=== PATIENT | female | born 1970 | race Caucasian/White ===

== ENCOUNTER 2017-08-01 19:48 | Emergency (ER) | payer SELFPAY ==
--- OUTSIDE RECORDS SUMMARY | 2017-08-01 19:52 | XMS REPORT ---
:1970 [facility] Address [address] [place] [address] Care Team Providers Name Role Phone UNKNOWN, REFFERING Primary Care Provider Unavailable Problems This patient has no known problems. Allergies, Adverse Reactions, Alerts This patient has no known allergies or adverse reactions. Medications This patient has no known medications. Encounters Start End Encounter Admission Attending Care Care Encounter Date/Time Date/Time Type Type Clinicians Facility Department ID 2017-07-02 2017-07-02 Emergency E [facility] MED [id number] 08:16:00 08:16:00
--- OUTSIDE RECORDS SUMMARY | 2017-08-01 19:52 | XMS REPORT | Clinical Summary ---
:1970 Author Organization [facility] Address [address] [place] [address] Phone Care Team Providers Name Role Phone Unavailable Primary Care Provider Unavailable Allergies No Known Allergies Current Medications Prescription Sig. Disp. Refills Start Date End Date Status ondansetron Take 1 tablet 30 tablet 0 07/06/2017 07/13/2017 (ZOFRAN-ODT) 8 MG (8 mg total) disintegrating tablet by mouth 2 (two) times daily as needed for Nausea for up to 7 days. famotidine (PEPCID) 40 Take 1 tablet 5 tablet 0 07/06/2017 07/11/2017 MG tablet (40 mg total) by mouth daily for 5 doses. Active Problems Not on file Encounters Date Type Specialty Care Team Description 07/06/2017 Emergency Emergency Medicine Jonathon Patel abdominal pain MD Dylan (Primary Dx);Nausea;Acute constipation;Acute superficial gastritis without hemorrhage after 07/31/2016 Social History Tobacco Use Types Packs/Day Years Used Date Current Every Day Smoker Alcohol Use Drinks/Week oz/Week Comments Yes Sex Assigned at Date Recorded Not on file Last Filed Vital Signs Vital Sign Reading Time Taken Blood Pressure 107/69 07/06/2017 8:54 AM CDT Pulse 53 07/06/2017 8:54 AM CDT Temperature 36.4 C (97.6 F) 07/06/2017 8:54 AM CDT Respiratory Rate 18 07/06/2017 8:54 AM CDT Oxygen Saturation 100% 07/06/2017 8:54 AM CDT Inhaled Oxygen Concentration - - Weight 47.6 kg (105 lb) 07/06/2017 4:13 AM CDT Height 160 cm (5' 3") 07/06/2017 4:13 AM CDT Body Mass Index 18.6 07/06/2017 4:13 AM CDT Plan of Treatment Not on file Results Not on fileafter 07/31/2016
--- OUTSIDE RECORDS SUMMARY | 2017-08-01 19:52 | XMS REPORT | Clinical Summary ---
:1970 Author Organization [facility] Address [address] [place] [address] Care Team Providers Name Role Phone Asked, No Pcp Primary Care Provider Unavailable Allergies No Known Allergies Current Medications Prescription Sig. Disp. Refills Start Date End Date Status ciprofloxacin (CIPRO) Take 1 tablet 14 tablet 0 07/11/2017 07/18/2017 500 MG tablet (500 mg total) by mouth 2 (two) times a day for 7 days. Active Problems Not on file Encounters Date Type Specialty Care Team Description 07/11/2017 Emergency Emergency Medicine Alexandru Hameed Acute UTI (Primary Dx ); MD Dameon Abdominal pain, unspecified abdominal location 07/06/2017 Emergency Emergency Medicine Vishal Brown Acute pain of right knee MD Luisito (Primary Dx) after 07/31/2016 Social History Tobacco Use Types Packs/Day Years Used Date Current Every Day Smoker Cigarettes 0.5 Smokeless Tobacco: Never Used Alcohol Use Drinks/Week oz/Week Comments No Sex Assigned at Date Recorded Not on file Last Filed Vital Signs Vital Sign Reading Time Taken Blood Pressure 119/65 07/11/2017 3:15 AM CDT Pulse 66 07/11/2017 3:15 AM CDT Temperature 36.8 C (98.2 F) 07/11/2017 1:28 AM CDT Respiratory Rate 18 07/11/2017 1:28 AM CDT Oxygen Saturation 100% 07/11/2017 3:15 AM CDT Inhaled Oxygen Concentration - - Weight - - Height 160 cm (5' 3") 07/11/2017 1:28 AM CDT Body Mass Index - - Plan of Treatment Health Maintenance Due Date Last Done Comments PAP SMEAR 1991 INFLUENZA VACCINE 11/02/[address] Renal Stone Protocol (07/11/2017 2:53 AM) Specimen Performing Laboratory [facility] [address] [place] [address] [facility] [address] RENAL STONE PROTOCOL CLINICAL INDICATION:llq abd pain TECHNIQUE: Multidetector CT examination of the abdomen and pelvis performed without intravenous contrast per renal stone protocol. CT imaging was performed with iterative reconstruction technique and/or automated exposure control to reduce radiation dose. COMPARISON:None. FINDINGS: Evaluation is significantly limited secondary to the lack of intravenous contrast and the paucity of intra-abdominal fat. LUNG BASES:Clear. LIVER:Normal. BILIARY:Normal. SPLEEN:Normal. PANCREAS:Normal. ADRENALS:Normal. KIDNEYS: No mass or hydronephrosis. GI:Large and small bowel are normal in caliber.There are no inflammatory changes.Appendix is visualized and without inflammation. There is a 6 mm metallic density within the lower abdomen that appears to be located within the cecum. VASCULAR:Unremarkable LYMPH NODES:No enlarged lymph nodes in the abdomen or pelvis. PELVIS:The urinary bladder is decompressed, limiting evaluation. The uterus is without abnormality. BONES:No acute osseous abnormalities. OTHER:There is no ascites or pneumoperitoneum. IMPRESSION: Please note that evaluation is limited secondary to the lack of intravenous contrast and the paucity of intra-abdominal fat. 1. No acute intra-abdominal abnormality is identified. 2.There is a 6 mm metallic density within the lower abdomen that appears to be located within the cecum, this is of unclear etiology and clinical significance. [facility]-[id number] Procedure Note Interface, Radiology Results Incoming - 07/11/2017 3:[address] RENAL STONE PROTOCOL CLINICAL INDICATION: llq abd pain TECHNIQUE: Multidetector CT examination of the abdomen and pelvis performed without intravenous contrast per renal stone protocol. CT imaging was performed with iterative reconstruction technique and/or automated exposure control to reduce radiation dose. COMPARISON: None. FINDINGS: Evaluation is significantly limited secondary to the lack of intravenous contrast and the paucity of intra-abdominal fat. LUNG BASES: Clear. LIVER: Normal. BILIARY: Normal. SPLEEN: Normal. PANCREAS: Normal. ADRENALS: Normal. KIDNEYS: No mass or hydronephrosis. GI: Large and small bowel are normal in caliber. There are no inflammatory changes. Appendix is visualized and without inflammation. There is a 6 mm metallic density within the lower abdomen that appears to be located within the cecum. VASCULAR: Unremarkable LYMPH NODES: No enlarged lymph nodes in the abdomen or pelvis. PELVIS: The urinary bladder is decompressed, limiting evaluation. The uterus is without abnormality. BONES: No acute osseous abnormalities. OTHER: There is no ascites or pneumoperitoneum. IMPRESSION: Please note that evaluation is limited secondary to the lack of intravenous contrast and the paucity of intra-abdominal fat. 1. No acute intra-abdominal abnormality is identified. 2.There is a 6 mm metallic density within the lower abdomen that appears to be located within the cecum, this is of unclear etiology and clinical significance. [facility]-[id number] hCG qualitative, urine screen (07/11/2017 2:29 AM) Component Value Ref Range hCG qualitative, urine NegativeComment: Sensitivity of HCG test: 25 mIU/mL Specimen Performing Laboratory Urine [facility] DEPARTMENT OF PATHOLOGY AND [facility] MEDICINE [address] [place] [id number] Urinalysis screen and microscopy, with reflex to culture (07/11/2017 1:57 AM) Component Value Ref Range Specimen site Random void Color, UA Red Appearance, UA Cloudy Specific gravity, UA 1.018 1.001 - 1.035 pH, UA 6.0 5.0 - 8.5 Protein, UA 1+ (A) Negative Glucose, UA Negative Negative Ketones, UA Negative Negative Bilirubin, UA Negative Negative Blood, UA Moderate (A) Negative Nitrite, UA Positive (A) Negative Urobilinogen, UA 2.0 (A) <2.0 Leukocyte esterase, UA Large (A) Negative Epithelial cells, UA 3 /HPF WBC, UA >180 (H) 0 - 4 /HPF RBC, UA 7 (H) 0 - 5 /HPF Bacteria, UA Many (A) None seen Yeast, UA None seen Yeast with pseudohyphae, UA None seen Specimen Performing Laboratory Urine [facility] DEPARTMENT OF PATHOLOGY AND GENOMIC MEDICINE [address] [place] [address] Gram stain (07/11/2017 1:57 AM) Component Value Ref Range Gram stain result Many WBC's Many Gram positive cocci in clusters Comment: Specimen Information Specimen Source: Urine Specimen Site: Random void Specimen Performing Laboratory Urine - Random void [facility] DEPARTMENT OF PATHOLOGY AND GENOMIC MEDICINE [address] [place] [phone] Urine culture (07/11/2017 1:57 AM) Component Value Ref Range Urine culture isolate Staphylococcus aureus 10-5 cfu/ml This organism is Methicillin Sensitive. (A) Comment: Specimen Information Specimen Source: Urine Specimen Site: Random void Specimen Performing Laboratory Urine - Random void [facility] DEPARTMENT OF PATHOLOGY AND GENOMIC MEDICINE [address] [place] [phone] Organism Antibiotic Method Susceptibility Staphylococcus aureus Ampicillin RAH mcg/mL: Resistant Staphylococcus aureus Clindamycin RAH <=0.5 mcg/mL: Susceptible Staphylococcus aureus Erythromycin RAH <=0.5 mcg/mL: Susceptible Staphylococcus aureus Nitrofurantoin RAH <=16 mcg/mL: Susceptible Staphylococcus aureus Levofloxacin RAH <=1 mcg/mL: Susceptible Staphylococcus aureus Linezolid RAH 2 mcg/mL: Susceptible Staphylococcus aureus Oxacillin RAH 0.5 mcg/mL: Susceptible Staphylococcus aureus Penicillin G RAH >1 mcg/mL: Resistant Staphylococcus aureus Rifampin RAH <=0.5 mcg/mL: Susceptible Staphylococcus aureus Trimethoprim/Sulfamethoxazol RAH <=0.5/9.5 mcg/mL: e Susceptible Staphylococcus aureus Tetracycline RAH <=0.5 mcg/mL: Susceptible Staphylococcus aureus Vancomycin RAH 1 mcg/mL: Susceptible XR Knee 1 Or 2 Vw Right (07/06/2017 2:34 AM) Specimen Performing Laboratory [facility] [address] [place] [id number] Narrative EXAM:XR KNEE 1 OR 2 VW RIGHT CLINICAL HISTORY:RECENT TRAUMAKNEE COMPARISON:None. IMPRESSION: 1.No evidence of acute displaced right knee fracture or dislocation. No significant joint effusion. Question of mild medial soft tissue swelling. [facility]-[id number] Procedure Note Interface, Radiology Results Incoming - 07/06/2017 2:38 AM CDT EXAM: XR KNEE 1 OR 2 VW RIGHT CLINICAL HISTORY: RECENT TRAUMA KNEE COMPARISON: None. IMPRESSION: 1. No evidence of acute displaced right knee fracture or dislocation. No significant joint effusion. Question of mild medial soft tissue swelling. [facility]-[id number] after 07/31/2016
[2017-08-01 21:40] LABS: Urine Blood 2+ (NEG); Urine Glucose NEGATIVE (NEG); Urine Protein NEGATIVE (NEG); Urine pH 5.5 (5.0-7.0)
[2017-08-01 23:04] LABS: Absolute Lymphocytes (CBC) 1.6 K/uL (0.7-4.9); Absolute Monocytes 0.7 K/uL (0.1-1.3); Absolute Neutrophil 6.8 K/uL (1.8-8.0); Basophils % 0.4 % (0-1.3); Eosinophils % 0.3 % (0-4.4); Hematocrit 33.7 % (36.0-45.0); Lymphocytes % 17.1 % (15.3-44.8); MPV 7.9 fL (7.6-11.3); Monocytes % 7.7 % (3.3-12.3); RBC Red Blood Cell Count 3.91 M/uL (3.86-4.86)
[2017-08-01 23:16] LABS: Bicarbonate 25 mEq/L (21-31); Glucose Level 98 mg/dL (65-120); Lipase 19 U/L (22-51); Sodium Level 135 mEq/L (135-145)
[2017-08-01 23:22] LABS: ALT/SGPT 19 IU/L (10-60); AST/SGOT 19 IU/L (10-42); Albumin 3.4 g/dL (3.2-5.5); Alkaline Phosphatase 43 IU/L (42-121); Amylase Level 53 U/L (28-100); BUN Blood Urea Nitrogen 11 mg/dL (6-20); Bilirubin Direct 0.1 mg/dL (0-0.2); Bilirubin Total 0.3 mg/dL (0.3-1.2)
--- NOTE | 2017-08-01 23:39 | EDPHYS ---
Physician Documentation [facility] Name: Dayami Espinosa Age: 47 yrs Sex: Female : 1970 Arrival Date: 08/01/2017 Time: 19:57 Bed 17 Private MD: ED Physician Derrek Martines HPI: 08/01 22:59 This 47 yrs old Female presents to ER via Ambulatory with complaints of kb Abdominal Pain. 22:59 The patient presents with abdominal pain in the left lower quadrant. Onset: The kb symptoms/episode began/occurred 4 month(s) ago. The symptoms do not radiate. Associated signs and symptoms: none. The symptoms are described as constant. Modifying factors: The symptoms are alleviated by nothing, the symptoms are aggravated by nothing. Severity of pain: At its worst the pain was mild moderate in the emergency department the pain is unchanged. The patient has not experienced similar symptoms in the past. The patient has been recently seen by a physician:. Pt states she has had LLQ pain for 4 months. Has been seen multiple times for this pain and told she had a cyst, but it hasn't gotten better. 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 - Social history:: Smoking status: Patient uses tobacco products, smokes one-half pack cigarettes per day. ROS: 22:59 Constitutional: Negative for fever, chills, and weight loss, Cardiovascular: Negative kb for chest pain, palpitations, and edema, Respiratory: Negative for shortness of breath, cough, wheezing, and pleuritic chest pain, Back: Negative for injury and pain, : Negative for injury, bleeding, discharge, and swelling, MS/Extremity: Negative for injury and deformity, Skin: Negative for injury, rash, and discoloration, Neuro: Negative for headache, weakness, numbness, tingling, and seizure. 22:59 Abdomen/GI: Positive for abdominal pain, Negative for nausea, vomiting, and diarrhea, constipation, abdominal cramps, abdominal distension, anorexia. Exam: 22:59 Constitutional: This is a well developed, well nourished patient who is awake, alert, kb and in no acute distress. Head/Face: Normocephalic, atraumatic. Chest/axilla: Normal chest wall appearance and motion. Nontender with no deformity. No lesions are appreciated. Cardiovascular: Regular rate and rhythm with a normal S1 and S2. No gallops, murmurs, or rubs. Normal PMI, no JVD. No pulse deficits. Respiratory: Lungs have equal breath sounds bilaterally, clear to auscultation and percussion. No rales, rhonchi or wheezes noted. No increased work of breathing, no retractions or nasal flaring. Abdomen/GI: Soft, non-tender, with normal bowel sounds. No distension or tympany. No guarding or rebound. No evidence of tenderness throughout. Back: No spinal tenderness. No costovertebral tenderness. Full range of motion. Skin: Warm, dry with normal turgor. Normal color with no rashes, no lesions, and no evidence of cellulitis. MS/ Extremity: Pulses equal, no cyanosis. Neurovascular intact. Full, normal range of motion. Neuro: Awake and alert, GCS 15, oriented to person, place, time, and situation. Cranial nerves II-XII grossly intact. Motor strength 5/5 in all extremities. Sensory grossly intact. Cerebellar exam normal. Normal gait. Vital Signs: 20:07 BP 103 / 74; Pulse 77; Resp 18; Temp 98.6; Pulse Ox 100% on R/A; Weight 46.72 kg; aa1 Height 5 ft. 3 in. (160.02 cm); Pain 9/10; 21:41 BP 110 / 73; Pulse 67; Resp 18; Pulse Ox 100% on R/A; mt 23:08 BP 100 / 66; Pulse 72; Resp 16; Pulse Ox 99% on R/A; mt 20:07 Body Mass Index 18.25 (46.72 kg, 160.02 cm) aa1 MDM: 22:36 Patient medically screened. kb 22:59 Data reviewed: vital signs, nurses notes. Data interpreted: Pulse oximetry: on room air kb is 100 %. Interpretation: normal. 23:38 Counseling: I had a detailed discussion with the patient and/or guardian regarding: the kb historical points, exam findings, and any diagnostic results supporting the discharge/admit diagnosis, lab results, the need for outpatient follow up, a family practitioner, to return to the emergency department if symptoms worsen or persist or if there are any questions or concerns that arise at home. 08/01 21:10 Order name: Urine Dipstick--Ancillary (enter results); Complete Time: 22:35 ak1 08/01 21:10 Order name: Urine --Ancillary (enter results); Complete Time: 22:35 ak1 08/01 22:35 Order name: Amylase, Serum; Complete Time: 23:37 kb 08/01 22:35 Order name: Basic Metabolic Panel; Complete Time: 23:37 kb 08/01 22:35 Order name: CBC with Diff; Complete Time: 23:12 kb 08/01 22:35 Order name: Hepatic Function; Complete Time: 23:37 kb 08/01 22:35 Order name: Lipase; Complete Time: 23:37 kb 08/01 22:35 Order name: IV Saline Lock; Complete Time: 22:53 kb 08/01 22:35 Order name: Labs collected and sent; Complete Time: 22:53 kb Administered Medications: No medications were administered Disposition: 08/02 00:13 Co-signature as Attending Physician, Derrek Martines MD. genaro Disposition: 08/01/17 23:38 Discharged to Home. Impression: Lower abdominal pain, unspecified. - Condition is Stable. - Discharge Instructions: Abdominal Pain, Adult, [id number]. - Medication Reconciliation Form, Thank You Letter, Antibiotic Education, Prescription Opioid Use form. - Follow up: Private Physician; When: 2 - 3 days; Reason: Recheck today's complaints, Continuance of care, Re-evaluation by your physician. Follow up: Emergency Department; When: As needed; Reason: Worsening of condition. Signatures: Dispatcher [employer] Basia Quigley, MARIELY GARCIA-Cecilia Lehman, RN RN aa1 Derrek Martines MD MD pkJesus Butler, RN RN bp
--- NOTE | 2017-08-01 23:39 | ER ---
Nurse's Notes [facility] Name: Dayami Espinosa Age: 47 yrs Sex: Female : 1970 Arrival Date: 08/01/2017 Time: 19:57 Bed 17 Private MD: Diagnosis: Lower abdominal pain, unspecified Presentation: 08/01 20:04 Presenting complaint: Patient states: lower abd pain for past several months. States, aa1 "It's been constant for months and I've just been fighting it.". Transition of care: patient was not received from another setting of care. Onset of symptoms was April 2017. Initial Sepsis Screen: Does the patient meet any 2 criteria? No. Patient's initial sepsis screen is negative. Does the patient have a suspected source of infection? No. Patient's initial sepsis screen is negative. Care prior to arrival: None. 20:04 Method Of Arrival: Ambulatory aa1 20:04 Acuity: JAZMIN 3 aa1 Triage Assessment: 20:07 General: Appears in no apparent distress. comfortable, Behavior is calm, cooperative, aa1 appropriate for age. 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 - Social history:: Smoking status: Patient uses tobacco products, smokes one-half pack cigarettes per day. Screenin:30 Abuse screen: Denies threats or abuse. Denies injuries from another. Nutritional bp screening: No deficits noted. Tuberculosis screening: No symptoms or risk factors identified. Fall Risk None identified. Assessment: 21:30 General: Appears in no apparent distress. comfortable, unkempt, Behavior is agitated, bp uncooperative, PT MINIMALLY COOPERATIVE, STATING SHE DOES NOT WANT VITALS OR OTHER ACTIVITIES, JUST TO SLEEP. Pain: Complains of pain in abdomen. Neuro: Level of Consciousness is awake, alert, obeys commands, Oriented to person, place, time, situation, Appropriate for age. Cardiovascular: No deficits noted. Respiratory: Airway is patent Respiratory effort is even, unlabored, Respiratory pattern is regular, symmetrical. GI: Bowel sounds present X 4 quads. Abd is soft X 4 quads. : No signs and/or symptoms were reported regarding the genitourinary system. EENT: No deficits noted. Derm: No deficits noted. Musculoskeletal: Circulation, motion, and sensation intact. Range of motion: intact in all extremities. 08/02 00:09 Reassessment: PT D/C HOME AMBULATORY, DX WITH NONSPECIFIC ABDOMINAL PAIN. bp Vital Signs: 08/01 20:07 BP 103 / 74; Pulse 77; Resp 18; Temp 98.6; Pulse Ox 100% on R/A; Weight 46.72 kg; aa1 Height 5 ft. 3 in. (160.02 cm); Pain 9/10; 21:41 BP 110 / 73; Pulse 67; Resp 18; Pulse Ox 100% on R/A; mt 23:08 BP 100 / 66; Pulse 72; Resp 16; Pulse Ox 99% on R/A; mt 20:07 Body Mass Index 18.25 (46.72 kg, 160.02 cm) aa1 ED Course: 19:57 Patient arrived in ED. al2 20:06 Triage completed. aa1 20:07 Arm band placed on left wrist. Patient placed in waiting room, Patient notified of wait aa1 time. 21:30 Jesus Durant, BENI is Primary Nurse. bp 21:30 Patient has correct armband on for positive identification. Bed in low position. Call bp light in reach. Side rails up X2. 22:35 Basia Lopez FNP-C is [facility] kb 22:35 Derrek Martines MD is Attending Physician. kb 22:53 Inserted saline lock: 20 gauge in right antecubital area, using aseptic technique. bp Blood collected. 08/02 00:09 No provider procedures requiring assistance completed. IV discontinued, intact, bp bleeding controlled, No redness/swelling at site. Pressure dressing applied. Administered Medications: No medications were administered Outcome: 08/01 23:38 Discharge ordered by . brie 08/02 00:10 Discharged to home ambulatory, with family. bp Condition: stable Discharge instructions given to patient, Instructed on discharge instructions, follow up and referral plans. Demonstrated understanding of instructions, follow-up care. 00:10 Patient left the ED. bp Signatures: Basia Lopez FNP-C SAUSAGE SMOKER-Ckb Cecilia Amezquita, RN RN aa1 Carolina Monet mt, Brian, RN RN bp Yoselin, Angeles reeder
== END 2017-08-02 00:10 | disposition home or self-care (01) ==
LOC: ER 19:48
DX: R10.32 Left lower quadrant pain (principal)
CPT/HCPCS: 36415; 80048; 80076; 81003; 81025; 82150; 83690; 85025; 99283

== ENCOUNTER 2017-08-05 16:03 | Emergency (ER) | payer SELFPAY ==
--- OUTSIDE RECORDS SUMMARY | 2017-08-05 16:05 | XMS REPORT | Clinical Summary ---
:1970 Author Organization [facility] Address [address] [place] [address] Care Team Providers Name Role Phone Asked, [...] right knee MD Luisito (Primary Dx) after 08/04/2016 Social History Tobacco Use Types Packs/Day Years [...] Protocol (07/11/2017 2:53 AM) Specimen Performing Laboratory [facility] [address] [place] [address] [facility] [address] RENAL STONE PROTOCOL CLINICAL INDICATION:llq abd [...] is of unclear etiology and clinical significance. [facility]-[id number] Procedure Note Interface, Radiology Results Incoming - [...] is of unclear etiology and clinical significance. [facility]-[id number] hCG qualitative, urine screen (07/11/2017 2:29 AM) Component Value Ref Range hCG qualitative, urine NegativeComment: Sensitivity of HCG test: 25 mIU/mL Specimen Performing Laboratory Urine [facility] DEPARTMENT OF PATHOLOGY AND [facility] MEDICINE [address] [place] [phone] Urinalysis screen and microscopy, with reflex to [...] UA None seen Specimen Performing Laboratory Urine [facility] DEPARTMENT OF PATHOLOGY AND GENOMIC MEDICINE [address] [place] [address] Gram stain (07/11/2017 1:57 AM) Component Value Ref Range Gram stain result Many WBC's Many Gram positive cocci in clusters Comment: Specimen Information Specimen Source: Urine Specimen Site: Random void Specimen Performing Laboratory Urine - Random void [facility] DEPARTMENT OF PATHOLOGY AND [facility] MEDICINE [address] [place] [address] Urine culture (07/11/2017 1:57 AM) Component Value Ref Range Urine culture isolate Staphylococcus aureus 10-5 cfu/ml This organism is Methicillin Sensitive. (A) Comment: Specimen Information Specimen Source: Urine Specimen Site: Random void Specimen Performing Laboratory Urine - Random void [facility] DEPARTMENT OF PATHOLOGY AND GENOMIC MEDICINE [address] [place] [address] Organism Antibiotic Method Susceptibility Staphylococcus aureus Ampicillin [...] (07/06/2017 2:34 AM) Specimen Performing Laboratory [facility] [address] [place] [address] Narrative EXAM:XR KNEE 1 OR 2 VW RIGHT CLINICAL HISTORY:RECENT TRAUMAKNEE COMPARISON:None. IMPRESSION: 1.No evidence of acute displaced right knee fracture or dislocation. No significant joint effusion. Question of mild medial soft tissue swelling. [facility]-[id number] Procedure Note [facility], Radiology Results Incoming - 07/06/2017 2:38 AM CDT EXAM: XR KNEE 1 OR 2 VW RIGHT CLINICAL HISTORY: RECENT TRAUMA KNEE COMPARISON: None. IMPRESSION: 1. No evidence of acute displaced right knee fracture or dislocation. No significant joint effusion. Question of mild medial soft tissue swelling. [facility]-[id number] after 08/04/2016
--- OUTSIDE RECORDS SUMMARY | 2017-08-05 16:05 | XMS REPORT | Clinical Summary ---
:1970 Author Organization [facility] Address [address] [place] [address] Phone Care Team Providers Name Role Phone [...] Dx);Nausea;Acute constipation;Acute superficial gastritis without hemorrhage after 08/04/2016 Social History Tobacco Use Types [...] Not on file Results Not on fileafter 08/04/2016
--- OUTSIDE RECORDS SUMMARY | 2017-08-05 16:05 | XMS REPORT ---
:1970 [facility] Address [address] [place] [address] [address] [place] [address] Care Team Providers Name Role Phone UNKNOWN, REFFERING Primary Care Provider Unavailable Problems This patient has no known problems. Allergies, Adverse Reactions, Alerts This patient has no known allergies or adverse reactions. Medications This patient has no known medications. Encounters Start End Encounter Admission Attending Care Care Encounter Date/Time Date/Time Type Type Clinicians Facility Department ID 2017-07-02 2017-07-02 Emergency E [facility] MED [id number] 08:16:00 08:16:00
[2017-08-05 16:51] LABS: Urine Blood 2+ (NEG); Urine Glucose NEGATIVE (NEG); Urine Protein TRACE (NEG)
[2017-08-05 17:30] LABS: Absolute Monocytes 0.6 K/uL (0.1-1.3); Basophils % 0.3 % (0-1.3); Eosinophils % 0.5 % (0-4.4); Hematocrit 35.3 % (36.0-45.0); Lymphocytes % 20.4 % (15.3-44.8); MCH 27.9 pg (27.0-35.0); MCV 85.7 fL (80-100); MPV 8.3 fL (7.6-11.3); Monocytes % 6.7 % (3.3-12.3); RBC Red Blood Cell Count 4.12 M/uL (3.86-4.86)
[2017-08-05 17:32] LABS: Barbiturates NEGATIVE; Benzodiazepines NEGATIVE; Cocaine NEGATIVE; METHAMPHETAM NEGATIVE; Opiates NEGATIVE; Phencyclidine NEGATIVE; THC Cannibis NEGATIVE
[2017-08-05 17:40] LABS: Urine Bacteria <20 /HPF (<20); Urine Culture Reflex Order NOT NEEDED
[2017-08-05 17:45] LABS: Bicarbonate 26 mEq/L (21-31); Glucose Level 107 mg/dL (65-120); Lipase 20 U/L (22-51); Potassium 3.6 mEq/L (3.6-5.0); Sodium Level 135 mEq/L (135-145)
[2017-08-05 17:51] LABS: ALT/SGPT 19 IU/L (10-60); AST/SGOT 17 IU/L (10-42); Albumin 3.6 g/dL (3.2-5.5); Alkaline Phosphatase 43 IU/L (42-121); BUN Blood Urea Nitrogen 18 mg/dL (6-20); Bilirubin Direct 0.1 mg/dL (0-0.2); Bilirubin Total 0.8 mg/dL (0.3-1.2); Protein, Total 6.3 g/dL (6.0-8.3)
--- NOTE | 2017-08-05 17:52 | RAD REPORT ---
EXAM DESCRIPTION: CTAbdomen Pelvis W Contrast - 08/05/2017 5:28 pm CLINICAL HISTORY: Abdominal pain. Left lower quadrant pain COMPARISON: 12/06/2016 TECHNIQUE: Biphasic CT imaging of the abdomen and pelvis was performed with 100 ml non-ionic IV cont rast. All CT scans are performed using dose optimization technique as appropriate and may include automated exposure control or mA/KV adjustment according to patient size. FINDINGS: The lung bases are clear.Mild thickening of the distal stomach wall is noted, similar to c omparative study. The liver, spleen, pancreas, adrenal glands and kidneys are within normal limits. No bowel obstruction, free air, free fluid or abscess. The appendix is poorly visualized however no secondary findings of appendicitis seen. No evidence of significant lymphadenopathy. No suspicious bony findings. Mild free fluid is seen in the pelvis. 4.4 cm right ovarian cyst noted. IMPRESSION: Mild pelvic free fluid. 4.4 cm right ovarian cyst.
--- NOTE | 2017-08-05 18:03 | EDPHYS ---
Physician Documentation [facility] Name: Dayami Espinosa Age: 47 yrs Sex: Female : 1970 Arrival Date: 08/05/2017 Time: 16:07 Bed 16 Private MD: ED Physician Clinton Esquivel HPI: 08/05 17:54 This 47 yrs old Female presents to ER via EMS with complaints of Abdominal wa Pain. 17:54 The patient presents with pelvic pain, that is located in/on the left lower quadrant, wa the pain is described as moderate, sharp. Onset: The symptoms/episode began/occurred 3 month(s) ago. Modifying factors: The symptoms are alleviated by nothing, the symptoms are aggravated by nothing. Associated signs and symptoms: Pertinent positives: nausea, Pertinent negatives: constipation, cramping, diarrhea, dysuria, fever, vomiting. Severity of symptoms: At their worst the symptoms were moderate, in the emergency department the symptoms are unchanged. The patient has experienced similar episodes in the past, a few times. The patient has been recently seen by a physician: seen at OSH and told has ovarian cyst. states needs second opinion plus pain is worse. 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 - Social history:: Smoking status: Patient uses tobacco products, smokes one-half pack cigarettes per day. - Family history:: not pertinent. - Hospitalizations: : No recent hospitalization is reported. ROS: 17:56 Positive for pelvic pain, of the left adnexal area. wa 17:56 Constitutional: Negative for fever, chills, and weight loss, Eyes: Negative for injury, pain, redness, and discharge, ENT: Negative for injury, pain, and discharge, Neck: Negative for injury, pain, and swelling, Cardiovascular: Negative for chest pain, palpitations, and edema, Respiratory: Negative for shortness of breath, cough, wheezing, and pleuritic chest pain, Back: Negative for injury and pain, MS/Extremity: Negative for injury and deformity, Skin: Negative for injury, rash, and discoloration, Neuro: Negative for headache, weakness, numbness, tingling, and seizure. 17:56 Abdomen/GI: Positive for abdominal pain, of the left lower quadrant. 17:56 All other systems are negative. Exam: 17:57 Constitutional: This is a well developed, well nourished patient who is awake, alert, wa and in no acute distress. Head/Face: Normocephalic, atraumatic. Eyes: Pupils equal round and reactive to light, extra-ocular motions intact. Lids and lashes normal. Conjunctiva and sclera are non-icteric and not injected. Cornea within normal limits. Periorbital areas with no swelling, redness, or edema. ENT: Nares patent. No nasal discharge, no septal abnormalities noted. Tympanic membranes are normal and external auditory canals are clear. Oropharynx with no redness, swelling, or masses, exudates, or evidence of obstruction, uvula midline. Mucous membranes moist. Neck: Trachea midline, no thyromegaly or masses palpated, and no cervical lymphadenopathy. Supple, full range of motion without nuchal rigidity, or vertebral point tenderness. No Meningismus. Cardiovascular: Regular rate and rhythm with a normal S1 and S2. No gallops, murmurs, or rubs. Normal PMI, no JVD. No pulse deficits. Respiratory: Lungs have equal breath sounds bilaterally, clear to auscultation and percussion. No rales, rhonchi or wheezes noted. No increased work of breathing, no retractions or nasal flaring. Back: No spinal tenderness. No costovertebral tenderness. Full range of motion. Skin: Warm, dry with normal turgor. Normal color with no rashes, no lesions, and no evidence of cellulitis. MS/ Extremity: Pulses equal, no cyanosis. Neurovascular intact. Full, normal range of motion. Neuro: Awake and alert, GCS 15, oriented to person, place, time, and situation. Cranial nerves II-XII grossly intact. Motor strength 5/5 in all extremities. Sensory grossly intact. Cerebellar exam normal. Normal gait. Psych: Awake, alert, with orientation to person, place and time. Behavior, mood, and affect are within normal limits. 17:57 Abdomen/GI: Inspection: abdomen appears normal, Bowel sounds: normal, in all quadrants, Palpation: soft, in all quadrants, mild abdominal tenderness, in the L adnexa. no massess. 17:57 : CVA tenderness, is absent, Pelvic Exam: is not necessary for this patient. Vital Signs: 16:14 BP 129 / 73; Pulse 83; Resp 18; Temp 99.1(TE); Pulse Ox 98% on R/A; Weight 47.63 kg; ph Height 5 ft. 3 in. (160.02 cm); Pain 10/10; 17:25 BP 124 / 75; Pulse 76; Resp 18; Pulse Ox 98% on R/A; ph 16:14 Body Mass Index 18.60 (47.63 kg, 160.02 cm) ph MDM: 16:23 Patient medically screened. wa 17:58 Differential diagnosis: on-going x several months. received US at OSH. will CT and wa reassess. Data reviewed: vital signs, nurses notes. Test interpretation: by ED physician or midlevel provider: labs noted wnl. CT shows small pelvic fluid. no findings in L adnexa to explain the pain. Response to treatment: the patient's symptoms have markedly improved after treatment. 08/05 16:50 Order name: Urine Dipstick--Ancillary (enter results) 08/05 16:50 Order name: Urine --Ancillary (enter results); Complete Time: 17:54 08/05 16:51 Order name: Basic Metabolic Panel; Complete Time: 17:54 ks 08/05 16:51 Order name: CBC with Diff 08/05 16:51 Order name: Hepatic Function; Complete Time: 17:54 08/05 16:51 Order name: Lipase 08/05 16:51 Order name: Urine Test (obtain specimen); Complete Time: 18:54 08/05 16:51 Order name: Urine Microscopic Only; Complete Time: 18:06 08/05 16:51 Order name: IV Saline Lock; Complete Time: 18:54 ks 08/05 16:51 Order name: Labs collected and sent; Complete Time: 18:54 08/05 16:51 Order name: Urine Dipstick-Ancillary (obtain specimen); Complete Time: 18:57 08/05 16:51 Order name: Urine Drug Screen; Complete Time: 17:54 08/05 16:52 Order name: CT Abd/Pelvis - W/Contrast; Complete Time: 17:53 wa Administered Medications: 18:54 Drug: traMADol 50 mg Route: PO; ph 18:57 Follow up: Response: No adverse reaction ph Disposition: 08/05/17 18:02 Discharged to Home. Impression: subacute left side pelvic pain. - Condition is Stable. - Prescriptions for Tramadol 50 mg Oral Tablet - take 1 tablet by ORAL route every 8 hours as needed; 12 tablet. Ibuprofen 600 mg Oral Tablet - take 1 tablet by ORAL route every 8 hours As needed take with food; 20 tablet. - Medication Reconciliation Form, Thank You Letter, Antibiotic Education, Prescription Opioid Use form. - Follow up: Private Physician; When: 2 - 3 days; Reason: Recheck today's complaints. - Problem is new. - Symptoms have improved. - Notes: follow up with your doctor for further evaluation Signatures: Dispatcher [employer] Shelbie Reddy RN RN ph [facility] wa Corrections: (The following items were deleted from the chart) 19:07 18:02 08/05/2017 18:02 Discharged to Home. Impression: subacute left side pelvic pain. ph Condition is Stable. Forms are Medication Reconciliation Form, Thank You Letter, Antibiotic Education, Prescription Opioid Use. Follow up: Private Physician; When: 2 - 3 days; Reason: Recheck today's complaints. Problem is new. Symptoms have improved. wa
--- NOTE | 2017-08-05 18:03 | ER ---
Nurse's Notes [facility] Name: Dayami Espinosa Age: 47 yrs Sex: Female : 1970 Arrival Date: 08/05/2017 Time: 16:07 Bed 16 Private MD: Diagnosis: subacute left side pelvic pain Presentation: 08/05 16:09 Presenting complaint: EMS states: C/O LLQ pain, seen at [facility] this morning, dx ph w/ ruptured ovarian cyst. Transition of care: patient was not received from another setting of care. Onset of symptoms was August 05, 2017. Initial Sepsis Screen: Does the patient meet any 2 criteria? No. Patient's initial sepsis screen is negative. Does the patient have a suspected source of infection? No. Patient's initial sepsis screen is negative. Care prior to arrival: None. 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 - Social history:: Smoking status: Patient uses tobacco products, smokes one-half pack cigarettes per day. - Family history:: not pertinent. - Hospitalizations: : No recent hospitalization is reported. Screenin:18 Abuse screen: Denies threats or abuse. Denies injuries from another. Nutritional ph screening: No deficits noted. Tuberculosis screening: No symptoms or risk factors identified. Fall Risk None identified. Assessment: 16:45 General: Appears in no apparent distress. comfortable, slender, Behavior is ph cooperative, appropriate for age, anxious, Denies fever. Pain: Complains of pain in left lower quadrant Pain does not radiate. Pain currently is 10 out of 10 on a pain scale. Neuro: Level of Consciousness is awake, alert, obeys commands, Oriented to person, place, time, situation. Cardiovascular: Capillary refill < 3 seconds Patient's skin is warm and dry. Respiratory: Airway is patent Respiratory effort is even, unlabored, Respiratory pattern is regular, symmetrical. GI: Abdomen is flat, non-distended, Bowel sounds present X 4 quads. Abd is soft X 4 quads Abdomen is tender to palpation in left lower quadrant Reports lower abdominal pain, nausea, vomiting. : Reports pain in left in suprapubic area. Derm: Skin is intact, Skin is pink, warm \\T\\ dry. Musculoskeletal: Circulation, motion, and sensation intact. Range of motion: intact in all extremities. Vital Signs: 16:14 BP 129 / 73; Pulse 83; Resp 18; Temp 99.1(TE); Pulse Ox 98% on R/A; Weight 47.63 kg; ph Height 5 ft. 3 in. (160.02 cm); Pain 10/10; 17:25 BP 124 / 75; Pulse 76; Resp 18; Pulse Ox 98% on R/A; ph 16:14 Body Mass Index 18.60 (47.63 kg, 160.02 cm) ph ED Course: 16:07 Patient arrived in ED. ph 16:13 Triage completed. ph 16:18 Arm band placed on. ph 16:19 Patient has correct armband on for positive identification. Placed in gown. Bed in low ph position. Call light in reach. Side rails up X 1. Pulse ox on. NIBP on. Warm blanket given. 16:22 Cilnton Esquivel MD is Attending Physician. wa 16:45 Shelbie Robles, RN is Primary Nurse. ph 16:48 Patient has correct armband on for positive identification. Bed in low position. Call mh5 light in reach. Side rails up X 1. Warm blanket given. Pulse ox on. NIBP on. 16:50 No provider procedures requiring assistance completed. ph 16:56 Radiology exam delayed due to lab results not completed at this time. (BUN/Creatinine). vr 17:15 Radiology exam delayed due to IV insertion attempt and/or patient not having vr appropriate IV at this time. 17:[address] nj 17:24 Initial lab(s) drawn, by me, sent to lab. Inserted saline lock: 20 gauge in right ph antecubital area, using aseptic technique. Blood collected. 17:26 CT completed. Patient moved back from IA. nj 17:28 CT Abd/Pelvis - W/Contrast In Process Unspecified. EDMS 18:56 IV discontinued, intact, bleeding controlled, No redness/swelling at site. Pressure ph dressing applied. Administered Medications: 18:54 Drug: traMADol 50 mg Route: PO; ph 18:57 Follow up: Response: No adverse reaction ph Outcome: 18:02 Discharge ordered by . wa 18:56 Discharged to home ambulatory. ph 18:56 Condition: good 18:56 Discharge instructions given to patient, Instructed on discharge instructions, follow up and referral plans. medication usage, Demonstrated understanding of instructions, follow-up care, medications, Prescriptions given X 2. 19:07 Patient left the ED. ph Signatures: Dispatcher [employer] Renee Ivory Patricia, RN RN ph Nikos, Mica Tomas 5 Clinton Esquivel MD MD wa
[2017-08-05] MEDS ORDERED: TRAMADOL HCL 50 MG TAB ONE (18:50)
== END 2017-08-05 19:07 | disposition home or self-care (01) ==
LOC: ER 16:03
DX: R10.2 Pelvic and perineal pain (principal); F17.210 Nicotine dependence, cigarettes, uncomplicated
CPT/HCPCS: 36415; 74177; 80048; 80076; 80307; 81003; 81015; 81025; 83690; 85025; 99284; Q9967

== ENCOUNTER 2017-08-18 06:57 | Emergency (ER) | payer SELFPAY ==
--- OUTSIDE RECORDS SUMMARY | 2017-08-18 06:59 | XMS REPORT | Clinical Summary ---
:1970 Author Organization [facility] Address [address] [place] [address] Phone Care Team Providers Name Role Phone [...] Dx);Nausea;Acute constipation;Acute superficial gastritis without hemorrhage after 08/17/2016 Social History Tobacco Use Types Packs/Day Years [...] Not on file Results Not on fileafter 08/17/2016
--- OUTSIDE RECORDS SUMMARY | 2017-08-18 06:59 | XMS REPORT | Clinical Summary ---
:1970 Author Organization [facility] Address [address] [place] [address] Care Team Providers Name Role Phone Asked, [...] right knee MD Luisito (Primary Dx) after 08/17/2016 Social History Tobacco Use Types [...] Health Maintenance Due Date Last Done Comments CERVICAL CANCER SCREENING 1990 INFLUENZA VACCINE 11/02/[address] Renal Stone Protocol (07/11/2017 2:53 AM) Specimen Performing Laboratory [facility] [address] [place] [address] [facility] [address] RENAL STONE PROTOCOL CLINICAL INDICATION:llq [...] is of unclear etiology and clinical significance. [facility]-[id number] Procedure Note Interface, Radiology Results Incoming - [...] is of unclear etiology and clinical significance. [facility]-[id number] hCG qualitative, urine screen (07/11/2017 2:29 AM) Component Value Ref Range hCG qualitative, urine NegativeComment: Sensitivity of HCG test: 25 mIU/mL Specimen Performing Laboratory Urine [facility] DEPARTMENT OF PATHOLOGY AND [facility] [address] [place] [id number] Urinalysis screen and microscopy, with reflex to [...] UA None seen Specimen Performing Laboratory Urine [facility] DEPARTMENT OF PATHOLOGY AND GENOMIC MEDICINE [address] [place] [id number] Gram stain (07/11/2017 1:57 AM) Component Value Ref Range Gram stain result Many WBC's Many Gram positive cocci in clusters Comment: Specimen Information Specimen Source: Urine Specimen Site: Random void Specimen Performing Laboratory Urine - Random void [facility] DEPARTMENT OF PATHOLOGY AND [facility] [address] [place] [id number] Urine culture (07/11/2017 1:57 AM) Component Value Ref Range Urine culture isolate Staphylococcus aureus 10-5 cfu/ml This organism is Methicillin Sensitive. (A) Comment: Specimen Information Specimen Source: Urine Specimen Site: Random void Specimen Performing Laboratory Urine - Random void [facility] DEPARTMENT OF PATHOLOGY AND GENOMIC MEDICINE [address] [place] [id number] Organism Antibiotic Method Susceptibility Staphylococcus aureus Ampicillin [...] (07/06/2017 2:34 AM) Specimen Performing Laboratory [facility] [address] [place] [id number] Narrative EXAM:XR KNEE 1 OR 2 VW RIGHT CLINICAL HISTORY:RECENT TRAUMAKNEE COMPARISON:None. IMPRESSION: 1.No evidence of acute displaced right knee fracture or dislocation. No significant joint effusion. Question of mild medial soft tissue swelling. [facility]-[id number] Procedure Note [facility], Radiology Results Incoming - 07/06/2017 2:38 AM CDT EXAM: XR KNEE 1 OR 2 VW RIGHT CLINICAL HISTORY: RECENT TRAUMA KNEE COMPARISON: None. IMPRESSION: 1. No evidence of acute displaced right knee fracture or dislocation. No significant joint effusion. Question of mild medial soft tissue swelling. [facility]-[id number] after 08/17/2016
--- OUTSIDE RECORDS SUMMARY | 2017-08-18 06:59 | XMS REPORT ---
:1970 [facility] Address [address] [place] [address] Care Team Providers Name Role Phone UNKNOWN, REFFERING Primary Care Provider Unavailable Problems This patient has no known problems. Allergies, Adverse Reactions, Alerts This patient has no known allergies or adverse reactions. Medications This patient has no known medications. Encounters Start End Encounter Admission Attending Care Care Encounter Date/Time Date/Time Type Type Clinicians Facility Department ID 2017-07-02 2017-07-02 Emergency E [facility] MED [id number] 08:16:00 08:16:00
[2017-08-18] MEDS ORDERED: KETOROLAC 30 MG/ML INJ ONE (07:18)
[2017-08-18 08:25] LABS: Absolute Lymphocytes (CBC) 2.3 K/uL (0.7-4.9); Absolute Monocytes 0.8 K/uL (0.1-1.3); Absolute Neutrophil 7.2 K/uL (1.8-8.0); Basophils % 0.3 % (0-1.3); Eosinophils % 1.6 % (0-4.4); Hematocrit 38.7 % (36.0-45.0); Lymphocytes % 21.9 % (15.3-44.8); MCH 28.2 pg (27.0-35.0); MCV 85.7 fL (80-100); Monocytes % 7.6 % (3.3-12.3); RBC Red Blood Cell Count 4.52 M/uL (3.86-4.86)
[2017-08-18 08:40] LABS: Bicarbonate 26 mEq/L (21-31); Glucose Level 94 mg/dL (65-120); Lipase 36 U/L (22-51); Potassium 3.9 mEq/L (3.6-5.0); Sodium Level 136 mEq/L (135-145)
[2017-08-18 08:46] LABS: ALT/SGPT 19 IU/L (10-60); AST/SGOT 23 IU/L (10-42); Albumin 3.8 g/dL (3.2-5.5); Alkaline Phosphatase 46 IU/L (42-121); BUN Blood Urea Nitrogen 16 mg/dL (6-20); Bilirubin Direct 0.1 mg/dL (0-0.2); Bilirubin Total 0.5 mg/dL (0.3-1.2); Protein, Total 6.4 g/dL (6.0-8.3)
[2017-08-18 08:51] LABS: Urine Blood TRACE (NEG); Urine Glucose NEGATIVE (NEG); Urine Protein NEGATIVE (NEG); Urine Specific Gravity 1.015 (1.005-1.030); Urine pH 6.5 (5.0-7.0)
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
--- NOTE | 2017-08-18 08:53 | ER ---
Nurse's Notes [facility] Name: Dayami Espinosa Age: 47 yrs Sex: Female : 1970 Arrival Date: 08/18/2017 Time: 06:58 Bed 6 Private MD: Diagnosis: Unspecified abdominal pain Presentation: 08/18 06:58 Presenting complaint: Patient states: lower right abd pain. pt stated it is a ruptured ak1 ovarian cyst. Transition of care: patient was not received from another setting of care. Onset of symptoms is unknown. Initial Sepsis Screen: Does the patient meet any 2 criteria? No. Patient's initial sepsis screen is negative. Does the patient have a suspected source of infection? No. Patient's initial sepsis screen is negative. Care prior to arrival: None. 06:58 Method Of Arrival: EMS: [facility] ak 06:58 Acuity: JAZMIN 4 ak1 Triage Assessment: 06:59 General: Appears in no apparent distress. Behavior is uncooperative, rude. Pain: ak1 Complains of pain in right lower quadrant. EENT: No signs and/or symptoms were reported regarding the EENT system. Neuro: No deficits noted. Cardiovascular: No deficits noted. Respiratory: No deficits noted. GI: Reports lower abdominal pain. : No signs and/or symptoms were reported regarding the genitourinary system. Derm: No signs and/or symptoms reported regarding the dermatologic system. Musculoskeletal: No signs and/or symptoms reported regarding the musculoskeletal system. [employer] [address] POLICE OFFICER: 06:59 unknown ak1 Historical: - Allergies: 06:59 pt states she doesn't know, but a lot of drugs make her "high"; ak1 - Home Meds: 06:59 None [Active]; ak1 - PMHx: 06:59 Anemia; Bipolar disorder; Ovarian cyst; ak1 - PSHx: 06:59 brain sx; ak1 - Immunization history:: Adult Immunizations unknown. - Social history:: Smoking status: Patient uses tobacco products, smokes one pack cigarettes per day. Screenin:02 Abuse screen: Denies threats or abuse. Denies injuries from another. Nutritional ak1 screening: No deficits noted. Tuberculosis screening: No symptoms or risk factors identified. Fall Risk None identified. Assessment: 07:21 General: Appears in no apparent distress. Behavior is uncooperative, "i can be a bitch, tw2 you dont know me, but i just need something for the pain". General: Appears slender. Pain: Complains of pain in right lower quadrant. Neuro: Level of Consciousness is awake, alert, obeys commands, Oriented to person, place, time, situation. Cardiovascular: Denies chest pain, shortness of breath, Heart tones S1 S2 Capillary refill < 3 seconds Patient's skin is warm and dry. Respiratory: Airway is patent Respiratory effort is even, unlabored, Respiratory pattern is regular, symmetrical, Breath sounds are clear bilaterally. GI: Abdomen is flat, Bowel sounds present X 4 quads. Abd is soft X 4 quads Reports lower abdominal pain. : No signs and/or symptoms were reported regarding the genitourinary system. EENT: No signs and/or symptoms were reported regarding the EENT system. Derm: No signs and/or symptoms reported regarding the dermatologic system. Skin is intact, is healthy with good turgor, Skin temperature is warm. Musculoskeletal: Range of motion: intact in all extremities. 08:27 Reassessment: Patient appears in no apparent distress at this time. Patient and/or tw2 family updated on plan of care and expected duration. Pain level reassessed. Patient is alert, oriented x 3, equal unlabored respirations, skin warm/dry/pink. "cant yall just leave me the fuck alone, i dont feel good and i want to sleep". 09:35 Reassessment: Patient appears in no apparent distress at this time. Patient and/or tw2 family updated on plan of care and expected duration. Pain level reassessed. Patient is alert, oriented x 3, equal unlabored respirations, skin warm/dry/pink. Vital Signs: 06:59 BP 150 / 88; Pulse 72; Resp 18; Temp 98; Pulse Ox 99% on R/A; Weight 47.63 kg (R); ak1 Height 5 ft. 3 in. (160.02 cm) (R); Pain 10/10; 09:51 BP 142 / 76; Pulse 77; Resp 17; Pulse Ox 99% on R/A; Pain 7/10; tw2 06:59 Body Mass Index 18.60 (47.63 kg, 160.02 cm) ak1 ED Course: 06:58 Patient arrived in ED. ak1 06:59 Ming Fontenot NP is PHCP. pm1 06:59 Darrell Mc MD is Attending Physician. pm1 06:59 Triage completed. ak1 06:59 Arm band placed on Patient placed in an exam room, on a stretcher, on pulse oximetry, ak1 Patient notified of wait time. 07:02 Patient has correct armband on for positive identification. Bed in low position. Call ak1 light in reach. Side rails up X 1. Pulse ox on. NIBP on. 07:15 Joyce Rowe RN is Primary Nurse. tw2 07:15 No provider procedures requiring assistance completed. Missed attempt(s): 22 gauge in tw2 right antecubital area. blood collected, pt stated "i told them every fucking time not to put the damn iv there, just give me a shot for the pain", provider notified.. 07:55 Inserted saline lock: 22 gauge in right forearm, using aseptic technique. ,using tw2 aseptic technique. per Danielito Bradlye Blood collected. 09:35 IV discontinued, intact, bleeding controlled, No redness/swelling at site. Pressure tw2 dressing applied. 11:37 Attending Physician role handed off by Darrell Mc MD ag Administered Medications: 07:16 CANCELLED (provider vo): TORadol 30 mg IVP once tw2 07:21 Drug: TORadol 60 mg Route: IM; Site: right gluteus; tw2 08:20 Follow up: Response: No adverse reaction; Pain is decreased tw2 Outcome: 08:52 Discharge ordered by . pm1 09:35 Discharged to home via wheelchair. tw2 09:35 Condition: stable 09:35 Discharge instructions given to patient, Instructed on discharge instructions, follow up and referral plans. Demonstrated understanding of instructions, follow-up care. 09:37 Patient left the ED. tw2 11:38 Patient left the ED. ag Signatures: Mirna Das Amber RN RN ak1 Ming Fontenot, BUD HOLLOW HANDLE BENCH WORKER pm1 Joyce Rowe RN RN tw2
== END 2017-08-18 11:38 | disposition home or self-care (01) ==
LOC: ER 06:57
DX: R10.32 Left lower quadrant pain (principal); F17.210 Nicotine dependence, cigarettes, uncomplicated
CPT/HCPCS: 36415; 80048; 80076; 81003; 81025; 83690; 85025; 96372; 99284

== ENCOUNTER 2017-08-28 01:03 | Emergency (ER) | payer SELFPAY ==
--- OUTSIDE RECORDS SUMMARY | 2017-08-28 01:05 | XMS REPORT | Clinical Summary ---
:1970 [address] [facility] [place], [place] Address [address] [place] [address] Phone Care Team Providers Name Role Phone [...] Dx);Nausea;Acute constipation;Acute superficial gastritis without hemorrhage after 08/27/2016 Social History Tobacco Use Types Packs/Day Years [...] Not on file Results Not on fileafter 08/27/2016
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
--- OUTSIDE RECORDS SUMMARY | 2017-08-28 01:05 | XMS REPORT ---
:1970 [facility] Address [address] [place] [address] Care Team Providers Name Role Phone UNKNOWN, REFFERING Primary Care Provider Unavailable Problems This patient has no known problems. Allergies, Adverse Reactions, Alerts This patient has no known allergies or adverse reactions. Medications This patient has no known medications. Encounters Start End Encounter Admission Attending Care Care Encounter Date/Time Date/Time Type Type Clinicians Facility Department ID 2017-07-02 2017-07-02 Emergency E [facility] MED [id number] 08:16:00 08:16:00
[2017-08-28] MEDS ORDERED: ONDANSETRON 4 MG/2 ML VIAL ONE (03:08)
[2017-08-28] MEDS ORDERED: NA CHLORIDE 0.9% 1,000 ML ONE (03:08)
[2017-08-28] MEDS ORDERED: FAMOTIDINE 20 MG/2 ML VIAL IV ONE (03:09)
[2017-08-28 03:59] LABS: Absolute Lymphocytes (CBC) 1.8 K/uL (0.7-4.9); Absolute Monocytes 0.6 K/uL (0.1-1.3); Absolute Neutrophil 8.5 K/uL (1.8-8.0); Basophils % 0.4 % (0-1.3); Eosinophils % 0.8 % (0-4.4); Hematocrit 37.2 % (36.0-45.0); Lymphocytes % 16.3 % (15.3-44.8); MCH 27.4 pg (27.0-35.0); MCV 85.4 fL (80-100); MPV 8.4 fL (7.6-11.3); Monocytes % 5.2 % (3.3-12.3); RBC Red Blood Cell Count 4.36 M/uL (3.86-4.86)
[2017-08-28 04:03] LABS: Protime INR 1.12
[2017-08-28 04:20] LABS: Barbiturates NEGATIVE; Benzodiazepines NEGATIVE; Cocaine NEGATIVE; METHAMPHETAM NEGATIVE (NEGATIVE); Opiates NEGATIVE; Phencyclidine NEGATIVE; THC Cannibis NEGATIVE
[2017-08-28 04:30] LABS: Bicarbonate 23 mEq/L (21-31); Glucose Level 128 mg/dL (65-120); Lipase 29 U/L (22-51); Potassium 3.6 mEq/L (3.6-5.0); Sodium Level 136 mEq/L (135-145)
[2017-08-28 04:36] LABS: ALT/SGPT 16 IU/L (10-60); AST/SGOT 17 IU/L (10-42); Albumin 3.8 g/dL (3.2-5.5); Alkaline Phosphatase 42 IU/L (42-121); BUN Blood Urea Nitrogen 12 mg/dL (6-20); Bilirubin Direct 0.1 mg/dL (0-0.2); Creatine Phosphokinase 154 IU/L (22-269); Magnesium 1.8 mg/dL (1.8-2.5); Protein, Total 6.3 g/dL (6.0-8.3)
[2017-08-28 04:37] LABS: CKMB Creatine Kinase MB 5.2 ng/ml (0.3-4.0)
[2017-08-28 04:38] LABS: Alcohol Serum/Plasma < 10 mg/dl
[2017-08-28 04:53] LABS: Urine Blood TRACE (NEG); Urine Glucose NEGATIVE (NEG); Urine Protein NEGATIVE (NEG); Urine Specific Gravity >1.030 (1.005-1.030)
--- NOTE | 2017-08-28 05:27 | ER ---
Nurse's Notes [facility] Name: Dayami Espinosa Age: 47 yrs Sex: Female : 1970 Arrival Date: 08/28/2017 Time: 01:03 Bed 18 Private MD: None, None Diagnosis: Vomiting;Abdominal tenderness-enteritis, distal small bowel ;Nausea Presentation: 08/28 01:22 Presenting complaint: Patient states: c/o nausea and dizziness. vomited x 2 yesterday. fc denies diarrhea. last BM yesterday. c/o LLQ and LRQ generalized pain and tenderness. Has not eaten today. Transition of care: patient was not received from another setting of care. Onset of symptoms was August 26, 2017. Risk Assessment: Do you want to hurt yourself or someone else? Patient reports no desire to harm self or others. Initial Sepsis Screen: Does the patient meet any 2 criteria? No. Patient's initial sepsis screen is negative. Care prior to arrival: None. 01:22 Method Of Arrival: EMS: [facility] 01:22 Acuity: JAZMIN 4 fc Triage Assessment: 01:25 General: Appears in no apparent distress. Behavior is calm, cooperative. Pain: fc Complains of pain in right lower quadrant and left lower quadrant Pain does not radiate. Pain currently is 10 out of 10 on a pain scale. GI: Reports nausea. 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 - Social history:: Smoking status: Patient uses tobacco products, smokes one pack cigarettes per day. Patient uses. - Ebola Screening: : Patient negative for fever greater than or equal to 101.5 degrees Fahrenheit, and additional compatible Ebola Virus Disease symptoms. - Family history:: not pertinent. Screenin:15 Abuse screen: Denies threats or abuse. Nutritional screening: No deficits noted. ea Tuberculosis screening: No symptoms or risk factors identified. Fall Risk None identified. Assessment: 02:32 General: Appears in no apparent distress. uncomfortable, Behavior is cooperative. Pain: jd3 Complains of pain in abdomen Pain currently is 10 out of 10 on a pain scale. Quality of pain is described as sharp, Pain began suddenly, Is continuous, Also complains of nausea. Neuro: Level of Consciousness is awake, alert, obeys commands, Oriented to person, place, time, situation. Cardiovascular: Heart tones S1 S2 present Capillary refill < 3 seconds Patient's skin is warm and dry. Respiratory: Airway is patent Respiratory effort is even, unlabored, Respiratory pattern is regular, symmetrical, Breath sounds are clear bilaterally. GI: Abdomen is flat, Bowel sounds present X 4 quads. Abd is soft and non tender X 4 quads. Reports lower abdominal pain, nausea, vomiting. : No signs and/or symptoms were reported regarding the genitourinary system. EENT: No signs and/or symptoms were reported regarding the EENT system. Derm: Skin is intact, Skin is dry, Skin is normal, Skin temperature is warm. Musculoskeletal: Circulation, motion, and sensation intact. Range of motion: intact in all extremities. 03:50 Reassessment: Patient and/or family updated on plan of care and expected duration. Pain ea level reassessed. Patient is alert, oriented x 3, equal unlabored respirations, skin warm/dry/pink. 03:50 Reassessment: Pt refused EKG and contrast. Pt states " I ain't drinking that shit!" . ea Provider notified. 04:00 Reassessment: Pt resting with eyes closed, respirations even and unlabored, chest ea expansions even and symmetrical. 05:20 Reassessment: Pt resting with eyes closed, respirations even and unlabored, chest ea expansions even and symmetrical. No s/s of pain or discomfort noted at this time. 05:50 Reassessment: Patient and/or family updated on plan of care and expected duration. Pain ea level reassessed. Patient is alert, oriented x 3, equal unlabored respirations, skin warm/dry/pink. Awaiting on completion of IV antibiotics. 06:55 Reassessment: Patient and/or family updated on plan of care and expected duration. Pain ea level reassessed. Patient is alert, oriented x 3, equal unlabored respirations, skin warm/dry/pink. Discharge instruction given to patient, verbalized the understanding of instruction. Vital Signs: 01:25 BP 112 / 87; Pulse 70; Resp 18; Temp 98.7; Pulse Ox 100% ; Weight 49.9 kg; Height 5 ft. fc 3 in. (160.02 cm); Pain 10/10; 03:50 BP 120 / 70; Pulse 72; Resp 18; Pulse Ox 99% ; ea 04:18 BP 116 / 68; Pulse 68; Resp 18; Pulse Ox 99% on R/A; ea 06:57 BP 122 / 70; Pulse 70; Resp 18; Pulse Ox 100% on R/A; ea 01:25 Body Mass Index 19.49 (49.90 kg, 160.02 cm) ED Course: 01:03 Patient arrived in ED. ds1 01:04 None, None is Private Physician. ds1 01:24 Triage completed. fc 01:25 Arm band placed on right wrist. Patient placed in waiting room. fc 02:31 Matt Meraz RN is Primary Nurse. jd3 02:51 Darrell Mc MD is Attending Physician. [facility] 03:00 Patient has correct armband on for positive identification. Placed in gown. Bed in low ea position. Call light in reach. Side rails up X2. 03:05 Missed attempt(s): 20 gauge in right antecubital area. attempt by ADAM RN. Bleeding jd3 controlled, band aid applied, catheter tip intact. 03:08 X-ray completed. Portable x-ray completed in exam room. Patient tolerated procedure jw2 well. 03:10 XRAY Chest (1 view) In Process Unspecified. EDMS 03:15 Oral contrast given. eh 03:49 Inserted saline lock: 18 gauge in right antecubital area, using aseptic technique. jd3 Blood collected. 05:06 CT completed. Pt tolerated procedure poorly. Patient moved to CT via stretcher. Patient eh moved back from CT. 05:06 No provider procedures requiring assistance completed. ea 05:07 CT Abd/Pelvis - W/Contrast In Process Unspecified. EDMS 05:27 Hillary Salgado MD is Referral Physician. sybil Administered Medications: 03:48 Drug: Zofran 4 mg Route: IVP; Site: right antecubital; ea 04:00 Follow up: Response: No adverse reaction; Marked relief of symptoms ea 03:49 Drug: Pepcid 20 mg Route: IVP; Site: right antecubital; ea 04:00 Follow up: Response: No adverse reaction ea 03:50 Drug: NS 0.9% 1000 ml Route: IV; Rate: 1 bolus; Site: right antecubital; ea 05:18 Follow up: Response: No adverse reaction; IV Status: Completed infusion; IV Intake: ea 1000ml 05:47 Drug: Flagyl 500 mg Volume: 100 ml; Route: IVPB; Rate: 200 ml/hr; Infused Over: 30 ea mins; Site: right antecubital; 06:50 Follow up: Response: No adverse reaction; IV Status: Completed infusion ea 05:47 Drug: Cipro 400 mg Volume: 200 ml; Route: IVPB; Infused Over: 60 mins; Site: right ea antecubital; 06:50 Follow up: Response: No adverse reaction; IV Status: Completed infusion ea Intake: 05:18 IV: 1000ml; Total: 1000ml. ea Outcome: 05:26 Discharge ordered by . sybil 06:56 Condition: good adam 06:56 Discharge instructions given to patient, Instructed on discharge instructions, follow up and referral plans. medication usage, Demonstrated understanding of instructions, follow-up care, medications, Prescriptions given X 5 07:02 Patient left the ED. ea Signatures: Dispatcher [employer] EDME Darrell Mc MD MD cha Hagler, Ervin eh Chretien, Felicia, RN RN Marjorie Pittman ds1 Britt Levi jw2 Jacquelin Matias RN RN ea Davies, Jonathon, RN RN jd3 Peltier, Brian, RN RN bp Corrections: (The following items were deleted from the chart) 03:48 03:05 Missed attempt(s): 20 gauge in right forearm. Bleeding controlled, band aid bp applied, catheter tip intact. ea 03:48 03:05 Missed attempt(s): 20 gauge in right antecubital area. Bleeding controlled, band bp aid applied, catheter tip intact. bp 03:48 03:47 Inserted saline lock: 18 gauge in right antecubital area, using aseptic bp technique. Blood collected. bp 03:49 03:05 Missed attempt(s): 20 gauge in right antecubital area. attempt by ADAM BAZAN. Bleeding jd3 controlled, band aid applied, catheter tip intact. bp
--- NOTE | 2017-08-28 05:27 | EDPHYS ---
Physician Documentation [facility] Name: Dayami Espinosa Age: 47 yrs Sex: Female : 1970 Arrival Date: 08/28/2017 Time: 01:03 Bed 18 Private MD: None, None ED Physician Darrell Mc HPI: 08/28 02:55 This 47 yrs old Female presents to ER via EMS with complaints of Nausea, sybil Dizziness. 02:55 The patient presents to the emergency department with nausea, vomiting, abdominal pain, sybil of the right upper quadrant, left upper quadrant, right lower quadrant and left lower quadrant. Onset: The symptoms/episode began/occurred 2 day(s) ago. Possible causes: unknown. The symptoms are aggravated by nothing. Associated signs and symptoms: The patient has no apparent associated signs or symptoms. Severity of symptoms: At their worst the symptoms were. The patient has experienced similar episodes in the past, a few times. 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 - Social history:: Smoking status: Patient uses tobacco products, smokes one pack cigarettes per day. Patient uses. - Ebola Screening: : Patient negative for fever greater than or equal to 101.5 degrees Fahrenheit, and additional compatible Ebola Virus Disease symptoms. - Family history:: not pertinent. ROS: 02:55 Constitutional: Negative for fever, chills, and weight loss, Eyes: Negative for injury, sybil pain, redness, and discharge, ENT: Negative for injury, pain, and discharge, Neck: Negative for injury, pain, and swelling, Cardiovascular: Negative for chest pain, palpitations, and edema, Respiratory: Negative for shortness of breath, cough, wheezing, and pleuritic chest pain, Back: Negative for injury and pain, : Negative for injury, bleeding, discharge, and swelling, MS/Extremity: Negative for injury and deformity, Skin: Negative for injury, rash, and discoloration, Neuro: Negative for headache, weakness, numbness, tingling, and seizure, Psych: Negative for depression, anxiety, suicide ideation, homicidal ideation, and hallucinations, Allergy/Immunology: Negative for hives, rash, and allergies, Endocrine: Negative for neck swelling, polydipsia, polyuria, polyphagia, and marked weight changes, Hematologic/Lymphatic: Negative for swollen nodes, abnormal bleeding, and unusual bruising. 02:55 Abdomen/GI: Positive for abdominal pain, nausea and vomiting. Exam: 02:55 Constitutional: This is a well developed, well nourished patient who is awake, alert, sybil and in no acute distress. Head/Face: Normocephalic, atraumatic. Eyes: Pupils equal round and reactive to light, extra-ocular motions intact. Lids and lashes normal. Conjunctiva and sclera are non-icteric and not injected. Cornea within normal limits. Periorbital areas with no swelling, redness, or edema. ENT: Nares patent. No nasal discharge, no septal abnormalities noted. Tympanic membranes are normal and external auditory canals are clear. Oropharynx with no redness, swelling, or masses, exudates, or evidence of obstruction, uvula midline. Mucous membranes moist. Neck: Trachea midline, no thyromegaly or masses palpated, and no cervical lymphadenopathy. Supple, full range of motion without nuchal rigidity, or vertebral point tenderness. No Meningismus. Chest/axilla: Normal chest wall appearance and motion. Nontender with no deformity. No lesions are appreciated. Cardiovascular: Regular rate and rhythm with a normal S1 and S2. No gallops, murmurs, or rubs. Normal PMI, no JVD. No pulse deficits. Respiratory: Lungs have equal breath sounds bilaterally, clear to auscultation and percussion. No rales, rhonchi or wheezes noted. No increased work of breathing, no retractions or nasal flaring. Back: No spinal tenderness. No costovertebral tenderness. Full range of motion. Female : Normal external genitalia. Skin: Warm, dry with normal turgor. Normal color with no rashes, no lesions, and no evidence of cellulitis. MS/ Extremity: Pulses equal, no cyanosis. Neurovascular intact. Full, normal range of motion. Neuro: Awake and alert, GCS 15, oriented to person, place, time, and situation. Cranial nerves II-XII grossly intact. Motor strength 5/5 in all extremities. Sensory grossly intact. Cerebellar exam normal. Normal gait. Psych: Awake, alert, with orientation to person, place and time. Behavior, mood, and affect are within normal limits. 02:55 Abdomen/GI: Inspection: abdomen appears normal, Bowel sounds: normal, Palpation: mild abdominal tenderness, moderate abdominal tenderness, in all quadrants, Liver: no appreciated palpable abnormalities. Vital Signs: 01:25 BP 112 / 87; Pulse 70; Resp 18; Temp 98.7; Pulse Ox 100% ; Weight 49.9 kg; Height 5 ft. fc 3 in. (160.02 cm); Pain 10/10; 03:50 BP 120 / 70; Pulse 72; Resp 18; Pulse Ox 99% ; ea 04:18 BP 116 / 68; Pulse 68; Resp 18; Pulse Ox 99% on R/A; ea 06:57 BP 122 / 70; Pulse 70; Resp 18; Pulse Ox 100% on R/A; ea 01:25 Body Mass Index 19.49 (49.90 kg, 160.02 cm) MDM: 02:51 Patient medically screened. [facility] 02:57 Data reviewed: vital signs, nurses notes, lab test result(s), EKG, radiologic studies, [facility] CT scan, plain films. 08/28 02:55 Order name: Basic Metabolic Panel; Complete Time: 05:24 [facility] 08/28 02:55 Order name: BNP; Complete Time: 04:35 [facility] 08/28 02:55 Order name: CBC with Diff; Complete Time: 04: [facility] 08/28 02:55 Order name: Ckmb; Complete Time: 05:24 [facility] 08/28 02:55 Order name: CPK; Complete Time: 05:24 [facility] 08/28 02:55 Order name: LFT's; Complete Time: 05:24 [facility] 08/28 02:55 Order name: Magnesium; Complete Time: 05:24 [facility] 08/28 02:55 Order name: PT-INR; Complete Time: 04:11 [facility] 08/28 02:55 Order name: Ptt, Activated; Complete Time: 04:11 [facility] 08/28 02:55 Order name: Troponin (emerg Dept Use Only); Complete Time: 04:24 [facility] 08/28 02:55 Order name: Lipase; Complete Time: 05:24 [facility] 08/28 02:55 Order name: Acetaminophen; Complete Time: 05:24 [facility] 08/28 02:55 Order name: ETOH Level; Complete Time: 05:24 [facility] 08/28 02:55 Order name: Salicylate; Complete Time: 04:24 [facility] 08/28 02:55 Order name: Urine Test (obtain specimen); Complete Time: 04:15 [facility] 08/28 02:55 Order name: XRAY Chest (1 view) [facility] 08/28 02:55 Order name: EKG; Complete Time: 02:56 [facility] 08/28 02:55 Order name: Cardiac monitoring; Complete Time: 04:15 [facility] 08/28 02:55 Order name: IV Saline Lock; Complete Time: 03:46 [facility] 08/28 02:55 Order name: Labs collected and sent; Complete Time: 03:46 [facility] 08/28 02:55 Order name: Urine Drug Screen; Complete Time: 04:24 [facility] 08/28 02:55 Order name: CT Abd/Pelvis - W/Contrast [facility] 08/28 03:55 Order name: Urine Dipstick--Ancillary (enter results); Complete Time: 05:24 [facility] 08/28 03:55 Order name: Urine --Ancillary (enter results); Complete Time: 05:24 [facility] 08/28 02:55 Order name: O2 Per Protocol; Complete Time: 02:55 [facility] 08/28 02:55 Order name: O2 Sat Monitoring; Complete Time: 02:55 [facility] 08/28 02:55 Order name: Urine Dipstick-Ancillary (obtain specimen); Complete Time: 04:15 [facility] Administered Medications: 03:48 Drug: Zofran 4 mg Route: IVP; Site: right antecubital; ea 04:00 Follow up: Response: No adverse reaction; Marked relief of symptoms ea 03:49 Drug: Pepcid 20 mg Route: IVP; Site: right antecubital; ea 04:00 Follow up: Response: No adverse reaction ea 03:50 Drug: NS 0.9% 1000 ml Route: IV; Rate: 1 bolus; Site: right antecubital; ea 05:18 Follow up: Response: No adverse reaction; IV Status: Completed infusion; IV Intake: ea 1000ml 05:47 Drug: Flagyl 500 mg Volume: 100 ml; Route: IVPB; Rate: 200 ml/hr; Infused Over: 30 ea mins; Site: right antecubital; 06:50 Follow up: Response: No adverse reaction; IV Status: Completed infusion ea 05:47 Drug: Cipro 400 mg Volume: 200 ml; Route: IVPB; Infused Over: 60 mins; Site: right ea antecubital; 06:50 Follow up: Response: No adverse reaction; IV Status: Completed infusion ea Disposition: 08/28/17 05:26 Discharged to Home. Impression: Vomiting, Abdominal tenderness - enteritis, distal small bowel , Nausea. - Condition is Stable. - Discharge Instructions: Abdominal Pain, Adult, Nausea and Vomiting, Nausea and Vomiting, [id number], Abdominal Pain, Adult, [id number]. - Prescriptions for Bentyl 20 mg Oral Tablet - take 1 tablet by ORAL route every 6 hours As needed; 20 tablet. Pepcid 20 mg Oral Tablet - take 1 tablet by ORAL route every 12 hours for 10 days; 20 tablet. Zofran 4 mg Oral Tablet - take 1 tablet by ORAL route every 12 hours As needed; 20 tablet. Cipro 500 mg Oral Tablet - take 1 tablet by ORAL route every 12 hours for 5 days; 10 tablet. Flagyl 500 mg Oral Tablet - take 1 tablet by ORAL route every 6 hours for 5 days; 20 tablet. - Medication Reconciliation Form, Thank You Letter, Antibiotic Education, Prescription Opioid Use form. - Follow up: Private Physician; When: 2 - 3 days; Reason: Recheck today's complaints, Re-evaluation by your physician. Follow up: Hillary Salgado MD; When: 2 - 3 days; Reason: Recheck today's complaints, Continuance of care, Re-evaluation by your physician. - Problem is new. - Symptoms have improved. Signatures: Dispatcher [employer] Darrell Dia MD MD cha Chretien, Felicia, RN RN fc Antunez, Elena, RN RN ea Corrections: (The following items were deleted from the chart) 05:26 02:55 EKG - Nurse/Tech ordered. sybil medina 05:27 05:26 08/28/2017 05:26 Discharged to Home. Impression: Vomiting; Abdominal tenderness; sybil Nausea. Condition is Stable. Discharge Instructions: Abdominal Pain, Adult, Nausea and Vomiting, Nausea and Vomiting, [id number], Abdominal Pain, Adult, [id number]. Prescriptions for Bentyl 20 mg Oral Tablet - take 1 tablet by ORAL route every 6 hours As needed; 20 tablet, Pepcid 20 mg Oral Tablet - take 1 tablet by ORAL route every 12 hours for 10 days; 20 tablet, Zofran 4 mg Oral Tablet - take 1 tablet by ORAL route every 12 hours As needed; 20 tablet. and Forms are Medication Reconciliation Form, Thank You Letter, Antibiotic Education, Prescription Opioid Use. Follow up: Private Physician; When: 2 - 3 days; Reason: Recheck today's complaints, Re-evaluation by your physician. Problem is new. Symptoms have improved. [facility] 05:28 05:27 08/28/2017 05:26 Discharged to Home. Impression: Vomiting; Abdominal tenderness; sybil Nausea. Condition is Stable. Discharge Instructions: Abdominal Pain, Adult, Nausea and Vomiting, Nausea and Vomiting, [id number], Abdominal Pain, Adult, [id number]. Prescriptions for Bentyl 20 mg Oral Tablet - take 1 tablet by ORAL route every 6 hours As needed; 20 tablet, Pepcid 20 mg Oral Tablet - take 1 tablet by ORAL route every 12 hours for 10 days; 20 tablet, Zofran 4 mg Oral Tablet - take 1 tablet by ORAL route every 12 hours As needed; 20 tablet. and Forms are Medication Reconciliation Form, Thank You Letter, Antibiotic Education, Prescription Opioid Use. Follow up: Private Physician; When: 2 - 3 days; Reason: Recheck today's complaints, Re-evaluation by your physician. Follow up: Hillary Salgado; When: 2 - 3 days; Reason: Recheck today's complaints, Continuance of care, Re-evaluation by your physician. Problem is new. Symptoms have improved. [facility] 07:02 05:28 08/28/2017 05:26 Discharged to Home. Impression: Vomiting; Abdominal tenderness - ea enteritis, distal small bowel ; Nausea. Condition is Stable. Discharge Instructions: Abdominal Pain, Adult, Nausea and Vomiting, Nausea and Vomiting, [id number], Abdominal Pain, Adult, [id number]. Prescriptions for Bentyl 20 mg Oral Tablet - take 1 tablet by ORAL route every 6 hours As needed; 20 tablet, Pepcid 20 mg Oral Tablet - take 1 tablet by ORAL route every 12 hours for 10 days; 20 tablet, Zofran 4 mg Oral Tablet - take 1 tablet by ORAL route every 12 hours As needed; 20 tablet. and Forms are Medication Reconciliation Form, Thank You Letter, Antibiotic Education, Prescription Opioid Use. Follow up: Private Physician; When: 2 - 3 days; Reason: Recheck today's complaints, Re-evaluation by your physician. Follow up: Hillary Salgado; When: 2 - 3 days; Reason: Recheck today's complaints, Continuance of care, Re-evaluation by your physician. Problem is new. Symptoms have improved. sybil
[2017-08-28] MEDS ORDERED: CIPROFLOXACIN 400mg IV 400 MG/200 ML BAG IV ONE (05:39)
[2017-08-28] MEDS ORDERED: METRONIDAZOLE 500mg IVPB 500 MG/100 ML BAG IV ONE (05:39)
--- NOTE | 2017-08-28 11:03 | RAD REPORT ---
EXAM DESCRIPTION: RAD - Chest Single View - 08/28/2017 3:10 am CLINICAL HISTORY: Abdominal pain, vomiting, abdominal distention COMPARISON: August 2016 TECHNIQUE: AP portable chest image was obtained 0307 hours . FINDINGS: No focal mass, consolidation or failure finding. Interstitial markings are diffusely promi nent. Pattern is not substantially different when adjusting for technique. Early interstitial edema o r infiltrate could be masked by the baseline pattern. Heart and vasculature are normal. No measurable pleural effusion and no pneumothorax. No gross bony abnormality seen. No acute aortic findings suspe cted. IMPRESSION: Chronic interstitial lung disease is present that could potentially mask interstitial ed sage or infiltrate. No mass, consolidation or failure.
--- NOTE | 2017-08-28 11:11 | RAD REPORT ---
EXAM DESCRIPTION: CT - Abdomen Pelvis W Contrast - 08/28/2017 7:10 am CLINICAL HISTORY: Abdominal pain. A preliminary written report was provided at the time of the study, and the report was reviewed prio r to final dictation. COMPARISON: CT imaging August 05 TECHNIQUE: Biphasic, helical CT imaging of the abdomen and pelvis was performed following 100 ml non -ionic IV contrast. No oral contrast was given. Hyperdensity in the distal colon is suspected to be i ngested medication or possibly contrast from a remote study. All CT scans are performed using dose optimization technique as appropriate and may include automated exposure control or mA/KV adjustment according to patient size. FINDINGS: No suspicious findings in the lung bases. The liver, spleen, and pancreas show no suspicious findings. Gallbladder and biliary tree are also wi thout suspicious finding. Symmetric renal function is seen with no hydronephrosis or suspicious renal mass. No pyelonephritis o r acute renal parenchymal process. Urinary bladder is mostly contracted limiting assessment. Numerous calcifications along the pelvic floor similar to the comparison in believed to be all phleboliths. U reteral calculus is not suspected. No uterine abnormality seen. Left ovary is difficult to distinguish from the adjacent on opacified john wel. A 2.6 centimeter in cystic structure in the right adnexa and is believed to be an ovarian cyst. Again, right ovary is difficult to distinguish from the small bowel in this region. No gastric dilatation or gastric wall thickening. No dilation of the large or small bowel. There are numerous fluid-filled mid and distal small bowel loops. Moderately large stool volume fills the colon . Cecum is low lying along the anterior pelvic floor. Acute appendicitis is not suspected. No free air or pneumatosis. Minimal free fluid is present in the dependent portion of the pelvis. Pat ient has an overall congested or edematous appearance to the peritoneal fat. This pattern is less pro nounced in the retroperitoneal or subcutaneous tissues. No hernia, mass or bulky lymphadenopathy. No adrenal abnormality. No suspicious bony findings. IMPRESSION: No bowel obstruction, free air or surgically emergent finding. Numerous fluid filled, nondilated small bowel loops are present. The pattern is similar to fractional ly worse than August 05. A nonspecific enteritis is suspected. Appendicitis is not suspected. There is a moderately large stool volume filling but not dilating the colon. Primary colon process is not suspected. Approximately 2.6 centimeter right ovarian cyst. Ovaries are difficult to distinguish from adjacent o n opacified bowel. Primary or worrisome ovary process is not identified. The patient has an overall congested appearance with a small amount of fluid throughout the peritonea l cavity. This is probably secondary congestion or edema related to small bowel enteritis.
== END 2017-08-28 07:02 | disposition home or self-care (01) ==
LOC: ER 01:03
DX: K52.9 Noninfective gastroenteritis and colitis, unspecified (principal); R10.819 Abdominal tenderness, unspecified site; F17.210 Nicotine dependence, cigarettes, uncomplicated
CPT/HCPCS: 36415; 71045; 74177; 80048; 80076; 80307; 80320; 80329; 81003; 81025; 82550; 82553; 83690; 83735; 83880; 84484; 85025; 85610; 85730; 96361; 96365; 96368; 96375; 99284; J0744; J2405; J7030; Q9967

== ENCOUNTER 2017-09-12 05:04 | Emergency (ER) | payer SELFPAY ==
--- OUTSIDE RECORDS SUMMARY | 2017-09-12 05:06 | XMS REPORT | Clinical Summary ---
:1970 Author Organization [facility] Address [address] [place] [address] Phone Care Team Providers Name Role Phone [...] Dx);Nausea;Acute constipation;Acute superficial gastritis without hemorrhage after 09/11/2016 Social History Tobacco Use Types Packs/Day Years [...] Not on file Results Not on fileafter 09/11/2016
--- OUTSIDE RECORDS SUMMARY | 2017-09-12 05:06 | XMS REPORT | Clinical Summary ---
:1970 Author Organization [facility] Address [address] [place] [address] Care Team Providers Name Role Phone Asked, [...] right knee MD Luisito (Primary Dx) after 09/11/2016 Social History Tobacco Use Types [...] Protocol (07/11/2017 2:53 AM) Specimen Performing Laboratory [facility] [address] [place] [address] [facility] [address] RENAL STONE PROTOCOL CLINICAL INDICATION:llq [...] unclear etiology and clinical significance. [facility]-[id number] Procedure Note Interface, Radiology Results Incoming - [...] unclear etiology and clinical significance. [facility]-[id number] hCG qualitative, urine screen (07/11/2017 2:29 AM) Component Value Ref Range hCG qualitative, urine NegativeComment: Sensitivity of HCG test: 25 mIU/mL Specimen Performing Laboratory Urine [facility] DEPARTMENT OF PATHOLOGY AND [facility] [address] [place] [id number] Urinalysis screen and microscopy, with reflex to [...] seen Specimen Performing Laboratory Urine [facility] DEPARTMENT OF PATHOLOGY AND GENOMIC MEDICINE [address] [place] [id number] Gram stain (07/11/2017 1:57 AM) Component Value Ref Range Gram stain result Many WBC's Many Gram positive cocci in clusters Comment: Specimen Information Specimen Source: Urine Specimen Site: Random void Specimen Performing Laboratory Urine - Random void [facility] DEPARTMENT OF PATHOLOGY AND [facility] [address] [place] [id number] Urine culture (07/11/2017 1:57 AM) Component Value Ref Range Urine culture isolate Staphylococcus aureus 10-5 cfu/ml This organism is Methicillin Sensitive. (A) Comment: Specimen Information Specimen Source: Urine Specimen Site: Random void Specimen Performing Laboratory Urine - Random void [facility] DEPARTMENT OF PATHOLOGY AND GENOMIC MEDICINE [address] [place] [id number] Organism Antibiotic Method Susceptibility Staphylococcus aureus Ampicillin [...] (07/06/2017 2:34 AM) Specimen Performing Laboratory [facility] [address] [place] [id number] Narrative EXAM:XR KNEE 1 OR 2 VW RIGHT CLINICAL HISTORY:RECENT TRAUMAKNEE COMPARISON:None. IMPRESSION: 1.No evidence of acute displaced right knee fracture or dislocation. No significant joint effusion. Question of mild medial soft tissue swelling. [facility]-[id number] Procedure Note Interface, Radiology Results Incoming - 07/06/2017 2:38 AM CDT EXAM: XR KNEE 1 OR 2 VW RIGHT CLINICAL HISTORY: RECENT TRAUMA KNEE COMPARISON: None. IMPRESSION: 1. No evidence of acute displaced right knee fracture or dislocation. No significant joint effusion. Question of mild medial soft tissue swelling. [facility]-[id number] after 09/11/2016
--- OUTSIDE RECORDS SUMMARY | 2017-09-12 05:06 | XMS REPORT ---
:1970 Author Organization [facility] Address [address] [place] [address] Care Team Providers Name Role Phone UNKNOWN, REFFERING Primary Care Provider Unavailable Problems This patient has no known problems. Allergies, Adverse Reactions, Alerts This patient has no known allergies or adverse reactions. Medications This patient has no known medications. Encounters Start End Encounter Admission Attending Care Care Encounter Date/Time Date/Time Type Type Clinicians Facility Department ID 2017-07-02 2017-07-02 Emergency E [facility] MED [id number] 08:16:00 08:16:00
[2017-09-12 06:50] LABS: Absolute Monocytes 0.5 K/uL (0.1-1.3); Absolute Neutrophil 3.9 K/uL (1.8-8.0); Basophils % 0.6 % (0-1.3); Eosinophils % 2.4 % (0-4.4); Hematocrit 34.2 % (36.0-45.0); Lymphocytes % 30.6 % (15.3-44.8); MCH 28.4 pg (27.0-35.0); MCV 86.4 fL (80-100); MPV 7.7 fL (7.6-11.3); Monocytes % 7.5 % (3.3-12.3); RBC Red Blood Cell Count 3.96 M/uL (3.86-4.86)
[2017-09-12 07:01] LABS: Bicarbonate 26 mEq/L (21-31); Glucose Level 151 mg/dL (65-120); Lipase 94 U/L (22-51); Potassium 3.3 mEq/L (3.6-5.0); Sodium Level 141 mEq/L (135-145)
[2017-09-12 07:07] LABS: ALT/SGPT 29 IU/L (10-60); AST/SGOT 34 IU/L (10-42); Albumin 3.3 g/dL (3.2-5.5); Alkaline Phosphatase 43 IU/L (42-121); BUN Blood Urea Nitrogen 5 mg/dL (6-20); Bilirubin Direct < 0.1 mg/dL (0-0.2); Bilirubin Total 0.3 mg/dL (0.3-1.2); Protein, Total 6.1 g/dL (6.0-8.3)
[2017-09-12] MEDS ORDERED: ACETAMINOPHEN 325 MG TABLET ONE (09:09)
--- NOTE | 2017-09-12 09:10 | EDPHYS ---
Physician Documentation [facility] Name: Dayami Espinosa Age: 47 yrs Sex: Female : 1970 Arrival Date: 09/12/2017 Time: 05:05 Bed 5 Private MD: None, None ED Physician Derrek Martines HPI: 09/12 07:00 This 47 yrs old Female presents to ER via EMS with complaints of Nausea. pm1 07:00 The patient presents to the emergency department with nausea. Onset: The pm1 symptoms/episode began/occurred just prior to arrival. Possible causes: bad food exposure, [employer] food. Associated signs and symptoms: Pertinent positives: nausea, Pertinent negatives: abdominal pain, diarrhea, dysuria, fever, vomiting. Severity of symptoms: Pain is currently a 0 / 10. The patient has been recently seen by a physician: a psychiatrist, with different complaint(s). Patient was given a choice to report to the emergency department or go to correction by police officers. Patient was eating at [employer] and reports onset of nausea after eating there. Patient without any vomiting, fever, abdominal pain, or diarrhea. . Historical: - Allergies: 05:11 No Known Allergies; tl2 - Home Meds: 05:11 Depakote Oral for Bipolar Disorder in Remission [Active]; tl2 - PMHx: 05:11 Anemia; Bipolar disorder; tl2 - Immunization history:: Adult Immunizations up to date. - Social history:: Smoking status: Patient uses tobacco products, smokes one-half pack cigarettes per day. - Ebola Screening: : No symptoms or risks identified at this time. ROS: 07:00 Constitutional: Negative for fever, chills, and weight loss, Eyes: Negative for injury, pm1 pain, redness, and discharge, ENT: Negative for injury, pain, and discharge, Neck: Negative for injury, pain, and swelling, Cardiovascular: Negative for chest pain, palpitations, and edema, Respiratory: Negative for shortness of breath, cough, wheezing, and pleuritic chest pain. 07:00 Back: Negative for injury and pain, : Negative for injury, bleeding, discharge, and swelling, MS/Extremity: Negative for injury and deformity, Skin: Negative for injury, rash, and discoloration, Neuro: Negative for headache, weakness, numbness, tingling, and seizure. 07:00 Abdomen/GI: Positive for nausea, Negative for abdominal pain, vomiting, diarrhea. Exam: 07:00 Constitutional: This is a well developed, well nourished patient who is awake, alert, pm1 and in no acute distress. Head/Face: Normocephalic, atraumatic. Eyes: Pupils equal round and reactive to light, extra-ocular motions intact. Lids and lashes normal. Conjunctiva and sclera are non-icteric and not injected. Cornea within normal limits. Periorbital areas with no swelling, redness, or edema. ENT: Nares patent. No nasal discharge, no septal abnormalities noted. Tympanic membranes are normal and external auditory canals are clear. Oropharynx with no redness, swelling, or masses, exudates, or evidence of obstruction, uvula midline. Mucous membranes moist. Neck: Trachea midline, no thyromegaly or masses palpated, and no cervical lymphadenopathy. Supple, full range of motion without nuchal rigidity, or vertebral point tenderness. No Meningismus. Chest/axilla: Normal chest wall appearance and motion. Nontender with no deformity. No lesions are appreciated. Cardiovascular: Regular rate and rhythm with a normal S1 and S2. No gallops, murmurs, or rubs. No pulse deficits. Respiratory: Lungs have equal breath sounds bilaterally, clear to auscultation and percussion. No rales, rhonchi or wheezes noted. No increased work of breathing, no retractions or nasal flaring. Abdomen/GI: Soft, non-tender, with normal bowel sounds. No distension or tympany. No guarding or rebound. No evidence of tenderness throughout. Back: No spinal tenderness. No costovertebral tenderness. Full range of motion. Skin: Warm, dry with normal turgor. Normal color with no rashes, no lesions, and no evidence of cellulitis. MS/ Extremity: Pulses equal, no cyanosis. Neurovascular intact. Full, normal range of motion. 07:00 Neuro: Orientation: is normal, Motor: is normal, Gait: is steady, at a normal pace, without difficulty. Vital Signs: 05:11 BP 110 / 74; Pulse 90; Resp 18; Temp 98.8(TE); Pulse Ox 98% on R/A; Weight 47.63 kg; tl2 Height 5 ft. 3 in. (160.02 cm); 06:20 Pulse 87; Resp 18; Pulse Ox 96% on R/A; tl1 06:53 BP 103 / 64; Pulse 96; Resp 16; Pulse Ox 98% on R/A; mt 07:38 BP 94 / 63; Pulse 81; Resp 17; Pulse Ox 95% on R/A; tw2 08:51 BP 86 / 58; Pulse 74; Resp 16; Pulse Ox 96% ; sv 09:03 BP 95 / 70; Pulse 77; Resp 18; Pulse Ox 99% ; sv 05:11 Body Mass Index 18.60 (47.63 kg, 160.02 cm) tl2 MDM: 06:28 Patient medically screened. pm1 09:09 Data reviewed: vital signs. Data interpreted: Pulse oximetry: on room air is 99 %. pm1 Interpretation: normal. Counseling: I had a detailed discussion with the patient and/or guardian regarding: the historical points, exam findings, and any diagnostic results supporting the discharge/admit diagnosis, lab results, the need for outpatient follow up, to return to the emergency department if symptoms worsen or persist or if there are any questions or concerns that arise at home. 09/12 06:35 Order name: Basic Metabolic Panel; Complete Time: 08:23 pm1 09/12 06:35 Order name: CBC with Diff; Complete Time: 08:23 pm1 09/12 06:35 Order name: Hepatic Function; Complete Time: 08:23 pm1 09/12 06:35 Order name: Lipase; Complete Time: 08:23 pm1 09/12 06:35 Order name: IV Saline Lock; Complete Time: 06:44 pm1 09/12 06:35 Order name: Labs collected and sent; Complete Time: 06:44 pm1 09/12 08:44 Order name: PO challenge; Complete Time: 08:56 pm1 Administered Medications: No medications were administered Disposition: 19:05 Co-signature as Attending Physician, Derrek Martines MD. pkl Disposition: 09/12/17 09:10 Discharged to Home. Impression: Nausea. - Condition is Stable. - Discharge Instructions: Food Poisoning, Nausea, Adult. - Medication Reconciliation Form, Thank You Letter form. - Follow up: Emergency Department; When: As needed; Reason: Worsening of condition. Follow up: Private Physician; When: 2 - 3 days; Reason: Recheck today's complaints, Continuance of care, Re-evaluation by your physician. - Problem is new. - Symptoms have improved. Signatures: Dispatcher [employer] Lorena Talavera RN RN Derrek Wu MD MD pkl Marinas, Patrick, LOCAL CITY DRIVER LOCAL CITY DRIVER pm1 Lexis Hernandez RN RN tl2 Corrections: (The following items were deleted from the chart) 09:16 09:10 09/12/2017 09:10 Discharged to Home. Impression: Nausea. Condition is Stable. sv Forms are Medication Reconciliation Form, Thank You Letter, Antibiotic Education, Prescription Opioid Use. Follow up: Emergency Department; When: As needed; Reason: Worsening of condition. Follow up: Private Physician; When: 2 - 3 days; Reason: Recheck today's complaints, Continuance of care, Re-evaluation by your physician. Problem is new. Symptoms have improved. pm1
--- NOTE | 2017-09-12 09:10 | ER ---
Nurse's Notes [facility] Name: Dayami Espinosa Age: 47 yrs Sex: Female : 1970 Arrival Date: 09/12/2017 Time: 05:05 Bed 5 Private MD: None, None Diagnosis: Nausea Presentation: 09/12 05:10 Presenting complaint: EMS states: Pt began feeling nauseous after eating [employer]. tl2 Transition of care: patient was not received from another setting of care. Onset of symptoms was September 12, 2017 at 04:00. Risk Assessment: Do you want to hurt yourself or someone else? Patient reports no desire to harm self or others. Initial Sepsis Screen: Does the patient meet any 2 criteria? No. Patient's initial sepsis screen is negative. Does the patient have a suspected source of infection? No. Patient's initial sepsis screen is negative. Care prior to arrival: None. 05:10 Method Of Arrival: EMS: [facility] tl2 05:10 Acuity: JAZMIN 3 tl2 Triage Assessment: 05:11 General: Appears in no apparent distress. uncomfortable, Behavior is cooperative, tl2 agitated, Smells of alcohol. Pain: Complains of pain in chronic abdominal pain. Neuro: Level of Consciousness is awake, alert, obeys commands, Oriented to person, place, time, situation. Cardiovascular: Denies chest pain. Respiratory: Airway is patent Respiratory effort is even, unlabored, Respiratory pattern is regular, symmetrical. GI: Reports nausea, Patient currently denies vomiting. : No signs and/or symptoms were reported regarding the genitourinary system. Derm: Skin is pink, warm \T\ dry. Historical: - Allergies: 05:11 No Known Allergies; tl2 - Home Meds: 05:11 Depakote Oral for Bipolar Disorder in Remission [Active]; tl2 - PMHx: 05:11 Anemia; Bipolar disorder; tl2 - Immunization history:: Adult Immunizations up to date. - Social history:: Smoking status: Patient uses tobacco products, smokes one-half pack cigarettes per day. - Ebola Screening: : No symptoms or risks identified at this time. Screenin:14 Abuse screen: Denies threats or abuse. Nutritional screening: No deficits noted. tl2 Tuberculosis screening: No symptoms or risk factors identified. Fall Risk None identified. Assessment: 05:14 General: see triage assessment. tl2 06:20 Reassessment: Patient appears in no apparent distress at this time. Patient and/or tl1 family updated on plan of care and expected duration. Pain level reassessed. Patient is alert, oriented x 3, equal unlabored respirations, skin warm/dry/pink. awaiting further orders and provider assessment. 07:38 Reassessment: Patient appears in no apparent distress at this time. Patient and/or tw2 family updated on plan of care and expected duration. Pain level reassessed. Patient is alert, oriented x 3, equal unlabored respirations, skin warm/dry/pink. 09:15 Reassessment: Patient appears in no apparent distress at this time. Patient and/or sv family updated on plan of care and expected duration. Pain level reassessed. Patient is alert, oriented x 3, equal unlabored respirations, skin warm/dry/pink. Patient states feeling better. Patient states symptoms have improved. Vital Signs: 05:11 BP 110 / 74; Pulse 90; Resp 18; Temp 98.8(TE); Pulse Ox 98% on R/A; Weight 47.63 kg; tl2 Height 5 ft. 3 in. (160.02 cm); 06:20 Pulse 87; Resp 18; Pulse Ox 96% on R/A; tl1 06:53 BP 103 / 64; Pulse 96; Resp 16; Pulse Ox 98% on R/A; mt 07:38 BP 94 / 63; Pulse 81; Resp 17; Pulse Ox 95% on R/A; tw2 08:51 BP 86 / 58; Pulse 74; Resp 16; Pulse Ox 96% ; sv 09:03 BP 95 / 70; Pulse 77; Resp 18; Pulse Ox 99% ; sv 05:11 Body Mass Index 18.60 (47.63 kg, 160.02 cm) tl2 ED Course: 05:05 Patient arrived in ED. ds1 05:05 None, None is Private Physician. ds1 05:10 Triage completed. tl2 05:11 Arm band placed on right wrist. tl2 05:14 Patient has correct armband on for positive identification. Placed in gown. Bed in low tl2 position. Call light in reach. Side rails up X 1. 06:03 Ming Fontenot NP is PHCP. pm1 06:03 Derrek Martines MD is Attending Physician. pm1 06:44 Inserted saline lock: 18 gauge in right antecubital area, using aseptic technique. tl2 Blood collected. 07:13 Joyce Rowe, RN is Primary Nurse. tw2 09:15 No provider procedures requiring assistance completed. IV discontinued, intact, sv bleeding controlled, No redness/swelling at site. Pressure dressing applied. Administered Medications: No medications were administered Outcome: 09:10 Discharge ordered by MD. pm1 09:16 Discharged to home ambulatory. sv 09:16 Condition: stable 09:16 Discharge instructions given to patient, Instructed on discharge instructions, follow up and referral plans. Demonstrated understanding of instructions, follow-up care. 09:16 Patient left the ED. sv Signatures: Lorena Stoner RN RN Marjorie Caldwell ds1 Rosanna Busch RN RN tl1 Ming Fontenot, CORDWOOD CUTTER HELPER CORDWOOD CUTTER HELPER pm1 Joyce Rowe, BENI RN tw2 Lexis Hernandez RN RN tl2 Carolina Monet mo
== END 2017-09-12 09:16 | disposition home or self-care (01) ==
LOC: ER 05:04
DX: R11.0 Nausea (principal); F31.9 Bipolar disorder, unspecified; F17.210 Nicotine dependence, cigarettes, uncomplicated
CPT/HCPCS: 36415; 80048; 80076; 83690; 85025; 99284

== ENCOUNTER 2017-10-07 04:21 | Emergency (ER) | payer SELFPAY ==
--- OUTSIDE RECORDS SUMMARY | 2017-10-07 04:23 | XMS REPORT | Clinical Summary ---
:1970 Author Organization [facility] Address [address] [place] [address] Phone Care Team Providers Name Role Phone [...] Dx);Nausea;Acute constipation;Acute superficial gastritis without hemorrhage after 10/06/2016 Social History Tobacco Use Types Packs/Day Years [...] Not on file Results Not on fileafter 10/06/2016
--- OUTSIDE RECORDS SUMMARY | 2017-10-07 04:23 | XMS REPORT ---
:1970 [facility] Address [address] [place] [address] [address] [place] [address] Care Team Providers Name Role Phone UNKNOWN, REFFERING Primary Care Provider Unavailable Problems This patient has no known problems. Allergies, Adverse Reactions, Alerts This patient has no known allergies or adverse reactions. Medications This patient has no known medications. Encounters Start End Encounter Admission Attending Care Care Encounter Date/Time Date/Time Type Type Clinicians Facility Department ID 2017-07-02 2017-07-02 Emergency E [facility] MED [id number] 08:16:00 08:16:00
--- OUTSIDE RECORDS SUMMARY | 2017-10-07 04:23 | XMS REPORT | Clinical Summary ---
:1970 Author Organization [facility] Address [address] [place] [address] Care Team Providers Name Role Phone Asked, [...] right knee MD Luisito (Primary Dx) after 10/06/2016 Social History Tobacco Use Types [...] CERVICAL CANCER SCREENING 1990 INFLUENZA VACCINE 11/02/2017 Procedures Procedure Name Priority Date/Time Associated Comments Diagnosis CT RENAL STONE STAT 07/11/2017 2:53 AM Results for this PROTOCOL CDT procedure are in the results section. HCG QUALITATIVE, Routine 07/11/2017 2:29 AM Results for this URINE SCREEN CDT procedure are in the results section. URINALYSIS SCREEN STAT 07/11/2017 1:57 AM Results for this AND MICROSCOPY, WITH CDT procedure are in REFLEX TO CULTURE the results section. GRAM STAIN STAT 07/11/2017 1:57 AM Results for this CDT procedure are in the results section. URINE CULTURE STAT 07/11/2017 1:57 AM Results for this CDT procedure are in the results section. XR KNEE 1 OR 2 VW STAT 07/06/2017 2:34 AM Results for this RIGHT CDT procedure are in the results section. after 10/06/[address] Renal Stone Protocol (07/11/2017 2:53 AM) Narrative Performed At CT RENAL STONE PROTOCOL [facility] CLINICAL INDICATION:llq abd pain TECHNIQUE: Multidetector CT [...] is of unclear etiology and clinical significance. [facility]-[id number] Procedure Note Interface, Radiology Results Incoming - [...] is of unclear etiology and clinical significance. [facility]-[id number] Performing Organization Address City/[facility]/Zipcode Phone Number [facility] [address] [place] [address] hCG qualitative, urine screen (07/11/2017 2:29 AM) hCG qualitative, urine NegativeComment: [facility] DEPARTMENT OF Sensitivity of HCG test: 25 PATHOLOGY AND GENOMIC mIU/mL MEDICINE Specimen Urine Performing Organization Address City/[facility] Phone Number [facility] DEPARTMENT OF PATHOLOGY AND [address] [place] [phone] GENOMIC MEDICINE Urinalysis screen and microscopy, with reflex to culture (07/11/2017 1:57 AM) Specimen site Random void [facility] DEPARTMENT OF PATHOLOGY AND GENOMIC MEDICINE Color, UA Red [facility] DEPARTMENT OF PATHOLOGY AND GENOMIC MEDICINE Appearance, UA Cloudy [facility] DEPARTMENT OF PATHOLOGY AND GENOMIC MEDICINE Specific gravity, UA 1.018 1.001 - 1.035 [facility] DEPARTMENT OF PATHOLOGY AND GENOMIC MEDICINE pH, UA 6.0 5.0 - 8.5 [facility] DEPARTMENT OF PATHOLOGY AND GENOMIC MEDICINE Protein, UA 1+ (A) Negative [facility] DEPARTMENT OF PATHOLOGY AND GENOMIC MEDICINE Glucose, UA Negative Negative [facility] DEPARTMENT OF PATHOLOGY AND GENOMIC MEDICINE Ketones, UA Negative Negative [facility] DEPARTMENT OF PATHOLOGY AND GENOMIC MEDICINE Bilirubin, UA Negative Negative [facility] DEPARTMENT OF PATHOLOGY AND GENOMIC MEDICINE Blood, UA Moderate (A) Negative [facility] DEPARTMENT OF PATHOLOGY AND GENOMIC MEDICINE Nitrite, UA Positive (A) Negative [facility] DEPARTMENT OF PATHOLOGY AND GENOMIC MEDICINE Urobilinogen, UA 2.0 (A) <2.0 [facility] DEPARTMENT OF PATHOLOGY AND GENOMIC MEDICINE Leukocyte esterase, UA Large (A) Negative [facility] DEPARTMENT OF PATHOLOGY AND GENOMIC MEDICINE Epithelial cells, UA 3 /HPF [facility] DEPARTMENT OF PATHOLOGY AND GENOMIC MEDICINE WBC, UA >180 (H) 0 - 4 /HPF [facility] DEPARTMENT OF PATHOLOGY AND GENOMIC MEDICINE RBC, UA 7 (H) 0 - 5 /HPF [facility] DEPARTMENT OF PATHOLOGY AND GENOMIC MEDICINE Bacteria, UA Many (A) None seen [facility] DEPARTMENT OF PATHOLOGY AND GENOMIC MEDICINE Yeast, UA None seen [facility] DEPARTMENT OF PATHOLOGY AND GENOMIC MEDICINE Yeast with pseudohyphae, UA None seen [facility] DEPARTMENT OF PATHOLOGY AND GENOMIC MEDICINE Specimen Urine Performing Organization Address City/[facility] Phone Number [facility] DEPARTMENT OF PATHOLOGY AND [address] [place], [place] [phone] [facility] Gram stain (07/11/2017 1:57 AM) Gram stain result Many WBC's [facility] DEPARTMENT OF PATHOLOGY Many Gram positive cocci in clusters AND GENOMIC MEDICINE Comment: Specimen Information Specimen Source: Urine Specimen Site: Random void Specimen Urine - Random void Performing Organization Address City/[facility] Phone Number [facility] DEPARTMENT OF PATHOLOGY AND [address] [place] [phone] [facility] Urine culture (07/11/2017 1:57 AM) Urine culture isolate Staphylococcus aureus [facility] DEPARTMENT OF 10-5 cfu/ml PATHOLOGY AND GENOMIC This organism is Methicillin Sensitive. MEDICINE (A) Comment: Specimen Information Specimen Source: Urine Specimen Site: Random void Specimen Urine - Random void Organism Antibiotic Method Susceptibility Staphylococcus aureus Ampicillin [...] Staphylococcus aureus Vancomycin RAH 1 mcg/mL: Susceptible Performing Organization Address [facility] Phone Number [facility] DEPARTMENT OF PATHOLOGY AND [address] [place], [place] [phone] [facility] XR Knee 1 Or 2 Vw Right (07/06/2017 2:34 AM) Narrative Performed At EXAM:XR KNEE 1 OR 2 VW RIGHT [facility] CLINICAL HISTORY:RECENT TRAUMAKNEE COMPARISON:None. IMPRESSION: 1.No evidence of acute displaced right knee fracture or dislocation. No significant joint effusion. Question of mild medial soft tissue swelling. [facility]-[id number] Procedure Note Interface, Radiology Results Incoming - 07/06/2017 2:38 AM CDT EXAM: XR KNEE 1 OR 2 VW RIGHT CLINICAL HISTORY: RECENT TRAUMA KNEE COMPARISON: None. IMPRESSION: 1. No evidence of acute displaced right knee fracture or dislocation. No significant joint effusion. Question of mild medial soft tissue swelling. [facility]-[id number] Performing Organization Address [facility] Phone Number [facility] [address] [place] [address] after 10/06/2016
[2017-10-07] MEDS ORDERED: MEPERIDINE HCL 25 MG/0.5 ML ONE (04:48)
[2017-10-07] MEDS ORDERED: PROMETHAZINE 25 MG/ML VIAL ONE (04:48)
[2017-10-07 05:03] LABS: Absolute Lymphocytes (CBC) 2.4 K/uL (0.7-4.9); Absolute Monocytes 0.8 K/uL (0.1-1.3); Absolute Neutrophil 5.2 K/uL (1.8-8.0); Basophils % 0.3 % (0-1.3); Eosinophils % 2.1 % (0-4.4); Hematocrit 30.7 % (36.0-45.0); Lymphocytes % 27.9 % (15.3-44.8); MCH 29.9 pg (27.0-35.0); MCV 87.9 fL (80-100); MPV 7.8 fL (7.6-11.3); Monocytes % 8.9 % (3.3-12.3); RBC Red Blood Cell Count 3.49 M/uL (3.86-4.86)
[2017-10-07 05:21] LABS: Albumin 3.3 g/dL (3.4-5.0); Bilirubin Total 0.4 mg/dL (0.2-1.0); Potassium 3.5 mmol/L (3.5-5.1); Protein, Total 6.1 g/dL (6.4-8.2)
[2017-10-07 05:23] LABS: Urine Blood 3+ (NEG); Urine Glucose NEGATIVE (NEG); Urine Protein 1+ (NEG); Urine pH 5.5 (5.0-7.0)
--- NOTE | 2017-10-07 06:20 | ER ---
Nurse's Notes [facility] Unit Name: Dayami Espinosa Age: 47 yrs Sex: Female : 1970 Arrival Date: 10/07/2017 Time: 04:21 Bed 13 Private MD: Diagnosis: Abdominal pain. Menstrual cramps Presentation: 10/07 04:36 Presenting complaint: Patient states: I started my period on October 05 and my cramps are tl2 really bad. Transition of care: patient was not received from another setting of care. Onset of symptoms was October 05, 2017. Risk Assessment: Do you want to hurt yourself or someone else? Patient reports no desire to harm self or others. Initial Sepsis Screen: Does the patient meet any 2 criteria? No. Patient's initial sepsis screen is negative. Does the patient have a suspected source of infection? No. Patient's initial sepsis screen is negative. Care prior to arrival: None. 04:36 Method Of Arrival: Ambulatory tl2 04:36 Acuity: JAZMIN 4 tl2 Triage Assessment: 04:38 General: Appears in no apparent distress. uncomfortable, Behavior is calm, cooperative, tl2 appropriate for age. Pain: Complains of pain in suprapubic area. Neuro: Level of Consciousness is awake, alert, obeys commands, Oriented to person, place, time, situation. Cardiovascular: Denies chest pain. Respiratory: Airway is patent Respiratory effort is even, unlabored, Respiratory pattern is regular, symmetrical. GI: Abdomen is non-distended, Reports cramping. : No signs and/or symptoms were reported regarding the genitourinary system. Derm: Skin is pink, warm \T\ dry. 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 - Social history:: Smoking status: Patient uses tobacco products, smokes one-half pack cigarettes per day. - Ebola Screening: : No symptoms or risks identified at this time. Screenin:41 Abuse screen: Denies threats or abuse. Nutritional screening: No deficits noted. tl2 Tuberculosis screening: No symptoms or risk factors identified. Fall Risk None identified. Assessment: 05:45 Reassessment: Patient and/or family updated on plan of care and expected duration. Pain tl1 level reassessed. Patient is alert, oriented x 3, equal unlabored respirations, skin warm/dry/pink. agreed with triage assessment Patient states feeling better. Patient states symptoms have improved. Vital Signs: 04:38 BP 155 / 63; Pulse 85; Resp 18; Temp 98.4(O); Pulse Ox 100% on R/A; Weight 47.63 kg; tl2 Height 5 ft. 3 in. (160.02 cm); Pain 8/10; 05:45 BP 96 / 54; Pulse 61; Resp 16; Pulse Ox 100% ; Pain 0/10; tl1 06:25 BP 92 / 57; Pulse 60; Resp 16; Pulse Ox 99% on R/A; tl2 04:38 Body Mass Index 18.60 (47.63 kg, 160.02 cm) tl2 ED Course: 04:21 Patient arrived in ED. ds1 04:37 Triage completed. tl2 04:38 Arm band placed on right wrist. tl2 04:39 Derrek Martines MD is Attending Physician. pkl 04:41 Patient has correct armband on for positive identification. Bed in low position. Call tl2 light in reach. Side rails up X 1. 05:45 Rosanna Busch, RN is Primary Nurse. tl1 06:35 No provider procedures requiring assistance completed. Patient did not have IV access tl1 during this emergency room visit. Administered Medications: 04:49 Drug: Demerol 25 mg Route: IM; Site: left gluteus; tl2 06:37 Follow up: Response: No adverse reaction; Marked relief of symptoms; Pain is decreased tl1 04:49 Drug: Phenergan 12.5 mg Route: IM; Site: left gluteus; tl2 06:36 Follow up: Response: No adverse reaction; Marked relief of symptoms; Pain is decreased tl1 Outcome: 06:20 Discharge ordered by . pkl 06:36 Discharged to home ambulatory. tl1 06:36 Condition: good 06:36 Discharge instructions given to patient, Instructed on discharge instructions, follow up and referral plans. Demonstrated understanding of instructions, follow-up care. 06:37 Patient left the ED. tl1 Signatures: Derrek Martines MD MD pkMarjorie Garcia ds1 Rosanna Busch, RN RN tl1 Lexis Hernandez RN RN tl2
--- NOTE | 2017-10-07 06:21 | EDPHYS ---
Physician Documentation [facility] Name: Dayami Espinosa Age: 47 yrs Sex: Female : 1970 Arrival Date: 10/07/2017 Time: 04:21 Bed 13 Private MD: ED Physician Derrek Martines HPI: 10/07 04:44 This 47 yrs old Female presents to ER via Ambulatory with complaints of pkl Abdominal Pain. 04:44 The patient presents with abdominal pain in the lower abdomen. Onset: The pkl symptoms/episode began/occurred 2 day(s) ago. The symptoms do not radiate. Associated signs and symptoms: Pertinent positives: menstrual cramps. 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 - Social history:: Smoking status: Patient uses tobacco products, smokes one-half pack cigarettes per day. - Ebola Screening: : No symptoms or risks identified at this time. ROS: 04:44 Eyes: Negative for injury, pain, redness, and discharge, ENT: Negative for injury, pkl pain, and discharge, Neck: Negative for injury, pain, and swelling, Cardiovascular: Negative for chest pain, palpitations, and edema, Respiratory: Negative for shortness of breath, cough, wheezing, and pleuritic chest pain. 04:44 Abdomen/GI: Positive for abdominal pain, of the right lower quadrant and left lower quadrant. 04:44 Back: Negative for acute changes. 04:44 : Negative for urinary symptoms. 04:44 MS/extremity: Negative for acute changes. 04:44 Skin: Negative for rash. 04:44 Neuro: Negative for altered mental status. Exam: 04:44 Head/Face: Normocephalic, atraumatic. Eyes: Pupils equal round and reactive to light, pkl extra-ocular motions intact. Lids and lashes normal. Conjunctiva and sclera are non-icteric and not injected. Cornea within normal limits. Periorbital areas with no swelling, redness, or edema. ENT: Nares patent. No nasal discharge, no septal abnormalities noted. Tympanic membranes are normal and external auditory canals are clear. Oropharynx with no redness, swelling, or masses, exudates, or evidence of obstruction, uvula midline. Mucous membranes moist. Neck: Trachea midline, no thyromegaly or masses palpated, and no cervical lymphadenopathy. Supple, full range of motion without nuchal rigidity, or vertebral point tenderness. No Meningismus. Chest/axilla: Normal chest wall appearance and motion. Nontender with no deformity. No lesions are appreciated. Cardiovascular: Regular rate and rhythm with a normal S1 and S2. No gallops, murmurs, or rubs. Normal PMI, no JVD. No pulse deficits. Respiratory: Lungs have equal breath sounds bilaterally, clear to auscultation and percussion. No rales, rhonchi or wheezes noted. No increased work of breathing, no retractions or nasal flaring. 04:44 Abdomen/GI: Bowel sounds: normal, Palpation: soft, mild abdominal tenderness, in the right lower quadrant and left lower quadrant. 04:44 Back: Exam negative for acute changes. 04:44 : Exam negative for acute changes. 04:44 Musculoskeletal/extremity: Exam is negative for acute changes. 04:44 Skin: Exam negative for rash. 04:44 Neuro: Orientation: is normal, Mentation: is normal, Cranial nerves: grossly normal, Motor: is normal. Vital Signs: 04:38 BP 155 / 63; Pulse 85; Resp 18; Temp 98.4(O); Pulse Ox 100% on R/A; Weight 47.63 kg; tl2 Height 5 ft. 3 in. (160.02 cm); Pain 8/10; 05:45 BP 96 / 54; Pulse 61; Resp 16; Pulse Ox 100% ; Pain 0/10; tl1 06:25 BP 92 / 57; Pulse 60; Resp 16; Pulse Ox 99% on R/A; tl2 04:38 Body Mass Index 18.60 (47.63 kg, 160.02 cm) tl2 MDM: 04:39 Patient medically screened. pkl 06:01 Data reviewed: vital signs, nurses notes, lab test result(s). pkl 06:19 Data reviewed: lab test result(s). pkl 10/07 04:49 Order name: CBC with Diff; Complete Time: 05:10 tl2 10/07 04:49 Order name: CMP; Complete Time: 05:38 tl2 10/07 05:07 Order name: Urine Dipstick--Ancillary (enter results); Complete Time: 05:38 eb 0706 05:07 Order name: Urine --Ancillary (enter results); Complete Time: 05:38 eb 10/07 04:49 Order name: Urine Dipstick-Ancillary (obtain specimen); Complete Time: 06:36 tl2 Administered Medications: 04:49 Drug: Demerol 25 mg Route: IM; Site: left gluteus; tl2 06:37 Follow up: Response: No adverse reaction; Marked relief of symptoms; Pain is decreased tl1 04:49 Drug: Phenergan 12.5 mg Route: IM; Site: left gluteus; tl2 06:36 Follow up: Response: No adverse reaction; Marked relief of symptoms; Pain is decreased tl1 Disposition: 10/07/17 06:20 Discharged to Home. Impression: Abdominal pain. Menstrual cramps. - Condition is Stable. - Medication Reconciliation Form, Thank You Letter, Antibiotic Education, Prescription Opioid Use form. - Follow up: Private Physician; When: 2 - 3 days; Reason: Re-evaluation by your physician. - Problem is new. - Symptoms have improved. Signatures: Dispatcher [employer] EDMS Derrek Martines MD MD pkl Rosanna Busch RN RN tl1 Lexis Hernandez RN RN tl2 Corrections: (The following items were deleted from the chart) 06:37 06:20 10/07/2017 06:20 Discharged to Home. Impression: Abdominal pain. Menstrual tl1 cramps. Condition is Stable. Forms are Medication Reconciliation Form, Thank You Letter, Antibiotic Education, Prescription Opioid Use. Follow up: Private Physician; When: 2 - 3 days; Reason: Re-evaluation by your physician. Problem is new. Symptoms have improved. pkl
== END 2017-10-07 06:37 | disposition home or self-care (01) ==
LOC: ER 04:21
DX: N94.6 Dysmenorrhea, unspecified (principal); F17.210 Nicotine dependence, cigarettes, uncomplicated
CPT/HCPCS: 36415; 80053; 81003; 81025; 85025; 96372; 99283; J2175; J2550

== ENCOUNTER 2017-10-08 02:27 | Emergency (ER) | payer SELFPAY ==
--- OUTSIDE RECORDS SUMMARY | 2017-10-08 02:29 | XMS REPORT | Clinical Summary ---
:1970 Author Organization [facility] Address [address] [place] [address] Care Team Providers Name Role Phone Asked, [...] right knee MD Luisito (Primary Dx) after 10/07/2016 Social History Tobacco Use Types Packs/Day Years [...] procedure are in the results section. after 10/07/[address] Renal Stone Protocol (07/11/2017 2:53 AM) Narrative Performed At CT RENAL STONE PROTOCOL [facility] CLINICAL INDICATION:llq abd pain TECHNIQUE: Multidetector CT [...] is of unclear etiology and clinical significance. [facility]-[id number] Procedure Note Interface, Radiology Results Incoming - [...] is of unclear etiology and clinical significance. [facility]-[id number] Performing Organization Address City/[facility]/Zipcode Phone Number [facility] [address] [place] [address] hCG qualitative, urine screen (07/11/2017 2:29 AM) hCG qualitative, urine NegativeComment: [facility] DEPARTMENT OF Sensitivity of HCG test: 25 PATHOLOGY AND GENOMIC mIU/mL MEDICINE Specimen Urine Performing Organization Address City/[facility] Phone Number [facility] DEPARTMENT OF PATHOLOGY AND [address] [place] [phone] GENOMIC MEDICINE Urinalysis screen and microscopy, with reflex to culture (07/11/2017 1:57 AM) Specimen site Random void [facility] DEPARTMENT OF PATHOLOGY AND GENOMIC MEDICINE Color, UA Red [facility] DEPARTMENT OF PATHOLOGY AND GENOMIC MEDICINE Appearance, UA Cloudy [facility] DEPARTMENT OF PATHOLOGY AND GENOMIC MEDICINE Specific gravity, UA 1.018 1.001 - 1.035 [facility] DEPARTMENT OF PATHOLOGY AND GENOMIC MEDICINE pH, UA 6.0 5.0 - 8.5 [facility] DEPARTMENT OF PATHOLOGY AND GENOMIC MEDICINE Protein, UA 1+ (A) Negative [facility] DEPARTMENT OF PATHOLOGY AND GENOMIC MEDICINE Glucose, UA Negative Negative [facility] DEPARTMENT OF PATHOLOGY AND GENOMIC MEDICINE Ketones, UA Negative Negative [facility] DEPARTMENT OF PATHOLOGY AND GENOMIC MEDICINE Bilirubin, UA Negative Negative [facility] DEPARTMENT OF PATHOLOGY AND GENOMIC MEDICINE Blood, UA Moderate (A) Negative [facility] DEPARTMENT OF PATHOLOGY AND GENOMIC MEDICINE Nitrite, UA Positive (A) Negative [facility] DEPARTMENT OF PATHOLOGY AND GENOMIC MEDICINE Urobilinogen, UA 2.0 (A) <2.0 [facility] DEPARTMENT OF PATHOLOGY AND GENOMIC MEDICINE Leukocyte esterase, UA Large (A) Negative [facility] DEPARTMENT OF PATHOLOGY AND GENOMIC MEDICINE Epithelial cells, UA 3 /HPF [facility] DEPARTMENT OF PATHOLOGY AND GENOMIC MEDICINE WBC, UA >180 (H) 0 - 4 /HPF [facility] DEPARTMENT OF PATHOLOGY AND GENOMIC MEDICINE RBC, UA 7 (H) 0 - 5 /HPF [facility] DEPARTMENT OF PATHOLOGY AND GENOMIC MEDICINE Bacteria, UA Many (A) None seen [facility] DEPARTMENT OF PATHOLOGY AND GENOMIC MEDICINE Yeast, UA None seen [facility] DEPARTMENT OF PATHOLOGY AND GENOMIC MEDICINE Yeast with pseudohyphae, UA None seen [facility] DEPARTMENT OF PATHOLOGY AND GENOMIC MEDICINE Specimen Urine Performing Organization Address City/[facility]ode Phone Number [facility] DEPARTMENT OF PATHOLOGY AND [address] [place], [place] [phone] [facility] Gram stain (07/11/2017 1:57 AM) Gram stain result Many WBC's [facility] DEPARTMENT OF PATHOLOGY Many Gram positive cocci in clusters AND GENOMIC MEDICINE Comment: Specimen Information Specimen Source: Urine Specimen Site: Random void Specimen Urine - Random void Performing Organization Address City/[facility]t Phone Number [facility] DEPARTMENT OF PATHOLOGY AND [address] [place] [phone] [facility] Urine culture (07/11/2017 1:57 AM) Urine culture isolate Staphylococcus aureus [facility] DEPARTMENT OF 10-5 cfu/ml PATHOLOGY AND GENOMIC [...] RAH 1 mcg/mL: Susceptible Performing Organization Address [facility] Phone Number [facility] DEPARTMENT OF PATHOLOGY AND [address] [place], [place] [phone] [facility] XR Knee 1 Or 2 Vw Right (07/06/2017 2:34 AM) Narrative Performed At EXAM:XR KNEE 1 OR 2 VW RIGHT [facility] CLINICAL HISTORY:RECENT TRAUMAKNEE COMPARISON:None. IMPRESSION: 1.No evidence of acute displaced right knee fracture or dislocation. No significant joint effusion. Question of mild medial soft tissue swelling. [facility]-[id number] Procedure Note Interface, Radiology Results Incoming - 07/06/2017 2:38 AM CDT EXAM: XR KNEE 1 OR 2 VW RIGHT CLINICAL HISTORY: RECENT TRAUMA KNEE COMPARISON: None. IMPRESSION: 1. No evidence of acute displaced right knee fracture or dislocation. No significant joint effusion. Question of mild medial soft tissue swelling. [id number] Performing Organization Address [facility] Phone Number [facility] [address] [place] [address] after 10/07/2016
--- OUTSIDE RECORDS SUMMARY | 2017-10-08 02:29 | XMS REPORT | Clinical Summary ---
:1970 Author Organization [facility] Address [address] [place] [address] Phone Care Team Providers Name Role Phone [...] Dx);Nausea;Acute constipation;Acute superficial gastritis without hemorrhage after 10/07/2016 Social History Tobacco Use Types [...] Not on file Results Not on fileafter 10/07/2016
--- OUTSIDE RECORDS SUMMARY | 2017-10-08 02:29 | XMS REPORT ---
:1970 [facility] [address] [place] [address] [address] [place] [address] Care Team Providers Name Role Phone UNKNOWN, REFFERING Primary Care Provider Unavailable Problems This patient has no known problems. Allergies, Adverse Reactions, Alerts This patient has no known allergies or adverse reactions. Medications This patient has no known medications. Encounters Start End Encounter Admission Attending Care Care Encounter Date/Time Date/Time Type Type Clinicians Facility Department ID 2017-07-02 2017-07-02 Emergency E [facility] MED [id number] 08:16:00 08:16:00
[2017-10-08] MEDS ORDERED: ONDANSETRON 4 MG (ODT) TAB ONE (03:02)
--- NOTE | 2017-10-08 03:41 | EDPHYS ---
Physician Documentation [facility] Name: Dayami Espinosa Age: 47 yrs Sex: Female : 1970 Arrival Date: 10/08/2017 Time: 02:28 Bed 18 Private MD: ED Physician Jaylen Otto HPI: 10/08 03:31 This 47 yrs old Female presents to ER via EMS with complaints of weak and kdr nauseated. 03:31 The patient states that she was a [employer] about two hours ago when she became weak and kdr nauseated. She was seen here last night for abdominal pain and period cramps. The only significant finding was slight worsening anemia. Onset: The symptoms/episode began/occurred suddenly. Severity of symptoms: At their worst the symptoms were mild in the emergency department the symptoms are unchanged. The patient has not experienced similar symptoms in the past. The patient has been recently seen at the [facility] Emergency Department, yesterday. 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 - Social history:: Smoking status: Patient uses tobacco products, smokes one-half pack cigarettes per day, Patient uses alcohol, occasionally. Patient/guardian denies using street drugs. - Ebola Screening: : No symptoms or risks identified at this time. ROS: 03:31 Constitutional: Negative for fever, chills, and weight loss, Eyes: Negative for injury, kdr pain, redness, and discharge, Neck: Negative for injury, pain, and swelling, Cardiovascular: Negative for chest pain, palpitations, and edema, Respiratory: Negative for shortness of breath, cough, wheezing, and pleuritic chest pain, Abdomen/GI: Negative for abdominal pain, nausea, vomiting, diarrhea, and constipation, Back: Negative for injury and pain, : Negative for injury, bleeding, discharge, and swelling, MS/Extremity: Negative for injury and deformity, Skin: Negative for injury, rash, and discoloration, Psych: Negative for depression, anxiety, suicide ideation, homicidal ideation, and hallucinations, Allergy/Immunology: Negative for hives, rash, and allergies, Endocrine: Negative for neck swelling, polydipsia, polyuria, polyphagia, and marked weight changes, Hematologic/Lymphatic: Negative for swollen nodes, abnormal bleeding, and unusual bruising. 03:31 Neuro: Positive for weakness. Exam: 03:31 Constitutional: This is a well developed, well nourished patient who is awake, alert, kdr and in no acute distress. Head/Face: Normocephalic, atraumatic. Chest/axilla: Normal chest wall appearance and motion. Nontender with no deformity. No lesions are appreciated. Cardiovascular: Regular rate and rhythm with a normal S1 and S2. No gallops, murmurs, or rubs. Normal PMI, no JVD. No pulse deficits. Respiratory: Lungs have equal breath sounds bilaterally, clear to auscultation and percussion. No rales, rhonchi or wheezes noted. No increased work of breathing, no retractions or nasal flaring. Abdomen/GI: Soft, non-tender, with normal bowel sounds. No distension or tympany. No guarding or rebound. No evidence of tenderness throughout. Back: No spinal tenderness. No costovertebral tenderness. Full range of motion. MS/ Extremity: Pulses equal, no cyanosis. Neurovascular intact. Full, normal range of motion. Vital Signs: 02:35 BP 105 / 67; Pulse 66; Resp 18 S; Temp 98.3(O); Pulse Ox 99% on R/A; Weight 46.72 kg bb (R); Height 5 ft. 3 in. (160.02 cm) (R); Pain 10/10; 03:03 BP 92 / 65 Supine; Pulse 63; jd3 03:05 BP 93 / 72 Sitting; Pulse 60; jd3 03:07 BP 92 / 77 Standing; Pulse 64; Resp 16 S; Pulse Ox 100% on R/A; jd3 04:15 BP 99 / 74; Pulse 65; Resp 16 S; Pulse Ox 99% on R/A; jd3 02:35 Body Mass Index 18.25 (46.72 kg, 160.02 cm) bb MDM: 03:31 Data reviewed: vital signs, nurses notes. Counseling: I had a detailed discussion with kdr the patient and/or guardian regarding: the historical points, exam findings, and any diagnostic results supporting the discharge/admit diagnosis, lab results, the need for outpatient follow up. 03:40 Patient medically screened. kdr 10/08 02:58 Order name: Orthostatics; Complete Time: 03:10 kdr Administered Medications: 02:59 Drug: Zofran 4 mg Route: PO; jd3 04:15 Follow up: Response: No adverse reaction jd3 Disposition: 10/08/17 03:40 Discharged to Home. Impression: Weakness, Anemia, unspecified, Nausea. - Condition is Stable. - Discharge Instructions: Anemia, Nonspecific, Fatigue, Weakness, [id number]. - Prescriptions for Zofran 4 mg Oral Tablet - take 1 tablet by ORAL route every 12 hours As needed; 6 tablet. - Medication Reconciliation Form, Thank You Letter form. - Follow up: Private Physician; When: 1 - 2 days; Reason: If symptoms return, Further diagnostic work-up, Recheck today's complaints, Continuance of care, Re-evaluation by your physician. - Problem is an ongoing problem. - Symptoms have improved. Signatures: Jaylen Otto MD MD kdr Belen Estrada, RN RN bb Matt Meraz RN RN jd3 Corrections: (The following items were deleted from the chart) 04:16 03:40 10/08/2017 03:40 Discharged to Home. Impression: Weakness; Anemia, unspecified; jd3 Nausea. Condition is Stable. Forms are Medication Reconciliation Form, Thank You Letter, Antibiotic Education, Prescription Opioid Use. Follow up: Private Physician; When: 1 - 2 days; Reason: If symptoms return, Further diagnostic work-up, Recheck today's complaints, Continuance of care, Re-evaluation by your physician. Problem is an ongoing problem. Symptoms have improved. kdr
--- NOTE | 2017-10-08 03:41 | ER ---
Nurse's Notes [facility] Name: Dayami Espinosa Age: 47 yrs Sex: Female : 1970 Arrival Date: 10/08/2017 Time: 02:28 Bed 18 Private MD: Diagnosis: Weakness;Anemia, unspecified;Nausea Presentation: 10/08 02:33 Presenting complaint: Patient states: she was walking around in front of [employer] and bb felt like she was going to faint. Transition of care: patient was not received from another setting of care. Onset of symptoms was October 08, 2017. Risk Assessment: Do you want to hurt yourself or someone else? Patient reports no desire to harm self or others. Initial Sepsis Screen: Does the patient meet any 2 criteria? No. Patient's initial sepsis screen is negative. Does the patient have a suspected source of infection? No. Patient's initial sepsis screen is negative. Care prior to arrival: None. 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 - Social history:: Smoking status: Patient uses tobacco products, smokes one-half pack cigarettes per day, Patient uses alcohol, occasionally. Patient/guardian denies using street drugs. - Ebola Screening: : No symptoms or risks identified at this time. Screenin:39 Abuse screen: Denies threats or abuse. Nutritional screening: No deficits noted. jd3 Tuberculosis screening: No symptoms or risk factors identified. Fall Risk Ambulatory Aid- None/Bed Rest/Nurse Assist (0 pts). Gait- Normal/Bed Rest/Wheelchair (0 pts) Mental Status- Oriented to own ability (0 pts). Total Alfred Fall Scale indicates No Risk (0-24 pts). Assessment: 02:37 General: Appears uncomfortable, Behavior is calm, cooperative, appropriate for age. jd3 Pain: Complains of pain in abdomen Quality of pain is described as aching, Also complains of nausea. Neuro: Level of Consciousness is awake, alert, obeys commands, Oriented to person, place, time, situation, Appropriate for age Moves all extremities. Full function Gait is steady, Speech is normal, Facial symmetry appears normal, Pupils are PERRLA, Intact Reports dizziness, weakness. Cardiovascular: Heart tones S1 S2 present Capillary refill < 3 seconds Patient's skin is warm and dry. Respiratory: Airway is patent Respiratory effort is even, unlabored, Respiratory pattern is regular, symmetrical, Breath sounds are clear bilaterally. GI: Abdomen is flat, Bowel sounds present X 4 quads. Abd is soft and non tender X 4 quads. Reports nausea. : No signs and/or symptoms were reported regarding the genitourinary system. EENT: No signs and/or symptoms were reported regarding the EENT system. Derm: Skin is intact, Skin is dry, Skin is normal, Skin temperature is warm. Musculoskeletal: Circulation, motion, and sensation intact. Range of motion: intact in all extremities. 03:09 Reassessment: Patient appears in no apparent distress at this time. Patient and/or jd3 family updated on plan of care and expected duration. Pain level reassessed. Patient is alert, oriented x 3, equal unlabored respirations, skin warm/dry/pink. 04:14 Reassessment: Patient appears in no apparent distress at this time. Patient and/or jd3 family updated on plan of care and expected duration. Pain level reassessed. Patient is alert, oriented x 3, equal unlabored respirations, skin warm/dry/pink. pt reported understanding of discharge instructions, assisted pt to lobby to wait for rode in wheelchair. Vital Signs: 02:35 BP 105 / 67; Pulse 66; Resp 18 S; Temp 98.3(O); Pulse Ox 99% on R/A; Weight 46.72 kg bb (R); Height 5 ft. 3 in. (160.02 cm) (R); Pain 10/10; 03:03 BP 92 / 65 Supine; Pulse 63; jd3 03:05 BP 93 / 72 Sitting; Pulse 60; jd3 03:07 BP 92 / 77 Standing; Pulse 64; Resp 16 S; Pulse Ox 100% on R/A; jd3 04:15 BP 99 / 74; Pulse 65; Resp 16 S; Pulse Ox 99% on R/A; jd3 02:35 Body Mass Index 18.25 (46.72 kg, 160.02 cm) bb ED Course: 02:28 Patient arrived in ED. am2 02:30 Matt Meraz, RN is Primary Nurse. jd3 02:33 Jaylen Otto MD is Attending Physician. kdr 02:34 Triage completed. bb 02:35 Arm band placed on Patient placed in an exam room. bb 02:40 Patient has correct armband on for positive identification. Bed in low position. Call jd3 light in reach. Side rails up X 1. 04:13 No provider procedures requiring assistance completed. Patient did not have IV access jd3 during this emergency room visit. Administered Medications: 02:59 Drug: Zofran 4 mg Route: PO; jd3 04:15 Follow up: Response: No adverse reaction jd3 Outcome: 03:40 Discharge ordered by . kdr 04:14 Discharged to home via wheelchair. jd3 04:14 Condition: stable 04:14 Discharge instructions given to patient, Instructed on discharge instructions, follow up and referral plans. medication usage, Demonstrated understanding of instructions, follow-up care, medications, Prescriptions given X 1. 04:16 Patient left the ED. jd3 Signatures: Jaylen Otto MD MD [facility] Belen Estrada, RN RN bb Em Wu am2 Matt Meraz, BENI RN jverónica
== END 2017-10-08 04:16 | disposition home or self-care (01) ==
LOC: ER 02:27
DX: D64.9 Anemia, unspecified (principal); R11.0 Nausea; F17.210 Nicotine dependence, cigarettes, uncomplicated; F31.9 Bipolar disorder, unspecified
CPT/HCPCS: 99283

== ENCOUNTER 2017-10-11 04:40 | Emergency (ER) | payer SELFPAY ==
--- OUTSIDE RECORDS SUMMARY | 2017-10-11 04:42 | XMS REPORT ---
:1970 Author Organization [facility] Address [address] [place] [address] Care Team Providers Name Role Phone UNKNOWN, REFFERING Primary Care Provider Unavailable Problems This patient has no known problems. Allergies, Adverse Reactions, Alerts This patient has no known allergies or adverse reactions. Medications This patient has no known medications. Encounters Start End Encounter Admission Attending Care Care Encounter Date/Time Date/Time Type Type Clinicians Facility Department ID 2017-07-02 2017-07-02 Emergency E [facility] MED [id number] 08:16:00 08:16:00
--- OUTSIDE RECORDS SUMMARY | 2017-10-11 04:42 | XMS REPORT | Clinical Summary ---
:1970 Author Organization [facility] Address [address] [place] [address] Care Team Providers Name Role Phone Asked, [...] right knee MD Luisito (Primary Dx) after 10/10/2016 Social History Tobacco Use Types Packs/Day Years [...] procedure are in the results section. after 10/10/[address] Renal Stone Protocol (07/11/2017 2:53 AM) Narrative Performed At CT RENAL STONE PROTOCOL [facility] CLINICAL INDICATION:llq abd pain TECHNIQUE: Multidetector CT [...] is of unclear etiology and clinical significance. [facility]-[id number] Procedure Note Interface, Radiology Results Incoming - [...] is of unclear etiology and clinical significance. [facility]-[id number] Performing Organization Address City/[facility]/Zipcode Phone Number [facility] [address] [place] [address] hCG qualitative, urine screen (07/11/2017 2:29 AM) hCG qualitative, urine NegativeComment: [facility] DEPARTMENT OF Sensitivity of HCG test: 25 PATHOLOGY AND GENOMIC mIU/mL MEDICINE Specimen Urine Performing Organization Address City/[facility] Services[facility] Phone Number [facility] DEPARTMENT OF PATHOLOGY AND [address] [place] [phone] GENOMIC MEDICINE Urinalysis screen and microscopy, with reflex to culture (07/11/2017 1:57 AM) Specimen site Random void [facility] DEPARTMENT OF PATHOLOGY AND GENOMIC MEDICINE Color, UA Red [facility] DEPARTMENT OF PATHOLOGY AND GENOMIC MEDICINE Appearance, UA Cloudy [facility] DEPARTMENT OF PATHOLOGY AND GENOMIC MEDICINE Specific gravity, UA 1.018 1.001 - 1.035 [facility] DEPARTMENT OF PATHOLOGY AND GENOMIC MEDICINE pH, UA 6.0 5.0 - 8.5 [facility] DEPARTMENT OF PATHOLOGY AND GENOMIC MEDICINE Protein, UA 1+ (A) Negative [facility] DEPARTMENT OF PATHOLOGY AND GENOMIC MEDICINE Glucose, UA Negative Negative [facility] DEPARTMENT OF PATHOLOGY AND GENOMIC MEDICINE Ketones, UA Negative Negative [facility] DEPARTMENT OF PATHOLOGY AND GENOMIC MEDICINE Bilirubin, UA Negative Negative [facility] DEPARTMENT OF PATHOLOGY AND GENOMIC MEDICINE Blood, UA Moderate (A) Negative [facility] DEPARTMENT OF PATHOLOGY AND GENOMIC MEDICINE Nitrite, UA Positive (A) Negative [facility] DEPARTMENT OF PATHOLOGY AND GENOMIC MEDICINE Urobilinogen, UA 2.0 (A) <2.0 [facility] DEPARTMENT OF PATHOLOGY AND GENOMIC MEDICINE Leukocyte esterase, UA Large (A) Negative [facility] DEPARTMENT OF PATHOLOGY AND GENOMIC MEDICINE Epithelial cells, UA 3 /HPF [facility] DEPARTMENT OF PATHOLOGY AND GENOMIC MEDICINE WBC, UA >180 (H) 0 - 4 /HPF [facility] DEPARTMENT OF PATHOLOGY AND GENOMIC MEDICINE RBC, UA 7 (H) 0 - 5 /HPF [facility] DEPARTMENT OF PATHOLOGY AND GENOMIC MEDICINE Bacteria, UA Many (A) None seen [facility] DEPARTMENT OF PATHOLOGY AND GENOMIC MEDICINE Yeast, UA None seen [facility] DEPARTMENT OF PATHOLOGY AND GENOMIC MEDICINE Yeast with pseudohyphae, UA None seen [facility] DEPARTMENT OF PATHOLOGY AND GENOMIC MEDICINE Specimen Urine Performing Organization Address City/[facility] Services[facility] Phone Number [facility] DEPARTMENT OF PATHOLOGY AND [address] [place], [place] [phone] [facility] Gram stain (07/11/2017 1:57 AM) Gram stain result Many WBC's [facility] DEPARTMENT OF PATHOLOGY Many Gram positive cocci in clusters AND GENOMIC MEDICINE Comment: Specimen Information Specimen Source: Urine Specimen Site: Random void Specimen Urine - Random void Performing Organization Address City/[facility] Services[facility] Phone Number [facility] DEPARTMENT OF PATHOLOGY AND [address] [place] [phone] [facility] Urine culture (07/11/2017 1:57 AM) Urine culture isolate Staphylococcus aureus [facility] DEPARTMENT OF 10-5 cfu/ml PATHOLOGY AND GENOMIC [...] RAH 1 mcg/mL: Susceptible Performing Organization Address [facility] Services[facility] Phone Number [facility] DEPARTMENT OF PATHOLOGY AND [address] [place], [place] [phone] [facility] XR Knee 1 Or 2 Vw Right (07/06/2017 2:34 AM) Narrative Performed At EXAM:XR KNEE 1 OR 2 VW RIGHT [facility] CLINICAL HISTORY:RECENT TRAUMAKNEE COMPARISON:None. IMPRESSION: 1.No evidence of acute displaced right knee fracture or dislocation. No significant joint effusion. Question of mild medial soft tissue swelling. [facility]-[id number] Procedure Note Interface, Radiology Results Incoming - 07/06/2017 2:38 AM CDT EXAM: XR KNEE 1 OR 2 VW RIGHT CLINICAL HISTORY: RECENT TRAUMA KNEE COMPARISON: None. IMPRESSION: 1. No evidence of acute displaced right knee fracture or dislocation. No significant joint effusion. Question of mild medial soft tissue swelling. [facility]-[id number] Performing Organization Address [facility] Phone Number [facility] [address] [place] [address] after 10/10/2016
--- OUTSIDE RECORDS SUMMARY | 2017-10-11 04:42 | XMS REPORT | Clinical Summary ---
:1970 Author Organization [facility] Address [address] [place] [address] Phone Care Team Providers Name Role Phone [...] Dx);Nausea;Acute constipation;Acute superficial gastritis without hemorrhage after 10/10/2016 Social History Tobacco Use Types [...] Not on file Results Not on fileafter 10/10/2016
[2017-10-11] MEDS ORDERED: MAGNE/ALUM HYDROXD 30 ML UCUP ONE (05:09)
--- NOTE | 2017-10-11 05:28 | ER ---
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 Transition of care: patient was not received from another setting of care. Onset of symptoms was October 11, 2017. Risk Assessment: Do you want to hurt yourself or someone else? Patient reports no desire to harm self or others. Initial Sepsis Screen: Does the patient meet any 2 criteria? No. Patient's initial sepsis screen is negative. Does the patient have a suspected source of infection? No. Patient's initial sepsis screen is negative. Care prior to arrival: None. 04:42 Method Of Arrival: EMS: [facility] ak1 04:42 Acuity: JAZMIN 4 ak1 Triage Assessment: 04:46 General: Appears in no apparent distress. Behavior is cooperative, agitated. Pain: ak1 Complains of pain in xyphoid area and mid-sternal area. EENT: No signs and/or symptoms were reported regarding the EENT system. Neuro: No deficits noted. Cardiovascular: No deficits noted. Respiratory: No deficits noted. GI: Reports diarrhea, nausea, vomiting. : No signs and/or symptoms were reported regarding the genitourinary system. Derm: No signs and/or symptoms reported regarding the dermatologic system. Musculoskeletal: No signs and/or symptoms reported regarding the musculoskeletal system. 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 - Social history:: Smoking status: Patient uses tobacco products, smokes one-half pack cigarettes per day. - Ebola Screening: : No symptoms or risks identified at this time. - Family history:: not pertinent. Screenin:51 Abuse screen: Denies threats or abuse. Denies injuries from another. Nutritional ak1 screening: No deficits noted. Tuberculosis screening: No symptoms or risk factors identified. Fall Risk None identified. Assessment: 04:51 Reassessment: Patient appears in no apparent distress at this time. No changes from ak1 previously documented assessment. Patient and/or family updated on plan of care and expected duration. Pain level reassessed. see triage assessment. General: Appears in no apparent distress. slender, Behavior is cooperative, agitated. 04:55 General: Appears in no apparent distress. comfortable, Behavior is calm, cooperative, ao appropriate for age. Pain: Complains of pain in abdomen Pain currently is 2 out of 10 on a pain scale. Neuro: Level of Consciousness is awake, alert, obeys commands, Oriented to person, place, time, situation, Appropriate for age Moves all extremities. Speech is normal. Cardiovascular: Capillary refill < 3 seconds Patient's skin is warm and dry. Respiratory: Airway is patent Respiratory effort is even, unlabored, Respiratory pattern is regular, symmetrical. GI: Abdomen is flat. : No signs and/or symptoms were reported regarding the genitourinary system. EENT: No signs and/or symptoms were reported regarding the EENT system. Derm: Skin is intact, Skin is pink, warm \\T\\ dry. normal, Skin temperature is warm. Musculoskeletal: No signs and/or symptoms reported regarding the musculoskeletal system. Range of motion: intact in all extremities. 05:45 Reassessment: DC instructions given to patient. Patient agree with the POC and to ao follow up with the POC. Patient has no questions at this time. Vital Signs: 04:46 BP 114 / 74; Pulse 71; Resp 18; Temp 97.4(TE); Pulse Ox 100% on R/A; Weight 52.16 kg ak1 (R); Height 5 ft. 2 in. (157.48 cm) (R); Pain 7/10; 04:46 Body Mass Index 21.03 (52.16 kg, 157.48 cm) ak1 ED Course: 04:42 Patient arrived in ED. ak1 04:45 Triage completed. ak1 04:46 Arm band placed on Patient placed in an exam room, on a stretcher, on pulse oximetry, ak1 Patient notified of wait time. 04:49 Darrell Mc MD is Attending Physician. sybil 04:51 Patient has correct armband on for positive identification. Bed in low position. Call ak1 light in reach. Side rails up X2. Pulse ox on. NIBP on. 05:08 Chago Selby, RN is Primary Nurse. ao 05:49 No provider procedures requiring assistance completed. Patient did not have IV access ao during this emergency room visit. Administered Medications: 05:20 Drug: Cipro 500 mg Route: PO; ao 05:49 Follow up: Response: No adverse reaction ao 05:32 Not Given (Patient Refused): GI Cocktail without - (Maalox Suspension 30 ml, ao Lidocaine Liquid 2 % 15 ml) PO once Outcome: 05:27 Discharge ordered by . sybil 05:49 Discharged to home ambulatory. ao 05:49 Condition: stable 05:49 Discharge instructions given to patient, Instructed on discharge instructions, follow up and referral plans. Demonstrated understanding of instructions, follow-up care, medications, Prescriptions given X 3. 05:52 Patient left the ED. ao Addendum: 10/14/2017 11:16 Addendum: Culture Results: Positive urine culture. No further action required. Bacteria a a5 sensitive to prescribed antibiotic. Signatures: Darrell Mc MD MD cha Calderon, Audri, RN RN aa5 Marcia Maciel RN RN ak1 Chago Selby, BENI BAZAN ao
--- NOTE | 2017-10-11 05:28 | EDPHYS ---
Physician Documentation [facility] Name: Dayami Espinosa Age: 47 yrs Sex: Female : 1970 Arrival Date: 10/11/2017 Time: 04:42 Bed 6 Private MD: ED Physician Darrell Mc HPI: 10/11 05:02 This 47 yrs old Female presents to ER via EMS with complaints of Epigastric sybil Pain. 05:02 The patient or guardian reports chest pain that is located primarily in the anterior sybil chest wall. Onset: 1 day(s) ago. The patient presents with abdominal pain in the epigastric area, in the upper abdomen. Onset: The symptoms/episode began/occurred just prior to arrival, today. The patient presents to the emergency department with nausea, vomiting, diarrhea. Onset: The symptoms/episode began/occurred today, yesterday. Possible causes: unknown. The symptoms are aggravated by nothing. The symptoms are alleviated by nothing. The pain does not radiate. 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 - Social history:: Smoking status: Patient uses tobacco products, smokes one-half pack cigarettes per day. - Ebola Screening: : No symptoms or risks identified at this time. - Family history:: not pertinent. ROS: 05:02 Constitutional: Negative for fever, chills, and weight loss, Eyes: Negative for injury, sybil pain, redness, and discharge, ENT: Negative for injury, pain, and discharge, Neck: Negative for injury, pain, and swelling, Respiratory: Negative for shortness of breath, cough, wheezing, and pleuritic chest pain, Back: Negative for injury and pain, : Negative for injury, bleeding, discharge, and swelling, MS/Extremity: Negative for injury and deformity, Skin: Negative for injury, rash, and discoloration, Neuro: Negative for headache, weakness, numbness, tingling, and seizure, Psych: Negative for depression, anxiety, suicide ideation, homicidal ideation, and hallucinations, Allergy/Immunology: Negative for hives, rash, and allergies, Endocrine: Negative for neck swelling, polydipsia, polyuria, polyphagia, and marked weight changes, Hematologic/Lymphatic: Negative for swollen nodes, abnormal bleeding, and unusual bruising. 05:02 Cardiovascular: Positive for chest pain. 05:02 Abdomen/GI: Positive for abdominal pain, of the epigastric area, right upper quadrant and left upper quadrant. Exam: 05:02 Constitutional: This is a well developed, well nourished patient who is awake, alert, sybil and in no acute distress. Head/Face: Normocephalic, atraumatic. Eyes: Pupils equal round and reactive to light, extra-ocular motions intact. Lids and lashes normal. Conjunctiva and sclera are non-icteric and not injected. Cornea within normal limits. Periorbital areas with no swelling, redness, or edema. ENT: Nares patent. No nasal discharge, no septal abnormalities noted. Tympanic membranes are normal and external auditory canals are clear. Oropharynx with no redness, swelling, or masses, exudates, or evidence of obstruction, uvula midline. Mucous membranes moist. Neck: Trachea midline, no thyromegaly or masses palpated, and no cervical lymphadenopathy. Supple, full range of motion without nuchal rigidity, or vertebral point tenderness. No Meningismus. Chest/axilla: Normal chest wall appearance and motion. Nontender with no deformity. No lesions are appreciated. Cardiovascular: Regular rate and rhythm with a normal S1 and S2. No gallops, murmurs, or rubs. Normal PMI, no JVD. No pulse deficits. Respiratory: Lungs have equal breath sounds bilaterally, clear to auscultation and percussion. No rales, rhonchi or wheezes noted. No increased work of breathing, no retractions or nasal flaring. Abdomen/GI: Soft, non-tender, with normal bowel sounds. No distension or tympany. No guarding or rebound. No evidence of tenderness throughout. Back: No spinal tenderness. No costovertebral tenderness. Full range of motion. Skin: Warm, dry with normal turgor. Normal color with no rashes, no lesions, and no evidence of cellulitis. MS/ Extremity: Pulses equal, no cyanosis. Neurovascular intact. Full, normal range of motion. Neuro: Awake and alert, GCS 15, oriented to person, place, time, and situation. Cranial nerves II-XII grossly intact. Motor strength 5/5 in all extremities. Sensory grossly intact. Cerebellar exam normal. Normal gait. Psych: Awake, alert, with orientation to person, place and time. Behavior, mood, and affect are within normal limits. Vital Signs: 04:46 BP 114 / 74; Pulse 71; Resp 18; Temp 97.4(TE); Pulse Ox 100% on R/A; Weight 52.16 kg ak1 (R); Height 5 ft. 2 in. (157.48 cm) (R); Pain 7/10; 04:46 Body Mass Index 21.03 (52.16 kg, 157.48 cm) ak1 MDM: 04:49 Patient medically screened. [facility] 10/11 05:26 Order name: Urine Culture [facility] 10/11 05:26 Order name: Urine Dipstick--Ancillary (enter results) [facility] 10/11 05:00 Order name: EKG; Complete Time: 05:00 [facility] 10/11 05:33 Order name: Urine --Ancillary (enter results) [facility] 10/11 05:00 Order name: Urine Dipstick-Ancillary (obtain specimen); Complete Time: 05:25 [facility] 10/11 05:00 Order name: Urine Test (obtain specimen); Complete Time: 05:30 [facility] 10/11 05:00 Order name: EKG - Nurse/Tech; Complete Time: 05:30 [facility] Administered Medications: 05:20 Drug: Cipro 500 mg Route: PO; ao 05:49 Follow up: Response: No adverse reaction ao 05:32 Not Given (Patient Refused): GI Cocktail without - (Maalox Suspension 30 ml, ao Lidocaine Liquid 2 % 15 ml) PO once Disposition: 10/11/17 05:27 Discharged to Home. Impression: Abdominal tenderness, Gastritis, unspecified, Chest pain, unspecified, Dysmenorrhea, unspecified, Cystitis. - Condition is Stable. - Discharge Instructions: Abdominal Pain, Adult, Nonspecific Chest Pain, Dysmenorrhea, Dysuria, Abdominal Pain, Adult, [id number], Nonspecific Chest Pain, [id number]-dz-[id number], Aspirin and Your Heart. - Prescriptions for Protonix 40 mg Oral Tablet, Delayed Release (E.C.) - take 1 tablet by ORAL route once daily; 15 tablet. Zofran 4 mg Oral Tablet - take 1 tablet by ORAL route every 12 hours As needed; 20 tablet. Cipro 250 mg Oral Tablet - take 1 tablet by ORAL route every 12 hours; 14 tablet. - Medication Reconciliation Form, Thank You Letter, Antibiotic Education, Prescription Opioid Use form. - Follow up: Private Physician; When: 2 - 3 days; Reason: Recheck today's complaints, Continuance of care, Re-evaluation by your physician. - Problem is new. - Symptoms have improved. Signatures: Dispatcher [employer] EDMS Darrell Mc MD MD cha Krenek, Amber RN RN ak1 Chago Selby RN RN ao Corrections: (The following items were deleted from the chart) 05:52 05:27 10/11/2017 05:27 Discharged to Home. Impression: Abdominal tenderness; Gastritis, ao unspecified; Chest pain, unspecified; Dysmenorrhea, unspecified; Cystitis. Condition is Stable. Discharge Instructions: Abdominal Pain, Adult, Nonspecific Chest Pain, Dysmenorrhea, Abdominal Pain, Adult, Oyqm-me-[id number], Nonspecific Chest Pain, Swpd-ov-Edet, Aspirin and Your Heart. Prescriptions for Protonix 40 mg Oral Tablet, Delayed Release (E.C.) - take 1 tablet by ORAL route once daily; 15 tablet, Zofran 4 mg Oral Tablet - take 1 tablet by ORAL route every 12 hours As needed; 20 tablet. and Forms are Medication Reconciliation Form, Thank You Letter, Antibiotic Education, Prescription Opioid Use. Follow up: Private Physician; When: 2 - 3 days; Reason: Recheck today's complaints, Continuance of care, Re-evaluation by your physician. Problem is new. Symptoms have improved. sybil
[2017-10-11 05:33] LABS: Urine Blood 2+ (NEG); Urine Glucose NEGATIVE (NEG); Urine Protein 1+ (NEG); Urine Specific Gravity >1.030 (1.005-1.030); Urine pH 5.5 (5.0-7.0)
[2017-10-11] MEDS ORDERED: CIPROFLOXACIN HCL 500 MG TAB ONE (05:38)
[2017-10-11 06:00] LABS: Urine Specific Gravity >1.030 (1.005-1.030)
--- NOTE | 2017-10-11 08:36 | EKG ---
Test Date: 2017-10-11 Test Time: 05:12:41 [place] Master: BRIAN MEASUREMENT RESULTS: Intervals: Rate: 69 DC: 156 QRSD: 78 QT: 406 QTc: 435 [place]: P: 74 DC: 156 QRS: 87 T: 75 INTERPRETIVE STATEMENTS: Normal sinus rhythm Normal ECG Compared to ECG 06/05/2017 03:47:31 No significant changes Electronically Signed On 10-11-17 08:35:05 CDT by Chaka Burnett
== END 2017-10-11 05:52 | disposition home or self-care (01) ==
LOC: ER 04:40
DX: K29.70 Gastritis, unspecified, without bleeding (principal); R07.9 Chest pain, unspecified; N30.90 Cystitis, unspecified without hematuria; N94.6 Dysmenorrhea, unspecified; F17.210 Nicotine dependence, cigarettes, uncomplicated; F31.9 Bipolar disorder, unspecified; Z88.1 Allergy status to other antibiotic agents; Z88.8 Allergy status to other drugs, medicaments and biological substances
CPT/HCPCS: 81003; 81025; 87077; 87086; 87088; 87186; 93005; 99284

== ENCOUNTER 2017-10-13 03:43 | Emergency (ER) | payer SELFPAY ==
--- OUTSIDE RECORDS SUMMARY | 2017-10-13 03:45 | XMS REPORT ---
:1970 [facility] Address [address] [place] [address] Care Team Providers Name Role Phone UNKNOWN, [...] 2017-07-02 Emergency E [facility] [id number] 08:16:00 08:16:00
--- OUTSIDE RECORDS SUMMARY | 2017-10-13 03:45 | XMS REPORT | Clinical Summary ---
:1970 Author Organization [facility] Address [address] [place] [address] Phone Care Team Providers Name Role Phone [...] Dx);Nausea;Acute constipation;Acute superficial gastritis without hemorrhage after 10/12/2016 Social History Tobacco Use Types Packs/Day Years [...] Not on file Results Not on fileafter 10/12/2016
--- OUTSIDE RECORDS SUMMARY | 2017-10-13 03:45 | XMS REPORT | Clinical Summary ---
:1970 Author Organization [facility] Address [address] [place] [address] Care Team Providers Name Role Phone Asked, [...] right knee MD Luisito (Primary Dx) after 10/12/2016 Social History Tobacco Use Types [...] procedure are in the results section. after 10/12/[address] Renal Stone Protocol (07/11/2017 2:53 AM) Narrative Performed At CT RENAL STONE PROTOCOL [facility] CLINICAL INDICATION:llq abd pain TECHNIQUE: Multidetector CT [...] is of unclear etiology and clinical significance. [facility]-[id number] Procedure Note Interface, Radiology Results Incoming - [...] is of unclear etiology and clinical significance. [facility]-[id number] Performing Organization Address City/[facility]/Zipcode Phone Number [facility] [address] [place] [address] hCG qualitative, urine screen (07/11/2017 2:29 AM) hCG qualitative, urine NegativeComment: [facility] DEPARTMENT OF Sensitivity of HCG test: 25 PATHOLOGY AND GENOMIC mIU/mL MEDICINE Specimen Urine Performing Organization Address City/[facility] Number [facility] DEPARTMENT OF PATHOLOGY AND [address] [place] [phone] GENOMIC MEDICINE Urinalysis screen and microscopy, with reflex to culture (07/11/2017 1:57 AM) Specimen site Random void [facility] DEPARTMENT OF PATHOLOGY AND GENOMIC MEDICINE Color, UA Red [facility] DEPARTMENT OF PATHOLOGY AND GENOMIC MEDICINE Appearance, UA Cloudy [facility] DEPARTMENT OF PATHOLOGY AND GENOMIC MEDICINE Specific gravity, UA 1.018 1.001 - 1.035 [facility] DEPARTMENT OF PATHOLOGY AND GENOMIC MEDICINE pH, UA 6.0 5.0 - 8.5 [facility] DEPARTMENT OF PATHOLOGY AND GENOMIC MEDICINE Protein, UA 1+ (A) Negative [facility] DEPARTMENT OF PATHOLOGY AND GENOMIC MEDICINE Glucose, UA Negative Negative [facility] DEPARTMENT OF PATHOLOGY AND GENOMIC MEDICINE Ketones, UA Negative Negative [facility] DEPARTMENT OF PATHOLOGY AND GENOMIC MEDICINE Bilirubin, UA Negative Negative [facility] DEPARTMENT OF PATHOLOGY AND GENOMIC MEDICINE Blood, UA Moderate (A) Negative [facility] DEPARTMENT OF PATHOLOGY AND GENOMIC MEDICINE Nitrite, UA Positive (A) Negative [facility] DEPARTMENT OF PATHOLOGY AND GENOMIC MEDICINE Urobilinogen, UA 2.0 (A) <2.0 [facility] DEPARTMENT OF PATHOLOGY AND GENOMIC MEDICINE Leukocyte esterase, UA Large (A) Negative [facility] DEPARTMENT OF PATHOLOGY AND GENOMIC MEDICINE Epithelial cells, UA 3 /HPF [facility] DEPARTMENT OF PATHOLOGY AND GENOMIC MEDICINE WBC, UA >180 (H) 0 - 4 /HPF [facility] DEPARTMENT OF PATHOLOGY AND GENOMIC MEDICINE RBC, UA 7 (H) 0 - 5 /HPF [facility] DEPARTMENT OF PATHOLOGY AND GENOMIC MEDICINE Bacteria, UA Many (A) None seen [facility] DEPARTMENT OF PATHOLOGY AND GENOMIC MEDICINE Yeast, UA None seen [facility] DEPARTMENT OF PATHOLOGY AND GENOMIC MEDICINE Yeast with pseudohyphae, UA None seen [facility] DEPARTMENT OF PATHOLOGY AND GENOMIC MEDICINE Specimen Urine Performing Organization Address City/[facility] Phone Number [facility] DEPARTMENT OF PATHOLOGY AND [address] [place], [place] [phone] [facility] Gram stain (07/11/2017 1:57 AM) Gram stain result Many WBC's [facility] DEPARTMENT OF PATHOLOGY Many Gram positive cocci in clusters AND GENOMIC MEDICINE Comment: Specimen Information Specimen Source: Urine Specimen Site: Random void Specimen Urine - Random void Performing Organization Address City/[facility] Phone Number [facility] DEPARTMENT OF PATHOLOGY AND [address] [place] [phone] [facility] Urine culture (07/11/2017 1:57 AM) Urine culture isolate Staphylococcus aureus [facility] DEPARTMENT OF 10-5 cfu/ml PATHOLOGY AND [...] RAH 1 mcg/mL: Susceptible Performing Organization Address [facility] Phone Number [facility] DEPARTMENT OF PATHOLOGY AND [address] [place], [place] [phone] [facility] MEDICINE XR Knee 1 Or 2 Vw Right (07/06/2017 2:34 AM) Narrative Performed At EXAM:XR KNEE 1 OR 2 VW RIGHT [facility] CLINICAL HISTORY:RECENT TRAUMAKNEE COMPARISON:None. IMPRESSION: 1.No evidence of acute displaced right knee fracture or dislocation. No significant joint effusion. Question of mild medial soft tissue swelling. [facility]-[id number] Procedure Note Interface, Radiology Results Incoming - 07/06/2017 2:38 AM CDT EXAM: XR KNEE 1 OR 2 VW RIGHT CLINICAL HISTORY: RECENT TRAUMA KNEE COMPARISON: None. IMPRESSION: 1. No evidence of acute displaced right knee fracture or dislocation. No significant joint effusion. Question of mild medial soft tissue swelling. [facility]-[id number] Performing Organization Address [facility] Phone Number [facility] [address] [place] [address] after 10/12/2016
--- NOTE | 2017-10-13 04:41 | ER ---
Nurse's Notes [facility] Name: Dayami Espinosa Age: 47 yrs Sex: Female : 1970 Arrival Date: 10/13/2017 Time: 03:44 Bed 5 Private MD: Diagnosis: Contusion of left foot;Bipolar disorder Presentation: 10/13 03:50 Presenting complaint: Patient states: that a week ago she tripped over something and fc hurt her left foot. Continues to have pain that is worse when she walks. No noted bruising or swelling. Transition of care: patient was not received from another setting of care. Onset of symptoms was October 06, 2017. Risk Assessment: Do you want to hurt yourself or someone else? Patient reports no desire to harm self or others. Initial Sepsis Screen: Does the patient meet any 2 criteria? No. Patient's initial sepsis screen is negative. Does the patient have a suspected source of infection? No. Patient's initial sepsis screen is negative. Care prior to arrival: Medication(s) given: Tylenol, 325 mg x 3 tabs taken at 1800. 03:50 Method Of Arrival: Ambulatory fc 03:50 Acuity: JAZMIN 4 fc Triage Assessment: 04:08 General: Appears comfortable, slender, Behavior is cooperative, appropriate for age. fc Pain: Complains of pain in left foot Pain currently is 10 out of 10 on a pain scale. Quality of pain is described as aching, sharp, throbbing, Pain began 1 week ago Is continuous, Aggravated by increased activity, repositioning, weight bearing. EENT: No deficits noted. Neuro: Level of Consciousness is awake, alert, obeys commands, Oriented to person, place, time, situation. Cardiovascular: No deficits noted. Respiratory: No deficits noted. GI: No deficits noted. : No deficits noted. Derm: Skin is pink, warm \T\ dry. Musculoskeletal: Circulation, motion, and sensation intact. Capillary refill < 3 seconds, Range of motion: intact in all extremities, Reports pain in lateral side of left foot and dorsum of left foot. 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 - Social history:: Smoking status: Patient uses tobacco products, smokes one pack cigarettes per day. Patient uses alcohol, occasionally. Patient/guardian denies using street drugs. - Ebola Screening: : Patient negative for fever greater than or equal to 101.5 degrees Fahrenheit, and additional compatible Ebola Virus Disease symptoms Patient denies exposure to infectious person Patient denies travel to an Ebola-affected area in the 21 days before illness onset. - Family history:: not pertinent. Screenin:07 Abuse screen: Denies threats or abuse. Nutritional screening: No deficits noted. fc Tuberculosis screening: No symptoms or risk factors identified. Fall Risk None identified. Assessment: 04:05 General: Appears in no apparent distress. comfortable, Behavior is calm, cooperative, ao appropriate for age. Pain: Complains of pain in left foot. Neuro: Level of Consciousness is awake, alert, obeys commands, Oriented to person, place, time, situation, Moves all extremities. Full function Speech is normal, Facial symmetry appears normal. Cardiovascular: Capillary refill < 3 seconds Patient's skin is warm and dry. Respiratory: Airway is patent Respiratory effort is even, unlabored, Respiratory pattern is regular, symmetrical. GI: Abdomen is flat, non-distended. : No signs and/or symptoms were reported regarding the genitourinary system. EENT: No signs and/or symptoms were reported regarding the EENT system. Derm: Skin is intact, Skin is normal, Skin temperature is warm. Musculoskeletal: Circulation, motion, and sensation intact. Range of motion: intact in all extremities. 05:01 Reassessment: Patient refused the ortho shoe stated that she will be fine. ao Vital Signs: 03:50 BP 102 / 72; Pulse 80; Resp 20; Temp 98.3(O); Pulse Ox 95% on R/A; Weight 46.72 kg (R); fc Height 5 ft. 3 in. (160.02 cm) (R); Pain 10/10; 05:01 BP 100 / 76; Pulse 76; Resp 16; Pulse Ox 100% ; ao 03:50 Body Mass Index 18.25 (46.72 kg, 160.02 cm) ED Course: 03:44 Patient arrived in ED. am2 03:50 Arm band placed on Patient placed in an exam room, on a stretcher. 04:02 Chago Selby, RN is Primary Nurse. ao 04:06 Triage completed. 04:07 Patient has correct armband on for positive identification. Bed in low position. Call light in reach. 04:07 No provider procedures requiring assistance completed. 04:13 Darrell Mc MD is Attending Physician. sybil 04:18 X-ray completed. Portable x-ray completed in exam room. Patient tolerated procedure kw well. 04:23 Foot Left 2 View In Process Unspecified. EDMS 04:39 Kev Boston MD is Referral Physician. [facility] 05:03 Patient did not have IV access during this emergency room visit. ao Administered Medications: No medications were administered Outcome: 04:40 Discharge ordered by . sybil 05:02 Discharged to home ambulatory. ao 05:02 Condition: stable 05:02 Discharge instructions given to patient, Instructed on discharge instructions, follow up and referral plans. Demonstrated understanding of instructions, follow-up care, medications, Prescriptions given X 2. 05:03 Patient left the ED. ao Signatures: Dispatcher [employer] EDNC Darrell Mc MD MD cha Chretien, Felicia, RN RN Josselin Ferrer Alex, RN RN Em Nolasco am2
--- NOTE | 2017-10-13 04:41 | EDPHYS ---
Physician Documentation [facility] Name: Dayami Espinosa Age: 47 yrs Sex: Female : 1970 Arrival Date: 10/13/2017 Time: 03:44 Bed 5 Private MD: ED Physician Darrell Mc HPI: 10/13 04:35 This 47 yrs old Female presents to ER via Ambulatory with complaints of Foot sybil Pain. 04:35 The patient presents with an injury, pain, tenderness. The complaints affect the left sybil foot. Context: The problem was sustained at an unknown location. Onset: The symptoms/episode began/occurred 1 week(s) ago. Modifying factors: The symptoms are alleviated by elevation of extremity. Associated signs and symptoms: The patient has no apparent associated signs or symptoms. Severity of symptoms: At their worst the symptoms were moderate, in the emergency department the symptoms are unchanged. The patient has not experienced similar symptoms in the past. 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 - Social history:: Smoking status: Patient uses tobacco products, smokes one pack cigarettes per day. Patient uses alcohol, occasionally. Patient/guardian denies using street drugs. - Ebola Screening: : Patient negative for fever greater than or equal to 101.5 degrees Fahrenheit, and additional compatible Ebola Virus Disease symptoms Patient denies exposure to infectious person Patient denies travel to an Ebola-affected area in the 21 days before illness onset. - Family history:: not pertinent. ROS: 04:35 Constitutional: Negative for fever, chills, and weight loss, Eyes: Negative for injury, sybil pain, redness, and discharge, ENT: Negative for injury, pain, and discharge, Neck: Negative for injury, pain, and swelling, Cardiovascular: Negative for chest pain, palpitations, and edema, Respiratory: Negative for shortness of breath, cough, wheezing, and pleuritic chest pain, Abdomen/GI: Negative for abdominal pain, nausea, vomiting, diarrhea, and constipation, Back: Negative for injury and pain, : Negative for injury, bleeding, discharge, and swelling, Skin: Negative for injury, rash, and discoloration, Neuro: Negative for headache, weakness, numbness, tingling, and seizure, Psych: Negative for depression, anxiety, suicide ideation, homicidal ideation, and hallucinations, Allergy/Immunology: Negative for hives, rash, and allergies, Endocrine: Negative for neck swelling, polydipsia, polyuria, polyphagia, and marked weight changes, Hematologic/Lymphatic: Negative for swollen nodes, abnormal bleeding, and unusual bruising. 04:35 MS/extremity: Positive for deformity, pain, of the left foot. Exam: 04:37 Constitutional: This is a well developed, well nourished patient who is awake, alert, sybil and in no acute distress. Head/Face: Normocephalic, atraumatic. Eyes: Pupils equal round and reactive to light, extra-ocular motions intact. Lids and lashes normal. Conjunctiva and sclera are non-icteric and not injected. Cornea within normal limits. Periorbital areas with no swelling, redness, or edema. ENT: Nares patent. No nasal discharge, no septal abnormalities noted. Tympanic membranes are normal and external auditory canals are clear. Oropharynx with no redness, swelling, or masses, exudates, or evidence of obstruction, uvula midline. Mucous membranes moist. Neck: Trachea midline, no thyromegaly or masses palpated, and no cervical lymphadenopathy. Supple, full range of motion without nuchal rigidity, or vertebral point tenderness. No Meningismus. Chest/axilla: Normal chest wall appearance and motion. Nontender with no deformity. No lesions are appreciated. Cardiovascular: Regular rate and rhythm with a normal S1 and S2. No gallops, murmurs, or rubs. Normal PMI, no JVD. No pulse deficits. Respiratory: Lungs have equal breath sounds bilaterally, clear to auscultation and percussion. No rales, rhonchi or wheezes noted. No increased work of breathing, no retractions or nasal flaring. Abdomen/GI: Soft, non-tender, with normal bowel sounds. No distension or tympany. No guarding or rebound. No evidence of tenderness throughout. Back: No spinal tenderness. No costovertebral tenderness. Full range of motion. Skin: Warm, dry with normal turgor. Normal color with no rashes, no lesions, and no evidence of cellulitis. Neuro: Awake and alert, GCS 15, oriented to person, place, time, and situation. Cranial nerves II-XII grossly intact. Motor strength 5/5 in all extremities. Sensory grossly intact. Cerebellar exam normal. Normal gait. Psych: Awake, alert, with orientation to person, place and time. Behavior, mood, and affect are within normal limits. 04:37 Musculoskeletal/extremity: Extremities: noted in the dorsum of left foot: decreased ROM, pain. Vital Signs: 03:50 BP 102 / 72; Pulse 80; Resp 20; Temp 98.3(O); Pulse Ox 95% on R/A; Weight 46.72 kg (R); fc Height 5 ft. 3 in. (160.02 cm) (R); Pain 10/10; 05:01 BP 100 / 76; Pulse 76; Resp 16; Pulse Ox 100% ; ao 03:50 Body Mass Index 18.25 (46.72 kg, 160.02 cm) fc MDM: 04:13 Patient medically screened. [facility] 04:37 Data reviewed: vital signs, nurses notes, radiologic studies, plain films. [facility] 10/13 04:23 Order name: Foot Left 2 View EDMS Administered Medications: No medications were administered Disposition: 10/13/17 04:40 Discharged to Home. Impression: Contusion of left foot, Bipolar disorder. - Condition is Stable. - Discharge Instructions: Contusion, Foot Contusion, Contusion, Aweb-ul-Gjlx, Foot Contusion, Ublz-lu-Fpkw. - Prescriptions for Tylenol- Codeine #3 300-30 mg Oral Tablet - take 1 tablet by ORAL route every 4-6 hours As needed; 15 tablet. Motrin IB 200 mg Oral Tablet - take 1 tablet by ORAL route every 6 hours As needed as needed with food; 20 tablet. - Medication Reconciliation Form, Thank You Letter, Antibiotic Education, Prescription Opioid Use form. - Follow up: Private Physician; When: 2 - 3 days; Reason: Recheck today's complaints, Continuance of care, Re-evaluation by your physician. Follow up: Kev Boston MD; When: 2 - 3 days; Reason: Recheck today's complaints, Re-evaluation by your physician. - Problem is new. - Symptoms have improved. Signatures: Dispatcher [employer] [facility] Darrell Mc MD MD cha Chretien, Felicia, RN RN fc Chago Selby RN RN ao Corrections: (The following items were deleted from the chart) 04:23 04:11 Foot Left 3 View+RAD.RAD.BRZ ordered. [facility] 04:40 04:40 10/13/2017 04:40 Discharged to Home. Impression: Contusion of left foot. [facility] Condition is Stable. Forms are Medication Reconciliation Form, Thank You Letter, Antibiotic Education, Prescription Opioid Use. Follow up: Private Physician; When: 2 - 3 days; Reason: Recheck today's complaints, Continuance of care, Re-evaluation by your physician. Follow up: Kev Boston; When: 2 - 3 days; Reason: Recheck today's complaints, Re-evaluation by your physician. Problem is new. Symptoms have improved. [facility] 05:01 04:50 Ortho shoe ordered. [facility] ao 05:03 04:40 10/13/2017 04:40 Discharged to Home. Impression: Contusion of left foot; Bipolar ao disorder. Condition is Stable. Forms are Medication Reconciliation Form, Thank You Letter, Antibiotic Education, Prescription Opioid Use. Follow up: Private Physician; When: 2 - 3 days; Reason: Recheck today's complaints, Continuance of care, Re-evaluation by your physician. Follow up: Kev Boston; When: 2 - 3 days; Reason: Recheck today's complaints, Re-evaluation by your physician. Problem is new. Symptoms have improved. [facility]
--- NOTE | 2017-10-13 08:47 | RAD REPORT ---
EXAM DESCRIPTION: RAD - Foot Left 2 View - 10/13/2017 4:24 am CLINICAL HISTORY: Left Foot pain status post injury FINDINGS: No fracture or dislocation is seen. A limited two-view series was obtained
== END 2017-10-13 05:03 | disposition home or self-care (01) ==
LOC: ER 03:43
DX: S90.32XA Contusion of left foot, initial encounter (principal); X58.XXXA Exposure to other specified factors, initial encounter; Y93.9 Activity, unspecified; Y92.9 Unspecified place or not applicable; F31.9 Bipolar disorder, unspecified; Z88.1 Allergy status to other antibiotic agents; Z88.8 Allergy status to other drugs, medicaments and biological substances; F17.210 Nicotine dependence, cigarettes, uncomplicated
CPT/HCPCS: 99283

== ENCOUNTER 2017-10-14 02:45 | Emergency (ER) | payer SELFPAY ==
--- OUTSIDE RECORDS SUMMARY | 2017-10-14 02:47 | XMS REPORT | Clinical Summary ---
:1970 Author Organization [facility] [employer] Address [address] [place] [address] Care Team Providers Name Role Phone Asked, [...] right knee MD Luisito (Primary Dx) after 10/13/2016 Social History Tobacco Use Types Packs/Day Years [...] procedure are in the results section. after 10/13/[address] Renal Stone Protocol (07/11/2017 2:53 AM) Narrative Performed At CT RENAL STONE PROTOCOL [facility] CLINICAL INDICATION:llq abd pain TECHNIQUE: [...] is of unclear etiology and clinical significance. [facility]-[id number] Procedure Note Interface, Radiology Results Incoming - [...] is of unclear etiology and clinical significance. [facility]-[id number] Performing Organization Address City/[facility]/Zipcode Phone Number [facility] [address] [place] [address] hCG qualitative, urine screen (07/11/2017 2:29 AM) hCG qualitative, urine NegativeComment: [facility] DEPARTMENT OF Sensitivity of HCG test: 25 PATHOLOGY AND GENOMIC mIU/mL MEDICINE Specimen Urine Performing Organization Address City/[facility] Phone Number [facility] DEPARTMENT OF PATHOLOGY AND [address] [place] [phone] GENOMIC MEDICINE Urinalysis screen and microscopy, with reflex to culture (07/11/2017 1:57 AM) Specimen site Random void [facility] DEPARTMENT OF PATHOLOGY AND GENOMIC MEDICINE Color, UA Red [facility] DEPARTMENT OF PATHOLOGY AND GENOMIC MEDICINE Appearance, UA Cloudy [facility] DEPARTMENT OF PATHOLOGY AND GENOMIC MEDICINE Specific gravity, UA 1.018 1.001 - 1.035 [facility] DEPARTMENT OF PATHOLOGY AND GENOMIC MEDICINE pH, UA 6.0 5.0 - 8.5 [facility] DEPARTMENT OF PATHOLOGY AND GENOMIC MEDICINE Protein, UA 1+ (A) Negative [facility] DEPARTMENT OF PATHOLOGY AND GENOMIC MEDICINE Glucose, UA Negative Negative [facility] DEPARTMENT OF PATHOLOGY AND GENOMIC MEDICINE Ketones, UA Negative Negative [facility] DEPARTMENT OF PATHOLOGY AND GENOMIC MEDICINE Bilirubin, UA Negative Negative [facility] DEPARTMENT OF PATHOLOGY AND GENOMIC MEDICINE Blood, UA Moderate (A) Negative [facility] DEPARTMENT OF PATHOLOGY AND GENOMIC MEDICINE Nitrite, UA Positive (A) Negative [facility] DEPARTMENT OF PATHOLOGY AND GENOMIC MEDICINE Urobilinogen, UA 2.0 (A) <2.0 [facility] DEPARTMENT OF PATHOLOGY AND GENOMIC MEDICINE Leukocyte esterase, UA Large (A) Negative [facility] DEPARTMENT OF PATHOLOGY AND GENOMIC MEDICINE Epithelial cells, UA 3 /HPF [facility] DEPARTMENT OF PATHOLOGY AND GENOMIC MEDICINE WBC, UA >180 (H) 0 - 4 /HPF [facility] DEPARTMENT OF PATHOLOGY AND GENOMIC MEDICINE RBC, UA 7 (H) 0 - 5 /HPF [facility] DEPARTMENT OF PATHOLOGY AND GENOMIC MEDICINE Bacteria, UA Many (A) None seen [facility] DEPARTMENT OF PATHOLOGY AND GENOMIC MEDICINE Yeast, UA None seen [facility] DEPARTMENT OF PATHOLOGY AND GENOMIC MEDICINE Yeast with pseudohyphae, UA None seen [facility] DEPARTMENT OF PATHOLOGY AND GENOMIC MEDICINE Specimen Urine Performing Organization Address City/[facility] Phone Number [facility] DEPARTMENT OF PATHOLOGY AND [address] [place], [place] [phone] [facility] Gram stain (07/11/2017 1:57 AM) Gram stain result Many WBC's [facility] DEPARTMENT OF PATHOLOGY Many Gram positive cocci in clusters AND GENOMIC MEDICINE Comment: Specimen Information Specimen Source: Urine Specimen Site: Random void Specimen Urine - Random void Performing Organization Address City/[facility] Phone Number [facility] DEPARTMENT OF PATHOLOGY AND [address] [place] [id number] [facility] Urine culture (07/11/2017 1:57 AM) Urine culture isolate Staphylococcus aureus [facility] DEPARTMENT OF 10-5 cfu/ml PATHOLOGY AND [...] RAH 1 mcg/mL: Susceptible Performing Organization Address [facility] Phone Number [facility] DEPARTMENT OF PATHOLOGY AND [address] [place], [place] [phone] [facility] MEDICINE XR Knee 1 Or 2 Vw Right (07/06/2017 2:34 AM) Narrative Performed At EXAM:XR KNEE 1 OR 2 VW RIGHT [facility] CLINICAL HISTORY:RECENT TRAUMAKNEE COMPARISON:None. IMPRESSION: 1.No evidence of acute displaced right knee fracture or dislocation. No significant joint effusion. Question of mild medial soft tissue swelling. [facility]-[id number] Procedure Note Interface, Radiology Results Incoming - 07/06/2017 2:38 AM CDT EXAM: XR KNEE 1 OR 2 VW RIGHT CLINICAL HISTORY: RECENT TRAUMA KNEE COMPARISON: None. IMPRESSION: 1. No evidence of acute displaced right knee fracture or dislocation. No significant joint effusion. Question of mild medial soft tissue swelling. [facility]-[id number] Performing Organization Address [facility] Phone Number [facility] [address] [place] [address] after 10/13/2016
--- OUTSIDE RECORDS SUMMARY | 2017-10-14 02:47 | XMS REPORT ---
:1970 [facility] Address [address] [place] [address] Care Team Providers Name Role Phone UNKNOWN, REFFERING Primary Care Provider Unavailable Problems This patient has no known problems. Allergies, Adverse Reactions, Alerts This patient has no known allergies or adverse reactions. Medications This patient has no known medications. Encounters Start End Encounter Admission Attending Care Care Encounter Date/Time Date/Time Type Type Clinicians Facility Department ID 2017-07-02 2017-07-02 Emergency E [facility] MED [id number] 08:16:00 08:16:00
--- OUTSIDE RECORDS SUMMARY | 2017-10-14 02:47 | XMS REPORT | Clinical Summary ---
:1970 Author Organization [facility] Address [address] [place] [address] Phone Care Team Providers Name Role Phone [...] Dx);Nausea;Acute constipation;Acute superficial gastritis without hemorrhage after 10/13/2016 Social History Tobacco Use Types [...] Not on file Results Not on fileafter 10/13/2016
[2017-10-14] MEDS ORDERED: NA CHLORIDE 0.9% 1,000 ML ONE (02:58)
[2017-10-14 03:42] LABS: Absolute Lymphocytes (CBC) 2.1 K/uL (0.7-4.9); Absolute Monocytes 0.6 K/uL (0.1-1.3); Absolute Neutrophil 4.4 K/uL (1.8-8.0); Basophils % 0.4 % (0-1.3); Eosinophils % 2.1 % (0-4.4); Hematocrit 32.1 % (36.0-45.0); MCH 29.6 pg (27.0-35.0); MCV 87.1 fL (80-100); MPV 8.4 fL (7.6-11.3); Monocytes % 7.8 % (3.3-12.3); RBC Red Blood Cell Count 3.69 M/uL (3.86-4.86)
[2017-10-14 03:45] LABS: Protime INR 0.96
[2017-10-14 03:53] LABS: ALT/SGPT 21 U/L (12-78); AST/SGOT 13 U/L (15-37); Albumin 3.4 g/dL (3.4-5.0); Alkaline Phosphatase 40 U/L (45-117); BUN Blood Urea Nitrogen 14 mg/dL (7-18); Bicarbonate 28 mmol/L (21-32); Bilirubin Direct < 0.1 mg/dL (0-0.2); Bilirubin Total 0.2 mg/dL (0.2-1.0); Glucose Level 90 mg/dL (74-106); Potassium 3.4 mmol/L (3.5-5.1); Protein, Total 6.3 g/dL (6.4-8.2); Sodium Level 143 mmol/L (136-145)
[2017-10-14 04:36] LABS: Barbiturates NEGATIVE (NEGATIVE); Benzodiazepines NEGATIVE (NEGATIVE); Cocaine NEGATIVE (NEGATIVE); METHAMPHETAM NEGATIVE (NEGATIVE); Methadone NEGATIVE (NEGATIVE); Opiates NEGATIVE (NEGATIVE); Phencyclidine NEGATIVE (NEGATIVE); THC Cannibis NEGATIVE (NEGATIVE)
[2017-10-14 04:41] LABS: Alcohol Serum/Plasma < 3 mg/dL (0-3)
--- NOTE | 2017-10-14 04:54 | EDPHYS ---
Physician Documentation [facility] Name: Dayami Espinosa Age: 47 yrs Sex: Female : 1970 Arrival Date: 10/14/2017 Time: 02:43 Bed 6 Private MD: ED Physician Darrell Mc HPI: 10/14 02:46 This 47 yrs old Female presents to ER via Unassigned with complaints of sybil dehydration. 02:46 weak, near syncope, in heat all day. Onset: The symptoms/episode began/occurred just sybil prior to arrival. Severity of symptoms: At their worst the symptoms were mild in the emergency department the symptoms have resolved. The patient has not experienced similar symptoms in the past. 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 - Social history:: Smoking status: Patient uses tobacco products, smokes one pack cigarettes per day. Patient uses alcohol, occasionally. Patient/guardian denies using street drugs. - Family history:: not pertinent. - Ebola Screening: : Patient negative for fever greater than or equal to 101.5 degrees Fahrenheit, and additional compatible Ebola Virus Disease symptoms Patient denies exposure to infectious person Patient denies travel to an Ebola-affected area in the 21 days before illness onset. ROS: 02:46 Constitutional: Negative for fever, chills, and weight loss, Eyes: Negative for injury, sybil pain, redness, and discharge, ENT: Negative for injury, pain, and discharge, Neck: Negative for injury, pain, and swelling, Cardiovascular: Negative for chest pain, palpitations, and edema, Respiratory: Negative for shortness of breath, cough, wheezing, and pleuritic chest pain, Abdomen/GI: Negative for abdominal pain, nausea, vomiting, diarrhea, and constipation, Back: Negative for injury and pain, : Negative for injury, bleeding, discharge, and swelling, MS/Extremity: Negative for injury and deformity, Skin: Negative for injury, rash, and discoloration, Psych: Negative for depression, anxiety, suicide ideation, homicidal ideation, and hallucinations, Allergy/Immunology: Negative for hives, rash, and allergies, Endocrine: Negative for neck swelling, polydipsia, polyuria, polyphagia, and marked weight changes. 02:46 Neuro: Positive for altered mental status, weakness. Exam: 02:46 Constitutional: This is a well developed, well nourished patient who is awake, alert, sybil and in no acute distress. Head/Face: Normocephalic, atraumatic. Eyes: Pupils equal round and reactive to light, extra-ocular motions intact. Lids and lashes normal. Conjunctiva and sclera are non-icteric and not injected. Cornea within normal limits. Periorbital areas with no swelling, redness, or edema. ENT: Nares patent. No nasal discharge, no septal abnormalities noted. Tympanic membranes are normal and external auditory canals are clear. Oropharynx with no redness, swelling, or masses, exudates, or evidence of obstruction, uvula midline. Mucous membranes moist. Neck: Trachea midline, no thyromegaly or masses palpated, and no cervical lymphadenopathy. Supple, full range of motion without nuchal rigidity, or vertebral point tenderness. No Meningismus. Chest/axilla: Normal chest wall appearance and motion. Nontender with no deformity. No lesions are appreciated. Cardiovascular: Regular rate and rhythm with a normal S1 and S2. No gallops, murmurs, or rubs. Normal PMI, no JVD. No pulse deficits. Respiratory: Lungs have equal breath sounds bilaterally, clear to auscultation and percussion. No rales, rhonchi or wheezes noted. No increased work of breathing, no retractions or nasal flaring. Abdomen/GI: Soft, non-tender, with normal bowel sounds. No distension or tympany. No guarding or rebound. No evidence of tenderness throughout. Back: No spinal tenderness. No costovertebral tenderness. Full range of motion. Pelvic Exam: Normal external genitalia. Speculum exam with closed cervical os, no discharge or bleeding noted. Bimanual exam with normal adnexa, no adnexal or cervical motion tenderness. Normal uterus. Female : Normal external genitalia. Vital Signs: 02:49 BP 100 / 71; Pulse 85; Resp 16; Temp 98.2; Pulse Ox 99% ; Weight 46.72 kg; Height 5 ft. tl1 3 in. (160.02 cm); Pain 0/10; 04:05 BP 105 / 76; Pulse 71; Resp 18; Pulse Ox 100% on R/A; aj1 05:01 BP 101 / 66; Pulse 65; Resp 18; Pulse Ox 100% on R/A; mg2 02:49 Body Mass Index 18.25 (46.72 kg, 160.02 cm) tl1 MDM: 02:44 Patient medically screened. [facility] 02:46 Data reviewed: vital signs, nurses notes, lab test result(s), EKG. [facility] 10/14 02:45 Order name: Acetaminophen; Complete Time: 04:53 [facility] 10/14 02:45 Order name: Basic Metabolic Panel; Complete Time: 04:53 [facility] 10/14 02:45 Order name: CBC with Diff; Complete Time: 04:09 [facility] 10/14 02:45 Order name: ETOH Level; Complete Time: 04:53 [facility] 10/14 02:45 Order name: Hepatic Function; Complete Time: 04:53 [facility] 10/14 02:45 Order name: PT-INR; Complete Time: 04:09 [facility] 10/14 02:45 Order name: Ptt, Activated; Complete Time: 04:09 [facility] 10/14 02:45 Order name: Salicylate; Complete Time: 04:09 [facility] 10/14 02:45 Order name: Urine Drug Screen; Complete Time: 04:39 [facility] 10/14 02:45 Order name: EKG; Complete Time: 02:47 10/14 03:23 Order name: Urine Dipstick--Ancillary (enter results) [facility] 10/14 03:23 Order name: Urine --Ancillary (enter results) [facility] 10/14 02:45 Order name: EKG - Nurse/Tech; Complete Time: 03:13 [facility] 10/14 02:45 Order name: IV Saline Lock; Complete Time: 03:13 [facility] 10/14 02:45 Order name: Labs collected and sent; Complete Time: 03:13 [facility] 10/14 02:45 Order name: Urine Dipstick-Ancillary (obtain specimen); Complete Time: 03:13 [facility] 10/14 02:45 Order name: Urine Test (obtain specimen); Complete Time: 03:12 [facility] Administered Medications: 03:12 Drug: NS 0.9% 1000 ml Route: IV; Rate: 1 bolus; Site: right antecubital; tl1 04:26 Follow up: IV Status: Completed infusion tl1 05:09 Drug: Potassium Chloride 20 mEq Route: PO; mg2 05:14 Follow up: Response: No adverse reaction tl2 Disposition: 10/14/17 04:54 Discharged to Home. Impression: Weakness, Dehydration, Anemia, unspecified, Hypokalemia. - Condition is Stable. - Discharge Instructions: Anemia, Nonspecific, Dehydration, Adult, Potassium Content of Foods, Near-Syncope, Weakness, Fatigue, Near-Syncope, Azpl-cq-Qxuo, Weakness, Lreo-bi-Wgkv, Dehydration, Adult, Gzcn-uk-Igpo, Hypokalemia. - Medication Reconciliation Form, Thank You Letter, Antibiotic Education, Prescription Opioid Use form. - Follow up: Private Physician; When: 2 - 3 days; Reason: Recheck today's complaints, Continuance of care, Re-evaluation by your physician. - Problem is new. - Symptoms have improved. Signatures: Dispatcher [employer] EDMS Darrell Mc MD MD cha Lasagna, Tonya RN RN tl1 Lexis Hernandez RN RN tl2 Asher Acosta RN RN mg2 Corrections: (The following items were deleted from the chart) 05:14 04:54 10/14/2017 04:54 Discharged to Home. Impression: Weakness; Dehydration; Anemia, tl2 unspecified; Hypokalemia. Condition is Stable. Discharge Instructions: Dehydration, Adult, Near-Syncope, Weakness, Fatigue, Near-Syncope, Ufvd-gu-Wyxl, Weakness, Hotc-zl-Ibxt, Dehydration, Adult, Uotr-bi-Kafp, Anemia, Nonspecific. Forms are Medication Reconciliation Form, Thank You Letter, Antibiotic Education, Prescription Opioid Use. Follow up: Private Physician; When: 2 - 3 days; Reason: Recheck today's complaints, Continuance of care, Re-evaluation by your physician. Problem is new. Symptoms have improved. sybil
--- NOTE | 2017-10-14 04:54 | ER ---
Nurse's Notes [facility] Name: Dayami Espinosa Age: 47 yrs Sex: Female : 1970 Arrival Date: 10/14/2017 Time: 02:43 Bed 6 Private MD: Diagnosis: Weakness;Dehydration;Anemia, unspecified;Hypokalemia Presentation: 10/14 02:45 Presenting complaint: Patient states: pt states she was eating out and felt like she tl1 was dehydrated. Transition of care: patient was not received from another setting of care. Onset of symptoms was October 14, 2017. Risk Assessment: Do you want to hurt yourself or someone else? Patient reports no desire to harm self or others. Initial Sepsis Screen: Does the patient meet any 2 criteria? No. Patient's initial sepsis screen is negative. Does the patient have a suspected source of infection? No. Patient's initial sepsis screen is negative. Care prior to arrival: None. 02:45 Method Of Arrival: EMS: [facility] tl1 02:45 Acuity: JAZMIN 3 tl1 02:48 Presenting complaint: Patient states: I was seen here yesterday and given a tl1 prescription for a UTI but have not picked up the prescription yet. 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 - Social history:: Smoking status: Patient uses tobacco products, smokes one pack cigarettes per day. Patient uses alcohol, occasionally. Patient/guardian denies using street drugs. - Family history:: not pertinent. - Ebola Screening: : Patient negative for fever greater than or equal to 101.5 degrees Fahrenheit, and additional compatible Ebola Virus Disease symptoms Patient denies exposure to infectious person Patient denies travel to an Ebola-affected area in the 21 days before illness onset. Screenin:16 Abuse screen: Denies threats or abuse. Denies injuries from another. Nutritional tl1 screening: No deficits noted. Tuberculosis screening: No symptoms or risk factors identified. Fall Risk IV access (20 points). Assessment: 03:14 General: Appears in no apparent distress. Behavior is cooperative, appropriate for age. tl1 Pain: Denies pain. Neuro: Level of Consciousness is awake, alert, obeys commands, Oriented to person, place, time, situation. Cardiovascular: Reports fatigue, Denies chest pain. Respiratory: Airway is patent Trachea midline Respiratory effort is even, unlabored, Breath sounds are clear bilaterally. GI: Abdomen is non-distended, Bowel sounds present X 4 quads. Abd is soft and non tender X 4 quads. : No signs and/or symptoms were reported regarding the genitourinary system. EENT: No signs and/or symptoms were reported regarding the EENT system. Derm: No signs and/or symptoms reported regarding the dermatologic system. Musculoskeletal: No signs and/or symptoms reported regarding the musculoskeletal system. 04:05 Reassessment: Pt appears to be sleeping, RR even and unlabored. aj1 Vital Signs: 02:49 BP 100 / 71; Pulse 85; Resp 16; Temp 98.2; Pulse Ox 99% ; Weight 46.72 kg; Height 5 ft. tl1 3 in. (160.02 cm); Pain 0/10; 04:05 BP 105 / 76; Pulse 71; Resp 18; Pulse Ox 100% on R/A; aj1 05:01 BP 101 / 66; Pulse 65; Resp 18; Pulse Ox 100% on R/A; mg2 02:49 Body Mass Index 18.25 (46.72 kg, 160.02 cm) tl1 ED Course: 02:43 Patient arrived in ED. tl1 02:44 Darrell Mc MD is Attending Physician. sybil 02:47 Triage completed. tl1 02:50 Arm band placed on right wrist. tl1 02:52 No provider procedures requiring assistance completed. Inserted saline lock: 18 gauge tl1 in right antecubital area, using aseptic technique. Blood collected. 03:13 Rosanna Busch, RN is Primary Nurse. tl1 04:06 Patient has correct armband on for positive identification. Call light in reach. Side aj1 rails up X 1. Administered Medications: 03:12 Drug: NS 0.9% 1000 ml Route: IV; Rate: 1 bolus; Site: right antecubital; tl1 04:26 Follow up: IV Status: Completed infusion tl1 05:09 Drug: Potassium Chloride 20 mEq Route: PO; mg2 05:14 Follow up: Response: No adverse reaction tl2 Outcome: 04:54 Discharge ordered by MD. devine 05:14 Patient left the ED. tl2 Signatures: Nancy Rangel RN RN aj1 Darrell Mc MD MD cha Lasagna, Tonya, RN RN tl1 Lexis Hernandez RN RN tl2 Asher Acosta RN RN mg2 Corrections: (The following items were deleted from the chart) 02:49 02:45 Transition of care: patient was not received from another setting of care. tl1 tl1
[2017-10-14 05:05] LABS: Urine Blood 1+ (NEG); Urine Glucose NEGATIVE (NEG); Urine Protein NEGATIVE (NEG); Urine Specific Gravity >1.030 (1.005-1.030)
[2017-10-14] MEDS ORDERED: POTASSIUM CL SA 10 MEQ TAB PO ONE (05:07)
--- NOTE | 2017-10-15 10:32 | EKG ---
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
== END 2017-10-14 05:14 | disposition home or self-care (01) ==
LOC: ER 02:45
DX: E86.0 Dehydration (principal); D64.9 Anemia, unspecified; E87.6 Hypokalemia; Z88.1 Allergy status to other antibiotic agents; Z88.8 Allergy status to other drugs, medicaments and biological substances; F17.210 Nicotine dependence, cigarettes, uncomplicated
CPT/HCPCS: 36415; 80048; 80076; 80307; 80320; 80329; 81003; 81025; 85025; 85610; 85730; 93005; 96360; 99284; J7030

== ENCOUNTER 2017-10-26 03:08 | Emergency (ER) | payer SELFPAY ==
--- OUTSIDE RECORDS SUMMARY | 2017-10-26 03:10 | XMS REPORT | Clinical Summary ---
:1970 Author Organization [facility] Address [address] [place] [address] Care Team Providers Name Role Phone Asked, [...] right knee MD Luisito (Primary Dx) after 10/25/2016 Social History Tobacco Use Types Packs/Day Years [...] procedure are in the results section. after 10/25/[address] Renal Stone Protocol (07/11/2017 2:53 AM) Narrative Performed At CT RENAL STONE PROTOCOL [facility] CLINICAL INDICATION:llq abd pain TECHNIQUE: Multidetector [...] is of unclear etiology and clinical significance. [facility]-[id number] Procedure Note Interface, Radiology Results Incoming - [...] is of unclear etiology and clinical significance. [facility]-[id number] Performing Organization Address City/[facility]/Zipcode Phone Number [facility] [address] [place] [address] hCG qualitative, urine screen (07/11/2017 2:29 AM) hCG qualitative, urine NegativeComment: [facility] DEPARTMENT OF Sensitivity of HCG test: 25 PATHOLOGY AND GENOMIC mIU/mL MEDICINE Specimen Urine Performing Organization Address City/[facility] Phone Number [facility] DEPARTMENT OF PATHOLOGY AND [address] [place] [phone] GENOMIC MEDICINE Urinalysis screen and microscopy, with reflex to culture (07/11/2017 1:57 AM) Specimen site Random void [facility] DEPARTMENT OF PATHOLOGY AND GENOMIC MEDICINE Color, UA Red [facility] DEPARTMENT OF PATHOLOGY AND GENOMIC MEDICINE Appearance, UA Cloudy [facility] DEPARTMENT OF PATHOLOGY AND GENOMIC MEDICINE Specific gravity, UA 1.018 1.001 - 1.035 [facility] DEPARTMENT OF PATHOLOGY AND GENOMIC MEDICINE pH, UA 6.0 5.0 - 8.5 [facility] DEPARTMENT OF PATHOLOGY AND GENOMIC MEDICINE Protein, UA 1+ (A) Negative [facility] DEPARTMENT OF PATHOLOGY AND GENOMIC MEDICINE Glucose, UA Negative Negative [facility] DEPARTMENT OF PATHOLOGY AND GENOMIC MEDICINE Ketones, UA Negative Negative [facility] DEPARTMENT OF PATHOLOGY AND GENOMIC MEDICINE Bilirubin, UA Negative Negative [facility] DEPARTMENT OF PATHOLOGY AND GENOMIC MEDICINE Blood, UA Moderate (A) Negative [facility] DEPARTMENT OF PATHOLOGY AND GENOMIC MEDICINE Nitrite, UA Positive (A) Negative [facility] DEPARTMENT OF PATHOLOGY AND GENOMIC MEDICINE Urobilinogen, UA 2.0 (A) <2.0 [facility] DEPARTMENT OF PATHOLOGY AND GENOMIC MEDICINE Leukocyte esterase, UA Large (A) Negative [facility] DEPARTMENT OF PATHOLOGY AND GENOMIC MEDICINE Epithelial cells, UA 3 /HPF [facility] DEPARTMENT OF PATHOLOGY AND GENOMIC MEDICINE WBC, UA >180 (H) 0 - 4 /HPF [facility] DEPARTMENT OF PATHOLOGY AND GENOMIC MEDICINE RBC, UA 7 (H) 0 - 5 /HPF [facility] DEPARTMENT OF PATHOLOGY AND GENOMIC MEDICINE Bacteria, UA Many (A) None seen [facility] DEPARTMENT OF PATHOLOGY AND GENOMIC MEDICINE Yeast, UA None seen [facility] DEPARTMENT OF PATHOLOGY AND GENOMIC MEDICINE Yeast with pseudohyphae, UA None seen [facility] DEPARTMENT OF PATHOLOGY AND GENOMIC MEDICINE Specimen Urine Performing Organization Address City/[facility] Centercode Phone Number [facility] DEPARTMENT OF PATHOLOGY AND [address] [place], [place] [phone] [facility] Gram stain (07/11/2017 1:57 AM) Gram stain result Many WBC's [facility] DEPARTMENT OF PATHOLOGY Many Gram positive cocci in clusters AND GENOMIC MEDICINE Comment: Specimen Information Specimen Source: Urine Specimen Site: Random void Specimen Urine - Random void Performing Organization Address City/[facility] Centercooh Phone Number [facility] DEPARTMENT OF PATHOLOGY AND [address] [place] [phone] [facility] Urine culture (07/11/2017 1:57 AM) Urine culture isolate Staphylococcus aureus [facility] DEPARTMENT OF 10-5 cfu/ml PATHOLOGY AND [...] RAH 1 mcg/mL: Susceptible Performing Organization Address [facility] Center[facility] Phone Number [facility] DEPARTMENT OF PATHOLOGY AND [address] [place], [place] [phone] [facility] MEDICINE XR Knee 1 Or 2 Vw Right (07/06/2017 2:34 AM) Narrative Performed At EXAM:XR KNEE 1 OR 2 VW RIGHT [facility] CLINICAL HISTORY:RECENT TRAUMAKNEE COMPARISON:None. IMPRESSION: 1.No evidence of acute displaced right knee fracture or dislocation. No significant joint effusion. Question of mild medial soft tissue swelling. [facility]-[id number] Procedure Note Interface, Radiology Results Incoming - 07/06/2017 2:38 AM CDT EXAM: XR KNEE 1 OR 2 VW RIGHT CLINICAL HISTORY: RECENT TRAUMA KNEE COMPARISON: None. IMPRESSION: 1. No evidence of acute displaced right knee fracture or dislocation. No significant joint effusion. Question of mild medial soft tissue swelling. [facility]-[id number] Performing Organization Address [facility] Phone Number [facility] [address] [place] [address] after 10/25/2016
--- OUTSIDE RECORDS SUMMARY | 2017-10-26 03:10 | XMS REPORT ---
:1970 [facility] Address [address] [place] [address] Care Team Providers Name Role Phone UNKNOWN, REFFERING Primary Care Provider Unavailable Problems This patient has no known problems. Allergies, Adverse Reactions, Alerts This patient has no known allergies or adverse reactions. Medications This patient has no known medications. Encounters Start End Encounter Admission Attending Care Care Encounter Date/Time Date/Time Type Type Clinicians Facility Department ID 2017-07-02 2017-07-02 Emergency E [facility] MED [id number] 08:16:00 08:16:00
--- OUTSIDE RECORDS SUMMARY | 2017-10-26 03:10 | XMS REPORT | Clinical Summary ---
:[address] [facility] Address [address] [place] [address] Phone Care Team Providers Name Role Phone [...] Dx);Nausea;Acute constipation;Acute superficial gastritis without hemorrhage after 10/25/2016 Social History Tobacco Use Types [...] Not on file Results Not on fileafter 10/25/2016
--- NOTE | 2017-10-26 04:50 | ER ---
Nurse's Notes [facility] Name: Dayami Espinosa Age: 47 yrs Sex: Female : 1970 Arrival Date: 10/26/2017 Time: 03:09 Bed 8 Private MD: Diagnosis: Pain base left great toe. Possible gout Presentation: 10/26 03:24 Presenting complaint: Patient states: "Pain in the left foot for the past few weeks." ao Patient wearing tight boots and states that it feels like pressure in her left foot. Transition of care: patient was not received from another setting of care. Onset of symptoms is unknown. Risk Assessment: Do you want to hurt yourself or someone else? Patient reports no desire to harm self or others. Initial Sepsis Screen: Does the patient meet any 2 criteria? No. Patient's initial sepsis screen is negative. Does the patient have a suspected source of infection? No. Patient's initial sepsis screen is negative. Care prior to arrival: None. 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 - Social history:: Smoking status: Patient uses tobacco products, smokes one pack cigarettes per day. Patient uses alcohol, occasionally. Patient/guardian denies using street drugs, IV drugs. - Ebola Screening: : Patient negative for fever greater than or equal to 101.5 degrees Fahrenheit, and additional compatible Ebola Virus Disease symptoms Patient denies exposure to infectious person Patient denies travel to an Ebola-affected area in the 21 days before illness onset. Screenin:30 Abuse screen: Denies threats or abuse. Denies injuries from another. Nutritional ao screening: No deficits noted. Tuberculosis screening: No symptoms or risk factors identified. Fall Risk None identified. Assessment: 03:40 General: Appears in no apparent distress. comfortable, Behavior is calm, cooperative, ao appropriate for age. Pain: Complains of pain in left foot Pain currently is 10 out of 10 on a pain scale. Pain began 2-3 days ago. Neuro: Level of Consciousness is awake, alert, obeys commands, Oriented to person, place, time, Moves all extremities. Weakness in left foot/feet Speech is normal, Facial symmetry appears normal. Cardiovascular: Capillary refill < 3 seconds Patient's skin is warm and dry. Respiratory: Airway is patent Trachea midline Respiratory effort is even, unlabored, Respiratory pattern is regular, symmetrical. GI: Abdomen is non-distended. : No signs and/or symptoms were reported regarding the genitourinary system. EENT: No signs and/or symptoms were reported regarding the EENT system. Derm: Skin is dry, Skin is pink, warm \\T\\ dry. Skin temperature is warm. Musculoskeletal: Range of motion: limited in left ankle. 04:43 Reassessment: Patient appears in no apparent distress at this time. No changes from ao previously documented assessment. Patient and/or family updated on plan of care and expected duration. Pain level reassessed. Patient sleeping with no SS of distress. 05:07 Reassessment: Patient appears in no apparent distress at this time. DR Martines ready to ao discharge patient but stated to keep her and send her home around 0630. Patient resting under no distress. Patient agree with the POC and to follow up with PCP. DC instructions given to patient. Vital Signs: 03:27 BP 113 / 85; Pulse 82; Resp 16; Temp 98.9(O); Pulse Ox 97% on R/A; Weight 54.43 kg (R); ao Height 5 ft. 3 in. (160.02 cm) (R); Pain 10/10; 04:43 BP 106 / 83; Pulse 83; Resp 14; Pulse Ox 98% on R/A; Pain 0/10; ao 05:07 BP 125 / 74; Pulse 76; Resp 18; Pulse Ox 99% on R/A; Pain 0/10; ao 03:27 Body Mass Index 21.26 (54.43 kg, 160.02 cm) ao ED Course: 03:09 Patient arrived in ED. ds1 03:21 Derrek Martines MD is Attending Physician. pkl 03:24 Chago Selby, BENI is Primary Nurse. ao 03:26 Triage completed. ao 03:28 Arm band placed on right wrist. Patient placed in an exam room, on a stretcher, on ao pulse oximetry, Patient notified of wait time. 03:30 Patient has correct armband on for positive identification. Pulse ox on. NIBP on. ao 03:58 X-ray completed. Portable x-ray completed in exam room. Patient tolerated procedure kp1 well. 03:59 Foot Left 3 View XRAY In Process Unspecified. EDMS 04:15 Initial lab(s) drawn, by me, sent to lab. lp1 06:35 No provider procedures requiring assistance completed. Patient did not have IV access ao during this emergency room visit. Administered Medications: 05:10 Drug: Colcrys 1.2 mg Route: PO; ao 06:34 Follow up: Response: No adverse reaction ao Outcome: 04:49 Discharge ordered by . pksu 06:25 Patient left the ED. ao 06:35 Discharged to home ambulatory. ao 06:35 Condition: stable 06:35 Discharge instructions given to patient, Instructed on discharge instructions, follow up and referral plans. Demonstrated understanding of instructions, follow-up care, medications, Prescriptions given X 1. Signatures: Dispatcher [employer] EDMS Derrek Martines MD MD pkl Sanford, Demi ds1 Patrizia Vincent RN RN lp1 Chago Selby, BENI RN Alva Duckworth kp1
--- NOTE | 2017-10-26 04:50 | EDPHYS ---
Physician Documentation [facility] Name: Dayami Espinosa Age: 47 yrs Sex: Female : 1970 Arrival Date: 10/26/2017 Time: 03:09 Bed 8 Private MD: ED Physician Derrek Martines HPI: 10/26 03:49 This 47 yrs old Female presents to ER via Ambulatory with complaints of Foot pkl Pain. 03:49 The patient presents with pain, that is acute. The complaints affect the left foot, pkl base of left great toe. Onset: The symptoms/episode began/occurred 3 week(s) ago. 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 - Social history:: Smoking status: Patient uses tobacco products, smokes one pack cigarettes per day. Patient uses alcohol, occasionally. Patient/guardian denies using street drugs, IV drugs. - Ebola Screening: : Patient negative for fever greater than or equal to 101.5 degrees Fahrenheit, and additional compatible Ebola Virus Disease symptoms Patient denies exposure to infectious person Patient denies travel to an Ebola-affected area in the 21 days before illness onset. ROS: 03:49 MS/extremity: Positive for pain, of the base left great toe. pkl 03:49 Eyes: Negative for injury, pain, redness, and discharge, ENT: Negative for injury, pain, and discharge, Neck: Negative for injury, pain, and swelling, Cardiovascular: Negative for chest pain, palpitations, and edema, Respiratory: Negative for shortness of breath, cough, wheezing, and pleuritic chest pain, Abdomen/GI: Negative for abdominal pain, nausea, vomiting, diarrhea, and constipation, Back: Negative for injury and pain, : Negative for injury, bleeding, discharge, and swelling, Skin: Negative for injury, rash, and discoloration, Neuro: Negative for headache, weakness, numbness, tingling, and seizure. Exam: 03:49 Head/Face: Normocephalic, atraumatic. Eyes: Pupils equal round and reactive to light, pkl extra-ocular motions intact. Lids and lashes normal. Conjunctiva and sclera are non-icteric and not injected. Cornea within normal limits. Periorbital areas with no swelling, redness, or edema. ENT: Nares patent. No nasal discharge, no septal abnormalities noted. Tympanic membranes are normal and external auditory canals are clear. Oropharynx with no redness, swelling, or masses, exudates, or evidence of obstruction, uvula midline. Mucous membranes moist. Neck: Trachea midline, no thyromegaly or masses palpated, and no cervical lymphadenopathy. Supple, full range of motion without nuchal rigidity, or vertebral point tenderness. No Meningismus. Chest/axilla: Normal chest wall appearance and motion. Nontender with no deformity. No lesions are appreciated. Cardiovascular: Regular rate and rhythm with a normal S1 and S2. No gallops, murmurs, or rubs. Normal PMI, no JVD. No pulse deficits. Respiratory: Lungs have equal breath sounds bilaterally, clear to auscultation and percussion. No rales, rhonchi or wheezes noted. No increased work of breathing, no retractions or nasal flaring. Abdomen/GI: Soft, non-tender, with normal bowel sounds. No distension or tympany. No guarding or rebound. No evidence of tenderness throughout. Back: No spinal tenderness. No costovertebral tenderness. Full range of motion. Skin: Warm, dry with normal turgor. Normal color with no rashes, no lesions, and no evidence of cellulitis. Neuro: Awake and alert, GCS 15, oriented to person, place, time, and situation. Cranial nerves II-XII grossly intact. Motor strength 5/5 in all extremities. Sensory grossly intact. Cerebellar exam normal. Normal gait. 03:49 Musculoskeletal/extremity: Extremities: grossly normal except: noted in the base left great toe: Vital Signs: 03:27 BP 113 / 85; Pulse 82; Resp 16; Temp 98.9(O); Pulse Ox 97% on R/A; Weight 54.43 kg (R); ao Height 5 ft. 3 in. (160.02 cm) (R); Pain 10/10; 04:43 BP 106 / 83; Pulse 83; Resp 14; Pulse Ox 98% on R/A; Pain 0/10; ao 05:07 BP 125 / 74; Pulse 76; Resp 18; Pulse Ox 99% on R/A; Pain 0/10; ao 03:27 Body Mass Index 21.26 (54.43 kg, 160.02 cm) ao MDM: 03:22 Patient medically screened. pkl 04:48 Data reviewed: vital signs, nurses notes, lab test result(s), radiologic studies, plain pkl films. 10/26 03:48 Order name: Uric Acid; Complete Time: 04:38 pkl 10/26 03:48 Order name: Foot Left 3 View XRAY pkl Administered Medications: 05:10 Drug: Colcrys 1.2 mg Route: PO; ao 06:34 Follow up: Response: No adverse reaction ao Disposition: 10/26/17 04:49 Discharged to Home. Impression: Pain base left great toe. Possible gout. - Condition is Stable. - Prescriptions for Diclofenac Sodium 75 mg Oral Tablet Sustained Release - take 1 tablet by ORAL route 2 times per day; 30 tablet. - Medication Reconciliation Form, Thank You Letter, Antibiotic Education, Prescription Opioid Use form. - Follow up: Private Physician; When: 2 - 3 days; Reason: Re-evaluation by your physician. - Problem is new. - Symptoms have improved. Signatures: Dispatcher [employer] EDNV Derrek Martines MD MD pkChago Spencer RN RN ao Corrections: (The following items were deleted from the chart) 06: 04:49 10/26/2017 04:49 Discharged to Home. Impression: Pain base left great toe. ao Possible gout. Condition is Stable. Forms are Medication Reconciliation Form, Thank You Letter, Antibiotic Education, Prescription Opioid Use. Follow up: Private Physician; When: 2 - 3 days; Reason: Re-evaluation by your physician. Problem is new. Symptoms have improved. pkl
[2017-10-26] MEDS ORDERED: COLCHICINE 0.6 MG TAB ONE (05:04)
--- NOTE | 2017-10-26 07:27 | RAD REPORT ---
EXAM DESCRIPTION: RAD - Foot Left 3 View - 10/26/2017 4:01 am CLINICAL HISTORY: Persistent left foot pain COMPARISON: October 13, 2017 FINDINGS: No fracture, dislocation or periosteal reaction. Advanced for age degenerative change pres ent at the first MTP joint. Significant joint space narrowing is present. Marginal spurs are seen and there is early flattening of the first metatarsal head. Soft tissue swelling is present near the fir st MTP joint. The second- fifth toes and metatarsals show no acute findings. No plantar spur. No air or foreign body in the soft tissues. IMPRESSION: Advanced for age degenerative change at the first MTP joint. No acute finding and no sig nificant change from October 13.
== END 2017-10-26 06:25 | disposition home or self-care (01) ==
LOC: ER 03:08
DX: M79.675 Pain in left toe(s) (principal); F17.210 Nicotine dependence, cigarettes, uncomplicated; F31.70 Bipolar disorder, currently in remission, most recent episode unspecified; Z88.1 Allergy status to other antibiotic agents; Z88.8 Allergy status to other drugs, medicaments and biological substances
CPT/HCPCS: 36415; 84550; 99284

== ENCOUNTER 2017-10-30 03:49 | Emergency (ER) | payer SELFPAY ==
--- OUTSIDE RECORDS SUMMARY | 2017-10-30 03:51 | XMS REPORT | Clinical Summary ---
:1970 Author Organization [facility] Address [address] [place] [address] Care Team Providers Name Role Phone Asked, [...] right knee MD Luisito (Primary Dx) after 10/29/2016 Social History Tobacco Use Types Packs/Day Years [...] procedure are in the results section. after 10/29/[address] Renal Stone Protocol (07/11/2017 2:53 AM) Narrative Performed At CT RENAL STONE PROTOCOL [facility] CLINICAL INDICATION:llq abd pain TECHNIQUE: Multidetector CT [...] is of unclear etiology and clinical significance. [id number] Procedure Note Interface, Radiology Results Incoming - [...] is of unclear etiology and clinical significance. [facility]-[id number] Performing Organization Address City/[facility]/Zipcode Phone Number [facility] [address] [place] [address] hCG qualitative, urine screen (07/11/2017 2:29 AM) hCG qualitative, urine NegativeComment: [facility] DEPARTMENT OF Sensitivity of HCG test: 25 PATHOLOGY AND GENOMIC mIU/mL MEDICINE Specimen Urine Performing Organization Address City/[facility] Phone Number [facility] DEPARTMENT OF PATHOLOGY AND [address] [place] [phone] GENOMIC MEDICINE Urinalysis screen and microscopy, with reflex to culture (07/11/2017 1:57 AM) Specimen site Random void [facility] DEPARTMENT OF PATHOLOGY AND GENOMIC MEDICINE Color, UA Red [facility] DEPARTMENT OF PATHOLOGY AND GENOMIC MEDICINE Appearance, UA Cloudy [facility] DEPARTMENT OF PATHOLOGY AND GENOMIC MEDICINE Specific gravity, UA 1.018 1.001 - 1.035 [facility] DEPARTMENT OF PATHOLOGY AND GENOMIC MEDICINE pH, UA 6.0 5.0 - 8.5 [facility] DEPARTMENT OF PATHOLOGY AND GENOMIC MEDICINE Protein, UA 1+ (A) Negative [facility] DEPARTMENT OF PATHOLOGY AND GENOMIC MEDICINE Glucose, UA Negative Negative [facility] DEPARTMENT OF PATHOLOGY AND GENOMIC MEDICINE Ketones, UA Negative Negative [facility] DEPARTMENT OF PATHOLOGY AND GENOMIC MEDICINE Bilirubin, UA Negative Negative [facility] DEPARTMENT OF PATHOLOGY AND GENOMIC MEDICINE Blood, UA Moderate (A) Negative [facility] DEPARTMENT OF PATHOLOGY AND GENOMIC MEDICINE Nitrite, UA Positive (A) Negative [facility] DEPARTMENT OF PATHOLOGY AND GENOMIC MEDICINE Urobilinogen, UA 2.0 (A) <2.0 [facility] DEPARTMENT OF PATHOLOGY AND GENOMIC MEDICINE Leukocyte esterase, UA Large (A) Negative [facility] DEPARTMENT OF PATHOLOGY AND GENOMIC MEDICINE Epithelial cells, UA 3 /HPF [facility] DEPARTMENT OF PATHOLOGY AND GENOMIC MEDICINE WBC, UA >180 (H) 0 - 4 /HPF [facility] DEPARTMENT OF PATHOLOGY AND GENOMIC MEDICINE RBC, UA 7 (H) 0 - 5 /HPF [facility] DEPARTMENT OF PATHOLOGY AND GENOMIC MEDICINE Bacteria, UA Many (A) None seen [facility] DEPARTMENT OF PATHOLOGY AND GENOMIC MEDICINE Yeast, UA None seen [facility] DEPARTMENT OF PATHOLOGY AND GENOMIC MEDICINE Yeast with pseudohyphae, UA None seen [facility] DEPARTMENT OF PATHOLOGY AND GENOMIC MEDICINE Specimen Urine Performing Organization Address City/[facility] Phone Number [facility] DEPARTMENT OF PATHOLOGY AND [address] [place], [place] [phone] [facility] Gram stain (07/11/2017 1:57 AM) Gram stain result Many WBC's [facility] DEPARTMENT OF PATHOLOGY Many Gram positive cocci in clusters AND GENOMIC MEDICINE Comment: Specimen Information Specimen Source: Urine Specimen Site: Random void Specimen Urine - Random void Performing Organization Address City/[facility] Phone Number [facility] DEPARTMENT OF PATHOLOGY AND [address] [place] [phone] [facility] Urine culture (07/11/2017 1:57 AM) Urine culture isolate Staphylococcus aureus [facility] DEPARTMENT OF 10-5 cfu/ml PATHOLOGY AND GENOMIC This organism is Methicillin Sensitive. MEDICINE (A) Comment: Specimen Information Specimen Source: Urine Specimen Site: Random void Specimen Urine - Random void Organism Antibiotic Method Susceptibility Staphylococcus aureus Ampicillin RAH mcg/mL: Resistant Staphylococcus aureus Clindamycin RHA <=0.5 mcg/mL: Susceptible Staphylococcus aureus Erythromycin RAH [...] RAH 1 mcg/mL: Susceptible Performing Organization Address [facility] Phone Number [facility] DEPARTMENT OF PATHOLOGY AND [address] [place], [place] [phone] [facility] MEDICINE XR Knee 1 Or 2 Vw Right (07/06/2017 2:34 AM) Narrative Performed At EXAM:XR KNEE 1 OR 2 VW RIGHT [facility] CLINICAL HISTORY:RECENT TRAUMAKNEE COMPARISON:None. IMPRESSION: 1.No evidence of acute displaced right knee fracture or dislocation. No significant joint effusion. Question of mild medial soft tissue swelling. [facility]-[id number] Procedure Note Interface, Radiology Results Incoming - 07/06/2017 2:38 AM CDT EXAM: XR KNEE 1 OR 2 VW RIGHT CLINICAL HISTORY: RECENT TRAUMA KNEE COMPARISON: None. IMPRESSION: 1. No evidence of acute displaced right knee fracture or dislocation. No significant joint effusion. Question of mild medial soft tissue swelling. [facility]-[id number] Performing Organization Address [facility] Number [facility] [address] [place] [address] after 10/29/2016
--- OUTSIDE RECORDS SUMMARY | 2017-10-30 03:52 | XMS REPORT ---
:1970 [facility] Address [address] [place] [address] Care Team Providers Name Role Phone UNKNOWN, REFFERING Primary Care Provider Unavailable Problems This patient has no known problems. Allergies, Adverse Reactions, Alerts This patient has no known allergies or adverse reactions. Medications This patient has no known medications. Encounters Start End Encounter Admission Attending Care Care Encounter Date/Time Date/Time Type Type Clinicians Facility Department ID 2017-07-02 2017-07-02 Emergency E [facility] MED [id number] 08:16:00 08:16:00
--- OUTSIDE RECORDS SUMMARY | 2017-10-30 03:52 | XMS REPORT | Clinical Summary ---
:1970 Author Organization [facility] Address [address] [place] [address] Phone Care Team Providers Name Role Phone [...] Dx);Nausea;Acute constipation;Acute superficial gastritis without hemorrhage after 10/29/2016 Social History Tobacco Use Types [...] Not on file Results Not on fileafter 10/29/2016
[2017-10-30] MEDS ORDERED: NA CHLORIDE 0.9% 1,000 ML ONE (04:52)
[2017-10-30 05:03] LABS: Absolute Monocytes 0.6 K/uL (0.1-1.3); Absolute Neutrophil 4.3 K/uL (1.8-8.0); Basophils % 0.7 % (0-1.3); Eosinophils % 1.7 % (0-4.4); Hematocrit 32.8 % (36.0-45.0); Lymphocytes % 28.1 % (15.3-44.8); MCV 88.3 fL (80-100); MPV 7.8 fL (7.6-11.3); Monocytes % 8.7 % (3.3-12.3); RBC Red Blood Cell Count 3.72 M/uL (3.86-4.86)
[2017-10-30 05:27] LABS: ALT/SGPT 20 U/L (12-78); AST/SGOT 15 U/L (15-37); Albumin 3.3 g/dL (3.4-5.0); Alkaline Phosphatase 44 U/L (45-117); BUN Blood Urea Nitrogen 9 mg/dL (7-18); Bicarbonate 28 mmol/L (21-32); Bilirubin Direct < 0.1 mg/dL (0-0.2); Bilirubin Total 0.3 mg/dL (0.2-1.0); CKMB Creatine Kinase MB 4.8 ng/mL (0.3-3.6); Creatine Phosphokinase 181 U/L (26-192); Glucose Level 112 mg/dL (74-106); Magnesium 2.1 mg/dL (1.8-2.4); Potassium 3.5 mmol/L (3.5-5.1); Protein, Total 6.2 g/dL (6.4-8.2); Sodium Level 143 mmol/L (136-145)
--- NOTE | 2017-10-30 06:25 | EDPHYS ---
Physician Documentation [facility] Name: Dayami Espinosa Age: 47 yrs Sex: Female : 1970 Arrival Date: 10/30/2017 Time: 03:53 Bed 6 Private MD: ED Physician Darrell Mc HPI: 10/30 04:26 This 47 yrs old Female presents to ER via Ambulatory with complaints of sybil Dizziness. 04:26 The patient presents with dizziness, generalized weakness. Onset: The symptoms/episode sybil began/occurred 1 day(s) ago. Context: occurred at home, occurred while the patient was walking. Modifying factors: The symptoms are alleviated by lying down, the symptoms are aggravated by standing up. Associated signs and symptoms: The patient has no apparent associated signs or symptoms. Severity of symptoms: At their worst the symptoms were mild in the emergency department the symptoms are unchanged. Patient's baseline: Neuro: alert and fully oriented, Motor: no deficits, Ambulation: walks without assistance. The patient has experienced similar episodes in the past, a few times. 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 - Social history:: Smoking status: Patient uses tobacco products, smokes one pack cigarettes per day. - Ebola Screening: : No symptoms or risks identified at this time. - Family history:: not pertinent. ROS: 04:26 Constitutional: Negative for fever, chills, and weight loss, Eyes: Negative for injury, sybil pain, redness, and discharge, ENT: Negative for injury, pain, and discharge, Neck: Negative for injury, pain, and swelling, Cardiovascular: Negative for chest pain, palpitations, and edema, Respiratory: Negative for shortness of breath, cough, wheezing, and pleuritic chest pain, Abdomen/GI: Negative for abdominal pain, nausea, vomiting, diarrhea, and constipation, Back: Negative for injury and pain, : Negative for injury, bleeding, discharge, and swelling, MS/Extremity: Negative for injury and deformity, Skin: Negative for injury, rash, and discoloration, Psych: Negative for depression, anxiety, suicide ideation, homicidal ideation, and hallucinations, Allergy/Immunology: Negative for hives, rash, and allergies, Endocrine: Negative for neck swelling, polydipsia, polyuria, polyphagia, and marked weight changes, Hematologic/Lymphatic: Negative for swollen nodes, abnormal bleeding, and unusual bruising. 04:26 Neuro: Positive for weakness. Exam: 04:26 Constitutional: This is a well developed, well nourished patient who is awake, alert, sybil and in no acute distress. Head/Face: Normocephalic, atraumatic. Eyes: Pupils equal round and reactive to light, extra-ocular motions intact. Lids and lashes normal. Conjunctiva and sclera are non-icteric and not injected. Cornea within normal limits. Periorbital areas with no swelling, redness, or edema. ENT: Nares patent. No nasal discharge, no septal abnormalities noted. Tympanic membranes are normal and external auditory canals are clear. Oropharynx with no redness, swelling, or masses, exudates, or evidence of obstruction, uvula midline. Mucous membranes moist. Neck: Trachea midline, no thyromegaly or masses palpated, and no cervical lymphadenopathy. Supple, full range of motion without nuchal rigidity, or vertebral point tenderness. No Meningismus. Chest/axilla: Normal chest wall appearance and motion. Nontender with no deformity. No lesions are appreciated. Cardiovascular: Regular rate and rhythm with a normal S1 and S2. No gallops, murmurs, or rubs. Normal PMI, no JVD. No pulse deficits. Respiratory: Lungs have equal breath sounds bilaterally, clear to auscultation and percussion. No rales, rhonchi or wheezes noted. No increased work of breathing, no retractions or nasal flaring. Abdomen/GI: Soft, non-tender, with normal bowel sounds. No distension or tympany. No guarding or rebound. No evidence of tenderness throughout. Back: No spinal tenderness. No costovertebral tenderness. Full range of motion. Female : Normal external genitalia. Skin: Warm, dry with normal turgor. Normal color with no rashes, no lesions, and no evidence of cellulitis. MS/ Extremity: Pulses equal, no cyanosis. Neurovascular intact. Full, normal range of motion. Neuro: Awake and alert, GCS 15, oriented to person, place, time, and situation. Cranial nerves II-XII grossly intact. Motor strength 5/5 in all extremities. Sensory grossly intact. Cerebellar exam normal. Normal gait. Psych: Awake, alert, with orientation to person, place and time. Behavior, mood, and affect are within normal limits. Vital Signs: 04:10 BP 98 / 65; Pulse 73; Resp 16; Temp 98.1(O); Pulse Ox 98% on R/A; Weight 46.27 kg; lp1 Height 5 ft. 3 in. (160.02 cm); Pain 5/10; 06:22 BP 90 / 68; Pulse 63; Resp 18; Pulse Ox 98% on R/A; tl2 04:10 Body Mass Index 18.07 (46.27 kg, 160.02 cm) lp1 MDM: 04:04 Patient medically screened. [facility] 04:28 Data reviewed: vital signs, nurses notes, lab test result(s), EKG, radiologic studies, sybil plain films. 10/30 04:25 Order name: Basic Metabolic Panel; Complete Time: 06:23 [facility] 10/30 04:25 Order name: CBC with Diff; Complete Time: 06:23 [facility] 10/30 04:25 Order name: Ckmb; Complete Time: 06:23 [facility] 10/30 04:25 Order name: CPK; Complete Time: 06:23 [facility] 10/30 04:25 Order name: LFT's; Complete Time: 06:23 [facility] 10/30 04:25 Order name: Magnesium; Complete Time: 06:23 [facility] 10/30 04:25 Order name: Troponin (emerg Dept Use Only); Complete Time: 06:23 [facility] 10/30 04:25 Order name: XRAY Chest (1 view) [facility] 10/30 04:25 Order name: Urine Culture [facility] 10/30 04:25 Order name: Depakote; Complete Time: 06:23 [facility] 10/30 06:46 Order name: Urine Dipstick--Ancillary (enter results); Complete Time: 07:05 ga 10/30 06:46 Order name: Urine --Ancillary (enter results); Complete Time: 07:05 ga 10/30 04:25 Order name: EKG; Complete Time: 04:26 [facility] 10/30 04:25 Order name: Cardiac monitoring; Complete Time: 04:51 [facility] 10/30 04:25 Order name: EKG - Nurse/Tech; Complete Time: 04:51 10/30 04:25 Order name: IV Saline Lock; Complete Time: 04:51 10/30 04:25 Order name: Labs collected and sent; Complete Time: 04:51 [facility] 10/30 04:25 Order name: O2 Per Protocol; Complete Time: 04:51 [facility] 10/30 04:25 Order name: O2 Sat Monitoring; Complete Time: 04:51 [facility] 10/30 04:25 Order name: Urine Dipstick-Ancillary (obtain specimen); Complete Time: 06:37 [facility] 10/30 04:25 Order name: Urine Test (obtain specimen); Complete Time: 06:36 [facility] 10/30 06:28 Order name: Orthostatics; Complete Time: 06:52 [facility] Administered Medications: 04:51 Drug: NS 0.9% 1000 ml Route: IV; Rate: 1 bolus; Site: right forearm; lp1 06:30 Follow up: IV Status: Completed infusion lp1 07:03 Drug: Rocephin - (cefTRIAXone) 1 grams Route: IVPB; Infused Over: 30 mins; Site: right tl2 forearm; 07:21 Follow up: Response: Medication administered at discharge.; IV Status: Completed lp1 infusion Disposition: 10/30/17 06:24 Discharged to Home. Impression: Weakness, Heat exhaustion, unspecified, Heat fatigue, transient, Tobacco use, Tobacco abuse counseling, Anemia, unspecified, Cystitis. - Condition is Stable. - Discharge Instructions: Dysuria, Near-Syncope, Steps to Quit Smoking, Smoking Hazards, Weakness, Fatigue, Near-Syncope, Nlvf-fh-Jrxm, Health Maintenance, Male, Steps to Quit Smoking, Zmgn-yv-Jboe, Heat Exhaustion Information, Weakness, Rece-cp-Wbmc, Health Maintenance, Female. - Prescriptions for Bactrim DS 800- 160 mg Oral Tablet - take 1 tablet by ORAL route every 12 hours for 7 days; 14 tablet. - Medication Reconciliation Form, Thank You Letter, Antibiotic Education, Prescription Opioid Use form. - Follow up: Private Physician; When: 2 - 3 days; Reason: Recheck today's complaints, Continuance of care, Re-evaluation by your physician. - Problem is new. - Symptoms have improved. Signatures: Dispatcher [employer] EDDarrell Simon MD MD cha Pena, Laura RN RN lp1 Lexis Hernandez RN RN tl2 Janay Valentine RN RN jl7 Corrections: (The following items were deleted from the chart) 06:42 06:24 10/30/2017 06:24 Discharged to Home. Impression: Weakness; Heat exhaustion, sybil unspecified; Heat fatigue, transient; Tobacco use; Tobacco abuse counseling; Anemia, unspecified. Condition is Stable. Discharge Instructions: Near-Syncope, Steps to Quit Smoking, Smoking Hazards, Weakness, Fatigue, Near-Syncope, Bpvv-oa-Ejst, Health Maintenance, Male, Steps to Quit Smoking, Wkvh-ls-Mvee, Heat Exhaustion Information, Weakness, Cfrf-md-Wiyy, Health Maintenance, Female. Forms are Medication Reconciliation Form, Thank You Letter, Antibiotic Education, Prescription Opioid Use. Follow up: Private Physician; When: 2 - 3 days; Reason: Recheck today's complaints, Continuance of care, Re-evaluation by your physician. Problem is new. Symptoms have improved. [facility] 07:19 06:42 10/30/2017 06:24 Discharged to Home. Impression: Weakness; Heat exhaustion, jl7 unspecified; Heat fatigue, transient; Tobacco use; Tobacco abuse counseling; Anemia, unspecified; Cystitis. Condition is Stable. Discharge Instructions: Near-Syncope, Steps to Quit Smoking, Smoking Hazards, Weakness, Fatigue, Near-Syncope, Qbli-iy-Xvkb, Health Maintenance, Male, Steps to Quit Smoking, Tewd-vh-Info, Heat Exhaustion Information, Weakness, Ulta-xg-Trhg, Health Maintenance, Female. Forms are Medication Reconciliation Form, Thank You Letter, Antibiotic Education, Prescription Opioid Use. Follow up: Private Physician; When: 2 - 3 days; Reason: Recheck today's complaints, Continuance of care, Re-evaluation by your physician. Problem is new. Symptoms have improved. sybil
--- NOTE | 2017-10-30 06:25 | ER ---
Nurse's Notes [facility] Name: Dayami Espinosa Age: 47 yrs Sex: Female : 1970 Arrival Date: 10/30/2017 Time: 03:53 Bed 6 Private MD: Diagnosis: Weakness;Heat exhaustion, unspecified;Heat fatigue, transient;Tobacco use;Tobacco abuse counseling;Anemia, unspecified;Cystitis Presentation: 10/30 04:08 Presenting complaint: Patient states: "I worked in the heat yesterday and I haven't lp1 felt good since"; States feeling dizzy since 2300, able to tolerate PO food and fluids; steady gait noted. Transition of care: patient was not received from another setting of care. Onset of symptoms was October 30, 2017. Risk Assessment: Do you want to hurt yourself or someone else? Patient reports no desire to harm self or others. Initial Sepsis Screen: Does the patient meet any 2 criteria? No. Patient's initial sepsis screen is negative. Does the patient have a suspected source of infection? No. Patient's initial sepsis screen is negative. Care prior to arrival: None. 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 - Social history:: Smoking status: Patient uses tobacco products, smokes one pack cigarettes per day. - Ebola Screening: : No symptoms or risks identified at this time. - Family history:: not pertinent. Screenin:12 Abuse screen: Denies threats or abuse. Denies injuries from another. Nutritional lp1 screening: No deficits noted. Tuberculosis screening: No symptoms or risk factors identified. Fall Risk None identified. Assessment: 04:11 General: Appears in no apparent distress. Behavior is calm, cooperative, appropriate lp1 for age. Pain: Complains of pain in states chronic pain Pain currently is 5 out of 10 on a pain scale. Neuro: Level of Consciousness is awake, alert, obeys commands, Oriented to person, place, time, situation, Traffic Observer are equal bilaterally Moves all extremities. Full function Gait is steady, Speech is normal, Pupils are PERRLA. Cardiovascular: Patient's skin is warm and dry. Respiratory: Respiratory effort is even, unlabored. GI: No signs and/or symptoms were reported involving the gastrointestinal system. : No signs and/or symptoms were reported regarding the genitourinary system. EENT: No signs and/or symptoms were reported regarding the EENT system. Derm: Skin is intact, Skin is dry, Skin is normal. Musculoskeletal: Circulation, motion, and sensation intact. 05:30 Reassessment: Patient resting, eyes closed, respirations unlabored. lp1 06:36 Reassessment: Patient appears in no apparent distress at this time. No changes from lp1 previously documented assessment. Patient and/or family updated on plan of care and expected duration. Pain level reassessed. Vital Signs: 04:10 BP 98 / 65; Pulse 73; Resp 16; Temp 98.1(O); Pulse Ox 98% on R/A; Weight 46.27 kg; lp1 Height 5 ft. 3 in. (160.02 cm); Pain 5/10; 06:22 BP 90 / 68; Pulse 63; Resp 18; Pulse Ox 98% on R/A; tl2 04:10 Body Mass Index 18.07 (46.27 kg, 160.02 cm) lp1 ED Course: 03:53 Patient arrived in ED. al2 04:04 Darrell Mc MD is Attending Physician. sybil 04:08 Patrizia Vincent, BENI is Primary Nurse. lp1 04:10 Triage completed. lp1 04:11 Arm band placed on left wrist. lp1 04:12 Patient has correct armband on for positive identification. Pulse ox on. NIBP on. lp1 04:50 Initial lab(s) drawn, by me, sent to lab. Inserted saline lock: 20 gauge in right ks6 forearm, using aseptic technique. Blood collected. 06:12 X-ray completed. Portable x-ray completed in exam room. Patient tolerated procedure mh1 well. 06:13 XRAY Chest (1 view) In Process Unspecified. EDMS 06:36 No provider procedures requiring assistance completed. lp1 07:18 IV discontinued, intact, bleeding controlled, No redness/swelling at site. Pressure jl7 dressing applied. Administered Medications: 04:51 Drug: NS 0.9% 1000 ml Route: IV; Rate: 1 bolus; Site: right forearm; lp1 06:30 Follow up: IV Status: Completed infusion lp1 07:03 Drug: Rocephin - (cefTRIAXone) 1 grams Route: IVPB; Infused Over: 30 mins; Site: right tl2 forearm; 07:21 Follow up: Response: Medication administered at discharge.; IV Status: Completed lp1 infusion Outcome: 06:24 Discharge ordered by . sybil 07:18 Discharged to home ambulatory. jlMeera 07:18 Condition: stable 07:18 Discharge instructions given to patient, Instructed on discharge instructions, follow up and referral plans. medication usage, Demonstrated understanding of instructions, follow-up care, medications, Prescriptions given X 1. 07:19 Patient left the ED. jl7 Signatures: Dispatcher [employer] EDMS Darrell Mc MD MD cha Harvey, Martha 1 Patrizia Vincent, RN RN lp1 Lexis Hernandez RN RN tl2 Janay Valentine RN RN jose luis7 Angeles Wyatt alJuan Pedroza ks6
[2017-10-30 06:48] LABS: Urine Blood 1+ (NEG); Urine Glucose NEGATIVE (NEG); Urine Protein TRACE (NEG); Urine Specific Gravity >1.030 (1.005-1.030)
[2017-10-30] MEDS ORDERED: CEFTRIAXONE/SWI 1gm 1 GM/10 ML SYR ONE (07:00)
--- NOTE | 2017-10-30 09:27 | EKG ---
Test Date: 2017-10-30 Test Time: 04:45:53 Lamp Shade Assembler: GINO MEASUREMENT RESULTS: Intervals: Rate: 68 NM: 156 QRSD: 82 QT: 426 QTc: 452 [place]: P: 72 NM: 156 QRS: 87 T: 77 INTERPRETIVE STATEMENTS: Normal sinus rhythm Normal ECG Compared to ECG 10/14/2017 03:07:49 No significant changes Electronically Signed On 10-30-17 09:27:09 CDT by Mike Brian
--- NOTE | 2017-10-30 11:35 | RAD REPORT ---
EXAM DESCRIPTION: RAD - Chest Single View - 10/30/2017 6:14 am CLINICAL HISTORY: Cough, syncope, dizziness COMPARISON: August 28, 2017 TECHNIQUE: AP portable chest image was obtained 0600 hours . FINDINGS: No mass, consolidation or acute failure. Chronic interstitial lung disease is similar to t he comparison. Heart and vasculature are normal. No measurable pleural effusion and no pneumothorax. No gross bony abnormality seen. No acute aortic findings suspected. IMPRESSION: Chronic interstitial lung disease. No acute finding or significant interval change.
== END 2017-10-30 07:19 | disposition home or self-care (01) ==
LOC: ER 03:49
DX: R53.1 Weakness (principal); T67.5XXA Heat exhaustion, unspecified, initial encounter; D64.9 Anemia, unspecified; N30.90 Cystitis, unspecified without hematuria; F17.210 Nicotine dependence, cigarettes, uncomplicated; Y93.01 Activity, walking, marching and hiking; Y93.89 Activity, other specified; Y92.009 Unspecified place in unspecified non-institutional (private) residence as the place of occurrence of the external cause; Y99.9 Unspecified external cause status; Z88.1 Allergy status to other antibiotic agents; Z88.8 Allergy status to other drugs, medicaments and biological substances
CPT/HCPCS: 36415; 71045; 80048; 80076; 80164; 81003; 81025; 82550; 82553; 83735; 84484; 85025; 87086; 87088; 93005; 96361; 96365; 99284; J0696; J7030

== ENCOUNTER 2017-10-30 17:10 | Emergency (ER) | payer SELFPAY ==
--- OUTSIDE RECORDS SUMMARY | 2017-10-30 17:12 | XMS REPORT | Clinical Summary ---
:1970 Author Organization [facility] Address [address] [place] [address] Phone Care Team Providers Name Role Phone [...]
--- OUTSIDE RECORDS SUMMARY | 2017-10-30 17:12 | XMS REPORT | Clinical Summary ---
:1970 Author Organization [facility] Address [address] [place] [address] Care Team Providers Name Role Phone Asked, [...] Narrative Performed At CT [facility] CLINICAL INDICATION:llq abd pain TECHNIQUE: Multidetector [...] is of unclear etiology and clinical significance. [id number] Procedure Note Interface, Radiology Results Incoming - [...] is of unclear etiology and clinical significance. [id number] Performing Organization Address City/[facility]/Zipcode Phone Number [facility] [address] [place] [address] hCG qualitative, urine screen (07/11/2017 2:29 AM) hCG qualitative, urine NegativeComment: [facility] DEPARTMENT OF Sensitivity of HCG test: 25 PATHOLOGY AND GENOMIC mIU/mL MEDICINE Specimen Urine Performing Organization Address City/[facility] Phone Number [facility] DEPARTMENT OF PATHOLOGY AND [address] [place] [phone] GENOMIC MEDICINE Urinalysis screen and microscopy, with reflex to culture (07/11/2017 1:57 AM) Specimen site Random void [facility] DEPARTMENT OF PATHOLOGY AND GENOMIC MEDICINE Color, UA Red [facility] DEPARTMENT OF PATHOLOGY AND GENOMIC MEDICINE Appearance, UA Cloudy [facility] DEPARTMENT OF PATHOLOGY AND GENOMIC MEDICINE Specific gravity, UA 1.018 1.001 - 1.035 [facility] DEPARTMENT OF PATHOLOGY AND GENOMIC MEDICINE pH, UA 6.0 5.0 - 8.5 [facility] DEPARTMENT OF PATHOLOGY AND GENOMIC MEDICINE Protein, UA 1+ (A) Negative [facility] DEPARTMENT OF PATHOLOGY AND GENOMIC MEDICINE Glucose, UA Negative Negative [facility] DEPARTMENT OF PATHOLOGY AND GENOMIC MEDICINE Ketones, UA Negative Negative [facility] DEPARTMENT OF PATHOLOGY AND GENOMIC MEDICINE Bilirubin, UA Negative Negative [facility] DEPARTMENT OF PATHOLOGY AND GENOMIC MEDICINE Blood, UA Moderate (A) Negative [facility] DEPARTMENT OF PATHOLOGY AND GENOMIC MEDICINE Nitrite, UA Positive (A) Negative [facility] DEPARTMENT OF PATHOLOGY AND GENOMIC MEDICINE Urobilinogen, UA 2.0 (A) <2.0 [facility] DEPARTMENT OF PATHOLOGY AND GENOMIC MEDICINE Leukocyte esterase, UA Large (A) Negative [facility] DEPARTMENT OF PATHOLOGY AND GENOMIC MEDICINE Epithelial cells, UA 3 /HPF [facility] DEPARTMENT OF PATHOLOGY AND GENOMIC MEDICINE WBC, UA >180 (H) 0 - 4 /HPF [facility] DEPARTMENT OF PATHOLOGY AND GENOMIC MEDICINE RBC, UA 7 (H) 0 - 5 /HPF [facility] DEPARTMENT OF PATHOLOGY AND GENOMIC MEDICINE Bacteria, UA Many (A) None seen [facility] DEPARTMENT OF PATHOLOGY AND GENOMIC MEDICINE Yeast, UA None seen [facility] DEPARTMENT OF PATHOLOGY AND GENOMIC MEDICINE Yeast with pseudohyphae, UA None seen [facility] DEPARTMENT OF PATHOLOGY AND GENOMIC MEDICINE Specimen Urine Performing Organization Address City/[facility] Phone Number [facility] DEPARTMENT OF PATHOLOGY AND [address] [place], [place] [phone] [facility] Gram stain (07/11/2017 1:57 AM) Gram stain result Many WBC's [facility] DEPARTMENT OF PATHOLOGY Many Gram positive cocci in clusters AND GENOMIC MEDICINE Comment: Specimen Information Specimen Source: Urine Specimen Site: Random void Specimen Urine - Random void Performing Organization Address City/[facility] Phone Number [facility] DEPARTMENT OF PATHOLOGY AND [address] [place] [phone] [facility] Urine culture (07/11/2017 1:57 AM) Urine culture isolate Staphylococcus aureus [facility] DEPARTMENT OF 10-5 cfu/ml PATHOLOGY AND GENOMIC [...] RAH 1 mcg/mL: Susceptible Performing Organization Address [facility] Phone Number [facility] DEPARTMENT OF PATHOLOGY AND [address] [place], [place] [phone] [facility] MEDICINE XR Knee 1 Or 2 Vw Right (07/06/2017 2:34 AM) Narrative Performed At EXAM:XR KNEE 1 OR 2 VW RIGHT [facility] CLINICAL HISTORY:RECENT TRAUMAKNEE COMPARISON:None. IMPRESSION: 1.No evidence of acute displaced right knee fracture or dislocation. No significant joint effusion. Question of mild medial soft tissue swelling. [facility]-[id number] Procedure Note Interface, Radiology Results Incoming - 07/06/2017 2:38 AM CDT EXAM: XR KNEE 1 OR 2 VW RIGHT CLINICAL HISTORY: RECENT TRAUMA KNEE COMPARISON: None. IMPRESSION: 1. No evidence of acute displaced right knee fracture or dislocation. No significant joint effusion. Question of mild medial soft tissue swelling. [facility]-[id number] Performing Organization Address [facility] Phone Number [facility] [address] [place] [address] after 10/29/2016
--- OUTSIDE RECORDS SUMMARY | 2017-10-30 17:12 | XMS REPORT ---
:1970 Author Organization [facility] Address [address] [place] [address] Care Team Providers Name Role Phone UNKNOWN, REFFERING Primary Care Provider Unavailable Problems This patient has no known problems. Allergies, Adverse Reactions, Alerts This patient has no known allergies or adverse reactions. Medications This patient has no known medications. Encounters Start End Encounter Admission Attending Care Care Encounter Date/Time Date/Time Type Type Clinicians Facility Department ID 2017-07-02 2017-07-02 Emergency E [facility] MED [id number] 08:16:00 08:16:00
[2017-10-30] MEDS ORDERED: SMZ./TMP. 800/160 MG TABLET ONE (17:57)
--- NOTE | 2017-10-30 18:21 | EDPHYS ---
Physician Documentation [facility] Name: Dayami Espinosa Age: 47 yrs Sex: Female : 1970 Arrival Date: 10/30/2017 Time: 17:11 Bed 24 Private MD: ED Physician Jaylen Otto HPI: 10/30 18:22 This 47 yrs old Female presents to ER via Ambulatory with complaints of Heat snw Exposure. 18:22 Onset: The symptoms/episode began/occurred gradually, and became persistent. Associated snw signs and symptoms: The patient has no apparent associated signs or symptoms, Pertinent negatives: fever, headache, seizure, vomiting. The patient has experienced similar episodes in the past. The patient has been recently seen at the [facility] Emergency Department, today, for similar complaints labs were performed, X-rays were performed, was given IV fluids, given IM/IV antibiotics, was given a prescription for antibiotics. 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 - Social history:: Smoking status: Patient uses tobacco products, smokes one-half pack cigarettes per day. - Ebola Screening: : Patient negative for fever greater than or equal to 101.5 degrees Fahrenheit, and additional compatible Ebola Virus Disease symptoms Patient denies exposure to infectious person Patient denies travel to an Ebola-affected area in the 21 days before illness onset No symptoms or risks identified at this time. ROS: 18:21 Constitutional: Negative for fever, chills, and weight loss, + fatigue, weakness Eyes: snw Negative for injury, pain, redness, and discharge, ENT: Negative for injury, pain, and discharge, Neck: Negative for injury, pain, and swelling, Cardiovascular: Negative for chest pain, palpitations, and edema, Respiratory: Negative for shortness of breath, cough, wheezing, and pleuritic chest pain, Abdomen/GI: Negative for abdominal pain, nausea, vomiting, diarrhea, and constipation, Back: Negative for injury and pain, : Negative for injury, bleeding, discharge, and swelling, MS/Extremity: Negative for injury and deformity, Skin: Negative for injury, rash, and discoloration, Neuro: Negative for headache, weakness, numbness, tingling, and seizure. Exam: 18:21 Constitutional: This is a well developed, cachectic pt who is awake, alert, and in no snw acute distress. Just dc'd from ED this am. Returns for same s/s. Head/Face: Normocephalic, atraumatic. Eyes: Pupils equal round and reactive to light, extra-ocular motions intact. Lids and lashes normal. Conjunctiva and sclera are non-icteric and not injected. Cornea within normal limits. Periorbital areas with no swelling, redness, or edema. ENT: Nares patent. No nasal discharge, no septal abnormalities noted. Tympanic membranes are normal and external auditory canals are clear. Oropharynx with no redness, swelling, or masses, exudates, or evidence of obstruction, uvula midline. Mucous membranes moist. Neck: Trachea midline, no thyromegaly or masses palpated, and no cervical lymphadenopathy. Supple, full range of motion without nuchal rigidity, or vertebral point tenderness. No Meningismus. Chest/axilla: Normal chest wall appearance and motion. Nontender with no deformity. No lesions are appreciated. Cardiovascular: Regular rate and rhythm with a normal S1 and S2. No gallops, murmurs, or rubs. Normal PMI, no JVD. No pulse deficits. Respiratory: Lungs have equal breath sounds bilaterally, clear to auscultation and percussion. No rales, rhonchi or wheezes noted. No increased work of breathing, no retractions or nasal flaring. Abdomen/GI: Soft, non-tender, with normal bowel sounds. No distension or tympany. No guarding or rebound. No evidence of tenderness throughout. Back: No spinal tenderness. No costovertebral tenderness. Full range of motion. Skin: Warm, dry with normal turgor. Normal color with no rashes, no lesions, and no evidence of cellulitis. MS/ Extremity: Pulses equal, no cyanosis. Neurovascular intact. Full, normal range of motion. Neuro: Awake and alert, GCS 15, oriented to person, place, time, and situation. Cranial nerves II-XII grossly intact. Motor strength 5/5 in all extremities. Sensory grossly intact. Cerebellar exam normal. Normal gait. Psych: Awake, alert, with orientation to person, place and time. Behavior, mood, and affect are within normal limits. Vital Signs: 17:21 Pulse 81; Resp 20; Temp 99.2; Pulse Ox 98% on R/A; Weight 46.72 kg; Height 5 ft. 3 in. aj (160.02 cm); 17:50 BP 92 / 63 LA Supine (man/reg); Pulse 66; ed1 17:51 BP 99 / 66 LA Sitting (auto/reg); Pulse 70; ed1 17:51 BP 96 / 70 LA Standing (auto/reg); Pulse 76; ed1 17:21 Body Mass Index 18.25 (46.72 kg, 160.02 cm) MDM: 17:44 Patient medically screened. snw 18:23 Data reviewed: vital signs, nurses notes. Counseling: I had a detailed discussion with snw the patient and/or guardian regarding: the historical points, exam findings, and any diagnostic results supporting the discharge/admit diagnosis, the need for outpatient follow up, for definitive care, to return to the emergency department if symptoms worsen or persist or if there are any questions or concerns that arise at home. 10/30 17:42 Order name: Orthostatics; Complete Time: 17:51 snw Administered Medications: 17:54 Drug: Bactrim (160 mg-800 mg (DS) 1 tablet Route: PO; ed1 18:43 Follow up: Response: No adverse reaction ed1 Disposition: 18:56 Co-signature as Attending Physician, Jaylen Otto MD I agree with the assessment and kdr plan of care. Disposition: 10/30/17 18:20 Discharged to Home. Impression: Weakness. - Condition is Stable. - Discharge Instructions: Urinary Tract Infection, Adult, Weakness, Fatigue, Heat Exhaustion Information. - Medication Reconciliation Form, Thank You Letter, Antibiotic Education, Prescription Opioid Use form. - Follow up: Private Physician; When: 2 - 3 days; Reason: Recheck today's complaints, Continuance of care, Re-evaluation by your physician. Follow up: Emergency Department; When: As needed; Reason: Worsening of condition. Signatures: Walls, Em, RN RN Jaylen Winter MD MD kdr Therrien, Shelly, BOWLING TEACHER-C BOWLING TEACHER-Csnw Salud Rivera, PRINT PRODUCER PRINT PRODUCER ed1 Corrections: (The following items were deleted from the chart) 18:42 18:20 10/30/2017 18:20 Discharged to Home. Impression: Weakness. Condition is Stable. ed1 Forms are Medication Reconciliation Form, Thank You Letter, Antibiotic Education, Prescription Opioid Use. Follow up: Private Physician; When: 2 - 3 days; Reason: Recheck today's complaints, Continuance of care, Re-evaluation by your physician. Follow up: Emergency Department; When: As needed; Reason: Worsening of condition. snw
--- NOTE | 2017-10-30 18:21 | ER ---
Nurse's Notes [facility] Name: Dayami Espinosa Age: 47 yrs Sex: Female : 1970 Arrival Date: 10/30/2017 Time: 17:11 Bed 24 Private MD: Diagnosis: Weakness Presentation: 10/30 17:19 Presenting complaint: Patient states: Reports generalized weakness since being aj discharged from this ER last night for same complaint. Patient reports she is able to eat and drink. Ambulated to triage with steady gait. Transition of care: patient was not received from another setting of care. Onset of symptoms was October 30, 2017. Risk Assessment: Do you want to hurt yourself or someone else? Patient reports no desire to harm self or others. Initial Sepsis Screen: Does the patient meet any 2 criteria? No. Patient's initial sepsis screen is negative. Does the patient have a suspected source of infection? No. Patient's initial sepsis screen is negative. Care prior to arrival: None. 17:19 Method Of Arrival: Ambulatory 17:19 Acuity: JAZMIN 4 aj Triage Assessment: 17:21 General: Appears in no apparent distress. comfortable, Behavior is calm, cooperative, aj appropriate for age. Pain: Denies pain. Neuro: Level of Consciousness is awake, alert, obeys commands, Oriented to person, place, time, situation, Appropriate for age. Respiratory: Airway is patent Respiratory effort is even, unlabored, Respiratory pattern is regular, symmetrical. Derm: Skin is intact, is healthy with good turgor, Skin is pink, warm \T\ dry. normal. 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 - Social history:: Smoking status: Patient uses tobacco products, smokes one-half pack cigarettes per day. - Ebola Screening: : Patient negative for fever greater than or equal to 101.5 degrees Fahrenheit, and additional compatible Ebola Virus Disease symptoms Patient denies exposure to infectious person Patient denies travel to an Ebola-affected area in the 21 days before illness onset No symptoms or risks identified at this time. Screenin:27 Abuse screen: Denies threats or abuse. Denies injuries from another. Nutritional ed1 screening: No deficits noted. Tuberculosis screening: No symptoms or risk factors identified. Fall Risk None identified. Assessment: 17:27 General: Appears in no apparent distress. Behavior is calm, cooperative. Pain: Denies ed1 pain. Neuro: Level of Consciousness is awake, alert, obeys commands, Oriented to person, place, time, situation, Platform Builder are equal bilaterally Moves all extremities. Full function Gait is steady, Speech is normal, Facial symmetry appears normal, Pupils are PERRLA, Intact Reports weakness in generalized. Cardiovascular: Denies chest pain, Heart tones S1 S2 present. Respiratory: Airway is patent Respiratory effort is even, unlabored, Respiratory pattern is regular, symmetrical, Breath sounds are clear bilaterally. GI: Patient currently denies diarrhea, nausea, vomiting. : No signs and/or symptoms were reported regarding the genitourinary system. EENT: No signs and/or symptoms were reported regarding the EENT system. Derm: Skin is pink, warm \T\ dry. Musculoskeletal: Circulation, motion, and sensation intact. 17:30 General: The previous assessment is accurate, call light remains within reach.. ss 18:42 Reassessment: Patient appears in no apparent distress at this time. No changes from ed1 previously documented assessment. Patient and/or family updated on plan of care and expected duration. Pain level reassessed. Patient is alert, oriented x 3, equal unlabored respirations, skin warm/dry/pink. Patient denies pain at this time. Vital Signs: 17:21 Pulse 81; Resp 20; Temp 99.2; Pulse Ox 98% on R/A; Weight 46.72 kg; Height 5 ft. 3 in. aj (160.02 cm); 17:50 BP 92 / 63 LA Supine (man/reg); Pulse 66; ed1 17:51 BP 99 / 66 LA Sitting (auto/reg); Pulse 70; ed1 17:51 BP 96 / 70 LA Standing (auto/reg); Pulse 76; ed1 17:21 Body Mass Index 18.25 (46.72 kg, 160.02 cm) ED Course: 17:11 Patient arrived in ED. as 17:20 Triage completed. aj 17:21 Arm band placed on right wrist. Patient placed in an exam room. aj 17:23 Salud Rivera LVN is Primary Nurse. ed1 17:25 Zarina Nava FNP-C is PHCP. snw 17:25 Jaylen Otto MD is Attending Physician. snw 17:27 Awaiting ED provider evaluation. ed1 17:27 Patient has correct armband on for positive identification. Bed in low position. Call ed1 light in reach. 18:42 No provider procedures requiring assistance completed. Patient did not have IV access ed1 during this emergency room visit. Administered Medications: 17:54 Drug: Bactrim (160 mg-800 mg (DS) 1 tablet Route: PO; ed1 18:43 Follow up: Response: No adverse reaction ed1 Outcome: 18:20 Discharge ordered by MD. snw 18:42 Discharged to home ambulatory. ed1 18:42 Condition: good 18:42 Discharge instructions given to patient, Instructed on discharge instructions, follow up and referral plans. Demonstrated understanding of instructions, follow-up care. 18:42 Patient left the ED. ed1 Signatures: Em Walls, RN RN Zarina Mart FNP-C DORMITORY MAID-Liana Cleveland Shelby, BENI BAZAN Salud Rivera LVN LVN ed1
== END 2017-10-30 18:42 | disposition home or self-care (01) ==
LOC: ER 17:10
DX: R53.1 Weakness (principal); X30.XXXA Exposure to excessive natural heat, initial encounter; F31.70 Bipolar disorder, currently in remission, most recent episode unspecified; F17.210 Nicotine dependence, cigarettes, uncomplicated; Z88.1 Allergy status to other antibiotic agents; Z88.8 Allergy status to other drugs, medicaments and biological substances
CPT/HCPCS: 99283

== ENCOUNTER 2017-11-05 02:31 | Emergency (ER) | payer SELFPAY ==
--- OUTSIDE RECORDS SUMMARY | 2017-11-05 02:33 | XMS REPORT ---
:1970 [facility] Address [address] [place] [address] Care Team Providers Name Role Phone UNKNOWN, REFFERING Primary Care Provider Unavailable Problems This patient has no known problems. Allergies, Adverse Reactions, Alerts This patient has no known allergies or adverse reactions. Medications This patient has no known medications. Encounters Start End Encounter Admission Attending Care Care Encounter Date/Time Date/Time Type Type Clinicians Facility Department ID 2017-07-02 2017-07-02 Emergency E [facility] MED [id number] 08:16:00 08:16:00
--- OUTSIDE RECORDS SUMMARY | 2017-11-05 02:33 | XMS REPORT | Clinical Summary ---
:1970 Author Organization [facility] Address [address] [place] [address] Care Team Providers Name Role Phone Asked, [...] right knee MD Luisito (Primary Dx) after 11/04/2016 Social History Tobacco Use Types Packs/Day Years [...] procedure are in the results section. after 11/04/[address] Renal Stone Protocol (07/11/2017 2:53 AM) Narrative Performed At CT RENAL STONE PROTOCOL [facility] CLINICAL INDICATION:llq abd pain TECHNIQUE: Multidetector CT [...] is of unclear etiology and clinical significance. [facility]-[id number] Procedure Note Interface, Radiology Results Incoming - [...] is of unclear etiology and clinical significance. [facility]-[id number] Performing Organization Address City/[facility]/Zipcode Phone Number [facility] [address] [place] [address] hCG qualitative, urine screen (07/11/2017 2:29 AM) hCG qualitative, urine NegativeComment: [facility] DEPARTMENT OF Sensitivity of HCG test: 25 PATHOLOGY AND GENOMIC mIU/mL MEDICINE Specimen Urine Performing Organization Address City/[facility] Phone Number [facility] DEPARTMENT OF PATHOLOGY AND [address] [place] [phone] GENOMIC MEDICINE Urinalysis screen and microscopy, with reflex to culture (07/11/2017 1:57 AM) Specimen site Random void [facility] DEPARTMENT OF PATHOLOGY AND GENOMIC MEDICINE Color, UA Red [facility] DEPARTMENT OF PATHOLOGY AND GENOMIC MEDICINE Appearance, UA Cloudy [facility] DEPARTMENT OF PATHOLOGY AND GENOMIC MEDICINE Specific gravity, UA 1.018 1.001 - 1.035 [facility] DEPARTMENT OF PATHOLOGY AND GENOMIC MEDICINE pH, UA 6.0 5.0 - 8.5 [facility] DEPARTMENT OF PATHOLOGY AND GENOMIC MEDICINE Protein, UA 1+ (A) Negative [facility] DEPARTMENT OF PATHOLOGY AND GENOMIC MEDICINE Glucose, UA Negative Negative [facility] DEPARTMENT OF PATHOLOGY AND GENOMIC MEDICINE Ketones, UA Negative Negative [facility] DEPARTMENT OF PATHOLOGY AND GENOMIC MEDICINE Bilirubin, UA Negative Negative [facility] DEPARTMENT OF PATHOLOGY AND GENOMIC MEDICINE Blood, UA Moderate (A) Negative [facility] DEPARTMENT OF PATHOLOGY AND GENOMIC MEDICINE Nitrite, UA Positive (A) Negative [facility] DEPARTMENT OF PATHOLOGY AND GENOMIC MEDICINE Urobilinogen, UA 2.0 (A) <2.0 [facility] DEPARTMENT OF PATHOLOGY AND GENOMIC MEDICINE Leukocyte esterase, UA Large (A) Negative [facility] DEPARTMENT OF PATHOLOGY AND GENOMIC MEDICINE Epithelial cells, UA 3 /HPF [facility] DEPARTMENT OF PATHOLOGY AND GENOMIC MEDICINE WBC, UA >180 (H) 0 - 4 /HPF [facility] DEPARTMENT OF PATHOLOGY AND GENOMIC MEDICINE RBC, UA 7 (H) 0 - 5 /HPF [facility] DEPARTMENT OF PATHOLOGY AND GENOMIC MEDICINE Bacteria, UA Many (A) None seen [facility] DEPARTMENT OF PATHOLOGY AND GENOMIC MEDICINE Yeast, UA None seen [facility] DEPARTMENT OF PATHOLOGY AND GENOMIC MEDICINE Yeast with pseudohyphae, UA None seen [facility] DEPARTMENT OF PATHOLOGY AND GENOMIC MEDICINE Specimen Urine Performing Organization Address City/[facility]ode Phone Number [facility] DEPARTMENT OF PATHOLOGY AND [address] [place], [place] [phone] [facility] Gram stain (07/11/2017 1:57 AM) Gram stain result Many WBC's [facility] DEPARTMENT OF PATHOLOGY Many Gram positive cocci in clusters AND GENOMIC MEDICINE Comment: Specimen Information Specimen Source: Urine Specimen Site: Random void Specimen Urine - Random void Performing Organization Address City/[facility] Center[facility]az Phone Number [facility] DEPARTMENT OF PATHOLOGY AND [address] [place] [phone] [facility] Urine culture (07/11/2017 1:57 AM) Urine culture isolate Staphylococcus aureus [facility] DEPARTMENT OF 10-5 cfu/ml PATHOLOGY [...] RAH 1 mcg/mL: Susceptible Performing Organization Address [facility] Phone Number [facility] DEPARTMENT OF PATHOLOGY AND [address] [place], [place] [phone] [facility] XR Knee 1 Or 2 Vw Right (07/06/2017 2:34 AM) Narrative Performed At EXAM:XR KNEE 1 OR 2 VW RIGHT [facility] CLINICAL HISTORY:RECENT TRAUMAKNEE COMPARISON:None. IMPRESSION: 1.No evidence of acute displaced right knee fracture or dislocation. No significant joint effusion. Question of mild medial soft tissue swelling. [facility]-[id number] Procedure Note Interface, Radiology Results Incoming - 07/06/2017 2:38 AM CDT EXAM: XR KNEE 1 OR 2 VW RIGHT CLINICAL HISTORY: RECENT TRAUMA KNEE COMPARISON: None. IMPRESSION: 1. No evidence of acute displaced right knee fracture or dislocation. No significant joint effusion. Question of mild medial soft tissue swelling. [facility]-[id number] Performing Organization Address [facility] Phone Number [facility] [address] [place] [address] after 11/04/2016
--- OUTSIDE RECORDS SUMMARY | 2017-11-05 02:33 | XMS REPORT | Clinical Summary ---
:1970 Author Organization [facility] Address [address] [place] [address] Phone Care Team Providers Name Role Phone [...] Dx);Nausea;Acute constipation;Acute superficial gastritis without hemorrhage after 11/04/2016 Social History Tobacco Use Types [...] Not on file Results Not on fileafter 11/04/2016
[2017-11-05 03:10] LABS: Barbiturates NEGATIVE (NEGATIVE); Benzodiazepines NEGATIVE (NEGATIVE); Cocaine NEGATIVE (NEGATIVE); METHAMPHETAM NEGATIVE (NEGATIVE); Methadone NEGATIVE (NEGATIVE); Opiates NEGATIVE (NEGATIVE); Phencyclidine NEGATIVE (NEGATIVE); THC Cannibis NEGATIVE (NEGATIVE)
[2017-11-05] MEDS ORDERED: NA CHLORIDE 0.9% 1,000 ML ONE (03:15)
[2017-11-05 03:23] LABS: Urine Amorphous Sediment TRACE /HPF (NONE SEEN); Urine Bacteria <20 /HPF (<20); Urine Culture Reflex Order NOT NEEDED; Urine RBC <5 /HPF (NONE SEEN)
[2017-11-05 03:26] LABS: Urine Blood 2+ (NEG); Urine Glucose NEGATIVE (NEG); Urine Protein NEGATIVE (NEG); Urine Specific Gravity 1.015 (1.005-1.030)
[2017-11-05 03:29] LABS: Absolute Lymphocytes (CBC) 3.1 K/uL (0.7-4.9); Absolute Monocytes 0.5 K/uL (0.1-1.3); Absolute Neutrophil 3.8 K/uL (1.8-8.0); Basophils % 0.7 % (0-1.3); Eosinophils % 2.1 % (0-4.4); Lymphocytes % 40.2 % (15.3-44.8); MCH 29.4 pg (27.0-35.0); MCV 87.2 fL (80-100); RBC Red Blood Cell Count 4.12 M/uL (3.86-4.86)
[2017-11-05 03:34] LABS: Potassium 3.4 mmol/L (3.5-5.1)
[2017-11-05] MEDS ORDERED: ACETAMINOPHEN 325 MG TABLET ONE (05:00)
--- NOTE | 2017-11-05 05:07 | ER ---
Nurse's Notes [facility] Name: Dayami Espinosa Age: 47 yrs Sex: Female : 1970 Arrival Date: 11/05/2017 Time: 02:38 Bed 18 Private MD: Diagnosis: Dizziness and giddiness;Weakness Presentation: 11/05 02:38 Presenting complaint: EMS states: EMS reports pt was dizziness, light headed and was ea complaining of nausea. Initial blood pressure was 89/57. Transition of care: patient was not received from another setting of care. Onset of symptoms was November 05, 2017. Risk Assessment: Do you want to hurt yourself or someone else? Patient reports no desire to harm self or others. Initial Sepsis Screen: Does the patient meet any 2 criteria? No. Patient's initial sepsis screen is negative. Does the patient have a suspected source of infection? No. Patient's initial sepsis screen is negative. Care prior to arrival: 20 G to right forearm. 02:38 Method Of Arrival: EMS: [facility] ea 02:38 Acuity: JAZMIN 3 ea Triage Assessment: 02:44 General: Appears in no apparent distress. Behavior is calm, cooperative, appropriate ea for age. Pain: Complains of pain in toothache and knee pain Pain currently is 8 out of 10 on a pain scale. Quality of pain is described as aching. Neuro: Level of Consciousness is awake, alert, obeys commands, Oriented to person, place, time, situation. Cardiovascular: Patient's skin is warm and dry. Respiratory: Airway is patent Respiratory effort is even, unlabored, Respiratory pattern is regular, symmetrical. GI: Reports nausea. Derm: Skin is pink, warm \T\ dry. Musculoskeletal: Circulation, motion, and sensation intact. Historical: - Allergies: 02:43 Amoxicillin; ea 02:43 Pseudoephedrine; ea - Home Meds: 02:43 Depakote 250 mg Oral TbEC 1 tab 2 times per day for Bipolar Disorder in Remission ea [Active]; - PMHx: 02:43 Anemia; Bipolar disorder; ea - PSHx: 02:43 Brain surgery; ea - Immunization history:: Adult Immunizations up to date. - Social history:: Smoking status: Patient uses tobacco products, smokes one pack cigarettes per day. - Ebola Screening: : No symptoms or risks identified at this time. - Family history:: not pertinent. - Hospitalizations: : No recent hospitalization is reported. Screenin:09 Abuse screen: Denies threats or abuse. Nutritional screening: No deficits noted. ea Tuberculosis screening: No symptoms or risk factors identified. Fall Risk None identified. Assessment: 03:07 General: Appears in no apparent distress. Behavior is calm, cooperative, appropriate ea for age. Pain: Complains of pain in tooth ache and headache. Neuro: Level of Consciousness is awake, alert, obeys commands, Oriented to person, place, time, situation. Cardiovascular: Patient's skin is warm and dry. Respiratory: Airway is patent Respiratory effort is even, unlabored, Respiratory pattern is regular, symmetrical. GI: Abdomen is flat, Bowel sounds present X 4 quads. : No signs and/or symptoms were reported regarding the genitourinary system. 04:39 Reassessment: Patient and/or family updated on plan of care and expected duration. Pain ea level reassessed. Pt resting with eyes closed, respirations even and unlabored. Chest expansions even and symmetrical. No s/s of pain or discomfort noted at this time. 05:28 Reassessment: Patient and/or family updated on plan of care and expected duration. Pain ea level reassessed. Patient is alert, oriented x 3, equal unlabored respirations, skin warm/dry/pink. Discharge instructions given to patient, verbalized the understanding of instruction. 05:32 Reassessment: Awaiting on patient to get dressed, reports she is attempting to find a ea ride home. 05:57 Reassessment: Patient and/or family updated on plan of care and expected duration. Pain ea level reassessed. Patient is alert, oriented x 3, equal unlabored respirations, skin warm/dry/pink. Pt discharged to the [facility]. Patient states symptoms have improved. Vital Signs: 02:40 BP 112 / 79; Pulse 79; Resp 18; Temp 98.4(O); Pulse Ox 99% ; Weight 49.9 kg; Height 5 ea ft. 2 in. (157.48 cm); Pain 8/10; 03:56 BP 128 / 88; Pulse 70; Resp 18; Pulse Ox 98% ; ea 04:40 BP 111 / 82; Pulse 56; Resp 18; Pulse Ox 99% on R/A; ea 05:30 BP 107 / 78; Pulse 60; Resp 18; Temp 97.3; Pulse Ox 98% on R/A; ea 02:40 Body Mass Index 20.12 (49.90 kg, 157.48 cm) ea ED Course: 02:38 Patient arrived in ED. ea 02:39 Vladimir Coelho MD is Attending Physician. rn 02:40 Triage completed. ea 02:40 Arm band placed on right wrist. Patient placed in an exam room, on a stretcher, on ea pulse oximetry. 02:40 Patient has correct armband on for positive identification. Bed in low position. Call ea light in reach. Side rails up X 1. 03:08 Maintain EMS IV. Dressing intact. Good blood return noted. Site clean \T\ dry. Gauge \T\ ea site: 20 G to right forearm. 03:16 Jacquelin Matias, RN is Primary Nurse. ea 05:31 No provider procedures requiring assistance completed. IV discontinued, intact, ea bleeding controlled, No redness/swelling at site. Pressure dressing applied. Administered Medications: 03:17 Drug: NS 0.9% 1000 ml Route: IV; Rate: 1000 ml; Site: right forearm; ea 05:33 Follow up: Response: No adverse reaction; IV Status: Completed infusion; IV Intake: ea 1000ml 03:55 Drug: NS 0.9% 500 ml Route: IV; Rate: bolus; Site: right forearm; ea 04:55 Follow up: IV Status: Completed infusion; IV Intake: 500ml ea 05:30 Drug: Tylenol 650 mg Route: PO; ea 05:30 Follow up: Response: Medication administered at discharge. ea Intake: 04:55 IV: 500ml; Total: 500ml. ea 05:33 IV: 1000ml; Total: 1500ml. ea Outcome: 05:06 Discharge ordered by . rn 05:31 Condition: improved ea 05:31 Discharge instructions given to patient, Instructed on discharge instructions, follow up and referral plans. Demonstrated understanding of instructions, follow-up care. 05:59 [facility] ea 06:00 Patient left the ED. ea Signatures: Vladimir Coelho MD MD rn Antunez, Elena, RN RN ea
--- NOTE | 2017-11-05 05:07 | EDPHYS ---
Physician Documentation [facility] Name: Dayami Espinosa Age: 47 yrs Sex: Female : 1970 Arrival Date: 11/05/2017 Time: 02:38 Bed 18 Private MD: ED Physician Vladimir Coelho HPI: 11/05 02:52 This 47 yrs old Female presents to ER via EMS with complaints of Dizziness, rn lightheaded. 02:52 The patient presents with dizziness, generalized weakness. Onset: The symptoms/episode rn began/occurred today. Modifying factors: The symptoms are alleviated by nothing, the symptoms are aggravated by standing up. Severity of symptoms: At their worst the symptoms were moderate in the emergency department the symptoms have improved. The patient has experienced similar episodes in the past. Reports generalized weakness, began earlier today, no fever/vomiting/diarrhea, denies current abd pain, no cough, no chest pain, reports told recently had uti, unable to fill abx yet. Denies drug or ETOH use. Original blood pressure low for ems, given small amount of fluids through IV, normal BP now, patient feels better. . Historical: - Allergies: 02:43 Amoxicillin; ea 02:43 Pseudoephedrine; ea - Home Meds: 02:43 Depakote 250 mg Oral TbEC 1 tab 2 times per day for Bipolar Disorder in Remission ea [Active]; - PMHx: 02:43 Anemia; Bipolar disorder; ea - PSHx: 02:43 Brain surgery; ea - Immunization history:: Adult Immunizations up to date. - Social history:: Smoking status: Patient uses tobacco products, smokes one pack cigarettes per day. - Ebola Screening: : No symptoms or risks identified at this time. - Family history:: not pertinent. - Hospitalizations: : No recent hospitalization is reported. ROS: 02:52 Constitutional: Negative for fever and weight loss, Eyes: Negative for injury, pain, rn redness, and discharge, Neck: Negative for injury, pain, and swelling, Cardiovascular: Negative for chest pain, palpitations, and edema, Respiratory: Negative for shortness of breath, cough, wheezing, and pleuritic chest pain, Abdomen/GI: Negative for abdominal pain, vomiting, diarrhea, and constipation, MS/Extremity: Negative for injury and deformity, Skin: Negative for injury, rash, and discoloration, Neuro: Negative for numbness, tingling, and seizure. Exam: 02:52 Constitutional: This is a well developed, well nourished patient who is awake, alert, rn and in no acute distress. Head/Face: Normocephalic, atraumatic. Eyes: Pupils equal round and reactive to light, extra-ocular motions intact. Lids and lashes normal. Conjunctiva and sclera are non-icteric and not injected. Cornea within normal limits. Periorbital areas with no swelling, redness, or edema. ENT: Dry MM, poor dentition , no sign of abscess or drainage Cardiovascular: Regular rate and rhythm with a normal S1 and S2. No gallops, murmurs, or rubs. Normal PMI, no JVD. No pulse deficits. Respiratory: Lungs have equal breath sounds bilaterally, clear to auscultation and percussion. No rales, rhonchi or wheezes noted. No increased work of breathing, no retractions or nasal flaring. Abdomen/GI: Soft, non-tender, with normal bowel sounds. No distension or tympany. No guarding or rebound. No evidence of tenderness throughout. MS/ Extremity: Pulses equal, no cyanosis. Neurovascular intact. Full, normal range of motion. Equal circumference. Neuro: Awake and alert, GCS 15, oriented to person, place, time, and situation. Cranial nerves II-XII grossly intact. Motor strength 5/5 in all extremities. Sensory grossly intact. Cerebellar exam normal. 03:33 ECG was reviewed by the Attending Physician. rn Vital Signs: 02:40 BP 112 / 79; Pulse 79; Resp 18; Temp 98.4(O); Pulse Ox 99% ; Weight 49.9 kg; Height 5 ea ft. 2 in. (157.48 cm); Pain 8/10; 03:56 BP 128 / 88; Pulse 70; Resp 18; Pulse Ox 98% ; ea 04:40 BP 111 / 82; Pulse 56; Resp 18; Pulse Ox 99% on R/A; ea 05:30 BP 107 / 78; Pulse 60; Resp 18; Temp 97.3; Pulse Ox 98% on R/A; ea 02:40 Body Mass Index 20.12 (49.90 kg, 157.48 cm) ea MDM: 02:39 Patient medically screened. rn 02:57 Refusal of service: The patient/guardian displays adequate decision making capability rn and despite a detailed discussion of alternatives, benefits, risks, and consequences refuses: CT Scan. 05:05 Differential diagnosis: generalized weakness, hyperventilation, hypovolemia, idiopathic rn dizziness, near-syncope, vertigo. Data reviewed: vital signs, nurses notes, lab test result(s), EKG, and as a result, I will discharge patient. Counseling: I had a detailed discussion with the patient and/or guardian regarding: the historical points, exam findings, and any diagnostic results supporting the discharge/admit diagnosis, lab results, the need for outpatient follow up, to return to the emergency department if symptoms worsen or persist or if there are any questions or concerns that arise at home. Response to treatment: the patient's symptoms have markedly improved after treatment, and as a result, I will discharge patient. Special discussion: I discussed with the patient/guardian in detail that at this point there is no indication for admission to the hospital. It is understood, however, that if the symptoms persist or worsen the patient needs to return immediately for re-evaluation. ED course: BP stable, symptoms improved with fluids, refused ct head, normal ecg, will dc home with return precautions. . 11/05 02:40 Order name: CBC with Diff; Complete Time: 04:32 rn 11/05 02:40 Order name: Basic Metabolic Panel; Complete Time: 04:32 rn 11/05 02:40 Order name: Urine Drug Screen; Complete Time: 03:10 rn 11/05 02:40 Order name: Urine Microscopic Only; Complete Time: 03:29 rn 11/05 02:57 Order name: Urine Dipstick--Ancillary (enter results); Complete Time: 03:29 2 11/05 02:57 Order name: Urine --Ancillary (enter results); Complete Time: 03:29 [facility] 11/05 02:40 Order name: IV Start; Complete Time: 03:07 rn 11/05 02:40 Order name: Urine Test (obtain specimen); Complete Time: 03: rn 11/05 02:40 Order name: Urine Dipstick-Ancillary (obtain specimen); Complete Time: 03:07 rn 11/05 02:40 Order name: EKG; Complete Time: 02:41 rn 11/05 02:40 Order name: EKG - Nurse/Tech; Complete Time: 03:34 rn EC:33 Rate is 70 beats/min. Rhythm is regular. QRS [place] is Normal. SD interval is normal. QRS rn interval is normal. QT interval is normal. No Q waves. T waves are Normal. No ST changes noted. Clinical impression: Normal ECG. Interpreted by me. Administered Medications: 03:17 Drug: NS 0.9% 1000 ml Route: IV; Rate: 1000 ml; Site: right forearm; ea 05:33 Follow up: Response: No adverse reaction; IV Status: Completed infusion; IV Intake: ea 1000ml 03:55 Drug: NS 0.9% 500 ml Route: IV; Rate: bolus; Site: right forearm; ea 04:55 Follow up: IV Status: Completed infusion; IV Intake: 500ml ea 05:30 Drug: Tylenol 650 mg Route: PO; ea 05:30 Follow up: Response: Medication administered at discharge. ea Disposition: 11/05/17 05:06 Discharged to Home. Impression: Dizziness and giddiness, Weakness. - Condition is Stable. - Discharge Instructions: Dizziness, Near-Syncope, Weakness. - Medication Reconciliation Form, Thank You Letter, Antibiotic Education, Prescription Opioid Use form. - Follow up: Private Physician; When: As needed; Reason: Recheck today's complaints, Re-evaluation by your physician. - Problem is new. - Symptoms have improved. Signatures: Dispatcher [employer] [facility] Vladimir Coelho MD MD rn Antunez, Elena, RN RN ea Corrections: (The following items were deleted from the chart) 03:40 02:41 Head Brain Wo Cont+CT.RAD.BRZ ordered. [facility] 05:04 02:52 Constitutional: This is a well developed, well nourished patient who is awake, rn alert, and in no acute distress. Head/Face: Normocephalic, atraumatic. Eyes: Pupils equal round and reactive to light, extra-ocular motions intact. Lids and lashes normal. Conjunctiva and sclera are non-icteric and not injected. Cornea within normal limits. Periorbital areas with no swelling, redness, or edema. ENT: Dry MM Cardiovascular: Regular rate and rhythm with a normal S1 and S2. No gallops, murmurs, or rubs. Normal PMI, no JVD. No pulse deficits. Respiratory: Lungs have equal breath sounds bilaterally, clear to auscultation and percussion. No rales, rhonchi or wheezes noted. No increased work of breathing, no retractions or nasal flaring. Abdomen/GI: Soft, non-tender, with normal bowel sounds. No distension or tympany. No guarding or rebound. No evidence of tenderness throughout. MS/ Extremity: Pulses equal, no cyanosis. Neurovascular intact. Full, normal range of motion. Equal circumference. Neuro: Awake and alert, GCS 15, oriented to person, place, time, and situation. Cranial nerves II-XII grossly intact. Motor strength 5/5 in all extremities. Sensory grossly intact. Cerebellar exam normal. rn 06:00 05:06 11/05/2017 05:06 Discharged to Home. Impression: Dizziness and giddiness; ea Weakness. Condition is Stable. Forms are Medication Reconciliation Form, Thank You Letter, Antibiotic Education, Prescription Opioid Use. Follow up: Private Physician; When: As needed; Reason: Recheck today's complaints, Re-evaluation by your physician. Problem is new. Symptoms have improved. rn
--- NOTE | 2017-11-05 07:25 | EKG ---
Test Date: 2017-11-05 Test Time: 03:27:47 Last Pattern Grader: MEASUREMENT RESULTS: Intervals: Rate: 70 UT: 148 QRSD: 84 QT: 406 QTc: 438 [place]: P: 70 UT: 148 QRS: 89 T: 81 INTERPRETIVE STATEMENTS: Normal sinus rhythm Normal ECG Compared to ECG 10/30/2017 04:45:53 No significant changes Electronically Signed On 11-05-17 07:24:35 CDT by Mike Brian
== END 2017-11-05 06:00 | disposition home or self-care (01) ==
LOC: ER 02:31
DX: R53.1 Weakness (principal); F31.70 Bipolar disorder, currently in remission, most recent episode unspecified; F17.210 Nicotine dependence, cigarettes, uncomplicated; Z88.1 Allergy status to other antibiotic agents; Z88.8 Allergy status to other drugs, medicaments and biological substances
CPT/HCPCS: 36415; 80048; 80307; 81003; 81015; 81025; 85025; 93005; 96360; 96361; 99284; J7030

== ENCOUNTER 2017-11-13 02:40 | Emergency (ER) | payer SELFPAY ==
--- OUTSIDE RECORDS SUMMARY | 2017-11-13 02:42 | XMS REPORT ---
:1970 [facility] Address [address] [place] [address] Care Team Providers Name Role Phone UNKNOWN, [...] 2017-07-02 Emergency E [facility] [id number] 08:16:00 08:16:00
--- OUTSIDE RECORDS SUMMARY | 2017-11-13 02:42 | XMS REPORT | Clinical Summary ---
:1970 Author Organization [facility] Address [address] [place] [address] Care Team Providers Name Role Phone Asked, [...] right knee MD Luisito (Primary Dx) after 11/12/2016 Social History Tobacco Use Types Packs/Day Years [...] procedure are in the results section. after 11/12/[address] Renal Stone Protocol (07/11/2017 2:53 AM) Narrative Performed At CT RENAL STONE PROTOCOL [facility] CLINICAL INDICATION:llq abd pain TECHNIQUE: Multidetector CT [...] is of unclear etiology and clinical significance. [facility]-[id number] Procedure Note Interface, Radiology Results Incoming - [...] is of unclear etiology and clinical significance. [facility]-[id number] Performing Organization Address City/[facility]/Zipcode Phone Number [facility] [address] [place] [address] hCG qualitative, urine screen (07/11/2017 2:29 AM) hCG qualitative, urine NegativeComment: [facility] DEPARTMENT OF Sensitivity of HCG test: 25 PATHOLOGY AND GENOMIC mIU/mL MEDICINE Specimen Urine Performing Organization Address City/[facility]ode Phone Number [facility] DEPARTMENT OF PATHOLOGY AND [address] [place] [phone] GENOMIC MEDICINE Urinalysis screen and microscopy, with reflex to culture (07/11/2017 1:57 AM) Specimen site Random void [facility] DEPARTMENT OF PATHOLOGY AND GENOMIC MEDICINE Color, UA Red [facility] DEPARTMENT OF PATHOLOGY AND GENOMIC MEDICINE Appearance, UA Cloudy [facility] DEPARTMENT OF PATHOLOGY AND GENOMIC MEDICINE Specific gravity, UA 1.018 1.001 - 1.035 [facility] DEPARTMENT OF PATHOLOGY AND GENOMIC MEDICINE pH, UA 6.0 5.0 - 8.5 [facility] DEPARTMENT OF PATHOLOGY AND GENOMIC MEDICINE Protein, UA 1+ (A) Negative [facility] DEPARTMENT OF PATHOLOGY AND GENOMIC MEDICINE Glucose, UA Negative Negative [facility] DEPARTMENT OF PATHOLOGY AND GENOMIC MEDICINE Ketones, UA Negative Negative [facility] DEPARTMENT OF PATHOLOGY AND GENOMIC MEDICINE Bilirubin, UA Negative Negative [facility] DEPARTMENT OF PATHOLOGY AND GENOMIC MEDICINE Blood, UA Moderate (A) Negative [facility] DEPARTMENT OF PATHOLOGY AND GENOMIC MEDICINE Nitrite, UA Positive (A) Negative [facility] DEPARTMENT OF PATHOLOGY AND GENOMIC MEDICINE Urobilinogen, UA 2.0 (A) <2.0 [facility] DEPARTMENT OF PATHOLOGY AND GENOMIC MEDICINE Leukocyte esterase, UA Large (A) Negative [facility] DEPARTMENT OF PATHOLOGY AND GENOMIC MEDICINE Epithelial cells, UA 3 /HPF [facility] DEPARTMENT OF PATHOLOGY AND GENOMIC MEDICINE WBC, UA >180 (H) 0 - 4 /HPF [facility] DEPARTMENT OF PATHOLOGY AND GENOMIC MEDICINE RBC, UA 7 (H) 0 - 5 /HPF [facility] DEPARTMENT OF PATHOLOGY AND GENOMIC MEDICINE Bacteria, UA Many (A) None seen [facility] DEPARTMENT OF PATHOLOGY AND GENOMIC MEDICINE Yeast, UA None seen [facility] DEPARTMENT OF PATHOLOGY AND GENOMIC MEDICINE Yeast with pseudohyphae, UA None seen [facility] DEPARTMENT OF PATHOLOGY AND GENOMIC MEDICINE Specimen Urine Performing Organization Address City/[facility] Cent[facility]ode Phone Number [facility] DEPARTMENT OF PATHOLOGY AND [address] [place], [place] [phone] [facility] Gram stain (07/11/2017 1:57 AM) Gram stain result Many WBC's [facility] DEPARTMENT OF PATHOLOGY Many Gram positive cocci in clusters AND GENOMIC MEDICINE Comment: Specimen Information Specimen Source: Urine Specimen Site: Random void Specimen Urine - Random void Performing Organization Address City/[facility] Centercomn Phone Number [facility] DEPARTMENT OF PATHOLOGY AND [address] [place] [phone] [facility] Urine culture (07/11/2017 1:57 AM) Urine culture isolate Staphylococcus aureus [facility] DEPARTMENT OF 10-5 cfu/ml PATHOLOGY [...] RAH 1 mcg/mL: Susceptible Performing Organization Address [facility] Centercomn Phone Number [facility] DEPARTMENT OF PATHOLOGY AND [address] [place], [place] [phone] [facility] MEDICINE XR Knee 1 Or 2 Vw Right (07/06/2017 2:34 AM) Narrative Performed At EXAM:XR KNEE 1 OR 2 VW RIGHT [facility] CLINICAL HISTORY:RECENT TRAUMAKNEE COMPARISON:None. IMPRESSION: 1.No evidence of acute displaced right knee fracture or dislocation. No significant joint effusion. Question of mild medial soft tissue swelling. [facility]-[id number] Procedure Note Interface, Radiology Results Incoming - 07/06/2017 2:38 AM CDT EXAM: XR KNEE 1 OR 2 VW RIGHT CLINICAL HISTORY: RECENT TRAUMA KNEE COMPARISON: None. IMPRESSION: 1. No evidence of acute displaced right knee fracture or dislocation. No significant joint effusion. Question of mild medial soft tissue swelling. [id number] Performing Organization Address [facility] Phone Number [facility] [address] [place] [address] after 11/12/2016
--- OUTSIDE RECORDS SUMMARY | 2017-11-13 02:42 | XMS REPORT | Clinical Summary ---
:1970 Author Organization [facility] Address [address] [place] [address] Phone Care Team Providers Name Role Phone [...] Dx);Nausea;Acute constipation;Acute superficial gastritis without hemorrhage after 11/12/2016 Social History Tobacco Use Types [...] Not on file Results Not on fileafter 11/12/2016
[2017-11-13 03:21] LABS: Urine Blood TRACE (NEG); Urine Glucose NEGATIVE (NEG); Urine Protein NEGATIVE (NEG); Urine Specific Gravity 1.015 (1.005-1.030)
[2017-11-13 04:02] LABS: Urine Bacteria <20 /HPF (<20); Urine Culture Reflex Order NOT NEEDED; Urine RBC <5 /HPF (NONE SEEN)
--- NOTE | 2017-11-13 04:06 | ER ---
Nurse's Notes [facility] Name: Dayami Espinosa Age: 47 yrs Sex: Female : 1970 Arrival Date: 11/13/2017 Time: 02:42 Bed 17 Private MD: Diagnosis: Dysuria Presentation: 11/13 02:43 Presenting complaint: EMS states: Patient felt dizzy and lightheaded and almost past ao out after drinking a red bull. Patient also C/O abdominal pain and a possible UTI. Patient also think that she might be because her LMP was on October 05 and has had some abdominal cramping. Transition of care: patient was not received from another setting of care. Onset of symptoms is unknown. Risk Assessment: Do you want to hurt yourself or someone else? Patient reports no desire to harm self or others. Initial Sepsis Screen: Does the patient meet any 2 criteria? No. Patient's initial sepsis screen is negative. Does the patient have a suspected source of infection? No. Patient's initial sepsis screen is negative. Care prior to arrival: None. 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 - Social history:: Smoking status: Patient uses tobacco products, smokes one pack cigarettes per day. - Ebola Screening: : Patient negative for fever greater than or equal to 101.5 degrees Fahrenheit, and additional compatible Ebola Virus Disease symptoms Patient denies exposure to infectious person Patient denies travel to an Ebola-affected area in the 21 days before illness onset. Screenin:01 Abuse screen: Denies threats or abuse. Denies injuries from another. Nutritional ao screening: No deficits noted. Tuberculosis screening: No symptoms or risk factors identified. Fall Risk None identified. Assessment: 02:58 General: Appears in no apparent distress. uncomfortable, Behavior is agitated, anxious, ao inappropriate for age, listless. Pain: Complains of pain in abdomen Pain currently is 8 out of 10 on a pain scale. Neuro: Level of Consciousness is awake, alert, Oriented to person. Cardiovascular: Capillary refill < 3 seconds Patient's skin is warm and dry. Respiratory: Airway is patent Respiratory effort is even, unlabored, Respiratory pattern is regular, symmetrical, Breath sounds are clear. GI: Abdomen is non-distended. : No signs and/or symptoms were reported regarding the genitourinary system. EENT: No signs and/or symptoms were reported regarding the EENT system. Derm: Skin is intact, Skin is pink, warm \T\ dry. normal, Skin temperature is warm. Musculoskeletal: Circulation, motion, and sensation intact. Range of motion: intact in all extremities. 03:47 Reassessment: Patient appears in no apparent distress at this time. Patient and/or ao family updated on plan of care and expected duration. Pain level reassessed. Patient is alert, oriented x 3, equal unlabored respirations, skin warm/dry/pink. Patient sleeping with no SS of distress. 04:35 Reassessment: Patient discharged. Instructions given to patient. Patient states that ao she is to sleepy and not leaving the room. Patient was advise to wait in the main [facility]. 04:56 Reassessment: Patient was taken in a wheelchair to [facility]. Patient agree with DC. ao Vital Signs: 02:50 BP 127 / 91; Pulse 81; Resp 16; Temp 98(TE); Pulse Ox 100% on R/A; Pain 7/10; oe 02:52 Weight 61.23 kg; Height 4 ft. 9 in. (144.78 cm); ao 02:56 BP 127 / 91; Pulse 81; Resp 16; Temp 98.0(TE); Pulse Ox 100% on R/A; Pain 7/10; oe 03:47 BP 98 / 69; Pulse 60; Resp 14; Pulse Ox 98% on R/A; Pain 0/10; ao 02:52 Body Mass Index 29.21 (61.23 kg, 144.78 cm) ao ED Course: 02:42 Patient arrived in ED. bp 02:43 Chago Selby RN is Primary Nurse. ao 02:46 Oliver Kaye MD is Attending Physician. gs 02:47 Triage completed. ao 02:49 Arm band placed on right wrist. 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 03:01 Patient has correct armband on for positive identification. Pulse ox on. NIBP on. ao 04:45 No provider procedures requiring assistance completed. IV discontinued, intact, ao bleeding controlled, No redness/swelling at site. Pressure dressing applied. Administered Medications: No medications were administered Outcome: 04:05 Discharge ordered by . gs 04:45 Discharged to home ambulatory. ao 04:45 Condition: stable 04:45 Discharge instructions given to patient, Instructed on discharge instructions, follow up and referral plans. Demonstrated understanding of instructions, follow-up care, medications. 04:57 Patient left the ED. ao Signatures: Chago Selby, RN RN Joseph Villagran Gregory, MD MD gs Peltier, Brian RN RN bp
--- NOTE | 2017-11-13 04:06 | EDPHYS ---
Physician Documentation [facility] Name: Dayami Espinosa Age: 47 yrs Sex: Female : 1970 Arrival Date: 11/13/2017 Time: 02:42 Bed 17 Private MD: ED Physician Oliver Kaye HPI: 11/13 03:17 This 47 yrs old Female presents to ER via EMS with complaints of thinks she gs is . 03:17 The patient presents with urinary symptoms, dysuria. Onset: The symptoms/episode gs began/occurred gradually, yesterday. Modifying factors: The symptoms are alleviated by nothing, the symptoms are aggravated by nothing. Associated signs and symptoms: Pertinent negatives: fever, vaginal bleeding, vaginal discharge. Severity of symptoms: At their worst the symptoms were mild, in the emergency department the symptoms are unchanged. The patient has experienced similar episodes in the past, a few times. last mp 10/05/17. 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 - Social history:: Smoking status: Patient uses tobacco products, smokes one pack cigarettes per day. - Ebola Screening: : Patient negative for fever greater than or equal to 101.5 degrees Fahrenheit, and additional compatible Ebola Virus Disease symptoms Patient denies exposure to infectious person Patient denies travel to an Ebola-affected area in the 21 days before illness onset. ROS: 03:17 Neuro: Positive for mild lightheaded. gs 03:17 All other systems are negative. Exam: 03:17 Head/Face: Normocephalic, atraumatic. Eyes: Pupils equal round and reactive to light, gs extra-ocular motions intact. Lids and lashes normal. Conjunctiva and sclera are non-icteric and not injected. Cornea within normal limits. Periorbital areas with no swelling, redness, or edema. Neck: Trachea midline, no thyromegaly or masses palpated, and no cervical lymphadenopathy. Supple, full range of motion without nuchal rigidity, or vertebral point tenderness. No Meningismus. Chest/axilla: Normal chest wall appearance and motion. Nontender with no deformity. No lesions are appreciated. Cardiovascular: Regular rate and rhythm with a normal S1 and S2. No gallops, murmurs, or rubs. Normal PMI, no JVD. No pulse deficits. Respiratory: Lungs have equal breath sounds bilaterally, clear to auscultation and percussion. No rales, rhonchi or wheezes noted. No increased work of breathing, no retractions or nasal flaring. Abdomen/GI: Soft, non-tender, with normal bowel sounds. No distension or tympany. No guarding or rebound. No evidence of tenderness throughout. Back: No spinal tenderness. No costovertebral tenderness. Full range of motion. Skin: Warm, dry with normal turgor. Normal color with no rashes, no lesions, and no evidence of cellulitis. MS/ Extremity: Pulses equal, no cyanosis. Neurovascular intact. Full, normal range of motion. Neuro: Awake and alert, GCS 15, oriented to person, place, time, and situation. Cranial nerves II-XII grossly intact. Motor strength 5/5 in all extremities. Sensory grossly intact. Cerebellar exam normal. Normal gait. 03:17 Constitutional: The patient appears alert, awake. 03:17 ENT: Dental exam: very poor dentition. Vital Signs: 02:50 BP 127 / 91; Pulse 81; Resp 16; Temp 98(TE); Pulse Ox 100% on R/A; Pain 7/10; oe 02:52 Weight 61.23 kg; Height 4 ft. 9 in. (144.78 cm); ao 02:56 BP 127 / 91; Pulse 81; Resp 16; Temp 98.0(TE); Pulse Ox 100% on R/A; Pain 7/10; oe 03:47 BP 98 / 69; Pulse 60; Resp 14; Pulse Ox 98% on R/A; Pain 0/10; ao 02:52 Body Mass Index 29.21 (61.23 kg, 144.78 cm) ao MDM: 02:46 Patient medically screened. gs 03:17 Differential diagnosis: urinary tract infection, early . Data reviewed: vital gs signs, nurses notes. Response to treatment: the patient's symptoms have markedly improved after treatment, and as a result, I will discharge patient. 11/13 02:55 Order name: Urine Microscopic Only; Complete Time: 04:05 11/13 03:00 Order name: Urine Dipstick--Ancillary (enter results); Complete Time: 03:24 ms 11/13 02:55 Order name: Urine Test (obtain specimen); Complete Time: 03:01 11/13 02:55 Order name: Urine Dipstick-Ancillary (obtain specimen); Complete Time: 03:01 11/13 03:00 Order name: Urine --Ancillary (enter results); Complete Time: 03:24 ms Administered Medications: No medications were administered Disposition: 11/13/17 04:05 Discharged to Home. Impression: Dysuria. - Condition is Stable. - Discharge Instructions: Dysuria. - Medication Reconciliation Form, Thank You Letter, Antibiotic Education, Prescription Opioid Use form. - Follow up: Private Physician; When: 2 - 3 days; Reason: Re-evaluation by your physician. Signatures: Dispatcher [facility] Figueroa RN RN ao Starr, Gregory, MD MD Corrections: (The following items were deleted from the chart) 04:57 04:05 11/13/2017 04:05 Discharged to Home. Impression: Dysuria. Condition is Stable. ao Forms are Medication Reconciliation Form, Thank You Letter, Antibiotic Education, Prescription Opioid Use. Follow up: Private Physician; When: 2 - 3 days; Reason: Re-evaluation by your physician. gs
== END 2017-11-13 04:57 | disposition home or self-care (01) ==
LOC: ER 02:40
DX: R30.0 Dysuria (principal); F31.70 Bipolar disorder, currently in remission, most recent episode unspecified; F17.210 Nicotine dependence, cigarettes, uncomplicated
CPT/HCPCS: 81003; 81015; 81025; 99283

== ENCOUNTER 2018-01-03 22:05 | Emergency (ER) | payer SELFPAY ==
--- OUTSIDE RECORDS SUMMARY | 2018-01-03 22:06 | XMS REPORT | Clinical Summary ---
:1970 Author Organization [facility] Address [address] [place] [address] Phone Care Team Providers Name Role Phone [...] Dx);Nausea;Acute constipation;Acute superficial gastritis without hemorrhage after 01/02/2017 Social History Tobacco Use Types Packs/Day Years [...] Not on file Results Not on fileafter 01/02/2017
--- OUTSIDE RECORDS SUMMARY | 2018-01-03 22:06 | XMS REPORT | Clinical Summary ---
:1970 Author Organization [facility] Address [address] [place] [address] Care Team Providers Name Role Phone Asked, [...] right knee MD Luisito (Primary Dx) after 01/02/2017 Social History Tobacco Use Types [...] procedure are in the results section. after 01/02/[address] Renal Stone Protocol (07/11/2017 2:53 [...] is of unclear etiology and clinical significance. [facility]-[id number] Procedure Note Interface, Radiology Results Incoming - [...] is of unclear etiology and clinical significance. [id number] Performing Organization Address City/[facility]/Zipcode Phone Number [facility] [address] [place] [address] hCG qualitative, urine screen (07/11/2017 2:29 AM) hCG qualitative, urine NegativeComment: [facility] DEPARTMENT OF Sensitivity of HCG test: 25 PATHOLOGY AND GENOMIC mIU/mL MEDICINE Specimen Urine Performing Organization Address City/[facility] Facilitycode Phone Number [facility] DEPARTMENT OF PATHOLOGY AND [address] [place] [phone] GENOMIC MEDICINE Urinalysis screen and microscopy, with reflex to culture (07/11/2017 1:57 AM) Specimen site Random void [facility] DEPARTMENT OF PATHOLOGY AND GENOMIC MEDICINE Color, UA Red [facility] DEPARTMENT OF PATHOLOGY AND GENOMIC MEDICINE Appearance, UA Cloudy [facility] DEPARTMENT OF PATHOLOGY AND GENOMIC MEDICINE Specific gravity, UA 1.018 1.001 - 1.[address] [facility] DEPARTMENT OF PATHOLOGY AND GENOMIC MEDICINE pH, UA 6.0 5.0 - 8.[address] [facility] DEPARTMENT OF PATHOLOGY AND GENOMIC MEDICINE Protein, UA 1+ (A) Negative [facility] DEPARTMENT OF PATHOLOGY AND GENOMIC MEDICINE Glucose, UA Negative Negative [facility] DEPARTMENT OF PATHOLOGY AND GENOMIC MEDICINE Ketones, UA Negative Negative [facility] DEPARTMENT OF PATHOLOGY AND GENOMIC MEDICINE Bilirubin, UA Negative Negative [facility] DEPARTMENT OF PATHOLOGY AND GENOMIC MEDICINE Blood, UA Moderate (A) Negative [facility] DEPARTMENT OF PATHOLOGY AND GENOMIC MEDICINE Nitrite, UA Positive (A) Negative [facility] DEPARTMENT OF PATHOLOGY AND GENOMIC MEDICINE Urobilinogen, UA 2.0 (A) <2.[address] [facility] DEPARTMENT OF PATHOLOGY AND GENOMIC MEDICINE Leukocyte esterase, UA Large (A) Negative [facility] DEPARTMENT OF PATHOLOGY AND GENOMIC MEDICINE Epithelial cells, UA 3 /HPF [facility] DEPARTMENT OF PATHOLOGY AND GENOMIC MEDICINE WBC, UA >180 (H) 0 - 4 /HPF [facility] DEPARTMENT OF PATHOLOGY AND GENOMIC MEDICINE RBC, UA 7 (H) 0 - 5 /HPF [facility] DEPARTMENT OF PATHOLOGY AND GENOMIC MEDICINE Bacteria, UA Many (A) None seen [facility] DEPARTMENT OF PATHOLOGY AND GENOMIC MEDICINE Yeast, UA None seen [facility] DEPARTMENT OF PATHOLOGY AND GENOMIC MEDICINE Yeast with pseudohyphae, UA None seen [facility] DEPARTMENT OF PATHOLOGY AND GENOMIC MEDICINE Specimen Urine Performing Organization Address City/[facility] Facilitycode Phone Number [facility] DEPARTMENT OF PATHOLOGY AND [address] [place], [place] [phone] [facility] Gram stain (07/11/2017 1:57 AM) Gram stain result Many WBC's [facility] DEPARTMENT OF PATHOLOGY Many Gram positive cocci in clusters AND GENOMIC MEDICINE Comment: Specimen Information Specimen Source: Urine Specimen Site: Random void Specimen Urine - Random void Performing Organization Address City/[facility] Facilityconj Phone Number [facility] DEPARTMENT OF PATHOLOGY AND [address] [place] [phone] [facility] Urine culture (07/11/2017 1:57 AM) Urine culture isolate Staphylococcus aureus [facility] DEPARTMENT OF 10-5 cfu/ml PATHOLOGY AND [...] RAH 1 mcg/mL: Susceptible Performing Organization Address [facility] Facilityconj Phone Number [facility] DEPARTMENT OF PATHOLOGY AND [address] [place], [place] [phone] [facility] MEDICINE XR Knee 1 Or 2 Vw Right (07/06/2017 2:34 AM) Narrative Performed At EXAM:XR KNEE 1 OR 2 VW RIGHT [facility] CLINICAL HISTORY:RECENT TRAUMAKNEE COMPARISON:None. IMPRESSION: 1.No evidence of acute displaced right knee fracture or dislocation. No significant joint effusion. Question of mild medial soft tissue swelling. [facility]-[id number] Procedure Note Interface, Radiology Results Incoming - 07/06/2017 2:38 AM CDT EXAM: XR KNEE 1 OR 2 VW RIGHT CLINICAL HISTORY: RECENT TRAUMA KNEE COMPARISON: None. IMPRESSION: 1. No evidence of acute displaced right knee fracture or dislocation. No significant joint effusion. Question of mild medial soft tissue swelling. [id number] Performing Organization Address [facility] Phone Number [facility] [address] [place] [address] after 01/02/2017
--- OUTSIDE RECORDS SUMMARY | 2018-01-03 22:07 | XMS REPORT ---
:1970 [facility] Address [address] [place] [address] [address] [place] [address] Care Team Providers Name Role Phone UNKNOWN, REFFERING Primary Care Provider Unavailable Problems This patient has no known problems. Allergies, Adverse Reactions, Alerts This patient has no known allergies or adverse reactions. Medications This patient has no known medications. Encounters Start End Encounter Admission Attending Care Care Encounter Date/Time Date/Time Type Type Clinicians Facility Department ID 2017-07-02 2017-07-02 Emergency E [facility] MED [id number] 08:16:00 08:16:00
--- NOTE | 2018-01-04 00:42 | EDPHYS ---
Physician Documentation [facility] Name: Dayami Espinosa Age: 47 yrs Sex: Female : 1970 Arrival Date: 01/03/2018 Time: 22:06 Bed 18 Private MD: ED Physician Clinton Esquivel HPI: 01/04 00:37 This 47 yrs old Female presents to ER via Ambulatory with complaints of pm1 Dental Pain. 00:37 The patient presents with pain. The problem is located in the upper left cuspid. Onset: pm1 The symptoms/episode began/occurred 1 week(s) ago. Duration: The symptoms are chronic, are continuous. Modifying factors: The symptoms are alleviated by nothing, the symptoms are aggravated by food. Associated signs and symptoms: Pertinent negatives: fever, inability to eat, nausea, vomiting. Severity of symptoms: in the emergency department the symptoms are actually worse. The patient has experienced similar episodes in the past, chronically. The patient has not recently seen a physician. 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 - Social history:: Smoking status: Patient uses tobacco products, smokes one-half pack cigarettes per day, Patient uses alcohol, occasionally. Patient/guardian denies using street drugs. - Ebola Screening: : No symptoms or risks identified at this time. ROS: 01/04 00:37 Constitutional: Negative for fever, chills, and weight loss, Eyes: Negative for injury, pm1 pain, redness, and discharge, Neck: Negative for injury, pain, and swelling. Cardiovascular: Negative for chest pain, palpitations, and edema, Respiratory: Negative for shortness of breath, cough, wheezing, and pleuritic chest pain, Abdomen/GI: Negative for abdominal pain, nausea, vomiting, diarrhea, and constipation, Back: Negative for injury and pain, : Negative for injury, bleeding, discharge, and swelling, MS/Extremity: Negative for injury and deformity, Skin: Negative for injury, rash, and discoloration, Neuro: Negative for headache, weakness, numbness, tingling, and seizure. ENT: Positive for dental pain, Negative for drainage from ear(s), ear pain, sore throat. Exam: 00:37 Constitutional: This is a well developed, well nourished patient who is awake, alert, pm1 and in no acute distress. Head/Face: Normocephalic, atraumatic. Eyes: Pupils equal round and reactive to light, extra-ocular motions intact. Lids and lashes normal. Conjunctiva and sclera are non-icteric and not injected. Cornea within normal limits. Periorbital areas with no swelling, redness, or edema. 00:37 Neck: Trachea midline, no thyromegaly or masses palpated, and no cervical lymphadenopathy. Supple, full range of motion without nuchal rigidity, or vertebral point tenderness. No Meningismus. Chest/axilla: Normal chest wall appearance and motion. Nontender with no deformity. No lesions are appreciated. Cardiovascular: Regular rate and rhythm with a normal S1 and S2. No gallops, murmurs, or rubs. Normal PMI, no JVD. No pulse deficits. Respiratory: Lungs have equal breath sounds bilaterally, clear to auscultation and percussion. No rales, rhonchi or wheezes noted. No increased work of breathing, no retractions or nasal flaring. Abdomen/GI: Soft, non-tender, with normal bowel sounds. No distension or tympany. No guarding or rebound. No evidence of tenderness throughout. Back: No spinal tenderness. No costovertebral tenderness. Full range of motion. Skin: Warm, dry with normal turgor. Normal color with no rashes, no lesions, and no evidence of cellulitis. MS/ Extremity: Pulses equal, no cyanosis. Neurovascular intact. Full, normal range of motion. 00:37 ENT: External ear(s): are unremarkable, Ear canal(s): are normal, TM's: are normal, Nose: is normal, Mouth: Lips: normal, Oral mucosa: normal, Gums: normal with healthy appearance, Tongue: is normal, abscess, is not appreciated, Dental exam: dental caries, that is severe, diffusely, gum swelling, not appreciated, missing teeth, diffusely. 00:37 Neuro: Orientation: is normal, Motor: is normal, moves all fours. Vital Signs: 01/03 22:53 BP 101 / 89; Pulse 94; Resp 16 S; Temp 98.8(O); Pulse Ox 99% on R/A; Weight 46.27 kg bb (R); Height 5 ft. 3 in. (160.02 cm) (R); Pain 8/10; 23:53 BP 119 / 81; Pulse 86; Resp 16; Pulse Ox 99% on R/A; mt 22:53 Body Mass Index 18.07 (46.27 kg, 160.02 cm) bb MDM: 01/04 00:13 Patient medically screened. pm1 00:40 Data reviewed: vital signs. Data interpreted: Pulse oximetry: on room air is 99 %. pm1 Interpretation: normal. Counseling: I had a detailed discussion with the patient and/or guardian regarding: the historical points, exam findings, and any diagnostic results supporting the discharge/admit diagnosis, the need for outpatient follow up, to return to the emergency department if symptoms worsen or persist or if there are any questions or concerns that arise at home. Administered Medications: No medications were administered Disposition: 04:25 Co-signature as Attending Physician, Clinton Esquivel MD I agree with the assessment and wa plan of care. Disposition: 01/04/18 00:41 Discharged to Home. Impression: Dental caries. - Condition is Stable. - Discharge Instructions: Dental Pain. - Prescriptions for Clindamycin HCl 300 mg Oral Capsule - take 1 capsule by ORAL route every 6 hours for 10 days; 40 capsule. Naprosyn 500 mg Oral Tablet - take 1 tablet by ORAL route 2 times per day take with food; 30 tablet. - Medication Reconciliation Form, Thank You Letter, Antibiotic Education, Prescription Opioid Use form. - Follow up: Emergency Department; When: As needed; Reason: Worsening of condition. Follow up: Private Physician; When: 2 - 3 days; Reason: Recheck today's complaints, Continuance of care, Re-evaluation by your physician. - Problem is new. - Symptoms have improved. Signatures: Belen Estrada RN RN bb Ming Fontenot, RETAIL COVERAGE MERCHANDISER RETAIL COVERAGE MERCHANDISER pm1 Clinton Esquivel MD MD wa Davies, Jonathon RN RN jd3 Corrections: (The following items were deleted from the chart) 00:58 00:41 01/04/2018 00:41 Discharged to Home. Impression: Dental caries. Condition is jd3 Stable. Forms are Medication Reconciliation Form, Thank You Letter, Antibiotic Education, Prescription Opioid Use. Follow up: Emergency Department; When: As needed; Reason: Worsening of condition. Follow up: Private Physician; When: 2 - 3 days; Reason: Recheck today's complaints, Continuance of care, Re-evaluation by your physician. Problem is new. Symptoms have improved. pm1
--- NOTE | 2018-01-04 00:42 | ER ---
Nurse's Notes [facility] Name: Dayami Espinosa Age: 47 yrs Sex: Female : 1970 Arrival Date: 01/03/2018 Time: 22:06 Bed 18 Private MD: Diagnosis: Dental caries Presentation: 01/03 22:50 Presenting complaint: Patient states: she is having dental pain to left upper jaw for bb approx one week. Transition of care: patient was not received from another setting of care. Onset of symptoms was December 27, 2017. Risk Assessment: Do you want to hurt yourself or someone else? Patient reports no desire to harm self or others. Initial Sepsis Screen: Does the patient meet any 2 criteria? No. Patient's initial sepsis screen is negative. Does the patient have a suspected source of infection? No. Patient's initial sepsis screen is negative. Care prior to arrival: None. 22:50 Method Of Arrival: Ambulatory bb 22:50 Acuity: JAZMIN 5 bb Triage Assessment: 22:53 General: Appears in no apparent distress. slender, Behavior is calm, cooperative. Pain: bb Complains of pain in left upper jaw. EENT: Poor dentition noted. Neuro: Level of Consciousness is awake, alert, obeys commands, Oriented to person, place, time, situation. Cardiovascular: No deficits noted. Respiratory: Respiratory effort is even, unlabored. GI: No deficits noted. No signs and/or symptoms were reported involving the gastrointestinal system. Derm: Skin is pink, warm \T\ dry. Musculoskeletal: Circulation, motion, and sensation intact. 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 - Social history:: Smoking status: Patient uses tobacco products, smokes one-half pack cigarettes per day, Patient uses alcohol, occasionally. Patient/guardian denies using street drugs. - Ebola Screening: : No symptoms or risks identified at this time. Screenin/03 00:01 Abuse screen: Denies threats or abuse. Nutritional screening: No deficits noted. jd3 Tuberculosis screening: No symptoms or risk factors identified. Fall Risk Ambulatory Aid- None/Bed Rest/Nurse Assist (0 pts). Gait- Normal/Bed Rest/Wheelchair (0 pts) Mental Status- Oriented to own ability (0 pts). Total Alfred Fall Scale indicates No Risk (0-24 pts). Assessment: 01/03 23:15 Reassessment: No changes from previously documented assessment. see triage assessment. carmel Fontenot TACKING MACHINE OPERATOR in triage for pt evaluation but pt is not present at this time. 01/04 00:04 General: Appears in no apparent distress. uncomfortable, Behavior is calm, cooperative, jd3 appropriate for age. Pain: Complains of pain in upper left cuspid Quality of pain is described as aching. Neuro: Level of Consciousness is awake, alert, obeys commands, Oriented to person, place, time, situation. Cardiovascular: Capillary refill < 3 seconds Patient's skin is warm and dry. Respiratory: Airway is patent Respiratory effort is even, unlabored, Respiratory pattern is regular, symmetrical. GI: No signs and/or symptoms were reported involving the gastrointestinal system. : No signs and/or symptoms were reported regarding the genitourinary system. EENT: No signs and/or symptoms were reported regarding the EENT system. Derm: Skin is intact, Skin is dry, Skin is normal, Skin temperature is warm. Musculoskeletal: Circulation, motion, and sensation intact. Range of motion: intact in all extremities. 00:47 Reassessment: Patient appears in no apparent distress at this time. No changes from jd3 previously documented assessment. Patient and/or family updated on plan of care and expected duration. Pain level reassessed. Patient is alert, oriented x 3, equal unlabored respirations, skin warm/dry/pink. Vital Signs: 01/03 22:53 BP 101 / 89; Pulse 94; Resp 16 S; Temp 98.8(O); Pulse Ox 99% on R/A; Weight 46.27 kg bb (R); Height 5 ft. 3 in. (160.02 cm) (R); Pain 8/10; 23:53 BP 119 / 81; Pulse 86; Resp 16; Pulse Ox 99% on R/A; mt 22:53 Body Mass Index 18.07 (46.27 kg, 160.02 cm) bb ED Course: 22:06 Patient arrived in ED. ds1 22:23 Patient's name was called from ER lobby. No response. bb 22:52 Triage completed. bb 22:53 Arm band placed on. bb 23:19 Patient's name was called from ER lobby. No response. bb 23:59 Ming Fontenot NP is PHCP. pm1 23:59 Clinton Esquivel MD is Attending Physician. pm1 01/04 00:01 Matt Meraz, RN is Primary Nurse. jd3 00:01 Patient has correct armband on for positive identification. Bed in low position. Call jd3 light in reach. Side rails up X 1. Adult w/ patient. 00:47 No provider procedures requiring assistance completed. Patient did not have IV access jd3 during this emergency room visit. Administered Medications: No medications were administered Outcome: 00:41 Discharge ordered by . pm1 00:47 Discharged to home ambulatory. jd3 00:47 Condition: stable 00:47 Discharge instructions given to patient, Instructed on discharge instructions, follow up and referral plans. medication usage, Demonstrated understanding of instructions, follow-up care, medications, Prescriptions given X 2. 00:58 Patient left the ED. jd3 Signatures: Marjorie Caldwell ds1 Belen Estrada, BENI RN bb Ming Fontenot, BUD TACKING MACHINE OPERATOR pm1 Carolina Monet nd Matt Meraz, BENI RN jd3 Corrections: (The following items were deleted from the chart) 01/03 22:56 22:50 Presenting complaint: Patient states: she is having dental pain to right upper bb jaw for approx one week bb
== END 2018-01-04 00:58 | disposition home or self-care (01) ==
LOC: ER 22:05
DX: K02.9 Dental caries, unspecified (principal); F17.210 Nicotine dependence, cigarettes, uncomplicated; F31.70 Bipolar disorder, currently in remission, most recent episode unspecified; Z88.1 Allergy status to other antibiotic agents; Z88.8 Allergy status to other drugs, medicaments and biological substances
CPT/HCPCS: 99282

== ENCOUNTER 2018-01-09 03:38 | Emergency (ER) | payer SELFPAY ==
--- OUTSIDE RECORDS SUMMARY | 2018-01-09 03:40 | XMS REPORT | Clinical Summary ---
:1970 Author Organization [facility] Address [address] [place] [address] Care Team Providers Name Role Phone Asked, [...] right knee MD Luisito (Primary Dx) after 01/08/2017 Social History Tobacco Use Types Packs/Day Years [...] procedure are in the results section. after 01/08/[address] Renal Stone Protocol (07/11/2017 2:53 AM) Narrative Performed At CT RENAL STONE PROTOCOL [facility] CLINICAL INDICATION:llq abd pain TECHNIQUE: Multidetector [...] is of unclear etiology and clinical significance. [facility]-[id number] Procedure Note Interface, Radiology Results Incoming - [...] is of unclear etiology and clinical significance. [facility]-[id number] Performing Organization Address City/[facility]/Zipcode Phone Number [facility] [address] [place] [address] hCG qualitative, urine screen (07/11/2017 2:29 AM) hCG qualitative, urine NegativeComment: [facility] DEPARTMENT OF Sensitivity of HCG test: 25 PATHOLOGY AND GENOMIC mIU/mL MEDICINE Specimen Urine Performing Organization Address City/[facility] Phone Number [facility] DEPARTMENT OF PATHOLOGY AND [address] [place] [phone] GENOMIC MEDICINE Urinalysis screen and microscopy, with reflex to culture (07/11/2017 1:57 AM) Specimen site Random void [facility] DEPARTMENT OF PATHOLOGY AND GENOMIC MEDICINE Color, UA Red [facility] DEPARTMENT OF PATHOLOGY AND GENOMIC MEDICINE Appearance, UA Cloudy [facility] DEPARTMENT OF PATHOLOGY AND GENOMIC MEDICINE Specific gravity, UA 1.018 1.001 - 1.035 [facility] DEPARTMENT OF PATHOLOGY AND GENOMIC MEDICINE pH, UA 6.0 5.0 - 8.5 [facility] DEPARTMENT OF PATHOLOGY AND GENOMIC MEDICINE Protein, UA 1+ (A) Negative [facility] DEPARTMENT OF PATHOLOGY AND GENOMIC MEDICINE Glucose, UA Negative Negative [facility] DEPARTMENT OF PATHOLOGY AND GENOMIC MEDICINE Ketones, UA Negative Negative [facility] DEPARTMENT OF PATHOLOGY AND GENOMIC MEDICINE Bilirubin, UA Negative Negative [facility] DEPARTMENT OF PATHOLOGY AND GENOMIC MEDICINE Blood, UA Moderate (A) Negative [facility] DEPARTMENT OF PATHOLOGY AND GENOMIC MEDICINE Nitrite, UA Positive (A) Negative [facility] DEPARTMENT OF PATHOLOGY AND GENOMIC MEDICINE Urobilinogen, UA 2.0 (A) <2.0 [facility] DEPARTMENT OF PATHOLOGY AND GENOMIC MEDICINE Leukocyte esterase, UA Large (A) Negative [facility] DEPARTMENT OF PATHOLOGY AND GENOMIC MEDICINE Epithelial cells, UA 3 /HPF [facility] DEPARTMENT OF PATHOLOGY AND GENOMIC MEDICINE WBC, UA >180 (H) 0 - 4 /HPF [facility] DEPARTMENT OF PATHOLOGY AND GENOMIC MEDICINE RBC, UA 7 (H) 0 - 5 /HPF [facility] DEPARTMENT OF PATHOLOGY AND GENOMIC MEDICINE Bacteria, UA Many (A) None seen [facility] DEPARTMENT OF PATHOLOGY AND GENOMIC MEDICINE Yeast, UA None seen [facility] DEPARTMENT OF PATHOLOGY AND GENOMIC MEDICINE Yeast with pseudohyphae, UA None seen [facility] DEPARTMENT OF PATHOLOGY AND GENOMIC MEDICINE Specimen Urine Performing Organization Address City/[facility] Phone Number [facility] DEPARTMENT OF PATHOLOGY AND [address] [place], [place] [phone] [facility] Gram stain (07/11/2017 1:57 AM) Gram stain result Many WBC's [facility] DEPARTMENT OF PATHOLOGY Many Gram positive cocci in clusters AND GENOMIC MEDICINE Comment: Specimen Information Specimen Source: Urine Specimen Site: Random void Specimen Urine - Random void Performing Organization Address City/[facility] Phone Number [facility] DEPARTMENT OF PATHOLOGY AND [address] [place] [phone] [facility] Urine culture (07/11/2017 1:57 AM) Urine culture isolate Staphylococcus aureus [facility] DEPARTMENT OF 10-5 cfu/ml PATHOLOGY AND [...] mcg/mL: Susceptible Performing Organization Address [facility] Phone Number [facility] DEPARTMENT OF PATHOLOGY AND [address] [place], [place] [phone] [facility] MEDICINE XR Knee 1 Or 2 Vw Right (07/06/2017 2:34 AM) Narrative Performed At EXAM:XR KNEE 1 OR 2 VW RIGHT [facility] CLINICAL HISTORY:RECENT TRAUMAKNEE COMPARISON:None. IMPRESSION: 1.No evidence of acute displaced right knee fracture or dislocation. No significant joint effusion. Question of mild medial soft tissue swelling. [facility]-[id number] Procedure Note Interface, Radiology Results Incoming - 07/06/2017 2:38 AM CDT EXAM: XR KNEE 1 OR 2 VW RIGHT CLINICAL HISTORY: RECENT TRAUMA KNEE COMPARISON: None. IMPRESSION: 1. No evidence of acute displaced right knee fracture or dislocation. No significant joint effusion. Question of mild medial soft tissue swelling. [facility]-[id number] Performing Organization Address [facility] Phone Number [facility] [address] [place] [address] after 01/08/2017
--- OUTSIDE RECORDS SUMMARY | 2018-01-09 03:41 | XMS REPORT ---
:1970 [facility] Address [address] [place] [address] Care Team Providers Name Role Phone UNKNOWN, REFFERING Primary Care Provider Unavailable Problems This patient has no known problems. Allergies, Adverse Reactions, Alerts This patient has no known allergies or adverse reactions. Medications This patient has no known medications. Encounters Start End Encounter Admission Attending Care Care Encounter Date/Time Date/Time Type Type Clinicians Facility Department ID 2017-07-02 2017-07-02 Emergency E [facility] MED [id number] 08:16:00 08:16:00
--- OUTSIDE RECORDS SUMMARY | 2018-01-09 03:41 | XMS REPORT | Clinical Summary ---
:1970 Author Organization [facility] Address [address] [place] [address] Phone Care Team Providers Name Role Phone [...] Dx);Nausea;Acute constipation;Acute superficial gastritis without hemorrhage after 01/08/2017 Social History Tobacco Use Types [...] Not on file Results Not on fileafter 01/08/2017
--- NOTE | 2018-01-09 05:04 | ER ---
Nurse's Notes [facility] Name: Dayami Espinosa Age: 47 yrs Sex: Female : 1970 Arrival Date: 01/09/2018 Time: 03:41 Bed 17 Private MD: Diagnosis: Encounter for general adult medical examination without abnormal findings Presentation: 01/09 03:52 Presenting complaint: Patient states: right ankle pain X2 hours. Transition of care: ak1 patient was not received from another setting of care. Onset of symptoms was January 09, 2018. Risk Assessment: Do you want to hurt yourself or someone else? Patient reports no desire to harm self or others. Initial Sepsis Screen: Does the patient meet any 2 criteria? No. Patient's initial sepsis screen is negative. Does the patient have a suspected source of infection? No. Patient's initial sepsis screen is negative. Care prior to arrival: None. 03:52 Method Of Arrival: Ambulatory ak1 03:52 Acuity: JAZMIN 5 ak1 Triage Assessment: 03:54 General: Appears in no apparent distress. Behavior is calm, cooperative. Pain: ak1 Complains of pain in right lateral malleolus and right medial malleolus. EENT: No signs and/or symptoms were reported regarding the EENT system. Neuro: No deficits noted. Cardiovascular: No deficits noted. Respiratory: No deficits noted. GI: No signs and/or symptoms were reported involving the gastrointestinal system. : No signs and/or symptoms were reported regarding the genitourinary system. Derm: No signs and/or symptoms reported regarding the dermatologic system. Musculoskeletal: Range of motion: intact in all extremities. 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 - Social history:: Smoking status: Patient uses tobacco products, smokes one pack cigarettes per day. - Ebola Screening: : No symptoms or risks identified at this time. Screenin:57 Abuse screen: Denies threats or abuse. Denies injuries from another. Nutritional ak1 screening: No deficits noted. Tuberculosis screening: No symptoms or risk factors identified. Fall Risk None identified. Vital Signs: 03:54 BP 118 / 85; Pulse 79; Resp 18; Temp 98.2(O); Pulse Ox 100% on R/A; Weight 47.63 kg ak1 (R); Height 5 ft. 3 in. (160.02 cm) (R); Pain 8/10; 03:54 Body Mass Index 18.60 (47.63 kg, 160.02 cm) ak1 ED Course: 03:41 Patient arrived in ED. do 03:51 Marcia Maciel, RN is Primary Nurse. ak1 03:52 Triage completed. ak1 03:54 Arm band placed on Patient placed in an exam room, on a stretcher, on pulse oximetry, ak1 Patient notified of wait time. 03:57 Patient has correct armband on for positive identification. Bed in low position. Call ak1 light in reach. Side rails up X 1. Door closed. Warm blanket given. 04:26 Isai Isabel MD is Attending Physician. tw4 05:19 No provider procedures requiring assistance completed. Patient did not have IV access ak1 during this emergency room visit. Administered Medications: No medications were administered Outcome: 05:03 Discharge ordered by . tw4 05:18 Medical screen evaluation completed per provider. Patient declined treatment. ak1 05:19 Patient left the ED. ak1 Signatures: Marcia Maciel RN RN ak1 Nathaly Aldridge Terrence, MD MD tw4
--- NOTE | 2018-01-09 05:04 | EDPHYS ---
Physician Documentation [facility] Name: Dayami Espinosa Age: 47 yrs Sex: Female : 1970 Arrival Date: 01/09/2018 Time: 03:41 Bed 17 Private MD: ED Physician Isai Isabel HPI: 01/09 04:26 This 47 yrs old Female presents to ER via Ambulatory with complaints of Ankle tw4 Pain. 04:26 The patient presents with pain, that is chronic. The complaints affect the right ankle. tw4 Onset: The symptoms/episode began/occurred today. Context: The problem was sustained at home. Associated signs and symptoms: The patient has no apparent associated signs or symptoms. Modifying factors: The symptoms are alleviated by nothing, the symptoms are aggravated by nothing. Severity of symptoms: At their worst the symptoms were moderate, in the emergency department the symptoms are unchanged. The patient has not experienced similar symptoms in the past. 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 - Social history:: Smoking status: Patient uses tobacco products, smokes one pack cigarettes per day. - Ebola Screening: : No symptoms or risks identified at this time. ROS: 04:26 Constitutional: Negative for fever, chills, and weight loss, Cardiovascular: Negative tw4 for chest pain, palpitations, and edema, Respiratory: Negative for shortness of breath, cough, wheezing, and pleuritic chest pain, Abdomen/GI: Negative for abdominal pain, nausea, vomiting, diarrhea, and constipation, Skin: Negative for injury, rash, and discoloration, Neuro: Negative for headache, weakness, numbness, tingling, and seizure. 04:26 MS/extremity: Positive for pain. Exam: 04:26 Constitutional: This is a well developed, well nourished patient who is awake, alert, tw4 and in no acute distress. Head/Face: Normocephalic, atraumatic. Chest/axilla: Normal chest wall appearance and motion. Nontender with no deformity. No lesions are appreciated. Cardiovascular: Regular rate and rhythm with a normal S1 and S2. No gallops, murmurs, or rubs. Normal PMI, no JVD. No pulse deficits. Respiratory: Lungs have equal breath sounds bilaterally, clear to auscultation and percussion. No rales, rhonchi or wheezes noted. No increased work of breathing, no retractions or nasal flaring. Abdomen/GI: Soft, non-tender, with normal bowel sounds. No distension or tympany. No guarding or rebound. No evidence of tenderness throughout. Neuro: Awake and alert, GCS 15, oriented to person, place, time, and situation. Cranial nerves II-XII grossly intact. Motor strength 5/5 in all extremities. Sensory grossly intact. Cerebellar exam normal. Normal gait. Psych: Awake, alert, with orientation to person, place and time. Behavior, mood, and affect are within normal limits. 04:26 Musculoskeletal/extremity: Extremities: noted in the right medial malleolus: Vital Signs: 03:54 BP 118 / 85; Pulse 79; Resp 18; Temp 98.2(O); Pulse Ox 100% on R/A; Weight 47.63 kg ak1 (R); Height 5 ft. 3 in. (160.02 cm) (R); Pain 8/10; 03:54 Body Mass Index 18.60 (47.63 kg, 160.02 cm) ak1 MDM: 04:26 Patient medically screened. tw4 04:51 Differential diagnosis: sprain, arthritis, gout. Data reviewed: vital signs, nurses tw4 notes. Medical screen evaluation completed. [facility] emergency medical condition absent. Administered Medications: No medications were administered Disposition: 04:51 MSE. tw4 05:04 MSE. tw4 Disposition: 01/09/18 05:03 Discharged to Home. Impression: Encounter for general adult medical examination without abnormal findings. - Condition is Stable. - Discharge Instructions: Medical Screening Exam. - Medication Reconciliation Form, Thank You Letter, Antibiotic Education, Prescription Opioid Use form. - Follow up: Private Physician; When: Upon discharge from the Emergency Department; Reason: Recheck today's complaints, Continuance of care. - Problem is an ongoing problem. - Symptoms are unchanged. Signatures: Marcia Maciel RN RN ak1 Isai Isabel MD MD tw4 Corrections: (The following items were deleted from the chart) 05:19 05:03 01/09/2018 05:03 Discharged to Home. Impression: Encounter for general adult ak1 medical examination without abnormal findings. Condition is Stable. Forms are Medication Reconciliation Form, Thank You Letter, Antibiotic Education, Prescription Opioid Use. Follow up: Private Physician; When: Upon discharge from the Emergency Department; Reason: Recheck today's complaints, Continuance of care. Problem is an ongoing problem. Symptoms are unchanged. tw4
== END 2018-01-09 05:19 | disposition home or self-care (01) ==
LOC: ER 03:38
DX: Z00.00 Encounter for general adult medical examination without abnormal findings (principal); F31.70 Bipolar disorder, currently in remission, most recent episode unspecified; F17.210 Nicotine dependence, cigarettes, uncomplicated; Z88.1 Allergy status to other antibiotic agents; Z88.8 Allergy status to other drugs, medicaments and biological substances
CPT/HCPCS: 99282

== ENCOUNTER 2018-01-09 22:47 | Emergency (ER) | payer SELFPAY ==
--- OUTSIDE RECORDS SUMMARY | 2018-01-09 22:49 | XMS REPORT | Clinical Summary ---
:1970 Author Organization [facility] Address [address] [place] [address] Phone Care Team Providers Name Role Phone [...]
--- OUTSIDE RECORDS SUMMARY | 2018-01-09 22:49 | XMS REPORT | Clinical Summary ---
:1970 Author Organization [facility] Address [address] [place] [address] Care Team Providers Name Role Phone Asked, [...] Narrative Performed At CT [facility] CLINICAL INDICATION:llq abd pain TECHNIQUE: Multidetector CT [...] is of unclear etiology and clinical significance. [facility]-[id number] Procedure Note Interface, Radiology Results Incoming - [...] is of unclear etiology and clinical significance. [facility]-[id number] Performing Organization Address City/[facility]/Zipcode Phone Number [facility] [address] [place] [address] hCG qualitative, urine screen (07/11/2017 2:29 AM) hCG qualitative, urine NegativeComment: [facility] DEPARTMENT OF Sensitivity of HCG test: 25 PATHOLOGY AND GENOMIC mIU/mL MEDICINE Specimen Urine Performing Organization Address City/[facility] Phone Number [facility] DEPARTMENT OF PATHOLOGY AND [address] [place] [phone] GENOMIC MEDICINE Urinalysis screen and microscopy, with reflex to culture (07/11/2017 1:57 AM) Specimen site Random void [facility] DEPARTMENT OF PATHOLOGY AND GENOMIC MEDICINE Color, UA Red [facility] DEPARTMENT OF PATHOLOGY AND GENOMIC MEDICINE Appearance, UA Cloudy [facility] DEPARTMENT OF PATHOLOGY AND GENOMIC MEDICINE Specific gravity, UA 1.018 1.001 - 1.035 [facility] DEPARTMENT OF PATHOLOGY AND GENOMIC MEDICINE pH, UA 6.0 5.0 - 8.5 [facility] DEPARTMENT OF PATHOLOGY AND GENOMIC MEDICINE Protein, UA 1+ (A) Negative [facility] DEPARTMENT OF PATHOLOGY AND GENOMIC MEDICINE Glucose, UA Negative Negative [facility] DEPARTMENT OF PATHOLOGY AND GENOMIC MEDICINE Ketones, UA Negative Negative [facility] DEPARTMENT OF PATHOLOGY AND GENOMIC MEDICINE Bilirubin, UA Negative Negative [facility] DEPARTMENT OF PATHOLOGY AND GENOMIC MEDICINE Blood, UA Moderate (A) Negative [facility] DEPARTMENT OF PATHOLOGY AND GENOMIC MEDICINE Nitrite, UA Positive (A) Negative [facility] DEPARTMENT OF PATHOLOGY AND GENOMIC MEDICINE Urobilinogen, UA 2.0 (A) <2.0 [facility] DEPARTMENT OF PATHOLOGY AND GENOMIC MEDICINE Leukocyte esterase, UA Large (A) Negative [facility] DEPARTMENT OF PATHOLOGY AND GENOMIC MEDICINE Epithelial cells, UA 3 /HPF [facility] DEPARTMENT OF PATHOLOGY AND GENOMIC MEDICINE WBC, UA >180 (H) 0 - 4 /HPF [facility] DEPARTMENT OF PATHOLOGY AND GENOMIC MEDICINE RBC, UA 7 (H) 0 - 5 /HPF [facility] DEPARTMENT OF PATHOLOGY AND GENOMIC MEDICINE Bacteria, UA Many (A) None seen [facility] DEPARTMENT OF PATHOLOGY AND GENOMIC MEDICINE Yeast, UA None seen [facility] DEPARTMENT OF PATHOLOGY AND GENOMIC MEDICINE Yeast with pseudohyphae, UA None seen [facility] DEPARTMENT OF PATHOLOGY AND GENOMIC MEDICINE Specimen Urine Performing Organization Address City/[facility] Phone Number [facility] DEPARTMENT OF PATHOLOGY AND [address] [place], [place] [phone] [facility] Gram stain (07/11/2017 1:57 AM) Gram stain result Many WBC's [facility] DEPARTMENT OF PATHOLOGY Many Gram positive cocci in clusters AND GENOMIC MEDICINE Comment: Specimen Information Specimen Source: Urine Specimen Site: Random void Specimen Urine - Random void Performing Organization Address City/[facility] Phone Number [facility] DEPARTMENT OF PATHOLOGY AND [address] [place] [phone] [facility] Urine culture (07/11/2017 1:57 AM) Urine culture isolate Staphylococcus aureus [facility] DEPARTMENT OF 10-5 cfu/ml PATHOLOGY AND GENOMIC [...] mcg/mL: Susceptible Performing Organization Address [facility] Phone Number [facility] DEPARTMENT OF PATHOLOGY AND [address] [place], [place] [phone] [facility] MEDICINE XR Knee 1 Or 2 Vw Right (07/06/2017 2:34 AM) Narrative Performed At EXAM:XR KNEE 1 OR 2 VW RIGHT [facility] CLINICAL HISTORY:RECENT TRAUMAKNEE COMPARISON:None. IMPRESSION: 1.No evidence of acute displaced right knee fracture or dislocation. No significant joint effusion. Question of mild medial soft tissue swelling. [facility]-[id number] Procedure Note Interface, Radiology Results Incoming - 07/06/2017 2:38 AM CDT EXAM: XR KNEE 1 OR 2 VW RIGHT CLINICAL HISTORY: RECENT TRAUMA KNEE COMPARISON: None. IMPRESSION: 1. No evidence of acute displaced right knee fracture or dislocation. No significant joint effusion. Question of mild medial soft tissue swelling. [facility]-[id number] Performing Organization Address [facility] Phone Number [facility] [address] [place] [address] after 01/08/2017
--- OUTSIDE RECORDS SUMMARY | 2018-01-09 22:49 | XMS REPORT ---
:1970 [facility] Address [address] [place] [address] [address] [place] [address] Care Team Providers Name Role Phone UNKNOWN, REFFERING Primary Care Provider Unavailable Problems This patient has no known problems. Allergies, Adverse Reactions, Alerts This patient has no known allergies or adverse reactions. Medications This patient has no known medications. Encounters Start End Encounter Admission Attending Care Care Encounter Date/Time Date/Time Type Type Clinicians Facility Department ID 2017-07-02 2017-07-02 Emergency E [facility] MED [id number] 08:16:00 08:16:00
--- NOTE | 2018-01-10 00:42 | ER ---
Nurse's Notes [facility] Name: Dayami Espinosa Age: 47 yrs Sex: Female : 1970 Arrival Date: 01/09/2018 Time: 22:50 Bed 9 Private MD: Diagnosis: Encounter for screening, unspecified Presentation: 01/09 23:10 Presenting complaint: Patient states: Seen here for toothache, states pain is worse lp1 today; States she is arranging to see dentist this week. Transition of care: patient was not received from another setting of care. Onset of symptoms was January 09, 2018. Risk Assessment: Do you want to hurt yourself or someone else? Patient reports no desire to harm self or others. Initial Sepsis Screen: Does the patient meet any 2 criteria? No. Patient's initial sepsis screen is negative. Does the patient have a suspected source of infection? No. Patient's initial sepsis screen is negative. Care prior to arrival: None. 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 - Social history:: Smoking status: Patient uses tobacco products, smokes one pack cigarettes per day. - Ebola Screening: : No symptoms or risks identified at this time. Screenin:12 Abuse screen: Denies threats or abuse. Denies injuries from another. Nutritional lp1 screening: No deficits noted. Tuberculosis screening: No symptoms or risk factors identified. Fall Risk None identified. Assessment: 01/10 00:02 General: Appears in no apparent distress. slender, Behavior is calm, cooperative. Pain: bb Complains of pain in mouth. Neuro: Level of Consciousness is awake, alert, obeys commands, Oriented to person, place, time, situation. Cardiovascular: No deficits noted. Respiratory: Respiratory effort is even, unlabored. GI: Reports nausea. : No signs and/or symptoms were reported regarding the genitourinary system. EENT: Poor dentition noted. Derm: Skin is pink, warm \T\ dry. Musculoskeletal: Circulation, motion, and sensation intact. 00:54 Reassessment: No changes from previously documented assessment. Patient is alert, bb oriented x 3, equal unlabored respirations, skin warm/dry/pink. pt verbalized understanding of and agrees to plan of care discharge instructions given pt ambulated with steady gait to exit. Vital Signs: 01/09 23:08 BP 106 / 70; Pulse 90; Resp 18; Temp 98.2(TE); Pulse Ox 98% on R/A; Weight 47.63 kg; lp1 Height 5 ft. 3 in. (160.02 cm); Pain 8/10; 23:08 Body Mass Index 18.60 (47.63 kg, 160.02 cm) lp1 ED Course: 22:50 Patient arrived in ED. ds1 23:11 Triage completed. lp1 23:11 Arm band placed on right wrist. lp1 01/10 00:02 Belen Estrada, RN is Primary Nurse. bb 00:02 Patient has correct armband on for positive identification. Bed in low position. Call bb light in reach. 00:11 Zarina Nava FNP-C [facility]. snw 00:11 Darrell Mc MD is Attending Physician. snw 00:55 No provider procedures requiring assistance completed. Patient did not have IV access bb during this emergency room visit. 00:58 Primary Nurse role handed off by Belen Estrada RN bb Administered Medications: No medications were administered Outcome: 00:41 Discharge ordered by . snw 00:55 Discharged to home ambulatory. bb 00:55 Condition: stable 00:55 Discharge instructions given to patient, Instructed on discharge instructions, follow up and referral plans. Demonstrated understanding of instructions, follow-up care. 00:55 Patient left the ED. bb 01:03 Patient left the ED. bb Signatures: Zarina Nava FNP-C AUTOMOBILE RADIATOR MECHANIC-Csnw Marjorie Caldwell ds1 Belen Estrada RN RN bb Patrizia Vincent RN RN lp1 Corrections: (The following items were deleted from the chart) 01/09 23:16 23:08 Pulse 90bpm; Resp 18bpm; Pulse Ox 98% RA; Temp 98.2F Temporal; 47.63 kg; Height 5 lp1 ft. 3 in.; BMI: 18.6; Pain 8/10; lp1
--- NOTE | 2018-01-10 00:42 | EDPHYS ---
Physician Documentation [facility] Name: Dayami Espinosa Age: 47 yrs Sex: Female : 1970 Arrival Date: 01/09/2018 Time: 22:50 Bed 9 Private MD: ED Physician Darrell Mc HPI: 01/10 00:45 This 47 yrs old Female presents to ER via Ambulatory with complaints of snw Toothache. 00:45 The problem is located in the mouth. Onset: The symptoms/episode began/occurred snw gradually. Duration: The symptoms are continuous. Associated signs and symptoms: The patient has no apparent associated signs or symptoms. Severity of symptoms: At their worst the symptoms were moderate. The patient has experienced similar episodes in the past, chronically. The patient has been recently seen by a physician: The patient has been recently seen at the [facility] Emergency Department, pt was here 01/03/18 and rec'd abx and pain meds for same c/o, pt was here last pm for ankle pain and screened (MSE), pt sleeping on stretcher on my arrival and states tooth was hurting but doesn't hurt anymore. . CLINICAL NURSING INTERN: 01/09 23:12 LMP 12/08/2017 lp1 Historical: - Allergies: 23:12 Amoxicillin; lp1 23:12 Pseudoephedrine; lp1 - Home Meds: 23:12 Depakote 250 mg Oral TbEC 1 tab 2 times per day for Bipolar Disorder in Remission lp1 [Active]; - PMHx: 23:12 Anemia; Bipolar disorder; UTI; lp1 - PSHx: 23:12 brain surgery; lp1 - Immunization history:: Adult Immunizations up to date. - Social history:: Smoking status: Patient uses tobacco products, smokes one pack cigarettes per day. - Ebola Screening: : No symptoms or risks identified at this time. ROS: 01/10 00:44 Constitutional: Negative for fever, chills, and weight loss, Eyes: Negative for injury, snw pain, redness, and discharge, Neck: Negative for injury, pain, and swelling, Cardiovascular: Negative for chest pain, palpitations, and edema, Respiratory: Negative for shortness of breath, cough, wheezing, and pleuritic chest pain, Abdomen/GI: Negative for abdominal pain, nausea, vomiting, diarrhea, and constipation, Back: Negative for injury and pain, : Negative for injury, bleeding, discharge, and swelling, MS/Extremity: Negative for injury and deformity, Skin: Negative for injury, rash, and discoloration, Neuro: Negative for headache, weakness, numbness, tingling, and seizure. ENT: Positive for dental pain. Exam: 00:43 Constitutional: This is a well developed, well nourished patient who is awake, alert, snw and in no acute distress. Head/Face: Normocephalic, atraumatic. Eyes: Pupils equal round and reactive to light, extra-ocular motions intact. Lids and lashes normal. Conjunctiva and sclera are non-icteric and not injected. Cornea within normal limits. Periorbital areas with no swelling, redness, or edema. ENT: Nares patent. No nasal discharge, no septal abnormalities noted. Tympanic membranes are normal and external auditory canals are clear. Oropharynx with no redness, mild swelling, many missing teeth, no masses, exudates, or evidence of obstruction, uvula midline. Mucous membranes moist. Neck: Trachea midline, no thyromegaly or masses palpated, and no cervical lymphadenopathy. Supple, full range of motion without nuchal rigidity, or vertebral point tenderness. No Meningismus. Chest/axilla: Normal chest wall appearance and motion. Nontender with no deformity. No lesions are appreciated. Cardiovascular: Regular rate and rhythm with a normal S1 and S2. No gallops, murmurs, or rubs. Normal PMI, no JVD. No pulse deficits. Respiratory: Lungs have equal breath sounds bilaterally, clear to auscultation and percussion. No rales, rhonchi or wheezes noted. No increased work of breathing, no retractions or nasal flaring. Abdomen/GI: Soft, non-tender, with normal bowel sounds. No distension or tympany. No guarding or rebound. No evidence of tenderness throughout. Back: No spinal tenderness. No costovertebral tenderness. Full range of motion. Skin: Warm, dry with normal turgor. Normal color with no rashes, no lesions, and no evidence of cellulitis. MS/ Extremity: Pulses equal, no cyanosis. Neurovascular intact. Full, normal range of motion. Neuro: Awake and alert, GCS 15, oriented to person, place, time, and situation. Cranial nerves II-XII grossly intact. Motor strength 5/5 in all extremities. Sensory grossly intact. Cerebellar exam normal. Normal gait. Vital Signs: 01/09 23:08 BP 106 / 70; Pulse 90; Resp 18; Temp 98.2(TE); Pulse Ox 98% on R/A; Weight 47.63 kg; lp1 Height 5 ft. 3 in. (160.02 cm); Pain 8/10; 23:08 Body Mass Index 18.60 (47.63 kg, 160.02 cm) lp1 MDM: 01/10 00:31 Patient medically screened. snw 00:44 Data reviewed: vital signs, nurses notes. Data interpreted: Pulse oximetry: on room air snw is 98 %. Interpretation: normal. Counseling: I had a detailed discussion with the patient and/or guardian regarding: the historical points, exam findings, and any diagnostic results supporting the discharge/admit diagnosis, the need for outpatient follow up, to return to the emergency department if symptoms worsen or persist or if there are any questions or concerns that arise at home. Special discussion: Based on the history and exam findings, there is no indication for further emergent testing or inpatient evaluation. I discussed with the patient/guardian the need to see a dentist for further evaluation of the symptoms. Administered Medications: No medications were administered Disposition: 07:29 Co-signature as Attending Physician, Darrell Mc MD I agree with the assessment and sybil plan of care. Disposition: 01/10/18 00:41 Discharged to Home. Impression: Encounter for screening, unspecified. - Condition is Stable. - Discharge Instructions: Dental Caries, Adult. - Medication Reconciliation Form, Thank You Letter, Antibiotic Education, Prescription Opioid Use form. - Follow up: Private Physician; When: As needed; Reason: Recheck today's complaints, Continuance of care, Re-evaluation by your physician. - Notes: Pt rec'd pain medications and antibiotics for dental pain/caries 01/03/18 in this ED. Please continue as directed Signatures: Darrell Mc MD MD cha Therrien, Shelly, PHARMACEUTICAL OPERATOR-C PHARMACEUTICAL OPERATOR-Csnw Belen Estrada, RN RN bb Patrizia Vincent, BENI RN lp1 Corrections: (The following items were deleted from the chart) 00:55 00:41 01/10/2018 00:41 Discharged to Home. Impression: Encounter for screening, bb unspecified. Condition is Stable. Forms are Medication Reconciliation Form, Thank You Letter, Antibiotic Education, Prescription Opioid Use. Follow up: Private Physician; When: As needed; Reason: Recheck today's complaints, Continuance of care, Re-evaluation by your physician. kenton 01:03 00:55 01/10/2018 00:41 Discharged to Home. Impression: Encounter for screening, bb unspecified. Condition is Stable. Discharge Instructions: Dental Caries, Adult. Forms are Medication Reconciliation Form, Thank You Letter, Antibiotic Education, Prescription Opioid Use. Follow up: Private Physician; When: As needed; Reason: Recheck today's complaints, Continuance of care, Re-evaluation by your physician. bb
== END 2018-01-10 01:03 | disposition home or self-care (01) ==
LOC: ER 22:47
DX: Z13.9 Encounter for screening, unspecified (principal); F17.210 Nicotine dependence, cigarettes, uncomplicated; F31.70 Bipolar disorder, currently in remission, most recent episode unspecified; Z88.1 Allergy status to other antibiotic agents; Z88.8 Allergy status to other drugs, medicaments and biological substances
CPT/HCPCS: 99281

== ENCOUNTER 2018-01-14 03:02 | Emergency (ER) | payer SELFPAY ==
--- OUTSIDE RECORDS SUMMARY | 2018-01-14 03:04 | XMS REPORT ---
:1970 [facility] Address [address] [place] [address] Care Team Providers Name Role Phone UNKNOWN, REFFERING Primary Care Provider Unavailable Problems This patient has no known problems. Allergies, Adverse Reactions, Alerts This patient has no known allergies or adverse reactions. Medications This patient has no known medications. Encounters Start End Encounter Admission Attending Care Care Encounter Date/Time Date/Time Type Type Clinicians Facility Department ID 2017-07-02 2017-07-02 Emergency E [facility] [id number] 08:16:00 08:16:00
--- OUTSIDE RECORDS SUMMARY | 2018-01-14 03:04 | XMS REPORT | Clinical Summary ---
:1970 Author Organization [facility] Address [address] [place] [address] Phone Care Team Providers Name Role Phone [...] Dx);Nausea;Acute constipation;Acute superficial gastritis without hemorrhage after 01/13/2017 Social History Tobacco Use Types Packs/Day Years [...] Not on file Results Not on fileafter 01/13/2017
--- OUTSIDE RECORDS SUMMARY | 2018-01-14 03:04 | XMS REPORT | Clinical Summary ---
:1970 Author Organization [facility] Address [address] [place] [address] Care Team Providers Name Role Phone Asked, [...] right knee MD Luisito (Primary Dx) after 01/13/2017 Social History Tobacco Use Types [...] procedure are in the results section. after 01/13/[address] Renal Stone Protocol (07/11/2017 2:53 AM) Narrative Performed At CT RENAL STONE PROTOCOL [facility] CLINICAL INDICATION:llq abd pain TECHNIQUE: [...] is of unclear etiology and clinical significance. [facility]-[id number] Procedure Note Interface, Radiology Results Incoming - [...] is of unclear etiology and clinical significance. [facility]-[id number] Performing Organization Address City/[facility]/Zipcode Phone Number [facility] [address] [place] [address] hCG qualitative, urine screen (07/11/2017 2:29 AM) hCG qualitative, urine NegativeComment: [facility] DEPARTMENT OF Sensitivity of HCG test: 25 PATHOLOGY AND GENOMIC mIU/mL MEDICINE Specimen Urine Performing Organization Address City/[facility] Phone Number [facility] DEPARTMENT OF PATHOLOGY AND [address] [place] [phone] GENOMIC MEDICINE Urinalysis screen and microscopy, with reflex to culture (07/11/2017 1:57 AM) Specimen site Random void [facility] DEPARTMENT OF PATHOLOGY AND GENOMIC MEDICINE Color, UA Red [facility] DEPARTMENT OF PATHOLOGY AND GENOMIC MEDICINE Appearance, UA Cloudy [facility] DEPARTMENT OF PATHOLOGY AND GENOMIC MEDICINE Specific gravity, UA 1.018 1.001 - 1.035 [facility] DEPARTMENT OF PATHOLOGY AND GENOMIC MEDICINE pH, UA 6.0 5.0 - 8.5 [facility] DEPARTMENT OF PATHOLOGY AND GENOMIC MEDICINE Protein, UA 1+ (A) Negative [facility] DEPARTMENT OF PATHOLOGY AND GENOMIC MEDICINE Glucose, UA Negative Negative [facility] DEPARTMENT OF PATHOLOGY AND GENOMIC MEDICINE Ketones, UA Negative Negative [facility] DEPARTMENT OF PATHOLOGY AND GENOMIC MEDICINE Bilirubin, UA Negative Negative [facility] DEPARTMENT OF PATHOLOGY AND GENOMIC MEDICINE Blood, UA Moderate (A) Negative [facility] DEPARTMENT OF PATHOLOGY AND GENOMIC MEDICINE Nitrite, UA Positive (A) Negative [facility] DEPARTMENT OF PATHOLOGY AND GENOMIC MEDICINE Urobilinogen, UA 2.0 (A) <2.0 [facility] DEPARTMENT OF PATHOLOGY AND GENOMIC MEDICINE Leukocyte esterase, UA Large (A) Negative [facility] DEPARTMENT OF PATHOLOGY AND GENOMIC MEDICINE Epithelial cells, UA 3 /HPF [facility] DEPARTMENT OF PATHOLOGY AND GENOMIC MEDICINE WBC, UA >180 (H) 0 - 4 /HPF [facility] DEPARTMENT OF PATHOLOGY AND GENOMIC MEDICINE RBC, UA 7 (H) 0 - 5 /HPF [facility] DEPARTMENT OF PATHOLOGY AND GENOMIC MEDICINE Bacteria, UA Many (A) None seen [facility] DEPARTMENT OF PATHOLOGY AND GENOMIC MEDICINE Yeast, UA None seen [facility] DEPARTMENT OF PATHOLOGY AND GENOMIC MEDICINE Yeast with pseudohyphae, UA None seen [facility] DEPARTMENT OF PATHOLOGY AND GENOMIC MEDICINE Specimen Urine Performing Organization Address City/[facility] Phone [facility] DEPARTMENT OF PATHOLOGY AND [address] [place], [place] [id number] [facility] Gram stain (07/11/2017 1:57 AM) Gram stain result Many WBC's [facility] DEPARTMENT OF PATHOLOGY Many Gram positive cocci in clusters AND GENOMIC MEDICINE Comment: Specimen Information Specimen Source: Urine Specimen Site: Random void Specimen Urine - Random void Performing Organization Address City/[facility] Phone Number [facility] DEPARTMENT OF PATHOLOGY AND [address] [place] [phone] [facility] Urine culture (07/11/2017 1:57 AM) Urine culture isolate Staphylococcus aureus [facility] DEPARTMENT OF 10-5 cfu/ml PATHOLOGY AND [...] RAH 1 mcg/mL: Susceptible Performing Organization Address [facility] Phone Number [facility] DEPARTMENT OF PATHOLOGY AND [address] [place] [phone] [facility] MEDICINE XR Knee 1 Or 2 Vw Right (07/06/2017 2:34 AM) Narrative Performed At EXAM:XR KNEE 1 OR 2 VW RIGHT [facility] CLINICAL HISTORY:RECENT TRAUMAKNEE COMPARISON:None. IMPRESSION: 1.No evidence of acute displaced right knee fracture or dislocation. No significant joint effusion. Question of mild medial soft tissue swelling. [facility]-[id number] Procedure Note Interface, Radiology Results Incoming - 07/06/2017 2:38 AM CDT EXAM: XR KNEE 1 OR 2 VW RIGHT CLINICAL HISTORY: RECENT TRAUMA KNEE COMPARISON: None. IMPRESSION: 1. No evidence of acute displaced right knee fracture or dislocation. No significant joint effusion. Question of mild medial soft tissue swelling. [facility]-[id number] Performing Organization Address [facility] Phone Number [facility] [address] [place] [address] after 01/13/2017
--- NOTE | 2018-01-14 04:48 | ER ---
Nurse's Notes [facility] Name: Dayami Espinosa Age: 47 yrs Sex: Female : 1970 Arrival Date: 01/14/2018 Time: 03:07 Bed 19 Private MD: Diagnosis: Left upper gum infection Presentation: 01/14 03:08 Presenting complaint: EMS states: Tone up for patient complaining of difficult seing in ao the left eye. Patient also reports a tooth abscess on the same side. Patient report dizziness and pain the the legs. Transition of care: patient was not received from another setting of care. Onset of symptoms was January 14, 2018 at 02:00. Risk Assessment: Do you want to hurt yourself or someone else? Patient reports no desire to harm self or others. Initial Sepsis Screen: Does the patient meet any 2 criteria? No. Patient's initial sepsis screen is negative. Does the patient have a suspected source of infection? No. Patient's initial sepsis screen is negative. Care prior to arrival: None. 03:08 Method Of Arrival: EMS: [facility] ao 03:08 Acuity: JZAMIN 3 ao Triage Assessment: 03:15 General: Appears in no apparent distress. comfortable, Behavior is calm, cooperative, cc3 appropriate for age. Pain: Complains of pain in bilateral legs. EENT: Reports loss of vision on the left eye at 0200H this morning but now patient said she can see on her both eyes. Neuro: Level of Consciousness is awake, alert, obeys commands, Oriented to person, place, time, situation, Appropriate for age. Cardiovascular: Denies chest pain. Respiratory: Airway is patent Respiratory effort is even, unlabored, Respiratory pattern is regular, symmetrical. GI: Abdomen is round non-distended. : No signs and/or symptoms were reported regarding the genitourinary system. Derm: No signs and/or symptoms reported regarding the dermatologic system. Musculoskeletal: Circulation, motion, and sensation intact. Range of motion: intact in all extremities, Reports pain in legs. CHANGE ANALYST: 03:13 LMP 01/02/2018 ao Historical: - Allergies: 03:12 Amoxicillin; ao 03:12 Pseudoephedrine; ao - Home Meds: 03:12 Depakote 250 mg Oral TbEC 1 tab 2 times per day for Bipolar Disorder in Remission ao [Active]; - PMHx: 03:12 Anemia; Bipolar disorder; UTI; ao - PSHx: 03:12 None; ao - Immunization history:: Adult Immunizations unknown. - Social history:: Smoking status: Patient uses tobacco products, smokes one pack cigarettes per day. Patient/guardian denies using alcohol, street drugs. - Ebola Screening: : Patient negative for fever greater than or equal to 101.5 degrees Fahrenheit, and additional compatible Ebola Virus Disease symptoms Patient denies exposure to infectious person Patient denies travel to an Ebola-affected area in the 21 days before illness onset. - Family history:: not pertinent. - Hospitalizations: : No recent hospitalization is reported. Screenin:15 Abuse screen: Denies threats or abuse. Denies injuries from another. Nutritional cc3 screening: No deficits noted. Tuberculosis screening: No symptoms or risk factors identified. Fall Risk Ambulatory Aid- None/Bed Rest/Nurse Assist (0 pts). Gait- Normal/Bed Rest/Wheelchair (0 pts) Mental Status- Oriented to own ability (0 pts). Assessment: 03:15 General: see triage assessment. cc3 04:45 Reassessment: Patient appears in no apparent distress at this time. Patient and/or cc3 family updated on plan of care and expected duration. Pain level reassessed. Patient is alert, oriented x 3, equal unlabored respirations, skin warm/dry/pink. 05:00 Reassessment: Patient appears in no apparent distress at this time. Patient and/or cc3 family updated on plan of care and expected duration. Pain level reassessed. Patient is alert, oriented x 3, equal unlabored respirations, skin warm/dry/pink. Patient discharged home by Dr. Esquivel with prescription given. No IV cannula in situ. Discharge instructions given to patient. 05:20 Reassessment: Patient left ER vitally stable and ambulatory. cc3 Vital Signs: 03:13 BP 119 / 97; Pulse 91; Resp 18; Temp 98.1(O); Pulse Ox 99% on R/A; Weight 61.23 kg (R); ao Height 5 ft. 0 in. (152.40 cm) (R); Pain 8/10; 04:45 BP 96 / 60; Pulse 73; Resp 14 S; Pulse Ox 97% on R/A; cc3 05:05 BP 103 / 65; Pulse 71; Resp 16 S; Pulse Ox 97% on R/A; cc3 03:13 Body Mass Index 26.37 (61.23 kg, 152.40 cm) ao ED Course: 03:07 Patient arrived in ED. ao 03:11 Triage completed. ao 03:14 Clinton Esquivel MD is Attending Physician. wa 03:14 Arm band placed on right wrist. Patient placed in an exam room, on a stretcher, on ao pulse oximetry, Patient notified of wait time. 03:15 Patient has correct armband on for positive identification. Bed in low position. Call cc3 light in reach. Side rails up X 1. cafeteria monitor on. Pulse ox on. NIBP on. 03:36 Mita Hassan is Primary Nurse. cc3 05:00 No provider procedures requiring assistance completed. Patient did not have IV access cc3 during this emergency room visit. Administered Medications: 05:07 Not Given (Patient Refused): Tylenol 1000 mg PO once cc3 05:07 Not Given (Patient Refused): Motrin 600 mg PO once cc3 Outcome: 04:47 Discharge ordered by . ia 05:00 Discharged to home ambulatory. cc3 05:00 Condition: stable 05:00 Discharge instructions given to patient, Instructed on discharge instructions, follow up and referral plans. medication usage, Demonstrated understanding of instructions, follow-up care, medications, Prescriptions given X 2. 05:21 Patient left the ED. cc3 Signatures: Chago Selby, RN RN Clinton Warren MD MD wa Cordel, Charlene cc3 Corrections: (The following items were deleted from the chart) 03:42 03:15 Pain: Denies pain. cc3 cc3 03:42 03:15 Musculoskeletal: Circulation, motion, and sensation intact. Range of motion: cc3 intact in all extremities, Reports pain in leg cc3
--- NOTE | 2018-01-14 04:48 | EDPHYS ---
Physician Documentation [facility] Name: Dayami Espinosa Age: 47 yrs Sex: Female : 1970 Arrival Date: 01/14/2018 Time: 03:07 Bed 19 Private MD: ED Physician Clinton Esquivel HPI: 01/14 04:39 This 47 yrs old Female presents to ER via EMS with complaints of toothache. wa 04:39 The patient presents with pain. The problem is located in the left upper gum. Onset: wa The symptoms/episode began/occurred 4 week(s) ago. Duration: The symptoms are continuous, and are steadily getting worse. Modifying factors: The symptoms are alleviated by nothing, the symptoms are aggravated by nothing. Associated signs and symptoms: Pertinent positives: redness in area, swelling, facial, Pertinent negatives: chills, fever, inability to eat. Severity of symptoms: At their worst the symptoms were moderate, in the emergency department the symptoms are actually worse, mildly. The patient has experienced similar episodes in the past, a few times. The patient has been recently seen by a physician: this ER. [employer]CIAL [employer] INTERN: 03:13 LMP 01/02/2018 ao Historical: - Allergies: 03:12 Amoxicillin; ao 03:12 Pseudoephedrine; ao - Home Meds: 03:12 Depakote 250 mg Oral TbEC 1 tab 2 times per day for Bipolar Disorder in Remission ao [Active]; - PMHx: 03:12 Anemia; Bipolar disorder; UTI; ao - PSHx: 03:12 None; ao - Immunization history:: Adult Immunizations unknown. - Social history:: Smoking status: Patient uses tobacco products, smokes one pack cigarettes per day. Patient/guardian denies using alcohol, street drugs. - Ebola Screening: : Patient negative for fever greater than or equal to 101.5 degrees Fahrenheit, and additional compatible Ebola Virus Disease symptoms Patient denies exposure to infectious person Patient denies travel to an Ebola-affected area in the 21 days before illness onset. - Family history:: not pertinent. - Hospitalizations: : No recent hospitalization is reported. ROS: 04:41 Constitutional: Negative for fever, chills, and weight loss, Eyes: Negative for injury, wa pain, redness, and discharge, Neck: Negative for injury, pain, and swelling, Cardiovascular: Negative for chest pain, palpitations, and edema, Respiratory: Negative for shortness of breath, cough, wheezing, and pleuritic chest pain, Abdomen/GI: Negative for abdominal pain, nausea, vomiting, diarrhea, and constipation, Back: Negative for injury and pain, : Negative for injury, bleeding, discharge, and swelling, MS/Extremity: Negative for injury and deformity, Skin: Negative for injury, rash, and discoloration, Neuro: Negative for headache, weakness, numbness, tingling, and seizure, Psych: Negative for depression, anxiety, suicide ideation, homicidal ideation, and hallucinations. 04:41 ENT: Positive for dental pain. 04:41 All other systems are negative. Exam: 04:42 Constitutional: This is a well developed, well nourished patient who is awake, alert, wa and in no acute distress. Eyes: Pupils equal round and reactive to light, extra-ocular motions intact. Lids and lashes normal. Conjunctiva and sclera are non-icteric and not injected. Cornea within normal limits. Periorbital areas with no swelling, redness, or edema. Neck: Trachea midline, no thyromegaly or masses palpated, and no cervical lymphadenopathy. Supple, full range of motion without nuchal rigidity, or vertebral point tenderness. No Meningismus. Chest/axilla: Normal chest wall appearance and motion. Nontender with no deformity. No lesions are appreciated. Cardiovascular: Regular rate and rhythm with a normal S1 and S2. No gallops, murmurs, or rubs. Normal PMI, no JVD. No pulse deficits. Respiratory: Lungs have equal breath sounds bilaterally, clear to auscultation and percussion. No rales, rhonchi or wheezes noted. No increased work of breathing, no retractions or nasal flaring. Abdomen/GI: Soft, non-tender, with normal bowel sounds. No distension or tympany. No guarding or rebound. No evidence of tenderness throughout. Back: No spinal tenderness. No costovertebral tenderness. Full range of motion. Skin: Warm, dry with normal turgor. Normal color with no rashes, no lesions, and no evidence of cellulitis. MS/ Extremity: Pulses equal, no cyanosis. Neurovascular intact. Full, normal range of motion. Neuro: Awake and alert, GCS 15, oriented to person, place, time, and situation. Cranial nerves II-XII grossly intact. Motor strength 5/5 in all extremities. Sensory grossly intact. Cerebellar exam normal. Normal gait. Psych: Awake, alert, with orientation to person, place and time. Behavior, mood, and affect are within normal limits. 04:42 Head/face: Noted is tenderness, of the Left upper gum. 04:42 ENT: Dental exam: dental caries, gum swelling, that is mild, specifically in the Left upper. Vital Signs: 03:13 BP 119 / 97; Pulse 91; Resp 18; Temp 98.1(O); Pulse Ox 99% on R/A; Weight 61.23 kg (R); ao Height 5 ft. 0 in. (152.40 cm) (R); Pain 8/10; 04:45 BP 96 / 60; Pulse 73; Resp 14 S; Pulse Ox 97% on R/A; cc3 05:05 BP 103 / 65; Pulse 71; Resp 16 S; Pulse Ox 97% on R/A; cc3 03:13 Body Mass Index 26.37 (61.23 kg, 152.40 cm) ao MDM: 03:14 Patient medically screened. mi 04:45 Differential diagnosis: dental caries, gingivitis, gingivostomatitis. Data reviewed: mi vital signs, nurses notes. Special discussion: no distinct abscess noted. will treat with pain meds and abx. Note: pt denies vision loss to be. eye exam wnl at my encounter. Administered Medications: 05:07 Not Given (Patient Refused): Tylenol 1000 mg PO once cc3 05:07 Not Given (Patient Refused): Motrin 600 mg PO once cc3 Disposition: 01/14/18 04:47 Discharged to Home. Impression: Left upper gum infection. - Condition is Stable. - Discharge Instructions: Gingivitis, [id number]. - Prescriptions for Clindamycin HCl 300 mg Oral Capsule - take 1 capsule by ORAL route every 8 hours for 7 days; 21 capsule. Ibuprofen 600 mg Oral Tablet - take 1 tablet by ORAL route every 6 hours As needed take with food; 30 tablet. - Medication Reconciliation Form, Thank You Letter, Antibiotic Education, Prescription Opioid Use form. - Follow up: Private Physician; When: 2 - 3 days; Reason: Recheck today's complaints. - Problem is an ongoing problem. - Symptoms have improved. - Notes: take antibiotics as prescribed. follow up with your dentist as discussed for further evaluation Signatures: Chago Selby, RN RN Clinton Warren MD MD wa Cordel, Charlene cc3 Corrections: (The following items were deleted from the chart) 05:21 04:47 01/14/2018 04:47 Discharged to Home. Impression: Left upper gum infection. cc3 Condition is Stable. Forms are Medication Reconciliation Form, Thank You Letter, Antibiotic Education, Prescription Opioid Use. Follow up: Private Physician; When: 2 - 3 days; Reason: Recheck today's complaints. Problem is an ongoing problem. Symptoms have improved. david
[2018-01-14] MEDS ORDERED: IBUPROFEN 400 MG TAB ONE (05:03)
[2018-01-14] MEDS ORDERED: IBUPROFEN 200 MG TAB PO ONE (05:04)
[2018-01-14] MEDS ORDERED: ACETAMINOPHEN 500 MG TAB ONE (05:04)
== END 2018-01-14 05:21 | disposition home or self-care (01) ==
LOC: ER 03:02
DX: K05.10 Chronic gingivitis, plaque induced (principal); F31.9 Bipolar disorder, unspecified; Z88.1 Allergy status to other antibiotic agents
CPT/HCPCS: 99284

== ENCOUNTER 2018-01-15 22:13 | Emergency (ER) | payer SELFPAY ==
--- OUTSIDE RECORDS SUMMARY | 2018-01-15 22:15 | XMS REPORT ---
:1970 [facility] Address [address] [place] [address] Care Team Providers Name Role Phone UNKNOWN, REFFERING Primary Care Provider Unavailable Problems This patient has no known problems. Allergies, Adverse Reactions, Alerts This patient has no known allergies or adverse reactions. Medications This patient has no known medications. Encounters Start End Encounter Admission Attending Care Care Encounter Date/Time Date/Time Type Type Clinicians Facility Department ID 2017-07-02 2017-07-02 Emergency E [facility] MED [id number] 08:16:00 08:16:00
--- OUTSIDE RECORDS SUMMARY | 2018-01-15 22:15 | XMS REPORT | Clinical Summary ---
:1970 Author Organization [facility] Address [address] [place] [address] Phone Care Team Providers Name Role Phone [...] Dx);Nausea;Acute constipation;Acute superficial gastritis without hemorrhage after 01/14/2017 Social History Tobacco Use Types Packs/Day Years [...] Not on file Results Not on fileafter 01/14/2017
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
--- NOTE | 2018-01-15 22:35 | EDPHYS ---
Physician Documentation [facility] Name: Dayami Espinosa Age: 47 yrs Sex: Female : 1970 Arrival Date: 01/15/2018 Time: 22:23 Bed 24 Private MD: ED Physician Oliver Kaye HPI: 01/15 22:33 This 47 yrs old Female presents to ER via EMS with complaints of Dental pain. pm1 22:33 The patient presents with pain. pm1 22:33 The problem is located in the upper left cuspid. Onset: The symptoms/episode pm1 began/occurred today. Duration: The symptoms are continuous. Modifying factors: The symptoms are alleviated by nothing, the symptoms are aggravated by nothing. Associated signs and symptoms: Pertinent positives: pain, Pertinent negatives: chills, dysphagia, fever, inability to eat. The patient has experienced similar episodes in the past, multiple times, and the symptoms today are exactly the same. Patient called EMS with complaints of dental pain. Patient has been seen in the ER for the same complaint on 01/04, 01/10, and 01/14. Patient given prescription of clindamycin on 01/14. 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 - Social history:: Smoking status: unknown. - Ebola Screening: : No symptoms or risks identified at this time. ROS: 22:33 Constitutional: Negative for fever, chills, and weight loss, Eyes: Negative for injury, pm1 pain, redness, and discharge, Neck: Negative for injury, pain, and swelling, Cardiovascular: Negative for chest pain, palpitations, and edema. 22:33 Respiratory: Negative for shortness of breath, cough, wheezing, and pleuritic chest pain, Abdomen/GI: Negative for abdominal pain, nausea, vomiting, diarrhea, and constipation, Back: Negative for injury and pain, : Negative for injury, bleeding, discharge, and swelling, MS/Extremity: Negative for injury and deformity, Skin: Negative for injury, rash, and discoloration, Neuro: Negative for headache, weakness, numbness, tingling, and seizure. 22:33 ENT: Positive for dental pain, Negative for sore throat, difficulty swallowing, difficulty handling secretions, hoarseness. Exam: 22:33 Constitutional: This is a well developed, well nourished patient who is awake, alert, pm1 and in no acute distress. Head/Face: Normocephalic, atraumatic. Eyes: Pupils equal round and reactive to light, extra-ocular motions intact. Lids and lashes normal. Conjunctiva and sclera are non-icteric and not injected. Cornea within normal limits. Periorbital areas with no swelling, redness, or edema. 22:33 Neck: Trachea midline, no thyromegaly or masses palpated, and no cervical lymphadenopathy. Supple, full range of motion without nuchal rigidity, or vertebral point tenderness. No Meningismus. Chest/axilla: Normal chest wall appearance and motion. Nontender with no deformity. No lesions are appreciated. Cardiovascular: Regular rate and rhythm with a normal S1 and S2. No gallops, murmurs, or rubs. Normal PMI, no JVD. No pulse deficits. Respiratory: Lungs have equal breath sounds bilaterally, clear to auscultation and percussion. No rales, rhonchi or wheezes noted. No increased work of breathing, no retractions or nasal flaring. Abdomen/GI: Soft, non-tender, with normal bowel sounds. No distension or tympany. No guarding or rebound. No evidence of tenderness throughout. Back: No spinal tenderness. No costovertebral tenderness. Full range of motion. Skin: Warm, dry with normal turgor. Normal color with no rashes, no lesions, and no evidence of cellulitis. MS/ Extremity: Pulses equal, no cyanosis. Neurovascular intact. Full, normal range of motion. 22:33 ENT: External ear(s): are unremarkable, Ear canal(s): are normal, TM's: are normal, Nose: is normal, Mouth: is normal, Dental exam: dental caries, diffusely, missing teeth, diffusely, pain, that is mild, specifically in the upper left cuspid (#11). 22:33 Neuro: Orientation: is normal, Motor: is normal, moves all fours. Vital Signs: 23:01 BP 107 / 76; Pulse 73; Resp 18; Pulse Ox 97% on R/A; tl3 MDM: 22:33 Counseling: I had a detailed discussion with the patient and/or guardian regarding: the pm1 historical points, exam findings, and any diagnostic results supporting the discharge/admit diagnosis, the need for outpatient follow up, for definitive care, a dentist, to return to the emergency department if symptoms worsen or persist or if there are any questions or concerns that arise at home, Patient instructed to continue taking the antibiotics that were prescribed yesterday. 22:34 Patient medically screened. pm1 22:34 Data reviewed: vital signs. Data interpreted: Pulse oximetry: on room air is 97 %. pm1 Interpretation: normal. Administered Medications: No medications were administered Disposition: 01/15/18 22:34 Discharged to Home. Impression: Dental pain. - Condition is Stable. - Discharge Instructions: Dental Pain. - Medication Reconciliation Form, Thank You Letter, Antibiotic Education form. - Follow up: Emergency Department; When: As needed; Reason: Worsening of condition. Follow up: Private Physician; When: 2 - 3 days; Reason: Recheck today's complaints, Continuance of care, Re-evaluation by your physician. - Problem is new. - Symptoms have improved. Addendum: 01/17/2018 04:08 Co-signature as Attending Physician, Oliver Kaye MD. g s Signatures: Ming Fontenot, CAKE WASHER CAKE WASHER pm1 Oliver Kaye MD MD Desirae Tavera RN RN tl3 Nataliya Erazo mb4 Corrections: (The following items were deleted from the chart) 01/15 23:03 22:34 01/15/2018 22:34 Discharged to Home. Impression: Dental pain. Condition is tl3 Stable. Forms are Medication Reconciliation Form, Thank You Letter, Antibiotic Education, Prescription Opioid Use. Follow up: Emergency Department; When: As needed; Reason: Worsening of condition. Follow up: Private Physician; When: 2 - 3 days; Reason: Recheck today's complaints, Continuance of care, Re-evaluation by your physician. Problem is new. Symptoms have improved. pm1 01/16 00:16 10/14 23:03 01/15/2018 22:34 Discharged to Home. Impression: Dental pain. Condition is mb4 Stable. Discharge Instructions: Dental Pain. Forms are Medication Reconciliation Form, Thank You Letter, Antibiotic Education. Follow up: Emergency Department; When: As needed; Reason: Worsening of condition. Follow up: Private Physician; When: 2 - 3 days; Reason: Recheck today's complaints, Continuance of care, Re-evaluation by your physician. Problem is new. Symptoms have improved. tl3
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
== END 2018-01-16 00:16 | disposition home or self-care (01) ==
LOC: ER 22:13
DX: K08.89 Other specified disorders of teeth and supporting structures (principal); F31.70 Bipolar disorder, currently in remission, most recent episode unspecified; Z88.1 Allergy status to other antibiotic agents; Z88.8 Allergy status to other drugs, medicaments and biological substances
CPT/HCPCS: 99282

== ENCOUNTER 2018-01-17 06:05 | Emergency (ER) | payer SELFPAY ==
--- OUTSIDE RECORDS SUMMARY | 2018-01-17 06:07 | XMS REPORT | Clinical Summary ---
:1970 Author Organization [facility] Address [address] [place] [address] Phone Care Team Providers Name Role Phone [...] Dx);Nausea;Acute constipation;Acute superficial gastritis without hemorrhage after 01/16/2017 Social History Tobacco Use Types Packs/Day Years [...] Not on file Results Not on fileafter 01/16/2017
--- OUTSIDE RECORDS SUMMARY | 2018-01-17 06:07 | XMS REPORT ---
:1970 [facility] Address [address] [place] [address] Care Team Providers Name Role Phone UNKNOWN, REFFERING Primary Care Provider Unavailable Problems This patient has no known problems. Allergies, Adverse Reactions, Alerts This patient has no known allergies or adverse reactions. Medications This patient has no known medications. Encounters Start End Encounter Admission Attending Care Care Encounter Date/Time Date/Time Type Type Clinicians Facility Department ID 2017-07-02 2017-07-02 Emergency E [facility] MED [id number] 08:16:00 08:16:00
--- OUTSIDE RECORDS SUMMARY | 2018-01-17 06:07 | XMS REPORT | Clinical Summary ---
:1970 Author Organization [facility] Address [address] [place] [address] Care Team Providers Name Role Phone Asked, [...] right knee MD Luisito (Primary Dx) after 01/16/2017 Social History Tobacco Use Types [...] procedure are in the results section. after 01/16/[address] Renal Stone Protocol (07/11/2017 2:53 AM) Narrative Performed At CT RENAL STONE PROTOCOL [facility] CLINICAL INDICATION:llq abd pain TECHNIQUE: Multidetector CT [...] of unclear etiology and clinical significance. [facility]-[id number] Procedure Note Interface, Radiology Results Incoming - [...] of unclear etiology and clinical significance. [facility]-[id number] Performing Organization Address City/[facility]/Zipcode Phone Number [facility] [address] [place] [address] hCG qualitative, urine screen (07/11/2017 2:29 AM) hCG qualitative, urine NegativeComment: [facility] DEPARTMENT OF Sensitivity of HCG test: 25 PATHOLOGY AND GENOMIC mIU/mL MEDICINE Specimen Urine Performing Organization Address City/[facility] Phone Number [facility] DEPARTMENT OF PATHOLOGY AND [address] [place] [phone] GENOMIC MEDICINE Urinalysis screen and microscopy, with reflex to culture (07/11/2017 1:57 AM) Specimen site Random void [facility] DEPARTMENT OF PATHOLOGY AND GENOMIC MEDICINE Color, UA Red [facility] DEPARTMENT OF PATHOLOGY AND GENOMIC MEDICINE Appearance, UA Cloudy [facility] DEPARTMENT OF PATHOLOGY AND GENOMIC MEDICINE Specific gravity, UA 1.018 1.001 - 1.035 [facility] DEPARTMENT OF PATHOLOGY AND GENOMIC MEDICINE pH, UA 6.0 5.0 - 8.5 [facility] DEPARTMENT OF PATHOLOGY AND GENOMIC MEDICINE Protein, UA 1+ (A) Negative [facility] DEPARTMENT OF PATHOLOGY AND GENOMIC MEDICINE Glucose, UA Negative Negative [facility] DEPARTMENT OF PATHOLOGY AND GENOMIC MEDICINE Ketones, UA Negative Negative [facility] DEPARTMENT OF PATHOLOGY AND GENOMIC MEDICINE Bilirubin, UA Negative Negative [facility] DEPARTMENT OF PATHOLOGY AND GENOMIC MEDICINE Blood, UA Moderate (A) Negative [facility] DEPARTMENT OF PATHOLOGY AND GENOMIC MEDICINE Nitrite, UA Positive (A) Negative [facility] DEPARTMENT OF PATHOLOGY AND GENOMIC MEDICINE Urobilinogen, UA 2.0 (A) <2.0 [facility] DEPARTMENT OF PATHOLOGY AND GENOMIC MEDICINE Leukocyte esterase, UA Large (A) Negative [facility] DEPARTMENT OF PATHOLOGY AND GENOMIC MEDICINE Epithelial cells, UA 3 /HPF [facility] DEPARTMENT OF PATHOLOGY AND GENOMIC MEDICINE WBC, UA >180 (H) 0 - 4 /HPF [facility] DEPARTMENT OF PATHOLOGY AND GENOMIC MEDICINE RBC, UA 7 (H) 0 - 5 /HPF [facility] DEPARTMENT OF PATHOLOGY AND GENOMIC MEDICINE Bacteria, UA Many (A) None seen [facility] DEPARTMENT OF PATHOLOGY AND GENOMIC MEDICINE Yeast, UA None seen [facility] DEPARTMENT OF PATHOLOGY AND GENOMIC MEDICINE Yeast with pseudohyphae, UA None seen [facility] DEPARTMENT OF PATHOLOGY AND GENOMIC MEDICINE Specimen Urine Performing Organization Address City/[facility] Phone Number [facility] DEPARTMENT OF PATHOLOGY AND [address] [place], [place] [phone] [facility] Gram stain (07/11/2017 1:57 AM) Gram stain result Many WBC's [facility] DEPARTMENT OF PATHOLOGY Many Gram positive cocci in clusters AND GENOMIC MEDICINE Comment: Specimen Information Specimen Source: Urine Specimen Site: Random void Specimen Urine - Random void Performing Organization Address City/[facility] Hospitalcop[facility] Phone Number [facility] DEPARTMENT OF PATHOLOGY AND [address] [place] [address] [facility] Urine culture (07/11/2017 1:57 AM) Urine culture isolate Staphylococcus aureus [facility] DEPARTMENT OF 10-5 cfu/ml PATHOLOGY AND [...] RAH 1 mcg/mL: Susceptible Performing Organization Address [facility] Hospital[facility] Phone Number [facility] DEPARTMENT OF PATHOLOGY AND [address] [place], [place] [phone] [facility] MEDICINE XR Knee 1 Or 2 Vw Right (07/06/2017 2:34 AM) Narrative Performed At EXAM:XR KNEE 1 OR 2 VW RIGHT [facility] CLINICAL HISTORY:RECENT TRAUMAKNEE COMPARISON:None. IMPRESSION: 1.No evidence of acute displaced right knee fracture or dislocation. No significant joint effusion. Question of mild medial soft tissue swelling. [facility]-[id number] Procedure Note Interface, Radiology Results Incoming - 07/06/2017 2:38 AM CDT EXAM: XR KNEE 1 OR 2 VW RIGHT CLINICAL HISTORY: RECENT TRAUMA KNEE COMPARISON: None. IMPRESSION: 1. No evidence of acute displaced right knee fracture or dislocation. No significant joint effusion. Question of mild medial soft tissue swelling. [facility]-[id number] Performing Organization Address [facility] Phone Number [facility] [address] [place] [address] after 01/16/2017
--- NOTE | 2018-01-17 06:35 | EDPHYS ---
Physician Documentation [facility] Name: Dayami Espinosa Age: 47 yrs Sex: Female : 1970 Arrival Date: 01/17/2018 Time: 06:09 Bed 6 Private MD: ED Physician Oliver Kaye HPI: 01/17 06:24 This 47 yrs old Female presents to ER via EMS with complaints of Knee Pain, cp Back Pain. 06:24 The patient presents with pain that is chronic, with no known mechanism of injury. The cp symptoms are located in the low back. Onset: The symptoms/episode began/occurred and became worse this morning. Associated signs and symptoms: Pertinent positives: bilateral knee pain, Pertinent negatives: abdominal pain, chest pain, constipation, dysuria, fever, incontinence, numbness, urinary retention, weakness. 06:24 Severity of symptoms: in the emergency department the symptoms are unchanged, despite cp EMS interventions. [facility]: 06:14 LMP 12/2017 ao Historical: - Allergies: 06:14 Amoxicillin; ao 06:14 Pseudoephedrine; ao - Home Meds: 06:14 Depakote 250 mg Oral TbEC 1 tab 2 times per day for Bipolar Disorder in Remission ao [Active]; - PMHx: 06:14 Anemia; Bipolar disorder; UTI; ao - PSHx: 06:14 None; ao - Immunization history:: Adult Immunizations up to date. - Social history:: Smoking status: Patient uses tobacco products, smokes one-half pack cigarettes per day, Patient/guardian denies using alcohol, street drugs. - Ebola Screening: : Patient negative for fever greater than or equal to 101.5 degrees Fahrenheit, and additional compatible Ebola Virus Disease symptoms Patient denies exposure to infectious person Patient denies travel to an Ebola-affected area in the 21 days before illness onset. ROS: 06:29 Eyes: Negative for injury, pain, redness, and discharge. cp 06:29 Constitutional: Negative for body aches, chills, fever, poor PO intake. 06:29 ENT: Negative for drainage from ear(s), ear pain, sore throat, difficulty swallowing, difficulty handling secretions. 06:29 Cardiovascular: Negative for chest pain, edema, palpitations. 06:29 Respiratory: Negative for cough, shortness of breath, wheezing. 06:29 Abdomen/GI: Negative for abdominal pain, nausea, vomiting, and diarrhea, black/tarry stool, rectal bleeding. 06:29 Back: Positive for pain at rest, pain with movement. 06:29 MS/extremity: Positive for pain, of the right knee and left knee, Negative for injury or acute deformity, decreased range of motion, paresthesias. 06:29 Skin: Negative for cellulitis, rash. 06:29 Neuro: Negative for altered mental status, headache, weakness. 06:29 All other systems are negative. Exam: 06:30 Head/Face: Normocephalic, atraumatic. cp 06:30 Constitutional: The patient appears in no acute distress, alert, awake, non-toxic, well developed, well nourished. 06:30 Eyes: Periorbital structures: appear normal, Conjunctiva: normal, no exudate, no injection, Sclera: no appreciated abnormality, Lids and lashes: 06:30 ENT: External ear(s): are unremarkable, Nose: is normal, Mouth: Lips: moist, Oral mucosa: moist, Posterior pharynx: is normal, airway is patent. 06:30 Chest/axilla: Inspection: normal. 06:30 Cardiovascular: Rate: normal. 06:30 Respiratory: the patient does not display signs of respiratory distress, Respirations: normal, no use of accessory muscles, no retractions, no splinting, no tachypnea. 06:30 Abdomen/GI: Exam negative for discomfort, distension, guarding, Inspection: abdomen appears normal. 06:30 Back: pain, that is mild, ROM is normal. 06:30 Neuro: Orientation: to person, place \T\ time. Mentation: lucid, able to follow commands, Motor: moves all fours, strength is normal, Sensation: no obvious gross deficits. Vital Signs: 06:14 BP 125 / 95; Pulse 87; Resp 18; Temp 98.3(O); Pulse Ox 100% on R/A; Weight 54.43 kg ao (R); Height 5 ft. 2 in. (157.48 cm) (R); Pain 5/10; 06:14 Body Mass Index 21.95 (54.43 kg, 157.48 cm) ao MDM: 06:18 Patient medically screened. cp 06:30 Differential diagnosis: Pyelonephritis spinal injury, sprain, Ureterolithiasis UTI. cp 06:33 Data reviewed: vital signs, nurses notes. cp Administered Medications: No medications were administered Disposition: 01/17/18 06:34 Discharged to Home as Medical Screen. Impression: Low back pain, Pain in unspecified knee. - Condition is Stable. - Discharge Instructions: Joint Pain, Back Pain, Adult, Back Exercises, [id number]. - Medication Reconciliation Form, Thank You Letter, Antibiotic Education, Prescription Opioid Use form. - Follow up: Private Physician; When: Today; Reason: Recheck today's complaints. - Problem is chronic. - Symptoms are unchanged. Signatures: Darrell Bardales PA PA cp Ortiz, Alex, RN RN Matt Nguyen RN RN jd3 Corrections: (The following items were deleted from the chart) 06:48 06:34 01/17/2018 06:34 Discharged to Home as Medical Screen. Impression: Low back pain; jd3 Pain in unspecified knee. Condition is Stable. Forms are Medication Reconciliation Form, Thank You Letter, Antibiotic Education, Prescription Opioid Use. Follow up: Private Physician; When: Today; Reason: Recheck today's complaints. Problem is chronic. Symptoms are unchanged. cp
--- NOTE | 2018-01-17 06:35 | ER ---
Nurse's Notes [facility] Name: Dayami Espinosa Age: 47 yrs Sex: Female : 1970 Arrival Date: 01/17/2018 Time: 06:09 Bed 6 Private MD: Diagnosis: Low back pain;Pain in unspecified knee Presentation: 01/17 06:10 Presenting complaint: EMS states: [place] knee pain and back pain. Patient was at the hospital few days ago with abdominal pain and states that she was not seeing by a physician. Transition of care: patient was not received from another setting of care. Onset of symptoms is unknown. Risk Assessment: Do you want to hurt yourself or someone else? Patient reports no desire to harm self or others. Initial Sepsis Screen: Does the patient meet any 2 criteria? No. Patient's initial sepsis screen is negative. Does the patient have a suspected source of infection? No. Patient's initial sepsis screen is negative. Care prior to arrival: Medication(s) given: Tylenol, 1000 mg. 06:10 Method Of Arrival: EMS: [facility] ao 06:10 Acuity: JAZMIN 4 ao [facility]: 06:14 LMP 12/2017 ao Historical: - Allergies: 06:14 Amoxicillin; ao 06:14 Pseudoephedrine; ao - Home Meds: 06:14 Depakote 250 mg Oral TbEC 1 tab 2 times per day for Bipolar Disorder in Remission ao [Active]; - PMHx: 06:14 Anemia; Bipolar disorder; UTI; ao - PSHx: 06:14 None; ao - Immunization history:: Adult Immunizations up to date. - Social history:: Smoking status: Patient uses tobacco products, smokes one-half pack cigarettes per day, Patient/guardian denies using alcohol, street drugs. - Ebola Screening: : Patient negative for fever greater than or equal to 101.5 degrees Fahrenheit, and additional compatible Ebola Virus Disease symptoms Patient denies exposure to infectious person Patient denies travel to an Ebola-affected area in the 21 days before illness onset. Screenin:15 Abuse screen: Denies threats or abuse. Nutritional screening: No deficits noted. jd3 Tuberculosis screening: No symptoms or risk factors identified. Fall Risk Ambulatory Aid- None/Bed Rest/Nurse Assist (0 pts). Gait- Normal/Bed Rest/Wheelchair (0 pts) Mental Status- Oriented to own ability (0 pts). Total Alfred Fall Scale indicates No Risk (0-24 pts). Assessment: 06:12 General: Appears in no apparent distress. uncomfortable, Behavior is calm, cooperative, jd3 appropriate for age. Pain: Complains of pain in back, right knee and left knee Quality of pain is described as aching, Aggravated by increased activity. Neuro: Level of Consciousness is awake, alert, obeys commands, Oriented to person, place, time, situation, Appropriate for age Moves all extremities. Full function. Cardiovascular: Denies chest pain, Capillary refill < 3 seconds Patient's skin is warm and dry. Respiratory: Airway is patent Respiratory effort is even, unlabored, Respiratory pattern is regular, symmetrical, Denies shortness of breath. GI: No signs and/or symptoms were reported involving the gastrointestinal system. : No signs and/or symptoms were reported regarding the genitourinary system. EENT: No signs and/or symptoms were reported regarding the EENT system. Derm: Skin is intact, Skin is dry, Skin is normal, Skin temperature is warm. Musculoskeletal: Circulation, motion, and sensation intact. Range of motion: intact in all extremities. 06:48 Reassessment: Patient appears in no apparent distress at this time. Patient and/or jd3 family updated on plan of care and expected duration. Pain level reassessed. Patient is alert, oriented x 3, equal unlabored respirations, skin warm/dry/pink. reported understanding of discharge instructions. Vital Signs: 06:14 BP 125 / 95; Pulse 87; Resp 18; Temp 98.3(O); Pulse Ox 100% on R/A; Weight 54.43 kg ao (R); Height 5 ft. 2 in. (157.48 cm) (R); Pain 5/10; 06:14 Body Mass Index 21.95 (54.43 kg, 157.48 cm) ao ED Course: 06:09 Patient arrived in ED. ao 06:11 Matt Meraz, RN is Primary Nurse. jd3 06:12 Triage completed. ao 06:12 Arm band placed on right wrist. Patient placed in an exam room, on a stretcher, on ao pulse oximetry, Patient notified of wait time. 06:15 Patient has correct armband on for positive identification. Bed in low position. Call jd3 light in reach. Side rails up X2. 06:15 Patient has correct armband on for positive identification. Pulse ox on. NIBP on. ao 06:17 Darrell Bardales PA is PHCP. cp 06:17 Oliver Kaye MD is Attending Physician. cp 06:46 No provider procedures requiring assistance completed. Patient did not have IV access jd3 during this emergency room visit. Administered Medications: No medications were administered Outcome: 06:34 Discharge ordered by MD. cp 06:47 Medical screen evaluation completed per provider. Patient declined treatment. jd3 06:47 Condition: stable 06:47 Discharge instructions given to patient, Instructed on discharge instructions, follow up and referral plans. Demonstrated understanding of instructions, follow-up care. 06:48 Patient left the ED. jd3 Signatures: Darrell Bardales PA PA cp Ortiz, Alex, RN RN Matt Nguyen RN RN jd3 Corrections: (The following items were deleted from the chart) 06:15 06:12 Neuro: Level of Consciousness is awake, alert, obeys commands, Oriented to jd3 person, place, time, situation, Appropriate for age jd3
== END 2018-01-17 06:48 | disposition home or self-care (01) ==
LOC: ER 06:05
DX: M25.562 Pain in left knee (principal); M25.561 Pain in right knee; F17.210 Nicotine dependence, cigarettes, uncomplicated; F31.9 Bipolar disorder, unspecified; Z88.1 Allergy status to other antibiotic agents; Z88.8 Allergy status to other drugs, medicaments and biological substances
CPT/HCPCS: 99283

== ENCOUNTER 2018-01-31 01:36 | Emergency (ER) | payer SELFPAY ==
--- OUTSIDE RECORDS SUMMARY | 2018-01-31 01:38 | XMS REPORT | Clinical Summary ---
:1970 Author Organization [facility] Address [address] [place] [address] Care Team Providers Name Role Phone Sharpless Primary Care Provider Allergies No Known Allergies Medications Medication Sig Dispensed Refills Start Date End Date Status ondansetron [...] Emergency Emergency Medicine Jonathon Patel abdominal pain ( Primary Dx); MD Dylan Nausea; Acute constipation; Acute superficial gastritis without hemorrhage after 01/30/2017 Social History Tobacco Use Types Packs/Day Years Used Date Current Every Day Smoker Alcohol Use Drinks/Week oz/Week Comments Yes Sex Assigned at Date Recorded Not on file Job Start Date Occupation Industry Not on file Not on file Not on file Travel History Travel Start Travel End No recent travel history available. Last Filed Vital Signs Vital Sign [place] [...] Not on file Results Not on fileafter 01/30/2017
--- OUTSIDE RECORDS SUMMARY | 2018-01-31 01:38 | XMS REPORT | Clinical Summary ---
:1970 Author Organization [facility] Address [address] [place] [address] Care Team Providers Name Role Phone Asked, [...] right knee MD Luisito (Primary Dx) after 01/30/2017 Social History Tobacco Use Types [...] procedure are in the results section. after 01/30/[address] Renal Stone Protocol (07/11/2017 2:53 AM) Narrative Performed At CT RENAL STONE PROTOCOL [facility] CLINICAL INDICATION:llq abd pain TECHNIQUE: [...] is of unclear etiology and clinical significance. [facility]-[id number] Procedure Note Interface, Radiology Results Incoming - [...] is of unclear etiology and clinical significance. [facility]-[id number] Performing Organization Address City/[facility]/Zipcode Phone Number [facility] [address] [place] [address] hCG qualitative, urine screen (07/11/2017 2:29 AM) hCG qualitative, urine NegativeComment: [facility] DEPARTMENT OF Sensitivity of HCG test: 25 PATHOLOGY AND GENOMIC mIU/mL MEDICINE Specimen Urine Performing Organization Address City/[facility] Phone Number [facility] DEPARTMENT OF PATHOLOGY AND [address] [place] [id number] GENOMIC MEDICINE Urinalysis screen and microscopy, with reflex to culture (07/11/2017 1:57 AM) Specimen site Random void [facility] DEPARTMENT OF PATHOLOGY AND GENOMIC MEDICINE Color, UA Red [facility] DEPARTMENT OF PATHOLOGY AND GENOMIC MEDICINE Appearance, UA Cloudy [facility] DEPARTMENT OF PATHOLOGY AND GENOMIC MEDICINE Specific gravity, UA 1.018 1.001 - 1.035 [facility] DEPARTMENT OF PATHOLOGY AND GENOMIC MEDICINE pH, UA 6.0 5.0 - 8.5 [facility] DEPARTMENT OF PATHOLOGY AND GENOMIC MEDICINE Protein, UA 1+ (A) Negative [facility] DEPARTMENT OF PATHOLOGY AND GENOMIC MEDICINE Glucose, UA Negative Negative [facility] DEPARTMENT OF PATHOLOGY AND GENOMIC MEDICINE Ketones, UA Negative Negative [facility] DEPARTMENT OF PATHOLOGY AND GENOMIC MEDICINE Bilirubin, UA Negative Negative [facility] DEPARTMENT OF PATHOLOGY AND GENOMIC MEDICINE Blood, UA Moderate (A) Negative [facility] DEPARTMENT OF PATHOLOGY AND GENOMIC MEDICINE Nitrite, UA Positive (A) Negative [facility] DEPARTMENT OF PATHOLOGY AND GENOMIC MEDICINE Urobilinogen, UA 2.0 (A) <2.0 [facility] DEPARTMENT OF PATHOLOGY AND GENOMIC MEDICINE Leukocyte esterase, UA Large (A) Negative [facility] DEPARTMENT OF PATHOLOGY AND GENOMIC MEDICINE Epithelial cells, UA 3 /HPF [facility] DEPARTMENT OF PATHOLOGY AND GENOMIC MEDICINE WBC, UA >180 (H) 0 - 4 /HPF [facility] DEPARTMENT OF PATHOLOGY AND GENOMIC MEDICINE RBC, UA 7 (H) 0 - 5 /HPF [facility] DEPARTMENT OF PATHOLOGY AND GENOMIC MEDICINE Bacteria, UA Many (A) None seen [facility] DEPARTMENT OF PATHOLOGY AND GENOMIC MEDICINE Yeast, UA None seen [facility] DEPARTMENT OF PATHOLOGY AND GENOMIC MEDICINE Yeast with pseudohyphae, UA None seen [facility] DEPARTMENT OF PATHOLOGY AND GENOMIC MEDICINE Specimen Urine Performing Organization Address City/[facility]ode Phone Number [facility] DEPARTMENT OF PATHOLOGY AND [address] [place], [place] [phone] [facility] Gram stain (07/11/2017 1:57 AM) Gram stain result Many WBC's [facility] DEPARTMENT OF PATHOLOGY Many Gram positive cocci in clusters AND GENOMIC MEDICINE Comment: Specimen Information Specimen Source: Urine Specimen Site: Random void Specimen Urine - Random void Performing Organization Address City/[facility] Phone Number [facility] DEPARTMENT OF PATHOLOGY AND [address] [place] [id number] [facility] Urine culture (07/11/2017 1:57 AM) Urine culture isolate Staphylococcus aureus [facility] DEPARTMENT OF 10-5 cfu/ml PATHOLOGY AND [...] RAH 1 mcg/mL: Susceptible Performing Organization Address [facility] Phone Number [facility] DEPARTMENT OF PATHOLOGY AND [address] [place] [phone] [facility] MEDICINE XR Knee 1 Or 2 Vw Right (07/06/2017 2:34 AM) Narrative Performed At EXAM:XR KNEE 1 OR 2 VW RIGHT [facility] CLINICAL HISTORY:RECENT TRAUMAKNEE COMPARISON:None. IMPRESSION: 1.No evidence of acute displaced right knee fracture or dislocation. No significant joint effusion. Question of mild medial soft tissue swelling. [facility]-[id number] Procedure Note Interface, Radiology Results Incoming - 07/06/2017 2:38 AM CDT EXAM: XR KNEE 1 OR 2 VW RIGHT CLINICAL HISTORY: RECENT TRAUMA KNEE COMPARISON: None. IMPRESSION: 1. No evidence of acute displaced right knee fracture or dislocation. No significant joint effusion. Question of mild medial soft tissue swelling. [facility]-[id number] Performing Organization Address [facility] Phone Number [facility] [address] [place] [address] after 01/30/2017
--- OUTSIDE RECORDS SUMMARY | 2018-01-31 01:38 | XMS REPORT ---
:1970 Author Organization [facility] Address [address] [place] [address] Care Team Providers Name Role Phone UNKNOWN, REFFERING Primary Care Provider Unavailable Problems This patient has no known problems. Allergies, Adverse Reactions, Alerts This patient has no known allergies or adverse reactions. Medications This patient has no known medications. Encounters Start End Encounter Admission Attending Care Care Encounter Date/Time Date/Time Type Type Clinicians Facility Department ID 2017-07-02 2017-07-02 Emergency E [facility] [id number] 08:16:00 08:16:00
[2018-01-31] MEDS ORDERED: NA CHLORIDE 0.9% 1,000 ML ONE (02:03)
[2018-01-31 02:27] LABS: Absolute Lymphocytes (CBC) 2.7 K/uL (0.7-4.9); Absolute Monocytes 0.9 K/uL (0.1-1.3); Absolute Neutrophil 6.2 K/uL (1.8-8.0); Basophils % 0.5 % (0-1.3); Eosinophils % 1.1 % (0-4.4); Hematocrit 35.5 % (36.0-45.0); Lymphocytes % 27.4 % (15.3-44.8); MCH 28.3 pg (27.0-35.0); MCV 84.6 fL (80-100); MPV 8.2 fL (7.6-11.3); Monocytes % 8.7 % (3.3-12.3); RBC Red Blood Cell Count 4.19 M/uL (3.86-4.86)
[2018-01-31 02:33] LABS: BUN Blood Urea Nitrogen 13 mg/dL (7-18); Bicarbonate 27 mmol/L (21-32); Glucose Level 90 mg/dL (74-106); Potassium 3.5 mmol/L (3.5-5.1); Sodium Level 141 mmol/L (136-145)
[2018-01-31 02:49] LABS: Valproic Acid (Depakene) Level < 3.0 ug/mL (50-100)
[2018-01-31] MEDS ORDERED: ONDANSETRON 4 MG/2 ML VIAL ONE (03:01)
[2018-01-31 03:09] LABS: Urine Bacteria <20 /HPF (<20); Urine Culture Reflex Order REFLEXED
--- NOTE | 2018-01-31 03:47 | EDPHYS ---
Physician Documentation [facility] Name: Dayami Espinosa Age: 47 yrs Sex: Female : 1970 Arrival Date: 01/31/2018 Time: 01:40 Bed 8 Private MD: ED Physician Derrek Martines HPI: 01/31 02:01 This 47 yrs old Female presents to ER via EMS with complaints of Dizziness, snw Nausea. 02:01 The patient presents with lightheadedness. Onset: The symptoms/episode began/occurred snw suddenly, yesterday. Context: occurred at a friend's home, occurred while the patient was standing, just prior to the episode the patient experienced no apparent symptoms. Associated signs and symptoms: Pertinent positives: headache. Severity of symptoms: At their worst the symptoms were mild moderate in the emergency department the symptoms are unchanged. Patient's baseline: Neuro: alert and fully oriented, Motor: no deficits, Ambulation: walks without assistance, Speech: normal. The patient has experienced similar episodes in the past. The patient has not recently seen a physician, the patient's primary care provider is Dr. Dr. Gomez. 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 - Social history:: Smoking status: Patient uses tobacco products, smokes one pack cigarettes per day. Patient/guardian denies using alcohol, street drugs. - Ebola Screening: : Patient negative for fever greater than or equal to 101.5 degrees Fahrenheit, and additional compatible Ebola Virus Disease symptoms Patient denies exposure to infectious person Patient denies travel to an Ebola-affected area in the 21 days before illness onset. ROS: 02:04 Constitutional: Negative for fever, chills, and weight loss, ENT: Negative for injury, snw pain, and discharge, Neck: Negative for injury, pain, and swelling, Cardiovascular: Negative for chest pain, palpitations, and edema, Respiratory: Negative for shortness of breath, cough, wheezing, and pleuritic chest pain, Abdomen/GI: Negative for abdominal pain, nausea, vomiting, diarrhea, and constipation, Back: Negative for injury and pain, : Negative for injury, bleeding, discharge, and swelling, MS/Extremity: Negative for injury and deformity, Skin: Negative for injury, rash, and discoloration. 02:04 Eyes: Positive for pain. 02:04 Neuro: Positive for headache, lightheadedness. Exam: 02:03 Constitutional: This is a well developed, well nourished patient who is awake, alert, snw and in no acute distress. 02:03 Eyes: Pupils equal round and reactive to light, extra-ocular motions intact. Lids and lashes normal. Conjunctiva and sclera are non-icteric and not injected. Cornea within normal limits. Periorbital areas with no swelling, redness, or edema. ENT: Nares patent. No nasal discharge, no septal abnormalities noted. Tympanic membranes are normal and external auditory canals are clear. Oropharynx with no redness, swelling, or masses, exudates, or evidence of obstruction, uvula midline. Mucous membranes moist. Multiple discolored and broken teeth at bilateral maxilla Neck: Trachea midline, no thyromegaly or masses palpated, and no cervical lymphadenopathy. Supple, full range of motion without nuchal rigidity, or vertebral point tenderness. No Meningismus. Chest/axilla: Normal chest wall appearance and motion. Nontender with no deformity. No lesions are appreciated. Cardiovascular: Regular rate and rhythm with a normal S1 and S2. No gallops, murmurs, or rubs. Normal PMI, no JVD. No pulse deficits. Respiratory: Lungs have equal breath sounds bilaterally, clear to auscultation and percussion. No rales, rhonchi or wheezes noted. No increased work of breathing, no retractions or nasal flaring. Abdomen/GI: Soft, non-tender, with normal bowel sounds. No distension or tympany. No guarding or rebound. No evidence of tenderness throughout. Back: No spinal tenderness. No costovertebral tenderness. Full range of motion. Skin: Warm, dry with normal turgor. Normal color with no rashes, no lesions, and no evidence of cellulitis. MS/ Extremity: Pulses equal, no cyanosis. Neurovascular intact. Full, normal range of motion. Neuro: Awake and alert, GCS 15, oriented to person, place, time, and situation. Cranial nerves II-XII grossly intact. Motor strength 5/5 in all extremities. Sensory grossly intact. Cerebellar exam normal. Normal gait. Psych: Awake, alert, with orientation to person, place and time. Behavior, mood, and affect are within normal limits. 02:03 Head/face: Noted is tenderness, that is mild, of the left cheek and left eye. Vital Signs: 01:35 BP 129 / 87; Pulse 90; Resp 17; Temp 97.9(O); Pulse Ox 99% on R/A; Weight 46.72 kg; rr5 Height 5 ft. 3 in. (160.02 cm) (R); Pain 7/10; 02:30 BP 119 / 75; Pulse 89; Resp 17; Pulse Ox 100% on R/A; rr5 03:30 BP 121 / 78; Pulse 92; Resp 16; Pulse Ox 99% on R/A; rr5 04:53 BP 119 / 75; Pulse 88; Resp 16; Temp 98.1(O); Pulse Ox 99% on R/A; rr5 01:35 Body Mass Index 18.25 (46.72 kg, 160.02 cm) rr5 MDM: 01:50 Patient medically screened. snw 03:42 Data reviewed: vital signs, nurses notes, lab test result(s), radiologic studies, CT pkl scan, plain films. 01/31 01:49 Order name: Basic Metabolic Panel; Complete Time: 03:19 snw 01/31 01:49 Order name: CBC with Diff; Complete Time: 02:43 snw 01/31 01:49 Order name: Blood Culture Adult (2) snw 01/31 01:49 Order name: Depakote; Complete Time: 03:19 snw 01/31 02:22 Order name: Urine Microscopic Only; Complete Time: 03:19 snw 01/31 02:25 Order name: Urine Dipstick--Ancillary (enter results); Complete Time: 05:35 ms 01/31 01:49 Order name: Labs collected and sent; Complete Time: 02:28 snw 01/31 01:49 Order name: CT Head Brain wo Cont snw 01/31 01:49 Order name: CT Maxillofacial W/cont snw 01/31 02:22 Order name: Urine Dipstick-Ancillary (obtain specimen); Complete Time: 02:28 snw 01/31 02:28 Order name: Urine --Ancillary (enter results); Complete Time: 05:35 ms 01/31 03:10 Order name: Urine Culture EDMS Administered Medications: 02:00 Drug: NS 0.9% 1000 ml Route: IV; Rate: 125 ml/hr; Site: right forearm; rr5 04:28 Follow up: Response: No adverse reaction; IV Status: Completed infusion; Infusion ea continued upon transfer 03:00 Drug: Zofran 4 mg Route: IVP; Site: right antecubital; ea 04:27 Follow up: Response: No adverse reaction; Marked relief of symptoms ea Disposition: 03:42 Co-signature as Attending Physician, Derrek Martines MD. pkl Disposition: 01/31/18 03:46 Transfer ordered to [facility]. Diagnosis is Subacute right frontal subdural hematoma. Multiple facial fractures. - Reason for transfer: Higher level of care. - Accepting physician is Dr. Sanders. - Condition is Stable. - Problem is new. - Symptoms are unchanged. Signatures: Dispatcher [employer] Derrek Allan MD MD pkl Zarina Nava, STOCKROOM KEEPER-C STOCKROOM KEEPER-Csnw Jacquelin Matias, RN RN Brandin Pruitt RN RN rr5 Corrections: (The following items were deleted from the chart) 04:57 03:46 01/31/2018 03:46 Transfer ordered to [facility]. rr5 Diagnosis is Subacute right frontal subdural hematoma. Multiple facial fractures. Reason for transfer: Higher level of care. Accepting physician is Dr. Sanders. Condition is Stable. Problem is new. Symptoms are unchanged. pkl
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
[2018-01-31 04:03] LABS: Urine Blood TRACE (NEG); Urine Glucose NEGATIVE (NEG); Urine Protein 1+ (NEG); Urine pH 8.5 (5.0-7.0)
--- NOTE | 2018-01-31 08:08 | RAD REPORT ---
EXAM DESCRIPTION: CT - Maxillofacial W/Cont - 01/31/2018 5:25 am CLINICAL HISTORY: Facial pain COMPARISON: None TECHNIQUE: Computed axial tomography of the face was obtained. Coronal and sagittal reconstruction w as performed.Prelim report was generated virtual radiologic and prior to dictation All CT scans are performed using dose optimization technique as appropriate and may include automated exposure control or mA/KV adjustment according to patient size. FINDINGS: Nondisplaced fracture involves the left mandibular body. Displaced fracture of the coronoi d process of the left mandible is seen. A nondisplaced fracture of the left mandibular ramus is prese nt. Lucencies surrounding mandibular teeth probably indicate abscesses. Minimally depressed fracture of the left orbital floor. Nondisplaced fracture of the anterior and lat eral left maxillary sinus is seen. Nondisplaced fracture of the left zygoma present. Nondisplaced dashawn al bone fracture is seen. A TMJ dislocation is not noted. The globes are intact. Fluid within the sinuses is not seen. IMPRESSION: Left mandibular and left facial fractures as described. These may be a combination of ac ingris/subacute and chronic and should be correlated clinically
--- NOTE | 2018-01-31 08:34 | RAD REPORT ---
EXAM DESCRIPTION: CT - Head Brain Wo Cont - 01/31/2018 5:24 am CLINICAL HISTORY: Dizziness/prior brain surgery COMPARISON: None. TECHNIQUE: Computed axial tomography of the head was obtained. IV contrast was not requested.Prelim report was generated virtual radiologic and prior to dictation All CT scans are performed using dose optimization technique as appropriate and may include automated exposure control or mA/KV adjustment according to patient size. FINDINGS: Right craniotomy has been performed. 5 centimeter low-density area within the right fronta l lobe has the appearance of cystic encephalomalacia. Along the right frontal convexity is seen inter mediate density fluid collection measuring up to 9 millimeters in thickness. It contains a curvilinea r area of increased density. Low-density within the left temporal lobe probably represents gliosis secondary to an old infarction. Ventricles are normal caliber. Shift of the midline structures 2.5 millimeters to the left is present . Fluid within the sinuses/ mastoids is not seen. IMPRESSION: A right craniotomy with right frontal lobe cystic encephalomalacia. Right subdural fluid collection measuring up to 9 millimeters in thickness contains intermediate dens ity and may represent subacute hematoma. Curvilinear area of increased density which is small within this may represent a small focus of acute blood. Comparison with prior examinations is recommended. Examination was discussed with the emergency room physician Dr Martines 3:11 a.m. January 31, 2018
== END 2018-01-31 04:57 | disposition short-term general hospital (02) ==
LOC: ER 01:36
DX: I62.02 Nontraumatic subacute subdural hemorrhage (principal); S02.92XA Unspecified fracture of facial bones, initial encounter for closed fracture; F31.70 Bipolar disorder, currently in remission, most recent episode unspecified; F17.210 Nicotine dependence, cigarettes, uncomplicated; Z88.1 Allergy status to other antibiotic agents; Z88.8 Allergy status to other drugs, medicaments and biological substances
CPT/HCPCS: 36415; 70450; 70487; 80048; 80164; 81003; 81015; 81025; 85025; 87040; 87086; 87088; 96361; 96374; 99285; J2405; J7030

== ENCOUNTER 2018-04-13 07:12 | Emergency (ER) | payer SELFPAY ==
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
--- OUTSIDE RECORDS SUMMARY | 2018-04-13 07:15 | XMS REPORT | Clinical Summary ---
:1970 Author Organization [facility] Address [address] [place] [address] Care Team Providers Name Role Phone Sharpless [...] constipation; Acute superficial gastritis without hemorrhage after 04/12/2017 Social History Tobacco Use Types [...] Not on file Results Not on fileafter 04/12/2017
--- OUTSIDE RECORDS SUMMARY | 2018-04-13 07:15 | XMS REPORT ---
:1970 [facility] Address [address] [place] [address] Care Team Providers Name Role Phone UNKNOWN, REFFERING Primary Care Provider Unavailable Problems This patient has no known problems. Allergies, Adverse Reactions, Alerts This patient has no known allergies or adverse reactions. Medications This patient has no known medications. Encounters Start End Encounter Admission Attending Care Care Encounter Date/Time Date/Time Type Type Clinicians Facility Department ID 2017-07-02 2017-07-02 Emergency E [facility] [id number] 08:16:00 08:16:00
--- NOTE | 2018-04-13 08:36 | RAD REPORT ---
EXAM DESCRIPTION: CT - Head Brain Wo Cont - 04/13/2018 8:10 am CLINICAL HISTORY: DIZZINESS Headache x2 weeks COMPARISON: Head Brain Wo Cont dated 01/31/2018 TECHNIQUE: All CT scans are performed using dose optimization technique as appropriate and may inclu de automated exposure control or mA/KV adjustment according to patient size. FINDINGS: Again noted is right frontal craniotomy changes with underlying encephalomalacia. There co ntinues to be a small amount of intermediate density fluid with hyperdense components along the right frontal convexity likely representing a small acute on chronic subdural hematoma. The maximum thickn ess of this collection is 7-8 mm, and overall it appears smaller in size relative to the comparative study.No hydrocephalus. No significant midline shift is present. The paranasal sinuses and mastoids are clear. IMPRESSION: Acute on chronic subdural hematoma is again noted along the right frontal convexity at t he site of previous craniotomy and significant underlying encephalomalacia of the right frontal lobe. Overall, the size of this extra-axial collection is smaller than on the comparative study as detail ed above. No midline shift is evident. No hydrocephalus.
--- NOTE | 2018-04-13 08:54 | ER ---
Nurse's Notes [facility] Name: Dayami Espionsa Age: 48 yrs Sex: Female : 1970 Arrival Date: 04/13/2018 Time: 07:13 Bed 20 Private MD: Diagnosis: Headache;Intracranial injury-chronic subdural, with acute hemorrhage Presentation: 04/13 07:13 Presenting complaint: EMS states: HEADACHE x2 WEEK. Transition of care: patient was not bp received from another setting of care. Onset of symptoms is unknown. Risk Assessment: Do you want to hurt yourself or someone else? Patient reports no desire to harm self or others. Initial Sepsis Screen: Does the patient meet any 2 criteria? No. Patient's initial sepsis screen is negative. Does the patient have a suspected source of infection? No. Patient's initial sepsis screen is negative. Care prior to arrival: Medication(s) given: Tylenol, 1000 mg, Glucose check: 109. 07:13 Method Of Arrival: EMS: [facility] bp 07:13 Acuity: JAZMIN 5 bp Triage Assessment: 07:15 Headache History: The patient has had previous headaches and this one is similar to bp previous episodes. General: Appears in no apparent distress. comfortable, Behavior is cooperative, appropriate for age, anxious. Pain: Complains of pain in back of head Pain currently is 7 out of 10 on a pain scale. Pain began 2 WEEKS AGO Also complains of no other associated symptoms. Neuro: Level of Consciousness is awake, alert, obeys commands, Oriented to person, place, time, situation, Appropriate for age. 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 - Social history:: Smoking status: unknown. - Ebola Screening: : Patient negative for fever greater than or equal to 101.5 degrees Fahrenheit, and additional compatible Ebola Virus Disease symptoms Patient denies exposure to infectious person Patient denies travel to an Ebola-affected area in the 21 days before illness onset No symptoms or risks identified at this time. Screenin:15 Abuse screen: Denies threats or abuse. Denies injuries from another. Nutritional bp screening: No deficits noted. Tuberculosis screening: No symptoms or risk factors identified. Fall Risk None identified. Assessment: 07:15 General: SEE TRIAGE NOTE. Pain: Complains of pain in back of head. bp 08:05 Reassessment: PT TO CT. bp 09:25 Reassessment: PT REFUSING FURTHER TREATMENT AND TRANSFER. PT AOx4, AMBULATORY WITHOUT bp ATAXIA. VS STABLE. PT ADVISED TO REMAIN BUT DECLINED, FURTHER ADVISED TO RETURN IF S/S RETURN OR WORSEN. Vital Signs: 07:15 BP 121 / 72; Pulse 67; Resp 14; Temp 97.8; Pulse Ox 99% ; Weight 46.72 kg; Height 5 ft. bp 3 in. (160.02 cm); 08:00 BP 94 / 73; Pulse 68; Resp 16; Pulse Ox 97% ; bp 09:26 BP 97 / 65; Pulse 71; Resp 16; Pulse Ox 97% ; bp 07:15 Body Mass Index 18.25 (46.72 kg, 160.02 cm) bp ED Course: 07:13 Patient arrived in ED. bp 07:14 Triage completed. bp 07:15 Arm band placed on. bp 07:15 Patient has correct armband on for positive identification. Bed in low position. Call bp light in reach. Side rails up X2. 07:17 Darrell Mc MD is Attending Physician. sybil 08:04 Jesus Durant, RN is Primary Nurse. bp 08:07 CT completed. Patient tolerated procedure well. Patient moved to CT via wheelchair. Patient moved back from CT. 08:07 CT Head Brain wo Cont Sent. bp 08:09 CT Head Brain wo Cont In Process Unspecified. EDMS 09:19 XRAY Chest (1 view) In Process Unspecified. EDMS 09:28 No provider procedures requiring assistance completed. Patient did not have IV access bp during this emergency room visit. Administered Medications: No medications were administered Outcome: 08:54 ER care complete, transfer ordered by . sybil 09:29 AMA AMA form signed bp 09:29 Condition: stable 09:29 Instructed on the need for transfer. 09:29 Patient left the ED. bp Signatures: Dispatcher [employer] EDMS Alexandro, Darrell, MD MD sybil Carlson, Silvia sj Carleen, Jesus, RN RN bp
--- NOTE | 2018-04-13 08:54 | EDPHYS ---
Physician Documentation [facility] Name: Dayami Espinosa Age: 48 yrs Sex: Female : 1970 Arrival Date: 04/13/2018 Time: 07:13 Bed 20 Private MD: ED Physician Darrell Mc HPI: 04/13 07:57 This 48 yrs old Female presents to ER via EMS with complaints of Headache. sybil 07:57 The patient complains of pain to the forehead, left side of the back of head, left sybil temporal area, left occipital area, right side of the back of head, right temporal area and right occipital area. The patient describes the headache as aching, constant. Onset: The symptoms/episode began/occurred 2 day(s) ago. Associated signs and symptoms: The patient has no apparent associated signs or symptoms. Severity of symptoms: At its worst the pain was mild, in the emergency department the pain is unchanged. Headache History: Denies prior headaches. The symptoms are alleviated by nothing. the symptoms are aggravated by lights, movement. The patient has experienced similar episodes in the past, several times. 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 - Social history:: Smoking status: unknown. - Ebola Screening: : Patient negative for fever greater than or equal to 101.5 degrees Fahrenheit, and additional compatible Ebola Virus Disease symptoms Patient denies exposure to infectious person Patient denies travel to an Ebola-affected area in the 21 days before illness onset No symptoms or risks identified at this time. ROS: 07:57 Constitutional: Negative for fever, chills, and weight loss, Eyes: Negative for injury, sybil pain, redness, and discharge, ENT: Negative for injury, pain, and discharge, Neck: Negative for injury, pain, and swelling, Cardiovascular: Negative for chest pain, palpitations, and edema, Respiratory: Negative for shortness of breath, cough, wheezing, and pleuritic chest pain, Abdomen/GI: Negative for abdominal pain, nausea, vomiting, diarrhea, and constipation, Back: Negative for injury and pain, : Negative for injury, bleeding, discharge, and swelling, MS/Extremity: Negative for injury and deformity, Skin: Negative for injury, rash, and discoloration, Psych: Negative for depression, anxiety, suicide ideation, homicidal ideation, and hallucinations, Allergy/Immunology: Negative for hives, rash, and allergies, Endocrine: Negative for neck swelling, polydipsia, polyuria, polyphagia, and marked weight changes, Hematologic/Lymphatic: Negative for swollen nodes, abnormal bleeding, and unusual bruising. 07:57 Neuro: Positive for headache. Exam: 07:57 Constitutional: This is a well developed, well nourished patient who is awake, alert, sybil and in no acute distress. Head/Face: Normocephalic, atraumatic. Eyes: Pupils equal round and reactive to light, extra-ocular motions intact. Lids and lashes normal. Conjunctiva and sclera are non-icteric and not injected. Cornea within normal limits. Periorbital areas with no swelling, redness, or edema. ENT: Nares patent. No nasal discharge, no septal abnormalities noted. Tympanic membranes are normal and external auditory canals are clear. Oropharynx with no redness, swelling, or masses, exudates, or evidence of obstruction, uvula midline. Mucous membranes moist. Neck: Trachea midline, no thyromegaly or masses palpated, and no cervical lymphadenopathy. Supple, full range of motion without nuchal rigidity, or vertebral point tenderness. No Meningismus. Chest/axilla: Normal chest wall appearance and motion. Nontender with no deformity. No lesions are appreciated. Cardiovascular: Regular rate and rhythm with a normal S1 and S2. No gallops, murmurs, or rubs. Normal PMI, no JVD. No pulse deficits. Respiratory: Lungs have equal breath sounds bilaterally, clear to auscultation and percussion. No rales, rhonchi or wheezes noted. No increased work of breathing, no retractions or nasal flaring. Abdomen/GI: Soft, non-tender, with normal bowel sounds. No distension or tympany. No guarding or rebound. No evidence of tenderness throughout. Back: No spinal tenderness. No costovertebral tenderness. Full range of motion. Skin: Warm, dry with normal turgor. Normal color with no rashes, no lesions, and no evidence of cellulitis. MS/ Extremity: Pulses equal, no cyanosis. Neurovascular intact. Full, normal range of motion. Neuro: Awake and alert, GCS 15, oriented to person, place, time, and situation. Cranial nerves II-XII grossly intact. Motor strength 5/5 in all extremities. Sensory grossly intact. Cerebellar exam normal. Normal gait. Psych: Awake, alert, with orientation to person, place and time. Behavior, mood, and affect are within normal limits. Vital Signs: 07:15 BP 121 / 72; Pulse 67; Resp 14; Temp 97.8; Pulse Ox 99% ; Weight 46.72 kg; Height 5 ft. bp 3 in. (160.02 cm); 08:00 BP 94 / 73; Pulse 68; Resp 16; Pulse Ox 97% ; bp 09:26 BP 97 / 65; Pulse 71; Resp 16; Pulse Ox 97% ; bp 07:15 Body Mass Index 18.25 (46.72 kg, 160.02 cm) bp MDM: 07:17 Patient medically screened. [facility] 07:57 Data reviewed: vital signs, nurses notes, radiologic studies. 04/13 08:47 Order name: Basic Metabolic Panel 04/13 08:47 Order name: CBC with Diff 04/13 07:57 Order name: CT Head Brain wo Cont; Complete Time: 08:45 04/13 08:47 Order name: XRAY Chest (1 view) 04/13 08:47 Order name: EKG; Complete Time: 08:48 04/13 08:47 Order name: Cardiac monitoring 04/13 08:47 Order name: EKG - Nurse/Tech [facility] 04/13 08:47 Order name: IV Saline Lock 04/13 08:47 Order name: Labs collected and sent 04/13 08:47 Order name: O2 Per Protocol 04/13 08:47 Order name: O2 Sat Monitoring 04/13 08:47 Order name: Urine Dipstick-Ancillary (obtain specimen) 04/13 08:47 Order name: Urine Test (obtain specimen) [facility] Administered Medications: No medications were administered Disposition: 04/13/18 09:24 Patient has left against medical advice. Impression: Headache, Intracranial injury - chronic subdural, with acute hemorrhage. - Patients states they are going to Home. - Condition is Serious. Follow up: Private Physician; When: Upon discharge from the Emergency Department; Reason: Recheck today's complaints, Continuance of care, Re-evaluation by your physician. - Problem is new. - Symptoms are unchanged. Signatures: Dispatcher [employer] Darrell Dia MD MD cha Peltier, Brian, RN RN bp Corrections: (The following items were deleted from the chart) 09:23 08:54 04/13/2018 08:54 Transfer ordered to [facility]. [facility] Diagnosis is Intracranial injury - old, acute on chronic right frontal subdural. Reason for transfer: Higher level of care. Accepting physician is to [facility], neurosurgery. Condition is Fair. Problem is new. Symptoms have improved. [facility] 09:29 09:24 04/13/2018 09:24 Patients has left against medical advice. Impression: Headache; bp Intracranial injury - chronic subdural, with acute hemorrhage. Patient states they are going to Home. Condition is Serious. Follow up: Private Physician; When: Upon discharge from the Emergency Department; Reason: Recheck today's complaints, Continuance of care, Re-evaluation by your physician. Problem is new. Symptoms are unchanged. sybil
--- NOTE | 2018-04-13 09:40 | RAD REPORT ---
EXAM DESCRIPTION: RAD - Chest Single View - 04/13/2018 9:19 am CLINICAL HISTORY: COUGH Chest pain. COMPARISON: Chest Single View dated 10/30/2017; Chest Single View dated 08/28/2017; Abdomen 1 View (KU B) dated 02/20/2017; Abdomen 1 View (KUB) dated 01/19/2017 FINDINGS: Portable technique limits examination quality. The lungs are grossly clear. The heart is normal in size. No displaced fractures. IMPRESSION: No acute intrathoracic process suspected.
[2018-04-13] MEDS ORDERED: NA CHLORIDE 0.9% 1,000 ML ONE (11:13)
--- NOTE | 2018-04-13 12:04 | EKG ---
Test Date: 2018-04-13 Test Time: 09:01:36 Hr Coordinator: TONYA MEASUREMENT RESULTS: Intervals: Rate: 65 WI: 138 QRSD: 78 QT: 436 QTc: 453 Gervais: P: 72 WI: 138 QRS: 86 T: 63 INTERPRETIVE STATEMENTS: Normal sinus rhythm with sinus arrhythmia Normal ECG Compared to ECG 11/05/2017 03:27:47 No significant changes Electronically Signed On 04-13-18 12:02:[address] by Mike Brian
== END 2018-04-13 09:29 | disposition left against medical advice (07) ==
LOC: ER 07:12
DX: I62.03 Nontraumatic chronic subdural hemorrhage (principal); I62.01 Nontraumatic acute subdural hemorrhage; G93.89 Other specified disorders of brain; Z53.29 Procedure and treatment not carried out because of patient's decision for other reasons; F31.70 Bipolar disorder, currently in remission, most recent episode unspecified; Z79.899 Other long term (current) drug therapy
CPT/HCPCS: 70450; 71045; 93005; 99284; J7030

== ENCOUNTER 2018-04-13 09:52 | Emergency (ER) | payer SELFPAY ==
--- OUTSIDE RECORDS SUMMARY | 2018-04-13 09:54 | XMS REPORT ---
:1970 [facility] Address [address] [place] [address] Care Team Providers Name Role Phone UNKNOWN, REFFERING Primary Care Provider Unavailable Problems This patient has no known problems. Allergies, Adverse Reactions, Alerts This patient has no known allergies or adverse reactions. Medications This patient has no known medications. Encounters Start End Encounter Admission Attending Care Care Encounter Date/Time Date/Time Type Type Clinicians Facility Department ID 2017-07-02 2017-07-02 Emergency E [facility] MED [id number] 08:16:00 08:16:00
--- OUTSIDE RECORDS SUMMARY | 2018-04-13 09:54 | XMS REPORT | Clinical Summary ---
:1970 Author Organization [facility] Address [address] [place] [address] Care Team Providers Name Role Phone Sharpless [...]
--- OUTSIDE RECORDS SUMMARY | 2018-04-13 09:54 | XMS REPORT | Clinical Summary ---
:1970 Author Organization [facility] Address [address] [place] [address] Care Team Providers Name Role Phone Asked, [...] unclear etiology and clinical significance. [facility]-[id number] Procedure Note Interface, Radiology Results Incoming - [...] unclear etiology and clinical significance. [facility]-[id number] Performing Organization Address [facility] Phone Number [facility] [address] [place] [address] hCG qualitative, urine screen (07/11/2017 2:29 AM CDT) [facility] qualitative, urine NegativeComment: [facility] DEPARTMENT OF Sensitivity of HCG test: 25 PATHOLOGY AND GENOMIC mIU/mL MEDICINE Specimen Urine Performing Organization Address [facility] Vegas[facility] Phone Number [facility] DEPARTMENT OF PATHOLOGY AND [address] [place] [phone] GENOMIC MEDICINE Urinalysis screen and microscopy, with reflex to culture (07/11/2017 1:57 AM CDT) Specimen site Random void [facility] DEPARTMENT OF PATHOLOGY AND GENOMIC MEDICINE Color, UA Red [facility] DEPARTMENT OF PATHOLOGY AND GENOMIC MEDICINE Appearance, UA Cloudy [facility] DEPARTMENT OF PATHOLOGY AND GENOMIC MEDICINE Specific gravity, UA 1.018 1.001 - 1.035 [facility] DEPARTMENT OF PATHOLOGY AND GENOMIC MEDICINE pH, UA 6.0 5.0 - 8.5 [facility] DEPARTMENT OF PATHOLOGY AND GENOMIC MEDICINE Protein, UA 1+ (A) Negative [facility] DEPARTMENT OF PATHOLOGY AND GENOMIC MEDICINE Glucose, UA Negative Negative [facility] DEPARTMENT OF PATHOLOGY AND GENOMIC MEDICINE Ketones, UA Negative Negative [facility] DEPARTMENT OF PATHOLOGY AND GENOMIC MEDICINE Bilirubin, UA Negative Negative [facility] DEPARTMENT OF PATHOLOGY AND GENOMIC MEDICINE Blood, UA Moderate (A) Negative [facility] DEPARTMENT OF PATHOLOGY AND GENOMIC MEDICINE Nitrite, UA Positive (A) Negative [facility] DEPARTMENT OF PATHOLOGY AND GENOMIC MEDICINE Urobilinogen, UA 2.0 (A) <2.0 [facility] DEPARTMENT OF PATHOLOGY AND GENOMIC MEDICINE Leukocyte esterase, UA Large (A) Negative [facility] DEPARTMENT OF PATHOLOGY AND GENOMIC MEDICINE Epithelial cells, UA 3 /HPF [facility] DEPARTMENT OF PATHOLOGY AND GENOMIC MEDICINE WBC, UA >180 (H) 0 - 4 /HPF [facility] DEPARTMENT OF PATHOLOGY AND GENOMIC MEDICINE RBC, UA 7 (H) 0 - 5 /HPF [facility] DEPARTMENT OF PATHOLOGY AND GENOMIC MEDICINE Bacteria, UA Many (A) None seen [facility] DEPARTMENT OF PATHOLOGY AND GENOMIC MEDICINE Yeast, UA None seen [facility] DEPARTMENT OF PATHOLOGY AND GENOMIC MEDICINE Yeast with pseudohyphae, UA None seen [facility] DEPARTMENT OF PATHOLOGY AND GENOMIC MEDICINE Specimen Urine Performing Organization Address City/[facility] Phone Number [facility] DEPARTMENT OF PATHOLOGY AND [address] [place] [address] Gram stain (07/11/2017 1:57 AM CDT) Gram stain result Many WBC's [facility] DEPARTMENT OF PATHOLOGY Many Gram positive cocci in clusters AND GENOMIC MEDICINE Comment: Specimen Information Specimen Source: Urine Specimen Site: Random void Specimen Urine - Random void Performing Organization Address [facility] Phone Number [facility] DEPARTMENT OF PATHOLOGY AND [address] [place] [address] Urine culture (07/11/2017 1:57 AM CDT) Urine culture isolate Staphylococcus aureus [facility] DEPARTMENT OF 10-5 cfu/ml PATHOLOGY AND [...] RAH 1 mcg/mL: Susceptible Performing Organization Address [facility] Phone Number [facility] DEPARTMENT OF PATHOLOGY AND [address] [place] [address] GENOMIC MEDICINE XR Knee 1 Or 2 Vw Right (07/06/2017 2:34 AM CDT) Narrative Performed At EXAM:XR KNEE 1 OR 2 VW RIGHT [facility] CLINICAL HISTORY:RECENT TRAUMAKNEE COMPARISON:None. IMPRESSION: 1.No evidence of acute displaced right knee fracture or dislocation. No significant joint effusion. Question of mild medial soft tissue swelling. [facility]-[id number] Procedure Note Interface, Radiology Results Incoming - 07/06/2017 2:38 AM CDT EXAM: XR KNEE 1 OR 2 VW RIGHT CLINICAL HISTORY: RECENT TRAUMA KNEE COMPARISON: None. IMPRESSION: 1. No evidence of acute displaced right knee fracture or dislocation. No significant joint effusion. Question of mild medial soft tissue swelling. [facility]-[id number] Performing Organization Address [facility] Vegas[facility] Phone Number [facility] [address] [place] [address] after 04/12/2017 Advance Directives Patient has advance care planning documents on file. For more information, please contact:Sergio Padron[address] [place] [phone]
--- NOTE | 2018-04-13 10:37 | EDPHYS ---
Physician Documentation [facility] Name: Dayami Espinosa Age: 48 yrs Sex: Female : 1970 Arrival Date: 04/13/2018 Time: 09:55 Bed 13 Private MD: None, None ED Physician Darrell Mc HPI: 04/13 10:28 This 48 yrs old Female presents to ER via Ambulatory with complaints of sybil Dizziness. 10:28 The patient presents with dizziness. Onset: The symptoms/episode began/occurred 2 sybil day(s) ago. Context: occurred at an unknown location. Modifying factors: The symptoms are alleviated by nothing, the symptoms are aggravated by nothing. Associated signs and symptoms: Pertinent positives: headache. Severity of symptoms: At their worst the symptoms were mild moderate in the emergency department the symptoms have improved moderately. Patient's baseline: Neuro: alert and fully oriented. The patient has not experienced similar symptoms in the past. 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 - Social history:: Smoking status: Patient uses tobacco products, smokes one pack cigarettes per day. - Ebola Screening: : Patient negative for fever greater than or equal to 101.5 degrees Fahrenheit, and additional compatible Ebola Virus Disease symptoms Patient denies exposure to infectious person Patient denies travel to an Ebola-affected area in the 21 days before illness onset No symptoms or risks identified at this time. - Family history:: not pertinent. ROS: 10:28 Constitutional: Negative for fever, chills, and weight loss, Eyes: Negative for injury, sybil pain, redness, and discharge, ENT: Negative for injury, pain, and discharge, Neck: Negative for injury, pain, and swelling, Cardiovascular: Negative for chest pain, palpitations, and edema, Respiratory: Negative for shortness of breath, cough, wheezing, and pleuritic chest pain, Abdomen/GI: Negative for abdominal pain, nausea, vomiting, diarrhea, and constipation, Back: Negative for injury and pain, : Negative for injury, bleeding, discharge, and swelling, MS/Extremity: Negative for injury and deformity, Skin: Negative for injury, rash, and discoloration, Psych: Negative for depression, anxiety, suicide ideation, homicidal ideation, and hallucinations, Allergy/Immunology: Negative for hives, rash, and allergies, Endocrine: Negative for neck swelling, polydipsia, polyuria, polyphagia, and marked weight changes, Hematologic/Lymphatic: Negative for swollen nodes, abnormal bleeding, and unusual bruising. 10:28 Neuro: Positive for headache, of the forehead, left side of the back of head, left temporal area, right side of the back of head and right temporal area. Exam: 10:28 Constitutional: This is a well developed, well nourished patient who is awake, alert, sybil and in no acute distress. Head/Face: Normocephalic, atraumatic. Eyes: Pupils equal round and reactive to light, extra-ocular motions intact. Lids and lashes normal. Conjunctiva and sclera are non-icteric and not injected. Cornea within normal limits. Periorbital areas with no swelling, redness, or edema. ENT: Nares patent. No nasal discharge, no septal abnormalities noted. Tympanic membranes are normal and external auditory canals are clear. Oropharynx with no redness, swelling, or masses, exudates, or evidence of obstruction, uvula midline. Mucous membranes moist. Neck: Trachea midline, no thyromegaly or masses palpated, and no cervical lymphadenopathy. Supple, full range of motion without nuchal rigidity, or vertebral point tenderness. No Meningismus. Chest/axilla: Normal chest wall appearance and motion. Nontender with no deformity. No lesions are appreciated. Cardiovascular: Regular rate and rhythm with a normal S1 and S2. No gallops, murmurs, or rubs. Normal PMI, no JVD. No pulse deficits. Respiratory: Lungs have equal breath sounds bilaterally, clear to auscultation and percussion. No rales, rhonchi or wheezes noted. No increased work of breathing, no retractions or nasal flaring. Abdomen/GI: Soft, non-tender, with normal bowel sounds. No distension or tympany. No guarding or rebound. No evidence of tenderness throughout. Back: No spinal tenderness. No costovertebral tenderness. Full range of motion. Skin: Warm, dry with normal turgor. Normal color with no rashes, no lesions, and no evidence of cellulitis. MS/ Extremity: Pulses equal, no cyanosis. Neurovascular intact. Full, normal range of motion. Neuro: Awake and alert, GCS 15, oriented to person, place, time, and situation. Cranial nerves II-XII grossly intact. Motor strength 5/5 in all extremities. Sensory grossly intact. Cerebellar exam normal. Normal gait. Psych: Awake, alert, with orientation to person, place and time. Behavior, mood, and affect are within normal limits. Vital Signs: 10:14 BP 119 / 71; Pulse 85; Resp 16; Temp 97.7(O); Pulse Ox 98% on R/A; Weight 47.63 kg; iw Height 5 ft. 3 in. (160.02 cm); Pain 8/10; 12:45 BP 122 / 89; Pulse 60; Resp 14; Pulse Ox 100% ; bp 10:14 Body Mass Index 18.60 (47.63 kg, 160.02 cm) iw MDM: 10:21 Patient medically screened. sybil 04/13 10:28 Order name: Basic Metabolic Panel; Complete Time: 12:04/13 10:28 Order name: CBC with Diff; Complete Time: 12:04/13 10:28 Order name: LFT's; Complete Time: 12:04/13 10:28 Order name: Magnesium; Complete Time: 12:04/13 10:28 Order name: NT PRO-BNP; Complete Time: 12:04/13 10:28 Order name: PT-INR; Complete Time: 12:04/13 10:28 Order name: Troponin (emerg Dept Use Only); Complete Time: 12:04/13 10:39 Order name: UDS; Complete Time: 12: 04/13 11:03 Order name: Urine Dipstick--Ancillary (enter results); Complete Time: 12: 04/13 11:03 Order name: Urine --Ancillary (enter results); Complete Time: 12: 04/13 12:11 Order name: Urine Culture 04/13 10:28 Order name: EKG; Complete Time: 10:28 04/13 10:28 Order name: EKG - Nurse/Tech; Complete Time: : [facility] 04/13 10:28 Order name: IV Saline Lock; Complete Time: [facility] 04/13 10:28 Order name: Labs collected and sent; Complete Time: [facility] 04/13 10:28 Order name: O2 Per Protocol; Complete Time: : [facility] 04/13 10:28 Order name: O2 Sat Monitoring; Complete Time: [facility] 04/13 10:28 Order name: Seizure Precautions; Complete Time: 12:12 [facility] Administered Medications: 11: Drug: NS 0.9% 1000 ml Route: IV; Rate: 125 ml/hr; Site: right antecubital; aj 12:44 Follow up: IV Status: Completed infusion bp 11: Drug: Keppra 1000 mg Route: IV; Rate: per protocol; Site: right antecubital; aj 12:44 Follow up: IV Status: Completed infusion bp Disposition: 04/13/18 10:36 Transfer ordered to [facility]. Diagnosis are Dizziness and giddiness, Intracranial injury - right frontal subdural, acute on chronic. - Reason for transfer: Higher level of care. - Accepting physician is to [facility]. - Condition is Fair. - Problem is new. - Symptoms have improved. Signatures: Dispatcher [employer] Em Soria RN RN aj Anderson, Corey, MD MD cha Williams, Irene, RN RN iw Peltier, Brian RN bp Corrections: (The following items were deleted from the chart) 10:46 10:28 Chest Single View+RAD.RAD.BRZ ordered. [facility] EDNV 13:37 10:36 04/13/2018 10:36 Transfer ordered to [facility]. aj Diagnosis is Dizziness and giddiness; Intracranial injury - right frontal subdural, acute on chronic. Reason for transfer: Higher level of care. Accepting physician is to [facility]. Condition is Fair. Problem is new. Symptoms have improved. sybil
--- NOTE | 2018-04-13 10:37 | ER ---
Nurse's Notes [facility] Name: Dayami Espinosa Age: 48 yrs Sex: Female : 1970 Arrival Date: 04/13/2018 Time: 09:55 Bed 13 Private MD: None, None Diagnosis: Dizziness and giddiness;Intracranial injury-right frontal subdural, acute on chronic Presentation: 04/13 10:12 Presenting complaint: Patient states: left AMA from ER this morning, now is ready to be iw transferred, pt states she still feels bad. Transition of care: patient was not received from another setting of care. Onset of symptoms was April 13, 2018. Risk Assessment: Do you want to hurt yourself or someone else? Patient reports no desire to harm self or others. Initial Sepsis Screen: Does the patient meet any 2 criteria? No. Patient's initial sepsis screen is negative. Does the patient have a suspected source of infection? No. Patient's initial sepsis screen is negative. Care prior to arrival: None. 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 - Social history:: Smoking status: Patient uses tobacco products, smokes one pack cigarettes per day. - Ebola Screening: : Patient negative for fever greater than or equal to 101.5 degrees Fahrenheit, and additional compatible Ebola Virus Disease symptoms Patient denies exposure to infectious person Patient denies travel to an Ebola-affected area in the 21 days before illness onset No symptoms or risks identified at this time. - Family history:: not pertinent. Screenin:53 Abuse screen: Denies threats or abuse. Denies injuries from another. Nutritional aj screening: No deficits noted. Tuberculosis screening: No symptoms or risk factors identified. Fall Risk None identified. Assessment: 10:04 Reassessment: pt not in lobby when called. iw 10:53 General: Appears in no apparent distress. comfortable, Behavior is agitated. Pain: aj Denies pain. Neuro: Level of Consciousness is awake, alert, obeys commands, Oriented to person, place, time, situation, Appropriate for age Autopsy Assistant are equal bilaterally Moves all extremities. Full function Gait is steady, Speech is normal, Facial symmetry appears normal, Pupils are PERRLA, Intact Reports dizziness. Respiratory: Airway is patent Respiratory effort is even, unlabored, Respiratory pattern is regular, symmetrical. Derm: Skin is intact, is healthy with good turgor, Skin is pink, warm \T\ dry. normal. 11:10 Reassessment: Patient provided with second blanket, bart crackers, and peanut butter. aj 12:42 Reassessment: [facility] AT B/S FOR TRANSPORT, PT ANUJA WITH EMS. bp Vital Signs: 10:14 BP 119 / 71; Pulse 85; Resp 16; Temp 97.7(O); Pulse Ox 98% on R/A; Weight 47.63 kg; iw Height 5 ft. 3 in. (160.02 cm); Pain 8/10; 12:45 BP 122 / 89; Pulse 60; Resp 14; Pulse Ox 100% ; bp 10:14 Body Mass Index 18.60 (47.63 kg, 160.02 cm) iw ED Course: 09:55 Patient arrived in ED. mr 09:55 None, None is Private Physician. mr 10:13 Triage completed. iw 10:14 Arm band placed on. iw 10:21 Darrell Mc MD is Attending Physician. sybil 10:28 Em aWlls, RN is Primary Nurse. aj 10:53 Patient has correct armband on for positive identification. Bed in low position. Call aj light in reach. Side rails up X 1. 10:53 Inserted saline lock: 20 gauge in right antecubital area, using aseptic technique. aj Blood collected. 11:00 UDS Sent. 5 11:01 Urine collected: clean catch specimen, cloudy. 5 11:03 EKG done, by vehicle modification technician. reviewed by Darrell Mc MD. at1 11:50 Report given to Triage nurse [facility]. aj 12:43 No provider procedures requiring assistance completed. Patient transferred, IV remains bp in place. Administered Medications: 11:08 Drug: NS 0.9% 1000 ml Route: IV; Rate: 125 ml/hr; Site: right antecubital; aj 12:44 Follow up: IV Status: Completed infusion bp 11:08 Drug: Keppra 1000 mg Route: IV; Rate: per protocol; Site: right antecubital; 12:44 Follow up: IV Status: Completed infusion bp Outcome: 10:36 ER care complete, transfer ordered by . sybil 12:42 Transferred by ground EMS to [facility], Transfer form completed. bp 12:42 Condition: stable 12:42 Instructed on the need for transfer. 13:37 Patient left the ED. aj Addendum: 04/16/2018 09:27 Addendum: Culture Results: Positive urine culture. Phone call Attempt #1 call [facility] who reports that patient is no longer in their log of patients. Certified letter sent to listed address for patient. Signatures: Em Walls, RN Darrell Viramontes MD MD cha Rivera, Mary Hilary Charles, RN aCrola Cruz RN RN Em Aguiar, fly finisher EKG [facility] Mica Colby [facility] Jesus Durant RN RN bp
[2018-04-13] MEDS ORDERED: levETIRAcetam 1,000 MG in NA CHLORIDE 0.9% 100 ML IV ONE (10:45)
[2018-04-13 11:02] LABS: Absolute Lymphocytes (CBC) 2.2 K/uL (0.7-4.9); Absolute Monocytes 0.6 K/uL (0.1-1.3); Basophils % 0.2 % (0-1.3); Eosinophils % 2.8 % (0-4.4); Hematocrit 38.6 % (36.0-45.0); Lymphocytes % 27.2 % (15.3-44.8); MPV 8.8 fL (7.6-11.3); Monocytes % 7.9 % (3.3-12.3); RBC Red Blood Cell Count 4.65 M/uL (3.86-4.86)
[2018-04-13 11:15] LABS: Protime INR 0.97
[2018-04-13 11:23] LABS: Urine Blood 2+ (NEG); Urine Glucose NEGATIVE (NEG); Urine Protein NEGATIVE (NEG); Urine pH 6.5 (5.0-7.0)
[2018-04-13 11:32] LABS: ALT/SGPT 21 U/L (12-78); AST/SGOT 17 U/L (15-37); Alkaline Phosphatase 60 U/L (45-117); BUN Blood Urea Nitrogen 7 mg/dL (7-18); Bicarbonate 27 mmol/L (21-32); Bilirubin Direct 0.1 mg/dL (0-0.2); Bilirubin Total 0.5 mg/dL (0.2-1.0); Glucose Level 95 mg/dL (74-106); NT PRO-BNP 109 pg/mL (<125); Potassium 3.6 mmol/L (3.5-5.1); Protein, Total 7.7 g/dL (6.4-8.2); Sodium Level 142 mmol/L (136-145); Troponin (Emerg Dept Use Only) < 0.02 ng/mL (0.0-0.045)
[2018-04-13 11:33] LABS: Magnesium 2.2 mg/dL (1.8-2.4)
[2018-04-13 11:52] LABS: Barbiturates NEGATIVE (NEGATIVE); Benzodiazepines NEGATIVE (NEGATIVE); Cocaine NEGATIVE (NEGATIVE); METHAMPHETAM NEGATIVE (NEGATIVE); Methadone NEGATIVE (NEGATIVE); Opiates NEGATIVE (NEGATIVE); Phencyclidine NEGATIVE (NEGATIVE); THC Cannibis NEGATIVE (NEGATIVE)
--- NOTE | 2018-04-13 12:03 | EKG ---
Test Date: 2018-04-13 Test Time: 10:51:27 Entertainment Manager: OLVIN MEASUREMENT RESULTS: Intervals: Rate: 72 HI: 134 QRSD: 80 QT: 418 QTc: 457 Paola: P: 69 HI: 134 QRS: 87 T: 58 INTERPRETIVE STATEMENTS: Normal sinus rhythm Normal ECG Compared to ECG 04/13/2018 09:01:36 Sinus arrhythmia no longer present Electronically Signed On 04-13-18 12:02:39 [employer] by Mike Brian
== END 2018-04-13 13:37 | disposition short-term general hospital (02) ==
LOC: ER 09:52
DX: I62.03 Nontraumatic chronic subdural hemorrhage (principal); I62.01 Nontraumatic acute subdural hemorrhage; F31.70 Bipolar disorder, currently in remission, most recent episode unspecified; Z79.899 Other long term (current) drug therapy
CPT/HCPCS: 36415; 80048; 80076; 80307; 81003; 81025; 83735; 83880; 84484; 85025; 85610; 87077; 87086; 87088; 87186; 93005; 96365; 96366; 99285; J1953

== ENCOUNTER 2018-05-05 04:47 | Emergency (ER) | payer SELFPAY ==
--- OUTSIDE RECORDS SUMMARY | 2018-05-05 04:49 | XMS REPORT | Clinical Summary ---
:1970 Author Organization [facility] Address [address] [place] [address] Care Team Providers Name Role Phone Asked, [...] right knee MD Luisito (Primary Dx) after 05/04/2017 Social History Tobacco Use Types Packs/Day Years [...] procedure are in the results section. after 05/04/[address] Renal Stone Protocol (07/11/2017 2:53 [...] is of unclear etiology and clinical significance. [facility]-[id number] Procedure Note Interface, Radiology Results Incoming - [...] is of unclear etiology and clinical significance. [facility]-[id number] Performing Organization Address [facility] Phone Number [facility] [address] [place] [address] hCG qualitative, urine screen (07/11/2017 2:29 AM CDT) [facility] qualitative, urine NegativeComment: [facility] DEPARTMENT OF Sensitivity of HCG test: 25 PATHOLOGY AND GENOMIC mIU/mL MEDICINE Specimen Urine Performing Organization Address City/[facility] Phone Number [facility] DEPARTMENT OF PATHOLOGY AND [address] [place] [phone] GENOMIC MEDICINE Urinalysis screen and microscopy, with reflex to culture (07/11/2017 1:57 AM CDT) Specimen site Random void [facility] DEPARTMENT OF PATHOLOGY AND GENOMIC MEDICINE Color, UA Red [facility] DEPARTMENT OF PATHOLOGY AND GENOMIC MEDICINE Appearance, UA Cloudy [facility] DEPARTMENT OF PATHOLOGY AND GENOMIC MEDICINE Specific gravity, UA 1.018 1.001 - 1.035 [facility] DEPARTMENT OF PATHOLOGY AND GENOMIC MEDICINE pH, UA 6.0 5.0 - 8.5 [facility] DEPARTMENT OF PATHOLOGY AND GENOMIC MEDICINE Protein, UA 1+ (A) Negative [facility] DEPARTMENT OF PATHOLOGY AND GENOMIC MEDICINE Glucose, UA Negative Negative [facility] DEPARTMENT OF PATHOLOGY AND GENOMIC MEDICINE Ketones, UA Negative Negative [facility] DEPARTMENT OF PATHOLOGY AND GENOMIC MEDICINE Bilirubin, UA Negative Negative [facility] DEPARTMENT OF PATHOLOGY AND GENOMIC MEDICINE Blood, UA Moderate (A) Negative [facility] DEPARTMENT OF PATHOLOGY AND GENOMIC MEDICINE Nitrite, UA Positive (A) Negative [facility] DEPARTMENT OF PATHOLOGY AND GENOMIC MEDICINE Urobilinogen, UA 2.0 (A) <2.0 [facility] DEPARTMENT OF PATHOLOGY AND GENOMIC MEDICINE Leukocyte esterase, UA Large (A) Negative [facility] DEPARTMENT OF PATHOLOGY AND GENOMIC MEDICINE Epithelial cells, UA 3 /HPF [facility] DEPARTMENT OF PATHOLOGY AND GENOMIC MEDICINE WBC, UA >180 (H) 0 - 4 /HPF [facility] DEPARTMENT OF PATHOLOGY AND GENOMIC MEDICINE RBC, UA 7 (H) 0 - 5 /HPF [facility] DEPARTMENT OF PATHOLOGY AND GENOMIC MEDICINE Bacteria, UA Many (A) None seen [facility] DEPARTMENT OF PATHOLOGY AND GENOMIC MEDICINE Yeast, UA None seen [facility] DEPARTMENT OF PATHOLOGY AND GENOMIC MEDICINE Yeast with pseudohyphae, UA None seen [facility] DEPARTMENT OF PATHOLOGY AND GENOMIC MEDICINE Specimen Urine Performing Organization Address City/[facility] Phone Number [facility] DEPARTMENT OF PATHOLOGY AND [address] [place] [address] Gram stain (07/11/2017 1:57 AM CDT) Gram stain result Many WBC's [facility] DEPARTMENT OF PATHOLOGY Many Gram positive cocci in clusters AND GENOMIC MEDICINE Comment: Specimen Information Specimen Source: Urine Specimen Site: Random void Specimen Urine - Random void Performing Organization Address City/[facility] Phone Number [facility] DEPARTMENT OF PATHOLOGY AND [address] [place] [address] Urine culture (07/11/2017 1:57 AM CDT) Urine culture isolate Staphylococcus aureus [facility] DEPARTMENT OF 10-5 cfu/ml PATHOLOGY [...] RAH 1 mcg/mL: Susceptible Performing Organization Address [facility] Phone Number [facility] DEPARTMENT OF PATHOLOGY AND [address] [place] [address] GENOMIC MEDICINE XR Knee 1 Or 2 Vw Right (07/06/2017 2:34 AM CDT) Narrative Performed At EXAM:XR KNEE 1 OR 2 VW RIGHT [facility] CLINICAL HISTORY:RECENT TRAUMAKNEE COMPARISON:None. IMPRESSION: 1.No evidence of acute displaced right knee fracture or dislocation. No significant joint effusion. Question of mild medial soft tissue swelling. [facility]-[id number] Procedure Note Interface, Radiology Results Incoming - 07/06/2017 2:38 AM CDT EXAM: XR KNEE 1 OR 2 VW RIGHT CLINICAL HISTORY: RECENT TRAUMA KNEE COMPARISON: None. IMPRESSION: 1. No evidence of acute displaced right knee fracture or dislocation. No significant joint effusion. Question of mild medial soft tissue swelling. [facility]-[id number] Performing Organization Address [facility] Phone Number [facility] [address] [place] [address] after 05/04/2017 Advance Directives Patient has advance care planning documents on file. For more information, please contact:Sergio Padron[address] [place] [id number]
--- OUTSIDE RECORDS SUMMARY | 2018-05-05 04:49 | XMS REPORT | Clinical Summary ---
:1970 Author Organization [facility] Address [address] [place] [address] Care Team Providers Name Role Phone Sharpless [...] constipation; Acute superficial gastritis without hemorrhage after 05/04/2017 Social History Tobacco Use Types [...] Not on file Results Not on fileafter 05/04/2017
--- OUTSIDE RECORDS SUMMARY | 2018-05-05 04:49 | XMS REPORT | Continuity of Care Document ---
:1970 Author Organization Interface Problems Problem Status Onset Classification Date Comments Source Date Reported HPI Active 04/13/[address] FACIAL FX Active 02/01/[address] DIZZINESS Active 02/01/[address] Left lower 07/07/19 10/04/2017 [facility] quadrant pain 18 [facility] Lower abdominal 06/29/19 10/04/2017 [facility] pain City FLANK PAIN Active 06/29/19 [place] [address] City Nicotine 10/04/2017 [facility] dependence, City unspecified, uncomplicated NONTRAUMATIC Active [facility] CHRONIC SUBDURAL Medical HEMORRHAGE Center Medications Medication Details Route Status Patient Ordering Order Source Instructions Provider Date tramadol 50 mg=1 No Longer hydrochloride 50 tab, PO, Active 018 [facility] Oral Tablet Q6H, PRN [facility] Pain, X 3 day, # 12 tab, 0 Refill(s) Ondansetron 4 MG 4 mg=1 Active Disintegrating tab, PO, 018 [facility] Tablet [Zofran] BID, PRN [facility] Nausea and Vomiting, Dissolve tab under tongue, # 10 tab, 0 Refill(s) Saline Flush 0.9% 10 mL, Inactive Route: [address] [place] [address] IVP, Drug City Form: INJ, Dosing Weight 45.5, kg, PRN, PRN Line Flush, Start date: 06/28/17 6:17:00 CDT, Duration: 30 day, Stop date: 07/28/17 6:16:00 CDTNotes: (Same as: BD Posiflush) Allergies, Adverse Reactions, Alerts Substance Category Reaction Severity Reaction Status Date Comments Source type Reported Immunizations Immunization Date Given Site Status Last Updated Comments Source Results Order Name Results Value Reference Date Interpretation Comments Source Range Brain wo Brain wo EXAM: CT BRAIN WITHOUT CONTRAST 04/13 - [facility] contrast CT contrast CT /2019 [facility] DATE: 04/13/2018 Read by: Lacey Akhtar MD Dictated Date/time: 04/13/18 14:52 Electronically Signed by: Lacey Akhtar MD 04/13/18 15:02 FINAL REPORT INDICATION: "Pain trauma" ADDITIONAL INFORMATION: None COMPARISON: Noncontrast head CT 04/13/2018, 01/31/2018 TECHNIQUE: Noncontrast axial CT images were acquired through the brain. 5 mm axial, sagittal, and coronal images were reviewed. IV contrast: None. FINDINGS: Overall unchanged exam compared to the CT earlier the same date. Unchanged right frontal lobe encephalomalacia and gliosis with right frontal convexity extra-axial hyperattenuation and subdural collecti on. The extra-axial hyperattenuation along the left frontal convexity has increased since 01/31/2018. Stable right anterior and left posterior/superior temporal lobe encephalomalacia and gliosis. Thinning and irregularity of the right frontal bone is unchanged. IMPRESSION: Right frontal subdural hematoma with increase in size of the focal internal hyperattenuation since the 01/31/2018 CT, favored to represent superimposed acute intracranial hemorrhage. Unchanged since the noncontrast CT from earlier the same day. Brain/Neck Brain/Neck EXAM: CTA BRAIN 01/31 [facility] CTA CTA /2018 - Medical EXAM: CTA NECK Center Read by: Cookie Murrell MD Dictated Date/time: 01/31/18 09:27 DATE: 01/31/2018 7:51 AM CDT Electronically Signed by: Cookie Murrell MD 01/31/18 09:36 FINAL REPORT INDICATION: - SDH COMPARISON: CT brain of the same day from outside hospital TECHNIQUE: Rapid acquisition spiral CT images of the brain and neck were obtained between the aortic arch and the cranial vertex during intravenous infusion of iodinated contrast for the purposes of CT angiography . 3-D CT angiographic images are created using MIP technique at the acquisition workstation. The source images are also presented for interpretation. 60 mL Omnipaque 350 was administered. DISCUSSION: NECK CTA: Common carotid arteries are unremarkable. Carotid bifurcations show no stenosis. Cervical internal carotid arteries are unremarkable. The vertebral arteries have a normal course, caliber and contour. BRAIN CTA: No proximal occlusion, flow limiting stenosis or aneurysm is identified intracranially. No high flow vascular malformation. Stable size of right frontal convexity subdural fluid collection. IMPRESSION: Unremarkable CTA head and neck. (All qualitative and quantitative assessments of carotid bifurcation and proximal internal carotid artery stenosis are made referencing the distal internal carotid artery {NASCET criteria}.) Brain w/wo Brain w/wo EXAM: CT HEAD WITH AND WITHOUT CONTRAST 01/31 [facility] contrast CT contrast CT /2018 - Medical This report was dictated by a Laboratory Assistant/Fellow. I have personally reviewed the images as Center well as the Resident's interpretation and agree with the findings. DATE: 01/31/2018 8:15 AM CDT Read by: Jaylen Ford MD Resident: Jaylen Ford MD Dictated Date/time: 01/31/18 09:44 Electronically Signed by: Cookie Murrell MD 01/31/18 11:29 FINAL REPORT INDICATION: Subdural hematoma. TECHNIQUE: Multiple axial images were obtained through the head from vertex to the skull base. Axial bone algorithm reconstruction images are provided. IV contrast DLP: 2058 mGy-cm COMPARISON: Brain CT 01/31/2018. 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 There is associated encephalomalacia and volume loss adjacent to the subdural hematoma. Ence phalomalacia in the left temporal lobe medial along the medial convexity. The ventricles appear normal in size, with no midline shift, subfalcine, or uncal herniation. The basal cisterns are well preserved. No abnormal enhancement is detected. Mucosal thickening of the left ethmoid sinus. The mastoid air cells are well aerated. IMPRESSION: No acute intracranial hemorrhage. Linear areas of increased density along the inferior margin of the right frontal encephalomalacia are thought to be due to scarring. Stable chronic appearing right anterior convexity subdural hematoma with adjacent unchanged encephalomalacia. Chest 1view Chest 1view EXAM: XR CHEST 1 VIEW 01/31 [facility] DX DX /2018 - Medical This report was dictated by a Laboratory Assistant/Fellow. I have personally reviewed the images as Center well as the Resident's interpretation and agree with the findings. DATE: 01/31/2018 6:30 AM CDT Read by: Arcadio Rush MD Resident: Arcadio Rush MD Dictated Date/time: 01/31/18 06:43 Electronically Signed by: Andre Gallagher MD 01/31/18 07:08 FINAL REPORT INDICATION: - s/p trauma COMPARISON: None. TECHNIQUE: AP chest. FINDINGS: Lines, tubes and hardware: None. Lungs and pleura: The lungs are clear. No pleural effusion or pneumothorax. Heart and mediastinum: The heart size is normal for technique. The mediastinal contours are normal. Pulmonary vascularity is normal. Bones and soft tissues: No acute abnormality. IMPRESSION: 1. No acute abnormality. UT SECTION: ER CHEM PANEL Lipase Lvl 172 unit/L 73 - 393 06/28 [facility] CHEM PANEL Globulin 3.5 g/dL 2.7 - 4.2 06/28 [facility] CHEM PANEL A/G Ratio 1.1 0.7 - 1.6 06/28 [facility] CHEM PANEL B/C Ratio 13 6 - 25 06/28 [facility] CHEM PANEL AGAP 13.6 meq/L 10.0 - 06/28 20.0 [facility] CHEM PANEL Total 7.2 g/dL 6.4 - 8.4 06/28 [facility] CHEM PANEL Alk Phos 56 unit/L 39 - 136 06/28 [facility] CHEM PANEL Bili Total 0.2 mg/dL 0.2 - 1.3 06/28 [facility] CHEM PANEL Potassium 3.6 meq/L 3.5 - 5.1 06/28 Lvl [facility] CHEM PANEL Sodium Lvl 139 meq/L 135 - 145 06/28 [facility] CHEM PANEL Calcium Lvl 8.9 mg/dL 8.5 - 10.5 06/28 [facility] CHEM PANEL Chloride Lvl 105 meq/L 95 - 109 06/28 [facility] CHEM PANEL eGFR 107 06/28 Result Comment: The eGFR is calculated using the CKD-EPI formula. In most young, healthy individuals the eGFR will be >90 mL/ min/1.73m2. The eGFR declines with age. An eGFR of 60-89 may be normal in mL/min/1.7 some populations, particularly the elderly, for whom the CKD-EPI formula has not been extensively validated. Use of the eGFR is not recommended in the following populations: [address] Individuals with unstable creatinine concentrations, including patients and those with serious co-morbid conditions. Patients with extremes in muscle mass or diet. The data above are obtained from the National Kidney Disease Education Program (NKDEP) which additionally recommends that when the eGFR is used in patients with extremes of body mass index for purposes of drug dosing, the eGFR should be multiplied by the estimated BMI. CHEM PANEL ALT 24 unit/L 0 - 65 06/28 [facility] CHEM PANEL AST 20 unit/L 0 - 37 06/28 [facility] CHEM PANEL CO2 24 meq/L 24 - 32 06/28 [facility] CHEM PANEL Albumin Lvl 3.7 g/dL 3.5 - 5.0 06/28 [facility] CHEM PANEL Creatinine 0.63 mg/dL 0.50 - 06/28 MH Lvl 1.40 [facility] CHEM PANEL BUN 8 mg/dL 7 - 22 06/28 [facility] CHEM PANEL Glucose Lvl 107 mg/dL 70 - 99 06/28 [facility] ENDOCRINOLO S Preg Negative Negative 06/[address] [facility]* [facility] (06/28/17 6:15 AM) HEMATOLOGY RDW 15.4 % 11.5 - 06/28 MH 14.5 [facility] HEMATOLOGY MPV 7.7 fL 7.4 - 10.4 06/28 [facility] HEMATOLOGY Platelet 355 K/CMM 133 - 450 06/28 [facility] HEMATOLOGY MCV 87.1 fL 80.0 - 06/28 98.0 [facility] HEMATOLOGY Hct 37.9 % 36.0 - 06/28 MH 48.0 [facility] HEMATOLOGY MCHC 33.3 g/dL 32.0 - 06/28 MH 36.0 [facility] HEMATOLOGY MCH 29.0 pg 27.0 - 06/28 MH 31.0 [facility] HEMATOLOGY Hgb 12.6 g/dL 12.0 - 06/28 MH 16.0 [facility] HEMATOLOGY RBC 4.35 M/CMM 4.20 - 06/28 MH 5.40 [facility] HEMATOLOGY WBC 10.7 K/CMM 3.7 - 10.4 06/28 [facility] HEMATOLOGY Monocytes # 0.8 K/CMM 0.0 - 0.8 06/28 [facility] HEMATOLOGY Eosinophils 0.2 K/CMM 0.0 - 0.5 06/28 MH # /2017 [facility] HEMATOLOGY Segs 72.1 % 45.0 - 06/28 MH 75.0 [facility] HEMATOLOGY Segs-Bands # 7.7 K/CMM 1.5 - 8.1 06/28 [facility] HEMATOLOGY Lymphocytes 2.0 K/CMM 1.0 - 5.5 06/28 # /2017 [facility] HEMATOLOGY Basophils 0.4 % 0.0 - 1.0 06/28 [facility] HEMATOLOGY Monocytes 7.2 % 2.0 - 12.0 06/28 [facility] HEMATOLOGY Eosinophils 1.7 % 0.0 - 4.0 06/28 [facility] HEMATOLOGY Lymphocytes 18.6 % 20.0 - 06/28 MH 40.0 [facility] URINE AND UA Color Colorless Yellow 06/28 [facility] *NA* [facility] (06/28/17 6:15 AM) URINE AND UA Spec Grav 1.002 <=1.030 06/28 [facility] URINE AND UA Turbidity Clear Clear 06/28 [facility] (06/28/17 6:15 AM) [facility] URINE AND UA pH 6.0 5.0 - 8.0 06/28 [facility] URINE AND UA Glucose Negative Negative 06/28 STOOL mg/dL mg/dL [facility] URINE AND UA Protein Negative Negative 06/28 STOOL mg/dL mg/dL [facility] URINE AND UA Blood Moderate Negative 06/28 [facility] *ABN* [facility] (06/28/17 6:15 AM) URINE AND UA Bili Negative Negative 06/28 [facility] *NA* [facility] (06/28/17 6:15 AM) URINE AND UA Nitrite Negative Negative 06/28 [facility] (06/28/17 6:15 AM) [facility] URINE AND UA Hyal Cast 1 /LPF 0 - 2 06/28 STOOL [facility] URINE AND UA Mucus Few /LPF None Seen 06/28 STOOL /LPF [facility] URINE AND UA <=1.0 0.1 - 1.0 06/28 STOOL Urobilinogen mg/dL [facility] URINE AND UA Ketones Negative 06/28 STOOL [facility] URINE AND UA Bacteria Occasional None Seen 06/28 STOOL /HPF /HPF /2017 [facility] URINE AND UA Sq Epi Occasional Few /LPF 06/28 STOOL /LPF /2017 [facility] URINE AND UA Leuk Est Negative Negative 06/28 STOOL /2017 [facility] RBC 2 /HPF 0 - 2 06/28 STOOL [facility] URINE AND UA WBC 1 /HPF 0 - 5 06/28 STOOL [facility] Pelvis Pelvis EXAM: US PELVIS TRANSABDOMINAL 06/28 - Complete US Complete US /2017 - [facility] DATE: 06/28/2017 8:28 AM CDT Read by: Tommy Becker Dictated Date/time: 06/28/17 08:34 Electronically Signed by: Tommy Becker 06/28/17 08:36 FINAL REPORT INDICATION: - hx of lt ov cyst, llq pain ADDITIONAL INFORMATION: A1 LMP: May; : No. COMPARISON: None. TECHNIQUE: Multiplanar grayscale and color Doppler ultrasound of the pelvis were obtained transabdominally through a distended urinary bladder . The patient refused the transvaginal portion of the exam. FINDINGS: Uterus: Orientation: Anteverted Size: 9.4 x 4.4 x 5.5 cm Echogenicity: Normal. Masses: None. Cervix: Unremarkable Endometrium: 1.7 cm. No focal lesions. Right ovary: Size: 2.2 x 2.9 x 2.1 cm Cysts: None. Masses: None. Left ovary: Size: 1.9 x 3.7 x 2.4 cm Cysts: None. Masses: Corpus luteum Adnexa: Normal. Free fluid: None. Other findings: None. IMPRESSION: Unremarkable pelvic ultrasound. Vital Signs Vital Sign Value Date Comments Source Systolic (mm Hg) 89 06/28/2017 [facility] Diastolic (mm Hg) 51 06/28/2017 [facility] Temperature Oral (F) 98.1 F 06/28/2017 [facility] Respitory Rate 16 06/28/2017 [facility] Heart Rate 78 06/28/2017 [facility] Respitory Rate 18 06/28/2017 [facility] Temperature Oral (F) 97.9 F 06/28/2017 [facility] Weight 45.5 06/28/2017 [facility] Heart Rate 81 06/28/2017 [facility] Systolic (mm Hg) 131 06/28/2017 [facility] Diastolic (mm Hg) 81 06/28/2017 [facility] Encounters Location Location Encounter Encounter Reason Attending ADM DC Status Source Details Type Number For Provider Date Date Visit [facility] Emergency [id number] Semaj 06/28 06/28 COLLETTE Murrieta /2017 [facility] Procedures Procedure Code Date Perfomer Comments Source
--- OUTSIDE RECORDS SUMMARY | 2018-05-05 04:50 | XMS REPORT | Summary of Care ---
:1970 Author Organization [facility] Address [address] [place] [id number]- Encounter [facility] Nilesh(FIN) [id number] Date(s): 06/28/17 - 06/28/[address] [address]- Encounter Diagnosis Lower abdominal pain (Discharge Diagnosis) - 06/28/17 Left lower quadrant pain (Final) - 07/05/17 Nicotine dependence, unspecified, uncomplicated (Final) - Discharge Disposition: Home or Self Care Attending Physician: Semaj Murrieta MD Vital Signs Most recent to oldest [Reference Range]: 1 2 Temperature Oral [96.4-99.1 DegF] 98.1 DegF 97.9 DegF (06/28/17 9:36 AM) (06/28/17 4:31 AM) Blood Pressure [90-140/60-90 mmHg] 89/51 mmHg 131/81 mmHg *LOW* (06/28/17 4:31 AM) (06/28/17 9:36 AM) Respiratory Rate [14-20 BRMIN] 16 BRMIN 18 BRMIN (06/28/17 9:36 AM) (06/28/17 4:31 AM) Peripheral Pulse Rate [60-100 bpm] 78 bpm 81 bpm (06/28/17 9:36 AM) (06/28/17 4:31 AM) Weight 45.5 kg (06/28/17 4:31 AM) Problem List No data available for this section Allergies, Adverse Reactions, Alerts Substance Reaction Severity Status NKDA Active Medications Saline Flush 0.9% 10 mL, Route: IVP, Drug Form: INJ, Dosing Weight 45.5, kg, PRN, PRN Line Flush, Start date: 186:17:00 CDT, Duration: 30 day, Stop date: 07/28/17 6:16:00 CDT Notes: (Same as: BD Posiflush) Start Date: 06/28/17 Stop Date: 06/28/17 Status: Discontinuedtramadol 50 mg oral tablet 50 mg=1 tab, PO, Q6H, PRN Pain, X 3 day, # 12 tab, 0 Refill(s) Start Date: 06/28/17 Stop Date: 07/01/17 Status: CompletedZofran ODT 4 mg oral tablet, disintegrating 4 mg=1 tab, PO, BID, PRN Nausea and Vomiting, Dissolve tab under tongue, # 10 tab, 0 Refill(s) Start Date: 06/28/17 Stop Date: 07/03/17 Status: Ordered Results ELECTROLYTES Most recent to oldest [Reference Range]: 1 Sodium Lvl [135-145 mEq/L] 139 mEq/L (06/28/17 6:15 AM) Potassium Lvl [3.5-5.1 mEq/L] 3.6 mEq/L (06/28/17 6:15 AM) Chloride Lvl [95-109 mEq/L] 105 mEq/L (06/28/17 6:15 AM) CO2 [24-32 mEq/L] 24 mEq/L (06/28/17 6:15 AM) AGAP [10.0-20.0 mEq/L] 13.6 mEq/L (06/28/17 6:15 AM) CHEM PANEL Most recent to oldest [Reference Range]: 1 Creatinine Lvl [0.50-1.40 mg/dL] 0.63 mg/dL (06/28/17 6:15 AM) eGFR 107 mL/min/1.73m2 1 *NA* (06/28/17 6:15 AM) BUN [7-22 mg/dL] 8 mg/dL (06/28/17 6:15 AM) B/C Ratio [6-25] 13 (06/28/17 6:15 AM) Glucose Lvl [70-99 mg/dL] 107 mg/dL *HI* (06/28/17 6:15 AM) Total Protein [6.4-8.4 g/dL] 7.2 g/dL (06/28/17 6:15 AM) Albumin Lvl [3.5-5.0 g/dL] 3.7 g/dL (06/28/17 6:15 AM) Globulin [2.7-4.2 g/dL] 3.5 g/dL (06/28/17 6:15 AM) A/G Ratio [0.7-1.6] 1.1 (06/28/17 6:15 AM) Calcium Lvl [8.5-10.5 mg/dL] 8.9 mg/dL (06/28/17 6:15 AM) ALT [0-65 unit/L] 24 unit/L (06/28/17 6:15 AM) AST [0-37 unit/L] 20 unit/L (06/28/17 6:15 AM) Alk Phos [39-136 unit/L] 56 unit/L (06/28/17 6:15 AM) Bili Total [0.2-1.3 mg/dL] 0.2 mg/dL (06/28/17 6:15 AM) Lipase Lvl [73-393 unit/L] 172 unit/L (06/28/17 6:15 AM) 1Result Comment: The eGFR is calculated using the CKD-EPI formula. In most young , healthy individualsthe eGFR will be >90 mL/min/1.73m2. The eGFR declines with age. An eGFR of 60-89 may be normal insome populations, particularly the elderly, for whom the CKD-EPI formula has not been extensively validated. Use of the eGFR is not recommended in the following populations: Individuals with unstable creatinine concentrations, including patients and those with serious co-morbid conditions. Patients with extremes in muscle mass or diet. The data above are obtained from the National Kidney Disease Education Program ( NKDEP) which additionally recommends that when the eGFR is used in patients with extremes of body mass index for purposesof drug dosing, the eGFR should be multiplied by the estimated BMI.ENDOCRINOLOGY Most recent to oldest [Reference Range]: 1 S Preg [Negative] Negative *NA* (06/28/17 6:15 AM) URINE AND STOOL Most recent to oldest [Reference Range]: 1 UA Turbidity [Clear] Clear (06/28/17 6:15 AM) UA Color [Yellow] Colorless *NA* (06/28/17 6:15 AM) UA pH [5.0-8.0] 6.0 (06/28/17 6:15 AM) UA Spec Grav [<=1.030] 1.002 (06/28/17 6:15 AM) UA Glucose [Negative mg/dL] Negative mg/dL *NA* (06/28/17 6:15 AM) UA Blood [Negative] Moderate *ABN* (06/28/17 6:15 AM) UA Ketones Negative *NA* (06/28/17 6:15 AM) UA Protein [Negative mg/dL] Negative mg/dL (06/28/17 6:15 AM) UA Urobilinogen [0.1-1.0 mg/dL] <=1.0 mg/dL *NA* (06/28/17 6:15 AM) UA Bili [Negative] Negative *NA* (06/28/17 6:15 AM) UA Leuk Est [Negative] Negative (06/28/17 6:15 AM) UA Nitrite [Negative] Negative (06/28/17 6:15 AM) UA WBC [0-5 /HPF] 1 /HPF (06/28/17 6:15 AM) UA RBC [0-2 /HPF] 2 /HPF (06/28/17 6:15 AM) UA Bacteria [None Seen /HPF] Occasional /HPF *NA* (06/28/17 6:15 AM) UA Sq Epi [Few /LPF] Occasional /LPF *NA* (06/28/17 6:15 AM) UA Hyal Cast [0-2 /LPF] 1 /LPF (06/28/17 6:15 AM) UA Mucus [None Seen /LPF] Few /LPF *NA* (06/28/17 6:15 AM) HEMATOLOGY Most recent to oldest [Reference Range]: 1 WBC [3.7-10.4 K/CMM] 10.7 K/CMM *HI* (06/28/17 6:15 AM) RBC [4.20-5.40 M/CMM] 4.35 M/CMM (06/28/17 6:15 AM) Hgb [12.0-16.0 g/dL] 12.6 g/dL (06/28/17 6:15 AM) Hct [36.0-48.0 %] 37.9 % (06/28/17 6:15 AM) MCV [80.0-98.0 fL] 87.1 fL (06/28/17 6:15 AM) MCH [27.0-31.0 pg] 29.0 pg (06/28/17 6:15 AM) MCHC [32.0-36.0 g/dL] 33.3 g/dL (06/28/17 6:15 AM) RDW [11.5-14.5 %] 15.4 % *HI* (06/28/17 6:15 AM) MPV [7.4-10.4 fL] 7.7 fL (06/28/17 6:15 AM) Platelet [133-450 K/CMM] 355 K/CMM (06/28/17 6:15 AM) Segs [45.0-75.0 %] 72.1 % (06/28/17 6:15 AM) Lymphocytes [20.0-40.0 %] 18.6 % *LOW* (06/28/17 6:15 AM) Monocytes [2.0-12.0 %] 7.2 % (06/28/17 6:15 AM) Eosinophils [0.0-4.0 %] 1.7 % (06/28/17 6:15 AM) Basophils [0.0-1.0 %] 0.4 % (06/28/17 6:15 AM) Segs-Bands # [1.5-8.1 K/CMM] 7.7 K/CMM (06/28/17 6:15 AM) Lymphocytes # [1.0-5.5 K/CMM] 2.0 K/CMM (06/28/17 6:15 AM) Monocytes # [0.0-0.8 K/CMM] 0.8 K/CMM (06/28/17 6:15 AM) Eosinophils # [0.0-0.5 K/CMM] 0.2 K/CMM (06/28/17 6:15 AM) Immunizations No data available for this section Procedures No data available for this section Social History Social History Type Response Smoking Status Current every day smoker; Lives with someone who smokes; Cigarette Smoking Last 365 Days No; Reg Smoking Cessation Counseling No entered on: 06/28/17 Assessment and Plan No data available for this section
--- OUTSIDE RECORDS SUMMARY | 2018-05-05 04:50 | XMS REPORT ---
:1970 Author Organization [facility] Address [address] [place] [address] Care Team Providers Name Role Phone UNKNOWN, REFFERING Primary Care Provider Unavailable Problems This patient has no known problems. Allergies, Adverse Reactions, Alerts This patient has no known allergies or adverse reactions. Medications This patient has no known medications. Encounters Start End Encounter Admission Attending Care Care Encounter Date/Time Date/Time Type Type Clinicians Facility Department ID 2017-07-02 2017-07-02 Emergency E [facility] MED [id number] 08:16:00 08:16:00
--- NOTE | 2018-05-05 05:21 | EDPHYS ---
Physician Documentation [facility] Name: Dayami Espinosa Age: 48 yrs Sex: Female : 1970 Arrival Date: 05/05/2018 Time: 04:48 Bed 18 Private MD: ED Physician Darrell Mc HPI: 05/05 05:17 This 48 yrs old Female presents to ER via EMS with complaints of Dizziness. sybil 05:17 The patient presents with dizziness, generalized weakness. Onset: The symptoms/episode sybil began/occurred today. Context: occurred at a store. Modifying factors: The symptoms are alleviated by nothing, the symptoms are aggravated by nothing. Associated signs and symptoms: The patient has no apparent associated signs or symptoms. Severity of symptoms: At their worst the symptoms were mild in the emergency department the symptoms have improved mildly. Patient's baseline: Neuro: alert and fully oriented. The patient has not experienced similar symptoms in the past. 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 Patient has never been vaccinated. - Social history:: Smoking status: Patient/guardian denies using tobacco, Patient/guardian denies using alcohol, street drugs, IV drugs. - Ebola Screening: : Patient negative for fever greater than or equal to 101.5 degrees Fahrenheit, and additional compatible Ebola Virus Disease symptoms Patient denies exposure to infectious person Patient denies travel to an Ebola-affected area in the 21 days before illness onset No symptoms or risks identified at this time. - Family history:: not pertinent. ROS: 05:17 Constitutional: Negative for fever, chills, and weight loss, Eyes: Negative for injury, sybil pain, redness, and discharge, ENT: Negative for injury, pain, and discharge, Neck: Negative for injury, pain, and swelling, Cardiovascular: Negative for chest pain, palpitations, and edema, Respiratory: Negative for shortness of breath, cough, wheezing, and pleuritic chest pain, Abdomen/GI: Negative for abdominal pain, nausea, vomiting, diarrhea, and constipation, Back: Negative for injury and pain, : Negative for injury, bleeding, discharge, and swelling, MS/Extremity: Negative for injury and deformity, Skin: Negative for injury, rash, and discoloration, Psych: Negative for depression, anxiety, suicide ideation, homicidal ideation, and hallucinations, Allergy/Immunology: Negative for hives, rash, and allergies, Endocrine: Negative for neck swelling, polydipsia, polyuria, polyphagia, and marked weight changes, Hematologic/Lymphatic: Negative for swollen nodes, abnormal bleeding, and unusual bruising. 05:17 Neuro: Positive for dizziness. Exam: 05:17 Constitutional: This is a well developed, well nourished patient who is awake, alert, sybil and in no acute distress. Head/Face: Normocephalic, atraumatic. Eyes: Pupils equal round and reactive to light, extra-ocular motions intact. Lids and lashes normal. Conjunctiva and sclera are non-icteric and not injected. Cornea within normal limits. Periorbital areas with no swelling, redness, or edema. ENT: Nares patent. No nasal discharge, no septal abnormalities noted. Tympanic membranes are normal and external auditory canals are clear. Oropharynx with no redness, swelling, or masses, exudates, or evidence of obstruction, uvula midline. Mucous membranes moist. Neck: Trachea midline, no thyromegaly or masses palpated, and no cervical lymphadenopathy. Supple, full range of motion without nuchal rigidity, or vertebral point tenderness. No Meningismus. Chest/axilla: Normal chest wall appearance and motion. Nontender with no deformity. No lesions are appreciated. Cardiovascular: Regular rate and rhythm with a normal S1 and S2. No gallops, murmurs, or rubs. Normal PMI, no JVD. No pulse deficits. Respiratory: Lungs have equal breath sounds bilaterally, clear to auscultation and percussion. No rales, rhonchi or wheezes noted. No increased work of breathing, no retractions or nasal flaring. Abdomen/GI: Soft, non-tender, with normal bowel sounds. No distension or tympany. No guarding or rebound. No evidence of tenderness throughout. Back: No spinal tenderness. No costovertebral tenderness. Full range of motion. Skin: Warm, dry with normal turgor. Normal color with no rashes, no lesions, and no evidence of cellulitis. MS/ Extremity: Pulses equal, no cyanosis. Neurovascular intact. Full, normal range of motion. Neuro: Awake and alert, GCS 15, oriented to person, place, time, and situation. Cranial nerves II-XII grossly intact. Motor strength 5/5 in all extremities. Sensory grossly intact. Cerebellar exam normal. Normal gait. Psych: Awake, alert, with orientation to person, place and time. Behavior, mood, and affect are within normal limits. Vital Signs: 05:00 BP 120 / 79; Pulse 78; Resp 20 S; Pulse Ox 100% on R/A; Weight 47.17 kg (R); Height 5 cc3 ft. 3 in. (160.02 cm) (R); 05:35 BP 110 / 66 Supine; Pulse 80; Resp 20 S; Pulse Ox 100% on R/A; cc3 05:38 BP 103 / 71 Sitting; Pulse 77; Resp 19 S; Pulse Ox 99% on R/A; cc3 05:40 BP 110 / 85 Standing; Pulse 82; Resp 19 S; Pulse Ox 100% on R/A; cc3 05:00 Body Mass Index 18.42 (47.17 kg, 160.02 cm) 3 MDM: 04:58 Patient medically screened. [facility] 05:17 Data reviewed: vital signs, nurses notes, lab test result(s), urinalysis, EKG. [facility] 05/05 05:00 Order name: Urine Culture [facility] 05/05 05:22 Order name: Urine Dipstick--Ancillary (enter results) [facility] 05/05 05:00 Order name: EKG; Complete Time: 05:01 [facility] 05/05 05:00 Order name: EKG - Nurse/Tech; Complete Time: 05:08 [facility] 05/05 05:22 Order name: Urine --Ancillary (enter results) [facility] 05/05 05:00 Order name: Urine Dipstick-Ancillary (obtain specimen); Complete Time: 05:17 [facility] 05/05 05:00 Order name: Urine Test (obtain specimen); Complete Time: 05:17 [facility] 05/05 05:17 Order name: Orthostatics; Complete Time: 05:42 sybil Administered Medications: 05:35 Drug: Bactrim (160 mg-800 mg (DS) 1 tablet Route: PO; cc3 05:40 Follow up: Response: No adverse reaction cc3 Disposition: 05/05/18 05:19 Discharged to Home. Impression: Dizziness and giddiness, Bipolar disorder. - Condition is Stable. - Discharge Instructions: Dizziness, Urinary Tract Infection, Adult, Vertigo, Urinary Tract Infection, Adult, Fmix-cs-Scid, Vertigo, Pvrc-ao-[id number], Dizziness, Mfce-ou-Htzj. - Prescriptions for Meclizine 25 mg Oral Tablet - take 1 tablet by ORAL route every 8 hours As needed; 30 tablet. Bactrim DS 800- 160 mg Oral Tablet - take 1 tablet by ORAL route every 12 hours for 7 days; 14 tablet. - Medication Reconciliation Form, Thank You Letter, Antibiotic Education, Prescription Opioid Use form. - Follow up: Private Physician; When: 2 - 3 days; Reason: Recheck today's complaints, Continuance of care, Re-evaluation by your physician. - Problem is new. - Symptoms have improved. Signatures: Dispatcher [employer] EDMS Darrell Mc MD MD cha Riggs, Erika RN RN ed1 Mita Hassan cc3 Corrections: (The following items were deleted from the chart) 06:26 05:19 05/05/2018 05:19 Discharged to Home. Impression: Dizziness and giddiness; Bipolar cc3 disorder. Condition is Stable. Forms are Medication Reconciliation Form, Thank You Letter, Antibiotic Education, Prescription Opioid Use. Follow up: Private Physician; When: 2 - 3 days; Reason: Recheck today's complaints, Continuance of care, Re-evaluation by your physician. Problem is new. Symptoms have improved. sybil
--- NOTE | 2018-05-05 05:21 | ER ---
Nurse's Notes [facility] Name: Dayami Espinosa Age: 48 yrs Sex: Female : 1970 Arrival Date: 05/05/2018 Time: 04:48 Bed 18 Private MD: Diagnosis: Dizziness and giddiness;Bipolar disorder Presentation: 05/05 04:51 Presenting complaint: EMS states: Pt was at [employer] and felt dizzy. Transition of ed1 care: patient was not received from another setting of care. Onset of symptoms was May 04, 2018. Risk Assessment: Do you want to hurt yourself or someone else? Patient reports no desire to harm self or others. Initial Sepsis Screen: Does the patient meet any 2 criteria? No. Patient's initial sepsis screen is negative. Does the patient have a suspected source of infection? No. Patient's initial sepsis screen is negative. Care prior to arrival: Glucose check: 103. 04:51 Method Of Arrival: EMS: [facility] ed1 04:51 Acuity: JAZMIN 3 ed1 Triage Assessment: 04:53 General: Appears in no apparent distress. Behavior is calm, cooperative. Pain: Denies ed1 pain. EXTERMINATOR TERMITE: 04:53 LMP 04/18/2018 ed1 Historical: - Allergies: 04:53 Amoxicillin; ed1 04:53 Pseudoephedrine; ed1 - Home Meds: 04:53 Depakote 250 mg Oral TbEC 1 tab in the morning for Bipolar Disorder in Remission ed1 [Active]; Depakote 500 mg Oral TbEC nightly [Active]; - PMHx: 04:53 Anemia; Bipolar disorder; UTI; ed1 - PSHx: 04:53 Brain surgery; ed1 - Immunization history:: Adult Immunizations up to date, Flu vaccine is not up to date. Patient has never been vaccinated. - Social history:: Smoking status: Patient/guardian denies using tobacco, Patient/guardian denies using alcohol, street drugs, IV drugs. - Ebola Screening: : Patient negative for fever greater than or equal to 101.5 degrees Fahrenheit, and additional compatible Ebola Virus Disease symptoms Patient denies exposure to infectious person Patient denies travel to an Ebola-affected area in the 21 days before illness onset No symptoms or risks identified at this time. - Family history:: not pertinent. Screenin:01 Abuse screen: Denies threats or abuse. Denies injuries from another. Nutritional cc3 screening: No deficits noted. Tuberculosis screening: No symptoms or risk factors identified. Fall Risk Ambulatory Aid- None/Bed Rest/Nurse Assist (0 pts). Gait- Normal/Bed Rest/Wheelchair (0 pts) Mental Status- Oriented to own ability (0 pts). Assessment: 05:00 General: Appears in no apparent distress. comfortable, Behavior is cooperative. Pain: cc3 Denies pain. 05:19 Reassessment: not yet for discharge, still for urine sample collection. cc3 06:10 Reassessment: Patient appears in no apparent distress at this time. Patient and/or cc3 family updated on plan of care and expected duration. Pain level reassessed. Patient is alert, oriented x 3, equal unlabored respirations, skin warm/dry/pink. Patient discharged home but doesn't want to get out so security have to be called to take her out. Patient left ER vitally stable by wheelchair. No IV cannula in situ. Vital Signs: 05:00 BP 120 / 79; Pulse 78; Resp 20 S; Pulse Ox 100% on R/A; Weight 47.17 kg (R); Height 5 cc3 ft. 3 in. (160.02 cm) (R); 05:35 BP 110 / 66 Supine; Pulse 80; Resp 20 S; Pulse Ox 100% on R/A; cc3 05:38 BP 103 / 71 Sitting; Pulse 77; Resp 19 S; Pulse Ox 99% on R/A; cc3 05:40 BP 110 / 85 Standing; Pulse 82; Resp 19 S; Pulse Ox 100% on R/A; cc3 05:00 Body Mass Index 18.42 (47.17 kg, 160.02 cm) cc3 ED Course: 04:48 Patient arrived in ED. al2 04:52 Triage completed. ed1 04:53 Arm band placed on. ed1 04:58 Darrell Mc MD is Attending Physician. [facility] 05:00 Mita Hassan is Primary Nurse. cc3 05:01 Patient has correct armband on for positive identification. Placed in gown. Bed in low cc3 position. Call light in reach. Side rails up X 1. Pulse ox on. NIBP on. 06:10 No provider procedures requiring assistance completed. Patient did not have IV access cc3 during this emergency room visit. Administered Medications: 05:35 Drug: Bactrim (160 mg-800 mg (DS) 1 tablet Route: PO; cc3 05:40 Follow up: Response: No adverse reaction cc3 Outcome: 05:19 Discharge ordered by . sybil 06:10 Discharged to home ambulatory. cc3 06:10 Condition: stable 06:10 Discharge instructions given to patient, Instructed on discharge instructions, follow up and referral plans. medication usage, Demonstrated understanding of instructions, follow-up care, medications, Prescriptions given X 2. 06:26 Patient left the ED. cc3 Addendum: 05/08/2018 07:30 Addendum: Culture Results: Positive urine culture. No further action required. Bacteria s s sensitive to prescribed antibiotic. Signatures: Darrell Mc MD MD cha Smirch, [place], RN RN ss Salud Rivera RN RN ed1 Angeles Wyatt2 Mita Hassan cc3 Corrections: (The following items were deleted from the chart) 02 05:01 05:01 Fall Risk Ambulatory Aid- None/Bed Rest/Nurse Assist (0 pts). Gait- Normal/Bed cc3 Rest/Wheelchair (0 pts) Mental Status- Overestimates/Forgets Limitations (15 pts.). cc3 05:53 05:38 BP 103 / 71; Pulse 77bpm; Resp 19bpm; Spontaneous; Pulse Ox 99% RA; cc3 cc3
[2018-05-05 05:39] LABS: Urine Blood TRACE (NEG); Urine Glucose NEGATIVE (NEG); Urine Protein NEGATIVE (NEG)
[2018-05-05] MEDS ORDERED: SMZ./TMP. 800/160 MG TABLET ONE (05:43)
--- NOTE | 2018-05-05 16:17 | EKG ---
Test Date: 2018-05-05 Test Time: 05:00:38 Return To Vendor: CARLOS MEASUREMENT RESULTS: Intervals: Rate: 82 SD: 138 QRSD: 76 QT: 376 QTc: 439 [place]: P: 75 SD: 138 QRS: 85 T: 66 INTERPRETIVE STATEMENTS: Normal sinus rhythm Normal ECG Compared to ECG 04/13/2018 10:51:27 No significant changes Electronically Signed On 05-05-18 16:16:44 PRODUCTION MACHINE SHOP SUPERVISOR by Mike Brian
== END 2018-05-05 06:26 | disposition home or self-care (01) ==
LOC: ER 04:47
DX: R42 Dizziness and giddiness (principal); F31.9 Bipolar disorder, unspecified; D64.9 Anemia, unspecified
CPT/HCPCS: 81003; 81025; 87077; 87086; 87088; 87186; 93005; 99284

== ENCOUNTER 2018-05-07 07:04 | Emergency (ER) | payer SELFPAY ==
--- OUTSIDE RECORDS SUMMARY | 2018-05-07 07:06 | XMS REPORT | Clinical Summary ---
:1970 Author Organization [facility] Address [address] [place] [address] Care Team Providers Name Role Phone Asked, [...] right knee MD Luisito (Primary Dx) after 05/06/2017 Social History Tobacco Use Types Packs/Day Years [...] procedure are in the results section. after 05/06/[address] Renal Stone Protocol (07/11/2017 2:53 [...] is of unclear etiology and clinical significance. [facility]-[id number] Procedure Note Interface, Radiology Results Incoming - [...] is of unclear etiology and clinical significance. [facility]-[id number] Performing Organization Address [facility] Phone Number [facility] [address] [place] [address] hCG qualitative, urine screen (07/11/2017 2:29 AM CDT) [facility] [place], [place] NegativeComment: [facility] DEPARTMENT OF Sensitivity of HCG test: 25 PATHOLOGY AND GENOMIC mIU/mL MEDICINE Specimen Urine Performing Organization Address City/[facility]ode Phone Number [facility] DEPARTMENT OF PATHOLOGY AND [address] [place] [phone] GENOMIC MEDICINE Urinalysis screen and microscopy, with reflex to culture (07/11/2017 1:57 AM CDT) Specimen site Random void [facility] DEPARTMENT OF PATHOLOGY AND GENOMIC MEDICINE Color, UA Red [facility] DEPARTMENT OF PATHOLOGY AND GENOMIC MEDICINE Appearance, UA Cloudy [facility] DEPARTMENT OF PATHOLOGY AND GENOMIC MEDICINE Specific gravity, UA 1.018 1.001 - 1.035 [facility] DEPARTMENT OF PATHOLOGY AND GENOMIC MEDICINE pH, UA 6.0 5.0 - 8.5 [facility] DEPARTMENT OF PATHOLOGY AND GENOMIC MEDICINE Protein, UA 1+ (A) Negative [facility] DEPARTMENT OF PATHOLOGY AND GENOMIC MEDICINE Glucose, UA Negative Negative [facility] DEPARTMENT OF PATHOLOGY AND GENOMIC MEDICINE Ketones, UA Negative Negative [facility] DEPARTMENT OF PATHOLOGY AND GENOMIC MEDICINE Bilirubin, UA Negative Negative [facility] DEPARTMENT OF PATHOLOGY AND GENOMIC MEDICINE Blood, UA Moderate (A) Negative [facility] DEPARTMENT OF PATHOLOGY AND GENOMIC MEDICINE Nitrite, UA Positive (A) Negative [facility] DEPARTMENT OF PATHOLOGY AND GENOMIC MEDICINE Urobilinogen, UA 2.0 (A) <2.0 [facility] DEPARTMENT OF PATHOLOGY AND GENOMIC MEDICINE Leukocyte esterase, UA Large (A) Negative [facility] DEPARTMENT OF PATHOLOGY AND GENOMIC MEDICINE Epithelial cells, UA 3 /HPF [facility] DEPARTMENT OF PATHOLOGY AND GENOMIC MEDICINE WBC, UA >180 (H) 0 - 4 /HPF [facility] DEPARTMENT OF PATHOLOGY AND GENOMIC MEDICINE RBC, UA 7 (H) 0 - 5 /HPF [facility] DEPARTMENT OF PATHOLOGY AND GENOMIC MEDICINE Bacteria, UA Many (A) None seen [facility] DEPARTMENT OF PATHOLOGY AND GENOMIC MEDICINE Yeast, UA None seen [facility] DEPARTMENT OF PATHOLOGY AND GENOMIC MEDICINE Yeast with pseudohyphae, UA None seen [facility] DEPARTMENT OF PATHOLOGY AND GENOMIC MEDICINE Specimen Urine Performing Organization Address [facility]ode Phone Number [facility] DEPARTMENT OF PATHOLOGY AND [address] [place] [address] Gram stain (07/11/2017 1:57 AM CDT) Gram stain result Many WBC's [facility] DEPARTMENT OF PATHOLOGY Many Gram positive cocci in clusters AND GENOMIC MEDICINE Comment: Specimen Information Specimen Source: Urine Specimen Site: Random void Specimen Urine - Random void Performing Organization Address [facility]ode Phone Number [facility] DEPARTMENT OF PATHOLOGY AND [address] [place] [address] Urine culture (07/11/2017 1:57 AM CDT) Urine culture isolate Staphylococcus aureus [facility] DEPARTMENT OF 10-5 cfu/ml PATHOLOGY AND [...] RAH 1 mcg/mL: Susceptible Performing Organization Address [facility]ode Phone Number [facility] DEPARTMENT OF PATHOLOGY AND [address] [place] [address] GENOMIC MEDICINE XR Knee 1 Or 2 Vw Right (07/06/2017 2:34 AM CDT) Narrative Performed At EXAM:XR KNEE 1 OR 2 VW RIGHT RADIANT CLINICAL HISTORY:RECENT TRAUMAKNEE COMPARISON:None. IMPRESSION: 1.No evidence of acute displaced right knee fracture or dislocation. No significant joint effusion. Question of mild medial soft tissue swelling. [facility]-[id number] Procedure Note Interface, Radiology Results Incoming - 07/06/2017 2:38 AM CDT EXAM: XR KNEE 1 OR 2 VW RIGHT CLINICAL HISTORY: RECENT TRAUMA KNEE COMPARISON: None. IMPRESSION: 1. No evidence of acute displaced right knee fracture or dislocation. No significant joint effusion. Question of mild medial soft tissue swelling. [facility]-[id number] Performing Organization Address [facility]ercotx Phone Number [facility] [address] [place] [address] after 05/06/2017 Advance Directives Patient has advance care planning documents on file. For more information, please contact:Sergio Padron[address] [place] [phone]
--- OUTSIDE RECORDS SUMMARY | 2018-05-07 07:07 | XMS REPORT | Continuity of Care Document ---
:1970 Author Organization Interface Problems Problem Status Onset Classification Date Comments Source Date Reported HPI Active 04/13/[address] FACIAL FX Active 02/01/[address] DIZZINESS Active 02/01/[address] Left lower 07/07/19 10/04/[address] [facility] quadrant pain 18 [facility] Lower abdominal 06/29/19 10/04/[address] [facility] pain City FLANK PAIN Active 06/29/19 [place] [address] City Nicotine 10/04/[address] [facility] dependence, City unspecified, uncomplicated NONTRAUMATIC Active [facility] CHRONIC SUBDURAL Medical HEMORRHAGE Center Medications Medication Details Route Status Patient Ordering Order Source Instructions Provider Date tramadol 50 mg=1 No Longer hydrochloride 50 tab, PO, Active [facility]18 [facility] Oral Tablet Q6H, PRN [facility] Pain, X 3 day, # 12 tab, 0 Refill(s) Ondansetron 4 MG 4 mg=1 Active Disintegrating tab, PO, 018 [facility] Tablet [Zofran] BID, PRN [facility] Nausea and Vomiting, Dissolve tab under tongue, # 10 tab, 0 Refill(s) Saline Flush 0.9% 10 mL, Inactive Route: [address] [place] [address] IVP, Drug City Form: INJ, Dosing Weight [...] EXAM: CT BRAIN WITHOUT CONTRAST 04/13 - [facility] contrast CT contrast CT /2019 [facility] DATE: 04/13/2018 Read by: Lacey Akhtar [...] day. Brain/Neck Brain/Neck EXAM: CTA BRAIN 01/31 [facility] CTA CTA /2018 - Medical EXAM: CTA [...] CT HEAD WITH AND WITHOUT CONTRAST 01/31 [facility] contrast CT contrast CT /2018 - Medical This report was dictated by a Photo Machine Operator/Fellow. I have personally reviewed the images as [...] 1view EXAM: XR CHEST 1 VIEW 01/31 [facility] DX DX /2018 - Medical This report was dictated by a Photo Machine Operator/Fellow. I have personally reviewed the images as [...] Lvl 172 unit/L 73 - 393 06/28 [facility] CHEM PANEL Globulin 3.5 g/dL 2.7 - 4.2 06/28 [facility] CHEM PANEL A/G Ratio 1.1 0.7 - 1.6 06/28 [facility] CHEM PANEL B/C Ratio 13 6 - 25 06/28 [facility] CHEM PANEL AGAP 13.6 meq/L 10.0 - 06/28 20.0 [facility] CHEM PANEL Total 7.2 g/dL 6.4 - 8.4 06/28 [facility] CHEM PANEL Alk Phos 56 unit/L 39 - 136 06/28 [facility] CHEM PANEL Bili Total 0.2 mg/dL 0.2 - 1.3 06/28 [facility] CHEM PANEL Potassium 3.6 meq/L 3.5 - 5.1 06/28 Lvl [facility] CHEM PANEL Sodium Lvl 139 meq/L 135 - 145 06/28 [facility] CHEM PANEL Calcium Lvl 8.9 mg/dL 8.5 - 10.5 06/28 [facility] CHEM PANEL Chloride Lvl 105 meq/L 95 - 109 06/28 [facility] CHEM PANEL eGFR 107 06/28 Result Comment: [...] is not recommended in the following populations: [address] Individuals with unstable creatinine concentrations, including [...] ALT 24 unit/L 0 - 65 06/28 [facility] CHEM PANEL AST 20 unit/L 0 - 37 06/28 [facility] CHEM PANEL CO2 24 meq/L 24 - 32 06/28 [facility] CHEM PANEL Albumin Lvl 3.7 g/dL 3.5 - 5.0 06/28 [facility] CHEM PANEL Creatinine 0.63 mg/dL 0.50 - 06/28 MH Lvl 1.40 [facility] CHEM PANEL BUN 8 mg/dL 7 - 22 06/28 [facility] CHEM PANEL Glucose Lvl 107 mg/dL 70 - 99 06/28 [facility] ENDOCRINOLO S Preg Negative Negative 06/28 [facility]* [facility] (06/28/17 6:15 AM) HEMATOLOGY RDW 15.4 % 11.5 - 06/28 MH 14.5 [facility] HEMATOLOGY MPV 7.7 fL 7.4 - 10.4 06/28 [facility] HEMATOLOGY Platelet 355 K/CMM 133 - 450 06/28 [facility] HEMATOLOGY MCV 87.1 fL 80.0 - 06/28 98.0 [facility] HEMATOLOGY Hct 37.9 % 36.0 - 06/28 MH 48.0 [facility] HEMATOLOGY MCHC 33.3 g/dL 32.0 - 06/28 MH 36.0 [facility] HEMATOLOGY MCH 29.0 pg 27.0 - 06/28 MH 31.0 [facility] HEMATOLOGY Hgb 12.6 g/dL 12.0 - 06/28 MH 16.0 [facility] HEMATOLOGY RBC 4.35 M/CMM 4.20 - 06/28 MH 5.40 [facility] HEMATOLOGY WBC 10.7 K/CMM 3.7 - 10.4 06/28 [facility] HEMATOLOGY Monocytes # 0.8 K/CMM 0.0 - 0.8 06/28 [facility] HEMATOLOGY Eosinophils 0.2 K/CMM 0.0 - 0.5 06/28 MH # /2017 [facility] HEMATOLOGY Segs 72.1 % 45.0 - 06/28 MH 75.0 [facility] HEMATOLOGY Segs-Bands # 7.7 K/CMM 1.5 - 8.1 06/28 [facility] HEMATOLOGY Lymphocytes 2.0 K/CMM 1.0 - 5.5 06/28 # /2017 [facility] HEMATOLOGY Basophils 0.4 % 0.0 - 1.0 06/28 [facility] HEMATOLOGY Monocytes 7.2 % 2.0 - 12.0 06/28 [facility] HEMATOLOGY Eosinophils 1.7 % 0.0 - 4.0 06/28 [facility] HEMATOLOGY Lymphocytes 18.6 % 20.0 - 06/28 MH 40.0 [facility] URINE AND UA Color Colorless Yellow 06/28 [facility] *NA* [facility] (06/28/17 6:15 AM) URINE AND UA Spec Grav 1.002 <=1.030 06/28 [facility] URINE AND UA Turbidity Clear Clear 06/28 [facility] (06/28/17 6:15 AM) [facility] URINE AND UA pH 6.0 5.0 - 8.0 06/28 [facility] URINE AND UA Glucose Negative Negative 06/28 [facility] mg/dL mg/dL [facility] URINE AND UA Protein Negative Negative 06/28 [facility] mg/dL mg/dL [facility] URINE AND UA Blood Moderate Negative 06/28 [facility] *ABN* [facility] (06/28/17 6:15 AM) URINE AND UA Bili Negative Negative 06/28 [facility] *NA* [facility] (06/28/17 6:15 AM) URINE AND UA Nitrite Negative Negative 06/28 [facility] (06/28/17 6:15 AM) [facility] URINE AND UA Hyal Cast 1 /LPF 0 - 2 06/28 STOOL [facility] URINE AND UA Mucus Few /LPF None Seen 06/28 STOOL /LPF [facility] URINE AND UA <=1.0 0.1 - 1.0 06/28 ST[facility] Urobilinogen mg/dL [facility] URINE AND UA Ketones Negative 06/28 STOOL [facility] URINE AND UA Bacteria Occasional None Seen 06/28 STOOL /HPF /HPF /2017 [facility] URINE AND UA Sq Epi Occasional Few /LPF 06/28 STOOL /LPF /2017 [facility] URINE AND UA Leuk Est Negative Negative 06/28 [facility]OOL /2017 [facility] RBC 2 /HPF 0 - 2 06/28 STOOL [facility] URINE AND UA WBC 1 /HPF 0 - 5 06/28 STOOL [facility] Pelvis Pelvis EXAM: US PELVIS TRANSABDOMINAL 06/28 - Complete US Complete US /2017 - [facility] DATE: 06/28/2017 8:28 AM CDT Read by: [...] Comments Source Systolic (mm Hg) 89 06/28/2017 [facility] Diastolic (mm Hg) 51 06/28/2017 [facility] Temperature Oral (F) 98.1 F 06/28/2017 [facility] Respitory Rate 16 06/28/2017 [facility] Heart Rate 78 06/28/2017 [facility] Respitory Rate 18 06/28/2017 [facility] Temperature Oral (F) 97.9 F 06/28/2017 [facility] Weight 45.5 06/28/2017 [facility] Heart Rate 81 06/28/2017 [facility] Systolic (mm Hg) 131 06/28/2017 [facility] Diastolic (mm Hg) 81 06/28/2017 [facility] Encounters Location Location Encounter Encounter Reason Attending ADM DC Status Source Details Type Number For Provider Date Date Visit [facility] Emergency [id number] Semaj 06/28 06/28 [place] /2017 [facility] Procedures Procedure Code Date Perfomer Comments Source
--- OUTSIDE RECORDS SUMMARY | 2018-05-07 07:07 | XMS REPORT ---
:1970 [facility] Address [address] [place] [address] Care Team Providers Name Role Phone UNKNOWN, [...] E [facility] MED [id number] 08:16:00 08:16:00
--- OUTSIDE RECORDS SUMMARY | 2018-05-07 07:07 | XMS REPORT | Clinical Summary ---
:1970 Author Organization [facility] Address [address] [place] [address] Care Team Providers Name Role Phone Sharpless [...] constipation; Acute superficial gastritis without hemorrhage after 05/06/2017 Social History Tobacco Use Types [...] Not on file Results Not on fileafter 05/06/2017
[2018-05-07] MEDS ORDERED: NA CHLORIDE 0.9% 1,000 ML ONE (07:35)
[2018-05-07] MEDS ORDERED: KETOROLAC 30 MG/ML INJ ONE (07:35)
[2018-05-07 07:49] LABS: Absolute Lymphocytes (CBC) 1.9 K/uL (0.7-4.9); Absolute Monocytes 0.7 K/uL (0.1-1.3); Absolute Neutrophil 3.8 K/uL (1.8-8.0); Basophils % 0.7 % (0-1.3); Eosinophils % 3.2 % (0-4.4); Hematocrit 33.6 % (36.0-45.0); Lymphocytes % 28.5 % (15.3-44.8); MPV 9.1 fL (7.6-11.3); Monocytes % 10.5 % (3.3-12.3); RBC Red Blood Cell Count 4.04 M/uL (3.86-4.86)
[2018-05-07 08:05] LABS: ALT/SGPT 16 U/L (12-78); AST/SGOT 14 U/L (15-37); Albumin 3.4 g/dL (3.4-5.0); Alkaline Phosphatase 48 U/L (45-117); BUN Blood Urea Nitrogen 11 mg/dL (7-18); Bicarbonate 27 mmol/L (21-32); Bilirubin Direct < 0.1 mg/dL (0-0.2); Bilirubin Total 0.2 mg/dL (0.2-1.0); Glucose Level 95 mg/dL (74-106); Lipase 136 U/L (73-393); Potassium 3.7 mmol/L (3.5-5.1); Protein, Total 6.4 g/dL (6.4-8.2); Sodium Level 143 mmol/L (136-145)
[2018-05-07] MEDS ORDERED: DIVALPROEX DR 250 MG TAB PO ONE (08:41)
--- NOTE | 2018-05-07 09:04 | ER ---
Nurse's Notes [facility] Name: Dayami Espinosa Age: 48 yrs Sex: Female : 1970 Arrival Date: 05/07/2018 Time: 07:07 Bed 20 Private MD: Diagnosis: Lower abdominal pain, unspecified Presentation: 05/07 07:11 Presenting complaint: EMS states: called out for abdominal pain x 2 days with nausea, rr5 denies fever, V/D. Transition of care: patient was not received from another setting of care. Onset of symptoms was May 05, 2018. Risk Assessment: Do you want to hurt yourself or someone else? Patient reports no desire to harm self or others. Initial Sepsis Screen: Does the patient meet any 2 criteria? No. Patient's initial sepsis screen is negative. Does the patient have a suspected source of infection? No. Patient's initial sepsis screen is negative. Care prior to arrival: None. 07:11 Method Of Arrival: EMS: [facility] rr5 07:20 Acuity: JAZMIN 3 iw Triage Assessment: 07:15 General: Appears in no apparent distress. comfortable, slender, Behavior is anxious, rr5 Denies fever. Pain: Complains of pain in abdomen Pain currently is 10 out of 10 on a pain scale. Quality of pain is described as sharp, Pain began 2-3 days ago. Is continuous. 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 - Ebola Screening: : Patient negative for fever greater than or equal to 101.5 degrees Fahrenheit, and additional compatible Ebola Virus Disease symptoms Patient denies exposure to infectious person Patient denies travel to an Ebola-affected area in the 21 days before illness onset No symptoms or risks identified at this time. - Social history:: Smoking status: Patient uses tobacco products, smokes one pack cigarettes per day. Screenin:23 Abuse screen: Denies threats or abuse. Nutritional screening: No deficits noted. em Tuberculosis screening: No symptoms or risk factors identified. Fall Risk None identified. Assessment: 07:15 General: Appears in no apparent distress. comfortable, slender, Behavior is em cooperative, anxious. Pain: Complains of pain in abdomen. Neuro: Level of Consciousness is awake, alert, obeys commands, Oriented to person, place, time, situation. Cardiovascular: Patient's skin is warm and dry. Respiratory: Airway is patent Respiratory effort is even, unlabored, Respiratory pattern is regular, symmetrical. GI: Abdomen is flat, Bowel sounds present X 4 quads. Abd is soft and non tender X 4 quads. Reports nausea, Patient currently denies vomiting. : Urine is clear, Denies burning with urination. EENT: Oral mucosa is moist. Absence of teeth noted - upper right central Incisor (#8) and upper left central incisor (#9) Throat is clear is pink. Derm: Skin is intact, Skin is pink, warm \T\ dry. Musculoskeletal: Range of motion: intact in all extremities. 07:20 Reassessment: Patient appears in no apparent distress at this time. I agree with above iw assessment by Jonel Carlton LVN. 08:29 Reassessment: Patient appears in no apparent distress at this time. Patient and/or em family updated on plan of care and expected duration. Pain level reassessed. Patient is alert, oriented x 3, equal unlabored respirations, skin warm/dry/pink. Patient states feeling better. 09:21 Reassessment: Patient appears in no apparent distress at this time. Patient and/or em family updated on plan of care and expected duration. Pain level reassessed. Patient is alert, oriented x 3, equal unlabored respirations, skin warm/dry/pink. pt discharged, waiting for a ride in room, rates pain 5/10, abdomen nontender Patient states feeling better. 10:02 Reassessment: Patient appears in no apparent distress at this time. wheeled to the em lobby, will wait for her ride. Vital Signs: 07:16 BP 124 / 84; Pulse 86; Resp 16; Temp 98.4(O); Pulse Ox 100% on R/A; Pain 10/10; rr5 07:36 Weight 46.72 kg; Height 5 ft. 3 in. (160.02 cm); em 08:29 BP 101 / 64; Pulse 67; Resp 18; Pulse Ox 99% on R/A; em 09:21 BP 104 / 62; Pulse 73; Resp 16; Pulse Ox 99% on R/A; Pain 5/10; em 07:36 Body Mass Index 18.25 (46.72 kg, 160.02 cm) em ED Course: 07:07 Patient arrived in ED. iw 07:10 Brandin Figueroa RN is Primary Nurse. rr5 07:12 Palak Carlson NP is PHCP. rh1 07:12 Darrell Mc MD is Attending Physician. rh1 07:16 Arm band placed on. rr5 07:20 Triage completed. iw 07:21 Jonel Carlton LVN is Primary Nurse. em 07:23 Patient has correct armband on for positive identification. Placed in gown. Bed in low em position. Call light in reach. Side rails up X2. Pulse ox on. NIBP on. 07:30 Initial lab(s) drawn, by me, sent to lab. Urine collected: clean catch specimen, clear. em Inserted saline lock: 22 gauge in right forearm, using aseptic technique. Blood collected. 09:45 No provider procedures requiring assistance completed. IV discontinued, intact, em bleeding controlled, No redness/swelling at site. Pressure dressing applied. Administered Medications: 07:30 Drug: NS 0.9% 1000 ml Route: IV; Rate: 1 bolus; Site: right forearm; em 09:06 Follow up: IV Status: Completed infusion; IV Intake: 1000ml em 07:35 Drug: Ketorolac 30 mg Route: IVP; Site: right forearm; iw 09:06 Follow up: Response: No adverse reaction; Pain is decreased em 09:06 Drug: Depakene 250 mg Route: PO; em 09:40 Follow up: Response: No adverse reaction em Intake: 09:06 IV: 1000ml; Total: 1000ml. em Outcome: 09:03 Discharge ordered by . rh1 10:03 Discharged to home via wheelchair. em 10:03 Condition: good 10:03 Discharge instructions given to patient, Instructed on discharge instructions, follow up and referral plans. Demonstrated understanding of instructions, follow-up care. 10:06 Patient left the ED. em Signatures: Jonel Carlton LVN LVN em Hilary Charles, BENI RN iw Palak Carlson NP MARZIPAN MOLDER rh1 Brandin Figueroa RN RN rr5 Corrections: (The following items were deleted from the chart) 07:44 07:11 Presenting complaint: EMS states: called out for abdominal pain x 2 days, denies em fever, N/V/D rr5 09:50 09:21 Reassessment: Patient appears in no apparent distress at this time. Patient em and/or family updated on plan of care and expected duration. Pain level reassessed. Patient is alert, oriented x 3, equal unlabored respirations, skin warm/dry/pink. pt discharged, waiting for a ride in room em
--- NOTE | 2018-05-07 09:04 | EDPHYS ---
Physician Documentation [facility] Name: Dayami Espinosa Age: 48 yrs Sex: Female : 1970 Arrival Date: 05/07/2018 Time: 07:07 Bed 20 Private MD: ED Physician Darrell Mc HPI: 05/07 07:21 This 48 yrs old Female presents to ER via EMS with complaints of Abdominal rh1 Pain. 07:21 The patient presents with abdominal pain in the lower abdomen. Onset: The rh1 symptoms/episode began/occurred 2 day(s) ago. The symptoms do not radiate. Associated signs and symptoms: Pertinent negatives: nausea, vomiting, and diarrhea, chest pain, constipation, dysuria, fever, palpitations, shortness of breath, vaginal discharge, vomiting. The symptoms are described as crampy. Modifying factors: The symptoms are alleviated by nothing, the symptoms are aggravated by pressure. Severity of pain: At its worst the pain was moderate in the emergency department the pain is unchanged. The patient has experienced similar episodes in the past. The patient has not recently seen a physician. She began with diffuse lower abdominal pain 2 days ago, has been constant and described as cramping. She reports "on the rag" and has had exact similar pain in the past with menstruation. Took 2 tylenol approx 1 hour ago without improvement. Reports used 10 thin pads in the past 24 hours with vaginal bleeding, no dizziness, no syncope. Denies any previous vaginal discharge, no fever/chills. She was seen here 2 days ago for dizziness, with gram positive rods on urine culture, taking bactrim, denies any urinary symptoms or flank pain. Flight of ideas throughout examination.. 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 - Ebola Screening: : Patient negative for fever greater than or equal to 101.5 degrees Fahrenheit, and additional compatible Ebola Virus Disease symptoms Patient denies exposure to infectious person Patient denies travel to an Ebola-affected area in the 21 days before illness onset No symptoms or risks identified at this time. - Social history:: Smoking status: Patient uses tobacco products, smokes one pack cigarettes per day. ROS: 07:21 Constitutional: Negative for fever, chills rh1 07:21 Cardiovascular: Negative for chest pain, palpitations. 07:21 Respiratory: Negative for shortness of breath. 07:21 Abdomen/GI: Positive for abdominal pain, nausea, Negative for vomiting, diarrhea, constipation. 07:21 Back: Positive for pain with movement, unchanged from her chronic back pain, Negative for pain at rest. 07:21 MS/extremity: Negative for decreased range of motion. 07:21 Skin: Negative for pallor. 07:21 Psych: Negative for suicidal ideation. 07:21 : Positive for vaginal bleeding, Negative for urinary symptoms, urinary frequency, rh1 small amounts, burning with urination, difficulty urinating, vaginal discharge. 07:21 Neuro: Negative for altered mental status, dizziness, headache, numbness, seizure activity, speech changes, syncope, near syncope, tingling, visual changes, weakness. Exam: 07:21 Constitutional: This is a well developed, well nourished patient who is awake, alert, rh1 and in no acute distress. Head/Face: Normocephalic, atraumatic. 07:21 Neck: Trachea midline, and no cervical lymphadenopathy. Supple, full range of motion without nuchal rigidity. No Meningismus. Chest/axilla: Normal chest wall appearance and motion. Nontender with no deformity. No lesions are appreciated. Cardiovascular: Regular rate and rhythm with a normal S1 and S2. No gallops, murmurs, or rubs. No JVD. No pulse deficits. Respiratory: Lungs have equal breath sounds bilaterally, clear to auscultation. No rales, rhonchi or wheezes noted. No increased work of breathing. 07:21 Back: No spinal tenderness. No costovertebral tenderness. Full range of motion. 07:21 Skin: Warm, dry with normal turgor. Normal color with no rashes, no lesions, and no evidence of cellulitis. MS/ Extremity: Pulses equal, no cyanosis. Neurovascular intact. Full, normal range of motion. 07:21 ENT: Mouth: is normal, no lip abnormalities, no mucosal abnormalities, Dental exam: missing teeth. 07:21 Abdomen/GI: Inspection: abdomen appears normal, bruising, is not seen, distension, is not seen, Bowel sounds: normal, in all quadrants, active, all quadrants, Palpation: soft, in all quadrants, mild abdominal tenderness, in the suprapubic area, rebound tenderness, is not appreciated, involuntary guarding, is not appreciated, Indicators: McBurney's point is not tender, Douglas's sign is negative, Rovsing's sign is negative, Liver: no appreciated palpable abnormalities. 07:21 Back: Exam negative for CVA tenderness, scoliosis, vertebral tenderness. 07:21 Neuro: Orientation: is normal, to person, place \\T\\ time. Mentation: is normal, lucid, able to follow commands, Motor: is normal, moves all fours, Sensation: is normal, no obvious gross deficits. 07:21 Psych: Behavior/mood is cooperative, Affect is animated, Oriented to person, place, time, Patient has no thoughts/intents to harm self or others. flight of ideas throughout examination. Vital Signs: 07:16 BP 124 / 84; Pulse 86; Resp 16; Temp 98.4(O); Pulse Ox 100% on R/A; Pain 10/10; rr5 07:36 Weight 46.72 kg; Height 5 ft. 3 in. (160.02 cm); em 08:29 BP 101 / 64; Pulse 67; Resp 18; Pulse Ox 99% on R/A; em 09:21 BP 104 / 62; Pulse 73; Resp 16; Pulse Ox 99% on R/A; Pain 5/10; em 07:36 Body Mass Index 18.25 (46.72 kg, 160.02 cm) em MDM: 07:21 Patient medically screened. rh1 09:01 Data reviewed: vital signs, nurses notes, lab test result(s), and as a result, I will rh1 discharge patient. Data interpreted: Pulse oximetry: on room air is 99 %. Interpretation: normal. Counseling: I had a detailed discussion with the patient and/or guardian regarding: the historical points, exam findings, and any diagnostic results supporting the discharge/admit diagnosis, lab results, the need for outpatient follow up, a family practitioner, to return to the emergency department if symptoms worsen or persist or if there are any questions or concerns that arise at home. Response to treatment: the patient is now symptom free, denies any abdominal pain, no N/V, feeling much improved, feels that symptoms are related to being "on the rag." Abd soft, non - tender to palpation, no CVA tenderness, afebrile in ER, alert and appropriate; UTI with gram negative rods dx at 05/05 visit, no sensitivity results available, results from 04/13 with e. coli sensitivity to bactrim, discussed to continue taking bactrim and depakote as prescribed; return with fever, N/V, continued/worsening abd pain. 09:02 Special discussion: Based on the patient's Hx, exam, and Dx evaluation, there is no rh1 indication for emergent surgery or inpatient Tx. It is understood by the patient/guardian that if the Sx's persist or worsen they need to return immediately for re-evaluation. 05/07 07:13 Order name: Basic Metabolic Panel; Complete Time: 08:08 1 05/07 07:13 Order name: CBC with Diff; Complete Time: 08:14 1 05/07 07:13 Order name: Creatinine for Radiology; Complete Time: 08:08 1 05/07 07:13 Order name: Hepatic Function; Complete Time: 08:08 1 05/07 07:13 Order name: Lipase; Complete Time: 08:08 rh05/07 07:14 Order name: Depakote; Complete Time: 08:08 1 05/07 07:13 Order name: IV Saline Lock; Complete Time: 07:37 1 05/07 07:13 Order name: Labs collected and sent; Complete Time: 07:37 rh1 05/07 07:14 Order name: Urine Dipstick-Ancillary (obtain specimen); Complete Time: 07:19 1 05/07 07:38 Order name: Urine Dipstick--Ancillary (enter results) eb 05/07 07:38 Order name: Urine --Ancillary (enter results) eb 05/07 07:31 Order name: Urine Test (obtain specimen); Complete Time: 07:36 rh1 Administered Medications: 07:30 Drug: NS 0.9% 1000 ml Route: IV; Rate: 1 bolus; Site: right forearm; em 09:06 Follow up: IV Status: Completed infusion; IV Intake: 1000ml em 07:35 Drug: Ketorolac 30 mg Route: IVP; Site: right forearm; iw 09:06 Follow up: Response: No adverse reaction; Pain is decreased em 09:06 Drug: Depakene 250 mg Route: PO; em 09:40 Follow up: Response: No adverse reaction em Disposition: 05/08 09:02 Co-signature as Attending Physician, Darrell Mc MD I agree with the assessment and sybil plan of care. Disposition: 05/07/18 09:03 Discharged to Home. Impression: Lower abdominal pain, unspecified. - Condition is Stable. - Discharge Instructions: Abdominal Pain, Adult. - Medication Reconciliation Form, Thank You Letter, Antibiotic Education, Prescription Opioid Use form. - Follow up: Private Physician; When: 1 - 2 days; Reason: Recheck today's complaints, Continuance of care, Re-evaluation by your physician. Follow up: Emergency Department; When: As needed; Reason: Fever > 102 F, If symptoms return, Trouble breathing, Worsening of condition. - Problem is new. - Symptoms have improved. - Notes: 1. Continue taking bactrim.

2. Take depakote as prescribed. Signatures: Dispatcher [employer] Darrell Dia MD MD cha Munoz, Edgar, STORAGE BATTERY INSPECTOR STORAGE BATTERY INSPECTOR Hilary Neri, Palak Silverio RN, NP BRINE PROCESS OPERATOR 1 Brandin Figueroa RN RN rr5 Corrections: (The following items were deleted from the chart) 05/07 07:26 07:21 She began with diffuse lower abdominal pain 2 days ago, has been constant and rh1 described as cramping. She reports "on the rag" and has had similar pain in the past. Took 2 tylenol approx 1 hour ago without improvement. Reports used 10 thin pads in the past 24 hours with vaginal bleeding. Denies any previous vaginal discharge, no urinary symptoms, no fever/chills, no flank pain, dizzness/syncope.. rh1 07:34 07:21 She began with diffuse lower abdominal pain 2 days ago, has been constant and rh1 described as cramping. She reports "on the rag" and has had similar pain in the past. Took 2 tylenol approx 1 hour ago without improvement. Reports used 10 thin pads in the past 24 hours with vaginal bleeding. Denies any previous vaginal discharge, no urinary symptoms, no fever/chills, no flank pain, dizziness/syncope. Flight of ideas throughout examination.. rh1 09:04 07:21 : Positive for vaginal bleeding, Negative for urinary symptoms, urinary rh1 frequency, small amounts, vaginal discharge, rh1 09:04 07:21 Neuro: Negative for altered mental status, dizziness, numbness, syncope, near rh1 syncope, tingling, weakness, rh1 09:09 07:21 She began with diffuse lower abdominal pain 2 days ago, has been constant and rh1 described as cramping. She reports "on the rag" and has had similar pain in the past with menstruation. Took 2 tylenol approx 1 hour ago without improvement. Reports used 10 thin pads in the past 24 hours with vaginal bleeding. Denies any previous vaginal discharge, no urinary symptoms, no fever/chills, no flank pain, dizziness/syncope. Flight of ideas throughout examination.. rh1 09:10 09:01 Response to treatment: the patient is now symptom free, denies any abdominal rh1 pain, abd soft, non - tender to palpation, rh1 09:14 09:01 Response to treatment: the patient is now symptom free, denies any abdominal rh1 pain, abd soft, non - tender to palpation, no CVA tenderness, afebrile in ER -- discussed to continue taking bactrim, rh1 10:06 09:03 05/07/2018 09:03 Discharged to Home. Impression: Lower abdominal pain, em unspecified. Condition is Stable. Forms are Medication Reconciliation Form, Thank You Letter, Antibiotic Education, Prescription Opioid Use. Follow up: Private Physician; When: 1 - 2 days; Reason: Recheck today's complaints, Continuance of care, Re-evaluation by your physician. Follow up: Emergency Department; When: As needed; Reason: Fever > 102 F, If symptoms return, Trouble breathing, Worsening of condition. Problem is new. Symptoms have improved. rh1
[2018-05-07 14:19] LABS: Urine Blood 2+ (NEG); Urine Glucose NEGATIVE (NEG); Urine Protein NEGATIVE (NEG); Urine pH 5.5 (5.0-7.0)
== END 2018-05-07 10:06 | disposition home or self-care (01) ==
LOC: ER 07:04
DX: R10.30 Lower abdominal pain, unspecified (principal); F31.9 Bipolar disorder, unspecified; F17.210 Nicotine dependence, cigarettes, uncomplicated; Z79.899 Other long term (current) drug therapy
CPT/HCPCS: 36415; 80048; 80076; 80164; 81003; 81025; 83690; 85025; 96361; 96374; 99284; J7030

== ENCOUNTER 2018-05-14 23:13 | Emergency (ER) | payer SELFPAY ==
--- OUTSIDE RECORDS SUMMARY | 2018-05-14 23:57 | XMS REPORT | Continuity of Care Document ---
:1970 Author Organization Interface Problems Problem Status Onset Classification Date Comments Source Date Reported HPI Active 04/13/[address] FACIAL FX Active 02/01/[address] DIZZINESS Active 02/01/[address] Left lower 07/07/19 10/04/2017 [facility] quadrant pain 18 [facility] Lower abdominal 06/29/19 10/04/2017 [facility] pain [place] FLANK PAIN Active 06/29/19 [place] [address] [place] Nicotine 10/04/2017 [facility] dependence, [place] unspecified, uncomplicated NONTRAUMATIC Active [facility] CHRONIC SUBDURAL Medical HEMORRHAGE Center Medications Medication Details Route Status Patient Ordering Order Source Instructions Provider Date tramadol 50 mg=1 No Longer hydrochloride 50 tab, PO, Active 018 [facility] Oral Tablet Q6H, PRN [facility] Pain, X 3 day, # 12 tab, 0 Refill(s) Ondansetron 4 MG 4 mg=1 Active Disintegrating tab, PO, 018 [facility] Tablet [Zofran] BID, PRN [facility] Nausea and Vomiting, Dissolve tab under tongue, # 10 tab, 0 Refill(s) Saline Flush 0.9% 10 mL, Inactive Route: [address] [place] [address] IVP, Drug City Form: INJ, Dosing Weight [...] EXAM: CT BRAIN WITHOUT CONTRAST 04/13 - [facility] contrast CT contrast CT /2019 [facility] DATE: 04/13/2018 Read by: Lacey [...] day. Brain/Neck Brain/Neck EXAM: CTA BRAIN 01/31 [facility] CTA CTA /2018 - Medical EXAM: CTA [...] CT HEAD WITH AND WITHOUT CONTRAST 01/[address] [facility] [address] contrast CT /2018 - Medical This report was dictated by a Wood Borer/Fellow. I have personally reviewed the images as [...] 1view EXAM: XR CHEST 1 VIEW 01/31 [facility] DX DX /2018 - Medical This report was dictated by a Wood Borer/Fellow. I have personally reviewed the images as [...] Lvl 172 unit/L 73 - 393 06/28 [facility] CHEM PANEL Globulin 3.5 g/dL 2.7 - 4.2 06/28 [facility] CHEM PANEL A/G Ratio 1.1 0.7 - 1.6 06/28 [facility] CHEM PANEL B/C Ratio 13 6 - 25 06/28 [facility] CHEM PANEL AGAP 13.6 meq/L 10.0 - 06/28 20.0 [facility] CHEM PANEL Total 7.2 g/dL 6.4 - 8.4 06/28 [facility] CHEM PANEL Alk Phos 56 unit/L 39 - 136 06/28 [facility] CHEM PANEL Bili Total 0.2 mg/dL 0.2 - 1.3 06/28 [facility] CHEM PANEL Potassium 3.6 meq/L 3.5 - 5.1 06/28 Lvl [facility] CHEM PANEL Sodium Lvl 139 meq/L 135 - 145 06/28 [facility] CHEM PANEL Calcium Lvl 8.9 mg/dL 8.5 - 10.5 06/28 [facility] CHEM PANEL Chloride Lvl 105 meq/L 95 - 109 06/28 [facility] CHEM PANEL eGFR 107 06/28 Result [...] is not recommended in the following populations: [address] Individuals with unstable creatinine concentrations, including [...] ALT 24 unit/L 0 - 65 06/28 [facility] CHEM PANEL AST 20 unit/L 0 - 37 06/28 [facility] CHEM PANEL CO2 24 meq/L 24 - 32 06/28 [facility] CHEM PANEL Albumin Lvl 3.7 g/dL 3.5 - 5.0 06/28 [facility] CHEM PANEL Creatinine 0.63 mg/dL 0.50 - 06/28 MH Lvl 1.40 [facility] CHEM PANEL BUN 8 mg/dL 7 - 22 06/28 [facility] CHEM PANEL Glucose Lvl 107 mg/dL 70 - 99 06/28 [facility] ENDOCRINOLO S Preg Negative Negative 06/28 [facility]* [facility] (06/28/17 6:15 AM) HEMATOLOGY RDW 15.4 % 11.5 - 06/28 MH 14.5 [facility] HEMATOLOGY MPV 7.7 fL 7.4 - 10.4 06/28 [facility] HEMATOLOGY Platelet 355 K/CMM 133 - 450 06/28 [facility] HEMATOLOGY MCV 87.1 fL 80.0 - 06/28 98.0 [facility] HEMATOLOGY Hct 37.9 % 36.0 - 06/28 MH 48.0 [facility] HEMATOLOGY MCHC 33.3 g/dL 32.0 - 06/28 MH 36.0 [facility] HEMATOLOGY MCH 29.0 pg 27.0 - 06/28 MH 31.0 [facility] HEMATOLOGY Hgb 12.6 g/dL 12.0 - 06/28 MH 16.0 [facility] HEMATOLOGY RBC 4.35 M/CMM 4.20 - 06/28 MH 5.40 [facility] HEMATOLOGY WBC 10.7 K/CMM 3.7 - 10.4 06/28 [facility] HEMATOLOGY Monocytes # 0.8 K/CMM 0.0 - 0.8 06/28 [facility] HEMATOLOGY Eosinophils 0.2 K/CMM 0.0 - 0.5 06/28 MH # /2017 [facility] HEMATOLOGY Segs 72.1 % 45.0 - 06/28 MH 75.0 [facility] HEMATOLOGY Segs-Bands # 7.7 K/CMM 1.5 - 8.1 06/28 [facility] HEMATOLOGY Lymphocytes 2.0 K/CMM 1.0 - 5.5 06/28 # /2017 [facility] HEMATOLOGY Basophils 0.4 % 0.0 - 1.0 06/28 [facility] HEMATOLOGY Monocytes 7.2 % 2.0 - 12.0 06/28 [facility] HEMATOLOGY Eosinophils 1.7 % 0.0 - 4.0 06/28 [facility] HEMATOLOGY Lymphocytes 18.6 % 20.0 - 06/28 MH 40.0 [facility] URINE AND UA Color Colorless Yellow 06/28 [facility] *NA* [facility] (06/28/17 6:15 AM) URINE AND UA Spec Grav 1.002 <=1.030 06/28 [facility] URINE AND UA Turbidity Clear Clear 06/28 [facility] (06/28/17 6:15 AM) [facility] URINE AND UA pH 6.0 5.0 - 8.0 06/28 [facility] URINE AND UA Glucose Negative Negative 06/28 [facility] mg/dL mg/dL [facility] URINE AND UA Protein Negative Negative 06/28 [facility] mg/dL mg/dL [facility] URINE AND UA Blood Moderate Negative 06/28 [facility] *ABN* [facility] (06/28/17 6:15 AM) URINE AND UA Bili Negative Negative 06/28 [facility] *NA* [facility] (06/28/17 6:15 AM) URINE AND UA Nitrite Negative Negative 06/28 [facility] (06/28/17 6:15 AM) [facility] URINE AND UA Hyal Cast 1 /LPF 0 - 2 06/28 STOOL [facility] URINE AND UA Mucus Few /LPF None Seen 06/28 [facility] /LPF [facility] URINE AND UA <=1.0 0.1 - 1.0 06/28 [facility] Urobilinogen mg/dL [facility] URINE AND UA Ketones Negative 06/28 STOOL [facility] URINE AND UA Bacteria Occasional None Seen 06/28 [facility] /HPF /HPF /2017 [facility] URINE AND UA Sq Epi Occasional Few /LPF 06/28 STO[facility] /LPF /2017 [facility] URINE AND UA Leuk Est Negative Negative 06/28 STOOL /2017 [facility] RBC 2 /HPF 0 - 2 06/28 STOOL [facility] URINE AND UA WBC 1 /HPF 0 - 5 06/28 STOOL [facility] Pelvis Pelvis EXAM: US PELVIS TRANSABDOMINAL 06/28 - Complete US Complete US /2017 - [facility] DATE: 06/28/2017 8:28 AM CDT Read [...] Comments Source Systolic (mm Hg) 89 06/28/2017 [facility] Diastolic (mm Hg) 51 06/28/2017 [facility] Temperature Oral (F) 98.1 F 06/28/2017 [facility] Respitory Rate 16 06/28/2017 [facility] Heart Rate 78 06/28/2017 [facility] Respitory Rate 18 06/28/2017 [facility] Temperature Oral (F) 97.9 F 06/28/2017 [facility] Weight 45.5 06/28/2017 [facility] Heart Rate 81 06/28/2017 [facility] Systolic (mm Hg) 131 06/28/2017 [facility] Diastolic (mm Hg) 81 06/28/2017 [facility] Encounters Location Location Encounter Encounter Reason Attending ADM DC Status Source Details Type Number For Provider Date Date Visit [facility] Emergency [id number] Semaj 06/28 06/28 [place]E [place] /2017 [facility] Procedures Procedure Code Date Perfomer Comments Source
--- OUTSIDE RECORDS SUMMARY | 2018-05-14 23:57 | XMS REPORT ---
:1970 [facility] [address] [place] [address] [address] [place] [address] Care Team Providers Name Role Phone UNKNOWN, [...] 2017-07-02 Emergency E [facility] [id number] 08:16:00 08:16:00
--- OUTSIDE RECORDS SUMMARY | 2018-05-14 23:57 | XMS REPORT | Clinical Summary ---
:1970 Author Organization [facility] Address [address] [place] [address] Care Team Providers Name Role Phone Sharpless [...] constipation; Acute superficial gastritis without hemorrhage after 05/13/2017 Social History Tobacco Use Types Packs/Day Years [...] Not on file Results Not on fileafter 05/13/2017
--- OUTSIDE RECORDS SUMMARY | 2018-05-14 23:57 | XMS REPORT | Clinical Summary ---
:1970 Author Organization [facility] Address [address] [place] [address] Care Team Providers Name Role Phone Asked, [...] right knee MD Luisito (Primary Dx) after 05/13/2017 Social History Tobacco Use Types [...] procedure are in the results section. after 05/13/[address] Renal Stone Protocol (07/11/2017 2:53 [...] is of unclear etiology and clinical significance. [facility]-[id number] Procedure Note Interface, Radiology Results Incoming - [...] is of unclear etiology and clinical significance. [facility]-[id number] Performing Organization Address [facility] Centercode Phone Number [facility] [address] [place] [address] hCG qualitative, urine screen (07/11/2017 2:29 AM CDT) [facility] qualitative, urine NegativeComment: [facility] DEPARTMENT OF Sensitivity of HCG test: 25 PATHOLOGY AND GENOMIC mIU/mL MEDICINE Specimen Urine Performing Organization Address City/[facility] Centercode Phone Number [facility] DEPARTMENT OF PATHOLOGY AND [address] [place] [id number] GENOMIC MEDICINE Urinalysis screen and microscopy, with reflex to culture (07/11/2017 1:57 AM CDT) Specimen site Random void [facility] DEPARTMENT OF PATHOLOGY AND GENOMIC MEDICINE Color, UA Red [facility] DEPARTMENT OF PATHOLOGY AND GENOMIC MEDICINE Appearance, UA Cloudy [facility] DEPARTMENT OF PATHOLOGY AND GENOMIC MEDICINE Specific gravity, UA 1.018 1.001 - 1.035 [facility] DEPARTMENT OF PATHOLOGY AND GENOMIC MEDICINE pH, UA 6.0 5.0 - 8.5 [facility] DEPARTMENT OF PATHOLOGY AND GENOMIC MEDICINE Protein, UA 1+ (A) Negative [facility] DEPARTMENT OF PATHOLOGY AND GENOMIC MEDICINE Glucose, UA Negative Negative [facility] DEPARTMENT OF PATHOLOGY AND GENOMIC MEDICINE Ketones, UA Negative Negative [facility] DEPARTMENT OF PATHOLOGY AND GENOMIC MEDICINE Bilirubin, UA Negative Negative [facility] DEPARTMENT OF PATHOLOGY AND GENOMIC MEDICINE Blood, UA Moderate (A) Negative [facility] DEPARTMENT OF PATHOLOGY AND GENOMIC MEDICINE Nitrite, UA Positive (A) Negative [facility] DEPARTMENT OF PATHOLOGY AND GENOMIC MEDICINE Urobilinogen, UA 2.0 (A) <2.0 [facility] DEPARTMENT OF PATHOLOGY AND GENOMIC MEDICINE Leukocyte esterase, UA Large (A) Negative [facility] DEPARTMENT OF PATHOLOGY AND GENOMIC MEDICINE Epithelial cells, UA 3 /HPF [facility] DEPARTMENT OF PATHOLOGY AND GENOMIC MEDICINE WBC, UA >180 (H) 0 - 4 /HPF [facility] DEPARTMENT OF PATHOLOGY AND GENOMIC MEDICINE RBC, UA 7 (H) 0 - 5 /HPF [facility] DEPARTMENT OF PATHOLOGY AND GENOMIC MEDICINE Bacteria, UA Many (A) None seen [facility] DEPARTMENT OF PATHOLOGY AND GENOMIC MEDICINE Yeast, UA None seen [facility] DEPARTMENT OF PATHOLOGY AND GENOMIC MEDICINE Yeast with pseudohyphae, UA None seen [facility] DEPARTMENT OF PATHOLOGY AND GENOMIC MEDICINE Specimen Urine Performing Organization Address City/[facility] Centercode Phone Number [facility] DEPARTMENT OF PATHOLOGY AND [address] [place] [address] Gram stain (07/11/2017 1:57 AM CDT) Gram stain result Many WBC's [facility] DEPARTMENT OF PATHOLOGY Many Gram positive cocci in clusters AND GENOMIC MEDICINE Comment: Specimen Information Specimen Source: Urine Specimen Site: Random void Specimen Urine - Random void Performing Organization Address City/[facility] Centercode Phone Number [facility] DEPARTMENT OF PATHOLOGY AND [address] [place] [address] Urine culture (07/11/2017 1:57 AM CDT) Urine culture isolate Staphylococcus aureus [facility] DEPARTMENT OF 10-5 cfu/ml PATHOLOGY [...] RAH 1 mcg/mL: Susceptible Performing Organization Address [facility] Centercode Phone Number [facility] DEPARTMENT OF PATHOLOGY AND [address] [place] [address] GENOMIC MEDICINE XR Knee 1 Or 2 Vw Right (07/06/2017 2:34 AM CDT) Narrative Performed At EXAM:XR KNEE 1 OR 2 VW RIGHT [facility] CLINICAL HISTORY:RECENT TRAUMAKNEE COMPARISON:None. IMPRESSION: 1.No evidence of acute displaced right knee fracture or dislocation. No significant joint effusion. Question of mild medial soft tissue swelling. [facility]-[id number] Procedure Note Interface, Radiology Results Incoming - 07/06/2017 2:38 AM CDT EXAM: XR KNEE 1 OR 2 VW RIGHT CLINICAL HISTORY: RECENT TRAUMA KNEE COMPARISON: None. IMPRESSION: 1. No evidence of acute displaced right knee fracture or dislocation. No significant joint effusion. Question of mild medial soft tissue swelling. [facility]-[id number] Performing Organization Address [facility] Centercowv Phone Number [facility] [address] [place] [address] after 05/13/2017 Advance Directives Patient has advance care planning documents on file. For more information, please contact:Sergio Padron[address] [place] [id number]
--- NOTE | 2018-05-15 01:06 | EDPHYS ---
Physician Documentation [facility] Name: Dayami Espinosa Age: 48 yrs Sex: Female : 1970 Arrival Date: 05/14/2018 Time: 23:16 Bed 5 Private MD: ED Physician Darrell Mc HPI: 05/14 23:43 This 48 yrs old Female presents to ER via Ambulatory with complaints of snw Dizziness, Nausea. 23:43 The patient presents with lightheadedness. Onset: The symptoms/episode began/occurred snw suddenly, and improved recurred mildly tonight per report. Context: occurred at an unknown location, occurred while the patient was standing. Associated signs and symptoms: Pertinent positives: nausea. Severity of symptoms: At their worst the symptoms were very mild. Patient's baseline: Neuro: alert and fully oriented. The patient has experienced similar episodes in the past. It is unknown whether or not the patient has recently seen a physician. Historical: - Allergies: 23:24 Pseudoephedrine; la1 23:24 Amoxicillin; la1 - Home Meds: 23:24 Depakote 250 mg Oral TbEC 1 tab in the morning for Bipolar Disorder in Remission la1 [Active]; Depakote 500 mg Oral TbEC nightly [Active]; - PMHx: 23:24 Anemia; Bipolar disorder; UTI; la1 - Immunization history:: Adult Immunizations up to date. - Social history:: Smoking status: Patient uses tobacco products, smokes one-half pack cigarettes per day. - Ebola Screening: : No symptoms or risks identified at this time. ROS: 23:42 Eyes: Negative for injury, pain, redness, and discharge, ENT: Negative for injury, snw pain, and discharge, Neck: Negative for injury, pain, and swelling, Cardiovascular: Negative for chest pain, palpitations, and edema, Respiratory: Negative for shortness of breath, cough, wheezing, and pleuritic chest pain. 23:42 Back: Negative for injury and pain, : Negative for injury, bleeding, discharge, and swelling, MS/Extremity: Negative for injury and deformity, Skin: Negative for injury, rash, and discoloration. 23:42 Constitutional: Positive for malaise. 23:42 Abdomen/GI: Positive for nausea. 23:42 Neuro: Positive for lightheadedness. Exam: 23:42 Head/Face: Normocephalic, atraumatic. Eyes: Pupils equal round and reactive to light, snw extra-ocular motions intact. Lids and lashes normal. Conjunctiva and sclera are non-icteric and not injected. Cornea within normal limits. Periorbital areas with no swelling, redness, or edema. ENT: Nares patent. No nasal discharge, no septal abnormalities noted. Tympanic membranes are normal and external auditory canals are clear. Oropharynx with no redness, swelling, or masses, exudates, or evidence of obstruction, uvula midline. Mucous membranes moist. Neck: Trachea midline, no thyromegaly or masses palpated, and no cervical lymphadenopathy. Supple, full range of motion without nuchal rigidity, or vertebral point tenderness. No Meningismus. Chest/axilla: Normal chest wall appearance and motion. Nontender with no deformity. No lesions are appreciated. Cardiovascular: Regular rate and rhythm with a normal S1 and S2. No gallops, murmurs, or rubs. Normal PMI, no JVD. No pulse deficits. Respiratory: Lungs have equal breath sounds bilaterally, clear to auscultation and percussion. No rales, rhonchi or wheezes noted. No increased work of breathing, no retractions or nasal flaring. Abdomen/GI: Soft, non-tender, with normal bowel sounds. No distension or tympany. No guarding or rebound. No evidence of tenderness throughout. Back: No spinal tenderness. No costovertebral tenderness. Full range of motion. Skin: Warm, dry with normal turgor. Normal color with no rashes, no lesions, and no evidence of cellulitis. MS/ Extremity: Pulses equal, no cyanosis. Neurovascular intact. Full, normal range of motion. Neuro: Awake and alert, GCS 15, oriented to person, place, time, and situation. Cranial nerves II-XII grossly intact. Motor strength 5/5 in all extremities. Sensory grossly intact. Cerebellar exam normal. Normal gait. 23:42 Constitutional: The patient appears non-toxic, frail, listless. Vital Signs: 23:24 BP 111 / 85; Pulse 97; Resp 18; Temp 98.7(O); Pulse Ox 97% ; Weight 46.72 kg; Height 5 la1 ft. 3 in. (160.02 cm); 05/15 00:10 BP 108 / 64 Supine; Pulse 86; lp1 00:12 BP 99 / 75 Sitting; Pulse 94; lp1 00:15 BP 110 / 77 Standing; Pulse 110; lp1 00:52 BP 83 / 64; Pulse 76; Resp 16; Pulse Ox 98% on R/A; ed1 05/14 23:24 Body Mass Index 18.25 (46.72 kg, 160.02 cm) la1 MDM: 05/14 23:33 Patient medically screened. snw 05/15 01:05 Data reviewed: vital signs, nurses notes. Data interpreted: Pulse oximetry: on room air snw is 98 %. Interpretation: normal. Counseling: I had a detailed discussion with the patient and/or guardian regarding: the historical points, exam findings, and any diagnostic results supporting the discharge/admit diagnosis, the need for outpatient follow up, to return to the emergency department if symptoms worsen or persist or if there are any questions or concerns that arise at home. Special discussion: Based on the history and exam findings, there is no indication for further emergent testing or inpatient evaluation. I discussed with the patient/guardian the need to see the primary care provider for further evaluation of the symptoms. 05/15 00:13 Order name: Glucose, Ancillary Testing; Complete Time: 00:28 EDMS 05/14 23:33 Order name: FSBS; Complete Time: 00:17 snw 05/14 23:33 Order name: Orthostatics; Complete Time: 00:17 snw Administered Medications: No medications were administered Point of Care Testing: Blood Glucose: 00:12 Blood Glucose: 104 mg/dL; lt1 Ranges: Critical Glucose Levels:Adult <50 mg/dl or >400 mg/dl <40 mg/dl or >180 mg/dl Disposition: 09:03 Co-signature as Attending Physician, Darrell Mc MD I agree with the assessment and sybil plan of care. Disposition: 05/15/18 01:05 Discharged to Home. Impression: Dizziness and giddiness. - Condition is Stable. - Discharge Instructions: Dizziness, Lars Maneuver Self-Care. - Medication Reconciliation Form, Thank You Letter, Antibiotic Education, Prescription Opioid Use form. - Follow up: Private Physician; When: 1 - 2 days; Reason: Recheck today's complaints, Continuance of care, Re-evaluation by your physician. Follow up: Emergency Department; When: As needed; Reason: Worsening of condition. Signatures: Darrell Mc MD MD cha Therrien, Shelly, VISUAL MERCHANDISE MANAGER-C VISUAL MERCHANDISE MANAGER-Csnw Salud Rivera, RN RN ed1 Toro Lay RN RN la1 Corrections: (The following items were deleted from the chart) 01:16 01:05 05/15/2018 01:05 Discharged to Home. Impression: Dizziness and giddiness. ed1 Condition is Stable. Forms are Medication Reconciliation Form, Thank You Letter, Antibiotic Education, Prescription Opioid Use. Follow up: Private Physician; When: 1 - 2 days; Reason: Recheck today's complaints, Continuance of care, Re-evaluation by your physician. Follow up: Emergency Department; When: As needed; Reason: Worsening of condition. snw
--- NOTE | 2018-05-15 01:06 | ER ---
Nurse's Notes [facility] Name: Dayami Espinosa Age: 48 yrs Sex: Female : 1970 Arrival Date: 05/14/2018 Time: 23:16 Bed 5 Private MD: Diagnosis: Dizziness and giddiness Presentation: 05/14 23:23 Presenting complaint: Patient states: at about 2000 I got dizzy and nauseous, it lasted la1 an hour, went away, and now its coming back. Transition of care: patient was not received from another setting of care. Onset of symptoms was May 14, 2018. Risk Assessment: Do you want to hurt yourself or someone else? Patient reports no desire to harm self or others. Initial Sepsis Screen: Does the patient meet any 2 criteria? No. Patient's initial sepsis screen is negative. Does the patient have a suspected source of infection? No. Patient's initial sepsis screen is negative. Care prior to arrival: None. 23:23 Method Of Arrival: Ambulatory la1 23:23 Acuity: JAZMIN 3 la1 Historical: - Allergies: 23:24 Pseudoephedrine; la1 23:24 Amoxicillin; la1 - Home Meds: 23:24 Depakote 250 mg Oral TbEC 1 tab in the morning for Bipolar Disorder in Remission la1 [Active]; Depakote 500 mg Oral TbEC nightly [Active]; - PMHx: 23:24 Anemia; Bipolar disorder; UTI; la1 - Immunization history:: Adult Immunizations up to date. - Social history:: Smoking status: Patient uses tobacco products, smokes one-half pack cigarettes per day. - Ebola Screening: : No symptoms or risks identified at this time. Screenin:30 Abuse screen: Denies threats or abuse. Denies injuries from another. Nutritional ed1 screening: No deficits noted. Tuberculosis screening: No symptoms or risk factors identified. Fall Risk None identified. Assessment: 23:30 General: Appears in no apparent distress. Behavior is calm, cooperative. Pain: Denies ed1 pain. 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 Cardiovascular: Denies chest pain, Heart tones S1 S2 present. Respiratory: Airway is patent Respiratory effort is even, unlabored, Respiratory pattern is regular, symmetrical, Breath sounds are clear bilaterally. GI: Abdomen is non-distended, Bowel sounds present X 4 quads. Abd is soft and non tender X 4 quads. Reports nausea. : No signs and/or symptoms were reported regarding the genitourinary system. EENT: No signs and/or symptoms were reported regarding the EENT system. Derm: Skin is intact, is healthy with good turgor, Skin is dry, Skin is normal, Skin temperature is warm. Musculoskeletal: Circulation, motion, and sensation intact. 05/15 00:52 Reassessment: Patient appears in no apparent distress at this time. Patient and/or ed1 family updated on plan of care and expected duration. Pain level reassessed. Pt lying in bed, eyes closed. Vital Signs: 05/14 23:24 BP 111 / 85; Pulse 97; Resp 18; Temp 98.7(O); Pulse Ox 97% ; Weight 46.72 kg; Height 5 la1 ft. 3 in. (160.02 cm); 05/15 00:10 BP 108 / 64 Supine; Pulse 86; lp1 00:12 BP 99 / 75 Sitting; Pulse 94; lp1 00:15 BP 110 / 77 Standing; Pulse 110; lp1 00:52 BP 83 / 64; Pulse 76; Resp 16; Pulse Ox 98% on R/A; ed1 02 23:24 Body Mass Index 18.25 (46.72 kg, 160.02 cm) la1 ED Course: 05/14 23:16 Patient arrived in ED. es 23:23 Triage completed. la1 23:24 Arm band placed on right wrist. la1 23:27 Zarina Nava FNP-C is [facility]. snw 23:27 Darrell Mc MD is Attending Physician. snw 23:30 Patient has correct armband on for positive identification. Placed in gown. Bed in low ed1 position. Call light in reach. Side rails up X2. teletypesetter monitor on. Pulse ox on. NIBP on. 23:39 Salud Rivera, RN is Primary Nurse. ed1 05/15 00:53 Awaiting re-evaluation by ER provider. ed1 01:16 No provider procedures requiring assistance completed. Patient did not have IV access ed1 during this emergency room visit. Administered Medications: No medications were administered Point of Care Testing: Blood Glucose: 00:12 Blood Glucose: 104 mg/dL; lt1 Ranges: Outcome: 01:05 Discharge ordered by MD. fung 01:16 Discharged to home ambulatory. ed1 01:16 Condition: good 01:16 Discharge instructions given to patient, Instructed on discharge instructions, follow up and referral plans. Demonstrated understanding of instructions, follow-up care. 01:16 Patient left the ED. ed1 Signatures: Zarina Nava, GRIZZLYMAN-C GRIZZLYMAN-Csnw Jessie Jett Erika RN RN ed1 Patrizia Vincent RN RN lp1 Toro Lay, RN RN la1 Coty Padilla lt1
== END 2018-05-15 01:16 | disposition home or self-care (01) ==
LOC: ER 23:13
DX: R42 Dizziness and giddiness (principal); F31.9 Bipolar disorder, unspecified; F17.210 Nicotine dependence, cigarettes, uncomplicated; F31.70 Bipolar disorder, currently in remission, most recent episode unspecified; Z88.1 Allergy status to other antibiotic agents; Z88.8 Allergy status to other drugs, medicaments and biological substances
CPT/HCPCS: 82962; 99284

== ENCOUNTER 2018-05-21 05:50 | Emergency (ER) | payer SELFPAY ==
--- OUTSIDE RECORDS SUMMARY | 2018-05-21 05:52 | XMS REPORT | Clinical Summary ---
:1970 Author Organization [facility] Address [address] [place] [address] Care Team Providers Name Role Phone Sharpless [...] constipation; Acute superficial gastritis without hemorrhage after 05/20/2017 Social History Tobacco Use Types Packs/Day Years [...] Not on file Results Not on fileafter 05/20/2017
--- OUTSIDE RECORDS SUMMARY | 2018-05-21 05:52 | XMS REPORT | Clinical Summary ---
:1970 Author Organization [facility] Address [address] [place] [address] Care Team Providers Name Role Phone Asked, [...] right knee MD Luisito (Primary Dx) after 05/20/2017 Social History Tobacco Use Types [...] procedure are in the results section. after 05/20/[address] Renal Stone Protocol (07/11/2017 2:53 [...] is of unclear etiology and clinical significance. [facility]-[id number] Procedure Note Interface, Radiology Results Incoming - [...] is of unclear etiology and clinical significance. [facility]-[id number] Performing Organization Address [facility] Centercode Phone Number [facility] [address] [place] [address] hCG qualitative, urine screen (07/11/2017 2:29 AM CDT) [facility] qualitative, urine NegativeComment: [facility] DEPARTMENT OF Sensitivity of HCG test: 25 PATHOLOGY AND GENOMIC mIU/mL MEDICINE Specimen Urine Performing Organization Address City/[facility] Centercode Phone Number [facility] DEPARTMENT OF PATHOLOGY AND [address] [place] [address] GENOMIC MEDICINE Urinalysis screen and microscopy, with reflex to culture (07/11/2017 1:57 AM CDT) Specimen site Random void [facility] DEPARTMENT OF PATHOLOGY AND GENOMIC MEDICINE Color, UA Red [facility] DEPARTMENT OF PATHOLOGY AND GENOMIC MEDICINE Appearance, UA Cloudy [facility] DEPARTMENT OF PATHOLOGY AND GENOMIC MEDICINE Specific gravity, UA 1.018 1.001 - 1.035 [facility] DEPARTMENT OF PATHOLOGY AND GENOMIC MEDICINE pH, UA 6.0 5.0 - 8.5 [facility] DEPARTMENT OF PATHOLOGY AND GENOMIC MEDICINE Protein, UA 1+ (A) Negative [facility] DEPARTMENT OF PATHOLOGY AND GENOMIC MEDICINE Glucose, UA Negative Negative [facility] DEPARTMENT OF PATHOLOGY AND GENOMIC MEDICINE Ketones, UA Negative Negative [facility] DEPARTMENT OF PATHOLOGY AND GENOMIC MEDICINE Bilirubin, UA Negative Negative [facility] DEPARTMENT OF PATHOLOGY AND GENOMIC MEDICINE Blood, UA Moderate (A) Negative [facility] DEPARTMENT OF PATHOLOGY AND GENOMIC MEDICINE Nitrite, UA Positive (A) Negative [facility] DEPARTMENT OF PATHOLOGY AND GENOMIC MEDICINE Urobilinogen, UA 2.0 (A) <2.0 [facility] DEPARTMENT OF PATHOLOGY AND GENOMIC MEDICINE Leukocyte esterase, UA Large (A) Negative [facility] DEPARTMENT OF PATHOLOGY AND GENOMIC MEDICINE Epithelial cells, UA 3 /HPF [facility] DEPARTMENT OF PATHOLOGY AND GENOMIC MEDICINE WBC, UA >180 (H) 0 - 4 /HPF [facility] DEPARTMENT OF PATHOLOGY AND GENOMIC MEDICINE RBC, UA 7 (H) 0 - 5 /HPF [facility] DEPARTMENT OF PATHOLOGY AND GENOMIC MEDICINE Bacteria, UA Many (A) None seen [facility] DEPARTMENT OF PATHOLOGY AND GENOMIC MEDICINE Yeast, UA None seen [facility] DEPARTMENT OF PATHOLOGY AND GENOMIC MEDICINE Yeast with pseudohyphae, UA None seen [facility] DEPARTMENT OF PATHOLOGY AND GENOMIC MEDICINE Specimen Urine Performing Organization Address City/[facility]ercode Phone Number [facility] DEPARTMENT OF PATHOLOGY AND [address] [place] [address] Gram stain (07/11/2017 1:57 AM CDT) Gram stain result Many WBC's [facility] DEPARTMENT OF PATHOLOGY Many Gram positive cocci in clusters AND GENOMIC MEDICINE Comment: Specimen Information Specimen Source: Urine Specimen Site: Random void Specimen Urine - Random void Performing Organization Address City/[facility] Centercode Phone Number [facility] DEPARTMENT OF PATHOLOGY AND [address] [place] [address] Urine culture (07/11/2017 1:57 AM CDT) Urine culture isolate Staphylococcus aureus [facility] DEPARTMENT OF 10-5 cfu/ml PATHOLOGY [...] RAH 1 mcg/mL: Susceptible Performing Organization Address [facility] Centercode Phone Number [facility] DEPARTMENT OF PATHOLOGY AND [address] [place] [address] GENOMIC MEDICINE XR Knee 1 Or 2 Vw Right (07/06/2017 2:34 AM CDT) Narrative Performed At EXAM:XR KNEE 1 OR 2 VW RIGHT [facility] CLINICAL HISTORY:RECENT TRAUMAKNEE COMPARISON:None. IMPRESSION: 1.No evidence of acute displaced right knee fracture or dislocation. No significant joint effusion. Question of mild medial soft tissue swelling. [facility]-[id number] Procedure Note Interface, Radiology Results Incoming - 07/06/2017 2:38 AM CDT EXAM: XR KNEE 1 OR 2 VW RIGHT CLINICAL HISTORY: RECENT TRAUMA KNEE COMPARISON: None. IMPRESSION: 1. No evidence of acute displaced right knee fracture or dislocation. No significant joint effusion. Question of mild medial soft tissue swelling. [facility]-[id number] Performing Organization Address [facility] Centercomn Phone Number [facility] [address] [place] [address] after 05/20/2017 Advance Directives Patient has advance care planning documents on file. For more information, please contact:Sergio Padron[address] [place] [phone]
--- OUTSIDE RECORDS SUMMARY | 2018-05-21 05:53 | XMS REPORT ---
:1970 [facility] Address [address] [place] [address] Care Team Providers Name Role Phone UNKNOWN, [...] 2017-07-02 Emergency E [facility] [id number] 08:16:00 08:16:00
--- OUTSIDE RECORDS SUMMARY | 2018-05-21 05:53 | XMS REPORT | Continuity of Care Document ---
:1970 Author Organization Interface Problems Problem Status Onset Classification Date Comments Source Date Reported HPI Active 04/13/[address] FACIAL FX Active 02/01/[address] DIZZINESS Active 02/01/[address] Left lower 07/07/19 10/04/2017 [facility] quadrant pain 18 [facility] Lower abdominal 06/29/19 10/04/2017 [facility] pain [place] FLANK PAIN Active 06/29/19 [place] [id number] [place] Nicotine 10/04/2017 [facility] dependence, [place] unspecified, uncomplicated NONTRAUMATIC Active [facility] CHRONIC SUBDURAL Medical HEMORRHAGE Center Medications Medication Details Route Status Patient Ordering Order Source Instructions Provider Date tramadol 50 mg=1 No Longer hydrochloride 50 tab, PO, Active 018 [facility] Oral Tablet Q6H, PRN [facility] Pain, X 3 day, # 12 tab, 0 Refill(s) Ondansetron 4 MG 4 mg=1 Active Disintegrating tab, PO, 018 [facility] Tablet [Zofran] BID, PRN [facility] Nausea and Vomiting, Dissolve tab under tongue, # 10 tab, 0 Refill(s) Saline Flush 0.9% 10 mL, Inactive Route: [address] [place] [address] IVP, Drug City Form: INJ, Dosing Weight [...] CT BRAIN WITHOUT CONTRAST 04/13 - [facility] contrast CT contrast CT /2019 [facility] DATE: 04/13/2018 Read by: Lacey [...] day. Brain/Neck Brain/Neck EXAM: CTA BRAIN 01/31 [facility] CTA CTA /2018 - Medical EXAM: [...] CT HEAD WITH AND WITHOUT CONTRAST 01/[address] [facility] contrast CT contrast CT /2018 - Medical This report was dictated by a River [employer]/Fellow. I have personally reviewed the images as [...] 1view EXAM: XR CHEST 1 VIEW 01/31 [facility] DX DX /2018 - Medical This report was dictated by a [employer]/Fellow. I have personally reviewed the images as [...] unit/L 73 - 393 06/28 [facility] CHEM PANEL Globulin 3.5 g/dL 2.7 - 4.2 06/28 [facility] CHEM PANEL A/G Ratio 1.1 0.7 - 1.6 06/28 [facility] CHEM PANEL B/C Ratio 13 6 - 25 06/28 [facility] CHEM PANEL AGAP 13.6 meq/L 10.0 - 06/28 20.0 [facility] CHEM PANEL Total 7.2 g/dL 6.4 - 8.4 06/28 [facility] CHEM PANEL Alk Phos 56 unit/L 39 - 136 06/28 [facility] CHEM PANEL Bili Total 0.2 mg/dL 0.2 - 1.3 06/28 [facility] CHEM PANEL Potassium 3.6 meq/L 3.5 - 5.1 06/28 Lvl [facility] CHEM PANEL Sodium Lvl 139 meq/L 135 - 145 06/28 [facility] CHEM PANEL Calcium Lvl 8.9 mg/dL 8.5 - 10.5 06/28 [facility] CHEM PANEL Chloride Lvl 105 meq/L 95 - 109 06/28 [facility] CHEM PANEL eGFR 107 06/28 [...] is not recommended in the following populations: [address] Individuals with unstable creatinine concentrations, including [...] unit/L 0 - 65 06/28 [facility] CHEM PANEL AST 20 unit/L 0 - 37 06/28 [facility] CHEM PANEL CO2 24 meq/L 24 - 32 06/28 [facility] CHEM PANEL Albumin Lvl 3.7 g/dL 3.5 - 5.0 06/28 [facility] CHEM PANEL Creatinine 0.63 mg/dL 0.50 - 06/28 MH Lvl 1.40 [facility] CHEM PANEL BUN 8 mg/dL 7 - 22 06/28 [facility] CHEM PANEL Glucose Lvl 107 mg/dL 70 - 99 06/28 [facility] ENDOCRINOLO S Preg Negative Negative 06/28 [facility]* [facility] (06/28/17 6:15 AM) HEMATOLOGY RDW 15.4 % 11.5 - 06/28 MH 14.5 [facility] HEMATOLOGY MPV 7.7 fL 7.4 - 10.4 06/28 [facility] HEMATOLOGY Platelet 355 K/CMM 133 - 450 06/28 [facility] HEMATOLOGY MCV 87.1 fL 80.0 - 06/28 98.0 [facility] HEMATOLOGY Hct 37.9 % 36.0 - 06/28 MH 48.0 [facility] HEMATOLOGY MCHC 33.3 g/dL 32.0 - 06/28 MH 36.0 [facility] HEMATOLOGY MCH 29.0 pg 27.0 - 06/28 MH 31.0 [facility] HEMATOLOGY Hgb 12.6 g/dL 12.0 - 06/28 MH 16.0 [facility] HEMATOLOGY RBC 4.35 M/CMM 4.20 - 06/28 MH 5.40 [facility] HEMATOLOGY WBC 10.7 K/CMM 3.7 - 10.4 06/28 [facility] HEMATOLOGY Monocytes # 0.8 K/CMM 0.0 - 0.8 06/28 [facility] HEMATOLOGY Eosinophils 0.2 K/CMM 0.0 - 0.5 06/28 MH # /2017 [facility] HEMATOLOGY Segs 72.1 % 45.0 - 06/28 MH 75.0 [facility] HEMATOLOGY Segs-Bands # 7.7 K/CMM 1.5 - 8.1 06/28 [facility] HEMATOLOGY Lymphocytes 2.0 K/CMM 1.0 - 5.5 06/28 # /2017 [facility] HEMATOLOGY Basophils 0.4 % 0.0 - 1.0 06/28 [facility] HEMATOLOGY Monocytes 7.2 % 2.0 - 12.0 06/28 [facility] HEMATOLOGY Eosinophils 1.7 % 0.0 - 4.0 06/28 [facility] HEMATOLOGY Lymphocytes 18.6 % 20.0 - 06/28 MH 40.0 [facility] URINE AND UA Color Colorless Yellow 06/28 [facility] *NA* [facility] (06/28/17 6:15 AM) URINE AND UA Spec Grav 1.002 <=1.030 06/28 [facility] URINE AND UA Turbidity Clear Clear 06/28 [facility] (06/28/17 6:15 AM) [facility] URINE AND UA pH 6.0 5.0 - 8.0 06/28 [facility] URINE AND UA Glucose Negative Negative 06/28 [facility] mg/dL mg/dL [facility] URINE AND UA Protein Negative Negative 06/28 [facility] mg/dL mg/dL [facility] URINE AND UA Blood Moderate Negative 06/28 [facility] *ABN* [facility] (06/28/17 6:15 AM) URINE AND UA Bili Negative Negative 06/28 [facility] *NA* [facility] (06/28/17 6:15 AM) URINE AND UA Nitrite Negative Negative 06/28 [facility] (06/28/17 6:15 AM) [facility] URINE AND UA Hyal Cast 1 /LPF 0 - 2 06/28 STOOL [facility] URINE AND UA Mucus Few /LPF None Seen 06/28 [facility] /LPF [facility] URINE AND UA <=1.0 0.1 - 1.0 06/28 [facility] Urobilinogen mg/dL [facility] URINE AND UA Ketones Negative 06/28 [facility] URINE AND UA Bacteria Occasional None Seen 06/28 [facility] /HPF /HPF /2017 [facility] URINE AND UA Sq Epi Occasional Few /LPF 06/28 [facility] /LPF /2017 [facility] URINE AND UA Leuk Est Negative Negative 06/28 STOOL /2017 [facility] RBC 2 /HPF 0 - 2 06/28 STOOL [facility] URINE AND UA WBC 1 /HPF 0 - 5 06/28 STOOL [facility] Pelvis Pelvis EXAM: US PELVIS TRANSABDOMINAL 06/28 - Complete US Complete US /2017 - [facility] DATE: 06/28/2017 8:28 AM CDT [...] Comments Source Systolic (mm Hg) 89 06/28/2017 [facility] Diastolic (mm Hg) 51 06/28/2017 [facility] Temperature Oral (F) 98.1 F 06/28/2017 [facility] Respitory Rate 16 06/28/2017 [facility] Heart Rate 78 06/28/2017 [facility] Respitory Rate 18 06/28/2017 [facility] Temperature Oral (F) 97.9 F 06/28/2017 [facility] Weight 45.5 06/28/2017 [facility] Heart Rate 81 06/28/2017 [facility] Systolic (mm Hg) 131 06/28/2017 [facility] Diastolic (mm Hg) 81 06/28/2017 [facility] Encounters Location Location Encounter Encounter Reason Attending ADM DC Status Source Details Type Number For Provider Date Date Visit [facility] Emergency [id number] Semaj 06/28 06/28 [place]LE[place]E [place] /2017 [facility] Procedures Procedure Code Date Perfomer Comments Source
[2018-05-21] MEDS ORDERED: ONDANSETRON 4 MG (ODT) TAB ONE (06:27)
[2018-05-21 06:35] LABS: Absolute Lymphocytes (CBC) 2.1 K/uL (0.7-4.9); Absolute Monocytes 0.7 K/uL (0.1-1.3); Absolute Neutrophil 5.6 K/uL (1.8-8.0); Basophils % 0.7 % (0-1.3); Eosinophils % 2.2 % (0-4.4); Hematocrit 33.6 % (36.0-45.0); Lymphocytes % 24.3 % (15.3-44.8); MPV 8.1 fL (7.6-11.3); Monocytes % 8.3 % (3.3-12.3); RBC Red Blood Cell Count 4.02 M/uL (3.86-4.86)
--- NOTE | 2018-05-21 07:11 | ER ---
Nurse's Notes [facility] Unit Name: Dayami Espinosa Age: 48 yrs Sex: Female : 1970 Arrival Date: 05/21/2018 Time: 05:50 Bed 2 Private MD: Diagnosis: Weakness;Dizziness and giddiness Presentation: 05/21 05:52 Presenting complaint: EMS states: Patient was at bus stop and did not feel good for lp1 about 2 hours, feeling like blood sugar was low with dizziness and nausea; Hx of hypoglycemia. Transition of care: patient was not received from another setting of care. Onset of symptoms was May 21, 2018 at 04:00. Risk Assessment: Do you want to hurt yourself or someone else? Patient reports no desire to harm self or others. Initial Sepsis Screen: Does the patient meet any 2 criteria? No. Patient's initial sepsis screen is negative. Does the patient have a suspected source of infection? No. Patient's initial sepsis screen is negative. Care prior to arrival: Glucose check: 91. 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 - Social history:: Smoking status: Patient/guardian denies using tobacco. - Ebola Screening: : No symptoms or risks identified at this time. Screenin:59 Abuse screen: Denies threats or abuse. Denies injuries from another. Nutritional lp1 screening: No deficits noted. Tuberculosis screening: No symptoms or risk factors identified. Fall Risk None identified. Assessment: 06:44 General: Appears in no apparent distress. Behavior is calm, cooperative. Pain: Denies ed1 pain. Neuro: Level of Consciousness is awake, alert, obeys commands, Oriented to person, place, time, situation, Reports dizziness, since 0400. Cardiovascular: Denies chest pain, Heart tones S1 S2 present. Respiratory: Airway is patent Respiratory effort is even, unlabored, Respiratory pattern is regular, symmetrical, Breath sounds are clear bilaterally. GI: Abdomen is non-distended, Bowel sounds present X 4 quads. Abd is soft and non tender X 4 quads. Reports nausea, Patient currently denies diarrhea, vomiting. : No signs and/or symptoms were reported regarding the genitourinary system. EENT: No signs and/or symptoms were reported regarding the EENT system. Derm: Skin is pink, warm \\T\\ dry. Musculoskeletal: Circulation, motion, and sensation intact. Range of motion: intact in all extremities. 07:15 Reassessment: Patient appears in no apparent distress at this time. Pt appears to be ph sleeping w/ equal and unlabored respirations, VSS. 08:10 Reassessment: Patient appears in no apparent distress at this time. Patient and/or ph family updated on plan of care and expected duration. Pain level reassessed. Patient is alert, oriented x 3, equal unlabored respirations, skin warm/dry/pink. Pt awakened for d/c, reports that nausea has improved, ambulated to restroom w/ steady gait. 08:33 Reassessment: Patient appears in no apparent distress at this time. Patient and/or ph family updated on plan of care and expected duration. Pain level reassessed. Patient is alert, oriented x 3, equal unlabored respirations, skin warm/dry/pink. Pt provided peanut butter, crackers and juice and d/c to [employer], states, " I will call a ride". Vital Signs: 05:55 BP 112 / 71; Pulse 82; Resp 18; Pulse Ox 100% on R/A; Weight 48.08 kg; Height 5 ft. 3 lp1 in. (160.02 cm); Pain 0/10; 06:44 BP 98 / 67; Pulse 74; Resp 15; Pulse Ox 98% on R/A; Pain 0/10; ed1 08:00 BP 104 / 72; Pulse 68; Resp 18; Temp 97.9; Pulse Ox 99% on R/A; Pain 0/10; ph 05:55 Body Mass Index 18.78 (48.08 kg, 160.02 cm) lp1 ED Course: 05:50 Patient arrived in ED. ds1 05:53 Jaylen Otto MD is Attending Physician. kdr 05:55 Triage completed. lp1 05:55 Arm band placed on left wrist. lp1 06:00 Patient has correct armband on for positive identification. Pulse ox on. NIBP on. lp1 06:04 Salud Rivera, RN is Primary Nurse. ed1 07:00 Primary Nurse role handed off by Salud Rivera, BENI ed1 08:09 Shelbie Robles, RN is Primary Nurse. ph 08:35 No provider procedures requiring assistance completed. Patient did not have IV access ph during this emergency room visit. Administered Medications: 06:17 Drug: Zofran 4 mg Route: PO; lp1 06:59 Follow up: Response: No adverse reaction; Nausea is decreased ed1 Point of Care Testing: Blood Glucose: 06:05 Blood Glucose: 98 mg/dL; ed1 Ranges: Outcome: 07:11 Discharge ordered by . kdr 08:36 Discharged to home ambulatory. ph 08:36 Condition: improved 08:36 Discharge instructions given to patient, Instructed on discharge instructions, follow up and referral plans. Demonstrated understanding of instructions, follow-up care. 08:36 Patient left the ED. ph Signatures: Jaylen Otto MD MD kdr Marjorie Caldwell ds1 Salud Rivera, BENI RN ed1 Patrizia Vincent RN RN lp1 Shelbie Robles RN RN ph
--- NOTE | 2018-05-21 07:11 | EDPHYS ---
Physician Documentation [facility] Name: Dayami Espinosa Age: 48 yrs Sex: Female : 1970 Arrival Date: 05/21/2018 Time: 05:50 Bed 2 Private MD: ED Physician Jaylen Otto HPI: 05/21 06:08 This 48 yrs old Female presents to ER via EMS with complaints of Nausea. kdr 06:08 The patient presents to the emergency department with nausea, that is mild. Onset: The kdr symptoms/episode began/occurred at an unknown time. Possible causes: unknown. The symptoms are aggravated by nothing. The symptoms are alleviated by nothing. Associated signs and symptoms: The patient has no apparent associated signs or symptoms. Severity of symptoms: At their worst the symptoms were mild in the emergency department the symptoms are unchanged. 06:10 The patient has experienced similar episodes in the past, a few times. The patient has kdr been recently seen by a physician: The patient has been recently seen at the [facility] Emergency Department. 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 - Social history:: Smoking status: Patient/guardian denies using tobacco. - Ebola Screening: : No symptoms or risks identified at this time. ROS: 06:10 Constitutional: Negative for fever, chills, and weight loss, Eyes: Negative for injury, kdr pain, redness, and discharge, Neck: Negative for injury, pain, and swelling, Cardiovascular: Negative for chest pain, palpitations, and edema, Respiratory: Negative for shortness of breath, cough, wheezing, and pleuritic chest pain, Back: Negative for injury and pain, : Negative for injury, bleeding, discharge, and swelling, MS/Extremity: Negative for injury and deformity, Skin: Negative for injury, rash, and discoloration, Neuro: Negative for headache, weakness, numbness, tingling, and seizure activity. Psych: Negative for depression, anxiety, suicide ideation, homicidal ideation, and hallucinations, Allergy/Immunology: Negative for hives, rash, and allergies, Endocrine: Negative for neck swelling, polydipsia, polyuria, polyphagia, and marked weight changes, The patient is concerned that her Blood sugar is low Hematologic/Lymphatic: Negative for swollen nodes, abnormal bleeding, and unusual bruising. 06:10 Abdomen/GI: Positive for nausea, Negative for nausea and vomiting, constipation, abdominal cramps, abdominal distension, anorexia, dysphagia, hematemesis, black/tarry stool, rectal pain, rectal bleeding, bowel incontinence. Exam: 06:10 Constitutional: This is a well developed, well nourished patient who is awake, alert, kdr and in no acute distress. Head/Face: Normocephalic, atraumatic. Eyes: Pupils equal round and reactive to light, extra-ocular motions intact. Lids and lashes normal. Conjunctiva and sclera are non-icteric and not injected. Cornea within normal limits. Periorbital areas with no swelling, redness, or edema. Neck: Trachea midline, no thyromegaly or masses palpated, and no cervical lymphadenopathy. Supple, full range of motion without nuchal rigidity, or vertebral point tenderness. No Meningismus. Chest/axilla: Normal chest wall appearance and motion. Nontender with no deformity. No lesions are appreciated. Cardiovascular: Regular rate and rhythm with a normal S1 and S2. No gallops, murmurs, or rubs. Normal PMI, no JVD. No pulse deficits. Respiratory: Lungs have equal breath sounds bilaterally, clear to auscultation and percussion. No rales, rhonchi or wheezes noted. No increased work of breathing, no retractions or nasal flaring. Abdomen/GI: Soft, non-tender, with normal bowel sounds. No distension or tympany. No guarding or rebound. No evidence of tenderness throughout. Back: No spinal tenderness. No costovertebral tenderness. Full range of motion. Skin: Warm, dry with normal turgor. Normal color with no rashes, no lesions, and no evidence of cellulitis. MS/ Extremity: Pulses equal, no cyanosis. Neurovascular intact. Full, normal range of motion. Neuro: Awake and alert, GCS 15, oriented to person, place, time, and situation. Cranial nerves II-XII grossly intact. Motor strength 5/5 in all extremities. Sensory grossly intact. Cerebellar exam normal. Normal gait. Psych: Awake, alert, with orientation to person, place and time. Behavior, mood, and affect are within normal limits. Vital Signs: 05:55 BP 112 / 71; Pulse 82; Resp 18; Pulse Ox 100% on R/A; Weight 48.08 kg; Height 5 ft. 3 lp1 in. (160.02 cm); Pain 0/10; 06:44 BP 98 / 67; Pulse 74; Resp 15; Pulse Ox 98% on R/A; Pain 0/10; ed1 08:00 BP 104 / 72; Pulse 68; Resp 18; Temp 97.9; Pulse Ox 99% on R/A; Pain 0/10; ph 05:55 Body Mass Index 18.78 (48.08 kg, 160.02 cm) lp1 MDM: 06:10 Data reviewed: vital signs, nurses notes, lab test result(s). Counseling: I had a kdr detailed discussion with the patient and/or guardian regarding: the historical points, exam findings, and any diagnostic results supporting the discharge/admit diagnosis, lab results, the need for outpatient follow up. 07:11 Patient medically screened. kdr 05/21 06:07 Order name: CBC with Diff; Complete Time: 06:41 kdr 02 06:07 Order name: Chem 7; Complete Time: 07:10 kdr Administered Medications: 06:17 Drug: Zofran 4 mg Route: PO; lp1 06:59 Follow up: Response: No adverse reaction; Nausea is decreased ed1 Point of Care Testing: Blood Glucose: 06:05 Blood Glucose: 98 mg/dL; ed1 Ranges: Critical Glucose Levels:Adult <50 mg/dl or >400 mg/dl <40 mg/dl or >180 mg/dl Disposition: 05/21/18 07:11 Discharged to Home. Impression: Weakness, Dizziness and giddiness. - Condition is Stable. - Discharge Instructions: Weakness, [id number], Dizziness, [id number]. - Medication Reconciliation Form, Thank You Letter form. - Follow up: Private Physician; When: 2 - 3 days; Reason: If symptoms return, Further diagnostic work-up, Recheck today's complaints, Continuance of care, Re-evaluation by your physician. - Problem is an acute exacerbation. - Symptoms have improved. Signatures: Dispatcher [employer] EDMS Jaylen Otto MD MD kdr Patrizia Vincent RN RN lp1 Shelbie Robles RN RN ph Salud Rivera RN ed1 Corrections: (The following items were deleted from the chart) 08:36 07:11 05/21/2018 07:11 Discharged to Home. Impression: Weakness; Dizziness and ph giddiness. Condition is Stable. Forms are Medication Reconciliation Form, Thank You Letter, Antibiotic Education, Prescription Opioid Use. Follow up: Private Physician; When: 2 - 3 days; Reason: If symptoms return, Further diagnostic work-up, Recheck today's complaints, Continuance of care, Re-evaluation by your physician. Problem is an acute exacerbation. Symptoms have improved. kdr
== END 2018-05-21 08:36 | disposition home or self-care (01) ==
LOC: ER 05:50
DX: R53.1 Weakness (principal); R42 Dizziness and giddiness; F31.70 Bipolar disorder, currently in remission, most recent episode unspecified; Z88.1 Allergy status to other antibiotic agents; Z88.8 Allergy status to other drugs, medicaments and biological substances
CPT/HCPCS: 36415; 80048; 82962; 85025; 99284

== ENCOUNTER 2018-05-22 00:08 | Emergency (ER) | payer SELFPAY ==
--- OUTSIDE RECORDS SUMMARY | 2018-05-22 00:11 | XMS REPORT | Continuity of Care Document ---
:1970 Author Organization Interface Problems Problem Status Onset Classification Date Comments Source Date Reported HPI Active 04/13/[address] FACIAL FX Active 02/01/[address] DIZZINESS Active 02/01/[address] Left lower 07/07/19 10/04/2017 [facility] quadrant pain [facility] Lower abdominal 06/29/19 10/04/2017 [facility] pain City FLANK PAIN Active 06/29/19 [place] [id number] City Nicotine 10/04/2017 [facility] dependence, City unspecified, uncomplicated NONTRAUMATIC Active [facility] CHRONIC SUBDURAL Medical HEMORRHAGE Center Medications Medication Details Route Status Patient Ordering Order Source Instructions Provider Date tramadol 50 mg=1 No Longer hydrochloride 50 tab, PO, Active 018 [facility] Oral Tablet Q6H, PRN [facility] Pain, X 3 day, # 12 tab, 0 Refill(s) Ondansetron 4 MG 4 mg=1 Active Disintegrating tab, PO, 018 [facility] Tablet [Zofran] BID, PRN [facility] Nausea and Vomiting, Dissolve tab under tongue, # 10 tab, 0 Refill(s) Saline Flush 0.9% 10 mL, Inactive Route: [address] [place] [address] IVP, Drug City Form: INJ, Dosing Weight [...] EXAM: CT BRAIN WITHOUT CONTRAST 04/13 - [facility] contrast CT contrast CT /2019 [facility] Center DATE: 04/13/2018 Read by: Lacey Akhtar [...] day. Brain/Neck Brain/Neck EXAM: CTA BRAIN 01/31 [facility] CTA CTA /2018 - Medical EXAM: [...] CT HEAD WITH AND WITHOUT CONTRAST 01/31 [facility] contrast CT contrast CT /2018 - Medical This report was dictated by a Head Custodian/Fellow. I have personally reviewed the images as [...] 1view EXAM: XR CHEST 1 VIEW 01/31 [facility] DX DX /2018 - Medical This report was dictated by a Head Custodian/Fellow. I have personally reviewed the images as [...] Lvl 172 unit/L 73 - 393 06/28 [facility] CHEM PANEL Globulin 3.5 g/dL 2.7 - 4.2 06/28 [facility] CHEM PANEL A/G Ratio 1.1 0.7 - 1.6 06/28 [facility] CHEM PANEL B/C Ratio 13 6 - 25 06/28 [facility] CHEM PANEL AGAP 13.6 meq/L 10.0 - 06/28 20.0 [facility] CHEM PANEL Total 7.2 g/dL 6.4 - 8.4 06/28 [facility] CHEM PANEL Alk Phos 56 unit/L 39 - 136 06/28 [facility] CHEM PANEL Bili Total 0.2 mg/dL 0.2 - 1.3 06/28 [facility] CHEM PANEL Potassium 3.6 meq/L 3.5 - 5.1 06/28 Lvl [facility] CHEM PANEL Sodium Lvl 139 meq/L 135 - 145 06/28 [facility] CHEM PANEL Calcium Lvl 8.9 mg/dL 8.5 - 10.5 06/28 [facility] CHEM PANEL Chloride Lvl 105 meq/L 95 - 109 06/28 [facility] CHEM PANEL eGFR 107 06/28 [...] is not recommended in the following populations: [address] Individuals with unstable creatinine concentrations, including [...] ALT 24 unit/L 0 - 65 06/28 [facility] CHEM PANEL AST 20 unit/L 0 - 37 06/28 [facility] CHEM PANEL CO2 24 meq/L 24 - 32 06/28 [facility] CHEM PANEL Albumin Lvl 3.7 g/dL 3.5 - 5.0 06/28 [facility] CHEM PANEL Creatinine 0.63 mg/dL 0.50 - 06/28 MH Lvl 1.40 [facility] CHEM PANEL BUN 8 mg/dL 7 - 22 06/28 [facility] CHEM PANEL Glucose Lvl 107 mg/dL 70 - 99 06/28 [facility] ENDOCRINOLO S Preg Negative Negative 06/28 [facility] (06/28/17 6:15 AM) HEMATOLOGY RDW 15.4 % 11.5 - 06/28 MH 14.5 [facility] HEMATOLOGY MPV 7.7 fL 7.4 - 10.4 06/28 [facility] HEMATOLOGY Platelet 355 K/CMM 133 - 450 06/28 [facility] HEMATOLOGY MCV 87.1 fL 80.0 - 06/28 98.0 [facility] HEMATOLOGY Hct 37.9 % 36.0 - 06/28 MH 48.0 [facility] HEMATOLOGY MCHC 33.3 g/dL 32.0 - 06/28 MH 36.0 [facility] HEMATOLOGY MCH 29.0 pg 27.0 - 06/28 MH 31.0 [facility] HEMATOLOGY Hgb 12.6 g/dL 12.0 - 06/28 MH 16.0 [facility] HEMATOLOGY RBC 4.35 M/CMM 4.20 - 06/28 MH 5.40 [facility] HEMATOLOGY WBC 10.7 K/CMM 3.7 - 10.4 06/28 [facility] HEMATOLOGY Monocytes # 0.8 K/CMM 0.0 - 0.8 06/28 [facility] HEMATOLOGY Eosinophils 0.2 K/CMM 0.0 - 0.5 06/28 MH # /2017 [facility] HEMATOLOGY Segs 72.1 % 45.0 - 06/28 MH 75.0 [facility] HEMATOLOGY Segs-Bands # 7.7 K/CMM 1.5 - 8.1 06/28 [facility] HEMATOLOGY Lymphocytes 2.0 K/CMM 1.0 - 5.5 06/28 # /2017 [facility] HEMATOLOGY Basophils 0.4 % 0.0 - 1.0 06/28 [facility] HEMATOLOGY Monocytes 7.2 % 2.0 - 12.0 06/28 [facility] HEMATOLOGY Eosinophils 1.7 % 0.0 - 4.0 06/28 [facility] HEMATOLOGY Lymphocytes 18.6 % 20.0 - 06/28 MH 40.0 [facility] URINE AND UA Color Colorless Yellow 06/28 [facility] *NA* [facility] (06/28/17 6:15 AM) URINE AND UA Spec Grav 1.002 <=1.030 06/28 [facility] URINE AND UA Turbidity Clear Clear 06/28 [facility] (06/28/17 6:15 AM) [facility] URINE AND UA pH 6.0 5.0 - 8.0 06/28 [facility] URINE AND UA Glucose Negative Negative 06/28 [facility] mg/dL mg/dL [facility] URINE AND UA Protein Negative Negative 06/28 [facility] mg/dL mg/dL [facility] URINE AND UA Blood Moderate Negative 06/28 [facility] *ABN* [facility] (06/28/17 6:15 AM) URINE AND UA Bili Negative Negative 06/28 [facility]NA* [facility] (06/28/17 6:15 AM) URINE AND UA Nitrite Negative Negative 06/28 [facility] (06/28/17 6:15 AM) [facility] URINE AND UA Hyal Cast 1 /LPF 0 - 2 06/28 [facility] URINE AND UA Mucus Few /LPF None Seen 06/28 [facility] /LPF [facility] URINE AND UA <=1.0 0.1 - 1.0 06/28 [facility] Urobilinogen mg/dL [facility] URINE AND UA Ketones Negative 06/28 [facility] URINE AND UA Bacteria Occasional None Seen 06/28 [facility] /HPF /HPF /2017 [facility] URINE AND UA Sq Epi Occasional Few /LPF 06/28 [facility] /LPF /2017 [facility] URINE AND UA Leuk Est Negative Negative 06/28 [facility] /2017 [facility] RBC 2 /HPF 0 - 2 06/28 [facility] URINE AND UA WBC 1 /HPF 0 - 5 06/28 [facility] Pelvis Pelvis EXAM: US PELVIS TRANSABDOMINAL 06/28 - Complete US Complete US /2017 - [facility] DATE: 06/28/2017 8:28 AM CDT [...] Comments Source Systolic (mm Hg) 89 06/28/2017 [facility] Diastolic (mm Hg) 51 06/28/2017 [facility] Temperature Oral (F) 98.1 F 06/28/2017 [facility] Respitory Rate 16 06/28/2017 [facility] Heart Rate 78 06/28/2017 [facility] Respitory Rate 18 06/28/2017 [facility] Temperature Oral (F) 97.9 F 06/28/2017 [facility] Weight 45.5 06/28/2017 [facility] Heart Rate 81 06/28/2017 [facility] Systolic (mm Hg) 131 06/28/2017 [facility] Diastolic (mm Hg) 81 06/28/2017 [facility] Encounters Location Location Encounter Encounter Reason Attending ADM DC Status Source Details Type Number For Provider Date Date Visit [facility] Emergency [id number] Semaj 06/28 06/28 [place] /2017 [facility] Procedures Procedure Code Date Perfomer Comments Source
--- OUTSIDE RECORDS SUMMARY | 2018-05-22 00:11 | XMS REPORT | Clinical Summary ---
:1970 Author Organization [facility] Address [address] [place] [address] Care Team Providers Name Role Phone Sharpless [...] constipation; Acute superficial gastritis without hemorrhage after 05/21/2017 Social History Tobacco Use Types Packs/Day Years [...] Not on file Results Not on fileafter 05/21/2017
--- OUTSIDE RECORDS SUMMARY | 2018-05-22 00:11 | XMS REPORT | Clinical Summary ---
:1970 Author Organization [facility] Address [address] [place] [address] Care Team Providers Name Role Phone Asked, [...] right knee MD Luisito (Primary Dx) after 05/21/2017 Social History Tobacco Use Types [...] procedure are in the results section. after 05/21/[address] Renal Stone Protocol (07/11/2017 2:53 [...] is of unclear etiology and clinical significance. [facility]-[id number] Procedure Note Interface, Radiology Results Incoming - [...] is of unclear etiology and clinical significance. [facility]-[id number] Performing Organization Address [facility] Phone Number [facility] [address] [place] [address] hCG qualitative, urine screen (07/11/2017 2:29 AM CDT) [facility] qualitative, urine NegativeComment: [facility] DEPARTMENT OF Sensitivity of HCG test: 25 PATHOLOGY AND GENOMIC mIU/mL MEDICINE Specimen Urine Performing Organization Address City/[facility] Phone Number [facility] DEPARTMENT OF PATHOLOGY AND [address] [place] [id number] GENOMIC MEDICINE Urinalysis screen and microscopy, with reflex to culture (07/11/2017 1:57 AM CDT) Specimen site Random void [facility] DEPARTMENT OF PATHOLOGY AND GENOMIC MEDICINE Color, UA Red [facility] DEPARTMENT OF PATHOLOGY AND GENOMIC MEDICINE Appearance, UA Cloudy [facility] DEPARTMENT OF PATHOLOGY AND GENOMIC MEDICINE Specific gravity, UA 1.018 1.001 - 1.035 [facility] DEPARTMENT OF PATHOLOGY AND GENOMIC MEDICINE pH, UA 6.0 5.0 - 8.5 [facility] DEPARTMENT OF PATHOLOGY AND GENOMIC MEDICINE Protein, UA 1+ (A) Negative [facility] DEPARTMENT OF PATHOLOGY AND GENOMIC MEDICINE Glucose, UA Negative Negative [facility] DEPARTMENT OF PATHOLOGY AND GENOMIC MEDICINE Ketones, UA Negative Negative [facility] DEPARTMENT OF PATHOLOGY AND GENOMIC MEDICINE Bilirubin, UA Negative Negative [facility] DEPARTMENT OF PATHOLOGY AND GENOMIC MEDICINE Blood, UA Moderate (A) Negative [facility] DEPARTMENT OF PATHOLOGY AND GENOMIC MEDICINE Nitrite, UA Positive (A) Negative [facility] DEPARTMENT OF PATHOLOGY AND GENOMIC MEDICINE Urobilinogen, UA 2.0 (A) <2.0 [facility] DEPARTMENT OF PATHOLOGY AND GENOMIC MEDICINE Leukocyte esterase, UA Large (A) Negative [facility] DEPARTMENT OF PATHOLOGY AND GENOMIC MEDICINE Epithelial cells, UA 3 /HPF [facility] DEPARTMENT OF PATHOLOGY AND GENOMIC MEDICINE WBC, UA >180 (H) 0 - 4 /HPF [facility] DEPARTMENT OF PATHOLOGY AND GENOMIC MEDICINE RBC, UA 7 (H) 0 - 5 /HPF [facility] DEPARTMENT OF PATHOLOGY AND GENOMIC MEDICINE Bacteria, UA Many (A) None seen [facility] DEPARTMENT OF PATHOLOGY AND GENOMIC MEDICINE Yeast, UA None seen [facility] DEPARTMENT OF PATHOLOGY AND GENOMIC MEDICINE Yeast with pseudohyphae, UA None seen [facility] DEPARTMENT OF PATHOLOGY AND GENOMIC MEDICINE Specimen Urine Performing Organization Address City/[facility] Phone Number [facility] DEPARTMENT OF PATHOLOGY AND [address] [place] [address] Gram stain (07/11/2017 1:57 AM CDT) Gram stain result Many WBC's [facility] DEPARTMENT OF PATHOLOGY Many Gram positive cocci in clusters AND GENOMIC MEDICINE Comment: Specimen Information Specimen Source: Urine Specimen Site: Random void Specimen Urine - Random void Performing Organization Address City/[facility] Phone Number [facility] DEPARTMENT OF PATHOLOGY AND [address] [place] [address] Urine culture (07/11/2017 1:57 AM CDT) Urine culture isolate Staphylococcus aureus [facility] DEPARTMENT OF 10-5 cfu/ml PATHOLOGY AND GENOMIC [...] mcg/mL: Susceptible Performing Organization Address [facility] Phone Number [facility] DEPARTMENT OF PATHOLOGY AND [address] [place] [address] GENOMIC MEDICINE XR Knee 1 Or 2 Vw Right (07/06/2017 2:34 AM CDT) Narrative Performed At EXAM:XR KNEE 1 OR 2 VW RIGHT RADIANT CLINICAL HISTORY:RECENT TRAUMAKNEE COMPARISON:None. IMPRESSION: 1.No evidence of acute displaced right knee fracture or dislocation. No significant joint effusion. Question of mild medial soft tissue swelling. [facility]-[id number] Procedure Note Interface, Radiology Results Incoming - 07/06/2017 2:38 AM CDT EXAM: XR KNEE 1 OR 2 VW RIGHT CLINICAL HISTORY: RECENT TRAUMA KNEE COMPARISON: None. IMPRESSION: 1. No evidence of acute displaced right knee fracture or dislocation. No significant joint effusion. Question of mild medial soft tissue swelling. [facility]-[id number] Performing Organization Address [facility] Hospital[facility]d Phone Number [facility] [address] [place] [address] after 05/21/2017 Advance Directives Patient has advance care planning documents on file. For more information, please contact:Sergio Padron[address] [place] [id number]
--- OUTSIDE RECORDS SUMMARY | 2018-05-22 00:12 | XMS REPORT ---
:1970 [facility] Address [address] [place] [address] Care Team Providers Name Role Phone UNKNOWN, REFFERING Primary Care Provider Unavailable Problems This patient has no known problems. Allergies, Adverse Reactions, Alerts This patient has no known allergies or adverse reactions. Medications This patient has no known medications. Encounters Start End Encounter Admission Attending Care Care Encounter Date/Time Date/Time Type Type Clinicians Facility Department ID 2017-07-02 2017-07-02 Emergency E [facility] MED [id number] 08:16:00 08:16:00
--- NOTE | 2018-05-22 02:33 | ER ---
Nurse's Notes [facility] Name: Dayami Espinosa Age: 48 yrs Sex: Female : 1970 Arrival Date: 05/22/2018 Time: 00:13 Bed 26 Private MD: Diagnosis: Right ankle pain Presentation: 05/22 00:44 Presenting complaint: EMS states: Pt was picked up at [facility], she c/o right ankle tl3 pain that radiates up her leg to her hip, pain has been present for one year. Transition of care: patient was not received from another setting of care. Onset of symptoms. Risk Assessment: Do you want to hurt yourself or someone else? Patient reports no desire to harm self or others. Initial Sepsis Screen: Does the patient meet any 2 criteria? No. Patient's initial sepsis screen is negative. Does the patient have a suspected source of infection? No. Patient's initial sepsis screen is negative. Care prior to arrival: None. 00:44 Method Of Arrival: EMS: [facility] tl3 00:44 Acuity: JAZMIN 4 tl3 Triage Assessment: 00:44 General: Appears in no apparent distress. comfortable, slender, unkempt, Behavior is tl3 calm, cooperative, appropriate for age. Pain: Complains of pain in right ankle. Pain: Pain began one year ago. EENT: No signs and/or symptoms were reported regarding the EENT system. Neuro: Level of Consciousness is awake, alert, obeys commands, Oriented to person, place, time, situation, Appropriate for age. Cardiovascular: Patient's skin is warm and dry. Respiratory: Airway is patent Respiratory effort is even, unlabored, Respiratory pattern is regular, symmetrical. GI: No signs and/or symptoms were reported involving the gastrointestinal system. : No signs and/or symptoms were reported regarding the genitourinary system. Derm: No signs and/or symptoms reported regarding the dermatologic system. Musculoskeletal: Swelling absent. 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 - Social history:: Smoking status: unknown. - Ebola Screening: : No symptoms or risks identified at this time. Screenin:31 Abuse screen: Denies threats or abuse. Denies injuries from another. Nutritional mg2 screening: No deficits noted. Tuberculosis screening: No symptoms or risk factors identified. Fall Risk None identified. Assessment: 00:49 Reassessment: No changes from previously documented assessment. tl3 02:48 Reassessment: patient still refusing to leave the room. discharged instructions given. mg2 security called by charge nurse. Vital Signs: 00:27 BP 114 / 66; Pulse 72; Resp 18; Pulse Ox 100% on R/A; mg2 01:37 BP 90 / 57; Pulse 66; Resp 18; Pulse Ox 100% on R/A; mg2 02:45 BP 105 / 60; Pulse 70; Resp 18; Pulse Ox 100% on R/A; mg2 01:37 patient is sleeping. mg2 ED Course: 00:13 Patient arrived in ED. ds1 00:22 Derrek Martines MD is Attending Physician. pkl 00:27 Arm band placed on. mg2 00:31 Asher Acosta RN is Primary Nurse. mg2 00:31 No provider procedures requiring assistance completed. mg2 00:46 Triage completed. tl3 00:49 Patient has correct armband on for positive identification. Bed in low position. Call tl3 light in reach. Side rails up X 1. Pulse ox on. NIBP on. Warm blanket given. Pillow given. 00:49 Patient did not have IV access during this emergency room visit. tl3 01:10 X-ray completed. Portable x-ray completed in exam room. Patient tolerated procedure kw well. 01:11 Ankle Right 3 View XRAY In Process Unspecified. EDMS Administered Medications: 02:44 Drug: Tylenol 650 mg Route: PO; mg2 02:44 Follow up: Response: No adverse reaction; Medication administered at discharge. mg2 Outcome: 02:32 Discharge ordered by . pkl 02:44 Discharged to home ambulatory. mg2 02:44 Condition: stable 02:44 Discharge instructions given to patient, Instructed on discharge instructions, follow up and referral plans. Demonstrated understanding of instructions, follow-up care. 02:52 Patient left the ED. mg2 Signatures: Dispatcher [employer] EDMS Conrad Pin, MD MD pkl Caldwell, Marjorie ds1 Josselin Ferrer Tammy RN RN tl3 Asher Acosta RN RN mg2
--- NOTE | 2018-05-22 02:34 | EDPHYS ---
Physician Documentation [facility] Name: Dayami Espinosa Age: 48 yrs Sex: Female : 1970 Arrival Date: 05/22/2018 Time: 00:13 Bed 26 Private MD: ED Physician Derrek Martines HPI: 05/22 01:08 This 48 yrs old Female presents to ER via EMS with unknown complaint. pkl 01:08 The patient presents with pain, that is acute. The complaints affect the right ankle. pkl Onset: The symptoms/episode began/occurred just prior to arrival. Context: The mechanism of injury is unknown. Associated signs and symptoms: The patient has no apparent associated signs or symptoms. 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 - Social history:: Smoking status: unknown. - Ebola Screening: : No symptoms or risks identified at this time. ROS: 01:08 Eyes: Negative for injury, pain, redness, and discharge, ENT: Negative for injury, pkl pain, and discharge, Neck: Negative for injury, pain, and swelling, Cardiovascular: Negative for chest pain, palpitations, and edema, Respiratory: Negative for shortness of breath, cough, wheezing, and pleuritic chest pain, Abdomen/GI: Negative for abdominal pain, nausea, vomiting, diarrhea, and constipation, Back: Negative for injury and pain, : Negative for injury, bleeding, discharge, and swelling. 01:08 MS/extremity: Positive for pain, of the right ankle. 01:08 Skin: Negative for rash. 01:08 Neuro: Negative for altered mental status. Exam: 01:08 Head/Face: Normocephalic, atraumatic. Eyes: Pupils equal round and reactive to light, pkl extra-ocular motions intact. Lids and lashes normal. Conjunctiva and sclera are non-icteric and not injected. Cornea within normal limits. Periorbital areas with no swelling, redness, or edema. ENT: Nares patent. No nasal discharge, no septal abnormalities noted. Tympanic membranes are normal and external auditory canals are clear. Oropharynx with no redness, swelling, or masses, exudates, or evidence of obstruction, uvula midline. Mucous membranes moist. Neck: Trachea midline, no thyromegaly or masses palpated, and no cervical lymphadenopathy. Supple, full range of motion without nuchal rigidity, or vertebral point tenderness. No Meningismus. Chest/axilla: Normal chest wall appearance and motion. Nontender with no deformity. No lesions are appreciated. Cardiovascular: Regular rate and rhythm with a normal S1 and S2. No gallops, murmurs, or rubs. Normal PMI, no JVD. No pulse deficits. Respiratory: Lungs have equal breath sounds bilaterally, clear to auscultation and percussion. No rales, rhonchi or wheezes noted. No increased work of breathing, no retractions or nasal flaring. Abdomen/GI: Soft, non-tender, with normal bowel sounds. No distension or tympany. No guarding or rebound. No evidence of tenderness throughout. Back: No spinal tenderness. No costovertebral tenderness. Full range of motion. Skin: Warm, dry with normal turgor. Normal color with no rashes, no lesions, and no evidence of cellulitis. Neuro: Awake and alert, GCS 15, oriented to person, place, time, and situation. Cranial nerves II-XII grossly intact. Motor strength 5/5 in all extremities. Sensory grossly intact. Cerebellar exam normal. Normal gait. 01:08 Musculoskeletal/extremity: Extremities: grossly normal except: noted in the right ankle: pain. Vital Signs: 00:27 BP 114 / 66; Pulse 72; Resp 18; Pulse Ox 100% on R/A; mg2 01:37 BP 90 / 57; Pulse 66; Resp 18; Pulse Ox 100% on R/A; mg2 02:45 BP 105 / 60; Pulse 70; Resp 18; Pulse Ox 100% on R/A; mg2 01:37 patient is sleeping. mg2 MDM: 00:22 Patient medically screened. pkl 02:32 Data reviewed: vital signs, nurses notes, radiologic studies, plain films. pkl 05/22 00:48 Order name: Ankle Right 3 View XRAY pkl Administered Medications: 02:44 Drug: Tylenol 650 mg Route: PO; mg2 02:44 Follow up: Response: No adverse reaction; Medication administered at discharge. mg2 Disposition: 05/22/18 02:32 Discharged to Home. Impression: Right ankle pain. - Condition is Stable. - Medication Reconciliation Form, Thank You Letter, Antibiotic Education, Prescription Opioid Use form. - Follow up: Private Physician; When: 2 - 3 days; Reason: Re-evaluation by your physician. - Problem is new. - Symptoms have improved. Signatures: Dispatcher [employer] EDNH Derrek Martines MD MD pkl Desirae Tavera RN RN tl3 Asher Acosta RN RN mg2 Corrections: (The following items were deleted from the chart) 02:52 02:32 05/22/2018 02:32 Discharged to Home. Impression: Right ankle pain. Condition is mg2 Stable. Forms are Medication Reconciliation Form, Thank You Letter, Antibiotic Education, Prescription Opioid Use. Follow up: Private Physician; When: 2 - 3 days; Reason: Re-evaluation by your physician. Problem is new. Symptoms have improved. pkl
[2018-05-22] MEDS ORDERED: ACETAMINOPHEN 325 MG TABLET ONE (02:51)
--- NOTE | 2018-05-22 07:55 | RAD REPORT ---
EXAM DESCRIPTION: RAD - Ankle Right 3 View - 05/22/2018 1:13 am CLINICAL HISTORY: Right ankle pain FINDINGS: No fracture or dislocation is seen.
== END 2018-05-22 02:52 | disposition home or self-care (01) ==
LOC: ER 00:08
DX: M25.571 Pain in right ankle and joints of right foot (principal); D64.9 Anemia, unspecified; F31.9 Bipolar disorder, unspecified
CPT/HCPCS: 99284

== ENCOUNTER 2018-05-23 07:14 | Emergency (ER) | payer SELFPAY ==
--- OUTSIDE RECORDS SUMMARY | 2018-05-23 07:17 | XMS REPORT | Clinical Summary ---
:[address] [facility] Address [address] [place] [address] Care Team Providers Name Role Phone Sharpless [...] constipation; Acute superficial gastritis without hemorrhage after 05/22/2017 Social History Tobacco Use Types Packs/Day Years [...] Not on file Results Not on fileafter 05/22/2017
--- OUTSIDE RECORDS SUMMARY | 2018-05-23 07:17 | XMS REPORT | Clinical Summary ---
:1970 Author Organization [facility] Address [address] [place] [address] Care Team Providers Name Role Phone Asked, [...] right knee MD Luisito (Primary Dx) after 05/22/2017 Social History Tobacco Use Types [...] procedure are in the results section. after 05/22/[address] Renal Stone Protocol (07/11/2017 2:53 [...] is of unclear etiology and clinical significance. [facility]-[id number] Procedure Note Interface, Radiology Results Incoming - [...] is of unclear etiology and clinical significance. [facility]-[id number] Performing Organization Address [facility] Phone Number [facility] [address] [place] [address] hCG qualitative, urine screen (07/11/2017 2:29 AM CDT) [facility] qualitative, urine NegativeComment: [facility] DEPARTMENT OF Sensitivity of HCG test: 25 PATHOLOGY AND GENOMIC mIU/mL MEDICINE Specimen Urine Performing Organization Address City/[facility] Phone Number [facility] DEPARTMENT OF PATHOLOGY AND [address] [place] [phone] GENOMIC MEDICINE Urinalysis screen and microscopy, with reflex to culture (07/11/2017 1:57 AM CDT) Specimen site Random void [facility] DEPARTMENT OF PATHOLOGY AND GENOMIC MEDICINE Color, UA Red [facility] DEPARTMENT OF PATHOLOGY AND GENOMIC MEDICINE Appearance, UA Cloudy [facility] DEPARTMENT OF PATHOLOGY AND GENOMIC MEDICINE Specific gravity, UA 1.018 1.001 - 1.035 [facility] DEPARTMENT OF PATHOLOGY AND GENOMIC MEDICINE pH, UA 6.0 5.0 - 8.5 [facility] DEPARTMENT OF PATHOLOGY AND GENOMIC MEDICINE Protein, UA 1+ (A) Negative [facility] DEPARTMENT OF PATHOLOGY AND GENOMIC MEDICINE Glucose, UA Negative Negative [facility] DEPARTMENT OF PATHOLOGY AND GENOMIC MEDICINE Ketones, UA Negative Negative [facility] DEPARTMENT OF PATHOLOGY AND GENOMIC MEDICINE Bilirubin, UA Negative Negative [facility] DEPARTMENT OF PATHOLOGY AND GENOMIC MEDICINE Blood, UA Moderate (A) Negative [facility] DEPARTMENT OF PATHOLOGY AND GENOMIC MEDICINE Nitrite, UA Positive (A) Negative [facility] DEPARTMENT OF PATHOLOGY AND GENOMIC MEDICINE Urobilinogen, UA 2.0 (A) <2.0 [facility] DEPARTMENT OF PATHOLOGY AND GENOMIC MEDICINE Leukocyte esterase, UA Large (A) Negative [facility] DEPARTMENT OF PATHOLOGY AND GENOMIC MEDICINE Epithelial cells, UA 3 /HPF [facility] DEPARTMENT OF PATHOLOGY AND GENOMIC MEDICINE WBC, UA >180 (H) 0 - 4 /HPF [facility] DEPARTMENT OF PATHOLOGY AND GENOMIC MEDICINE RBC, UA 7 (H) 0 - 5 /HPF [facility] DEPARTMENT OF PATHOLOGY AND GENOMIC MEDICINE Bacteria, UA Many (A) None seen [facility] DEPARTMENT OF PATHOLOGY AND GENOMIC MEDICINE Yeast, UA None seen [facility] DEPARTMENT OF PATHOLOGY AND GENOMIC MEDICINE Yeast with pseudohyphae, UA None seen [facility] DEPARTMENT OF PATHOLOGY AND GENOMIC MEDICINE Specimen Urine Performing Organization Address City/[facility] Phone Number [facility] DEPARTMENT OF PATHOLOGY AND [address] [place] [address] Gram stain (07/11/2017 1:57 AM CDT) Gram stain result Many WBC's [facility] DEPARTMENT OF PATHOLOGY Many Gram positive cocci in clusters AND GENOMIC MEDICINE Comment: Specimen Information Specimen Source: Urine Specimen Site: Random void Specimen Urine - Random void Performing Organization Address City/[facility] Phone Number [facility] DEPARTMENT OF PATHOLOGY AND [address] [place] [address] Urine culture (07/11/2017 1:57 AM CDT) Urine culture isolate Staphylococcus aureus [facility] DEPARTMENT OF 10-5 cfu/ml PATHOLOGY AND [...] RAH 1 mcg/mL: Susceptible Performing Organization Address [facility] Phone Number [facility] DEPARTMENT OF PATHOLOGY AND [address] [place] [address] GENOMIC MEDICINE XR Knee 1 Or 2 Vw Right (07/06/2017 2:34 AM CDT) Narrative Performed At EXAM:XR KNEE 1 OR 2 VW RIGHT RADIANT CLINICAL HISTORY:RECENT TRAUMAKNEE COMPARISON:None. IMPRESSION: 1.No evidence of acute displaced right knee fracture or dislocation. No significant joint effusion. Question of mild medial soft tissue swelling. [facility]-[id number] Procedure Note Interface, Radiology Results Incoming - 07/06/2017 2:38 AM CDT EXAM: XR KNEE 1 OR 2 VW RIGHT CLINICAL HISTORY: RECENT TRAUMA KNEE COMPARISON: None. IMPRESSION: 1. No evidence of acute displaced right knee fracture or dislocation. No significant joint effusion. Question of mild medial soft tissue swelling. [facility]-[id number] Performing Organization Address [facility] Phone Number [facility] [address] [place] [address] after 05/22/2017 Advance Directives Patient has advance care planning documents on file. For more information, please contact:Sergio Padron[address] [place] [phone]
--- OUTSIDE RECORDS SUMMARY | 2018-05-23 07:17 | XMS REPORT | Continuity of Care Document ---
:1970 Author Organization Interface Problems Problem Status Onset Classification Date Comments Source Date Reported HPI Active 04/13/[address] FACIAL FX Active 02/01/[address] DIZZINESS Active 02/01/[address] Left lower 07/07/19 10/04/2017 [facility] quadrant pain 18 [facility] Lower abdominal 06/29/19 10/04/2017 [facility] pain City FLANK PAIN Active 06/29/19 [place] [address] City Nicotine 10/04/2017 [facility] dependence, City unspecified, uncomplicated NONTRAUMATIC Active [facility] CHRONIC SUBDURAL Medical [facility] Center Medications Medication Details Route Status Patient Ordering Order Source Instructions Provider Date tramadol 50 mg=1 No Longer hydrochloride 50 tab, PO, Active [facility] Oral Tablet Q6H, PRN [facility] Pain, X 3 day, # 12 tab, 0 Refill(s) Ondansetron 4 MG 4 mg=1 Active Disintegrating tab, PO, 018 [facility] Tablet [Zofran] BID, PRN [facility] Nausea and Vomiting, Dissolve tab under tongue, # 10 tab, 0 Refill(s) Saline Flush 0.9% 10 mL, Inactive Route: [address] [place] [address] IVP, Drug City Form: INJ, Dosing Weight [...] EXAM: CT BRAIN WITHOUT CONTRAST 04/13 - [facility] contrast CT contrast CT /2019 [facility] Center DATE: 04/13/2018 Read by: [...] day. Brain/Neck Brain/Neck EXAM: CTA BRAIN 01/31 [facility] CTA CTA /2018 - Medical EXAM: [...] CT HEAD WITH AND WITHOUT CONTRAST 01/[address] [facility] [address] contrast CT /2018 - Medical This report was dictated by a Production Support Manager/Fellow. I have personally reviewed the images as [...] 1view EXAM: XR CHEST 1 VIEW 01/31 [facility] DX DX /2018 - Medical This report was dictated by a Production Support Manager/Fellow. I have personally reviewed the images as [...] unit/L 73 - 393 06/28 [facility] CHEM PANEL Globulin 3.5 g/dL 2.7 - 4.2 06/28 [facility] CHEM PANEL A/G Ratio 1.1 0.7 - 1.6 06/28 [facility] CHEM PANEL B/C Ratio 13 6 - 25 06/28 [facility] CHEM PANEL AGAP 13.6 meq/L 10.0 - 06/28 20.0 [facility] CHEM PANEL Total 7.2 g/dL 6.4 - 8.4 06/28 [facility] CHEM PANEL Alk Phos 56 unit/L 39 - 136 06/28 [facility] CHEM PANEL Bili Total 0.2 mg/dL 0.2 - 1.3 06/28 [facility] CHEM PANEL Potassium 3.6 meq/L 3.5 - 5.1 06/28 Lvl [facility] CHEM PANEL Sodium Lvl 139 meq/L 135 - 145 06/28 [facility] CHEM PANEL Calcium Lvl 8.9 mg/dL 8.5 - 10.5 06/28 [facility] CHEM PANEL Chloride Lvl 105 meq/L 95 - 109 06/28 [facility] CHEM PANEL eGFR 107 06/28 [...] is not recommended in the following populations: [address] Individuals with unstable creatinine concentrations, including [...] unit/L 0 - 65 06/28 [facility] CHEM PANEL AST 20 unit/L 0 - 37 06/28 [facility] CHEM PANEL CO2 24 meq/L 24 - 32 06/28 [facility] CHEM PANEL Albumin Lvl 3.7 g/dL 3.5 - 5.0 06/28 [facility] CHEM PANEL Creatinine 0.63 mg/dL 0.50 - 06/28 MH Lvl 1.40 [facility] CHEM PANEL BUN 8 mg/dL 7 - 22 06/28 [facility] CHEM PANEL Glucose Lvl 107 mg/dL 70 - 99 06/28 [facility] ENDOCRINOLO S Preg Negative Negative 06/28 [facility]* [facility] (06/28/17 6:15 AM) HEMATOLOGY RDW 15.4 % 11.5 - 06/28 MH 14.5 [facility] HEMATOLOGY MPV 7.7 fL 7.4 - 10.4 06/28 [facility] HEMATOLOGY Platelet 355 K/CMM 133 - 450 06/28 [facility] HEMATOLOGY MCV 87.1 fL 80.0 - 06/28 98.0 [facility] HEMATOLOGY Hct 37.9 % 36.0 - 06/28 MH 48.0 [facility] HEMATOLOGY MCHC 33.3 g/dL 32.0 - 06/28 MH 36.0 [facility] HEMATOLOGY MCH 29.0 pg 27.0 - 06/28 MH 31.0 [facility] HEMATOLOGY Hgb 12.6 g/dL 12.0 - 06/28 MH 16.0 [facility] HEMATOLOGY RBC 4.35 M/CMM 4.20 - 06/28 MH 5.40 [facility] HEMATOLOGY WBC 10.7 K/CMM 3.7 - 10.4 06/28 [facility] HEMATOLOGY Monocytes # 0.8 K/CMM 0.0 - 0.8 06/28 [facility] HEMATOLOGY Eosinophils 0.2 K/CMM 0.0 - 0.5 06/28 MH # /2017 [facility] HEMATOLOGY Segs 72.1 % 45.0 - 06/28 MH 75.0 [facility] HEMATOLOGY Segs-Bands # 7.7 K/CMM 1.5 - 8.1 06/28 [facility] HEMATOLOGY Lymphocytes 2.0 K/CMM 1.0 - 5.5 06/28 # /2017 [facility] HEMATOLOGY Basophils 0.4 % 0.0 - 1.0 06/28 [facility] HEMATOLOGY Monocytes 7.2 % 2.0 - 12.0 06/28 [facility] HEMATOLOGY Eosinophils 1.7 % 0.0 - 4.0 06/28 [facility] HEMATOLOGY Lymphocytes 18.6 % 20.0 - 06/28 MH 40.0 [facility] URINE AND UA Color Colorless Yellow 06/28 [facility] *NA* [facility] (06/28/17 6:15 AM) URINE AND UA Spec Grav 1.002 <=1.030 06/28 [facility] URINE AND UA Turbidity Clear Clear 06/28 [facility] (06/28/17 6:15 AM) [facility] URINE AND UA pH 6.0 5.0 - 8.0 06/28 [facility] URINE AND UA Glucose Negative Negative 06/28 [facility] mg/dL mg/dL [facility] URINE AND UA Protein Negative Negative 06/28 [facility] mg/dL mg/dL [facility] URINE AND UA Blood Moderate Negative 06/28 [facility] *ABN* [facility] (06/28/17 6:15 AM) URINE AND UA Bili Negative Negative 06/28 [facility] *NA* [facility] (06/28/17 6:15 AM) URINE AND UA Nitrite Negative Negative 06/28 [facility] (06/28/17 6:15 AM) [facility] URINE AND UA Hyal Cast 1 /LPF 0 - 2 06/28 STOOL [facility] URINE AND UA Mucus Few /LPF None Seen 06/28 [facility] /LPF [facility] URINE AND UA <=1.0 0.1 - 1.0 06/28 [facility] Urobilinogen mg/dL [facility] URINE AND UA Ketones Negative 06/28 [facility] URINE AND UA Bacteria Occasional None Seen 06/28 [facility] /HPF /HPF /2017 [facility] URINE AND UA Sq Epi Occasional Few /LPF 06/28 [facility] /LPF /2017 [facility] URINE AND UA Leuk Est Negative Negative 06/28 [facility] /2017 [facility] RBC 2 /HPF 0 - 2 06/28 ST[facility] URINE AND UA WBC 1 /HPF 0 - 5 06/28 STOOL [facility] Pelvis Pelvis EXAM: US PELVIS TRANSABDOMINAL 06/28 - Complete US Complete US /2017 - [facility] DATE: 06/28/2017 8:28 AM CDT [...] Comments Source Systolic (mm Hg) 89 06/28/[address] [facility] Diastolic (mm Hg) 51 06/28/[address] [facility] Temperature Oral (F) 98.1 F 06/28/[address] [facility] Respitory Rate 16 06/28/[address] [facility] Heart Rate 78 06/28/[address] [facility] Respitory Rate 18 06/28/[address] [facility] Temperature Oral (F) 97.9 F 06/28/[address] [facility] Weight 45.5 06/28/[address] [facility] Heart Rate 81 06/28/[address] [facility] Systolic (mm Hg) 131 06/28/[address] [facility] Diastolic (mm Hg) 81 06/28/[address] [facility] Encounters Location Location Encounter Encounter Reason Attending ADM DC Status Source Details Type Number For Provider Date Date Visit [facility] Emergency [id number] Semaj 06/28 06/28 [place] /2017 [facility] Procedures Procedure Code Date Perfomer Comments Source
--- OUTSIDE RECORDS SUMMARY | 2018-05-23 07:18 | XMS REPORT ---
:1970 [facility] Address [address] [place] [address] Care Team Providers Name Role Phone UNKNOWN, REFFERING Primary Care Provider Unavailable Problems This patient has no known problems. Allergies, Adverse Reactions, Alerts This patient has no known allergies or adverse reactions. Medications This patient has no known medications. Encounters Start End Encounter Admission Attending Care Care Encounter Date/Time Date/Time Type Type Clinicians Facility Department ID 2017-07-02 2017-07-02 Emergency E [facility] MED [id number] 08:16:00 08:16:00
--- NOTE | 2018-05-23 07:44 | ER ---
Nurse's Notes [facility] Name: Dayami Espinosa Age: 48 yrs Sex: Female : 1970 Arrival Date: 05/23/2018 Time: 07:16 Bed 14 Private MD: Diagnosis: Sprain of ankle;Bipolar disorder Presentation: 05/23 07:16 Presenting complaint: EMS states: Pt. is 48 yr. old, A \T\ O x 4, was here yesterday for rb1 the same complaint. Was at [facility] eating breakfast this morning and when she finished her breakfast, she called us for a ride to the hospital. She was able to walk to the stretcher. BP 178/90, P 92, R 20, 98% RA. Transition of care: patient was not received from another setting of care. Onset of symptoms was May 22, 2018. Risk Assessment: Do you want to hurt yourself or someone else? Patient reports no desire to harm self or others. Initial Sepsis Screen: Does the patient meet any 2 criteria? No. Patient's initial sepsis screen is negative. Does the patient have a suspected source of infection? No. Patient's initial sepsis screen is negative. Care prior to arrival: None. 07:16 Method Of Arrival: EMS: [facility] 07:16 Acuity: JAZMIN 3 rb1 Triage Assessment: 07:16 General: Appears in no apparent distress. comfortable, slender, Behavior is calm, rb1 cooperative. General: No swelling noted to the right ankle. Pain: Complains of pain in right ankle Pain currently is 10 out of 10 on a pain scale. Neuro: Level of Consciousness is awake, alert, obeys commands, Oriented to person, place, time, situation. Cardiovascular: Capillary refill < 3 seconds is brisk in bilateral fingers. Respiratory: Airway is patent Respiratory effort is even, unlabored, Respiratory pattern is regular, symmetrical. GI: No signs and/or symptoms were reported involving the gastrointestinal system. : No signs and/or symptoms were reported regarding the genitourinary system. Derm: Skin is pink, warm \T\ dry. Musculoskeletal: Range of motion: intact in all extremities, No swelling noted to the right ankle. 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 - Social history:: Smoking status: Patient uses tobacco products, smokes one pack cigarettes per day. - Ebola Screening: : Patient denies travel to an Ebola-affected area in the 21 days before illness onset. - Family history:: not pertinent. Screenin:17 Abuse screen: Denies threats or abuse. Nutritional screening: No deficits noted. tw2 Tuberculosis screening: No symptoms or risk factors identified. Fall Risk None identified. Assessment: 07:16 General: See triage assessment.. rb1 07:45 Reassessment: Pt. is upset and asked for pain medication. Provider notified. Received [facility] order for Tylenol 650 mg PO x 1 and Motrin 400 mg PO x 1. 07:55 Reassessment: Pt. refused the Motrin; Provider notified. rb1 08:00 Reassessment: Pt. was given crackers and peanut butter and juice. rb1 08:00 Reassessment: Patient appears in no apparent distress at this time. Patient and/or rb1 family updated on plan of care and expected duration. Pain level reassessed. Patient is alert, oriented x 3, equal unlabored respirations, skin warm/dry/pink. Vital Signs: 07:16 BP 110 / 63; Pulse 86; Resp 17; Temp 98.1(O); Pulse Ox 100% on R/A; Weight 47.63 kg rb1 (R); Height 5 ft. 3 in. (160.02 cm) (R); Pain 10/10; 08:08 BP 111 / 72; Pulse 84; Resp 16; Pulse Ox 100% on R/A; rb1 07:16 Body Mass Index 18.60 (47.63 kg, 160.02 cm) [facility] ED Course: 07:16 Patient arrived in ED. tw2 07:17 Bed in low position. Call light in reach. Pulse ox on. NIBP on. tw2 07:19 Jenni Patino, RN is Primary Nurse. rb1 07:19 Arm band placed on. tw2 07:20 Darrell Mc MD is Attending Physician. [facility] 07:24 Triage completed. rb1 07:37 Darryn wrap to right ankle. 5 07:43 Brice Murdock MD is Referral Physician. [facility] 08:04 No provider procedures requiring assistance completed. Patient did not have IV access rb1 during this emergency room visit. Administered Medications: 07:56 Drug: Tylenol 650 mg Route: PO; rb1 08:00 Follow up: Response: Medication administered at discharge. rb1 08:05 Not Given (Patient Refused): Motrin 400 mg PO once rb1 Outcome: 07:44 Discharge ordered by MD. [facility] 08:04 Discharged to home ambulatory. rb1 08:04 Condition: stable 08:04 Discharge instructions given to patient, Instructed on discharge instructions, follow up and referral plans. Demonstrated understanding of instructions, follow-up care. 08:19 Patient left the ED. rb1 Signatures: Darrell Mc MD MD cha Barber, Rebecca, RN RN rb1 Joyce Rowe RN RN [facility] Mica Colby [facility]
--- NOTE | 2018-05-23 07:45 | EDPHYS ---
Physician Documentation [facility] Name: Dayami Espinosa Age: 48 yrs Sex: Female : 1970 Arrival Date: 05/23/2018 Time: 07:16 Bed 14 Private MD: ED Physician Darrell Mc HPI: 05/23 07:41 This 48 yrs old Female presents to ER via EMS with complaints of Right Ankle sybil Pain. 07:41 The patient presents with pain, that is acute. The complaints affect the right ankle. sybil Onset: The symptoms/episode began/occurred 3 day(s) ago. Context: The problem was sustained at an unknown location. Associated signs and symptoms: The patient has no apparent associated signs or symptoms. Modifying factors: The symptoms are alleviated by elevation of extremity, the symptoms are aggravated by movement. Severity of symptoms: At their worst the symptoms were mild, in the emergency department the symptoms are unchanged. The patient has not experienced similar symptoms in the past. 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 - Social history:: Smoking status: Patient uses tobacco products, smokes one pack cigarettes per day. - Ebola Screening: : Patient denies travel to an Ebola-affected area in the 21 days before illness onset. - Family history:: not pertinent. ROS: 07:41 Constitutional: Negative for fever, chills, and weight loss, Eyes: Negative for injury, sybil pain, redness, and discharge, ENT: Negative for injury, pain, and discharge, Neck: Negative for injury, pain, and swelling, Cardiovascular: Negative for chest pain, palpitations, and edema, Respiratory: Negative for shortness of breath, cough, wheezing, and pleuritic chest pain, Abdomen/GI: Negative for abdominal pain, nausea, vomiting, diarrhea, and constipation, Back: Negative for injury and pain, : Negative for injury, bleeding, discharge, and swelling, Skin: Negative for injury, rash, and discoloration, Neuro: Negative for headache, weakness, numbness, tingling, and seizure, Psych: Negative for depression, anxiety, suicide ideation, homicidal ideation, and hallucinations, Allergy/Immunology: Negative for hives, rash, and allergies, Endocrine: Negative for neck swelling, polydipsia, polyuria, polyphagia, and marked weight changes, Hematologic/Lymphatic: Negative for swollen nodes, abnormal bleeding, and unusual bruising. 07:41 MS/extremity: Positive for pain, of the right ankle. Exam: 07:41 Constitutional: This is a well developed, well nourished patient who is awake, alert, sybil and in no acute distress. Head/Face: Normocephalic, atraumatic. Eyes: Pupils equal round and reactive to light, extra-ocular motions intact. Lids and lashes normal. Conjunctiva and sclera are non-icteric and not injected. Cornea within normal limits. Periorbital areas with no swelling, redness, or edema. ENT: Nares patent. No nasal discharge, no septal abnormalities noted. Tympanic membranes are normal and external auditory canals are clear. Oropharynx with no redness, swelling, or masses, exudates, or evidence of obstruction, uvula midline. Mucous membranes moist. Neck: Trachea midline, no thyromegaly or masses palpated, and no cervical lymphadenopathy. Supple, full range of motion without nuchal rigidity, or vertebral point tenderness. No Meningismus. Chest/axilla: Normal chest wall appearance and motion. Nontender with no deformity. No lesions are appreciated. Cardiovascular: Regular rate and rhythm with a normal S1 and S2. No gallops, murmurs, or rubs. Normal PMI, no JVD. No pulse deficits. Respiratory: Lungs have equal breath sounds bilaterally, clear to auscultation and percussion. No rales, rhonchi or wheezes noted. No increased work of breathing, no retractions or nasal flaring. Abdomen/GI: Soft, non-tender, with normal bowel sounds. No distension or tympany. No guarding or rebound. No evidence of tenderness throughout. Back: No spinal tenderness. No costovertebral tenderness. Full range of motion. Skin: Warm, dry with normal turgor. Normal color with no rashes, no lesions, and no evidence of cellulitis. Neuro: Awake and alert, GCS 15, oriented to person, place, time, and situation. Cranial nerves II-XII grossly intact. Motor strength 5/5 in all extremities. Sensory grossly intact. Cerebellar exam normal. Normal gait. Psych: Awake, alert, with orientation to person, place and time. Behavior, mood, and affect are within normal limits. 07:41 Musculoskeletal/extremity: Extremities: noted in the right ankle and anterior aspect of right ankle: decreased ROM, ROM: limited active range of motion, limited passive range of motion, Circulation is intact in all extremities. Sensation intact. Compartment Syndrome exam of affected extremity: is normal. DVT Exam: no swelling, negative Homans' sign noted on exam, no appreciated bluish discoloration, no erythema, no increased warmth, pain, tenderness. Vital Signs: 07:16 BP 110 / 63; Pulse 86; Resp 17; Temp 98.1(O); Pulse Ox 100% on R/A; Weight 47.63 kg rb1 (R); Height 5 ft. 3 in. (160.02 cm) (R); Pain 10/10; 08:08 BP 111 / 72; Pulse 84; Resp 16; Pulse Ox 100% on R/A; rb1 07:16 Body Mass Index 18.60 (47.63 kg, 160.02 cm) [facility] MDM: 07:20 Patient medically screened. [facility] 07:43 Data reviewed: vital signs, nurses notes, radiologic studies, plain films. [facility] 05/23 07:40 Order name: Darryn Wrap; Complete Time: 07:41 [facility] 05/23 07:40 Order name: Ice pack; Complete Time: 07:41 [facility] Administered Medications: 07:56 Drug: Tylenol 650 mg Route: PO; rb1 08:00 Follow up: Response: Medication administered at discharge. rb1 08:05 Not Given (Patient Refused): Motrin 400 mg PO once rb1 Disposition: 05/23/18 07:44 Discharged to Home. Impression: Sprain of ankle, Bipolar disorder. - Condition is Stable. - Discharge Instructions: Ankle Sprain, Bipolar Disorder, Ankle Sprain, [id number]. - Medication Reconciliation Form, Thank You Letter, Antibiotic Education, Prescription Opioid Use form. - Follow up: Private Physician; When: 2 - 3 days; Reason: Recheck today's complaints, Continuance of care, Re-evaluation by your physician. Follow up: Brice Murdock MD; When: 2 - 3 days; Reason: Recheck today's complaints, Re-evaluation by your physician. - Problem is new. - Symptoms have improved. Signatures: Darrell Mc MD MD cha Barber, Rebecca, RN RN rb1 RoweJoyce RN RN tw2 Corrections: (The following items were deleted from the chart) 07:44 07:44 05/23/2018 07:44 Discharged to Home. Impression: Sprain of ankle. Condition is sybil Stable. Forms are Medication Reconciliation Form, Thank You Letter, Antibiotic Education, Prescription Opioid Use. Follow up: Private Physician; When: 2 - 3 days; Reason: Recheck today's complaints, Continuance of care, Re-evaluation by your physician. Follow up: Brice Murdock; When: 2 - 3 days; Reason: Recheck today's complaints, Re-evaluation by your physician. Problem is new. Symptoms have improved. [facility] 08:19 07:44 05/23/2018 07:44 Discharged to Home. Impression: Sprain of ankle; Bipolar rb1 disorder. Condition is Stable. Discharge Instructions: Ankle Sprain, Bipolar Disorder, Ankle Sprain, [id number]. Forms are Medication Reconciliation Form, Thank You Letter, Antibiotic Education, Prescription Opioid Use. Follow up: Private Physician; When: 2 - 3 days; Reason: Recheck today's complaints, Continuance of care, Re-evaluation by your physician. Follow up: Brice Murdock; When: 2 - 3 days; Reason: Recheck today's complaints, Re-evaluation by your physician. Problem is new. Symptoms have improved. sybil
[2018-05-23] MEDS ORDERED: IBUPROFEN 400 MG TAB ONE (08:07)
[2018-05-23] MEDS ORDERED: ACETAMINOPHEN 325 MG TABLET ONE ×2 (08:07→08:12)
== END 2018-05-23 08:19 | disposition home or self-care (01) ==
LOC: ER 07:14
DX: S93.401A Sprain of unspecified ligament of right ankle, initial encounter (principal); F31.9 Bipolar disorder, unspecified; D64.9 Anemia, unspecified; Z88.0 Allergy status to penicillin; Z88.8 Allergy status to other drugs, medicaments and biological substances
CPT/HCPCS: 99284

== ENCOUNTER 2018-05-23 19:52 | Emergency (ER) | payer SELFPAY ==
--- OUTSIDE RECORDS SUMMARY | 2018-05-23 19:55 | XMS REPORT | Clinical Summary ---
:1970 Author Organization [facility] Address [address] [place] [address] Care Team Providers Name Role Phone Sharpless [...]
--- OUTSIDE RECORDS SUMMARY | 2018-05-23 19:55 | XMS REPORT | Clinical Summary ---
:1970 Author Organization [facility] Address [address] [place] [address] Care Team Providers Name Role Phone Asked, [...] is of unclear etiology and clinical significance. [facility]-[id number] Procedure Note Interface, Radiology Results Incoming - [...] is of unclear etiology and clinical significance. [facility]-[id number] Performing Organization Address [facility] Phone Number [facility] [address] [place] [address] hCG qualitative, urine screen (07/11/2017 2:29 AM CDT) [facility] qualitative, urine NegativeComment: [facility] DEPARTMENT OF Sensitivity of HCG test: 25 PATHOLOGY AND GENOMIC mIU/mL MEDICINE Specimen Urine Performing Organization Address City/[facility] Cent[facility]ode Phone Number [facility] DEPARTMENT OF PATHOLOGY AND [address] [place] [phone] GENOMIC MEDICINE Urinalysis screen and microscopy, with reflex to culture (07/11/2017 1:57 AM CDT) Specimen site Random void [facility] DEPARTMENT OF PATHOLOGY AND GENOMIC MEDICINE Color, UA Red [facility] DEPARTMENT OF PATHOLOGY AND GENOMIC MEDICINE Appearance, UA Cloudy [facility] DEPARTMENT OF PATHOLOGY AND GENOMIC MEDICINE Specific gravity, UA 1.018 1.001 - 1.035 [facility] DEPARTMENT OF PATHOLOGY AND GENOMIC MEDICINE pH, UA 6.0 5.0 - 8.5 [facility] DEPARTMENT OF PATHOLOGY AND GENOMIC MEDICINE Protein, UA 1+ (A) Negative [facility] DEPARTMENT OF PATHOLOGY AND GENOMIC MEDICINE Glucose, UA Negative Negative [facility] DEPARTMENT OF PATHOLOGY AND GENOMIC MEDICINE Ketones, UA Negative Negative [facility] DEPARTMENT OF PATHOLOGY AND GENOMIC MEDICINE Bilirubin, UA Negative Negative [facility] DEPARTMENT OF PATHOLOGY AND GENOMIC MEDICINE Blood, UA Moderate (A) Negative [facility] DEPARTMENT OF PATHOLOGY AND GENOMIC MEDICINE Nitrite, UA Positive (A) Negative [facility] DEPARTMENT OF PATHOLOGY AND GENOMIC MEDICINE Urobilinogen, UA 2.0 (A) <2.0 [facility] DEPARTMENT OF PATHOLOGY AND GENOMIC MEDICINE Leukocyte esterase, UA Large (A) Negative [facility] DEPARTMENT OF PATHOLOGY AND GENOMIC MEDICINE Epithelial cells, UA 3 /HPF [facility] DEPARTMENT OF PATHOLOGY AND GENOMIC MEDICINE WBC, UA >180 (H) 0 - 4 /HPF [facility] DEPARTMENT OF PATHOLOGY AND GENOMIC MEDICINE RBC, UA 7 (H) 0 - 5 /HPF [facility] DEPARTMENT OF PATHOLOGY AND GENOMIC MEDICINE Bacteria, UA Many (A) None seen [facility] DEPARTMENT OF PATHOLOGY AND GENOMIC MEDICINE Yeast, UA None seen [facility] DEPARTMENT OF PATHOLOGY AND GENOMIC MEDICINE Yeast with pseudohyphae, UA None seen [facility] DEPARTMENT OF PATHOLOGY AND GENOMIC MEDICINE Specimen Urine Performing Organization Address City/[facility]ode Phone Number [facility] DEPARTMENT OF PATHOLOGY AND [address] [place] [address] Gram stain (07/11/2017 1:57 AM CDT) Gram stain result Many WBC's [facility] DEPARTMENT OF PATHOLOGY Many Gram positive cocci in clusters AND GENOMIC MEDICINE Comment: Specimen Information Specimen Source: Urine Specimen Site: Random void Specimen Urine - Random void Performing Organization Address [facility]ercode Phone Number [facility] DEPARTMENT OF PATHOLOGY AND [address] [place] [address] Urine culture (07/11/2017 1:57 AM CDT) Urine culture isolate Staphylococcus aureus [facility] DEPARTMENT OF 10-5 cfu/ml PATHOLOGY AND GENOMIC [...] RAH 1 mcg/mL: Susceptible Performing Organization Address [facility] Centercode Phone Number [facility] DEPARTMENT OF PATHOLOGY AND [address] [place] [address] GENOMIC MEDICINE XR Knee 1 Or 2 Vw Right (07/06/2017 2:34 AM CDT) Narrative Performed At EXAM:XR KNEE 1 OR 2 VW RIGHT RADIANT CLINICAL HISTORY:RECENT TRAUMAKNEE COMPARISON:None. IMPRESSION: 1.No evidence of acute displaced right knee fracture or dislocation. No significant joint effusion. Question of mild medial soft tissue swelling. [facility]-[id number] Procedure Note Interface, Radiology Results Incoming - 07/06/2017 2:38 AM CDT EXAM: XR KNEE 1 OR 2 VW RIGHT CLINICAL HISTORY: RECENT TRAUMA KNEE COMPARISON: None. IMPRESSION: 1. No evidence of acute displaced right knee fracture or dislocation. No significant joint effusion. Question of mild medial soft tissue swelling. [facility]-[id number] Performing Organization Address [facility] Centercowy Phone Number [facility] [address] [place] [address] after 05/22/2017 Advance Directives Patient has advance care planning documents on file. For more information, please contact:Sergio Padron[address] [place] [id number]
--- OUTSIDE RECORDS SUMMARY | 2018-05-23 19:55 | XMS REPORT ---
:1970 [facility] Address [address] [place] [address] Care Team Providers Name Role Phone UNKNOWN, REFFERING Primary Care Provider Unavailable Problems This patient has no known problems. Allergies, Adverse Reactions, Alerts This patient has no known allergies or adverse reactions. Medications This patient has no known medications. Encounters Start End Encounter Admission Attending Care Care Encounter Date/Time Date/Time Type Type Clinicians Facility Department ID 2017-07-02 2017-07-02 Emergency E [facility] MED [id number] 08:16:00 08:16:00
--- OUTSIDE RECORDS SUMMARY | 2018-05-23 19:55 | XMS REPORT | Continuity of Care Document ---
:1970 Author Organization Interface Problems Problem Status Onset Classification Date Comments Source Date Reported HPI Active 04/13/[address] FACIAL FX Active 02/01/[address] DIZZINESS Active 02/01/[address] Left lower 07/07/19 10/04/2017 [facility] quadrant pain 18 [facility] Lower abdominal 06/29/19 10/04/2017 [facility] pain City FLANK PAIN Active 06/29/19 [place] [address] City Nicotine 10/04/2017 [facility] dependence, City unspecified, uncomplicated NONTRAUMATIC Active [facility] CHRONIC SUBDURAL Medical HEMORRHAGE Center Medications Medication Details Route Status Patient Ordering Order Source Instructions Provider Date tramadol 50 mg=1 No Longer hydrochloride 50 tab, PO, Active 018 [facility] Oral Tablet Q6H, PRN [facility] Pain, X 3 day, # 12 tab, 0 Refill(s) Ondansetron 4 MG 4 mg=1 Active Disintegrating tab, PO, 018 [facility] Tablet [Zofran] BID, PRN [facility] Nausea and Vomiting, Dissolve tab under tongue, # 10 tab, 0 Refill(s) Saline Flush 0.9% 10 mL, Inactive Route: [address] [place] [address] IVP, Drug City Form: INJ, Dosing Weight [...] EXAM: CT BRAIN WITHOUT CONTRAST 04/13 - [facility] contrast CT contrast CT /2019 [facility] DATE: 04/13/2018 Read by: Lacey Akhtar [...] day. Brain/Neck Brain/Neck EXAM: CTA BRAIN 01/31 [facility] CTA CTA /2018 - Medical EXAM: CTA [...] CT HEAD WITH AND WITHOUT CONTRAST 01/31 [facility] contrast CT contrast CT /2018 - Medical This report was dictated by a Seam Sewer/Fellow. I have personally reviewed the images as [...] 1view EXAM: XR CHEST 1 VIEW 01/31 [facility] DX DX /2018 - Medical This report was dictated by a Seam Sewer/Fellow. I have personally reviewed the images as [...] Lvl 172 unit/L 73 - 393 06/28 [facility] CHEM PANEL Globulin 3.5 g/dL 2.7 - 4.2 06/28 [facility] CHEM PANEL A/G Ratio 1.1 0.7 - 1.6 06/28 [facility] CHEM PANEL B/C Ratio 13 6 - 25 06/28 [facility] CHEM PANEL AGAP 13.6 meq/L 10.0 - 06/28 20.0 [facility] CHEM PANEL Total 7.2 g/dL 6.4 - 8.4 06/28 [facility] CHEM PANEL Alk Phos 56 unit/L 39 - 136 06/28 [facility] CHEM PANEL Bili Total 0.2 mg/dL 0.2 - 1.3 06/28 [facility] CHEM PANEL Potassium 3.6 meq/L 3.5 - 5.1 06/28 Lvl [facility] CHEM PANEL Sodium Lvl 139 meq/L 135 - 145 06/28 [facility] CHEM PANEL Calcium Lvl 8.9 mg/dL 8.5 - 10.5 06/28 [facility] CHEM PANEL Chloride Lvl 105 meq/L 95 - 109 06/28 [facility] CHEM PANEL eGFR 107 06/28 Result [...] is not recommended in the following populations: [address] Individuals with unstable creatinine concentrations, including [...] ALT 24 unit/L 0 - 65 06/28 [facility] CHEM PANEL AST 20 unit/L 0 - 37 06/28 [facility] CHEM PANEL CO2 24 meq/L 24 - 32 06/28 [facility] CHEM PANEL Albumin Lvl 3.7 g/dL 3.5 - 5.0 06/28 [facility] CHEM PANEL Creatinine 0.63 mg/dL 0.50 - 06/28 MH Lvl 1.40 [facility] CHEM PANEL BUN 8 mg/dL 7 - 22 06/28 [facility] CHEM PANEL Glucose Lvl 107 mg/dL 70 - 99 06/28 [facility] ENDOCRINOLO S Preg Negative Negative 06/28 [facility]* [facility] (06/28/17 6:15 AM) HEMATOLOGY RDW 15.4 % 11.5 - 06/28 MH 14.5 [facility] HEMATOLOGY MPV 7.7 fL 7.4 - 10.4 06/28 [facility] HEMATOLOGY Platelet 355 K/CMM 133 - 450 06/28 [facility] HEMATOLOGY MCV 87.1 fL 80.0 - 06/28 98.0 [facility] HEMATOLOGY Hct 37.9 % 36.0 - 06/28 MH 48.0 [facility] HEMATOLOGY MCHC 33.3 g/dL 32.0 - 06/28 MH 36.0 [facility] HEMATOLOGY MCH 29.0 pg 27.0 - 06/28 MH 31.0 [facility] HEMATOLOGY Hgb 12.6 g/dL 12.0 - 06/28 MH 16.0 [facility] HEMATOLOGY RBC 4.35 M/CMM 4.20 - 06/28 MH 5.40 [facility] HEMATOLOGY WBC 10.7 K/CMM 3.7 - 10.4 06/28 [facility] HEMATOLOGY Monocytes # 0.8 K/CMM 0.0 - 0.8 06/28 [facility] HEMATOLOGY Eosinophils 0.2 K/CMM 0.0 - 0.5 06/28 MH # /2017 [facility] HEMATOLOGY Segs 72.1 % 45.0 - 06/28 MH 75.0 [facility] HEMATOLOGY Segs-Bands # 7.7 K/CMM 1.5 - 8.1 06/28 [facility] HEMATOLOGY Lymphocytes 2.0 K/CMM 1.0 - 5.5 06/28 # /2017 [facility] HEMATOLOGY Basophils 0.4 % 0.0 - 1.0 06/28 [facility] HEMATOLOGY Monocytes 7.2 % 2.0 - 12.0 06/28 [facility] HEMATOLOGY Eosinophils 1.7 % 0.0 - 4.0 06/28 [facility] HEMATOLOGY Lymphocytes 18.6 % 20.0 - 06/28 MH 40.0 [facility] URINE AND UA Color Colorless Yellow 06/28 [facility] *NA* [facility] (06/28/17 6:15 AM) URINE AND UA Spec Grav 1.002 <=1.030 06/28 [facility] URINE AND UA Turbidity Clear Clear 06/28 [facility] (06/28/17 6:15 AM) [facility] URINE AND UA pH 6.0 5.0 - 8.0 06/28 [facility] URINE AND UA Glucose Negative Negative 06/28 STOOL mg/dL mg/dL [facility] URINE AND UA Protein Negative Negative 06/28 STOOL mg/dL mg/dL [facility] URINE AND UA Blood Moderate Negative 06/28 [facility] *ABN* [facility] (06/28/17 6:15 AM) URINE AND UA Bili Negative Negative 06/28 [facility] *NA* [facility] (06/28/17 6:15 AM) URINE AND UA Nitrite Negative Negative 06/28 [facility] (06/28/17 6:15 AM) [facility] URINE AND UA Hyal Cast 1 /LPF 0 - 2 06/28 STOOL [facility] URINE AND UA Mucus Few /LPF None Seen 06/28 STOOL /LPF [facility] URINE AND UA <=1.0 0.1 - 1.0 06/28 STOOL Urobilinogen mg/dL [facility] URINE AND UA Ketones Negative 06/28 STOOL [facility] URINE AND UA Bacteria Occasional None Seen 06/28 STOOL /HPF /HPF /2017 [facility] URINE AND UA Sq Epi Occasional Few /LPF 06/28 STOOL /LPF /2017 [facility] URINE AND UA Leuk Est Negative Negative 06/28 STOOL /2017 [facility] RBC 2 /HPF 0 - 2 06/28 STOOL [facility] URINE AND UA WBC 1 /HPF 0 - 5 06/28 STOOL [facility] Pelvis Pelvis EXAM: US PELVIS TRANSABDOMINAL 06/28 - Complete US Complete US /2017 - [facility] DATE: 06/28/2017 8:28 AM CDT Read [...] Source Systolic (mm Hg) 89 06/28/2017 [facility] Diastolic (mm Hg) 51 06/28/2017 [facility] Temperature Oral (F) 98.1 F 06/28/2017 [facility] Respitory Rate 16 06/28/2017 [facility] Heart Rate 78 06/28/2017 [facility] Respitory Rate 18 06/28/2017 [facility] Temperature Oral (F) 97.9 F 06/28/2017 [facility] Weight 45.5 06/28/2017 [facility] Heart Rate 81 06/28/2017 [facility] Systolic (mm Hg) 131 06/28/2017 [facility] Diastolic (mm Hg) 81 06/28/2017 [facility] Encounters Location Location Encounter Encounter Reason Attending ADM DC Status Source Details Type Number For Provider Date Date Visit [facility] Emergency [id number] Semaj 06/28 06/28 [place] /2017 [facility] Procedures Procedure Code Date Perfomer Comments Source
[2018-05-23] MEDS ORDERED: METOCLOPRAMIDE 10 MG/2mL INJ ONE (21:36)
[2018-05-23] MEDS ORDERED: MEPERIDINE HCL 25 MG/0.5 ML ONE (21:36)
[2018-05-23] MEDS ORDERED: NA CHLORIDE 0.9% 1,000 ML ONE (21:36)
[2018-05-23 22:56] LABS: Urine Blood 2+ (NEG); Urine Glucose NEGATIVE (NEG); Urine Protein 1+ (NEG); Urine Specific Gravity 1.025 (1.005-1.030); Urine pH 5.5 (5.0-7.0)
--- NOTE | 2018-05-23 23:07 | EDPHYS ---
Physician Documentation [facility] Department Name: Dayami Espinosa Age: 48 yrs Sex: Female : 1970 Arrival Date: 05/23/2018 Time: 19:53 Bed 6 Private MD: ED Physician Vladimir Coelho HPI: 05/23 23:04 This 48 yrs old Female presents to ER via Ambulatory with complaints of rn Headache, Nausea. 23:04 The patient complains of pain to the forehead. The patient describes the headache as rn aching. Onset: The symptoms/episode began/occurred at an unknown time. Severity of symptoms: At its worst the pain was mild, in the emergency department the pain is unchanged. The patient has experienced similar episodes in the past. Reports headache, similar to previous migraines, began 3 hours ago, also thinks has UTI. No head trauma. NO focal neurological complaints. . 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 - Social history:: Smoking status: Patient uses tobacco products, smokes one pack cigarettes per day. - Ebola Screening: : No symptoms or risks identified at this time. - Family history:: not pertinent. - Hospitalizations: : No recent hospitalization is reported. ROS: 23:04 Constitutional: Negative for fever, chills, and weight loss, Eyes: Negative for injury, rn pain, redness, and discharge, Cardiovascular: Negative for chest pain, palpitations, and edema, Respiratory: Negative for shortness of breath, cough, wheezing, and pleuritic chest pain, Abdomen/GI: Negative for abdominal pain, nausea, vomiting, diarrhea, and constipation, : + dysuria MS/Extremity: Negative for injury and deformity, Skin: Negative for injury, rash, and discoloration, Neuro: Negative for weakness, numbness, tingling, and seizure. Exam: 23:04 Constitutional: This is a well developed, well nourished patient who is awake, alert, rn and in no acute distress. Head/Face: Normocephalic, atraumatic. Eyes: Pupils equal round and reactive to light, extra-ocular motions intact. Lids and lashes normal. Conjunctiva and sclera are non-icteric and not injected. Cornea within normal limits. Periorbital areas with no swelling, redness, or edema. ENT: MMM Abdomen/GI: soft, non-tender Skin: Warm, dry with normal turgor. Normal color with no rashes, no lesions, and no evidence of cellulitis. MS/ Extremity: Pulses equal, no cyanosis. Neurovascular intact. Full, normal range of motion. Equal circumference. Neuro: Awake and alert, GCS 15, oriented to person, place, time, and situation. Cranial nerves II-XII grossly intact. Motor strength 5/5 in all extremities. Sensory grossly intact. Cerebellar exam normal. Normal gait. Vital Signs: 20:06 BP 130 / 78; Pulse 90; Resp 18; Temp 98.1; Pulse Ox 100% on R/A; Weight 48.08 kg; lp1 Height 5 ft. 3 in. (160.02 cm); Pain 8/10; 21:59 BP 120 / 81; Pulse 78; Resp 14; Pulse Ox 96% on R/A; ak1 23:18 BP 98 / 61; Pulse 81; Resp 12; Temp 98.1; Pulse Ox 94% on R/A; Pain 0/10; ak1 20:06 Body Mass Index 18.78 (48.08 kg, 160.02 cm) lp1 [place] Coma Score: 23:04 Eye Response: spontaneous(4). Verbal Response: oriented(5). Motor Response: obeys rn commands(6). Total: 15. MDM: 20:54 Patient medically screened. rn 23:04 Differential diagnosis: migraine, tension headache, vasomotor headache, UTI. Data rn reviewed: vital signs, nurses notes, lab test result(s), and as a result, I will discharge patient. Counseling: I had a detailed discussion with the patient and/or guardian regarding: the historical points, exam findings, and any diagnostic results supporting the discharge/admit diagnosis, lab results, the need for outpatient follow up, to return to the emergency department if symptoms worsen or persist or if there are any questions or concerns that arise at home. Special discussion: I discussed with the patient/guardian in detail that at this point there is no indication for admission to the hospital. It is understood, however, that if the symptoms persist or worsen the patient needs to return immediately for re-evaluation. 05/23 21:10 Order name: Urine Dipstick--Ancillary (enter results); Complete Time: 23:03 [facility] 05/23 21:10 Order name: Urine --Ancillary (enter results); Complete Time: 23:03 ar5 05/23 20:27 Order name: Urine Dipstick-Ancillary (obtain specimen); Complete Time: 21:22 [facility] 05/23 21:04 Order name: IV Start; Complete Time: 21:34 rn Administered Medications: 21:34 Drug: Reglan 10 mg Route: IVP; Site: right antecubital; ak1 22:00 Follow up: Response: No adverse reaction; Nausea is decreased ak1 21:34 Drug: NS 0.9% 1000 ml Route: IV; Rate: 1000 ml; Site: right antecubital; ak1 22:19 Follow up: IV Status: Completed infusion; IV Intake: 1000ml ak1 21:36 Drug: Demerol 25 mg Route: IVP; Site: right antecubital; ak1 22:00 Follow up: Response: No adverse reaction; Pain is decreased ak1 Disposition: 05/23/18 23:06 Discharged to Home. Impression: Urinary tract infection, site not specified. - Condition is Stable. - Discharge Instructions: Migraine Headache, Urinary Tract Infection, Adult. - Prescriptions for Cipro 500 mg Oral Tablet - take 1 tablet by ORAL route every 12 hours for 7 days; 14 tablet. - Medication Reconciliation Form, Thank You Letter, Antibiotic Education, Prescription Opioid Use form. - Follow up: Private Physician; When: As needed; Reason: Recheck today's complaints, Re-evaluation by your physician. - Problem is new. - Symptoms have improved. Signatures: Dispatcher [employer] EDMS Vladimir Coelho MD MD rn Pena, Laura RN RN lp1 Marcia Maciel RN RN ak1 Corrections: (The following items were deleted from the chart) 23:41 23:06 05/23/2018 23:06 Discharged to Home. Impression: Urinary tract infection, site ak1 not specified. Condition is Stable. Forms are Medication Reconciliation Form, Thank You Letter, Antibiotic Education, Prescription Opioid Use. Follow up: Private Physician; When: As needed; Reason: Recheck today's complaints, Re-evaluation by your physician. Problem is new. Symptoms have improved. rn
--- NOTE | 2018-05-23 23:07 | ER ---
Nurse's Notes [facility] Name: Dayami Espinosa Age: 48 yrs Sex: Female : 1970 Arrival Date: 05/23/2018 Time: 19:53 Bed 6 Private MD: Diagnosis: Urinary tract infection, site not specified Presentation: 05/23 20:04 Presenting complaint: Patient states: "My stomach hurts and I'm about to throw up. lp1 Trust me, I might have good vitals but I feel like crap"; Abdominal pain x 3 hours, headache; States nausea; Denies vomiting, diarrhea, fever. Transition of care: patient was not received from another setting of care. Onset of symptoms was May 23, 2018. Risk Assessment: Do you want to hurt yourself or someone else? Patient reports no desire to harm self or others. Initial Sepsis Screen: Does the patient meet any 2 criteria? No. Patient's initial sepsis screen is negative. Does the patient have a suspected source of infection? No. Patient's initial sepsis screen is negative. Care prior to arrival: None. 20:04 Method Of Arrival: Ambulatory lp1 20:04 Acuity: JAZMIN 3 lp1 Triage Assessment: 20:08 Headache History: The patient has had previous headaches. General: Appears in no lp1 apparent distress. Behavior is agitated. Pain: Complains of pain in abdomen Pain currently is 8 out of 10 on a pain scale. Pain began 3 hours ago. Also complains of nausea. Neuro: Level of Consciousness is awake, alert, obeys commands, Oriented to person, place, time, situation, Moves all extremities. Full function Gait is steady, Facial symmetry appears normal, Pupils are PERRLA. Cardiovascular: Patient's skin is warm and dry. Respiratory: Respiratory effort is even, unlabored. Derm: Skin is pink, warm \\T\\ dry. 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 - Social history:: Smoking status: Patient uses tobacco products, smokes one pack cigarettes per day. - Ebola Screening: : No symptoms or risks identified at this time. - Family history:: not pertinent. - Hospitalizations: : No recent hospitalization is reported. Screenin:09 Abuse screen: Denies threats or abuse. Denies injuries from another. Nutritional lp1 screening: No deficits noted. Tuberculosis screening: No symptoms or risk factors identified. Fall Risk None identified. Assessment: 21:37 General: Appears in no apparent distress. Behavior is calm, cooperative. Pain: ak1 Complains of pain in headache. Neuro: Level of Consciousness is awake, alert, obeys commands, Oriented to person, place, time, situation, [employer] Executive are equal bilaterally Moves all extremities. Gait is steady, Speech is normal, Facial symmetry appears normal. Cardiovascular: No deficits noted. Respiratory: No deficits noted. GI: Reports nausea. : No signs and/or symptoms were reported regarding the genitourinary system. EENT: No signs and/or symptoms were reported regarding the EENT system. Derm: No signs and/or symptoms reported regarding the dermatologic system. Musculoskeletal: No signs and/or symptoms reported regarding the musculoskeletal system. 21:58 Reassessment: Patient appears in no apparent distress at this time. Patient and/or ak1 family updated on plan of care and expected duration. Pain level reassessed. Patient is alert, oriented x 3, equal unlabored respirations, skin warm/dry/pink. pt resting with even unlabored resp. crackers and peanutbutter taken to bedside for pt as requested. Patient denies pain at this time. Patient states feeling better. Patient states symptoms have improved. Vital Signs: 20:06 BP 130 / 78; Pulse 90; Resp 18; Temp 98.1; Pulse Ox 100% on R/A; Weight 48.08 kg; lp1 Height 5 ft. 3 in. (160.02 cm); Pain 8/10; 21:59 BP 120 / 81; Pulse 78; Resp 14; Pulse Ox 96% on R/A; ak1 23:18 BP 98 / 61; Pulse 81; Resp 12; Temp 98.1; Pulse Ox 94% on R/A; Pain 0/10; ak1 20:06 Body Mass Index 18.78 (48.08 kg, 160.02 cm) lp1 [place] Coma Score: 23:04 Eye Response: spontaneous(4). Verbal Response: oriented(5). Motor Response: obeys rn commands(6). Total: 15. ED Course: 19:53 Patient arrived in ED. es 20:06 Triage completed. lp1 20:06 Arm band placed on left wrist. lp1 20:54 Vladimir Coelho MD is Attending Physician. rn 21:04 Marcia Maciel RN is Primary Nurse. ak1 21:37 Patient has correct armband on for positive identification. Placed in gown. Bed in low ak1 position. Side rails up X 1. Pulse ox on. NIBP on. 21:37 Inserted saline lock: 20 gauge in right antecubital area, using aseptic technique. ak1 23:20 No provider procedures requiring assistance completed. IV discontinued, intact, ak1 bleeding controlled, No redness/swelling at site. Pressure dressing applied. Administered Medications: 21:34 Drug: Reglan 10 mg Route: IVP; Site: right antecubital; ak1 22:00 Follow up: Response: No adverse reaction; Nausea is decreased ak1 21:34 Drug: NS 0.9% 1000 ml Route: IV; Rate: 1000 ml; Site: right antecubital; ak1 22:19 Follow up: IV Status: Completed infusion; IV Intake: 1000ml ak1 21:36 Drug: Demerol 25 mg Route: IVP; Site: right antecubital; ak1 22:00 Follow up: Response: No adverse reaction; Pain is decreased ak1 Intake: 22:19 IV: 1000ml; Total: 1000ml. ak1 Outcome: 23:06 Discharge ordered by . rn 23:19 Discharged to home ambulatory. ak1 23:19 Condition: good 23:19 Discharge instructions given to patient, Instructed on discharge instructions, follow up and referral plans. no drinking with medication, no driving heavy equipment, medication usage, safe sex practices, Demonstrated understanding of instructions, follow-up care, medications, Prescriptions given X 1. 23:41 Patient left the ED. ak1 Signatures: Jessie Jett Vladimir Coelho MD MD rn Pena, Laura, RN RN lp1 Krenek, Marcia, RN RN ak1 Corrections: (The following items were deleted from the chart) 20:08 20:06 48.08 kg; Height 5 ft. 3 in.; BMI: 18.7; Pain 8/10; lp1 lp1
== END 2018-05-23 23:41 | disposition home or self-care (01) ==
LOC: ER 19:52
DX: N39.0 Urinary tract infection, site not specified (principal); D64.9 Anemia, unspecified; F31.9 Bipolar disorder, unspecified; Z88.6 Allergy status to analgesic agent; Z88.0 Allergy status to penicillin; Z88.8 Allergy status to other drugs, medicaments and biological substances
CPT/HCPCS: 81003; 81025; 96361; 96374; 96375; 99284; J2175; J2765; J7030

== ENCOUNTER 2018-06-08 04:05 | Emergency (ER) | payer SELFPAY ==
--- OUTSIDE RECORDS SUMMARY | 2018-06-08 04:09 | XMS REPORT ---
:1970 [facility] Address [address] [place] [address] Care Team Providers Name Role Phone UNKNOWN, REFFERING Primary Care Provider Unavailable Problems This patient has no known problems. Allergies, Adverse Reactions, Alerts This patient has no known allergies or adverse reactions. Medications This patient has no known medications. Encounters Start End Encounter Admission Attending Care Care Encounter Date/Time Date/Time Type Type Clinicians Facility Department ID 2017-07-02 2017-07-02 Emergency [facility] [id number] 08:16:00 08:16:00
--- OUTSIDE RECORDS SUMMARY | 2018-06-08 04:09 | XMS REPORT | Clinical Summary ---
:1970 Author Organization [facility] Address [address] [place] [address] Care Team Providers Name Role Phone Asked, [...] right knee MD Luisito (Primary Dx) after 06/07/2017 Social History Tobacco Use Types Packs/Day Years [...] procedure are in the results section. after 06/07/[address] Renal Stone Protocol (07/11/2017 2:53 [...] clinical significance. [facility]-[id number] Procedure Note Interface, Radiology Results Incoming - [...] clinical significance. [facility]-[id number] Performing Organization Address [facility]ode Phone Number [facility] [address] [place] [address] hCG qualitative, urine screen (07/11/2017 2:29 AM CDT) [facility] qualitative, urine NegativeComment: [facility] DEPARTMENT OF Sensitivity of HCG test: 25 PATHOLOGY AND GENOMIC mIU/mL MEDICINE Specimen Urine Performing Organization Address City/[facility]ode Phone Number [facility] DEPARTMENT OF PATHOLOGY AND [address] [place] [id number] GENOMIC MEDICINE Urinalysis screen and microscopy, with reflex to culture (07/11/2017 1:57 AM CDT) Specimen site Random void [facility] DEPARTMENT OF PATHOLOGY AND GENOMIC MEDICINE Color, UA Red [facility] DEPARTMENT OF PATHOLOGY AND GENOMIC MEDICINE Appearance, UA Cloudy [facility] DEPARTMENT OF PATHOLOGY AND GENOMIC MEDICINE Specific gravity, UA 1.018 1.001 - 1.035 [facility] DEPARTMENT OF PATHOLOGY AND GENOMIC MEDICINE pH, UA 6.0 5.0 - 8.5 [facility] DEPARTMENT OF PATHOLOGY AND GENOMIC MEDICINE Protein, UA 1+ (A) Negative [facility] DEPARTMENT OF PATHOLOGY AND GENOMIC MEDICINE Glucose, UA Negative Negative [facility] DEPARTMENT OF PATHOLOGY AND GENOMIC MEDICINE Ketones, UA Negative Negative [facility] DEPARTMENT OF PATHOLOGY AND GENOMIC MEDICINE Bilirubin, UA Negative Negative [facility] DEPARTMENT OF PATHOLOGY AND GENOMIC MEDICINE Blood, UA Moderate (A) Negative [facility] DEPARTMENT OF PATHOLOGY AND GENOMIC MEDICINE Nitrite, UA Positive (A) Negative [facility] DEPARTMENT OF PATHOLOGY AND GENOMIC MEDICINE Urobilinogen, UA 2.0 (A) <2.0 [facility] DEPARTMENT OF PATHOLOGY AND GENOMIC MEDICINE Leukocyte esterase, UA Large (A) Negative [facility] DEPARTMENT OF PATHOLOGY AND GENOMIC MEDICINE Epithelial cells, UA 3 /HPF [facility] DEPARTMENT OF PATHOLOGY AND GENOMIC MEDICINE WBC, UA >180 (H) 0 - 4 /HPF [facility] DEPARTMENT OF PATHOLOGY AND GENOMIC MEDICINE RBC, UA 7 (H) 0 - 5 /HPF [facility] DEPARTMENT OF PATHOLOGY AND GENOMIC MEDICINE Bacteria, UA Many (A) None seen [facility] DEPARTMENT OF PATHOLOGY AND GENOMIC MEDICINE Yeast, UA None seen [facility] DEPARTMENT OF PATHOLOGY AND GENOMIC MEDICINE Yeast with pseudohyphae, UA None seen [facility] DEPARTMENT OF PATHOLOGY AND GENOMIC MEDICINE Specimen Urine Performing Organization Address City/[facility]ode Phone Number [facility] DEPARTMENT OF PATHOLOGY AND [address] [place] [address] Gram stain (07/11/2017 1:57 AM CDT) Gram stain result Many WBC's [facility] DEPARTMENT OF PATHOLOGY Many Gram positive cocci in clusters AND GENOMIC MEDICINE Comment: Specimen Information Specimen Source: Urine Specimen Site: Random void Specimen Urine - Random void Performing Organization Address City/[facility]ode Phone Number [facility] DEPARTMENT OF PATHOLOGY AND [address] [place] [address] Urine culture (07/11/2017 1:57 AM CDT) Urine culture isolate Staphylococcus aureus [facility] DEPARTMENT OF 10-5 cfu/ml PATHOLOGY [...] RAH 1 mcg/mL: Susceptible Performing Organization Address [facility]ercode Phone Number [facility] DEPARTMENT OF PATHOLOGY AND [address] [place] [address] GENOMIC MEDICINE XR Knee 1 Or 2 Vw Right (07/06/2017 2:34 AM CDT) Narrative Performed At EXAM:XR KNEE 1 OR 2 VW RIGHT [facility] CLINICAL HISTORY:RECENT TRAUMAKNEE COMPARISON:None. IMPRESSION: 1.No evidence of acute displaced right knee fracture or dislocation. No significant joint effusion. Question of mild medial soft tissue swelling. [facility]-[id number] Procedure Note Interface, Radiology Results Incoming - 07/06/2017 2:38 AM CDT EXAM: XR KNEE 1 OR 2 VW RIGHT CLINICAL HISTORY: RECENT TRAUMA KNEE COMPARISON: None. IMPRESSION: 1. No evidence of acute displaced right knee fracture or dislocation. No significant joint effusion. Question of mild medial soft tissue swelling. [facility]-[id number] Performing Organization Address [facility] Centercowv Phone Number [facility] [address] [place] [address] after 06/07/2017 Advance Directives Patient has advance care planning documents on file. For more information, please contact:Sergio Padron[address] [place] [phone]
--- OUTSIDE RECORDS SUMMARY | 2018-06-08 04:09 | XMS REPORT | Continuity of Care Document ---
:1970 Author Organization Interface Problems Problem Status Onset Classification Date Comments Source Date Reported HPI Active 04/13/[address] FACIAL FX Active 02/01/[address] DIZZINESS Active 02/01/[address] Left lower 07/07/19 10/04/2017 [facility] quadrant pain 18 [facility] Lower abdominal 06/29/19 10/04/2017 [facility] pain City FLANK PAIN Active 06/29/19 [place] [address] [place] Nicotine 10/04/2017 [facility] dependence, City unspecified, uncomplicated NONTRAUMATIC Active [facility] CHRONIC SUBDURAL Medical HEMORRHAGE Center Medications [...] Saline Flush 0.9% 10 mL, Inactive Route: [address] [place] [address] IVP, Drug [place] Form: INJ, Dosing Weight [...] EXAM: CT BRAIN WITHOUT CONTRAST 04/13 - [facility] contrast CT contrast CT /2019 [facility] DATE: 04/13/2018 Read by: Lacey [...] day. Brain/Neck Brain/Neck EXAM: CTA BRAIN 01/31 [facility] CTA CTA /2018 - Medical EXAM: [...] CT HEAD WITH AND WITHOUT CONTRAST 01/31 [facility] contrast CT contrast CT /2018 - Medical This report was dictated by a Diver Assistant/Fellow. I have personally reviewed the images [...] 1view EXAM: XR CHEST 1 VIEW 01/31 [facility] DX DX /2018 - Medical This report was dictated by a Diver Assistant/Fellow. I have personally reviewed the images [...] 172 unit/L 73 - 393 06/28 [facility] CHEM PANEL Globulin 3.5 g/dL 2.7 - 4.2 06/28 [facility] CHEM PANEL A/G Ratio 1.1 0.7 - 1.6 06/28 [facility] CHEM PANEL B/C Ratio 13 6 - 25 06/28 [facility] CHEM PANEL AGAP 13.6 meq/L 10.0 - 06/28 20.0 [facility] CHEM PANEL Total 7.2 g/dL 6.4 - 8.4 06/28 [facility] CHEM PANEL Alk Phos 56 unit/L 39 - 136 06/28 [facility] CHEM PANEL Bili Total 0.2 mg/dL 0.2 - 1.3 06/28 [facility] CHEM PANEL Potassium 3.6 meq/L 3.5 - 5.1 06/28 Lvl [facility] CHEM PANEL Sodium Lvl 139 meq/L 135 - 145 06/28 [facility] CHEM PANEL Calcium Lvl 8.9 mg/dL 8.5 - 10.5 06/28 [facility] CHEM PANEL Chloride Lvl 105 meq/L 95 - 109 06/28 [facility] CHEM PANEL eGFR 107 06/28 Result [...] is not recommended in the following populations: [address] Individuals with unstable creatinine concentrations, including [...] 24 unit/L 0 - 65 06/28 [facility] CHEM PANEL AST 20 unit/L 0 - 37 06/28 [facility] CHEM PANEL CO2 24 meq/L 24 - 32 06/28 [facility] CHEM PANEL Albumin Lvl 3.7 g/dL 3.5 - 5.0 06/28 [facility] CHEM PANEL Creatinine 0.63 mg/dL 0.50 - 06/28 MH Lvl 1.40 [facility] CHEM PANEL BUN 8 mg/dL 7 - 22 06/28 [facility] CHEM PANEL Glucose Lvl 107 mg/dL 70 - 99 06/28 [facility] ENDOCRINOLO S Preg Negative Negative 06/28 [facility]* [facility] (06/28/17 6:15 AM) HEMATOLOGY RDW 15.4 % 11.5 - 06/28 MH 14.5 [facility] HEMATOLOGY MPV 7.7 fL 7.4 - 10.4 06/28 [facility] HEMATOLOGY Platelet 355 K/CMM 133 - 450 06/28 [facility] HEMATOLOGY MCV 87.1 fL 80.0 - 06/28 98.0 [facility] HEMATOLOGY Hct 37.9 % 36.0 - 06/28 MH 48.0 [facility] HEMATOLOGY MCHC 33.3 g/dL 32.0 - 06/28 MH 36.0 [facility] HEMATOLOGY MCH 29.0 pg 27.0 - 06/28 MH 31.0 [facility] HEMATOLOGY Hgb 12.6 g/dL 12.0 - 06/28 MH 16.0 [facility] HEMATOLOGY RBC 4.35 M/CMM 4.20 - 06/28 MH 5.40 [facility] HEMATOLOGY WBC 10.7 K/CMM 3.7 - 10.4 06/28 [facility] HEMATOLOGY Monocytes # 0.8 K/CMM 0.0 - 0.8 06/28 [facility] HEMATOLOGY Eosinophils 0.2 K/CMM 0.0 - 0.5 06/28 MH # /2017 [facility] HEMATOLOGY Segs 72.1 % 45.0 - 06/28 MH 75.0 [facility] HEMATOLOGY Segs-Bands # 7.7 K/CMM 1.5 - 8.1 06/28 [facility] HEMATOLOGY Lymphocytes 2.0 K/CMM 1.0 - 5.5 06/28 # /2017 [facility] HEMATOLOGY Basophils 0.4 % 0.0 - 1.0 06/28 [facility] HEMATOLOGY Monocytes 7.2 % 2.0 - 12.0 06/28 [facility] HEMATOLOGY Eosinophils 1.7 % 0.0 - 4.0 06/28 [facility] HEMATOLOGY Lymphocytes 18.6 % 20.0 - 06/28 MH 40.0 [facility] URINE AND UA Color Colorless Yellow 06/28 [facility] *NA* [facility] (06/28/17 6:15 AM) URINE AND UA Spec Grav 1.002 <=1.030 06/28 [facility] URINE AND UA Turbidity Clear Clear 06/28 [facility] (06/28/17 6:15 AM) [facility] URINE AND UA pH 6.0 5.0 - 8.0 06/28 [facility] URINE AND UA Glucose Negative Negative 06/28 [facility] mg/dL mg/dL [facility] URINE AND UA Protein Negative Negative 06/28 [facility] mg/dL mg/dL [facility] URINE AND UA Blood Moderate Negative 06/28 [facility] *ABN* [facility] (06/28/17 6:15 AM) URINE AND UA Bili Negative Negative 06/28 [facility] *NA* [facility] (06/28/17 6:15 AM) URINE AND UA Nitrite Negative Negative 06/28 [facility] (06/28/17 6:15 AM) [facility] URINE AND UA Hyal Cast 1 /LPF 0 - 2 06/28 STOOL [facility] URINE AND UA Mucus Few /LPF None Seen 06/28 [facility] /LPF [facility] URINE AND UA <=1.0 0.1 - 1.0 06/28 [facility] Urobilinogen mg/dL [facility] URINE AND UA Ketones Negative 06/28 ST[facility] URINE AND UA Bacteria Occasional None Seen 06/28 [facility] /HPF /HPF /2017 [facility] URINE AND UA Sq Epi Occasional Few /LPF 06/28 [facility] /LPF /2017 [facility] URINE AND UA Leuk Est Negative Negative 06/28 STOOL /2017 [facility] RBC 2 /HPF 0 - 2 06/28 STOOL [facility] URINE AND UA WBC 1 /HPF 0 - 5 06/28 STOOL [facility] Pelvis Pelvis EXAM: US PELVIS TRANSABDOMINAL 06/28 - Complete US Complete US /2017 - [facility] DATE: 06/28/2017 8:28 AM CDT Read [...] Comments Source Systolic (mm Hg) 89 06/28/2017 [facility] Diastolic (mm Hg) 51 06/28/2017 [facility] Temperature Oral (F) 98.1 F 06/28/2017 [facility] Respitory Rate 16 06/28/2017 [facility] Heart Rate 78 06/28/2017 [facility] Respitory Rate 18 06/28/2017 [facility] Temperature Oral (F) 97.9 F 06/28/2017 [facility] Weight 45.5 06/28/2017 [facility] Heart Rate 81 06/28/2017 [facility] Systolic (mm Hg) 131 06/28/2017 [facility] Diastolic (mm Hg) 81 06/28/2017 [facility] Encounters Location Location Encounter Encounter Reason Attending ADM DC Status Source Details Type Number For Provider Date Date Visit [facility] Emergency [id number] Semaj 06/28 06/28 [place] /2017 [facility] Procedures Procedure Code Date Perfomer Comments Source
--- OUTSIDE RECORDS SUMMARY | 2018-06-08 04:09 | XMS REPORT | Clinical Summary ---
:1970 Author Organization [facility] Address [address] [place] [address] Care Team Providers Name Role Phone Sharpless [...] constipation; Acute superficial gastritis without hemorrhage after 06/07/2017 Social History Tobacco Use Types [...] Not on file Results Not on fileafter 06/07/2017
--- NOTE | 2018-06-08 04:18 | ER ---
Nurse's Notes [facility] Name: Dayami Espinosa Age: 48 yrs Sex: Female : 1970 Arrival Date: 06/08/2018 Time: 04:07 Bed 7 Private MD: Diagnosis: Nausea Presentation: 06/08 04:10 Presenting complaint: Patient states: nausea x 1 week. 4 mg zofran given per EMS. tl2 Transition of care: patient was not received from another setting of care. Onset of symptoms was June 02, 2018. Risk Assessment: Do you want to hurt yourself or someone else? Patient reports no desire to harm self or others. Initial Sepsis Screen: Does the patient meet any 2 criteria? No. Patient's initial sepsis screen is negative. Does the patient have a suspected source of infection? No. Patient's initial sepsis screen is negative. Care prior to arrival: Medication(s) given: zofran 4 mg, IV initiated. 18 GA, in the right antecubital area. 04:10 Method Of Arrival: EMS: [facility] tl2 04:10 Acuity: JAZMIN 4 tl2 Triage Assessment: 04:11 General: Appears in no apparent distress. comfortable, Behavior is cooperative, tl2 appropriate for age, agitated. Pain: Complains of pain in abdomen. Neuro: Level of Consciousness is awake, alert, obeys commands, Oriented to person, place, time, situation. Cardiovascular: Denies chest pain. Respiratory: Airway is patent Respiratory effort is even, unlabored, Respiratory pattern is regular, symmetrical. GI: Reports nausea. : No signs and/or symptoms were reported regarding the genitourinary system. Derm: Skin is pink, warm \T\ dry. Historical: - Allergies: 04:11 Amoxicillin; tl2 04:11 Ibuprofen; tl2 04:11 Pseudoephedrine; tl2 - Home Meds: 04:11 Depakote 250 mg Oral TbEC 1 tab in the morning for Bipolar Disorder in Remission tl2 [Active]; Depakote 500 mg Oral TbEC nightly [Active]; - PMHx: 04:11 Anemia; Bipolar disorder; gastritis; UTI; tl2 - Immunization history:: Adult Immunizations up to date. - Social history:: Smoking status: Patient uses tobacco products, denies chronic smoking, but will smoke occasionally. - Ebola Screening: : No symptoms or risks identified at this time. Screenin:14 Abuse screen: Denies threats or abuse. Nutritional screening: No deficits noted. tl2 Tuberculosis screening: No symptoms or risk factors identified. Fall Risk None identified. Assessment: 04:11 General: see triage assessment. tl2 Vital Signs: 04:13 BP 109 / 78; Pulse 73; Resp 18; Temp 99.8(O); Pulse Ox 100% on R/A; Weight 43.09 kg; tl2 Height 5 ft. 6 in. (167.64 cm); 04:13 Body Mass Index 15.33 (43.09 kg, 167.64 cm) tl2 ED Course: 04:07 Patient arrived in ED. am2 04:10 David Gil MD is Attending Physician. ps1 04:11 Triage completed. tl2 04:11 IV discontinued, intact, bleeding controlled, No redness/swelling at site. Pressure tl2 dressing applied. 04:13 Arm band placed on right wrist. tl2 04:14 Patient has correct armband on for positive identification. Bed in low position. Call tl2 light in reach. Side rails up X 1. 04:14 No provider procedures requiring assistance completed. Maintain EMS IV. Dressing tl2 intact. Good blood return noted. Site clean \T\ dry. Gauge \T\ site: 18 g right AC. Administered Medications: No medications were administered Outcome: 04:11 Discharged to home via wheelchair. tl2 04:11 Condition: stable 04:11 Discharge instructions given to patient, Instructed on discharge instructions, follow up and referral plans. medication usage, Demonstrated understanding of instructions, follow-up care, medications, Prescriptions given X 1. 04:18 Discharge ordered by . ps1 04:29 Patient left the ED. tl2 Signatures: Lexis Hernandez RN RN tl2 Em Wu am2 David Gil MD MD ps1 Corrections: (The following items were deleted from the chart) 04:13 04:10 Presenting complaint: Patient states: abdominal pain and nausea x 1 week. 4 mg tl2 zofran given per EMS tl2
--- NOTE | 2018-06-08 04:18 | EDPHYS ---
Physician Documentation [facility] Name: Dayami Espinosa Age: 48 yrs Sex: Female : 1970 Arrival Date: 06/08/2018 Time: 04:07 Bed 7 Private MD: ED Physician David Gil HPI: 06/08 04:13 This 48 yrs old Female presents to ER via EMS with complaints of nausea. ps1 04:13 patient states that these symptoms have been going on for over a week. She states that ps1 she does not have any home medication. She was BIBEMS. She has multiple ED visits (16 visits between [facility] ED in year 2018). States that she was recently seen and evaluated and had follow up at [facility]. She states that she has taken her depakote. . Historical: - Allergies: 04:11 Amoxicillin; tl2 04:11 Ibuprofen; tl2 04:11 Pseudoephedrine; tl2 - Home Meds: 04:11 Depakote 250 mg Oral TbEC 1 tab in the morning for Bipolar Disorder in Remission tl2 [Active]; Depakote 500 mg Oral TbEC nightly [Active]; - PMHx: 04:11 Anemia; Bipolar disorder; gastritis; UTI; tl2 - Immunization history:: Adult Immunizations up to date. - Social history:: Smoking status: Patient uses tobacco products, denies chronic smoking, but will smoke occasionally. - Ebola Screening: : No symptoms or risks identified at this time. ROS: 04:13 Constitutional: Negative for fever, chills, and weight loss, Eyes: Negative for injury, ps1 pain, redness, and discharge, Cardiovascular: Negative for chest pain, palpitations, and edema, Respiratory: Negative for shortness of breath, cough, wheezing, and pleuritic chest pain, MS/Extremity: Negative for injury and deformity, Skin: Negative for injury, rash, and discoloration, Neuro: Negative for headache, weakness, numbness, tingling, and seizure. 04:13 Abdomen/GI: Positive for nausea and vomiting. Exam: 04:13 Constitutional: This is a well developed, well nourished patient who is awake, alert, ps1 and in no acute distress. Head/Face: Normocephalic, atraumatic. Eyes: Pupils equal round and reactive to light, extra-ocular motions intact. Lids and lashes normal. Conjunctiva and sclera are non-icteric and not injected. Cardiovascular: Regular rate and rhythm. No gallops, murmurs, or rubs. Normal PMI, no JVD. No pulse deficits. Respiratory: Lungs have equal breath sounds bilaterally, clear to auscultation and percussion. No rales, rhonchi or wheezes noted. No increased work of breathing, no retractions or nasal flaring. Abdomen/GI: Soft, non-tender, with normal bowel sounds. No distension or tympany. No guarding or rebound. No evidence of tenderness throughout. Skin: Warm, dry with normal turgor. Normal color with no rashes, no lesions, and no evidence of cellulitis. MS/ Extremity: Pulses equal, no cyanosis. Neurovascular intact. Full, normal range of motion. Neuro: Awake and alert, GCS 15, oriented to person, place, time, and situation. Cranial nerves II-XII grossly intact. Sensory grossly intact. Vital Signs: 04:13 BP 109 / 78; Pulse 73; Resp 18; Temp 99.8(O); Pulse Ox 100% on R/A; Weight 43.09 kg; tl2 Height 5 ft. 6 in. (167.64 cm); 04:13 Body Mass Index 15.33 (43.09 kg, 167.64 cm) tl2 MDM: 04:13 Data reviewed: vital signs, nurses notes. ps1 04:18 Patient medically screened. ps1 04:20 ED course: patient has normal vitals and intermittent nausea for a week. Non-surgical ps1 abdomen. Cogent. Tolerating PO. Zofran given KNIFEMAN. Stable for discharge. . Administered Medications: No medications were administered Disposition: 06/08/18 04:18 Discharged to Home. Impression: Nausea. - Condition is Stable. - Discharge Instructions: Nausea, Adult. - Prescriptions for Zofran 4 mg Oral Tablet - take 1 tablet by ORAL route every 12 hours As needed; 20 tablet. - Medication Reconciliation Form, Thank You Letter, Antibiotic Education, Prescription Opioid Use form. - Follow up: Private Physician; When: As needed; Reason: Recheck today's complaints, Continuance of care, Re-evaluation by your physician. Follow up: Emergency Department; When: As needed; Reason: Worsening of condition. Signatures: Lexis Hernandez RN RN tl2 David Gil MD MD ps1 Corrections: (The following items were deleted from the chart) 04:29 04:18 06/08/2018 04:18 Discharged to Home. Impression: Nausea. Condition is Stable. tl2 Forms are Medication Reconciliation Form, Thank You Letter, Antibiotic Education, Prescription Opioid Use. Follow up: Private Physician; When: As needed; Reason: Recheck today's complaints, Continuance of care, Re-evaluation by your physician. Follow up: Emergency Department; When: As needed; Reason: Worsening of condition. ps1
== END 2018-06-08 04:29 | disposition home or self-care (01) ==
LOC: ER 04:05
DX: R11.0 Nausea (principal); F31.70 Bipolar disorder, currently in remission, most recent episode unspecified; Z72.0 Tobacco use; Z88.1 Allergy status to other antibiotic agents; Z88.6 Allergy status to analgesic agent; Z88.8 Allergy status to other drugs, medicaments and biological substances
CPT/HCPCS: 99283

== ENCOUNTER 2018-06-12 04:01 | Emergency (ER) | payer SELFPAY ==
--- OUTSIDE RECORDS SUMMARY | 2018-06-12 04:04 | XMS REPORT | Clinical Summary ---
:1970 Author Organization [facility] Address [address] [place] [address] Care Team Providers Name Role Phone Sharpless [...] constipation; Acute superficial gastritis without hemorrhage after 06/11/2017 Social History Tobacco Use Types Packs/Day Years [...] Not on file Results Not on fileafter 06/11/2017
--- OUTSIDE RECORDS SUMMARY | 2018-06-12 04:04 | XMS REPORT | Clinical Summary ---
:1970 Author Organization [facility] Address [address] [place] [address] Care Team Providers Name Role Phone Asked, [...] right knee MD Luisito (Primary Dx) after 06/11/2017 Social History Tobacco Use Types [...] procedure are in the results section. after 06/11/[address] Renal Stone Protocol (07/11/2017 2:53 [...] of unclear etiology and clinical significance. [facility]-[id number] Procedure Note Interface, Radiology Results Incoming - [...] of unclear etiology and clinical significance. [facility]-[id number] Performing Organization Address [facility] Phone Number [facility] [address] [place] [address] hCG qualitative, urine screen (07/11/2017 2:29 AM CDT) [facility] qualitative, urine NegativeComment: [facility] DEPARTMENT OF Sensitivity of HCG test: 25 PATHOLOGY AND GENOMIC mIU/mL MEDICINE Specimen Urine Performing Organization Address City/[facility] Phone Number [facility] DEPARTMENT OF PATHOLOGY AND [address] [place] [id number] GENOMIC MEDICINE Urinalysis screen and microscopy, with reflex to culture (07/11/2017 1:57 AM CDT) Specimen site Random void [facility] DEPARTMENT OF PATHOLOGY AND GENOMIC MEDICINE Color, UA Red [facility] DEPARTMENT OF PATHOLOGY AND GENOMIC MEDICINE Appearance, UA Cloudy [facility] DEPARTMENT OF PATHOLOGY AND GENOMIC MEDICINE Specific gravity, UA 1.018 1.001 - 1.035 [facility] DEPARTMENT OF PATHOLOGY AND GENOMIC MEDICINE pH, UA 6.0 5.0 - 8.5 [facility] DEPARTMENT OF PATHOLOGY AND GENOMIC MEDICINE Protein, UA 1+ (A) Negative [facility] DEPARTMENT OF PATHOLOGY AND GENOMIC MEDICINE Glucose, UA Negative Negative [facility] DEPARTMENT OF PATHOLOGY AND GENOMIC MEDICINE Ketones, UA Negative Negative [facility] DEPARTMENT OF PATHOLOGY AND GENOMIC MEDICINE Bilirubin, UA Negative Negative [facility] DEPARTMENT OF PATHOLOGY AND GENOMIC MEDICINE Blood, UA Moderate (A) Negative [facility] DEPARTMENT OF PATHOLOGY AND GENOMIC MEDICINE Nitrite, UA Positive (A) Negative [facility] DEPARTMENT OF PATHOLOGY AND GENOMIC MEDICINE Urobilinogen, UA 2.0 (A) <2.0 [facility] DEPARTMENT OF PATHOLOGY AND GENOMIC MEDICINE Leukocyte esterase, UA Large (A) Negative [facility] DEPARTMENT OF PATHOLOGY AND GENOMIC MEDICINE Epithelial cells, UA 3 /HPF [facility] DEPARTMENT OF PATHOLOGY AND GENOMIC MEDICINE WBC, UA >180 (H) 0 - 4 /HPF [facility] DEPARTMENT OF PATHOLOGY AND GENOMIC MEDICINE RBC, UA 7 (H) 0 - 5 /HPF [facility] DEPARTMENT OF PATHOLOGY AND GENOMIC MEDICINE Bacteria, UA Many (A) None seen [facility] DEPARTMENT OF PATHOLOGY AND GENOMIC MEDICINE Yeast, UA None seen [facility] DEPARTMENT OF PATHOLOGY AND GENOMIC MEDICINE Yeast with pseudohyphae, UA None seen [facility] DEPARTMENT OF PATHOLOGY AND GENOMIC MEDICINE Specimen Urine Performing Organization Address City/[facility] Phone Number [facility] DEPARTMENT OF PATHOLOGY AND [address] [place] [address] Gram stain (07/11/2017 1:57 AM CDT) Gram stain result Many WBC's [facility] DEPARTMENT OF PATHOLOGY Many Gram positive cocci in clusters AND GENOMIC MEDICINE Comment: Specimen Information Specimen Source: Urine Specimen Site: Random void Specimen Urine - Random void Performing Organization Address City/[facility] Phone Number [facility] DEPARTMENT OF PATHOLOGY AND [address] [place] [address] Urine culture (07/11/2017 1:57 AM CDT) Urine culture isolate Staphylococcus aureus [facility] DEPARTMENT OF 10-5 cfu/ml PATHOLOGY AND [...] RAH 1 mcg/mL: Susceptible Performing Organization Address [facility] Phone Number [facility] DEPARTMENT OF PATHOLOGY AND [address] [place] [address] GENOMIC MEDICINE XR Knee 1 Or 2 Vw Right (07/06/2017 2:34 AM CDT) Narrative Performed At EXAM:XR KNEE 1 OR 2 VW RIGHT RADIANT CLINICAL HISTORY:RECENT TRAUMAKNEE COMPARISON:None. IMPRESSION: 1.No evidence of acute displaced right knee fracture or dislocation. No significant joint effusion. Question of mild medial soft tissue swelling. [facility]-[id number] Procedure Note Interface, Radiology Results Incoming - 07/06/2017 2:38 AM CDT EXAM: XR KNEE 1 OR 2 VW RIGHT CLINICAL HISTORY: RECENT TRAUMA KNEE COMPARISON: None. IMPRESSION: 1. No evidence of acute displaced right knee fracture or dislocation. No significant joint effusion. Question of mild medial soft tissue swelling. [facility]-[id number] Performing Organization Address [facility] Phone Number [facility] [address] [place] [address] after 06/11/2017 Advance Directives Patient has advance care planning documents on file. For more information, please contact:Sergio Padron[address] [place] [id number]
--- OUTSIDE RECORDS SUMMARY | 2018-06-12 04:04 | XMS REPORT | Continuity of Care Document ---
:1970 Author Organization Interface Problems Problem Status Onset Classification Date Comments Source Date Reported HPI Active 04/13/[address] FACIAL FX Active 02/01/[address] DIZZINESS Active 02/01/[address] Left lower 07/07/19 10/04/2017 [facility] quadrant pain 18 [facility] Lower abdominal 06/29/19 10/04/2017 [facility] pain City FLANK PAIN Active 06/29/19 [place] [address] City Nicotine 10/04/2017 [facility] dependence, City unspecified, uncomplicated NONTRAUMATIC Active [facility] CHRONIC SUBDURAL Medical [facility] Center Medications Medication Details Route Status Patient Ordering Order Source Instructions Provider Date tramadol 50 mg=1 No Longer hydrochloride 50 tab, PO, Active [facility] Oral Tablet Q6H, PRN [facility] Pain, X 3 day, # 12 tab, 0 Refill(s) Ondansetron 4 MG 4 mg=1 Active Disintegrating tab, PO, 018 [facility] Tablet [Zofran] BID, PRN [facility] Nausea and Vomiting, Dissolve tab under tongue, # 10 tab, 0 Refill(s) Saline Flush 0.9% 10 mL, Inactive Route: [address] [place] [address] IVP, Drug City Form: INJ, Dosing Weight [...] EXAM: CT BRAIN WITHOUT CONTRAST 04/13 - [facility] contrast CT contrast CT /2019 [facility] DATE: 04/13/2018 Read by: [...] day. Brain/Neck Brain/Neck EXAM: CTA BRAIN 01/31 [facility] CTA CTA /2018 - Medical EXAM: [...] CT HEAD WITH AND WITHOUT CONTRAST 01/31 [facility] contrast CT contrast CT /2018 - Medical This report was dictated by a [employer]at[employer] Consultant/Fellow. I have personally reviewed the images as [...] 1view EXAM: XR CHEST 1 VIEW 01/31 [facility] DX DX /2018 - Medical This report was dictated by a [employer] Consultant/Fellow. I have personally reviewed the images as [...] Lvl 172 unit/L 73 - 393 06/28 [facility] CHEM PANEL Globulin 3.5 g/dL 2.7 - 4.2 06/28 [facility] CHEM PANEL A/G Ratio 1.1 0.7 - 1.6 06/28 [facility] CHEM PANEL B/C Ratio 13 6 - 25 06/28 [facility] CHEM PANEL AGAP 13.6 meq/L 10.0 - 06/28 20.0 [facility] CHEM PANEL Total 7.2 g/dL 6.4 - 8.4 06/28 [facility] CHEM PANEL Alk Phos 56 unit/L 39 - 136 06/28 [facility] CHEM PANEL Bili Total 0.2 mg/dL 0.2 - 1.3 06/28 [facility] CHEM PANEL Potassium 3.6 meq/L 3.5 - 5.1 06/28 Lvl [facility] CHEM PANEL Sodium Lvl 139 meq/L 135 - 145 06/28 [facility] CHEM PANEL Calcium Lvl 8.9 mg/dL 8.5 - 10.5 06/28 [facility] CHEM PANEL Chloride Lvl 105 meq/L 95 - 109 06/28 [facility] CHEM PANEL eGFR 107 06/28 Result Comment: [...] not recommended in the following populations: [address] Individuals with unstable creatinine concentrations, including [...] ALT 24 unit/L 0 - 65 06/28 [facility] CHEM PANEL AST 20 unit/L 0 - 37 06/28 [facility] CHEM PANEL CO2 24 meq/L 24 - 32 06/28 [facility] CHEM PANEL Albumin Lvl 3.7 g/dL 3.5 - 5.0 06/28 [facility] CHEM PANEL Creatinine 0.63 mg/dL 0.50 - 06/28 MH Lvl 1.40 [facility] CHEM PANEL BUN 8 mg/dL 7 - 22 06/28 [facility] CHEM PANEL Glucose Lvl 107 mg/dL 70 - 99 06/28 [facility] ENDOCRINOLO S Preg Negative Negative 06/28 [facility]* [facility] (06/28/17 6:15 AM) HEMATOLOGY RDW 15.4 % 11.5 - 06/28 MH 14.5 [facility] HEMATOLOGY MPV 7.7 fL 7.4 - 10.4 06/28 [facility] HEMATOLOGY Platelet 355 K/CMM 133 - 450 06/28 [facility] HEMATOLOGY MCV 87.1 fL 80.0 - 06/28 98.0 [facility] HEMATOLOGY Hct 37.9 % 36.0 - 06/28 MH 48.0 [facility] HEMATOLOGY MCHC 33.3 g/dL 32.0 - 06/28 MH 36.0 [facility] HEMATOLOGY MCH 29.0 pg 27.0 - 06/28 MH 31.0 [facility] HEMATOLOGY Hgb 12.6 g/dL 12.0 - 06/28 MH 16.0 [facility] HEMATOLOGY RBC 4.35 M/CMM 4.20 - 06/28 MH 5.40 [facility] HEMATOLOGY WBC 10.7 K/CMM 3.7 - 10.4 06/28 [facility] HEMATOLOGY Monocytes # 0.8 K/CMM 0.0 - 0.8 06/28 [facility] HEMATOLOGY Eosinophils 0.2 K/CMM 0.0 - 0.5 06/28 MH # /2017 [facility] HEMATOLOGY Segs 72.1 % 45.0 - 06/28 MH 75.0 [facility] HEMATOLOGY Segs-Bands # 7.7 K/CMM 1.5 - 8.1 06/28 [facility] HEMATOLOGY Lymphocytes 2.0 K/CMM 1.0 - 5.5 06/28 # /2017 [facility] HEMATOLOGY Basophils 0.4 % 0.0 - 1.0 06/28 [facility] HEMATOLOGY Monocytes 7.2 % 2.0 - 12.0 06/28 [facility] HEMATOLOGY Eosinophils 1.7 % 0.0 - 4.0 06/28 [facility] HEMATOLOGY Lymphocytes 18.6 % 20.0 - 06/28 MH 40.0 [facility] URINE AND UA Color Colorless Yellow 06/28 [facility] *NA* [facility] (06/28/17 6:15 AM) URINE AND UA Spec Grav 1.002 <=1.030 06/28 [facility] URINE AND UA Turbidity Clear Clear 06/28 [facility] (06/28/17 6:15 AM) [facility] URINE AND UA pH 6.0 5.0 - 8.0 06/28 [facility] URINE AND UA Glucose Negative Negative 06/28 [facility] mg/dL mg/dL [facility] URINE AND UA Protein Negative Negative 06/28 [facility] mg/dL mg/dL [facility] URINE AND UA Blood Moderate Negative 06/28 [facility] *ABN* [facility] (06/28/17 6:15 AM) URINE AND UA Bili Negative Negative 06/28 [facility] *NA* [facility] (06/28/17 6:15 AM) URINE AND UA Nitrite Negative Negative 06/28 [facility] (06/28/17 6:15 AM) [facility] URINE AND UA Hyal Cast 1 /LPF 0 - 2 06/28 [facility] URINE AND UA Mucus Few /LPF None Seen 06/28 [facility] /LPF [facility] URINE AND UA <=1.0 0.1 - 1.0 06/28 [facility] Urobilinogen mg/dL [facility] URINE AND UA Ketones Negative 06/28 [facility] URINE AND UA Bacteria Occasional None Seen 06/28 [facility] /HPF /HPF /2017 [facility] URINE AND UA Sq Epi Occasional Few /LPF 06/28 [facility] /LPF /2017 [facility] URINE AND UA Leuk Est Negative Negative 06/28 [facility] /2017 [facility] RBC 2 /HPF 0 - 2 06/28 [facility] URINE AND UA WBC 1 /HPF 0 - 5 06/28 [facility] Pelvis Pelvis EXAM: US PELVIS TRANSABDOMINAL 06/28 - Complete US Complete US /2017 - [facility] DATE: 06/28/2017 8:28 AM CDT Read by: [...] Comments Source Systolic (mm Hg) 89 06/28/2017 [facility] Diastolic (mm Hg) 51 06/28/2017 [facility] Temperature Oral (F) 98.1 F 06/28/2017 [facility] Respitory Rate 16 06/28/2017 [facility] Heart Rate 78 06/28/2017 [facility] Respitory Rate 18 06/28/2017 [facility] Temperature Oral (F) 97.9 F 06/28/2017 [facility] Weight 45.5 06/28/2017 [facility] Heart Rate 81 06/28/2017 [facility] Systolic (mm Hg) 131 06/28/2017 [facility] Diastolic (mm Hg) 81 06/28/2017 [facility] Encounters Location Location Encounter Encounter Reason Attending ADM DC Status Source Details Type Number For Provider Date Date Visit [facility] Emergency [id number] Semaj 06/28 06/28 [place] /2017 [facility] Procedures Procedure Code Date Perfomer Comments Source
--- OUTSIDE RECORDS SUMMARY | 2018-06-12 04:05 | XMS REPORT ---
:1970 [facility] Address [address] [place] [address] Care Team Providers Name Role Phone UNKNOWN, REFFERING Primary Care Provider Unavailable Problems This patient has no known problems. Allergies, Adverse Reactions, Alerts This patient has no known allergies or adverse reactions. Medications This patient has no known medications. Encounters Start End Encounter Admission Attending Care Care Encounter Date/Time Date/Time Type Type Clinicians Facility Department ID 2017-07-02 2017-07-02 Emergency E [facility] MED [id number] 08:16:00 08:16:00
--- NOTE | 2018-06-12 04:54 | ER ---
Nurse's Notes [facility] Name: Dayami Espinosa Age: 48 yrs Sex: Female : 1970 Arrival Date: 06/12/2018 Time: 04:11 Bed 16 Private MD: Diagnosis: chronic abdominal pain Presentation: 06/12 04:00 Presenting complaint: EMS states: She felt like she was going to pass out. Reports jb4 lower mid abdominal pain, rated 10/10. 04:00 Transition of care: patient was not received from another setting of care. Onset of jb4 symptoms was June 12, 2018. Risk Assessment: Do you want to hurt yourself or someone else? Patient reports no desire to harm self or others. Initial Sepsis Screen: Does the patient meet any 2 criteria? No. Patient's initial sepsis screen is negative. Does the patient have a suspected source of infection? No. Patient's initial sepsis screen is negative. Care prior to arrival: None. 04:00 Method Of Arrival: EMS: [facility] jb4 04:00 Acuity: JAZMIN 3 jb4 Triage Assessment: 04:00 General: Appears in no apparent distress. comfortable, Behavior is calm, cooperative, jb4 appropriate for age, Smells of alcohol. Pain: Complains of pain in suprapubic area Pain does not radiate. Pain currently is 7 out of 10 on a pain scale. EENT: No signs and/or symptoms were reported regarding the EENT system. Neuro: Level of Consciousness is awake, alert, obeys commands, Oriented to person, place, time, situation. Cardiovascular: Patient's skin is warm and dry. Respiratory: Airway is patent Respiratory effort is even, unlabored, Respiratory pattern is regular, symmetrical. GI: Reports lower abdominal pain. : No signs and/or symptoms were reported regarding the genitourinary system. Derm: Skin is intact, Skin is pink, warm \T\ dry. Musculoskeletal: Circulation, motion, and sensation intact. Historical: - Allergies: 04:00 Amoxicillin; jb4 04:00 Ibuprofen; jb4 04:00 Pseudoephedrine; jb4 - Home Meds: 04:00 Depakote 250 mg Oral TbEC 1 tab in the morning for Bipolar Disorder in Remission jb4 [Active]; Depakote 500 mg Oral TbEC nightly [Active]; - PMHx: 04:00 Anemia; Bipolar disorder; gastritis; UTI; jb4 - PSHx: 04:00 brain surgery; jb4 - Immunization history:: Adult Immunizations up to date, Last tetanus immunization: up to date Flu vaccine is not up to date. - Social history:: Smoking status: Patient uses tobacco products, smokes one pack cigarettes per day. Patient uses alcohol, occasionally. - Ebola Screening: : No symptoms or risks identified at this time. Screenin:00 Abuse screen: Denies threats or abuse. Nutritional screening: No deficits noted. jb4 Tuberculosis screening: No symptoms or risk factors identified. Fall Risk Gait- Impaired (20 pts.). Mental Status- Overestimates/Forgets Limitations (15 pts.). Total Alfred Fall Scale indicates Low Risk Score (25-44 pts). Fall prevention measures have been instituted. Side Rails Up X 2 Placed close to Nursing Station Frequent Obs/Assesments occuring. Assessment: 04:00 General: see triage assessment.. jb4 04:43 Reassessment: Patient appears in no apparent distress at this time. Patient and/or jb4 family updated on plan of care and expected duration. Pain level reassessed. Patient is alert, oriented x 3, equal unlabored respirations, skin warm/dry/pink. Vital Signs: 04:00 BP 102 / 71; Pulse 78; Resp 16; Temp 97.9(O); Pulse Ox 100% on R/A; Weight 47.63 kg jb4 (R); Height 5 ft. 3 in. (160.02 cm) (R); Pain 7/10; 04:43 BP 100 / 71; Pulse 70; Resp 16; Pulse Ox 100% on R/A; jb4 04:00 Body Mass Index 18.60 (47.63 kg, 160.02 cm) 4 ED Course: 04:00 Arm band placed on left wrist. jb4 04:00 Patient has correct armband on for positive identification. Bed in low position. Call [facility] light in reach. Side rails up X2. Pulse ox on. NIBP on. 04:11 Patient arrived in ED. jb4 04:12 Dylan Puente RN is Primary Nurse. jb4 04:13 Triage completed. jb4 04:33 Isai Isabel MD is Attending Physician. tw4 04:57 No provider procedures requiring assistance completed. Patient did not have IV access jb4 during this emergency room visit. Administered Medications: No medications were administered Outcome: 04:53 Discharge ordered by . tw4 04:57 Medical screen evaluation completed per provider. Patient declined treatment. jb4 04:57 Condition: stable 04:57 Discharge instructions given to patient, Instructed on discharge instructions, follow up and referral plans. Demonstrated understanding of instructions, follow-up care. 04:58 Patient left the ED. jb4 Signatures: Dylan Puente RN RN jb4 Isai Isabel MD MD tw4
--- NOTE | 2018-06-12 04:54 | EDPHYS ---
Physician Documentation [facility] Name: Dayami Espinosa Age: 48 yrs Sex: Female : 1970 Arrival Date: 06/12/2018 Time: 04:11 Bed 16 Private MD: ED Physician Isai Isabel HPI: 06/12 04:44 This 48 yrs old Female presents to ER via EMS with complaints of abdominal tw4 pain. 04:44 The patient presents with abdominal pain in the periumbilical area. right lower tw4 quadrant, in the left lower quadrant. Onset: The symptoms/episode began/occurred 2 week(s) ago. The symptoms do not radiate. Associated signs and symptoms: none. The symptoms are described as dull. Modifying factors: The symptoms are alleviated by nothing, the symptoms are aggravated by. Severity of pain: At its worst the pain was mild in the emergency department the pain has resolved. The patient has not experienced similar symptoms in the past. Historical: - Allergies: 04:00 Amoxicillin; jb4 04:00 Ibuprofen; jb4 04:00 Pseudoephedrine; jb4 - Home Meds: 04:00 Depakote 250 mg Oral TbEC 1 tab in the morning for Bipolar Disorder in Remission jb4 [Active]; Depakote 500 mg Oral TbEC nightly [Active]; - PMHx: 04:00 Anemia; Bipolar disorder; gastritis; UTI; jb4 - PSHx: 04:00 brain surgery; jb4 - Immunization history:: Adult Immunizations up to date, Last tetanus immunization: up to date Flu vaccine is not up to date. - Social history:: Smoking status: Patient uses tobacco products, smokes one pack cigarettes per day. Patient uses alcohol, occasionally. - Ebola Screening: : No symptoms or risks identified at this time. ROS: 04:44 Constitutional: Negative for fever, chills, and weight loss, Eyes: Negative for injury, tw4 pain, redness, and discharge, ENT: Negative for injury, pain, and discharge, Cardiovascular: Negative for chest pain, palpitations, and edema, Respiratory: Negative for shortness of breath, cough, wheezing, and pleuritic chest pain, MS/Extremity: Negative for injury and deformity, Skin: Negative for injury, rash, and discoloration, Neuro: Negative for headache, weakness, numbness, tingling, and seizure. 04:44 Abdomen/GI: Positive for abdominal pain, Negative for nausea and vomiting, nausea, vomiting, and diarrhea, nausea, diarrhea, anorexia, black/tarry stool, rectal pain. Exam: 04:44 Constitutional: This is a well developed, well nourished patient who is awake, alert, tw4 and in no acute distress. Head/Face: Normocephalic, atraumatic. Chest/axilla: Normal chest wall appearance and motion. Nontender with no deformity. No lesions are appreciated. Cardiovascular: Regular rate and rhythm with a normal S1 and S2. No gallops, murmurs, or rubs. Normal PMI, no JVD. No pulse deficits. Respiratory: Lungs have equal breath sounds bilaterally, clear to auscultation and percussion. No rales, rhonchi or wheezes noted. No increased work of breathing, no retractions or nasal flaring. Abdomen/GI: Soft, non-tender, with normal bowel sounds. No distension or tympany. No guarding or rebound. No evidence of tenderness throughout. Back: No spinal tenderness. No costovertebral tenderness. Full range of motion. MS/ Extremity: Pulses equal, no cyanosis. Neurovascular intact. Full, normal range of motion. Neuro: Awake and alert, GCS 15, oriented to person, place, time, and situation. Cranial nerves II-XII grossly intact. Motor strength 5/5 in all extremities. Sensory grossly intact. Cerebellar exam normal. Normal gait. Vital Signs: 04:00 BP 102 / 71; Pulse 78; Resp 16; Temp 97.9(O); Pulse Ox 100% on R/A; Weight 47.63 kg jb4 (R); Height 5 ft. 3 in. (160.02 cm) (R); Pain 7/10; 04:43 BP 100 / 71; Pulse 70; Resp 16; Pulse Ox 100% on R/A; jb4 04:00 Body Mass Index 18.60 (47.63 kg, 160.02 cm) jb4 MDM: 04:33 Patient medically screened. tw4 04:44 Data reviewed: vital signs, nurses notes. Counseling: I had a detailed discussion with [facility] the patient and/or guardian regarding: the historical points, exam findings, and any diagnostic results supporting the discharge/admit diagnosis. Medical screen evaluation completed. EMTALA emergency medical condition absent. Special discussion: Based on the patient's Hx, exam, and Dx evaluation, there is no indication for emergent surgery or inpatient Tx. It is understood by the patient/guardian that if the Sx's persist or worsen they need to return immediately for re-evaluation. I discussed with the patient/guardian in detail that at this point there is no indication for admission to the hospital. It is understood, however, that if the symptoms persist or worsen the patient needs to return immediately for re-evaluation. ED course: Pt does not have abdominal pain at present. Pt has had multiple visits for the same complaints, medically screened patient and does wish to proceed. Administered Medications: No medications were administered Disposition: 06/12/18 04:53 Discharged to Home. Impression: chronic abdominal pain. - Condition is Stable. - Discharge Instructions: Chronic Pain. - Medication Reconciliation Form, Thank You Letter, Antibiotic Education, Prescription Opioid Use form. - Follow up: Private Physician; When: Upon discharge from the Emergency Department; Reason: If symptoms return, Recheck today's complaints, Continuance of care. - Problem is new. - Symptoms have improved. Signatures: Dylan Puente RN RN jb4 Isai Isabel MD MD tw4 Corrections: (The following items were deleted from the chart) 04:58 04:53 06/12/2018 04:53 Discharged to Home. Impression: chronic abdominal pain. jb4 Condition is Stable. Forms are Medication Reconciliation Form, Thank You Letter, Antibiotic Education, Prescription Opioid Use. Follow up: Private Physician; When: Upon discharge from the Emergency Department; Reason: If symptoms return, Recheck today's complaints, Continuance of care. Problem is new. Symptoms have improved. tw4
== END 2018-06-12 04:58 | disposition home or self-care (01) ==
LOC: ER 04:01
DX: R10.9 Unspecified abdominal pain (principal); G89.29 Other chronic pain; F31.70 Bipolar disorder, currently in remission, most recent episode unspecified; F17.210 Nicotine dependence, cigarettes, uncomplicated; Z79.899 Other long term (current) drug therapy
CPT/HCPCS: 99283

== ENCOUNTER 2018-06-23 03:38 | Emergency (ER) | payer SELFPAY ==
--- OUTSIDE RECORDS SUMMARY | 2018-06-23 03:40 | XMS REPORT | Clinical Summary ---
:1970 Author Organization [facility] Address [address] [place] [address] Care Team Providers Name Role Phone Asked, [...] right knee MD Luisito (Primary Dx) after 06/22/2017 Social History Tobacco Use Types Packs/Day Years [...] procedure are in the results section. after 06/22/[address] Renal Stone Protocol (07/11/2017 2:53 [...] is of unclear etiology and clinical significance. [facility]-[id number] Procedure Note Interface, Radiology Results Incoming - [...] is of unclear etiology and clinical significance. [facility]-[id number] Performing Organization Address [facility] Phone Number [facility] [address] [place] [address] hCG qualitative, urine screen (07/11/2017 2:29 AM CDT) [facility] qualitative, urine NegativeComment: [facility] DEPARTMENT OF Sensitivity of HCG test: 25 PATHOLOGY AND GENOMIC mIU/mL MEDICINE Specimen Urine Performing Organization Address [facility]ode Phone Number [facility] DEPARTMENT OF PATHOLOGY AND [address] [place] [phone] GENOMIC MEDICINE Urinalysis screen and microscopy, with reflex to culture (07/11/2017 1:57 AM CDT) Specimen site Random void [facility] DEPARTMENT OF PATHOLOGY AND GENOMIC MEDICINE Color, UA Red [facility] DEPARTMENT OF PATHOLOGY AND GENOMIC MEDICINE Appearance, UA Cloudy [facility] DEPARTMENT OF PATHOLOGY AND GENOMIC MEDICINE Specific gravity, UA 1.018 1.001 - 1.035 [facility] DEPARTMENT OF PATHOLOGY AND GENOMIC MEDICINE pH, UA 6.0 5.0 - 8.5 [facility] DEPARTMENT OF PATHOLOGY AND GENOMIC MEDICINE Protein, UA 1+ (A) Negative [facility] DEPARTMENT OF PATHOLOGY AND GENOMIC MEDICINE Glucose, UA Negative Negative [facility] DEPARTMENT OF PATHOLOGY AND GENOMIC MEDICINE Ketones, UA Negative Negative [facility] DEPARTMENT OF PATHOLOGY AND GENOMIC MEDICINE Bilirubin, UA Negative Negative [facility] DEPARTMENT OF PATHOLOGY AND GENOMIC MEDICINE Blood, UA Moderate (A) Negative [facility] DEPARTMENT OF PATHOLOGY AND GENOMIC MEDICINE Nitrite, UA Positive (A) Negative [facility] DEPARTMENT OF PATHOLOGY AND GENOMIC MEDICINE Urobilinogen, UA 2.0 (A) <2.0 [facility] DEPARTMENT OF PATHOLOGY AND GENOMIC MEDICINE Leukocyte esterase, UA Large (A) Negative [facility] DEPARTMENT OF PATHOLOGY AND GENOMIC MEDICINE Epithelial cells, UA 3 /HPF [facility] DEPARTMENT OF PATHOLOGY AND GENOMIC MEDICINE WBC, UA >180 (H) 0 - 4 /HPF [facility] DEPARTMENT OF PATHOLOGY AND GENOMIC MEDICINE RBC, UA 7 (H) 0 - 5 /HPF [facility] DEPARTMENT OF PATHOLOGY AND GENOMIC MEDICINE Bacteria, UA Many (A) None seen [facility] DEPARTMENT OF PATHOLOGY AND GENOMIC MEDICINE Yeast, UA None seen [facility] DEPARTMENT OF PATHOLOGY AND GENOMIC MEDICINE Yeast with pseudohyphae, UA None seen [facility] DEPARTMENT OF PATHOLOGY AND GENOMIC MEDICINE Specimen Urine Performing Organization Address City/[facility]ercode Phone Number [facility] DEPARTMENT OF PATHOLOGY AND [address] [place] [address] Gram stain (07/11/2017 1:57 AM CDT) Gram stain result Many WBC's [facility] DEPARTMENT OF PATHOLOGY Many Gram positive cocci in clusters AND GENOMIC MEDICINE Comment: Specimen Information Specimen Source: Urine Specimen Site: Random void Specimen Urine - Random void Performing Organization Address [facility]ode Phone Number [facility] DEPARTMENT OF PATHOLOGY AND [address] [place] [address] Urine culture (07/11/2017 1:57 AM CDT) Urine culture isolate Staphylococcus aureus [facility] DEPARTMENT OF 10-5 cfu/ml PATHOLOGY AND [...] 1 mcg/mL: Susceptible Performing Organization Address [facility]ercode Phone Number [facility] DEPARTMENT OF PATHOLOGY AND [address] [place] [address] GENOMIC MEDICINE XR Knee 1 Or 2 Vw Right (07/06/2017 2:34 AM CDT) Narrative Performed At EXAM:XR KNEE 1 OR 2 VW RIGHT [facility] CLINICAL HISTORY:RECENT TRAUMAKNEE COMPARISON:None. IMPRESSION: 1.No evidence of acute displaced right knee fracture or dislocation. No significant joint effusion. Question of mild medial soft tissue swelling. [facility]-[id number] Procedure Note Interface, Radiology Results Incoming - 07/06/2017 2:38 AM CDT EXAM: XR KNEE 1 OR 2 VW RIGHT CLINICAL HISTORY: RECENT TRAUMA KNEE COMPARISON: None. IMPRESSION: 1. No evidence of acute displaced right knee fracture or dislocation. No significant joint effusion. Question of mild medial soft tissue swelling. [facility]-[id number] Performing Organization Address [facility] Centercoal Phone Number [facility] [address] [place] [address] after 06/22/2017 Advance Directives Patient has advance care planning documents on file. For more information, please contact:Sergio Padron[address] [place] [phone]
--- OUTSIDE RECORDS SUMMARY | 2018-06-23 03:40 | XMS REPORT | Clinical Summary ---
:[address] [facility] Address [address] [place] [address] Care Team Providers Name Role Phone Sharpless [...] constipation; Acute superficial gastritis without hemorrhage after 06/22/2017 Social History Tobacco Use Types [...] Not on file Results Not on fileafter 06/22/2017
--- OUTSIDE RECORDS SUMMARY | 2018-06-23 03:41 | XMS REPORT ---
:1970 [facility] Address [address] [place] [address] Care Team Providers Name Role Phone UNKNOWN, REFFERING Primary Care Provider Unavailable Problems This patient has no known problems. Allergies, Adverse Reactions, Alerts This patient has no known allergies or adverse reactions. Medications This patient has no known medications. Encounters Start End Encounter Admission Attending Care Care Encounter Date/Time Date/Time Type Type Clinicians Facility Department ID 2017-07-02 2017-07-02 Emergency E [facility] [id number] 08:16:00 08:16:00
--- OUTSIDE RECORDS SUMMARY | 2018-06-23 03:41 | XMS REPORT | Continuity of Care Document ---
:1970 Author Organization Interface Problems Problem Status Onset Classification Date Comments Source Date Reported HPI Active 04/13/[address] FACIAL FX Active 02/01/[address] DIZZINESS Active 02/01/[address] Left lower 07/07/19 10/04/2017 [facility] quadrant pain 18 [facility] Lower abdominal 06/29/19 10/04/2017 [facility] pain [place] FLANK PAIN Active 06/29/19 [place] [address] [place] Nicotine 10/04/2017 [facility] dependence, City unspecified, uncomplicated NONTRAUMATIC Active [facility] CHRONIC SUBDURAL Medical HEMORRHAGE Center Medications Medication Details Route Status Patient Ordering Order Source Instructions Provider Date tramadol 50 mg=1 No Longer hydrochloride 50 tab, PO, Active [facility] Oral Tablet Q6H, PRN [facility] Pain, X 3 day, # 12 tab, 0 Refill(s) Ondansetron 4 MG 4 mg=1 Active Disintegrating tab, PO, 018 [facility] Tablet [Zofran] BID, PRN [facility] Nausea and Vomiting, Dissolve tab under tongue, # 10 tab, 0 Refill(s) Saline Flush 0.9% 10 mL, Inactive Route: [address] [place] [address] IVP, Drug City Form: INJ, Dosing Weight [...] CT BRAIN WITHOUT CONTRAST 04/13 - [facility] contrast CT contrast CT /2019 [facility] DATE: 04/13/2018 Read by: Lacey Akhtar [...] day. Brain/Neck Brain/Neck EXAM: CTA BRAIN 01/31 [facility] CTA CTA /2018 - Medical EXAM: [...] CT HEAD WITH AND WITHOUT CONTRAST 01/31 [facility] contrast CT contrast CT /2018 - Medical This report was dictated by a Horse Exerciser/Fellow. I have personally reviewed the images as [...] 1view EXAM: XR CHEST 1 VIEW 01/31 [facility] DX DX /2018 - Medical This report was dictated by a Horse Exerciser/Fellow. I have personally reviewed the images as [...] unit/L 73 - 393 06/28 [facility] CHEM PANEL Globulin 3.5 g/dL 2.7 - 4.2 06/28 [facility] CHEM PANEL A/G Ratio 1.1 0.7 - 1.6 06/28 [facility] CHEM PANEL B/C Ratio 13 6 - 25 06/28 [facility] CHEM PANEL AGAP 13.6 meq/L 10.0 - 06/28 20.0 [facility] CHEM PANEL Total 7.2 g/dL 6.4 - 8.4 06/28 [facility] CHEM PANEL Alk Phos 56 unit/L 39 - 136 06/28 [facility] CHEM PANEL Bili Total 0.2 mg/dL 0.2 - 1.3 06/28 [facility] CHEM PANEL Potassium 3.6 meq/L 3.5 - 5.1 06/28 Lvl [facility] CHEM PANEL Sodium Lvl 139 meq/L 135 - 145 06/28 [facility] CHEM PANEL Calcium Lvl 8.9 mg/dL 8.5 - 10.5 06/28 [facility] CHEM PANEL Chloride Lvl 105 meq/L 95 - 109 06/28 [facility] CHEM PANEL eGFR 107 06/28 [...] is not recommended in the following populations: [address] Individuals with unstable creatinine concentrations, including [...] unit/L 0 - 65 06/28 [facility] CHEM PANEL AST 20 unit/L 0 - 37 06/28 [facility] CHEM PANEL CO2 24 meq/L 24 - 32 06/28 [facility] CHEM PANEL Albumin Lvl 3.7 g/dL 3.5 - 5.0 06/28 [facility] CHEM PANEL Creatinine 0.63 mg/dL 0.50 - 06/28 MH Lvl 1.40 [facility] CHEM PANEL BUN 8 mg/dL 7 - 22 06/28 [facility] CHEM PANEL Glucose Lvl 107 mg/dL 70 - 99 06/28 [facility] ENDOCRINOLO S Preg Negative Negative 06/28 [facility]* [facility] (06/28/17 6:15 AM) HEMATOLOGY RDW 15.4 % 11.5 - 06/28 MH 14.5 [facility] HEMATOLOGY MPV 7.7 fL 7.4 - 10.4 06/28 [facility] HEMATOLOGY Platelet 355 K/CMM 133 - 450 06/28 [facility] HEMATOLOGY MCV 87.1 fL 80.0 - 06/28 98.0 [facility] HEMATOLOGY Hct 37.9 % 36.0 - 06/28 MH 48.0 [facility] HEMATOLOGY MCHC 33.3 g/dL 32.0 - 06/28 MH 36.0 [facility] HEMATOLOGY MCH 29.0 pg 27.0 - 06/28 MH 31.0 [facility] HEMATOLOGY Hgb 12.6 g/dL 12.0 - 06/28 MH 16.0 [facility] HEMATOLOGY RBC 4.35 M/CMM 4.20 - 06/28 MH 5.40 [facility] HEMATOLOGY WBC 10.7 K/CMM 3.7 - 10.4 06/28 [facility] HEMATOLOGY Monocytes # 0.8 K/CMM 0.0 - 0.8 06/28 [facility] HEMATOLOGY Eosinophils 0.2 K/CMM 0.0 - 0.5 06/28 MH # /2017 [facility] HEMATOLOGY Segs 72.1 % 45.0 - 06/28 MH 75.0 [facility] HEMATOLOGY Segs-Bands # 7.7 K/CMM 1.5 - 8.1 06/28 [facility] HEMATOLOGY Lymphocytes 2.0 K/CMM 1.0 - 5.5 06/28 # /2017 [facility] HEMATOLOGY Basophils 0.4 % 0.0 - 1.0 06/28 [facility] HEMATOLOGY Monocytes 7.2 % 2.0 - 12.0 06/28 [facility] HEMATOLOGY Eosinophils 1.7 % 0.0 - 4.0 06/28 [facility] HEMATOLOGY Lymphocytes 18.6 % 20.0 - 06/28 MH 40.0 [facility] URINE AND UA Color Colorless Yellow 06/28 [facility] *NA* [facility] (06/28/17 6:15 AM) URINE AND UA Spec Grav 1.002 <=1.030 06/28 [facility] URINE AND UA Turbidity Clear Clear 06/28 [facility] (06/28/17 6:15 AM) [facility] URINE AND UA pH 6.0 5.0 - 8.0 06/28 [facility] URINE AND UA Glucose Negative Negative 06/28 STOOL mg/dL mg/dL [facility] URINE AND UA Protein Negative Negative 06/28 [facility] mg/dL mg/dL [facility] URINE AND UA Blood Moderate Negative 06/28 [facility] *ABN* [facility] (06/28/17 6:15 AM) URINE AND UA Bili Negative Negative 06/28 [facility] *NA* [facility] (06/28/17 6:15 AM) URINE AND UA Nitrite Negative Negative 06/28 [facility] (06/28/17 6:15 AM) [facility] URINE AND UA Hyal Cast 1 /LPF 0 - 2 06/28 STOOL [facility] URINE AND UA Mucus Few /LPF None Seen 06/28 STOOL /LPF [facility] URINE AND UA <=1.0 0.1 - 1.0 06/28 ST[facility]OL Urobilinogen mg/dL [facility] URINE AND UA Ketones Negative 06/28 STOOL [facility] URINE AND UA Bacteria Occasional None Seen 06/28 [facility] /HPF /HPF /2017 [facility] URINE AND UA Sq Epi Occasional Few /LPF 06/28 [facility] /LPF /2017 [facility] URINE AND UA Leuk Est Negative Negative 06/28 STOOL /2017 [facility] RBC 2 /HPF 0 - 2 06/28 STOOL [facility] URINE AND UA WBC 1 /HPF 0 - 5 06/28 STOOL [facility] Pelvis Pelvis EXAM: US PELVIS TRANSABDOMINAL 06/28 - Complete US Complete US /2017 - [facility] DATE: 06/28/2017 8:28 AM CDT [...] Comments Source Systolic (mm Hg) 89 06/28/2017 [facility] Diastolic (mm Hg) 51 06/28/2017 [facility] Temperature Oral (F) 98.1 F 06/28/2017 [facility] Respitory Rate 16 06/28/2017 [facility] Heart Rate 78 06/28/2017 [facility] Respitory Rate 18 06/28/2017 [facility] Temperature Oral (F) 97.9 F 06/28/2017 [facility] Weight 45.5 06/28/2017 [facility] Heart Rate 81 06/28/2017 [facility] Systolic (mm Hg) 131 06/28/2017 [facility] Diastolic (mm Hg) 81 06/28/2017 [facility] Encounters Location Location Encounter Encounter Reason Attending ADM DC Status Source Details Type Number For Provider Date Date Visit [facility] Emergency [id number] Semaj 06/28 06/28 COLLETTE [place] /2017 [facility] Procedures Procedure Code Date Perfomer Comments Source
[2018-06-23] MEDS ORDERED: METHYLPREDNISOLONE 125 MG INJ ONE (04:11)
[2018-06-23] MEDS ORDERED: LEVALBUTEROL 1.25 MG/3 ML NEB ONE (04:12)
[2018-06-23] MEDS ORDERED: NA CHLORIDE 0.9% 1,000 ML ONE (04:12)
--- NOTE | 2018-06-23 06:24 | ER ---
Nurse's Notes [facility] Name: Dayami Espinosa Age: 48 yrs Sex: Female : 1970 Arrival Date: 06/23/2018 Time: 03:40 Bed 13 Private MD: Diagnosis: Cough;Acute upper respiratory infection, unspecified Presentation: 06/23 03:41 Presenting complaint: EMS states: Pt reports cough, nausea and vomiting. Transition of ea care: patient was not received from another setting of care. Onset of symptoms was June 23, 2018. Risk Assessment: Do you want to hurt yourself or someone else? Patient reports no desire to harm self or others. Initial Sepsis Screen: Does the patient meet any 2 criteria? No. Patient's initial sepsis screen is negative. Does the patient have a suspected source of infection? No. Patient's initial sepsis screen is negative. Care prior to arrival: None. 03:41 Method Of Arrival: EMS: [facility] 03:41 Acuity: JAZMIN 4 ea Triage Assessment: 03:55 General: Appears in no apparent distress. Behavior is calm. Pain: Denies pain. Neuro: ea Level of Consciousness is awake, alert, obeys commands, Oriented to person, place, time, situation. Respiratory: Airway is patent Respiratory effort is even, unlabored, Respiratory pattern is regular, symmetrical. Derm: Skin is pink, warm \T\ dry. 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 - Social history:: Smoking status: Patient uses tobacco products, smokes one-half pack cigarettes per day. - Ebola Screening: : No symptoms or risks identified at this time. - Family history:: not pertinent. - Hospitalizations: : No recent hospitalization is reported. Screenin:46 Abuse screen: Denies threats or abuse. Nutritional screening: No deficits noted. ea Tuberculosis screening: No symptoms or risk factors identified. Fall Risk None identified. Assessment: 03:55 Reassessment: see triage assessment. ea 04:18 Reassessment: Patient and/or family updated on plan of care and expected duration. Pain ea level reassessed. Pt refused flu swab, provider notified. 04:27 Reassessment: pt refused flu swab. tl2 06:02 Reassessment: pt appears to be sleeping, RR even and unlabored. tl2 06:43 Reassessment: Patient and/or family updated on plan of care and expected duration. Pain ea level reassessed. Patient is alert, oriented x 3, equal unlabored respirations, skin warm/dry/pink. Discharge instructions given to patient, verbalized the understanding of instruction. Vital Signs: 03:45 BP 153 / 73; Pulse 109; Resp 20; Temp 98.7; Pulse Ox 99% on R/A; Weight 48.08 kg; ea Height 5 ft. 3 in. (160.02 cm); 06:02 Pulse 91; Resp 22; Pulse Ox 96% on R/A; tl2 03:45 Body Mass Index 18.78 (48.08 kg, 160.02 cm) ea ED Course: 03:40 Patient arrived in ED. ea 03:40 Vladimir Coelho MD is Attending Physician. rn 03:45 Triage completed. ea 03:51 Arm band placed on right wrist. Patient placed in an exam room, on a stretcher, on ea pulse oximetry. 03:52 Patient has correct armband on for positive identification. Bed in low position. Call ea light in reach. Side rails up X 1. 03:54 Jacquelin Matias, BENI is Primary Nurse. ea 04:09 X-ray completed. Portable x-ray completed in exam room. Patient tolerated procedure kw well. 04:09 XRAY Chest (1 view) In Process Unspecified. EDMS 04:27 Inserted saline lock: 22 gauge in right antecubital area, using aseptic technique. tl2 06:43 No provider procedures requiring assistance completed. IV discontinued, intact, ea bleeding controlled, No redness/swelling at site. Pressure dressing applied. Administered Medications: 04:26 Drug: NS 0.9% 1000 ml Route: IV; Rate: 1000 ml; Site: right antecubital; tl2 06:40 Follow up: Response: No adverse reaction; IV Status: Completed infusion; IV Intake: ea 1000ml 04:27 Drug: Xopenex (3) 1.25 mg Route: Inhalation; tl2 05:00 Follow up: Response: No adverse reaction ea 04:27 Drug: SOLU-Medrol 125 mg Route: IVP; Site: right antecubital; tl2 05:00 Follow up: Response: No adverse reaction ea Intake: 06:40 IV: 1000ml; Total: 1000ml. ea Outcome: 06:23 Discharge ordered by . rn 06:44 Condition: good ea 06:44 Discharge instructions given to patient, Instructed on discharge instructions, follow up and referral plans. Demonstrated understanding of instructions, follow-up care. 06:52 Patient left the ED. ea Signatures: Dispatcher [employer] EDMS Vladimir Coelho MD MD rn Whitley, Kimberlee kw Knox, Taylor RN RN tl2 Jacquelin Matias RN RN ea
--- NOTE | 2018-06-23 06:24 | EDPHYS ---
Physician Documentation [facility] Name: Dayami Espinosa Age: 48 yrs Sex: Female : 1970 Arrival Date: 06/23/2018 Time: 03:40 Bed 13 Private MD: ED Physician Vladimir Coelho HPI: 06/23 03:50 This 48 yrs old Female presents to ER via EMS with complaints of Cough. rn 03:50 The patient or guardian reports cough, flu symptoms. Onset: The symptoms/episode rn began/occurred 3 week(s) ago. Severity of symptoms: At their worst the symptoms were mild, in the emergency department the symptoms are unchanged. Modifying factors: The symptoms are alleviated by nothing, the symptoms are aggravated by nothing. The patient has experienced similar episodes in the past. 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 - Social history:: Smoking status: Patient uses tobacco products, smokes one-half pack cigarettes per day. - Ebola Screening: : No symptoms or risks identified at this time. - Family history:: not pertinent. - Hospitalizations: : No recent hospitalization is reported. 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 Exam: 04:05 Constitutional: This is a well developed, well nourished patient who is awake, alert, rn and in no acute distress. Sleeping comfortably Head/Face: Normocephalic, atraumatic. Eyes: Pupils equal round and reactive to light, extra-ocular motions intact. Lids and lashes normal. Conjunctiva and sclera are non-icteric and not injected. Cornea within normal limits. Periorbital areas with no swelling, redness, or edema. ENT: MMM, no stridor Cardiovascular: Tachycardic, regular Respiratory: Mild tachypnea with faint exp wheezing, no retractions, speaking full sentences Skin: Warm, dry MS/ Extremity: Pulses equal, no cyanosis. Neurovascular intact. Full, normal range of motion. Equal circumference. Vital Signs: 03:45 BP 153 / 73; Pulse 109; Resp 20; Temp 98.7; Pulse Ox 99% on R/A; Weight 48.08 kg; ea Height 5 ft. 3 in. (160.02 cm); 06:02 Pulse 91; Resp 22; Pulse Ox 96% on R/A; tl2 03:45 Body Mass Index 18.78 (48.08 kg, 160.02 cm) ea MDM: 03:40 Patient medically screened. rn 06:21 Differential Diagnosis: Bronchitis Upper Respiratory Infection Viral Syndrome rn Pneumonia. Data reviewed: vital signs, nurses notes, radiologic studies, plain films, and as a result, I will discharge patient. Counseling: I had a detailed discussion with the patient and/or guardian regarding: the historical points, exam findings, and any diagnostic results supporting the discharge/admit diagnosis, radiology results, the need for outpatient follow up, to return to the emergency department if symptoms worsen or persist or if there are any questions or concerns that arise at home. Refusal of service: The patient/guardian displays adequate decision making capability and despite a detailed discussion of alternatives, benefits, risks, and consequences refuses: all lab tests, Medications. Special discussion: I discussed with the patient/guardian in detail that at this point there is no indication for admission to the hospital. It is understood, however, that if the symptoms persist or worsen the patient needs to return immediately for re-evaluation. 06/23 03:47 Order name: XRAY Chest (1 view) rn 06/23 03:48 Order name: IV Start; Complete Time: 04:26 rn Administered Medications: 04:26 Drug: NS 0.9% 1000 ml Route: IV; Rate: 1000 ml; Site: right antecubital; tl2 06:40 Follow up: Response: No adverse reaction; IV Status: Completed infusion; IV Intake: ea 1000ml 04:27 Drug: Xopenex (3) 1.25 mg Route: Inhalation; tl2 05:00 Follow up: Response: No adverse reaction ea 04:27 Drug: SOLU-Medrol 125 mg Route: IVP; Site: right antecubital; tl2 05:00 Follow up: Response: No adverse reaction ea Disposition: 06/23/18 06:23 Discharged to Home. Impression: Cough, Acute upper respiratory infection, unspecified. - Condition is Stable. - Discharge Instructions: Viral Respiratory Infection, Cough, Adult. - Medication Reconciliation Form, Thank You Letter, Antibiotic Education, Prescription Opioid Use form. - Follow up: Private Physician; When: As needed; Reason: Recheck today's complaints, Re-evaluation by your physician. - Problem is new. - Symptoms have improved. Signatures: Dispatcher [employer] EDMS Vladimir Coelho MD MD rn Knox, Taylor, RN RN tl2 Jacquelin Matias RN RN ea Corrections: (The following items were deleted from the chart) 06:52 06:23 06/23/2018 06:23 Discharged to Home. Impression: Cough; Acute upper respiratory ea infection, unspecified. Condition is Stable. Forms are Medication Reconciliation Form, Thank You Letter, Antibiotic Education, Prescription Opioid Use. Follow up: Private Physician; When: As needed; Reason: Recheck today's complaints, Re-evaluation by your physician. Problem is new. Symptoms have improved. rn
--- NOTE | 2018-06-23 11:38 | RAD REPORT ---
EXAM DESCRIPTION: RAD - Chest Single View - 06/23/2018 4:09 am CLINICAL HISTORY: Cough and congestion COMPARISON: April 13, 2018 TECHNIQUE: AP portable chest was obtained 0407 hours. FINDINGS: No peripheral mass or consolidation. Patient has prominent interstitial lung markings georges lar to the prior study. Heart size and pulmonary vasculature within normal limits. No pneumothorax or pleural effusion. No acute bone or aortic finding. IMPRESSION: Prominent, chronic interstitial lung disease similar to April 2018.
== END 2018-06-23 06:52 | disposition home or self-care (01) ==
LOC: ER 03:38
DX: J06.9 Acute upper respiratory infection, unspecified (principal); F31.9 Bipolar disorder, unspecified; D64.9 Anemia, unspecified; Z88.6 Allergy status to analgesic agent; Z88.0 Allergy status to penicillin; Z88.8 Allergy status to other drugs, medicaments and biological substances; F17.210 Nicotine dependence, cigarettes, uncomplicated
CPT/HCPCS: 71045; 96361; 96374; 99284; J2930; J7030

== ENCOUNTER 2018-06-24 18:50 | Emergency (ER) | payer SELFPAY ==
--- OUTSIDE RECORDS SUMMARY | 2018-06-24 18:52 | XMS REPORT | Clinical Summary ---
:1970 Author Organization [facility] Address [address] [place] [address] Care Team Providers Name Role Phone Asked, [...] right knee MD Luisito (Primary Dx) after 06/23/2017 Social History Tobacco Use Types Packs/Day Years [...] procedure are in the results section. after 06/23/[address] Renal Stone Protocol (07/11/2017 2:53 [...] is of unclear etiology and clinical significance. [facility]-[id number] Procedure Note Interface, Radiology Results Incoming - [...] is of unclear etiology and clinical significance. [facility]-[id number] Performing Organization Address [facility] Phone Number [facility] [address] [place] [address] hCG qualitative, urine screen (07/11/2017 2:29 AM CDT) [facility] [place], [place] NegativeComment: [facility] DEPARTMENT OF Sensitivity of HCG test: 25 PATHOLOGY AND GENOMIC mIU/mL MEDICINE Specimen Urine Performing Organization Address City/[facility] Cent[facility]ode Phone Number [facility] DEPARTMENT OF PATHOLOGY AND [address] [place] [id number] GENOMIC MEDICINE Urinalysis screen and microscopy, with reflex to culture (07/11/2017 1:57 AM CDT) Specimen site Random void [facility] DEPARTMENT OF PATHOLOGY AND GENOMIC MEDICINE Color, UA Red [facility] DEPARTMENT OF PATHOLOGY AND GENOMIC MEDICINE Appearance, UA Cloudy [facility] DEPARTMENT OF PATHOLOGY AND GENOMIC MEDICINE Specific gravity, UA 1.018 1.001 - 1.035 [facility] DEPARTMENT OF PATHOLOGY AND GENOMIC MEDICINE pH, UA 6.0 5.0 - 8.5 [facility] DEPARTMENT OF PATHOLOGY AND GENOMIC MEDICINE Protein, UA 1+ (A) Negative [facility] DEPARTMENT OF PATHOLOGY AND GENOMIC MEDICINE Glucose, UA Negative Negative [facility] DEPARTMENT OF PATHOLOGY AND GENOMIC MEDICINE Ketones, UA Negative Negative [facility] DEPARTMENT OF PATHOLOGY AND GENOMIC MEDICINE Bilirubin, UA Negative Negative [facility] DEPARTMENT OF PATHOLOGY AND GENOMIC MEDICINE Blood, UA Moderate (A) Negative [facility] DEPARTMENT OF PATHOLOGY AND GENOMIC MEDICINE Nitrite, UA Positive (A) Negative [facility] DEPARTMENT OF PATHOLOGY AND GENOMIC MEDICINE Urobilinogen, UA 2.0 (A) <2.0 [facility] DEPARTMENT OF PATHOLOGY AND GENOMIC MEDICINE Leukocyte esterase, UA Large (A) Negative [facility] DEPARTMENT OF PATHOLOGY AND GENOMIC MEDICINE Epithelial cells, UA 3 /HPF [facility] DEPARTMENT OF PATHOLOGY AND GENOMIC MEDICINE WBC, UA >180 (H) 0 - 4 /HPF [facility] DEPARTMENT OF PATHOLOGY AND GENOMIC MEDICINE RBC, UA 7 (H) 0 - 5 /HPF [facility] DEPARTMENT OF PATHOLOGY AND GENOMIC MEDICINE Bacteria, UA Many (A) None seen [facility] DEPARTMENT OF PATHOLOGY AND GENOMIC MEDICINE Yeast, UA None seen [facility] DEPARTMENT OF PATHOLOGY AND GENOMIC MEDICINE Yeast with pseudohyphae, UA None seen [facility] DEPARTMENT OF PATHOLOGY AND GENOMIC MEDICINE Specimen Urine Performing Organization Address City/[facility]ode Phone Number [facility] DEPARTMENT OF PATHOLOGY AND [address] [place] [address] Gram stain (07/11/2017 1:57 AM CDT) Gram stain result Many WBC's [facility] DEPARTMENT OF PATHOLOGY Many Gram positive cocci in clusters AND GENOMIC MEDICINE Comment: Specimen Information Specimen Source: Urine Specimen Site: Random void Specimen Urine - Random void Performing Organization Address City/[facility]ode Phone Number [facility] DEPARTMENT OF PATHOLOGY AND [address] [place] [address] Urine culture (07/11/2017 1:57 AM CDT) Urine culture isolate Staphylococcus aureus [facility] DEPARTMENT OF 10-5 cfu/ml PATHOLOGY AND [...] mcg/mL: Susceptible Performing Organization Address [facility] Centercode Phone Number [facility] DEPARTMENT OF PATHOLOGY AND [address] [place] [address] GENOMIC MEDICINE XR Knee 1 Or 2 Vw Right (07/06/2017 2:34 AM CDT) Narrative Performed At EXAM:XR KNEE 1 OR 2 VW RIGHT [facility] CLINICAL HISTORY:RECENT TRAUMAKNEE COMPARISON:None. IMPRESSION: 1.No evidence of acute displaced right knee fracture or dislocation. No significant joint effusion. Question of mild medial soft tissue swelling. [facility]-[id number] Procedure Note Interface, Radiology Results Incoming - 07/06/2017 2:38 AM CDT EXAM: XR KNEE 1 OR 2 VW RIGHT CLINICAL HISTORY: RECENT TRAUMA KNEE COMPARISON: None. IMPRESSION: 1. No evidence of acute displaced right knee fracture or dislocation. No significant joint effusion. Question of mild medial soft tissue swelling. [facility]-[id number] Performing Organization Address [facility] Centerconc Phone Number [facility] [address] [place] [address] after 06/23/2017 Advance Directives Patient has advance care planning documents on file. For more information, please contact:Sergio Padron[address] [place] [id number]
--- OUTSIDE RECORDS SUMMARY | 2018-06-24 18:52 | XMS REPORT | Clinical Summary ---
:1970 Author Organization [facility] Address [address] [place] [address] Care Team Providers Name Role Phone Sharpless [...] constipation; Acute superficial gastritis without hemorrhage after 06/23/2017 Social History Tobacco Use Types [...] Not on file Results Not on fileafter 06/23/2017
--- OUTSIDE RECORDS SUMMARY | 2018-06-24 18:52 | XMS REPORT | Continuity of Care Document ---
:1970 Author Organization Interface Problems Problem Status Onset Classification Date Comments Source Date Reported HPI Active 04/13/[address] FACIAL FX Active 02/01/[address] DIZZINESS Active 02/01/[address] Left lower 07/07/19 10/04/2017 [facility] quadrant pain [address] [facility] Lower abdominal 06/29/19 10/04/2017 [facility] pain City FLANK PAIN Active 06/29/19 [place] [address] City Nicotine 10/04/2017 [facility] dependence, City unspecified, uncomplicated NONTRAUMATIC Active [facility] [place] CHRONIC SUBDURAL Medical HEMORRHAGE Center Medications Medication Details Route Status Patient Ordering Order Source Instructions Provider Date tramadol 50 mg=1 No Longer hydrochloride 50 tab, PO, Active [facility] Oral Tablet Q6H, PRN [facility] Pain, X 3 day, # 12 tab, 0 Refill(s) Ondansetron 4 MG 4 mg=1 Active Disintegrating tab, PO, 018 [facility] Tablet [Zofran] BID, PRN [facility] Nausea and Vomiting, Dissolve tab under tongue, # 10 tab, 0 Refill(s) Saline Flush 0.9% 10 mL, Inactive Route: [address] [place] [address] IVP, Drug City Form: INJ, Dosing Weight [...] EXAM: CT BRAIN WITHOUT CONTRAST 04/13 - [facility] [place] contrast CT contrast CT /2019 [facility] DATE: 04/13/2018 Read by: [...] day. Brain/Neck Brain/Neck EXAM: CTA BRAIN 01/31 [facility] CTA CTA /2018 - Medical EXAM: CTA [...] CT HEAD WITH AND WITHOUT CONTRAST 01/31 [facility] contrast CT contrast CT /2018 - Medical This report was dictated by a Photo Lab Technician/Fellow. I have personally reviewed the images as [...] 1view EXAM: XR CHEST 1 VIEW 01/31 [facility] DX DX /2018 - Medical This report was dictated by a Photo Lab Technician/Fellow. I have personally reviewed the images as [...] Lvl 172 unit/L 73 - 393 06/28 [facility] CHEM PANEL Globulin 3.5 g/dL 2.7 - 4.2 06/28 [facility] CHEM PANEL A/G Ratio 1.1 0.7 - 1.6 06/28 [facility] CHEM PANEL B/C Ratio 13 6 - 25 06/28 [facility] CHEM PANEL AGAP 13.6 meq/L 10.0 - 06/28 20.0 [facility] CHEM PANEL Total 7.2 g/dL 6.4 - 8.4 06/28 [facility] CHEM PANEL Alk Phos 56 unit/L 39 - 136 06/28 [facility] CHEM PANEL Bili Total 0.2 mg/dL 0.2 - 1.3 06/28 [facility] CHEM PANEL Potassium 3.6 meq/L 3.5 - 5.1 06/28 Lvl [facility] CHEM PANEL Sodium Lvl 139 meq/L 135 - 145 06/28 [facility] CHEM PANEL Calcium Lvl 8.9 mg/dL 8.5 - 10.5 06/28 [facility] CHEM PANEL Chloride Lvl 105 meq/L 95 - 109 06/28 [facility] CHEM PANEL eGFR 107 06/28 Result [...] is not recommended in the following populations: [address] Individuals with unstable creatinine concentrations, including [...] ALT 24 unit/L 0 - 65 06/28 [facility] CHEM PANEL AST 20 unit/L 0 - 37 06/28 [facility] CHEM PANEL CO2 24 meq/L 24 - 32 06/28 [facility] CHEM PANEL Albumin Lvl 3.7 g/dL 3.5 - 5.0 06/28 [facility] CHEM PANEL Creatinine 0.63 mg/dL 0.50 - 06/28 MH Lvl 1.40 [facility] CHEM PANEL BUN 8 mg/dL 7 - 22 06/28 [facility] CHEM PANEL Glucose Lvl 107 mg/dL 70 - 99 06/28 [facility] ENDOCRINOLO S Preg Negative Negative 06/28 [facility] (06/28/17 6:15 AM) HEMATOLOGY RDW 15.4 % 11.5 - 06/28 MH 14.5 [facility] HEMATOLOGY MPV 7.7 fL 7.4 - 10.4 06/28 [facility] HEMATOLOGY Platelet 355 K/CMM 133 - 450 06/28 [facility] HEMATOLOGY MCV 87.1 fL 80.0 - 06/28 98.0 [facility] HEMATOLOGY Hct 37.9 % 36.0 - 06/28 MH 48.0 [facility] HEMATOLOGY MCHC 33.3 g/dL 32.0 - 06/28 MH 36.0 [facility] HEMATOLOGY MCH 29.0 pg 27.0 - 06/28 MH 31.0 [facility] HEMATOLOGY Hgb 12.6 g/dL 12.0 - 06/28 MH 16.0 [facility] HEMATOLOGY RBC 4.35 M/CMM 4.20 - 06/28 MH 5.40 [facility] HEMATOLOGY WBC 10.7 K/CMM 3.7 - 10.4 06/28 [facility] HEMATOLOGY Monocytes # 0.8 K/CMM 0.0 - 0.8 06/28 [facility] HEMATOLOGY Eosinophils 0.2 K/CMM 0.0 - 0.5 06/28 MH # /2017 [facility] HEMATOLOGY Segs 72.1 % 45.0 - 06/28 MH 75.0 [facility] HEMATOLOGY Segs-Bands # 7.7 K/CMM 1.5 - 8.1 06/28 [facility] HEMATOLOGY Lymphocytes 2.0 K/CMM 1.0 - 5.5 06/28 # /2017 [facility] HEMATOLOGY Basophils 0.4 % 0.0 - 1.0 06/28 [facility] HEMATOLOGY Monocytes 7.2 % 2.0 - 12.0 06/28 [facility] HEMATOLOGY Eosinophils 1.7 % 0.0 - 4.0 06/28 [facility] HEMATOLOGY Lymphocytes 18.6 % 20.0 - 06/28 MH 40.0 [facility] URINE AND UA Color Colorless Yellow 06/28 [facility] *NA* [facility] (06/28/17 6:15 AM) URINE AND UA Spec Grav 1.002 <=1.030 06/28 [facility] URINE AND UA Turbidity Clear Clear 06/28 [facility] (06/28/17 6:15 AM) [facility] URINE AND UA pH 6.0 5.0 - 8.0 06/28 [facility] URINE AND UA Glucose Negative Negative 06/28 [facility] mg/dL mg/dL [facility] URINE AND UA Protein Negative Negative 06/28 [facility] mg/dL mg/dL [facility] URINE AND UA Blood Moderate Negative 06/28 [facility] *ABN* [facility] (06/28/17 6:15 AM) URINE AND UA Bili Negative Negative 06/28 [facility] *NA* [facility] (06/28/17 6:15 AM) URINE AND UA Nitrite Negative Negative 06/28 [facility] (06/28/17 6:15 AM) [facility] URINE AND UA Hyal Cast 1 /LPF 0 - 2 06/28 [facility] URINE AND UA Mucus Few /LPF None Seen 06/28 [facility] /LPF [facility] URINE AND UA <=1.0 0.1 - 1.0 06/28 [facility] Urobilinogen mg/dL [facility] URINE AND UA Ketones Negative 06/28 [facility] URINE AND UA Bacteria Occasional None Seen 06/28 [facility] /HPF /HPF /2017 [facility] URINE AND UA Sq Epi Occasional Few /LPF 06/28 [facility] /LPF /2017 [facility] URINE AND UA Leuk Est Negative Negative 06/28 [facility] /2017 [facility] RBC 2 /HPF 0 - 2 06/28 [facility] URINE AND UA WBC 1 /HPF 0 - 5 06/28 [facility] Pelvis Pelvis EXAM: US PELVIS TRANSABDOMINAL 06/28 - Complete US Complete US /2017 - [facility] DATE: 06/28/2017 8:28 AM CDT Read [...] 89 06/28/[address] [facility] Diastolic (mm Hg) 51 06/28/[address] [facility] Temperature Oral (F) 98.1 F 06/28/[address] [facility] Respitory Rate 16 06/28/[address] [facility] Heart Rate 78 06/28/[address] [facility] Respitory Rate 18 06/28/[address] [facility] Temperature Oral (F) 97.9 F 06/28/[address] [facility] Weight 45.5 06/28/[address] [facility] Heart Rate 81 06/28/[address] [facility] Systolic (mm Hg) 131 06/28/[address] [facility] Diastolic (mm Hg) 81 06/28/2017 [facility] Encounters Location Location Encounter Encounter Reason Attending ADM DC Status Source Details Type Number For Provider Date Date Visit [facility] Emergency [id number] Semaj 06/28 06/28 [place] /2017 [facility] Procedures Procedure Code Date Perfomer Comments Source
--- OUTSIDE RECORDS SUMMARY | 2018-06-24 18:53 | XMS REPORT ---
:1970 [facility] [address] [place] [address] Care Team Providers Name Role Phone UNKNOWN, REFFERING Primary Care Provider Unavailable Problems This patient has no known problems. Allergies, Adverse Reactions, Alerts This patient has no known allergies or adverse reactions. Medications This patient has no known medications. Encounters Start End Encounter Admission Attending Care Care Encounter Date/Time Date/Time Type Type Clinicians Facility Department ID 2017-07-02 2017-07-02 Emergency E [facility] MED [id number] 08:16:00 08:16:00
[2018-06-24 20:29] LABS: Absolute Monocytes 0.9 K/uL (0.1-1.3); Absolute Neutrophil 11.7 K/uL (1.8-8.0); Basophils % 0.5 % (0-1.3); Eosinophils % 0.1 % (0-4.4); Hematocrit 30.9 % (36.0-45.0); Lymphocytes % 7.6 % (15.3-44.8); Monocytes % 6.7 % (3.3-12.3); RBC Red Blood Cell Count 3.82 M/uL (3.86-4.86)
[2018-06-24 20:45] LABS: ALT/SGPT 10 U/L (12-78); AST/SGOT 12 U/L (15-37); Albumin 2.7 g/dL (3.4-5.0); Alkaline Phosphatase 77 U/L (45-117); BUN Blood Urea Nitrogen 11 mg/dL (7-18); Bicarbonate 24 mmol/L (21-32); Bilirubin Direct < 0.1 mg/dL (0-0.2); Bilirubin Total 0.3 mg/dL (0.2-1.0); Glucose Level 98 mg/dL (74-106); Lipase 86 U/L (73-393); Protein, Total 6.2 g/dL (6.4-8.2); Sodium Level 138 mmol/L (136-145)
[2018-06-24 20:48] LABS: Urine Blood TRACE (NEG); Urine Glucose NEGATIVE (NEG); Urine Protein NEGATIVE (NEG); Urine Specific Gravity 1.015 (1.005-1.030); Urine pH 5.5 (5.0-7.0)
--- NOTE | 2018-06-24 21:41 | EDPHYS ---
Physician Documentation [facility] Name: Dayami Espinosa Age: 48 yrs Sex: Female : 1970 Arrival Date: 06/24/2018 Time: 18:52 Bed 27 Private MD: ED Physician Iasi Isabel HPI: 06/24 20:43 This 48 yrs old Female presents to ER via EMS with complaints of Abdominal tw4 Pain. 20:43 The patient presents with abdominal pain in the epigastric area. Onset: The tw4 symptoms/episode began/occurred today. The symptoms do not radiate. Associated signs and symptoms: none. The symptoms are described as dull. Modifying factors: The symptoms are alleviated by nothing, the symptoms are aggravated by nothing. Severity of pain: At its worst the pain was very mild in the emergency department the pain has resolved. The patient has not experienced similar symptoms in the past. 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 - Social history:: Smoking status: Patient uses tobacco products, smokes one pack cigarettes per day. - Ebola Screening: : Patient negative for fever greater than or equal to 101.5 degrees Fahrenheit, and additional compatible Ebola Virus Disease symptoms Patient denies exposure to infectious person Patient denies travel to an Ebola-affected area in the 21 days before illness onset. ROS: 20:43 Constitutional: Negative for fever, chills, and weight loss, Eyes: Negative for injury, tw4 pain, redness, and discharge, Cardiovascular: Negative for chest pain, palpitations, and edema, Respiratory: Negative for shortness of breath, cough, wheezing, and pleuritic chest pain, Back: Negative for injury and pain, MS/Extremity: Negative for injury and deformity, Skin: Negative for injury, rash, and discoloration, Neuro: Negative for headache, weakness, numbness, tingling, and seizure. 20:43 Abdomen/GI: Positive for abdominal pain, Negative for nausea and vomiting, nausea, vomiting, and diarrhea, nausea, abdominal cramps, abdominal distension, anorexia, dysphagia, hematemesis, black/tarry stool, rectal pain, rectal bleeding, bowel incontinence. Exam: 20:43 Constitutional: This is a well developed, well nourished patient who is awake, alert, tw4 and in no acute distress. Head/Face: Normocephalic, atraumatic. Chest/axilla: Normal chest wall appearance and motion. Nontender with no deformity. No lesions are appreciated. Cardiovascular: Regular rate and rhythm with a normal S1 and S2. No gallops, murmurs, or rubs. Normal PMI, no JVD. No pulse deficits. Respiratory: Lungs have equal breath sounds bilaterally, clear to auscultation and percussion. No rales, rhonchi or wheezes noted. No increased work of breathing, no retractions or nasal flaring. Abdomen/GI: Soft, non-tender, with normal bowel sounds. No distension or tympany. No guarding or rebound. No evidence of tenderness throughout. MS/ Extremity: Pulses equal, no cyanosis. Neurovascular intact. Full, normal range of motion. Neuro: Awake and alert, GCS 15, oriented to person, place, time, and situation. Cranial nerves II-XII grossly intact. Motor strength 5/5 in all extremities. Sensory grossly intact. Cerebellar exam normal. Normal gait. Vital Signs: 19:06 BP 113 / 81 LA; Pulse 108; Resp 16 S; Temp 99.9(O); Pulse Ox 100% on R/A; Weight 48.08 rv kg (R); Height 5 ft. 3 in. (160.02 cm) (R); Pain 10/10; 20:15 BP 114 / 75; Pulse 108; Resp 19; Pulse Ox 100% on R/A; ca1 20:53 BP 108 / 69; Pulse 109; Resp 19; Pulse Ox 98% on R/A; ca1 21:11 BP 106 / 63; Pulse 111; Resp 18; Pulse Ox 96% on R/A; ca1 21:36 BP 100 / 61; Pulse 109; Resp 19; Pulse Ox 96% on R/A; ca1 19:06 Body Mass Index 18.78 (48.08 kg, 160.02 cm) rv MDM: 19:29 Patient medically screened. tw4 20:43 Differential diagnosis: gastritis, Peptic Ulcer Disease, Perf. Duodenal Ulcer, Perf. tw4 Gastric Ulcer. Data reviewed: vital signs, nurses notes. Medical screen evaluation completed. EMTALA emergency medical condition absent. ED course: Pt comes to the ED with abdominal pain. Pt states that she is not having abdominal pain curently. 06/24 19:24 Order name: Urine Dipstick--Ancillary (enter results); Complete Time: 21:40 ms 06/24 21:40 Interpretation: UBLD TRACE; UESTR 1+. tw4 06/24 19:24 Order name: Urine --Ancillary (enter results); Complete Time: 21:40 ms 06/24 19:57 Order name: Basic Metabolic Panel; Complete Time: 21:39 ca1 06/24 19:57 Order name: CBC with Diff; Complete Time: 21:39 ca1 06/24 21:39 Interpretation: Normal except: WBC 13.8; RBC 3.82; HGB 10.1; HCT 30.9; MCH 26.3; RDW tw4 15.9; NEUT A 11.7; LYM% 7.6; HOSEA% 85.1. 06/24 19:57 Order name: Creatinine for Radiology; Complete Time: 21:40 ca1 06/24 19:57 Order name: Hepatic Function; Complete Time: 21:40 ca1 06/24 19:57 Order name: Lipase; Complete Time: 21:39 ca1 06/24 19:57 Order name: IV Saline Lock; Complete Time: 20:21 ca1 06/24 19:57 Order name: Labs collected and sent; Complete Time: 20:21 ca1 Administered Medications: No medications were administered Disposition: 06/24/18 21:41 Discharged to Home. Impression: Gastritis, unspecified. - Condition is Stable. - Discharge Instructions: Gastritis, Adult, [id number]. - Prescriptions for Carafate 1 gram Oral Tablet - take 1 tablet by ORAL route 4 times per day take on an empty stomach, beginning on waking and last dose at bedtime; 100 tablet. - Medication Reconciliation Form, Thank You Letter, Antibiotic Education, Prescription Opioid Use form. - Follow up: Private Physician; When: Upon discharge from the Emergency Department; Reason: If symptoms return, Recheck today's complaints, Continuance of care. - Problem is new. - Symptoms have improved. Signatures: Dispatcher [employer] Isai Mckeon MD MD tw4 Brant Sutton, RN RN rv Verito Case RN RN ca1 Corrections: (The following items were deleted from the chart) 21:54 21:41 06/24/2018 21:41 Discharged to Home. Impression: Gastritis, unspecified. rv Condition is Stable. Forms are Medication Reconciliation Form, Thank You Letter, Antibiotic Education, Prescription Opioid Use. Follow up: Private Physician; When: Upon discharge from the Emergency Department; Reason: If symptoms return, Recheck today's complaints, Continuance of care. Problem is new. Symptoms have improved. tw4
--- NOTE | 2018-06-24 21:41 | ER ---
Nurse's Notes [facility] Name: Dayami Espinosa Age: 48 yrs Sex: Female : 1970 Arrival Date: 06/24/2018 Time: 18:52 Bed 27 Private MD: Diagnosis: Gastritis, unspecified Presentation: 06/24 18:52 Presenting complaint: EMS states: PATIENT COMPLAINED OF ABDOMINAL PAIN. NO NAUSEA AND rv VOMITING. Transition of care: patient was not received from another setting of care. Onset of symptoms was June 24, 2018 at 18:00. Risk Assessment: Do you want to hurt yourself or someone else? Patient reports no desire to harm self or others. Initial Sepsis Screen: Does the patient meet any 2 criteria? No. Patient's initial sepsis screen is negative. Does the patient have a suspected source of infection? No. Patient's initial sepsis screen is negative. Care prior to arrival: None. 18:52 Method Of Arrival: EMS: [facility] rv 18:52 Acuity: JAZMIN 3 rv Triage Assessment: 19:04 General: Appears in no apparent distress. comfortable, Behavior is calm, cooperative. rv Pain: Complains of pain in abdomen Pain does not radiate. Pain currently is 10 out of 10 on a pain scale. Noted to be TALKATIVE AND DOES NOT SHOW ANY SIGN OF PAIN. EENT: No deficits noted. Neuro: Level of Consciousness is awake, alert, obeys commands, Oriented to person, place, time, situation. Cardiovascular: Capillary refill < 3 seconds. Respiratory: Airway is patent. GI: Abdomen is flat, Reports lower abdominal pain. : No signs and/or symptoms were reported regarding the genitourinary system. Derm: Skin is intact, is thin, with poor turgor. Musculoskeletal: No signs and/or symptoms reported regarding the musculoskeletal system. 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 - Social history:: Smoking status: Patient uses tobacco products, smokes one pack cigarettes per day. - Ebola Screening: : Patient negative for fever greater than or equal to 101.5 degrees Fahrenheit, and additional compatible Ebola Virus Disease symptoms Patient denies exposure to infectious person Patient denies travel to an Ebola-affected area in the 21 days before illness onset. Screenin:06 Abuse screen: Denies threats or abuse. Denies injuries from another. Nutritional rv screening: No deficits noted. Tuberculosis screening: No symptoms or risk factors identified. Fall Risk None identified. Assessment: 19:15 General: Appears in no apparent distress. comfortable, Behavior is calm, cooperative, ca1 appropriate for age, Reports chills for 2-3 days. Pain: Complains of pain in lower abdomen Pain does not radiate. Pain currently is 10 out of 10 on a pain scale. Quality of pain is described as stabbing, Pain began since 0800 today Is intermittent, Also complains of nausea, no BM for 3 days. Neuro: Level of Consciousness is awake, alert, obeys commands, Oriented to person, place, time, situation. Cardiovascular: Heart tones S1 S2 present Capillary refill < 3 seconds Patient's skin is warm and dry. Respiratory: Reports cough that is productive, since a few days ago Airway is patent Respiratory effort is even, unlabored, Respiratory pattern is regular, symmetrical, Breath sounds are clear bilaterally. GI: Abdomen is flat, non-distended, Bowel sounds present X 4 quads. Abd is soft X 4 quads Abdomen is tender to palpation in suprapubic area, right lower quadrant and left lower quadrant. GI: Reports constipation, nausea, vomiting. : No deficits noted. No signs and/or symptoms were reported regarding the genitourinary system. EENT: No deficits noted. No signs and/or symptoms were reported regarding the EENT system. Derm: Skin is intact, is healthy with good turgor, Skin is pink, warm \T\ dry. Musculoskeletal: Circulation, motion, and sensation intact. Capillary refill < 3 seconds. 20:26 Reassessment: Patient appears in no apparent distress at this time. Patient and/or ca1 family updated on plan of care and expected duration. Pain level reassessed. Patient is alert, oriented x 3, equal unlabored respirations, skin warm/dry/pink. 21:36 Reassessment: Patient appears in no apparent distress at this time. Patient and/or ca1 family updated on plan of care and expected duration. Pain level reassessed. Patient is alert, oriented x 3, equal unlabored respirations, skin warm/dry/pink. Vital Signs: 19:06 BP 113 / 81 LA; Pulse 108; Resp 16 S; Temp 99.9(O); Pulse Ox 100% on R/A; Weight 48.08 rv kg (R); Height 5 ft. 3 in. (160.02 cm) (R); Pain 10/10; 20:15 BP 114 / 75; Pulse 108; Resp 19; Pulse Ox 100% on R/A; ca1 20:53 BP 108 / 69; Pulse 109; Resp 19; Pulse Ox 98% on R/A; ca1 21:11 BP 106 / 63; Pulse 111; Resp 18; Pulse Ox 96% on R/A; ca1 21:36 BP 100 / 61; Pulse 109; Resp 19; Pulse Ox 96% on R/A; ca1 19:06 Body Mass Index 18.78 (48.08 kg, 160.02 cm) rv ED Course: 18:52 Patient arrived in ED. rv 18:53 Triage completed. rv 19:07 Patient has correct armband on for positive identification. Bed in low position. Call rv light in reach. Side rails up X 1. Pulse ox on. NIBP on. 19:29 Isai Isabel MD is Attending Physician. tw4 19:56 Verito Case, BENI is Primary Nurse. ca1 20:00 Arm band placed on Patient placed in an exam room, on a stretcher, on pulse oximetry, rv Patient notified of wait time. 20:05 No provider procedures requiring assistance completed. Inserted saline lock: 20 gauge ca1 in right antecubital area, using aseptic technique. Blood collected. 21:54 IV discontinued, bleeding controlled, No redness/swelling at site. Pressure dressing rv applied. Administered Medications: No medications were administered Outcome: 21:41 Discharge ordered by . tw4 21:54 Discharged to home ambulatory. rv 21:54 Condition: good 21:54 Discharge instructions given to patient, Instructed on discharge instructions, follow up and referral plans. Demonstrated understanding of instructions, follow-up care. 21:54 Patient left the ED. rv Signatures: Isai Isabel MD MD tw4 Brant Sutton RN RN rv Acob, Verito, RN RN ca1
== END 2018-06-24 21:54 | disposition home or self-care (01) ==
LOC: ER 18:50
DX: K29.70 Gastritis, unspecified, without bleeding (principal); F31.9 Bipolar disorder, unspecified; F17.210 Nicotine dependence, cigarettes, uncomplicated
CPT/HCPCS: 36415; 80048; 80076; 81003; 81025; 83690; 85025; 99284

== ENCOUNTER 2018-07-28 01:09 | Emergency (ER) | payer SELFPAY ==
--- OUTSIDE RECORDS SUMMARY | 2018-07-28 01:11 | XMS REPORT | Clinical Summary ---
:1970 [facility] Address [address] [place] [address] Care Team Providers Name Role Phone Asked, No Pcp Primary Care Provider Unavailable Allergies No Known Allergies Medications Not on file Active Problems Not on file Social History Tobacco Use Types Packs/Day Years Used Date Current Every Day Smoker Cigarettes 0.5 Smokeless Tobacco: Never Used Alcohol Use Drinks/Week oz/Week Comments No Sex Assigned at Date Recorded Not on file Job Start Date Occupation Industry Not on file Not on file Not on file Travel History Travel Start Travel End No recent travel history available. Last Filed Vital Signs Not on file Plan of Treatment Health Maintenance Due Date Last Done Comments CERVICAL CANCER SCREENING 1990 INFLUENZA VACCINE 11/02/2018 Results Not on fileafter 07/27/2017 Advance Directives Patient has advance care planning documents on file. For more information, please contact:Sergio Lopezist[address] [place] [address]
--- OUTSIDE RECORDS SUMMARY | 2018-07-28 01:11 | XMS REPORT | Continuity of Care Document ---
:1970 Author Organization Interface Problems Problem Status Onset Classification Date Comments Source Date Reported HPI Active 04/13/[address] FACIAL FX Active 02/01/[address] DIZZINESS Active 02/01/[address] Left lower 07/07/19 10/04/2017 [facility] quadrant pain 18 [facility] Lower abdominal 06/29/19 10/04/2017 [facility] pain City FLANK PAIN Active 06/29/19 [place] [id number] City Nicotine 10/04/2017 [facility] dependence, City unspecified, uncomplicated NONTRAUMATIC Active [facility] CHRONIC SUBDURAL Medical [facility] Center Medications Medication Details Route Status Patient Ordering Order Source Instructions Provider Date tramadol 50 mg=1 No Longer hydrochloride 50 tab, PO, Active [facility] Oral Tablet Q6H, PRN [facility] Pain, X 3 day, # 12 tab, 0 Refill(s) Ondansetron 4 MG 4 mg=1 Active Disintegrating tab, PO, 0[facility] Tablet [Zofran] BID, PRN [facility] Nausea and Vomiting, Dissolve tab under tongue, # 10 tab, 0 Refill(s) Saline Flush 0.9% 10 mL, Inactive Route: [address] [place] [address] IVP, Drug City Form: INJ, Dosing Weight [...] CT BRAIN WITHOUT CONTRAST 04/13 - [facility] contrast CT contrast CT /2019 [facility] DATE: 04/13/2018 Read by: Lacey [...] day. Brain/Neck Brain/Neck EXAM: CTA BRAIN 01/31 [facility] CTA CTA /2018 - Medical EXAM: [...] CT HEAD WITH AND WITHOUT CONTRAST 01/31 [facility] contrast CT contrast CT /2018 - Medical This report was dictated by a Nutrition Services Associate/Fellow. I have personally reviewed the images as [...] 1view EXAM: XR CHEST 1 VIEW 01/31 [facility] DX DX /2018 - Medical This report was dictated by a Nutrition Services Associate/Fellow. I have personally reviewed the images as [...] Lvl 172 unit/L 73 - 393 06/[address] [facility] CHEM PANEL Globulin 3.5 g/dL 2.7 - 4.2 06/[address] [facility] CHEM PANEL A/G Ratio 1.1 0.7 - 1.6 06/[address] [facility] CHEM PANEL B/C Ratio 13 6 - 25 06/[address] [facility] CHEM PANEL AGAP 13.6 meq/L 10.0 - 06/[address] [facility] CHEM PANEL Total 7.2 g/dL 6.4 - 8.4 06/[address] [facility] CHEM PANEL Alk Phos 56 unit/L 39 - 136 06/[address] [facility] CHEM PANEL Bili Total 0.2 mg/dL 0.2 - 1.3 06/[address] [facility] CHEM PANEL Potassium 3.6 meq/L 3.5 - 5.1 06/[address] [facility] CHEM PANEL Sodium Lvl 139 meq/L 135 - 145 06/[address] [facility] CHEM PANEL Calcium Lvl 8.9 mg/dL 8.5 - 10.5 06/[address] [facility] CHEM PANEL Chloride Lvl 105 meq/L 95 - 109 06/[address] [facility] CHEM PANEL eGFR 107 06/28 [...] is not recommended in the following populations: [address] Individuals with unstable creatinine concentrations, including [...] ALT 24 unit/L 0 - 65 06/[address] [facility] CHEM PANEL AST 20 unit/L 0 - 37 06/[address] [facility] CHEM PANEL CO2 24 meq/L 24 - 32 06/[address] [facility] CHEM PANEL Albumin Lvl 3.7 g/dL 3.5 - 5.0 06/[address] [facility] CHEM PANEL Creatinine 0.63 mg/dL 0.50 - 06/28 MH Lvl 1.[address] [facility] CHEM PANEL BUN 8 mg/dL 7 - 22 06/[address] [facility] CHEM PANEL Glucose Lvl 107 mg/dL 70 - 99 06/[address] [facility] ENDOCRINOLO S Preg Negative Negative 06/28 [facility]* [facility] (06/28/17 6:15 AM) HEMATOLOGY RDW 15.4 % 11.5 - 06/28 MH 14.[address] [facility] HEMATOLOGY MPV 7.7 fL 7.4 - 10.4 06/[address] [facility] HEMATOLOGY Platelet 355 K/CMM 133 - 450 06/[address] [facility] HEMATOLOGY MCV 87.1 fL 80.0 - 06/[address] [facility] HEMATOLOGY Hct 37.9 % 36.0 - 06/28 MH [address] [facility] HEMATOLOGY MCHC 33.3 g/dL 32.0 - 06/28 MH 36.[address] [facility] HEMATOLOGY MCH 29.0 pg 27.0 - 06/28 MH 31.[address] [facility] HEMATOLOGY Hgb 12.6 g/dL 12.0 - 06/28 MH 16.[address] [facility] HEMATOLOGY RBC 4.35 M/CMM 4.20 - 06/28 MH 5.[address] [facility] HEMATOLOGY WBC 10.7 K/CMM 3.7 - 10.4 06/[address] [facility] HEMATOLOGY Monocytes # 0.8 K/CMM 0.0 - 0.8 06/[address] [facility] HEMATOLOGY Eosinophils 0.2 K/CMM 0.0 - 0.5 06/28 MH # /[address] [facility] HEMATOLOGY Segs 72.1 % 45.0 - 06/28 MH 75.[address] [facility] HEMATOLOGY Segs-Bands # 7.7 K/CMM 1.5 - 8.1 06/[address] [facility] HEMATOLOGY Lymphocytes 2.0 K/CMM 1.0 - 5.5 06/28 # /[address] [facility] HEMATOLOGY Basophils 0.4 % 0.0 - 1.0 06/[address] [facility] HEMATOLOGY Monocytes 7.2 % 2.0 - 12.0 06/[address] [facility] HEMATOLOGY Eosinophils 1.7 % 0.0 - 4.0 06/[address] [facility] HEMATOLOGY Lymphocytes 18.6 % 20.0 - 06/28 MH [address] [facility] URINE AND UA Color Colorless Yellow 06/28 [facility] *NA* [facility] (06/28/17 6:15 AM) URINE AND UA Spec Grav 1.002 <=1.030 06/[address] [facility] URINE AND UA Turbidity Clear Clear 06/28 [facility] (06/28/17 6:15 AM) [facility] URINE AND UA pH 6.0 5.0 - 8.0 06/[address] [facility] URINE AND UA Glucose Negative Negative 06/28 [facility] mg/dL mg/dL [facility] URINE AND UA Protein Negative Negative 06/28 [facility] mg/dL mg/dL [facility] URINE AND UA Blood Moderate Negative 06/28 [facility] *ABN* [facility] (06/28/17 6:15 AM) URINE AND UA Bili Negative Negative 06/28 [facility] *NA* [facility] (06/28/17 6:15 AM) URINE AND UA Nitrite Negative Negative 06/28 [facility] (06/28/17 6:15 AM) [facility] URINE AND UA Hyal Cast 1 /LPF 0 - 2 06/[address] [facility] URINE AND UA Mucus Few /LPF None Seen 06/28 [facility] /LPF [facility] URINE AND UA <=1.0 0.1 - 1.0 06/28 [facility] Urobilinogen mg/dL [facility] URINE AND UA Ketones Negative 06/[address] [facility] URINE AND UA Bacteria Occasional None Seen 06/28 [facility]OOL /HPF /HPF /[address] [facility] URINE AND UA Sq Epi Occasional Few /LPF 06/28 STOOL /LPF /[address] [facility] URINE AND UA Leuk Est Negative Negative 06/28 [facility]OOL /2017 [facility] RBC 2 /HPF 0 - 2 06/[address] [facility] URINE AND UA WBC 1 /HPF 0 - 5 06/[address] [facility] Pelvis Pelvis EXAM: US PELVIS TRANSABDOMINAL 06/28 - Complete US Complete US /2017 - [facility] DATE: 06/28/2017 8:28 AM CDT [...] Comments Source Systolic (mm Hg) 89 06/28/2017 [facility] Diastolic (mm Hg) 51 06/28/2017 [facility] Temperature Oral (F) 98.1 F 06/28/2017 [facility] Respitory Rate 16 06/28/2017 [facility] Heart Rate 78 06/28/2017 [facility] Respitory Rate 18 06/28/2017 [facility] Temperature Oral (F) 97.9 F 06/28/2017 [facility] Weight 45.5 06/28/2017 [facility] Heart Rate 81 06/28/2017 [facility] Systolic (mm Hg) 131 06/28/2017 [facility] Diastolic (mm Hg) 81 06/28/2017 [facility] Encounters Location Location Encounter Encounter Reason Attending ADM DC Status Source Details Type Number For Provider Date Date Visit [facility] Emergency [id number] Semaj 06/28 06/28 COLLETTE [place] /2017 [facility] Procedures Procedure Code Date Perfomer Comments Source
--- OUTSIDE RECORDS SUMMARY | 2018-07-28 01:11 | XMS REPORT | Clinical Summary ---
:1970 Author Organization [facility] Address [address] [place] [address] Care Team Providers Name Role Phone Sharpless Primary Care Provider Allergies No Known Allergies Medications Not on [...] Signs Not on file Plan of Treatment Not on file Results Not on fileafter 07/27/2017
--- OUTSIDE RECORDS SUMMARY | 2018-07-28 01:12 | XMS REPORT ---
:1970 [facility] Address [address] [place] [address] Care Team Providers Name Role Phone UNKNOWN, REFFERING Primary Care Provider Unavailable Problems This patient has no known problems. Allergies, Adverse Reactions, Alerts This patient has no known allergies or adverse reactions. Medications This patient has no known medications. Encounters Start End Encounter Admission Attending Care Care Encounter Date/Time Date/Time Type Type Clinicians Facility Department ID 2017-07-02 2017-07-02 Emergency [facility] [id number] 08:16:00 08:16:00
[2018-07-28 01:50] LABS: Absolute Lymphocytes (CBC) 2.3 K/uL (0.7-4.9); Absolute Monocytes 0.6 K/uL (0.1-1.3); Absolute Neutrophil 4.3 K/uL (1.8-8.0); Basophils % 0.6 % (0-1.3); Eosinophils % 2.8 % (0-4.4); Hematocrit 33.7 % (36.0-45.0); Lymphocytes % 31.1 % (15.3-44.8); MPV 8.4 fL (7.6-11.3); Monocytes % 8.7 % (3.3-12.3); RBC Red Blood Cell Count 4.24 M/uL (3.86-4.86)
[2018-07-28] MEDS ORDERED: MECLIZINE HCL 12.5 MG TAB ONE (01:54)
[2018-07-28] MEDS ORDERED: NA CHLORIDE 0.9% 1,000 ML ONE (01:54)
[2018-07-28 02:05] LABS: Albumin 3.5 g/dL (3.4-5.0); Bilirubin Total 0.3 mg/dL (0.2-1.0); Potassium 3.7 mmol/L (3.5-5.1); Protein, Total 7.1 g/dL (6.4-8.2)
--- NOTE | 2018-07-28 02:16 | ER ---
Nurse's Notes [facility] Name: Dayami Espinosa Age: 48 yrs Sex: Female : 1970 Arrival Date: 07/28/2018 Time: 01:19 Bed 20 Private MD: Diagnosis: Dizziness and giddiness;Weakness Presentation: 07/28 01:05 Presenting complaint: EMS states: Dizziness and lightheaded since 3 days. Transition of cc3 care: patient was not received from another setting of care. Onset of symptoms was July 24, 2018. Risk Assessment: Do you want to hurt yourself or someone else? Patient reports no desire to harm self or others. Initial Sepsis Screen: Does the patient meet any 2 criteria? No. Patient's initial sepsis screen is negative. Does the patient have a suspected source of infection? No. Patient's initial sepsis screen is negative. Care prior to arrival: None. 01:05 Method Of Arrival: EMS: [facility] cc3 01:05 Acuity: JAZMIN 4 cc3 Triage Assessment: 01:05 General: Appears in no apparent distress. comfortable, Behavior is calm, cooperative. cc3 Pain: Complains of pain in head. EENT: No signs and/or symptoms were reported regarding the EENT system. Neuro: Level of Consciousness is awake, alert, obeys commands, Oriented to person, place, time, situation, Appropriate for age. Cardiovascular: Patient's skin is warm and dry. Respiratory: Airway is patent Respiratory effort is even, unlabored, Respiratory pattern is regular, symmetrical. GI: Abdomen is flat. : No signs and/or symptoms were reported regarding the genitourinary system. Derm: No signs and/or symptoms reported regarding the dermatologic system. Musculoskeletal: Circulation, motion, and sensation intact. Range of motion: intact in all extremities. BEEF BREAKER: 01:05 LMP 07/07/2018 cc3 Historical: - Allergies: 01:05 NKA; cc3 - Home Meds: 01:05 Depakote 250 mg Oral TbEC 1 tab in the morning for Bipolar Disorder in Remission cc3 [Active]; Depakote 500 mg Oral TbEC nightly [Active]; - PMHx: 01:05 Anemia; Bipolar disorder; gastritis; cc3 01:05 Ovarian cyst; cc3 - PSHx: 01:05 brain surgery in 1973; cc3 - Immunization history:: Adult Immunizations not up to date. - Social history:: Smoking status: Patient uses tobacco products, smokes one-half pack cigarettes per day. - Ebola Screening: : No symptoms or risks identified at this time. - Family history:: not pertinent. Screenin:05 Abuse screen: Denies threats or abuse. Denies injuries from another. Nutritional cc3 screening: No deficits noted. Tuberculosis screening: No symptoms or risk factors identified. Fall Risk Ambulatory Aid- None/Bed Rest/Nurse Assist (0 pts). Gait- Normal/Bed Rest/Wheelchair (0 pts) Mental Status- Oriented to own ability (0 pts). Assessment: 01:05 General: see triage assessment. cc3 02:25 Reassessment: Patient appears in no apparent distress at this time. Patient and/or cc3 family updated on plan of care and expected duration. Pain level reassessed. Patient is alert, oriented x 3, equal unlabored respirations, skin warm/dry/pink. 03:43 Reassessment: Patient appears in no apparent distress at this time. Patient and/or cc3 family updated on plan of care and expected duration. Pain level reassessed. Patient is alert, oriented x 3, equal unlabored respirations, skin warm/dry/pink. 04:15 Reassessment: Patient appears in no apparent distress at this time. Patient and/or cc3 family updated on plan of care and expected duration. Pain level reassessed. Patient is alert, oriented x 3, equal unlabored respirations, skin warm/dry/pink. Dr. Mc discharged the patient home with prescription given. IV cannula removed and patient left ER vitally stable by wheelchair escorted by me to the lobby. Patient denies pain at this time. Patient states feeling better. Patient states symptoms have improved. Vital Signs: 01:05 BP 114 / 66; Pulse 70; Resp 19 S; Temp 98.2(O); Pulse Ox 100% on R/A; Weight 46.72 kg cc3 (R); Height 5 ft. 3 in. (160.02 cm) (R); 02:00 BP 103 / 76 Supine; Pulse 56; Resp 18 S; Pulse Ox 100% on R/A; cc3 02:06 BP 105 / 68 Sitting; Pulse 74; Resp 18 S; Pulse Ox 100% on R/A; cc3 02:08 BP 111 / 79 Standing; Pulse 76; Resp 18 S; Pulse Ox 100% on R/A; cc3 03:04 BP 104 / 61; Pulse 70; Resp 17 S; Pulse Ox 99% on R/A; cc3 03:41 BP 130 / 66; Pulse 64; Resp 15 S; Pulse Ox 99% on R/A; cc3 04:07 BP 107 / 70; Pulse 73; Resp 18 S; Pulse Ox 100% on R/A; cc3 01:05 Body Mass Index 18.25 (46.72 kg, 160.02 cm) cc3 ED Course: 01:05 Arm band placed on right wrist. Patient notified of wait time. cc3 01:05 Patient has correct armband on for positive identification. Bed in low position. Call cc3 light in reach. Side rails up X 1. Pulse ox on. NIBP on. 01:19 Patient arrived in ED. sybil 01:19 Darrell Mc MD is Attending Physician. [facility] 01:21 Mita Hassan is Primary Nurse. cc3 01:24 Triage completed. cc3 01:39 Inserted saline lock: 18 gauge in right antecubital area, using aseptic technique. rv Blood collected. 04:15 No provider procedures requiring assistance completed. IV discontinued, intact, cc3 bleeding controlled, No redness/swelling at site. Pressure dressing applied. Administered Medications: 01:45 Drug: NS 0.9% 1000 ml Route: IV; Rate: 1 bolus; Site: right antecubital; cc3 03:00 Follow up: Response: No adverse reaction; IV Status: Completed infusion; IV Intake: cc3 1000ml 01:45 Drug: Meclizine 25 mg Route: PO; cc3 02:00 Follow up: Response: No adverse reaction cc3 Intake: 03:00 IV: 1000ml; Total: 1000ml. cc3 Outcome: 02:15 Discharge ordered by . sybil 04:15 Discharged to home via wheelchair. cc3 04:15 Condition: stable 04:15 Discharge instructions given to patient, Instructed on discharge instructions, follow up and referral plans. medication usage, Demonstrated understanding of instructions, follow-up care, medications, Prescriptions given X 1. 04:18 Patient left the ED. cc3 Signatures: Darrell Mc MD MD cha Vicente, Ronaldo, RN RN rv Mita Hassan cc3
--- NOTE | 2018-07-28 02:16 | EDPHYS ---
Physician Documentation [facility] Name: Dayami Espinosa Age: 48 yrs Sex: Female : 1970 Arrival Date: 07/28/2018 Time: 01:19 Bed 20 Private MD: ED Physician Darrell Mc HPI: 07/28 01:27 This 48 yrs old Female presents to ER via EMS with complaints of dizziness. sybil 01:27 weak and dizzy. The patient presents with dizziness, generalized weakness. Onset: The sybil symptoms/episode began/occurred 2 day(s) ago. Context: occurred at home. Modifying factors: The symptoms are alleviated by lying down, the symptoms are aggravated by standing up. Associated signs and symptoms: The patient has no apparent associated signs or symptoms. Severity of symptoms: At their worst the symptoms were mild moderate in the emergency department the symptoms have improved mildly. Patient's baseline: Neuro: alert and fully oriented. MUSEUM EDUCATOR: 01:05 LMP 07/07/2018 cc3 Historical: - Allergies: 01:05 NKA; cc3 - Home Meds: 01:05 Depakote 250 mg Oral TbEC 1 tab in the morning for Bipolar Disorder in Remission cc3 [Active]; Depakote 500 mg Oral TbEC nightly [Active]; - PMHx: 01:05 Anemia; Bipolar disorder; gastritis; cc3 01:05 Ovarian cyst; cc3 - PSHx: 01:05 brain surgery in 1973; cc3 - Immunization history:: Adult Immunizations not up to date. - Social history:: Smoking status: Patient uses tobacco products, smokes one-half pack cigarettes per day. - Ebola Screening: : No symptoms or risks identified at this time. - Family history:: not pertinent. ROS: 01:27 Constitutional: Negative for fever, chills, and weight loss, Eyes: Negative for injury, sybil pain, redness, and discharge, ENT: Negative for injury, pain, and discharge, Neck: Negative for injury, pain, and swelling, Cardiovascular: Negative for chest pain, palpitations, and edema, Respiratory: Negative for shortness of breath, cough, wheezing, and pleuritic chest pain, Abdomen/GI: Negative for abdominal pain, nausea, vomiting, diarrhea, and constipation, Back: Negative for injury and pain, : Negative for injury, bleeding, discharge, and swelling, MS/Extremity: Negative for injury and deformity, Skin: Negative for injury, rash, and discoloration, Psych: Negative for depression, anxiety, suicide ideation, homicidal ideation, and hallucinations, Allergy/Immunology: Negative for hives, rash, and allergies, Endocrine: Negative for neck swelling, polydipsia, polyuria, polyphagia, and marked weight changes, Hematologic/Lymphatic: Negative for swollen nodes, abnormal bleeding, and unusual bruising. Neuro: Positive for dizziness, weakness. Exam: Constitutional: This is a well developed, well nourished patient who is awake, alert, sybil and in no acute distress. Head/Face: Normocephalic, atraumatic. Eyes: Pupils equal round and reactive to light, extra-ocular motions intact. Lids and lashes normal. Conjunctiva and sclera are non-icteric and not injected. Cornea within normal limits. Periorbital areas with no swelling, redness, or edema. ENT: Nares patent. No nasal discharge, no septal abnormalities noted. Tympanic membranes are normal and external auditory canals are clear. Oropharynx with no redness, swelling, or masses, exudates, or evidence of obstruction, uvula midline. Mucous membranes moist. Neck: Trachea midline, no thyromegaly or masses palpated, and no cervical lymphadenopathy. Supple, full range of motion without nuchal rigidity, or vertebral point tenderness. No Meningismus. Chest/axilla: Normal chest wall appearance and motion. Nontender with no deformity. No lesions are appreciated. Cardiovascular: Regular rate and rhythm with a normal S1 and S2. No gallops, murmurs, or rubs. Normal PMI, no JVD. No pulse deficits. Respiratory: Lungs have equal breath sounds bilaterally, clear to auscultation and percussion. No rales, rhonchi or wheezes noted. No increased work of breathing, no retractions or nasal flaring. Abdomen/GI: Soft, non-tender, with normal bowel sounds. No distension or tympany. No guarding or rebound. No evidence of tenderness throughout. Back: No spinal tenderness. No costovertebral tenderness. Full range of motion. Skin: Warm, dry with normal turgor. Normal color with no rashes, no lesions, and no evidence of cellulitis. MS/ Extremity: Pulses equal, no cyanosis. Neurovascular intact. Full, normal range of motion. Neuro: Awake and alert, GCS 15, oriented to person, place, time, and situation. Cranial nerves II-XII grossly intact. Motor strength 5/5 in all extremities. Sensory grossly intact. Cerebellar exam normal. Normal gait. Psych: Awake, alert, with orientation to person, place and time. Behavior, mood, and affect are within normal limits. Vital Signs: 01:05 BP 114 / 66; Pulse 70; Resp 19 S; Temp 98.2(O); Pulse Ox 100% on R/A; Weight 46.72 kg cc3 (R); Height 5 ft. 3 in. (160.02 cm) (R); 02:00 BP 103 / 76 Supine; Pulse 56; Resp 18 S; Pulse Ox 100% on R/A; cc3 02:06 BP 105 / 68 Sitting; Pulse 74; Resp 18 S; Pulse Ox 100% on R/A; cc3 02:08 BP 111 / 79 Standing; Pulse 76; Resp 18 S; Pulse Ox 100% on R/A; cc3 03:04 BP 104 / 61; Pulse 70; Resp 17 S; Pulse Ox 99% on R/A; cc3 03:41 BP 130 / 66; Pulse 64; Resp 15 S; Pulse Ox 99% on R/A; cc3 04:07 BP 107 / 70; Pulse 73; Resp 18 S; Pulse Ox 100% on R/A; cc3 01:05 Body Mass Index 18.25 (46.72 kg, 160.02 cm) 3 MDM: 01:19 Patient medically screened. [facility] 01:29 Data reviewed: vital signs, nurses notes, lab test result(s), EKG. [facility] 07/28 01:25 Order name: CBC with Diff; Complete Time: 02:15 [facility] 07/28 01:25 Order name: Comprehensive Metabolic Panel; Complete Time: 02:15 [facility] 07/28 01:25 Order name: UDS [facility] 07/28 01:29 Order name: Depakote; Complete Time: 02:15 [facility] 07/28 02:31 Order name: Urine Dipstick--Ancillary (enter results) [facility] 07/28 02:31 Order name: Urine --Ancillary (enter results) [facility] 07/28 01:25 Order name: Urine Test (obtain specimen); Complete Time: 02:32 [facility] 07/28 01:25 Order name: Urine Dipstick-Ancillary (obtain specimen); Complete Time: 02:32 [facility] 07/28 01:25 Order name: Orthostatics; Complete Time: 02:34 [facility] 07/28 01:26 Order name: EKG; Complete Time: : [facility] 07/28 01:26 Order name: EKG - Nurse/Tech; Complete Time: 02:32 [facility] Administered Medications: 01:45 Drug: NS 0.9% 1000 ml Route: IV; Rate: 1 bolus; Site: right antecubital; cc3 03:00 Follow up: Response: No adverse reaction; IV Status: Completed infusion; IV Intake: cc3 1000ml 01:45 Drug: Meclizine 25 mg Route: PO; cc3 02:00 Follow up: Response: No adverse reaction cc3 Disposition: 07/28/18 02:15 Discharged to Home. Impression: Dizziness and giddiness, Weakness. - Condition is Stable. - Discharge Instructions: Dizziness, Weakness, Weakness, [id number], Dizziness, Cyhd-[id number]. - Prescriptions for Meclizine 25 mg Oral Tablet - take 1 tablet by ORAL route every 8 hours As needed; 30 tablet. - Medication Reconciliation Form, Thank You Letter, Antibiotic Education, Prescription Opioid Use form. - Follow up: Private Physician; When: 2 - 3 days; Reason: Recheck today's complaints, Continuance of care, Re-evaluation by your physician. - Problem is new. - Symptoms have improved. Signatures: Dispatcher [employer] EDMA Darrell Mc MD MD cha Cordel, Charlene cc3 Corrections: (The following items were deleted from the chart) 04:18 02:15 07/28/2018 02:15 Discharged to Home. Impression: Dizziness and giddiness; cc3 Weakness. Condition is Stable. Discharge Instructions: Dizziness, Weakness, Weakness, Apzf-ik-Meiz, Dizziness, Mzon-mu-Cuap. Prescriptions for Meclizine 25 mg Oral Tablet - take 1 tablet by ORAL route every 8 hours As needed; 30 tablet. and Forms are Medication Reconciliation Form, Thank You Letter, Antibiotic Education, Prescription Opioid Use. Follow up: Private Physician; When: 2 - 3 days; Reason: Recheck today's complaints, Continuance of care, Re-evaluation by your physician. Problem is new. Symptoms have improved. sybil
[2018-07-28 02:33] LABS: Urine Blood 1+ (NEG); Urine Glucose NEGATIVE (NEG); Urine Protein NEGATIVE (NEG); Urine Specific Gravity 1.015 (1.005-1.030)
[2018-07-28 02:41] LABS: Barbiturates NEGATIVE (NEGATIVE); Benzodiazepines NEGATIVE (NEGATIVE); Cocaine NEGATIVE (NEGATIVE); METHAMPHETAM NEGATIVE (NEGATIVE); Methadone NEGATIVE (NEGATIVE); Opiates NEGATIVE (NEGATIVE); Phencyclidine NEGATIVE (NEGATIVE); THC Cannibis NEGATIVE (NEGATIVE)
--- NOTE | 2018-07-28 06:42 | EKG ---
Test Date: 2018-07-28 Test Time: 02:01:57 Territory Sales Consultant: RUDY MEASUREMENT RESULTS: Intervals: Rate: 61 CO: 144 QRSD: 78 QT: 430 QTc: 432 [place]: P: 69 CO: 144 QRS: 84 T: 73 INTERPRETIVE STATEMENTS: Sinus rhythm with marked sinus arrhythmia Otherwise normal ECG Compared to ECG 05/05/2018 05:00:38 No significant changes Electronically Signed On 07-28-18 06:42:04 CDT by Chaka Burnett
== END 2018-07-28 04:18 | disposition home or self-care (01) ==
LOC: ER 01:09
DX: R42 Dizziness and giddiness (principal); R53.1 Weakness; F31.70 Bipolar disorder, currently in remission, most recent episode unspecified
CPT/HCPCS: 36415; 80053; 80164; 80307; 81003; 81025; 85025; 93005; 96360; 99284; J7030

== ENCOUNTER 2018-07-30 00:31 | Emergency (ER) | payer SELFPAY ==
--- OUTSIDE RECORDS SUMMARY | 2018-07-30 00:34 | XMS REPORT | Clinical Summary ---
:1970 [facility] [address] [place] [address] Care Team Providers Name Role Phone Asked, [...] INFLUENZA VACCINE 11/02/2018 Results Not on fileafter 07/29/2017 Advance Directives Patient has advance care planning documents on file. For more information, please contact:Sergio Padron[address] [place] [address]
--- OUTSIDE RECORDS SUMMARY | 2018-07-30 00:34 | XMS REPORT | Continuity of Care Document ---
:1970 Author Organization Interface Problems Problem Status Onset Classification Date Comments Source Date Reported HPI Active 04/13/[address] FACIAL FX Active 02/01/[address] DIZZINESS Active 02/01/[address] Left lower 07/07/19 10/04/[address] [facility] quadrant pain 18 [facility] Lower abdominal 06/29/19 10/04/[address] [facility] pain City FLANK PAIN Active 06/29/19 [place] [address] City Nicotine 10/04/[address] [facility] dependence, City unspecified, uncomplicated NONTRAUMATIC Active [facility] CHRONIC SUBDURAL Medical HEMORRHAGE Center Medications Medication Details Route Status Patient Ordering Order Source Instructions Provider Date tramadol 50 mg=1 No Longer hydrochloride 50 tab, PO, Active 018 [facility] Oral Tablet Q6H, PRN [facility] Pain, X 3 day, # 12 tab, 0 Refill(s) Ondansetron 4 MG 4 mg=1 Active Disintegrating tab, PO, 018 [facility] Tablet [Zofran] BID, PRN [facility] Nausea and Vomiting, Dissolve tab under tongue, # 10 tab, 0 Refill(s) Saline Flush 0.9% 10 mL, Inactive Route: [address] [place] [address] IVP, Drug City Form: INJ, Dosing Weight [...] EXAM: CT BRAIN WITHOUT CONTRAST 04/13 - [facility] contrast CT contrast CT /2019 [facility] Center DATE: 04/13/2018 Read by: [...] day. Brain/Neck Brain/Neck EXAM: CTA BRAIN 01/31 [facility] CTA CTA /2018 - Medical EXAM: [...] CT HEAD WITH AND WITHOUT CONTRAST 01/31 [facility] contrast CT contrast CT /2018 - Medical This report was dictated by a Extermination Supervisor/Fellow. I have personally reviewed the images as [...] 1view EXAM: XR CHEST 1 VIEW 01/31 [facility] DX DX /2018 - Medical This report was dictated by a Extermination Supervisor/Fellow. I have personally reviewed the images as [...] Lvl 172 unit/L 73 - 393 06/28 [facility] CHEM PANEL Globulin 3.5 g/dL 2.7 - 4.2 06/28 [facility] CHEM PANEL A/G Ratio 1.1 0.7 - 1.6 06/28 [facility] CHEM PANEL B/C Ratio 13 6 - 25 06/28 [facility] CHEM PANEL AGAP 13.6 meq/L 10.0 - 06/28 20.0 [facility] CHEM PANEL Total 7.2 g/dL 6.4 - 8.4 06/28 [facility] CHEM PANEL Alk Phos 56 unit/L 39 - 136 06/28 [facility] CHEM PANEL Bili Total 0.2 mg/dL 0.2 - 1.3 06/28 [facility] CHEM PANEL Potassium 3.6 meq/L 3.5 - 5.1 06/28 Lvl [facility] CHEM PANEL Sodium Lvl 139 meq/L 135 - 145 06/28 [facility] CHEM PANEL Calcium Lvl 8.9 mg/dL 8.5 - 10.5 06/28 [facility] CHEM PANEL Chloride Lvl 105 meq/L 95 - 109 06/28 [facility] CHEM PANEL eGFR 107 06/28 [...] is not recommended in the following populations: [address] Individuals with unstable creatinine concentrations, including [...] ALT 24 unit/L 0 - 65 06/28 [facility] CHEM PANEL AST 20 unit/L 0 - 37 06/28 [facility] CHEM PANEL CO2 24 meq/L 24 - 32 06/28 [facility] CHEM PANEL Albumin Lvl 3.7 g/dL 3.5 - 5.0 06/28 [facility] CHEM PANEL Creatinine 0.63 mg/dL 0.50 - 06/28 MH Lvl 1.40 [facility] CHEM PANEL BUN 8 mg/dL 7 - 22 06/28 [facility] CHEM PANEL Glucose Lvl 107 mg/dL 70 - 99 06/28 [facility] ENDOCRINOLO S Preg Negative Negative 06/28 [facility]* [facility] (06/28/17 6:15 AM) HEMATOLOGY RDW 15.4 % 11.5 - 06/28 MH 14.5 [facility] HEMATOLOGY MPV 7.7 fL 7.4 - 10.4 06/28 [facility] HEMATOLOGY Platelet 355 K/CMM 133 - 450 06/28 [facility] HEMATOLOGY MCV 87.1 fL 80.0 - 06/28 98.0 [facility] HEMATOLOGY Hct 37.9 % 36.0 - 06/28 MH 48.0 [facility] HEMATOLOGY MCHC 33.3 g/dL 32.0 - 06/28 MH 36.0 [facility] HEMATOLOGY MCH 29.0 pg 27.0 - 06/28 MH 31.0 [facility] HEMATOLOGY Hgb 12.6 g/dL 12.0 - 06/28 MH 16.0 [facility] HEMATOLOGY RBC 4.35 M/CMM 4.20 - 06/28 MH 5.40 [facility] HEMATOLOGY WBC 10.7 K/CMM 3.7 - 10.4 06/28 [facility] HEMATOLOGY Monocytes # 0.8 K/CMM 0.0 - 0.8 06/28 [facility] HEMATOLOGY Eosinophils 0.2 K/CMM 0.0 - 0.5 06/28 MH # /2017 [facility] HEMATOLOGY Segs 72.1 % 45.0 - 06/28 MH 75.0 [facility] HEMATOLOGY Segs-Bands # 7.7 K/CMM 1.5 - 8.1 06/28 [facility] HEMATOLOGY Lymphocytes 2.0 K/CMM 1.0 - 5.5 06/28 # /2017 [facility] HEMATOLOGY Basophils 0.4 % 0.0 - 1.0 06/28 [facility] HEMATOLOGY Monocytes 7.2 % 2.0 - 12.0 06/28 [facility] HEMATOLOGY Eosinophils 1.7 % 0.0 - 4.0 06/28 [facility] HEMATOLOGY Lymphocytes 18.6 % 20.0 - 06/28 MH 40.0 [facility] URINE AND UA Color Colorless Yellow 06/28 [facility] *NA* [facility] (06/28/17 6:15 AM) URINE AND UA Spec Grav 1.002 <=1.030 06/28 [facility] URINE AND UA Turbidity Clear Clear 06/28 [facility] (06/28/17 6:15 AM) [facility] URINE AND UA pH 6.0 5.0 - 8.0 06/28 [facility] URINE AND UA Glucose Negative Negative 06/28 STOOL mg/dL mg/dL [facility] URINE AND UA Protein Negative Negative 06/28 [facility] mg/dL mg/dL [facility] URINE AND UA Blood Moderate Negative 06/28 [facility] *ABN* [facility] (06/28/17 6:15 AM) URINE AND UA Bili Negative Negative 06/28 [facility] *NA* [facility] (06/28/17 6:15 AM) URINE AND UA Nitrite Negative Negative 06/28 [facility] (06/28/17 6:15 AM) [facility] URINE AND UA Hyal Cast 1 /LPF 0 - 2 06/28 STOOL [facility] URINE AND UA Mucus Few /LPF None Seen 06/28 [facility] /LPF [facility] URINE AND UA <=1.0 0.1 - 1.0 06/28 [facility] Urobilinogen mg/dL [facility] URINE AND UA Ketones Negative 06/28 STOOL [facility] URINE AND UA Bacteria Occasional None Seen 06/28 STOOL /HPF /HPF /2017 [facility] URINE AND UA Sq Epi Occasional Few /LPF 06/28 STOOL /LPF /2017 [facility] URINE AND UA Leuk Est Negative Negative 06/28 STOOL /2017 [facility] RBC 2 /HPF 0 - 2 06/28 STOOL [facility] URINE AND UA WBC 1 /HPF 0 - 5 06/28 STOOL [facility] Pelvis Pelvis EXAM: US PELVIS TRANSABDOMINAL 06/28 - Complete US Complete US /2017 - [facility] DATE: 06/28/2017 8:28 AM CDT [...] For Provider Date Date Visit [facility] Emergency [id number] Semaj 06/28 06/28 COLLETTE Murrieta /2017 [facility] Procedures Procedure Code Date Perfomer Comments Source
--- OUTSIDE RECORDS SUMMARY | 2018-07-30 00:34 | XMS REPORT | Clinical Summary ---
:1970 Author Organization [facility] Address [address] [place] [address] Care Team Providers Name Role Phone Sharpless [...] Not on file Results Not on fileafter 07/29/2017
--- OUTSIDE RECORDS SUMMARY | 2018-07-30 00:35 | XMS REPORT ---
:1970 [facility] Address [address] [place] [address] Care Team Providers Name Role Phone UNKNOWN, REFFERING Primary Care Provider Unavailable Problems This patient has no known problems. Allergies, Adverse Reactions, Alerts This patient has no known allergies or adverse reactions. Medications This patient has no known medications. Encounters Start End Encounter Admission Attending Care Care Encounter Date/Time Date/Time Type Type Clinicians Facility Department ID 2017-07-02 2017-07-02 Emergency E [facility] MED [id number] 08:16:00 08:16:00
[2018-07-30] MEDS ORDERED: NA CHLORIDE 0.9% 1,000 ML ONE ×2 (01:25→02:45)
[2018-07-30 01:48] LABS: Absolute Lymphocytes (CBC) 2.5 K/uL (0.7-4.9); Absolute Monocytes 0.7 K/uL (0.1-1.3); Absolute Neutrophil 4.7 K/uL (1.8-8.0); Basophils % 0.2 % (0-1.3); Eosinophils % 1.9 % (0-4.4); Hematocrit 32.1 % (36.0-45.0); Lymphocytes % 30.7 % (15.3-44.8); MPV 8.8 fL (7.6-11.3); Monocytes % 8.3 % (3.3-12.3)
[2018-07-30 01:57] LABS: Potassium 4.2 mmol/L (3.5-5.1)
--- NOTE | 2018-07-30 02:33 | EDPHYS ---
Physician Documentation [facility] Name: Dayami Espinosa Age: 48 yrs Sex: Female : 1970 Arrival Date: 07/30/2018 Time: 00:32 Bed 6 Private MD: ED Physician Darrell Mc HPI: 07/30 01:00 This 48 yrs old Female presents to ER via EMS with complaints of Vaginal pm1 Bleeding. 01:00 The patient presents with vaginal bleeding that is light. Onset: The symptoms/episode pm1 began/occurred today. Modifying factors: The symptoms are alleviated by nothing, the symptoms are aggravated by nothing. Associated signs and symptoms: Pertinent positives: cramping, dizziness, Pertinent negatives: diarrhea, dysuria, nausea, urinary frequency, vomiting. The patient has been recently seen at the [facility] Emergency Department, yesterday, for similar complaints labs were performed. 01:00 Patient was seen here yesterday with complaints of dizziness. Today she is presenting pm1 with onset of menstrual cycle with dizziness. 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 - Social history:: Smoking status: Patient uses tobacco products, smokes one pack cigarettes per day. Patient uses alcohol, occasionally. Patient/guardian denies using street drugs. - Ebola Screening: : Patient negative for fever greater than or equal to 101.5 degrees Fahrenheit, and additional compatible Ebola Virus Disease symptoms Patient denies exposure to infectious person Patient denies travel to an Ebola-affected area in the 21 days before illness onset. ROS: 01:00 Positive for vaginal bleeding, Negative for urinary symptoms. pm1 01:00 Constitutional: Negative for fever, chills, and weight loss, Eyes: Negative for injury, pain, redness, and discharge, ENT: Negative for injury, pain, and discharge, Neck: Negative for injury, pain, and swelling, Cardiovascular: Negative for chest pain, palpitations, and edema, Respiratory: Negative for shortness of breath, cough, wheezing, and pleuritic chest pain, Abdomen/GI: Negative for abdominal pain, nausea, vomiting, diarrhea, and constipation, Back: Negative for injury and pain, MS/Extremity: Negative for injury and deformity, Skin: Negative for injury, rash, and discoloration, Neuro: Negative for headache, weakness, numbness, tingling, and seizure. Exam: 01:00 Constitutional: This is a well developed, well nourished patient who is awake, alert, pm1 and in no acute distress. Head/Face: Normocephalic, atraumatic. Eyes: Pupils equal round and reactive to light, extra-ocular motions intact. Lids and lashes normal. Conjunctiva and sclera are non-icteric and not injected. Cornea within normal limits. Periorbital areas with no swelling, redness, or edema. ENT: Nares patent. No nasal discharge, no septal abnormalities noted. Tympanic membranes are normal and external auditory canals are clear. Oropharynx with no redness, swelling, or masses, exudates, or evidence of obstruction, uvula midline. Mucous membranes moist. Neck: Trachea midline, no thyromegaly or masses palpated, and no cervical lymphadenopathy. Supple, full range of motion without nuchal rigidity, or vertebral point tenderness. No Meningismus. Chest/axilla: Normal chest wall appearance and motion. Nontender with no deformity. No lesions are appreciated. Cardiovascular: Regular rate and rhythm with a normal S1 and S2. No gallops, murmurs, or rubs. Normal PMI, no JVD. No pulse deficits. Respiratory: Lungs have equal breath sounds bilaterally, clear to auscultation and percussion. No rales, rhonchi or wheezes noted. No increased work of breathing, no retractions or nasal flaring. Abdomen/GI: Soft, non-tender, with normal bowel sounds. No distension or tympany. No guarding or rebound. No evidence of tenderness throughout. Back: No spinal tenderness. No costovertebral tenderness. Full range of motion. Skin: Warm, dry with normal turgor. Normal color with no rashes, no lesions, and no evidence of cellulitis. MS/ Extremity: Pulses equal, no cyanosis. Neurovascular intact. Full, normal range of motion. 01:00 Neuro: Orientation: is normal, Motor: is normal, moves all fours. Vital Signs: 00:33 BP 110 / 83 Supine; Pulse 64; Resp 18; Temp 97.9(O); Pulse Ox 100% on R/A; Weight 61.23 ak1 kg (R); Height 5 ft. 3 in. (160.02 cm) (R); Pain 10/10; 00:53 BP 105 / 70 Sitting; Pulse 62; Resp 16; Pulse Ox 98% on R/A; ak1 00:53 BP 96 / 68 Standing; Pulse 76; Resp 16; Pulse Ox 100% ; ak1 01:29 BP 102 / 68; Pulse 48; Resp 16; Pulse Ox 100% on R/A; ak1 02:02 BP 101 / 71 Supine; Pulse 50; Resp 14; Temp 98.1; Pulse Ox 100% on R/A; ak1 02:31 BP 113 / 73 Sitting; Pulse 46; ag4 02:31 BP 109 / 66 Standing; Pulse 74; ag4 03:42 BP 100 / 68; Pulse 56; Resp 14; Temp 98.1; Pulse Ox 100% on R/A; Pain 0/10; ak1 00:33 Body Mass Index 23.91 (61.23 kg, 160.02 cm) ak1 MDM: 00:48 Patient medically screened. pm1 02:17 Data reviewed: vital signs. Data interpreted: Pulse oximetry: on room air is 100 %. pm1 Interpretation: normal. 02:32 Counseling: I had a detailed discussion with the patient and/or guardian regarding: the pm1 historical points, exam findings, and any diagnostic results supporting the discharge/admit diagnosis, lab results, the need for outpatient follow up, to return to the emergency department if symptoms worsen or persist or if there are any questions or concerns that arise at home. 07/30 00:36 Order name: Finger stick results - FOR PT WITH NO ID ak1 07/30 01:06 Order name: CBC with Diff; Complete Time: 02:16 pm07/30 00:49 Order name: Orthostatic Blood Pressure; Complete Time: 00:56 pm1 07/30 01:06 Order name: BMP; Complete Time: 02:16 pm07/30 02:17 Order name: Orthostatics; Complete Time: 02:33 pm1 Administered Medications: 01:29 Drug: NS 0.9% 1000 ml Route: IV; Rate: 1000 ml; Site: right hand; ak1 04:16 Follow up: IV Status: Completed infusion; IV Intake: 1000ml ak1 02:36 Drug: NS 0.9% 1000 ml Route: IV; Rate: 1000 ml; Site: right hand; ak1 04:16 Follow up: IV Status: Completed infusion; IV Intake: 1000ml ak1 Disposition: 07/30/18 02:32 Discharged to Home. Impression: Dehydration. - Condition is Stable. - Discharge Instructions: Dehydration, Adult, Rehydration, Adult. - Medication Reconciliation Form, Thank You Letter, Antibiotic Education, Prescription Opioid Use form. - Follow up: Emergency Department; When: As needed; Reason: Worsening of condition. Follow up: Private Physician; When: 2 - 3 days; Reason: Recheck today's complaints, Continuance of care, Re-evaluation by your physician. - Problem is new. - Symptoms have improved. Addendum: 08/01/2018 11:03 Co-signature as Attending Physician, Darrell Mc MD I agree with the assessment and c asencio plan of care. Signatures: Dispatcher [employer] EDMN Darrell Mc MD MD cha Chretien, Felicia, RN RN Marcia Maciel RN RN ak1 Ming Fontenot, BUD SHREDDING FLOOR EQUIPMENT OPERATOR pm1 Corrections: (The following items were deleted from the chart) 07/30 04:25 02:32 07/30/2018 02:32 Discharged to Home. Impression: Dehydration. Condition is ak1 Stable. Forms are Medication Reconciliation Form, Thank You Letter, Antibiotic Education, Prescription Opioid Use. Follow up: Emergency Department; When: As needed; Reason: Worsening of condition. Follow up: Private Physician; When: 2 - 3 days; Reason: Recheck today's complaints, Continuance of care, Re-evaluation by your physician. Problem is new. Symptoms have improved. pm1
--- NOTE | 2018-07-30 02:33 | ER ---
Nurse's Notes [facility] Name: Dayami Espinosa Age: 48 yrs Sex: Female : 1970 Arrival Date: 07/30/2018 Time: 00:32 Bed 6 Private MD: Diagnosis: Dehydration Presentation: 07/30 00:33 Presenting complaint: Patient states: that she started her menstrual period but the fc bleeding is worse. Has lasted 24 hrs and it is making her neck hurt and making her dizzy. Transition of care: patient was not received from another setting of care. Onset of symptoms was July 30, 2018. Risk Assessment: Do you want to hurt yourself or someone else? Patient reports no desire to harm self or others. Initial Sepsis Screen: Does the patient meet any 2 criteria? No. Patient's initial sepsis screen is negative. Does the patient have a suspected source of infection? No. Patient's initial sepsis screen is negative. Care prior to arrival: None. 00:33 Method Of Arrival: EMS: [facility] 00:33 Acuity: JAZMIN 3 Triage Assessment: 00:49 General: Appears in no apparent distress. Behavior is cooperative. Pain: Denies pain. ak1 EENT: No signs and/or symptoms were reported regarding the EENT system. Neuro: Level of Consciousness is awake, alert, obeys commands, Oriented to person, place, time, situation, Tour Driver are equal bilaterally Moves all extremities. Speech is normal. Cardiovascular: No deficits noted. Respiratory: No deficits noted. GI: No signs and/or symptoms were reported involving the gastrointestinal system. : Reports vaginal bleeding that is bright red, pt stated she has vaginal bleeding since yesterday since starting her cycle for the month. pt c/o dizziness. pt seen in ER yesterday for same s/s. Derm: No signs and/or symptoms reported regarding the dermatologic system. Musculoskeletal: No signs and/or symptoms reported regarding the musculoskeletal system. 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 - Social history:: Smoking status: Patient uses tobacco products, smokes one pack cigarettes per day. Patient uses alcohol, occasionally. Patient/guardian denies using street drugs. - Ebola Screening: : Patient negative for fever greater than or equal to 101.5 degrees Fahrenheit, and additional compatible Ebola Virus Disease symptoms Patient denies exposure to infectious person Patient denies travel to an Ebola-affected area in the 21 days before illness onset. Screenin:36 Abuse screen: Denies threats or abuse. Nutritional screening: No deficits noted. Tuberculosis screening: No symptoms or risk factors identified. Fall Risk Fall in past 12 months (25 points). Secondary diagnosis (15 points) impaired mobility, No IV (0 pts). Ambulatory Aid- None/Bed Rest/Nurse Assist (0 pts). Gait- Weak (10 pts.). Mental Status- Overestimates/Forgets Limitations (15 pts.). Total Alfred Fall Scale indicates High Risk Score (45 or more points). Fall prevention measures have been instituted. Side Rails Up X 2 Placed Close to Nursing Station Frequent Obs/Assessments Occuring As available patient and family educated on Fall Prevention Program and Strategies. Assessment: 00:55 Reassessment: Patient appears in no apparent distress at this time. No changes from ak1 previously documented assessment. Patient is alert, oriented x 3, equal unlabored respirations, skin warm/dry/pink. pt asking for blankets and to just "sleep". 02:01 Reassessment: Patient appears in no apparent distress at this time. No changes from ak1 previously documented assessment. Patient states symptoms have improved. pt resting with eyes closed, resp even and unlabored. 03:41 Reassessment: Patient appears in no apparent distress at this time. No changes from ak1 previously documented assessment. pt with 300mL of NS to complete prior to discharge. 04:24 Reassessment: pt given crackers and sanitary pads as requested upon discharge. ak1 Vital Signs: 00:33 BP 110 / 83 Supine; Pulse 64; Resp 18; Temp 97.9(O); Pulse Ox 100% on R/A; Weight 61.23 ak1 kg (R); Height 5 ft. 3 in. (160.02 cm) (R); Pain 10/10; 00:53 BP 105 / 70 Sitting; Pulse 62; Resp 16; Pulse Ox 98% on R/A; ak1 00:53 BP 96 / 68 Standing; Pulse 76; Resp 16; Pulse Ox 100% ; ak1 01:29 BP 102 / 68; Pulse 48; Resp 16; Pulse Ox 100% on R/A; ak1 02:02 BP 101 / 71 Supine; Pulse 50; Resp 14; Temp 98.1; Pulse Ox 100% on R/A; ak1 02:31 BP 113 / 73 Sitting; Pulse 46; ag4 02:31 BP 109 / 66 Standing; Pulse 74; ag4 03:42 BP 100 / 68; Pulse 56; Resp 14; Temp 98.1; Pulse Ox 100% on R/A; Pain 0/10; ak1 00:33 Body Mass Index 23.91 (61.23 kg, 160.02 cm) ak1 ED Course: 00:32 Patient arrived in ED. fc 00:33 Arm band placed on Patient placed in an exam room, on a stretcher. fc 00:35 Marcia Maciel, RN is Primary Nurse. ak1 00:35 Triage completed. fc 00:36 Patient has correct armband on for positive identification. Bed in low position. Call light in reach. Side rails up X2. 00:36 No provider procedures requiring assistance completed. fc 00:38 Ming Fontenot NP is PHCP. pm1 00:38 Darrell Mc MD is Attending Physician. pm1 01:30 Initial lab(s) drawn, by or, sent to lab. Inserted saline lock: 20 gauge in right hand, ak1 using aseptic technique. Blood collected. 04:17 IV discontinued, intact, bleeding controlled, No redness/swelling at site. Pressure ak1 dressing applied. Administered Medications: 01:29 Drug: NS 0.9% 1000 ml Route: IV; Rate: 1000 ml; Site: right hand; ak1 04:16 Follow up: IV Status: Completed infusion; IV Intake: 1000ml ak1 02:36 Drug: NS 0.9% 1000 ml Route: IV; Rate: 1000 ml; Site: right hand; ak1 04:16 Follow up: IV Status: Completed infusion; IV Intake: 1000ml ak1 Intake: 04:16 IV: 1000ml; Total: 1000ml. ak1 04:16 IV: 1000ml; Total: 2000ml. ak1 Outcome: 02:32 Discharge ordered by MD. pm1 03:42 Condition: improved ak1 03:42 Instructed on discharge instructions, follow up and referral plans. Demonstrated understanding of instructions, follow-up care. 04:17 Discharged to [facility] to catch the transit bus at 0600 if she wishes. ak1 04:25 Patient left the ED. ak1 Signatures: Tosha Oliver RN RN Marcia Maciel RN RN ak1 Ming Fontenot, HELP DESK INTERN HELP DESK INTERN pm1 Johnny Villalta ag4 Corrections: (The following items were deleted from the chart) 00:50 00:33 BP 110 / 83; Pulse 64bpm; Resp 18bpm; Pulse Ox 100% RA; Temp 97.9F Oral; 61.23 kg ak1 Reported; Height 5 ft. 3 in. Reported; BMI: 23.9; Pain 10/10; fc 02:25 02:02 BP 101 / 71; Pulse 50bpm; Resp 14bpm; Pulse Ox 100% RA; Temp 98.1F; ak1 ak1
== END 2018-07-30 04:25 | disposition home or self-care (01) ==
LOC: ER 00:31
DX: E86.0 Dehydration (principal); F31.70 Bipolar disorder, currently in remission, most recent episode unspecified; F17.210 Nicotine dependence, cigarettes, uncomplicated
CPT/HCPCS: 36415; 80048; 82962; 85025; J7030

== ENCOUNTER 2018-08-22 05:43 | Emergency (ER) | payer SELFPAY ==
--- OUTSIDE RECORDS SUMMARY | 2018-08-22 05:44 | XMS REPORT | Clinical Summary ---
:1970 Author Organization [facility] Address [address] [place] [address] Care Team Providers Name Role Phone Asked, [...] INFLUENZA VACCINE 11/02/2018 Results Not on fileafter 08/21/2017 Advance Directives Patient has advance care planning documents on file. For more information, please contact:Sergio Padron[address] [place] [address]
--- OUTSIDE RECORDS SUMMARY | 2018-08-22 05:45 | XMS REPORT | Clinical Summary ---
:1970 Author Organization [facility] Address [address] [place] [address] Care Team Providers Name Role Phone Sharpless [...] Not on file Results Not on fileafter 08/21/2017
--- OUTSIDE RECORDS SUMMARY | 2018-08-22 05:46 | XMS REPORT | Summary of Care ---
:1970 Author Organization [facility] Address [address] [place] [id number]- Encounter HQ Hunterntr_bran(FIN) [id number] Date(s): 01/31/18 - 01/31/[address] Professional Services provided by The [facility] [place] [address]- Encounter Diagnosis Dizziness (Discharge Diagnosis) - 01/31/18 Dizziness and giddiness (Final) - 02/04/18 Nicotine dependence, unspecified, uncomplicated (Final) - Bipolar disorder, unspecified (Final) - Discharge Disposition: Home or Self Care Attending Physician: Hardik Cortez MD Vital Signs Most recent to oldest [Reference Range]: 1 Temperature Oral [96.4-99.1 DegF] 97.9 DegF (01/31/18 2:28 PM) Blood Pressure [90-140/60-90 mmHg] 115/88 mmHg (01/31/18 2:28 PM) Respiratory Rate [14-20 BRMIN] 18 BRMIN (01/31/18 2:28 PM) Peripheral Pulse Rate [60-100 bpm] 88 bpm (01/31/18 2:28 PM) Weight 46.818 kg (01/31/18 2:28 PM) Problem List No data available for this section Allergies, Adverse Reactions, Alerts Substance Reaction Severity Status amoxicillin Active NKDA Active Medications No data available for this section Results No data available for this section Immunizations No data available for this section Procedures No data available for this section Social History Social History Type Response Smoking Status Never smoker; Exposure to Tobacco Smoke None; Cigarette Smoking Last 365 Days No; Reg Smoking Cessation Counseling No entered on: 04/13/18 Assessment and Plan No data available for this section
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
--- OUTSIDE RECORDS SUMMARY | 2018-08-22 05:47 | XMS REPORT ---
:1970 Author Organization [facility] Address [address] [place] [address] Care Team Providers Name Role Phone UNKNOWN, REFFERING Primary Care Provider Unavailable Problems This patient has no known problems. Allergies, Adverse Reactions, Alerts This patient has no known allergies or adverse reactions. Medications This patient has no known medications. Encounters Start End Encounter Admission Attending Care Care Encounter Date/Time Date/Time Type Type Clinicians Facility Department ID 2017-07-02 2017-07-02 Emergency E [facility] [id number] 08:16:00 08:16:00
--- NOTE | 2018-08-22 06:13 | ER ---
Nurse's Notes [facility] Name: Dayami Espinosa Age: 48 yrs Sex: Female : 1970 Arrival Date: 08/22/2018 Time: 05:44 Bed 15 Private MD: Diagnosis: Pain in right ankle and joints of right foot Presentation: 08/22 05:39 Presenting complaint: EMS states: Pt reports right ankle pain that started 4 hours ago. jb4 05:39 Transition of care: patient was not received from another setting of care. Onset of jb4 symptoms was August 22, 2018. Risk Assessment: Do you want to hurt yourself or someone else? Patient reports no desire to harm self or others. Initial Sepsis Screen: Does the patient meet any 2 criteria? No. Patient's initial sepsis screen is negative. Does the patient have a suspected source of infection? No. Patient's initial sepsis screen is negative. Care prior to arrival: None. 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 - Social history:: Smoking status: Patient uses tobacco products, smokes one pack cigarettes per day. Patient/guardian denies using alcohol. - Ebola Screening: : No symptoms or risks identified at this time. Screenin:39 Abuse screen: Denies threats or abuse. Nutritional screening: No deficits noted. jb4 Tuberculosis screening: No symptoms or risk factors identified. Fall Risk Gait- Impaired (20 pts.). Total Alfred Fall Scale indicates No Risk (0-24 pts). Assessment: 05:39 General: Appears in no apparent distress. uncomfortable, Behavior is calm, cooperative, jb4 appropriate for age. Pain: Complains of pain in right first toe and right knee, and right knee Pain does not radiate. Pain currently is 10 out of 10 on a pain scale. Quality of pain is described as throbbing. Neuro: Level of Consciousness is awake, alert, obeys commands, Oriented to person, place, time, situation. Cardiovascular: Patient's skin is warm and dry. Respiratory: Airway is patent Respiratory effort is even, unlabored, Respiratory pattern is regular, symmetrical. GI: No signs and/or symptoms were reported involving the gastrointestinal system. : No signs and/or symptoms were reported regarding the genitourinary system. EENT: No signs and/or symptoms were reported regarding the EENT system. Derm: Skin is intact, Skin is pink, warm \T\ dry. Musculoskeletal: Circulation, motion, and sensation intact. 06:38 Reassessment: Patient appears in no apparent distress at this time. Patient and/or jb4 family updated on plan of care and expected duration. Pain level reassessed. Patient is alert, oriented x 3, equal unlabored respirations, skin warm/dry/pink. PT wheeled to lobby to wait for bus ride home. no s/s of distress noted. Vital Signs: 05:39 BP 105 / 65; Pulse 79; Resp 16; Temp 98.4(O); Pulse Ox 100% on R/A; Weight 48.08 kg jb4 (R); Height 5 ft. 3 in. (160.02 cm) (R); Pain 10/10; 06:38 BP 113 / 60; Pulse 78; Resp 16; Pulse Ox 98% on R/A; jb4 05:39 Body Mass Index 18.78 (48.08 kg, 160.02 cm) [facility] ED Course: 05:39 Arm band placed on left wrist. jb4 05:39 Patient has correct armband on for positive identification. Bed in low position. Call [facility] light in reach. Side rails up X 1. Pulse ox on. NIBP on. 05:44 Patient arrived in ED. am2 05:48 Dylan Puente, BENI is Primary Nurse. jb4 05:49 Triage completed. jb4 05:54 Basia Lopez FNP-C is [facility]. kb 05:54 Darrell Mc MD is Attending Physician. kb 06:06 X-ray completed. Portable x-ray completed in exam room. Patient tolerated procedure kw well. 06:07 XRAY Ankle RIGHT 3 view In Process Unspecified. EDMS 06:38 No provider procedures requiring assistance completed. Patient did not have IV access jb4 during this emergency room visit. Administered Medications: 06:35 Drug: TORadol 60 mg Route: IM; Site: right gluteus; jb4 06:40 Follow up: Response: No adverse reaction; Medication administered at discharge. jb4 Outcome: 06:12 Discharge ordered by . brie 06:38 Discharged to home via wheelchair. jb4 06:38 Condition: stable 06:38 Discharge instructions given to patient, Instructed on discharge instructions, follow up and referral plans. Demonstrated understanding of instructions, follow-up care. 06:41 Patient left the ED. jb4 Signatures: Dispatcher [employer] EDBasia Hutchinson, MARIELY GARCIA-Josselin Garces James, RN RN jb4 Em Wu am2
--- NOTE | 2018-08-22 06:13 | EDPHYS ---
Physician Documentation [facility] Name: Dayami Espinosa Age: 48 yrs Sex: Female : 1970 Arrival Date: 08/22/2018 Time: 05:44 Bed 15 Private MD: ED Physician Darrell Mc HPI: 08/22 06:10 This 48 yrs old Female presents to ER via EMS with complaints of ankle pain. kb 06:10 The patient presents with pain, that is chronic. The complaints affect the right ankle. kb Onset: The symptoms/episode began/occurred 5 hour(s) ago. Context: The patient can fully bear weight on the affected extremity. the patient is able to ambulate, s/p injury in 1973. Associated signs and symptoms: The patient has no apparent associated signs or symptoms. Modifying factors: The symptoms are alleviated by nothing, the symptoms are aggravated by nothing. Severity of symptoms: At their worst the symptoms were moderate, in the emergency department the symptoms are unchanged. The patient has experienced similar episodes in the past. The patient has not recently seen a physician. Pt reports pain to right foot and ankle s/p injury in 1973. States she had 14 sutures in and 14 sutures out at the time and nearly lost her foot. Reports pain started 5 hours ago. 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 - Social history:: Smoking status: Patient uses tobacco products, smokes one pack cigarettes per day. Patient/guardian denies using alcohol. - Ebola Screening: : No symptoms or risks identified at this time. ROS: 06:09 Constitutional: Negative for fever, chills, and weight loss, Cardiovascular: Negative kb for chest pain, palpitations, and edema, Respiratory: Negative for shortness of breath, cough, wheezing, and pleuritic chest pain, Abdomen/GI: Negative for abdominal pain, nausea, vomiting, diarrhea, and constipation, Skin: Negative for injury, rash, and discoloration, Neuro: Negative for headache, weakness, numbness, tingling, and seizure. 06:09 MS/extremity: Positive for pain. Exam: 06:09 Constitutional: This is a well developed, well nourished patient who is awake, alert, kb and in no acute distress. Head/Face: Normocephalic, atraumatic. Chest/axilla: Normal chest wall appearance and motion. Nontender with no deformity. No lesions are appreciated. Cardiovascular: Regular rate and rhythm with a normal S1 and S2. No gallops, murmurs, or rubs. Normal PMI, no JVD. No pulse deficits. Respiratory: Lungs have equal breath sounds bilaterally, clear to auscultation and percussion. No rales, rhonchi or wheezes noted. No increased work of breathing, no retractions or nasal flaring. Abdomen/GI: Soft, non-tender, with normal bowel sounds. No distension or tympany. No guarding or rebound. No evidence of tenderness throughout. Skin: Warm, dry with normal turgor. Normal color with no rashes, no lesions, and no evidence of cellulitis. MS/ Extremity: Pulses equal, no cyanosis. Neurovascular intact. Full, normal range of motion. Neuro: Awake and alert, GCS 15, oriented to person, place, time, and situation. Cranial nerves II-XII grossly intact. Motor strength 5/5 in all extremities. Sensory grossly intact. Cerebellar exam normal. Normal gait. Vital Signs: 05:39 BP 105 / 65; Pulse 79; Resp 16; Temp 98.4(O); Pulse Ox 100% on R/A; Weight 48.08 kg jb4 (R); Height 5 ft. 3 in. (160.02 cm) (R); Pain 10/10; 06:38 BP 113 / 60; Pulse 78; Resp 16; Pulse Ox 98% on R/A; jb4 05:39 Body Mass Index 18.78 (48.08 kg, 160.02 cm) jb4 MDM: 05:54 Patient medically screened. kb 06:09 Data reviewed: vital signs, nurses notes. Data interpreted: Pulse oximetry: on room air kb is 100 %. Interpretation: normal. Counseling: I had a detailed discussion with the patient and/or guardian regarding: the historical points, exam findings, and any diagnostic results supporting the discharge/admit diagnosis, radiology results, the need for outpatient follow up, a orthopedic surgeon, to return to the emergency department if symptoms worsen or persist or if there are any questions or concerns that arise at home. 13:24 Test interpretation: by ED physician or midlevel provider: plain radiologic studies, no kb acute fracture. 08/22 05:46 Order name: XRAY Ankle RIGHT 3 view; Complete Time: 13:24 mw2 Administered Medications: 06:35 Drug: TORadol 60 mg Route: IM; Site: right gluteus; jb4 06:40 Follow up: Response: No adverse reaction; Medication administered at discharge. jb4 Disposition: 09:56 Co-signature as Attending Physician, Darrell Mc MD I agree with the assessment and sybil plan of care. Disposition: 08/22/18 06:12 Discharged to Home. Impression: Pain in right ankle and joints of right foot. - Condition is Stable. - Discharge Instructions: Ankle Pain. - Medication Reconciliation Form, Thank You Letter, Antibiotic Education, Prescription Opioid Use form. - Follow up: Emergency Department; When: As needed; Reason: Worsening of condition. Follow up: Private Physician; When: 2 - 3 days; Reason: Recheck today's complaints, Continuance of care, Re-evaluation by your physician. Signatures: Dispatcher [employer] EDBasia Hutchinson, HATCH TENDER-C HATCH TENDER-Darrell Crow MD MD cha Bryson, James, RN RN jb4 Corrections: (The following items were deleted from the chart) 06:41 06:12 08/22/2018 06:12 Discharged to Home. Impression: Pain in right ankle and joints jb4 of right foot. Condition is Stable. Forms are Medication Reconciliation Form, Thank You Letter, Antibiotic Education, Prescription Opioid Use. Follow up: Emergency Department; When: As needed; Reason: Worsening of condition. Follow up: Private Physician; When: 2 - 3 days; Reason: Recheck today's complaints, Continuance of care, Re-evaluation by your physician. kb
[2018-08-22] MEDS ORDERED: KETOROLAC 30 MG/ML INJ ONE (06:37)
--- NOTE | 2018-08-22 08:32 | RAD REPORT ---
EXAM DESCRIPTION: RAD - Ankle Right 3 View - 08/22/2018 6:06 am CLINICAL HISTORY: PAIN Trauma, pain to ankle COMPARISON: Ankle Right 3 View dated 05/22/2018 FINDINGS: No bone or joint abnormality seen.
== END 2018-08-22 06:41 | disposition home or self-care (01) ==
LOC: ER 05:43
DX: M25.571 Pain in right ankle and joints of right foot (principal); D64.9 Anemia, unspecified; F31.9 Bipolar disorder, unspecified
CPT/HCPCS: 96372; 99284

== ENCOUNTER 2018-08-25 22:23 | Emergency (ER) | payer SELFPAY ==
--- OUTSIDE RECORDS SUMMARY | 2018-08-25 22:26 | XMS REPORT | Clinical Summary ---
:1970 Author Organization [facility] Address [address] [place] [address] Care Team Providers Name Role Phone Sharpless [...] Not on file Results Not on fileafter 08/24/2017
--- OUTSIDE RECORDS SUMMARY | 2018-08-25 22:26 | XMS REPORT | Clinical Summary ---
:1970 [facility] Address [address] [place] [address] Care Team Providers Name Role Phone Asked, [...] Health Maintenance Due Date Last Done Comments INFLUENZA VACCINE 11/02/2018 Results Not on fileafter 08/24/2017 Advance Directives Patient has advance care planning documents on file. For more information, please contact:[id number] [place] [address]
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
--- OUTSIDE RECORDS SUMMARY | 2018-08-25 22:28 | XMS REPORT ---
:1970 Author Organization [facility] Address [address] [place] [address] Care Team Providers Name Role Phone UNKNOWN, REFFERING Primary Care Provider Unavailable Problems This patient has no known problems. Allergies, Adverse Reactions, Alerts This patient has no known allergies or adverse reactions. Medications This patient has no known medications. Encounters Start End Encounter Admission Attending Care Care Encounter Date/Time Date/Time Type Type Clinicians Facility Department ID 2017-07-02 2017-07-02 Emergency E [facility] MED [id number] 08:16:00 08:16:00
[2018-08-25 23:32] LABS: Urine Blood TRACE (NEG); Urine Glucose NEGATIVE (NEG); Urine Protein NEGATIVE (NEG)
[2018-08-25 23:32] LABS: Absolute Lymphocytes (CBC) 2.7 K/uL (0.7-4.9); Absolute Monocytes 0.7 K/uL (0.1-1.3); Absolute Neutrophil 5.1 K/uL (1.8-8.0); Eosinophils % 1.5 % (0-4.4); Hematocrit 33.2 % (36.0-45.0); Lymphocytes % 30.6 % (15.3-44.8); MPV 8.6 fL (7.6-11.3); Monocytes % 8.1 % (3.3-12.3)
[2018-08-25 23:41] LABS: ALT/SGPT 15 U/L (12-78); AST/SGOT 12 U/L (15-37); Albumin 3.3 g/dL (3.4-5.0); Alkaline Phosphatase 58 U/L (45-117); BUN Blood Urea Nitrogen 8 mg/dL (7-18); Bicarbonate 24 mmol/L (21-32); Bilirubin Direct 0.1 mg/dL (0-0.2); Bilirubin Total 0.4 mg/dL (0.2-1.0); Glucose Level 94 mg/dL (74-106); Lipase 162 U/L (73-393); Potassium 3.6 mmol/L (3.5-5.1); Protein, Total 7.1 g/dL (6.4-8.2); Sodium Level 140 mmol/L (136-145)
[2018-08-26 00:17] LABS: Anisocytosis 1+; Blood Morphology Comment NOTED (NOT SEEN); Platelet Estimate ADEQ; Urine White Blood Cell Casts OK
--- NOTE | 2018-08-26 00:51 | ER ---
Nurse's Notes [facility] Name: Dayami Espinosa Age: 48 yrs Sex: Female : 1970 Arrival Date: 08/25/2018 Time: 22:25 Bed 24 Private MD: Diagnosis: Lower abdominal pain, unspecified Presentation: 08/25 22:37 Presenting complaint: Patient states: Abdominal pain to RLQ that began at 1900; States lp1 hx of cyst on right ovary; Denies vomiting, diarrhea, fever; complaint of dizziness. Transition of care: patient was not received from another setting of care. Onset of symptoms was August 25, 2018. Risk Assessment: Do you want to hurt yourself or someone else? Patient reports no desire to harm self or others. Initial Sepsis Screen: Does the patient meet any 2 criteria? No. Patient's initial sepsis screen is negative. Does the patient have a suspected source of infection? No. Patient's initial sepsis screen is negative. Care prior to arrival: None. 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 - Social history:: Smoking status: Patient uses tobacco products, smokes one-half pack cigarettes per day. - Ebola Screening: : No symptoms or risks identified at this time. Screenin:40 Abuse screen: Denies threats or abuse. Denies injuries from another. Nutritional lp1 screening: No deficits noted. Tuberculosis screening: No symptoms or risk factors identified. Fall Risk None identified. Assessment: 22:52 General: Appears in no apparent distress. comfortable, Behavior is calm, cooperative. mg2 Pain: Complains of pain in RLQ Pain does not radiate. Pain currently is 6 out of 10 on a pain scale. Quality of pain is described as aching, Pain began gradually, 4 hours ago. Is intermittent. Neuro: Level of Consciousness is awake, alert, obeys commands, Oriented to person, place, time, situation. Cardiovascular: Capillary refill < 3 seconds Patient's skin is warm and dry. Respiratory: Airway is patent Respiratory effort is even, unlabored, Respiratory pattern is regular, symmetrical. GI: Bowel sounds present X 4 quads. Abd is soft and non tender X 4 quads. Reports lower abdominal pain, since 6 pm. EENT: No signs and/or symptoms were reported regarding the EENT system. Derm: Skin is intact, is healthy with good turgor, Skin is pink, warm \T\ dry. normal. Musculoskeletal: Circulation, motion, and sensation intact. Capillary refill < 3 seconds. 22:54 Neuro: Reports dizziness. mg2 Vital Signs: 22:39 BP 135 / 66; Pulse 75; Resp 18; Temp 98.4(O); Pulse Ox 98% on R/A; Weight 48.08 kg (R); lp1 Height 5 ft. 3 in. (160.02 cm); Pain 10/10; 22:39 Body Mass Index 18.78 (48.08 kg, 160.02 cm) lp1 ED Course: 22:25 Patient arrived in ED. am2 22:38 Triage completed. lp1 22:39 Arm band placed on right wrist. lp1 22:49 Asher Acosta, BENI is Primary Nurse. mg2 23:10 No provider procedures requiring assistance completed. Inserted saline lock: 20 gauge mg2 in right antecubital area, using aseptic technique. Blood collected. 23:11 Patient has correct armband on for positive identification. mg2 23:21 Darrell Bardales PA is PHCP. cp 23:21 Derrek Martines MD is Attending Physician. cp 08/26 00:07 X-ray completed. Patient tolerated procedure well. Patient moved to radiology via az wheelchair. Patient moved back from radiology. 00:19 XRAY Abdomen 1 View (KUB) In Process Unspecified. EDMS Administered Medications: No medications were administered Outcome: 00:50 Discharge ordered by . cp 01:53 Patient left the ED. Signatures: Dispatcher [employer] EDMS Tosha Oliver RN RN Patrizia Vincent RN RN lp1 Darrell Bardales PA PA cp Moreno, Amanda am2 Asher Acosta, RN RN mg2 Miranda Muniz in Corrections: (The following items were deleted from the chart) 08/25 23:10 22:52 GI: Bowel sounds present X 4 quads. Reports lower abdominal pain, nausea, mg2 vomiting, since 6 pm mg2
--- NOTE | 2018-08-26 00:51 | EDPHYS ---
Physician Documentation [facility] Name: Dayami Espinosa Age: 48 yrs Sex: Female : 1970 Arrival Date: 08/25/2018 Time: 22:25 Bed 24 Private MD: ED Physician Derrek Martines HPI: 08/25 23:00 This 48 yrs old Female presents to ER via EMS with complaints of Abdominal cp Pain - RLQ. 23:00 The patient presents with abdominal pain in the lower abdomen. Onset: The cp symptoms/episode began/occurred today, at 19:00. 23:00 Associated signs and symptoms: Pertinent negatives: anorexia, blood in stools, chest cp pain, constipation, diarrhea, dysuria, fever, vomiting. 23:00 Severity of pain: in the emergency department the pain is unchanged. cp [employer]: 22:39 LMP 08/01/2018 lp1 Historical: - Allergies: 22:39 NKA; lp1 - Home Meds: 22:39 Depakote 250 mg Oral TbEC 1 tab in the morning for Bipolar Disorder in Remission lp1 [Active]; Depakote 250 mg Oral TbEC 2 tabs nightly [Active]; - PMHx: 22:39 Anemia; Bipolar disorder; gastritis; Ovarian cyst; lp1 - PSHx: 22:39 Brain surgery; lp1 - Immunization history:: Adult Immunizations up to date. - Social history:: Smoking status: Patient uses tobacco products, smokes one-half pack cigarettes per day. - Ebola Screening: : No symptoms or risks identified at this time. ROS: 23:05 Constitutional: Negative for body aches, chills, fever, poor PO intake. cp 23:05 Eyes: Negative for injury, pain, redness, and discharge. cp 23:05 Abdomen/GI: Positive for abdominal pain, of the right lower quadrant and left lower cp quadrant, Negative for nausea, vomiting, and diarrhea, constipation, anorexia. 23:05 ENT: Negative for drainage from ear(s), ear pain, sore throat, difficulty swallowing, cp difficulty handling secretions. 23:05 Cardiovascular: Negative for chest pain. 23:05 Respiratory: Negative for cough, shortness of breath, wheezing. 23:05 Skin: Negative for rash. 23:05 All other systems are negative. Exam: 23:05 Head/Face: Normocephalic, atraumatic. cp 23:05 Constitutional: The patient appears in no acute distress, alert, awake, non-toxic, well developed, well nourished, patient sleeping in exam room 23:05 Eyes: Periorbital structures: appear normal, Conjunctiva: normal, no exudate, no injection, Lids and lashes: appear normal, bilaterally. 23:05 ENT: External ear(s): are unremarkable, Nose: is normal, Mouth: Lips: moist, Oral mucosa: moist, Posterior pharynx: is normal, airway is patent, no erythema, no exudate. 23:05 Chest/axilla: Inspection: normal, Palpation: is normal, no crepitus, no tenderness. 23:05 Cardiovascular: Rate: normal, Rhythm: regular. 23:05 Respiratory: the patient does not display signs of respiratory distress, Respirations: normal, no use of accessory muscles, no retractions, no splinting, no tachypnea, Breath sounds: are clear throughout, no decreased breath sounds, no stridor, no wheezing. 23:05 Abdomen/GI: Inspection: abdomen appears normal, Bowel sounds: active, all quadrants, Palpation: soft, in all quadrants, mild abdominal tenderness, in the right lower quadrant and left lower quadrant, rebound tenderness, is not appreciated, voluntary guarding, is not appreciated, involuntary guarding, is not appreciated. 23:05 Back: pain, is absent, ROM is normal. Vital Signs: 22:39 BP 135 / 66; Pulse 75; Resp 18; Temp 98.4(O); Pulse Ox 98% on R/A; Weight 48.08 kg (R); lp1 Height 5 ft. 3 in. (160.02 cm); Pain 10/10; 22:39 Body Mass Index 18.78 (48.08 kg, 160.02 cm) lp1 MDM: 23:23 Patient medically screened. cp 08/26 00:50 Data reviewed: vital signs, nurses notes, lab test result(s), radiologic studies, plain cp films. 00:50 Test interpretation: by ED physician or midlevel provider: xrays of abdomen negative cp for acute findings. Special discussion: Based on the patient's Hx, exam, and Dx evaluation, there is no indication for emergent surgery or inpatient Tx. It is understood by the patient/guardian that if the Sx's persist or worsen they need to return immediately for re-evaluation. ED course: VSS. Patient sleeping in exam room. Will discharge to home for continued monitoring. 08/25 22:53 Order name: Basic Metabolic Panel [facility] [place] 08/25 22:53 Order name: CBC with Diff [facility] [place] 08/25 22:53 Order name: Creatinine for Radiology; Complete Time: 00:46 mg2 08/25 22:53 Order name: Hepatic Function; Complete Time: 00:46 mg2 08/26 00:45 Interpretation: Normal except: AST 12; ALB 3.3; GLOB 3.8; A/G 0.9. cp 08/25 22:53 Order name: Lipase; Complete Time: 00:46 mg2 08/25 22:53 Order name: Basic Metabolic Panel; Complete Time: 00:46 EDMS 08/26 00:46 Interpretation: Normal except: CL 110; CA 8.0. 08/25 22:53 Order name: IV Saline Lock; Complete Time: 23:07 [facility] [place] 08/25 22:53 Order name: Labs collected and sent; Complete Time: 23:08 [facility] [place] 08/25 22:53 Order name: Urine Dipstick-Ancillary (obtain specimen); Complete Time: 23:07 [facility] [place] 08/25 22:53 Order name: CBC with Automated Diff; Complete Time: 00:46 EDMS 08/26 00:46 Interpretation: Normal except: HGB 10.8; HCT 33.2; MCH 26.3; PLT 424; RDW 20.2. 08/25 23:06 Order name: Urine Dipstick--Ancillary (enter results); Complete Time: 23:39 ag4 08/26 00:46 Interpretation: Normal except: UBLD TRACE; UESTR 1+. 08/25 23:06 Order name: Urine --Ancillary (enter results); Complete Time: 23:39 ag4 08/25 23:40 Order name: XRAY Abdomen 1 View (KUB) 08/26 00:18 Order name: CBC Smear Scan; Complete Time: 00:46 EDMS Administered Medications: No medications were administered Disposition: 02:45 Co-signature as Attending Physician, Derrek Martines MD. pkl Disposition: 08/26/18 00:50 Discharged to Home. Impression: Lower abdominal pain, unspecified. - Condition is Stable. - Discharge Instructions: Abdominal Pain, Adult. - Prescriptions for Ibuprofen 800 mg Oral Tablet - take 1 tablet by ORAL route every 8 hours As needed take with food; 30 tablet. - Medication Reconciliation Form, Thank You Letter, Antibiotic Education, Prescription Opioid Use form. - Follow up: Private Physician; When: 1 - 2 days; Reason: Recheck today's complaints. - Problem is new. - Symptoms have improved. Signatures: Dispatcher [employer] EDMS Derrek Martines MD MD pkl Chretien, Felicia RN RN fc Patrizia Vincent RN RN lp1 Darrell Bardales PA PA cp Asher Acosta RN RN mg2 Corrections: (The following items were deleted from the chart) 00:47 00:46 Normal except: CL 110. cp cp 01:53 00:50 08/26/2018 00:50 Discharged to Home. Impression: Lower abdominal pain, fc unspecified. Condition is Stable. Forms are Medication Reconciliation Form, Thank You Letter, Antibiotic Education, Prescription Opioid Use. Follow up: Private Physician; When: 1 - 2 days; Reason: Recheck today's complaints. Problem is new. Symptoms have improved. cp
--- NOTE | 2018-08-26 11:04 | RAD REPORT ---
EXAM DESCRIPTION: RAD - Abdomen 1 View (KUB) - 08/26/2018 12:17 am CLINICAL HISTORY: ABD PAIN Pain COMPARISON: Abdomen 1 View (KUB) dated 02/20/2017; Abdomen 1 View (KUB) dated 01/19/2017 FINDINGS: The bowel gas pattern is non-obstructive. No evidence of free air or pneumatosis. No suspi cious calcifications. No significant bony findings. IMPRESSION: Negative examination.
== END 2018-08-26 01:53 | disposition home or self-care (01) ==
LOC: ER 22:23
DX: R10.31 Right lower quadrant pain (principal); D64.9 Anemia, unspecified; F31.9 Bipolar disorder, unspecified; F17.210 Nicotine dependence, cigarettes, uncomplicated
CPT/HCPCS: 36415; 74018; 80048; 80076; 81003; 81025; 83690; 85025; 99284

== ENCOUNTER 2018-08-28 00:04 | Emergency (ER) | payer SELFPAY ==
--- OUTSIDE RECORDS SUMMARY | 2018-08-28 00:07 | XMS REPORT | Clinical Summary ---
:1970 [facility] [address] [place] [address] Care Team Providers Name Role Phone Asked, [...] INFLUENZA VACCINE 11/02/2018 Results Not on fileafter 08/27/2017 Advance Directives Patient has advance care planning documents on file. For more information, please contact:[facility] [place] [address]
--- OUTSIDE RECORDS SUMMARY | 2018-08-28 00:07 | XMS REPORT | Clinical Summary ---
:1970 Author Organization [facility] Address [address] [place] [address] Care Team Providers Name Role Phone Sharpless [...] Not on file Results Not on fileafter 08/27/2017
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
--- OUTSIDE RECORDS SUMMARY | 2018-08-28 00:11 | XMS REPORT ---
:1970 Author Organization [facility] Address [address] [place] [address] Care Team Providers Name Role Phone UNKNOWN, REFFERING Primary Care Provider Unavailable Problems This patient has no known problems. Allergies, Adverse Reactions, Alerts This patient has no known allergies or adverse reactions. Medications This patient has no known medications. Encounters Start End Encounter Admission Attending Care Care Encounter Date/Time Date/Time Type Type Clinicians Facility Department ID 2017-07-02 2017-07-02 Emergency [facility] MED [id number] 08:16:00 08:16:00
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
== END 2018-08-28 00:28 | disposition left against medical advice (07) ==
LOC: ER 00:04
DX: Z53.21 Procedure and treatment not carried out due to patient leaving prior to being seen by health care provider (principal)
CPT/HCPCS: 99283

== ENCOUNTER 2018-08-29 12:47 | Emergency (ER) | payer SELFPAY ==
--- OUTSIDE RECORDS SUMMARY | 2018-08-29 12:50 | XMS REPORT | Clinical Summary ---
:1970 Author Organization [facility] Address [address] [place] [address] Care Team Providers Name Role Phone Sharpless [...] Not on file Results Not on fileafter 08/28/2017
--- OUTSIDE RECORDS SUMMARY | 2018-08-29 12:50 | XMS REPORT | Clinical Summary ---
:1970 Author Organization [facility] Address [address] [place] [address] Care Team Providers Name Role Phone Asked, [...] INFLUENZA VACCINE 11/02/2018 Results Not on fileafter 08/28/2017 Advance Directives Patient has advance care planning documents on file. For more information, please contact:[place] [id number] [place] [address]
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
--- OUTSIDE RECORDS SUMMARY | 2018-08-29 12:52 | XMS REPORT ---
:1970 Author Organization [facility] Address [address] [place] [address] [address] [place] [address] Care Team Providers Name Role Phone UNKNOWN, REFFERING Primary Care Provider Unavailable Problems This patient has no known problems. Allergies, Adverse Reactions, Alerts This patient has no known allergies or adverse reactions. Medications This patient has no known medications. Encounters Start End Encounter Admission Attending Care Care Encounter Date/Time Date/Time Type Type Clinicians Facility Department ID 2017-07-02 2017-07-02 Emergency E [facility] MED [id number] 08:16:00 08:16:00
[2018-08-29] MEDS ORDERED: ONDANSETRON 4 MG/2 ML VIAL ONE (14:14)
[2018-08-29] MEDS ORDERED: NA CHLORIDE 0.9% 1,000 ML ONE (14:14)
[2018-08-29 14:43] LABS: Absolute Monocytes 0.9 K/uL (0.1-1.3); Absolute Neutrophil 10.6 K/uL (1.8-8.0); Basophils % 1.1 % (0-1.3); Eosinophils % 0.2 % (0-4.4); Lymphocytes % 7.9 % (15.3-44.8); MPV 8.5 fL (7.6-11.3); Monocytes % 7.5 % (3.3-12.3); RBC Red Blood Cell Count 4.72 M/uL (3.86-4.86)
[2018-08-29 14:51] LABS: Albumin 3.5 g/dL (3.4-5.0); Bilirubin Direct 0.2 mg/dL (0-0.2); Bilirubin Total 0.6 mg/dL (0.2-1.0); Protein, Total 7.2 g/dL (6.4-8.2)
--- NOTE | 2018-08-29 15:39 | ER ---
Nurse's Notes [facility] Name: Dayami Espinosa Age: 48 yrs Sex: Female : 1970 Arrival Date: 08/29/2018 Time: 12:50 Bed 19 Private MD: Diagnosis: Vomiting Presentation: 08/29 12:59 Presenting complaint: Patient states: N/V and upper abd discomfort that began 2-3 days ss ago after eating [employer]. Pt reports she was seen in the ER 3 days ago, but eloped because she was hurting so bad. Transition of care: patient was not received from another setting of care. Onset of symptoms was August 26, 2018. Risk Assessment: Do you want to hurt yourself or someone else? Patient reports no desire to harm self or others. Initial Sepsis Screen: Does the patient meet any 2 criteria? HR > 90 bpm. Does the patient have a suspected source of infection? No. Patient's initial sepsis screen is negative. Care prior to arrival: None. 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 - Social history:: Smoking status: Patient uses tobacco products, smokes one-half pack cigarettes per day. - Ebola Screening: : Patient denies exposure to infectious person Patient denies travel to an Ebola-affected area in the 21 days before illness onset. Screenin:10 Abuse screen: Denies threats or abuse. Nutritional screening: No deficits noted. rb1 Tuberculosis screening: No symptoms or risk factors identified. Fall Risk None identified. Assessment: 13:01 Reassessment: Pt is drinking 44 oz fountain drink during triage. ss 13:10 General: Appears uncomfortable, slender, Behavior is calm, cooperative, Denies fever. rb1 Pain: Complains of pain in epigastric area Pain currently is 4 out of 10 on a pain scale. at worst was 10 out of 10 on a pain scale. Neuro: Level of Consciousness is awake, alert, obeys commands, Oriented to person, place, time, situation. Cardiovascular: Capillary refill < 3 seconds is brisk in bilateral fingers. Respiratory: Airway is patent Respiratory effort is even, unlabored, Respiratory pattern is regular, symmetrical. GI: Abdomen is flat, non-distended, Bowel sounds present X 4 quads. Reports nausea. : No signs and/or symptoms were reported regarding the genitourinary system. Derm: Skin is pink, warm \T\ dry. 14:10 Reassessment: Patient appears in no apparent distress at this time. No changes from rb1 previously documented assessment. 15:00 Reassessment: Patient appears in no apparent distress at this time. Patient and/or rb1 family updated on plan of care and expected duration. Pain level reassessed. Patient is alert, oriented x 3, equal unlabored respirations, skin warm/dry/pink. 16:00 Reassessment: Patient appears in no apparent distress at this time. No changes from rb1 previously documented assessment. 16:14 Reassessment: Trying to find a wheelchair to take the pt. to her vehicle per pt. rb1 request. Registration was calling the Main Lobby to see if a volunteer could bring some wheelchairs to the ED because we don't have any available. Vital Signs: 13:00 BP 118 / 80; Pulse 94; Resp 17; Temp 99.0(TE); Pulse Ox 99% on R/A; Weight 48.08 kg; ss Height 5 ft. 3 in. (160.02 cm); Pain 10/10; 14:00 BP 109 / 70; Pulse 74; Resp 15; Temp 98.5(O); Pulse Ox 99% on R/A; Pain 5/10; rb1 14:53 BP 111 / 65; Pulse 75; Resp 16; Temp 98.5(O); Pulse Ox 100% ; mh5 15:00 BP 107 / 64; Pulse 67; Resp 17; Temp 98.3(O); Pulse Ox 98% on R/A; Pain 6/10; rb1 16:00 BP 109 / 67; Pulse 78; Resp 17; Temp 98.0(O); Pulse Ox 100% on R/A; Pain 5/10; rb1 13:00 Body Mass Index 18.78 (48.08 kg, 160.02 cm) ED Course: 12:50 Patient arrived in ED. as 13:00 Triage completed. ss 13:00 Arm band placed on right wrist. ss 13:10 Patient has correct armband on for positive identification. Bed in low position. Call rb1 light in reach. Side rails up X 1. Pulse ox on. NIBP on. Warm blanket given. 13:11 Ming Fontenot NP is PHCP. pm1 13:11 Chloe Perry MD is Attending Physician. pm1 13:52 Jenni Patino, RN is Primary Nurse. rb1 14:10 Missed attempt(s): 22 gauge in right antecubital area. rb1 14:20 Inserted saline lock: 22 gauge in left antecubital area, using aseptic technique. Blood rb1 collected. 16:30 No provider procedures requiring assistance completed. IV discontinued, intact, rb1 bleeding controlled, No redness/swelling at site. Pressure dressing applied. Administered Medications: 14:20 Drug: NS 0.9% 1000 ml Route: IV; Rate: 1000 ml; Site: left antecubital; rb1 15:23 Follow up: IV Status: Completed infusion rb1 14:20 Drug: Zofran 4 mg Route: IVP; Site: left antecubital; rb1 14:35 Follow up: Response: No adverse reaction; Nausea is decreased rb1 Outcome: 15:38 Discharge ordered by MD. pm1 16:30 Patient left the ED. rb1 16:30 Discharged to home via wheelchair, with family. rb1 16:30 Condition: stable 16:30 Discharge instructions given to patient, Instructed on discharge instructions, follow up and referral plans. medication usage, Demonstrated understanding of instructions, follow-up care, medications, Prescriptions given X 2. Signatures: Liana Colby Shelby, RN RN Jenni Patino RN RN [facility] Ming Fontenot NP DRUG ABUSE COUNSELOR pm1 Mica Colby [facility] Corrections: (The following items were deleted from the chart) 16:56 16:55 Patient left the ED. rb1 rb1 20:02 16:00 Pulse 78bpm; Pulse Ox 100% RA; Temp 98.0F Oral; Pain 5/10; rb1 rb1
--- NOTE | 2018-08-29 15:39 | EDPHYS ---
Physician Documentation [facility] Name: Dayami Espinosa Age: 48 yrs Sex: Female : 1970 Arrival Date: 08/29/2018 Time: 12:50 Bed 19 Private MD: ED Physician Chloe Perry HPI: 08/29 13:22 This 48 yrs old Female presents to ER via Ambulatory with complaints of pm1 Vomiting. 13:22 The patient presents to the emergency department with vomiting. pm1 13:22 Onset: The symptoms/episode began/occurred 3 day(s) ago. Possible causes: bad food pm1 exposure, Taco from [employer]. The symptoms are aggravated by food , The symptoms are alleviated by nothing. Associated signs and symptoms: Pertinent positives: abdominal pain, Pertinent negatives: constipation, diarrhea, dysuria, fever. Severity of symptoms: in the emergency department the symptoms are unchanged. 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 - Social history:: Smoking status: Patient uses tobacco products, smokes one-half pack cigarettes per day. - Ebola Screening: : Patient denies exposure to infectious person Patient denies travel to an Ebola-affected area in the 21 days before illness onset. ROS: 13:35 Constitutional: Negative for fever, chills, and weight loss, Eyes: Negative for injury, pm1 pain, redness, and discharge, ENT: Negative for injury, pain, and discharge, Neck: Negative for injury, pain, and swelling, Cardiovascular: Negative for chest pain, palpitations, and edema, Respiratory: Negative for shortness of breath, cough, wheezing, and pleuritic chest pain. 13:35 Back: Negative for injury and pain, : Negative for injury, bleeding, discharge, and swelling, MS/Extremity: Negative for injury and deformity, Skin: Negative for injury, rash, and discoloration, Neuro: Negative for headache, weakness, numbness, tingling, and seizure. 13:35 Abdomen/GI: Positive for abdominal pain, nausea and vomiting, Negative for diarrhea, constipation. Exam: 13:35 Constitutional: This is a well developed, well nourished patient who is awake, alert, pm1 and in no acute distress. Head/Face: Normocephalic, atraumatic. Eyes: Pupils equal round and reactive to light, extra-ocular motions intact. Lids and lashes normal. Conjunctiva and sclera are non-icteric and not injected. Cornea within normal limits. Periorbital areas with no swelling, redness, or edema. ENT: Nares patent. No nasal discharge, no septal abnormalities noted. Tympanic membranes are normal and external auditory canals are clear. Oropharynx with no redness, swelling, or masses, exudates, or evidence of obstruction, uvula midline. Mucous membranes moist. Neck: Trachea midline, no thyromegaly or masses palpated, and no cervical lymphadenopathy. Supple, full range of motion without nuchal rigidity, or vertebral point tenderness. No Meningismus. Chest/axilla: Normal chest wall appearance and motion. Nontender with no deformity. No lesions are appreciated. Cardiovascular: Regular rate and rhythm with a normal S1 and S2. No gallops, murmurs, or rubs. Normal PMI, no JVD. No pulse deficits. Respiratory: Lungs have equal breath sounds bilaterally, clear to auscultation and percussion. No rales, rhonchi or wheezes noted. No increased work of breathing, no retractions or nasal flaring. Abdomen/GI: Soft, non-tender, with normal bowel sounds. No distension or tympany. No guarding or rebound. No evidence of tenderness throughout. Back: No spinal tenderness. No costovertebral tenderness. Full range of motion. Skin: Warm, dry with normal turgor. Normal color with no rashes, no lesions, and no evidence of cellulitis. MS/ Extremity: Pulses equal, no cyanosis. Neurovascular intact. Full, normal range of motion. 13:35 Neuro: Orientation: is normal, Motor: is normal, no acute changes, Gait: is steady, at a normal pace, without difficulty. Vital Signs: 13:00 BP 118 / 80; Pulse 94; Resp 17; Temp 99.0(TE); Pulse Ox 99% on R/A; Weight 48.08 kg; ss Height 5 ft. 3 in. (160.02 cm); Pain 10/10; 14:00 BP 109 / 70; Pulse 74; Resp 15; Temp 98.5(O); Pulse Ox 99% on R/A; Pain 5/10; rb1 14:53 BP 111 / 65; Pulse 75; Resp 16; Temp 98.5(O); Pulse Ox 100% ; mh5 15:00 BP 107 / 64; Pulse 67; Resp 17; Temp 98.3(O); Pulse Ox 98% on R/A; Pain 6/10; rb1 16:00 BP 109 / 67; Pulse 78; Resp 17; Temp 98.0(O); Pulse Ox 100% on R/A; Pain 5/10; rb1 13:00 Body Mass Index 18.78 (48.08 kg, 160.02 cm) ss MDM: 13:17 Patient medically screened. pm1 15:30 Refusal of service: The patient/guardian displays adequate decision making capability pm1 and despite a detailed discussion of alternatives, benefits, risks, and consequences refuses: CT Scan, Patient does not want the scan because it was performed in the ER here recently without any findings. I wanted the CT scan due to elevated WBC. 15:37 Data reviewed: vital signs. Data interpreted: Pulse oximetry: on room air is 100 %. pm1 Interpretation: normal. Counseling: I had a detailed discussion with the patient and/or guardian regarding: the historical points, exam findings, and any diagnostic results supporting the discharge/admit diagnosis, lab results, the need for outpatient follow up, to return to the emergency department if symptoms worsen or persist or if there are any questions or concerns that arise at home. 08/29 13:20 Order name: Basic Metabolic Panel; Complete Time: 15:05 pm1 08/29 13:20 Order name: CBC with Diff; Complete Time: 15: pm1 08/29 13:20 Order name: Creatinine for Radiology; Complete Time: 15: pm1 08/29 13:20 Order name: Hepatic Function; Complete Time: 15:05 pm1 08/29 13:20 Order name: Lipase; Complete Time: 15:05 pm1 08/29 13:20 Order name: IV Saline Lock; Complete Time: 14:32 pm1 08/29 13:20 Order name: Labs collected and sent; Complete Time: 14:32 pm1 Administered Medications: 14:20 Drug: NS 0.9% 1000 ml Route: IV; Rate: 1000 ml; Site: left antecubital; rb1 15:23 Follow up: IV Status: Completed infusion rb1 14:20 Drug: Zofran 4 mg Route: IVP; Site: left antecubital; rb1 14:35 Follow up: Response: No adverse reaction; Nausea is decreased rb1 Disposition: 21:16 Co-signature as Attending Physician, Chloe Perry MD. ma2 Disposition: 08/29/18 15:38 Discharged to Home. Impression: Vomiting. - Condition is Stable. - Discharge Instructions: Food Poisoning, Nausea and Vomiting, Adult. - Prescriptions for Zofran 4 mg Oral Tablet - take 1 tablet by ORAL route every 12 hours As needed; 20 tablet. promethazine 25 mg Oral Tablet - take 1 tablet by ORAL route every 6 hours As needed; 20 tablet. - Medication Reconciliation Form, Thank You Letter, Antibiotic Education, Prescription Opioid Use form. - Follow up: Emergency Department; When: As needed; Reason: Worsening of condition. Follow up: Private Physician; When: 2 - 3 days; Reason: Recheck today's complaints, Continuance of care, Re-evaluation by your physician. - Problem is new. - Symptoms have improved. Signatures: Dispatcher [employer] EDMS Carola Ashton RN RN Jenni Patino RN RN rb1 Ming Fontenot, TIRE CORD WEAVER TIRE CORD WEAVER pm1 Chloe Perry MD MD ga2 Corrections: (The following items were deleted from the chart) 16:55 15:38 08/29/2018 15:38 Discharged to Home. Impression: Vomiting. Condition is Stable. rb1 Forms are Medication Reconciliation Form, Thank You Letter, Antibiotic Education, Prescription Opioid Use. Follow up: Emergency Department; When: As needed; Reason: Worsening of condition. Follow up: Private Physician; When: 2 - 3 days; Reason: Recheck today's complaints, Continuance of care, Re-evaluation by your physician. Problem is new. Symptoms have improved. pm1
== END 2018-08-29 16:55 | disposition home or self-care (01) ==
LOC: ER 12:47
DX: R11.10 Vomiting, unspecified (principal); R10.9 Unspecified abdominal pain; D64.9 Anemia, unspecified; F31.9 Bipolar disorder, unspecified; F17.210 Nicotine dependence, cigarettes, uncomplicated
CPT/HCPCS: 36415; 80048; 80076; 83690; 85025; 96361; 96374; 99284; J2405; J7030

== ENCOUNTER 2018-08-31 00:10 | Emergency (ER) | payer SELFPAY ==
[2018-08-31 00:36] LABS: Absolute Lymphocytes (CBC) 2.2 K/uL (0.7-4.9); Absolute Neutrophil 5.6 K/uL (1.8-8.0); Basophils % 0.5 % (0-1.3); Eosinophils % 1.3 % (0-4.4); Hematocrit 33.4 % (36.0-45.0); Lymphocytes % 24.2 % (15.3-44.8); Monocytes % 11.2 % (3.3-12.3); RBC Red Blood Cell Count 4.12 M/uL (3.86-4.86)
[2018-08-31] MEDS ORDERED: NA CHLORIDE 0.9% 1,000 ML ONE (00:45)
[2018-08-31 00:52] LABS: Barbiturates NEGATIVE (NEGATIVE); Benzodiazepines NEGATIVE (NEGATIVE); Cocaine NEGATIVE (NEGATIVE); METHAMPHETAM NEGATIVE (NEGATIVE); Methadone NEGATIVE (NEGATIVE); Opiates NEGATIVE (NEGATIVE); Phencyclidine NEGATIVE (NEGATIVE); THC Cannibis NEGATIVE (NEGATIVE)
[2018-08-31 00:56] LABS: ALT/SGPT 11 U/L (12-78); AST/SGOT 9 U/L (15-37); Albumin 3.1 g/dL (3.4-5.0); Alkaline Phosphatase 54 U/L (45-117); BUN Blood Urea Nitrogen 6 mg/dL (7-18); Bicarbonate 25 mmol/L (21-32); Bilirubin Direct 0.1 mg/dL (0-0.2); Bilirubin Total 0.4 mg/dL (0.2-1.0); Glucose Level 91 mg/dL (74-106); Lipase 130 U/L (73-393); Protein, Total 6.9 g/dL (6.4-8.2); Sodium Level 140 mmol/L (136-145)
[2018-08-31 00:58] LABS: Potassium 2.9 mmol/L (3.5-5.1)
[2018-08-31 00:59] LABS: Urine Amorphous Sediment TRACE /HPF (NONE SEEN); Urine Bacteria 20-50 /HPF (<20); Urine Culture Reflex Order REFLEXED
[2018-08-31] MEDS ORDERED: KCL 20 MEQ/100 mL IVPB 20 MEQ/100 ML BAG IV ONE (01:46)
[2018-08-31] MEDS ORDERED: POTASSIUM CL SA 10 MEQ TAB PO ONE (01:46)
[2018-08-31] MEDS ORDERED: MEPERIDINE HCL 25 MG/0.5 ML ONE (01:58)
--- NOTE | 2018-08-31 04:31 | ER ---
Nurse's Notes [facility] Name: Dayami Espinosa Age: 48 yrs Sex: Female : 1970 Arrival Date: 08/31/2018 Time: 00:15 Bed 15 Private MD: Diagnosis: Ruptured ovarian cyst;enteritis Presentation: 08/31 00:15 Presenting complaint: EMS states: complaining of abdominal pain started last Tuesday rr5 after she ate at [employer]. had diarrhea yesterday and vomit. 00:15 Transition of care: patient was not received from another setting of care. Onset of rr5 symptoms was August 26, 2018. Risk Assessment: Do you want to hurt yourself or someone else? Patient reports no desire to harm self or others. Initial Sepsis Screen: Does the patient meet any 2 criteria? No. Patient's initial sepsis screen is negative. Does the patient have a suspected source of infection? No. Patient's initial sepsis screen is negative. Note the abdominal pain gets worse worse today as verbalized by the patient. from EMS V/S BP 108/62 HR 105 O2 sat 98%. Care prior to arrival: None. 00:15 Method Of Arrival: EMS: [facility] rr5 00:15 Acuity: JAZMIN 3 rr5 TIME RECORDER: 00:15 LMP 08/2018, on 3rd day of menstruation rr5 Historical: - Allergies: 00:20 No Known Allergies; rr5 - Home Meds: 00:20 Depakote 250 mg Oral TbEC 1 tab in the morning for Bipolar Disorder in Remission rr5 [Active]; Depakote 250 mg Oral TbEC 2 tabs nightly [Active]; - PMHx: 00:20 Anemia; Bipolar disorder; gastritis; Ovarian cyst; rr5 - PSHx: 00:20 brain surgery; rr5 - Immunization history:: Adult Immunizations up to date. - Social history:: Smoking status: Patient uses tobacco products, smokes one-half pack cigarettes per day, Patient uses alcohol, but reports only rare drinking. Patient/guardian denies using street drugs. - Ebola Screening: : Patient negative for fever greater than or equal to 101.5 degrees Fahrenheit, and additional compatible Ebola Virus Disease symptoms Patient denies exposure to infectious person Patient denies travel to an Ebola-affected area in the 21 days before illness onset. - Family history:: not pertinent. - Hospitalizations: : No recent hospitalization is reported. Screenin:20 Abuse screen: Denies threats or abuse. Nutritional screening: No deficits noted. jb4 Tuberculosis screening: No symptoms or risk factors identified. Fall Risk IV access (20 points). Gait- Impaired (20 pts.). Total Alfred Fall Scale indicates Low Risk Score (25-44 pts). Fall prevention measures have been instituted. Side Rails Up X 2 Placed close to Nursing Station Frequent Obs/Assesments occuring As available Patient and Family Educated on Fall Prevention Program and strategies. Assessment: 00:20 General: Appears in no apparent distress. uncomfortable, Behavior is calm, cooperative, jb4 appropriate for age. Pain: Complains of pain in suprapubic area and left lower quadrant Pain does not radiate. Pain currently is 8 out of 10 on a pain scale. Neuro: Level of Consciousness is awake, alert, obeys commands, Oriented to person, place, time, situation. Cardiovascular: Patient's skin is warm and dry. Respiratory: Airway is patent Respiratory effort is even, unlabored, Respiratory pattern is regular, symmetrical. GI: Abdomen is flat, Bowel sounds present X 4 quads. Abd is soft X 4 quads Abd is non tender in right upper quadrant, left upper quadrant and right lower quadrant Abdomen is tender to palpation in left lower quadrant. : No signs and/or symptoms were reported regarding the genitourinary system. EENT: No signs and/or symptoms were reported regarding the EENT system. Derm: Skin is intact, Skin is pink, warm \T\ dry. Musculoskeletal: Circulation, motion, and sensation intact. 01:20 Reassessment: Patient appears in no apparent distress at this time. Patient and/or jb4 family updated on plan of care and expected duration. Pain level reassessed. Patient is alert, oriented x 3, equal unlabored respirations, skin warm/dry/pink. 02:19 Reassessment: Patient appears in no apparent distress at this time. Patient and/or jb4 family updated on plan of care and expected duration. Pain level reassessed. Patient is alert, oriented x 3, equal unlabored respirations, skin warm/dry/pink. Patient states feeling better. 03:17 Reassessment: Patient appears in no apparent distress at this time. Patient and/or jb4 family updated on plan of care and expected duration. Pain level reassessed. Patient is alert, oriented x 3, equal unlabored respirations, skin warm/dry/pink. pt is back from CT. 04:40 Reassessment: Patient appears in no apparent distress at this time. Patient and/or jb4 family updated on plan of care and expected duration. Pain level reassessed. Patient is alert, oriented x 3, equal unlabored respirations, skin warm/dry/pink. Patient states feeling better. Vital Signs: 00:15 BP 99 / 63; Pulse 91; Resp 17; Temp 99.1; Pulse Ox 100% ; Weight 48.08 kg; Height 5 ft. rr5 3 in. (160.02 cm); Pain 10/10; 01:00 BP 108 / 94; Pulse 88; Resp 16; Pulse Ox 100% on R/A; jb4 02:00 BP 104 / 64; Pulse 87; Resp 16; Pulse Ox 100% on R/A; jb4 03:18 BP 103 / 64; Pulse 86; Resp 16; Pulse Ox 100% on R/A; jb4 04:40 BP 100 / 75; Pulse 67; Resp 16; Pulse Ox 98% on R/A; jb4 00:15 Body Mass Index 18.78 (48.08 kg, 160.02 cm) rr5 ED Course: 00:15 Patient arrived in ED. ed1 00:15 Vladimir Coelho MD is Attending Physician. rn 00:15 Arm band placed on left wrist. rr5 00:19 Triage completed. rr5 00:20 Patient has correct armband on for positive identification. Bed in low position. Call jb4 light in reach. Side rails up X 1. Pulse ox on. NIBP on. 00:25 Initial lab(s) drawn, by me, sent to lab. Inserted saline lock: 22 gauge in right jb4 antecubital area, using aseptic technique. Blood collected. 00:49 Dylan Puente, RN is Primary Nurse. jb4 00:58 Notified ED physician of a critical lab result(s). 2.9 K+. ak1 03:02 CT Abd/Pelvis - W/Contrast In Process Unspecified. EDMS 03:18 IV is patent, is intact, with fluids infusing freely, with good blood return, Flushed jb4 right antecubital with 5 ml normal saline. 04:40 No provider procedures requiring assistance completed. IV discontinued, intact, jb4 bleeding controlled, No redness/swelling at site. Administered Medications: 00:30 Drug: NS 0.9% 1000 ml Route: IV; Rate: 1000 ml; Site: right antecubital; jb4 01:30 Follow up: Response: No adverse reaction; IV Status: Completed infusion; IV Intake: jb4 1000ml 01:25 Drug: Potassium Chloride 40 mEq Route: PO; jb4 02:23 Follow up: Response: No adverse reaction jb4 01:25 Drug: Potassium Chloride 20 mEq Route: IV; Rate: calculated rate; Site: right jb4 antecubital; 03:25 Follow up: Response: No adverse reaction; IV Status: Completed infusion; IV Intake: jb4 100ml 01:40 Drug: Demerol 12.5 mg Route: IVP; Site: right antecubital; jb4 02:20 Follow up: Response: No adverse reaction; Pain is decreased jb4 Intake: 01:30 IV: 1000ml; Total: 1000ml. jb4 03:25 IV: 100ml; Total: 1100ml. jb4 Outcome: 04:30 Discharge ordered by . rn 04:40 Discharged to home via wheelchair. jb4 04:40 Condition: stable 04:40 Discharge instructions given to patient, Instructed on discharge instructions, follow up and referral plans. medication usage, Demonstrated understanding of instructions, follow-up care, medications, Prescriptions given X 1. 04:42 Patient left the ED. jb4 Signatures: Dispatcher [employer] EDVladimir Matute MD MD rn Riggs, Erika, RN RN ed1 Marcia Maciel RN RN gloria1 Dylan Puente RN RN jb4 Brandin Figueroa, RN RN rr5 Corrections: (The following items were deleted from the chart) 02:24 00:20 GI: Abdomen is flat, jb4 jb4
--- NOTE | 2018-08-31 04:31 | EDPHYS ---
Physician Documentation [facility] Name: Dayami Espinosa Age: 48 yrs Sex: Female : 1970 Arrival Date: 08/31/2018 Time: 00:15 Bed 15 Private MD: ED Physician Vladimir Coelho HPI: 08/31 00:44 This 48 yrs old Female presents to ER via EMS with complaints of Abdominal rn Pain. 00:44 The patient presents with abdominal pain in the left lower quadrant. Onset: The rn symptoms/episode began/occurred 1 week(s) ago. The symptoms do not radiate. Modifying factors: The symptoms are alleviated by nothing, the symptoms are aggravated by touching the area. Severity of pain: At its worst the pain was mild in the emergency department the pain is unchanged. The patient has experienced similar episodes in the past. The patient has been recently seen by a physician:. Reports left lower abd pain for 1 week, assoc with nausea/vomiting for 1 week that has now improved, still having diarrhea, seen here earlier this week at beginning of symptoms, states hasn't gotten better. No blood in stool or emesis. . [employer]PER[employer]GER: 00:15 LMP 08/2018, on 3rd day of menstruation rr5 Historical: - Allergies: 00:20 No Known Allergies; rr5 - Home Meds: 00:20 Depakote 250 mg Oral TbEC 1 tab in the morning for Bipolar Disorder in Remission rr5 [Active]; Depakote 250 mg Oral TbEC 2 tabs nightly [Active]; - PMHx: 00:20 Anemia; Bipolar disorder; gastritis; Ovarian cyst; rr5 - PSHx: 00:20 brain surgery; rr5 - Immunization history:: Adult Immunizations up to date. - Social history:: Smoking status: Patient uses tobacco products, smokes one-half pack cigarettes per day, Patient uses alcohol, but reports only rare drinking. Patient/guardian denies using street drugs. - Ebola Screening: : Patient negative for fever greater than or equal to 101.5 degrees Fahrenheit, and additional compatible Ebola Virus Disease symptoms Patient denies exposure to infectious person Patient denies travel to an Ebola-affected area in the 21 days before illness onset. - Family history:: not pertinent. - Hospitalizations: : No recent hospitalization is reported. ROS: 00:44 Constitutional: Negative for fever, chills, and weight loss, Eyes: Negative for injury, rn pain, redness, and discharge, Neck: Negative for injury, pain, and swelling, Cardiovascular: Negative for chest pain, palpitations, and edema, Respiratory: Negative for shortness of breath, cough, wheezing, and pleuritic chest pain, Abdomen/GI: + abd pain and diarrhea, + nausea MS/Extremity: Negative for injury and deformity, Skin: Negative for injury, rash, and discoloration, Neuro: + generalized weakness Exam: 00:44 Constitutional: Thin female, no acute distress, has 44oz polar cup filled with soda rn Head/Face: Normocephalic, atraumatic. Eyes: Pupils equal round and reactive to light, extra-ocular motions intact. Lids and lashes normal. Conjunctiva and sclera are non-icteric and not injected. Cornea within normal limits. Periorbital areas with no swelling, redness, or edema. ENT: dry MM Cardiovascular: Regular rate and rhythm. No pulse deficits. Respiratory: Lungs have equal breath sounds bilaterally, clear to auscultation. No increased work of breathing, no retractions or nasal flaring. Abdomen/GI: soft, non-tender Skin: Warm, dry MS/ Extremity: Pulses equal, no cyanosis. Neurovascular intact. Full, normal range of motion. Equal circumference. Neuro: Awake and alert, GCS 15, oriented to person, place, time, and situation. Cranial nerves II-XII grossly intact. Motor strength 5/5 in all extremities. Sensory grossly intact. Cerebellar exam normal. Normal gait. Vital Signs: 00:15 BP 99 / 63; Pulse 91; Resp 17; Temp 99.1; Pulse Ox 100% ; Weight 48.08 kg; Height 5 ft. rr5 3 in. (160.02 cm); Pain 10/10; 01:00 BP 108 / 94; Pulse 88; Resp 16; Pulse Ox 100% on R/A; jb4 02:00 BP 104 / 64; Pulse 87; Resp 16; Pulse Ox 100% on R/A; jb4 03:18 BP 103 / 64; Pulse 86; Resp 16; Pulse Ox 100% on R/A; jb4 04:40 BP 100 / 75; Pulse 67; Resp 16; Pulse Ox 98% on R/A; jb4 00:15 Body Mass Index 18.78 (48.08 kg, 160.02 cm) rr5 MDM: 00:15 Patient medically screened. rn 04:27 Differential diagnosis: diverticulitis, non-specific abd pain, Ureterolithiasis, rn urinary tract infection, ovarian cyst. Data reviewed: vital signs, nurses notes, lab test result(s), radiologic studies, CT scan, and as a result, I will discharge patient. Counseling: I had a detailed discussion with the patient and/or guardian regarding: the historical points, exam findings, and any diagnostic results supporting the discharge/admit diagnosis, lab results, radiology results, the need for outpatient follow up, to return to the emergency department if symptoms worsen or persist or if there are any questions or concerns that arise at home. Response to treatment: the patient's symptoms have markedly improved after treatment, patient is well hydrated. sleeping comfortably, and as a result, I will discharge patient. Special discussion: Based on the patient's Hx, exam, and Dx evaluation, there is no indication for emergent surgery or inpatient Tx. It is understood by the patient/guardian that if the Sx's persist or worsen they need to return immediately for re-evaluation. I discussed with the patient/guardian in detail that at this point there is no indication for admission to the hospital. It is understood, however, that if the symptoms persist or worsen the patient needs to return immediately for re-evaluation. ED course: Most likely combination of enteritis and ruptured ovarian cyst per Dr. Hernandez's read on CT. Much improved, sleeping, will dc home, no longer vomiting, tolerating PO. . 08/31 00:16 Order name: Basic Metabolic Panel; Complete Time: 08/31 00:16 Order name: CBC with Diff; Complete Time: 08/31 00:16 Order name: Hepatic Function; Complete Time: 08/31 00:16 Order name: Lipase; Complete Time: 08/31 00:16 Order name: Urine Microscopic Only; Complete Time: 08/31 00:18 Order name: ETOH Level; Complete Time: 08/31 00:16 Order name: IV Saline Lock; Complete Time: 00:08/31 00:18 Order name: Urine Drug Screen; Complete Time: 08/31 00:20 Order name: CT Abd/Pelvis - W/Contrast rn 08/31 01:01 Order name: Urine Culture EDMO 08/31 00:16 Order name: Labs collected and sent; Complete Time: 00:54 rn 08/31 00:16 Order name: Urine Test (obtain specimen); Complete Time: 00:54 rn 08/31 00:16 Order name: Urine Dipstick-Ancillary (obtain specimen); Complete Time: 00:54 rn Administered Medications: 00:30 Drug: NS 0.9% 1000 ml Route: IV; Rate: 1000 ml; Site: right antecubital; jb4 01:30 Follow up: Response: No adverse reaction; IV Status: Completed infusion; IV Intake: jb4 1000ml 01:25 Drug: Potassium Chloride 40 mEq Route: PO; jb4 02:23 Follow up: Response: No adverse reaction jb4 01:25 Drug: Potassium Chloride 20 mEq Route: IV; Rate: calculated rate; Site: right jb4 antecubital; 03:25 Follow up: Response: No adverse reaction; IV Status: Completed infusion; IV Intake: jb4 100ml 01:40 Drug: Demerol 12.5 mg Route: IVP; Site: right antecubital; jb4 02:20 Follow up: Response: No adverse reaction; Pain is decreased jb4 Disposition: 08/31/18 04:30 Discharged to Home. Impression: Ruptured ovarian cyst, enteritis. - Condition is Stable. - Discharge Instructions: Ovarian Cyst, Viral Gastroenteritis, Adult. - Prescriptions for Diclofenac Sodium 75 mg Oral Tablet, Delayed Release (E.C.) - take 1 tablet by ORAL route 2 times per day; 20 tablet. - Medication Reconciliation Form, Thank You Letter, Antibiotic Education, Prescription Opioid Use form. - Follow up: Private Physician; When: As needed; Reason: Recheck today's complaints, Re-evaluation by your physician. - Problem is new. - Symptoms have improved. Signatures: Dispatcher [employer] [facility] Vladimir Coelho MD MD rn Bryson, James RN RN jb4 Brandin Figueroa RN RN rr5 Corrections: (The following items were deleted from the chart) 04:42 04:30 08/31/2018 04:30 Discharged to Home. Impression: Ruptured ovarian cyst; jb4 enteritis. Condition is Stable. Forms are Medication Reconciliation Form, Thank You Letter, Antibiotic Education, Prescription Opioid Use. Follow up: Private Physician; When: As needed; Reason: Recheck today's complaints, Re-evaluation by your physician. Problem is new. Symptoms have improved. rn
--- OUTSIDE RECORDS SUMMARY | 2018-08-31 12:40 | XMS REPORT | Clinical Summary ---
:1970 Author Organization [facility] Address [address] [place] [address] Care Team Providers Name Role Phone Sharpless [...] Not on file Results Not on fileafter 08/30/2017
--- OUTSIDE RECORDS SUMMARY | 2018-08-31 12:40 | XMS REPORT | Clinical Summary ---
:1970 [facility] Address [address] [place] [address] Care Team Providers Name Role Phone Asked, [...] INFLUENZA VACCINE 11/02/2018 Results Not on fileafter 08/30/2017 Advance Directives Patient has advance care planning documents on file. For more information, please contact:[facility] [place] [address]
--- OUTSIDE RECORDS SUMMARY | 2018-08-31 12:41 | XMS REPORT ---
:1970 [facility] Address [address] [place] [address] [address] [place] [address] Care Team Providers Name Role Phone UNKNOWN, REFFERING Primary Care Provider Unavailable Problems This patient has no known problems. Allergies, Adverse Reactions, Alerts This patient has no known allergies or adverse reactions. Medications This patient has no known medications. Encounters Start End Encounter Admission Attending Care Care Encounter Date/Time Date/Time Type Type Clinicians Facility Department ID 2017-07-02 2017-07-[address] [facility] MED [id number] 08:16:00 08:16:00
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
--- NOTE | 2018-08-31 14:22 | RAD REPORT ---
EXAM DESCRIPTION: CT - Abdomen Pelvis W Contrast - 08/31/2018 12:09 pm CLINICAL HISTORY: Abdominal pain. COMPARISON: August 28, 2018 TECHNIQUE: Computed axial tomography of the abdomen and pelvis was obtained. 100 cc Isovue-300 is ad ministered intravenously. Oral contrast was given. All CT scans are performed using dose optimization technique as appropriate and may include automated exposure control or mA/KV adjustment according to patient size. FINDINGS: The liver, spleen, pancreas, adrenals and kidneys appear unremarkable. A right ovarian cyst has decreased in size and is irregularly shaped. Increased density surrounds the cyst. Moderate ascites is present within the pelvis. Small amount of ascites within the abdomen Marked thickening of the wall of multiple small bowel loops. IMPRESSION: Patient most likely has a ruptured right hemorrhagic thickening of the wall of multiple small bowel loops most likely secondary to the resulting inflammation. Ovarian cyst with moderate pel delma ascites. Marked thickening of the wall of multiple small bowel loops most likely secondary to the resultant in flammation. If clinically indicated this could be monitored on subsequent examination
== END 2018-08-31 04:42 | disposition home or self-care (01) ==
LOC: ER 00:10
DX: K52.9 Noninfective gastroenteritis and colitis, unspecified (principal); N83.201 Unspecified ovarian cyst, right side; F31.70 Bipolar disorder, currently in remission, most recent episode unspecified
CPT/HCPCS: 36415; 74177; 80048; 80076; 80307; 80320; 81015; 83690; 85025; 87077; 87086; 87088; 87186; 96361; 96365; 96366; 96375; 99284; J2175; J7030; Q9967

== ENCOUNTER 2018-08-31 23:44 | Emergency (ER) | payer SELFPAY ==
--- OUTSIDE RECORDS SUMMARY | 2018-08-31 23:46 | XMS REPORT | Clinical Summary ---
:1970 Author Organization [facility] Address [address] [place] [address] Care Team Providers Name Role Phone Sharpless [...]
--- OUTSIDE RECORDS SUMMARY | 2018-08-31 23:46 | XMS REPORT | Clinical Summary ---
:1970 [facility] Address [address] [place] [address] Care Team Providers Name Role Phone Asked, [...] documents on file. For more information, please contact:[facility] [place] [address]
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
--- OUTSIDE RECORDS SUMMARY | 2018-08-31 23:48 | XMS REPORT ---
:1970 Author Organization [facility] Address [address] [place] [address] Care Team Providers Name Role Phone UNKNOWN, REFFERING Primary Care Provider Unavailable Problems This patient has no known problems. Allergies, Adverse Reactions, Alerts This patient has no known allergies or adverse reactions. Medications This patient has no known medications. Encounters Start End Encounter Admission Attending Care Care Encounter Date/Time Date/Time Type Type Clinicians Facility Department ID 2017-07-02 2017-07-02 Emergency E [facility] MED [id number] 08:16:00 08:16:00
[2018-09-01] MEDS ORDERED: DIPHENOX/ATROP SULF 1 TAB PO ONE (00:22)
[2018-09-01] MEDS ORDERED: KETOROLAC 30 MG/ML INJ ONE (00:22)
--- NOTE | 2018-09-01 02:04 | EDPHYS ---
Physician Documentation [facility] Name: Dayami Espinosa Age: 48 yrs Sex: Female : 1970 Arrival Date: 08/31/2018 Time: 23:54 Bed 24 Private MD: ED Physician Vladimir Coelho HPI: 09/01 00:11 This 48 yrs old Female presents to ER via EMS with complaints of Abdominal rn Pain. 00:11 The patient presents with abdominal pain in the left lower quadrant. Onset: The rn symptoms/episode began/occurred 1 week(s) ago. The symptoms do not radiate. Associated signs and symptoms: Pertinent positives: diarrhea, Pertinent negatives: nausea and vomiting, fever. The symptoms are described as sharp. Modifying factors: The symptoms are alleviated by nothing, the symptoms are aggravated by touching the area. Severity of pain: At its worst the pain was moderate in the emergency department the pain has improved. The patient has experienced similar episodes in the past. The patient has been recently seen by a physician: The patient has been recently seen at the [facility] Emergency Department, yesterday. I saw patient yesterday, diagnosed with viral gastroenteritis and ruptured ovarian cyst, returns because still having diarrhea, no longer vomiting, and unable to fill her pain medication for her cyst. No other acute changes. . 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 - Social history:: Smoking status: Patient uses tobacco products, smokes one-half pack cigarettes per day. - Ebola Screening: : No symptoms or risks identified at this time. - Family history:: not pertinent. - Hospitalizations: : No recent hospitalization is reported. ROS: 00:11 Constitutional: Negative for fever, chills, and weight loss, Eyes: Negative for injury, rn pain, redness, and discharge, Neck: Negative for injury, pain, and swelling, Cardiovascular: Negative for chest pain, palpitations, and edema, Respiratory: Negative for shortness of breath, cough, wheezing, and pleuritic chest pain, Abdomen/GI: Negative for nausea, vomiting,and constipation, Back: Negative for injury and pain, : Negative for injury, bleeding, discharge, and swelling, MS/Extremity: Negative for injury and deformity, Skin: Negative for injury, rash, and discoloration, Neuro: Negative for headache, weakness, numbness, tingling, and seizure. Exam: 00:11 Constitutional: Thin female, no acute distress, laying with legs crossed, appears rn comfortable, smiling. Head/Face: Normocephalic, atraumatic. Cardiovascular: Regular rate and rhythm. No pulse deficits. Respiratory: Lungs have equal breath sounds bilaterally, clear to auscultation and percussion. No increased work of breathing, no retractions or nasal flaring. Abdomen/GI: soft, mild LLQ tenderness, no rebound/peritoneal signs Skin: Warm, dry MS/ Extremity: Pulses equal, no cyanosis. Neurovascular intact. Full, normal range of motion. Equal circumference. Neuro: Awake and alert, GCS 15, oriented to person, place, time, and situation. Cranial nerves II-XII grossly intact. Motor strength 5/5 in all extremities. Sensory grossly intact. Cerebellar exam normal. Normal gait. Vital Signs: 00:01 BP 104 / 83; Pulse 78; Resp 17 S; Temp 98.6(O); Pulse Ox 100% on R/A; Weight 48.08 kg ca1 (R); Height 5 ft. 3 in. (160.02 cm); Pain 10/10; 01:05 BP 99 / 67; Pulse 64; Resp 17 S; Temp 98.2(O); Pulse Ox 100% on R/A; ca1 02:31 BP 96 / 65; Pulse 70; Resp 18; Temp 98.3; Pulse Ox 100% on R/A; Pain 0/10; mg2 00:01 Body Mass Index 18.78 (48.08 kg, 160.02 cm) ca1 MDM: 08/31 23:56 Patient medically screened. rn 09/01 02:00 Differential diagnosis: non-specific abd pain, Ovarian cyst, enteritis. Data reviewed: rn vital signs, nurses notes, old medical records, and as a result, I will discharge patient. Counseling: I had a detailed discussion with the patient and/or guardian regarding: the historical points, exam findings, and any diagnostic results supporting the discharge/admit diagnosis, the need for outpatient follow up, to return to the emergency department if symptoms worsen or persist or if there are any questions or concerns that arise at home. Response to treatment: the patient's symptoms have markedly improved after treatment, and as a result, I will discharge patient. Special discussion: Based on the patient's Hx, exam, and Dx evaluation, there is no indication for emergent surgery or inpatient Tx. It is understood by the patient/guardian that if the Sx's persist or worsen they need to return immediately for re-evaluation. I discussed with the patient/guardian in detail that at this point there is no indication for admission to the hospital. It is understood, however, that if the symptoms persist or worsen the patient needs to return immediately for re-evaluation. ED course: Sleeping comfortably, has not thrown up or used bathroom since arrival. Will dc home, recommended filling her prescription.. Administered Medications: 00:10 Drug: LoMOTIL 2 tabs Route: PO; ca1 01:05 Follow up: Response: No adverse reaction ca1 00:10 Drug: TORadol 30 mg Route: IM; Site: left deltoid; ca1 01:05 Follow up: Response: No adverse reaction; Pain is decreased ca1 Disposition: 09/01/18 02:03 Discharged to Home. Impression: Unspecified ovarian cysts, Enteritis. - Condition is Stable. - Discharge Instructions: Diarrhea, Adult, Ovarian Cyst. - Medication Reconciliation Form, Thank You Letter, Antibiotic Education, Prescription Opioid Use form. - Follow up: Clinton Longo MD; When: 2 - 3 days; Reason: Recheck today's complaints, Re-evaluation by your physician. - Problem is new. - Symptoms have improved. Signatures: Vladimir Coelho MD MD rn Gardose, Michele, RN RN mg2 Acob, Cheryl, RN RN ca1 Corrections: (The following items were deleted from the chart) 02:04 02:03 09/01/2018 02:03 Discharged to Home. Impression: Infectious gastroenteritis and rn colitis, unspecified; Unspecified cirrhosis of liver. Condition is Stable. Forms are Medication Reconciliation Form, Thank You Letter, Antibiotic Education, Prescription Opioid Use. Follow up: Clinton Longo; When: 2 - 3 days; Reason: Recheck today's complaints, Re-evaluation by your physician. Problem is new. Symptoms have improved. rn 02:32 02:04 09/01/2018 02:03 Discharged to Home. Impression: Unspecified ovarian cysts; mg2 Enteritis. Condition is Stable. Discharge Instructions: Diarrhea, Adult. Forms are Medication Reconciliation Form, Thank You Letter, Antibiotic Education, Prescription Opioid Use. Follow up: Clinton Longo; When: 2 - 3 days; Reason: Recheck today's complaints, Re-evaluation by your physician. Problem is new. Symptoms have improved. abhi
--- NOTE | 2018-09-01 02:04 | ER ---
Nurse's Notes [facility] Name: Dayami Espinosa Age: 48 yrs Sex: Female : 1970 Arrival Date: 08/31/2018 Time: 23:54 Bed 24 Private MD: Diagnosis: Unspecified ovarian cysts;Enteritis Presentation: 08/31 23:54 Presenting complaint: EMS states: pt c/o of lower abdominal pain. She's been here last ca1 night for the same thing. Transition of care: patient was not received from another setting of care. Onset of symptoms was August 31, 2018. Risk Assessment: Do you want to hurt yourself or someone else? Patient reports no desire to harm self or others. Initial Sepsis Screen: Does the patient meet any 2 criteria? No. Patient's initial sepsis screen is negative. Does the patient have a suspected source of infection? No. Patient's initial sepsis screen is negative. Care prior to arrival: None. 23:54 Method Of Arrival: EMS: [facility] ca1 23:54 Acuity: JAZMIN 3 ca1 Triage Assessment: 09/01 00:01 General: Appears in no apparent distress. comfortable, Behavior is calm, cooperative, ca1 appropriate for age. Pain: Complains of pain in abdomen Pain currently is 10 out of 10 on a pain scale. GI: Abdomen is flat, non-distended, Bowel sounds present X 4 quads. Abd is soft and non tender X 4 quads. Reports diarrhea, nausea. 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 - Social history:: Smoking status: Patient uses tobacco products, smokes one-half pack cigarettes per day. - Ebola Screening: : No symptoms or risks identified at this time. - Family history:: not pertinent. - Hospitalizations: : No recent hospitalization is reported. Screenin:10 Abuse screen: Denies threats or abuse. Denies injuries from another. Nutritional ca1 screening: No deficits noted. Tuberculosis screening: No symptoms or risk factors identified. Fall Risk None identified. Assessment: 00:10 General: Appears in no apparent distress. comfortable, Behavior is calm, cooperative, ca1 appropriate for age. Pain: Complains of pain in abdomen Pain does not radiate. Pain currently is 10 out of 10 on a pain scale. Pain began 1 day ago. Neuro: Level of Consciousness is awake, alert, obeys commands, Oriented to person, place, time, situation. Cardiovascular: Heart tones S1 S2 present Capillary refill < 3 seconds Patient's skin is warm and dry. Respiratory: Airway is patent Respiratory effort is even, unlabored, Respiratory pattern is regular, symmetrical, Breath sounds are clear bilaterally. GI: Abdomen is flat, non-distended, Bowel sounds present X 4 quads. Abd is soft and non tender X 4 quads. Reports diarrhea, nausea. : No deficits noted. No signs and/or symptoms were reported regarding the genitourinary system. EENT: No deficits noted. No signs and/or symptoms were reported regarding the EENT system. Derm: Skin is intact, is healthy with good turgor, Skin is pink, warm \T\ dry. Musculoskeletal: Circulation, motion, and sensation intact. Capillary refill < 3 seconds. 01:03 Reassessment: Patient appears in no apparent distress at this time. Pt eyes closed. ca1 Opens to verbal stimuli. Equal and unlabored breathing. Skin pink, warm and dry. 02:31 Reassessment: Patient appears in no apparent distress at this time. Patient states mg2 feeling better. Patient states symptoms have improved. Vital Signs: 00:01 BP 104 / 83; Pulse 78; Resp 17 S; Temp 98.6(O); Pulse Ox 100% on R/A; Weight 48.08 kg ca1 (R); Height 5 ft. 3 in. (160.02 cm); Pain 10/10; 01:05 BP 99 / 67; Pulse 64; Resp 17 S; Temp 98.2(O); Pulse Ox 100% on R/A; ca1 02:31 BP 96 / 65; Pulse 70; Resp 18; Temp 98.3; Pulse Ox 100% on R/A; Pain 0/10; mg2 00:01 Body Mass Index 18.78 (48.08 kg, 160.02 cm) ca1 ED Course: 08/31 23:54 Patient arrived in ED. ca1 23:56 Triage completed. ca1 23:56 Vladimir Coelho MD is Attending Physician. rn 09/01 00:01 Arm band placed on right wrist. ca1 00:10 Patient has correct armband on for positive identification. Placed in gown. Bed in low ca1 position. Call light in reach. Side rails up X 1. Pulse ox on. NIBP on. Warm blanket given. 00:10 No provider procedures requiring assistance completed. Patient did not have IV access ca1 during this emergency room visit. 00:37 Verito Case, RN is Primary Nurse. ca1 02:01 Clinton Longo MD is Referral Physician. rn Administered Medications: 00:10 Drug: LoMOTIL 2 tabs Route: PO; ca1 01:05 Follow up: Response: No adverse reaction ca1 00:10 Drug: TORadol 30 mg Route: IM; Site: left deltoid; ca1 01:05 Follow up: Response: No adverse reaction; Pain is decreased ca1 Outcome: 02:03 Discharge ordered by . rn 02:32 Discharged to home via wheelchair. mg2 02:32 Condition: stable 02:32 Discharge instructions given to patient, Instructed on discharge instructions, follow up and referral plans. Demonstrated understanding of instructions, follow-up care. 02:32 Patient left the ED. mg2 Signatures: Vladimir Coelho MD MD rn Gardose, Michele, RN RN mg2 Verito Case RN RN ca1
== END 2018-09-01 02:32 | disposition home or self-care (01) ==
LOC: ER 23:44
DX: N83.209 Unspecified ovarian cyst, unspecified side (principal); K52.9 Noninfective gastroenteritis and colitis, unspecified; F17.210 Nicotine dependence, cigarettes, uncomplicated; F31.70 Bipolar disorder, currently in remission, most recent episode unspecified
CPT/HCPCS: 96372; 99284

== ENCOUNTER 2018-09-02 07:29 | Inpatient (IN) | payer SELFPAY ==
--- OUTSIDE RECORDS SUMMARY | 2018-09-02 07:31 | XMS REPORT | Clinical Summary ---
:1970 Author Organization [facility] Address [address] [place] [address] Care Team Providers Name Role Phone Sharpless [...] Not on file Results Not on fileafter 09/01/2017
--- OUTSIDE RECORDS SUMMARY | 2018-09-02 07:31 | XMS REPORT | Clinical Summary ---
:1970 [facility] [address] [place] [address] Care Team Providers Name Role Phone Asked, [...] INFLUENZA VACCINE 11/02/2018 Results Not on fileafter 09/01/2017 Advance Directives Patient has advance care planning documents on file. For more information, please contact:[facility] [place] [address]
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
--- OUTSIDE RECORDS SUMMARY | 2018-09-02 07:34 | XMS REPORT ---
:1970 [facility] [address] [place] [address] Care Team Providers Name Role Phone UNKNOWN, REFFERING Primary Care Provider Unavailable Problems This patient has no known problems. Allergies, Adverse Reactions, Alerts This patient has no known allergies or adverse reactions. Medications This patient has no known medications. Encounters Start End Encounter Admission Attending Care Care Encounter Date/Time Date/Time Type Type Clinicians Facility Department ID 2017-07-02 2017-07-02 Emergency [facility] [id number] 08:16:00 08:16:00
[2018-09-02 08:21] LABS: Absolute Lymphocytes (CBC) 1.2 K/uL (0.7-4.9); Absolute Monocytes 0.6 K/uL (0.1-1.3); Absolute Neutrophil 2.2 K/uL (1.8-8.0); Basophils % 0.7 % (0-1.3); Eosinophils % 2.2 % (0-4.4); Hematocrit 30.2 % (36.0-45.0); Lymphocytes % 29.4 % (15.3-44.8); MPV 8.1 fL (7.6-11.3); Monocytes % 14.7 % (3.3-12.3); RBC Red Blood Cell Count 3.71 M/uL (3.86-4.86)
[2018-09-02 08:39] LABS: ALT/SGPT 16 U/L (12-78); AST/SGOT 11 U/L (15-37); Albumin 3.2 g/dL (3.4-5.0); Alkaline Phosphatase 47 U/L (45-117); BUN Blood Urea Nitrogen 6 mg/dL (7-18); Bicarbonate 28 mmol/L (21-32); Bilirubin Direct 0.2 mg/dL (0-0.2); Bilirubin Total 0.5 mg/dL (0.2-1.0); Glucose Level 98 mg/dL (74-106); Lipase 68 U/L (73-393); Potassium 3.3 mmol/L (3.5-5.1); Protein, Total 6.3 g/dL (6.4-8.2); Sodium Level 141 mmol/L (136-145)
--- NOTE | 2018-09-02 08:47 | RAD REPORT ---
EXAM DESCRIPTION: CTAbdomen Pelvis W Contrast - 09/02/2018 8:38 am CLINICAL HISTORY: Abdominal pain. ABD PAIN COMPARISON: Ct Stroke Brain Wo Cont dated 09/01/2018; Head Brain Wo Cont dated 08/26/2017Abdomen Pel vis W Contrast dated 08/31/2018; Abdomen Pelvis W Contrast dated 08/28/2017; Abdomen Pelvis W Contr ast dated 08/05/2017; Abdomen Pelvis W Contrast dated 12/06/2016 TECHNIQUE: Biphasic CT imaging of the abdomen and pelvis was performed with 100 ml non-ionic IV cont rast. All CT scans are performed using dose optimization technique as appropriate and may include automated exposure control or mA/KV adjustment according to patient size. FINDINGS: The lung bases are clear. The liver, spleen, pancreas, adrenal glands and kidneys are within normal limits. Multiple dilated and thickened small bowel loops are present throughout the abdomen. Mild ascites is present. Findings appear progressive since 08/31/2018 study. No intra-abdominal abscess. No evidenc e of significant lymphadenopathy. No suspicious bony findings. IMPRESSION: Significant inflammation, wall thickening and distention of fluid-filled small bowel lik jesús represents severe inflammation/ infection. Findings appear progressive since the 08/31/2018 study . No evidence of small bowel pneumatosis. Mild ascites.
[2018-09-02] MEDS ORDERED: POTASSIUM 25 MEQ EFFERV TAB ONE (09:07)
[2018-09-02] MEDS ORDERED: POTASSIUM CL SA 10 MEQ TAB PO ONE (09:14)
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
--- NOTE | 2018-09-02 10:50 | ER ---
Nurse's Notes [facility] Name: Dayami Espinosa Age: 48 yrs Sex: Female : 1970 Arrival Date: 09/02/2018 Time: 07:37 Bed 19 Private MD: Diagnosis: Abdominal and pelvic pain Presentation: 09/02 07:37 Method Of Arrival: EMS: [place] [id number] 07:37 Presenting complaint: EMS states: Pt. is A \T\ O x 4, called for abdominal pain 01/11, rb1 picked up outside of [facility]. pt. has been here a couple times recently for the same complaint. BS 86, BP 102/68, P 88, 96% RA. Pt. takes Depakote 750 mg for Bipolar. 07:37 Method Of Arrival: EMS: [place] [id number] 07:37 Method Of Arrival: EMS: [place] [id number] 07:37 Transition of care: patient was not received from another setting of care. Onset of rb1 symptoms is unknown. Risk Assessment: Do you want to hurt yourself or someone else? Patient reports no desire to harm self or others. Initial Sepsis Screen: Does the patient meet any 2 criteria? No. Patient's initial sepsis screen is negative. Does the patient have a suspected source of infection? No. Patient's initial sepsis screen is negative. Care prior to arrival: None. 07:37 Acuity: JAZMIN 3 rb1 Triage Assessment: 07:37 General: Appears in no apparent distress. comfortable, slender, Behavior is calm, rb1 cooperative. Pain: Complains of pain in abdomen Pain currently is 10 out of 10 on a pain scale. Neuro: Level of Consciousness is awake, alert, obeys commands, Oriented to person, place, time, situation. Cardiovascular: Capillary refill < 3 seconds is brisk in bilateral fingers. Respiratory: Airway is patent Respiratory effort is even, unlabored, Respiratory pattern is regular, symmetrical. GI: Reports diarrhea, nausea. : No signs and/or symptoms were reported regarding the genitourinary system. Derm: Skin is pink, warm \T\ dry. 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 - Social history:: Smoking status: . - Ebola Screening: : Patient negative for fever greater than or equal to 101.5 degrees Fahrenheit, and additional compatible Ebola Virus Disease symptoms. Screenin:37 Abuse screen: Denies threats or abuse. Nutritional screening: No deficits noted. rb1 Tuberculosis screening: No symptoms or risk factors identified. Fall Risk None identified. Assessment: 07:37 General: See triage assessment. rb1 07:37 GI: Bowel sounds present X 4 quads. Abd is soft. rb1 09:21 Reassessment: Patient appears in no apparent distress at this time. Patient and/or em family updated on plan of care and expected duration. Pain level reassessed. Patient is alert, oriented x 3, equal unlabored respirations, skin warm/dry/pink. 10:10 Reassessment: Dr. Santana at bedside. em 11:10 Reassessment: Patient appears in no apparent distress at this time. Patient and/or em family updated on plan of care and expected duration. Pain level reassessed. Patient is alert, oriented x 3, equal unlabored respirations, skin warm/dry/pink. rates pain 8/10, resting comfortably with eyes closed, lights turned off for comfort. 11:22 Reassessment: nurse currently unavailable for report, charge nurse notified. em Vital Signs: 07:40 BP 102 / 69; Pulse 78; Resp 16; Temp 98.3; Pulse Ox 100% on R/A; Weight 47.63 kg; mh5 Height 5 ft. 3 in. (160.02 cm); Pain 10/10; 08:30 BP 97 / 64; Pulse 73; Resp 16; Temp 98.0; Pulse Ox 100% ; mh5 09:33 BP 99 / 63; Pulse 72; Resp 18; Pulse Ox 98% on R/A; em 10:45 BP 101 / 73; Pulse 67; Resp 16; Temp 98.2(O); Pulse Ox 98% on R/A; mh5 11:08 BP 97 / 67; Pulse 68; Resp 17; Temp 98.3(O); Pulse Ox 98% on R/A; Pain 8/10; mh5 07:40 Body Mass Index 18.60 (47.63 kg, 160.02 cm) [facility] ED Course: 07:37 Patient arrived in ED. rb1 07:37 Amy Hartmann FNP is PHCP. nh 07:37 Jaylen Otto MD is Attending Physician. nh 07:37 Arm band placed on right wrist. rb1 07:39 Patient has correct armband on for positive identification. Bed in low position. Call [facility] light in reach. Side rails up X2. Warm blanket given. Pulse ox on. NIBP on. 07:45 Triage completed. rb1 08:05 Jenni Patino, RN is Primary Nurse. rb1 08:12 Initial lab(s) drawn, by me, sent to lab. Inserted saline lock: 22 gauge in left [facility] antecubital area, using aseptic technique. Blood collected. 08:13 Basic Metabolic Panel Sent. 5 08:13 CBC with Diff Sent. 5 08:13 Creatinine for Radiology Sent. 5 08:13 Hepatic Function Sent. [facility] 08:13 Lipase Sent. [facility] 08:38 CT completed. Patient tolerated procedure well. Patient moved to CT. Patient moved back mw3 from CT. 08:38 CT Abd/Pelvis - W/Contrast In Process Unspecified. EDMS 09:00 Report given to SALAS Remy. rb1 10:49 Narinder Santana DO is Hospitalizing Provider. de 12:18 No provider procedures requiring assistance completed. Patient admitted, IV remains in em place. Administered Medications: 09:01 Not Given (Patient Refused): Klor-Con Effervescent Tablet 50 mEq PO once; dissolve in 4 rb1 ounces of water or juice 09:01 Drug: Potassium Chloride 40 mEq Route: PO; rb1 09:21 Follow up: Response: No adverse reaction em Outcome: 10:50 Decision to Hospitalize by Provider. nh 12:18 Admitted to Med/surg accompanied by tech, via wheelchair, room 422, with chart, Report em called to BENI Paz 12:18 Condition: good 12:18 Instructed on the need for admit, Demonstrated understanding of instructions. 12:32 Patient left the ED. em Signatures: Dispatcher [employer] [facility] Amy Hartmann FNP TELEGRAPHIC INSTRUMENT SUPERVISOR de Jonel Carlton, QUALITY ASSURANCE ANALYST QUALITY ASSURANCE ANALYST Jenni Porter, RN RN rb1 Mica Colby 5 Christine Sepulveda 3 Corrections: (The following items were deleted from the chart) 07:45 07:37 Presenting complaint: rb1 rb1 11:10 11:08 Temp 98.3F Oral; [place] [id number]
--- NOTE | 2018-09-02 10:51 | EDPHYS ---
Physician Documentation [facility] Name: Dayami Espinosa Age: 48 yrs Sex: Female : 1970 Arrival Date: 09/02/2018 Time: 07:37 Bed 19 Private MD: ED Physician Jaylen Otto HPI: 09/02 10:46 This 48 yrs old Female presents to ER via EMS with complaints of Abdominal nh Pain. 10:46 The patient presents with abdominal pain that is diffuse. Onset: The symptoms/episode nh began/occurred 2 week(s) ago. The symptoms do not radiate. Associated signs and symptoms: Pertinent positives: nausea and vomiting. The symptoms are described as crampy, dull. Severity of pain: At its worst the pain was moderate just prior to arrival, in the emergency department the pain is unchanged. The patient has not experienced similar symptoms in the past. The patient has not recently seen a physician. 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 - Social history:: Smoking status: . - Ebola Screening: : Patient negative for fever greater than or equal to 101.5 degrees Fahrenheit, and additional compatible Ebola Virus Disease symptoms. ROS: 10:46 Constitutional: Negative for fever, chills, and weight loss, Eyes: Negative for injury, nh pain, redness, and discharge, ENT: Negative for injury, pain, and discharge, Neck: Negative for injury, pain, and swelling, Cardiovascular: Negative for chest pain, palpitations, and edema, Respiratory: Negative for shortness of breath, cough, wheezing, and pleuritic chest pain, Back: Negative for injury and pain, : Negative for injury, bleeding, discharge, and swelling, MS/Extremity: Negative for injury and deformity, Skin: Negative for injury, rash, and discoloration, Neuro: Negative for headache, weakness, numbness, tingling, and seizure, Psych: Negative for depression, anxiety, suicide ideation, homicidal ideation, and hallucinations, Allergy/Immunology: Negative for hives, rash, and allergies, Endocrine: Negative for neck swelling, polydipsia, polyuria, polyphagia, and marked weight changes, Hematologic/Lymphatic: Negative for swollen nodes, abnormal bleeding, and unusual bruising. 10:46 Abdomen/GI: Positive for abdominal pain, nausea and vomiting. Exam: 10:46 Constitutional: This is a well developed, well nourished patient who is awake, alert, nh and in no acute distress. Head/Face: Normocephalic, atraumatic. Eyes: Pupils equal round and reactive to light, extra-ocular motions intact. Lids and lashes normal. Conjunctiva and sclera are non-icteric and not injected. Cornea within normal limits. Periorbital areas with no swelling, redness, or edema. ENT: Nares patent. No nasal discharge, no septal abnormalities noted. Tympanic membranes are normal and external auditory canals are clear. Oropharynx with no redness, swelling, or masses, exudates, or evidence of obstruction, uvula midline. Mucous membranes moist. Neck: Trachea midline, no thyromegaly or masses palpated, and no cervical lymphadenopathy. Supple, full range of motion without nuchal rigidity, or vertebral point tenderness. No Meningismus. Chest/axilla: Normal chest wall appearance and motion. Nontender with no deformity. No lesions are appreciated. Cardiovascular: Regular rate and rhythm with a normal S1 and S2. No gallops, murmurs, or rubs. Normal PMI, no JVD. No pulse deficits. Respiratory: Lungs have equal breath sounds bilaterally, clear to auscultation and percussion. No rales, rhonchi or wheezes noted. No increased work of breathing, no retractions or nasal flaring. Back: No spinal tenderness. No costovertebral tenderness. Full range of motion. Skin: Warm, dry with normal turgor. Normal color with no rashes, no lesions, and no evidence of cellulitis. MS/ Extremity: Pulses equal, no cyanosis. Neurovascular intact. Full, normal range of motion. Neuro: Awake and alert, GCS 15, oriented to person, place, time, and situation. Cranial nerves II-XII grossly intact. Motor strength 5/5 in all extremities. Sensory grossly intact. Cerebellar exam normal. Normal gait. Psych: Awake, alert, with orientation to person, place and time. Behavior, mood, and affect are within normal limits. 10:46 Abdomen/GI: Inspection: abdomen appears normal, Bowel sounds: normal, Palpation: mild abdominal tenderness, in all quadrants. Vital Signs: 07:40 BP 102 / 69; Pulse 78; Resp 16; Temp 98.3; Pulse Ox 100% on R/A; Weight 47.63 kg; mh5 Height 5 ft. 3 in. (160.02 cm); Pain 10/10; 08:30 BP 97 / 64; Pulse 73; Resp 16; Temp 98.0; Pulse Ox 100% ; mh5 09:33 BP 99 / 63; Pulse 72; Resp 18; Pulse Ox 98% on R/A; em 10:45 BP 101 / 73; Pulse 67; Resp 16; Temp 98.2(O); Pulse Ox 98% on R/A; mh5 11:08 BP 97 / 67; Pulse 68; Resp 17; Temp 98.3(O); Pulse Ox 98% on R/A; Pain 8/10; mh5 07:40 Body Mass Index 18.60 (47.63 kg, 160.02 cm) 5 MDM: 07:37 Patient medically screened. nh 10:46 Data reviewed: vital signs, nurses notes, lab test result(s), radiologic studies, and nh as a result, I will admit patient. Counseling: I had a detailed discussion with the patient and/or guardian regarding: the historical points, exam findings, and any diagnostic results supporting the discharge/admit diagnosis, lab results, radiology results, the need for outpatient follow up, to return to the emergency department if symptoms worsen or persist or if there are any questions or concerns that arise at home. 09/02 07:47 Order name: Basic Metabolic Panel; Complete Time: 08:40 md 09/02 07:47 Order name: CBC with Diff md 09/02 07:47 Order name: Creatinine for Radiology; Complete Time: 08:40 md 09/02 07:47 Order name: Hepatic Function; Complete Time: 08:40 nh 09/02 07:47 Order name: Lipase; Complete Time: 08:40 md 09/02 08:28 Order name: CBC Smear Scan EDMS 09/02 07:47 Order name: IV Saline Lock; Complete Time: 08:13 md 09/02 07:47 Order name: Labs collected and sent; Complete Time: 08:13 md 09/02 07:47 Order name: CT Abd/Pelvis - W/Contrast; Complete Time: 08:48 md 09/02 10:02 Order name: Depakote; Complete Time: 11:11 md Administered Medications: 09:01 Not Given (Patient Refused): Klor-Con Effervescent Tablet 50 mEq PO once; dissolve in 4 rb1 ounces of water or juice 09: Drug: Potassium Chloride 40 mEq Route: PO; rb1 09:21 Follow up: Response: No adverse reaction em Disposition: 09/02/18 10:50 Hospitalization ordered by Narinder Santana for Inpatient Admission. Preliminary diagnosis is Abdominal and pelvic pain. - Bed requested for Telemetry/MedSurg (Inpatient). - Status is Inpatient Admission. em - Condition is Stable. - Problem is new. - Symptoms are unchanged. UTI on Admission? No Addendum: 09/04/2018 06:34 Co-signature as Attending Physician, Jaylen Otto MD I agree with the assessment and k dr plan of care. Signatures: Dispatcher [employer] [facility] Jaylen Otto MD MD [facility] Amy Hartmann, INSPECTOR WREATH INSPECTOR WREATH md Jonel Carlton, SALT WASHER SALT WASHER em Darrell Bardales PA PA cp Barber, Rebecca, RN RN rb1 Donna Pang Corrections: (The following items were deleted from the chart) 09/02 10:53 10:50 Hospitalization Ordered by Narinder Santana DO for Inpatient Admission. Preliminary eb diagnosis is Abdominal and pelvic pain. Bed requested for Telemetry/MedSurg (Inpatient). Status is Inpatient Admission. Condition is Stable. Problem is new. Symptoms are unchanged. UTI on Admission? No. md 12:32 10:53 09/02/2018 10:50 Hospitalization Ordered by Narinder Santana DO for Inpatient em Admission. Preliminary diagnosis is Abdominal and pelvic pain. Bed requested for Telemetry/MedSurg (Inpatient). Status is Inpatient Admission. Condition is Stable. Problem is new. Symptoms are unchanged. UTI on Admission? No. eb
[2018-09-02] MEDS ORDERED: LORazepam 2 MG/ML VIAL IV PRN (12:34)
[2018-09-02] MEDS ORDERED: SODIUM CHLORIDE 0.9% 10ML INJ IV PRN (12:34)
[2018-09-02] MEDS ORDERED: MORPHINE 2 MG/ML SYR IV PRN (12:34)
[2018-09-02] MEDS ORDERED: ACETAMINOPHEN 650MG/RECT SUPP PR PRN (12:34)
[2018-09-02] MEDS ORDERED: ONDANSETRON 4 MG/2 ML VIAL IV PRN (12:34)
[2018-09-02] MEDS ORDERED: NA CHLORIDE 0.9% 1,000 ML IV SCH (12:34)
[2018-09-02] MEDS ORDERED: IPRATROPIUM BROM 0.5MG/2.5ML NEB PRN (12:34)
[2018-09-02] MEDS ORDERED: ACETAMINOPHEN 500 MG TAB PO PRN (12:34)
[2018-09-02 12:42] LABS: Anisocytosis 2+; Blood Morphology Comment NOTED (NOT SEEN); Platelet Estimate ADEQ; Urine White Blood Cell Casts OK
[2018-09-02] MEDS ORDERED: CIPROFLOXACIN 400mg IV 400 MG/200 ML BAG IV SCH (13:00)
[2018-09-02] MEDS: METRONIDAZOLE 500mg IVPB 500 MG/100 ML BAG IV SCH ×2 (13:17→17:13)
[2018-09-02 14:23] LABS: Ferritin 14.4 ng/mL (8-388); Thyroid Stimulating Hormone 0.952 uIU/mL (0.360-3.740); Transferrin 281 mg/dL (200-360)
[2018-09-02] MEDS ORDERED: ENOXAPARIN 40 MG/0.4 ML SQ SCH (17:00)
[2018-09-02 17:20] LABS: Urine Appearance CLEAR; Urine Bilirubin NEGATIVE (NEG); Urine Blood NEGATIVE (NEG); Urine Color YELLOW; Urine Glucose NEGATIVE (NEG); Urine Protein NEGATIVE (NEG); Urine pH 7.5 (5.0-7.0)
[2018-09-02 17:27] LABS: Barbiturates NEGATIVE (NEGATIVE); Benzodiazepines NEGATIVE (NEGATIVE); Cocaine NEGATIVE (NEGATIVE); METHAMPHETAM NEGATIVE (NEGATIVE); Methadone NEGATIVE (NEGATIVE); Opiates NEGATIVE (NEGATIVE); Phencyclidine NEGATIVE (NEGATIVE); THC Cannibis NEGATIVE (NEGATIVE)
--- NOTE | 2018-09-02 17:34 | P.DS ---
Admission Date: 09/02/18 Discharge Date: 09/02/18 Primary Care Provider: None Disposition: TRANSFER TO [facility] Discharge Condition: GOOD Reason for Admission: Abdominal pain Consultations: Surgery-Dr. Colby Procedures: CT Scan 09/01/2018: COMPARISON: August 28, 2018 TECHNIQUE: Computed axial tomography of the abdomen and pelvis was obtained. 100 cc Isovue-300 is administered intravenously. Oral contrast was given. All CT scans are performed using dose optimization technique as appropriate and may include automated exposure control or mA/KV adjustment according to patient size. FINDINGS: The liver, spleen, pancreas, adrenals and kidneys appear unremarkable. A right ovarian cyst has decreased in size and is irregularly shaped. Increased density surrounds the cyst. Moderate ascites is present within the pelvis. Small amount of ascites within the abdomen Marked thickening of the wall of multiple small bowel loops. IMPRESSION: Patient most likely has a ruptured right hemorrhagic thickening of the wall of multiple small bowel loops most likely secondary to the resulting inflammation. Ovarian cyst with moderate pelvic ascites. Marked thickening of the wall of multiple small bowel loops most likely secondary to the resultant inflammation. If clinically indicated this could be monitored on subsequent examination CT scan 09/02/2018: COMPARISON: Ct Stroke Brain Wo Cont dated 09/01/2018; Head Brain Wo Cont dated Abdomen Pelvis W Contrast dated 08/31/2018; Abdomen Pelvis W Contrast dated 08/28/2017; Abdomen Pelvis W Contrast dated 08/05/2017; Abdomen Pelvis W Contrast dated 12/06/2016 TECHNIQUE: Biphasic CT imaging of the abdomen and pelvis was performed with 100 ml non-ionic IV contrast. All CT scans are performed using dose optimization technique as appropriate and may include automated exposure control or mA/KV adjustment according to patient size. FINDINGS: The lung bases are clear. The liver, spleen, pancreas, adrenal glands and kidneys are within normal limits. Multiple dilated and thickened small bowel loops are present throughout the abdomen. Mild ascites is present. Findings appear progressive since 08/31/2018 study. No intra-abdominal abscess. No evidence of significant lymphadenopathy. No suspicious bony findings. IMPRESSION: Significant inflammation, wall thickening and distention of fluid- filled small bowel likely represents severe inflammation/ infection. Findings appear progressive since the 08/31/2018 study. No evidence of small bowel pneumatosis. Mild ascites. Medical Problem List: Abdominal pain, nausea and vomiting secondary to recurrent enteritis with CT scan showing significant inflammation, wall thickening and distended fluid- filled small bowel loops progressive since 08/31/2018 Dehydration with hypokalemia Anemia likely of chronic disease Tobacco and alcohol abuse Bipolar disorder Suspect underlying GERD Suspect underlying COPD Brief History of Present Illness: 48-year-old female presented to the emergency room with abdominal pain , nausea. Patient is a poor historian. Most information came from the ER physician. ER reports patient has been seen multiple times in the ER for abdominal pain. She has not been recently hospitalized. Patient reports abdominal pain mainly to the lower quadrant for the past week. This has been getting worse. It is associated with some nausea. She has had poor oral intake. She denies any rectal bleeding, BM or bloody vomitus. Patient with history of tobacco and alcohol use. Patient came to the ER for further evaluation. In the ER patient appeared disheveled and cachectic. White count 4.1, hemoglobin 10. Sodium 141, potassium 3.3, BUN of 6, creatinine 0.5 with a GFR of 90. Glucose 98. Calcium 8.1. LFTs unremarkable. Lipase unremarkable. CT scan shows significant inflammation with wall thickening to the distal small bowel. Severe inflammation versus infection likely. Patient was given pain medication and antibiotics in the emergency room. I was asked to admit the patient. When I saw the patient ER, pain appears controlled with medication. As mentioned above patient is a poor historian. She was not able to give any significant history. She has not seen GI in the past. Hospital Course: Patient presented with abdominal pain, nausea and vomiting. Patient had been seen recently in the ER multiple times. Patient found to have significant inflammation, wall thickening and distended fluid-filled small bowel loops progressive since 08/31/2018. Patient was admitted for IV antibiotics and fluids. Further evaluation was done. Surgery was consulted to further evaluate. Surgery reviewed CT scan. Surgery concerned for inflammatory versus infectious process. Due to the severity of change in CT scan and no GI availability, patient was transferred to [facility] center for GI evaluation and further treatment. Case discussed with hospitalist. Patient accepted along with GI. Patient currently NPO at this time. Patient with underlying bipolar disorder. Patient likely non compliant. Patient likely in acute manic phase at this time. Stable otherwise. Patient with history of tobacco and alcohol abuse. This can be further evaluated. Urine drug screen and alcohol level was ordered. Patient likely with underlying GERD. This can be further address at a tertiary care center. Patient likely with underlying COPD. This can be further treated. Vital Signs/Physical Exam: Temp Pulse Resp BP Pulse Ox 97.9 F 67 18 119/68 100 09/02/18 16:34 09/02/18 16:34 09/02/18 16:34 09/02/18 16:34 09/02/18 16:34 General: Alert, In no apparent distress, Other (Very anxious.) HEENT: Atraumatic, Other (Poor dentition) Neck: Supple Respiratory: Clear to auscultation bilaterally, Normal air movement Cardiovascular: Normal pulses, Regular rate/rhythm Gastrointestinal: Other (Decreased bowel sounds. Pain to the upper quadrant. No distention noted. Abdomen soft.) Neurological: Normal speech, Normal strength at 5/5 x4 extr, Normal tone, Normal affect Laboratory Data at Discharge: WBC 4.1 K/uL (4.3-10.9) L D 09/02/18 08:11 Hgb 10.0 g/dL (12.0-15.0) L 09/02/18 08:11 Hct 30.2 % (36.0-45.0) L 09/02/18 08:11 Plt Count 358 K/uL (152-406) 09/02/18 08:11 Sodium 141 mmol/L (136-145) 09/02/18 08:11 Potassium 3.3 mmol/L (3.5-5.1) L 09/02/18 08:11 BUN 6 mg/dL (7-18) L 09/02/18 08:11 Creatinine 0.57 mg/dL (0.55-1.3) 09/02/18 08:11 Glucose 98 mg/dL (74-106) 09/02/18 08:11 Total Bilirubin 0.5 mg/dL (0.2-1.0) 09/02/18 08:11 AST 11 U/L (15-37) L 09/02/18 08:11 ALT 16 U/L (12-78) 09/02/18 08:11 Alkaline Phosphatase 47 U/L (45-117) 09/02/18 08:11 Lipase 68 U/L (73-393) L 09/02/18 08:11 Home Medications: Divalproex ER [Depakote *ER*] 250 mg PO BREAKFAST 09/02/18 Divalproex ER [Depakote *ER*] 500 mg PO BEDTIME 09/02/18 Patient Discharge Instructions: 1. Patient to be transferred to [facility] in [place] to further address her GI/Abdominal condition. Diet: NPO Activity: Bedrest Time spent managing pt's care (in minutes): 55
[2018-09-02 17:54] LABS: Urine Microscopic Reflex ORDER UMIC
[2018-09-02 18:06] LABS: Urine Bacteria <20 /HPF (<20); Urine Culture Reflex Order REFLEXED; Urine RBC <5 /HPF (NONE SEEN)
--- NOTE | 2018-09-02 19:51 | CON ---
Date of Consultation: 09/02/2018 Reason For Service: Severe enteritis. History Of Present Illness: This is the case of a 48-year-old patient, who [facility] with severe enteritis. She comes with abdominal pain. Apparently she was seen also several days ago in the hospital, diagnosed with enteritis, but she left the institution. Information on this lad y is very difficult. She has a history of bipolar disorder and when she was asked any questions she answers something else, so it is difficult for me to understand any recent travelling out of the [facility] try. I am not sure if she is homeless, and we trying to investigate that and also trying to investig ate any possible cause of this disease. Looking through the chart, which is I have to do and also di scussed with the primary doctor, we noticed the patient has a history of severe enteritis in last sev eral months too, and even last year based on imaging seen, but apparently she has not seen or looked for any medical attention. At this moment on the bedside she is threatening to leave AMA because she wants to smoke, and she has been noncompliant with treatment. Allergies: AMOXICILLIN, SUDAFED. Social History: She smokes. She drinks alcohol, unknown quantity. Family History: Unknown. Review of Systems: This is unable to be obtained. Every time we asked her question, she deviated to another answer, and talked about locations and some other deal that she has in the past and stories that are not related to the question she is asked. Physical Examination: General: The patient is awake and alert. She seems oriented, although once again, she does not answ er the questions well. HEENT: Pupils are anicteric. She is missing most of her teeth. Neck: Supple. Abdomen: Soft and depressible. Softly distended. No rebound tenderness, but also recently she rece ived some pain medication, so it is hard for me to tell. Pelvic, rectal, breasts: Deferred. Extremity: Good capillary refill. Laboratory Studies: WBC count of 4.1, hemoglobin of 10. Potassium 3.3. Creatinine is 0.57. Urine toxicology is still pending. CAT scan of abdomen and pelvis, we have different CAT scans, we have th e CT scan from 48 hours ago and today, show significant inflammation, wall thickening, and distention , a fluid-filled small bowel likely representing severe inflammation. Infection cannot be ruled out. There is no evidence of pneumatosis, but I also noticed that on 08/31 about 2 days ago, the radiolog ist described it as severe inflammation by Dr. Tyler with what he described as a ruptured right hem orrhagic thickening of the wall of multiple small bowel loops that he claims secondary to inflammatio n and that is one I discussed with the primary doctor that those findings are not usual findings. Th is patient had this before, normally those require surgery, although that was 2 days ago, and right n ow, she claims she feels better. The CAT scan today does not have those findings. This is just the small bowel with severe thickening here a few days ago and even several months ago. This patient may be having not only infection but also autoimmune disease in the form of inflammatory bowel disease o r even Crohn disease. I believe this may even need the expertise of a associate genetics professor. I explain ed to the primary doctor the need of a associate genetics professor in this case. If the hospital cannot provi de that at this moment, then they have to look for that kind of a help. From the surgical standpoint and exploratory laparotomy, this patient may require extensive bowel resection. That could be done, but I believe a associate genetics professor should evaluate this patient first unless she really prefers to w ait. So once again, I explained to the patient, the need of a gastroenterological evaluation and exp ertise. I explained to her the options of laparotomy possible resection, possible ostomy that she sa id definitely no at this time. In that case, it is also hard to sit and just watch her not improving so once again, I encouraged the hospital and the primary doctor to get this patient to an [facility] n where they have a associate genetics professor or get a associate genetics professor here to evaluate to see if this is inflammatory bowel disease, and any solution for that. Anyway, we going to be following the patient with the you. PEMA/CA Voice ID: [id number] Report ID: [id number]
[2018-09-02] MEDS ORDERED: ARFORMOTEROL TARTRATE 15 MCG/2 ML VIAL.NEB NEB SCH (20:00)
[2018-09-02] MEDS ORDERED: PANTOPRAZOLE 40 MG INJ IVP SCH (21:00)
[2018-09-03] MEDS ORDERED: NICOTINE 21 MG/PAT TD SCH (09:00)
[2018-09-06 15:02] LABS: HIV AG/AB 4TH GEN Non-reactive (Non-reactive)
[2018-09-06 18:19] LABS: HBsAG Nonreactive (Nonreactive); Hepatitis A IgM Antibody Nonreactive
== END 2018-09-02 19:30 | disposition short-term general hospital (02) | DRG 392 ==
LOC: ER 07:29 → ERHOLD 10:15 → 4TH 12:15
PROVIDERS: ADMIT Family Medicine; ATTEND Family Medicine
DX: K52.9 Noninfective gastroenteritis and colitis, unspecified (principal); R64 Cachexia; Z68.1 Body mass index [BMI] 19.9 or less, adult; E86.0 Dehydration; D64.9 Anemia, unspecified; F10.10 Alcohol abuse, uncomplicated; E87.6 Hypokalemia; K21.9 Gastro-esophageal reflux disease without esophagitis; J44.9 Chronic obstructive pulmonary disease, unspecified; F31.9 Bipolar disorder, unspecified; F17.210 Nicotine dependence, cigarettes, uncomplicated; Z88.0 Allergy status to penicillin
CPT/HCPCS: 36415; 74177; 80048; 80074; 80076; 80164; 80307; 80320; 80329; 81003; 81015; 82607; 82728; 83540; 83605; 83690; 84145; 84439; 84443; 84466; 85025; 85652; 86038; 86140; 87040; 87086; 87088; 87389; 99285; J0744; J7030; J7605; Q9967

== ENCOUNTER 2018-09-11 00:42 | Emergency (ER) | payer SELFPAY ==
--- OUTSIDE RECORDS SUMMARY | 2018-09-11 00:44 | XMS REPORT | Clinical Summary ---
:1970 Author Organization [facility] Address [address] [place] [address] Care Team Providers Name Role Phone Asked, [...] INFLUENZA VACCINE 11/02/2018 Results Not on fileafter 09/10/2017 Advance Directives Patient has advance care planning documents on file. For more information, please contact:[address] [phone] [place] [address]
--- OUTSIDE RECORDS SUMMARY | 2018-09-11 00:45 | XMS REPORT | Clinical Summary ---
:1970 Author Organization [facility] Address [address] [place] [address] Care Team Providers Name Role Phone Pcp, No Primary Care Provider Unavailable Allergies No Known Allergies Medications Medication Sig Dispensed Refills Start Date End Date Status divalproex (DEPAKOTE) Take 250 mg by 0 Active 250 MG EC mouth Daily tabletIndications: (0600). Bipolar Disorder in Remission divalproex (DEPAKOTE) Take 500 mg by 0 Active 250 MG EC mouth nightly. tabletIndications: Bipolar Disorder in Remission Active Problems Problem Noted Date Bipolar disorder, unspecified 09/03/2018 Nicotine dependence, unspecified, uncomplicated 09/03/2018 Anemia 09/03/2018 Colitis 09/02/2018 Bipolar 1 disorder Encounters Date Type Specialty Care Team Description 09/04/2018 Surgery Gastroenterology Hardik Vasquez ENDOSCOPY,CAPSULE MD Mack 09/03/2018 Travel 09/02/2018 [facility] General Internal Shaila Medina Colitis; - Encounter Medicine MD Jo Iron deficiency anemia, unspecified iron deficiency anemia type; 09/06/2018 Patel Valenzuela Bipolar 1 disorder (HCC); MD Mike Enteritis Lesli Arzate MD Vernon, Kimberly Ann, MD 09/02/2018 Travel after 09/10/2017 Social History Tobacco Use Types Packs/Day Years Used Date Current Every Day Smoker Alcohol Use Drinks/Week oz/Week Comments Yes Sex Assigned at Date Recorded Not on file Job Start Date Occupation Industry Not on file Not on file Not on file Travel History Travel Start Travel End No recent travel history available. Last Filed Vital Signs Vital Sign Reading Time Taken Blood Pressure 116/68 09/06/2018 12:21 PM CDT Pulse 92 09/06/2018 12:21 PM CDT Temperature 36.2 C (97.2 F) 09/06/2018 12:21 PM CDT Respiratory Rate 20 09/06/2018 12:21 PM CDT Oxygen Saturation 98% 09/06/2018 12:21 PM CDT Inhaled Oxygen Concentration - - Weight 48.1 kg (106 lb) 09/02/2018 9:00 PM CDT Height 160 cm (5' 3") 09/02/2018 9:00 PM CDT Body Mass Index 18.78 09/02/2018 9:00 PM CDT Plan of Treatment Not on file Procedures Procedure Name Priority Date/Time Associated Diagnosis Comments CT ABDOMEN/PELVIS STAT 09/05/2018 6:35 Results for this WITH IV CONTRAST PM CDT procedure are in the results section. XR ABDOMEN 1 VIEW MIRIAM 09/05/2018 1:08 Results for this PM CDT procedure are in the results section. CBC (HEMOGRAM ONLY) Routine 09/05/2018 5:03 Results for this AM CDT procedure are in the results section. BASIC METABOLIC PANEL Routine 09/05/2018 5:03 Results for this (7) AM CDT procedure are in the results section. CELIAC DISEASE PANEL Routine 09/04/2018 5:46 Results for this PM CDT procedure are in the results section. C-REACTIVE PROTEIN Routine 09/04/2018 5:46 Results for this PM CDT procedure are in the results section. GI PATHOGEN PROFILE Routine 09/04/2018 5:37 Results for this BY PCR PM CDT procedure are in the results section. H. PYLORI ANTIGEN, Routine 09/04/2018 5:37 Results for this STOOL PM CDT procedure are in the results section. ENDOSCOPY,CAPSULE 09/04/2018 8:00 Abdominal pain, AM CDT unspecified abdominal location RETICULOCYTE COUNT Routine 09/04/2018 3:59 Results for this AM CDT procedure are in the results section. FERRITIN Routine 09/04/2018 3:59 Results for this AM CDT procedure are in the results section. IRON, TIBC, % SAT. Routine 09/04/2018 3:59 Results for this (WITHOUT FERRITIN) AM CDT procedure are in the results section. CBC (HEMOGRAM ONLY) Routine 09/04/2018 3:59 Results for this AM CDT procedure are in the results section. BASIC METABOLIC PANEL Routine 09/04/2018 3:59 Results for this (7) AM CDT procedure are in the results section. SCREEN, Routine 09/03/2018 2:16 Results for this URINE PM CDT procedure are in the results section. CBC (HEMOGRAM ONLY) Routine 09/03/2018 4:18 Results for this AM CDT procedure are in the results section. BASIC METABOLIC PANEL Routine 09/03/2018 4:18 Results for this (7) AM CDT procedure are in the results section. after 09/10/[address] abdomen/pelvis with IV contrast (09/05/2018 6:35 PM CDT) Specimen Narrative Performed At FINAL REPORT [facility] TECHNIQUE: CT of the abdomen and pelvis WITH intravenous contrast and WITHOUT oral contrast. Dose modulation, iterative reconstruction, and/or weight-based adjustment of the mA/kV was utilized to reduce the radiation dose to as low as reasonably achievable. INDICATION: localization of retained video capsule. COMPARISON: None. FINDINGS: LOWER THORAX: Unremarkable. HEPATOBILIARY: Hypodensity in segment VIII measures 0.4 cm and is too small to further characterize. Gallbladder is unremarkable. No biliary ductal dilatation. SPLEEN: No splenomegaly. PANCREAS: No focal masses or ductal dilatation. ADRENALS: No adrenal nodules. KIDNEYS/URETERS: No hydronephrosis, stones, or masses. PELVIC ORGANS/BLADDER: Unremarkable. PERITONEUM/RETROPERITONEUM: Small volume free fluid in the right lower quadrant. LYMPH NODES: No lymphadenopathy. VESSELS: Unremarkable. GI TRACT: The video capsule is located in the cecum. Streak artifact from the 30 is negative evaluation of surrounding structures suboptimal. There are prominent loops of bowel in the lower abdomen which measure up to 3.4 cm. There is some narrowing in the right lower quadrant as best 28. The appendix is not well visualized. However, there are no right lower quadrant inflammatory changes to suggest acute appendicitis. BONES AND SOFT TISSUES: Unremarkable. IMPRESSION: 1.The video capsule is located within the cecum. 2.There are dilated loops of small bowel in the right lower quadrant with a site of transition. These findings are most likely due to a partial small bowel obstruction or possibly due to an effusion. 3.The small volume free fluid in the right lower quadrant is likely reactive to the partial small bowel obstruction. Signed: Doyle Simeon MD Report Verified Date/Time:09/05/2018 19:42:13 Reading Location: [facility] Consult Reading Room Procedure Note Interface, External Ris In - 09/05/2018 7:44 PM CDT FINAL REPORT TECHNIQUE: CT of the abdomen and pelvis WITH intravenous contrast and WITHOUT oral contrast. Dose modulation, iterative reconstruction, and/or weight-based adjustment of the mA/kV was utilized to reduce the radiation dose to as low as reasonably achievable. INDICATION: localization of retained video capsule. COMPARISON: None. FINDINGS: LOWER THORAX: Unremarkable. HEPATOBILIARY: Hypodensity in segment VIII measures 0.4 cm and is too small to further characterize. Gallbladder is unremarkable. No biliary ductal dilatation. SPLEEN: No splenomegaly. PANCREAS: No focal masses or ductal dilatation. ADRENALS: No adrenal nodules. KIDNEYS/URETERS: No hydronephrosis, stones, or masses. PELVIC ORGANS/BLADDER: Unremarkable. PERITONEUM/RETROPERITONEUM: Small volume free fluid in the right lower quadrant. LYMPH NODES: No lymphadenopathy. VESSELS: Unremarkable. GI TRACT: The video capsule is located in the cecum. Streak artifact from the 30 is negative evaluation of surrounding structures suboptimal. There are prominent loops of bowel in the lower abdomen which measure up to 3.4 cm. There is some narrowing in the right lower quadrant as best 28. The appendix is not well visualized. However, there are no right lower quadrant inflammatory changes to suggest acute appendicitis. BONES AND SOFT TISSUES: Unremarkable. IMPRESSION: 1.The video capsule is located within the cecum. 2.There are dilated loops of small bowel in the right lower quadrant with a site of transition. These findings are most likely due to a partial small bowel obstruction or possibly due to an effusion. 3.The small volume free fluid in the right lower quadrant is likely reactive to the partial small bowel obstruction. Signed: Doyle Simeon MD Report Verified Date/Time: 09/05/2018 19:42:13 Reading Location: [address] Consult Reading Room Performing Organization Address City/State/Zipcode Phone Number [facility] XR abdomen / KUB 1 view (09/05/2018 1:08 PM CDT) Specimen Narrative Performed At Addendum Begins XbyMe RIS REPORT STATUS:A Addendum: The video capsule is seen projected over the right iliac wing. It could be in the distal ileum versus large bowel. If in exact location is needed. CT scan will be necessary. End of addendum. Signed: Reza Lira MD Report Verified Date/Time:09/05/2018 15:30:35 Reading Location: [facility] Radiology Reading Room Addendum Ends FINAL REPORT TECHNIQUE: Supine radiograph of the abdomen dated 09/05/2018 HISTORY: Evaluate for retained video capsule. COMPARISON: None IMPRESSION: No air-filled, dilated loops of bowel to suggest obstruction. No free intraperitoneal air. No abnormal soft tissue mass. No radiodense foreign body visualized. Bones are unremarkable. Signed: Reza Lira MD Report Verified Date/Time:09/05/2018 14:53:33 Reading Location: [facility] Radiology Reading Room Procedure Note Interface, External Ris In - 09/05/2018 3:32 PM CDT Addendum Begins REPORT STATUS:A Addendum: The video capsule is seen projected over the right iliac wing. It could be in the distal ileum versus large bowel. If in exact location is needed. CT scan will be necessary. End of addendum. Signed: Reza Lira MD Report Verified Date/Time: 09/05/2018 15:30:35 Reading Location: [facility] Radiology Reading Room Addendum Ends FINAL REPORT TECHNIQUE: Supine radiograph of the abdomen dated 09/05/2018 HISTORY: Evaluate for retained video capsule. COMPARISON: None IMPRESSION: No air-filled, dilated loops of bowel to suggest obstruction. No free intraperitoneal air. No abnormal soft tissue mass. No radiodense foreign body visualized. Bones are unremarkable. Signed: Reza Lira MD Report Verified Date/Time: 09/05/2018 14:53:33 Reading Location: [facility] Radiology Reading Room Performing Organization Address City/State/Zipcode Phone Number GE RIS CBC (Hemogram only) (09/05/2018 5:03 AM CDT)Only the most recent of3 resultswithin the time period is included. WBC 7.3 3.5 - 10.5 K/L [facility] RBC 3.92 (L) 3.93 - 5.22 M/L [facility] Hemoglobin 10.2 (L) 11.2 - 15.7 GM/DL [facility] Hematocrit 33.0 (L) 34.1 - 44.9 % [facility] MCV 84.2 79.4 - 94.8 fL [facility] MCH 26.0 25.6 - 32.2 pg [facility] MCHC 30.9 (L) 32.2 - 35.5 GM/DL [facility] RDW 18.8 (H) 11.7 - 14.4 % [facility] Platelets 380 150 - 450 K/CU MM [facility] MPV 10.3 9.4 - 12.3 fL [facility] nRBC 0 0 - 0 /100 WBC [facility] Specimen Blood Performing Organization Address City/State/Zipcode Phone Number [facility] [address] [place] [address] CENTER Basic metabolic panel (09/05/2018 5:03 AM CDT)Only the most recent of3 resultswithin the time period is included. Sodium 138 136 - 145 meq/L [facility] Potassium 4.3 3.5 - 5.1 meq/L [facility] Chloride 110 (H) 98 - 107 meq/L [facility] CO2 23 22 - 29 meq/L [facility] BUN 8 7 - 21 mg/dL [facility] Creatinine 0.66 0.57 - 1.25 mg/dL [facility] Glucose 107 (H) 70 - 105 mg/dL [facility] Calcium 9.0 8.4 - 10.2 mg/dL [facility] EGFR 95Comment: ESTIMATED GFR IS mL/min/1.73 sq m [facility] NOT ACCURATE [facility] CLEARANCE IN PREDICTING GLOMERULAR FILTRATION RATE. ESTIMATED GFR IS NOT APPLICABLE FOR DIALYSIS PATIENTS. Specimen Blood Performing Organization Address City/State/Zipcode Phone Number [facility] [address] [place], [place] [id number] [phone] [place] Celiac Disease Panel (09/04/2018 5:46 PM CDT) Scan Result [facility] Celiac Disease Profile Refer to Celiac [facility] Autoverification Disease Panel [facility] results. Specimen Blood Narrative Performed At Performing Organization Address City/State/Zipcode Phone Number [place] [address] [facility] [id number] [facility] C-Reactive Protein (09/04/2018 5:46 PM CDT) CRP 0.38 0.00 - 0.50 mg/dL [facility] Specimen Blood Performing Organization Address City/State/Zipcode Phone Number [facility] [address] [place] [address] [phone] CENTER GI Pathogen Profile by PCR -ID Only (09/04/2018 5:37 PM CDT) CAMPYLOBACTER (PCR) Not detected Not detected [facility] PLESIOMONAS SHIGELLOIDES (PCR) Not detected Not detected [facility] [place] SALMONELLA (PCR) Not detected Not detected [facility] [place] YERSINIA ENTEROCOLITICA (PCR) Not detected Not detected [facility] VIBRIO CHOLERAE (PCR) Not detected Not detected [facility] ENTEROAGGREGATIVE E. COLI (EAEC) Not detected Not detected [facility] BY PCR [facility] ENTEROPATHOGENIC E. COLI (EPEC) BY Not detected Not detected [facility] PCR [facility] ENTEROTOXIGENIC E. COLI (ETEC) Not detected Not detected [facility] LT/ST BY PCR [facility] SHIGA-LIKE TOXIN-PRODUCING E. COLI Not detected Not detected [facility] (STEC) STX1/STX2 [facility] E. COLI O157 (PCR) Not detected [facility] SHIGELLA/ENTEROINVASIVE E. COLI Not detected Not detected [facility] (EIEC) BY PCR [facility] CRYPTOSPORIDIUM (PCR) Not detected Not detected [facility] CYCLOSPORA CAYETANENSIS (PCR) Not detected Not detected [facility] ENTAMOEBA HISTOLYTICA (PCR) Not detected Not detected [facility] GIARDIA LAMBLIA (PCR) Not detected Not detected [facility] ADENOVIRUS F 40/41 (PCR) Not detected Not detected [facility] ASTROVIRUS (PCR) Not detected Not detected [facility] NOROVIRUS GI/GII (PCR) Not detected Not detected [facility] ROTAVIRUS A (PCR) Not detected Not detected [facility] SAPOVIRUS (I, II, IV, V) BY PCR Not detected Not detected [facility] VIBRIO (PARAHAEMOLYTICUS, Not detected Not detected [facility] VULNIFICUS) [facility] Specimen Stool Narrative Performed At Other viruses, parasites and bacteria not [facility] targeted by this PCR panel cannot be excluded; therefore clinical correlation and follow up of serology, culture results, and other molecular studies is required. The results are not intended to be used as the sole means for clinical diagnosis or patient management decisions. This sample was tested at the [facility] using the [employer] Gastrointestinal Panel. It is FDA cleared and has been verified and approved by the [facility] for clinical use. This laboratory is CLIA-certified and [employer] [place] [employer] (CAP)-accredited to perform high complexity testing. Performing Organization Address City/State/Zipcode Phone Number [facility] [address] [place] [address] CENTER H. pylori antigen, stool (09/04/2018 5:37 PM CDT) H. pylori Antigen Not detected Not detected [facility] Comment: [facility] Antimicrobials, proton pump inhibitors, and bismuth preparations inhibit H. pylori and ingestion up to two weeks prior to testing may cause false negative results. If clinically indicated the test should be repeated on a new specimen obtained two weeks after discontinuing treatment. Specimen Stool Narrative Performed At Performing Lab [facility] *[facility], [address] [place] [phone] Juan Mak MD, PhD Performing Organization Address City/State/Zipcode Phone Number [facility], [place] [address] [facility]POR[facility] [address] [facility] Iron, TIBC, % sat. (without ferritin) (09/04/2018 3:59 AM CDT) Iron 15.0 (L) 40.0 - 160.0 ug/dL [facility] TIBC 274 250 - 450 ug/dL [facility] Iron % Saturation 5 (L) 20 - 55 % [facility] Specimen Blood Performing Organization Address [facility] Phone Number [address] [address] CENTER Reticulocyte count (09/04/2018 3:59 AM CDT) % Retic 1.1 0.5 - 1.7 % [facility] Specimen Blood Performing Organization Address [facility] Phone Number [address] [address] [phone] CENTER Ferritin (09/04/2018 3:59 AM CDT) Ferritin 13 5 - 275 ng/mL [facility] Specimen Blood Performing Organization Address [facility] Phone Number [address] [address] [place] Screen, urine (09/03/2018 2:16 PM CDT) Preg Test, Ur Negative [facility] Specimen Urine Performing Organization Address City/State/Zipcode Phone Number [facility] [address] [place] [address] [phone] CENTER after 09/10/2017 Advance Directives For more information, please contact:[address] [phone] Code Status Date Activated Date Inactivated Comments Full Code 09/02/2018 9:07 PM 09/06/2018 2:52 PM This code status was determined by: Patient
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
--- OUTSIDE RECORDS SUMMARY | 2018-09-11 00:48 | XMS REPORT ---
:1970 [facility] [address] [place] [address] Care Team Providers Name Role Phone UNKNOWN, REFFERING Primary Care Provider Unavailable CANDIDA LIZAMA Unavailable Unavailable Problems This patient has no known problems. Allergies, Adverse Reactions, Alerts This patient has no known allergies or adverse reactions. Medications This patient has no known medications. Encounters Start End Encounter Admission Attending Care Care Encounter Date/Time Date/Time Type Type Clinicians Facility Department ID 2017-07-02 2017-07-02 Emergency [facility] MED [id number] 08:16:00 08:16:00 Results Test Description Test Time Test Comments Text Results Atomic Results Result Comments CELIAC DISEASE PANEL 2018-09-08 08:06:00 Test Item Value Reference Range Comments SCAN RESULT (test [id number]=[id number]) CELIAC DISEASE PROFILE AUTOVERIFICATION Refer to Celiac Disease Panel ([facility]) (test cstf=[id number]) results. CT, [id number] 19:42:00Only need IV contrast, not POFINAL REPORT TECHNIQUE: CT of the abdomen and [...] characterize. Gallbladder is unremarkable. No biliary ductal dilatation.SPLEEN: No splenomegaly.PANCREAS: No focal masses or ductal dilatation. ADRENALS: No adrenal nodules.KIDNEYS/URETERS: No hydronephrosis, stones,or masses.PELVIC ORGANS/BLADDER: Unremarkable. PERITONEUM/RETROPERITONEUM : Small volume free fluid in the right lower quadrant.LYMPH NODES: No lymphadenopathy.VESSELS: Unremarkable. GI TRACT: The videocapsule is located in the cecum. Streak artifact from the 30 is negative evaluation of surrounding structures suboptimal. There are prominent loops of bowel in the lower abdomen which measure up to 3.4cm. There is some narrowing in the right [...] partial small bowel obstruction. Signed: Doyle Simeon MDReport Verified Date/Time: 09/05/2018 19:42: 13 Reading Location: [facility] C013 Consult Reading Room RAD, ABDOMEN/KUB, 1 VIEW [id number] 15:30:00Reason for exam:->look for retained video capsuleAddendum BeginsREPORT STATUS:A Addendum:The video capsule is seen projected over the right iliac wing. It could be in the distal ileum versus large bowel. If in exact location isneeded. CT scan will be necessary. End of addendum. Signed: Gisele Lira MDReport Verified Date/ Time: 09/05/2018 15:30:35 Reading Location: [facility] Radiology Reading RoomAddendum EndsFINAL REPORT TECHNIQUE: Supine radiograph of the abdomen dated 09/05/2018 HISTORY: Evaluate for retained video capsule. COMPARISON: None IMPRESSION:No air-filled, dilated loops of bowel to suggest obstruction. No free intraperitoneal air. No abnormal soft tissue mass. No radiodense foreign body visualized. Bones are unremarkable. Signed: Gisele Lira MDReport Verified Date/Time: 09/05/2018 14:53:33 Reading Location: [facility] Radiology Reading Room GI PATHOGEN PROFILE BY [id number] 10:43:00 Test Item Value Reference Range Comments CAMPYLOBACTER (PCR) (test lxmq=[id number]) Not detected Not detected PLESIOMONAS SHIGELLOIDES (PCR) (test Not detected Not detected rumy=3607767) SALMONELLA (PCR) (test zibr=7602693) Not detected Not detected YERSINIA ENTEROCOLITICA (PCR) (test Not detected Not detected ofpw=6983104) VIBRIO CHOLERAE (PCR) (test hywp=4394710) Not detected Not detected ENTEROAGGREGATIVE E. COLI (EAEC) BY PCR (test Not detected Not detected jjzl=1673859) ENTEROPATHOGENIC E. COLI (EPEC) BY PCR (test Not detected Not detected whwj=0864539) ENTEROTOXIGENIC E. COLI (ETEC) LT/ST BY PCR Not detected Not detected (test skdl=8805640) SHIGA-LIKE TOXIN-PRODUCING E. COLI (STEC) Not detected Not detected STX1/STX2 (test apmm=3100940) E. COLI O157 (PCR) (test blfe=2273268) Not detected SHIGELLA/ENTEROINVASIVE E. COLI (EIEC) BY PCR Not detected Not detected (test qygl=6883023) CRYPTOSPORIDIUM (PCR) (test msfa=5852191) Not detected Not detected CYCLOSPORA CAYETANENSIS (PCR) (test Not detected Not detected yylq=0338881) ENTAMOEBA HISTOLYTICA (PCR) (test dmwt=1948666) Not detected Not detected GIARDIA LAMBLIA (PCR) (test iapu=1141763) Not detected Not detected ADENOVIRUS F 40/41 (PCR) (test wkor=2132217) Not detected Not detected ASTROVIRUS (PCR) (test sdwh=8133757) Not detected Not detected NOROVIRUS GI/GII (PCR) (test kxsz=8574363) Not detected Not detected ROTAVIRUS A (PCR) (test ppha=5808499) Not detected Not detected SAPOVIRUS (I, II, IV, V) BY PCR (test Not detected Not detected fqxh=7235361) VIBRIO (PARAHAEMOLYTICUS, VULNIFICUS) (test Not detected Not detected stdc=1043883) Other viruses, parasites and bacteria not targeted by this PCR panel cannot be excluded; therefore clinical correlation and follow up of serology, culture results, and other molecular studies is required. The results are not intended to be used as the sole means for clinical diagnosis or patient management decisions. This sample was tested at the [facility] Molecular Diagnostics Laboratory using the [employer] Gastrointestinal Panel. It is FDA cleared and has been verified and approved by the [facility] Molecular Diagnostics Laboratory for clinical use. This laboratory is CLIA-certified and College ofAmerican Pathologists (CAP)-accredited to perform high complexity testing.BASIC METABOLIC [id number] 05:42:00 Test Item Value Reference Range Comments SODIUM (BEAKER) (test 138 meq/L 136-145 sfwy=689) POTASSIUM (BEAKER) (test 4.3 meq/L 3.5-5.1 zuma=994) CHLORIDE (BEAKER) (test 110 meq/L 98-107 nlkc=401) CO2 (BEAKER) (test 23 meq/L 22-29 qfmi=872) BLOOD UREA NITROGEN 8 mg/dL 7-21 (BEAKER) (test pyki=021) CREATININE (BEAKER) (test 0.66 mg/dL 0.57-1.25 chdj=189) GLUCOSE RANDOM (BEAKER) 107 mg/dL 70-105 (test xyoz=415) CALCIUM (BEAKER) (test 9.0 mg/dL 8.4-10.2 bcvr=407) EGFR (BEAKER) (test 95 mL/min/1.73 sq m ESTIMATED GFR IS NOT ibzm=5180) ACCURATE CREATININE CLEARANCE IN PREDICTING GLOMERULAR FILTRATION RATE. ESTIMATED GFR IS NOT APPLICABLE FOR DIALYSIS PATIENTS. CBC (HEMOGRAM ONLY)2018-09-05 05:23:00 Test Item Value Reference Range Comments WHITE BLOOD CELL COUNT (BEAKER) (test wvbi=561) 7.3 K/ L 3.5-10.5 RED BLOOD CELL COUNT (BEAKER) (test bwho=311) 3.92 M/ L 3.93-5.22 HEMOGLOBIN (BEAKER) (test siuh=228) 10.2 GM/DL 11.2-15.7 HEMATOCRIT (BEAKER) (test vnks=197) 33.0 % 34.1-44.9 MEAN CORPUSCULAR VOLUME (BEAKER) (test isyk=673) 84.2 fL 79.4-94.8 MEAN CORPUSCULAR HEMOGLOBIN (BEAKER) (test 26.0 pg 25.6-32.2 kyam=561) MEAN CORPUSCULAR HEMOGLOBIN CONC (BEAKER) (test 30.9 GM/DL 32.2-35.5 wvoq=154) RED CELL DISTRIBUTION WIDTH (BEAKER) (test 18.8 % 11.7-14.4 axiq=941) PLATELET COUNT (BEAKER) (test nuhw=828) 380 K/CU MM 150-450 MEAN PLATELET VOLUME (BEAKER) (test vaka=312) 10.3 fL 9.4-12.3 NUCLEATED RED BLOOD CELLS (BEAKER) (test 0 /100 WBC 0-0 pxxf=138) C-REACTIVE [id number] 18:59:00 Test Item Value Reference Range Comments C-REACTIVE PROTEIN (BEAKER) (test fwpu=252) 0.38 mg/dL 0.00-0.50 [id number] 05:48:00 Test Item Value Reference Range Comments FERRITIN (BEAKER) (test mlek=954) 13 ng/mL 5-275 BASIC METABOLIC [id number] 05:27:00 Test Item Value Reference Range Comments SODIUM (BEAKER) (test 139 meq/L 136-145 wkdp=985) POTASSIUM (BEAKER) (test 4.0 meq/L 3.5-5.1 webl=442) CHLORIDE (BEAKER) (test 112 meq/L 98-107 qxzo=881) CO2 (BEAKER) (test 23 meq/L 22-29 rlfa=125) BLOOD UREA NITROGEN 3 mg/dL 7-21 (BEAKER) (test wpeg=402) CREATININE (BEAKER) (test 0.62 mg/dL 0.57-1.25 hnkz=141) GLUCOSE RANDOM (BEAKER) 91 mg/dL 70-105 (test mkus=784) CALCIUM (BEAKER) (test 8.4 mg/dL 8.4-10.2 ffus=731) EGFR (BEAKER) (test 102 mL/min/1.73 sq m ESTIMATED GFR IS NOT rjyf=8959) ACCURATE CREATININE CLEARANCE IN PREDICTING GLOMERULAR FILTRATION RATE. ESTIMATED GFR IS NOT APPLICABLE FOR DIALYSIS PATIENTS. IRON, TIBC, % SAT. (WITHOUT FERRITIN)2018-09-04 05:26:00 Test Item Value Reference Range Comments IRON (BEAKER) (test jhuj=697) 15.0 ug/dL 40.0-160.0 TOTAL IRON BINDING CAPACITY (BEAKER) (test 274 ug/dL 250-450 xkuk=958) IRON % SATURATION (2) (BEAKER) (test fmwq=4715) 5 % 20-55 CBC (HEMOGRAM ONLY)2018-09-04 05:05:00 Test Item Value Reference Range Comments WHITE BLOOD CELL COUNT (BEAKER) (test njsi=558) 5.9 K/ L 3.5-10.5 RED BLOOD CELL COUNT (BEAKER) (test drnp=029) 3.67 M/ L 3.93-5.22 HEMOGLOBIN (BEAKER) (test sapb=690) 9.8 GM/DL 11.2-15.7 HEMATOCRIT (BEAKER) (test dszt=725) 30.7 % 34.1-44.9 MEAN CORPUSCULAR VOLUME (BEAKER) (test bodo=777) 83.7 fL 79.4-94.8 MEAN CORPUSCULAR HEMOGLOBIN (BEAKER) (test 26.7 pg 25.6-32.2 enbn=486) MEAN CORPUSCULAR HEMOGLOBIN CONC (BEAKER) (test 31.9 GM/DL 32.2-35.5 iipy=718) RED CELL DISTRIBUTION WIDTH (BEAKER) (test 18.9 % 11.7-14.4 pawf=911) PLATELET COUNT (BEAKER) (test opmy=257) 361 K/CU MM 150-450 MEAN PLATELET VOLUME (BEAKER) (test ujrm=450) 10.3 fL 9.4-12.3 NUCLEATED RED BLOOD CELLS (BEAKER) (test 0 /100 WBC 0-0 qufc=032) RETICULOCYTE [id number] 05:05:00 Test Item Value Reference Range Comments RETICULOCYTE COUNT PCT (BEAKER) (test bpxp=011) 1.1 % 0.5-1.7 SCREEN, [id number] 15:17:00 Test Item Value Reference Range Comments TEST URINE (BEAKER) (test fhpx=382) Negative BASIC METABOLIC [id number] 04:53:00 Test Item Value Reference Range Comments SODIUM (BEAKER) (test 136 meq/L 136-145 iwxt=834) POTASSIUM (BEAKER) (test 3.8 meq/L 3.5-5.1 daed=377) CHLORIDE (BEAKER) (test 109 meq/L 98-107 zogp=586) CO2 (BEAKER) (test 24 meq/L 22-29 lrxf=090) BLOOD UREA NITROGEN 5 mg/dL 7-21 (BEAKER) (test dazu=007) CREATININE (BEAKER) (test 0.60 mg/dL 0.57-1.25 zzen=851) GLUCOSE RANDOM (BEAKER) 88 mg/dL 70-105 (test otmn=341) CALCIUM (BEAKER) (test 8.3 mg/dL 8.4-10.2 kaaw=804) EGFR (BEAKER) (test 106 mL/min/1.73 sq m ESTIMATED GFR IS NOT gbht=7273) ACCURATE CREATININE CLEARANCE IN PREDICTING GLOMERULAR FILTRATION RATE. ESTIMATED GFR IS NOT APPLICABLE FOR DIALYSIS PATIENTS. CBC (HEMOGRAM ONLY)2018-09-03 04:33:00 Test Item Value Reference Range Comments WHITE BLOOD CELL COUNT (BEAKER) (test fjyf=094) 5.8 K/ L 3.5-10.5 RED BLOOD CELL COUNT (BEAKER) (test duwp=166) 3.53 M/ L 3.93-5.22 HEMOGLOBIN (BEAKER) (test zxae=265) 9.2 GM/DL 11.2-15.7 HEMATOCRIT (BEAKER) (test fgtq=406) 29.7 % 34.1-44.9 MEAN CORPUSCULAR VOLUME (BEAKER) (test uvfe=982) 84.1 fL 79.4-94.8 MEAN CORPUSCULAR HEMOGLOBIN (BEAKER) (test 26.1 pg 25.6-32.2 fwxd=838) MEAN CORPUSCULAR HEMOGLOBIN CONC (BEAKER) (test 31.0 GM/DL 32.2-35.5 wyww=920) RED CELL DISTRIBUTION WIDTH (BEAKER) (test 18.8 % 11.7-14.4 qweg=586) PLATELET COUNT (BEAKER) (test etqq=004) 337 K/CU MM 150-450 MEAN PLATELET VOLUME (BEAKER) (test txun=032) 9.7 fL 9.4-12.3 NUCLEATED RED BLOOD CELLS (BEAKER) (test 0 /100 WBC 0-0 vpqz=949)
[2018-09-11] MEDS ORDERED: SIMETHICONE 80 MG TAB ONE (01:40)
--- NOTE | 2018-09-11 01:41 | EDPHYS ---
Physician Documentation [facility] Name: Dayami Espinosa Age: 48 yrs Sex: Female : 1970 Arrival Date: 09/11/2018 Time: 00:43 Bed 4 Private MD: ED Physician Clinton Esquivel HPI: 09/11 00:55 This 48 yrs old Female presents to ER via EMS with complaints of Abdominal snw Pain. 00:55 The patient presents with abdominal pain in the left lower quadrant. Onset: The snw symptoms/episode began/occurred and became worse today, and became persistent. The symptoms do not radiate. Associated signs and symptoms: none. The symptoms are described as constant, crampy. Severity of pain: At its worst the pain was moderate. It is unknown whether or not the patient has had similar symptoms in the past. It is unknown whether or not the patient has recently seen a physician, pt states she has been in [place] for a week and is awaiting a pill cam she swallowed to pass. CREAM DUMPER: 00:45 LMP 09/02/2018 rr5 Historical: - Allergies: 00:52 No Known Allergies; ea - Home Meds: 00:52 Depakote 250 mg Oral TbEC 1 tab in the morning for Bipolar Disorder in Remission ea [Active]; Depakote 250 mg Oral TbEC 2 tabs nightly [Active]; - PMHx: 00:52 Ovarian cyst; gastritis; Bipolar disorder; Anemia; ea - PSHx: 00:52 brain surgery; ea - Immunization history:: Adult Immunizations up to date. - Social history:: Smoking status: Patient/guardian denies using tobacco. - Ebola Screening: : No symptoms or risks identified at this time. ROS: 00:53 Constitutional: Negative for fever, chills, and weight loss, Eyes: Negative for injury, snw pain, redness, and discharge, ENT: Negative for injury, pain, and discharge, Neck: Negative for injury, pain, and swelling, Cardiovascular: Negative for chest pain, palpitations, and edema, Respiratory: Negative for shortness of breath, cough, wheezing, and pleuritic chest pain, Abdomen/GI: Negative for nausea, vomiting, diarrhea, and constipation, + left lower quad abd pain Back: Negative for injury and pain, : Negative for injury, bleeding, discharge, and swelling, MS/Extremity: Negative for injury and deformity, Skin: Negative for injury, rash, and discoloration, Neuro: Negative for headache, weakness, numbness, tingling, and seizure. Exam: 00:53 Constitutional: This is a thin, manic patient who is awake, agitated but in no acute snw distress. Head/Face: Normocephalic, atraumatic. Eyes: Pupils equal round and reactive to light, extra-ocular motions intact. Lids and lashes normal. Conjunctiva and sclera are non-icteric and not injected. Cornea within normal limits. Periorbital areas with no swelling, redness, or edema. ENT: Nares patent. No nasal discharge, no septal abnormalities noted. Tympanic membranes are normal and external auditory canals are clear. Oropharynx with no redness, swelling, or masses, exudates, or evidence of obstruction, uvula midline. Mucous membranes moist. Neck: Trachea midline, no thyromegaly or masses palpated, and no cervical lymphadenopathy. Supple, full range of motion without nuchal rigidity, or vertebral point tenderness. No Meningismus. Chest/axilla: Normal chest wall appearance and motion. Nontender with no deformity. No lesions are appreciated. Cardiovascular: Regular rate and rhythm with a normal S1 and S2. No gallops, murmurs, or rubs. Normal PMI, no JVD. No pulse deficits. Respiratory: Lungs have equal breath sounds bilaterally, clear to auscultation and percussion. No rales, rhonchi or wheezes noted. No increased work of breathing, no retractions or nasal flaring. Back: No spinal tenderness. No costovertebral tenderness. Full range of motion. Skin: Warm, dry with normal turgor. Normal color with no rashes, no lesions, and no evidence of cellulitis. MS/ Extremity: Pulses equal, no cyanosis. Neurovascular intact. Full, normal range of motion. Neuro: Awake and alert, GCS 15, oriented to person, place, time, and situation. Cranial nerves II-XII grossly intact. Motor strength 5/5 in all extremities. Sensory grossly intact. Cerebellar exam normal. Normal gait. 00:53 Abdomen/GI: Inspection: abdomen appears normal, Bowel sounds: hyperactive, in the left lower quadrant. Vital Signs: 00:45 BP 123 / 66; Pulse 91; Resp 19; Temp 98.6; Pulse Ox 99% ; Weight 48.53 kg; Height 5 ft. rr5 3 in. (160.02 cm); Pain 10; 02:05 BP 100 / 70; Pulse 75; Resp 16; Temp 98.4; Pulse Ox 100% ; rr5 00:45 Body Mass Index 18.95 (48.53 kg, 160.02 cm) rr5 MDM: 00:48 Patient medically screened. snw 02:04 Data reviewed: vital signs, nurses notes. Data interpreted: Pulse oximetry: on room air snw is 99 %. Interpretation: normal. Counseling: I had a detailed discussion with the patient and/or guardian regarding: the historical points, exam findings, and any diagnostic results supporting the discharge/admit diagnosis, radiology results, the need for outpatient follow up, to return to the emergency department if symptoms worsen or persist or if there are any questions or concerns that arise at home. Special discussion: Based on the patient's Hx, exam, and Dx evaluation, there is no indication for emergent surgery or inpatient Tx. It is understood by the patient/guardian that if the Sx's persist or worsen they need to return immediately for re-evaluation. Based on the history and exam findings, there is no indication for further emergent testing or inpatient evaluation. I discussed with the patient/guardian the need to see the delivery and mail sorter for further evaluation of the symptoms. I discussed with the patient/guardian the need to see the primary care provider for further evaluation of the symptoms. 09/11 01:07 Order name: Teddy Yarbrough [facility] Administered Medications: 01:26 Drug: Simethicone 120 mg Route: PO; ea 02:10 Follow up: Response: No adverse reaction ea Disposition: 09/11/18 01:41 Discharged to Home. Impression: Lower abdominal pain, unspecified. - Condition is Stable. - Discharge Instructions: Abdominal Pain, Adult, Rehydration, Pediatric, Intestinal Gas and Gas Pains, Pediatric. - Medication Reconciliation Form, Thank You Letter, Antibiotic Education, Prescription Opioid Use form. - Follow up: Private Physician; When: 1 - 2 days; Reason: Recheck today's complaints, Continuance of care, Re-evaluation by your physician. Follow up: Emergency Department; When: As needed; Reason: Worsening of condition. Signatures: Dispatcher [facility] Zarina Nava, MECHANICAL ENGINEERING TEACHER-C MECHANICAL ENGINEERING TEACHER-[employer] Jacquelin Matias, Brandin Velasquez RN, ea RN RN rr5 Corrections: (The following items were deleted from the chart) 00:55 00:53 Constitutional: This is a well developed, well nourished patient who is awake, snw alert, and in no acute distress. Head/Face: Normocephalic, atraumatic. Eyes: Pupils equal round and reactive to light, extra-ocular motions intact. Lids and lashes normal. Conjunctiva and sclera are non-icteric and not injected. Cornea within normal limits. Periorbital areas with no swelling, redness, or edema. ENT: Nares patent. No nasal discharge, no septal abnormalities noted. Tympanic membranes are normal and external auditory canals are clear. Oropharynx with no redness, swelling, or masses, exudates, or evidence of obstruction, uvula midline. Mucous membranes moist. Neck: Trachea midline, no thyromegaly or masses palpated, and no cervical lymphadenopathy. Supple, full range of motion without nuchal rigidity, or vertebral point tenderness. No Meningismus. Chest/axilla: Normal chest wall appearance and motion. Nontender with no deformity. No lesions are appreciated. Cardiovascular: Regular rate and rhythm with a normal S1 and S2. No gallops, murmurs, or rubs. Normal PMI, no JVD. No pulse deficits. Respiratory: Lungs have equal breath sounds bilaterally, clear to auscultation and percussion. No rales, rhonchi or wheezes noted. No increased work of breathing, no retractions or nasal flaring. Back: No spinal tenderness. No costovertebral tenderness. Full range of motion. Skin: Warm, dry with normal turgor. Normal color with no rashes, no lesions, and no evidence of cellulitis. MS/ Extremity: Pulses equal, no cyanosis. Neurovascular intact. Full, normal range of motion. Neuro: Awake and alert, GCS 15, oriented to person, place, time, and situation. Cranial nerves II-XII grossly intact. Motor strength 5/5 in all extremities. Sensory grossly intact. Cerebellar exam normal. Normal gait. snw 01:07 00:49 Abdomen Acute Series+RAD.RAD.BRZ ordered. EDMS EDMS 02:20 01:41 09/11/2018 01:41 Discharged to Home. Impression: Lower abdominal pain, rr5 unspecified. Condition is Stable. Forms are Medication Reconciliation Form, Thank You Letter, Antibiotic Education, Prescription Opioid Use. Follow up: Private Physician; When: 1 - 2 days; Reason: Recheck today's complaints, Continuance of care, Re-evaluation by your physician. Follow up: Emergency Department; When: As needed; Reason: Worsening of condition. snw
--- NOTE | 2018-09-11 01:41 | ER ---
Nurse's Notes [facility] Name: Dayami Espinosa Age: 48 yrs Sex: Female : 1970 Arrival Date: 09/11/2018 Time: 00:43 Bed 4 Private MD: Diagnosis: Lower abdominal pain, unspecified Presentation: 09/11 00:48 Presenting complaint: EMS states: Pt reports she swallowed a pill with a camera and has ea not passed it and now is having left lower abdominal pain. Transition of care: patient was not received from another setting of care. Onset of symptoms was September 11, 2018. Risk Assessment: Do you want to hurt yourself or someone else? Patient reports no desire to harm self or others. Initial Sepsis Screen: Does the patient meet any 2 criteria? No. Patient's initial sepsis screen is negative. Does the patient have a suspected source of infection? No. Patient's initial sepsis screen is negative. Care prior to arrival: None. 00:48 Method Of Arrival: EMS: [facility] ea 00:48 Acuity: JAZMIN 4 ea TRUSTEE OF ESTATE: 00:45 LMP 09/02/2018 rr5 Historical: - Allergies: 00:52 No Known Allergies; ea - Home Meds: 00:52 Depakote 250 mg Oral TbEC 1 tab in the morning for Bipolar Disorder in Remission ea [Active]; Depakote 250 mg Oral TbEC 2 tabs nightly [Active]; - PMHx: 00:52 Ovarian cyst; gastritis; Bipolar disorder; Anemia; ea - PSHx: 00:52 brain surgery; ea - Immunization history:: Adult Immunizations up to date. - Social history:: Smoking status: Patient/guardian denies using tobacco. - Ebola Screening: : No symptoms or risks identified at this time. Screenin:50 Abuse screen: Denies threats or abuse. Denies injuries from another. Nutritional rr5 screening: No deficits noted. Tuberculosis screening: No symptoms or risk factors identified. Fall Risk None identified. Total Alfred Fall Scale indicates No Risk (0-24 pts). Assessment: 00:50 General: Appears in no apparent distress. uncomfortable, Behavior is calm, cooperative, rr5 appropriate for age. Pain: Complains of pain in abdomen Pain does not radiate. Pain currently is 10 out of 10 on a pain scale. Quality of pain is described as aching, Pain began gradually, Is intermittent. Neuro: Level of Consciousness is awake, alert, obeys commands, Oriented to person, place, time, situation, Appropriate for age. Cardiovascular: Capillary refill < 3 seconds Patient's skin is warm and dry. Respiratory: Airway is patent Respiratory effort is even, unlabored, Respiratory pattern is regular, symmetrical. GI: Abdomen is flat, Bowel sounds present X 4 quads. Abd is soft and non tender Reports lower abdominal pain. : No signs and/or symptoms were reported regarding the genitourinary system. EENT: No signs and/or symptoms were reported regarding the EENT system. Derm: Skin is intact, Skin temperature is warm. Musculoskeletal: Capillary refill < 3 seconds, Range of motion: intact in all extremities. 01:15 Reassessment: Patient appears in no apparent distress at this time. No changes from rr5 previously documented assessment. awaiting for result. 02:15 Reassessment: Patient appears in no apparent distress at this time. Patient is alert, rr5 oriented x 3, equal unlabored respirations, skin warm/dry/pink. discharge instruction given and explained verbalized understanding. Vital Signs: 00:45 BP 123 / 66; Pulse 91; Resp 19; Temp 98.6; Pulse Ox 99% ; Weight 48.53 kg; Height 5 ft. rr5 3 in. (160.02 cm); Pain 10/10; 02:05 BP 100 / 70; Pulse 75; Resp 16; Temp 98.4; Pulse Ox 100% ; rr5 00:45 Body Mass Index 18.95 (48.53 kg, 160.02 cm) rr5 ED Course: 00:43 Patient arrived in ED. ea 00:44 Zarina Nava FNP-C [facility] snw 00:44 Clinton Esquivel MD is Attending Physician. snw 00:45 Brandin Figueroa RN is Primary Nurse. rr5 00:50 Patient has correct armband on for positive identification. Bed in low position. Pulse rr5 ox on. NIBP on. 00:51 Triage completed. ea 00:52 Patient has correct armband on for positive identification. Bed in low position. Call ea light in reach. Side rails up X2. 01:00 Arm band placed on. rr5 01:07 Abdomen W Erect In Process Unspecified. EDMS 02:20 No provider procedures requiring assistance completed. Patient did not have IV access rr5 during this emergency room visit. Administered Medications: 01:26 Drug: Simethicone 120 mg Route: PO; ea 02:10 Follow up: Response: No adverse reaction ea Outcome: 01:41 Discharge ordered by . snw 02:18 Discharged to home via wheelchair. rr5 02:18 Condition: stable 02:18 Discharge instructions given to patient, Instructed on discharge instructions, follow up and referral plans. Demonstrated understanding of instructions, follow-up care. 02:20 Patient left the ED. rr5 Signatures: Dispatcher [employer] EDDC Zarina Nava, USABILITY SPECIALIST-C USABILITY SPECIALIST-Caw Jacquelin Matias, RN RN Brandin Pruitt, RN RN rr5
[2018-09-11] MEDS ORDERED: CEFTRIAXONE 1000 MG/VIAL ONE (03:13)
[2018-09-11] MEDS ORDERED: LIDOCAINE 1% MPF 5 ML VIAL ONE (03:13)
[2018-09-11] MEDS ORDERED: AZITHROMYCIN 250 MG TAB ONE (03:13)
--- NOTE | 2018-09-11 08:59 | RAD REPORT ---
EXAM DESCRIPTION: RAD - Abdomen W Erect - 09/11/2018 1:09 am CLINICAL HISTORY: Abdominal pain, possible retained pill cam COMPARISON: None. TECHNIQUE: Supine and upright views of the abdomen were obtained. FINDINGS: No bowel obstruction free air or pneumatosis. Bowel gas pattern is nonspecific. Multiple phleboliths are seen in the lower pelvis. No retained pill cam or other foreign body. IMPRESSION: No retained pill cam. No acute findings seen.
== END 2018-09-11 02:20 | disposition home or self-care (01) ==
LOC: ER 00:42
DX: R10.32 Left lower quadrant pain (principal); F31.9 Bipolar disorder, unspecified
CPT/HCPCS: 74019; 99284

== ENCOUNTER 2018-09-15 02:52 | Emergency (ER) | payer SELFPAY ==
--- OUTSIDE RECORDS SUMMARY | 2018-09-15 02:54 | XMS REPORT | Clinical Summary ---
:1970 [facility] [address] [place] [address] Care Team Providers Name Role Phone Asked, [...] INFLUENZA VACCINE 11/02/2018 Results Not on fileafter 09/14/2017 Advance Directives Patient has advance care planning documents on file. For more information, please contact:[place] [phone] [place] [address]
--- OUTSIDE RECORDS SUMMARY | 2018-09-15 02:55 | XMS REPORT | Clinical Summary ---
:1970 Author Organization [facility] Address [address] [place] [address] Care Team Providers Name Role Phone Pcp, [...] Vasquez ENDOSCOPY,CAPSULE MD Mack 09/03/2018 Travel 09/02/2018 [facility] General Internal Shaila Medina Colitis; - Encounter Medicine MD Jo Iron deficiency anemia, unspecified iron deficiency anemia type; 09/06/2018 Patel Valenzuela Bipolar 1 disorder (HCC); MD Mike Enteritis Lesli Arzate MD Vernon, Kimberly Ann, MD 09/02/2018 Travel after 09/14/2017 Social History Tobacco Use Types Packs/Day Years [...] procedure are in the results section. after 09/14/[address] abdomen/pelvis with IV contrast (09/05/2018 6:35 PM CDT) Specimen Narrative Performed At FINAL REPORT [facility] TECHNIQUE: CT of the abdomen and pelvis [...] MD Report Verified Date/Time:09/05/2018 19:42:13 Reading Location: [facility] Consult Reading Room Procedure Note Interface, External [...] Report Verified Date/Time: 09/05/2018 19:42:13 Reading Location: [address] Consult Reading Room Performing Organization Address City/State/Zipcode Phone Number [facility] XR abdomen / KUB 1 view (09/05/2018 1:08 PM CDT) Specimen Narrative Performed At Addendum Begins [employer] RIS REPORT STATUS:A Addendum: The video capsule is seen projected over the right iliac wing. It could be in the distal ileum versus large bowel. If in exact location is needed. CT scan will be necessary. End of addendum. Signed: Reza Lira MD Report Verified Date/Time:09/05/2018 15:30:35 Reading Location: [facility] Radiology Reading Room Addendum Ends FINAL REPORT TECHNIQUE: Supine radiograph of the abdomen dated 09/05/2018 HISTORY: Evaluate for retained video capsule. COMPARISON: None IMPRESSION: No air-filled, dilated loops of bowel to suggest obstruction. No free intraperitoneal air. No abnormal soft tissue mass. No radiodense foreign body visualized. Bones are unremarkable. Signed: Reza Lira MD Report Verified Date/Time:09/05/2018 14:53:33 Reading Location: [facility] Radiology Reading Room Procedure Note Interface, External [...] Report Verified Date/Time: 09/05/2018 15:30:35 Reading Location: [facility] Radiology Reading Room Addendum Ends FINAL REPORT TECHNIQUE: Supine radiograph of the abdomen dated 09/05/2018 HISTORY: Evaluate for retained video capsule. COMPARISON: None IMPRESSION: No air-filled, dilated loops of bowel to suggest obstruction. No free intraperitoneal air. No abnormal soft tissue mass. No radiodense foreign body visualized. Bones are unremarkable. Signed: Reza Lira MD Report Verified Date/Time: 09/05/2018 14:53:33 Reading Location: [facility] Radiology Reading Room Performing Organization Address City/State/Zipcode Phone Number [facility]IS CBC (Hemogram only) (09/05/2018 5:03 AM CDT)Only the most recent of3 resultswithin the time period is included. WBC 7.3 3.5 - 10.5 K/L [facility] RBC 3.92 (L) 3.93 - 5.22 M/L [facility] Hemoglobin 10.2 (L) 11.2 - 15.7 GM/DL [facility] Hematocrit 33.0 (L) 34.1 - 44.9 % [facility] MCV 84.2 79.4 - 94.8 fL [facility] MCH 26.0 25.6 - 32.2 pg [facility] MCHC 30.9 (L) 32.2 - 35.5 GM/DL [facility] RDW 18.8 (H) 11.7 - 14.4 % [facility] Platelets 380 150 - 450 K/CU MM [facility] MPV 10.3 9.4 - 12.3 fL [facility] nRBC 0 0 - 0 /100 WBC [facility] Specimen Blood Performing Organization Address City/State/Zipcode Phone Number [facility] [address] [place] [address] [phone] CENTER Basic metabolic panel (09/05/2018 5:03 AM CDT)Only the most recent of3 resultswithin the time period is included. Sodium 138 136 - 145 meq/L [facility] Potassium 4.3 3.5 - 5.1 meq/L [facility] Chloride 110 (H) 98 - 107 meq/L [facility] CO2 23 22 - 29 meq/L [facility] BUN 8 7 - 21 mg/dL [facility] Creatinine 0.66 0.57 - 1.25 mg/dL [facility] Glucose 107 (H) 70 - 105 mg/dL [facility] Calcium 9.0 8.4 - 10.2 mg/dL [facility] EGFR 95Comment: ESTIMATED GFR IS mL/min/1.73 sq m [facility] NOT ACCURATE [facility] CLEARANCE IN PREDICTING GLOMERULAR FILTRATION RATE. ESTIMATED GFR IS NOT APPLICABLE FOR DIALYSIS PATIENTS. Specimen Blood Performing Organization Address City/State/Zipcode Phone Number [facility] [address] [place], [place] [id number] [place] Celiac Disease Panel (09/04/2018 5:46 PM CDT) Scan Result [facility] Celiac Disease Profile Refer to Celiac [facility] results. Specimen Blood Narrative Performed At Performing Organization Address City/State/Zipcode Phone Number [place] [address] [facility]OR[facility] [id number] [facility] C-Reactive Protein (09/04/2018 5:46 PM CDT) CRP 0.38 0.00 - 0.50 mg/dL [facility] Specimen Blood Performing Organization Address City/State/Zipcode Phone Number [facility] [address] [place] [address] [phone] CENTER GI Pathogen Profile by PCR -ID Only (09/04/2018 5:37 PM CDT) CAMPYLOBACTER (PCR) Not detected Not detected [facility] PLESIOMONAS SHIGELLOIDES (PCR) Not detected Not detected [facility] MEDICAL [place] SALMONELLA (PCR) Not detected Not detected [facility] MEDICAL [place] YERSINIA ENTEROCOLITICA (PCR) Not detected Not detected [facility] VIBRIO CHOLERAE (PCR) Not detected Not detected [facility] ENTEROAGGREGATIVE E. COLI (EAEC) Not detected Not detected [facility] BY PCR MEDICAL CENTER ENTEROPATHOGENIC E. COLI (EPEC) BY Not detected Not detected [facility] PCR MEDICAL CENTER ENTEROTOXIGENIC E. COLI (ETEC) Not detected Not detected [facility] LT/ST BY PCR [facility] SHIGA-LIKE TOXIN-PRODUCING E. COLI Not detected Not detected [facility] (STEC) STX1/STX2 [facility] E. COLI O157 (PCR) Not detected [facility] SHIGELLA/ENTEROINVASIVE E. COLI Not detected Not detected [facility] (EIEC) BY PCR [facility] CRYPTOSPORIDIUM (PCR) Not detected Not detected [facility] CYCLOSPORA CAYETANENSIS (PCR) Not detected Not detected [facility] ENTAMOEBA HISTOLYTICA (PCR) Not detected Not detected [facility] GIARDIA LAMBLIA (PCR) Not detected Not detected [facility] ADENOVIRUS F 40/41 (PCR) Not detected Not detected [facility] ASTROVIRUS (PCR) Not detected Not detected [facility] NOROVIRUS GI/GII (PCR) Not detected Not detected [facility] ROTAVIRUS A (PCR) Not detected Not detected [facility] SAPOVIRUS (I, II, IV, V) BY PCR Not detected Not detected [facility] VIBRIO (PARAHAEMOLYTICUS, Not detected Not detected [facility] VULNIFICUS) [facility] Specimen Stool Narrative Performed At Other viruses, parasites and bacteria not [facility] targeted by this PCR panel cannot be excluded; therefore clinical correlation and follow up of serology, culture results, and other molecular studies is required. The results are not intended to be used as the sole means for clinical diagnosis or patient management decisions. This sample was tested at the [facility] Molecular Diagnostics Laboratory using the [employer] Gastrointestinal Panel. It is FDA cleared and has been verified and approved by the [facility] Molecular [facility]ostics [facility] for clinical use. This laboratory is CLIA-certified and [employer] (CAP)-accredited to perform high complexity testing. Performing Organization Address City/State/Zipcode Phone Number [facility] [address] [place] [address] [phone] CENTER H. pylori antigen, stool (09/04/2018 5:37 [...] Lab [facility] *S[facility], [address] [place] [phone] Juan Mak MD, PhD Performing Organization Address City/State/Zipcode Phone Number [facility], [place] [address] [facility] [address] [facility] Iron, TIBC, % sat. (without ferritin) (09/04/2018 3:59 AM CDT) Iron 15.0 (L) 40.0 - 160.0 ug/dL [facility] TIBC 274 250 - 450 ug/dL [facility] Iron % Saturation 5 (L) 20 - 55 % [facility] Specimen Blood Performing Organization Address [facility] Phone Number [address] [address] [phone] CENTER Reticulocyte count (09/04/2018 3:59 AM CDT) % Retic 1.1 0.5 - 1.7 % [facility] Specimen Blood Performing Organization Address [facility] Phone Number [address] [address] [phone] CENTER Ferritin (09/04/2018 3:59 AM CDT) Ferritin 13 5 - 275 ng/mL [facility] Specimen Blood Performing Organization Address [facility] Phone Number [address] [address] [phone] [place] Screen, urine (09/03/2018 2:16 PM CDT) Preg Test, Ur Negative [facility] Specimen Urine Performing Organization Address City/State/Zipcode Phone Number [facility] [address] [place] [address] CENTER after 09/14/2017 Advance Directives For more information, please contact:[address] [phone] Code Status Date Activated Date Inactivated Comments Full Code 09/02/2018 9:07 PM 09/06/2018 2:52 PM This code status was determined by: Patient
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
--- OUTSIDE RECORDS SUMMARY | 2018-09-15 02:56 | XMS REPORT ---
:1970 Author Organization [facility] Address [address] [place] [address] Care Team Providers Name Role Phone UNKNOWN, [...] Facility Department ID 2017-07-02 2017-07-02 Emergency E [facility] MED [id number] 08:16:00 08:16:00 Results Test Description Test Time Test Comments Text Results Atomic Results Result Comments CELIAC DISEASE PANEL 2018-09-08 08:06:00 Test Item Value Reference Range Comments SCAN RESULT (test [id number]=[id number]) CELIAC DISEASE PROFILE AUTOVERIFICATION Refer to Celiac Disease Panel (QUEST) (test [id number]=[id number]) results. CT, [id number] 19:42:00Only need IV contrast, not POFINAL REPORT [...] Verified Date/Time: 09/05/2018 19:42: 13 Reading Location: [facility] C013 Consult Reading Room RAD, ABDOMEN/KUB, 1 VIEW [id number] 15:30:00Reason for exam:->look for retained video capsuleAddendum BeginsREPORT STATUS:A Addendum:The video capsule is seen projected over the right iliac wing. It could be in the distal ileum versus large bowel. If in exact location isneeded. CT scan will be necessary. End of addendum. Signed: Gisele Lira MDReport Verified Date/ Time: 09/05/2018 15:30:35 Reading Location: [facility] Radiology Reading RoomAddendum EndsFINAL REPORT TECHNIQUE: Supine radiograph of the abdomen dated 09/05/2018 HISTORY: Evaluate for retained video capsule. COMPARISON: None IMPRESSION:No air-filled, dilated loops of bowel to suggest obstruction. No free intraperitoneal air. No abnormal soft tissue mass. No radiodense foreign body visualized. Bones are unremarkable. Signed: Gisele Lira MDReport Verified Date/Time: 09/05/2018 14:53:33 Reading Location: [facility] Radiology Reading Room GI PATHOGEN PROFILE BY [id number] 10:43:00 Test Item Value Reference Range Comments CAMPYLOBACTER (PCR) (test adef=[id number]) Not detected Not detected PLESIOMONAS SHIGELLOIDES (PCR) (test Not detected Not detected iebj=9871012) SALMONELLA (PCR) (test epzo=1091749) Not detected Not detected YERSINIA ENTEROCOLITICA (PCR) (test Not detected Not detected owwf=3032933) VIBRIO CHOLERAE (PCR) (test stlf=2793916) Not detected Not detected ENTEROAGGREGATIVE E. COLI (EAEC) BY PCR (test Not detected Not detected cdbl=0173386) ENTEROPATHOGENIC E. COLI (EPEC) BY PCR (test Not detected Not detected ugtk=3745300) ENTEROTOXIGENIC E. COLI (ETEC) LT/ST BY PCR Not detected Not detected (test irns=3238110) SHIGA-LIKE TOXIN-PRODUCING E. COLI (STEC) Not detected Not detected STX1/STX2 (test xinc=0855558) E. COLI O157 (PCR) (test wwuj=8870075) Not detected SHIGELLA/ENTEROINVASIVE E. COLI (EIEC) BY PCR Not detected Not detected (test yxow=5763922) CRYPTOSPORIDIUM (PCR) (test lcde=9403885) Not detected Not detected CYCLOSPORA CAYETANENSIS (PCR) (test Not detected Not detected wbys=5584931) ENTAMOEBA HISTOLYTICA (PCR) (test lomq=8409076) Not detected Not detected GIARDIA LAMBLIA (PCR) (test vuxd=4685107) Not detected Not detected ADENOVIRUS F 40/41 (PCR) (test jngk=1875986) Not detected Not detected ASTROVIRUS (PCR) (test lzcs=8507970) Not detected Not detected NOROVIRUS GI/GII (PCR) (test sjhi=1574704) Not detected Not detected ROTAVIRUS A (PCR) (test mkkp=9308085) Not detected Not detected SAPOVIRUS (I, II, IV, V) BY PCR (test Not detected Not detected pfss=7125652) VIBRIO (PARAHAEMOLYTICUS, VULNIFICUS) (test Not detected Not detected nhca=3896935) Other viruses, parasites and bacteria not targeted by this PCR panel cannot be excluded; therefore clinical correlation and follow up of serology, culture results, and other molecular studies is required. The results are not intended to be used as the sole means for clinical diagnosis or patient management decisions. This sample was tested at the [facility] using the New Vision[employer] Gastrointestinal Panel. It is FDA cleared and has been verified and approved by the [facility] for clinical use. This laboratory is CLIA-certified and College ofAmerican Pathologists (CAP)-accredited to perform high complexity testing.BASIC METABOLIC [id number] 05:42:00 Test Item Value Reference Range Comments SODIUM (BEAKER) (test 138 meq/L 136-145 wuvt=995) POTASSIUM (BEAKER) (test 4.3 meq/L 3.5-5.1 jqis=751) CHLORIDE (BEAKER) (test 110 meq/L 98-107 axaa=892) CO2 (BEAKER) (test 23 meq/L 22-29 pepq=290) BLOOD UREA NITROGEN 8 mg/dL 7-21 (BEAKER) (test lckz=778) CREATININE (BEAKER) (test 0.66 mg/dL 0.57-1.25 unnc=600) GLUCOSE RANDOM (BEAKER) 107 mg/dL 70-105 (test lefn=474) CALCIUM (BEAKER) (test 9.0 mg/dL 8.4-10.2 zhcp=370) EGFR (BEAKER) (test 95 mL/min/1.73 sq m ESTIMATED GFR IS NOT cofj=6388) ACCURATE CREATININE CLEARANCE IN PREDICTING GLOMERULAR FILTRATION RATE. ESTIMATED GFR IS NOT APPLICABLE FOR DIALYSIS PATIENTS. CBC (HEMOGRAM ONLY)2018-09-05 05:23:00 Test Item Value Reference Range Comments WHITE BLOOD CELL COUNT (BEAKER) (test ubjb=404) 7.3 K/ L 3.5-10.5 RED BLOOD CELL COUNT (BEAKER) (test stbj=379) 3.92 M/ L 3.93-5.22 HEMOGLOBIN (BEAKER) (test clfl=319) 10.2 GM/DL 11.2-15.7 HEMATOCRIT (BEAKER) (test inpq=289) 33.0 % 34.1-44.9 MEAN CORPUSCULAR VOLUME (BEAKER) (test iuaq=189) 84.2 fL 79.4-94.8 MEAN CORPUSCULAR HEMOGLOBIN (BEAKER) (test 26.0 pg 25.6-32.2 yldg=087) MEAN CORPUSCULAR HEMOGLOBIN CONC (BEAKER) (test 30.9 GM/DL 32.2-35.5 etam=365) RED CELL DISTRIBUTION WIDTH (BEAKER) (test 18.8 % 11.7-14.4 gepd=795) PLATELET COUNT (BEAKER) (test zzgj=927) 380 K/CU MM 150-450 MEAN PLATELET VOLUME (BEAKER) (test hgue=948) 10.3 fL 9.4-12.3 NUCLEATED RED BLOOD CELLS (BEAKER) (test 0 /100 WBC 0-0 dlbs=818) C-REACTIVE [id number] 18:59:00 Test Item Value Reference Range Comments C-REACTIVE PROTEIN (BEAKER) (test oxyt=533) 0.38 mg/dL 0.00-0.50 [id number] 05:48:00 Test Item Value Reference Range Comments FERRITIN (BEAKER) (test qbvp=083) 13 ng/mL 5-275 BASIC METABOLIC [id number] 05:27:00 Test Item Value Reference Range Comments SODIUM (BEAKER) (test 139 meq/L 136-145 clvi=663) POTASSIUM (BEAKER) (test 4.0 meq/L 3.5-5.1 dwkz=824) CHLORIDE (BEAKER) (test 112 meq/L 98-107 umut=085) CO2 (BEAKER) (test 23 meq/L 22-29 ucbu=634) BLOOD UREA NITROGEN 3 mg/dL 7-21 (BEAKER) (test bels=524) CREATININE (BEAKER) (test 0.62 mg/dL 0.57-1.25 qyww=587) GLUCOSE RANDOM (BEAKER) 91 mg/dL 70-105 (test velb=530) CALCIUM (BEAKER) (test 8.4 mg/dL 8.4-10.2 qokt=719) EGFR (BEAKER) (test 102 mL/min/1.73 sq m ESTIMATED GFR IS NOT cpcd=0435) ACCURATE CREATININE CLEARANCE IN PREDICTING GLOMERULAR FILTRATION RATE. ESTIMATED GFR IS NOT APPLICABLE FOR DIALYSIS PATIENTS. IRON, TIBC, % SAT. (WITHOUT FERRITIN)2018-09-04 05:26:00 Test Item Value Reference Range Comments IRON (BEAKER) (test bmzg=353) 15.0 ug/dL 40.0-160.0 TOTAL IRON BINDING CAPACITY (BEAKER) (test 274 ug/dL 250-450 njot=647) IRON % SATURATION (2) (BEAKER) (test smtt=6091) 5 % 20-55 CBC (HEMOGRAM ONLY)2018-09-04 05:05:00 Test Item Value Reference Range Comments WHITE BLOOD CELL COUNT (BEAKER) (test ctaw=291) 5.9 K/ L 3.5-10.5 RED BLOOD CELL COUNT (BEAKER) (test wzmz=605) 3.67 M/ L 3.93-5.22 HEMOGLOBIN (BEAKER) (test hbzj=985) 9.8 GM/DL 11.2-15.7 HEMATOCRIT (BEAKER) (test rakb=892) 30.7 % 34.1-44.9 MEAN CORPUSCULAR VOLUME (BEAKER) (test kiel=236) 83.7 fL 79.4-94.8 MEAN CORPUSCULAR HEMOGLOBIN (BEAKER) (test 26.7 pg 25.6-32.2 bdkz=974) MEAN CORPUSCULAR HEMOGLOBIN CONC (BEAKER) (test 31.9 GM/DL 32.2-35.5 kddt=774) RED CELL DISTRIBUTION WIDTH (BEAKER) (test 18.9 % 11.7-14.4 dqcj=180) PLATELET COUNT (BEAKER) (test zwyy=252) 361 K/CU MM 150-450 MEAN PLATELET VOLUME (BEAKER) (test qpcy=371) 10.3 fL 9.4-12.3 NUCLEATED RED BLOOD CELLS (BEAKER) (test 0 /100 WBC 0-0 onwu=149) RETICULOCYTE [id number] 05:05:00 Test Item Value Reference Range Comments RETICULOCYTE COUNT PCT (BEAKER) (test vtut=424) 1.1 % 0.5-1.7 SCREEN, [id number] 15:17:00 Test Item Value Reference Range Comments TEST URINE (BEAKER) (test xyqq=448) Negative BASIC METABOLIC [id number] 04:53:00 Test Item Value Reference Range Comments SODIUM (BEAKER) (test 136 meq/L 136-145 pcwc=707) POTASSIUM (BEAKER) (test 3.8 meq/L 3.5-5.1 qatp=111) CHLORIDE (BEAKER) (test 109 meq/L 98-107 goxd=681) CO2 (BEAKER) (test 24 meq/L 22-29 rzuj=541) BLOOD UREA NITROGEN 5 mg/dL 7-21 (BEAKER) (test boec=476) CREATININE (BEAKER) (test 0.60 mg/dL 0.57-1.25 fzby=468) GLUCOSE RANDOM (BEAKER) 88 mg/dL 70-105 (test cjps=634) CALCIUM (BEAKER) (test 8.3 mg/dL 8.4-10.2 zepi=435) EGFR (BEAKER) (test 106 mL/min/1.73 sq m ESTIMATED GFR IS NOT joio=7500) ACCURATE CREATININE CLEARANCE IN PREDICTING GLOMERULAR FILTRATION RATE. ESTIMATED GFR IS NOT APPLICABLE FOR DIALYSIS PATIENTS. CBC (HEMOGRAM ONLY)2018-09-03 04:33:00 Test Item Value Reference Range Comments WHITE BLOOD CELL COUNT (BEAKER) (test pavb=265) 5.8 K/ L 3.5-10.5 RED BLOOD CELL COUNT (BEAKER) (test hppo=338) 3.53 M/ L 3.93-5.22 HEMOGLOBIN (BEAKER) (test spss=255) 9.2 GM/DL 11.2-15.7 HEMATOCRIT (BEAKER) (test tlnf=707) 29.7 % 34.1-44.9 MEAN CORPUSCULAR VOLUME (BEAKER) (test dces=819) 84.1 fL 79.4-94.8 MEAN CORPUSCULAR HEMOGLOBIN (BEAKER) (test 26.1 pg 25.6-32.2 kjwl=294) MEAN CORPUSCULAR HEMOGLOBIN CONC (BEAKER) (test 31.0 GM/DL 32.2-35.5 qwxz=268) RED CELL DISTRIBUTION WIDTH (BEAKER) (test 18.8 % 11.7-14.4 hlnu=207) PLATELET COUNT (BEAKER) (test gcio=650) 337 K/CU MM 150-450 MEAN PLATELET VOLUME (BEAKER) (test vbxt=196) 9.7 fL 9.4-12.3 NUCLEATED RED BLOOD CELLS (BEAKER) (test 0 /100 WBC 0-0 xazw=870)
--- NOTE | 2018-09-15 03:38 | ER ---
Nurse's Notes [facility] Name: Dayami Espinosa Age: 48 yrs Sex: Female : 1970 Arrival Date: 09/15/2018 Time: 02:57 Bed 7 Private MD: Diagnosis: Benign paroxysmal vertigo;Homelessness Presentation: 09/15 03:04 Presenting complaint: Patient states: dizziness X2 days. [facility] employee called EMS ak1 for pt. pt was at [facility], not shopping. pt with steady gait from EMS stretcher to ER stretcher. Transition of care: patient was not received from another setting of care. Onset of symptoms was September 13, 2018. Risk Assessment: Do you want to hurt yourself or someone else? Patient reports no desire to harm self or others. Initial Sepsis Screen: Does the patient meet any 2 criteria? No. Patient's initial sepsis screen is negative. Does the patient have a suspected source of infection? No. Patient's initial sepsis screen is negative. Care prior to arrival: None. 03:04 Acuity: JAZMIN 3 ak1 03:04 Method Of Arrival: EMS: [facility] ak1 Triage Assessment: 03:13 General: Appears in no apparent distress. Behavior is calm, cooperative, drowsy, pt ak1 requesting blankets and sleeping. Pain: Denies pain. EENT: No signs and/or symptoms were reported regarding the EENT system. Neuro: Level of Consciousness is awake, alert, obeys commands, Oriented to person, place, time, situation, Hoe Runner are equal bilaterally Moves all extremities. Gait is steady, Speech is normal, Facial symmetry appears normal. Cardiovascular: No deficits noted. Respiratory: No deficits noted. GI: No signs and/or symptoms were reported involving the gastrointestinal system. : No signs and/or symptoms were reported regarding the genitourinary system. Derm: No signs and/or symptoms reported regarding the dermatologic system. Musculoskeletal: No signs and/or symptoms reported regarding the musculoskeletal system. 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 - Social history:: Smoking status: Patient uses tobacco products, smokes one pack cigarettes per day. - Ebola Screening: : No symptoms or risks identified at this time. Screenin:15 Abuse screen: Denies threats or abuse. Denies injuries from another. Nutritional ak1 screening: No deficits noted. Tuberculosis screening: No symptoms or risk factors identified. Fall Risk None identified. Assessment: 03:16 Reassessment: Patient appears in no apparent distress at this time. No changes from ak1 previously documented assessment. see triage assessment. 03:42 Reassessment: pt resting with eyes closed, resp even and unlabored. ak1 04:37 General: Appears in no apparent distress. comfortable. Pain: Unable to use pain scale. ak1 pt appears to be sleeping. Neuro: No deficits noted. Cardiovascular: No deficits noted. Respiratory: No deficits noted. GI: No signs and/or symptoms were reported involving the gastrointestinal system. : No signs and/or symptoms were reported regarding the genitourinary system. EENT: No signs and/or symptoms were reported regarding the EENT system. Derm: No signs and/or symptoms reported regarding the dermatologic system. Musculoskeletal: No signs and/or symptoms reported regarding the musculoskeletal system. 05:37 Reassessment: Patient appears in no apparent distress at this time. No changes from ak1 previously documented assessment. 05:59 Reassessment: pt awake and ambulated with steady gait to ER restroom. ak1 06:05 Reassessment: pt given juice and crackers upon request. ak1 Vital Signs: 03:04 BP 108 / 77; Pulse 78; Resp 14; Temp 98.7(TE); Pulse Ox 100% on R/A; Weight 48.53 kg ak1 (R); Height 5 ft. 3 in. (160.02 cm) (R); Pain 4/10; 03:42 BP 102 / 67; Pulse 77; Resp 12; Temp 98.8(TE); Pulse Ox 97% on R/A; ak1 04:37 BP 103 / 67; Pulse 72; Resp 12; Pulse Ox 99% on R/A; ak1 05:38 BP 107 / 71; Pulse 71; Resp 12; Pulse Ox 99% on R/A; Pain 0/10; ak1 03:04 Body Mass Index 18.95 (48.53 kg, 160.02 cm) ak1 ED Course: 02:57 Patient arrived in ED. tl2 02:59 Oliver Kaye MD is Attending Physician. 03:03 Marcia Maciel, RN is Primary Nurse. ak1 03:11 Triage completed. ak1 03:13 Arm band placed on Patient placed in an exam room, on a stretcher, on pulse oximetry, ak1 Patient notified of wait time. 03:15 Patient has correct armband on for positive identification. Bed in low position. Call ak1 light in reach. Side rails up X2. Adult w/ patient. Pulse ox on. NIBP on. 04:45 No provider procedures requiring assistance completed. Patient did not have IV access ak1 during this emergency room visit. 05:37 Appears to be sleeping. ak1 Administered Medications: No medications were administered Outcome: 03:38 Discharge ordered by . 05:59 Discharged to home ambulatory. ak1 05:59 Condition: good 05:59 Discharge instructions given to patient. 06:15 Patient left the ED. ak1 Signatures: Marcia Maciel RN RN ak1 Lexis Hernandez RN RN tl2 Oliver Kaye MD MD
--- NOTE | 2018-09-15 03:38 | EDPHYS ---
Physician Documentation [facility] Name: Dayami sEpinosa Age: 48 yrs Sex: Female : 1970 Arrival Date: 09/15/2018 Time: 02:57 Bed 7 Private MD: ED Physician Oliver Kaye HPI: 09/15 03:33 This 48 yrs old Female presents to ER via EMS with unknown complaint. gs 03:33 The patient presents with dizziness. Onset: The symptoms/episode began/occurred gs yesterday. Modifying factors: the symptoms are aggravated by movement of head. Associated signs and symptoms: Pertinent positives: nausea. Severity of symptoms: At their worst the symptoms were moderate in the emergency department the symptoms are unchanged. The patient has experienced similar episodes in the past, a few times. 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 - Social history:: Smoking status: Patient uses tobacco products, smokes one pack cigarettes per day. - Ebola Screening: : No symptoms or risks identified at this time. ROS: 03:33 All other systems are negative. gs Exam: 03:33 Head/Face: Normocephalic, atraumatic. Eyes: Pupils equal round and reactive to light, gs extra-ocular motions intact. Lids and lashes normal. Conjunctiva and sclera are non-icteric and not injected. Cornea within normal limits. Periorbital areas with no swelling, redness, or edema. ENT: Nares patent. No nasal discharge, no septal abnormalities noted. Tympanic membranes are normal and external auditory canals are clear. Oropharynx with no redness, swelling, or masses, exudates, or evidence of obstruction, uvula midline. Mucous membranes moist. Neck: Trachea midline, no thyromegaly or masses palpated, and no cervical lymphadenopathy. Supple, full range of motion without nuchal rigidity, or vertebral point tenderness. No Meningismus. Chest/axilla: Normal chest wall appearance and motion. Nontender with no deformity. No lesions are appreciated. Cardiovascular: Regular rate and rhythm with a normal S1 and S2. No gallops, murmurs, or rubs. Normal PMI, no JVD. No pulse deficits. Respiratory: Lungs have equal breath sounds bilaterally, clear to auscultation and percussion. No rales, rhonchi or wheezes noted. No increased work of breathing, no retractions or nasal flaring. Abdomen/GI: Soft, non-tender, with normal bowel sounds. No distension or tympany. No guarding or rebound. No evidence of tenderness throughout. Back: No spinal tenderness. No costovertebral tenderness. Full range of motion. Skin: Warm, dry with normal turgor. Normal color with no rashes, no lesions, and no evidence of cellulitis. MS/ Extremity: Pulses equal, no cyanosis. Neurovascular intact. Full, normal range of motion. Neuro: Awake and alert, GCS 15, oriented to person, place, time, and situation. Cranial nerves II-XII grossly intact. Motor strength 5/5 in all extremities. Sensory grossly intact. Cerebellar exam normal. Normal gait. 03:33 Constitutional: The patient appears alert, awake. Vital Signs: 03:04 BP 108 / 77; Pulse 78; Resp 14; Temp 98.7(TE); Pulse Ox 100% on R/A; Weight 48.53 kg ak1 (R); Height 5 ft. 3 in. (160.02 cm) (R); Pain 4/10; 03:42 BP 102 / 67; Pulse 77; Resp 12; Temp 98.8(TE); Pulse Ox 97% on R/A; ak1 04:37 BP 103 / 67; Pulse 72; Resp 12; Pulse Ox 99% on R/A; ak1 05:38 BP 107 / 71; Pulse 71; Resp 12; Pulse Ox 99% on R/A; Pain 0/10; ak1 03:04 Body Mass Index 18.95 (48.53 kg, 160.02 cm) ak1 MDM: 03:06 Patient medically screened. 03:33 Differential diagnosis: idiopathic dizziness, vertigo. Data reviewed: vital signs, nurses notes. Response to treatment: the patient's symptoms have markedly improved after treatment, and as a result, I will discharge patient. Administered Medications: No medications were administered Disposition: 09/15/18 03:38 Discharged to Home. Impression: Benign paroxysmal vertigo, Homelessness. - Condition is Stable. - Discharge Instructions: Benign Positional Vertigo. - Medication Reconciliation Form, Thank You Letter, Antibiotic Education, Prescription Opioid Use form. - Follow up: Private Physician; When: 2 - 3 days; Reason: Re-evaluation by your physician. Signatures: Marcia Maciel RN RN ak1 Oliver Kaye MD MD gs Corrections: (The following items were deleted from the chart) 06:15 03:38 09/15/2018 03:38 Discharged to Home. Impression: Benign paroxysmal vertigo; ak1 Homelessness. Condition is Stable. Forms are Medication Reconciliation Form, Thank You Letter, Antibiotic Education, Prescription Opioid Use. Follow up: Private Physician; When: 2 - 3 days; Reason: Re-evaluation by your physician.
== END 2018-09-15 06:15 | disposition home or self-care (01) ==
LOC: ER 02:52
DX: H81.10 Benign paroxysmal vertigo, unspecified ear (principal); Z59.0 Homelessness; F17.210 Nicotine dependence, cigarettes, uncomplicated; F31.70 Bipolar disorder, currently in remission, most recent episode unspecified; Z88.1 Allergy status to other antibiotic agents; Z88.8 Allergy status to other drugs, medicaments and biological substances
CPT/HCPCS: 99283

== ENCOUNTER 2018-10-06 20:49 | Emergency (ER) | payer SELFPAY ==
--- OUTSIDE RECORDS SUMMARY | 2018-10-06 20:52 | XMS REPORT | Clinical Summary ---
:1970 Author Organization [facility] Address [address] [place] [address] Care Team Providers Name Role Phone Asked, [...] INFLUENZA VACCINE 11/02/2018 Results Not on fileafter 10/05/2017 Advance Directives Patient has advance care planning documents on file. For more information, please contact:[facility] [place] [address]
--- OUTSIDE RECORDS SUMMARY | 2018-10-06 20:52 | XMS REPORT | Clinical Summary ---
:1970 Author Organization [facility] Address [address] [place] [address] Care Team Providers Name Role Phone Pcp, [...] Vasquez ENDOSCOPY,CAPSULE MD Mack 09/03/2018 Travel 09/02/2018 [facility] Internal Shaila Medina Colitis; - Encounter Medicine MD Jo Iron deficiency anemia, unspecified iron deficiency anemia type; 09/06/2018 Patel Valenzuela Bipolar 1 disorder (HCC); MD Mike Enteritis Lesli Arzate MD Vernon, Kimberly Ann, MD 09/02/2018 Travel after 10/05/2017 Social History Tobacco Use Types Packs/Day Years [...] procedure are in the results section. after 10/05/[address] abdomen/pelvis with IV contrast (09/05/2018 6:35 PM CDT) Specimen Narrative Performed At FINAL REPORT [employer] TECHNIQUE: CT of the abdomen and pelvis [...] MD Report Verified Date/Time:09/05/2018 19:42:13 Reading Location: [id number] Consult Reading Room Procedure Note Interface, [...] Report Verified Date/Time: 09/05/2018 19:42:13 Reading Location: [address] Consult Reading Room Performing Organization Address City/State/Zipcode Phone Number [employer] XR abdomen / KUB 1 view (09/05/2018 1:08 PM CDT) Specimen Narrative Performed At Addendum Begins [employer] RIS REPORT STATUS:A Addendum: The video capsule is seen projected over the right iliac wing. It could be in the distal ileum versus large bowel. If in exact location is needed. CT scan will be necessary. End of addendum. Signed: Reza Lira MD Report Verified Date/Time:09/05/2018 15:30:35 Reading Location: [facility] Radiology Reading Room Addendum Ends FINAL REPORT TECHNIQUE: Supine radiograph of the abdomen dated 09/05/2018 HISTORY: Evaluate for retained video capsule. COMPARISON: None IMPRESSION: No air-filled, dilated loops of bowel to suggest obstruction. No free intraperitoneal air. No abnormal soft tissue mass. No radiodense foreign body visualized. Bones are unremarkable. Signed: Reza Lira MD Report Verified Date/Time:09/05/2018 14:53:33 Reading Location: [facility] Radiology Reading Room Procedure Note Interface, External [...] Report Verified Date/Time: 09/05/2018 15:30:35 Reading Location: [facility] Radiology Reading Room Addendum Ends FINAL REPORT TECHNIQUE: Supine radiograph of the abdomen dated 09/05/2018 HISTORY: Evaluate for retained video capsule. COMPARISON: None IMPRESSION: No air-filled, dilated loops of bowel to suggest obstruction. No free intraperitoneal air. No abnormal soft tissue mass. No radiodense foreign body visualized. Bones are unremarkable. Signed: Reza Lira MD Report Verified Date/Time: 09/05/2018 14:53:33 Reading Location: [facility] Radiology Reading Room Performing Organization Address City/State/Zipcode Phone Number GE RIS CBC (Hemogram only) (09/05/2018 5:03 AM CDT)Only the most recent of3 resultswithin the time period is included. WBC 7.3 3.5 - 10.5 K/L [facility] RBC 3.92 (L) 3.93 - 5.22 M/L [facility] Hemoglobin 10.2 (L) 11.2 - 15.7 GM/DL [facility] Hematocrit 33.0 (L) 34.1 - 44.9 % [facility] MCV 84.2 79.4 - 94.8 fL [facility] MCH 26.0 25.6 - 32.2 pg [facility] MCHC 30.9 (L) 32.2 - 35.5 GM/DL [facility] RDW 18.8 (H) 11.7 - 14.4 % [facility] Platelets 380 150 - 450 K/CU MM [facility] MPV 10.3 9.4 - 12.3 fL [facility] nRBC 0 0 - 0 /100 WBC [facility] Specimen Blood Performing Organization Address City/State/Zipcode Phone Number [facility] [address] [place] [address] CENTER Basic metabolic panel (09/05/2018 5:03 AM CDT)Only the most recent of3 resultswithin the time period is included. Sodium 138 136 - 145 meq/L [facility] Potassium 4.3 3.5 - 5.1 meq/L [facility] Chloride 110 (H) 98 - 107 meq/L [facility] CO2 23 22 - 29 meq/L [facility] BUN 8 7 - 21 mg/dL [facility] Creatinine 0.66 0.57 - 1.25 mg/dL [facility] Glucose 107 (H) 70 - 105 mg/dL [facility] Calcium 9.0 8.4 - 10.2 mg/dL [facility] EGFR 95Comment: ESTIMATED GFR IS mL/min/1.73 sq m [facility] NOT ACCURATE CREATININE [facility] CLEARANCE IN PREDICTING GLOMERULAR FILTRATION RATE. ESTIMATED GFR IS NOT APPLICABLE FOR DIALYSIS PATIENTS. Specimen Blood Performing Organization Address City/State/Zipcode Phone Number [facility] [address] [place], [place] [id number] CECIL Celiac Disease Panel (09/04/2018 5:46 PM CDT) Scan Result [facility] Celiac Disease Profile Refer to Celiac [facility] results. Specimen Blood Narrative Performed At Performing Organization Address City/State/Zipcode Phone Number [place] [address] [facility]ORPORATED [address] [facility] C-Reactive Protein (09/04/2018 5:46 PM CDT) CRP 0.38 0.00 - 0.50 mg/dL [facility] Specimen Blood Performing Organization Address City/State/Zipcode Phone Number [facility] [address] [place] [address] [phone] CENTER GI Pathogen Profile by PCR -ID Only (09/04/2018 5:37 PM CDT) CAMPYLOBACTER (PCR) Not detected Not detected [facility] PLESIOMONAS SHIGELLOIDES (PCR) Not detected Not detected [facility] MEDICAL CECIL SALMONELLA (PCR) Not detected Not detected [facility] MEDICAL CECIL YERSINIA ENTEROCOLITICA (PCR) Not detected Not detected [facility] VIBRIO CHOLERAE (PCR) Not detected Not detected [facility] ENTEROAGGREGATIVE E. COLI (EAEC) Not detected Not detected [facility] BY PCR MEDICAL CENTER ENTEROPATHOGENIC E. COLI (EPEC) BY Not detected Not detected [facility] PCR MEDICAL CENTER ENTEROTOXIGENIC E. COLI (ETEC) Not detected Not detected [facility] LT/ST BY PCR [facility] SHIGA-LIKE TOXIN-PRODUCING E. COLI Not detected Not detected [facility] (STEC) STX1/STX2 [facility] E. COLI O157 (PCR) Not detected [facility] SHIGELLA/ENTEROINVASIVE E. COLI Not detected Not detected [facility] (EIEC) BY PCR [facility] CRYPTOSPORIDIUM (PCR) Not detected Not detected [facility] CYCLOSPORA CAYETANENSIS (PCR) Not detected Not detected [facility] ENTAMOEBA HISTOLYTICA (PCR) Not detected Not detected [facility] GIARDIA LAMBLIA (PCR) Not detected Not detected [facility] ADENOVIRUS F 40/41 (PCR) Not detected Not detected [facility] ASTROVIRUS (PCR) Not detected Not detected [facility] NOROVIRUS GI/GII (PCR) Not detected Not detected [facility] ROTAVIRUS A (PCR) Not detected Not detected [facility] SAPOVIRUS (I, II, IV, V) BY PCR Not detected Not detected [facility] VIBRIO (PARAHAEMOLYTICUS, Not detected Not detected [facility] VULNIFICUS) [facility] Specimen Stool Narrative Performed At Other viruses, parasites and bacteria not [facility] targeted by this PCR panel cannot be excluded; therefore clinical correlation and follow up of serology, culture results, and other molecular studies is required. The results are not intended to be used as the sole means for clinical diagnosis or patient management decisions. This sample was tested at the [facility] using the [employer] Gastrointestinal Panel. It is FDA cleared and has been verified and approved by the [facility] for clinical use. This laboratory is CLIA-certified and [employer] ([employer])-accredited to perform high complexity testing. Performing Organization Address City/State/Zipcode Phone Number [facility] [address] [place] [address] CENTER H. pylori antigen, stool (09/04/2018 5:37 [...] Lab [facility] *S[facility], [address] [place] [phone] Juan Mak MD, PhD Performing Organization Address City/State/Zipcode Phone Number [facility] [place] [address] [facility] [address] [facility] Iron, TIBC, % sat. (without ferritin) (09/04/2018 3:59 AM CDT) Iron 15.0 (L) 40.0 - 160.0 ug/dL [facility] TIBC 274 250 - 450 ug/dL [facility] Iron % Saturation 5 (L) 20 - 55 % [facility] Specimen Blood Performing Organization Address [facility] Phone Number [address] [address] CENTER Reticulocyte count (09/04/2018 3:59 AM CDT) % Retic 1.1 0.5 - 1.7 % [facility] Specimen Blood Performing Organization Address [facility] Phone Number [address] [address] [phone] CENTER Ferritin (09/04/2018 3:59 AM CDT) Ferritin 13 5 - 275 ng/mL [facility] Specimen Blood Performing Organization Address [facility] Phone Number [address] [address] [phone] CECIL Screen, urine (09/03/2018 2:16 PM CDT) Preg Test, Ur Negative [facility] Specimen Urine Performing Organization Address City/State/Zipcode Phone Number [facility] [address] [place] [address] [phone] CENTER after 10/05/2017 Advance Directives For more information, please contact:[address] [phone] Code Status Date Activated Date Inactivated Comments Full Code 09/02/2018 9:07 PM 09/06/2018 2:52 PM This code status was determined by: Patient
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
--- OUTSIDE RECORDS SUMMARY | 2018-10-06 20:55 | XMS REPORT ---
:1970 [facility] Address [address] [place] [address] Care Team Providers Name Role Phone UNKNOWN, REFFERING Primary Care Provider Unavailable CANDIDA LIZAMAEE Unavailable Unavailable Problems This patient has no known problems. Allergies, Adverse Reactions, Alerts This patient has no known allergies or adverse reactions. Medications This patient has no known medications. Encounters Start End Encounter Admission Attending Care Care Encounter Date/Time Date/Time Type Type Clinicians Facility Department ID 2017-07-02 2017-07-02 Emergency E [facility] [id number] 08:16:00 08:16:00 Results Test Description Test Time Test Comments Text Results Atomic Results Result Comments CELIAC DISEASE PANEL 2018-09-08 08:06:00 Test Item Value Reference Range Comments SCAN RESULT (test [id number]=[id number]) CELIAC DISEASE PROFILE AUTOVERIFICATION Refer to Celiac Disease Panel ([facility]) (test dfei=[id number]) results. CT, [id number] 19:42:00Only need IV contrast, not POFINAL REPORT [...] Verified Date/Time: 09/05/2018 19:42: 13 Reading Location: [facility] C013 Consult Reading Room RAD, ABDOMEN/KUB, 1 VIEW [id number] 15:30:00Reason for exam:->look for retained video capsuleAddendum BeginsREPORT STATUS:A Addendum:The video capsule is seen projected over the right iliac wing. It could be in the distal ileum versus large bowel. If in exact location isneeded. CT scan will be necessary. End of addendum. Signed: Gisele Lira MDReport Verified Date/ Time: 09/05/2018 15:30:35 Reading Location: [facility] Radiology Reading RoomAddendum EndsFINAL REPORT TECHNIQUE: Supine radiograph of the abdomen dated 09/05/2018 HISTORY: Evaluate for retained video capsule. COMPARISON: None IMPRESSION:No air-filled, dilated loops of bowel to suggest obstruction. No free intraperitoneal air. No abnormal soft tissue mass. No radiodense foreign body visualized. Bones are unremarkable. Signed: Gisele Lira MDReport Verified Date/Time: 09/05/2018 14:53:33 Reading Location: [facility] Radiology Reading Room GI PATHOGEN PROFILE BY [id number] 10:43:00 Test Item Value Reference Range Comments CAMPYLOBACTER (PCR) (test hfje=[id number]) Not detected Not detected PLESIOMONAS SHIGELLOIDES (PCR) (test Not detected Not detected qrnk=6896240) SALMONELLA (PCR) (test dbbr=8598706) Not detected Not detected YERSINIA ENTEROCOLITICA (PCR) (test Not detected Not detected jxqi=0552600) VIBRIO CHOLERAE (PCR) (test fxlu=3166394) Not detected Not detected ENTEROAGGREGATIVE E. COLI (EAEC) BY PCR (test Not detected Not detected zjxd=1579163) ENTEROPATHOGENIC E. COLI (EPEC) BY PCR (test Not detected Not detected peke=4192968) ENTEROTOXIGENIC E. COLI (ETEC) LT/ST BY PCR Not detected Not detected (test lcyh=1833330) SHIGA-LIKE TOXIN-PRODUCING E. COLI (STEC) Not detected Not detected STX1/STX2 (test vsof=7551555) E. COLI O157 (PCR) (test oqgz=8888265) Not detected SHIGELLA/ENTEROINVASIVE E. COLI (EIEC) BY PCR Not detected Not detected (test efsq=3784084) CRYPTOSPORIDIUM (PCR) (test yefd=6719340) Not detected Not detected CYCLOSPORA CAYETANENSIS (PCR) (test Not detected Not detected wikp=2732497) ENTAMOEBA HISTOLYTICA (PCR) (test vwux=1479160) Not detected Not detected GIARDIA LAMBLIA (PCR) (test xkzn=1033830) Not detected Not detected ADENOVIRUS F 40/41 (PCR) (test szhv=7342628) Not detected Not detected ASTROVIRUS (PCR) (test hqro=8921298) Not detected Not detected NOROVIRUS GI/GII (PCR) (test leam=1196529) Not detected Not detected ROTAVIRUS A (PCR) (test cqaq=7480880) Not detected Not detected SAPOVIRUS (I, II, IV, V) BY PCR (test Not detected Not detected xdlg=3860234) VIBRIO (PARAHAEMOLYTICUS, VULNIFICUS) (test Not detected Not detected wwrm=7830215) Other viruses, parasites and bacteria not targeted by this PCR panel cannot be excluded; therefore clinical correlation and follow up of serology, culture results, and other molecular studies is required. The results are not intended to be used as the sole means for clinical diagnosis or patient management decisions. This sample was tested at the [facility] using the [place] Direct Gastrointestinal Panel. It is FDA cleared and has been verified and approved by the [facility] for clinical use. This laboratory is CLIA-certified and College ofAmerican Pathologists (CAP)-accredited to perform high complexity testing.BASIC METABOLIC [id number] 05:42:00 Test Item Value Reference Range Comments SODIUM (BEAKER) (test 138 meq/L 136-145 rngn=237) POTASSIUM (BEAKER) (test 4.3 meq/L 3.5-5.1 gusp=611) CHLORIDE (BEAKER) (test 110 meq/L 98-107 zhaw=342) CO2 (BEAKER) (test 23 meq/L 22-29 mwsm=909) BLOOD UREA NITROGEN 8 mg/dL 7-21 (BEAKER) (test viqo=146) CREATININE (BEAKER) (test 0.66 mg/dL 0.57-1.25 ihfn=610) GLUCOSE RANDOM (BEAKER) 107 mg/dL 70-105 (test hknh=247) CALCIUM (BEAKER) (test 9.0 mg/dL 8.4-10.2 gkkv=005) EGFR (BEAKER) (test 95 mL/min/1.73 sq m ESTIMATED GFR IS NOT litw=4873) ACCURATE CREATININE CLEARANCE IN PREDICTING GLOMERULAR FILTRATION RATE. ESTIMATED GFR IS NOT APPLICABLE FOR DIALYSIS PATIENTS. CBC (HEMOGRAM ONLY)2018-09-05 05:23:00 Test Item Value Reference Range Comments WHITE BLOOD CELL COUNT (BEAKER) (test gfvx=840) 7.3 K/ L 3.5-10.5 RED BLOOD CELL COUNT (BEAKER) (test mxie=236) 3.92 M/ L 3.93-5.22 HEMOGLOBIN (BEAKER) (test kvym=311) 10.2 GM/DL 11.2-15.7 HEMATOCRIT (BEAKER) (test mcix=257) 33.0 % 34.1-44.9 MEAN CORPUSCULAR VOLUME (BEAKER) (test qssl=049) 84.2 fL 79.4-94.8 MEAN CORPUSCULAR HEMOGLOBIN (BEAKER) (test 26.0 pg 25.6-32.2 eycz=530) MEAN CORPUSCULAR HEMOGLOBIN CONC (BEAKER) (test 30.9 GM/DL 32.2-35.5 viwd=567) RED CELL DISTRIBUTION WIDTH (BEAKER) (test 18.8 % 11.7-14.4 gghe=156) PLATELET COUNT (BEAKER) (test umrc=927) 380 K/CU MM 150-450 MEAN PLATELET VOLUME (BEAKER) (test zxlb=088) 10.3 fL 9.4-12.3 NUCLEATED RED BLOOD CELLS (BEAKER) (test 0 /100 WBC 0-0 wlfr=857) C-REACTIVE [id number] 18:59:00 Test Item Value Reference Range Comments C-REACTIVE PROTEIN (BEAKER) (test zgyn=635) 0.38 mg/dL 0.00-0.50 [id number] 05:48:00 Test Item Value Reference Range Comments FERRITIN (BEAKER) (test xvoi=003) 13 ng/mL 5-275 BASIC METABOLIC [id number] 05:27:00 Test Item Value Reference Range Comments SODIUM (BEAKER) (test 139 meq/L 136-145 fzzo=409) POTASSIUM (BEAKER) (test 4.0 meq/L 3.5-5.1 vyyp=277) CHLORIDE (BEAKER) (test 112 meq/L 98-107 uvae=637) CO2 (BEAKER) (test 23 meq/L 22-29 lxkt=081) BLOOD UREA NITROGEN 3 mg/dL 7-21 (BEAKER) (test gvue=698) CREATININE (BEAKER) (test 0.62 mg/dL 0.57-1.25 lxzu=224) GLUCOSE RANDOM (BEAKER) 91 mg/dL 70-105 (test hkbj=151) CALCIUM (BEAKER) (test 8.4 mg/dL 8.4-10.2 cxsr=150) EGFR (BEAKER) (test 102 mL/min/1.73 sq m ESTIMATED GFR IS NOT inkk=6893) ACCURATE CREATININE CLEARANCE IN PREDICTING GLOMERULAR FILTRATION RATE. ESTIMATED GFR IS NOT APPLICABLE FOR DIALYSIS PATIENTS. IRON, TIBC, % SAT. (WITHOUT FERRITIN)2018-09-04 05:26:00 Test Item Value Reference Range Comments IRON (BEAKER) (test bpdd=809) 15.0 ug/dL 40.0-160.0 TOTAL IRON BINDING CAPACITY (BEAKER) (test 274 ug/dL 250-450 pcgl=670) IRON % SATURATION (2) (BEAKER) (test ucnb=3166) 5 % 20-55 CBC (HEMOGRAM ONLY)2018-09-04 05:05:00 Test Item Value Reference Range Comments WHITE BLOOD CELL COUNT (BEAKER) (test pvxu=427) 5.9 K/ L 3.5-10.5 RED BLOOD CELL COUNT (BEAKER) (test jnht=365) 3.67 M/ L 3.93-5.22 HEMOGLOBIN (BEAKER) (test vwjm=868) 9.8 GM/DL 11.2-15.7 HEMATOCRIT (BEAKER) (test tios=214) 30.7 % 34.1-44.9 MEAN CORPUSCULAR VOLUME (BEAKER) (test ukxq=294) 83.7 fL 79.4-94.8 MEAN CORPUSCULAR HEMOGLOBIN (BEAKER) (test 26.7 pg 25.6-32.2 jmzp=585) MEAN CORPUSCULAR HEMOGLOBIN CONC (BEAKER) (test 31.9 GM/DL 32.2-35.5 chsy=850) RED CELL DISTRIBUTION WIDTH (BEAKER) (test 18.9 % 11.7-14.4 zyvu=541) PLATELET COUNT (BEAKER) (test ytfc=757) 361 K/CU MM 150-450 MEAN PLATELET VOLUME (BEAKER) (test ghsb=437) 10.3 fL 9.4-12.3 NUCLEATED RED BLOOD CELLS (BEAKER) (test 0 /100 WBC 0-0 amif=194) RETICULOCYTE [id number] 05:05:00 Test Item Value Reference Range Comments RETICULOCYTE COUNT PCT (BEAKER) (test xaif=761) 1.1 % 0.5-1.7 SCREEN, [id number] 15:17:00 Test Item Value Reference Range Comments TEST URINE (BEAKER) (test sykt=555) Negative BASIC METABOLIC [id number] 04:53:00 Test Item Value Reference Range Comments SODIUM (BEAKER) (test 136 meq/L 136-145 fqki=866) POTASSIUM (BEAKER) (test 3.8 meq/L 3.5-5.1 hxrx=627) CHLORIDE (BEAKER) (test 109 meq/L 98-107 iyhv=901) CO2 (BEAKER) (test 24 meq/L 22-29 mfii=478) BLOOD UREA NITROGEN 5 mg/dL 7-21 (BEAKER) (test amaf=060) CREATININE (BEAKER) (test 0.60 mg/dL 0.57-1.25 ibsy=593) GLUCOSE RANDOM (BEAKER) 88 mg/dL 70-105 (test vlzp=440) CALCIUM (BEAKER) (test 8.3 mg/dL 8.4-10.2 hijs=615) EGFR (BEAKER) (test 106 mL/min/1.73 sq m ESTIMATED GFR IS NOT gocc=5652) ACCURATE CREATININE CLEARANCE IN PREDICTING GLOMERULAR FILTRATION RATE. ESTIMATED GFR IS NOT APPLICABLE FOR DIALYSIS PATIENTS. CBC (HEMOGRAM ONLY)2018-09-03 04:33:00 Test Item Value Reference Range Comments WHITE BLOOD CELL COUNT (BEAKER) (test svui=683) 5.8 K/ L 3.5-10.5 RED BLOOD CELL COUNT (BEAKER) (test ljfc=475) 3.53 M/ L 3.93-5.22 HEMOGLOBIN (BEAKER) (test rmjl=220) 9.2 GM/DL 11.2-15.7 HEMATOCRIT (BEAKER) (test xjug=513) 29.7 % 34.1-44.9 MEAN CORPUSCULAR VOLUME (BEAKER) (test mhwv=371) 84.1 fL 79.4-94.8 MEAN CORPUSCULAR HEMOGLOBIN (BEAKER) (test 26.1 pg 25.6-32.2 sjwj=183) MEAN CORPUSCULAR HEMOGLOBIN CONC (BEAKER) (test 31.0 GM/DL 32.2-35.5 ntpw=872) RED CELL DISTRIBUTION WIDTH (BEAKER) (test 18.8 % 11.7-14.4 ncmp=431) PLATELET COUNT (BEAKER) (test esvp=520) 337 K/CU MM 150-450 MEAN PLATELET VOLUME (BEAKER) (test yabq=607) 9.7 fL 9.4-12.3 NUCLEATED RED BLOOD CELLS (BEAKER) (test 0 /100 WBC 0-0 mlju=578)
[2018-10-06 22:00] LABS: Absolute Lymphocytes (CBC) 2.3 K/uL (0.7-4.9); Basophils % 0.6 % (0-1.3); Eosinophils % 1.6 % (0-4.4); Hematocrit 34.5 % (36.0-45.0); Lymphocytes % 35.6 % (15.3-44.8); MPV 8.5 fL (7.6-11.3); Monocytes % 8.2 % (3.3-12.3); RBC Red Blood Cell Count 4.27 M/uL (3.86-4.86)
[2018-10-06 22:11] LABS: Urine Blood TRACE (NEG); Urine Glucose NEGATIVE (NEG); Urine Protein NEGATIVE (NEG); Urine pH 6.5 (5.0-7.0)
[2018-10-06 23:28] LABS: ALT/SGPT 16 U/L (12-78); AST/SGOT 14 U/L (15-37); Albumin 3.4 g/dL (3.4-5.0); Alkaline Phosphatase 45 U/L (45-117); BUN Blood Urea Nitrogen 5 mg/dL (7-18); Bicarbonate 26 mmol/L (21-32); Bilirubin Direct < 0.1 mg/dL (0-0.2); Bilirubin Total 0.4 mg/dL (0.2-1.0); Glucose Level 86 mg/dL (74-106); Lipase 124 U/L (73-393); Potassium 3.3 mmol/L (3.5-5.1); Protein, Total 6.5 g/dL (6.4-8.2); Sodium Level 142 mmol/L (136-145)
--- NOTE | 2018-10-07 00:37 | ER ---
Nurse's Notes [facility] Name: Dayami Espinosa Age: 48 yrs Sex: Female : 1970 Arrival Date: 10/06/2018 Time: 21:01 Bed 18 Private MD: Diagnosis: Unspecified abdominal pain Presentation: 10/06 21:06 Presenting complaint: Patient states: Reports generalized abdominal pain since being aj "scoped" 4 weeks ago that "I still haven't passed". Patient' believe that she has a pill camera inside her. Patient presents to Triage with 44 oz soft drink. Patient seen in [facility] for this same complaint. Transition of care: patient was not received from another setting of care. Onset of symptoms was October 06, 2018. Risk Assessment: Do you want to hurt yourself or someone else? Patient reports no desire to harm self or others. Initial Sepsis Screen: Does the patient meet any 2 criteria? No. Patient's initial sepsis screen is negative. Does the patient have a suspected source of infection? No. Patient's initial sepsis screen is negative. Care prior to arrival: None. 21:06 Method Of Arrival: Ambulatory 21:06 Acuity: JAZMIN 3 Triage Assessment: 21:08 General: Appears in no apparent distress. comfortable, Behavior is calm, cooperative, aj appropriate for age. Pain: Complains of pain in abdomen. Neuro: Level of Consciousness is awake, alert, obeys commands, Oriented to person, place, time, situation, Appropriate for age. Respiratory: Airway is patent Respiratory effort is even, unlabored, Respiratory pattern is regular, symmetrical. GI: Reports lower abdominal pain, upper abdominal pain. Derm: Skin is intact, is healthy with good turgor, Skin is pink, warm \\T\\ dry. normal. 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 - Social history:: Smoking status: Patient/guardian denies using tobacco. - Ebola Screening: : Patient negative for fever greater than or equal to 101.5 degrees Fahrenheit, and additional compatible Ebola Virus Disease symptoms Patient denies exposure to infectious person Patient denies travel to an Ebola-affected area in the 21 days before illness onset No symptoms or risks identified at this time. Screenin:35 Abuse screen: Denies threats or abuse. Denies injuries from another. Nutritional ak1 screening: No deficits noted. Tuberculosis screening: No symptoms or risk factors identified. Fall Risk None identified. Assessment: 21:54 General: Appears in no apparent distress. Behavior is calm, cooperative, drowsy. Pain: ak1 Denies pain. Neuro: Level of Consciousness is awake, alert, obeys commands, Oriented to person, place, time, situation, Freight Dispatcher are equal bilaterally Moves all extremities. Gait is steady, Speech is normal, Facial symmetry appears normal. Cardiovascular: No deficits noted. Respiratory: No deficits noted. GI: Abdomen is flat, non-distended, Bowel sounds present X 4 quads. Abd is soft and non tender X 4 quads. : No signs and/or symptoms were reported regarding the genitourinary system. EENT: No signs and/or symptoms were reported regarding the EENT system. Derm: No signs and/or symptoms reported regarding the dermatologic system. Musculoskeletal: No signs and/or symptoms reported regarding the musculoskeletal system. 23:49 Reassessment: Patient appears in no apparent distress at this time. No changes from ak1 previously documented assessment. Patient and/or family updated on plan of care and expected duration. Pain level reassessed. Patient is alert, oriented x 3, equal unlabored respirations, skin warm/dry/pink. Vital Signs: 21:08 BP 146 / 78; Pulse 85; Resp 16; Temp 98.4; Pulse Ox 98% on R/A; Weight 48.08 kg; Height aj 5 ft. 3 in. (160.02 cm); 21:40 BP 101 / 73 LA Supine (auto/reg); Pulse 78; Resp 16; Pulse Ox 99% on R/A; ak1 21:48 BP 115 / 73 LA Sitting (auto/reg); Pulse 78; Resp 16; Pulse Ox 99% ; ak1 21:52 BP 111 / 83 LA Standing (auto/reg); Pulse 80; Resp 16; Pulse Ox 99% on R/A; ak1 10/07 00:43 BP 100 / 73; Pulse 62; Resp 16; Temp 98.3(O); Pulse Ox 100% on R/A; ag4 10/06 21:08 Body Mass Index 18.78 (48.08 kg, 160.02 cm) ED Course: 10/06 21:01 Patient arrived in ED. es 21:08 Triage completed. aj 21:08 Arm band placed on right wrist. Patient placed in an exam room. aj 21:30 Darrell Bardales PA is PHCP. cp 21:30 Derrek Martines MD is Attending Physician. cari 21:34 Marcia Maciel, RN is Primary Nurse. ak1 21:35 Patient has correct armband on for positive identification. Placed in gown. Bed in low ak1 position. Call light in reach. Side rails up X2. Pulse ox on. NIBP on. 21:54 Missed attempt(s): 22 gauge in right forearm. Bleeding controlled, band aid applied, ak1 catheter tip intact. 23:30 XRAY Abdomen With Erect In Process Unspecified. EDMS 10/07 00:50 No provider procedures requiring assistance completed. Patient did not have IV access ak1 during this emergency room visit. Administered Medications: 10/06 22:42 Not Given (Physician Discretion): NS 0.9% 1000 ml IV at 1 bolus Per protocol; 1000 mL ak1 bolus 10/07 00:49 Not Given (Patient Refused): Potassium Effervescent Tablet 50 mEq PO once; dissolve in ak1 4 ounces of water or juice Outcome: 00:36 Discharge ordered by MD. cp 00:50 Discharged to home via wheelchair, pt with steady gait to wheelchair for discharge. ak1 00:50 Condition: improved 00:50 Discharge instructions given to patient, Instructed on discharge instructions, follow up and referral plans. Demonstrated understanding of instructions, follow-up care. 00:51 Patient left the ED. ak1 Signatures: Dispatcher [employer] EDEm Rea RN RN aj Salyer, Edna es Krenek, Amber, RN RN [facility] Darrell Bardales PA PA cp Guzman, Adan banner
--- NOTE | 2018-10-07 00:38 | EDPHYS ---
Physician Documentation [facility] Name: Dayami Espinosa Age: 48 yrs Sex: Female : 1970 Arrival Date: 10/06/2018 Time: 21:01 Bed 18 Private MD: ED Physician Derrek Martines HPI: 10/06 21:45 This 48 yrs old Female presents to ER via Ambulatory with complaints of cp Abdominal Pain, Dizziness. 21:45 The patient presents with abdominal pain constipation. cp 21:45 Onset: The symptoms/episode began/occurred 4 week(s) ago. cp 21:45 The symptoms do not radiate. Associated signs and symptoms: Pertinent positives: cp constipation, Pertinent negatives: anorexia, blood in stools, chest pain, diarrhea, dysuria, fever, headache, vomiting. Severity of pain: in the emergency department the pain is unchanged despite home interventions. 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 - Social history:: Smoking status: Patient/guardian denies using tobacco. - Ebola Screening: : Patient negative for fever greater than or equal to 101.5 degrees Fahrenheit, and additional compatible Ebola Virus Disease symptoms Patient denies exposure to infectious person Patient denies travel to an Ebola-affected area in the 21 days before illness onset No symptoms or risks identified at this time. ROS: 22:00 Constitutional: Negative for body aches, chills, fever, poor PO intake. cp 22:00 Eyes: Negative for injury, pain, redness, and discharge. cp Exam: 22:15 Constitutional: The patient appears in no acute distress, alert, awake, non-toxic, well cp developed, well nourished. 22:15 Head/Face: Normocephalic, atraumatic. cp 22:15 Eyes: Periorbital structures: appear normal, Conjunctiva: normal, no exudate, no cp injection, Sclera: no appreciated abnormality, Lids and lashes: appear normal, bilaterally. 22:15 ENT: External ear(s): are unremarkable, Nose: is normal, Mouth: is normal, Posterior pharynx: Airway: no evidence of obstruction, patent. 22:15 Chest/axilla: Inspection: normal, Palpation: is normal, no crepitus, no tenderness. 22:15 Cardiovascular: Rate: normal, Rhythm: regular. 22:15 Respiratory: the patient does not display signs of respiratory distress, Respirations: cp normal, no use of accessory muscles, no retractions, no splinting, no tachypnea, labored breathing, is not present, Breath sounds: are clear throughout, no decreased breath sounds, no stridor, no wheezing. 22:15 Abdomen/GI: Inspection: abdomen appears normal, Bowel sounds: active, all quadrants, Palpation: soft, in all quadrants, mild abdominal tenderness, in all quadrants, rebound tenderness, is not appreciated, involuntary guarding, is not appreciated. 22:15 Back: pain, is absent, ROM is normal. 22:15 Skin: no rash present. Vital Signs: 21:08 BP 146 / 78; Pulse 85; Resp 16; Temp 98.4; Pulse Ox 98% on R/A; Weight 48.08 kg; Height aj 5 ft. 3 in. (160.02 cm); 21:40 BP 101 / 73 LA Supine (auto/reg); Pulse 78; Resp 16; Pulse Ox 99% on R/A; ak1 21:48 BP 115 / 73 LA Sitting (auto/reg); Pulse 78; Resp 16; Pulse Ox 99% ; ak1 21:52 BP 111 / 83 LA Standing (auto/reg); Pulse 80; Resp 16; Pulse Ox 99% on R/A; ak1 10/07 00:43 BP 100 / 73; Pulse 62; Resp 16; Temp 98.3(O); Pulse Ox 100% on R/A; ag4 10/06 21:08 Body Mass Index 18.78 (48.08 kg, 160.02 cm) aj MDM: 10/06 21:31 Patient medically screened. cp 10/07 00:35 Data reviewed: vital signs, nurses notes, lab test result(s), radiologic studies, plain cp films. 00:35 Differential diagnosis: bowel obstruction, non-specific abd pain, Ureterolithiasis, cp urinary tract infection. Test interpretation: by ED physician or midlevel provider: xrays of abdomen negative for obstruction of perforation. Response to treatment: There is no appreciated change of the patient's symptoms at this time, patient sleeping in exam room, appears non-toxic, and as a result, I will discharge patient. 10/06 21:31 Order name: Basic Metabolic Panel cp 10/06 21:31 Order name: CBC with Diff cp 10/06 21:31 Order name: Creatinine for Radiology; Complete Time: 00:22 cp 10/06 21:31 Order name: Hepatic Function; Complete Time: 00:22 cp 10/06 21:31 Order name: Lipase; Complete Time: 00:22 cp 10/06 21:34 Order name: Basic Metabolic Panel; Complete Time: 00:22 EDMS 10/06 21:31 Order name: Orthostatics; Complete Time: 21:52 cp 10/06 21:31 Order name: Labs collected and sent; Complete Time: 21:52 cp 10/06 21:34 Order name: CBC with Automated Diff; Complete Time: 22:32 EDMS 10/06 22:08 Order name: Urine Dipstick--Ancillary (enter results); Complete Time: 22:32 cm6 10/06 22:33 Order name: XRAY Abdomen With Erect cp 10/06 21:31 Order name: Urine Dipstick-Ancillary (obtain specimen); Complete Time: 21:57 cp 10/06 21:31 Order name: Urine Test (obtain specimen); Complete Time: 21:57 cp Administered Medications: 10/06 22:42 Not Given (Physician Discretion): NS 0.9% 1000 ml IV at 1 bolus Per protocol; 1000 mL ak1 bolus 10/07 00:49 Not Given (Patient Refused): Potassium Effervescent Tablet 50 mEq PO once; dissolve in ak1 4 ounces of water or juice Disposition: 03:37 Co-signature as Attending Physician, Derrek Martines MD. pkl Disposition: 10/07/18 00:36 Discharged to Home. Impression: Unspecified abdominal pain. - Condition is Stable. - Discharge Instructions: Abdominal Pain, Adult, Constipation, Adult. - Medication Reconciliation Form, Thank You Letter, Antibiotic Education, Prescription Opioid Use form. - Follow up: Private Physician; When: 2 - 3 days; Reason: Recheck today's complaints. - Problem is new. - Symptoms have improved. Signatures: Dispatcher [employer] Em Soria RN Derrek Vaughn MD MD pkl Krenek, Amber, RN RN ak1 Darrell Bardales PA PA cp Corrections: (The following items were deleted from the chart) 00:50 07 21:31 IV Saline Lock ordered. cp ak1 10/07 00:51 00:36 10/07/2018 00:36 Discharged to Home. Impression: Unspecified abdominal pain. ak1 Condition is Stable. Forms are Medication Reconciliation Form, Thank You Letter, Antibiotic Education, Prescription Opioid Use. Follow up: Private Physician; When: 2 - 3 days; Reason: Recheck today's complaints. Problem is new. Symptoms have improved. cp
[2018-10-07] MEDS ORDERED: POTASSIUM 25 MEQ EFFERV TAB ONE (00:47)
--- NOTE | 2018-10-07 11:32 | RAD REPORT ---
EXAM DESCRIPTION: RAD - Abdomen W Erect - 10/06/2018 11:30 pm CLINICAL HISTORY: Abd pain;Constipation Pain COMPARISON: Abdomen W Erect dated 09/11/2018 FINDINGS: The bowel gas pattern is non-obstructive. No evidence of free air or pneumatosis. No suspi cious calcifications. No significant bony findings. The visualized lungs appear clear without evidence of subdiaphragmatic free air. IMPRESSION: Negative examination.
== END 2018-10-07 00:51 | disposition home or self-care (01) ==
LOC: ER 20:49
DX: R10.9 Unspecified abdominal pain (principal); R42 Dizziness and giddiness; D64.9 Anemia, unspecified; F31.9 Bipolar disorder, unspecified; Z88.0 Allergy status to penicillin; Z88.8 Allergy status to other drugs, medicaments and biological substances
CPT/HCPCS: 36415; 74019; 80048; 80076; 81003; 83690; 85025; 99283

== ENCOUNTER 2018-11-10 01:57 | Emergency (ER) | payer SELFPAY ==
--- OUTSIDE RECORDS SUMMARY | 2018-11-10 01:59 | XMS REPORT | Clinical Summary ---
:1970 Author Organization [facility] Address [address] [place] [address] Care Team Providers Name Role Phone Asked, [...] INFLUENZA VACCINE 11/02/2018 Results Not on fileafter 11/09/2017 Advance Directives Patient has advance care planning documents on file. For more information, please contact:[id number] [place] [address]
--- OUTSIDE RECORDS SUMMARY | 2018-11-10 02:00 | XMS REPORT | Clinical Summary ---
:1970 Author Organization [facility] Address [address] [place] [address] Care Team Providers Name Role Phone Pcp, [...] Vasquez ENDOSCOPY,CAPSULE MD Mack 09/03/2018 Travel 09/02/2018 [facility] General Internal Shaila Medina Colitis; - Encounter Medicine MD Jo Iron deficiency anemia, unspecified iron deficiency anemia type; 09/06/2018 Patel Valenzuela Bipolar 1 disorder (HCC); MD Mike Enteritis Lesli Arzate MD Vernon, Kimberly Ann, MD 09/02/2018 Travel after 11/09/2017 Social History Tobacco Use Types Packs/Day Years [...] procedure are in the results section. after 11/09/[address] abdomen/pelvis with IV contrast (09/05/2018 6:35 PM CDT) Specimen Narrative Performed At FINAL REPORT [facility] TECHNIQUE: CT of the abdomen and pelvis [...] MD Report Verified Date/Time:09/05/2018 19:42:13 Reading Location: [facility] Consult Reading Room Procedure Note Interface, [...] Report Verified Date/Time: 09/05/2018 19:42:13 Reading Location: [address] Consult Reading Room Performing Organization Address City/State/Zipcode Phone Number [facility] XR abdomen / KUB 1 view (09/05/2018 1:08 PM CDT) Specimen Narrative Performed At Addendum Begins [place] RIS REPORT STATUS:A Addendum: The video capsule is seen projected over the right iliac wing. It could be in the distal ileum versus large bowel. If in exact location is needed. CT scan will be necessary. End of addendum. Signed: Reza Lira MD Report Verified Date/Time:09/05/2018 15:30:35 Reading Location: [facility] Radiology Reading Room Addendum Ends FINAL REPORT TECHNIQUE: Supine radiograph of the abdomen dated 09/05/2018 HISTORY: Evaluate for retained video capsule. COMPARISON: None IMPRESSION: No air-filled, dilated loops of bowel to suggest obstruction. No free intraperitoneal air. No abnormal soft tissue mass. No radiodense foreign body visualized. Bones are unremarkable. Signed: Reza Lira MD Report Verified Date/Time:09/05/2018 14:53:33 Reading Location: [facility] Radiology Reading Room Procedure Note [...] Report Verified Date/Time: 09/05/2018 15:30:35 Reading Location: [facility] Radiology Reading Room Addendum Ends FINAL REPORT TECHNIQUE: Supine radiograph of the abdomen dated 09/05/2018 HISTORY: Evaluate for retained video capsule. COMPARISON: None IMPRESSION: No air-filled, dilated loops of bowel to suggest obstruction. No free intraperitoneal air. No abnormal soft tissue mass. No radiodense foreign body visualized. Bones are unremarkable. Signed: Reza Lira MD Report Verified Date/Time: 09/05/2018 14:53:33 Reading Location: [facility] Radiology Reading Room Performing Organization Address City/State/Zipcode Phone Number GE RIS CBC (Hemogram only) (09/05/2018 5:03 AM CDT)Only the most recent of3 resultswithin the time period is included. WBC 7.3 3.5 - 10.5 K/L [facility] RBC 3.92 (L) 3.93 - 5.22 M/L [facility] Hemoglobin 10.2 (L) 11.2 - 15.7 GM/DL [facility] Hematocrit 33.0 (L) 34.1 - 44.9 % [facility] MCV 84.2 79.4 - 94.8 fL [facility] MCH 26.0 25.6 - 32.2 pg [facility] MCHC 30.9 (L) 32.2 - 35.5 GM/DL [facility] RDW 18.8 (H) 11.7 - 14.4 % [facility] Platelets 380 150 - 450 K/CU MM [facility] MPV 10.3 9.4 - 12.3 fL [facility] nRBC 0 0 - 0 /100 WBC [facility] Specimen Blood Performing Organization Address City/State/Zipcode Phone Number [facility] [address] [place] [address] [phone] CENTER Basic metabolic panel (09/05/2018 5:03 AM CDT)Only the most recent of3 resultswithin the time period is included. Sodium 138 136 - 145 meq/L [facility] Potassium 4.3 3.5 - 5.1 meq/L [facility] Chloride 110 (H) 98 - 107 meq/L [facility] CO2 23 22 - 29 meq/L [facility] BUN 8 7 - 21 mg/dL [facility] Creatinine 0.66 0.57 - 1.25 mg/dL [facility] Glucose 107 (H) 70 - 105 mg/dL [facility] Calcium 9.0 8.4 - 10.2 mg/dL [facility] EGFR 95Comment: ESTIMATED GFR IS mL/min/1.73 sq m [facility] NOT ACCURATE [facility] CLEARANCE IN PREDICTING GLOMERULAR FILTRATION RATE. ESTIMATED GFR IS NOT APPLICABLE FOR DIALYSIS PATIENTS. Specimen Blood Performing Organization Address City/State/Zipcode Phone Number [facility] [address] [place], [place] [id number] [phone] [place] Celiac Disease Panel (09/04/2018 5:46 PM CDT) Scan Result [facility] Celiac Disease Profile Refer to Celiac [facility] results. Specimen Blood Narrative Performed At Performing Organization Address City/State/Zipcode Phone Number [place] [address] [facility] [id number] [facility] C-Reactive Protein (09/04/2018 5:46 PM CDT) CRP 0.38 0.00 - 0.50 mg/dL [facility] Specimen Blood Performing Organization Address City/State/Zipcode Phone Number [facility] [address] [place] [address] CENTER GI Pathogen Profile by PCR -ID Only (09/04/2018 5:37 PM CDT) CAMPYLOBACTER (PCR) Not detected Not detected [facility] PLESIOMONAS SHIGELLOIDES (PCR) Not detected Not detected [facility] MED[facility] [place] SALMONELLA (PCR) Not detected Not detected [facility] [place] YERSINIA ENTEROCOLITICA (PCR) Not detected Not detected [facility] VIBRIO CHOLERAE (PCR) Not detected Not detected [facility] ENTEROAGGREGATIVE E. COLI (EAEC) Not detected Not detected [facility] BY PCR MEDICAL CENTER ENTEROPATHOGENIC E. COLI (EPEC) BY Not detected Not detected [facility] PCR MEDICAL CENTER ENTEROTOXIGENIC E. COLI (ETEC) Not detected Not detected [facility] LT/ST BY PCR [facility] SHIGA-LIKE TOXIN-PRODUCING E. COLI Not detected Not detected [facility] (STEC) STX1/STX2 [facility] E. COLI O157 (PCR) Not detected [facility] SHIGELLA/ENTEROINVASIVE E. COLI Not detected Not detected [facility] (EIEC) BY PCR [facility] CRYPTOSPORIDIUM (PCR) Not detected Not detected [facility] CYCLOSPORA CAYETANENSIS (PCR) Not detected Not detected [facility] ENTAMOEBA HISTOLYTICA (PCR) Not detected Not detected [facility] GIARDIA LAMBLIA (PCR) Not detected Not detected [facility] ADENOVIRUS F 40/41 (PCR) Not detected Not detected [facility] ASTROVIRUS (PCR) Not detected Not detected [facility] NOROVIRUS GI/GII (PCR) Not detected Not detected [facility] ROTAVIRUS A (PCR) Not detected Not detected [facility] SAPOVIRUS (I, II, IV, V) BY PCR Not detected Not detected [facility] VIBRIO (PARAHAEMOLYTICUS, Not detected Not detected [facility] VULNIFICUS) [facility] Specimen Stool Narrative Performed At Other viruses, parasites and bacteria not [facility] targeted by this PCR panel cannot be excluded; therefore clinical correlation and follow up of serology, culture results, and other molecular studies is required. The results are not intended to be used as the sole means for clinical diagnosis or patient management decisions. This sample was tested at the [facility] Molecular Diagnostics Laboratory using the [employer] Gastrointestinal Panel. It is FDA cleared and has been verified and approved by the [facility] for clinical use. This laboratory is CLIA-certified and [employer] (CAP)-accredited to perform high complexity testing. Performing Organization Address City/State/Zipcode Phone Number [facility] [address] [place] [address] CENTER H. pylori antigen, stool (09/04/2018 5:37 [...] Lab [facility] *[facility], [address] [place] [phone] Juan Mak MD, PhD Performing Organization Address City/State/Zipcode Phone Number [facility] [place] [address] [facility] [address] [facility] Iron, TIBC, % sat. (without ferritin) (09/04/2018 3:59 AM CDT) Iron 15.0 (L) 40.0 - 160.0 ug/dL [facility] TIBC 274 250 - 450 ug/dL [facility] Iron % Saturation 5 (L) 20 - 55 % [facility] Specimen Blood Performing Organization Address [facility] Phone Number [address] [address] [phone] CENTER Reticulocyte count (09/04/2018 3:59 AM CDT) % Retic 1.1 0.5 - 1.7 % [facility] Specimen Blood Performing Organization Address [facility] Phone Number [address] [address] CENTER Ferritin (09/04/2018 3:59 AM CDT) Ferritin 13 5 - 275 ng/mL [facility] Specimen Blood Performing Organization Address [facility] Phone Number [address] [address] [place] Screen, urine (09/03/2018 2:16 PM CDT) Preg Test, Ur Negative [facility] Specimen Urine Performing Organization Address City/State/Zipcode Phone Number [facility] [address] [place] [address] CENTER after 11/09/2017 Advance Directives For more information, please contact:[address] [phone] Code Status Date Activated Date Inactivated Comments Full Code 09/02/2018 9:07 PM 09/06/2018 2:52 PM This code status was determined by: Patient
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
--- OUTSIDE RECORDS SUMMARY | 2018-11-10 02:03 | XMS REPORT | Summary of Care ---
:1970 [address] [facility] - Health Address [address] [place] [id number] Care Team Providers Name Role Phone Pcp, Patient Does Not Have A Primary Care Provider Nancy [place] [facility] [place] Encounter Details Date Type Department Care Team Description 11/04/[address] [facility] Doctor Unassigned, No [facility] Name [place] [phone] Allergies No Known Allergiesdocumented as of this encounter (statuses as of 11/04/2018) Medications Medication Sig Dispensed Refills Start Date End Date Status dicyclomine 10 mg Take 1 capsule by 16 capsule 0 08/14/2018 Active capsuleIndications: mouth 4 (four) Lower abdominal pain times daily. documented as of this encounter (statuses as of 11/04/2018) Active Problems Problem Noted Date Lower abdominal pain 08/22/2017 Acute pancreatitis 08/21/2017 Mild protein-calorie malnutrition 08/21/2017 Large ovary 08/21/2017 Other facial bones, closed fracture 04/09/2006 documented as of this encounter (statuses as of 11/04/2018) Social History Tobacco Use Types Packs/Day Years Used Date Current Every Day Smoker 1 30 Smokeless Tobacco: Never Used Alcohol Use Drinks/Week oz/Week Comments Yes 2 Cans of beer 1.2 Sex Assigned at Date Recorded Not on file Job Start Date Occupation Industry Not on file Not on file Not on file Travel History Travel Start Travel End No recent travel history available. documented as of this encounter Last Filed Vital Signs Not on filedocumented in this encounter Plan of Treatment Health Maintenance Due Date Last Done Comments PNEUMOCOCCAL 0-64 YEARS COMBINED SERIES (1 of - 1975 PPSV23) DTaP,Tdap,and Td Vaccines (1 - Tdap) 02/04/1988 PAP SMEAR 1990 MAMMOGRAM 2009 INFLUENZA VACCINE 12/03/2018 documented as of this encounter Procedures Procedure Name Priority Date/Time Associated Diagnosis Comments CONSENT/REFUSAL FOR Routine 11/04/2018 1:31 AM CDT DIAGNOSIS AND TREATMENT documented in this encounter Results Not on filedocumented in this encounter
--- OUTSIDE RECORDS SUMMARY | 2018-11-10 02:03 | XMS REPORT | Summary of Care ---
:1970 Author Organization [facility] Address [address] [place] [id number]- Encounter HQ Griffinr_bran(FIN) [id number] Date(s): 04/13/18 - 04/14/[address] Professional Services provided by [facility] [place] [address]- Encounter Diagnosis Nontraumatic acute subdural hemorrhage (Final) - 04/21/18 Nontraumatic chronic subdural hemorrhage (Final) - Bipolar disorder, unspecified (Final) - Discharge Disposition: Home or Self Care Attending Physician: Jodie Merritt MD Admitting Physician: Kel Shaikh MD Referring Physician: Darrell Mc MD Vital Signs Most recent to oldest 1 2 3 [Reference Range]: Height 160.02 cm (04/13/18 1:53 PM) Temperature Oral [96.4-99.1 98.2 DegF 97.2 DegF 97.6 DegF DegF] (04/14/18 1:01 PM) (04/14/18 7:35 AM) (04/14/18 4:00 AM) Blood Pressure [90-140/60-90 95/55 mmHg 83/45 mmHg 86/51 mmHg mmHg] (04/14/18 10:00 AM) *LOW* *LOW* (04/14/18 9:00 AM) (04/14/18 8:00 AM) Respiratory Rate [14-20 BRMIN] 31 BRMIN 18 BRMIN 19 BRMIN *HI* (04/14/18 9:00 AM) (04/14/18 8:00 AM) (04/14/18 10:00 AM) Peripheral Pulse Rate [60-100 88 bpm 90 bpm 97 bpm bpm] (04/13/18 9:11 PM) (04/13/18 7:02 PM) (04/13/18 1:53 PM) Weight 47.6 kg (04/13/18 1:53 PM) Body Mass Index 18.59 m2 (04/13/18 1:53 PM) Problem List No data available for this section Allergies, Adverse Reactions, Alerts Substance Reaction Severity Status amoxicillin Active NKDA Active Medications acetaminophen 650 mg, 2 tab, Route: PO, Drug form: TAB, Q4H, Dosing Weight 47.6, kg, PRN Pain 1-3/Temp > 100.4 F, Start date: 04/13/18 19:47:00 [employer], Duration: 30 day, Stop date: 05/13/18 19:46:00 [employer] Notes: Do not exceed 4 gm/day. (Same as: Tylenol) Start Date: 04/13/18 Stop Date: 04/14/18 Status: Discontinuedacetaminophen 1,000 mg, Route: PO, ONCE, Dosing Weight 47.6, kg, Start date: 04/13/18 18:28: 00 [employer], Stop date: 04/13/18 18:28:00 [employer] Start Date: 04/13/18 Stop Date: 04/13/18 Status: Completedbisacodyl 10 mg, 1 supp, Route: ND, Drug form: SUPP, Daily, Dosing Weight 47.6, kg, PRN Constipation, Start date: 04/13/18 19:47:00 [employer], Duration: 30 day, Stop date: 19:46:00 [employer] Notes: (Same As: Dulcolax, Bisco-Lax) Start Date: 04/13/18 Stop Date: 04/14/18 Status: DiscontinuedDepakote 250 mg oral enteric coated tablet 250 mg, 1 tab, Route: PO, Drug form: ECTAB, Q12H, Dosing Weight 47.6, kg, Start date: 04/14/18 9:00:00 [employer], Duration: 30 day, Stop date: 05/13/18 21:00:00 [employer], Delayed Release tablet Notes: (Same as: Depakote Delayed Release) Do not confuse with the extended- release tablet. Delayed absorption, enteric coated tablet. Do not crush Start Date: 04/14/18 Stop Date: 04/14/18 Status: DiscontinuedDepakote 250 mg oral enteric coated tablet 250 mg=1 tab, PO, BID, # 60 tab, 1 Refill(s) Start Date: 04/14/18 Stop Date: 04/14/18 Status: DeletedDepakote 500 mg oral enteric coated tablet 500 mg, PO, Bedtime Start Date: 04/14/18 Status: OrderedDepakote ER 250 mg oral tablet, extended release 250 mg, PO, Daily Start Date: 04/14/18 Status: Ordereddocusate 100 mg, 1 cap, Route: PO, Drug form: CAP, Q12H, Dosing Weight 47.6, kg, Start date: 04/13/18 21:00:00 [employer], Duration: 30 day, Stop date: 05/13/18 9:00:00 [employer] Notes: (Same as: Colace) (Do Not Crush) Start Date: 04/13/18 Stop Date: 04/14/18 Status: Discontinuedheparin 5000 units/mL injectable solution 5,000 unit, 1 mL, Route: SUB-Q, Drug form: INJ, Q8H, Dosing Weight 47.6, kg, Start date: 04/14/18 16:00:00 [employer], Duration: 30 day, Stop date: 05/14/18 8:00: 00 [employer] Notes: porcine heparin Start Date: 04/14/18 Stop Date: 04/14/18 Status: CanceledKeppra 500 mg oral tablet 500 mg=1 tab, PO, BID, # 12 tab, 0 Refill(s) Start Date: 04/14/18 Stop Date: 04/20/18 Status: OrderedlevETIRAcetam + Sodium Chloride 0.9% IV 100 mL 1,000 mg, Route: IVPB, ONCE, Dosing Weight 47.6, kg, Start date: 04/13/18 19:47: 00 [employer], Stop date: 04/13/18 19:47:00 [employer] Notes: Same as KeppraMix with 100 mL NS, LR or D5W MEDICATION WASTE Product Size: 500 mgProduct Wasted: ___ mg Start Date: 04/13/18 Stop Date: 04/13/18 Status: CompletedlevETIRAcetam + Sodium Chloride 0.9% IV 100 mL 500 mg, Route: IV, Q12H, Dosing Weight 47.6, kg, Start date: 04/14/18 9:00:00 [employer], Duration: 30 day,Stop date: 05/13/18 21:00:00 [employer] Notes: Same as KeppraMix with 100 mL NS, LR or D5W MEDICATION WASTE Product Size: 500 mgProduct Wasted: ___ mg Start Date: 04/14/18 Stop Date: 04/14/18 Status: Discontinuednormal saline 0.9% IV 1,000 mL 1,000 mL, Rate: 75 ml/hr, Infuse over: 13.3 hr, Route: IV, Dosing Weight 47.6 kg , Total Volume: 1,000, Start date: 04/14/18 3:30:00 [employer], Duration: 30 day, Stop date: 05/14/18 3:29:00 [employer], 1.46, m2 Start Date: 04/14/18 Stop Date: 04/14/18 Status: Discontinuedondansetron 4 mg, 2 mL, Route: IVP, Drug form: INJ, Q8H, Dosing Weight 47.6, kg, PRN Nausea & Vomiting, Start date: 04/13/18 19:47:00 [employer], Duration: 30 day, Stop date: 05/13/18 19:46:00 [employer] Notes: (Same as: Zofran) MEDICATION WASTE Product Size: 4 mgProduct Wasted: ___ mg Start Date: 04/13/18 Stop Date: 04/14/18 Status: Discontinuedondansetron 2 mg/mL injectable solution 4 mg=2 mL, IVP, Q8H, PRN Nausea & Vomiting, 0 Refill(s) Start Date: 04/14/18 Status: OrderedSaline Flush 0.9% 10 ml, Route: MISC, Drug Form: INJ, Dosing Weight 47.6, kg, Q12H, Start date: 21:00:00 [employer],Duration: 30 day, Stop date: 05/13/18 9:00:00 [employer] Notes: (Same as: BD Posiflush) Start Date: 04/13/18 Stop Date: 04/14/18 Status: DiscontinuedSaline Flush 0.9% 10 ml, Route: MISC, Drug Form: INJ, Dosing Weight 47.6, kg, PRN, PRN Line Flush , Start date: 04/13/18 19:47:00 [employer], Duration: 30 day, Stop date: 05/13/18 19:46 :00 [employer] Notes: (Same as: BD Posiflush) Start Date: 04/13/18 Stop Date: 04/14/18 Status: Discontinuedsenna 8.6 mg, 1 tab, Route: PO, Drug Form: TAB, Dosing Weight 47.6, kg, Q12H, Start date: 04/13/18 21:00:00 [employer], Duration: 30 day, Stop date: 05/13/18 9:00:00 [employer] Notes: (Same as: Senokot) Start Date: 04/13/18 Stop Date: 04/14/18 Status: Discontinued Results Most recent to oldest [Reference Range]: 1 Neutrophils # [1.5-8.1 K/CMM] 3.3 K/CMM (04/13/18 3:07 PM) Lymphocytes # [1.0-5.5 K/CMM] 1.7 K/CMM (04/13/18 3:07 PM) Monocytes # [0.0-0.8 K/CMM] 0.6 K/CMM (04/13/18 3:07 PM) Eosinophils # [0.0-0.5 K/CMM] 0.2 K/CMM (04/13/18 3:07 PM) Bili Indirect [0.0-1.0 mg/dL] 0.3 mg/dL (04/13/18 9:57 PM) G-value Rapid [5.0-11.6 K d/sc] 8.6 K d/sc (04/13/18 3:07 PM) K-time Rapid [0.6-2.3 minutes] 1.2 minutes (04/13/18 3:07 PM) Max Amplitude Rapid [52-71 mm] 63 mm (04/13/18 3:07 PM) R-time Rapid [0.4-0.7 minutes] 0.7 minutes (04/13/18 3:07 PM) Angle Rapid [64-80 degrees] 75 degrees (04/13/18 3:07 PM) eGFR 109 mL/min/1.73m2 1 *NA* (04/13/18 3:07 PM) A/G Ratio [0.7-1.6] 1.0 (04/13/18 9:57 PM) Albumin Lvl [3.5-5.0 g/dL] 3.0 g/dL *LOW* (04/13/18 9:57 PM) Alk Phos [39-136 unit/L] 49 unit/L (04/13/18 9:57 PM) ALT [0-65 unit/L] 19 unit/L (04/13/18 9:57 PM) AGAP [10.0-20.0 mEq/L] 13.4 mEq/L (04/13/18 3:07 PM) AST [0-37 unit/L] 24 unit/L (04/13/18 9:57 PM) Basophils [0.0-1.0 %] 0.7 % (04/13/18 3:07 PM) BUN [7-22 mg/dL] 7 mg/dL (04/13/18 3:07 PM) Calcium Lvl [8.5-10.5 mg/dL] 8.6 mg/dL (04/13/18 3:07 PM) Chloride Lvl [95-109 mEq/L] 112 mEq/L *HI* (04/13/18 3:07 PM) CO2 [24-32 mEq/L] 23 mEq/L *LOW* (04/13/18 3:07 PM) Creatinine Lvl [0.50-1.40 mg/dL] 0.58 mg/dL (04/13/18 3:07 PM) Bili Direct [0.0-0.3 mg/dL] 0.1 mg/dL (04/13/18 9:57 PM) Eosinophils [0.0-4.0 %] 4.0 % (04/13/18 3:07 PM) Globulin [2.7-4.2 g/dL] 3.0 g/dL (04/13/18 9:57 PM) Glucose Lvl [70-99 mg/dL] 107 mg/dL *HI* (04/13/18 3:07 PM) Hct [36.0-48.0 %] 33.7 % *LOW* (04/13/18 3:07 PM) Hgb [12.0-16.0 g/dL] 11.1 g/dL *LOW* (04/13/18 3:07 PM) INR [0.85-1.17] 1.03 (04/13/18 3:07 PM) Potassium Lvl [3.5-5.1 mEq/L] 4.4 mEq/L 2 (04/13/18 3:07 PM) Lymphocytes [20.0-40.0 %] 29.4 % (04/13/18 3:07 PM) MCH [27.0-31.0 pg] 27.5 pg (04/13/18 3:07 PM) MCHC [32.0-36.0 g/dL] 32.9 g/dL (04/13/18 3:07 PM) MCV [80.0-98.0 fL] 83.5 fL (04/13/18 3:07 PM) Monocytes [2.0-12.0 %] 9.6 % (04/13/18 3:07 PM) MPV [7.4-10.4 fL] 8.4 fL (04/13/18 3:07 PM) Sodium Lvl [135-145 mEq/L] 144 mEq/L (04/13/18 3:07 PM) Platelet [133-450 K/CMM] 365 K/CMM (04/13/18 3:07 PM) Segs [45.0-75.0 %] 56.3 % (04/13/18 3:07 PM) Total Protein [6.4-8.4 g/dL] 6.0 g/dL *LOW* (04/13/18 9:57 PM) PT [12.0-14.7 seconds] 13.3 seconds (04/13/18 3:07 PM) PTT [22.9-35.8 seconds] 30.6 seconds (04/13/18 3:07 PM) RBC [4.20-5.40 M/CMM] 4.04 M/CMM *LOW* (04/13/18 3:07 PM) RDW [11.5-14.5 %] 17.2 % *HI* (04/13/18 3:07 PM) Bili Total [0.2-1.3 mg/dL] 0.4 mg/dL (04/13/18 9:57 PM) WBC [3.7-10.4 K/CMM] 5.8 K/CMM (04/13/18 3:07 PM) ACT (TEG) Rapid [86-118 seconds] 113 seconds (04/13/18 3:07 PM) Estimated % Lysis Rapid [0.0-7.5 %] 2.1 % (04/13/18 3:07 PM) [place] Rapid 0.6 minutes *NA* (04/13/18 3:07 PM) 1Result Comment: The eGFR is calculated using [...] eGFR should be multiplied by the estimated BMI.2Result Comment: very slight hemolysis Immunizations No data available for this section Procedures No data available for this section Social History Social History Type Response Smoking Status Never smoker; Exposure to Tobacco Smoke None; Cigarette Smoking Last 365 Days No; Reg Smoking Cessation Counseling No entered on: 04/13/18 Assessment and Plan No data available for this section
--- OUTSIDE RECORDS SUMMARY | 2018-11-10 02:03 | XMS REPORT ---
:1970 Author Organization [facility] Address [address] [place] [address] Care Team Providers Name Role Phone UNKNOWN, [...] Facility Department ID 2017-07-02 2017-07-02 Emergency E [facility] MED [id number] 08:16:00 08:16:00 Results Test Description Test Time Test Comments Text Results Atomic Results Result Comments CELIAC DISEASE PANEL 2018-09-08 08:06:00 Test Item Value Reference Range Comments SCAN RESULT (test ndjj=[id number]) CELIAC DISEASE PROFILE AUTOVERIFICATION Refer to Celiac Disease Panel (QUEST) (test igdm=[id number]) results. CT, [id number] 19:42:00Only need IV contrast, not POFINAL REPORT [...] Verified Date/Time: 09/05/2018 19:42: 13 Reading Location: [facility] C013 Consult Reading Room RAD, ABDOMEN/KUB, 1 VIEW [id number] 15:30:00Reason for exam:->look for retained video capsuleAddendum BeginsREPORT STATUS:A Addendum:The video capsule is seen projected over the right iliac wing. It could be in the distal ileum versus large bowel. If in exact location isneeded. CT scan will be necessary. End of addendum. Signed: Gisele Lira MDReport Verified Date/ Time: 09/05/2018 15:30:35 Reading Location: [facility] Radiology Reading RoomAddendum EndsFINAL REPORT TECHNIQUE: Supine radiograph of the abdomen dated 09/05/2018 HISTORY: Evaluate for retained video capsule. COMPARISON: None IMPRESSION:No air-filled, dilated loops of bowel to suggest obstruction. No free intraperitoneal air. No abnormal soft tissue mass. No radiodense foreign body visualized. Bones are unremarkable. Signed: Gisele Lira MDReport Verified Date/Time: 09/05/2018 14:53:33 Reading Location: [facility] Radiology Reading Room GI PATHOGEN PROFILE BY [id number] 10:43:00 Test Item Value Reference Range Comments CAMPYLOBACTER (PCR) (test qdoo=[id number]) Not detected Not detected PLESIOMONAS SHIGELLOIDES (PCR) (test Not detected Not detected uwgl=6232432) SALMONELLA (PCR) (test nsyn=1103970) Not detected Not detected YERSINIA ENTEROCOLITICA (PCR) (test Not detected Not detected deqq=3473973) VIBRIO CHOLERAE (PCR) (test andi=8046034) Not detected Not detected ENTEROAGGREGATIVE E. COLI (EAEC) BY PCR (test Not detected Not detected cvme=5262001) ENTEROPATHOGENIC E. COLI (EPEC) BY PCR (test Not detected Not detected muja=1510184) ENTEROTOXIGENIC E. COLI (ETEC) LT/ST BY PCR Not detected Not detected (test dlgf=0353931) SHIGA-LIKE TOXIN-PRODUCING E. COLI (STEC) Not detected Not detected STX1/STX2 (test cvgl=9056347) E. COLI O157 (PCR) (test maom=5403934) Not detected SHIGELLA/ENTEROINVASIVE E. COLI (EIEC) BY PCR Not detected Not detected (test axkc=0919191) CRYPTOSPORIDIUM (PCR) (test jsqe=8625476) Not detected Not detected CYCLOSPORA CAYETANENSIS (PCR) (test Not detected Not detected vhrb=4755812) ENTAMOEBA HISTOLYTICA (PCR) (test fbst=1886333) Not detected Not detected GIARDIA LAMBLIA (PCR) (test gvkn=8346426) Not detected Not detected ADENOVIRUS F 40/41 (PCR) (test nbvt=4484690) Not detected Not detected ASTROVIRUS (PCR) (test tlpa=2027663) Not detected Not detected NOROVIRUS GI/GII (PCR) (test axrt=4818857) Not detected Not detected ROTAVIRUS A (PCR) (test shot=2708212) Not detected Not detected SAPOVIRUS (I, II, IV, V) BY PCR (test Not detected Not detected xgub=0432141) VIBRIO (PARAHAEMOLYTICUS, VULNIFICUS) (test Not detected Not detected gwus=0421162) Other viruses, parasites and bacteria not targeted by this PCR panel cannot be excluded; therefore clinical correlation and follow up of serology, culture results, and other molecular studies is required. The results are not intended to be used as the sole means for clinical diagnosis or patient management decisions. This sample was tested at the [facility] using the QD VisionArray Gastrointestinal Panel. It is FDA cleared and has been verified and approved by the [facility] for clinical use. This laboratory is CLIA-certified and College ofAmerican Pathologists (CAP)-accredited to perform high complexity testing.BASIC METABOLIC [id number] 05:42:00 Test Item Value Reference Range Comments SODIUM (BEAKER) (test 138 meq/L 136-145 ucxj=344) POTASSIUM (BEAKER) (test 4.3 meq/L 3.5-5.1 fymw=252) CHLORIDE (BEAKER) (test 110 meq/L 98-107 prtu=163) CO2 (BEAKER) (test 23 meq/L 22-29 ikfz=807) BLOOD UREA NITROGEN 8 mg/dL 7-21 (BEAKER) (test qpjt=961) CREATININE (BEAKER) (test 0.66 mg/dL 0.57-1.25 tzsc=558) GLUCOSE RANDOM (BEAKER) 107 mg/dL 70-105 (test yxzq=269) CALCIUM (BEAKER) (test 9.0 mg/dL 8.4-10.2 pecx=831) EGFR (BEAKER) (test 95 mL/min/1.73 sq m ESTIMATED GFR IS NOT yhtw=6774) ACCURATE CREATININE CLEARANCE IN PREDICTING GLOMERULAR FILTRATION RATE. ESTIMATED GFR IS NOT APPLICABLE FOR DIALYSIS PATIENTS. CBC (HEMOGRAM ONLY)2018-09-05 05:23:00 Test Item Value Reference Range Comments WHITE BLOOD CELL COUNT (BEAKER) (test guxz=008) 7.3 K/ L 3.5-10.5 RED BLOOD CELL COUNT (BEAKER) (test ymcm=049) 3.92 M/ L 3.93-5.22 HEMOGLOBIN (BEAKER) (test zgku=887) 10.2 GM/DL 11.2-15.7 HEMATOCRIT (BEAKER) (test itsn=608) 33.0 % 34.1-44.9 MEAN CORPUSCULAR VOLUME (BEAKER) (test rngs=530) 84.2 fL 79.4-94.8 MEAN CORPUSCULAR HEMOGLOBIN (BEAKER) (test 26.0 pg 25.6-32.2 nqkj=112) MEAN CORPUSCULAR HEMOGLOBIN CONC (BEAKER) (test 30.9 GM/DL 32.2-35.5 jets=107) RED CELL DISTRIBUTION WIDTH (BEAKER) (test 18.8 % 11.7-14.4 zamk=033) PLATELET COUNT (BEAKER) (test hwkr=975) 380 K/CU MM 150-450 MEAN PLATELET VOLUME (BEAKER) (test nuzw=685) 10.3 fL 9.4-12.3 NUCLEATED RED BLOOD CELLS (BEAKER) (test 0 /100 WBC 0-0 cylu=179) C-REACTIVE [id number] 18:59:00 Test Item Value Reference Range Comments C-REACTIVE PROTEIN (BEAKER) (test idbs=871) 0.38 mg/dL 0.00-0.50 [id number] 05:48:00 Test Item Value Reference Range Comments FERRITIN (BEAKER) (test dewa=697) 13 ng/mL 5-275 BASIC METABOLIC [id number] 05:27:00 Test Item Value Reference Range Comments SODIUM (BEAKER) (test 139 meq/L 136-145 zsst=750) POTASSIUM (BEAKER) (test 4.0 meq/L 3.5-5.1 lkvf=073) CHLORIDE (BEAKER) (test 112 meq/L 98-107 yspm=575) CO2 (BEAKER) (test 23 meq/L 22-29 svyz=036) BLOOD UREA NITROGEN 3 mg/dL 7-21 (BEAKER) (test hivl=265) CREATININE (BEAKER) (test 0.62 mg/dL 0.57-1.25 joni=980) GLUCOSE RANDOM (BEAKER) 91 mg/dL 70-105 (test bcma=933) CALCIUM (BEAKER) (test 8.4 mg/dL 8.4-10.2 shja=916) EGFR (BEAKER) (test 102 mL/min/1.73 sq m ESTIMATED GFR IS NOT qrwz=2932) ACCURATE CREATININE CLEARANCE IN PREDICTING GLOMERULAR FILTRATION RATE. ESTIMATED GFR IS NOT APPLICABLE FOR DIALYSIS PATIENTS. IRON, TIBC, % SAT. (WITHOUT FERRITIN)2018-09-04 05:26:00 Test Item Value Reference Range Comments IRON (BEAKER) (test ysmz=019) 15.0 ug/dL 40.0-160.0 TOTAL IRON BINDING CAPACITY (BEAKER) (test 274 ug/dL 250-450 kdwm=645) IRON % SATURATION (2) (BEAKER) (test tibe=4623) 5 % 20-55 CBC (HEMOGRAM ONLY)2018-09-04 05:05:00 Test Item Value Reference Range Comments WHITE BLOOD CELL COUNT (BEAKER) (test erds=290) 5.9 K/ L 3.5-10.5 RED BLOOD CELL COUNT (BEAKER) (test gkky=814) 3.67 M/ L 3.93-5.22 HEMOGLOBIN (BEAKER) (test lmvr=224) 9.8 GM/DL 11.2-15.7 HEMATOCRIT (BEAKER) (test jefg=879) 30.7 % 34.1-44.9 MEAN CORPUSCULAR VOLUME (BEAKER) (test xyls=351) 83.7 fL 79.4-94.8 MEAN CORPUSCULAR HEMOGLOBIN (BEAKER) (test 26.7 pg 25.6-32.2 gyih=352) MEAN CORPUSCULAR HEMOGLOBIN CONC (BEAKER) (test 31.9 GM/DL 32.2-35.5 ycju=021) RED CELL DISTRIBUTION WIDTH (BEAKER) (test 18.9 % 11.7-14.4 icqb=931) PLATELET COUNT (BEAKER) (test hqxx=080) 361 K/CU MM 150-450 MEAN PLATELET VOLUME (BEAKER) (test oaxi=846) 10.3 fL 9.4-12.3 NUCLEATED RED BLOOD CELLS (BEAKER) (test 0 /100 WBC 0-0 gbkx=946) RETICULOCYTE [id number] 05:05:00 Test Item Value Reference Range Comments RETICULOCYTE COUNT PCT (BEAKER) (test tobs=525) 1.1 % 0.5-1.7 SCREEN, [id number] 15:17:00 Test Item Value Reference Range Comments TEST URINE (BEAKER) (test munt=593) Negative BASIC METABOLIC [id number] 04:53:00 Test Item Value Reference Range Comments SODIUM (BEAKER) (test 136 meq/L 136-145 inmm=363) POTASSIUM (BEAKER) (test 3.8 meq/L 3.5-5.1 wakg=285) CHLORIDE (BEAKER) (test 109 meq/L 98-107 xghd=397) CO2 (BEAKER) (test 24 meq/L 22-29 ydyk=831) BLOOD UREA NITROGEN 5 mg/dL 7-21 (BEAKER) (test dfhh=119) CREATININE (BEAKER) (test 0.60 mg/dL 0.57-1.25 rder=990) GLUCOSE RANDOM (BEAKER) 88 mg/dL 70-105 (test juub=200) CALCIUM (BEAKER) (test 8.3 mg/dL 8.4-10.2 pdpf=541) EGFR (BEAKER) (test 106 mL/min/1.73 sq m ESTIMATED GFR IS NOT odtb=1996) ACCURATE CREATININE CLEARANCE IN PREDICTING GLOMERULAR FILTRATION RATE. ESTIMATED GFR IS NOT APPLICABLE FOR DIALYSIS PATIENTS. CBC (HEMOGRAM ONLY)2018-09-03 04:33:00 Test Item Value Reference Range Comments WHITE BLOOD CELL COUNT (BEAKER) (test llvf=417) 5.8 K/ L 3.5-10.5 RED BLOOD CELL COUNT (BEAKER) (test scrq=517) 3.53 M/ L 3.93-5.22 HEMOGLOBIN (BEAKER) (test crru=520) 9.2 GM/DL 11.2-15.7 HEMATOCRIT (BEAKER) (test oqjm=220) 29.7 % 34.1-44.9 MEAN CORPUSCULAR VOLUME (BEAKER) (test uzgf=693) 84.1 fL 79.4-94.8 MEAN CORPUSCULAR HEMOGLOBIN (BEAKER) (test 26.1 pg 25.6-32.2 park=395) MEAN CORPUSCULAR HEMOGLOBIN CONC (BEAKER) (test 31.0 GM/DL 32.2-35.5 ugqj=829) RED CELL DISTRIBUTION WIDTH (BEAKER) (test 18.8 % 11.7-14.4 zngf=957) PLATELET COUNT (BEAKER) (test zgva=758) 337 K/CU MM 150-450 MEAN PLATELET VOLUME (BEAKER) (test nemc=221) 9.7 fL 9.4-12.3 NUCLEATED RED BLOOD CELLS (BEAKER) (test 0 /100 WBC 0-0 kxpj=191)
--- OUTSIDE RECORDS SUMMARY | 2018-11-10 02:03 | XMS REPORT | Summary of Care ---
:1970 Author Organization [facility] Neurosurgery [facility] Address [address] [place] [address]- Encounter HQ Encntr_alias(FIN) [id number] Date(s): 04/17/18 - 04/18/[address] [address]- Vital Signs No data available for this section Problem List No data available for this [...]
--- OUTSIDE RECORDS SUMMARY | 2018-11-10 02:03 | XMS REPORT | Summary of Care ---
:1970 Author Organization [facility] - Health Address [address] [place] [address] Care Team Providers Name Role Phone Pcp, Patient Does Not Have A Primary Care Provider Nancy Gibbs [facility] Certified Surgical Technologist Reason for Visit Reason Comments Weakness Encounter Details Date Type Department Care Team Description 11/04/2018 Emergency [facility]Emergency David Gil, DO Chaudhary, unspecified Department [address] [place] [address]. type (Primary Dx) [address] [place] [address] [id number] [place] [id number] [phone] Allergies No Known Allergiesdocumented as of this encounter (statuses as of 11/04/2018) Medications Medication Sig Dispensed Refills Start Date End Date Status divalproex sodium Take by 0 Active (DEPAKOTE ORAL) mouth. dicyclomine 10 mg Take 1 capsule 16 capsule 0 08/14/2018 11/04/2018 Discontinued capsuleIndications by mouth 4 : Lower abdominal (four) times pain daily. documented as of this encounter (statuses [...] of this encounter Last Filed Vital Signs Vital Sign Reading Time Taken Comments Blood Pressure 119/73 11/04/2018 1:38 AM CDT Pulse 89 11/04/2018 1:38 AM CDT Temperature 36.7 C (98 F) 11/04/2018 1:38 AM CDT Respiratory Rate 20 11/04/2018 1:38 AM CDT Oxygen Saturation 100% 11/04/2018 1:38 AM CDT Inhaled Oxygen Concentration - - Weight 47.6 kg (105 lb) 11/04/2018 1:38 AM CDT Height 160 cm (5' 3") 11/04/2018 1:38 AM CDT Body Mass Index 18.6 11/04/2018 1:38 AM CDT documented in this encounter Discharge Instructions David Shaw DO - 11/04/2018 DIAGNOSIS Diagnoses that have been ruled out: None Diagnoses that are still under consideration: None Final diagnoses: Fatigue, unspecified type NO LIFE-THREATENING FINDINGS ON TODAY'S EXAM. PROCEDURES IN THE ER TODAY: Orders Placed This Encounter Procedures POCT GLUCOSE (AUTOMATED) MEDICATIONS ADMINISTERED IN THE ER TODAY AND DISCHARGE MEDICATIONS: Orders Placed This Encounter Medications divalproex sodium (DEPAKOTE ORAL) FOLLOW-UP RECOMMENDATIONS: RECOMMEND FOLLOW-UP WITH A PRIMARY CARE PROVIDER OR SPECIALIST IN 2-5 DAYS, ESPECIALLY IF NO IMPROVEMENT IN SYMPTOMS. MAY FOLLOW-UP WITH A PROVIDER OF YOUR CHOICE, SUCH : 1. A PHYSICIAN OF YOUR CHOICE 2. [facility], . LOCATIONS IN [facility] 3. [facility], [address], [place]; [phone] OR, IF YOU WISH TO FOLLOW-UP WITHIN THE [facility], MAY TRY THESE OPTIONS (CLINIC APPOINTMENTS AVAILABLE ON BGKN-[id number] BASIS): 1. SCHEDULE AN APPOINTMENT ONLINE AT [facility] 2. OR CALL THE [facility] ACCESS CENTER AT OR 3. OR CALL YOUR [facility] PHYSICIAN'S OFFICE DIRECTLY IF YOU ARE ALREADY AN ESTABLISHED [facility] PATIENT. RETURN TO ER FOR WORSENING OF SYMPTOMS. AttachmentsThe following attachments cannot be sent through Care Everywhere.Weakness (Uncertain Cause) (Serbian)documented in this encounter Plan of Treatment Health Maintenance Due Date Last Done Comments PNEUMOCOCCAL 0-64 YEARS COMBINED SERIES (1 of - 1975 PPSV23) DTaP,Tdap,and Td Vaccines (1 - Tdap) 02/04/1988 PAP SMEAR 1990 MAMMOGRAM 2009 INFLUENZA VACCINE 12/03/2018 documented as of this encounter Procedures Procedure Name Priority Date/Time Associated Diagnosis Comments EKG-12 LEAD Routine 11/04/2018 2:40 AM CDT POCT GLUCOSE Routine 11/04/2018 2:33 AM Results for this (AUTOMATED) CDT procedure are in the results section. documented in this encounter Results POCT GLUCOSE (AUTOMATED) (11/04/2018 2:33 AM CDT) POCT GLU 111 (H) 70 - 110 mg/dL [facility] Specimen Blood Performing Organization Address City/State/Zipcode Phone Number [facility] CLIA: [id number], [address] [place] [address] documented in this encounter Visit Diagnoses Diagnosis Fatigue, unspecified type - Primary documented in this encounter
[2018-11-10 03:22] LABS: Absolute Lymphocytes (CBC) 2.8 K/uL (0.7-4.9); Basophils % 2.4 % (0-1.3); Hematocrit 34.2 % (36.0-45.0); Lymphocytes % 31.9 % (15.3-44.8); MPV 8.9 fL (7.6-11.3); RBC Red Blood Cell Count 4.24 M/uL (3.86-4.86)
[2018-11-10 03:27] LABS: BUN Blood Urea Nitrogen 4 mg/dL (7-18); Bicarbonate 22 mmol/L (21-32); Glucose Level 82 mg/dL (74-106); Potassium 3.4 mmol/L (3.5-5.1); Sodium Level 143 mmol/L (136-145)
--- NOTE | 2018-11-10 03:37 | ER ---
Nurse's Notes [facility] Name: Dayami Espinosa Age: 48 yrs Sex: Female : 1970 Arrival Date: 11/10/2018 Time: 01:58 Bed 8 Private MD: Diagnosis: Lightheaded Presentation: 11/10 01:58 Presenting complaint: EMS states: they were toned out for report of pt having bb dizziness. Transition of care: patient was not received from another setting of care. Onset of symptoms was November 10, 2018. Risk Assessment: Do you want to hurt yourself or someone else? Patient reports no desire to harm self or others. Initial Sepsis Screen: Does the patient meet any 2 criteria? No. Patient's initial sepsis screen is negative. Does the patient have a suspected source of infection? No. Patient's initial sepsis screen is negative. Care prior to arrival: None. 01:58 Method Of Arrival: EMS: [facility] 01:58 Acuity: JAZMIN 3 bb Historical: - Allergies: 02:00 Amoxicillin; bb 02:00 Pseudoephedrine; bb - Home Meds: 02:00 Depakote 250 mg Oral TbEC 1 tab in the morning for Bipolar Disorder in Remission bb [Active]; Depakote 250 mg Oral TbEC 2 tabs nightly [Active]; - PMHx: 02:00 Anemia; Bipolar disorder; gastritis; Ovarian cyst; bb - PSHx: 02:00 brain surgery; bb - Immunization history:: Adult Immunizations unknown. - Social history:: Smoking status: unknown. - Ebola Screening: : No symptoms or risks identified at this time. Screenin:14 Abuse screen: Denies threats or abuse. Nutritional screening: No deficits noted. ea Tuberculosis screening: No symptoms or risk factors identified. Fall Risk None identified. Assessment: 02:12 General: Appears in no apparent distress. Behavior is appropriate for age. Pain: Denies ea pain. Neuro: Level of Consciousness is awake, alert, obeys commands, Oriented to person, place, time, situation. Cardiovascular: Patient's skin is warm and dry. Respiratory: Airway is patent Respiratory effort is even, unlabored, Respiratory pattern is regular, symmetrical. GI: Abdomen is non-distended. Derm: Skin is pink, warm \T\ dry. Musculoskeletal: Circulation, motion, and sensation intact. 03:40 Reassessment: Patient and/or family updated on plan of care and expected duration. Pain ea level reassessed. Patient is alert, oriented x 3, equal unlabored respirations, skin warm/dry/pink. 04:30 Reassessment: Patient and/or family updated on plan of care and expected duration. Pain ea level reassessed. Pt resting with eye closed, respirations even and unlabored. Chest expansions even and symmetrical. No s/s of pain or discomfort noted at this time. 05:33 Reassessment: Patient and/or family updated on plan of care and expected duration. Pain ea level reassessed. Patient is alert, oriented x 3, equal unlabored respirations, skin warm/dry/pink. Pt resting with eyes closed, respirations even and unlabored. Chest expansions even and symmetrical. No s/s of pain or discomfort noted at this time. 05:50 Reassessment: Patient and/or family updated on plan of care and expected duration. Pain ea level reassessed. Patient is alert, oriented x 3, equal unlabored respirations, skin warm/dry/pink. Discharge instruction given to patient, verbalized the understanding of instruction, no s/s of pain or discomfort noted at this time. Vital Signs: 02:14 BP 119 / 80; Pulse 60; Resp 18; Temp 97.6; Pulse Ox 99% on R/A; ea 03:30 BP 90 / 67; Pulse 59; Resp 18; Pulse Ox 98% ; ea 04:00 BP 90 / 69; Pulse 56; Resp 18; Pulse Ox 98% ; ea 05:00 BP 95 / 64; Pulse 58; Resp 18; Pulse Ox 100% on R/A; ea ED Course: 01:58 Patient arrived in ED. bb 01:59 Triage completed. bb 01:59 David Gil MD is Attending Physician. ps1 02:00 Arm band placed on Patient placed in an exam room, on a stretcher, on pulse oximetry. bb 02:02 Jacquelin Matias, BENI is Primary Nurse. ea 02:14 Patient has correct armband on for positive identification. Bed in low position. Call ea light in reach. Side rails up X2. 02:49 Missed attempt(s): 22 gauge in right antecubital area. Missed attempt(s): 22 gauge in ea right hand. 02:50 Initial lab(s) drawn, by me, sent to lab. ea 05:58 No provider procedures requiring assistance completed. Patient did not have IV access ea during this emergency room visit. Administered Medications: No medications were administered Outcome: 03:36 Discharge ordered by . ps1 05:59 Discharged to home ambulatory. ea 05:59 Condition: stable 05:59 Discharge instructions given to patient, Instructed on discharge instructions, follow up and referral plans. Demonstrated understanding of instructions, follow-up care. 06:00 Patient left the ED. ea Signatures: Belen Estrada RN RN Jacquelin Carey RN RN David Green MD MD ps1 Corrections: (The following items were deleted from the chart) 05:36 05:33 Reassessment: Patient and/or family updated on plan of care and expected ea duration. Pain level reassessed. Patient is alert, oriented x 3, equal unlabored respirations, skin warm/dry/pink. Pt resting with eyes closed, respirations even and unlabored. Chest expansions even and symmetrical. No s/s of pain or discomfort noted at this time. ea
--- NOTE | 2018-11-10 03:38 | EDPHYS ---
Physician Documentation [facility] Name: Dayami Espinosa Age: 48 yrs Sex: Female : 1970 Arrival Date: 11/10/2018 Time: 01:58 Bed 8 Private MD: ED Physician David Gil HPI: 11/10 02:10 This 48 yrs old Female presents to ER via EMS with complaints of lightheaded. ps1 02:10 Patient well known to myself and staff. BIBEMS 2/2 lightheaded believes that she may ps1 have been hypoglycemic. Normoglycemia for EMS. Normal vitals. Ambulating without assistance. Multiple similar complaints with workups here and at [facility]. . Historical: - Allergies: 02:00 Amoxicillin; bb 02:00 Pseudoephedrine; bb - Home Meds: 02:00 Depakote 250 mg Oral TbEC 1 tab in the morning for Bipolar Disorder in Remission bb [Active]; Depakote 250 mg Oral TbEC 2 tabs nightly [Active]; - PMHx: 02:00 Anemia; Bipolar disorder; gastritis; Ovarian cyst; bb - PSHx: 02:00 brain surgery; bb - Immunization history:: Adult Immunizations unknown. - Social history:: Smoking status: unknown. - Ebola Screening: : No symptoms or risks identified at this time. ROS: 02:10 Constitutional: Negative for fever, chills, and weight loss, Eyes: Negative for injury, ps1 pain, redness, and discharge, Cardiovascular: Negative for chest pain, palpitations, and edema, Respiratory: Negative for shortness of breath, cough, wheezing, and pleuritic chest pain, Abdomen/GI: Negative for abdominal pain, nausea, vomiting, diarrhea, and constipation, MS/Extremity: Negative for injury and deformity, Skin: Negative for injury, rash, and discoloration. 02:10 Neuro: Positive for lightheaded. Exam: 02:10 Constitutional: This is a well developed, well nourished patient who is awake, alert, ps1 and in no acute distress. Head/Face: Normocephalic, atraumatic. Eyes: Pupils equal round and reactive to light, extra-ocular motions intact. Lids and lashes normal. Conjunctiva and sclera are non-icteric and not injected. Chest/axilla: Normal chest wall appearance and motion. Nontender with no deformity. No lesions are appreciated. Cardiovascular: Regular rate and rhythm. No gallops, murmurs, or rubs. Normal PMI, no JVD. No pulse deficits. Respiratory: Lungs have equal breath sounds bilaterally, clear to auscultation and percussion. No rales, rhonchi or wheezes noted. No increased work of breathing, no retractions or nasal flaring. Abdomen/GI: Soft, non-tender, with normal bowel sounds. No distension or tympany. No guarding or rebound. No evidence of tenderness throughout. MS/ Extremity: Pulses equal, no cyanosis. Neurovascular intact. Full, normal range of motion. Neuro: Awake and alert, GCS 15, oriented to person, place, time, and situation. Cranial nerves II-XII grossly intact. Sensory grossly intact. Psych: Awake, alert, with orientation to person, place and time. Behavior, mood, and affect are within normal limits. Vital Signs: 02:14 BP 119 / 80; Pulse 60; Resp 18; Temp 97.6; Pulse Ox 99% on R/A; ea 03:30 BP 90 / 67; Pulse 59; Resp 18; Pulse Ox 98% ; ea 04:00 BP 90 / 69; Pulse 56; Resp 18; Pulse Ox 98% ; ea 05:00 BP 95 / 64; Pulse 58; Resp 18; Pulse Ox 100% on R/A; ea MDM: 02:13 Patient medically screened. ps1 03:35 Data reviewed: vital signs, nurses notes, lab test result(s), EKG, and as a result, I ps1 will discharge patient. Counseling: I had a detailed discussion with the patient and/or guardian regarding: the historical points, exam findings, and any diagnostic results supporting the discharge/admit diagnosis, lab results, the need for outpatient follow up, a family practitioner, to return to the emergency department if symptoms worsen or persist or if there are any questions or concerns that arise at home. 03:36 ED course: Pt tolerating PO. Hgb stable. Metabolic panel cw mild dehydration. Stable. ps1 EKG normal. . 11/10 02:07 Order name: BMP; Complete Time: 03:35 ps1 11/10 02:07 Order name: CBC with Diff; Complete Time: 04:32 ps1 11/10 02:07 Order name: EKG - Nurse/Tech; Complete Time: 02:12 ps1 11/10 03:29 Order name: CBC Smear Scan; Complete Time: 04:32 EDMS EC:10 Rate is 64 beats/min. Rhythm is regular. QRS [place] is Normal. UT interval is normal. QRS ps1 interval is normal. QT interval is normal. No Q waves. T waves are Normal. No ST changes noted. Clinical impression: Normal ECG. Interpreted by me. Administered Medications: No medications were administered Disposition: 11/10/18 03:36 Discharged to Home. Impression: Lightheaded. - Condition is Stable. - Discharge Instructions: Dehydration, Adult. - Medication Reconciliation Form, Thank You Letter, Antibiotic Education, Prescription Opioid Use form. - Follow up: Private Physician; When: As needed; Reason: Recheck today's complaints, Continuance of care, Re-evaluation by your physician. Follow up: Emergency Department; When: As needed; Reason: Worsening of condition. - Problem is an ongoing problem. - Symptoms have improved. Signatures: Dispatcher [employer] EDBelen Almanza RN RN Jacquelin Carey RN RN ea Singer, Phillip, MD MD ps1 Corrections: (The following items were deleted from the chart) 06:00 03:36 11/10/2018 03:36 Discharged to Home. Impression: Lightheaded. Condition is ea Stable. Forms are Medication Reconciliation Form, Thank You Letter, Antibiotic Education, Prescription Opioid Use. Follow up: Private Physician; When: As needed; Reason: Recheck today's complaints, Continuance of care, Re-evaluation by your physician. Follow up: Emergency Department; When: As needed; Reason: Worsening of condition. Problem is an ongoing problem. Symptoms have improved. ps1
[2018-11-10 04:27] LABS: Blood Morphology Comment NOTED (NOT SEEN); Platelet Estimate ADEQ; Urine White Blood Cell Casts OK
--- NOTE | 2018-11-10 07:33 | EKG ---
Test Date: 2018-11-10 Test Time: 02:10:50 [employer]indergarten Paraprofessional: CARLOS MEASUREMENT RESULTS: Intervals: Rate: 64 NE: 152 QRSD: 78 QT: 438 QTc: 451 [place]: P: 71 NE: 152 QRS: 82 T: 76 INTERPRETIVE STATEMENTS: Normal sinus rhythm Normal ECG Compared to ECG 07/28/2018 02:01:57 Sinus arrhythmia no longer present Electronically Signed On 11-10-18 07:33:00 CDT by Mike Brian
== END 2018-11-10 06:00 | disposition home or self-care (01) ==
LOC: ER 01:57
DX: R42 Dizziness and giddiness (principal); D64.9 Anemia, unspecified; F31.70 Bipolar disorder, currently in remission, most recent episode unspecified; Z88.1 Allergy status to other antibiotic agents; Z88.8 Allergy status to other drugs, medicaments and biological substances
CPT/HCPCS: 36415; 80048; 85025; 93005; 99284

== ENCOUNTER 2018-11-16 03:06 | Emergency (ER) | payer SELFPAY ==
--- OUTSIDE RECORDS SUMMARY | 2018-11-16 03:08 | XMS REPORT | Clinical Summary ---
:1970 [facility] [address] [place] [address] Care Team Providers Name Role Phone Asked, [...] INFLUENZA VACCINE 11/02/2018 Results Not on fileafter 11/15/2017 Advance Directives Patient has advance care planning documents on file. For more information, please contact:[id number] [place] [address]
--- OUTSIDE RECORDS SUMMARY | 2018-11-16 03:09 | XMS REPORT | Clinical Summary ---
:1970 Author Organization [facility] Address [address] [place] [address] Care Team Providers Name Role Phone Pcp, [...] Vasquez ENDOSCOPY,CAPSULE MD Mack 09/03/2018 Travel 09/02/2018 [facility] General Internal Shaila Medina Colitis; - Encounter Medicine MD Jo Iron deficiency anemia, unspecified iron deficiency anemia type; 09/06/2018 Patel Valenzuela Bipolar 1 disorder (HCC); MD Mike Enteritis Lesli Arzate MD Vernon, Kimberly Ann, MD 09/02/2018 Travel after 11/15/2017 Social History Tobacco Use Types Packs/Day Years [...] procedure are in the results section. after 11/15/[address] abdomen/pelvis with IV contrast (09/05/2018 6:35 PM CDT) Specimen Narrative Performed At FINAL REPORT [employer]lines TECHNIQUE: CT of the abdomen and pelvis [...] MD Report Verified Date/Time:09/05/2018 19:42:13 Reading Location: [facility] Consult Reading Room Procedure Note [...] Report Verified Date/Time: 09/05/2018 19:42:13 Reading Location: [address] Consult Reading Room Performing Organization Address City/State/Zipcode Phone Number [employer]lines XR abdomen / KUB 1 view (09/05/2018 1:08 PM CDT) Specimen Narrative Performed At Addendum Begins [employer] RIS REPORT STATUS:A Addendum: The video capsule is seen projected over the right iliac wing. It could be in the distal ileum versus large bowel. If in exact location is needed. CT scan will be necessary. End of addendum. Signed: Reza Lira MD Report Verified Date/Time:09/05/2018 15:30:35 Reading Location: [facility] Radiology Reading Room Addendum Ends FINAL REPORT TECHNIQUE: Supine radiograph of the abdomen dated 09/05/2018 HISTORY: Evaluate for retained video capsule. COMPARISON: None IMPRESSION: No air-filled, dilated loops of bowel to suggest obstruction. No free intraperitoneal air. No abnormal soft tissue mass. No radiodense foreign body visualized. Bones are unremarkable. Signed: Reza Lira MD Report Verified Date/Time:09/05/2018 14:53:33 Reading Location: [facility] Radiology Reading Room Procedure Note Interface, External [...] Report Verified Date/Time: 09/05/2018 15:30:35 Reading Location: [facility] Radiology Reading Room Addendum Ends FINAL REPORT TECHNIQUE: Supine radiograph of the abdomen dated 09/05/2018 HISTORY: Evaluate for retained video capsule. COMPARISON: None IMPRESSION: No air-filled, dilated loops of bowel to suggest obstruction. No free intraperitoneal air. No abnormal soft tissue mass. No radiodense foreign body visualized. Bones are unremarkable. Signed: Reza Lira MD Report Verified Date/Time: 09/05/2018 14:53:33 Reading Location: [facility] Radiology Reading Room Performing Organization Address City/State/Zipcode Phone Number GE RIS CBC (Hemogram only) (09/05/2018 5:03 AM CDT)Only the most recent of3 resultswithin the time period is included. WBC 7.3 3.5 - 10.5 K/L [facility] RBC 3.92 (L) 3.93 - 5.22 M/L [facility] Hemoglobin 10.2 (L) 11.2 - 15.7 GM/DL [facility] Hematocrit 33.0 (L) 34.1 - 44.9 % [facility] MCV 84.2 79.4 - 94.8 fL [facility] MCH 26.0 25.6 - 32.2 pg [facility] MCHC 30.9 (L) 32.2 - 35.5 GM/DL [facility] RDW 18.8 (H) 11.7 - 14.4 % [facility] Platelets 380 150 - 450 K/CU MM [facility] MPV 10.3 9.4 - 12.3 fL [facility] nRBC 0 0 - 0 /100 WBC [facility] Specimen Blood Performing Organization Address City/State/Zipcode Phone Number [facility] [address] [place] [address] CENTER Basic metabolic panel (09/05/2018 5:03 AM CDT)Only the most recent of3 resultswithin the time period is included. Sodium 138 136 - 145 meq/L [facility] Potassium 4.3 3.5 - 5.1 meq/L [facility] Chloride 110 (H) 98 - 107 meq/L [facility] CO2 23 22 - 29 meq/L [facility] BUN 8 7 - 21 mg/dL [facility] Creatinine 0.66 0.57 - 1.25 mg/dL [facility] Glucose 107 (H) 70 - 105 mg/dL [facility] Calcium 9.0 8.4 - 10.2 mg/dL [facility] EGFR 95Comment: ESTIMATED GFR IS mL/min/1.73 sq m [facility] NOT ACCURATE CREATININE [facility]ICAL [facility]ENTER CLEARANCE IN PREDICTING GLOMERULAR FILTRATION RATE. ESTIMATED GFR IS NOT APPLICABLE FOR DIALYSIS PATIENTS. Specimen Blood Performing Organization Address City/State/Zipcode Phone Number [facility] [address] [place], [place] [id number] [phone] [place] Celiac Disease Panel (09/04/2018 5:46 PM CDT) Scan Result [facility] Celiac Disease Profile Refer to Celiac [facility] results. Specimen Blood Narrative Performed At Performing Organization Address City/State/Zipcode Phone Number [place] [address] [facility]ORPOR[facility] [address] [facility] C-Reactive Protein (09/04/2018 5:46 PM CDT) CRP 0.38 0.00 - 0.50 mg/dL [facility] Specimen Blood Performing Organization Address City/State/Zipcode Phone Number [facility] [address] [place] [address] [phone] CENTER GI Pathogen Profile by PCR -ID Only (09/04/2018 5:37 PM CDT) CAMPYLOBACTER (PCR) Not detected Not detected [facility] PLESIOMONAS SHIGELLOIDES (PCR) Not detected Not detected [facility] MEDICAL [place] SALMONELLA (PCR) Not detected Not detected [facility] MED[facility] [place] YERSINIA ENTEROCOLITICA (PCR) Not detected Not detected [facility] VIBRIO CHOLERAE (PCR) Not detected Not detected [facility] ENTEROAGGREGATIVE E. COLI (EAEC) Not detected Not detected [facility] BY PCR MEDICAL CENTER ENTEROPATHOGENIC E. COLI (EPEC) BY Not detected Not detected [facility] PCR MEDICAL CENTER ENTEROTOXIGENIC E. COLI (ETEC) Not detected Not detected [facility] LT/ST BY PCR [facility] SHIGA-LIKE TOXIN-PRODUCING E. COLI Not detected Not detected [facility] (STEC) STX1/STX2 [facility] E. COLI O157 (PCR) Not detected [facility] SHIGELLA/ENTEROINVASIVE E. COLI Not detected Not detected [facility] (EIEC) BY PCR [facility] CRYPTOSPORIDIUM (PCR) Not detected Not detected [facility] CYCLOSPORA CAYETANENSIS (PCR) Not detected Not detected [facility] ENTAMOEBA HISTOLYTICA (PCR) Not detected Not detected [facility] GIARDIA LAMBLIA (PCR) Not detected Not detected [facility] ADENOVIRUS F 40/41 (PCR) Not detected Not detected [facility] ASTROVIRUS (PCR) Not detected Not detected [facility] NOROVIRUS GI/GII (PCR) Not detected Not detected [facility] ROTAVIRUS A (PCR) Not detected Not detected [facility] SAPOVIRUS (I, II, IV, V) BY PCR Not detected Not detected [facility] VIBRIO (PARAHAEMOLYTICUS, Not detected Not detected [facility] VULNIFICUS) [facility] Specimen Stool Narrative Performed At Other viruses, parasites and bacteria not [facility] targeted by this PCR panel cannot be excluded; therefore clinical correlation and follow up of serology, culture results, and other molecular studies is required. The results are not intended to be used as the sole means for clinical diagnosis or patient management decisions. This sample was tested at the [facility] using the [employer] Gastrointestinal Panel. It is FDA cleared and has been verified and approved by the [facility] for clinical use. This laboratory is CLIA-certified and [employer] [place] (CAP)-accredited to perform high complexity testing. Performing Organization Address City/State/Zipcode Phone Number [facility] [address] [place] [address] [phone] CENTER H. pylori antigen, stool (09/04/2018 5:37 [...] [facility] *SPL [facility], [address] [place] [phone] Juan Mak MD, PhD Performing Organization Address City/State/Zipcode Phone Number [facility], [place] [address] [facility] [address] [facility] Iron, TIBC, % sat. (without ferritin) (09/04/2018 3:59 AM CDT) Iron 15.0 (L) 40.0 - 160.0 ug/dL [facility] TIBC 274 250 - 450 ug/dL [facility] Iron % Saturation 5 (L) 20 - 55 % [facility] Specimen Blood Performing Organization Address [facility] Phone Number [address] [address] CENTER Reticulocyte count (09/04/2018 3:59 AM CDT) % Retic 1.1 0.5 - 1.7 % [facility] Specimen Blood Performing Organization Address [facility] Phone Number [address] [address] CENTER Ferritin (09/04/2018 3:59 AM CDT) Ferritin 13 5 - 275 ng/mL [facility] Specimen Blood Performing Organization Address [facility] Phone Number [address] [address] [place] Screen, urine (09/03/2018 2:16 PM CDT) Preg Test, Ur Negative [facility] Specimen Urine Performing Organization Address City/State/Zipcode Phone Number [facility] [address] [place] [address] [phone] CENTER after 11/15/2017 Advance Directives For more information, please contact:[address] [phone] Code Status Date Activated Date Inactivated Comments Full Code 09/02/2018 9:07 PM 09/06/2018 2:52 PM This code status was determined by: Patient
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
--- OUTSIDE RECORDS SUMMARY | 2018-11-16 03:11 | XMS REPORT ---
:1970 [facility] Address [address] [place] [address] Care Team Providers Name Role Phone UNKNOWN, [...] Facility Department ID 2017-07-02 2017-07-02 Emergency E [facility] [id number] 08:16:00 08:16:00 Results Test Description Test Time Test Comments Text Results Atomic Results Result Comments CELIAC DISEASE PANEL 2018-09-08 08:06:00 Test Item Value Reference Range Comments SCAN RESULT (test lyqs=[id number]) CELIAC DISEASE PROFILE AUTOVERIFICATION Refer to Celiac Disease Panel (QUEST) (test xffm=[id number]) results. CT, [id number] 19:42:00Only need IV contrast, not POFINAL REPORT [...] Verified Date/Time: 09/05/2018 19:42: 13 Reading Location: [facility] C013 Consult Reading Room RAD, ABDOMEN/KUB, 1 VIEW [id number] 15:30:00Reason for exam:->look for retained video capsuleAddendum BeginsREPORT STATUS:A Addendum:The video capsule is seen projected over the right iliac wing. It could be in the distal ileum versus large bowel. If in exact location isneeded. CT scan will be necessary. End of addendum. Signed: Gisele Lira MDReport Verified Date/ Time: 09/05/2018 15:30:35 Reading Location: [facility] Radiology Reading RoomAddendum EndsFINAL REPORT TECHNIQUE: Supine radiograph of the abdomen dated 09/05/2018 HISTORY: Evaluate for retained video capsule. COMPARISON: None IMPRESSION:No air-filled, dilated loops of bowel to suggest obstruction. No free intraperitoneal air. No abnormal soft tissue mass. No radiodense foreign body visualized. Bones are unremarkable. Signed: Gisele Lira MDReport Verified Date/Time: 09/05/2018 14:53:33 Reading Location: [facility] Radiology Reading Room GI PATHOGEN PROFILE BY [id number] 10:43:00 Test Item Value Reference Range Comments CAMPYLOBACTER (PCR) (test hegc=[id number]) Not detected Not detected PLESIOMONAS SHIGELLOIDES (PCR) (test Not detected Not detected uqkj=2436283) SALMONELLA (PCR) (test hotf=1736247) Not detected Not detected YERSINIA ENTEROCOLITICA (PCR) (test Not detected Not detected juux=5636861) VIBRIO CHOLERAE (PCR) (test hkyh=2520680) Not detected Not detected ENTEROAGGREGATIVE E. COLI (EAEC) BY PCR (test Not detected Not detected sfhz=0413956) ENTEROPATHOGENIC E. COLI (EPEC) BY PCR (test Not detected Not detected yudb=8902961) ENTEROTOXIGENIC E. COLI (ETEC) LT/ST BY PCR Not detected Not detected (test njsy=1005548) SHIGA-LIKE TOXIN-PRODUCING E. COLI (STEC) Not detected Not detected STX1/STX2 (test dvka=7574236) E. COLI O157 (PCR) (test quou=9725480) Not detected SHIGELLA/ENTEROINVASIVE E. COLI (EIEC) BY PCR Not detected Not detected (test nyvm=5469557) CRYPTOSPORIDIUM (PCR) (test pkfb=5234643) Not detected Not detected CYCLOSPORA CAYETANENSIS (PCR) (test Not detected Not detected cldi=8444270) ENTAMOEBA HISTOLYTICA (PCR) (test mwil=4344768) Not detected Not detected GIARDIA LAMBLIA (PCR) (test csot=8285967) Not detected Not detected ADENOVIRUS F 40/41 (PCR) (test zcqg=5245378) Not detected Not detected ASTROVIRUS (PCR) (test aqxs=4410351) Not detected Not detected NOROVIRUS GI/GII (PCR) (test oudu=6550246) Not detected Not detected ROTAVIRUS A (PCR) (test zsvl=5300701) Not detected Not detected SAPOVIRUS (I, II, IV, V) BY PCR (test Not detected Not detected nbda=6989890) VIBRIO (PARAHAEMOLYTICUS, VULNIFICUS) (test Not detected Not detected joyl=8080898) Other viruses, parasites and bacteria not targeted by this PCR panel cannot be excluded; therefore clinical correlation and follow up of serology, culture results, and other molecular studies is required. The results are not intended to be used as the sole means for clinical diagnosis or patient management decisions. This sample was tested at the [facility] Molecular Diagnostics Laboratory using the [employer] Gastrointestinal Panel. It is FDA cleared and has been verified and approved by the [facility] Molecular Diagnostics Laboratory for clinical use. This laboratory is CLIA-certified and College ofAmerican Pathologists (CAP)-accredited to perform high complexity testing.BASIC METABOLIC [id number] 05:42:00 Test Item Value Reference Range Comments SODIUM (BEAKER) (test 138 meq/L 136-145 elkh=621) POTASSIUM (BEAKER) (test 4.3 meq/L 3.5-5.1 rxpe=968) CHLORIDE (BEAKER) (test 110 meq/L 98-107 bpcn=698) CO2 (BEAKER) (test 23 meq/L 22-29 irmh=942) BLOOD UREA NITROGEN 8 mg/dL 7-21 (BEAKER) (test uxky=500) CREATININE (BEAKER) (test 0.66 mg/dL 0.57-1.25 nmrx=556) GLUCOSE RANDOM (BEAKER) 107 mg/dL 70-105 (test dvpn=551) CALCIUM (BEAKER) (test 9.0 mg/dL 8.4-10.2 xtuc=752) EGFR (BEAKER) (test 95 mL/min/1.73 sq m ESTIMATED GFR IS NOT effj=2282) ACCURATE CREATININE CLEARANCE IN PREDICTING GLOMERULAR FILTRATION RATE. ESTIMATED GFR IS NOT APPLICABLE FOR DIALYSIS PATIENTS. CBC (HEMOGRAM ONLY)2018-09-05 05:23:00 Test Item Value Reference Range Comments WHITE BLOOD CELL COUNT (BEAKER) (test qjis=291) 7.3 K/ L 3.5-10.5 RED BLOOD CELL COUNT (BEAKER) (test liep=928) 3.92 M/ L 3.93-5.22 HEMOGLOBIN (BEAKER) (test eehp=577) 10.2 GM/DL 11.2-15.7 HEMATOCRIT (BEAKER) (test jlno=447) 33.0 % 34.1-44.9 MEAN CORPUSCULAR VOLUME (BEAKER) (test pnij=046) 84.2 fL 79.4-94.8 MEAN CORPUSCULAR HEMOGLOBIN (BEAKER) (test 26.0 pg 25.6-32.2 niju=794) MEAN CORPUSCULAR HEMOGLOBIN CONC (BEAKER) (test 30.9 GM/DL 32.2-35.5 spgq=003) RED CELL DISTRIBUTION WIDTH (BEAKER) (test 18.8 % 11.7-14.4 aovd=900) PLATELET COUNT (BEAKER) (test gqdy=174) 380 K/CU MM 150-450 MEAN PLATELET VOLUME (BEAKER) (test jbkt=662) 10.3 fL 9.4-12.3 NUCLEATED RED BLOOD CELLS (BEAKER) (test 0 /100 WBC 0-0 wkfa=126) C-REACTIVE [id number] 18:59:00 Test Item Value Reference Range Comments C-REACTIVE PROTEIN (BEAKER) (test zcxv=630) 0.38 mg/dL 0.00-0.50 [id number] 05:48:00 Test Item Value Reference Range Comments FERRITIN (BEAKER) (test kwfh=709) 13 ng/mL 5-275 BASIC METABOLIC [id number] 05:27:00 Test Item Value Reference Range Comments SODIUM (BEAKER) (test 139 meq/L 136-145 onoa=239) POTASSIUM (BEAKER) (test 4.0 meq/L 3.5-5.1 myke=422) CHLORIDE (BEAKER) (test 112 meq/L 98-107 lfer=229) CO2 (BEAKER) (test 23 meq/L 22-29 ejep=764) BLOOD UREA NITROGEN 3 mg/dL 7-21 (BEAKER) (test ynwg=820) CREATININE (BEAKER) (test 0.62 mg/dL 0.57-1.25 zarz=714) GLUCOSE RANDOM (BEAKER) 91 mg/dL 70-105 (test gobg=351) CALCIUM (BEAKER) (test 8.4 mg/dL 8.4-10.2 difc=185) EGFR (BEAKER) (test 102 mL/min/1.73 sq m ESTIMATED GFR IS NOT zqvg=4153) ACCURATE CREATININE CLEARANCE IN PREDICTING GLOMERULAR FILTRATION RATE. ESTIMATED GFR IS NOT APPLICABLE FOR DIALYSIS PATIENTS. IRON, TIBC, % SAT. (WITHOUT FERRITIN)2018-09-04 05:26:00 Test Item Value Reference Range Comments IRON (BEAKER) (test eukf=387) 15.0 ug/dL 40.0-160.0 TOTAL IRON BINDING CAPACITY (BEAKER) (test 274 ug/dL 250-450 uvwx=155) IRON % SATURATION (2) (BEAKER) (test ihvp=5977) 5 % 20-55 CBC (HEMOGRAM ONLY)2018-09-04 05:05:00 Test Item Value Reference Range Comments WHITE BLOOD CELL COUNT (BEAKER) (test ktvc=309) 5.9 K/ L 3.5-10.5 RED BLOOD CELL COUNT (BEAKER) (test smeo=462) 3.67 M/ L 3.93-5.22 HEMOGLOBIN (BEAKER) (test xbfh=752) 9.8 GM/DL 11.2-15.7 HEMATOCRIT (BEAKER) (test iran=858) 30.7 % 34.1-44.9 MEAN CORPUSCULAR VOLUME (BEAKER) (test odyd=829) 83.7 fL 79.4-94.8 MEAN CORPUSCULAR HEMOGLOBIN (BEAKER) (test 26.7 pg 25.6-32.2 wvgj=196) MEAN CORPUSCULAR HEMOGLOBIN CONC (BEAKER) (test 31.9 GM/DL 32.2-35.5 afne=317) RED CELL DISTRIBUTION WIDTH (BEAKER) (test 18.9 % 11.7-14.4 lbtl=982) PLATELET COUNT (BEAKER) (test tkwr=254) 361 K/CU MM 150-450 MEAN PLATELET VOLUME (BEAKER) (test ypai=102) 10.3 fL 9.4-12.3 NUCLEATED RED BLOOD CELLS (BEAKER) (test 0 /100 WBC 0-0 mdml=630) RETICULOCYTE [id number] 05:05:00 Test Item Value Reference Range Comments RETICULOCYTE COUNT PCT (BEAKER) (test rvbk=615) 1.1 % 0.5-1.7 SCREEN, [id number] 15:17:00 Test Item Value Reference Range Comments TEST URINE (BEAKER) (test pyuw=984) Negative BASIC METABOLIC [id number] 04:53:00 Test Item Value Reference Range Comments SODIUM (BEAKER) (test 136 meq/L 136-145 onzz=019) POTASSIUM (BEAKER) (test 3.8 meq/L 3.5-5.1 ukef=315) CHLORIDE (BEAKER) (test 109 meq/L 98-107 kvhk=727) CO2 (BEAKER) (test 24 meq/L 22-29 qqfk=687) BLOOD UREA NITROGEN 5 mg/dL 7-21 (BEAKER) (test vmdr=983) CREATININE (BEAKER) (test 0.60 mg/dL 0.57-1.25 robb=385) GLUCOSE RANDOM (BEAKER) 88 mg/dL 70-105 (test ptbx=977) CALCIUM (BEAKER) (test 8.3 mg/dL 8.4-10.2 grmi=470) EGFR (BEAKER) (test 106 mL/min/1.73 sq m ESTIMATED GFR IS NOT erkx=2990) ACCURATE CREATININE CLEARANCE IN PREDICTING GLOMERULAR FILTRATION RATE. ESTIMATED GFR IS NOT APPLICABLE FOR DIALYSIS PATIENTS. CBC (HEMOGRAM ONLY)2018-09-03 04:33:00 Test Item Value Reference Range Comments WHITE BLOOD CELL COUNT (BEAKER) (test jfyf=088) 5.8 K/ L 3.5-10.5 RED BLOOD CELL COUNT (BEAKER) (test rncs=442) 3.53 M/ L 3.93-5.22 HEMOGLOBIN (BEAKER) (test hfpw=245) 9.2 GM/DL 11.2-15.7 HEMATOCRIT (BEAKER) (test puul=500) 29.7 % 34.1-44.9 MEAN CORPUSCULAR VOLUME (BEAKER) (test sckd=591) 84.1 fL 79.4-94.8 MEAN CORPUSCULAR HEMOGLOBIN (BEAKER) (test 26.1 pg 25.6-32.2 gxwa=864) MEAN CORPUSCULAR HEMOGLOBIN CONC (BEAKER) (test 31.0 GM/DL 32.2-35.5 ncvl=506) RED CELL DISTRIBUTION WIDTH (BEAKER) (test 18.8 % 11.7-14.4 qvbu=637) PLATELET COUNT (BEAKER) (test dxgq=840) 337 K/CU MM 150-450 MEAN PLATELET VOLUME (BEAKER) (test iray=646) 9.7 fL 9.4-12.3 NUCLEATED RED BLOOD CELLS (BEAKER) (test 0 /100 WBC 0-0 clzh=370)
--- NOTE | 2018-11-16 03:36 | ER ---
Nurse's Notes [facility] Name: Dayami Espinosa Age: 48 yrs Sex: Female : 1970 Arrival Date: 11/16/2018 Time: 03:12 Bed 16 Private MD: Diagnosis: Encounter for screening, unspecified Presentation: 11/16 03:12 Presenting complaint: EMS states: "The patient is reporting general weakness and a jd3 headache. she has stable vitals. she denies nausea, vomiting, and diarrhea.". Transition of care: patient was not received from another setting of care. Onset of symptoms was November 16, 2018. Risk Assessment: Do you want to hurt yourself or someone else? Patient reports no desire to harm self or others. Initial Sepsis Screen: Does the patient meet any 2 criteria? No. Patient's initial sepsis screen is negative. Does the patient have a suspected source of infection? No. Patient's initial sepsis screen is negative. Care prior to arrival: None. 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 - Social history:: Smoking status: Patient uses tobacco products, smokes one pack cigarettes per day. - Ebola Screening: : Patient negative for fever greater than or equal to 101.5 degrees Fahrenheit, and additional compatible Ebola Virus Disease symptoms. Screenin:44 Abuse screen: Denies threats or abuse. Nutritional screening: No deficits noted. jv1 Tuberculosis screening: No symptoms or risk factors identified. Fall Risk Ambulatory Aid- None/Bed Rest/Nurse Assist (0 pts). Gait- Weak (10 pts.). Mental Status- Oriented to own ability (0 pts). Total Alfred Fall Scale indicates No Risk (0-24 pts). Assessment: 03:27 General: Appears in no apparent distress. Behavior is calm, cooperative, appropriate jv1 for age, Reports generalized weakness. Pain: Complains of pain in back Pain does not radiate. Pain currently is 7 out of 10 on a pain scale. Neuro: Level of Consciousness is awake, alert, obeys commands, Oriented to person, place, time, situation, Pulp Mixer are equal bilaterally Moves all extremities. Full function Gait is UNSTEADY, MINIMAL ASSIST NEEDED. Reports weakness generalized. Cardiovascular: No deficits noted. Denies chest pain, Capillary refill < 3 seconds. Respiratory: No deficits noted. Airway is patent Respiratory effort is even, unlabored, Respiratory pattern is regular, symmetrical. GI: No deficits noted. : No deficits noted. No signs and/or symptoms were reported regarding the genitourinary system. EENT: No deficits noted. No signs and/or symptoms were reported regarding the EENT system. Derm: No deficits noted. Musculoskeletal: Capillary refill < 3 seconds, Range of motion: intact in all extremities. 03:50 Reassessment: Patient appears in no apparent distress at this time. Patient and/or jv1 family updated on plan of care and expected duration. Pain level reassessed. Patient is alert, oriented x 3, equal unlabored respirations, skin warm/dry/pink. patient medical screened, pt assisted to the lobby using wheelchair. Vital Signs: 03:19 BP 119 / 86; Pulse 79; Resp 15 S; Temp 98.1(O); Pulse Ox 98.1% on R/A; Weight 48.08 kg jd3 (R); Height 5 ft. 3 in. (160.02 cm) (R); Pain 7/10; 03:19 Body Mass Index 18.78 (48.08 kg, 160.02 cm) jd3 ED Course: 03:12 Patient arrived in ED. jd3 03:12 Oliver Kaye MD is Attending Physician. gs 03:16 Triage completed. jd3 03:20 Arm band placed on. jd3 03:34 Matt Meraz RN is Primary Nurse. jd3 03:46 Patient has correct armband on for positive identification. Bed in low position. Call jv1 light in reach. Side rails up X2. 03:46 No provider procedures requiring assistance completed. Patient did not have IV access jv1 during this emergency room visit. Administered Medications: No medications were administered Outcome: 03:36 Discharge ordered by . 03:47 Medical screen evaluation completed per provider. Patient declined treatment. jv1 03:47 Condition: stable 03:47 Following a medical screening exam, the patient was provided information regarding alternative care sites and resources available per registration personnel. 03:51 Patient left the ED. jv1 Signatures: Oliver Kaye MD MD gs Davies, Jonathon RN RN jd3 Debora Sutton RN RN jv1
--- NOTE | 2018-11-16 03:37 | EDPHYS ---
Physician Documentation [facility] Name: Dayami Espinosa Age: 48 yrs Sex: Female : 1970 Arrival Date: 11/16/2018 Time: 03:12 Bed 16 Private MD: ED Physician Oliver Kaye HPI: 11/16 03:33 This 48 yrs old Female presents to ER via EMS with unknown complaint. gs 03:33 The patient presents with lightheadedness. Onset: The symptoms/episode began/occurred gs yesterday. Modifying factors: The symptoms are alleviated by nothing, the symptoms are aggravated by heat. Associated signs and symptoms: Pertinent negatives: abdominal pain, agitation, chest pain, focal weakness. Severity of symptoms: At their worst the symptoms were moderate in the emergency department the symptoms are unchanged. The patient has experienced similar episodes in the past, chronically. 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 - Social history:: Smoking status: Patient uses tobacco products, smokes one pack cigarettes per day. - Ebola Screening: : Patient negative for fever greater than or equal to 101.5 degrees Fahrenheit, and additional compatible Ebola Virus Disease symptoms. ROS: 03:33 All other systems are negative. gs Exam: 03:33 Head/Face: Normocephalic, atraumatic. Eyes: Pupils equal round and reactive to light, gs extra-ocular motions intact. Lids and lashes normal. Conjunctiva and sclera are non-icteric and not injected. Cornea within normal limits. Periorbital areas with no swelling, redness, or edema. ENT: Nares patent. No nasal discharge, no septal abnormalities noted. Tympanic membranes are normal and external auditory canals are clear. Oropharynx with no redness, swelling, or masses, exudates, or evidence of obstruction, uvula midline. Mucous membranes moist. Neck: Trachea midline, no thyromegaly or masses palpated, and no cervical lymphadenopathy. Supple, full range of motion without nuchal rigidity, or vertebral point tenderness. No Meningismus. Chest/axilla: Normal chest wall appearance and motion. Nontender with no deformity. No lesions are appreciated. Cardiovascular: Regular rate and rhythm with a normal S1 and S2. No gallops, murmurs, or rubs. Normal PMI, no JVD. No pulse deficits. Respiratory: Lungs have equal breath sounds bilaterally, clear to auscultation and percussion. No rales, rhonchi or wheezes noted. No increased work of breathing, no retractions or nasal flaring. Abdomen/GI: Soft, non-tender, with normal bowel sounds. No distension or tympany. No guarding or rebound. No evidence of tenderness throughout. Back: No spinal tenderness. No costovertebral tenderness. Full range of motion. Skin: Warm, dry with normal turgor. Normal color with no rashes, no lesions, and no evidence of cellulitis. MS/ Extremity: Pulses equal, no cyanosis. Neurovascular intact. Full, normal range of motion. Neuro: Awake and alert, GCS 15, oriented to person, place, time, and situation. Cranial nerves II-XII grossly intact. Motor strength 5/5 in all extremities. Sensory grossly intact. Cerebellar exam normal. Normal gait. 03:33 Constitutional: The patient appears alert, awake. 03:33 Neuro: Gait: is steady. 03:33 Psych: Behavior/mood is pleasant, Patient has no thoughts/intents to harm self or others. Vital Signs: 03:19 BP 119 / 86; Pulse 79; Resp 15 S; Temp 98.1(O); Pulse Ox 98.1% on R/A; Weight 48.08 kg jd3 (R); Height 5 ft. 3 in. (160.02 cm) (R); Pain 7/10; 03:19 Body Mass Index 18.78 (48.08 kg, 160.02 cm) jd3 MDM: 03:27 Patient medically screened. 03:33 Differential diagnosis: idiopathic dizziness, near-syncope, malingering. Data reviewed: vital signs, nurses notes. Administered Medications: No medications were administered Disposition: 11/16/18 03:36 Discharged to Home. Impression: Encounter for screening, unspecified. - Condition is Stable. - Medication Reconciliation Form, Thank You Letter, Antibiotic Education, Prescription Opioid Use form. Signatures: Oliver Kaye MD MD gs Matt Meraz RN RN jd3 Debora Sutton RN RN jv1 Corrections: (The following items were deleted from the chart) 03:51 03:36 11/16/2018 03:36 Discharged to Home. Impression: Encounter for screening, jv1 unspecified. Condition is Stable. Forms are Medication Reconciliation Form, Thank You Letter, Antibiotic Education, Prescription Opioid Use. gs
== END 2018-11-16 03:51 | disposition home or self-care (01) ==
LOC: ER 03:06
DX: Z13.9 Encounter for screening, unspecified (principal); R42 Dizziness and giddiness; D64.9 Anemia, unspecified; F31.9 Bipolar disorder, unspecified; F17.210 Nicotine dependence, cigarettes, uncomplicated; Z88.0 Allergy status to penicillin; Z88.8 Allergy status to other drugs, medicaments and biological substances
CPT/HCPCS: 99282

== ENCOUNTER 2018-11-22 22:26 | Emergency (ER) | payer SELFPAY ==
--- OUTSIDE RECORDS SUMMARY | 2018-11-22 22:28 | XMS REPORT | Clinical Summary ---
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
--- OUTSIDE RECORDS SUMMARY | 2018-11-22 22:29 | XMS REPORT | Clinical Summary ---
:1970 Author Organization [facility] Address [address] [place] [address] Care Team Providers Name Role Phone Pcp, [...] Vasquez ENDOSCOPY,CAPSULE MD Mack 09/03/2018 Travel 09/02/2018 [facility] General Internal Shaila Medina Colitis; - Encounter Medicine MD Jo Iron deficiency anemia, unspecified iron deficiency anemia type; 09/06/2018 Patel Valenzuela Bipolar 1 disorder (HCC); MD Mike Enteritis Lesli Arzate MD Vernon, Kimberly Ann, MD 09/02/2018 Travel after 11/21/2017 Social History Tobacco Use Types Packs/Day Years [...] procedure are in the results section. after 11/21/[address] abdomen/pelvis with IV contrast (09/05/2018 6:35 PM CDT) Specimen Narrative Performed At FINAL REPORT [facility] TECHNIQUE: CT of the abdomen and pelvis [...] Report Verified Date/Time:09/05/2018 19:42:13 Reading Location: [facility] Consult Reading Room [...] Report Verified Date/Time: 09/05/2018 19:42:13 Reading Location: [address] Consult Reading Room Performing Organization Address City/State/Zipcode Phone Number [facility] XR abdomen / KUB 1 view (09/05/2018 1:08 PM CDT) Specimen Narrative Performed At Addendum Begins [facility] RIS REPORT STATUS:A Addendum: The video capsule is seen projected over the right iliac wing. It could be in the distal ileum versus large bowel. If in exact location is needed. CT scan will be necessary. End of addendum. Signed: Reza Lira MD Report Verified Date/Time:09/05/2018 15:30:35 Reading Location: [facility] Radiology Reading Room Addendum Ends FINAL REPORT TECHNIQUE: Supine radiograph of the abdomen dated 09/05/2018 HISTORY: Evaluate for retained video capsule. COMPARISON: None IMPRESSION: No air-filled, dilated loops of bowel to suggest obstruction. No free intraperitoneal air. No abnormal soft tissue mass. No radiodense foreign body visualized. Bones are unremarkable. Signed: Reza Lira MD Report Verified Date/Time:09/05/2018 14:53:33 Reading Location: [facility] Radiology Reading Room Procedure Note Interface, [...] Report Verified Date/Time: 09/05/2018 15:30:35 Reading Location: [facility] Radiology Reading Room Addendum Ends FINAL REPORT TECHNIQUE: Supine radiograph of the abdomen dated 09/05/2018 HISTORY: Evaluate for retained video capsule. COMPARISON: None IMPRESSION: No air-filled, dilated loops of bowel to suggest obstruction. No free intraperitoneal air. No abnormal soft tissue mass. No radiodense foreign body visualized. Bones are unremarkable. Signed: Reza Lira MD Report Verified Date/Time: 09/05/2018 14:53:33 Reading Location: [facility] Radiology Reading Room Performing Organization Address City/State/Zipcode Phone Number [facility]IS CBC (Hemogram only) (09/05/2018 5:03 AM CDT)Only the most recent of3 resultswithin the time period is included. WBC 7.3 3.5 - 10.5 K/L [facility] RBC 3.92 (L) 3.93 - 5.22 M/L [facility] Hemoglobin 10.2 (L) 11.2 - 15.7 GM/DL [facility] Hematocrit 33.0 (L) 34.1 - 44.9 % [facility] MCV 84.2 79.4 - 94.8 fL [facility] MCH 26.0 25.6 - 32.2 pg [facility] MCHC 30.9 (L) 32.2 - 35.5 GM/DL [facility] RDW 18.8 (H) 11.7 - 14.4 % [facility] Platelets 380 150 - 450 K/CU MM [facility] MPV 10.3 9.4 - 12.3 fL [facility] nRBC 0 0 - 0 /100 WBC [facility] Specimen Blood Performing Organization Address City/State/Zipcode Phone Number [facility] [address] [place] [address] [phone] CENTER Basic metabolic panel (09/05/2018 5:03 AM CDT)Only the most recent of3 resultswithin the time period is included. Sodium 138 136 - 145 meq/L [facility] Potassium 4.3 3.5 - 5.1 meq/L [facility] Chloride 110 (H) 98 - 107 meq/L [facility] CO2 23 22 - 29 meq/L [facility] BUN 8 7 - 21 mg/dL [facility] Creatinine 0.66 0.57 - 1.25 mg/dL [facility] Glucose 107 (H) 70 - 105 mg/dL [facility] Calcium 9.0 8.4 - 10.2 mg/dL [facility] EGFR 95Comment: ESTIMATED GFR IS mL/min/1.73 sq m [facility] NOT ACCURATE [facility] CLEARANCE IN PREDICTING GLOMERULAR FILTRATION RATE. ESTIMATED GFR IS NOT APPLICABLE FOR DIALYSIS PATIENTS. Specimen Blood Performing Organization Address City/State/Zipcode Phone Number [facility] [address] [place], [place] [id number] [place] Celiac Disease Panel (09/04/2018 5:46 PM CDT) Scan Result [facility] Celiac Disease Profile Refer to Celiac [facility] results. Specimen Blood Narrative Performed At Performing Organization Address City/State/Zipcode Phone Number [place] [address] [facility]ORPOR[facility] [id number] [facility] C-Reactive Protein (09/04/2018 5:46 PM CDT) CRP 0.38 0.00 - 0.50 mg/dL [facility] Specimen Blood Performing Organization Address City/State/Zipcode Phone Number [facility] [address] [place] [address] [phone] CENTER GI Pathogen Profile by PCR -ID Only (09/04/2018 5:37 PM CDT) CAMPYLOBACTER (PCR) Not detected Not detected [facility] PLESIOMONAS SHIGELLOIDES (PCR) Not detected Not detected [facility] MEDICAL [place] SALMONELLA (PCR) Not detected Not detected [facility] [place] YERSINIA ENTEROCOLITICA (PCR) Not detected Not detected [facility] VIBRIO CHOLERAE (PCR) Not detected Not detected [facility] ENTEROAGGREGATIVE E. COLI (EAEC) Not detected Not detected [facility] BY PCR MEDICAL CENTER ENTEROPATHOGENIC E. COLI (EPEC) BY Not detected Not detected [facility] PCR MEDICAL CENTER ENTEROTOXIGENIC E. COLI (ETEC) Not detected Not detected [facility] LT/ST BY PCR [facility] SHIGA-LIKE TOXIN-PRODUCING E. COLI Not detected Not detected [facility] (STEC) STX1/STX2 [facility] E. COLI O157 (PCR) Not detected [facility] SHIGELLA/ENTEROINVASIVE E. COLI Not detected Not detected [facility] (EIEC) BY PCR [facility] CRYPTOSPORIDIUM (PCR) Not detected Not detected [facility] CYCLOSPORA CAYETANENSIS (PCR) Not detected Not detected [facility] ENTAMOEBA HISTOLYTICA (PCR) Not detected Not detected [facility] GIARDIA LAMBLIA (PCR) Not detected Not detected [facility] ADENOVIRUS F 40/41 (PCR) Not detected Not detected [facility] ASTROVIRUS (PCR) Not detected Not detected [facility] NOROVIRUS GI/GII (PCR) Not detected Not detected [facility] ROTAVIRUS A (PCR) Not detected Not detected [facility] SAPOVIRUS (I, II, IV, V) BY PCR Not detected Not detected [facility] VIBRIO (PARAHAEMOLYTICUS, Not detected Not detected [facility] VULNIFICUS) [facility] Specimen Stool Narrative Performed At Other viruses, parasites and bacteria not [facility] targeted by this PCR panel cannot be excluded; therefore clinical correlation and follow up of serology, culture results, and other molecular studies is required. The results are not intended to be used as the sole means for clinical diagnosis or patient management decisions. This sample was tested at the [facility] using the [employer] Gastrointestinal Panel. It is FDA cleared and has been verified and approved by the [facility] for clinical use. This laboratory is CLIA-certified and [employer] (CAP)-accredited to perform high complexity testing. Performing Organization Address City/State/Zipcode Phone Number [facility] [address] [place] [address] [phone] CENTER H. pylori antigen, stool (09/04/2018 5:37 [...] Lab [facility] *SPL [facility], [address] [place] [phone] Juan Mak MD, PhD Performing Organization Address City/State/Zipcode Phone Number [facility], [place] [address] [facility] [address] [facility] Iron, TIBC, % sat. (without ferritin) (09/04/2018 3:59 AM CDT) Iron 15.0 (L) 40.0 - 160.0 ug/dL [facility] TIBC 274 250 - 450 ug/dL [facility] Iron % Saturation 5 (L) 20 - 55 % [facility] Specimen Blood Performing Organization Address [facility] Phone Number [address] [address] [phone] CENTER Reticulocyte count (09/04/2018 3:59 AM CDT) % Retic 1.1 0.5 - 1.7 % [facility] Specimen Blood Performing Organization Address [facility] Phone Number [address] [address] CENTER Ferritin (09/04/2018 3:59 AM CDT) Ferritin 13 5 - 275 ng/mL [facility] Specimen Blood Performing Organization Address [facility] Phone Number [address] [address] [place] Screen, urine (09/03/2018 2:16 PM CDT) Preg Test, Ur Negative [facility] Specimen Urine Performing Organization Address City/State/Zipcode Phone Number [facility] [address] [place] [address] CENTER after 11/21/2017 Advance Directives For more information, please contact:[address] [phone] Code Status Date Activated Date Inactivated Comments Full Code 09/02/2018 9:07 PM 09/06/2018 2:52 PM This code status was determined by: Patient
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
--- OUTSIDE RECORDS SUMMARY | 2018-11-22 22:31 | XMS REPORT ---
:1970 [facility] [address] [place] [address] Care Team Providers Name Role Phone UNKNOWN, [...] Facility Department ID 2017-07-02 2017-07-02 Emergency E [facility] MED [id number] 08:16:00 08:16:00 Results Test Description Test Time Test Comments Text Results Atomic Results Result Comments CELIAC DISEASE PANEL 2018-09-08 08:06:00 Test Item Value Reference Range Comments SCAN RESULT (test kuok=[id number]) CELIAC DISEASE PROFILE AUTOVERIFICATION Refer to Celiac Disease Panel (QUEST) (test iwvb=[id number]) results. CT, [id number] 19:42:00Only need IV contrast, not POFINAL REPORT [...] Verified Date/Time: 09/05/2018 19:42: 13 Reading Location: [facility] C013 Consult Reading Room RAD, ABDOMEN/KUB, 1 VIEW [id number] 15:30:00Reason for exam:->look for retained video capsuleAddendum BeginsREPORT STATUS:A Addendum:The video capsule is seen projected over the right iliac wing. It could be in the distal ileum versus large bowel. If in exact location isneeded. CT scan will be necessary. End of addendum. Signed: Gisele Lira MDReport Verified Date/ Time: 09/05/2018 15:30:35 Reading Location: [facility] Radiology Reading RoomAddendum EndsFINAL REPORT TECHNIQUE: Supine radiograph of the abdomen dated 09/05/2018 HISTORY: Evaluate for retained video capsule. COMPARISON: None IMPRESSION:No air-filled, dilated loops of bowel to suggest obstruction. No free intraperitoneal air. No abnormal soft tissue mass. No radiodense foreign body visualized. Bones are unremarkable. Signed: Gisele Lira MDReport Verified Date/Time: 09/05/2018 14:53:33 Reading Location: [facility] Radiology Reading Room GI PATHOGEN PROFILE BY [id number] 10:43:00 Test Item Value Reference Range Comments CAMPYLOBACTER (PCR) (test khna=[id number]) Not detected Not detected PLESIOMONAS SHIGELLOIDES (PCR) (test Not detected Not detected sgcy=4360251) SALMONELLA (PCR) (test flxx=0412997) Not detected Not detected YERSINIA ENTEROCOLITICA (PCR) (test Not detected Not detected ofuh=8540647) VIBRIO CHOLERAE (PCR) (test spvl=9044208) Not detected Not detected ENTEROAGGREGATIVE E. COLI (EAEC) BY PCR (test Not detected Not detected maej=7595110) ENTEROPATHOGENIC E. COLI (EPEC) BY PCR (test Not detected Not detected dbms=1404547) ENTEROTOXIGENIC E. COLI (ETEC) LT/ST BY PCR Not detected Not detected (test afli=3922902) SHIGA-LIKE TOXIN-PRODUCING E. COLI (STEC) Not detected Not detected STX1/STX2 (test wdsn=6270394) E. COLI O157 (PCR) (test gsir=9846641) Not detected SHIGELLA/ENTEROINVASIVE E. COLI (EIEC) BY PCR Not detected Not detected (test ctoc=8773945) CRYPTOSPORIDIUM (PCR) (test brwm=8984927) Not detected Not detected CYCLOSPORA CAYETANENSIS (PCR) (test Not detected Not detected etdl=8225946) ENTAMOEBA HISTOLYTICA (PCR) (test fojw=1750124) Not detected Not detected GIARDIA LAMBLIA (PCR) (test qhuc=0188791) Not detected Not detected ADENOVIRUS F 40/41 (PCR) (test powz=4083728) Not detected Not detected ASTROVIRUS (PCR) (test jixb=5696388) Not detected Not detected NOROVIRUS GI/GII (PCR) (test xial=5855686) Not detected Not detected ROTAVIRUS A (PCR) (test hbcj=9129921) Not detected Not detected SAPOVIRUS (I, II, IV, V) BY PCR (test Not detected Not detected giyo=4945600) VIBRIO (PARAHAEMOLYTICUS, VULNIFICUS) (test Not detected Not detected elct=5996772) Other viruses, parasites and bacteria not targeted by this PCR panel cannot be excluded; therefore clinical correlation and follow up of serology, culture results, and other molecular studies is required. The results are not intended to be used as the sole means for clinical diagnosis or patient management decisions. This sample was tested at the [facility] using the VivaRealArray Gastrointestinal Panel. It is FDA cleared and has been verified and approved by the [facility] for clinical use. This laboratory is CLIA-certified and College ofAmerican Pathologists (CAP)-accredited to perform high complexity testing.BASIC METABOLIC [id number] 05:42:00 Test Item Value Reference Range Comments SODIUM (BEAKER) (test 138 meq/L 136-145 dffu=097) POTASSIUM (BEAKER) (test 4.3 meq/L 3.5-5.1 bpsm=465) CHLORIDE (BEAKER) (test 110 meq/L 98-107 nezb=080) CO2 (BEAKER) (test 23 meq/L 22-29 qqkk=520) BLOOD UREA NITROGEN 8 mg/dL 7-21 (BEAKER) (test vhjm=946) CREATININE (BEAKER) (test 0.66 mg/dL 0.57-1.25 issn=089) GLUCOSE RANDOM (BEAKER) 107 mg/dL 70-105 (test ionz=167) CALCIUM (BEAKER) (test 9.0 mg/dL 8.4-10.2 ivel=723) EGFR (BEAKER) (test 95 mL/min/1.73 sq m ESTIMATED GFR IS NOT zrcn=2195) ACCURATE CREATININE CLEARANCE IN PREDICTING GLOMERULAR FILTRATION RATE. ESTIMATED GFR IS NOT APPLICABLE FOR DIALYSIS PATIENTS. CBC (HEMOGRAM ONLY)2018-09-05 05:23:00 Test Item Value Reference Range Comments WHITE BLOOD CELL COUNT (BEAKER) (test ttub=653) 7.3 K/ L 3.5-10.5 RED BLOOD CELL COUNT (BEAKER) (test vmuw=557) 3.92 M/ L 3.93-5.22 HEMOGLOBIN (BEAKER) (test dqdi=385) 10.2 GM/DL 11.2-15.7 HEMATOCRIT (BEAKER) (test sftf=496) 33.0 % 34.1-44.9 MEAN CORPUSCULAR VOLUME (BEAKER) (test zxbw=912) 84.2 fL 79.4-94.8 MEAN CORPUSCULAR HEMOGLOBIN (BEAKER) (test 26.0 pg 25.6-32.2 mhpb=000) MEAN CORPUSCULAR HEMOGLOBIN CONC (BEAKER) (test 30.9 GM/DL 32.2-35.5 juui=953) RED CELL DISTRIBUTION WIDTH (BEAKER) (test 18.8 % 11.7-14.4 seax=650) PLATELET COUNT (BEAKER) (test vdwg=320) 380 K/CU MM 150-450 MEAN PLATELET VOLUME (BEAKER) (test mpml=327) 10.3 fL 9.4-12.3 NUCLEATED RED BLOOD CELLS (BEAKER) (test 0 /100 WBC 0-0 pkdk=299) C-REACTIVE [id number] 18:59:00 Test Item Value Reference Range Comments C-REACTIVE PROTEIN (BEAKER) (test fahb=841) 0.38 mg/dL 0.00-0.50 [id number] 05:48:00 Test Item Value Reference Range Comments FERRITIN (BEAKER) (test rghj=979) 13 ng/mL 5-275 BASIC METABOLIC [id number] 05:27:00 Test Item Value Reference Range Comments SODIUM (BEAKER) (test 139 meq/L 136-145 rdyp=784) POTASSIUM (BEAKER) (test 4.0 meq/L 3.5-5.1 hres=446) CHLORIDE (BEAKER) (test 112 meq/L 98-107 gynl=570) CO2 (BEAKER) (test 23 meq/L 22-29 jiqy=224) BLOOD UREA NITROGEN 3 mg/dL 7-21 (BEAKER) (test xrlg=428) CREATININE (BEAKER) (test 0.62 mg/dL 0.57-1.25 vosf=370) GLUCOSE RANDOM (BEAKER) 91 mg/dL 70-105 (test afkq=434) CALCIUM (BEAKER) (test 8.4 mg/dL 8.4-10.2 jdvl=157) EGFR (BEAKER) (test 102 mL/min/1.73 sq m ESTIMATED GFR IS NOT kfbv=6037) ACCURATE CREATININE CLEARANCE IN PREDICTING GLOMERULAR FILTRATION RATE. ESTIMATED GFR IS NOT APPLICABLE FOR DIALYSIS PATIENTS. IRON, TIBC, % SAT. (WITHOUT FERRITIN)2018-09-04 05:26:00 Test Item Value Reference Range Comments IRON (BEAKER) (test jiov=991) 15.0 ug/dL 40.0-160.0 TOTAL IRON BINDING CAPACITY (BEAKER) (test 274 ug/dL 250-450 cqrm=270) IRON % SATURATION (2) (BEAKER) (test tvdf=6554) 5 % 20-55 CBC (HEMOGRAM ONLY)2018-09-04 05:05:00 Test Item Value Reference Range Comments WHITE BLOOD CELL COUNT (BEAKER) (test ixvp=626) 5.9 K/ L 3.5-10.5 RED BLOOD CELL COUNT (BEAKER) (test vhkz=101) 3.67 M/ L 3.93-5.22 HEMOGLOBIN (BEAKER) (test zxzj=836) 9.8 GM/DL 11.2-15.7 HEMATOCRIT (BEAKER) (test qmcw=227) 30.7 % 34.1-44.9 MEAN CORPUSCULAR VOLUME (BEAKER) (test yqjc=962) 83.7 fL 79.4-94.8 MEAN CORPUSCULAR HEMOGLOBIN (BEAKER) (test 26.7 pg 25.6-32.2 npip=030) MEAN CORPUSCULAR HEMOGLOBIN CONC (BEAKER) (test 31.9 GM/DL 32.2-35.5 trtw=003) RED CELL DISTRIBUTION WIDTH (BEAKER) (test 18.9 % 11.7-14.4 zjrt=106) PLATELET COUNT (BEAKER) (test lzza=416) 361 K/CU MM 150-450 MEAN PLATELET VOLUME (BEAKER) (test qgdp=445) 10.3 fL 9.4-12.3 NUCLEATED RED BLOOD CELLS (BEAKER) (test 0 /100 WBC 0-0 sglt=581) RETICULOCYTE [id number] 05:05:00 Test Item Value Reference Range Comments RETICULOCYTE COUNT PCT (BEAKER) (test riei=552) 1.1 % 0.5-1.7 SCREEN, [id number] 15:17:00 Test Item Value Reference Range Comments TEST URINE (BEAKER) (test bhtn=131) Negative BASIC METABOLIC [id number] 04:53:00 Test Item Value Reference Range Comments SODIUM (BEAKER) (test 136 meq/L 136-145 gppv=156) POTASSIUM (BEAKER) (test 3.8 meq/L 3.5-5.1 nsna=891) CHLORIDE (BEAKER) (test 109 meq/L 98-107 jlqs=711) CO2 (BEAKER) (test 24 meq/L 22-29 ntxa=825) BLOOD UREA NITROGEN 5 mg/dL 7-21 (BEAKER) (test okgc=815) CREATININE (BEAKER) (test 0.60 mg/dL 0.57-1.25 qzmj=967) GLUCOSE RANDOM (BEAKER) 88 mg/dL 70-105 (test zpyw=957) CALCIUM (BEAKER) (test 8.3 mg/dL 8.4-10.2 jwzu=739) EGFR (BEAKER) (test 106 mL/min/1.73 sq m ESTIMATED GFR IS NOT biuh=6914) ACCURATE CREATININE CLEARANCE IN PREDICTING GLOMERULAR FILTRATION RATE. ESTIMATED GFR IS NOT APPLICABLE FOR DIALYSIS PATIENTS. CBC (HEMOGRAM ONLY)2018-09-03 04:33:00 Test Item Value Reference Range Comments WHITE BLOOD CELL COUNT (BEAKER) (test oltw=267) 5.8 K/ L 3.5-10.5 RED BLOOD CELL COUNT (BEAKER) (test bpfk=224) 3.53 M/ L 3.93-5.22 HEMOGLOBIN (BEAKER) (test ncsm=480) 9.2 GM/DL 11.2-15.7 HEMATOCRIT (BEAKER) (test vpai=450) 29.7 % 34.1-44.9 MEAN CORPUSCULAR VOLUME (BEAKER) (test xhuo=924) 84.1 fL 79.4-94.8 MEAN CORPUSCULAR HEMOGLOBIN (BEAKER) (test 26.1 pg 25.6-32.2 ttog=226) MEAN CORPUSCULAR HEMOGLOBIN CONC (BEAKER) (test 31.0 GM/DL 32.2-35.5 dqwp=951) RED CELL DISTRIBUTION WIDTH (BEAKER) (test 18.8 % 11.7-14.4 keru=550) PLATELET COUNT (BEAKER) (test mwll=218) 337 K/CU MM 150-450 MEAN PLATELET VOLUME (BEAKER) (test vmvt=578) 9.7 fL 9.4-12.3 NUCLEATED RED BLOOD CELLS (BEAKER) (test 0 /100 WBC 0-0 ldby=377)
[2018-11-22] MEDS ORDERED: ONDANSETRON 4 MG (ODT) TAB ONE (22:50)
--- NOTE | 2018-11-22 22:56 | ER ---
Nurse's Notes [facility] Name: Dayami Espinosa Age: 48 yrs Sex: Female : 1970 Arrival Date: 11/22/2018 Time: 22:28 Bed 15 Private MD: Diagnosis: Viral infection Presentation: 11/22 22:24 Presenting complaint: Patient states: that she is having nausea, vomiting and dizziness fc that started at 1700 today. She was seen here in the ER last week for the same symptoms. She states that she has drank well today and eaten 3 meals. EMS states that [place] the park and was ambulatory at scene. Transition of care: patient was not received from another setting of care. Onset of symptoms was November 22, 2018 at 17:00. Risk Assessment: Do you want to hurt yourself or someone else? Patient reports no desire to harm self or others. Initial Sepsis Screen: Does the patient meet any 2 criteria? No. Patient's initial sepsis screen is negative. Does the patient have a suspected source of infection? No. Patient's initial sepsis screen is negative. Care prior to arrival: Glucose check: 94. 22:24 Method Of Arrival: EMS: [facility] 22:24 Acuity: JAZMIN 3 fc CIG[employer] P[employer]ER [employer]: 22:24 unknown rr5 Historical: - Allergies: 22:43 Amoxicillin; fc 22:43 Pseudoephedrine; fc - Home Meds: 22:43 Depakote 250 mg Oral TbEC 1 tab in the morning for Bipolar Disorder in Remission fc [Active]; - PMHx: 22:43 Anemia; Bipolar disorder; gastritis; Ovarian cyst; fc - PSHx: 22:43 brain surgery; fc - Immunization history:: Last tetanus immunization: up to date. - Social history:: Smoking status: Patient uses tobacco products, smokes one-half pack cigarettes per day, Patient/guardian denies using alcohol, street drugs. - Ebola Screening: : Patient negative for fever greater than or equal to 101.5 degrees Fahrenheit, and additional compatible Ebola Virus Disease symptoms Patient denies exposure to infectious person Patient denies travel to an Ebola-affected area in the 21 days before illness onset. Screenin:39 Abuse screen: Denies threats or abuse. Nutritional screening: No deficits noted. fc Tuberculosis screening: No symptoms or risk factors identified. Fall Risk Fall in past 12 months (25 points). No secondary diagnosis (0 pts). No IV (0 pts). Ambulatory Aid- None/Bed Rest/Nurse Assist (0 pts). Gait- Weak (10 pts.). Mental Status- Overestimates/Forgets Limitations (15 pts.). Total Alfred Fall Scale indicates High Risk Score (45 or more points). Fall prevention measures have been instituted. Side Rails Up X 2 Placed Close to Nursing Station Frequent Obs/Assessments Occuring As available patient and family educated on Fall Prevention Program and Strategies. Assessment: 22:50 General: Appears in no apparent distress. comfortable, Behavior is calm, cooperative, rr5 appropriate for age. Pain: Denies pain. Neuro: Level of Consciousness is awake, alert, obeys commands, Oriented to person, place, time, situation, Appropriate for age. Cardiovascular: Capillary refill < 3 seconds Patient's skin is warm and dry. Respiratory: Airway is patent Respiratory effort is even, unlabored, Respiratory pattern is regular, symmetrical. GI: Abdomen is flat, Reports nausea. : No signs and/or symptoms were reported regarding the genitourinary system. EENT: No signs and/or symptoms were reported regarding the EENT system. Derm: Skin is intact, Skin temperature is warm. Musculoskeletal: Circulation, motion, and sensation intact. Capillary refill < 3 seconds. 23:20 Reassessment: Patient appears in no apparent distress at this time. Patient is alert, rr5 oriented x 3, equal unlabored respirations, skin warm/dry/pink. discharge instruction given and explained without complaints made. Patient states feeling better. Patient states symptoms have improved. Vital Signs: 22:24 BP 117 / 77; Pulse 76; Resp 18; Temp 97.7(O); Pulse Ox 100% on R/A; Weight 48.08 kg fc (R); Height 5 ft. 3 in. (160.02 cm) (R); Pain 0/10; 23:23 BP 105 / 70; Pulse 75; Resp 17; Pulse Ox 99% on R/A; rr5 22:24 Body Mass Index 18.78 (48.08 kg, 160.02 cm) ED Course: 22:24 Arm band placed on Patient placed in an exam room, on a stretcher. 22:28 Patient arrived in ED. ds1 22:38 Triage completed. fc 22:39 Patient has correct armband on for positive identification. Bed in low position. Call light in reach. Side rails up X2. Pulse ox on. NIBP on. 22:39 No provider procedures requiring assistance completed. fc 22:41 Derrek Martines MD is Attending Physician. pkl 22:48 Brandin Figueroa, RN is Primary Nurse. rr5 23:02 Patient did not have IV access during this emergency room visit. rr5 Administered Medications: 22:54 Drug: Zofran 4 mg Route: PO; rr5 23:25 Follow up: Response: No adverse reaction rr5 Outcome: 22:55 Discharge ordered by . pkl 23:23 Discharged to home ambulatory. rr5 23:23 Condition: stable 23:23 Discharge instructions given to patient, Instructed on discharge instructions, follow up and referral plans. medication usage, Demonstrated understanding of instructions, follow-up care, medications, Prescriptions given X 1. 23:24 Patient left the ED. rr5 Signatures: Derrek Martines MD MD pkTosha Koch RN RN Marjorie Caldwell ds1 Brandin Figueroa, RN RN rr5
--- NOTE | 2018-11-22 22:56 | EDPHYS ---
Physician Documentation [facility] Name: Dayami Espinosa Age: 48 yrs Sex: Female : 1970 Arrival Date: 11/22/2018 Time: 22:28 Bed 15 Private MD: ED Physician Derrek Martines HPI: 11/22 22:41 This 48 yrs old Female presents to ER via EMS with complaints of pkl Nausea/Vomiting. 22:50 The patient presents to the emergency department with nausea, that is mild. Onset: The pkl symptoms/episode began/occurred just prior to arrival, 6 hour(s) ago. Associated signs and symptoms: Pertinent positives: dizziness. DOCUMENTATION CLERK: 22:24 unknown rr5 Historical: - Allergies: 22:43 Amoxicillin; fc 22:43 Pseudoephedrine; fc - Home Meds: 22:43 Depakote 250 mg Oral TbEC 1 tab in the morning for Bipolar Disorder in Remission fc [Active]; - PMHx: 22:43 Anemia; Bipolar disorder; gastritis; Ovarian cyst; fc - PSHx: 22:43 brain surgery; fc - Immunization history:: Last tetanus immunization: up to date. - Social history:: Smoking status: Patient uses tobacco products, smokes one-half pack cigarettes per day, Patient/guardian denies using alcohol, street drugs. - Ebola Screening: : Patient negative for fever greater than or equal to 101.5 degrees Fahrenheit, and additional compatible Ebola Virus Disease symptoms Patient denies exposure to infectious person Patient denies travel to an Ebola-affected area in the 21 days before illness onset. ROS: 22:50 Eyes: Negative for injury, pain, redness, and discharge, ENT: Negative for injury, pkl pain, and discharge, Neck: Negative for injury, pain, and swelling, Cardiovascular: Negative for chest pain, palpitations, and edema, Respiratory: Negative for shortness of breath, cough, wheezing, and pleuritic chest pain. 22:50 Abdomen/GI: Positive for nausea. 22:50 Back: Negative for acute changes. 22:50 : Negative for urinary symptoms. 22:50 MS/extremity: Negative for acute changes. 22:50 Skin: Negative for rash. 22:50 Neuro: Positive for dizziness. Exam: 22:50 Head/Face: Normocephalic, atraumatic. Eyes: Pupils equal round and reactive to light, pkl extra-ocular motions intact. Lids and lashes normal. Conjunctiva and sclera are non-icteric and not injected. Cornea within normal limits. Periorbital areas with no swelling, redness, or edema. ENT: Nares patent. No nasal discharge, no septal abnormalities noted. Tympanic membranes are normal and external auditory canals are clear. Oropharynx with no redness, swelling, or masses, exudates, or evidence of obstruction, uvula midline. Mucous membranes moist. Neck: Trachea midline, no thyromegaly or masses palpated, and no cervical lymphadenopathy. Supple, full range of motion without nuchal rigidity, or vertebral point tenderness. No Meningismus. Chest/axilla: Normal chest wall appearance and motion. Nontender with no deformity. No lesions are appreciated. Cardiovascular: Regular rate and rhythm with a normal S1 and S2. No gallops, murmurs, or rubs. Normal PMI, no JVD. No pulse deficits. Respiratory: Lungs have equal breath sounds bilaterally, clear to auscultation and percussion. No rales, rhonchi or wheezes noted. No increased work of breathing, no retractions or nasal flaring. Abdomen/GI: Soft, non-tender, with normal bowel sounds. No distension or tympany. No guarding or rebound. No evidence of tenderness throughout. Back: No spinal tenderness. No costovertebral tenderness. Full range of motion. Skin: Warm, dry with normal turgor. Normal color with no rashes, no lesions, and no evidence of cellulitis. MS/ Extremity: Pulses equal, no cyanosis. Neurovascular intact. Full, normal range of motion. Neuro: Awake and alert, GCS 15, oriented to person, place, time, and situation. Cranial nerves II-XII grossly intact. Motor strength 5/5 in all extremities. Sensory grossly intact. Cerebellar exam normal. Normal gait. Vital Signs: 22:24 BP 117 / 77; Pulse 76; Resp 18; Temp 97.7(O); Pulse Ox 100% on R/A; Weight 48.08 kg fc (R); Height 5 ft. 3 in. (160.02 cm) (R); Pain 0/10; 23:23 BP 105 / 70; Pulse 75; Resp 17; Pulse Ox 99% on R/A; rr5 22:24 Body Mass Index 18.78 (48.08 kg, 160.02 cm) MDM: 22:41 Patient medically screened. pkl 22:50 Data reviewed: vital signs, nurses notes. pkl Administered Medications: 22:54 Drug: Zofran 4 mg Route: PO; rr5 23:25 Follow up: Response: No adverse reaction rr5 Disposition: 11/22/18 22:55 Discharged to Home. Impression: Viral infection. - Condition is Stable. - Prescriptions for Zofran 4 mg Oral Tablet - take 1 tablet by ORAL route every 12 hours As needed; 6 tablet. - Medication Reconciliation Form, Thank You Letter, Antibiotic Education, Prescription Opioid Use form. - Follow up: Private Physician; When: 2 - 3 days; Reason: Re-evaluation by your physician. - Problem is new. - Symptoms have improved. Signatures: Derrek Martines MD MD pkl Tosha Oliver RN RN Brandin Figueroa RN RN rr5 Corrections: (The following items were deleted from the chart) 23:24 22:55 11/22/2018 22:55 Discharged to Home. Impression: Viral infection. Condition is rr5 Stable. Forms are Medication Reconciliation Form, Thank You Letter, Antibiotic Education, Prescription Opioid Use. Follow up: Private Physician; When: 2 - 3 days; Reason: Re-evaluation by your physician. Problem is new. Symptoms have improved. pkl
== END 2018-11-22 23:24 | disposition home or self-care (01) ==
LOC: ER 22:26
DX: B34.9 Viral infection, unspecified (principal); F31.9 Bipolar disorder, unspecified; Z88.1 Allergy status to other antibiotic agents

== ENCOUNTER 2018-11-29 01:55 | Emergency (ER) | payer SELFPAY ==
[2018-11-29] MEDS ORDERED: ONDANSETRON 4 MG (ODT) TAB ONE (02:19)
--- NOTE | 2018-11-29 04:30 | EDPHYS ---
Physician Documentation [facility] Name: Dayami Espinosa Age: 48 yrs Sex: Female : 1970 Arrival Date: 11/29/2018 Time: 03:28 Bed 13 Private MD: ED Physician Oliver Kaye HPI: 11/29 03:40 This 48 yrs old Female presents to ER via Unassigned with complaints of gs nausea. 03:40 The patient presents to the emergency department with nausea. Onset: The gs symptoms/episode began/occurred yesterday. Possible causes: unknown. The symptoms are aggravated by nothing. The symptoms are alleviated by nothing. Associated signs and symptoms: Pertinent negatives: abdominal pain, constipation, diarrhea, dysuria, fever, GI bleeding, hematuria, vomiting. Severity of symptoms: At their worst the symptoms were very mild in the emergency department the symptoms are unchanged. The patient has experienced similar episodes in the past, multiple times. ROS: 03:40 All other systems are negative. gs Exam: 03:40 Head/Face: Normocephalic, atraumatic. ENT: Nares patent. No nasal discharge, no gs septal abnormalities noted. Tympanic membranes are normal and external auditory canals are clear. Oropharynx with no redness, swelling, or masses, exudates, or evidence of obstruction, uvula midline. Mucous membranes moist. Cardiovascular: Regular rate and rhythm with a normal S1 and S2. No gallops, murmurs, or rubs. Normal PMI, no JVD. No pulse deficits. Respiratory: Lungs have equal breath sounds bilaterally, clear to auscultation and percussion. No rales, rhonchi or wheezes noted. No increased work of breathing, no retractions or nasal flaring. Abdomen/GI: Soft, non-tender, with normal bowel sounds. No distension or tympany. No guarding or rebound. No evidence of tenderness throughout. Back: No spinal tenderness. No costovertebral tenderness. Full range of motion. Skin: Warm, dry with normal turgor. Normal color with no rashes, no lesions, and no evidence of cellulitis. MS/ Extremity: Pulses equal, no cyanosis. Neurovascular intact. Full, normal range of motion. Neuro: Awake and alert, GCS 15, oriented to person, place, time, and situation. Cranial nerves II-XII grossly intact. Motor strength 5/5 in all extremities. Sensory grossly intact. Cerebellar exam normal. Normal gait. 03:40 Constitutional: The patient appears alert, awake. Vital Signs: 03:30 BP 96 / 74; Pulse 73; Resp 18; Pulse Ox 99% on R/A; lc1 MDM: 03:34 Patient medically screened. 03:40 Data reviewed: vital signs, nurses notes. Response to treatment: the patient's symptoms gs have markedly improved after treatment, the patient's condition has returned to base line, and as a result, I will discharge patient. Administered Medications: No medications were administered Disposition: 11/29/18 03:41 Discharged to Home. Impression: Nausea. - Condition is Stable. - Discharge Instructions: Nausea, Adult. - Medication Reconciliation Form, Thank You Letter, Antibiotic Education, Prescription Opioid Use form. - Follow up: Private Physician; When: 5 - 6 days; Reason: Re-evaluation by your physician. Signatures: Qiana Gonzalez lc1 Oliver Kaye MD MD Corrections: (The following items were deleted from the chart) 04:16 03:41 11/29/2018 03:41 Discharged to Home. Impression: Nausea. Condition is Stable. lc1 Forms are Medication Reconciliation Form, Thank You Letter, Antibiotic Education, Prescription Opioid Use. Follow up: Private Physician; When: 5 - 6 days; Reason: Re-evaluation by your physician. gs
--- OUTSIDE RECORDS SUMMARY | 2018-11-29 04:30 | XMS REPORT | Clinical Summary ---
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
--- OUTSIDE RECORDS SUMMARY | 2018-11-29 04:30 | XMS REPORT | Clinical Summary ---
:1970 Author Organization [facility] Address [address] [place] [address] Care Team Providers Name Role Phone Pcp, [...] Vasquez ENDOSCOPY,CAPSULE MD Mack 09/03/2018 Travel 09/02/2018 [facility] General Internal Shaila Medina Colitis; - Encounter Medicine MD Jo Iron deficiency anemia, unspecified iron deficiency anemia type; 09/06/2018 Patel Valenzuela Bipolar 1 disorder (HCC); MD Mike Enteritis Lesli Arzate MD Vernon, Kimberly Ann, MD 09/02/2018 Travel after 11/28/2017 Social History Tobacco Use Types Packs/Day Years [...] procedure are in the results section. after 11/28/[address] abdomen/pelvis with IV contrast (09/05/2018 6:35 PM CDT) Specimen Narrative Performed At FINAL REPORT flux - neutrinity TECHNIQUE: CT of the abdomen and pelvis [...] Report Verified Date/Time:09/05/2018 19:42:13 Reading Location: [facility] C0[facility] Consult Reading Room Procedure Note Interface, [...] Report Verified Date/Time: 09/05/2018 19:42:13 Reading Location: [address] Consult Reading Room Performing Organization Address City/State/Zipcode Phone Number flux - neutrinity XR abdomen / KUB 1 view (09/05/2018 1:08 PM CDT) Specimen Narrative Performed At Addendum Begins [employer] RIS REPORT STATUS:A Addendum: The video capsule is seen projected over the right iliac wing. It could be in the distal ileum versus large bowel. If in exact location is needed. CT scan will be necessary. End of addendum. Signed: Reza Lira MD Report Verified Date/Time:09/05/2018 15:30:35 Reading Location: [facility] Radiology Reading Room Addendum Ends FINAL REPORT TECHNIQUE: Supine radiograph of the abdomen dated 09/05/2018 HISTORY: Evaluate for retained video capsule. COMPARISON: None IMPRESSION: No air-filled, dilated loops of bowel to suggest obstruction. No free intraperitoneal air. No abnormal soft tissue mass. No radiodense foreign body visualized. Bones are unremarkable. Signed: Reza Lira MD Report Verified Date/Time:09/05/2018 14:53:33 Reading Location: [facility] Radiology Reading Room Procedure Note [...] Report Verified Date/Time: 09/05/2018 15:30:35 Reading Location: [facility] Radiology Reading Room Addendum Ends FINAL REPORT TECHNIQUE: Supine radiograph of the abdomen dated 09/05/2018 HISTORY: Evaluate for retained video capsule. COMPARISON: None IMPRESSION: No air-filled, dilated loops of bowel to suggest obstruction. No free intraperitoneal air. No abnormal soft tissue mass. No radiodense foreign body visualized. Bones are unremarkable. Signed: Reza Lira MD Report Verified Date/Time: 09/05/2018 14:53:33 Reading Location: [facility] Radiology Reading Room Performing Organization Address City/State/Zipcode Phone Number GE RIS CBC (Hemogram only) (09/05/2018 5:03 AM CDT)Only the most recent of3 resultswithin the time period is included. WBC 7.3 3.5 - 10.5 K/L [facility] RBC 3.92 (L) 3.93 - 5.22 M/L [facility] Hemoglobin 10.2 (L) 11.2 - 15.7 GM/DL [facility] Hematocrit 33.0 (L) 34.1 - 44.9 % [facility] MCV 84.2 79.4 - 94.8 fL [facility] MCH 26.0 25.6 - 32.2 pg [facility] MCHC 30.9 (L) 32.2 - 35.5 GM/DL [facility] RDW 18.8 (H) 11.7 - 14.4 % [facility] Platelets 380 150 - 450 K/CU MM [facility] MPV 10.3 9.4 - 12.3 fL [facility] nRBC 0 0 - 0 /100 WBC [facility] Specimen Blood Performing Organization Address City/State/Zipcode Phone Number [facility] [address] [place] [address] [phone] CENTER Basic metabolic panel (09/05/2018 5:03 AM CDT)Only the most recent of3 resultswithin the time period is included. Sodium 138 136 - 145 meq/L [facility] Potassium 4.3 3.5 - 5.1 meq/L [facility] Chloride 110 (H) 98 - 107 meq/L [facility] CO2 23 22 - 29 meq/L [facility] BUN 8 7 - 21 mg/dL [facility] Creatinine 0.66 0.57 - 1.25 mg/dL [facility] Glucose 107 (H) 70 - 105 mg/dL [facility] Calcium 9.0 8.4 - 10.2 mg/dL [facility] EGFR 95Comment: ESTIMATED GFR IS mL/min/1.73 sq m [facility] NOT ACCURATE CREATININE MEDICAL CENTER CLEARANCE IN PREDICTING GLOMERULAR FILTRATION RATE. ESTIMATED GFR IS NOT APPLICABLE FOR DIALYSIS PATIENTS. Specimen Blood Performing Organization Address City/State/Zipcode Phone Number [facility] [address] [place], [place] [id number] [phone] [place] Celiac Disease Panel (09/04/2018 5:46 PM CDT) Scan Result [facility] Celiac Disease Profile Refer to Celiac [facility]over[facility] results. Specimen Blood Narrative Performed At Performing Organization Address City/State/Zipcode Phone Number [place] [address] [facility] C-Reactive Protein (09/04/2018 5:46 PM CDT) CRP 0.38 0.00 - 0.50 mg/dL [facility] Specimen Blood Performing Organization Address City/State/Zipcode Phone Number [facility] [address] [place] [address] CENTER GI Pathogen Profile by PCR -ID Only (09/04/2018 5:37 PM CDT) CAMPYLOBACTER (PCR) Not detected Not detected [facility] PLESIOMONAS SHIGELLOIDES (PCR) Not detected Not detected [facility] MEDICAL [place] SALMONELLA (PCR) Not detected Not detected [facility] [place] YERSINIA ENTEROCOLITICA (PCR) Not detected Not detected [facility] VIBRIO CHOLERAE (PCR) Not detected Not detected [facility] ENTEROAGGREGATIVE E. COLI (EAEC) Not detected Not detected [facility] BY PCR MEDICAL CENTER ENTEROPATHOGENIC E. COLI (EPEC) BY Not detected Not detected [facility] PCR MEDICAL CENTER ENTEROTOXIGENIC E. COLI (ETEC) Not detected Not detected [facility] LT/ST BY PCR [facility] SHIGA-LIKE TOXIN-PRODUCING E. COLI Not detected Not detected [facility] (STEC) STX1/STX2 [facility] E. COLI O157 (PCR) Not detected [facility] SHIGELLA/ENTEROINVASIVE E. COLI Not detected Not detected [facility] (EIEC) BY PCR [facility] CRYPTOSPORIDIUM (PCR) Not detected Not detected [facility] CYCLOSPORA CAYETANENSIS (PCR) Not detected Not detected [facility] ENTAMOEBA HISTOLYTICA (PCR) Not detected Not detected [facility] GIARDIA LAMBLIA (PCR) Not detected Not detected [facility] ADENOVIRUS F 40/41 (PCR) Not detected Not detected [facility] ASTROVIRUS (PCR) Not detected Not detected [facility] NOROVIRUS GI/GII (PCR) Not detected Not detected [facility] ROTAVIRUS A (PCR) Not detected Not detected [facility] SAPOVIRUS (I, II, IV, V) BY PCR Not detected Not detected [facility] VIBRIO (PARAHAEMOLYTICUS, Not detected Not detected [facility] VULNIFICUS) [facility] Specimen Stool Narrative Performed At Other viruses, parasites and bacteria not [facility] targeted by this PCR panel cannot be excluded; therefore clinical correlation and follow up of serology, culture results, and other molecular studies is required. The results are not intended to be used as the sole means for clinical diagnosis or patient management decisions. This sample was tested at the [facility] using the [employer] Gastrointestinal Panel. It is FDA cleared and has been verified and approved by the [facility] for clinical use. This laboratory is CLIA-certified and [employer] (CAP)-accredited to perform high complexity testing. Performing Organization Address City/State/Zipcode Phone Number [facility] [address] [place] [address] CENTER H. pylori antigen, stool (09/04/2018 5:37 [...] Lab [facility] *SPL [facility], [address] [place] [phone] Juan Mak MD, PhD Performing Organization Address City/State/Zipcode Phone Number [facility], [place] [address] [facility] [address] Iron, TIBC, % sat. (without ferritin) (09/04/2018 3:59 AM CDT) Iron 15.0 (L) 40.0 - 160.0 ug/dL [facility] TIBC 274 250 - 450 ug/dL [facility] Iron % Saturation 5 (L) 20 - 55 % [facility] Specimen Blood Performing Organization Address [facility] Phone Number [address] [address] CENTER Reticulocyte count (09/04/2018 3:59 AM CDT) % Retic 1.1 0.5 - 1.7 % [facility] Specimen Blood Performing Organization Address [facility] Phone Number [address] [address] CENTER Ferritin (09/04/2018 3:59 AM CDT) Ferritin 13 5 - 275 ng/mL [facility] Specimen Blood Performing Organization Address [facility] Phone Number [address] [address] [place] Screen, urine (09/03/2018 2:16 PM CDT) Preg Test, Ur Negative [facility] Specimen Urine Performing Organization Address City/State/Zipcode Phone Number [facility] [address] [place] [address] CENTER after 11/28/2017 Advance Directives For more information, please contact:[address] [phone] Code Status Date Activated Date Inactivated Comments Full Code 09/02/2018 9:07 PM 09/06/2018 2:52 PM This code status was determined by: Patient
--- NOTE | 2018-11-29 04:31 | ER ---
Nurse's Notes [facility] Name: Dayami Espinosa Age: 48 yrs Sex: Female : 1970 Arrival Date: 11/29/2018 Time: 03:28 Bed 13 Private MD: Diagnosis: Nausea Screenin/28 03:30 Abuse screen: Denies threats or abuse. Nutritional screening: No deficits noted. lc1 Nutritional screening: No deficits noted. Tuberculosis screening: No symptoms or risk factors identified. Fall Risk None identified. Assessment: 03:58 General: See paper charting. Pain: Denies pain. 1 Vital Signs: 03:30 BP 96 / 74; Pulse 73; Resp 18; Pulse Ox 99% on R/A; lc1 ED Course: 03:28 Patient arrived in ED. 03:30 Patient has correct armband on for positive identification. Placed in gown. Bed in low lc1 position. Side rails up X 1. 03:30 No provider procedures requiring assistance completed. Patient did not have IV access lc1 during this emergency room visit. 03:34 Oliver Kaye MD is Attending Physician. 03:58 Qiana Gonzalez is Primary Nurse. [facility] Administered Medications: No medications were administered Outcome: 03:30 Discharged to home ambulatory. [facility] 03:30 Condition: good 03:30 Discharge instructions given to patient. 03:41 Discharge ordered by . 04:16 Patient left the ED. [facility] Signatures: Tosha Oliver RN RN Qiana Gonzalez [facility] Oliver Kaye MD MD
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
--- OUTSIDE RECORDS SUMMARY | 2018-11-29 04:32 | XMS REPORT | Summary of Care ---
:1970 Author Organization [facility] Address [address] [place] [address] Care Team Providers Name Role Phone Pcp, Patient Does Not Have A Primary Care Provider Nancy Gibbs [facility] Drip Pumper Reason for Visit Reason Comments Hospital / frequent ED visits. Encounter Details Date Type Department Care Team Description 11/27/2018 Patient Outreach [facility] Edilia Gonzalez RN [address] (frequent ED [facility] visits[facility] [place], [place] [id number] Allergies No Known Allergiesdocumented as of this encounter (statuses as of 11/27/2018) Medications Medication Sig Dispensed Refills Start Date End Date Status divalproex sodium Take by mouth. 0 Active (DEPAKOTE ORAL) documented as of this encounter (statuses as of 11/27/2018) Active Problems Problem Noted Date Lower abdominal pain 08/22/2017 Acute pancreatitis 08/21/2017 Mild protein-calorie malnutrition 08/21/2017 Large ovary 08/21/2017 Other facial bones, closed fracture 04/09/2006 documented as of this encounter (statuses as of 11/27/2018) Social History Tobacco Use Types Packs/Day Years [...] Signs Not on filedocumented in this encounter Progress Notes Edilia Gonzalez RN - 11/27/2018 4:53 PM CDTCM attempted to f/u with the patient. The patient's listed contact number is no longer in service.CM attempted to call alternative number listed as "father" as the listed "mother's " contact has not returned any calls/vm's left on machine. MALINI Sweet, RN, [facility] Outpatient Operations AnalystWater Main Installer HelperFormerly [facility], [facility] O: [phone] M: [phone] documented in this encounter Plan of Treatment Health Maintenance Due Date Last Done Comments PNEUMOCOCCAL 0-64 YEARS COMBINED SERIES (1 of - 1975 PPSV23) DTaP,Tdap,and Td Vaccines (1 - Tdap) 02/04/1988 PAP SMEAR 1990 MAMMOGRAM 2009 INFLUENZA VACCINE (#1) 2018 documented as of this encounter Results Not on filedocumented in this encounter
--- OUTSIDE RECORDS SUMMARY | 2018-11-29 04:32 | XMS REPORT | Summary of Care ---
:1970 Author Organization [facility] Address [address] [place] [address] Care Team Providers Name Role Phone Pcp, Patient Does Not Have A Primary Care Provider Nancy Gibbs [facility] Teacher Associate Reason for Referral Radiology Services (STAT) Status Reason Specialty Diagnoses / Referred By Referred To Procedures Contact Contact New Request Diagnostic Diagnoses Right foot pain Umu Barillas Radiology Procedures XR FOOT 3+ VW RIGHT J, DO [address] [phone] Radiology Services (STAT) Status Reason Specialty Diagnoses / Referred By Referred To Procedures Contact Contact New Request Diagnostic Diagnoses Right foot pain Umu Barillas Radiology Procedures XR FOOT 3+ VW RIGHT J, DO [address] [phone] Reason for Visit Reason Comments Ankle Pain right Auth/Cert Status Reason Specialty Diagnoses / Referred By Referred To Procedures Contact Contact Emergency Medicine Diagnoses ankle pain [facility] [address] [place] [address] [place] [address] Encounter Details Date Type Department Care Team Description 11/26/2018 Emergency [facility] Umu Barillas, Right foot pain Department DO (Primary Dx) [address] [place] [address] [place], [place] [address] [phone] Allergies No Known Allergiesdocumented as of this encounter (statuses as of 11/26/2018) Medications Medication Sig Dispensed Refills Start Date End Date Status divalproex sodium Take by mouth. 0 Active (DEPAKOTE ORAL) documented as of this encounter (statuses as of 11/26/2018) Active Problems Problem Noted Date Lower abdominal pain 08/22/2017 Acute pancreatitis 08/21/2017 Mild protein-calorie malnutrition 08/21/2017 Large ovary 08/21/2017 Other facial bones, closed fracture 04/09/2006 documented as of this encounter (statuses as of 11/26/2018) Social History Tobacco Use Types Packs/Day Years [...] Sign Reading Time Taken Comments Blood Pressure 136/61 11/26/2018 3:35 AM CDT Pulse 84 11/26/2018 3:35 AM CDT Temperature 36.9 C (98.5 F) 11/26/2018 3:35 AM CDT Respiratory Rate 18 11/26/2018 3:35 AM CDT Oxygen Saturation 99% 11/26/2018 3:35 AM CDT Inhaled Oxygen Concentration - - Weight 48.1 kg (106 lb) 11/26/2018 3:35 AM CDT Height - - Body Mass Index 18.78 11/04/2018 1:38 AM CDT documented in this encounter Discharge Instructions Umu Gallego DO - 11/26/2018DIAGNOSIS 1. Foot pain NO LIFE-THREATENING FINDINGS ON TODAY'S EXAM. PROCEDURES IN THE ER TODAY: Xray foot MEDICATIONS ADMINISTERED IN THE ER TODAY: Motrin YOUR PRESCRIPTIONS AND [id number] MEDICATION RECOMMENDATIONS: None SPECIAL CARE INSTRUCTIONS: None FOLLOW-UP RECOMMENDATIONS: RECOMMEND FOLLOW-UP WITH A PRIMARY CARE PROVIDER OR SPECIALIST IN 2-5 DAYS, ESPECIALLY IF NO IMPROVEMENT IN SYMPTOMS. TO FOLLOW-UP WITHIN THE [facility], TRY THESE OPTIONS (CLINIC APPOINTMENTS AVAILABLE ON QFKS-NE-HGUC BASIS): 1. SCHEDULE AN APPOINTMENT ONLINE AT [email or web address] 2. OR CALL THE [facility] ACCESS CENTER AT OR 3. OR CALL YOUR [facility] PHYSICIAN'S OFFICE DIRECTLY IF YOU ARE ALREADY AN ESTABLISHED [facility] PATIENT. OR, YOU MAY FOLLOW-UP WITH A PROVIDER OF YOUR CHOICE, SUCH : 1. A PHYSICIAN OF YOUR CHOICE 2. [facility], . LOCATIONS IN [facility] 3. [facility], [address] [place], [place]; RETURN TO ER FOR WORSENING OF SYMPTOMS. AttachmentsThe following attachments cannot be sent through Care Everywhere.Arthritis in the Foot, What Is (Burkinan)Arthritis in the Foot, Treating (Burkinan)documented in this encounter Plan of Treatment Health Maintenance Due Date Last Done Comments PNEUMOCOCCAL 0-64 YEARS COMBINED SERIES (1 of - 1975 PPSV23) DTaP,Tdap,and Td Vaccines (1 - Tdap) 02/04/1988 PAP SMEAR 1990 MAMMOGRAM 2009 INFLUENZA VACCINE (Retired version) 12/03/2018 documented as of this encounter Procedures Procedure Name Priority Date/Time Associated Diagnosis Comments XR FOOT 3+ VW STAT 11/26/2018 3:52 AM Right foot pain Results for this RIGHT CDT procedure are in the results section. NOTICE OF PRIVACY Routine 11/26/2018 3:32 AM PRACTICES CDT CONSENT/REFUSAL FOR Routine 11/26/2018 3:31 AM DIAGNOSIS AND CDT TREATMENT documented in this encounter Results XR FOOT 3+ VW RIGHT (11/26/2018 3:52 AM CDT) Specimen Impressions Performed At PACS/VR/DOSE No acute osseous injury identified. Severe osteoarthritis of the first metatarsophalangeal joint RL: 5252 Narrative Performed At PACS/VR/DOSE CLINICAL HISTORY: Right foot pain ORDERING PHYSICIAN: UMU BARILLAS TECHNIQUE: 3 views. COMPARISON: None. FINDINGS: No fracture or dislocation.Surrounding soft tissues are unremarkable. There is severe joint space narrowing of the first metatarsophalangeal joint. Procedure Note [facility], Radiant Results Inft User - 11/26/2018 4:16 AM CDT CLINICAL HISTORY: Right foot pain ORDERING PHYSICIAN: UMU BARILLAS TECHNIQUE: 3 views. COMPARISON: None. FINDINGS: No fracture or dislocation. Surrounding soft tissues are unremarkable. There is severe joint space narrowing of the first metatarsophalangeal joint. IMPRESSION No acute osseous injury identified. Severe osteoarthritis of the first metatarsophalangeal joint RL: 5252 Performing Organization Address City/State/Zipcode Phone Number PACS/VR/DOSE documented in this encounter Visit Diagnoses Diagnosis Right foot pain - Primary Pain in limb documented in this encounter Administered Medications Medication Order MAR Action Action Date Dose Rate Site ibuprofen (IBU) tablet 600 mg Given 11/26/2018 3:47 AM CDT 600 mg 600 mg, Oral, ONCE, 1 dose, 11/26/18 at 0345, MIRIAM documented in this encounter
--- OUTSIDE RECORDS SUMMARY | 2018-11-29 04:32 | XMS REPORT ---
:1970 [facility] Address [address] [place] [address] Care Team Providers Name Role Phone UNKNOWN, [...] 2017-07-02 2017-07-02 Emergency E [facility] MED [id number] 08:16:00 08:16:00 Results Test Description Test Time Test Comments Text Results Atomic Results Result Comments CELIAC DISEASE PANEL 2018-09-08 08:06:00 Test Item Value Reference Range Comments SCAN RESULT (test ntvn=[id number]) CELIAC DISEASE PROFILE AUTOVERIFICATION Refer to Celiac Disease Panel (QUEST) (test vgve=[id number]) results. CT, [id number] 19:42:00Only need IV contrast, not POFINAL REPORT [...] Verified Date/Time: 09/05/2018 19:42: 13 Reading Location: [facility] C013 Consult Reading Room RAD, ABDOMEN/KUB, 1 VIEW [id number] 15:30:00Reason for exam:->look for retained video capsuleAddendum BeginsREPORT STATUS:A Addendum:The video capsule is seen projected over the right iliac wing. It could be in the distal ileum versus large bowel. If in exact location isneeded. CT scan will be necessary. End of addendum. Signed: Gisele Lira MDReport Verified Date/ Time: 09/05/2018 15:30:35 Reading Location: [facility] Radiology Reading RoomAddendum EndsFINAL REPORT TECHNIQUE: Supine radiograph of the abdomen dated 09/05/2018 HISTORY: Evaluate for retained video capsule. COMPARISON: None IMPRESSION:No air-filled, dilated loops of bowel to suggest obstruction. No free intraperitoneal air. No abnormal soft tissue mass. No radiodense foreign body visualized. Bones are unremarkable. Signed: Gisele Lira MDReport Verified Date/Time: 09/05/2018 14:53:33 Reading Location: [facility] Radiology Reading Room GI PATHOGEN PROFILE BY [id number] 10:43:00 Test Item Value Reference Range Comments CAMPYLOBACTER (PCR) (test kdyz=[id number]) Not detected Not detected PLESIOMONAS SHIGELLOIDES (PCR) (test Not detected Not detected xrcj=2779272) SALMONELLA (PCR) (test nozz=4572657) Not detected Not detected YERSINIA ENTEROCOLITICA (PCR) (test Not detected Not detected vuxz=5215896) VIBRIO CHOLERAE (PCR) (test ecow=6319134) Not detected Not detected ENTEROAGGREGATIVE E. COLI (EAEC) BY PCR (test Not detected Not detected nkpb=1560905) ENTEROPATHOGENIC E. COLI (EPEC) BY PCR (test Not detected Not detected iwga=5153023) ENTEROTOXIGENIC E. COLI (ETEC) LT/ST BY PCR Not detected Not detected (test weem=2409577) SHIGA-LIKE TOXIN-PRODUCING E. COLI (STEC) Not detected Not detected STX1/STX2 (test hakv=3276687) E. COLI O157 (PCR) (test lmcl=4959184) Not detected SHIGELLA/ENTEROINVASIVE E. COLI (EIEC) BY PCR Not detected Not detected (test etnl=5845793) CRYPTOSPORIDIUM (PCR) (test blgg=1433706) Not detected Not detected CYCLOSPORA CAYETANENSIS (PCR) (test Not detected Not detected lqal=3326995) ENTAMOEBA HISTOLYTICA (PCR) (test lkki=9371874) Not detected Not detected GIARDIA LAMBLIA (PCR) (test rhol=2728471) Not detected Not detected ADENOVIRUS F 40/41 (PCR) (test bjav=1708328) Not detected Not detected ASTROVIRUS (PCR) (test upav=2748306) Not detected Not detected NOROVIRUS GI/GII (PCR) (test lnkd=5779218) Not detected Not detected ROTAVIRUS A (PCR) (test rmmf=7499059) Not detected Not detected SAPOVIRUS (I, II, IV, V) BY PCR (test Not detected Not detected oswy=2052169) VIBRIO (PARAHAEMOLYTICUS, VULNIFICUS) (test Not detected Not detected naoo=3423776) Other viruses, parasites and bacteria not targeted by this PCR panel cannot be excluded; therefore clinical correlation and follow up of serology, culture results, and other molecular studies is required. The results are not intended to be used as the sole means for clinical diagnosis or patient management decisions. This sample was tested at the [facility] using the howsimple Gastrointestinal Panel. It is FDA cleared and has been verified and approved by the [facility] for clinical use. This laboratory is CLIA-certified and College ofAmerican Pathologists (CAP)-accredited to perform high complexity testing.BASIC METABOLIC [id number] 05:42:00 Test Item Value Reference Range Comments SODIUM (BEAKER) (test 138 meq/L 136-145 kqbl=165) POTASSIUM (BEAKER) (test 4.3 meq/L 3.5-5.1 cjjs=472) CHLORIDE (BEAKER) (test 110 meq/L 98-107 tcia=867) CO2 (BEAKER) (test 23 meq/L 22-29 idxg=220) BLOOD UREA NITROGEN 8 mg/dL 7-21 (BEAKER) (test sfug=988) CREATININE (BEAKER) (test 0.66 mg/dL 0.57-1.25 ywoz=830) GLUCOSE RANDOM (BEAKER) 107 mg/dL 70-105 (test wssg=892) CALCIUM (BEAKER) (test 9.0 mg/dL 8.4-10.2 ahuy=265) EGFR (BEAKER) (test 95 mL/min/1.73 sq m ESTIMATED GFR IS NOT umum=4630) ACCURATE CREATININE CLEARANCE IN PREDICTING GLOMERULAR FILTRATION RATE. ESTIMATED GFR IS NOT APPLICABLE FOR DIALYSIS PATIENTS. CBC (HEMOGRAM ONLY)2018-09-05 05:23:00 Test Item Value Reference Range Comments WHITE BLOOD CELL COUNT (BEAKER) (test gaph=650) 7.3 K/ L 3.5-10.5 RED BLOOD CELL COUNT (BEAKER) (test ypaj=934) 3.92 M/ L 3.93-5.22 HEMOGLOBIN (BEAKER) (test nkaq=207) 10.2 GM/DL 11.2-15.7 HEMATOCRIT (BEAKER) (test dnmo=867) 33.0 % 34.1-44.9 MEAN CORPUSCULAR VOLUME (BEAKER) (test kxaz=340) 84.2 fL 79.4-94.8 MEAN CORPUSCULAR HEMOGLOBIN (BEAKER) (test 26.0 pg 25.6-32.2 evcz=323) MEAN CORPUSCULAR HEMOGLOBIN CONC (BEAKER) (test 30.9 GM/DL 32.2-35.5 ogvw=436) RED CELL DISTRIBUTION WIDTH (BEAKER) (test 18.8 % 11.7-14.4 tnwt=227) PLATELET COUNT (BEAKER) (test pxsm=528) 380 K/CU MM 150-450 MEAN PLATELET VOLUME (BEAKER) (test ygfa=849) 10.3 fL 9.4-12.3 NUCLEATED RED BLOOD CELLS (BEAKER) (test 0 /100 WBC 0-0 hwna=639) C-REACTIVE [id number] 18:59:00 Test Item Value Reference Range Comments C-REACTIVE PROTEIN (BEAKER) (test ilzq=658) 0.38 mg/dL 0.00-0.50 [id number] 05:48:00 Test Item Value Reference Range Comments FERRITIN (BEAKER) (test wxvh=921) 13 ng/mL 5-275 BASIC METABOLIC [id number] 05:27:00 Test Item Value Reference Range Comments SODIUM (BEAKER) (test 139 meq/L 136-145 ghgf=730) POTASSIUM (BEAKER) (test 4.0 meq/L 3.5-5.1 scgv=666) CHLORIDE (BEAKER) (test 112 meq/L 98-107 iqlh=428) CO2 (BEAKER) (test 23 meq/L 22-29 ccij=998) BLOOD UREA NITROGEN 3 mg/dL 7-21 (BEAKER) (test qqsa=619) CREATININE (BEAKER) (test 0.62 mg/dL 0.57-1.25 raxs=495) GLUCOSE RANDOM (BEAKER) 91 mg/dL 70-105 (test xnsq=444) CALCIUM (BEAKER) (test 8.4 mg/dL 8.4-10.2 mhrz=378) EGFR (BEAKER) (test 102 mL/min/1.73 sq m ESTIMATED GFR IS NOT rgjo=4733) ACCURATE CREATININE CLEARANCE IN PREDICTING GLOMERULAR FILTRATION RATE. ESTIMATED GFR IS NOT APPLICABLE FOR DIALYSIS PATIENTS. IRON, TIBC, % SAT. (WITHOUT FERRITIN)2018-09-04 05:26:00 Test Item Value Reference Range Comments IRON (BEAKER) (test cyyk=604) 15.0 ug/dL 40.0-160.0 TOTAL IRON BINDING CAPACITY (BEAKER) (test 274 ug/dL 250-450 wpzj=834) IRON % SATURATION (2) (BEAKER) (test biqp=9577) 5 % 20-55 CBC (HEMOGRAM ONLY)2018-09-04 05:05:00 Test Item Value Reference Range Comments WHITE BLOOD CELL COUNT (BEAKER) (test mfhs=613) 5.9 K/ L 3.5-10.5 RED BLOOD CELL COUNT (BEAKER) (test wpfj=479) 3.67 M/ L 3.93-5.22 HEMOGLOBIN (BEAKER) (test rpgj=322) 9.8 GM/DL 11.2-15.7 HEMATOCRIT (BEAKER) (test atue=505) 30.7 % 34.1-44.9 MEAN CORPUSCULAR VOLUME (BEAKER) (test plri=029) 83.7 fL 79.4-94.8 MEAN CORPUSCULAR HEMOGLOBIN (BEAKER) (test 26.7 pg 25.6-32.2 voag=551) MEAN CORPUSCULAR HEMOGLOBIN CONC (BEAKER) (test 31.9 GM/DL 32.2-35.5 tfmy=748) RED CELL DISTRIBUTION WIDTH (BEAKER) (test 18.9 % 11.7-14.4 akqt=761) PLATELET COUNT (BEAKER) (test lnnr=020) 361 K/CU MM 150-450 MEAN PLATELET VOLUME (BEAKER) (test jork=976) 10.3 fL 9.4-12.3 NUCLEATED RED BLOOD CELLS (BEAKER) (test 0 /100 WBC 0-0 gmvp=839) RETICULOCYTE [id number] 05:05:00 Test Item Value Reference Range Comments RETICULOCYTE COUNT PCT (BEAKER) (test nmak=841) 1.1 % 0.5-1.7 SCREEN, [id number] 15:17:00 Test Item Value Reference Range Comments TEST URINE (BEAKER) (test hoqc=739) Negative BASIC METABOLIC [id number] 04:53:00 Test Item Value Reference Range Comments SODIUM (BEAKER) (test 136 meq/L 136-145 fhkn=587) POTASSIUM (BEAKER) (test 3.8 meq/L 3.5-5.1 fofy=500) CHLORIDE (BEAKER) (test 109 meq/L 98-107 ronv=206) CO2 (BEAKER) (test 24 meq/L 22-29 uwsw=785) BLOOD UREA NITROGEN 5 mg/dL 7-21 (BEAKER) (test knts=392) CREATININE (BEAKER) (test 0.60 mg/dL 0.57-1.25 akvo=784) GLUCOSE RANDOM (BEAKER) 88 mg/dL 70-105 (test hsba=168) CALCIUM (BEAKER) (test 8.3 mg/dL 8.4-10.2 ldip=953) EGFR (BEAKER) (test 106 mL/min/1.73 sq m ESTIMATED GFR IS NOT aozd=2043) ACCURATE CREATININE CLEARANCE IN PREDICTING GLOMERULAR FILTRATION RATE. ESTIMATED GFR IS NOT APPLICABLE FOR DIALYSIS PATIENTS. CBC (HEMOGRAM ONLY)2018-09-03 04:33:00 Test Item Value Reference Range Comments WHITE BLOOD CELL COUNT (BEAKER) (test ypmc=804) 5.8 K/ L 3.5-10.5 RED BLOOD CELL COUNT (BEAKER) (test cyop=851) 3.53 M/ L 3.93-5.22 HEMOGLOBIN (BEAKER) (test xivr=514) 9.2 GM/DL 11.2-15.7 HEMATOCRIT (BEAKER) (test tkke=837) 29.7 % 34.1-44.9 MEAN CORPUSCULAR VOLUME (BEAKER) (test fbtp=282) 84.1 fL 79.4-94.8 MEAN CORPUSCULAR HEMOGLOBIN (BEAKER) (test 26.1 pg 25.6-32.2 gjeb=434) MEAN CORPUSCULAR HEMOGLOBIN CONC (BEAKER) (test 31.0 GM/DL 32.2-35.5 aawo=270) RED CELL DISTRIBUTION WIDTH (BEAKER) (test 18.8 % 11.7-14.4 qsha=862) PLATELET COUNT (BEAKER) (test ldip=130) 337 K/CU MM 150-450 MEAN PLATELET VOLUME (BEAKER) (test noin=786) 9.7 fL 9.4-12.3 NUCLEATED RED BLOOD CELLS (BEAKER) (test 0 /100 WBC 0-0 eyop=913)
== END 2018-11-29 04:16 | disposition home or self-care (01) ==
LOC: ER 01:55
DX: R11.0 Nausea (principal)
CPT/HCPCS: 99281

== ENCOUNTER 2018-12-05 01:58 | Emergency (ER) | payer SELFPAY ==
--- OUTSIDE RECORDS SUMMARY | 2018-12-05 01:59 | XMS REPORT | Clinical Summary ---
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
--- OUTSIDE RECORDS SUMMARY | 2018-12-05 02:00 | XMS REPORT | Clinical Summary ---
:1970 Author Organization [facility] Address [address] [place] [address] Care Team Providers Name Role Phone Pcp, [...] Vasquez ENDOSCOPY,CAPSULE MD Mack 09/03/2018 Travel 09/02/2018 [facility] General Internal Shaila Medina Colitis; - Encounter Medicine MD Jo Iron deficiency anemia, unspecified iron deficiency anemia type; 09/06/2018 Patel Valenzuela Bipolar 1 disorder (HCC); MD Mike Enteritis Lesli Arzate MD Vernon, Kimberly Ann, MD 09/02/2018 Travel after 12/04/2017 Social History Tobacco Use Types Packs/Day Years [...] procedure are in the results section. after 12/04/[address] abdomen/pelvis with IV contrast (09/05/2018 6:35 PM CDT) Specimen Narrative Performed At FINAL REPORT [facility] TECHNIQUE: CT of the abdomen and pelvis [...] MD Report Verified Date/Time:09/05/2018 19:42:13 Reading Location: [facility] C0[facility] Consult Reading Room Procedure Note [...] Verified Date/Time: 09/05/2018 19:42:13 Reading Location: [address] Consult Reading Room Performing Organization Address City/State/Zipcode Phone Number Resonate XR abdomen / KUB 1 view (09/05/2018 1:08 PM CDT) Specimen Narrative Performed At [employer] RIS REPORT STATUS:A Addendum: The video capsule is seen projected over the right iliac wing. It could be in the distal ileum versus large bowel. If in exact location is needed. CT scan will be necessary. End of addendum. Signed: Reza Lira MD Report Verified Date/Time:09/05/2018 15:30:35 Reading Location: [facility] Radiology Reading Room Addendum Ends FINAL REPORT TECHNIQUE: Supine radiograph of the abdomen dated 09/05/2018 HISTORY: Evaluate for retained video capsule. COMPARISON: None IMPRESSION: No air-filled, dilated loops of bowel to suggest obstruction. No free intraperitoneal air. No abnormal soft tissue mass. No radiodense foreign body visualized. Bones are unremarkable. Signed: Reza Lira MD Report Verified Date/Time:09/05/2018 14:53:33 Reading Location: [facility] Radiology Reading Room Procedure Note Interface, External [...] Report Verified Date/Time: 09/05/2018 15:30:35 Reading Location: [facility] Radiology Reading Room Addendum Ends FINAL REPORT TECHNIQUE: Supine radiograph of the abdomen dated 09/05/2018 HISTORY: Evaluate for retained video capsule. COMPARISON: None IMPRESSION: No air-filled, dilated loops of bowel to suggest obstruction. No free intraperitoneal air. No abnormal soft tissue mass. No radiodense foreign body visualized. Bones are unremarkable. Signed: Reza Lira MD Report Verified Date/Time: 09/05/2018 14:53:33 Reading Location: [facility] Radiology Reading Room Performing Organization Address City/State/Zipcode Phone Number GE RIS CBC (Hemogram only) (09/05/2018 5:03 AM CDT)Only the most recent of3 resultswithin the time period is included. WBC 7.3 3.5 - 10.5 K/L [facility] RBC 3.92 (L) 3.93 - 5.22 M/L [facility] Hemoglobin 10.2 (L) 11.2 - 15.7 GM/DL [facility] Hematocrit 33.0 (L) 34.1 - 44.9 % [facility] MCV 84.2 79.4 - 94.8 fL [facility] MCH 26.0 25.6 - 32.2 pg [facility] MCHC 30.9 (L) 32.2 - 35.5 GM/DL [facility] RDW 18.8 (H) 11.7 - 14.4 % [facility] Platelets 380 150 - 450 K/CU MM [facility] MPV 10.3 9.4 - 12.3 fL [facility] nRBC 0 0 - 0 /100 WBC [facility] Specimen Blood Performing Organization Address City/State/Zipcode Phone Number [facility] [address] [place] [address] CENTER Basic metabolic panel (09/05/2018 5:03 AM CDT)Only the most recent of3 resultswithin the time period is included. Sodium 138 136 - 145 meq/L [facility] Potassium 4.3 3.5 - 5.1 meq/L [facility] Chloride 110 (H) 98 - 107 meq/L [facility] CO2 23 22 - 29 meq/L [facility] BUN 8 7 - 21 mg/dL [facility] Creatinine 0.66 0.57 - 1.25 mg/dL [facility] Glucose 107 (H) 70 - 105 mg/dL [facility] Calcium 9.0 8.4 - 10.2 mg/dL [facility] EGFR 95Comment: ESTIMATED GFR IS mL/min/1.73 sq m [facility] NOT ACCURATE [facility] CLEARANCE IN PREDICTING GLOMERULAR FILTRATION RATE. ESTIMATED GFR IS NOT APPLICABLE FOR DIALYSIS PATIENTS. Specimen Blood Performing Organization Address City/State/Zipcode Phone Number [facility] [address], [place] [id number] [place] Celiac Disease Panel (09/04/2018 5:46 PM CDT) Scan Result [facility] Celiac Disease Profile Refer to Celiac [facility] results. Specimen Blood Narrative Performed At Performing Organization Address City/State/Zipcode Phone Number [place] [address] [facility]ORPOR[facility] [id number] [facility] C-Reactive Protein (09/04/2018 5:46 PM CDT) CRP 0.38 0.00 - 0.50 mg/dL [facility] Specimen Blood Performing Organization Address City/State/Zipcode Phone Number [facility] [address] [place] [address] [phone] CENTER GI Pathogen Profile by PCR -ID Only (09/04/2018 5:37 PM CDT) CAMPYLOBACTER (PCR) Not detected Not detected [facility] PLESIOMONAS SHIGELLOIDES (PCR) Not detected Not detected [facility] [place] SALMONELLA (PCR) Not detected Not detected [facility] [place] YERSINIA ENTEROCOLITICA (PCR) Not detected Not detected [facility] VIBRIO CHOLERAE (PCR) Not detected Not detected [facility] ENTEROAGGREGATIVE E. COLI (EAEC) Not detected Not detected [facility] BY PCR MEDICAL CENTER ENTEROPATHOGENIC E. COLI (EPEC) BY Not detected Not detected [facility] PCR MEDICAL CENTER ENTEROTOXIGENIC E. COLI (ETEC) Not detected Not detected [facility] LT/ST BY PCR [facility] SHIGA-LIKE TOXIN-PRODUCING E. COLI Not detected Not detected [facility] (STEC) STX1/STX2 [facility] E. COLI O157 (PCR) Not detected [facility] SHIGELLA/ENTEROINVASIVE E. COLI Not detected Not detected [facility] (EIEC) BY PCR [facility] CRYPTOSPORIDIUM (PCR) Not detected Not detected [facility] CYCLOSPORA CAYETANENSIS (PCR) Not detected Not detected [facility] ENTAMOEBA HISTOLYTICA (PCR) Not detected Not detected [facility] GIARDIA LAMBLIA (PCR) Not detected Not detected [facility] ADENOVIRUS F 40/41 (PCR) Not detected Not detected [facility] ASTROVIRUS (PCR) Not detected Not detected [facility] NOROVIRUS GI/GII (PCR) Not detected Not detected [facility] ROTAVIRUS A (PCR) Not detected Not detected [facility] SAPOVIRUS (I, II, IV, V) BY PCR Not detected Not detected [facility] VIBRIO (PARAHAEMOLYTICUS, Not detected Not detected [facility] VULNIFICUS) [facility] Specimen Stool Narrative Performed At Other viruses, parasites and bacteria not [facility] targeted by this PCR panel cannot be excluded; therefore clinical correlation and follow up of serology, culture results, and other molecular studies is required. The results are not intended to be used as the sole means for clinical diagnosis or patient management decisions. This sample was tested at the [facility] using the [employer] Gastrointestinal Panel. It is FDA cleared and has been verified and approved by the [facility] for clinical use. This laboratory is CLIA-certified and [employer] ([employer])-accredited to perform high complexity testing. Performing Organization Address City/State/Zipcode Phone Number [facility] [address] [place] [address] [phone] CENTER H. pylori antigen, stool (09/04/2018 5:37 [...] Lab [facility] *[facility], [address] [place] [phone] Juan Mak MD, PhD Performing Organization Address City/State/Zipcode Phone Number [facility], [place] [address] INCORPORATED [address] [facility] Iron, TIBC, % sat. (without ferritin) (09/04/2018 3:59 AM CDT) Iron 15.0 (L) 40.0 - 160.0 ug/dL [facility] TIBC 274 250 - 450 ug/dL [facility] Iron % Saturation 5 (L) 20 - 55 % [facility] Specimen Blood Performing Organization Address [facility] Phone Number [address] [address] CENTER Reticulocyte count (09/04/2018 3:59 AM CDT) % Retic 1.1 0.5 - 1.7 % [facility] Specimen Blood Performing Organization Address [facility] Phone Number [address] [address] CENTER Ferritin (09/04/2018 3:59 AM CDT) Ferritin 13 5 - 275 ng/mL [facility] Specimen Blood Performing Organization Address [facility] Phone Number [address] [address] [place] Screen, urine (09/03/2018 2:16 PM CDT) Preg Test, Ur Negative [facility] Specimen Urine Performing Organization Address City/State/Zipcode Phone Number [facility] [address] [place] [address] [phone] CENTER after 12/04/2017 Advance Directives For more information, please contact:[address] [phone] Code Status Date Activated Date Inactivated Comments Full Code 09/02/2018 9:07 PM 09/06/2018 2:52 PM This code status was determined by: Patient
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
--- OUTSIDE RECORDS SUMMARY | 2018-12-05 02:02 | XMS REPORT ---
:1970 [facility] Address [address] [place] [address] Care Team Providers Name Role Phone UNKNOWN, [...] Facility Department ID 2017-07-02 2017-07-02 Emergency E [facility] MED [id number] 08:16:00 08:16:00 Results Test Description Test Time Test Comments Text Results Atomic Results Result Comments CELIAC DISEASE PANEL 2018-09-08 08:06:00 Test Item Value Reference Range Comments SCAN RESULT (test [id number]=[id number]) CELIAC DISEASE PROFILE AUTOVERIFICATION Refer to Celiac Disease Panel (QUEST) (test [id number]=[id number]) results. CT, [id number] 19:42:00Only need IV contrast, not POFINAL REPORT [...] Verified Date/Time: 09/05/2018 19:42: 13 Reading Location: [facility] C013 Consult Reading Room RAD, ABDOMEN/KUB, 1 VIEW [id number] 15:30:00Reason for exam:->look for retained video capsuleAddendum BeginsREPORT STATUS:A Addendum:The video capsule is seen projected over the right iliac wing. It could be in the distal ileum versus large bowel. If in exact location isneeded. CT scan will be necessary. End of addendum. Signed: Gisele Liar MDReport Verified Date/ Time: 09/05/2018 15:30:35 Reading Location: [facility] Radiology Reading RoomAddendum EndsFINAL REPORT TECHNIQUE: Supine radiograph of the abdomen dated 09/05/2018 HISTORY: Evaluate for retained video capsule. COMPARISON: None IMPRESSION:No air-filled, dilated loops of bowel to suggest obstruction. No free intraperitoneal air. No abnormal soft tissue mass. No radiodense foreign body visualized. Bones are unremarkable. Signed: Gisele Lira MDReport Verified Date/Time: 09/05/2018 14:53:33 Reading Location: [facility] Radiology Reading Room GI PATHOGEN PROFILE BY [id number] 10:43:00 Test Item Value Reference Range Comments CAMPYLOBACTER (PCR) (test zbzm=[id number]) Not detected Not detected PLESIOMONAS SHIGELLOIDES (PCR) (test Not detected Not detected stda=4626104) SALMONELLA (PCR) (test rpmu=4113288) Not detected Not detected YERSINIA ENTEROCOLITICA (PCR) (test Not detected Not detected fzxl=9848216) VIBRIO CHOLERAE (PCR) (test gerr=1486621) Not detected Not detected ENTEROAGGREGATIVE E. COLI (EAEC) BY PCR (test Not detected Not detected qtvu=0339345) ENTEROPATHOGENIC E. COLI (EPEC) BY PCR (test Not detected Not detected fpqs=4648998) ENTEROTOXIGENIC E. COLI (ETEC) LT/ST BY PCR Not detected Not detected (test gpfz=8620550) SHIGA-LIKE TOXIN-PRODUCING E. COLI (STEC) Not detected Not detected STX1/STX2 (test lrcf=5057561) E. COLI O157 (PCR) (test mgsi=5211276) Not detected SHIGELLA/ENTEROINVASIVE E. COLI (EIEC) BY PCR Not detected Not detected (test mqer=2728481) CRYPTOSPORIDIUM (PCR) (test yjin=0708872) Not detected Not detected CYCLOSPORA CAYETANENSIS (PCR) (test Not detected Not detected pimi=6950637) ENTAMOEBA HISTOLYTICA (PCR) (test uurj=5994643) Not detected Not detected GIARDIA LAMBLIA (PCR) (test iwop=7335885) Not detected Not detected ADENOVIRUS F 40/41 (PCR) (test zctl=0365036) Not detected Not detected ASTROVIRUS (PCR) (test vnfw=2545562) Not detected Not detected NOROVIRUS GI/GII (PCR) (test cwwz=5569074) Not detected Not detected ROTAVIRUS A (PCR) (test oynk=5722440) Not detected Not detected SAPOVIRUS (I, II, IV, V) BY PCR (test Not detected Not detected qwnf=2756061) VIBRIO (PARAHAEMOLYTICUS, VULNIFICUS) (test Not detected Not detected zvea=7227322) Other viruses, parasites and bacteria not targeted by this PCR panel cannot be excluded; therefore clinical correlation and follow up of serology, culture results, and other molecular studies is required. The results are not intended to be used as the sole means for clinical diagnosis or patient management decisions. This sample was tested at the [facility] Molecular Diagnostics Laboratory using the [employer] ([employer] / [employer])Array Gastrointestinal Panel. It is FDA cleared and has been verified and approved by the [facility] Molecular [facility]ostics Laboratory for clinical use. This laboratory is CLIA-certified and College ofAmerican Pathologists (CAP)-accredited to perform high complexity testing.BASIC METABOLIC [id number] 05:42:00 Test Item Value Reference Range Comments SODIUM (BEAKER) (test 138 meq/L 136-145 wlzn=357) POTASSIUM (BEAKER) (test 4.3 meq/L 3.5-5.1 ncek=799) CHLORIDE (BEAKER) (test 110 meq/L 98-107 vivm=167) CO2 (BEAKER) (test 23 meq/L 22-29 ingz=595) BLOOD UREA NITROGEN 8 mg/dL 7-21 (BEAKER) (test ixjc=671) CREATININE (BEAKER) (test 0.66 mg/dL 0.57-1.25 osjg=280) GLUCOSE RANDOM (BEAKER) 107 mg/dL 70-105 (test ztah=278) CALCIUM (BEAKER) (test 9.0 mg/dL 8.4-10.2 lnym=740) EGFR (BEAKER) (test 95 mL/min/1.73 sq m ESTIMATED GFR IS NOT akbs=0861) ACCURATE CREATININE CLEARANCE IN PREDICTING GLOMERULAR FILTRATION RATE. ESTIMATED GFR IS NOT APPLICABLE FOR DIALYSIS PATIENTS. CBC (HEMOGRAM ONLY)2018-09-05 05:23:00 Test Item Value Reference Range Comments WHITE BLOOD CELL COUNT (BEAKER) (test ldrh=235) 7.3 K/ L 3.5-10.5 RED BLOOD CELL COUNT (BEAKER) (test chnk=375) 3.92 M/ L 3.93-5.22 HEMOGLOBIN (BEAKER) (test isma=030) 10.2 GM/DL 11.2-15.7 HEMATOCRIT (BEAKER) (test havz=065) 33.0 % 34.1-44.9 MEAN CORPUSCULAR VOLUME (BEAKER) (test jodx=625) 84.2 fL 79.4-94.8 MEAN CORPUSCULAR HEMOGLOBIN (BEAKER) (test 26.0 pg 25.6-32.2 llnp=797) MEAN CORPUSCULAR HEMOGLOBIN CONC (BEAKER) (test 30.9 GM/DL 32.2-35.5 ytwu=081) RED CELL DISTRIBUTION WIDTH (BEAKER) (test 18.8 % 11.7-14.4 wkdu=619) PLATELET COUNT (BEAKER) (test bsgq=244) 380 K/CU MM 150-450 MEAN PLATELET VOLUME (BEAKER) (test vfzu=947) 10.3 fL 9.4-12.3 NUCLEATED RED BLOOD CELLS (BEAKER) (test 0 /100 WBC 0-0 zupg=341) C-REACTIVE [id number] 18:59:00 Test Item Value Reference Range Comments C-REACTIVE PROTEIN (BEAKER) (test fieq=204) 0.38 mg/dL 0.00-0.50 [id number] 05:48:00 Test Item Value Reference Range Comments FERRITIN (BEAKER) (test xcvk=203) 13 ng/mL 5-275 BASIC METABOLIC [id number] 05:27:00 Test Item Value Reference Range Comments SODIUM (BEAKER) (test 139 meq/L 136-145 vxoi=813) POTASSIUM (BEAKER) (test 4.0 meq/L 3.5-5.1 ffhs=735) CHLORIDE (BEAKER) (test 112 meq/L 98-107 xjog=088) CO2 (BEAKER) (test 23 meq/L 22-29 sppu=501) BLOOD UREA NITROGEN 3 mg/dL 7-21 (BEAKER) (test xihr=407) CREATININE (BEAKER) (test 0.62 mg/dL 0.57-1.25 oclo=719) GLUCOSE RANDOM (BEAKER) 91 mg/dL 70-105 (test juyl=814) CALCIUM (BEAKER) (test 8.4 mg/dL 8.4-10.2 rykj=961) EGFR (BEAKER) (test 102 mL/min/1.73 sq m ESTIMATED GFR IS NOT jfkr=2087) ACCURATE CREATININE CLEARANCE IN PREDICTING GLOMERULAR FILTRATION RATE. ESTIMATED GFR IS NOT APPLICABLE FOR DIALYSIS PATIENTS. IRON, TIBC, % SAT. (WITHOUT FERRITIN)2018-09-04 05:26:00 Test Item Value Reference Range Comments IRON (BEAKER) (test lkus=163) 15.0 ug/dL 40.0-160.0 TOTAL IRON BINDING CAPACITY (BEAKER) (test 274 ug/dL 250-450 vbth=407) IRON % SATURATION (2) (BEAKER) (test nnaz=0793) 5 % 20-55 CBC (HEMOGRAM ONLY)2018-09-04 05:05:00 Test Item Value Reference Range Comments WHITE BLOOD CELL COUNT (BEAKER) (test mbtd=000) 5.9 K/ L 3.5-10.5 RED BLOOD CELL COUNT (BEAKER) (test sqtt=360) 3.67 M/ L 3.93-5.22 HEMOGLOBIN (BEAKER) (test dcnr=455) 9.8 GM/DL 11.2-15.7 HEMATOCRIT (BEAKER) (test uaot=460) 30.7 % 34.1-44.9 MEAN CORPUSCULAR VOLUME (BEAKER) (test ctxw=750) 83.7 fL 79.4-94.8 MEAN CORPUSCULAR HEMOGLOBIN (BEAKER) (test 26.7 pg 25.6-32.2 vkbw=020) MEAN CORPUSCULAR HEMOGLOBIN CONC (BEAKER) (test 31.9 GM/DL 32.2-35.5 ayau=670) RED CELL DISTRIBUTION WIDTH (BEAKER) (test 18.9 % 11.7-14.4 ppon=297) PLATELET COUNT (BEAKER) (test emek=650) 361 K/CU MM 150-450 MEAN PLATELET VOLUME (BEAKER) (test fstp=735) 10.3 fL 9.4-12.3 NUCLEATED RED BLOOD CELLS (BEAKER) (test 0 /100 WBC 0-0 gfmu=283) RETICULOCYTE [id number] 05:05:00 Test Item Value Reference Range Comments RETICULOCYTE COUNT PCT (BEAKER) (test xuwu=871) 1.1 % 0.5-1.7 SCREEN, [id number] 15:17:00 Test Item Value Reference Range Comments TEST URINE (BEAKER) (test lzsq=798) Negative BASIC METABOLIC [id number] 04:53:00 Test Item Value Reference Range Comments SODIUM (BEAKER) (test 136 meq/L 136-145 ihhu=788) POTASSIUM (BEAKER) (test 3.8 meq/L 3.5-5.1 dbwx=012) CHLORIDE (BEAKER) (test 109 meq/L 98-107 tnib=698) CO2 (BEAKER) (test 24 meq/L 22-29 sowm=156) BLOOD UREA NITROGEN 5 mg/dL 7-21 (BEAKER) (test xaug=432) CREATININE (BEAKER) (test 0.60 mg/dL 0.57-1.25 uxxa=895) GLUCOSE RANDOM (BEAKER) 88 mg/dL 70-105 (test zfjs=401) CALCIUM (BEAKER) (test 8.3 mg/dL 8.4-10.2 mscu=349) EGFR (BEAKER) (test 106 mL/min/1.73 sq m ESTIMATED GFR IS NOT wkce=1172) ACCURATE CREATININE CLEARANCE IN PREDICTING GLOMERULAR FILTRATION RATE. ESTIMATED GFR IS NOT APPLICABLE FOR DIALYSIS PATIENTS. CBC (HEMOGRAM ONLY)2018-09-03 04:33:00 Test Item Value Reference Range Comments WHITE BLOOD CELL COUNT (BEAKER) (test nlrx=828) 5.8 K/ L 3.5-10.5 RED BLOOD CELL COUNT (BEAKER) (test kotv=772) 3.53 M/ L 3.93-5.22 HEMOGLOBIN (BEAKER) (test hcmm=063) 9.2 GM/DL 11.2-15.7 HEMATOCRIT (BEAKER) (test veko=776) 29.7 % 34.1-44.9 MEAN CORPUSCULAR VOLUME (BEAKER) (test ffew=950) 84.1 fL 79.4-94.8 MEAN CORPUSCULAR HEMOGLOBIN (BEAKER) (test 26.1 pg 25.6-32.2 dkjl=693) MEAN CORPUSCULAR HEMOGLOBIN CONC (BEAKER) (test 31.0 GM/DL 32.2-35.5 jakt=310) RED CELL DISTRIBUTION WIDTH (BEAKER) (test 18.8 % 11.7-14.4 esrq=757) PLATELET COUNT (BEAKER) (test dozb=782) 337 K/CU MM 150-450 MEAN PLATELET VOLUME (BEAKER) (test uxus=656) 9.7 fL 9.4-12.3 NUCLEATED RED BLOOD CELLS (BEAKER) (test 0 /100 WBC 0-0 fpdk=101)
[2018-12-05] MEDS ORDERED: NA CHLORIDE 0.9% 1,000 ML ONE (02:40)
[2018-12-05] MEDS ORDERED: MECLIZINE HCL 12.5 MG TAB ONE (02:40)
--- NOTE | 2018-12-05 03:26 | ER ---
Nurse's Notes [facility] Name: Dayami Espinosa Age: 48 yrs Sex: Female : 1970 Arrival Date: 12/05/2018 Time: 01:59 Bed 8 Private MD: Diagnosis: Dizziness and giddiness Presentation: 12/05 02:01 Presenting complaint: EMS states: Pt reports she was feeling dizzy and light headed, ea reports only drinking one beer today. Transition of care: patient was not received from another setting of care. Onset of symptoms was December 05, 2018. Risk Assessment: Do you want to hurt yourself or someone else? Patient reports no desire to harm self or others. Initial Sepsis Screen: Does the patient meet any 2 criteria? No. Patient's initial sepsis screen is negative. Does the patient have a suspected source of infection? No. Patient's initial sepsis screen is negative. Care prior to arrival: None. 02:01 Method Of Arrival: EMS: [facility] ea 02:01 Acuity: JAZMIN 4 ea Triage Assessment: 02:01 General: Appears uncomfortable, Behavior is calm, cooperative, appropriate for age. ea Pain: Complains of pain in headache. Neuro: Oriented to person, place, time. Neuro: Reports dizziness. Cardiovascular:. Cardiovascular: Patient's skin is warm and dry. Respiratory: Airway is patent Respiratory effort is even, unlabored, Respiratory pattern is regular, symmetrical. Derm: Skin is pink, warm \T\ dry. Historical: - Allergies: 02:08 Amoxicillin; ea 02:08 Pseudoephedrine; ea - Home Meds: 02:08 Depakote 250 mg Oral TbEC 1 tab in the morning for Bipolar Disorder in Remission ea [Active]; - PMHx: 02:08 Ovarian cyst; gastritis; Bipolar disorder; Anemia; ea - Immunization history:: Adult Immunizations up to date. - Social history:: Smoking status: Patient/guardian denies using tobacco. - Ebola Screening: : No symptoms or risks identified at this time. Screenin:07 Abuse screen: Denies threats or abuse. Nutritional screening: No deficits noted. ea Tuberculosis screening: No symptoms or risk factors identified. Fall Risk None identified. Assessment: 02:01 Reassessment: see triage assessment. ea 03:00 Reassessment: Patient appears in no apparent distress at this time. Complaint of lp1 nausea, dizziness; aware of pending CT results. 04:00 Reassessment: Patient resting, eyes closed, respirations unlabored. lp1 Vital Signs: 02:07 BP 103 / 72; Pulse 78; Resp 18; Temp 98.5; Pulse Ox 98% on R/A; ea 03:00 BP 104 / 71; Pulse 76; Resp 16; Pulse Ox 96% on R/A; lp1 04:44 BP 113 / 76; Pulse 76; Resp 16; Pulse Ox 98% on R/A; lp1 ED Course: 01:59 Patient arrived in ED. ea 02:06 Triage completed. ea 02:07 Patient has correct armband on for positive identification. Bed in low position. Call ea light in reach. Side rails up X2. 02:07 Patient placed in an exam room, on a stretcher, on pulse oximetry. ea 02:08 Rangel Ibarra PA is PHCP. jr8 02:08 Derrek Martines MD is Attending Physician. jr8 02:18 Jacquelin Matias, BENI is Primary Nurse. ea 03:16 CT Head Brain wo Cont In Process Unspecified. EDMS 03:58 No provider procedures requiring assistance completed. lp1 04:29 IV discontinued, No redness/swelling at site. Pressure dressing applied. lp1 Administered Medications: 03:15 Drug: Meclizine 25 mg Route: PO; lp1 04:29 Follow up: Response: No adverse reaction lp1 03:38 Not Given (Patient Refused): NS 0.9% 1000 ml IV at 1000 ml once lp1 Outcome: 03:24 Discharge ordered by . jr8 04:44 Discharged to home via wheelchair. lp1 04:44 Condition: good 04:44 Discharge instructions given to patient, Instructed on discharge instructions, follow up and referral plans. medication usage, Demonstrated understanding of instructions, follow-up care, medications, Prescriptions given X 1. 05:06 Patient left the ED. lp1 Signatures: Dispatcher [employer] EDMS Patrizia Vincent RN RN lp1 Rangel Ibarra PA PA jrJacquelin Farah RN RN ea
--- NOTE | 2018-12-05 03:27 | EDPHYS ---
Physician Documentation [facility] Name: Dayami Espinosa Age: 48 yrs Sex: Female : 1970 Arrival Date: 12/05/2018 Time: 01:59 Bed 8 Private MD: ED Physician Derrek Martines HPI: 12/05 02:38 This 48 yrs old Female presents to ER via EMS with complaints of Dizziness. jr8 02:38 The patient presents with dizziness. Onset: The symptoms/episode began/occurred jr8 acutely, today. Context: occurred at home, occurred while the patient was at rest. Modifying factors: The symptoms are alleviated by nothing, the symptoms are aggravated by movement of head, standing up, changing position. Associated signs and symptoms: The patient has no apparent associated signs or symptoms. Severity of symptoms: At their worst the symptoms were mild in the emergency department the symptoms are unchanged. Patient's baseline: Neuro: alert and fully oriented, Motor: no deficits, Ambulation: walks without assistance, Speech: normal. It is unknown whether or not the patient has had similar symptoms in the past. The patient has not recently seen a physician. Historical: - Allergies: 02:08 Amoxicillin; ea 02:08 Pseudoephedrine; ea - Home Meds: 02:08 Depakote 250 mg Oral TbEC 1 tab in the morning for Bipolar Disorder in Remission ea [Active]; - PMHx: 02:08 Ovarian cyst; gastritis; Bipolar disorder; Anemia; ea - Immunization history:: Adult Immunizations up to date. - Social history:: Smoking status: Patient/guardian denies using tobacco. - Ebola Screening: : No symptoms or risks identified at this time. ROS: 02:38 Eyes: Negative for injury, pain, redness, and discharge, ENT: Negative for injury, jr8 pain, and discharge, Neck: Negative for injury, pain, and swelling, Cardiovascular: Negative for chest pain, palpitations, and edema, Respiratory: Negative for shortness of breath, cough, wheezing, and pleuritic chest pain, Abdomen/GI: Negative for abdominal pain, nausea, vomiting, diarrhea, and constipation, Back: Negative for injury and pain, MS/Extremity: Negative for injury and deformity, Skin: Negative for injury, rash, and discoloration. 02:38 Neuro: Positive for dizziness. Exam: 02:38 Eyes: Pupils equal round and reactive to light, extra-ocular motions intact. Lids and jr8 lashes normal. Conjunctiva and sclera are non-icteric and not injected. Cornea within normal limits. Periorbital areas with no swelling, redness, or edema. ENT: Nares patent. No nasal discharge, no septal abnormalities noted. Tympanic membranes are normal and external auditory canals are clear. Oropharynx with no redness, swelling, or masses, exudates, or evidence of obstruction, uvula midline. Mucous membranes moist. Neck: Trachea midline, no thyromegaly or masses palpated, and no cervical lymphadenopathy. Supple, full range of motion without nuchal rigidity, or vertebral point tenderness. No Meningismus. Cardiovascular: Regular rate and rhythm with a normal S1 and S2. No gallops, murmurs, or rubs. Normal PMI, no JVD. No pulse deficits. Respiratory: Lungs have equal breath sounds bilaterally, clear to auscultation and percussion. No rales, rhonchi or wheezes noted. No increased work of breathing, no retractions or nasal flaring. Abdomen/GI: Soft, non-tender, with normal bowel sounds. No distension or tympany. No guarding or rebound. No evidence of tenderness throughout. Back: No spinal tenderness. No costovertebral tenderness. Full range of motion. Skin: Warm, dry with normal turgor. Normal color with no rashes, no lesions, and no evidence of cellulitis. MS/ Extremity: Pulses equal, no cyanosis. Neurovascular intact. Full, normal range of motion. Neuro: Awake and alert, GCS 15, oriented to person, place, time, and situation. Cranial nerves II-XII grossly intact. Motor strength 5/5 in all extremities. Sensory grossly intact. Cerebellar exam normal. Normal gait. Vital Signs: 02:07 BP 103 / 72; Pulse 78; Resp 18; Temp 98.5; Pulse Ox 98% on R/A; ea 03:00 BP 104 / 71; Pulse 76; Resp 16; Pulse Ox 96% on R/A; lp1 04:44 BP 113 / 76; Pulse 76; Resp 16; Pulse Ox 98% on R/A; lp1 MDM: 02:08 Patient medically screened. jr8 03:12 Data reviewed: vital signs, nurses notes, lab test result(s), radiologic studies, CT jr8 scan. Data interpreted: Pulse oximetry: on room air is 98 %. Interpretation: normal. Counseling: I had a detailed discussion with the patient and/or guardian regarding: the historical points, exam findings, and any diagnostic results supporting the discharge/admit diagnosis, lab results, radiology results, the need for outpatient follow up, a family practitioner, to return to the emergency department if symptoms worsen or persist or if there are any questions or concerns that arise at home. 12/05 02:23 Order name: CBC with Diff; Complete Time: 04:38 jr8 12/05 02:23 Order name: Basic Metabolic Panel; Complete Time: 04:38 jr8 12/05 02:23 Order name: CT Head Brain wo Cont jr8 12/05 02:23 Order name: UDS; Complete Time: 04:38 jr8 12/05 03:30 Order name: Urine Dipstick--Ancillary (enter results); Complete Time: 04:38 ag4 12/05 02:23 Order name: Urine Dipstick-Ancillary (obtain specimen); Complete Time: 03:26 jr8 12/05 02:24 Order name: IV; Complete Time: 03:38 jr8 Administered Medications: 03:15 Drug: Meclizine 25 mg Route: PO; lp1 04:29 Follow up: Response: No adverse reaction lp1 03:38 Not Given (Patient Refused): NS 0.9% 1000 ml IV at 1000 ml once lp1 Disposition: 06:35 Co-signature as Attending Physician, Derrek Martines MD. pksu Disposition: 12/05/18 03:24 Discharged to Home. Impression: Dizziness and giddiness. - Condition is Stable. - Discharge Instructions: Benign Positional Vertigo, Dizziness. - Prescriptions for Meclizine 25 mg Oral Tablet - take 1 tablet by ORAL route every 8 hours As needed; 30 tablet. - Medication Reconciliation Form, Thank You Letter, Antibiotic Education, Prescription Opioid Use form. - Follow up: Private Physician; When: 2 - 3 days; Reason: Recheck today's complaints, Continuance of care, Re-evaluation by your physician. - Problem is new. - Symptoms have improved. Signatures: Dispatcher [employer] EDMS Derrek Martines MD MD pkl Patrizia Vincent RN RN lp1 Rangel Ibarra PA PA jr8 Jacquelin Matias RN BENI medina Corrections: (The following items were deleted from the chart) 05:06 03:24 12/05/2018 03:24 Discharged to Home. Impression: Dizziness and giddiness. lp1 Condition is Stable. Discharge Instructions: Benign Positional Vertigo, Dizziness. Prescriptions for Meclizine 25 mg Oral Tablet - take 1 tablet by ORAL route every 8 hours As needed; 30 tablet. and Forms are Medication Reconciliation Form, Thank You Letter, Antibiotic Education, Prescription Opioid Use. Follow up: Private Physician; When: 2 - 3 days; Reason: Recheck today's complaints, Continuance of care, Re-evaluation by your physician. Problem is new. Symptoms have improved. jr8
[2018-12-05 03:42] LABS: Barbiturates NEGATIVE (NEGATIVE); Benzodiazepines NEGATIVE (NEGATIVE); Cocaine NEGATIVE (NEGATIVE); METHAMPHETAM NEGATIVE (NEGATIVE); Methadone NEGATIVE (NEGATIVE); Opiates NEGATIVE (NEGATIVE); Phencyclidine NEGATIVE (NEGATIVE); THC Cannibis NEGATIVE (NEGATIVE)
[2018-12-05 03:42] LABS: Urine Blood TRACE (NEG); Urine Glucose NEGATIVE (NEG); Urine Protein NEGATIVE (NEG); Urine Specific Gravity 1.015 (1.005-1.030); Urine pH 6.5 (5.0-7.0)
[2018-12-05 03:43] LABS: Absolute Lymphocytes (CBC) 2.8 K/uL (0.7-4.9); Basophils % 0.5 % (0-1.3); Hematocrit 35.5 % (36.0-45.0); Lymphocytes % 33.6 % (15.3-44.8); MPV 8.4 fL (7.6-11.3); RBC Red Blood Cell Count 4.37 M/uL (3.86-4.86)
[2018-12-05 04:13] LABS: Potassium 3.8 mmol/L (3.5-5.1)
--- NOTE | 2018-12-05 10:27 | RAD REPORT ---
EXAM DESCRIPTION: CT - Head Brain Wo Cont - 12/05/2018 6:53 am CLINICAL HISTORY: DIZZINESS COMPARISON: 04/13/2018 TECHNIQUE: Axial CT of the head obtained from the skull apex to the skull base without contrast. FINDINGS: No acute intracranial hemorrhage identified. No mass, mass effect, shift of the midline, a bnormal extra-axial fluid collection or CT evidence of acute ischemic change identified. The ventricu lar system and sulcal spaces are age appropriate. Scattered areas of hypodensity throughout the sup ratentorial white matter are nonspecific and may be related to chronic small vessel ischemic change. 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 The visualized paranasal sinuses and the mastoids are clear. No skull fracture identified. Visualized orbits and globes are unremarkable. Atherosclerotic richard cification of the intracranial internal carotid arteries. DLP: 751.2 mGy-cm IMPRESSION: 1. No acute intracranial abnormality by CT criteria. This exam was performed according to our departmental dose-optimization program, which includes autom ated exposure control, adjustment of the mA and/or kV according to patient size and/or use of iterati ve reconstruction technique. Electronically signed by: Patel Yin 12/05/2018 3:21 AM CDT Due to temporary technical issues with the PACS/Fluency reporting system, reports are being signed by the in house radiologist as a courtesy to ensure prompt reporting. The interpreting radiologist is f ully responsible for the content of the report.
== END 2018-12-05 05:06 | disposition home or self-care (01) ==
LOC: ER 01:58
DX: R42 Dizziness and giddiness (principal); F31.9 Bipolar disorder, unspecified; Z88.1 Allergy status to other antibiotic agents
CPT/HCPCS: 36415; 70450; 80048; 80307; 81003; 85025; 99284; J7030

== ENCOUNTER 2018-12-13 02:59 | Emergency (ER) | payer SELFPAY ==
--- OUTSIDE RECORDS SUMMARY | 2018-12-13 03:02 | XMS REPORT | Clinical Summary ---
:1970 Author Organization [facility] Address [address] [place] [address] Care Team Providers Name Role Phone Pcp, [...] Vasquez ENDOSCOPY,CAPSULE MD Mack 09/03/2018 Travel 09/02/2018 [facility] General Internal Shaila Medina Colitis; - Encounter Medicine MD Jo Iron deficiency anemia, unspecified iron deficiency anemia type; 09/06/2018 Patel Valenzuela Bipolar 1 disorder (HCC); MD Mike Enteritis Lesli Arzate MD Vernon, Kimberly Ann, MD 09/02/2018 Travel after 12/12/2017 Social History Tobacco Use Types Packs/Day Years [...] procedure are in the results section. after 12/12/[address] abdomen/pelvis with IV contrast (09/05/2018 6:35 PM CDT) Specimen Narrative Performed At FINAL REPORT [employer] TECHNIQUE: CT of the abdomen and pelvis [...] Report Verified Date/Time:09/05/2018 19:42:13 Reading Location: [id number] Consult Reading Room Procedure Note Interface, [...] Report Verified Date/Time: 09/05/2018 19:42:13 Reading Location: [address] Consult Reading Room Performing Organization Address City/State/Zipcode Phone Number [facility] XR abdomen / KUB 1 view (09/05/2018 1:08 PM CDT) Specimen Narrative Performed At Addendum Begins [employer] RIS REPORT STATUS:A Addendum: The video capsule is seen projected over the right iliac wing. It could be in the distal ileum versus large bowel. If in exact location is needed. CT scan will be necessary. End of addendum. Signed: Reza Lira MD Report Verified Date/Time:09/05/2018 15:30:35 Reading Location: [facility] Radiology Reading Room Addendum Ends FINAL REPORT TECHNIQUE: Supine radiograph of the abdomen dated 09/05/2018 HISTORY: Evaluate for retained video capsule. COMPARISON: None IMPRESSION: No air-filled, dilated loops of bowel to suggest obstruction. No free intraperitoneal air. No abnormal soft tissue mass. No radiodense foreign body visualized. Bones are unremarkable. Signed: Reza Lira MD Report Verified Date/Time:09/05/2018 14:53:33 Reading Location: [facility] Radiology Reading Room Procedure Note Interface, External [...] Report Verified Date/Time: 09/05/2018 15:30:35 Reading Location: [facility] Radiology Reading Room Addendum Ends FINAL REPORT TECHNIQUE: Supine radiograph of the abdomen dated 09/05/2018 HISTORY: Evaluate for retained video capsule. COMPARISON: None IMPRESSION: No air-filled, dilated loops of bowel to suggest obstruction. No free intraperitoneal air. No abnormal soft tissue mass. No radiodense foreign body visualized. Bones are unremarkable. Signed: Reza Lira MD Report Verified Date/Time: 09/05/2018 14:53:33 Reading Location: [facility] Radiology Reading Room Performing Organization Address City/State/Zipcode Phone Number GE RIS CBC (Hemogram only) (09/05/2018 5:03 AM CDT)Only the most recent of3 resultswithin the time period is included. WBC 7.3 3.5 - 10.5 K/L [facility] RBC 3.92 (L) 3.93 - 5.22 M/L [facility] Hemoglobin 10.2 (L) 11.2 - 15.7 GM/DL [facility] Hematocrit 33.0 (L) 34.1 - 44.9 % [facility] MCV 84.2 79.4 - 94.8 fL [facility] MCH 26.0 25.6 - 32.2 pg [facility] MCHC 30.9 (L) 32.2 - 35.5 GM/DL [facility] RDW 18.8 (H) 11.7 - 14.4 % [facility] Platelets 380 150 - 450 K/CU MM [facility] MPV 10.3 9.4 - 12.3 fL [facility] nRBC 0 0 - 0 /100 WBC [facility] Specimen Blood Performing Organization Address City/State/Zipcode Phone Number [facility] [address] [place] [address] CENTER Basic metabolic panel (09/05/2018 5:03 AM CDT)Only the most recent of3 resultswithin the time period is included. Sodium 138 136 - 145 meq/L [facility] Potassium 4.3 3.5 - 5.1 meq/L [facility] Chloride 110 (H) 98 - 107 meq/L [facility] CO2 23 22 - 29 meq/L [facility] BUN 8 7 - 21 mg/dL [facility] Creatinine 0.66 0.57 - 1.25 mg/dL [facility] Glucose 107 (H) 70 - 105 mg/dL [facility] Calcium 9.0 8.4 - 10.2 mg/dL [facility] EGFR 95Comment: ESTIMATED GFR IS mL/min/1.73 sq m [facility] NOT ACCURATE [facility] CLEARANCE IN PREDICTING GLOMERULAR FILTRATION RATE. ESTIMATED GFR IS NOT APPLICABLE FOR DIALYSIS PATIENTS. Specimen Blood Performing Organization Address City/State/Zipcode Phone Number [facility] [address] [place], [place] [id number] [facility] Celiac Disease Panel (09/04/2018 5:46 PM CDT) Scan Result [facility] Celiac Disease Profile Refer to Celiac [facility] results. Specimen Blood Narrative Performed At Performing Organization Address City/State/Zipcode Phone Number [place] [address] [id number] C-Reactive Protein (09/04/2018 5:46 PM CDT) CRP 0.38 0.00 - 0.50 mg/dL [facility] Specimen Blood Performing Organization Address City/State/Zipcode Phone Number [facility] [address] [place] [address] CENTER GI Pathogen Profile by PCR -ID Only (09/04/2018 5:37 PM CDT) CAMPYLOBACTER (PCR) Not detected Not detected [facility] PLESIOMONAS SHIGELLOIDES (PCR) Not detected Not detected [facility] MED[facility] LIHUE SALMONELLA (PCR) Not detected Not detected [facility] YERSINIA ENTEROCOLITICA (PCR) Not detected Not detected [facility] VIBRIO CHOLERAE (PCR) Not detected Not detected [facility] ENTEROAGGREGATIVE E. COLI (EAEC) Not detected Not detected [facility] BY PCR MEDICAL CENTER ENTEROPATHOGENIC E. COLI (EPEC) BY Not detected Not detected [facility] PCR MEDICAL CENTER ENTEROTOXIGENIC E. COLI (ETEC) Not detected Not detected [facility] LT/ST BY PCR [facility] SHIGA-LIKE TOXIN-PRODUCING E. COLI Not detected Not detected [facility] (STEC) STX1/STX2 [facility] E. COLI O157 (PCR) Not detected [facility] SHIGELLA/ENTEROINVASIVE E. COLI Not detected Not detected [facility] (EIEC) BY PCR [facility] CRYPTOSPORIDIUM (PCR) Not detected Not detected [facility] CYCLOSPORA CAYETANENSIS (PCR) Not detected Not detected [facility] ENTAMOEBA HISTOLYTICA (PCR) Not detected Not detected [facility] GIARDIA LAMBLIA (PCR) Not detected Not detected [facility] ADENOVIRUS F 40/41 (PCR) Not detected Not detected [facility] ASTROVIRUS (PCR) Not detected Not detected [facility] NOROVIRUS GI/GII (PCR) Not detected Not detected [facility] ROTAVIRUS A (PCR) Not detected Not detected [facility] SAPOVIRUS (I, II, IV, V) BY PCR Not detected Not detected [facility] VIBRIO (PARAHAEMOLYTICUS, Not detected Not detected [facility] VULNIFICUS) [facility] Specimen Stool Narrative Performed At Other viruses, parasites and bacteria not [facility] targeted by this PCR panel cannot be excluded; therefore clinical correlation and follow up of serology, culture results, and other molecular studies is required. The results are not intended to be used as the sole means for clinical diagnosis or patient management decisions. This sample was tested at the [facility] using the [employer] Gastrointestinal Panel. It is FDA cleared and has been verified and approved by the [facility] for clinical use. This laboratory is CLIA-certified and [employer] (CAP)-accredited to perform high complexity testing. Performing Organization Address City/State/Zipcode Phone Number [facility] [address] [place] [address] [phone] CENTER H. pylori antigen, stool (09/04/2018 5:37 [...] Lab [facility] *[facility], [address] [place] [id number] Juan Mak MD, PhD Performing Organization Address City/State/Zipcode Phone Number [facility] [place] [address] [id number] Iron, TIBC, % sat. (without ferritin) (09/04/2018 3:59 AM CDT) Iron 15.0 (L) 40.0 - 160.0 ug/dL [facility] TIBC 274 250 - 450 ug/dL [facility] Iron % Saturation 5 (L) 20 - 55 % [facility] Specimen Blood Performing Organization Address [facility] Phone Number [address] [address] [phone] CENTER Reticulocyte count (09/04/2018 3:59 AM CDT) % Retic 1.1 0.5 - 1.7 % [facility] Specimen Blood Performing Organization Address [facility] Phone Number [address] [address] CENTER Ferritin (09/04/2018 3:59 AM CDT) Ferritin 13 5 - 275 ng/mL [facility] Specimen Blood Performing Organization Address [facility] Phone Number [address] [address] [phone] [place] Screen, urine (09/03/2018 2:16 PM CDT) Preg Test, Ur Negative [facility] Specimen Urine Performing Organization Address City/State/Zipcode Phone Number [facility] [address] [place] [address] [phone] CENTER after 12/12/2017 Advance Directives For more information, please contact:[address] [phone] Code Status Date Activated Date Inactivated Comments Full Code 09/02/2018 9:07 PM 09/06/2018 2:52 PM This code status was determined by: Patient
--- OUTSIDE RECORDS SUMMARY | 2018-12-13 03:02 | XMS REPORT | Clinical Summary ---
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
--- OUTSIDE RECORDS SUMMARY | 2018-12-13 03:05 | XMS REPORT ---
:1970 [facility] [address] [place] [address] Care Team Providers Name Role Phone UNKNOWN, [...] Department ID 2017-07-02 2017-07-02 Emergency E [facility] [id number] 08:16:00 08:16:00 Results Test Description Test Time Test Comments Text Results Atomic Results Result Comments CELIAC DISEASE PANEL 2018-09-08 08:06:00 Test Item Value Reference Range Comments SCAN RESULT (test iqwu=[id number]) CELIAC DISEASE PROFILE AUTOVERIFICATION Refer to Celiac Disease Panel (QUEST) (test bbrt=[id number]) results. CT, [id number] 19:42:00Only need IV contrast, not POFINAL REPORT [...] Verified Date/Time: 09/05/2018 19:42: 13 Reading Location: [facility] C013 Consult Reading Room RAD, ABDOMEN/KUB, 1 VIEW [id number] 15:30:00Reason for exam:->look for retained video capsuleAddendum BeginsREPORT STATUS:A Addendum:The video capsule is seen projected over the right iliac wing. It could be in the distal ileum versus large bowel. If in exact location isneeded. CT scan will be necessary. End of addendum. Signed: Gisele Lira MDReport Verified Date/ Time: 09/05/2018 15:30:35 Reading Location: [facility] Radiology Reading RoomAddendum EndsFINAL REPORT TECHNIQUE: Supine radiograph of the abdomen dated 09/05/2018 HISTORY: Evaluate for retained video capsule. COMPARISON: None IMPRESSION:No air-filled, dilated loops of bowel to suggest obstruction. No free intraperitoneal air. No abnormal soft tissue mass. No radiodense foreign body visualized. Bones are unremarkable. Signed: Gisele Lira MDReport Verified Date/Time: 09/05/2018 14:53:33 Reading Location: [facility] Radiology Reading Room GI PATHOGEN PROFILE BY [id number] 10:43:00 Test Item Value Reference Range Comments CAMPYLOBACTER (PCR) (test wrwk=[id number]) Not detected Not detected PLESIOMONAS SHIGELLOIDES (PCR) (test Not detected Not detected mwnx=2134255) SALMONELLA (PCR) (test qpuz=9624266) Not detected Not detected YERSINIA ENTEROCOLITICA (PCR) (test Not detected Not detected vsrd=3080824) VIBRIO CHOLERAE (PCR) (test qttp=1367151) Not detected Not detected ENTEROAGGREGATIVE E. COLI (EAEC) BY PCR (test Not detected Not detected zpmy=7230692) ENTEROPATHOGENIC E. COLI (EPEC) BY PCR (test Not detected Not detected vmhu=0122628) ENTEROTOXIGENIC E. COLI (ETEC) LT/ST BY PCR Not detected Not detected (test gljo=5128904) SHIGA-LIKE TOXIN-PRODUCING E. COLI (STEC) Not detected Not detected STX1/STX2 (test tyip=7366790) E. COLI O157 (PCR) (test qbyc=1711730) Not detected SHIGELLA/ENTEROINVASIVE E. COLI (EIEC) BY PCR Not detected Not detected (test tvav=3273858) CRYPTOSPORIDIUM (PCR) (test qkui=3363096) Not detected Not detected CYCLOSPORA CAYETANENSIS (PCR) (test Not detected Not detected keaj=2632636) ENTAMOEBA HISTOLYTICA (PCR) (test jvtc=3495350) Not detected Not detected GIARDIA LAMBLIA (PCR) (test ousg=7951027) Not detected Not detected ADENOVIRUS F 40/41 (PCR) (test ofex=7363259) Not detected Not detected ASTROVIRUS (PCR) (test nbqa=2449749) Not detected Not detected NOROVIRUS GI/GII (PCR) (test jpdy=2714236) Not detected Not detected ROTAVIRUS A (PCR) (test wsun=1926571) Not detected Not detected SAPOVIRUS (I, II, IV, V) BY PCR (test Not detected Not detected vlxx=6316655) VIBRIO (PARAHAEMOLYTICUS, VULNIFICUS) (test Not detected Not detected itzy=0394844) Other viruses, parasites and bacteria not targeted by this PCR panel cannot be excluded; therefore clinical correlation and follow up of serology, culture results, and other molecular studies is required. The results are not intended to be used as the sole means for clinical diagnosis or patient management decisions. This sample was tested at the [facility] using the [employer] Gastrointestinal Panel. It is FDA cleared and has been verified and approved by the [facility] for clinical use. This laboratory is CLIA-certified and College ofAmerican Pathologists (CAP)-accredited to perform high complexity testing.BASIC METABOLIC [id number] 05:42:00 Test Item Value Reference Range Comments SODIUM (BEAKER) (test 138 meq/L 136-145 wmio=543) POTASSIUM (BEAKER) (test 4.3 meq/L 3.5-5.1 oqql=458) CHLORIDE (BEAKER) (test 110 meq/L 98-107 lwsm=080) CO2 (BEAKER) (test 23 meq/L 22-29 xzeq=242) BLOOD UREA NITROGEN 8 mg/dL 7-21 (BEAKER) (test hwcl=688) CREATININE (BEAKER) (test 0.66 mg/dL 0.57-1.25 vjns=780) GLUCOSE RANDOM (BEAKER) 107 mg/dL 70-105 (test adke=409) CALCIUM (BEAKER) (test 9.0 mg/dL 8.4-10.2 ctmo=308) EGFR (BEAKER) (test 95 mL/min/1.73 sq m ESTIMATED GFR IS NOT jqen=0988) ACCURATE CREATININE CLEARANCE IN PREDICTING GLOMERULAR FILTRATION RATE. ESTIMATED GFR IS NOT APPLICABLE FOR DIALYSIS PATIENTS. CBC (HEMOGRAM ONLY)2018-09-05 05:23:00 Test Item Value Reference Range Comments WHITE BLOOD CELL COUNT (BEAKER) (test zpxd=691) 7.3 K/ L 3.5-10.5 RED BLOOD CELL COUNT (BEAKER) (test tbzd=735) 3.92 M/ L 3.93-5.22 HEMOGLOBIN (BEAKER) (test agyb=603) 10.2 GM/DL 11.2-15.7 HEMATOCRIT (BEAKER) (test bprt=113) 33.0 % 34.1-44.9 MEAN CORPUSCULAR VOLUME (BEAKER) (test enel=327) 84.2 fL 79.4-94.8 MEAN CORPUSCULAR HEMOGLOBIN (BEAKER) (test 26.0 pg 25.6-32.2 fljk=797) MEAN CORPUSCULAR HEMOGLOBIN CONC (BEAKER) (test 30.9 GM/DL 32.2-35.5 twfy=755) RED CELL DISTRIBUTION WIDTH (BEAKER) (test 18.8 % 11.7-14.4 qlkx=371) PLATELET COUNT (BEAKER) (test ulri=877) 380 K/CU MM 150-450 MEAN PLATELET VOLUME (BEAKER) (test zvie=443) 10.3 fL 9.4-12.3 NUCLEATED RED BLOOD CELLS (BEAKER) (test 0 /100 WBC 0-0 deqc=801) C-REACTIVE [id number] 18:59:00 Test Item Value Reference Range Comments C-REACTIVE PROTEIN (BEAKER) (test qtdt=174) 0.38 mg/dL 0.00-0.50 [id number] 05:48:00 Test Item Value Reference Range Comments FERRITIN (BEAKER) (test qice=430) 13 ng/mL 5-275 BASIC METABOLIC [id number] 05:27:00 Test Item Value Reference Range Comments SODIUM (BEAKER) (test 139 meq/L 136-145 qzib=762) POTASSIUM (BEAKER) (test 4.0 meq/L 3.5-5.1 pvvv=192) CHLORIDE (BEAKER) (test 112 meq/L 98-107 hnmf=954) CO2 (BEAKER) (test 23 meq/L 22-29 xece=341) BLOOD UREA NITROGEN 3 mg/dL 7-21 (BEAKER) (test jkmv=582) CREATININE (BEAKER) (test 0.62 mg/dL 0.57-1.25 atlp=404) GLUCOSE RANDOM (BEAKER) 91 mg/dL 70-105 (test jweq=047) CALCIUM (BEAKER) (test 8.4 mg/dL 8.4-10.2 rmhy=016) EGFR (BEAKER) (test 102 mL/min/1.73 sq m ESTIMATED GFR IS NOT dhwk=6035) ACCURATE CREATININE CLEARANCE IN PREDICTING GLOMERULAR FILTRATION RATE. ESTIMATED GFR IS NOT APPLICABLE FOR DIALYSIS PATIENTS. IRON, TIBC, % SAT. (WITHOUT FERRITIN)2018-09-04 05:26:00 Test Item Value Reference Range Comments IRON (BEAKER) (test ckuw=266) 15.0 ug/dL 40.0-160.0 TOTAL IRON BINDING CAPACITY (BEAKER) (test 274 ug/dL 250-450 kywf=438) IRON % SATURATION (2) (BEAKER) (test ogcd=9063) 5 % 20-55 CBC (HEMOGRAM ONLY)2018-09-04 05:05:00 Test Item Value Reference Range Comments WHITE BLOOD CELL COUNT (BEAKER) (test hpuu=262) 5.9 K/ L 3.5-10.5 RED BLOOD CELL COUNT (BEAKER) (test gygm=955) 3.67 M/ L 3.93-5.22 HEMOGLOBIN (BEAKER) (test jkps=440) 9.8 GM/DL 11.2-15.7 HEMATOCRIT (BEAKER) (test jvbd=782) 30.7 % 34.1-44.9 MEAN CORPUSCULAR VOLUME (BEAKER) (test jtle=988) 83.7 fL 79.4-94.8 MEAN CORPUSCULAR HEMOGLOBIN (BEAKER) (test 26.7 pg 25.6-32.2 xzic=614) MEAN CORPUSCULAR HEMOGLOBIN CONC (BEAKER) (test 31.9 GM/DL 32.2-35.5 pjuu=337) RED CELL DISTRIBUTION WIDTH (BEAKER) (test 18.9 % 11.7-14.4 kfpm=448) PLATELET COUNT (BEAKER) (test rkny=070) 361 K/CU MM 150-450 MEAN PLATELET VOLUME (BEAKER) (test cpjr=582) 10.3 fL 9.4-12.3 NUCLEATED RED BLOOD CELLS (BEAKER) (test 0 /100 WBC 0-0 wvch=750) RETICULOCYTE [id number] 05:05:00 Test Item Value Reference Range Comments RETICULOCYTE COUNT PCT (BEAKER) (test mhrk=770) 1.1 % 0.5-1.7 SCREEN, [id number] 15:17:00 Test Item Value Reference Range Comments TEST URINE (BEAKER) (test oahr=374) Negative BASIC METABOLIC [id number] 04:53:00 Test Item Value Reference Range Comments SODIUM (BEAKER) (test 136 meq/L 136-145 kmsf=610) POTASSIUM (BEAKER) (test 3.8 meq/L 3.5-5.1 sake=410) CHLORIDE (BEAKER) (test 109 meq/L 98-107 awdx=887) CO2 (BEAKER) (test 24 meq/L 22-29 rice=821) BLOOD UREA NITROGEN 5 mg/dL 7-21 (BEAKER) (test ixlq=828) CREATININE (BEAKER) (test 0.60 mg/dL 0.57-1.25 oqai=670) GLUCOSE RANDOM (BEAKER) 88 mg/dL 70-105 (test tprw=963) CALCIUM (BEAKER) (test 8.3 mg/dL 8.4-10.2 dcfs=183) EGFR (BEAKER) (test 106 mL/min/1.73 sq m ESTIMATED GFR IS NOT gtst=4614) ACCURATE CREATININE CLEARANCE IN PREDICTING GLOMERULAR FILTRATION RATE. ESTIMATED GFR IS NOT APPLICABLE FOR DIALYSIS PATIENTS. CBC (HEMOGRAM ONLY)2018-09-03 04:33:00 Test Item Value Reference Range Comments WHITE BLOOD CELL COUNT (BEAKER) (test yblm=096) 5.8 K/ L 3.5-10.5 RED BLOOD CELL COUNT (BEAKER) (test vmbw=062) 3.53 M/ L 3.93-5.22 HEMOGLOBIN (BEAKER) (test elpu=772) 9.2 GM/DL 11.2-15.7 HEMATOCRIT (BEAKER) (test dkxs=776) 29.7 % 34.1-44.9 MEAN CORPUSCULAR VOLUME (BEAKER) (test ffwu=994) 84.1 fL 79.4-94.8 MEAN CORPUSCULAR HEMOGLOBIN (BEAKER) (test 26.1 pg 25.6-32.2 lzcu=504) MEAN CORPUSCULAR HEMOGLOBIN CONC (BEAKER) (test 31.0 GM/DL 32.2-35.5 mgoz=711) RED CELL DISTRIBUTION WIDTH (BEAKER) (test 18.8 % 11.7-14.4 ntec=481) PLATELET COUNT (BEAKER) (test rhkj=277) 337 K/CU MM 150-450 MEAN PLATELET VOLUME (BEAKER) (test ighi=647) 9.7 fL 9.4-12.3 NUCLEATED RED BLOOD CELLS (BEAKER) (test 0 /100 WBC 0-0 xosj=700)
--- NOTE | 2018-12-13 03:09 | ER ---
Nurse's Notes [facility] Name: Dayami Espinosa Age: 48 yrs Sex: Female : 1970 Arrival Date: 12/13/2018 Time: 03:01 Bed 15 Private MD: Diagnosis: Pain in right foot Presentation: 12/13 03:00 Presenting complaint: EMS states: she is complaining of right foot pain, no swelling, rr5 good pulse no trauma noted. 03:00 Transition of care: patient was not received from another setting of care. Onset of rr5 symptoms was December 13, 2018. Risk Assessment: Do you want to hurt yourself or someone else? Patient reports no desire to harm self or others. Initial Sepsis Screen: Does the patient meet any 2 criteria? No. Patient's initial sepsis screen is negative. Does the patient have a suspected source of infection? No. Patient's initial sepsis screen is negative. Care prior to arrival: None. 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 - Social history:: Smoking status: Patient uses tobacco products, smokes one-half pack cigarettes per day, Patient/guardian denies using alcohol, street drugs. - Ebola Screening: : Patient negative for fever greater than or equal to 101.5 degrees Fahrenheit, and additional compatible Ebola Virus Disease symptoms Patient denies exposure to infectious person Patient denies travel to an Ebola-affected area in the 21 days before illness onset. Screenin:12 Abuse screen: Denies threats or abuse. Denies injuries from another. Nutritional rr5 screening: No deficits noted. Tuberculosis screening: No symptoms or risk factors identified. Fall Risk None identified. Total Alfred Fall Scale indicates No Risk (0-24 pts). Assessment: 03:13 General: Appears in no apparent distress. comfortable, Behavior is calm, cooperative, rr5 appropriate for age. Pain: Complains of pain in right foot Pain does not radiate. Pain currently is 10 out of 10 on a pain scale. Quality of pain is described as aching, Pain began gradually, Is intermittent. Neuro: Level of Consciousness is awake, alert, obeys commands, Oriented to person, place, time, situation, Appropriate for age. Cardiovascular: Capillary refill < 3 seconds Patient's skin is warm and dry. Respiratory: Airway is patent Respiratory effort is even, unlabored, Respiratory pattern is regular, symmetrical. GI: No signs and/or symptoms were reported involving the gastrointestinal system. : No signs and/or symptoms were reported regarding the genitourinary system. EENT: No signs and/or symptoms were reported regarding the EENT system. Derm: Skin is intact, Skin temperature is warm. Musculoskeletal: Circulation, motion, and sensation intact. Capillary refill < 3 seconds, Reports pain in right foot since 2 hours ago. Pain is 10 out of 10 on a pain scale. 03:24 Reassessment: Patient appears in no apparent distress at this time. Patient is alert, rr5 oriented x 3, equal unlabored respirations, skin warm/dry/pink. discharge instruction given and explained without complaints made. Vital Signs: 03:03 BP 113 / 86; Pulse 74; Resp 17 S; Temp 98.1(O); Pulse Ox 100% on R/A; Weight 48.99 kg jd3 (R); Height 5 ft. 8 in. (172.72 cm) (R); Pain 10/10; 03:03 Body Mass Index 16.42 (48.99 kg, 172.72 cm) jd3 ED Course: 03:01 Patient arrived in ED. em1 03:06 Isai Isabel MD is Attending Physician. tw4 03:08 Brandin Figueroa RN is Primary Nurse. rr5 03:11 Triage completed. rr5 03:12 Arm band placed on right wrist. rr5 03:12 Patient has correct armband on for positive identification. Bed in low position. rr5 03:24 No provider procedures requiring assistance completed. Patient did not have IV access rr5 during this emergency room visit. 03:45 Primary Nurse role handed off by Brandin Figueroa, RN rr5 Administered Medications: 03:10 Drug: Ibuprofen 800 mg Route: PO; rr5 Outcome: 03:08 Discharge ordered by . tw4 03:24 Patient left the ED. rr5 03:24 Discharged to home via wheelchair. rr5 03:24 Condition: stable 03:24 Discharge instructions given to patient, Instructed on discharge instructions, follow up and referral plans. medication usage, Demonstrated understanding of instructions, follow-up care, medications, Prescriptions given X 1. 03:46 Patient left the ED. rr5 Signatures: Farhat Colby em1 Matt Meraz RN RN jd3 Isai Isabel MD MD tw4 Brandin Figueroa RN RN rr5 Corrections: (The following items were deleted from the chart) 03:05 03:03 BP 113 / 86; Pulse 74bpm; Resp 17bpm; Spontaneous; Pulse Ox 100% RA; Temp 98.1F jd3 Oral; jd3 03:06 03:03 BP 113 / 86; Pulse 74bpm; Resp 17bpm; Spontaneous; Pulse Ox 100% RA; Temp 98.1F jd3 Oral; 45.36 kg Reported; Height 5 ft. 4 in. Reported; BMI: 17.1; Pain 10; jd3
[2018-12-13] MEDS ORDERED: IBUPROFEN 400 MG TAB ONE (03:20)
--- NOTE | 2018-12-13 03:25 | EDPHYS ---
Physician Documentation [facility] Name: Dayami Espinosa Age: 48 yrs Sex: Female : 1970 Arrival Date: 12/13/2018 Time: 03:01 Bed 15 Private MD: ED Physician Isai Isabel HPI: 12/13 03:10 This 48 yrs old Female presents to ER via Unassigned with complaints of right tw4 foot pain. 03:10 The patient presents with pain. The patient presents with pain, that is chronic. The tw4 complaints affect the right foot. Context: The problem was sustained at home. Onset: The symptoms/episode began/occurred acutely. Modifying factors: The symptoms are alleviated by nothing, the symptoms are aggravated by nothing. Severity of symptoms: At their worst the symptoms were mild. The patient has not experienced similar symptoms in the past. 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 - Social history:: Smoking status: Patient uses tobacco products, smokes one-half pack cigarettes per day, Patient/guardian denies using alcohol, street drugs. - Ebola Screening: : Patient negative for fever greater than or equal to 101.5 degrees Fahrenheit, and additional compatible Ebola Virus Disease symptoms Patient denies exposure to infectious person Patient denies travel to an Ebola-affected area in the 21 days before illness onset. ROS: 03:10 MS/extremity: Positive for pain. tw4 03:10 Constitutional: Negative for fever, chills, and weight loss, Eyes: Negative for injury, pain, redness, and discharge, Cardiovascular: Negative for chest pain, palpitations, and edema, Respiratory: Negative for shortness of breath, cough, wheezing, and pleuritic chest pain, Abdomen/GI: Negative for abdominal pain, nausea, vomiting, diarrhea, and constipation, Back: Negative for injury and pain, Skin: Negative for injury, rash, and discoloration, Neuro: Negative for headache, weakness, numbness, tingling, and seizure. Exam: 03:10 Constitutional: This is a well developed, well nourished patient who is awake, alert, tw4 and in no acute distress. Head/Face: Normocephalic, atraumatic. Chest/axilla: Normal chest wall appearance and motion. Nontender with no deformity. No lesions are appreciated. Cardiovascular: Regular rate and rhythm with a normal S1 and S2. No gallops, murmurs, or rubs. Normal PMI, no JVD. No pulse deficits. Respiratory: Lungs have equal breath sounds bilaterally, clear to auscultation and percussion. No rales, rhonchi or wheezes noted. No increased work of breathing, no retractions or nasal flaring. Abdomen/GI: Soft, non-tender, with normal bowel sounds. No distension or tympany. No guarding or rebound. No evidence of tenderness throughout. Back: No spinal tenderness. No costovertebral tenderness. Full range of motion. Neuro: Awake and alert, GCS 15, oriented to person, place, time, and situation. Cranial nerves II-XII grossly intact. Motor strength 5/5 in all extremities. Sensory grossly intact. Cerebellar exam normal. Normal gait. 03:10 Musculoskeletal/extremity: Extremities: noted in the medial aspect of right toes: pain. Vital Signs: 03:03 BP 113 / 86; Pulse 74; Resp 17 S; Temp 98.1(O); Pulse Ox 100% on R/A; Weight 48.99 kg jd3 (R); Height 5 ft. 8 in. (172.72 cm) (R); Pain 1010; 03:03 Body Mass Index 16.42 (48.99 kg, 172.72 cm) jd3 MDM: 03:06 Patient medically screened. tw4 Administered Medications: 03:10 Drug: Ibuprofen 800 mg Route: PO; rr5 Disposition: 05:13 Chart complete. tw4 Disposition: 12/13/18 03:08 Discharged to Home. Impression: Pain in right foot. - Condition is Stable. - Discharge Instructions: Foot Pain. - Prescriptions for Ibuprofen 800 mg Oral Tablet - take 1 tablet by ORAL route every 8 hours As needed take with food; 30 tablet. - Medication Reconciliation Form, Thank You Letter, Antibiotic Education, Prescription Opioid Use form. - Follow up: Private Physician; When: Upon discharge from the Emergency Department; Reason: If symptoms return, Recheck today's complaints, Continuance of care. - Problem is new. - Symptoms have improved. Signatures: Isai Isabel MD MD tw4 Brandin Figueroa RN RN rr5 Corrections: (The following items were deleted from the chart) 03:24 03:08 12/13/2018 03:08 Discharged to Home. Impression: Pain in right foot. Condition is rr5 Stable. Forms are Medication Reconciliation Form, Thank You Letter, Antibiotic Education, Prescription Opioid Use. Follow up: Private Physician; When: Upon discharge from the Emergency Department; Reason: If symptoms return, Recheck today's complaints, Continuance of care. Problem is new. Symptoms have improved. tw4 03:46 03:24 12/13/2018 03:08 Discharged to Home. Impression: Pain in right foot. Condition is rr5 Stable. Discharge Instructions: Foot Pain. Prescriptions for Ibuprofen 800 mg Oral Tablet - take 1 tablet by ORAL route every 8 hours As needed take with food; 30 tablet. and Forms are Medication Reconciliation Form, Thank You Letter, Antibiotic Education, Prescription Opioid Use. Follow up: Private Physician; When: Upon discharge from the Emergency Department; Reason: If symptoms return, Recheck today's complaints, Continuance of care. Problem is new. Symptoms have improved. rr5
[2018-12-13 03:28] VITALS: BP 113/86; TEMP 98.1; O2SAT 100
== END 2018-12-13 03:46 | disposition home or self-care (01) ==
LOC: ER 02:59
DX: M79.671 Pain in right foot (principal); F31.70 Bipolar disorder, currently in remission, most recent episode unspecified; F17.210 Nicotine dependence, cigarettes, uncomplicated; Z88.1 Allergy status to other antibiotic agents; Z88.8 Allergy status to other drugs, medicaments and biological substances
CPT/HCPCS: 99283

== ENCOUNTER 2019-01-15 01:12 | Emergency (ER) | payer SELFPAY ==
--- NOTE | 2019-01-15 01:54 | EDPHYS ---
Physician Documentation [facility] Name: Dayami Espinosa Age: 48 yrs Sex: Female : 1970 Arrival Date: 01/15/2019 Time: 01:13 Bed 18 Private MD: ED Physician Oliver Kaye HPI: 01/15 01:52 This 48 yrs old Female presents to ER via EMS with unknown complaint. gs 01:52 The patient presents with an injury. The complaints affect the right knee. Context: gs resulted from the patient falling, while walking. Onset: The symptoms/episode began/occurred 1 week(s) ago. Modifying factors: The symptoms are alleviated by nothing. the symptoms are aggravated by movement. Associated signs and symptoms: Pertinent negatives weakness, swelling. Severity of symptoms: At their worst the symptoms were very mild, in the emergency department the symptoms are unchanged. The patient has not experienced similar symptoms in the past. 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 - Social history:: Smoking status: Patient uses tobacco products, smokes one-half pack cigarettes per day. - Ebola Screening: : No symptoms or risks identified at this time. ROS: 01:52 All other systems are negative. gs Exam: 01:52 Head/Face: Normocephalic, atraumatic. Eyes: Pupils equal round and reactive to light, gs extra-ocular motions intact. Lids and lashes normal. Conjunctiva and sclera are non-icteric and not injected. Cornea within normal limits. Periorbital areas with no swelling, redness, or edema. ENT: Nares patent. No nasal discharge, no septal abnormalities noted. Tympanic membranes are normal and external auditory canals are clear. Oropharynx with no redness, swelling, or masses, exudates, or evidence of obstruction, uvula midline. Mucous membranes moist. Neck: Trachea midline, no thyromegaly or masses palpated, and no cervical lymphadenopathy. Supple, full range of motion without nuchal rigidity, or vertebral point tenderness. No Meningismus. Chest/axilla: Normal chest wall appearance and motion. Nontender with no deformity. No lesions are appreciated. Cardiovascular: Regular rate and rhythm with a normal S1 and S2. No gallops, murmurs, or rubs. Normal PMI, no JVD. No pulse deficits. Respiratory: Lungs have equal breath sounds bilaterally, clear to auscultation and percussion. No rales, rhonchi or wheezes noted. No increased work of breathing, no retractions or nasal flaring. Abdomen/GI: Soft, non-tender, with normal bowel sounds. No distension or tympany. No guarding or rebound. No evidence of tenderness throughout. Back: No spinal tenderness. No costovertebral tenderness. Full range of motion. Skin: Warm, dry with normal turgor. Normal color with no rashes, no lesions, and no evidence of cellulitis. MS/ Extremity: Pulses equal, no cyanosis. Neurovascular intact. Full, normal range of motion. Neuro: Awake and alert, GCS 15, oriented to person, place, time, and situation. Cranial nerves II-XII grossly intact. Motor strength 5/5 in all extremities. Sensory grossly intact. Cerebellar exam normal. Normal gait. 01:52 Constitutional: The patient appears alert, awake. Vital Signs: 01:15 BP 115 / 80; Pulse 82; Resp 19; Pulse Ox 97% ; Weight 49.9 kg; Height 5 ft. 3 in. rv (160.02 cm); Pain 10/10; 01:15 Body Mass Index 19.49 (49.90 kg, 160.02 cm) rv MDM: 01:25 Patient medically screened. 01:52 Data reviewed: vital signs, nurses notes. Administered Medications: No medications were administered Disposition: 01/15/19 01:53 Discharged to Home. Impression: Encounter for screening, unspecified. - Condition is Stable. - Medication Reconciliation Form, Thank You Letter, Antibiotic Education, Prescription Opioid Use form. Signatures: Oliver Kaye MD MD Brant Sutton RN RN rv Mita Hassan cc3 Corrections: (The following items were deleted from the chart) 01:54 01:53 01/15/2019 01:53 Discharged to Home. Impression: Encounter for screening, cc3 unspecified. Condition is Stable. Forms are Medication Reconciliation Form, Thank You Letter, Antibiotic Education, Prescription Opioid Use. gs
--- NOTE | 2019-01-15 01:54 | ER ---
Nurse's Notes [facility] Name: Dayami Espinosa Age: 48 yrs Sex: Female : 1970 Arrival Date: 01/15/2019 Time: 01:13 Bed 18 Private MD: Diagnosis: Encounter for screening, unspecified Presentation: 01/14 08:00 Presenting complaint: EMS states: complains of knee pain which she got from falling in [facility] couple of days ago. hurting her right knee, and only takes Tylenol. she has not taken any Tylenol since yesterday. Transition of care: patient was not received from another setting of care. Onset of symptoms was January 14, 2019 at 08:00. Risk Assessment: Do you want to hurt yourself or someone else? Patient reports no desire to harm self or others. Initial Sepsis Screen: Does the patient meet any 2 criteria? No. Patient's initial sepsis screen is negative. Does the patient have a suspected source of infection? No. Patient's initial sepsis screen is negative. Care prior to arrival: None. 08:00 Method Of Arrival: EMS: [facility] 08:00 Acuity: JAZMIN 4 rv Triage Assessment: 01/15 01:15 General: Behavior is calm, cooperative, appropriate for age. 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 - Social history:: Smoking status: Patient uses tobacco products, smokes one-half pack cigarettes per day. - Ebola Screening: : No symptoms or risks identified at this time. Screenin:14 Abuse screen: Denies threats or abuse. Denies injuries from another. Nutritional cc3 screening: No deficits noted. Tuberculosis screening: No symptoms or risk factors identified. Fall Risk Ambulatory Aid- None/Bed Rest/Nurse Assist (0 pts). Gait- Normal/Bed Rest/Wheelchair (0 pts) Mental Status- Oriented to own ability (0 pts). Assessment: 01:18 General: Appears in no apparent distress. rv 01:20 General: Appears in no apparent distress. comfortable, Behavior is calm, cooperative, cc3 appropriate for age. Pain: Complains of pain in right knee. Neuro: Level of Consciousness is awake, alert, obeys commands, Oriented to person, place, time, situation, Appropriate for age. Cardiovascular: Denies chest pain, Heart tones S1 S2 present Capillary refill < 3 seconds in bilateral fingers Patient's skin is warm and dry. Respiratory: Airway is patent Respiratory effort is even, unlabored, Respiratory pattern is regular, symmetrical. GI: Abdomen is flat. : No signs and/or symptoms were reported regarding the genitourinary system. EENT: No signs and/or symptoms were reported regarding the EENT system. Derm: Skin is intact, is healthy with good turgor, Skin is pink, warm \T\ dry. normal. Musculoskeletal: Circulation, motion, and sensation intact. Range of motion: intact in all extremities. 01:50 Reassessment: Patient appears in no apparent distress at this time. Patient and/or cc3 family updated on plan of care and expected duration. Pain level reassessed. Patient is alert, oriented x 3, equal unlabored respirations, skin warm/dry/pink. medically screened the patient, fiscal accounting clerk came over and talked to the patient at bedside. Patient left ER vitally stable by wheelchair escorted to the lobby by civil technician Martha. No valuables left in the patient's room. Patient denies pain at this time. Vital Signs: 01:15 BP 115 / 80; Pulse 82; Resp 19; Pulse Ox 97% ; Weight 49.9 kg; Height 5 ft. 3 in. rv (160.02 cm); Pain 10/10; 01:15 Body Mass Index 19.49 (49.90 kg, 160.02 cm) rv ED Course: 01:13 Patient arrived in ED. rv 01:14 Mita Hassan is Primary Nurse. cc3 01:14 Patient has correct armband on for positive identification. Placed in gown. Bed in low cc3 position. Call light in reach. Side rails up X 1. Pulse ox on. NIBP on. 01:14 Arm band placed on right wrist. cc3 01:15 Triage completed. rv 01:21 Oliver Kaye MD is Attending Physician. 01:50 No provider procedures requiring assistance completed. Patient did not have IV access cc3 during this emergency room visit. Administered Medications: No medications were administered Outcome: 01:50 Medical screen evaluation completed per provider. cc3 01:50 Condition: stable 01:50 Following a medical screening exam, the patient was provided information regarding alternative care sites and resources available per registration personnel. 01:53 Discharge ordered by . 01:54 Patient left the ED. cc3 Signatures: Oliver Kaye MD MD Brant Sutton RN RN Mita Hassan cc3
[2019-01-15 02:00] VITALS: BP 115/80; O2SAT 97
== END 2019-01-15 01:54 | disposition home or self-care (01) ==
LOC: ER 01:12
DX: M25.561 Pain in right knee (principal); Z13.9 Encounter for screening, unspecified; Z88.1 Allergy status to other antibiotic agents; Z88.8 Allergy status to other drugs, medicaments and biological substances; F17.210 Nicotine dependence, cigarettes, uncomplicated
CPT/HCPCS: 99283

== ENCOUNTER 2019-01-16 00:58 | Emergency (ER) | payer SELFPAY ==
[2019-01-16] MEDS ORDERED: NA CHLORIDE 0.9% 1,000 ML ONE (01:25)
[2019-01-16] MEDS ORDERED: KETOROLAC 30 MG/ML INJ ONE (01:26)
[2019-01-16] MEDS ORDERED: ONDANSETRON 4 MG/2 ML VIAL ONE (01:27)
[2019-01-16 03:28] LABS: Absolute Lymphocytes (CBC) 2.6 K/uL (0.7-4.9); Basophils % 1.2 % (0-1.3); Hematocrit 32.8 % (36.0-45.0); Lymphocytes % 23.2 % (15.3-44.8); MPV 8.7 fL (7.6-11.3); RBC Red Blood Cell Count 3.87 M/uL (3.86-4.86)
[2019-01-16 03:37] LABS: ALT/SGPT 17 U/L (12-78); AST/SGOT 15 U/L (15-37); Albumin 3.1 g/dL (3.4-5.0); Alkaline Phosphatase 46 U/L (45-117); BUN Blood Urea Nitrogen 7 mg/dL (7-18); Bicarbonate 21 mmol/L (21-32); Bilirubin Total 0.5 mg/dL (0.2-1.0); Glucose Level 78 mg/dL (74-106); Potassium 3.5 mmol/L (3.5-5.1); Sodium Level 143 mmol/L (136-145)
--- NOTE | 2019-01-16 04:18 | EDPHYS ---
Physician Documentation [facility] Name: Dayami Espinosa Age: 48 yrs Sex: Female : 1970 Arrival Date: 01/16/2019 Time: 00:59 Bed 19 Private MD: ED Physician Derrek Martines HPI: 01/16 01:30 This 48 yrs old Female presents to ER via EMS with complaints of abdominal jr8 pain. 01:30 The patient presents with abdominal pain in the left lower quadrant. Onset: The jr8 symptoms/episode began/occurred 3 hour(s) ago. The symptoms do not radiate. Associated signs and symptoms: Pertinent negatives: nausea, vomiting, and diarrhea. The symptoms are described as sharp. The patient has not experienced similar symptoms in the past. pt reports lower abd pain for 3 hours, denies N/V/D. Denies fever/chills.. 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 - Social history:: Smoking status: Patient uses tobacco products. - Ebola Screening: : Patient negative for fever greater than or equal to 101.5 degrees Fahrenheit, and additional compatible Ebola Virus Disease symptoms Patient denies exposure to infectious person. ROS: 01:30 Constitutional: Negative for fever, chills, and weight loss, Eyes: Negative for injury, jr8 pain, redness, and discharge, ENT: Negative for injury, pain, and discharge, Neck: Negative for injury, pain, and swelling, Cardiovascular: Negative for chest pain, palpitations, and edema, Respiratory: Negative for shortness of breath, cough, wheezing, and pleuritic chest pain, Back: Negative for injury and pain, MS/Extremity: Negative for injury and deformity, Neuro: Negative for headache, weakness, numbness, tingling, and seizure, Psych: Negative for depression, anxiety, suicide ideation, homicidal ideation, and hallucinations. 01:30 Abdomen/GI: Positive for abdominal pain, Negative for nausea and vomiting, nausea, vomiting, and diarrhea, abdominal cramps, abdominal distension, black/tarry stool, rectal pain, rectal bleeding, bowel incontinence. Exam: 01:30 Constitutional: This is a well developed, well nourished patient who is awake, alert, jr8 and in no acute distress. Head/Face: Normocephalic, atraumatic. Eyes: Pupils equal round and reactive to light, extra-ocular motions intact. Lids and lashes normal. Conjunctiva and sclera are non-icteric and not injected. Cornea within normal limits. Periorbital areas with no swelling, redness, or edema. ENT: Nares patent. No nasal discharge, no septal abnormalities noted. Tympanic membranes are normal and external auditory canals are clear. Oropharynx with no redness, swelling, or masses, exudates, or evidence of obstruction, uvula midline. Mucous membranes moist. Neck: Trachea midline, no thyromegaly or masses palpated, and no cervical lymphadenopathy. Supple, full range of motion without nuchal rigidity, or vertebral point tenderness. No Meningismus. Chest/axilla: Normal chest wall appearance and motion. Nontender with no deformity. No lesions are appreciated. Cardiovascular: Regular rate and rhythm with a normal S1 and S2. No gallops, murmurs, or rubs. Normal PMI, no JVD. No pulse deficits. Respiratory: Lungs have equal breath sounds bilaterally, clear to auscultation and percussion. No rales, rhonchi or wheezes noted. No increased work of breathing, no retractions or nasal flaring. Back: No spinal tenderness. No costovertebral tenderness. Full range of motion. 01:30 Abdomen/GI: Inspection: abdomen appears normal, Bowel sounds: normal, in all quadrants, Palpation: abdomen is soft and non-tender, in all quadrants, Indicators: McBurney's point is not tender, Douglas's sign is negative, Rovsing's sign is negative, Obturator sign is negative, Psoas sign is negative. Vital Signs: 01:08 BP 117 / 74; Pulse 85; Resp 18; Temp 97.7; Pulse Ox 98% on R/A; wh 02:03 BP 91 / 50; Pulse 74; Resp 18; Pulse Ox 98% ; wh 03:13 BP 100 / 60; Pulse 71; Resp 16; Pulse Ox 98% on R/A; 04:33 BP 105 / 80; Pulse 78; Resp 18; Pulse Ox 97% on R/A; MDM: 01:01 Patient medically screened. jr8 16:12 Data reviewed: vital signs, nurses notes, lab test result(s), and as a result, I will jr8 discharge patient. Data interpreted: Pulse oximetry: on room air is 97 %. Interpretation: normal. 01/16 01:08 Order name: CBC with Diff jr8 01/16 01:08 Order name: CMP; Complete Time: 04:15 jr8 01/16 01:09 Order name: CBC with Automated Diff; Complete Time: 04:15 EDMS 01/16 01:08 Order name: SL; Complete Time: 02:03 jr8 Administered Medications: 02:03 Drug: NS 0.9% 1000 ml Route: IV; Rate: 1000 ml; Site: right hand; 02:06 Follow up: Response: No adverse reaction; IV Status: Completed infusion 04:34 Follow up: Response: No adverse reaction; IV Status: Completed infusion 02:06 Drug: Zofran 4 mg Route: IVP; Site: right hand; 04:35 Follow up: Response: No adverse reaction 02:06 Drug: TORadol - Ketorolac 15 mg Route: IVP; Site: right hand; 04:35 Follow up: Response: No adverse reaction Disposition: 04:15 Co-signature as Attending Physician, Derrek Martines MD. [facility] Disposition: 01/16/19 04:17 Discharged to Home. Impression: Lower abdominal pain, unspecified. - Condition is Stable. - Discharge Instructions: Abdominal Pain, Adult. - Medication Reconciliation Form, Thank You Letter, Antibiotic Education, Prescription Opioid Use form. - Follow up: Private Physician; When: 2 - 3 days; Reason: Recheck today's complaints, Re-evaluation by your physician. - Problem is new. - Symptoms have improved. Signatures: Dispatcher MedHo EDDerrek Hua MD MD pkBelen Moore RN RN bb Rangel Ibarra PA PA jr8 Kina Valverde Corrections: (The following items were deleted from the chart) 04:34 04:17 01/16/2019 04:17 Discharged to Home. Impression: Lower abdominal pain, wh unspecified. Condition is Stable. Discharge Instructions: Abdominal Pain, Adult. Forms are Medication Reconciliation Form, Thank You Letter, Antibiotic Education, Prescription Opioid Use. Follow up: Private Physician; When: 2 - 3 days; Reason: Recheck today's complaints, Re-evaluation by your physician. Problem is new. Symptoms have improved. pkl
--- NOTE | 2019-01-16 04:18 | ER ---
Nurse's Notes [facility] Name: Dayami Espinosa Age: 48 yrs Sex: Female : 1970 Arrival Date: 01/16/2019 Time: 00:59 Bed 19 Private MD: Diagnosis: Lower abdominal pain, unspecified Presentation: 01/16 01:01 Presenting complaint: EMS states: Pt C/O stabbing Left Lower Quadrant pain that started wh 4 hours ago. Transition of care: patient was not received from another setting of care. Onset of symptoms was January 15, 2019. Risk Assessment: Do you want to hurt yourself or someone else? Patient reports no desire to harm self or others. Initial Sepsis Screen: Does the patient meet any 2 criteria? No. Patient's initial sepsis screen is negative. Does the patient have a suspected source of infection? Yes: Acute abdominal pain. Care prior to arrival: None. 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 - Social history:: Smoking status: Patient uses tobacco products. - Ebola Screening: : Patient negative for fever greater than or equal to 101.5 degrees Fahrenheit, and additional compatible Ebola Virus Disease symptoms Patient denies exposure to infectious person. Screenin:08 Abuse screen: Denies threats or abuse. Denies injuries from another. Nutritional screening: No deficits noted. Tuberculosis screening: No symptoms or risk factors identified. Fall Risk None identified. Assessment: 01:10 General: Appears in no apparent distress. Behavior is calm, cooperative, appropriate wh for age, Smells of alcohol. Pain: Complains of pain in left lower quadrant Pain does not radiate. Pain currently is 10 out of 10 on a pain scale. Quality of pain is described as stabbing, Pain began 4 hours ago. Neuro: Level of Consciousness is awake, alert, obeys commands, Oriented to person, place, time, situation, Appropriate for age. Cardiovascular: Heart tones S1 S2. Respiratory: Airway is patent Respiratory effort is even, unlabored, Respiratory pattern is regular, symmetrical. GI: Abdomen is flat, non-distended, Bowel sounds present X 4 quads. Abd is soft and non tender X 4 quads. : No signs and/or symptoms were reported regarding the genitourinary system. EENT: No signs and/or symptoms were reported regarding the EENT system. Derm: Skin is intact, is healthy with good turgor, Skin is pink, warm \T\ dry. normal. Musculoskeletal: Circulation, motion, and sensation intact. 02:02 Reassessment: Patient appears in no apparent distress at this time. No changes from previously documented assessment. Patient and/or family updated on plan of care and expected duration. Pain level reassessed. Patient is alert, oriented x 3, equal unlabored respirations, skin warm/dry/pink. 03:13 Reassessment: Patient appears in no apparent distress at this time. No changes from previously documented assessment. Patient and/or family updated on plan of care and expected duration. Pain level reassessed. Patient is alert, oriented x 3, equal unlabored respirations, skin warm/dry/pink. Patient denies pain at this time. Patient states feeling better. Patient states symptoms have improved. 04:33 Reassessment: Patient appears in no apparent distress at this time. No changes from previously documented assessment. Patient and/or family updated on plan of care and expected duration. Pain level reassessed. Patient is alert, oriented x 3, equal unlabored respirations, skin warm/dry/pink. Patient denies pain at this time. Patient states feeling better. Patient states symptoms have improved. Vital Signs: 01:08 BP 117 / 74; Pulse 85; Resp 18; Temp 97.7; Pulse Ox 98% on R/A; 02:03 BP 91 / 50; Pulse 74; Resp 18; Pulse Ox 98% ; 03:13 BP 100 / 60; Pulse 71; Resp 16; Pulse Ox 98% on R/A; 04:33 BP 105 / 80; Pulse 78; Resp 18; Pulse Ox 97% on R/A; ED Course: 00:59 Patient arrived in ED. ds1 01:00 Kina Valverde is Primary Nurse. 01:01 Rangel Ibarra PA is PHCP. jr8 01:01 Derrek Martines MD is Attending Physician. jr8 01:08 Triage completed. wh 01:10 Patient has correct armband on for positive identification. Bed in low position. Call light in reach. Side rails up X 1. Pulse ox on. NIBP on. 01:12 Arm band placed on right wrist. wh 01:40 Missed attempt(s): 22 gauge in right antecubital area. Bleeding controlled, band aid wh applied, catheter tip intact. 01:47 Missed attempt(s): 22 gauge Bleeding controlled, band aid applied, catheter tip intact. jd2 02:03 Inserted saline lock: 22 gauge in right hand, using aseptic technique. bb 04:32 No provider procedures requiring assistance completed. IV discontinued, intact, wh bleeding controlled, No redness/swelling at site. Administered Medications: 02:03 Drug: NS 0.9% 1000 ml Route: IV; Rate: 1000 ml; Site: right hand; bb 02:06 Follow up: Response: No adverse reaction; IV Status: Completed infusion 04:34 Follow up: Response: No adverse reaction; IV Status: Completed infusion 02:06 Drug: Zofran 4 mg Route: IVP; Site: right hand; 04:35 Follow up: Response: No adverse reaction 02:06 Drug: TORadol - Ketorolac 15 mg Route: IVP; Site: right hand; 04:35 Follow up: Response: No adverse reaction Outcome: 04:17 Discharge ordered by . pkl 04:32 Discharged to home ambulatory. 04:32 Condition: good 04:32 Discharge instructions given to patient, Instructed on discharge instructions, follow up and referral plans. POC Abdominal pain Demonstrated understanding of instructions, follow-up care, POC 04:34 Patient left the ED. Signatures: Derrek Martines MD MD pkl Marjorie Caldwell ds1 Belen Estrada RN RN bb Rangel Ibarra PA PA jr8 Lillie Conti jd2 Kina Valverde
[2019-01-16 05:18] VITALS: TEMP 97.7
[2019-01-16 05:22] VITALS: BP 105/80; O2SAT 97
== END 2019-01-16 04:34 | disposition home or self-care (01) ==
LOC: ER 00:58
DX: R10.32 Left lower quadrant pain (principal); F31.70 Bipolar disorder, currently in remission, most recent episode unspecified; Z72.0 Tobacco use; Z88.1 Allergy status to other antibiotic agents; Z88.8 Allergy status to other drugs, medicaments and biological substances
CPT/HCPCS: 36415; 80053; 85025; 96374; 96375; 99284; J2405; J7030

== ENCOUNTER 2019-04-15 01:23 | Emergency (ER) | payer SELFPAY ==
--- OUTSIDE RECORDS SUMMARY | 2019-04-15 01:26 | XMS REPORT ---
:1970 [facility] [address] [place] [address] Care Team Providers Name Role Phone UNKNOWN, [...] Facility Department ID 2017-07-02 2017-07-02 Emergency [facility] MED [id number] 08:16:00 08:16:00 Results Test Description Test Time Test Comments Text Results Atomic Results Result Comments CELIAC DISEASE PANEL 2018-09-08 08:06:00 Test Item Value Reference Range Comments SCAN RESULT (test dtub=[id number]) CELIAC DISEASE PROFILE AUTOVERIFICATION Refer to Celiac Disease Panel (QUEST) (test sdav=[id number]) results. CT, [id number] 19:42:00Only need IV contrast, not POFINAL REPORT [...] Verified Date/Time: 09/05/2018 19:42: 13 Reading Location: [facility] C013 Consult Reading Room RAD, ABDOMEN/KUB, 1 VIEW [id number] 15:30:00Reason for exam:->look for retained video capsuleAddendum BeginsREPORT STATUS:A Addendum:The video capsule is seen projected over the right iliac wing. It could be in the distal ileum versus large bowel. If in exact location isneeded. CT scan will be necessary. End of addendum. Signed: Gisele Lira MDReport Verified Date/ Time: 09/05/2018 15:30:35 Reading Location: [facility] Radiology Reading RoomAddendum EndsFINAL REPORT TECHNIQUE: Supine radiograph of the abdomen dated 09/05/2018 HISTORY: Evaluate for retained video capsule. COMPARISON: None IMPRESSION:No air-filled, dilated loops of bowel to suggest obstruction. No free intraperitoneal air. No abnormal soft tissue mass. No radiodense foreign body visualized. Bones are unremarkable. Signed: Gisele Lira MDReport Verified Date/Time: 09/05/2018 14:53:33 Reading Location: [facility] Radiology Reading Room GI PATHOGEN PROFILE BY [id number] 10:43:00 Test Item Value Reference Range Comments CAMPYLOBACTER (PCR) (test aimj=[id number]) Not detected Not detected PLESIOMONAS SHIGELLOIDES (PCR) (test Not detected Not detected yuvz=6736082) SALMONELLA (PCR) (test eznm=0583974) Not detected Not detected YERSINIA ENTEROCOLITICA (PCR) (test Not detected Not detected gvxg=5285041) VIBRIO CHOLERAE (PCR) (test unmi=2069725) Not detected Not detected ENTEROAGGREGATIVE E. COLI (EAEC) BY PCR (test Not detected Not detected ozhf=6744423) ENTEROPATHOGENIC E. COLI (EPEC) BY PCR (test Not detected Not detected gxlx=4138260) ENTEROTOXIGENIC E. COLI (ETEC) LT/ST BY PCR Not detected Not detected (test qwhm=2888425) SHIGA-LIKE TOXIN-PRODUCING E. COLI (STEC) Not detected Not detected STX1/STX2 (test yqyu=0053763) E. COLI O157 (PCR) (test lojh=8991640) Not detected SHIGELLA/ENTEROINVASIVE E. COLI (EIEC) BY PCR Not detected Not detected (test ynak=9868649) CRYPTOSPORIDIUM (PCR) (test tibr=6478965) Not detected Not detected CYCLOSPORA CAYETANENSIS (PCR) (test Not detected Not detected tuak=4201155) ENTAMOEBA HISTOLYTICA (PCR) (test ajmi=3760292) Not detected Not detected GIARDIA LAMBLIA (PCR) (test rumh=3523572) Not detected Not detected ADENOVIRUS F 40/41 (PCR) (test ufci=7335442) Not detected Not detected ASTROVIRUS (PCR) (test tepl=7205042) Not detected Not detected NOROVIRUS GI/GII (PCR) (test zmbw=8401426) Not detected Not detected ROTAVIRUS A (PCR) (test rida=3515454) Not detected Not detected SAPOVIRUS (I, II, IV, V) BY PCR (test Not detected Not detected pcho=1743149) VIBRIO (PARAHAEMOLYTICUS, VULNIFICUS) (test Not detected Not detected kbvs=3605542) Other viruses, parasites and bacteria not targeted by this PCR panel cannot be excluded; therefore clinical correlation and follow up of serology, culture results, and other molecular studies is required. The results are not intended to be used as the sole means for clinical diagnosis or patient management decisions. This sample was tested at the [facility] Molecular Diagnostics Laboratory using the [employer] Gastrointestinal Panel. It is FDA cleared and has been verified and approved by the [facility] Molecular Diagnostics Laboratory for clinical use. This laboratory is CLIA-certified and College ofAmerican Pathologists (CAP)-accredited to perform high complexity testing.BASIC METABOLIC [id number] 05:42:00 Test Item Value Reference Range Comments SODIUM (BEAKER) (test 138 meq/L 136-145 smnq=569) POTASSIUM (BEAKER) (test 4.3 meq/L 3.5-5.1 wqfo=635) CHLORIDE (BEAKER) (test 110 meq/L 98-107 zkew=122) CO2 (BEAKER) (test 23 meq/L 22-29 hieu=278) BLOOD UREA NITROGEN 8 mg/dL 7-21 (BEAKER) (test lcto=128) CREATININE (BEAKER) (test 0.66 mg/dL 0.57-1.25 yqbd=330) GLUCOSE RANDOM (BEAKER) 107 mg/dL 70-105 (test yoyo=871) CALCIUM (BEAKER) (test 9.0 mg/dL 8.4-10.2 buks=187) EGFR (BEAKER) (test 95 mL/min/1.73 sq m ESTIMATED GFR IS NOT tjjr=2531) ACCURATE CREATININE CLEARANCE IN PREDICTING GLOMERULAR FILTRATION RATE. ESTIMATED GFR IS NOT APPLICABLE FOR DIALYSIS PATIENTS. CBC (HEMOGRAM ONLY)2018-09-05 05:23:00 Test Item Value Reference Range Comments WHITE BLOOD CELL COUNT (BEAKER) (test ycnn=093) 7.3 K/ L 3.5-10.5 RED BLOOD CELL COUNT (BEAKER) (test jiai=724) 3.92 M/ L 3.93-5.22 HEMOGLOBIN (BEAKER) (test euic=643) 10.2 GM/DL 11.2-15.7 HEMATOCRIT (BEAKER) (test dgug=308) 33.0 % 34.1-44.9 MEAN CORPUSCULAR VOLUME (BEAKER) (test lbam=248) 84.2 fL 79.4-94.8 MEAN CORPUSCULAR HEMOGLOBIN (BEAKER) (test 26.0 pg 25.6-32.2 lbez=405) MEAN CORPUSCULAR HEMOGLOBIN CONC (BEAKER) (test 30.9 GM/DL 32.2-35.5 fdox=690) RED CELL DISTRIBUTION WIDTH (BEAKER) (test 18.8 % 11.7-14.4 xzqi=685) PLATELET COUNT (BEAKER) (test ifrr=926) 380 K/CU MM 150-450 MEAN PLATELET VOLUME (BEAKER) (test rixm=597) 10.3 fL 9.4-12.3 NUCLEATED RED BLOOD CELLS (BEAKER) (test 0 /100 WBC 0-0 dpcw=911) C-REACTIVE [id number] 18:59:00 Test Item Value Reference Range Comments C-REACTIVE PROTEIN (BEAKER) (test ejia=566) 0.38 mg/dL 0.00-0.50 [id number] 05:48:00 Test Item Value Reference Range Comments FERRITIN (BEAKER) (test aacw=370) 13 ng/mL 5-275 BASIC METABOLIC [id number] 05:27:00 Test Item Value Reference Range Comments SODIUM (BEAKER) (test 139 meq/L 136-145 mbeh=874) POTASSIUM (BEAKER) (test 4.0 meq/L 3.5-5.1 vchu=987) CHLORIDE (BEAKER) (test 112 meq/L 98-107 yhmt=114) CO2 (BEAKER) (test 23 meq/L 22-29 xtlk=773) BLOOD UREA NITROGEN 3 mg/dL 7-21 (BEAKER) (test ihip=440) CREATININE (BEAKER) (test 0.62 mg/dL 0.57-1.25 jxxg=839) GLUCOSE RANDOM (BEAKER) 91 mg/dL 70-105 (test tezb=838) CALCIUM (BEAKER) (test 8.4 mg/dL 8.4-10.2 vaqm=769) EGFR (BEAKER) (test 102 mL/min/1.73 sq m ESTIMATED GFR IS NOT tzqh=7688) ACCURATE CREATININE CLEARANCE IN PREDICTING GLOMERULAR FILTRATION RATE. ESTIMATED GFR IS NOT APPLICABLE FOR DIALYSIS PATIENTS. IRON, TIBC, % SAT. (WITHOUT FERRITIN)2018-09-04 05:26:00 Test Item Value Reference Range Comments IRON (BEAKER) (test ubwz=772) 15.0 ug/dL 40.0-160.0 TOTAL IRON BINDING CAPACITY (BEAKER) (test 274 ug/dL 250-450 yapl=676) IRON % SATURATION (2) (BEAKER) (test utbl=3872) 5 % 20-55 CBC (HEMOGRAM ONLY)2018-09-04 05:05:00 Test Item Value Reference Range Comments WHITE BLOOD CELL COUNT (BEAKER) (test qdyx=697) 5.9 K/ L 3.5-10.5 RED BLOOD CELL COUNT (BEAKER) (test cnyh=630) 3.67 M/ L 3.93-5.22 HEMOGLOBIN (BEAKER) (test nqrc=664) 9.8 GM/DL 11.2-15.7 HEMATOCRIT (BEAKER) (test omtp=657) 30.7 % 34.1-44.9 MEAN CORPUSCULAR VOLUME (BEAKER) (test qqbl=684) 83.7 fL 79.4-94.8 MEAN CORPUSCULAR HEMOGLOBIN (BEAKER) (test 26.7 pg 25.6-32.2 ypqh=909) MEAN CORPUSCULAR HEMOGLOBIN CONC (BEAKER) (test 31.9 GM/DL 32.2-35.5 crzj=522) RED CELL DISTRIBUTION WIDTH (BEAKER) (test 18.9 % 11.7-14.4 vuii=517) PLATELET COUNT (BEAKER) (test cpqu=419) 361 K/CU MM 150-450 MEAN PLATELET VOLUME (BEAKER) (test kogb=250) 10.3 fL 9.4-12.3 NUCLEATED RED BLOOD CELLS (BEAKER) (test 0 /100 WBC 0-0 iomu=188) RETICULOCYTE [id number] 05:05:00 Test Item Value Reference Range Comments RETICULOCYTE COUNT PCT (BEAKER) (test whtw=652) 1.1 % 0.5-1.7 SCREEN, [id number] 15:17:00 Test Item Value Reference Range Comments TEST URINE (BEAKER) (test xhtj=485) Negative BASIC METABOLIC [id number] 04:53:00 Test Item Value Reference Range Comments SODIUM (BEAKER) (test 136 meq/L 136-145 daup=242) POTASSIUM (BEAKER) (test 3.8 meq/L 3.5-5.1 ucth=159) CHLORIDE (BEAKER) (test 109 meq/L 98-107 cgnw=493) CO2 (BEAKER) (test 24 meq/L 22-29 qyqa=363) BLOOD UREA NITROGEN 5 mg/dL 7-21 (BEAKER) (test wilf=649) CREATININE (BEAKER) (test 0.60 mg/dL 0.57-1.25 upjh=311) GLUCOSE RANDOM (BEAKER) 88 mg/dL 70-105 (test yizf=354) CALCIUM (BEAKER) (test 8.3 mg/dL 8.4-10.2 xrzw=967) EGFR (BEAKER) (test 106 mL/min/1.73 sq m ESTIMATED GFR IS NOT irph=1959) ACCURATE CREATININE CLEARANCE IN PREDICTING GLOMERULAR FILTRATION RATE. ESTIMATED GFR IS NOT APPLICABLE FOR DIALYSIS PATIENTS. CBC (HEMOGRAM ONLY)2018-09-03 04:33:00 Test Item Value Reference Range Comments WHITE BLOOD CELL COUNT (BEAKER) (test lvsa=980) 5.8 K/ L 3.5-10.5 RED BLOOD CELL COUNT (BEAKER) (test tiwt=439) 3.53 M/ L 3.93-5.22 HEMOGLOBIN (BEAKER) (test fjda=696) 9.2 GM/DL 11.2-15.7 HEMATOCRIT (BEAKER) (test ntab=714) 29.7 % 34.1-44.9 MEAN CORPUSCULAR VOLUME (BEAKER) (test usgn=263) 84.1 fL 79.4-94.8 MEAN CORPUSCULAR HEMOGLOBIN (BEAKER) (test 26.1 pg 25.6-32.2 xcze=462) MEAN CORPUSCULAR HEMOGLOBIN CONC (BEAKER) (test 31.0 GM/DL 32.2-35.5 nrbo=749) RED CELL DISTRIBUTION WIDTH (BEAKER) (test 18.8 % 11.7-14.4 obaj=765) PLATELET COUNT (BEAKER) (test snrf=823) 337 K/CU MM 150-450 MEAN PLATELET VOLUME (BEAKER) (test vxzg=160) 9.7 fL 9.4-12.3 NUCLEATED RED BLOOD CELLS (BEAKER) (test 0 /100 WBC 0-0 doun=170)
[2019-04-15 01:55] LABS: Absolute Lymphocytes (CBC) 2.9 K/uL (0.7-4.9); Basophils % 0.6 % (0-1.3); Hematocrit 40.2 % (36.0-45.0); Lymphocytes % 32.5 % (15.3-44.8); MPV 8.7 fL (7.6-11.3); RBC Red Blood Cell Count 4.65 M/uL (3.86-4.86)
[2019-04-15 01:58] LABS: Protime INR 0.95
[2019-04-15 02:17] LABS: ALT/SGPT 27 U/L (12-78); AST/SGOT 25 U/L (15-37); Alkaline Phosphatase 60 U/L (45-117); BUN Blood Urea Nitrogen 6 mg/dL (7-18); Bicarbonate 24 mmol/L (21-32); Bilirubin Direct < 0.1 mg/dL (0-0.2); Bilirubin Total 0.2 mg/dL (0.2-1.0); Glucose Level 85 mg/dL (74-106); Potassium 3.9 mmol/L (3.5-5.1); Protein, Total 7.2 g/dL (6.4-8.2); Sodium Level 144 mmol/L (136-145)
[2019-04-15] MEDS ORDERED: KETOROLAC 30 MG/ML INJ ONE (02:55)
[2019-04-15] MEDS ORDERED: NA CHLORIDE 0.9% 500 ML ONE (02:55)
[2019-04-15] MEDS ORDERED: MORPHINE 2 MG/ML SYR ONE (02:55)
[2019-04-15] MEDS ORDERED: ONDANSETRON 4 MG/2 ML VIAL ONE (02:55)
[2019-04-15 04:02] LABS: Urine Blood 1+ (NEG); Urine Glucose NEGATIVE (NEG); Urine Protein NEGATIVE (NEG); Urine pH 6.5 (5.0-7.0)
[2019-04-15] MEDS ORDERED: THIAMINE 200 MG/2 ML INJ ONE (04:06)
[2019-04-15] MEDS ORDERED: DIVALPROEX DR 250 MG TAB PO ONE (04:06)
[2019-04-15] MEDS ORDERED: NA CHLORIDE 0.9% 50 ML IV ONE (04:06)
[2019-04-15 04:13] LABS: Barbiturates NEGATIVE (NEGATIVE); Benzodiazepines NEGATIVE (NEGATIVE); Cocaine NEGATIVE (NEGATIVE); METHAMPHETAM NEGATIVE (NEGATIVE); Methadone NEGATIVE (NEGATIVE); Opiates NEGATIVE (NEGATIVE); Phencyclidine NEGATIVE (NEGATIVE); THC Cannibis NEGATIVE (NEGATIVE)
[2019-04-15] MEDS ORDERED: CEFTRIAXONE/SWI 1gm 1 GM/10 ML SYR ONE (04:14)
[2019-04-15] MEDS ORDERED: SMZ./TMP. 800/160 MG TABLET ONE (04:14)
--- NOTE | 2019-04-15 05:02 | ER ---
Nurse's Notes [facility] Name: Dayami Espinosa Age: 49 yrs Sex: Female : 1970 Arrival Date: 04/15/2019 Time: 01:32 Bed 5 Private MD: Diagnosis: Headache;Bipolar disorder;Alcohol abuse;Alcohol abuse with intoxication;Urinary tract infection, site not specified Presentation: 04/15 01:30 Presenting complaint: EMS states: Headache to left side of head x 3 hours; Patient lp1 states normal to have headache every morning, but "I don't want to become addicted to Aleve"; States pain resolved after taking Aleve. Transition of care: patient was not received from another setting of care. 01:30 Method Of Arrival: EMS: [facility] lp1 01:30 Onset of symptoms was April 15, 2019. Risk Assessment: Do you want to hurt yourself lp1 or someone else? Patient reports no desire to harm self or others. Initial Sepsis Screen: Does the patient meet any 2 criteria? No. Patient's initial sepsis screen is negative. Does the patient have a suspected source of infection? No. Patient's initial sepsis screen is negative. Care prior to arrival: None. 01:30 Acuity: JAZMIN 3 lp1 Triage Assessment: 01:30 Pain: Pain began 3 hours ago. lp1 01:30 Headache History: The patient has had previous headaches and this one is similar to lp1 previous episodes. 02:11 Pain: Also complains of no other associated symptoms. 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 - Family history:: not pertinent. - Social history:: Smoking status: Patient uses tobacco products, smokes one pack cigarettes per day. - Ebola Screening: : No symptoms or risks identified at this time. Screenin:09 Abuse screen: Denies threats or abuse. Denies injuries from another. Nutritional lp1 screening: No deficits noted. Tuberculosis screening: No symptoms or risk factors identified. Fall Risk None identified. Assessment: 02:10 General: Appears in no apparent distress. Behavior is calm, cooperative, appropriate lp1 for age. Pain: Complains of pain in head Pain currently is 10 out of 10 on a pain scale. Quality of pain is described as pressure. Neuro: Level of Consciousness is awake, alert, obeys commands, Oriented to person, place, time, situation, Reports headache in left parietal area. Cardiovascular: Patient's skin is warm and dry. Respiratory: Respiratory effort is even, unlabored. GI: No signs and/or symptoms were reported involving the gastrointestinal system. : No signs and/or symptoms were reported regarding the genitourinary system. EENT: No signs and/or symptoms were reported regarding the EENT system. Derm: Skin is intact, Skin is dry, Skin is normal. Musculoskeletal: No deficits noted. 03:02 Reassessment: Patient resting, eyes closed, respirations unlabored; On reassessment, lp1 patient awaken, states headache continued at this time. 03:52 Reassessment: Assisted to bathroom; Patient given sandwich and juice per request. lp1 04:18 Reassessment: Patient appears in no apparent distress at this time. Patient resting, lp1 eyes closed, respirations unlabored. 05:11 Reassessment: Patient appears in no apparent distress at this time. Patient and/or wh family updated on plan of care and expected duration. Pain level reassessed. Patient is alert, oriented x 3, equal unlabored respirations, skin warm/dry/pink. Vital Signs: 01:30 BP 139 / 98; Pulse 85; Resp 18; Temp 97.6(O); Pulse Ox 100% on R/A; Weight 49.9 kg (R); lp1 Height 5 ft. 3 in. (160.02 cm); Pain 10/10; 02:15 BP 117 / 74; Pulse 76; Resp 18; Pulse Ox 100% on R/A; lp1 03:03 BP 128 / 84; Pulse 71; Resp 18; Pulse Ox 100% on R/A; lp1 04:18 BP 105 / 66; Pulse 78; Resp 18; Pulse Ox 100% on R/A; lp1 05:11 BP 113 / 68; Pulse 76; Resp 18; Pulse Ox 100% on R/A; wh 01:30 Body Mass Index 19.49 (49.90 kg, 160.02 cm) lp1 ED Course: 01:32 Patient arrived in ED. lp1 01:32 Darrell Mc MD is Attending Physician. [facility] 01:40 Initial lab(s) drawn, by de, sent to lab. Inserted saline lock: 22 gauge in right lp1 forearm, using aseptic technique. Blood collected. 02:05 Patrizia Vincent, BENI is Primary Nurse. lp1 02:06 Arm band placed on right wrist. lp1 02:08 Triage completed. lp1 02:10 Patient has correct armband on for positive identification. Placed in gown. Pulse ox lp1 on. NIBP on. 03:03 No provider procedures requiring assistance completed. lp1 03:59 CT Head Angio In Process Unspecified. EDMS 04:00 CT Head Brain wo Cont In Process Unspecified. EDMS 05:02 Alexander Polk MD is Referral Physician. [facility] 05:12 IV discontinued, intact, bleeding controlled, No redness/swelling at site. wh Administered Medications: 02:50 Drug: NS 0.9% 500 ml Route: IV; Rate: bolus; Site: right forearm; lp1 04:00 Follow up: IV Status: Completed infusion; IV Intake: 500ml lp1 02:50 Drug: TORadol 30 mg Route: IVP; Site: right forearm; lp1 04:00 Follow up: Response: No adverse reaction lp1 04:09 Drug: Thiamine 100 mg Route: IV; Rate: per protocol; Site: right antecubital; lp1 05:14 Follow up: Response: No adverse reaction 04:09 Drug: Depakote 500 mg Route: PO; lp1 05:04 Follow up: Response: No adverse reaction 04:17 Drug: Rocephin 1 grams Route: IV; Rate: per protocol; Site: right antecubital; lp1 05:13 Follow up: Response: No adverse reaction; IV Status: Completed infusion 04:17 Drug: Bactrim (160 mg-800 mg (DS) 1 tablet Route: PO; lp1 05:04 Follow up: Response: No adverse reaction Intake: 04:00 IV: 500ml; Total: 500ml. lp1 Outcome: 05:02 Discharge ordered by MD. devine 05:12 Discharged to home ambulatory. 05:12 Condition: stable 05:12 Discharge instructions given to patient, Instructed on discharge instructions, follow up and referral plans. medication usage, POC Demonstrated understanding of instructions, follow-up care, medications, POC Prescriptions given X 3. 05:13 Patient left the ED. Addendum: 04/18/2019 10:12 Addendum: Culture Results: Positive urine culture. No further action required. Bacteria s s sensitive to prescribed antibiotic. Signatures: Dispatcher [employer] EDMS Darrell Mc, Carola Arshad MD, cha, RN RN ss Patrizia Vincent RN RN 1 Kina Valverde
--- NOTE | 2019-04-15 05:03 | EDPHYS ---
Physician Documentation [facility] Name: Dayami Espinosa Age: 49 yrs Sex: Female : 1970 Arrival Date: 04/15/2019 Time: 01:32 Bed 5 Private MD: KHADIJAH Physician Darrell Mc HPI: 04/15 01:37 This 49 yrs old Female presents to ER via Unassigned with complaints of sybil Headache. 01:37 The patient complains of pain to the left protestant and left temporal area. The patient sybil describes the headache as pounding, a pressure, throbbing. Onset: The symptoms/episode began/occurred 1 day(s) ago. Associated signs and symptoms: The patient has no apparent associated signs or symptoms. Severity of symptoms: At its worst the pain was moderate, in the emergency department the pain is unchanged. Headache History: The patient has had previous headaches and this one is similar to previous episodes. The symptoms are alleviated by nothing. the symptoms are aggravated by nothing. The patient has experienced similar episodes in the past, multiple times. [employer]INTENANCE: 01:30 LMP 04/08/2019 lp1 Historical: - Allergies: 02:09 Amoxicillin; lp1 02:09 Pseudoephedrine; lp1 - Home Meds: 02:09 Depakote 250 mg Oral TbEC 1 tab in the morning for Bipolar Disorder in Remission lp1 [Active]; - PMHx: 02:09 Anemia; Bipolar disorder; gastritis; Ovarian cyst; lp1 - PSHx: 02:09 Brain surgery; lp1 - Immunization history:: Adult Immunizations up to date. - Family history:: not pertinent. - Social history:: Smoking status: Patient uses tobacco products, smokes one pack cigarettes per day. - Ebola Screening: : No symptoms or risks identified at this time. ROS: 01:37 Constitutional: Negative for fever, chills, and weight loss, Eyes: Negative for injury, sybil pain, redness, and discharge, ENT: Negative for injury, pain, and discharge, Neck: Negative for injury, pain, and swelling, Cardiovascular: Negative for chest pain, palpitations, and edema, Respiratory: Negative for shortness of breath, cough, wheezing, and pleuritic chest pain, Back: Negative for injury and pain, : Negative for injury, bleeding, discharge, and swelling, MS/Extremity: Negative for injury and deformity, Skin: Negative for injury, rash, and discoloration, Neuro: Negative for headache, weakness, numbness, tingling, and seizure, Psych: Negative for depression, anxiety, suicide ideation, homicidal ideation, and hallucinations, Allergy/Immunology: Negative for hives, rash, and allergies, Endocrine: Negative for neck swelling, polydipsia, polyuria, polyphagia, and marked weight changes, Hematologic/Lymphatic: Negative for swollen nodes, abnormal bleeding, and unusual bruising. 01:37 Abdomen/GI: Negative for abdominal pain, nausea, vomiting, diarrhea, and constipation. 01:37 Abdomen/GI: 01:37 Neuro: Positive for headache, of the left temporal area and left protestant. Exam: 01:37 Constitutional: This is a well developed, well nourished patient who is awake, alert, sybil and in no acute distress. Head/Face: Normocephalic, atraumatic. Eyes: Pupils equal round and reactive to light, extra-ocular motions intact. Lids and lashes normal. Conjunctiva and sclera are non-icteric and not injected. Cornea within normal limits. Periorbital areas with no swelling, redness, or edema. ENT: Nares patent. No nasal discharge, no septal abnormalities noted. Tympanic membranes are normal and external auditory canals are clear. Oropharynx with no redness, swelling, or masses, exudates, or evidence of obstruction, uvula midline. Mucous membranes moist. Neck: Trachea midline, no thyromegaly or masses palpated, and no cervical lymphadenopathy. Supple, full range of motion without nuchal rigidity, or vertebral point tenderness. No Meningismus. Chest/axilla: Normal chest wall appearance and motion. Nontender with no deformity. No lesions are appreciated. Cardiovascular: Regular rate and rhythm with a normal S1 and S2. No gallops, murmurs, or rubs. Normal PMI, no JVD. No pulse deficits. Respiratory: Lungs have equal breath sounds bilaterally, clear to auscultation and percussion. No rales, rhonchi or wheezes noted. No increased work of breathing, no retractions or nasal flaring. Abdomen/GI: Soft, non-tender, with normal bowel sounds. No distension or tympany. No guarding or rebound. No evidence of tenderness throughout. Back: No spinal tenderness. No costovertebral tenderness. Full range of motion. Pelvic Exam: Normal external genitalia. Speculum exam with closed cervical os, no discharge or bleeding noted. Bimanual exam with normal adnexa, no adnexal or cervical motion tenderness. Normal uterus. Female : Normal external genitalia. Skin: Warm, dry with normal turgor. Normal color with no rashes, no lesions, and no evidence of cellulitis. MS/ Extremity: Pulses equal, no cyanosis. Neurovascular intact. Full, normal range of motion. Neuro: Awake and alert, GCS 15, oriented to person, place, time, and situation. Cranial nerves II-XII grossly intact. Motor strength 5/5 in all extremities. Sensory grossly intact. Cerebellar exam normal. Normal gait. Psych: Awake, alert, with orientation to person, place and time. Behavior, mood, and affect are within normal limits. Vital Signs: 01:30 BP 139 / 98; Pulse 85; Resp 18; Temp 97.6(O); Pulse Ox 100% on R/A; Weight 49.9 kg (R); lp1 Height 5 ft. 3 in. (160.02 cm); Pain 10/10; 02:15 BP 117 / 74; Pulse 76; Resp 18; Pulse Ox 100% on R/A; lp1 03:03 BP 128 / 84; Pulse 71; Resp 18; Pulse Ox 100% on R/A; lp1 04:18 BP 105 / 66; Pulse 78; Resp 18; Pulse Ox 100% on R/A; lp1 05:11 BP 113 / 68; Pulse 76; Resp 18; Pulse Ox 100% on R/A; wh 01:30 Body Mass Index 19.49 (49.90 kg, 160.02 cm) lp1 MDM: 01:32 Patient medically screened. [facility] 01:40 Data reviewed: vital signs, nurses notes, lab test result(s), EKG, radiologic studies, [facility] CT scan. 04/15 01:36 Order name: Acetaminophen [facility] 04/15 01:36 Order name: Basic Metabolic Panel [facility] 04/15 01:36 Order name: CBC with Diff; Complete Time: 02:42 [facility] 04/15 01:36 Order name: ETOH Level; Complete Time: 02:42 [facility] 04/15 01:36 Order name: Hepatic Function; Complete Time: 03:27 [facility] 04/15 01:36 Order name: PT-INR; Complete Time: 02:42 [facility] 04/15 01:36 Order name: Ptt, Activated; Complete Time: 02:42 [facility] 04/15 01:36 Order name: Salicylate; Complete Time: 02:42 [facility] 04/15 01:36 Order name: Urine Drug Screen [facility] 04/15 01:36 Order name: Sed Rate; Complete Time: 02:42 [facility] 04/15 01:37 Order name: Acetaminophen Level; Complete Time: 03:27 [facility] 04/15 01:37 Order name: Basic Metabolic Panel; Complete Time: 03:27 [facility] 04/15 02:47 Order name: Valproic Acid (Depakene) Level; Complete Time: 03:27 [facility] 04/15 01:36 Order name: Urine Test (obtain specimen); Complete Time: 03:54 [facility] 04/15 01:36 Order name: EKG; Complete Time: 01:37 [facility] 04/15 01:36 Order name: EKG - Nurse/Tech; Complete Time: 03:02 [facility] 04/15 01:36 Order name: CT Head Angio [facility] 04/15 01:36 Order name: CT Head Brain wo Cont [facility] 04/15 03:59 Order name: Urine Dipstick--Ancillary (enter results); Complete Time: 04:03 [facility] 04/15 03:59 Order name: Urine --Ancillary (enter results); Complete Time: 04:03 [facility] 04/15 04:00 Order name: Urine Culture [facility] 04/15 01:36 Order name: IV Saline Lock; Complete Time: 02:12 [facility] 04/15 01:36 Order name: Labs collected and sent; Complete Time: 02:12 [facility] 04/15 01:36 Order name: Urine Dipstick-Ancillary (obtain specimen); Complete Time: 03:54 [facility] Administered Medications: 02:50 Drug: NS 0.9% 500 ml Route: IV; Rate: bolus; Site: right forearm; lp1 04:00 Follow up: IV Status: Completed infusion; IV Intake: 500ml lp1 02:50 Drug: TORadol 30 mg Route: IVP; Site: right forearm; lp1 04:00 Follow up: Response: No adverse reaction lp1 04:09 Drug: Thiamine 100 mg Route: IV; Rate: per protocol; Site: right antecubital; lp1 05:14 Follow up: Response: No adverse reaction 04:09 Drug: Depakote 500 mg Route: PO; lp1 05:04 Follow up: Response: No adverse reaction 04:17 Drug: Rocephin 1 grams Route: IV; Rate: per protocol; Site: right antecubital; lp1 05:13 Follow up: Response: No adverse reaction; IV Status: Completed infusion 04:17 Drug: Bactrim (160 mg-800 mg (DS) 1 tablet Route: PO; lp1 05:04 Follow up: Response: No adverse reaction Disposition: 04/15/19 05:02 Discharged to Home. Impression: Headache, Bipolar disorder, Alcohol abuse, Alcohol abuse with intoxication, Urinary tract infection, site not specified. - Condition is Stable. - Discharge Instructions: Alcohol Intoxication, General Headache Without Cause, Migraine Headache, Urinary Tract Infection, Adult, Alcohol Intoxication, Ucbf-nd-Tian, Urinary Tract Infection, Adult, Edll-uz-Hvox, Alcohol Abuse and Nutrition, Migraine Headache, Mgfk-mm-Orjy, General Headache Without Cause, Tvyk-yn-Hwtj. - Prescriptions for Fioricet with Codeine 50- 325-40-30 mg Oral capsule - take 1 capsule by ORAL route every 4 hours as needed not to exceed 6 capsules per 24hrs; 20 capsule. Zofran 4 mg Oral Tablet - take 1 tablet by ORAL route every 12 hours As needed; 20 tablet. Bactrim DS 800- 160 mg Oral Tablet - take 1 tablet by ORAL route every 12 hours for 7 days; 14 tablet. - Medication Reconciliation Form, Thank You Letter, Antibiotic Education, Prescription Opioid Use form. - Follow up: Private Physician; When: 2 - 3 days; Reason: Recheck today's complaints, Continuance of care, Re-evaluation by your physician. Follow up: Alexander Polk; When: 2 - 3 days; Reason: Recheck today's complaints, Continuance of care, Re-evaluation by your physician. - Problem is new. - Symptoms have improved. Signatures: Dispatcher [employer] Darrell Dia MD MD cha Pena, Laura, RN RN lp1 Kina Valverde Corrections: (The following items were deleted from the chart) 02:46 02:43 VALPROIC ACID (DEPAKOTE)+C.LAB.BRZ ordered. EDMS EDMS 05:13 05:02 04/15/2019 05:02 Discharged to Home. Impression: Headache; Bipolar disorder; wh Alcohol abuse; Alcohol abuse with intoxication; Urinary tract infection, site not specified. Condition is Stable. Discharge Instructions: General Headache Without Cause, Migraine Headache, Migraine Headache, Ffhj-tu-Qggi, General Headache Without Cause, Flim-cl-Fzyb, Alcohol Intoxication, Alcohol Intoxication, Wzcn-mz-Eory, Alcohol Abuse and Nutrition, Urinary Tract Infection, Adult, Urinary Tract Infection, Adult, Sahr-yu-Umkv. Prescriptions for Fioricet with Codeine 13-241-37-30 mg Oral capsule - take 1 capsule by ORAL route every 4 hours as needed not to exceed 6 capsules per 24hrs; 20 capsule, Zofran 4 mg Oral Tablet - take 1 tablet by ORAL route every 12 hours As needed; 20 tablet, Bactrim DS 800-160 mg Oral Tablet - take 1 tablet by ORAL route every 12 hours for 7 days; 14 tablet. and Forms are Medication Reconciliation Form, Thank You Letter, Antibiotic Education, Prescription Opioid Use. Follow up: Private Physician; When: 2 - 3 days; Reason: Recheck today's complaints, Continuance of care, Re-evaluation by your physician. Follow up: Alexander Polk; When: 2 - 3 days; Reason: Recheck today's complaints, Continuance of care, Re-evaluation by your physician. Problem is new. Symptoms have improved. sybil
[2019-04-15 05:20] VITALS: TEMP 97.6; O2SAT 100
[2019-04-15 05:25] VITALS: BP 113/68
--- NOTE | 2019-04-15 06:32 | EKG ---
Test Date: 2019-04-15 Test Time: 02:58:51 Dot Etcher Apprentice: ALLISON MEASUREMENT RESULTS: Intervals: Rate: 73 NV: 152 QRSD: 74 QT: 402 QTc: 442 [place]: P: 73 NV: 152 QRS: 79 T: 56 INTERPRETIVE STATEMENTS: Normal sinus rhythm Normal ECG Compared to ECG 11/10/2018 02:10:50 No significant changes Electronically Signed On 04-15-19 06:31:51 PSYCHIATRIC ORDERLY by Mike Brian
--- NOTE | 2019-04-16 10:44 | RAD REPORT ---
EXAM DESCRIPTION: CT head angiography with IV contrast CLINICAL HISTORY: 49-year-old female with headache. TECHNIQUE: Following dynamic intravenous nonionic contrast infusion, multiple axial helical overlapp ed CT images with multiplanar reconstructions were obtained. All CT data was transferred to a 3D [employer] rkstation for multiplanar reformation and 3D reconstruction. The CT study is performed according to A ESTEVAN (as low as reasonably achievable) or ALARA/IMAGE GENTLY, with automatic adjustment of mA and/or kV according to patient size. COMPARISON: None FINDINGS: There is optimal intracranial vascular enhancement. LEFT: INTERNAL CAROTID ARTERY: The distal internal carotid artery is unremarkable. ANTERIOR CEREBRAL ARTERY: he A1 segment is normal in caliber and contour. The A2 segment is normal i n caliber and contour. The region of the anterior communicating artery is unremarkable. MIDDLE CEREBRAL ARTERY: The M1 segment is normal in caliber and contour. The M2 branches normal in c aliber and contour. POSTERIOR CEREBRAL ARTERY: he P1 segment is normal in caliber and contour. The P2 segment is normal in caliber and contour. The left posterior communicating artery is hypoplastic. VERTEBRAL ARTERY: The intradural left vertebral artery is normal in caliber and contour. RIGHT: INTERNAL CAROTID ARTERY: The distal internal carotid artery is unremarkable. ANTERIOR CEREBRAL ARTERY: The A1 segment is normal in caliber and contour. The A2 segment is normal in caliber and contour. MIDDLE CEREBRAL ARTERY: he M1 segment is normal in caliber and contour. The M2 branches normal in ca liber and contour. POSTERIOR CEREBRAL ARTERY: The P1 segment is normal in caliber and contour. The P2 segment is normal in caliber and contour. The right posterior communicating artery is patent. VERTEBRAL ARTERY: The intradural right vertebral artery is normal in caliber and contour. BASILAR ARTERY: The basilar artery is normal in caliber and contour. DURAL VENOUS SINUSES: The dural venous sinuses are patent. NON-ANGIOGRAPHIC FINDINGS: There are no focal pathologic areas of enhancement within the brain parenchyma. The paranasal sinuses are clear. The orbital contents are unremarkable. 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 IMPRESSION: Normal intracranial CTA. There is no evidence of significant stenosis, occlusion or defi nite aneurysm. Electronically signed by: La Nena Keith DO 04/15/2019 4:32 AM CHOPPING MACHINE OPERATOR Due to temporary technical issues with the PACS/Fluency reporting system, reports are being signed by the in house radiologist as a courtesy to ensure prompt reporting. The interpreting radiologist is f ully responsible for the content of the report.
--- NOTE | 2019-04-16 10:46 | RAD REPORT ---
EXAM DESCRIPTION: Head Brain Wo Cont CLINICAL HISTORY: PAIN COMPARISON: December 05, 2018 TECHNIQUE: Contiguous axial images of the brain were obtained without the administration of intraven ous contrast. Coronal and sagittal reformats obtained and reviewed. This exam was performed accordi ng to our departmental dose-optimization program which includes use of Automated Exposure Control, ad justment of the mA and/or kV according to patient size and/or use of iterative reconstruction techniq ue. 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 No acute ischemic changes. Encephalomala mahi in the left temporal lobe from remote infarct is also noted. No hemorrhage or mass lesion. Ventricles: Within normal limits for patient's age. Bones: No acute osseous abnormality. Postsurgical changes of the right frontal bone. Paranasal sinuses: Unremarkable. Mastoid air cells: Unremarkable. Soft tissues: No acute abnormality. IMPRESSION: No acute intracranial abnormalities. Electronically signed by: Dylan Car DO 04/15/2019 4:47 AM CERTIFIED MEDICATION TECHNICIAN Due to temporary technical issues with the PACS/Fluency reporting system, reports are being signed by the in house radiologist as a courtesy to ensure prompt reporting. The interpreting radiologist is f ully responsible for the content of the report.
== END 2019-04-15 05:13 | disposition home or self-care (01) ==
LOC: ER 01:23
DX: F10.129 Alcohol abuse with intoxication, unspecified (principal); N39.0 Urinary tract infection, site not specified; F31.70 Bipolar disorder, currently in remission, most recent episode unspecified; F17.210 Nicotine dependence, cigarettes, uncomplicated; Z88.1 Allergy status to other antibiotic agents; Z88.8 Allergy status to other drugs, medicaments and biological substances
CPT/HCPCS: 36415; 70450; 70496; 80048; 80076; 80164; 80307; 80320; 80329; 81003; 81025; 85025; 85610; 85652; 85730; 87077; 87086; 87088; 87186; 93005; 99284; J0696; J2270; J2405; J3411; J7040; Q9967

== ENCOUNTER 2020-06-08 03:02 | Emergency (ER) | payer SELFPAY ==
--- OUTSIDE RECORDS SUMMARY | 2020-06-08 03:07 | XMS REPORT | Continuity of Care Document ---
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 L (test code = 761) HEMOGLOBIN (BEAKER) (test code = 9.2 GM/DL 11.2-15.7 L 410) HEMATOCRIT (BEAKER) (test code = 29.7 % 34.1-44.9 L 411) MEAN CORPUSCULAR VOLUME (BEAKER) 84.1 fL 79.4-94.8 (test code = 753) MEAN CORPUSCULAR HEMOGLOBIN 26.1 pg 25.6-32.2 (BEAKER) (test code = 751) MEAN CORPUSCULAR HEMOGLOBIN CONC 31.0 GM/DL 32.2-35.5 L (BEAKER) (test code = 752) RED CELL DISTRIBUTION WIDTH 18.8 % 11.7-14.4 H (BEAKER) (test code = 412) PLATELET COUNT (BEAKER) (test 337 K/CU MM 150-450 code = 756) MEAN PLATELET VOLUME (BEAKER) 9.7 fL 9.4-12.3 (test code = 754) NUCLEATED RED BLOOD CELLS 0 /100 WBC 0-0 (BEAKER) (test code = 413) CHEM [id number] 03:57:003.0[facility] CQBAY4995-52-16 03:57:000.3 [facility] QHPQW9495-16-57 03:57:00 Test Item Value Reference Range Interpretation Comments A/G Ratio (test code = A/G Ratio) 1.0 1 0.7-1.6 [facility] TUSRS1249-31-41 03:57:000.1[facility]annCHE[facility] PANEL 2018-04-14 03:57:000.4[facility]CHE[facility] QOTUF8158-99-75 03:57:0049[facility]CHE[facility] ITMBP8517-35-46 03:57:0024[facility]CHE[facility] VEQJE7978-16-51 03:57:006.0[facility]CHE[facility] SRLGV8468-12-56 03:57:0019[facility]annCHE[facility] AFVZY5819-22-61 03:57:003.0[facility] DmnrjmqSOBRANPIYZ7888-15-74 21:07:000.7 [facility] StsuuptGIIOGUKCBL9992-56-41 21:07:003.3[facility]annHEMATOLOGY 2018-04-13 21:07:001.7[facility] QengoghJDHQIDCMUG1632-41-68 21:07:000.6[facility] EkngvskMLALEREPDD8776-55-36 21:07:000.2[facility]annCHE[facility] TIZLY3137-61-76 21:07:55831Pdxvlyhj HermannCHEM GTTZQ3504-87-49 21:07:64338Nwonndtu HermannCHEM TFBMT5944-63-52 21:07:0023[facility]annCHE[facility] EAQOX1498-80-94 21:07:000.58 [facility]CHE[facility] BBQSO2391-97-13 21:07:66727Avlberjw HermannCHEM PANEL 2018-04-13 21:07:004.4[facility]annCHE[facility] BXBLJ3363-52-13 21:07:008.6[facility]CHE[facility] GPLCY0815-98-29 21:07:007[facility]annCHE[facility] KBOVG5624-01-93 21:07:17740Hzieuptk HermannCHEM RZDVM1062-73-32 21:07:0013.4[facility] UIYXDQYWZQ0599-53-42 21:07:002.1[facility] OelzzhiDWCKYITMBE1073-06-00 21:07:00 Test Item Value Reference Range Interpretation Comments Angle Rapid (test code = Angle 75 degrees 64-80 Rapid) [facility] UtxkhshUCWZIENSMO4750-69-69 21:07:008.6[facility]annHEMATOLOGY 2018-04-13 21:07:00 Test Item Value Reference Range Interpretation Comments Max Amplitude Rapid (test code = Max 63 mm 52-71 Amplitude Rapid) [facility]tyerlgVPMDHJTZCH3048-13-85 21:07:00 Test Item Value Reference Range Interpretation Comments R-time Rapid (test code = R-time 0.7 min 0.4-0.7 Rapid) [facility]uX[facility]UIQHNCKC0125-58-03 21:07:00 Test Item Value Reference Range Interpretation Comments K-time Rapid (test code = K-time 1.2 min 0.6-2.3 Rapid) [facility]neyOajeewgETTQOCECTZ7122-76-91 21:07:00 Test Item Value Reference Range Interpretation Comments ACT (TEG) Rapid (test code = ACT (TEG) 113 s 86-118 Rapid) [facility]KnwtogvUYLPGKWZSQ9836-92-42 21:07:00 Test Item Value Reference Range Interpretation Comments Split Point Rapid (test code = Split 0.6 min Point Rapid) [facility] MichiganQtgqfivYWGYUZGFQK5758-65-19 21:07:00 Test Item Value Reference Range Interpretation Comments PTT (test code = PTT) 30.6 s 22.9-35.8 [facility]LTWPHEHNLT4339-36-24 21:07:00 Test Item Value Reference Range Interpretation Comments INR (test code = INR) 1.03 1 0.85-1.17 [facility]BzvylbtQIFAHWESRH3087-57-73 21:07:00 Test Item Value Reference Range Interpretation Comments PT (test code = PT) 13.3 s 12.0-14.7 [facility] HospitalIviokaaEBUMLWKBJL0299-97-57 21:07:0011.1[facility]annHEMATOLOGY 2018-04-13 21:07:0033.7[facility] BtacvzkQYCPQKLBBT2098-33-85 21:07:004.04[facility] IiybfnjEUYMXHRFQQ7362-37-64 21:07:005.8[facility] NhwjpstYDWOOCEVMV5999-88-59 21:07:0017.2[facility] FgpnuowNVNAKYMSVP1941-75-94 21:07:98410Nktttjyu Sandro EJEZYNDNJM0691-77-40 21:07:0032.9[facility] XcepamfBJCWDOLYXR4220-99-24 21:07:00 83.5[facility] XqkbdevBARCBMDJXD1717-64-69 21:07:00 Test Item Value Reference Range Interpretation Comments MCH (test code = MCH) 27.5 pg 27.0-31.0 [facility] GcuysygSTXXRNXBLM4329-64-25 21:07:008.4[facility]annHEMATOLOGY 2018-04-13 21:07:0056.3[facility] JnzsrorYLEZYZETBM6608-39-08 21:07:0029.4[facility] VwemguwMPFWSLQGTX7991-51-15 21:07:009.6[facility] ShgazxxUTTPFXYTBI2025-03-65 21:07:004.0[facility]annBLOOD BANK MNNKELP9975-53-45 11:47:00Negative (01/31/18 6:47 AM)[facility]annCHEM UAMXG8604-09-04 11:41:83230Mrrykhkl HermannCHEM PKYST4716-07-73 11:41:008.3[facility]annCHEM KVUNN6798-98-96 11:41:76254Bmhvqyco HermannCHEM QRWLB2081-15-24 11:41:0027[facility]annCHE[facility] XTUOL2088-81-45 11:41:0095[facility]annCHE[facility] VGJNV5599-69-87 11:41:004.2 [facility]annCHE[facility] RCWSW2863-69-45 11:41:000.65[facility]annCHEM PANEL 2018-01-31 11:41:0011[facility]annCHEM ZKINR9604-31-14 11:41:50450Hgjizkwa HermannCHEM NHAZK1674-60-32 11:41:008.2[facility]annCHEM NQNHK6044-20-26 11:41:000.8[facility]annDRUG YESYHF5779-83-65 11:41:00See Note (01/31/18 6:41 AM)[facility]annDR[facility] JWAZQU3101-67-00 11:41:00Negative *NA*(01/31/18 6:41 AM) [facility]DR[facility] BOYWEU0844-25-86 11:41:00Negative *NA*(01/31/18 6:41 AM) [facility]DR[facility] NDZDWU7133-57-47 11:41:00Negative *NA*(01/31/18 6:41 AM) [facility]DR[facility] LROIDU3146-25-44 11:41:00Negative *NA*(01/31/18 6:41 AM) [facility]DR[facility] GBOUTE6282-31-62 11:41:00Negative *NA*(01/31/18 6:41 AM) [facility]DR[facility] ZDRVBL1434-96-68 11:41:00Negative *NA*(01/31/18 6:41 AM) [facility]annDR[facility] EGBWVX0545-69-63 11:41:00Negative *NA*(01/31/18 6:41 AM) [facility] DcfsylpFYNHOEOAJAJGK2371-16-25 11:41:00Negative *NA*(01/31/18 6:41 AM) [facility] UcsursqJAIOACCSOM1224-41-92 11:41:000.7[facility]annHEMATOLOGY 2018-01-31 11:41:002.9[facility] IxnjnebRVRZDYQHSD4524-69-87 11:41:000.2[facility] EldrithJDEOLDUELJ9021-08-53 11:41:0055.3[facility] RcjhgmvYVZQATGFSY8021-18-15 11:41:0033.5[facility] IykeuvqGMWHNWVBFI6711-49-12 11:41:008.5[facility] JWCFTRGCMD3077-81-87 11:41:000.4[facility] PytyqlkIPRCSQVHUE9368-46-04 11:41:002.3 [facility] KoweiwoJEMYHXTBJC2395-00-82 11:41:004.9[facility]annHEMATOLOGY 2018-01-31 11:41:008.8[facility] MvmfdykAVZUOTKKUY6933-12-56 11:41:00 Test Item Value Reference Range Interpretation Comments MCH (test code = MCH) 28.1 pg 27.0-31.0 [facility] DgvcofhJOXFGHFVSD2969-14-45 11:41:0032.9[facility]annHEMATOLOGY 2018-01-31 11:41:0015.9[facility] NhezkuxOUPQCBAIYS5982-60-23 11:41:004.10[facility] XiqjsdxQXXITOTJSX7985-17-92 11:41:0034.9[facility] IqtwbimNHEGOAFKSI0675-23-54 11:41:0085.2[facility] YktysypHRUDYXLXDM8727-39-56 11:41:0011.5[facility] OHRGLHGFRZ5397-02-59 11:41:70376Luvzobcf JdhddgaLLJLOQPQOV0815-80-14 11:41:007.7 [facility] WelqnrbOEDBYZKTZP0539-83-52 11:41:00 Test Item Value Reference Range Interpretation Comments ACT (TEG) Rapid (test code = ACT (TEG) 105 s 86-118 Rapid) [facility] KbyfwpqQIQXIKNRCA8520-50-99 11:41:00 Test Item Value Reference Range Interpretation Comments Angle Rapid (test code = Angle 75 degrees 64-80 Rapid) [facility] EcvdnopLKEKCOSHML4279-44-15 11:41:00 Test Item Value Reference Range Interpretation Comments K-time Rapid (test code = K-time 1.2 min 0.6-2.3 Rapid) [facility] FgnntylRJNELVOHFH1848-83-13 11:41:00 Test Item Value Reference Range Interpretation Comments R-time Rapid (test code = R-time 0.6 min 0.4-0.7 Rapid) [facility] DxsdywmYMPQVHYVOW2045-11-13 11:41:00 Test Item Value Reference Range Interpretation Comments Split Point Rapid (test code = Split 0.4 min Point Rapid) [facility] ZlebwmgSCUBZDGTUB6459-57-96 11:41:001.3[facility]annHEMATOLOGY 2018-01-31 11:41:008.2[facility] BivgxthLCVMQATEFL8073-61-64 11:41:00 Test Item Value Reference Range Interpretation Comments Max Amplitude Rapid (test code = Max 62 mm 52-71 Amplitude Rapid) [facility] EzxjmkfWQPEUVRWNU2647-46-07 11:41:00Negative *NA*(01/31/18 6:41 AM) [facility] LORZV1013-71-58 11:41:000.2[facility] HYROZ3676-21-18 11:41:00Trace *ABN*(01/31/18 6:41 AM)[facility] IDQUG7659-06-45 11:41:00Negative *NA*(01/31/18 6:41 AM)[facility] LMYGL7227-37-89 11:41:00Negative (01/31/18 6:41 AM)[facility] XDHYY6680-31-64 11:41:00 Test Item Value Reference Range Interpretation Comments UA pH (test code = UA pH) 7.0 1 5.0-8.0 [facility] NKORT2995-72-25 11:41:00Negative *NA*(01/31/18 6:41 AM)[facility] LCQXS9947-21-26 11:41:00Negative (01/31/18 6:41 AM) [facility] AJOEA2138-03-69 11:41:00Trace *ABN*(01/31/18 6:41 AM) [facility] DECLO9252-54-14 11:41:00Negative (01/31/18 6:41 AM) [facility] WNLXN9926-94-75 11:41:00 Test Item Value Reference Range Interpretation Comments UA Spec Grav (test code = UA Spec 1.010 1 Grav) [facility] XQFIG6303-23-91 11:41:00Yellow *NA*(01/31/18 6:41 AM) [facility] NWFYT5658-06-77 11:41:00Clear (01/31/18 6:41 AM) [facility]annCHEM GDDGI4467-27-02 11:15:99535Fuormfyu HermannCHEM PANEL 2017-06-28 11:15:003.5[facility]annCHEM MKWYI0765-17-90 11:15:00 Test Item Value Reference Range Interpretation Comments A/G Ratio (test code = A/G Ratio) 1.1 1 0.7-1.6 [facility]CHE[facility] FBCZA4738-59-71 11:15:00 Test Item Value Reference Range Interpretation Comments B/C Ratio (test code = B/C Ratio) 13 1 6-25 [facility]annCHE[facility] VTHJS6155-36-53 11:15:0013.6[facility]annCHEM PANEL 2017-06-28 11:15:007.2[facility]annCHEM SWLYJ2316-50-12 11:15:0056[facility]annCHEM ETHBR2804-01-68 11:15:000.2[facility]annCHEM QLBJL1414-88-01 11:15:003.6[facility]annCHEM JVPUX8097-58-49 11:15:52809Tzeprspp HermannCHEM NVSCS0459-14-93 11:15:008.9[facility]annCHEM SPENJ7479-53-56 11:15:94090 [facility]annCHE[facility] NJFAH2323-21-38 11:15:17902Zeauqgaz HermannCHEM PANEL 2017-06-28 11:15:0024[facility]annCHE[facility] TIIYR9024-91-10 11:15:0020[facility]annCHEM BEPBI1540-54-74 11:15:0024[facility]annCHEM PQPTD5417-31-62 11:15:003.7[facility]annCHEM VJOTY6286-84-54 11:15:000.63[facility]annCHEM QPCZS0157-65-69 11:15:008[facility]annCHEM PGMDO2367-16-58 11:15:43773 [facility] BqintwpFXOEFIGQGFONK4698-00-88 11:15:00Negative *NA*(06/28/17 6:15 AM) [facility] DklezwwZHYDXSXHIF2795-09-72 11:15:0015.4[facility]annHEMATOLOGY 2017-06-28 11:15:007.7[facility] VbkwzhzZKMOYEQPXZ5375-86-19 11:15:07852Dafawzni WhnfvrcITUEVTXJXJ5493-00-89 11:15:0087.1[facility] BpzizfiEHPLPTOPFZ4013-41-37 11:15:0037.9[facility] VqdtlykLQEIQETWLA6197-59-97 11:15:0033.3[facility] XZZRHTZGEW8056-89-79 11:15:00 Test Item Value Reference Range Interpretation Comments MCH (test code = MCH) 29.0 pg 27.0-31.0 [facility] XglsijkYKTTVHIEFW9818-09-72 11:15:0012.6[facility]annHEMATOLOGY 2017-06-28 11:15:004.35[facility] BucuvijXREVIFWSLU8237-30-95 11:15:0010.7[facility] VfrczmpYMLRIMTZPV9881-35-16 11:15:000.8[facility] TyswxqeYVIAXEMBYJ7350-40-46 11:15:000.2[facility] SqsfqsuUNDUNMHDRB1618-40-68 11:15:0072.1[facility] JDMNYFUXDL8335-63-12 11:15:007.7[facility] KeganlaHIJOMVPHLN2597-95-92 11:15:002.0 [facility] QjpruuqGFKKAAWIJN6381-02-91 11:15:000.4[facility]annHEMATOLOGY 2017-06-28 11:15:007.2[facility] HknyohtZBLEPGTRYP9852-08-91 11:15:001.7[facility] DcaymsrSLSQJEIDEV0025-02-62 11:15:0018.6[facility] STOOL 2017-06-28 11:15:00Colorless *NA*(06/28/17 6:15 AM)[facility] PHVXH9619-59-24 11:15:00 Test Item Value Reference Range Interpretation Comments UA Spec Grav (test code = UA Spec 1.002 1 Grav) [facility] NXHAD3093-65-64 11:15:00Clear (06/28/17 6:15 AM) [facility] MGJWU4539-23-60 11:15:00 Test Item Value Reference Range Interpretation Comments UA pH (test code = UA pH) 6.0 1 5.0-8.0 [facility] YIULE5206-48-09 11:15:00Moderate *ABN*(06/28/17 6:15 AM)[facility] CPINW3976-76-66 11:15:00Negative *NA*(06/28/17 6:15 AM)[facility] LODAB6332-00-87 11:15:00Negative (06/28/17 6:15 AM) [facility] JFTMA3992-15-72 11:15:001[facility] GHWNR1409-02-85 11:15:00Negative (06/28/17 6:15 AM)[facility] JDCUL8940-44-57 11:15:002[facility] AND QXRSG8234-75-36 11:15:001 [facility]
[2020-06-08 05:12] LABS: Urine Blood TRACE (NEG); Urine Glucose NEGATIVE (NEG); Urine Protein NEGATIVE (NEG); Urine pH 5.5 (5.0-7.0)
[2020-06-08 05:35] LABS: Absolute Lymphocytes (CBC) 2.5 K/uL (0.7-4.9); Basophils % 0.6 % (0-1.3); Hematocrit 41.6 % (36.0-45.0); Lymphocytes % 28.4 % (15.3-44.8); MPV 8.9 fL (7.6-11.3); RBC Red Blood Cell Count 4.74 M/uL (3.86-4.86)
[2020-06-08 05:59] LABS: ALT/SGPT 22 U/L (12-78); AST/SGOT 9 U/L (15-37); Albumin 3.5 g/dL (3.4-5.0); Alkaline Phosphatase 60 U/L (45-117); BUN Blood Urea Nitrogen 7 mg/dL (7-18); Bicarbonate 21 mmol/L (21-32); Bilirubin Direct 0.1 mg/dL (0-0.2); Bilirubin Total 0.4 mg/dL (0.2-1.0); Glucose Level 75 mg/dL (74-106); Lipase 104 U/L (73-393); Potassium 4.2 mmol/L (3.5-5.1); Protein, Total 7.4 g/dL (6.4-8.2); Sodium Level 139 mmol/L (136-145)
[2020-06-08] MEDS ORDERED: Levofloxacin500mg IV 0 MG/0 ML BAG IV ONE (08:00)
--- NOTE | 2020-06-08 08:04 | ER ---
Nurse's Notes [facility] Name: Dayami Espinosa Age: 50 yrs Sex: Female : 1970 Arrival Date: 06/08/2020 Time: 03:08 Bed 24 Private MD: None, None Diagnosis: Urinary tract infection, site not specified;Abdominal tenderness;Bipolar disorder Presentation: 06/08 03:12 Chief complaint: EMS states: complaining of left lower quadrant pain below her belt rr5 line. stabbing, sharp continuous no trauma noted. Coronavirus screen: Client denies travel out of the [place] in the last 14 days. At this time, the client does not indicate any symptoms associated with coronavirus-19. Ebola Screen: Patient negative for fever greater than or equal to 101.5 degrees Fahrenheit, and additional compatible Ebola Virus Disease symptoms Patient denies exposure to infectious person. Patient denies travel to an Ebola-affected area in the 21 days before illness onset. Initial Sepsis Screen: Does the patient meet any 2 criteria? No. Patient's initial sepsis screen is negative. Does the patient have a suspected source of infection? Yes: Acute abdominal pain. Risk Assessment: Do you want to hurt yourself or someone else? Patient reports no desire to harm self or others. Onset of symptoms was June 08, 2020. 03:12 Method Of Arrival: EMS: [facility] rr5 03:12 Acuity: JAZMIN 3 rr5 03:15 Note patient stated abdominal pain began months ago but now it gets worse. denies N/V/D rr5 or fever. 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 - Social history:: Smoking status: Patient reports the use of cigarette tobacco products, smokes one pack cigarettes per day. Patient/guardian denies using alcohol, street drugs. Screenin:35 Abuse screen: Denies threats or abuse. Denies injuries from another. Nutritional sf screening: No deficits noted. Tuberculosis screening: No symptoms or risk factors identified. Never had TB. Possible symptoms: None Risk factors: None. Fall Risk None identified. No fall in past 12 months (0 pts). No secondary diagnosis (0 pts). No IV (0 pts). Ambulatory Aid- None/Bed Rest/Nurse Assist (0 pts). Gait- Normal/Bed Rest/Wheelchair (0 pts) Mental Status- Oriented to own ability (0 pts). Total Alfred Fall Scale indicates No Risk (0-24 pts). Assessment: 03:35 Reassessment: Patient sleeping. General: Appears in no apparent distress. Behavior is sf drowsy. Pain: Complains of pain in left lower quadrant. Neuro: No deficits noted. Cardiovascular: No deficits noted. Respiratory: No deficits noted. GI: Abdomen is non-distended, Abdomen is tender to palpation in left lower quadrant Reports lower abdominal pain. : No signs and/or symptoms were reported regarding the genitourinary system. 04:30 Reassessment: Dr. Melchor at bedside now for assessment. 05:15 Reassessment: Patient appears in no apparent distress at this time. No changes from sf previously documented assessment. Patient and/or family updated on plan of care and expected duration. Pain level reassessed. Patient is alert, oriented x 3, equal unlabored respirations, skin warm/dry/pink. 06:44 Reassessment: Patient appears in no apparent distress at this time. No changes from sf previously documented assessment. Patient and/or family updated on plan of care and expected duration. Pain level reassessed. Patient is alert, oriented x 3, equal unlabored respirations, skin warm/dry/pink. 08:00 Reassessment: Patient appears in no apparent distress at this time. Patient is alert, ca1 oriented x 3, equal unlabored respirations, skin warm/dry/pink. Vital Signs: 03:12 BP 130 / 82; Pulse 72; Resp 19; Temp 98; Pulse Ox 97% ; Weight 49.9 kg; Height 5 ft. 3 rr5 in. (160.02 cm); Pain 10/10; 08:00 BP 123 / 69; Pulse 86; Resp 16 S; Pulse Ox 100% on R/A; ca1 03:12 Body Mass Index 19.49 (49.90 kg, 160.02 cm) rr5 ED Course: 03:08 Patient arrived in ED. sg 03:08 None, None is Private Physician. sg 03:12 Arm band placed on right wrist. rr5 03:15 Triage completed. rr5 03:18 Patient has correct armband on for positive identification. Placed in gown. Bed in low rr5 position. Call light in reach. Side rails up X2. Pulse ox on. NIBP on. 03:36 Kev Siddiqui RN is Primary Nurse. sf 03:52 Driss Melchor MD is Attending Physician. mh7 04:45 Missed attempt(s): 20 gauge in right antecubital area. sf 04:55 Missed attempt(s): 22 gauge in right antecubital area. sf 04:55 Urine collected: clean catch specimen, cloudy. sf 04:59 CT Stone Protocol Sent. sf 05:15 Initial lab(s) drawn, by ED staff, sent to lab. Missed attempt(s): 22 gauge in right sf forearm. by LEO Harrison. 05:17 Urine Dipstick--Ancillary (enter results) Sent. sf 05:17 Urine --Ancillary (enter results) Sent. sf 05:19 Basic Metabolic Panel Sent. sf 05:19 CBC with Diff Sent. sf 05:20 Hepatic Function Sent. sf 05:20 Lipase Sent. sf 07:07 Primary Nurse role handed off by Kev Siddiqui, BENI sg 07:07 Kev Mcneill, RN is Primary Nurse. sg 07:17 CT Stone Protocol In Process Unspecified. EDMS 07:18 Report given to Kev Brandon RN. sf 07:57 Attending Physician role handed off by Driss Melchor MD sybil 07:57 Darrell Mc MD is Attending Physician. sybil 08:12 No provider procedures requiring assistance completed. Patient did not have IV access ca1 during this emergency room visit. Administered Medications: 08:05 Not Given (Duplicate Order): LevaQUIN 500 mg 100 ml IVPB once over 60 mins sybil 08:11 Drug: Cipro 500 mg Route: PO; ca1 08:13 Follow up: Response: Medication administered at discharge. ca1 Outcome: 08:03 Discharge ordered by . sybil 08:12 Discharged to home ambulatory. ca1 08:12 Condition: stable 08:12 Discharge instructions given to patient, Instructed on discharge instructions, follow up and referral plans. medication usage, Demonstrated understanding of instructions, follow-up care, medications, Prescriptions given X 2. 08:13 Patient left the ED. ca1 Addendum: 06/11/2020 09:30 Addendum: Culture Results: Positive urine culture. No further action required. Bacteria a a5 sensitive to prescribed antibiotic. Signatures: Dispatcher [employer] EDMS Kev Mcneill, BENI BAZAN Darrell Mc MD MD cha Calderon, Audri, RN RN aa5 Brandin Figueroa RN RN rr5 Verito Case RN RN ca1 Driss Melchor MD MD 7 Kev Siddiqui RN RN sf Corrections: (The following items were deleted from the chart) 06/08 03:55 03:35 General: Appears in no apparent distress. sf sf 03:55 03:54 General: sf sf
--- NOTE | 2020-06-08 08:04 | EDPHYS ---
Physician Documentation [facility] Name: Dayami Espinosa Age: 50 yrs Sex: Female : 1970 Arrival Date: 06/08/2020 Time: 03:08 Bed 24 Private MD: None, None ED Physician Darrell Mc HPI: 06/08 06:23 This 50 yrs old Female presents to ER via EMS with complaints of Abdominal mh7 Pain. 06:23 The patient presents with abdominal pain in the left lower quadrant. Onset: The mh7 symptoms/episode began/occurred 2 week(s) ago. The symptoms do not radiate. Associated signs and symptoms: Pertinent negatives: nausea, vomiting, and diarrhea, nausea and vomiting, anorexia, blood in stools, chest pain, constipation, diarrhea, dysuria, fever, headache, hematuria, nausea, palpitations, shortness of breath, vaginal discharge, vomiting, vomiting blood. The symptoms are described as intermittent, vague, waxing/waning. Modifying factors: The symptoms are alleviated by nothing, the symptoms are aggravated by nothing. Severity of pain: At its worst the pain was moderate 3 day(s) ago, in the emergency department the pain has improved moderately. ENGINE MONITOR: 03:17 LMP 06/06/2020 rr5 Historical: - Allergies: 03:12 Amoxicillin; rr5 03:12 Pseudoephedrine; rr5 - Home Meds: 03:12 Depakote 250 mg Oral TbEC 1 tab in the morning for Bipolar Disorder in Remission rr5 [Active]; - PMHx: 03:12 Anemia; Bipolar disorder; gastritis; Ovarian cyst; rr5 - Immunization history:: Adult Immunizations up to date. - Social history:: Smoking status: Patient reports the use of cigarette tobacco products, smokes one pack cigarettes per day. Patient/guardian denies using alcohol, street drugs. ROS: 06:23 Constitutional: Negative for fever, chills, and weight loss, Eyes: Negative for injury, mh7 pain, redness, and discharge, ENT: Negative for injury, pain, and discharge, Neck: Negative for injury, pain, and swelling, Cardiovascular: Negative for chest pain, palpitations, and edema, Respiratory: Negative for shortness of breath, cough, wheezing, and pleuritic chest pain, Back: Negative for injury and pain, : Negative for injury, bleeding, discharge, and swelling, MS/Extremity: Negative for injury and deformity, Skin: Negative for injury, rash, and discoloration, Neuro: Negative for headache, weakness, numbness, tingling, and seizure, Psych: Negative for depression, anxiety, suicide ideation, homicidal ideation, and hallucinations, Allergy/Immunology: Negative for hives, rash, and allergies, Endocrine: Negative for neck swelling, polydipsia, polyuria, polyphagia, and marked weight changes, Hematologic/Lymphatic: Negative for swollen nodes, abnormal bleeding, and unusual bruising. Exam: 06:23 Constitutional: This is a well developed, well nourished patient who is awake, alert, mh7 and in no acute distress. Head/Face: Normocephalic, atraumatic. Eyes: Pupils equal round and reactive to light, extra-ocular motions intact. Lids and lashes normal. Conjunctiva and sclera are non-icteric and not injected. Cornea within normal limits. Periorbital areas with no swelling, redness, or edema. Neck: Trachea midline, no thyromegaly or masses palpated, and no cervical lymphadenopathy. Supple, full range of motion without nuchal rigidity, or vertebral point tenderness. No Meningismus. Chest/axilla: Normal chest wall appearance and motion. Nontender with no deformity. No lesions are appreciated. Cardiovascular: Regular rate and rhythm with a normal S1 and S2. No gallops, murmurs, or rubs. Normal PMI, no JVD. No pulse deficits. Respiratory: Lungs have equal breath sounds bilaterally, clear to auscultation and percussion. No rales, rhonchi or wheezes noted. No increased work of breathing, no retractions or nasal flaring. 06:23 Back: No spinal tenderness. No costovertebral tenderness. Full range of motion. Skin: Warm, dry with normal turgor. Normal color with no rashes, no lesions, and no evidence of cellulitis. MS/ Extremity: Pulses equal, no cyanosis. Neurovascular intact. Full, normal range of motion. Neuro: Awake and alert, GCS 15, oriented to person, place, time, and situation. Cranial nerves II-XII grossly intact. Motor strength 5/5 in all extremities. Sensory grossly intact. Cerebellar exam normal. Normal gait. Psych: Awake, alert, with orientation to person, place and time. Behavior, mood, and affect are within normal limits. 06:23 Abdomen/GI: Inspection: abdomen appears normal, Bowel sounds: normal, in all quadrants, Palpation: mild abdominal tenderness, in the left lower quadrant, mass, is not appreciated, rebound tenderness, is not appreciated, voluntary guarding, is not appreciated, involuntary guarding, is not appreciated, no appreciated organomegaly, Rectal exam: the exam is deferred, because of patient request, Indicators: McBurney's point is not tender, Douglas's sign is negative, Rovsing's sign is negative, Obturator sign is negative, Psoas sign is negative, Liver: no appreciated palpable abnormalities, Hernia: not appreciated. Vital Signs: 03:12 BP 130 / 82; Pulse 72; Resp 19; Temp 98; Pulse Ox 97% ; Weight 49.9 kg; Height 5 ft. 3 rr5 in. (160.02 cm); Pain 10/10; 08:00 BP 123 / 69; Pulse 86; Resp 16 S; Pulse Ox 100% on R/A; ca1 03:12 Body Mass Index 19.49 (49.90 kg, 160.02 cm) rr5 MDM: 07:13 Transition of care: After a detail discussion of the patient's case, care is mh7 transferred to Darrell Mc MD. 07:57 Patient medically screened. sybil 08:00 Differential diagnosis: Endometriosis, Menorrhagia, non-specific abd pain, Peptic Ulcer sybil Disease, Pyelonephritis, Ureterolithiasis, urinary tract infection. Data reviewed: vital signs, nurses notes, lab test result(s), radiologic studies, CT scan. Data interpreted: media monitor: rate is 98 beats/min, rhythm is regular, Pulse oximetry: on room air is 97 %. Test interpretation: by ED physician or midlevel provider:. Counseling: I had a detailed discussion with the patient and/or guardian regarding: the historical points, exam findings, and any diagnostic results supporting the discharge/admit diagnosis, lab results, radiology results, the need for outpatient follow up, for definitive care, a family practitioner. 06/08 04:34 Order name: Basic Metabolic Panel [facility] 06/08 04:34 Order name: CBC with Diff [facility] 06/08 04:34 Order name: Hepatic Function [facility] 06/08 04:34 Order name: Lipase [facility] 06/08 05:06 Order name: Urine --Ancillary (enter results) 3 06/08 05:06 Order name: Urine Dipstick--Ancillary (enter results) 3 06/08 04:34 Order name: CT Stone Protocol [facility] 06/08 05:12 Order name: Urine --Ancillary; Complete Time: 06:03 EDMS 06/08 05:12 Order name: Urine Dipstick-Ancillary; Complete Time: 06:03 EDMS 06/08 05:36 Order name: CBC with Automated Diff; Complete Time: 06:03 EDMS 06/08 05:59 Order name: Basic Metabolic Panel; Complete Time: 06:03 EDMS 06/08 05:59 Order name: Liver (Hepatic) Function; Complete Time: 06:03 EDMS 06/08 05:59 Order name: Lipase; Complete Time: 06:03 EDMS 06/08 07:11 Order name: Urine Culture [facility] 06/08 04:34 Order name: Labs collected and sent; Complete Time: 04:52 [facility] 06/08 04:34 Order name: Urine Dipstick-Ancillary (obtain specimen); Complete Time: 04:59 [facility] 06/08 04:34 Order name: Urine Test (obtain specimen); Complete Time: 04:59 7 Administered Medications: 08:05 Not Given (Duplicate Order): LevaQUIN 500 mg 100 ml IVPB once over 60 mins sybil 08:11 Drug: Cipro 500 mg Route: PO; ca1 08:13 Follow up: Response: Medication administered at discharge. ca1 Disposition: 06/08/20 08:03 Discharged to Home. Impression: Urinary tract infection, site not specified, Abdominal tenderness, Bipolar disorder. - Condition is Stable. - Discharge Instructions: Abdominal Pain, Adult, Dysuria, Bipolar Disorder, Urinary Tract Infection, Adult, Urinary Tract Infection, Adult, [id number], Abdominal Pain, Adult, [id number]. - Prescriptions for Cipro 250 mg Oral Tablet - take 1 tablet by ORAL route every 12 hours; 14 tablet. Bentyl 20 mg Oral Tablet - take 1 tablet by ORAL route every 6 hours As needed; 20 tablet. - Medication Reconciliation Form, Thank You Letter, Antibiotic Education, Prescription Opioid Use form. - Follow up: Private Physician; When: 2 - 3 days; Reason: Recheck today's complaints, Continuance of care, Re-evaluation by your physician. - Problem is new. - Symptoms have improved. Signatures: Dispatcher [employer] EDMS Darrell Mc MD MD cha Roque, Raymond, RN RN rr5 Verito Case RN RN ca1 Driss Melchor MD MD 7 Corrections: (The following items were deleted from the chart) 08:13 04:34 IV Saline Lock ordered. mh7 ca1 08:13 08:03 06/08/2020 08:03 Discharged to Home. Impression: Urinary tract infection, site ca1 not specified; Abdominal tenderness; Bipolar disorder. Condition is Stable. Forms are Medication Reconciliation Form, Thank You Letter, Antibiotic Education, Prescription Opioid Use. Follow up: Private Physician; When: 2 - 3 days; Reason: Recheck today's complaints, Continuance of care, Re-evaluation by your physician. Problem is new. Symptoms have improved. sybil
[2020-06-08 08:20] VITALS: TEMP 98
[2020-06-08 08:21] VITALS: BP 123/69; O2SAT 100
[2020-06-08] MEDS ORDERED: CIPROFLOXACIN HCL 500 MG TAB ONE (08:23)
--- NOTE | 2020-06-09 07:34 | RAD REPORT ---
EXAM DESCRIPTION: CT ABDOMEN AND PELVIS WITHOUT CONTRAST CLINICAL HISTORY: Abd pain;Flank pain COMPARISON: None Available. TECHNIQUE: CT of the abdomen and pelvis without IV contrast. Evaluation of the solid organs and vasc ulature is suboptimal due to lack of IV contrast. This exam was performed according to our department al dose-optimization program, which includes automated exposure control, adjustment of the mA and/or kV according to patient size and/or use of iterative reconstruction technique. FINDINGS: Lung Bases: The visualized lung bases are clear. Bones: No destructive bone lesions identified. Abdomen: Liver: The liver has normal size and density. Gallbladder: No calcified gallstones. Spleen, Pancreas, and Adrenal Glands: The spleen, pancreas, and adrenal glands are unremarkable. Kidneys: The kidneys have normal size without evidence of hydronephrosis. No obstructing ureteral richard culi. Vasculature: The aorta and IVC have normal caliber and position. Stomach: The stomach and duodenum have normal course. Other: No free intraperitoneal air. No free fluid or lymphadenopathy. Pelvis: Bladder: Urinary bladder is unremarkable. Bowel: No dilated loops of large or small bowel. Appendix: Not identified. Pelvis: Uterus is not enlarged. IMPRESSION: 1. No acute inflammatory or obstructive process identified. Electronically signed by: Patel Yin 06/08/2020 6:12 AM ERECTING ENGINEER Due to temporary technical issues with the PACS/Fluency reporting system, reports are being signed by the in house radiologists without review as a courtesy to insure prompt reporting. The interpreting radiologist is fully responsible for the content of the report.
== END 2020-06-08 08:13 | disposition home or self-care (01) ==
LOC: ER 03:02
DX: N39.0 Urinary tract infection, site not specified (principal); F31.70 Bipolar disorder, currently in remission, most recent episode unspecified; F17.210 Nicotine dependence, cigarettes, uncomplicated; Z88.1 Allergy status to other antibiotic agents; Z88.8 Allergy status to other drugs, medicaments and biological substances
CPT/HCPCS: 36415; 74176; 76377; 80048; 80076; 81003; 81025; 83690; 85025; 87077; 87086; 87088; 87186; 99284

== ENCOUNTER 2020-08-24 04:25 | Emergency (ER) | payer SELFPAY ==
--- OUTSIDE RECORDS SUMMARY | 2020-08-24 04:30 | XMS REPORT | Continuity of Care Document ---
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 Interpretation Comments Max Amplitude Rapid (test code = Max 62 mm 52-71 Amplitude Rapid) [facility] NktfdodIJMBKUUXMB5086-04-44 11:41:00Negative *NA*(01/31/18 6:41 AM) [facility] ZGVEQ2447-68-26 11:41:000.2[facility] PYHAL2910-92-81 11:41:00Trace *ABN*(01/31/18 6:41 AM)[facility] [id number] 11:41:00Negative *NA*(01/31/18 6:41 AM)[facility] [id number] 11:41:00Negative (01/31/18 6:41 AM)[facility] [id number] 11:41:00 Test Item Value Reference Range Interpretation Comments UA pH (test code = UA pH) 7.0 1 5.0-8.0 [facility] [id number] 11:41:00Negative *NA*(01/31/18 6:41 AM)[facility] [id number] 11:41:00Negative (01/31/18 6:41 AM) [facility] [id number] 11:41:00Trace *ABN*(01/31/18 6:41 AM) [facility] [id number] 11:41:00Negative (01/31/18 6:41 AM) [facility] [id number] 11:41:00 Test Item Value Reference Range Interpretation Comments UA Spec Grav (test code = UA Spec 1.010 1 Grav) [facility] [id number] 11:41:00Yellow *NA*(01/31/18 6:41 AM) [facility] [id number] 11:41:00Clear (01/31/18 6:41 AM) [facility]annCHEM [id number] 11:15:19592Qtczetgk HermannCHEM PANEL 2017-06-28 11:15:003.5[facility]annCHEM [id number] 11:15:00 Test Item Value Reference Range Interpretation Comments A/G Ratio (test code = A/G Ratio) 1.1 1 0.7-1.6 [facility]ann[facility] [id number] 11:15:00 Test Item Value Reference Range Interpretation Comments B/C Ratio (test code = B/C Ratio) 13 1 6-25 [facility]annCHE[facility] [id number] 11:15:0013.6[facility]annCHEM PANEL 2017-06-28 11:15:007.2[facility]annCHEM ZQNNV1457-01-86 11:15:0056[facility]annCHEM TNLFJ1513-39-73 11:15:000.2[facility]annCHEM DIEMX6957-98-01 11:15:003.6[facility]annCHEM LUKRJ1786-86-70 11:15:69625Koonujpj HermannCHEM TKCVA7617-32-60 11:15:008.9[facility]annCHEM DKLMJ1108-62-94 11:15:38861 [facility]annCHE[facility] KAHPE5009-95-38 11:15:56890Zqufgwga HermannCHEM PANEL 2017-06-28 11:15:0024[facility]annCHEM LQMYZ9685-44-01 11:15:0020[facility]annCHEM KYFVP3274-80-63 11:15:0024[facility]annCHEM TCNDO5208-94-95 11:15:003.7[facility]annCHEM FFZYN2712-67-87 11:15:000.63[facility]annCHEM HRBSR4380-20-40 11:15:008[facility]annCHEM RLVHH4449-85-26 11:15:41717 [facility] LmjfjviOEGVQNDMQBHEQ5358-96-29 11:15:00Negative *NA*(06/28/17 6:15 AM) [facility] HoinimaRYUPRVJUHD8859-81-81 11:15:0015.4[facility] HermannHEMATOLOGY 2017-06-28 11:15:007.7[facility] TstwqyoAKAKOEFOWL1381-46-55 11:15:60578Urlitzqb PycqvtqKXPLHBNNDV7944-33-96 11:15:0087.1[facility] YngbxbhEJAJJETYQS1798-03-70 11:15:0037.9[facility] DhhflolPOYVRWRNRK8147-00-57 11:15:0033.3[facility] HRZLREPTXF6382-66-42 11:15:00 Test Item Value Reference Range Interpretation Comments MCH (test code = MCH) 29.0 pg 27.0-31.0 [facility] YnqapcvLWVEDOIACA8759-28-78 11:15:0012.6[facility]annHEMATOLOGY 2017-06-28 11:15:004.35[facility] WexythoRIUTGAMJNH1719-57-22 11:15:0010.7[facility] ErlqobwMTVDYJUAPU1296-42-57 11:15:000.8[facility] HzhadirDCIPZKHDKM5389-26-56 11:15:000.2[facility] MrdplkxPSIPUFVTIH4217-89-80 11:15:0072.1[facility] BWWNYMMJUJ0802-09-45 11:15:007.7[facility] HklaujrJSJTYXOSMD5898-83-87 11:15:002.0 [facility] OvbdzrvOHOFPLADEU4252-94-35 11:15:000.4[facility]annHEMATOLOGY 2017-06-28 11:15:007.2[facility] FddbyptNDNRPWYEIT5401-94-84 11:15:001.7[facility] FtypepfEDSCCXINCM5657-16-05 11:15:0018.6[facility] STOOL 2017-06-28 11:15:00Colorless *NA*(06/28/17 6:15 AM)[facility] [id number] 11:15:00 Test Item Value Reference Range Interpretation Comments UA Spec Grav (test code = UA Spec 1.002 1 Grav) [facility] [id number] 11:15:00Clear (06/28/17 6:15 AM) [facility] [id number] 11:15:00 Test Item Value Reference Range Interpretation Comments UA pH (test code = UA pH) 6.0 1 5.0-8.0 [facility] [id number] 11:15:00Moderate *ABN*(06/28/17 6:15 AM)[facility] [id number] 11:15:00Negative *NA*(06/28/17 6:15 AM)[facility] [id number] 11:15:00Negative (06/28/17 6:15 AM) [facility] [id number] 11:15:001[facility] [id number] 11:15:00Negative (06/28/17 6:15 AM)[facility] AQUCW6178-04-48 11:15:002[facility] [id number] 11:15:001 [facility]
[2020-08-24 06:01] LABS: Urine Blood Trace-intact (Negative); Urine Glucose Negative (Negative); Urine Protein Negative (Negative)
[2020-08-24 06:36] LABS: Absolute Lymphocytes (CBC) 2.5 K/uL (0.7-4.9); Basophils % 0.2 % (0-1.3); Hematocrit 37.2 % (36.0-45.0); RBC Red Blood Cell Count 4.45 M/uL (3.86-4.86)
[2020-08-24 06:51] LABS: Urine Bacteria >50 /HPF (<20); Urine Mucus 1+ /HPF (NONE SEEN)
[2020-08-24 07:17] LABS: ALT/SGPT 21 U/L (12-78); AST/SGOT 19 U/L (15-37); Albumin 3.5 g/dL (3.4-5.0); Alkaline Phosphatase 52 U/L (45-117); BUN Blood Urea Nitrogen 7 mg/dL (7-18); Bicarbonate 23 mmol/L (21-32); Bilirubin Direct 0.1 mg/dL (0-0.2); Bilirubin Total 0.4 mg/dL (0.2-1.0); Glucose Level 81 mg/dL (74-106); Lipase 304 U/L (73-393); Potassium 4.1 mmol/L (3.5-5.1); Protein, Total 6.8 g/dL (6.4-8.2); Sodium Level 142 mmol/L (136-145); Troponin (Emerg Dept Use Only) < 0.02 ng/mL (0.0-0.045)
--- NOTE | 2020-08-24 08:20 | RAD REPORT ---
EXAM DESCRIPTION: CT - Abdomen Pelvis W Contrast - 08/24/2020 8:08 am CLINICAL HISTORY: Abdominal pain COMPARISON: June 2020 TECHNIQUE: Computed axial tomography of the abdomen pelvis was obtained. 100 cc Isovue-300 was admin istered intravenously. Oral contrast was not requested which limits evaluation of bowel. All CT scans are performed using dose optimization technique as appropriate and may include automated exposure control or mA/KV adjustment according to patient size. FINDINGS: The liver, spleen, pancreas, adrenal and kidneys appear unremarkable. There is no evidence of diverticulitis. Right and left ovarian cyst 2 centimeters IMPRESSION: Right and left ovarian cysts 2 centimeters. No significant free fluid
--- NOTE | 2020-08-24 08:44 | RAD REPORT ---
EXAM DESCRIPTION: [place] Single View08/24/2020 5:51 am CLINICAL HISTORY: Chest pain COMPARISON: 2018 FINDINGS: The lungs appear clear of acute infiltrate. The heart is normal size IMPRESSION: No acute abnormalities displayed
--- NOTE | 2020-08-24 09:53 | ER ---
Nurse's Notes [facility] Name: Dayami Espinosa Age: 50 yrs Sex: Female : 1970 Arrival Date: 08/24/2020 Time: 04:31 Bed 16 Private MD: Diagnosis: Cystitis, unspecified without hematuria Presentation: 08/24 04:31 Chief complaint: EMS states: Pt was walking in the rain, and called PD for a ride, PD wh called EMS as Pt was having on and off dizziness for 2 weeks, abdominal pain for 3 days and occasional chest pain. Coronavirus screen: Client denies travel out of the [place] in the last 14 days. At this time, the client does not indicate any symptoms associated with coronavirus-19. Ebola Screen: Patient negative for fever greater than or equal to 101.5 degrees Fahrenheit, and additional compatible Ebola Virus Disease symptoms Patient denies exposure to infectious person. Initial Sepsis Screen: Does the patient meet any 2 criteria? No. Patient's initial sepsis screen is negative. Does the patient have a suspected source of infection? Yes: Acute abdominal pain. Risk Assessment: Do you want to hurt yourself or someone else? Patient reports no desire to harm self or others. Onset of symptoms was August 24, 2020. 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 - Social history:: Smoking status: Patient reports the use of cigarette tobacco products, denies chronic smoking, but will smoke occasionally. Screenin:38 Abuse screen: Denies threats or abuse. Denies injuries from another. Nutritional screening: No deficits noted. Tuberculosis screening: No symptoms or risk factors identified. Fall Risk None identified. Assessment: 04:36 General: Appears in no apparent distress. Behavior is calm, cooperative. Pain: wh Complains of pain in left lower quadrant Quality of pain is described as crampy, Pain began 2-3 days ago. Neuro: Level of Consciousness is awake, alert, obeys commands, Oriented to person, place, time, situation, Reports dizziness. Cardiovascular: Heart tones S1 S2. Respiratory: Airway is patent Respiratory effort is even, unlabored, Respiratory pattern is regular, symmetrical, Breath sounds are clear bilaterally. GI: Abdomen is flat, non-distended, Bowel sounds present X 4 quads. Abd is soft and non tender X 4 quads. Reports lower abdominal pain. : No signs and/or symptoms were reported regarding the genitourinary system. EENT: No signs and/or symptoms were reported regarding the EENT system. Derm: Skin is intact, is healthy with good turgor, Skin is pink, warm \T\ dry. normal. Musculoskeletal: Circulation, motion, and sensation intact. Vital Signs: 04:31 BP 123 / 84; Pulse 66; Resp 18; Temp 97.4; Pulse Ox 100% ; Weight 54.43 kg; Height 5 wh ft. 3 in. (160.02 cm); 04:31 Body Mass Index 21.26 (54.43 kg, 160.02 cm) ED Course: 04:31 Patient arrived in ED. 04:34 Triage completed. 04:38 Patient has correct armband on for positive identification. Bed in low position. Call light in reach. Side rails up X 1. ekg monitor tech on. Pulse ox on. NIBP on. 04:38 Arm band placed on right wrist. 04:47 Driss Melchor MD is Attending Physician. [facility] 05:16 Kina Valverde, RN is Primary Nurse. 05:24 Inserted saline lock: 24 gauge in right forearm, using aseptic technique. Blood ds4 collected. 05:51 Chest Single View XRAY In Process Unspecified. EDMS 06:30 CBC with Automated Diff Sent. ds4 06:30 Basic Metabolic Panel Sent. ds4 06:31 ETOH Level Sent. ds4 06:31 Troponin (emerg Dept Use Only) Sent. ds4 08:08 CT Abd/Pelvis - IV Contrast Only In Process Unspecified. EDMS 09:25 Attending Physician role handed off by Driss Melchor MD ma2 09:25 Chloe Perry MD is Attending Physician. ma2 09:53 No provider procedures requiring assistance completed. tr6 09:59 IV discontinued, intact, bleeding controlled, No redness/swelling at site. Pressure tr6 dressing applied. Administered Medications: 07:51 Drug: Rocephin (cefTRIAXone) 1 grams Route: IV; Rate: calculated rate; Site: right tr6 forearm; 09:50 Follow up: Response: No adverse reaction tr6 07:51 Drug: NS 0.9% 1000 ml Route: IV; Rate: 1 bolus; Site: right forearm; tr6 09:50 Follow up: Response: No adverse reaction; IV Status: Completed infusion; IV Intake: tr6 1000ml Intake: 09:50 IV: 1000ml; Total: 1000ml. tr6 Outcome: 09:52 Discharge ordered by . ma2 09:53 Discharged to home ambulatory. tr6 09:53 Condition: stable 09:53 Discharge instructions given to patient, Instructed on discharge instructions, follow up and referral plans. safety practices, Demonstrated understanding of instructions, follow-up care, medications. 09:59 Prescriptions given X 3. tr6 10:43 Patient left the ED. tr6 Signatures: Dispatcher [employer] EDHunter Clinton ds4 Kina Valverde RN RN Chloe Perry MD MD ma2 Driss Melchor MD MD 7 Lauren Yang RN RN tr6 Corrections: (The following items were deleted from the chart) 04:38 04:36 Neuro: Level of Consciousness is awake, alert, obeys commands, Oriented to wh person, place, time, situation, wh
--- NOTE | 2020-08-24 09:54 | EDPHYS ---
Physician Documentation [facility] Name: Dayami Espinosa Age: 50 yrs Sex: Female : 1970 Arrival Date: 08/24/2020 Time: 04:31 Bed 16 Private MD: ED Physician Chloe Perry HPI: 08/24 06:10 This 50 yrs old Female presents to ER via EMS with complaints of Dizziness, mh7 Abdominal Pain. 06:15 The patient presents with abdominal pain in the left lower quadrant. Onset: The mh7 symptoms/episode began/occurred 3 day(s) ago. The symptoms do not radiate. 06:15 Associated signs and symptoms: Pertinent positives: chest pain, dizziness, intermittent mh7 for a few weeks, Pertinent negatives: nausea and vomiting, anorexia, blood in stools, chest pain, constipation, diarrhea, dysuria, fever, headache, hematuria, nausea, palpitations, shortness of breath, vaginal discharge, vomiting, vomiting blood. The symptoms are described as intermittent, vague, waxing/waning. Modifying factors: The symptoms are alleviated by nothing, the symptoms are aggravated by movement, touching the area. Severity of pain: At its worst the pain was moderate last night, in the emergency department the pain has improved moderately. 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 - Social history:: Smoking status: Patient reports the use of cigarette tobacco products, denies chronic smoking, but will smoke occasionally. ROS: 06:15 Constitutional: Negative for fever, chills, and weight loss, Eyes: Negative for injury, mh7 pain, redness, and discharge, ENT: Negative for injury, pain, and discharge, Neck: Negative for injury, pain, and swelling, Respiratory: Negative for shortness of breath, cough, wheezing, and pleuritic chest pain, Back: Negative for injury and pain, : Negative for injury, bleeding, discharge, and swelling, MS/Extremity: Negative for injury and deformity, Skin: Negative for injury, rash, and discoloration, Neuro: Negative for headache, weakness, numbness, tingling, and seizure, Psych: Negative for depression, anxiety, suicide ideation, homicidal ideation, and hallucinations, Allergy/Immunology: Negative for hives, rash, and allergies, Endocrine: Negative for neck swelling, polydipsia, polyuria, polyphagia, and marked weight changes, Hematologic/Lymphatic: Negative for swollen nodes, abnormal bleeding, and unusual bruising. Exam: 06:15 Constitutional: This is a well developed, well nourished patient who is awake, alert, mh7 and in no acute distress. Head/Face: Normocephalic, atraumatic. Eyes: Pupils equal round and reactive to light, extra-ocular motions intact. Lids and lashes normal. Conjunctiva and sclera are non-icteric and not injected. Cornea within normal limits. Periorbital areas with no swelling, redness, or edema. Neck: Trachea midline, no thyromegaly or masses palpated, and no cervical lymphadenopathy. Supple, full range of motion without nuchal rigidity, or vertebral point tenderness. No Meningismus. Chest/axilla: Normal chest wall appearance and motion. Nontender with no deformity. No lesions are appreciated. Cardiovascular: Regular rate and rhythm with a normal S1 and S2. No gallops, murmurs, or rubs. Normal PMI, no JVD. No pulse deficits. Respiratory: Lungs have equal breath sounds bilaterally, clear to auscultation and percussion. No rales, rhonchi or wheezes noted. No increased work of breathing, no retractions or nasal flaring. 06:15 Back: No spinal tenderness. No costovertebral tenderness. Full range of motion. Skin: Warm, dry with normal turgor. Normal color with no rashes, no lesions, and no evidence of cellulitis. MS/ Extremity: Pulses equal, no cyanosis. Neurovascular intact. Full, normal range of motion. Neuro: Awake and alert, GCS 15, oriented to person, place, time, and situation. Cranial nerves II-XII grossly intact. Motor strength 5/5 in all extremities. Sensory grossly intact. Cerebellar exam normal. Normal gait. Psych: Awake, alert, with orientation to person, place and time. Behavior, mood, and affect are within normal limits. 06:15 Abdomen/GI: Inspection: abdomen appears normal, Bowel sounds: normal, in all quadrants, Palpation: moderate abdominal tenderness, in the left lower quadrant, mass, is not appreciated, rebound tenderness, is not appreciated, voluntary guarding, is not appreciated, involuntary guarding, is not appreciated, no appreciated organomegaly, Rectal exam: the exam is deferred, because of patient request, Indicators: McBurney's point is not tender, Douglas's sign is negative, Rovsing's sign is negative, Obturator sign is negative, Psoas sign is negative, Liver: no appreciated palpable abnormalities, Hernia: not appreciated. Vital Signs: 04:31 BP 123 / 84; Pulse 66; Resp 18; Temp 97.4; Pulse Ox 100% ; Weight 54.43 kg; Height 5 wh ft. 3 in. (160.02 cm); 04:31 Body Mass Index 21.26 (54.43 kg, 160.02 cm) wh MDM: 09:51 Differential diagnosis: gastritis, gastroesophageal reflux disease, pancreatitis, ma2 urinary tract infection. Data reviewed: vital signs, nurses notes. Counseling: I had a detailed discussion with the patient and/or guardian regarding: the historical points, exam findings, and any diagnostic results supporting the discharge/admit diagnosis, the presence of at least one elevated blood pressure reading (>120/80) during this emergency department visit, the need for outpatient follow up. Response to treatment: the patient's symptoms have markedly improved after treatment. 09:52 Patient medically screened. [facility] 08/24 05:15 Order name: Basic Metabolic Panel [facility] 08/24 05:15 Order name: CBC with Diff [facility] 08/24 05:15 Order name: Hepatic Function; Complete Time: 07:30 [facility] 08/24 05:15 Order name: Lipase; Complete Time: 07:30 [facility] 08/24 05:15 Order name: Troponin (emerg Dept Use Only); Complete Time: 07:30 [facility] 08/24 05:15 Order name: ETOH Level; Complete Time: 07:04 [facility] 08/24 05:15 Order name: Basic Metabolic Panel; Complete Time: 07:30 [facility] 08/24 05:15 Order name: CBC with Automated Diff; Complete Time: 06:53 [facility] 08/24 05:16 Order name: Chest Single View XRAY; Complete Time: 09:25 [facility] 08/24 06:01 Order name: Urine Dipstick-Ancillary; Complete Time: 06:53 [facility] 08/24 06:03 Order name: Urine Microscopic Only; Complete Time: 06:53 ds4 08/24 06:52 Order name: Urine Culture [facility] 08/24 06:55 Order name: CT Abd/Pelvis - IV Contrast Only; Complete Time: 09:25 [facility] 08/24 05:15 Order name: IV Saline Lock; Complete Time: 05:38 [facility] 08/24 05:15 Order name: Labs collected and sent; Complete Time: 05:38 [facility] 08/24 05:15 Order name: Urine Dipstick-Ancillary (obtain specimen); Complete Time: 06:03 [facility] 08/24 05:15 Order name: Urine Test (obtain specimen); Complete Time: 06:03 [facility] 08/24 05:15 Order name: EKG - Nurse/Tech; Complete Time: 05:45 mh7 Administered Medications: 07:51 Drug: Rocephin (cefTRIAXone) 1 grams Route: IV; Rate: calculated rate; Site: right tr6 forearm; 09:50 Follow up: Response: No adverse reaction tr6 07:51 Drug: NS 0.9% 1000 ml Route: IV; Rate: 1 bolus; Site: right forearm; tr6 09:50 Follow up: Response: No adverse reaction; IV Status: Completed infusion; IV Intake: tr6 1000ml Disposition: 08/24/20 09:52 Discharged to Home. Impression: Cystitis, unspecified without hematuria. - Condition is Stable. - Discharge Instructions: Urinary Tract Infection, Adult. - Prescriptions for Zofran 4 mg Oral Tablet - take 1 tablet by ORAL route every 12 hours As needed; 20 tablet. Diclofenac Sodium 75 mg Oral Tablet Sustained Release - take 1 tablet by ORAL route 2 times per day; 30 tablet. Bactrim DS 800- 160 mg Oral Tablet - take 1 tablet by ORAL route every 12 hours for 10 days; 20 tablet. - Medication Reconciliation Form, Thank You Letter, Antibiotic Education, Prescription Opioid Use form. - Follow up: Private Physician; When: Tomorrow; Reason: Continuance of care. Signatures: Dispatcher MedNew [facility] Alle-KiskiKina Jarquin RN RN Chloe Perry MD MD ma2 Driss Melchor MD MD mh7 Lauren Yang, RN RN tr6 Corrections: (The following items were deleted from the chart) 10:43 09:52 08/24/2020 09:52 Discharged to Home. Impression: Cystitis, unspecified without tr6 hematuria. Condition is Stable. Prescriptions for Zofran 4 mg Oral Tablet - take 1 tablet by ORAL route every 12 hours As needed; 20 tablet, Diclofenac Sodium 75 mg Oral Tablet Sustained Release - take 1 tablet by ORAL route 2 times per day; 30 tablet, Bactrim DS 800-160 mg Oral Tablet - take 1 tablet by ORAL route every 12 hours for 10 days; 20 tablet. and Forms are Medication Reconciliation Form, Thank You Letter, Antibiotic Education, Prescription Opioid Use. Follow up: Private Physician; When: Tomorrow; Reason: Continuance of care. ma2
[2020-08-24 11:12] VITALS: BP 123/84; TEMP 97.4; O2SAT 100
== END 2020-08-24 10:43 | disposition home or self-care (01) ==
LOC: ER 04:25
DX: N30.90 Cystitis, unspecified without hematuria (principal); F31.70 Bipolar disorder, currently in remission, most recent episode unspecified; F17.210 Nicotine dependence, cigarettes, uncomplicated; Z88.1 Allergy status to other antibiotic agents; Z88.8 Allergy status to other drugs, medicaments and biological substances
CPT/HCPCS: 36415; 71045; 74177; 80048; 80076; 80320; 81003; 81015; 83690; 84484; 85025; 87077; 87086; 87088; 87186; 93005; 96361; 96374; 99284; Q9967

== ENCOUNTER 2020-09-15 00:54 | Emergency (ER) | payer SELFPAY ==
--- NOTE | 2020-09-15 03:02 | ER ---
Nurse's Notes [facility] Name: Dayami Espinosa Age: 50 yrs Sex: Female : 1970 Arrival Date: 09/15/2020 Time: 00:57 Bed 17 Private MD: Diagnosis: Sprain of unspecified ligament of right ankle Presentation: 09/15 02:01 Chief complaint: Patient states: she hurt her right ankle while running on Tuesday bb night. Coronavirus screen: At this time, the client does not indicate any symptoms associated with coronavirus-19. Ebola Screen: No symptoms or risks identified at this time. Initial Sepsis Screen: Does the patient meet any 2 criteria? No. Patient's initial sepsis screen is negative. Does the patient have a suspected source of infection? No. Patient's initial sepsis screen is negative. Risk Assessment: Do you want to hurt yourself or someone else? Patient reports no desire to harm self or others. Onset of symptoms was September 12, 2020. 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 - Social history:: Smoking status: Patient reports the use of cigarette tobacco products, smokes one pack cigarettes per day. - Family history:: not pertinent. Screenin:55 Abuse screen: Denies threats or abuse. Nutritional screening: No deficits noted. fu Tuberculosis screening: No symptoms or risk factors identified. Fall Risk None identified. Assessment: 02:02 General: Appears in no apparent distress. Behavior is calm, cooperative, appropriate fu for age, Denies fever, feeling ill, fatigue, chills. Pain: Complains of pain in right ankle Pain does not radiate. Pain currently is 10 out of 10 on a pain scale. Pain began 2-3 days ago. Is intermittent, Aggravated by movement. Neuro: Level of Consciousness is awake, alert, obeys commands, Oriented to person, place, time, situation, Moves all extremities. Gait is unsteady, due to pain. Speech is normal. Cardiovascular: Denies chest pain, nausea, vomiting. Respiratory: Respiratory effort is even, unlabored, Respiratory pattern is regular. GI: No signs and/or symptoms were reported involving the gastrointestinal system. : No signs and/or symptoms were reported regarding the genitourinary system. EENT: No signs and/or symptoms were reported regarding the EENT system. Derm: bruising and swelling to right ankle. Musculoskeletal: Swelling present in right ankle. Vital Signs: 02:01 BP 116 / 77; Pulse 74; Resp 16 S; Temp 98(O); Pulse Ox 100% on R/A; Weight 49.9 kg (R); bb Height 5 ft. 3 in. (160.02 cm) (R); Pain 10/10; 02:45 BP 104 / 71; Pulse 66; Resp 16; Pulse Ox 100% on R/A; fu 02:01 Body Mass Index 19.49 (49.90 kg, 160.02 cm) bb ED Course: 00:57 Patient arrived in ED. es 01:51 Chloe Perry MD is Attending Physician. ma2 01:52 Daron Cruz, RN is Primary Nurse. fu 02:02 Triage completed. bb 02:03 Arm band placed on Patient placed in an exam room, on a stretcher, on pulse oximetry. bb 02:51 Ankle Right 3 View XRAY In Process Unspecified. EDMS 03:00 Patient has correct armband on for positive identification. Bed in low position. Call fu light in reach. Side rails up X 1. 03:20 No provider procedures requiring assistance completed. Patient did not have IV access fu during this emergency room visit. Administered Medications: 03:22 Drug: [place] (HYDROcodone-acetaminophen) 5 mg-325 mg 1 tabs Route: PO; fu 03:23 Follow up: Response: Medication administered at discharge. fu 03:22 CANCELLED (Duplicate Order): [place] (HYDROcodone-acetaminophen) 5 mg-325 mg 2 tabs PO fu once; RASS on ADMIN: Combtv4, Very Agttd3, Agttd2, Rstlss1, AlertClm0, Drwsy-1, Lt Sdtn-2, Mod Sdtn-3, Dp Sdtn-4, UnArsble-5 Outcome: 03:01 Discharge ordered by . ma2 03:20 Discharged to home ambulatory. fu 03:20 Condition: good 03:20 Discharge instructions given to patient, Instructed on discharge instructions, follow up and referral plans. Demonstrated understanding of instructions, follow-up care, Prescriptions given X 1. 03:24 Patient left the ED. fu Signatures: Dispatcher [employer] Jessie López Brenda, RN Daron Crystal RN RN Chloe Castaneda MD MD ma2
--- NOTE | 2020-09-15 03:02 | EDPHYS ---
Physician Documentation [facility] Name: Daymai Espinosa Age: 50 yrs Sex: Female : 1970 Arrival Date: 09/15/2020 Time: 00:57 Bed 17 Private MD: ED Physician Chloe Perry HPI: 09/15 02:34 This 50 yrs old Female presents to ER via Ambulatory with complaints of Ankle ma2 Injury. 02:34 The patient presents with an injury, pain. Onset: The symptoms/episode began/occurred ma2 suddenly, 2 hour(s) ago. Associated signs and symptoms: Pertinent negatives: numbness, swelling, tingling. Severity of symptoms: At their worst the symptoms were mild, in the emergency department the symptoms are unchanged. The patient has not experienced similar symptoms in the past. was running in boot and twisted ankle inversion injury, . DIRECTOR SYSTEMS: 02:03 LMP 09/08/2020 bb Historical: - Allergies: 02:03 Amoxicillin; bb 02:03 Pseudoephedrine; bb - Immunization history:: Adult Immunizations unknown. - Social history:: Smoking status: Patient reports the use of cigarette tobacco products, smokes one pack cigarettes per day. - Family history:: not pertinent. ROS: 02:34 Constitutional: Negative for fever, chills, and weight loss. ma2 02:34 All other systems are negative. Exam: 02:34 Constitutional: This is a well developed, well nourished patient who is awake, alert, ma2 and in no acute distress. Chest/axilla: Normal chest wall appearance and motion. Nontender with no deformity. No lesions are appreciated. Cardiovascular: Regular rate and rhythm with a normal S1 and S2. No gallops, murmurs, or rubs. Normal PMI, no JVD. No pulse deficits. Respiratory: Lungs have equal breath sounds bilaterally, clear to auscultation and percussion. No rales, rhonchi or wheezes noted. No increased work of breathing, no retractions or nasal flaring. Abdomen/GI: Soft, non-tender, with normal bowel sounds. No distension or tympany. No guarding or rebound. No evidence of tenderness throughout. Skin: Warm, dry with normal turgor. Normal color with no rashes, no lesions, and no evidence of cellulitis. MS/ Extremity: Pulses equal, no cyanosis. Neurovascular intact. Full, normal range of motion. Neuro: Awake and alert, GCS 15, oriented to person, place, time, and situation. Cranial nerves II-XII grossly intact. Motor strength 5/5 in all extremities. Sensory grossly intact. Cerebellar exam normal. Normal gait. Vital Signs: 02:01 BP 116 / 77; Pulse 74; Resp 16 S; Temp 98(O); Pulse Ox 100% on R/A; Weight 49.9 kg (R); bb Height 5 ft. 3 in. (160.02 cm) (R); Pain 10/10; 02:45 BP 104 / 71; Pulse 66; Resp 16; Pulse Ox 100% on R/A; fu 02:01 Body Mass Index 19.49 (49.90 kg, 160.02 cm) bb MDM: 01:51 Patient medically screened. [facility] 02:34 Differential diagnosis: fracture, sprain, arthritis, gout. Data reviewed: vital signs, ma2 nurses notes. Counseling: I had a detailed discussion with the patient and/or guardian regarding: the historical points, exam findings, and any diagnostic results supporting the discharge/admit diagnosis, the presence of at least one elevated blood pressure reading (>120/80) during this emergency department visit, the need for outpatient follow up. Response to treatment: the patient's symptoms have markedly improved after treatment. 09/15 02:34 Order name: Ankle Right 3 View XRAY ma2 Administered Medications: 03:22 Drug: [place] (HYDROcodone-acetaminophen) 5 mg-325 mg 1 tabs Route: PO; fu 03:23 Follow up: Response: Medication administered at discharge. fu 03:22 CANCELLED (Duplicate Order): [place] (HYDROcodone-acetaminophen) 5 mg-325 mg 2 tabs PO fu once; RASS on ADMIN: Combtv4, Very Agttd3, Agttd2, Rstlss1, AlertClm0, Drwsy-1, Lt Sdtn-2, Mod Sdtn-3, Dp Sdtn-4, UnArsble-5 Disposition: 09/15/20 03:01 Discharged to Home. Impression: Sprain of unspecified ligament of right ankle. - Condition is Stable. - Discharge Instructions: Displaced Bimalleolar Ankle Fracture Treated With ORIF, Care After. - Prescriptions for Diclofenac Sodium 75 mg Oral Tablet Sustained Release - take 1 tablet by ORAL route 2 times per day; 30 tablet. - Medication Reconciliation Form, Thank You Letter, Antibiotic Education, Prescription Opioid Use form. - Follow up: Private Physician; When: Tomorrow; Reason: If symptoms return, Continuance of care. Signatures: Dispatcher [employer] Belen Sandoval RN RN bb Umadhay, Felix, RN RN fu Alzahri, Mohammad, MD MD ma2 Corrections: (The following items were deleted from the chart) 03:22 03:22 [place] (HYDROcodone-acetaminophen) 5 mg-325 mg 2 tabs PO once; RASS on ADMIN: fu Combtv4, Very Agttd3, Agttd2, Rstlss1, AlertClm0, Drwsy-1, Lt Sdtn-2, Mod Sdtn-3, Dp Sdtn-4, UnArsble-5 ordered. fu 03:24 03:01 09/15/2020 03:01 Discharged to Home. Impression: Sprain of unspecified ligament fu of right ankle. Condition is Stable. Prescriptions for Diclofenac Sodium 75 mg Oral Tablet Sustained Release - take 1 tablet by ORAL route 2 times per day; 30 tablet. and Forms are Medication Reconciliation Form, Thank You Letter, Antibiotic Education, Prescription Opioid Use. Follow up: Private Physician; When: Tomorrow; Reason: If symptoms return, Continuance of care. ma2
[2020-09-15] MEDS ORDERED: HYDROCODONE/APAP 5/325 MG TAB ONE (03:37)
[2020-09-15 03:53] VITALS: TEMP 98; O2SAT 100
[2020-09-15 03:55] VITALS: BP 104/71
--- NOTE | 2020-09-15 08:47 | RAD REPORT ---
EXAM DESCRIPTION: RAD - Ankle Right 3 View - 09/15/2020 2:51 am CLINICAL HISTORY: PAIN COMPARISON: Ankle Right 3 View dated 08/22/2018 FINDINGS: Moderate soft tissue swelling is seen along the lateral ankle. No acute fracture or disloc ation seen.
== END 2020-09-15 03:24 | disposition home or self-care (01) ==
LOC: ER 00:54
DX: S93.401A Sprain of unspecified ligament of right ankle, initial encounter (principal); X50.1XXA Overexertion from prolonged static or awkward postures, initial encounter; Y93.02 Activity, running; F17.210 Nicotine dependence, cigarettes, uncomplicated; Z88.1 Allergy status to other antibiotic agents; Z88.8 Allergy status to other drugs, medicaments and biological substances
CPT/HCPCS: 99284

== ENCOUNTER 2020-09-19 01:16 | Emergency (ER) | payer SELFPAY ==
--- OUTSIDE RECORDS SUMMARY | 2020-09-19 01:22 | XMS REPORT | Continuity of Care Document ---
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 11:15:000.2[facility] [id number] 11:15:003.6[facility] [id number] 11:15:23956Utzcqrui [facility] EZHTF2870-70-59 11:15:008.9[facility] [id number] 11:15:91930 [facility] [id number] 11:15:03815Kgizhgof [facility] PANEL 2017-06-28 11:15:0024[facility] [id number] 11:15:0020[facility] [id number] 11:15:0024[facility] [id number] 11:15:003.7[facility] [id number] 11:15:000.63[facility] [id number] 11:15:008[facility] [id number] 11:15:79407 [facility] DuhgtxxBPMEQKWNHEEBW8059-30-94 11:15:00Negative *NA*(06/28/17 6:15 AM) [facility] UatbibcJLUMXIPWOM7380-78-34 11:15:0015.4[facility]annHEMATOLOGY 2017-06-28 11:15:007.7[facility] JvwgibeVUGQQFFLJB9783-15-40 11:15:42780Ryfmumcf DibpowyIZGMKYWASZ2123-25-54 11:15:0087.1[facility] CpivbruDXMJANGBSI0862-28-59 11:15:0037.9[facility] GvqsfxdSHZRZCOBVL8728-70-19 11:15:0033.3[facility] [place] [id number] 11:15:00 Test Item Value Reference Range Interpretation Comments MCH (test code = MCH) 29.0 pg 27.0-31.0 [facility] SpepjdbMPDXFKFJYN9492-25-48 11:15:0012.6[facility]annHEMATOLOGY 2017-06-28 11:15:004.35[facility] FnigdjwVRMQWAWKMQ7013-09-01 11:15:0010.7[facility] RkotmhjUHZLULKRIJ7413-85-88 11:15:000.8[facility] PftojtrRLGYKOVZGA6743-06-30 11:15:000.2[facility] SmcftuyLVFNBNUCQG2704-55-06 11:15:0072.1[facility] [place] VOEDJHNJIY3188-00-88 11:15:007.7[facility] AkcysewRBBXXRDCFO3436-86-73 11:15:002.0 [facility] YkzazgcHUEXBXHUXW0570-52-70 11:15:000.4[facility]annHEMATOLOGY 2017-06-28 11:15:007.2[facility] XpuvvbmEFJPSOSFGF4978-50-91 11:15:001.7[facility] FtmjxecDEFQFRCIZY8536-49-22 11:15:0018.6[facility] STOOL 2017-06-28 11:15:00Colorless *NA*(06/28/17 6:15 AM)[facility] [id number] 11:15:00 Test Item Value Reference Range Interpretation Comments UA Spec Grav (test code = UA Spec 1.002 1 Grav) [facility] [id number] 11:15:00Clear (06/28/17 6:15 AM) [facility] [id number] 11:15:00 Test Item Value Reference Range Interpretation Comments UA pH (test code = UA pH) 6.0 1 5.0-8.0 [facility] [id number] 11:15:00Moderate *ABN*(06/28/17 6:15 AM)[facility] [id number] 11:15:00Negative *NA*(06/28/17 6:15 AM)[facility] [id number] 11:15:00Negative (06/28/17 6:15 AM) [facility] [id number] 11:15:001[facility] [id number] 11:15:00Negative (06/28/17 6:15 AM)[facility] [id number] 11:15:002[facility] [id number] 11:15:001 [facility]
--- NOTE | 2020-09-19 02:21 | ER ---
Nurse's Notes [facility] Name: Dayami Espinosa Age: 50 yrs Sex: Female : 1970 Arrival Date: 09/19/2020 Time: 01:17 Bed 16 Private MD: Diagnosis: Sprain of ankle Presentation: 09/19 01:18 Chief complaint: Patient states: Reports right ankle pain reported she hurt her ankle a ea week ago reports pain today is 10/10. Coronavirus screen: At this time, the client does not indicate any symptoms associated with coronavirus-19. Ebola Screen: No symptoms or risks identified at this time. Initial Sepsis Screen: Does the patient meet any 2 criteria? No. Patient's initial sepsis screen is negative. Does the patient have a suspected source of infection? No. Patient's initial sepsis screen is negative. Risk Assessment: Do you want to hurt yourself or someone else? Patient reports no desire to harm self or others. Onset of symptoms was September 19, 2020. 01:18 Acuity: JAZMIN 5 ea 01:18 Method Of Arrival: EMS: [facility] ea Historical: - Allergies: 01:22 Amoxicillin; ea 01:22 Pseudoephedrine; ea - Home Meds: 01:22 Depakote 250 mg Oral TbEC 1 tab in the morning for Bipolar Disorder in Remission ea [Active]; - PMHx: 01:22 Ovarian cyst; gastritis; Bipolar disorder; Anemia; ea - Immunization history:: Adult Immunizations up to date. - Social history:: Smoking status: Patient reports the use of cigarette tobacco products. - Family history:: not pertinent. Screenin:17 Abuse screen: Denies threats or abuse. Nutritional screening: No deficits noted. ea Tuberculosis screening: No symptoms or risk factors identified. Fall Risk No IV (0 pts). Assessment: 01:24 General: Appears in no apparent distress. Behavior is calm, cooperative, appropriate ea for age. Pain: Complains of pain in right ankle. Neuro: Level of Consciousness is awake, alert, obeys commands, Oriented to person, place, time. Cardiovascular: Patient's skin is warm and dry. Respiratory: Airway is patent Respiratory effort is even, unlabored, Respiratory pattern is regular, symmetrical. Musculoskeletal: Circulation, motion, and sensation intact. 02:41 Reassessment: Patient and/or family updated on plan of care and expected duration. Pain ea level reassessed. Patient is alert, oriented x 3, equal unlabored respirations, skin warm/dry/pink. Discharge instruction given to patient verbalized the understanding of instruciton. Vital Signs: 01:26 BP 140 / 103; Pulse 70; Resp 18; Temp 97.9; Pulse Ox 99% ; ea 02:40 BP 120 / 70; Pulse 70; Resp 18; Pulse Ox 98% on R/A; ea ED Course: 01:17 Patient arrived in ED. ea 01:20 Darrell Mc MD is Attending Physician. sybil 01:21 Triage completed. ea 01:21 Patient has correct armband on for positive identification. Bed in low position. Call ea light in reach. Side rails up X 1. 01:21 Arm band placed on right wrist. Patient placed in an exam room, on a stretcher, on ea pulse oximetry. 01:34 Jacquelin Matias, BEIN is Primary Nurse. ea 02:20 Amos Browning MD is Referral Physician. sybil 02:27 X-ray completed. Portable x-ray completed in exam room. Patient tolerated procedure mh1 well. 02:27 Ankle Right 3 View XRAY In Process Unspecified. EDAR 02:40 No provider procedures requiring assistance completed. Patient did not have IV access ea during this emergency room visit. Administered Medications: No medications were administered Outcome: 02:21 Discharge ordered by . sybil 02:40 Discharged to home ambulatory, with family. ea 02:40 Condition: stable 02:40 Discharge instructions given to patient, Instructed on discharge instructions, follow up and referral plans. Demonstrated understanding of instructions, follow-up care. 02:42 Patient left the ED. ea Signatures: Dispatcher [employer] EDAR Darrell Mc MD MD cha Harvey, Martha 1 Jacquelin Matias, RN RN ea
--- NOTE | 2020-09-19 02:21 | EDPHYS ---
Physician Documentation [facility] Name: Dayami Espinosa Age: 50 yrs Sex: Female : 1970 Arrival Date: 09/19/2020 Time: 01:17 Bed 16 Private MD: ED Physician Darrell Mc HPI: 09/19 02:08 This 50 yrs old Female presents to ER via EMS with complaints of Ankle Injury.sybil 02:08 The patient presents with decreased range of motion, pain, that is acute. The sybil complaints affect the right ankle. Onset: The symptoms/episode began/occurred 4 day(s) ago. Context: The problem was sustained at home. Associated signs and symptoms: Pertinent positives: swelling. Modifying factors: The symptoms are alleviated by elevation of extremity, the symptoms are aggravated by weight bearing, movement. Severity of symptoms: At their worst the symptoms were mild, in the emergency department the symptoms are unchanged. The patient has not experienced similar symptoms in the past. Historical: - Allergies: 01:22 Amoxicillin; ea 01:22 Pseudoephedrine; ea - Home Meds: 01:22 Depakote 250 mg Oral TbEC 1 tab in the morning for Bipolar Disorder in Remission ea [Active]; - PMHx: 01:22 Ovarian cyst; gastritis; Bipolar disorder; Anemia; ea - Immunization history:: Adult Immunizations up to date. - Social history:: Smoking status: Patient reports the use of cigarette tobacco products. - Family history:: not pertinent. ROS: 02:08 Constitutional: Negative for fever, chills, and weight loss, Eyes: Negative for injury, sybil pain, redness, and discharge, ENT: Negative for injury, pain, and discharge, Neck: Negative for injury, pain, and swelling, Cardiovascular: Negative for chest pain, palpitations, and edema, Respiratory: Negative for shortness of breath, cough, wheezing, and pleuritic chest pain, Abdomen/GI: Negative for abdominal pain, nausea, vomiting, diarrhea, and constipation, Back: Negative for injury and pain, : Negative for injury, bleeding, discharge, and swelling, Skin: Negative for injury, rash, and discoloration, Neuro: Negative for headache, weakness, numbness, tingling, and seizure, Psych: Negative for depression, anxiety, suicide ideation, homicidal ideation, and hallucinations, Allergy/Immunology: Negative for hives, rash, and allergies, Endocrine: Negative for neck swelling, polydipsia, polyuria, polyphagia, and marked weight changes, Hematologic/Lymphatic: Negative for swollen nodes, abnormal bleeding, and unusual bruising. 02:08 MS/extremity: Positive for decreased range of motion, pain, swelling, of the right ankle. Exam: 02:08 Constitutional: This is a well developed, well nourished patient who is awake, alert, sybil and in no acute distress. Head/Face: Normocephalic, atraumatic. Eyes: Pupils equal round and reactive to light, extra-ocular motions intact. Lids and lashes normal. Conjunctiva and sclera are non-icteric and not injected. Cornea within normal limits. Periorbital areas with no swelling, redness, or edema. ENT: Nares patent. No nasal discharge, no septal abnormalities noted. Tympanic membranes are normal and external auditory canals are clear. Oropharynx with no redness, swelling, or masses, exudates, or evidence of obstruction, uvula midline. Mucous membranes moist. Neck: Trachea midline, no thyromegaly or masses palpated, and no cervical lymphadenopathy. Supple, full range of motion without nuchal rigidity, or vertebral point tenderness. No Meningismus. Chest/axilla: Normal chest wall appearance and motion. Nontender with no deformity. No lesions are appreciated. Cardiovascular: Regular rate and rhythm with a normal S1 and S2. No gallops, murmurs, or rubs. Normal PMI, no JVD. No pulse deficits. Respiratory: Lungs have equal breath sounds bilaterally, clear to auscultation and percussion. No rales, rhonchi or wheezes noted. No increased work of breathing, no retractions or nasal flaring. Abdomen/GI: Soft, non-tender, with normal bowel sounds. No distension or tympany. No guarding or rebound. No evidence of tenderness throughout. Back: No spinal tenderness. No costovertebral tenderness. Full range of motion. Skin: Warm, dry with normal turgor. Normal color with no rashes, no lesions, and no evidence of cellulitis. MS/ Extremity: Pulses equal, no cyanosis. Neurovascular intact. Full, normal range of motion. Neuro: Awake and alert, GCS 15, oriented to person, place, time, and situation. Cranial nerves II-XII grossly intact. Motor strength 5/5 in all extremities. Sensory grossly intact. Cerebellar exam normal. Normal gait. Psych: Awake, alert, with orientation to person, place and time. Behavior, mood, and affect are within normal limits. 02:08 Musculoskeletal/extremity: Extremities: grossly normal except: noted in the right sybil ankle: decreased ROM, pain, swelling, tenderness, ROM: full active range of motion, full passive range of motion, limited active range of motion due to pain, limited passive range of motion due to pain, Pulses: are normal with no appreciated deficits, Sensation intact. Compartment Syndrome exam of affected extremity: is normal. Joints: All joints are normal except the right ankle displays pain at rest, painful range of motion, tenderness, Weight bearing: able to fully bear weight, without difficulty, DVT Exam: No signs of deep vein thrombosis. negative Homans' sign noted on exam, no appreciated bluish discoloration, no erythema, no increased warmth, pain, swelling, tenderness. Vital Signs: 01:26 BP 140 / 103; Pulse 70; Resp 18; Temp 97.9; Pulse Ox 99% ; ea 02:40 BP 120 / 70; Pulse 70; Resp 18; Pulse Ox 98% on R/A; ea MDM: 01:20 Patient medically screened. [facility] 02:08 Differential diagnosis: fracture, sprain, gout. Data reviewed: vital signs, nurses [facility] notes. Data interpreted: concrete floater: not applicable for this patient encounter. rate is 70 beats/min, rhythm is regular, Pulse oximetry: on room air is 99 %. Test interpretation: by ED physician or midlevel provider: plain radiologic studies. Counseling: I had a detailed discussion with the patient and/or guardian regarding: the historical points, exam findings, and any diagnostic results supporting the discharge/admit diagnosis, radiology results, the need for outpatient follow up, for definitive care, a orthopedic surgeon. 09/19 01:22 Order name: Ankle Right 3 View XRAY [facility] 09/19 02:19 Order name: Ice pack; Complete Time: 02:30 [facility] 09/19 02:19 Order name: Darryn wrap-joint; Complete Time: 02:41 [facility] Administered Medications: No medications were administered Disposition: 09/19/20 02:21 Discharged to Home. Impression: Sprain of ankle. - Condition is Stable. - Discharge Instructions: Ankle Sprain, RICE for Routine Care of Injuries, RICE for Routine Care of Injuries, Ffkd-xc-Dudx, Ankle Sprain, Cjum-if-Jxdl, Ankle Pain. - Medication Reconciliation Form, Thank You Letter, Antibiotic Education, Prescription Opioid Use form. - Follow up: Amos Browning MD; When: 2 - 3 days; Reason: Recheck today's complaints, Continuance of care, Re-evaluation by your physician. - Problem is new. - Symptoms have improved. Signatures: Dispatcher [employer] EDNH Darrell Mc MD MD cha Antunez, Elena, RN RN ea Corrections: (The following items were deleted from the chart) 02:42 02:21 09/19/2020 02:21 Discharged to Home. Impression: Sprain of ankle. Condition is ea Stable. Forms are Medication Reconciliation Form, Thank You Letter, Antibiotic Education, Prescription Opioid Use. Follow up: Dr. Amos Browning; When: 2 - 3 days; Reason: Recheck today's complaints, Continuance of care, Re-evaluation by your physician. Problem is new. Symptoms have improved. sybil
[2020-09-19 02:49] VITALS: TEMP 97.9
[2020-09-19 02:51] VITALS: BP 120/70; O2SAT 98
--- NOTE | 2020-09-19 08:47 | RAD REPORT ---
EXAM DESCRIPTION: RAD - Ankle Right 3 View - 09/19/2020 2:27 am CLINICAL HISTORY: PAIN COMPARISON: Ankle Right 3 View dated 09/15/2020 FINDINGS: Soft tissue swelling is seen along the lateral malleolus. No acute fracture or dislocation seen. Tiny plantar calcaneal spur.
== END 2020-09-19 02:42 | disposition home or self-care (01) ==
LOC: ER 01:16
DX: S93.401A Sprain of unspecified ligament of right ankle, initial encounter (principal); X58.XXXA Exposure to other specified factors, initial encounter; Y92.009 Unspecified place in unspecified non-institutional (private) residence as the place of occurrence of the external cause; F31.9 Bipolar disorder, unspecified; F17.210 Nicotine dependence, cigarettes, uncomplicated

== ENCOUNTER 2020-09-27 02:31 | Emergency (ER) | payer SELFPAY ==
--- OUTSIDE RECORDS SUMMARY | 2020-09-27 02:36 | XMS REPORT | Continuity of Care Document ---
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 11:15:0056[facility] [id number] 11:15:000.2[facility] [id number] 11:15:003.6[facility] [id number] 11:15:30021Uvhmvmga HermannCHEM SREMG5219-40-06 11:15:008.9[facility] WJGGL8420-29-19 11:15:96033 [facility] JPFIK2621-02-24 11:15:40598Gajrlxbe HermannCHEM PANEL 2017-06-28 11:15:0024[facility] [id number] 11:15:0020[facility] [id number] 11:15:0024[facility] [id number] 11:15:003.7[facility] QHCVF6563-88-15 11:15:000.63[facility] [id number] 11:15:008[facility] [id number] 11:15:33349 [facility] MparhkpPIELORBXMNYLT0122-37-96 11:15:00Negative *NA*(06/28/17 6:15 AM) [facility] XtgfocrAMNEODMWRU2683-70-14 11:15:0015.4[facility]annHEMATOLOGY 2017-06-28 11:15:007.7[facility] JnotuvxQXPBLUPGSL6862-98-94 11:15:52141Lbcydtzm EictmqaZJYYYGITNZ8797-04-86 11:15:0087.1[facility] CstmlyqQFROOQUMFU4352-01-40 11:15:0037.9[facility] SvyefcvUVXEVQZLEJ1344-73-54 11:15:0033.3[facility] CIZTDQEFGD2154-94-86 11:15:00 Test Item Value Reference Range Interpretation Comments MCH (test code = MCH) 29.0 pg 27.0-31.0 [facility] RgyeszdPSFYHGJRXE0517-65-56 11:15:0012.6[facility]annHEMATOLOGY 2017-06-28 11:15:004.35[facility] LytbqwrBMOLOAXEHO9772-23-30 11:15:0010.7[facility] LffdbdlFGSLDRQSVF9293-07-82 11:15:000.8[facility] LqclwvzNMJBKJCUFH0491-68-55 11:15:000.2[facility] FjxjmyjNHAJXSWLIC5389-83-24 11:15:0072.1[facility] ATYCRDNTVD2345-63-40 11:15:007.7[facility] QwqlfynIHSTMLSRZS6596-62-00 11:15:002.0 [facility] UzgttgeIWYPIBCMJQ3199-39-54 11:15:000.4[facility]annHEMATOLOGY 2017-06-28 11:15:007.2[facility] CzsfngySYVLZQHYUT3764-62-80 11:15:001.7[facility] OkmoxnwLPTATPXUBV7830-23-52 11:15:0018.6[facility] STOOL 2017-06-28 11:15:00Colorless *NA*(06/28/17 6:15 AM)[facility] [id number] 11:15:00 Test Item Value Reference Range Interpretation Comments UA Spec Grav (test code = UA Spec 1.002 1 Grav) [facility] [id number] 11:15:00Clear (06/28/17 6:15 AM) [facility] [id number] 11:15:00 Test Item Value Reference Range Interpretation Comments UA pH (test code = UA pH) 6.0 1 5.0-8.0 [facility] [id number] 11:15:00Moderate *ABN*(06/28/17 6:15 AM)[facility] [id number] 11:15:00Negative *NA*(06/28/17 6:15 AM)[facility] [id number] 11:15:00Negative (06/28/17 6:15 AM) [facility] [id number] 11:15:001[facility] [id number] 11:15:00Negative (06/28/17 6:15 AM)[facility] [id number] 11:15:002[facility] [id number] 11:15:001 Azalea Jo
[2020-09-27 03:54] LABS: Absolute Lymphocytes (CBC) 2.5 K/uL (0.7-4.9); Basophils % 0.6 % (0-1.3); Hematocrit 36.6 % (36.0-45.0); Lymphocytes % 24.7 % (15.3-44.8); MPV 9.2 fL (7.6-11.3); RBC Red Blood Cell Count 4.31 M/uL (3.86-4.86)
[2020-09-27] MEDS ORDERED: MORPHINE 2 MG/ML SYR ONE (04:02)
[2020-09-27] MEDS ORDERED: ONDANSETRON 4 MG/2 ML VIAL ONE (04:02)
[2020-09-27] MEDS ORDERED: NA CHLORIDE 0.9% 1,000 ML ONE (04:03)
[2020-09-27 04:05] LABS: Albumin 3.7 g/dL (3.4-5.0); Bilirubin Direct 0.1 mg/dL (0-0.2); Bilirubin Total 0.6 mg/dL (0.2-1.0); Potassium 3.6 mmol/L (3.5-5.1); Protein, Total 6.8 g/dL (6.4-8.2)
[2020-09-27 05:15] LABS: Urine Blood Trace-intact (Negative); Urine Glucose Negative (Negative); Urine Protein Negative (Negative); Urine Specific Gravity 1.015 (1.005-1.030)
[2020-09-27 05:55] LABS: Barbiturates NEGATIVE (NEGATIVE); Benzodiazepines NEGATIVE (NEGATIVE); Cocaine NEGATIVE (NEGATIVE); METHAMPHETAM NEGATIVE (NEGATIVE); Methadone NEGATIVE (NEGATIVE); Opiates NEGATIVE (NEGATIVE); Phencyclidine NEGATIVE (NEGATIVE); THC Cannibis NEGATIVE (NEGATIVE)
--- NOTE | 2020-09-27 06:49 | ER ---
Nurse's Notes [facility] Name: Dayami Espinosa Age: 50 yrs Sex: Female : 1970 Arrival Date: 09/27/2020 Time: 02:34 Bed 13 Private MD: Diagnosis: Urinary tract infection, site not specified;Constipation, unspecified Presentation: 09/27 02:52 Chief complaint: Patient states: LLQ pain for 2 days, denies N/V/D or fever. em Coronavirus screen: Client denies travel out of the [place] in the last 14 days. Ebola Screen: Patient negative for fever greater than or equal to 101.5 degrees Fahrenheit, and additional compatible Ebola Virus Disease symptoms Patient denies exposure to infectious person. Patient denies travel to an Ebola-affected area in the 21 days before illness onset. No symptoms or risks identified at this time. Initial Sepsis Screen: Does the patient meet any 2 criteria? No. Patient's initial sepsis screen is negative. Does the patient have a suspected source of infection? No. Patient's initial sepsis screen is negative. Risk Assessment: Do you want to hurt yourself or someone else? Patient reports no desire to harm self or others. Onset of symptoms was September 27, 2020. 02:52 Method Of Arrival: Ambulatory em 02:52 Acuity: JAZMIN 3 em [employer]ER: 02:54 LMP 09/20/2020 em Historical: - Allergies: 02:54 Amoxicillin; em 02:54 Pseudoephedrine; em - PMHx: 02:54 Bipolar disorder; Anemia; gastritis; Ovarian cyst; em - Immunization history:: Adult Immunizations up to date. - Social history:: Smoking status: Patient reports the use of cigarette tobacco products, smokes one-half pack cigarettes per day. Screenin:06 Abuse screen: Denies threats or abuse. Nutritional screening: No deficits noted. fu Tuberculosis screening: No symptoms or risk factors identified. Fall Risk None identified. Assessment: 03:03 General: Appears in no apparent distress. Behavior is calm, cooperative, appropriate fu for age. Pain: Complains of pain in LLQ pain Pain does not radiate. Pain currently is 10 out of 10 on a pain scale. Quality of pain is described as sharp, Pain began 2 days ago Aggravated by movement. Neuro: Level of Consciousness is awake, alert, obeys commands, Oriented to person, place, time, situation, Moves all extremities. Gait is steady, Speech is normal, Facial symmetry appears normal. Respiratory: Respiratory effort is even, unlabored, Respiratory pattern is regular. GI: Bowel sounds present X 4 quads. Abd is soft. GI: Patient currently denies nausea, vomiting. : No signs and/or symptoms were reported regarding the genitourinary system. 04:00 Reassessment: Patient and/or family updated on plan of care and expected duration. Pain fu level reassessed. Patient is alert, oriented x 3, equal unlabored respirations, skin warm/dry/pink. 05:05 Reassessment: Patient appears in no apparent distress at this time. patient asleep in fu bed. Vital Signs: 02:52 BP 127 / 93; Pulse 80; Resp 16; Temp 98.6(O); Pulse Ox 100% on R/A; Weight 48.08 kg; em Height 5 ft. 3 in. (160.02 cm); Pain 10/10; 03:00 BP 125 / 85; Pulse 77; Resp 19; Temp 97.8; Pulse Ox 100% ; Pain 6/10; fu 04:00 BP 104 / 72; Pulse 70; Resp 18; Pulse Ox 99% on R/A; fu 05:00 BP 94 / 65; Pulse 59; Resp 18; Pulse Ox 98% on R/A; Pain 2/10; fu 06:30 BP 130 / 85; Pulse 59; Resp 16; Pulse Ox 94% ; fu 02:52 Body Mass Index 18.78 (48.08 kg, 160.02 cm) em ED Course: 02:34 Patient arrived in ED. es 02:53 Triage completed. em 02:54 Arm band placed on. em 02:58 Driss Melchor MD is Attending Physician. [facility] 03:06 Patient has correct armband on for positive identification. Bed in low position. Call fu light in reach. Side rails up X 1. Pulse ox on. NIBP on. Warm blanket given. 03:25 Daron Cruz RN is Primary Nurse. fu 03:30 Inserted saline lock: 20 gauge in right antecubital area, using aseptic technique. fu Blood collected. 03:37 Basic Metabolic Panel Sent. fu 03:37 CBC with Diff Sent. fu 05:16 UDS Sent. fu 05:41 CT Abd/Pelvis - IV Contrast Only In Process Unspecified. EDMS 07:00 IV discontinued, bleeding controlled, Pressure dressing applied. fu 07:04 No provider procedures requiring assistance completed. fu Administered Medications: 03:44 Drug: NS 0.9% 1000 ml Route: IV; Rate: 1000 ml; Site: right antecubital; fu 05:05 Follow up: Response: No adverse reaction; IV Intake: 1000ml fu 04:04 Drug: Zofran (Ondansetron) 4 mg Route: IVP; Infused Over: 2 mins; Site: right fu antecubital; 05:02 Follow up: Response: No adverse reaction fu 04:05 Drug: morphine 2 mg Route: IVP; Site: right antecubital; fu 05:02 Follow up: Response: Pain is decreased fu 06:55 Drug: Cipro (ciprofloxacin) 500 mg Route: PO; fu 07:05 Follow up: Response: Medication administered at discharge. fu Intake: 05:05 IV: 1000ml; Total: 1000ml. fu Outcome: 06:49 Discharge ordered by MD. bonds 07:03 Discharged to home ambulatory. fu 07:03 Condition: stable 07:03 Discharge instructions given to patient, Instructed on discharge instructions, follow up and referral plans. Demonstrated understanding of instructions, follow-up care, Prescriptions given X 3. 07:06 Patient left the ED. fu Signatures: Dispatcher [employer] Jessie López Edgar, RN RN Daron Petersen RN RN fu Holmes, Maurice, MD MD mh7
--- NOTE | 2020-09-27 06:49 | EDPHYS ---
Physician Documentation [facility] Name: Dayami Espinosa Age: 50 yrs Sex: Female : 1970 Arrival Date: 09/27/2020 Time: 02:34 Bed 13 Private MD: ED Physician Driss Melchor HPI: 09/27 03:39 This 50 yrs old Female presents to ER via Ambulatory with complaints of mh7 Abdominal Pain. 03:39 The patient presents with abdominal pain in the left lower quadrant. mh7 03:39 Onset: The symptoms/episode began/occurred 2 day(s) ago. The symptoms do not radiate. mh7 Associated signs and symptoms: Pertinent negatives: nausea, vomiting, and diarrhea, nausea and vomiting, anorexia, blood in stools, chest pain, constipation, diarrhea, dysuria, fever, headache, hematuria, nausea, palpitations, shortness of breath, vaginal discharge, vomiting, vomiting blood. The symptoms are described as intermittent, vague, waxing/waning. Modifying factors: The symptoms are alleviated by nothing, the symptoms are aggravated by nothing. Severity of pain: At its worst the pain was moderate 2 day(s) ago, in the emergency department the pain is unchanged. 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 - Social history:: Smoking status: Patient reports the use of cigarette tobacco products, smokes one-half pack cigarettes per day. ROS: 03:39 Constitutional: Negative for fever, chills, and weight loss, Eyes: Negative for injury, mh7 pain, redness, and discharge, ENT: Negative for injury, pain, and discharge, Neck: Negative for injury, pain, and swelling, Cardiovascular: Negative for chest pain, palpitations, and edema, Respiratory: Negative for shortness of breath, cough, wheezing, and pleuritic chest pain, Back: Negative for injury and pain, : Negative for injury, bleeding, discharge, and swelling, MS/Extremity: Negative for injury and deformity, Skin: Negative for injury, rash, and discoloration, Neuro: Negative for headache, weakness, numbness, tingling, and seizure, Psych: Negative for depression, anxiety, suicide ideation, homicidal ideation, and hallucinations, Allergy/Immunology: Negative for hives, rash, and allergies, Endocrine: Negative for neck swelling, polydipsia, polyuria, polyphagia, and marked weight changes, Hematologic/Lymphatic: Negative for swollen nodes, abnormal bleeding, and unusual bruising. Exam: 03:39 Constitutional: This is a well developed, well nourished patient who is awake, alert, mh7 and in no acute distress. Head/Face: Normocephalic, atraumatic. Eyes: Pupils equal round and reactive to light, extra-ocular motions intact. Lids and lashes normal. Conjunctiva and sclera are non-icteric and not injected. Cornea within normal limits. Periorbital areas with no swelling, redness, or edema. Neck: Trachea midline, no thyromegaly or masses palpated, and no cervical lymphadenopathy. Supple, full range of motion without nuchal rigidity, or vertebral point tenderness. No Meningismus. Chest/axilla: Normal chest wall appearance and motion. Nontender with no deformity. No lesions are appreciated. Cardiovascular: Regular rate and rhythm with a normal S1 and S2. No gallops, murmurs, or rubs. Normal PMI, no JVD. No pulse deficits. Respiratory: Lungs have equal breath sounds bilaterally, clear to auscultation and percussion. No rales, rhonchi or wheezes noted. No increased work of breathing, no retractions or nasal flaring. 03:39 Back: No spinal tenderness. No costovertebral tenderness. Full range of motion. Skin: Warm, dry with normal turgor. Normal color with no rashes, no lesions, and no evidence of cellulitis. MS/ Extremity: Pulses equal, no cyanosis. Neurovascular intact. Full, normal range of motion. Neuro: Awake and alert, GCS 15, oriented to person, place, time, and situation. Cranial nerves II-XII grossly intact. Motor strength 5/5 in all extremities. Sensory grossly intact. Cerebellar exam normal. Normal gait. Psych: Awake, alert, with orientation to person, place and time. Behavior, mood, and affect are within normal limits. 03:39 Abdomen/GI: Inspection: abdomen appears normal, Bowel sounds: normal, in all quadrants, Palpation: moderate abdominal tenderness, in the left lower quadrant, mass, is not appreciated, rebound tenderness, is not appreciated, voluntary guarding, is not appreciated, involuntary guarding, is not appreciated, no appreciated organomegaly, Rectal exam: the exam is deferred, because of patient request, Indicators: McBurney's point is not tender, Douglas's sign is negative, Rovsing's sign is negative, Obturator sign is negative, Psoas sign is negative, Liver: no appreciated palpable abnormalities, Hernia: not appreciated. Vital Signs: 02:52 BP 127 / 93; Pulse 80; Resp 16; Temp 98.6(O); Pulse Ox 100% on R/A; Weight 48.08 kg; em Height 5 ft. 3 in. (160.02 cm); Pain 10/10; 03:00 BP 125 / 85; Pulse 77; Resp 19; Temp 97.8; Pulse Ox 100% ; Pain 6/10; fu 04:00 BP 104 / 72; Pulse 70; Resp 18; Pulse Ox 99% on R/A; fu 05:00 BP 94 / 65; Pulse 59; Resp 18; Pulse Ox 98% on R/A; Pain 2/10; fu 06:30 BP 130 / 85; Pulse 59; Resp 16; Pulse Ox 94% ; fu 02:52 Body Mass Index 18.78 (48.08 kg, 160.02 cm) em MDM: 06:48 Differential diagnosis: bowel obstruction, diverticulitis, non-specific abd pain, 7 Pyelonephritis, Ureterolithiasis, urinary tract infection. Data reviewed: vital signs, nurses notes, lab test result(s), CBC, electrolytes, urinalysis, radiologic studies, CT scan. Counseling: I had a detailed discussion with the patient and/or guardian regarding: the historical points, exam findings, and any diagnostic results supporting the discharge/admit diagnosis, lab results, radiology results, the need for outpatient follow up, to return to the emergency department if symptoms worsen or persist or if there are any questions or concerns that arise at home. Response to treatment: the patient's symptoms have markedly improved after treatment. 06:49 Patient medically screened. [facility] 09/27 03:22 Order name: Basic Metabolic Panel [facility] 09/27 03:22 Order name: CBC with Diff [facility] 09/27 03:22 Order name: Hepatic Function; Complete Time: 05:01 [facility] 09/27 03:22 Order name: Lipase; Complete Time: 05:01 [facility] 09/27 03:22 Order name: UDS; Complete Time: 06:44 [facility] 09/27 03:22 Order name: Basic Metabolic Panel; Complete Time: 05:01 [facility] 09/27 03:23 Order name: CBC with Automated Diff; Complete Time: 05:01 [facility] 09/27 05:02 Order name: CT Abd/Pelvis - IV Contrast Only [facility] 09/27 05:14 Order name: Urine Dipstick-Ancillary; Complete Time: 06:44 [facility] 09/27 03:22 Order name: IV Saline Lock; Complete Time: 03:37 [facility] 09/27 03:22 Order name: Labs collected and sent; Complete Time: 03:37 [facility] 09/27 03:22 Order name: Urine Dipstick-Ancillary (obtain specimen); Complete Time: 05:16 7 Administered Medications: 03:44 Drug: NS 0.9% 1000 ml Route: IV; Rate: 1000 ml; Site: right antecubital; fu 05:05 Follow up: Response: No adverse reaction; IV Intake: 1000ml fu 04:04 Drug: Zofran (Ondansetron) 4 mg Route: IVP; Infused Over: 2 mins; Site: right fu antecubital; 05:02 Follow up: Response: No adverse reaction fu 04:05 Drug: morphine 2 mg Route: IVP; Site: right antecubital; fu 05:02 Follow up: Response: Pain is decreased fu 06:55 Drug: Cipro (ciprofloxacin) 500 mg Route: PO; fu 07:05 Follow up: Response: Medication administered at discharge. fu Disposition: 09/27/20 06:49 Discharged to Home. Impression: Urinary tract infection, site not specified, Constipation, unspecified. - Condition is Stable. - Discharge Instructions: Constipation, Adult, Urinary Tract Infection, Adult, Rxdj-eh-Cbhy. - Prescriptions for bisacodyl 5 mg Oral tablet,delayed release (DR/EC) - take 2 tablet by ORAL route once daily; 10 tablet. Lactulose 10 gram/15 mL Oral Solution - take 30 milliliters by ORAL route once daily; 150 milliliter. Cipro 500 mg Oral Tablet - take 1 tablet by ORAL route every 12 hours for 7 days; 14 tablet. - Medication Reconciliation Form, Thank You Letter, Antibiotic Education, Prescription Opioid Use form. - Follow up: Private Physician; When: 1 - 2 days; Reason: Worsening of condition, Recheck today's complaints, Continuance of care, Re-evaluation by your physician. - Problem is an acute exacerbation. - Symptoms have improved. Signatures: Dispatcher [employer] EDJonel Hudson RN RN em Umadhay, Felix, RN RN fu Holmes, Maurice, MD MD mh7 Corrections: (The following items were deleted from the chart) 07:06 06:49 09/27/2020 06:49 Discharged to Home. Impression: Urinary tract infection, site fu not specified; Constipation, unspecified. Condition is Stable. Forms are Medication Reconciliation Form, Thank You Letter, Antibiotic Education, Prescription Opioid Use. Follow up: Private Physician; When: 1 - 2 days; Reason: Worsening of condition, Recheck today's complaints, Continuance of care, Re-evaluation by your physician. Problem is an acute exacerbation. Symptoms have improved. mh7
[2020-09-27] MEDS ORDERED: CIPROFLOXACIN HCL 500 MG TAB ONE (07:15)
[2020-09-27 07:22] VITALS: TEMP 97.8
[2020-09-27 07:28] VITALS: BP 130/85; O2SAT 94
--- NOTE | 2020-09-27 20:31 | RAD REPORT ---
EXAM DESCRIPTION: CT - Abdomen Pelvis W Contrast - 09/27/2020 6:43 am COMPARISON: CT abdomen pelvis August 24, 2020 CLINICAL HISTORY: ABD PAIN TECHNIQUE: CT of the abdomen and pelvis was acquired with IV contrast material. Coronal and sagitt al reconstructions were obtained. Automated exposure control was utilized on this examination as a dose lowering technique. FINDINGS: Lung bases: Clear. Liver: Normal. Gallbladder and biliary: Normal gallbladder. Unremarkable biliary tree. Pancreas: Normal. Spleen: Normal. Adrenal glands: Normal adrenal glands. Kidneys: Normal kidneys Stomach and Small Bowel: The stomach and small bowel are normal. Urinary bladder: Normal. Uterus and Adnexa: There is a 2.1 cm simple appearing right ovarian cyst. No follow-up imaging recomm ended. Colon and Appendix: The colon is unremarkable with a moderate stool burden. No evidence of appendicit is. Retroperitoneum and lymph nodes: Normal. Vascular: Normal. Peritoneal cavity: Trace pelvic fluid is noted. No significant intraperitoneal free air. Musculoskeletal and soft tissues: Soft tissues are unremarkable. No aggressive bone lesions. No com pression fracture. IMPRESSION: Trace pelvic fluid is similar to the appearance on August 24 and is likely reactive or phys iologic. Constipation is present with no other acute intra-abdominal abnormality. Electronically signed by: David Banks MD 09/27/2020 6:29 AM CDT Due to temporary technical issues with the PACS/Fluency reporting system, reports are being signed by the in house radiologists without review as a courtesy to insure prompt reporting. The interpreting radiologist is fully responsible for the content of the report
== END 2020-09-27 07:06 | disposition home or self-care (01) ==
LOC: ER 02:31
DX: N39.0 Urinary tract infection, site not specified (principal); K59.00 Constipation, unspecified; F17.210 Nicotine dependence, cigarettes, uncomplicated; Z88.1 Allergy status to other antibiotic agents; Z88.8 Allergy status to other drugs, medicaments and biological substances
CPT/HCPCS: 36415; 74177; 80048; 80076; 80307; 81003; 83690; 85025; 96374; 96375; 99284; J2270; J2405; J7030; Q9967

== ENCOUNTER 2020-09-28 21:38 | Emergency (ER) | payer SELFPAY ==
--- OUTSIDE RECORDS SUMMARY | 2020-09-28 21:43 | XMS REPORT | Continuity of Care Document ---
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 11:15:29121Gsmkjacg HermannCHEM PANEL 2017-06-28 11:15:003.5[facility]annCHEM [id number] 11:15:00 Test Item Value Reference Range Interpretation Comments A/G Ratio (test code = A/G Ratio) 1.1 1 0.7-1.6 [facility] [id number] 11:15:00 Test Item Value Reference Range Interpretation Comments B/C Ratio (test code = B/C Ratio) 13 1 6-25 [facility] [id number] 11:15:0013.6[facility]annCHEM PANEL 2017-06-28 11:15:007.2[facility]annCHE[facility] [id number] 11:15:0056[facility]annCHEM MQWKV4071-47-97 11:15:000.2[facility]annCHE[facility] [id number] 11:15:003.6[facility]annCHEM [id number] 11:15:04277Dxnweeok HermannCHEM BCQET9402-98-68 11:15:008.9[facility]annCHEM [id number] 11:15:15881 [facility]annCHE[facility] [id number] 11:15:97150Hdmmjopj HermannCHEM PANEL 2017-06-28 11:15:0024[facility]annCHEM [id number] 11:15:0020[facility]annCHEM [id number] 11:15:0024[facility]annCHEM QZWBI9853-28-66 11:15:003.7[facility]annCHEM LTMHH4107-70-98 11:15:000.63[facility]annCHEM ZTLMJ1408-96-74 11:15:008[facility]annCHEM EFEZQ4198-11-35 11:15:74606 [facility] XkrudhfKQGQWPZWYLBVK4372-09-10 11:15:00Negative *NA*(06/28/17 6:15 AM) [facility] LdokmbdTCPGMTOAYO5720-41-09 11:15:0015.4[facility]annHEMATOLOGY 2017-06-28 11:15:007.7[facility] AiggnlrYMLBCQDKHB4879-44-42 11:15:63625Hfphaizg RcgnsjtFETJSCAKGY8204-84-52 11:15:0087.1[facility] DiavepiQWUXLZDDMN4580-28-34 11:15:0037.9[facility] IwclvyvNRKNRMZPQT9982-29-25 11:15:0033.3[facility] TLUPURMURO5067-89-25 11:15:00 Test Item Value Reference Range Interpretation Comments MCH (test code = MCH) 29.0 pg 27.0-31.0 [facility] HwaepdcPBOSPMQHWM2767-25-22 11:15:0012.6[facility]annHEMATOLOGY 2017-06-28 11:15:004.35[facility] GdedujbGMWACVZEKG2156-47-95 11:15:0010.7[facility] XamjnjaWFGPLCSMQN3076-63-06 11:15:000.8[facility] EuiayxaSVVIIGQQSQ1253-32-66 11:15:000.2[facility] YdnsizhEZYVMGNKKD7703-29-25 11:15:0072.1[facility] XORXWWFIFC8994-38-91 11:15:007.7[facility] AxbiwxuSTATSGWDCJ3636-54-55 11:15:002.0 [facility] ZcvbysgLSTQKUGPYP7762-10-96 11:15:000.4[facility]annHEMATOLOGY 2017-06-28 11:15:007.2[facility] FyrkfhkMBGHGMRSWD3267-29-66 11:15:001.7[facility] FddkgauBUYXKUBWKM6075-93-92 11:15:0018.6[facility] STOOL 2017-06-28 11:15:00Colorless *NA*(06/28/17 6:15 AM)[facility] [id number] 11:15:00 Test Item Value Reference Range Interpretation Comments UA Spec Grav (test code = UA Spec 1.002 1 Grav) [facility] [id number] 11:15:00Clear (06/28/17 6:15 AM) [facility] [id number] 11:15:00 Test Item Value Reference Range Interpretation Comments UA pH (test code = UA pH) 6.0 1 5.0-8.0 [facility] [id number] 11:15:00Moderate *ABN*(06/28/17 6:15 AM)[facility] [id number] 11:15:00Negative *NA*(06/28/17 6:15 AM)[facility] [id number] 11:15:00Negative (06/28/17 6:15 AM) [facility] [id number] 11:15:001[facility] [id number] 11:15:00Negative (06/28/17 6:15 AM)[facility] [id number] 11:15:002[facility] [id number] 11:15:001 [facility] [place]
[2020-09-29] MEDS ORDERED: ACETAMINOPHEN 500 MG TAB ONE (01:05)
--- NOTE | 2020-09-29 02:49 | ER ---
Nurse's Notes [facility] Name: Dayami Espinosa Age: 50 yrs Sex: Female : 1970 Arrival Date: 09/28/2020 Time: 21:40 Bed 13 Private MD: Diagnosis: Headache Presentation: 09/28 21:43 Chief complaint: Patient states: Pt c/o L head pain "for years", denies recent injury ad5 or fall. Denies paresthesias or other focal deficits. Speech clear and appropriate. Head normocephalic. VSS. Coronavirus screen: At this time, the client does not indicate any symptoms associated with coronavirus-19. Ebola Screen: No symptoms or risks identified at this time. Initial Sepsis Screen: Does the patient meet any 2 criteria? No. Patient's initial sepsis screen is negative. Does the patient have a suspected source of infection? No. Patient's initial sepsis screen is negative. Risk Assessment: Do you want to hurt yourself or someone else? Patient reports no desire to harm self or others. Onset of symptoms was September 28, 2020. 21:43 Method Of Arrival: EMS ad5 21:43 Acuity: JAZMIN 3 ad5 Triage Assessment: 21:46 General: Appears in no apparent distress. Behavior is calm, cooperative, appropriate ad5 for age. Pain: Complains of pain in left temporal area. Historical: - Allergies: 21:45 Amoxicillin; ad5 21:45 Pseudoephedrine; ad5 - PMHx: 21:45 Anemia; Bipolar disorder; gastritis; Ovarian cyst; ad5 - Immunization history:: Adult Immunizations unknown. - Social history:: Smoking status: Patient reports the use of cigarette tobacco products, smokes one pack cigarettes per day. Screenin/28 00:18 Abuse screen: Denies threats or abuse. Nutritional screening: No deficits noted. bb Tuberculosis screening: No symptoms or risk factors identified. Fall Risk None identified. Assessment: 00:18 General: Appears in no apparent distress. slender, Behavior is calm, cooperative. Pain: bb Complains of pain in left temporal area Pain began years ago. Neuro: Level of Consciousness is awake, alert, obeys commands, Oriented to person, place, time, situation. Cardiovascular: Capillary refill < 3 seconds Patient's skin is warm and dry. Respiratory: Airway is patent Respiratory effort is even, unlabored, Respiratory pattern is regular. GI: No signs and/or symptoms were reported involving the gastrointestinal system. Derm: Skin is pink, warm \\T\\ dry. Musculoskeletal: Circulation, motion, and sensation intact. :27 Reassessment: pt appears to be sleeping, eyes closed, resp unlabored, arouses easily. bb 03:15 Reassessment: Patient and/or family updated on plan of care and expected duration. Pain ea level reassessed. Patient is alert, oriented x 3, equal unlabored respirations, skin warm/dry/pink. Discharge instruction given to patient verbalized the understanding of instruction Pt left ED ambulatory tolerating well. Vital Signs: 09/28 21:43 BP 130 / 85; Pulse 84; Resp 18 S; Temp 98.8; Pulse Ox 100% on R/A; Weight 48.08 kg; ad5 Height 5 ft. 3 in. (160.02 cm); 09/29 01:35 BP 102 / 63; Pulse 69; Resp 14 S; Temp 98.9(TE); Pulse Ox 100% on R/A; bb 03:00 BP 112 / 60; Pulse 70; Resp 18; Temp 98.7; Pulse Ox 99% ; ea 09/28 21:43 Body Mass Index 18.78 (48.08 kg, 160.02 cm) ad5 Phuc Coma Score: 02:47 Eye Response: spontaneous(4). Verbal Response: oriented(5). Motor Response: obeys mh7 commands(6). Total: 15. ED Course: 09/28 21:40 Patient arrived in ED. es 21:45 Triage completed. ad5 21:46 Arm band placed on right wrist. ad5 23:59 Driss Melchor MD is Attending Physician. 7 09/29 00:18 Belen Estrada, BENI is Primary Nurse. bb 00:18 Patient has correct armband on for positive identification. Bed in low position. Call bb light in reach. 02:48 Alexander Polk MD is Referral Physician. 7 03:15 No provider procedures requiring assistance completed. Patient did not have IV access ea during this emergency room visit. Administered Medications: 00:48 Drug: Tylenol 1000 mg Route: PO; bb 01:36 Follow up: Response: No adverse reaction bb Outcome: 02:48 Discharge ordered by . mh7 03:15 Discharged to home ambulatory. adam 03:15 Condition: stable 03:15 Discharge instructions given to patient, Instructed on discharge instructions, follow up and referral plans. Demonstrated understanding of instructions, follow-up care. 03:16 Patient left the ED. ea Signatures: Jessie Jett Brenda, RN RN Jacquelin Carey RN RN ea Holmes, Maurice, MD MD 7 Marc Sloan
--- NOTE | 2020-09-29 02:49 | EDPHYS ---
Physician Documentation [facility] Name: Daymai Espinosa Age: 50 yrs Sex: Female : 1970 Arrival Date: 09/28/2020 Time: 21:40 Bed 13 Private MD: ED Physician Driss Melchor HPI: 09/29 00:56 This 50 yrs old Female presents to ER via EMS with complaints of RELIGION PAIN. mh7 00:56 The patient complains of pain to the left scalp. The patient describes the headache as mh7 intermittent, waxing and waning, sharp. 00:57 Onset: The symptoms/episode began/occurred 3 year(s) ago. Associated signs and mh7 symptoms: Pertinent negatives: altered mental status, dizziness, fever, malaise, nausea, neck stiffness, paresthesias, Photophobia rash, sinus congestion, sinus tenderness, vision changes, vision loss, vomiting, weakness, vertigo. Severity of symptoms: At its worst the pain was mild, 7 day(s) ago, in the emergency department the pain has improved, moderately. Headache History: The patient has had previous headaches and this one is similar to previous episodes. The symptoms are alleviated by over the counter pain medication, OTC NSAIDS, Tylenol, the symptoms are aggravated by touching area. The patient has experienced similar episodes in the past, chronically. Historical: - Allergies: 09/28 21:45 Amoxicillin; ad5 21:45 Pseudoephedrine; ad5 - PMHx: 21:45 Anemia; Bipolar disorder; gastritis; Ovarian cyst; ad5 - Immunization history:: Adult Immunizations unknown. - Social history:: Smoking status: Patient reports the use of cigarette tobacco products, smokes one pack cigarettes per day. ROS: 09/29 00:57 Constitutional: Negative for fever, chills, and weight loss, Eyes: Negative for injury, mh7 pain, redness, and discharge, ENT: Negative for injury, pain, and discharge, Neck: Negative for injury, pain, and swelling, Cardiovascular: Negative for chest pain, palpitations, and edema, Respiratory: Negative for shortness of breath, cough, wheezing, and pleuritic chest pain, Abdomen/GI: Negative for abdominal pain, nausea, vomiting, diarrhea, and constipation, Back: Negative for injury and pain, : Negative for injury, bleeding, discharge, and swelling, MS/Extremity: Negative for injury and deformity, Skin: Negative for injury, rash, and discoloration, Psych: Negative for depression, anxiety, suicide ideation, homicidal ideation, and hallucinations, Allergy/Immunology: Negative for hives, rash, and allergies, Endocrine: Negative for neck swelling, polydipsia, polyuria, polyphagia, and marked weight changes, Hematologic/Lymphatic: Negative for swollen nodes, abnormal bleeding, and unusual bruising. Exam: 00:57 Constitutional: This is a well developed, well nourished patient who is awake, alert, mh7 and in no acute distress. 00:57 Eyes: Pupils equal round and reactive to light, extra-ocular motions intact. Lids and lashes normal. Conjunctiva and sclera are non-icteric and not injected. Cornea within normal limits. Periorbital areas with no swelling, redness, or edema. ENT: Nares patent. No nasal discharge, no septal abnormalities noted. Tympanic membranes are normal and external auditory canals are clear. Oropharynx with no redness, swelling, or masses, exudates, or evidence of obstruction, uvula midline. Mucous membranes moist. Neck: Trachea midline, no thyromegaly or masses palpated, and no cervical lymphadenopathy. Supple, full range of motion without nuchal rigidity, or vertebral point tenderness. No Meningismus. Chest/axilla: Normal chest wall appearance and motion. Nontender with no deformity. No lesions are appreciated. Cardiovascular: Regular rate and rhythm with a normal S1 and S2. No gallops, murmurs, or rubs. Normal PMI, no JVD. No pulse deficits. Respiratory: Lungs have equal breath sounds bilaterally, clear to auscultation and percussion. No rales, rhonchi or wheezes noted. No increased work of breathing, no retractions or nasal flaring. Abdomen/GI: Soft, non-tender, with normal bowel sounds. No distension or tympany. No guarding or rebound. No evidence of tenderness throughout. Back: No spinal tenderness. No costovertebral tenderness. Full range of motion. Skin: Warm, dry with normal turgor. Normal color with no rashes, no lesions, and no evidence of cellulitis. MS/ Extremity: Pulses equal, no cyanosis. Neurovascular intact. Full, normal range of motion. Neuro: Awake and alert, GCS 15, oriented to person, place, time, and situation. Cranial nerves II-XII grossly intact. Motor strength 5/5 in all extremities. Sensory grossly intact. Cerebellar exam normal. Normal gait. Psych: Awake, alert, with orientation to person, place and time. Behavior, mood, and affect are within normal limits. 00:57 Head/face: Noted is tenderness, that is moderate, of the left frontal area. Vital Signs: 09/28 21:43 BP 130 / 85; Pulse 84; Resp 18 S; Temp 98.8; Pulse Ox 100% on R/A; Weight 48.08 kg; ad5 Height 5 ft. 3 in. (160.02 cm); 09/29 01:35 BP 102 / 63; Pulse 69; Resp 14 S; Temp 98.9(TE); Pulse Ox 100% on R/A; bb 03:00 BP 112 / 60; Pulse 70; Resp 18; Temp 98.7; Pulse Ox 99% ; ea 09/28 21:43 Body Mass Index 18.78 (48.08 kg, 160.02 cm) ad5 Phuc Coma Score: 02:47 Eye Response: spontaneous(4). Verbal Response: oriented(5). Motor Response: obeys [facility] commands(6). Total: 15. MDM: 02:47 Differential diagnosis: cluster headache, migraine, tension headache. Data reviewed: [facility] vital signs, nurses notes. Counseling: I had a detailed discussion with the patient and/or guardian regarding: the historical points, exam findings, and any diagnostic results supporting the discharge/admit diagnosis, the need for outpatient follow up, to return to the emergency department if symptoms worsen or persist or if there are any questions or concerns that arise at home. Response to treatment: the patient's symptoms have resolved after treatment, the patient's blood pressure is in an acceptable range, mental status has returned to baseline, the patient no longer shows bradycardia, the patient is not short of breath, the patient is not tachycardic, the patient's pain is gone, the patient's temperature has normalized. 02:48 Patient medically screened. [facility] Administered Medications: 00:48 Drug: Tylenol 1000 mg Route: PO; bb 01:36 Follow up: Response: No adverse reaction bb Disposition: 09/29/20 02:48 Discharged to Home. Impression: Headache. - Condition is Stable. - Discharge Instructions: General Headache Without Cause. - Medication Reconciliation Form, Thank You Letter, Antibiotic Education, Prescription Opioid Use form. - Follow up: Private Physician; When: 1 - 2 days; Reason: Worsening of condition, Recheck today's complaints, Continuance of care, Re-evaluation by your physician. Follow up: Alexander Polk MD; When: 1 - 2 days; Reason: Worsening of condition, Recheck today's complaints. - Problem is an acute exacerbation. - Symptoms have improved. Signatures: Belen Estrada RN RN Jacquelin Carey RN RN Driss Harris MD MD 7 Marc Sloan Corrections: (The following items were deleted from the chart) 03:16 02:48 09/29/2020 02:48 Discharged to Home. Impression: Headache. Condition is Stable. ea Forms are Medication Reconciliation Form, Thank You Letter, Antibiotic Education, Prescription Opioid Use. Follow up: Private Physician; When: 1 - 2 days; Reason: Worsening of condition, Recheck today's complaints, Continuance of care, Re-evaluation by your physician. Follow up: Alexander Polk; When: 1 - 2 days; Reason: Worsening of condition, Recheck today's complaints. Problem is an acute exacerbation. Symptoms have improved. mh7
[2020-09-29 03:28] VITALS: BP 112/60; TEMP 98.7; O2SAT 99
== END 2020-09-29 03:16 | disposition home or self-care (01) ==
LOC: ER 21:38
DX: R51.9 Headache, unspecified (principal); F17.210 Nicotine dependence, cigarettes, uncomplicated; Z88.1 Allergy status to other antibiotic agents; Z88.8 Allergy status to other drugs, medicaments and biological substances
CPT/HCPCS: 99283

== ENCOUNTER 2020-10-05 19:14 | Emergency (ER) | payer SELFPAY ==
--- OUTSIDE RECORDS SUMMARY | 2020-10-05 19:26 | XMS REPORT | Continuity of Care Document ---
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 PANEL 2017-06-28 11:15:007.2[facility] [id number] 11:15:0056[facility] [id number] 11:15:000.2[facility] [id number] 11:15:003.6[facility] UFLBT1108-40-94 11:15:38756Uzjwnqhq HermannCHEM VXSTG2897-48-07 11:15:008.9[facility]annCHE[facility] [id number] 11:15:01673 [facility] [id number] 11:15:65315Bkddyyam HermannCHEM PANEL 2017-06-28 11:15:0024[facility]annCHE[facility] [id number] 11:15:0020[facility]annCHE[facility] [id number] 11:15:0024[facility] AWEDV0512-09-49 11:15:003.7[facility] [id number] 11:15:000.63[facility] BUBCV9715-95-96 11:15:008[facility] [id number] 11:15:74917 [facility] PeacwvlDCSEROZKGDSDO6543-53-44 11:15:00Negative *NA*(06/28/17 6:15 AM) [facility] CfptzyfPUSNSXBPZZ5190-22-89 11:15:0015.4[facility]annHEMATOLOGY 2017-06-28 11:15:007.7[facility] IkmhoxzNREACEBUVT9810-56-39 11:15:42982Xnnibabq NivngoyVOWJXKRJTM9145-66-04 11:15:0087.1[facility] UiqqdluRQVATDJYPC5845-91-75 11:15:0037.9[facility] XlxbmejTHZGFQNTMY3279-28-09 11:15:0033.3[facility] [place] [id number] 11:15:00 Test Item Value Reference Range Interpretation Comments MCH (test code = MCH) 29.0 pg 27.0-31.0 [facility] TfpusvaTQXRTKXFAL1369-00-25 11:15:0012.6[facility]annHEMATOLOGY 2017-06-28 11:15:004.35[facility] UxrrehnCENQRRNLPG5576-83-50 11:15:0010.7[facility] SrdvfcaZCDJJZIKPK3572-48-35 11:15:000.8[facility] QpyhqhgCWFLXXYSFM5934-67-55 11:15:000.2[facility] UbyuwjzKSEFDAHQYA3560-07-55 11:15:0072.1[facility] [place] DBFKRPNIQS2924-70-81 11:15:007.7[facility] QyajakpAZHVYTXJBN9552-74-01 11:15:002.0 [facility] UmidpyjSEBJINOPBB3864-07-05 11:15:000.4[facility]annHEMATOLOGY 2017-06-28 11:15:007.2[facility] DdoeiblLSSKTHLOXM9059-75-37 11:15:001.7[facility] MvvkjuvTBRLNINPJH8483-63-74 11:15:0018.6[facility] STOOL 2017-06-28 11:15:00Colorless *NA*(06/28/17 6:15 AM)[facility] [id number] 11:15:00 Test Item Value Reference Range Interpretation Comments UA Spec Grav (test code = UA Spec 1.002 1 Grav) [facility] [id number] 11:15:00Clear (06/28/17 6:15 AM) [facility] [id number] 11:15:00 Test Item Value Reference Range Interpretation Comments UA pH (test code = UA pH) 6.0 1 5.0-8.0 [facility] [id number] 11:15:00Moderate *ABN*(06/28/17 6:15 AM)[facility] [id number] 11:15:00Negative *NA*(06/28/17 6:15 AM)[facility] [id number] 11:15:00Negative (06/28/17 6:15 AM) [facility] [id number] 11:15:001[facility] [id number] 11:15:00Negative (06/28/17 6:15 AM)[facility] [id number] 11:15:002[facility] [id number] 11:15:001 [facility] [place]
[2020-10-05] MEDS ORDERED: NA CHLORIDE 0.9% 1,000 ML ONE (20:18)
[2020-10-05 20:56] LABS: Absolute Lymphocytes (CBC) 2.4 K/uL (0.7-4.9); Hematocrit 36.3 % (36.0-45.0); Lymphocytes % 20.5 % (15.3-44.8); MPV 9.3 fL (7.6-11.3); RBC Red Blood Cell Count 4.29 M/uL (3.86-4.86)
[2020-10-05 20:57] LABS: Protime INR 0.98
[2020-10-05 21:12] LABS: ALT/SGPT 18 U/L (12-78); AST/SGOT 13 U/L (15-37); Alkaline Phosphatase 51 U/L (45-117); BUN Blood Urea Nitrogen 14 mg/dL (7-18); Bicarbonate 22 mmol/L (21-32); Bilirubin Direct < 0.1 mg/dL (0-0.2); Bilirubin Total 0.3 mg/dL (0.2-1.0); Glucose Level 94 mg/dL (74-106); Magnesium 1.9 mg/dL (1.8-2.4); NT PRO-BNP 58 pg/mL (<125); Potassium 3.6 mmol/L (3.5-5.1); Protein, Total 7.3 g/dL (6.4-8.2); Sodium Level 142 mmol/L (136-145); Troponin (Emerg Dept Use Only) < 0.02 ng/mL (0.0-0.045)
--- NOTE | 2020-10-05 21:26 | ER ---
Nurse's Notes [facility] Name: Dayami Espinosa Age: 50 yrs Sex: Female : 1970 Arrival Date: 10/05/2020 Time: 19:16 Bed 26 Private MD: Diagnosis: Dizziness and giddiness Presentation: 10/05 19:17 Chief complaint: Patient states: Complaining of feeling like she is going to pass out. ea Coronavirus screen: At this time, the client does not indicate any symptoms associated with coronavirus-19. Ebola Screen: No symptoms or risks identified at this time. Initial Sepsis Screen: Does the patient meet any 2 criteria? No. Patient's initial sepsis screen is negative. Does the patient have a suspected source of infection? No. Patient's initial sepsis screen is negative. Risk Assessment: Do you want to hurt yourself or someone else? Patient reports no desire to harm self or others. Onset of symptoms was October 05, 2020. 19:17 Method Of Arrival: Ambulatory ea 19:17 Acuity: JAZMIN 3 ea Historical: - Allergies: 19:19 Amoxicillin; ea 19:19 Pseudoephedrine; ea - Home Meds: 19:19 Depakote 250 mg Oral TbEC 1 tab in the morning for Bipolar Disorder in Remission ea [Active]; - PMHx: 19:19 Anemia; Bipolar disorder; gastritis; Ovarian cyst; ea - Immunization history:: Adult Immunizations up to date. - Social history:: Smoking status: unknown. Screenin:18 Abuse screen: Denies threats or abuse. Nutritional screening: No deficits noted. ea Tuberculosis screening: No symptoms or risk factors identified. Fall Risk None identified. Assessment: 19:53 General: Appears in no apparent distress. Behavior is calm, cooperative, appropriate ea for age. Pain: Denies pain. Neuro: Level of Consciousness is awake, alert, obeys commands, Oriented to person, place, time. Cardiovascular: Patient's skin is warm and dry. Respiratory: Airway is patent Respiratory effort is even, unlabored, Respiratory pattern is regular, symmetrical. Derm: Skin is pink, warm \T\ dry. 20:54 Reassessment: Patient and/or family updated on plan of care and expected duration. Pain ea level reassessed. Patient is alert, oriented x 3, equal unlabored respirations, skin warm/dry/pink. Vital Signs: 19:17 BP 125 / 83; Pulse 80; Resp 18; Temp 97.6; Pulse Ox 98% ; ea 20:52 BP 129 / 81; Pulse 60; Resp 18; Pulse Ox 98% ; ea 21:54 BP 120 / 74; Pulse 66; Resp 18; Temp 97.7; Pulse Ox 98% on R/A; ea ED Course: 19:16 Patient arrived in ED. ea 19:18 Triage completed. ea 19:18 Arm band placed on right wrist. Patient placed in an exam room, on a stretcher, on ea pulse oximetry. 19:18 Patient has correct armband on for positive identification. Bed in low position. Call ea light in reach. Side rails up X2. 19:24 Ming Fontenot NP is PHCP. pm1 19:24 Derrek Martines MD is Attending Physician. pm1 19:53 Jacquelin Matias RN is Primary Nurse. ea 20:26 Missed attempt(s): 20 gauge in right forearm. tt3 20:43 Inserted saline lock: 22 gauge in right antecubital area, using aseptic technique. ea Blood collected. 21:07 XRAY Chest (1 view) In Process Unspecified. EDMS 21:53 No provider procedures requiring assistance completed. IV discontinued, intact, ea bleeding controlled, No redness/swelling at site. Pressure dressing applied. Administered Medications: 20:42 Drug: NS 0.9% 1000 ml Route: IV; Rate: 1000 ml; Site: left antecubital; ea 21:55 Follow up: Response: No adverse reaction; IV Status: Completed infusion; IV Intake: ea 1000ml Intake: 21:55 IV: 1000ml; Total: 1000ml. ea Outcome: 21:25 Discharge ordered by . pm1 21:54 Condition: stable ea 21:54 Discharge instructions given to patient, Instructed on discharge instructions, follow up and referral plans. 21:54 Discharged to home ambulatory. ea 21:55 Patient left the ED. ea Signatures: Dispatcher [employer] EDMS Ming Fontenot NP SOFA BACK UPHOLSTERER pm1 Jacquelin Matias RN RN ea Trim, Tyler tt3 Corrections: (The following items were deleted from the chart) 20:27 20:26 Missed attempt(s): 20 gauge in right forearm. tt3 tt3
--- NOTE | 2020-10-05 21:26 | EDPHYS ---
Physician Documentation [facility] Name: Dayami Espinosa Age: 50 yrs Sex: Female : 1970 Arrival Date: 10/05/2020 Time: 19:16 Bed 26 Private MD: ED Physician Derrek Martines HPI: 10/05 19:36 This 50 yrs old Female presents to ER via Ambulatory with complaints of pm1 Dizziness. 19:36 The patient presents with feeling faint. Onset: The symptoms/episode began/occurred pm1 today. Context: occurred outdoors, occurred while the patient was standing, just prior to the episode the patient experienced no apparent symptoms. Modifying factors: The symptoms are alleviated by nothing, the symptoms are aggravated by nothing. Associated signs and symptoms: Pertinent negatives: abdominal pain, chest pain, head injury, headache, nausea, numbness, shortness of breath, syncope, tingling, vomiting. Severity of symptoms: in the emergency department the symptoms are unchanged. The patient has experienced similar episodes in the past, multiple times, Has been seen in this ER for the same complaint on multiple occasions. 19:36 The patient has been recently seen at the [facility] Emergency pm1 Department, last week, for unrelated complaints, headache. Historical: - Allergies: 19:19 Amoxicillin; ea 19:19 Pseudoephedrine; ea - Home Meds: 19:19 Depakote 250 mg Oral TbEC 1 tab in the morning for Bipolar Disorder in Remission ea [Active]; - PMHx: 19:19 Anemia; Bipolar disorder; gastritis; Ovarian cyst; ea - Immunization history:: Adult Immunizations up to date. - Social history:: Smoking status: unknown. ROS: 19:36 Constitutional: Negative for fever, chills, and weight loss. pm1 19:36 Eyes: Negative for injury, pain, redness, and discharge, ENT: Negative for injury, pain, and discharge, Neck: Negative for injury, pain, and swelling, Cardiovascular: Negative for chest pain, palpitations, and edema, Respiratory: Negative for shortness of breath, cough, wheezing, and pleuritic chest pain, Abdomen/GI: Negative for abdominal pain, nausea, vomiting, diarrhea, and constipation, Back: Negative for injury and pain, MS/Extremity: Negative for injury and deformity, Skin: Negative for injury, rash, and discoloration. 19:36 Neuro: Positive for dizziness, Negative for headache, numbness, tingling, weakness. Exam: 19:36 Constitutional: This is a well developed, well nourished patient who is awake, alert, pm1 and in no acute distress. Head/Face: Normocephalic, atraumatic. 19:36 Neck: Trachea midline, no thyromegaly or masses palpated, and no cervical lymphadenopathy. Supple, full range of motion without nuchal rigidity, or vertebral point tenderness. No Meningismus. 19:36 Back: No spinal tenderness. No costovertebral tenderness. Full range of motion. Skin: Warm, dry with normal turgor. Normal color with no rashes, no lesions, and no evidence of cellulitis. MS/ Extremity: Pulses equal, no cyanosis. Neurovascular intact. Full, normal range of motion. 19:36 Eyes: Exam is negative for acute changes, Pupils: no acute changes, Extraocular movements: no acute changes, Conjunctiva: no acute changes, no injection, Sclera: no acute changes, icterus, is not appreciated. 19:36 ENT: Exam is negative for acute changes, Mouth: Lips: normal, Oral mucosa: normal, pink and intact, moist. 19:36 Cardiovascular: Rate: normal, Rhythm: regular, Pulses: no pulse deficits are appreciated, Heart sounds: normal, Edema: is not appreciated. 19:36 Respiratory: Exam negative for acute changes, respiratory distress, shortness of breath, Breath sounds: are clear throughout. 19:36 Abdomen/GI: Inspection: abdomen appears normal, Palpation: abdomen is soft and non-tender, in all quadrants. 19:36 Neuro: Exam negative for acute changes, Orientation: is normal, Mentation: is normal, Motor: is normal, moves all fours, Sensation: is normal, no obvious gross deficits. Vital Signs: 19:17 BP 125 / 83; Pulse 80; Resp 18; Temp 97.6; Pulse Ox 98% ; ea 20:52 BP 129 / 81; Pulse 60; Resp 18; Pulse Ox 98% ; ea 21:54 BP 120 / 74; Pulse 66; Resp 18; Temp 97.7; Pulse Ox 98% on R/A; ea MDM: 19:30 Patient medically screened. pm1 21:24 Data reviewed: vital signs. Data interpreted: Pulse oximetry: on room air is 98 %. pm1 Interpretation: normal. 21:24 Counseling: I had a detailed discussion with the patient and/or guardian regarding: the pm1 historical points, exam findings, and any diagnostic results supporting the discharge/admit diagnosis, lab results, radiology results, the need for outpatient follow up, to return to the emergency department if symptoms worsen or persist or if there are any questions or concerns that arise at home. 10/05 19:30 Order name: Basic Metabolic Panel; Complete Time: 21:14 pm10/05 19:30 Order name: CBC with Diff; Complete Time: 21:05 pm10/05 19:30 Order name: LFT's; Complete Time: 21:14 pm10/05 19:30 Order name: Magnesium; Complete Time: 21:14 pm10/05 19:30 Order name: NT PRO-BNP; Complete Time: 21:14 pm10/05 19:30 Order name: PT-INR; Complete Time: 21:05 pm10/05 19:30 Order name: Troponin (emerg Dept Use Only); Complete Time: 21:14 pm10/05 19:30 Order name: XRAY Chest (1 view); Complete Time: 21:47 pm10/05 19:30 Order name: EKG; Complete Time: 19:31 pm10/05 19:30 Order name: Cardiac monitoring; Complete Time: 20:18 pm10/05 19:30 Order name: EKG - Nurse/Tech; Complete Time: 20:18 pm10/05 19:30 Order name: IV Saline Lock; Complete Time: 20:43 pm10/05 19:30 Order name: Labs collected and sent; Complete Time: 20:43 pm10/05 19:30 Order name: O2 Per Protocol; Complete Time: 20:18 pm10/05 19:30 Order name: O2 Sat Monitoring; Complete Time: 20:18 pm1 Administered Medications: 20:42 Drug: NS 0.9% 1000 ml Route: IV; Rate: 1000 ml; Site: left antecubital; ea 21:55 Follow up: Response: No adverse reaction; IV Status: Completed infusion; IV Intake: ea 1000ml Disposition: 22:22 Co-signature as Attending Physician, Derrek Martines MD. pkl Disposition Summary: 10/05/20 21:25 Discharge Ordered Location: Home pm1 Problem: new pm1 Symptoms: have improved pm1 Condition: Stable pm1 Diagnosis - Dizziness and giddiness pm1 Followup: pm1 - With: Emergency Department - When: As needed - Reason: Worsening of condition Followup: pm1 - With: Private Physician - When: 2 - 3 days - Reason: Recheck today's complaints, Continuance of care, Re-evaluation by your physician Discharge Instructions: - Discharge Summary Sheet pm1 - Dizziness pm1 Forms: - Medication Reconciliation Form pm1 - Thank You Letter pm1 - Antibiotic Education pm1 - Prescription Opioid Use pm1 Signatures: Dispatcher [employer] EDMS Derrek Martines MD MD pkl Ming Fontenot NP SPEECH AND HEARING CLINIC DIRECTOR pm1 Jacquelin Matias RN RN ea Corrections: (The following items were deleted from the chart) 22:09 19:36 Associated signs and symptoms: Pertinent negatives: abdominal pain, chest pain, pm1 nausea, numbness, shortness of breath, syncope, tingling, vomiting, pm1
--- NOTE | 2020-10-05 21:44 | RAD REPORT ---
EXAM DESCRIPTION: RAD - Chest Single View - 10/05/2020 9:07 pm CLINICAL HISTORY: dizziness, shortness of breath COMPARISON: August 24 TECHNIQUE: AP portable chest image was obtained 10/05/2020 9:07 pm . FINDINGS: Lung hinojosa are hyperexpanded. No peripheral mass or consolidation. Interstitial pattern m atches comparison. Heart and vasculature are normal. No measurable pleural effusion and no pneumothorax. No acute bony abnormality seen. No acute aortic findings suspected. IMPRESSION: No acute cardiopulmonary process. Chronic interstitial pattern matches comparison.
[2020-10-05 22:00] VITALS: O2SAT 98
[2020-10-05 22:08] VITALS: BP 120/74; TEMP 97.7
--- NOTE | 2020-10-06 10:29 | EKG ---
Test Date: 2020-10-05 Test Time: 20:16:28 Retail Account Executive: ZOE MEASUREMENT RESULTS: Intervals: Rate: 76 WA: 140 QRSD: 78 QT: 368 QTc: 414 Venus: P: 75 WA: 140 QRS: 83 T: 67 INTERPRETIVE STATEMENTS: Normal sinus rhythm Normal ECG Compared to ECG 08/24/2020 05:43:06 No significant changes Electronically Signed On 10-06-20 10:28:34 CDT by Chaak Burnett
== END 2020-10-05 21:55 | disposition home or self-care (01) ==
LOC: ER 19:14
DX: R42 Dizziness and giddiness (principal); Z88.1 Allergy status to other antibiotic agents; Z88.8 Allergy status to other drugs, medicaments and biological substances
CPT/HCPCS: 36415; 71045; 80048; 80076; 83735; 83880; 84484; 85025; 85610; 93005; 96360; 99284; J7030

== ENCOUNTER 2020-11-24 01:51 | Emergency (ER) | payer SELFPAY ==
--- OUTSIDE RECORDS SUMMARY | 2020-11-24 01:57 | XMS REPORT | Continuity of Care Document ---
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 QhndkrjMUSRWREKTB7340-05-31 21:07:00 83.5[facility] OyjonjbWLHHERXAQS0171-94-27 21:07:00 Test Item Value Reference Range Interpretation Comments MCH (test code = MCH) 27.5 pg 27.0-31.0 [facility]fieldYqufcvpWNUXDIBSFM7444-03-52 21:07:008.4[facility] HermannHEMATOLOGY 2018-04-13 21:07:0056.3[facility] LffeugoAFUCCFIVZA1188-43-62 21:07:0029.4[facility] EexxfxmPSFGZKETXL4362-55-16 21:07:009.6[facility] YcqpehnXKCTIAVPBU5730-71-96 21:07:004.0[facility] VyscdqyHMPZSUXSIW5760-58-07 21:07:000.7[facility] YHZUJCTZTT5727-25-95 21:07:003.3[facility] SgehcazDOEOLNUOCH6202-32-51 21:07:001.7 [facility] RceyewzGXJEZFERVR8401-32-57 21:07:000.6[facility] HermannHEMATOLOGY 2018-04-13 21:07:000.2[facility] PewzdctXWTVKNAAME6917-60-51 21:07:000.7[facility] JxdvwcuHQYNTKJRJM9119-97-17 21:07:003.3[facility] GtoevvmWBICGSVWJK9632-00-57 21:07:001.7[facility] EaetezyZAMRERCDTD1541-23-80 21:07:000.6[facility] PQKPCYKNSL1660-49-47 21:07:000.2[facility] HermannCHEM BJSPZ5751-15-67 21:07:53278 [facility] HermannCHEM XWZDY0924-43-67 21:07:51373Bmoevsoc HermannCHEM PANEL 2018-04-13 21:07:0023[facility] HermannCHEM BWTNX7376-03-42 21:07:000.58[facility] HermannCHEM ZYSTD0332-55-19 21:07:14681Kblnkbsu HermannCHEM KWWKW9709-65-10 21:07:004.4[facility] HermannCHEM XRCPM4091-67-01 21:07:008.6[facility] HermannCHEM OYAWS6455-67-10 21:07:007[facility] HermannCHEM NCGDN2214-93-98 21:07:79481 [facility] HermannCHEM JBSZK3770-40-93 21:07:0013.4[facility] HermannHEMATOLOGY 2018-04-13 21:07:002.1[facility] HquwvuuCARCZPQSLT7846-54-76 21:07:00 Test Item Value Reference Range Interpretation Comments Angle Rapid (test code = Angle 75 degrees 64-80 Rapid) [facility] UhirpryIVUKWCKGMW9839-10-18 21:07:008.6[facility] HermannHEMATOLOGY 2018-04-13 21:07:00 Test Item Value Reference Range Interpretation Comments Max Amplitude Rapid (test code = Max 63 mm 52-71 Amplitude Rapid) [facility] ParkwayMhrauzbEAICJOLAOU6317-37-15 21:07:00 Test Item Value Reference Range Interpretation Comments R-time Rapid (test code = R-time 0.7 min 0.4-0.7 Rapid) [facility]PvfserhXSTFNMHWVW9682-23-31 21:07:00 Test Item Value Reference Range Interpretation Comments K-time Rapid (test code = K-time 1.2 min 0.6-2.3 Rapid) [facility] HospitalHmpotqkPULCDXVQZF3867-86-26 21:07:00 Test Item Value Reference Range Interpretation Comments ACT (TEG) Rapid (test code = ACT (TEG) 113 s 86-118 Rapid) [facility] HospitalGflbmtjTUKRYMDGSQ6750-97-78 21:07:00 Test Item Value Reference Range Interpretation Comments Split Point Rapid (test code = Split 0.6 min Point Rapid) [facility] ParkwayOcyovubFVECYPQDEX3169-90-82 21:07:00 Test Item Value Reference Range Interpretation Comments PTT (test code = PTT) 30.6 s 22.9-35.8 [facility]fieldCebuynmOBRQKBFCFU2765-64-19 21:07:00 Test Item Value Reference Range Interpretation Comments INR (test code = INR) 1.03 1 0.85-1.17 [facility] ParkwayJndbhswBKPCHAOCLU8314-38-80 21:07:00 Test Item Value Reference Range Interpretation Comments PT (test code = PT) 13.3 s 12.0-14.7 [facility]fieldEmmqkbqZISTPHFNWY5872-31-51 21:07:0011.1[facility] HermannHEMATOLOGY 2018-04-13 21:07:0033.7[facility] QebitnpTBIPLIKGIF8024-62-40 21:07:004.04[facility] CbhsmaqDSBNTAHQDB0667-60-59 21:07:005.8[facility] NdttzkkTQAKPTZAMG4013-47-61 21:07:0017.2[facility] FpjigwfJAAZHBYIRX3308-20-39 21:07:71207Rmgtnfkc [place] OTKFYKDBJY2506-75-48 21:07:0032.9[facility] OgjsvycZXLPPCGDKL6796-51-24 21:07:00 83.5[facility] ReqohfeSUDJMAXBMT5465-70-19 21:07:00 Test Item Value Reference Range Interpretation Comments MCH (test code = MCH) 27.5 pg 27.0-31.0 [facility] DqspeocVUAGAXLCDC6236-24-35 21:07:008.4[facility] HermannHEMATOLOGY 2018-04-13 21:07:0056.3[facility] ZaloknyLDKVSAWYPL7524-81-90 21:07:0029.4[facility] IqjsxpvPNYQNMYCHK2169-66-71 21:07:009.6[facility] CvhrfnaKMEVPZJIYJ1647-54-12 21:07:004.0[facility] HermannBLOOD BANK GYETOIU2604-07-04 11:47:00Negative (01/31/18 6:47 AM)[facility]annBLOOD BANK FTOAHRX6954-17-88 11:47:00Negative (01/31/18 6:47 AM)[facility] HermannCHEM GNLOF5368-41-28 11:41:08279Gfsrhfjh HermannCHEM LMCHE3852-16-74 11:41:008.3[facility] HermannCHEM OEMXP5016-75-51 11:41:71097Aflabxkt HermannCHEM OANFY6674-27-67 11:41:0027[facility] HermannCHEM TMQFT8782-63-98 11:41:0095[facility] HermannCHEM RMEEY9632-55-58 11:41:004.2 [facility] HermannCHEM TBSFV2270-13-64 11:41:000.65[facility] HermannCHEM PANEL 2018-01-31 11:41:0011[facility] HermannCHEM ULJAJ0204-79-65 11:41:51295Lqshsrnn HermannCHEM UHUBB2267-04-46 11:41:008.2[facility] HermannCHEM RXFWL6537-33-71 11:41:000.8[facility] HermannDRUG CPJUKE6303-05-78 11:41:00See Note (01/31/18 6:41 AM)[facility] HermannDRUG IYREJA7705-48-28 11:41:00Negative *NA*(01/31/18 6:41 AM) [facility] HermannDRUG OSQVIS9038-88-57 11:41:00Negative *NA*(01/31/18 6:41 AM) [facility]annDR[facility] IRGSJS4250-31-60 11:41:00Negative *NA*(01/31/18 6:41 AM) [facility]annDR[facility] CECMKD4988-12-41 11:41:00Negative *NA*(01/31/18 6:41 AM) [facility]annDR[facility] LHXIEV8537-29-55 11:41:00Negative *NA*(01/31/18 6:41 AM) [facility]annDR[facility] DJYCAO5730-19-37 11:41:00Negative *NA*(01/31/18 6:41 AM) [facility]annDRUG YYHKEB4649-93-92 11:41:00Negative *NA*(01/31/18 6:41 AM) [facility] ArknlvyAMBVQTMATZSMP5389-06-19 11:41:00Negative *NA*(01/31/18 6:41 AM) [facility] PjmiqxrXMIEBSOJPJ5519-36-09 11:41:000.7[facility] HermannHEMATOLOGY 2018-01-31 11:41:002.9[facility] EeeojzgGXYNTVBUHS7584-24-47 11:41:000.2[facility] CbtnuwlNGQIDUQXLY3521-71-43 11:41:0055.3[facility] NvheajeMJGLYRVNNH9775-76-27 11:41:0033.5[facility] IdkuqwqHDQZBFVFOC5692-46-77 11:41:008.5[facility] [place] ZEEUMZBKZI7404-99-76 11:41:000.4[facility] OitlmibUEUVUAFGMY8445-46-18 11:41:002.3 [facility] ZtzscpbZNXSCTEVVO7399-08-57 11:41:004.9[facility] HermannHEMATOLOGY 2018-01-31 11:41:008.8[facility] QtitwtjHOKPHOXHDS6710-17-22 11:41:00 Test Item Value Reference Range Interpretation Comments MCH (test code = MCH) 28.1 pg 27.0-31.0 [facility] WkvjylmZZFVYCHOIU0477-33-58 11:41:0032.9[facility] HermannHEMATOLOGY 2018-01-31 11:41:0015.9[facility] CvramvqPUBPHWIVJV6417-22-61 11:41:004.10[facility] HkvkpsgYANVMTUZMT7882-68-03 11:41:0034.9[facility] VqgakncQVXQHXZMKG5336-67-33 11:41:0085.2[facility] WsjxyunMMWDGHXFWL8145-67-26 11:41:0011.5[facility] UOLUPNIUPQ6449-15-20 11:41:09542Whkzzqio HermannCHEM GSWQR7391-18-54 11:41:70362 [facility] HermannCHEM QVFLY2874-11-76 11:41:008.3[facility] HermannCHEM PANEL 2018-01-31 11:41:41181Spfyezcv HermannCHEM IJOUH1812-83-68 11:41:0027[facility] HermannCHEM HRXTC3977-94-37 11:41:0095[facility] HermannCHEM ICCWG8905-14-38 11:41:004.2[facility] HermannCHEM MESIW6425-00-47 11:41:000.65[facility] RZIAGQIBEP9910-56-02 11:41:007.7[facility] HermannCHEM GRRMS3746-57-27 11:41:0011 [facility] HermannCHEM HXAEP9751-91-63 11:41:51020Qyuuqyqv HermannCHEM PANEL 2018-01-31 11:41:008.2[facility] HermannCHEM RFEBT3741-09-00 11:41:000.8[facility] HermannDRUG YUBZIR0955-30-88 11:41:00See Note (01/31/18 6:41 AM)[facility] RAQOJD6273-52-45 11:41:00Negative *NA*(01/31/18 6:41 AM)[facility] SNPRDD6874-02-22 11:41:00Negative *NA*(01/31/18 6:41 AM)[facility] MZBGFS5746-14-23 11:41:00Negative *NA*(01/31/18 6:41 AM)[facility] [place] [facility] BUJVNG7305-65-51 11:41:00Negative *NA*(01/31/18 6:41 AM)[facility] [place] DR[facility] HBDTOY3220-26-48 11:41:00Negative *NA*(01/31/18 6:41 AM)[facility] [place] UPLDAUKDPA8775-25-56 11:41:00 Test Item Value Reference Range Interpretation Comments ACT (TEG) Rapid (test code = ACT (TEG) 105 s 86-118 Rapid) [facility] HermannDRUG BRDHYI2158-15-53 11:41:00Negative *NA*(01/31/18 6:41 AM) [facility] HermannDRUG FNTHME5783-54-93 11:41:00Negative *NA*(01/31/18 6:41 AM) [facility] DashggoWOSXSZUYQPAPB8017-24-16 11:41:00Negative *NA*(01/31/18 6:41 AM) [facility] ZkdmqrlRIEMLXGYTW2500-50-11 11:41:000.7[facility] HermannHEMATOLOGY 2018-01-31 11:41:002.9[facility] RiljbgdNRXNTKUKSU9478-25-86 11:41:000.2[facility] GbyekpoKDTFIUNALN0409-34-59 11:41:0055.3[facility] EkmtihwGGLXRYKXBV7862-83-16 11:41:0033.5[facility] LmzzsclAKWENDSKHL1571-88-85 11:41:008.5[facility] KMWIIAIAIL1811-87-36 11:41:000.4[facility] ZmdpzvwXOVFVDEMRQ3933-07-36 11:41:00 Test Item Value Reference Range Interpretation Comments Angle Rapid (test code = Angle 75 degrees 64-80 Rapid) [facility] LckeqhrXZLASCMRZE0669-73-03 11:41:002.3[facility] HermannHEMATOLOGY 2018-01-31 11:41:004.9[facility] RorawxcDCSSXAHBIH0442-22-85 11:41:008.8[facility] NolahdmZWLZWMRZJE0693-90-48 11:41:00 Test Item Value Reference Range Interpretation Comments MCH (test code = MCH) 28.1 pg 27.0-31.0 [facility] SdmbavyTFNQAOQIHU0005-27-27 11:41:0032.9[facility] HermannHEMATOLOGY 2018-01-31 11:41:0015.9[facility] GlcqejvSUDESLOUQI1703-74-83 11:41:004.10[facility] JmprjwqBLZXUHQGOM5523-97-76 11:41:0034.9[facility] JjebvqhBOZAETUDTE5053-11-52 11:41:0085.2[facility] GpiqlvoECFXJMOEKA2199-46-50 11:41:0011.5[facility] QWQZGTXTMX3002-02-98 11:41:00 Test Item Value Reference Range Interpretation Comments K-time Rapid (test code = K-time 1.2 min 0.6-2.3 Rapid) [facility]wayRymdduiZKWKJVSUFL1205-97-01 11:41:91527Wkkudcej [facility]annHE[facility] 2018-01-31 11:41:007.7[facility] LohwwauLSUSJTIGVL3942-21-81 11:41:00 Test Item Value Reference Range Interpretation Comments ACT (TEG) Rapid (test code = ACT (TEG) 105 s 86-118 Rapid) [facility]QqrrwcyLRNJDXTGTM3978-63-59 11:41:00 Test Item Value Reference Range Interpretation Comments Angle Rapid (test code = Angle 75 degrees 64-80 Rapid) [facility] HospitalWxfetosFVMGOVOWHK5297-36-19 11:41:00 Test Item Value Reference Range Interpretation Comments K-time Rapid (test code = K-time 1.2 min 0.6-2.3 Rapid) [facility]leYduoirpVICAEUSYUF8863-57-17 11:41:00 Test Item Value Reference Range Interpretation Comments R-time Rapid (test code = R-time 0.6 min 0.4-0.7 Rapid) [facility] ParkwayLrinfcvQAWPQCJNQT3122-47-87 11:41:00 Test Item Value Reference Range Interpretation Comments Split Point Rapid (test code = Split 0.4 min Point Rapid) [facility] HospitalYbuzbngQZTTNQZWJG4941-40-50 11:41:001.3[facility]annHE[facility] 2018-01-31 11:41:008.2Mem[facility] SystemUkgtizfUIWAHMVZES5089-74-28 11:41:00 Test Item Value Reference Range Interpretation Comments Max Amplitude Rapid (test code = Max 62 mm 52-71 Amplitude Rapid) [facility] HospitalZdlddmzJTEXFOCBLH0326-95-53 11:41:00 Test Item Value Reference Range Interpretation Comments R-time Rapid (test code = R-time 0.6 min 0.4-0.7 Rapid) [facility] HqkpfbbYFBPTHMFTO3512-10-88 11:41:00Negative *NA*(01/31/18 6:41 AM) [facility]annURINE AND ZUDJH6912-84-75 11:41:000.2[facility]annURINE AND WEPXJ1649-32-06 11:41:00Trace *ABN*(01/31/18 6:41 AM)[facility]annURINE AND TLKKR6242-14-13 11:41:00Negative *NA*(01/31/18 6:41 AM)[facility] [place] IBALBMZAAA3071-54-55 11:41:00 Test Item Value Reference Range Interpretation Comments Split Point Rapid (test code = Split 0.4 min Point Rapid) [facility]UR[facility] AND HWLUO6270-36-06 11:41:00Negative (01/31/18 6:41 AM) [facility]UR[facility] AND UVQWM7316-63-24 11:41:00 Test Item Value Reference Range Interpretation Comments UA pH (test code = UA pH) 7.0 1 5.0-8.0 [facility]UR[facility] AND AMSWH6596-83-34 11:41:00Negative *NA*(01/31/18 6:41 AM)[facility]UR[facility] AND CEQUL1219-30-82 11:41:00Negative (01/31/18 6:41 AM) [facility] AND GAJER5650-79-76 11:41:00Trace *ABN*(01/31/18 6:41 AM) [facility] AND LEZJH5908-16-68 11:41:00Negative (01/31/18 6:41 AM) [facility]UR[facility] AND SAEFX5794-44-13 11:41:00 Test Item Value Reference Range Interpretation Comments UA Spec Grav (test code = UA Spec 1.010 1 Grav) [facility]UR[facility] AND QDYJJ8688-40-74 11:41:00Yellow *NA*(01/31/18 6:41 AM) [facility] AND VHTRB0747-36-49 11:41:00Clear (01/31/18 6:41 AM) [facility] ZcnhjgwVALMNCIGID7978-11-24 11:41:001.3[facility] HermannHEMATOLOGY 2018-01-31 11:41:008.2[facility] QqscevdLUWDTBQQWZ4672-61-48 11:41:00 Test Item Value Reference Range Interpretation Comments Max Amplitude Rapid (test code = Max 62 mm 52-71 Amplitude Rapid) [facility] IxpwgmwCWJHOAMJRP4394-76-67 11:41:00Negative *NA*(01/31/18 6:41 AM) [facility]UR[facility] AND OEWCE4636-71-40 11:41:000.2[facility]annUR[facility] AND QIOMQ1352-03-90 11:41:00Trace *ABN*(01/31/18 6:41 AM)[facility]UR[facility] AND SJPLT6442-34-43 11:41:00Negative *NA*(01/31/18 6:41 AM)[facility]UR[facility] AND IODDU3605-37-57 11:41:00Negative (01/31/18 6:41 AM)[facility]UR[facility] AND GWHQS2555-28-22 11:41:00 Test Item Value Reference Range Interpretation Comments UA pH (test code = UA pH) 7.0 1 5.0-8.0 [facility] AND WHYCK3259-29-43 11:41:00Negative *NA*(01/31/18 6:41 AM)[facility]UR[facility] AND OBPNX9076-57-58 11:41:00Negative (01/31/18 6:41 AM) [facility] AND WGMMZ3799-77-96 11:41:00Trace *ABN*(01/31/18 6:41 AM) [facility] AND JDZZY6464-00-15 11:41:00Negative (01/31/18 6:41 AM) [facility] AND CYXLZ4128-59-17 11:41:00 Test Item Value Reference Range Interpretation Comments UA Spec Grav (test code = UA Spec 1.010 1 Grav) [facility] AND TXAYY2761-45-52 11:41:00Yellow *NA*(01/31/18 6:41 AM) [facility] AND JCENB6847-03-48 11:41:00Clear (01/31/18 6:41 AM) [facility] HermannCHEM AWUIA5535-04-93 11:15:0013.6[facility] HermannCHEM PANEL 2017-06-28 11:15:007.2[facility] HermannCHEM PBROQ2557-56-90 11:15:0056[facility] HermannCHEM BVJKL6250-87-35 11:15:000.2[facility] HermannCHEM ZYUOZ6371-29-69 11:15:003.6[facility] HermannCHEM BMXGE1652-37-62 11:15:58617Qsyshbvt HermannCHEM JZAND3023-30-57 11:15:008.9[facility] HermannCHEM MVUDJ9352-61-35 11:15:20899 [facility] HermannCHEM BLMXG4359-82-69 11:15:50486Yjdpumjk HermannCHEM PANEL 2017-06-28 11:15:0024[facility] HermannCHEM ZAPBM1029-91-20 11:15:0020[facility] HermannCHEM UZSZQ3233-54-67 11:15:0024[facility] HermannCHEM SWNUL7142-88-81 11:15:003.7[facility] HermannCHEM JADWX6907-80-81 11:15:000.63[facility] HermannCHEM DZZBK3000-46-92 11:15:008[facility] HermannCHEM FPSTF5879-53-07 11:15:48866 [facility] PurrnroBKALJKWFUHUBZ1433-70-42 11:15:00Negative *NA*(06/28/17 6:15 AM) [facility] SzpegmlZMZNGLUTNU1115-89-96 11:15:0015.4[facility] HermannHEMATOLOGY 2017-06-28 11:15:007.7[facility] GmjxpveYDJLIHMWXJ4949-24-80 11:15:00669Meoucsdk LzmcmeiEVTJEFSXGH1456-97-25 11:15:0087.1[facility] XctxzfbBFQCYVEKOI3964-70-72 11:15:0037.9[facility] McazeylPOCCJNFCAU0535-16-45 11:15:0033.3[facility] [place] JDSWXRTDQZ9022-89-41 11:15:00 Test Item Value Reference Range Interpretation Comments MCH (test code = MCH) 29.0 pg 27.0-31.0 [facility] GzrzxopTPKXIZDVRV3024-48-65 11:15:0012.6[facility] HermannHEMATOLOGY 2017-06-28 11:15:004.35[facility] FcfdbcrVHVMYMAHIF1667-31-89 11:15:0010.7[facility] TioxwakLMNVKRTNZO6022-36-13 11:15:000.8[facility] TcoeltoNNCIVXMBPJ8203-97-13 11:15:000.2[facility] BvejkbuSQWFMJXSLM9969-34-37 11:15:0072.1[facility] [place] WHCXIFJAJA0576-88-11 11:15:007.7[facility] WtfthepVJLDXQZJBD2553-00-66 11:15:002.0 [facility] IhqrlnaZXVGLETNJZ7331-81-02 11:15:000.4[facility] HermannHEMATOLOGY 2017-06-28 11:15:007.2[facility] QfotpheHHROQLAOTN0629-40-76 11:15:001.7[facility] BpkpzmkXWWPIKHUDY0093-51-36 11:15:0018.6[facility]annURINE AND STOOL 2017-06-28 11:15:00Colorless *NA*(06/28/17 6:15 AM)[facility]UR[facility] AND UKFLS3814-75-89 11:15:00 Test Item Value Reference Range Interpretation Comments UA Spec Grav (test code = UA Spec 1.002 1 Grav) [facility] AND GVUKY6774-60-36 11:15:00Clear (06/28/17 6:15 AM) [facility] QRLOP9441-31-95 11:15:00 Test Item Value Reference Range Interpretation Comments UA pH (test code = UA pH) 6.0 1 5.0-8.0 [facility]UR[facility] AND GRVUH5327-43-81 11:15:00Moderate *ABN*(06/28/17 6:15 AM)[facility]UR[facility] AND SAUYM7538-77-93 11:15:00Negative *NA*(06/28/17 6:15 AM)[facility]UR[facility] AND WJRAY0983-62-27 11:15:00Negative (06/28/17 6:15 AM) [facility] GYACD1267-08-56 11:15:001[facility]annUR[facility] AND ALWPQ2929-04-66 11:15:00Negative (06/28/17 6:15 AM)[facility]UR[facility] AND QAMXJ2321-58-39 11:15:002[facility]annUR[facility] AND HFPTF6666-00-42 11:15:001 [facility] HermannCHEM KVPWB2791-35-03 11:15:71125Qvftwman HermannCHEM PANEL 2017-06-28 11:15:003.5[facility] HermannCHEM JZGMR1627-67-50 11:15:00 Test Item Value Reference Range Interpretation Comments A/G Ratio (test code = A/G Ratio) 1.1 1 0.7-1.6 [facility] HermannCHEM JMUNE5441-12-91 11:15:00 Test Item Value Reference Range Interpretation Comments B/C Ratio (test code = B/C Ratio) 13 1 6-25 [facility] HermannCHEM TJETB4583-91-49 11:15:0013.6[facility] HermannCHEM PANEL 2017-06-28 11:15:007.2[facility] HermannCHEM ARSUJ5059-55-95 11:15:0056[facility] HermannCHEM EWWSR6724-71-44 11:15:000.2[facility] HermannCHEM GNHQX7800-33-18 11:15:003.6[facility] HermannCHEM CWHTV5715-63-51 11:15:97290Khdqkilv HermannCHEM FFCSP2001-04-16 11:15:008.9[facility] HermannCHEM HULBP3734-44-67 11:15:77744 [facility] HermannCHEM RYWJC6405-45-72 11:15:22788Zxvdtiuu HermannCHEM PANEL 2017-06-28 11:15:0024[facility] HermannCHEM DBEPD0225-46-93 11:15:0020[facility] HermannCHEM XYYAX7695-64-85 11:15:0024[facility] HermannCHEM ZYCOD2288-08-13 11:15:003.7[facility] HermannCHEM MHYZP7815-50-68 11:15:000.63[facility] HermannCHEM KGAAI4158-28-86 11:15:008[facility] HermannCHEM TBXGC5279-92-93 11:15:00718 [facility] EsnohcvBOWVXIXTFGMZR4772-39-69 11:15:00Negative *NA*(06/28/17 6:15 AM) [facility] DtpdsduNMYJEODZXH5616-37-65 11:15:0015.4[facility]annHEMATOLOGY 2017-06-28 11:15:007.7[facility] UqjzvuwUXMIPMGZZZ2584-63-10 11:15:61243Kyxjxaus HjwfetuPVDFHTZUKL2864-70-39 11:15:0087.1[facility] MngtjhkWMWFMQOXGV2519-26-28 11:15:0037.9[facility] ZvlevugJCOALRDGYT5496-82-58 11:15:0033.3[facility] MXQSSVLATZ8365-93-26 11:15:00 Test Item Value Reference Range Interpretation Comments MCH (test code = MCH) 29.0 pg 27.0-31.0 [facility] XyagmjqUKCPBZCEGH2780-39-85 11:15:0012.6[facility] HermannHEMATOLOGY 2017-06-28 11:15:004.35[facility] OrqcjipKSYSQDUUYD0734-78-08 11:15:0010.7[facility] VcpbciqVZGICZIZFO7861-16-08 11:15:000.8[facility] YrsokvgCNOCUWQVES9044-19-56 11:15:000.2[facility] DkfhlhyEJIIBLERDE1512-37-83 11:15:0072.1[facility] [place] GDVTVJKCQQ2332-47-38 11:15:007.7[facility] EgaarknKTAWYEJPYD9538-42-41 11:15:002.0 [facility] OlgplzfJSMYMOQGHO8290-19-88 11:15:000.4[facility]annHEMATOLOGY 2017-06-28 11:15:007.2[facility] WdxvqmsJKZBZUEKPI2312-98-83 11:15:001.7[facility] ZormsfxVRINTGNCGG0891-77-07 11:15:0018.6[facility]annURINE AND STOOL 2017-06-28 11:15:00Colorless *NA*(06/28/17 6:15 AM)[facility] JVPOO3911-41-44 11:15:00 Test Item Value Reference Range Interpretation Comments UA Spec Grav (test code = UA Spec 1.002 1 Grav) [facility] IAADU9496-15-37 11:15:00Clear (06/28/17 6:15 AM) [facility] GOLLR6568-04-94 11:15:00 Test Item Value Reference Range Interpretation Comments UA pH (test code = UA pH) 6.0 1 5.0-8.0 [facility] VIFBK5875-32-18 11:15:00Moderate *ABN*(06/28/17 6:15 AM)[facility] BYCHB5287-10-35 11:15:00Negative *NA*(06/28/17 6:15 AM)[facility] OWBGC4785-42-65 11:15:00Negative (06/28/17 6:15 AM) [facility] PDDKQ8963-06-23 11:15:001[facility] FIEWE4785-69-72 11:15:00Negative (06/28/17 6:15 AM)[facility] YMBSJ7418-86-57 11:15:002[facility] LKPLP4422-25-49 11:15:001 [facility]annCHEM LPSZS5133-48-44 11:15:71562Rrqqdsoe HermannCHEM PANEL 2017-06-28 11:15:003.5[facility]annCHEM VLDRX4755-08-27 11:15:00 Test Item Value Reference Range Interpretation Comments A/G Ratio (test code = A/G Ratio) 1.1 1 0.7-1.6 [facility]annCHEM OWPEF5368-35-24 11:15:00 Test Item Value Reference Range Interpretation Comments B/C Ratio (test code = B/C Ratio) 13 1 6-25 [facility] [place]
[2020-11-24] MEDS ORDERED: KETOROLAC 30 MG/ML INJ ONE (04:27)
--- NOTE | 2020-11-24 04:58 | ER ---
Nurse's Notes [facility] Name: Dayami Espinosa Age: 50 yrs Sex: Female : 1970 Arrival Date: 11/24/2020 Time: 01:55 Bed 12 Private MD: Diagnosis: Back Pain, Chronic Presentation: 11/24 03:37 Chief complaint: Patient states: back pain that started yesterday, hx of chronic pain. em Coronavirus screen: Client denies travel out of the [place] in the last 14 days. Ebola Screen: Patient negative for fever greater than or equal to 101.5 degrees Fahrenheit, and additional compatible Ebola Virus Disease symptoms Patient denies exposure to infectious person. Patient denies travel to an Ebola-affected area in the 21 days before illness onset. No symptoms or risks identified at this time. Initial Sepsis Screen: Does the patient meet any 2 criteria? No. Patient's initial sepsis screen is negative. Does the patient have a suspected source of infection? No. Patient's initial sepsis screen is negative. Risk Assessment: Do you want to hurt yourself or someone else? Patient reports no desire to harm self or others. Onset of symptoms was November 24, 2020. 03:37 Method Of Arrival: Ambulatory em 03:37 Acuity: JAZMIN 4 em Historical: - Allergies: 03:38 Amoxicillin; em 03:38 Pseudoephedrine; em - PMHx: 03:38 Anemia; Bipolar disorder; gastritis; Ovarian cyst; em - Immunization history:: Client reports having NOT received the Covid vaccine. - Social history:: Smoking status: Patient reports the use of cigarette tobacco products, smokes one pack cigarettes per day. Screenin:37 Abuse screen: Denies threats or abuse. Nutritional screening: No deficits noted. em Tuberculosis screening: No symptoms or risk factors identified. Fall Risk None identified. Assessment: 03:37 General: Appears in no apparent distress. comfortable, Behavior is calm, cooperative, em appropriate for age. Pain: Complains of pain in lumbar area. Neuro: Level of Consciousness is awake, alert, obeys commands, Oriented to person, place, time, situation, Moves all extremities. Gait is steady. Cardiovascular: Capillary refill < 3 seconds Patient's skin is warm and dry. Respiratory: Airway is patent Respiratory effort is even, unlabored, Respiratory pattern is regular, symmetrical. Derm: Skin is intact, is healthy with good turgor, Skin is pink, warm \T\ dry. Musculoskeletal: Range of motion: intact in all extremities. Vital Signs: 03:37 Pulse 82; Resp 18; Temp 97.8; Pulse Ox 98% on R/A; Weight 47.63 kg; Height 5 ft. 3 in. em (160.02 cm); 03:39 BP 125 / 83; em 03:37 Body Mass Index 18.60 (47.63 kg, 160.02 cm) em ED Course: 01:55 Patient arrived in ED. mw2 03:37 Patient has correct armband on for positive identification. em 03:37 No provider procedures requiring assistance completed. Patient did not have IV access em during this emergency room visit. 03:38 Triage completed. em 03:39 Arm band placed on. em 03:51 Driss Melchor MD is Attending Physician. [facility] 03:57 Jonel Carlton RN is Primary Nurse. em Administered Medications: 04:09 Drug: Ketorolac 60 mg Route: IM; Site: right deltoid; em 05:15 Follow up: Response: No adverse reaction; Marked relief of symptoms; Pain is decreased em Outcome: 04:57 Discharge ordered by . [facility] 05:11 Discharged to home ambulatory. em 05:11 Condition: stable 05:11 Discharge instructions given to patient, Instructed on discharge instructions, follow up and referral plans. medication usage, Demonstrated understanding of instructions, follow-up care, medications, Prescriptions given X 1. 05:16 Patient left the ED. em Signatures: Jonel Carlton RN RN em Marcel Jefferson mw2 Driss Melchor MD MD 7
--- NOTE | 2020-11-24 04:58 | EDPHYS ---
Physician Documentation [facility] Name: Dayami Espinosa Age: 50 yrs Sex: Female : 1970 Arrival Date: 11/24/2020 Time: 01:55 Bed 12 Private MD: KHADIJAH Physician Driss Melchor HPI: 11/24 03:45 This 50 yrs old Female presents to ER via Ambulatory with complaints of Back mh7 Pain. 04:03 The patient presents with pain that is chronic, with no known mechanism of injury. The mh7 symptoms are located in the low back. Onset: The symptoms/episode began/occurred 1 week(s) ago. The pain does not radiate. Associated signs and symptoms: Pertinent negatives: abdominal pain, chest pain, constipation, dysuria, fever, headache, hematuria, incontinence, nausea, numbness, tingling, urinary retention, vomiting, weakness. The problem was sustained when bending over, from twisting. Modifying factors: The patient symptoms are alleviated by nothing, the patient symptoms are aggravated by bending. Severity of symptoms: At their worst the symptoms were moderate, 4 day(s) ago, in the emergency department the symptoms have improved, moderately. Historical: - Allergies: 03:38 Amoxicillin; em 03:38 Pseudoephedrine; em - PMHx: 03:38 Anemia; Bipolar disorder; gastritis; Ovarian cyst; em - Immunization history:: Client reports having NOT received the Covid vaccine. - Social history:: Smoking status: Patient reports the use of cigarette tobacco products, smokes one pack cigarettes per day. ROS: 03:45 Constitutional: Negative for fever, chills, and weight loss, Eyes: Negative for injury, mh7 pain, redness, and discharge, ENT: Negative for injury, pain, and discharge, Neck: Negative for injury, pain, and swelling, Cardiovascular: Negative for chest pain, palpitations, and edema, Respiratory: Negative for shortness of breath, cough, wheezing, and pleuritic chest pain, Abdomen/GI: Negative for abdominal pain, nausea, vomiting, diarrhea, and constipation, : Negative for injury, bleeding, discharge, and swelling, MS/Extremity: Negative for injury and deformity, Skin: Negative for injury, rash, and discoloration, Neuro: Negative for headache, weakness, numbness, tingling, and seizure, Psych: Negative for depression, anxiety, suicide ideation, homicidal ideation, and hallucinations, Allergy/Immunology: Negative for hives, rash, and allergies, Endocrine: Negative for neck swelling, polydipsia, polyuria, polyphagia, and marked weight changes, Hematologic/Lymphatic: Negative for swollen nodes, abnormal bleeding, and unusual bruising. Exam: 03:45 Constitutional: This is a well developed, well nourished patient who is awake, alert, mh7 and in no acute distress. Head/Face: Normocephalic, atraumatic. Eyes: Pupils equal round and reactive to light, extra-ocular motions intact. Lids and lashes normal. Conjunctiva and sclera are non-icteric and not injected. Cornea within normal limits. Periorbital areas with no swelling, redness, or edema. Neck: Trachea midline, no thyromegaly or masses palpated, and no cervical lymphadenopathy. Supple, full range of motion without nuchal rigidity, or vertebral point tenderness. No Meningismus. Chest/axilla: Normal chest wall appearance and motion. Nontender with no deformity. No lesions are appreciated. Cardiovascular: Regular rate and rhythm with a normal S1 and S2. No gallops, murmurs, or rubs. Normal PMI, no JVD. No pulse deficits. Respiratory: Lungs have equal breath sounds bilaterally, clear to auscultation and percussion. No rales, rhonchi or wheezes noted. No increased work of breathing, no retractions or nasal flaring. Abdomen/GI: Soft, non-tender, with normal bowel sounds. No distension or tympany. No guarding or rebound. No evidence of tenderness throughout. 03:45 Skin: Warm, dry with normal turgor. Normal color with no rashes, no lesions, and no evidence of cellulitis. MS/ Extremity: Pulses equal, no cyanosis. Neurovascular intact. Full, normal range of motion. Neuro: Awake and alert, GCS 15, oriented to person, place, time, and situation. Cranial nerves II-XII grossly intact. Motor strength 5/5 in all extremities. Sensory grossly intact. Cerebellar exam normal. Normal gait. Psych: Awake, alert, with orientation to person, place and time. Behavior, mood, and affect are within normal limits. 03:45 Back: pain, that is mild, of the lumbar area, ROM is painful, with flexion, normal spinal alignment noted, CVA tenderness, is absent, vertebral tenderness, is not appreciated, muscle spasm, is not present, Straight leg raises: of both lower extremities does not illicit pain. Vital Signs: 03:37 Pulse 82; Resp 18; Temp 97.8; Pulse Ox 98% on R/A; Weight 47.63 kg; Height 5 ft. 3 in. em (160.02 cm); 03:39 BP 125 / 83; em 03:37 Body Mass Index 18.60 (47.63 kg, 160.02 cm) em MDM: 04:55 Differential diagnosis: arthritis, chronic back pain, Osteoarthritis sprain, mh7 Musculoskeletal pain. Data reviewed: vital signs, nurses notes, old medical records. Data interpreted: Pulse oximetry: on room air is 98 %. Interpretation: normal. Counseling: I had a detailed discussion with the patient and/or guardian regarding: the historical points, exam findings, and any diagnostic results supporting the discharge/admit diagnosis, the need for outpatient follow up. Response to treatment: the patient's symptoms have markedly improved after treatment. 04:57 Patient medically screened. [facility] Administered Medications: 04:09 Drug: Ketorolac 60 mg Route: IM; Site: right deltoid; em 05:15 Follow up: Response: No adverse reaction; Marked relief of symptoms; Pain is decreased em Disposition Summary: 11/24/20 04:57 Discharge Ordered Location: Home [facility] Problem: an acute exacerbation [facility] Symptoms: have improved [facility] Condition: Stable [facility] Diagnosis - Back Pain, Chronic 7 Followup: [facility] - With: Private Physician - When: 1 - 2 days - Reason: Worsening of condition, Recheck today's complaints, Continuance of care, Re-evaluation by your physician Discharge Instructions: - Discharge Summary Sheet [facility] - Chronic Back Pain, [id number] [facility] Forms: - Medication Reconciliation Form [facility] - Thank You Letter [facility] - Antibiotic Education [facility] - Prescription Opioid Use [facility] Prescriptions: - Diclofenac Sodium 75 mg Oral tablet,delayed release (DR/EC) - take 1 tablet by ORAL route 2 times per day As needed; 10 tablet; Refills: 0, mh7 Product Selection Permitted Signatures: Jonel Carlton RN RN em Holmes, Maurice, MD MD [facility]
[2020-11-24 05:21] VITALS: TEMP 97.8; O2SAT 98
[2020-11-24 05:22] VITALS: BP 125/83
== END 2020-11-24 05:16 | disposition home or self-care (01) ==
LOC: ER 01:51
DX: G89.29 Other chronic pain (principal); F17.210 Nicotine dependence, cigarettes, uncomplicated; Z88.1 Allergy status to other antibiotic agents; Z88.8 Allergy status to other drugs, medicaments and biological substances
CPT/HCPCS: 96372; 99283

== ENCOUNTER 2021-02-05 03:29 | Emergency (ER) | payer SELFPAY ==
[2021-02-05 04:34] LABS: Urine Blood Trace-intact (Negative); Urine Glucose Negative (Negative); Urine Protein Negative (Negative)
[2021-02-05] MEDS ORDERED: NA CHLORIDE 0.9% 1,000 ML ONE (04:41)
[2021-02-05 04:57] LABS: Barbiturates NEGATIVE (NEGATIVE); Benzodiazepines NEGATIVE (NEGATIVE); Cocaine NEGATIVE (NEGATIVE); METHAMPHETAM NEGATIVE (NEGATIVE); Methadone NEGATIVE (NEGATIVE); Opiates NEGATIVE (NEGATIVE); Phencyclidine NEGATIVE (NEGATIVE); THC Cannibis NEGATIVE (NEGATIVE)
[2021-02-05 05:12] LABS: Absolute Lymphocytes (CBC) 1.9 K/uL (0.7-4.9); Basophils % 0.9 % (0-1.3); Hematocrit 34.5 % (36.0-45.0); Lymphocytes % 24.2 % (15.3-44.8); MPV 8.2 fL (7.6-11.3); RBC Red Blood Cell Count 4.17 M/uL (3.86-4.86)
[2021-02-05 05:16] LABS: Protime INR 1.03
[2021-02-05 05:41] LABS: ALT/SGPT 16 U/L (12-78); AST/SGOT 10 U/L (15-37); Albumin 3.3 g/dL (3.4-5.0); Alkaline Phosphatase 48 U/L (45-117); BUN Blood Urea Nitrogen 12 mg/dL (7-18); Bicarbonate 24 mmol/L (21-32); Bilirubin Direct < 0.1 mg/dL (0-0.2); Bilirubin Total 0.3 mg/dL (0.2-1.0); Glucose Level 92 mg/dL (74-106); Potassium 3.7 mmol/L (3.5-5.1); Protein, Total 6.6 g/dL (6.4-8.2); Sodium Level 143 mmol/L (136-145)
[2021-02-05 05:51] LABS: Urine Bacteria >50 /HPF (<20)
[2021-02-05 05:52] LABS: Urine RBC NONE SEEN /HPF (NONE SEEN)
--- NOTE | 2021-02-05 06:06 | EDPHYS ---
Physician Documentation [facility] Name: Dayami Espinosa Age: 51 yrs Sex: Female : 1970 Arrival Date: 02/05/2021 Time: 03:44 Bed 5 Private MD: ED Physician Derrek Martines HPI: 02/05 04:59 This 51 yrs old Female presents to ER via EMS with unknown complaint. pkl 04:59 The patient complains of pain to the top of head and forehead. The patient describes pkl the headache as aching. Onset: The symptoms/episode began/occurred today. Associated signs and symptoms: Pertinent positives: nausea. JAILER: 03:52 LMP N/A - Irregular menses df1 Historical: - Allergies: 03:50 Amoxicillin; df1 03:50 Pseudoephedrine; df1 - Home Meds: 03:50 Depakote 250 mg Oral chew 1 tab 2 times per day for Bipolar Disorder in Remission df1 [Active]; - PMHx: 03:50 Anemia; Bipolar disorder; gastritis; Ovarian cyst; df1 - PSHx: 03:50 brain surgery; df1 - Immunization history:: Adult Immunizations not immunized, Client reports having NOT received the Covid vaccine. - Social history:: Smoking status: Patient reports the use of cigarette tobacco products, smokes one pack cigarettes per day. Patient uses alcohol, only on a social basis. ROS: 04:59 Eyes: Negative for injury, pain, redness, and discharge, ENT: Negative for injury, pkl pain, and discharge, Neck: Negative for injury, pain, and swelling, Cardiovascular: Negative for chest pain, palpitations, and edema, Respiratory: Negative for shortness of breath, cough, wheezing, and pleuritic chest pain. 04:59 Abdomen/GI: Positive for nausea. 04:59 Back: Negative for injury or acute deformity, acute changes. 04:59 : Negative for urinary symptoms. 04:59 MS/extremity: Negative for acute changes. 04:59 Skin: Negative for rash. 04:59 Neuro: Positive for headache. Exam: 04:59 Head/Face: Normocephalic, atraumatic. Eyes: Pupils equal round and reactive to light, pkl extra-ocular motions intact. Lids and lashes normal. Conjunctiva and sclera are non-icteric and not injected. Cornea within normal limits. Periorbital areas with no swelling, redness, or edema. ENT: Nares patent. No nasal discharge, no septal abnormalities noted. Tympanic membranes are normal and external auditory canals are clear. Oropharynx with no redness, swelling, or masses, exudates, or evidence of obstruction, uvula midline. Mucous membranes moist. Neck: Trachea midline, no thyromegaly or masses palpated, and no cervical lymphadenopathy. Supple, full range of motion without nuchal rigidity, or vertebral point tenderness. No Meningismus. Chest/axilla: Normal chest wall appearance and motion. Nontender with no deformity. No lesions are appreciated. Cardiovascular: Regular rate and rhythm with a normal S1 and S2. No gallops, murmurs, or rubs. Normal PMI, no JVD. No pulse deficits. Respiratory: Lungs have equal breath sounds bilaterally, clear to auscultation and percussion. No rales, rhonchi or wheezes noted. No increased work of breathing, no retractions or nasal flaring. Abdomen/GI: Soft, non-tender, with normal bowel sounds. No distension or tympany. No guarding or rebound. No evidence of tenderness throughout. Back: No spinal tenderness. No costovertebral tenderness. Full range of motion. Skin: Warm, dry with normal turgor. Normal color with no rashes, no lesions, and no evidence of cellulitis. MS/ Extremity: Pulses equal, no cyanosis. Neurovascular intact. Full, normal range of motion. Neuro: Awake and alert, GCS 15, oriented to person, place, time, and situation. Cranial nerves II-XII grossly intact. Motor strength 5/5 in all extremities. Sensory grossly intact. Cerebellar exam normal. Normal gait. Vital Signs: 03:46 BP 113 / 76; Pulse 78; Resp 18; Temp 97.8; Pulse Ox 100% on R/A; Weight 48.08 kg; df1 Height 5 ft. 3 in. (160.02 cm); Pain 10/10; 04:00 BP 95 / 63; Pulse 74; Resp 18; Pulse Ox 99% on R/A; lc1 05:00 BP 107 / 68; Pulse 72; Resp 16; Pulse Ox 99% on R/A; lc1 05:25 BP 98 / 62; Pulse 71; Resp 18; Pulse Ox 99% on R/A; df1 03:46 Body Mass Index 18.78 (48.08 kg, 160.02 cm) df1 MDM: 03:49 Patient medically screened. pkl 06:03 Data reviewed: vital signs, nurses notes, lab test result(s). pkl 02/05 04:16 Order name: Acetaminophen pkl 02/05 04:16 Order name: Basic Metabolic Panel pkl 02/05 04:16 Order name: CBC with Diff; Complete Time: 06:01 pkl 02/05 04:16 Order name: ETOH Level; Complete Time: 06:01 pkl 02/05 04:16 Order name: Hepatic Function; Complete Time: 06:01 pkl 02/05 04:16 Order name: PT-INR; Complete Time: 06:01 pkl 02/05 04:16 Order name: Ptt, Activated; Complete Time: 06:01 pkl 02/05 04:16 Order name: Salicylate; Complete Time: 06:01 pkl 02/05 04:16 Order name: Urine Drug Screen; Complete Time: 06:01 pkl 02/05 04:16 Order name: Acetaminophen Level; Complete Time: 06:01 EDMS 02/05 04:16 Order name: Basic Metabolic Panel; Complete Time: 06:01 EDMS 02/05 04:34 Order name: Urine Dipstick-Ancillary; Complete Time: 04:54 EDMS 02/05 04:55 Order name: Urine Microscopic Only; Complete Time: 06:01 pkl 02/05 04:55 Order name: Urine Culture pkl 02/05 04:16 Order name: EKG; Complete Time: 04:16 pkl 02/05 04:16 Order name: EKG - Nurse/Tech; Complete Time: 04:40 pkl 02/05 04:16 Order name: IV Saline Lock; Complete Time: 04:40 pkl 02/05 04:16 Order name: Labs collected and sent; Complete Time: 04:40 pkl 02/05 04:16 Order name: Urine Dipstick-Ancillary (obtain specimen); Complete Time: 04:40 pkl Administered Medications: 04:40 Drug: NS 0.9% 1000 ml Route: IV; Rate: 125 ml/hr; Site: right antecubital; lc1 06:09 Drug: Tylenol 650 mg Route: PO; lc1 06:10 Follow up: Response: No adverse reaction lc1 Disposition Summary: 02/05/21 06:05 Discharge Ordered Location: Home pkl Problem: new pkl Symptoms: have improved pkl Condition: Stable pkl Diagnosis - Acute headache pkl Followup: pkl - With: Private Physician - When: 2 - 3 days - Reason: Re-evaluation by your physician Forms: - Medication Reconciliation Form pkl - Thank You Letter pkl - Antibiotic Education pkl - Prescription Opioid Use pkl Signatures: Dispatcher [employer] EDDerrek Hua MD MD pkl Qiana Gonzalez lc1 Uma Rose df1 Corrections: (The following items were deleted from the chart) 04:49 04:16 Suicide Screening ([place]) ordered. pkl df1
--- NOTE | 2021-02-05 06:06 | ER ---
Nurse's Notes [facility] Name: Dayami Espinosa Age: 51 yrs Sex: Female : 1970 Arrival Date: 02/05/2021 Time: 03:44 Bed 5 Private MD: Diagnosis: Acute headache Presentation: 02/05 03:46 Chief complaint: Patient states: shakes/nausea/headache. Coronavirus screen: Vaccine df1 status: Patient reports being unvaccinated. Client denies travel out of the [place] in the last 14 days. At this time, the client does not indicate any symptoms associated with coronavirus-19. Ebola Screen: Patient negative for fever greater than or equal to 101.5 degrees Fahrenheit, and additional compatible Ebola Virus Disease symptoms Patient denies exposure to infectious person. Patient denies travel to an Ebola-affected area in the 21 days before illness onset. Initial Sepsis Screen: Does the patient meet any 2 criteria? No. Patient's initial sepsis screen is negative. Does the patient have a suspected source of infection? No. Patient's initial sepsis screen is negative. Risk Assessment: Do you want to hurt yourself or someone else? Patient reports no desire to harm self or others. Onset of symptoms was February 03, 2021. 03:46 Method Of Arrival: EMS: [facility] df1 03:46 Acuity: JAZMIN 4 df1 Triage Assessment: 03:51 General: Appears unkempt, Behavior is calm, cooperative. Pain: Complains of pain in df1 scalp. BACK HAND: 03:52 LMP N/A - Irregular menses df1 Historical: - Allergies: 03:50 Amoxicillin; df1 03:50 Pseudoephedrine; df1 - Home Meds: 03:50 Depakote 250 mg Oral chew 1 tab 2 times per day for Bipolar Disorder in Remission df1 [Active]; - PMHx: 03:50 Anemia; Bipolar disorder; gastritis; Ovarian cyst; df1 - PSHx: 03:50 brain surgery; df1 - Immunization history:: Adult Immunizations not immunized, Client reports having NOT received the Covid vaccine. - Social history:: Smoking status: Patient reports the use of cigarette tobacco products, smokes one pack cigarettes per day. Patient uses alcohol, only on a social basis. Screenin:51 Abuse screen: Denies threats or abuse. Nutritional screening: No deficits noted. df1 Tuberculosis screening: No symptoms or risk factors identified. Fall Risk None identified. Assessment: 04:54 General: Appears slender, Behavior is calm, cooperative, Reports feeling ill for 0-12 lc1 hours. Pain: Complains of pain in scalp. Neuro: Level of Consciousness is awake, alert, obeys commands, Oriented to person, place, time, situation, Moves all extremities. Cardiovascular: No deficits noted. Respiratory: No deficits noted. Trachea midline Respiratory effort is even, unlabored, Respiratory pattern is regular, symmetrical. GI: No signs and/or symptoms were reported involving the gastrointestinal system. : No signs and/or symptoms were reported regarding the genitourinary system. EENT: No signs and/or symptoms were reported regarding the EENT system. Derm: No signs and/or symptoms reported regarding the dermatologic system. Musculoskeletal: No signs and/or symptoms reported regarding the musculoskeletal system. Vital Signs: 03:46 BP 113 / 76; Pulse 78; Resp 18; Temp 97.8; Pulse Ox 100% on R/A; Weight 48.08 kg; df1 Height 5 ft. 3 in. (160.02 cm); Pain 10/10; 04:00 BP 95 / 63; Pulse 74; Resp 18; Pulse Ox 99% on R/A; lc1 05:00 BP 107 / 68; Pulse 72; Resp 16; Pulse Ox 99% on R/A; lc1 05:25 BP 98 / 62; Pulse 71; Resp 18; Pulse Ox 99% on R/A; df1 03:46 Body Mass Index 18.78 (48.08 kg, 160.02 cm) df1 ED Course: 03:44 Patient arrived in ED. df1 03:46 Uma Rose is Primary Nurse. df1 03:49 Derrek Martines MD is Attending Physician. pkl 03:50 Triage completed. df1 03:50 No provider procedures requiring assistance completed. df1 03:50 Patient has correct armband on for positive identification. Placed in gown. Bed in low df1 position. Call light in reach. Side rails up X 1. 03:52 Arm band placed on right wrist. df1 04:00 Resting quietly. lc1 04:00 Inserted saline lock: 22 gauge in right antecubital area, using aseptic technique. lc1 Missed attempt(s): 20 gauge in left antecubital area. Bleeding controlled, band aid applied, catheter tip intact. 04:49 Basic Metabolic Panel Sent. df1 04:49 Acetaminophen Level Sent. df1 04:49 Acetaminophen Sent. df1 04:49 Basic Metabolic Panel Sent. df1 04:49 CBC with Diff Sent. df1 04:49 ETOH Level Sent. df1 04:49 Hepatic Function Sent. df1 04:50 PT-INR Sent. df1 04:50 Ptt, Activated Sent. df1 04:50 Salicylate Sent. df1 04:50 Urine Drug Screen Sent. df1 05:00 Door closed. Noise minimized. Warm blanket given. lc1 05:02 Urine Culture Sent. df1 05:02 Urine Microscopic Only Sent. df1 06:25 IV discontinued, intact, bleeding controlled, No redness/swelling at site. Pressure df1 dressing applied. Administered Medications: 04:40 Drug: NS 0.9% 1000 ml Route: IV; Rate: 125 ml/hr; Site: right antecubital; lc1 06:09 Drug: Tylenol 650 mg Route: PO; lc1 06:10 Follow up: Response: No adverse reaction lc1 Outcome: 06:05 Discharge ordered by . pksu 06:25 Discharged to home ambulatory. df1 06:25 Condition: stable 06:25 Discharge instructions given to patient, Instructed on discharge instructions, follow up and referral plans. Demonstrated understanding of instructions, follow-up care. 06:26 Patient left the ED. df1 Signatures: Derrek Martines MD MD pkl Qiana Gonzalez lc1 Uma Rose df1
[2021-02-05] MEDS ORDERED: ACETAMINOPHEN 325 MG TABLET ONE ×2 (06:07→06:17)
[2021-02-05 06:58] VITALS: TEMP 97.8
[2021-02-05 06:59] VITALS: O2SAT 99
[2021-02-05 07:02] VITALS: BP 98/62
--- OUTSIDE RECORDS SUMMARY | 2021-02-14 10:46 | XMS REPORT | Continuity of Care Document ---
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 richard Pulse oximetry Branch Systolic blood 2020-09-24 05:34:00 121 mm[Hg] [facility] Diastolic blood 2020-09-24 05:34:00 73 mm[Hg] [facility] Heart rate 2020-09-24 05:34:00 75 /min [facility] Body temperature 2020-09-24 05:34:00 36.94 Nakia [facility] Respiratory rate 2020-09-24 05:34:00 18 /min [facility] Body height 2020-09-24 05:34:00 160 cm [facility] Body weight 2020-09-24 05:34:00 48.081 kg [facility] BMI 2020-09-24 05:34:00 18.78 kg/m2 [facility] Oxygen saturation in 2020-09-24 05:34:00 100 /min [facility] Arterial blood by [facility] Pulse oximetry Branch Systolic blood 2018-11-26 08:35:00 136 mm[Hg] [facility] Diastolic blood 2018-11-26 08:35:00 61 mm[Hg] [facility] Heart rate 2018-11-26 08:35:00 84 /min [facility] Body temperature 2018-11-26 08:35:00 36.94 Nakia [facility] Respiratory rate 2018-11-26 08:35:00 18 /min [facility] Body weight 2018-11-26 08:35:00 48.081 kg [facility] BMI 2018-11-26 08:35:00 18.78 kg/m2 [facility] Oxygen saturation in 2018-11-26 08:35:00 99 /min [facility] Arterial blood by [facility] Pulse oximetry Branch Systolic blood 2018-11-26 08:35:00 136 mm[Hg] [facility] Diastolic blood 2018-11-26 08:35:00 61 mm[Hg] [facility] Heart rate 2018-11-26 08:35:00 84 /min [facility] Body temperature 2018-11-26 08:35:00 36.94 Nakia [facility] Respiratory rate 2018-11-26 08:35:00 18 /min [facility] Body weight 2018-11-26 08:35:00 48.081 kg [facility] BMI 2018-11-26 08:35:00 18.78 kg/m2 [facility] Oxygen saturation in 2018-11-26 08:35:00 99 /min [facility] Arterial blood by [place] [facility] Pulse oximetry Branch Systolic blood 2018-11-04 06:38:00 119 mm[Hg] [facility] Diastolic blood 2018-11-04 06:38:00 73 mm[Hg] [facility] Heart rate 2018-11-04 06:38:00 89 /min [facility] Body temperature 2018-11-04 06:38:00 36.67 Nakia [facility] Respiratory rate 2018-11-04 06:38:00 20 /min [facility] Body height 2018-11-04 06:38:00 160 cm [facility] Body weight 2018-11-04 06:38:00 47.628 kg [facility] BMI 2018-11-04 06:38:00 18.60 kg/m2 [facility] Oxygen saturation in 2018-11-04 06:38:00 100 /min [facility] [place] [facility] Pulse oximetry Branch Systolic blood 2018-11-04 06:38:00 119 mm[Hg] [facility] Diastolic blood 2018-11-04 06:38:00 73 mm[Hg] [facility] Heart rate 2018-11-04 06:38:00 89 /min [facility] Body temperature 2018-11-04 06:38:00 36.67 Nakia [facility] Respiratory rate 2018-11-04 06:38:00 20 /min [facility] Body height 2018-11-04 06:38:00 160 cm [facility] Body weight 2018-11-04 06:38:00 47.628 kg [facility] BMI 2018-11-04 06:38:00 18.60 kg/m2 [facility] Oxygen saturation in 2018-11-04 06:38:00 100 /min [facility] Arterial blood by [facility] Pulse oximetry Branch Temperature Oral (F) 2018-04-14 19:01:00 98.2 F [facility] Systolic (mm Hg) 2018-04-14 16:00:00 [facility] Diastolic (mm Hg) 2018-04-14 16:00:00 [facility] Respitory Rate 2018-04-14 16:00:00 [facility] Systolic (mm Hg) 2018-04-14 15:00:00 [facility] [place] Diastolic (mm Hg) 2018-04-14 15:00:00 [facility] Respitory Rate 2018-04-14 15:00:00 [facility] Systolic (mm Hg) 2018-04-14 14:00:00 [facility] Diastolic (mm Hg) 2018-04-14 14:00:00 [facility] [place] Respitory Rate 2018-04-14 14:00:00 [facility] Temperature Oral (F) 2018-04-14 13:35:00 97.2 F [facility] Temperature Oral (F) 2018-04-14 10:00:00 97.6 F [facility] Heart Rate 2018-04-14 03:11:00 [facility] Heart Rate 2018-04-14 01:02:00 [facility] Weight 2018-04-13 19:53:00 [facility] Height 2018-04-13 19:53:00 160.02 cm [facility] BMI Calculated 2018-04-13 19:53:00 [facility] Heart Rate 2018-04-13 19:53:00 [facility] Systolic (mm Hg) 2018-01-31 19:28:00 [facility] [place] Diastolic (mm Hg) 2018-01-31 19:28:00 [facility] Heart Rate 2018-01-31 19:28:00 [facility] Respitory Rate 2018-01-31 19:28:00 [facility] Weight 2018-01-31 19:28:00 [facility] Temperature Oral (F) 2018-01-31 19:28:00 97.9 F [facility] Systolic (mm Hg) 2018-01-31 16:00:00 [facility] [place] Diastolic (mm Hg) 2018-01-31 16:00:00 [facility] Respitory Rate 2018-01-31 16:00:00 [facility] Respitory Rate 2018-01-31 15:07:00 [facility] Systolic (mm Hg) 2018-01-31 15:07:00 [facility] Diastolic (mm Hg) 2018-01-31 15:07:00 [facility] Respitory Rate 2018-01-31 14:02:00 [facility] Systolic (mm Hg) 2018-01-31 14:02:00 [facility] [place] Diastolic (mm Hg) 2018-01-31 14:02:00 [facility] Temperature Oral (F) 2018-01-31 10:46:00 98.6 F [facility] Heart Rate 2018-01-31 10:46:00 [facility] Systolic (mm Hg) 2017-06-28 14:36:00 [facility] Diastolic (mm Hg) 2017-06-28 14:36:00 [facility] Temperature Oral (F) 2017-06-28 14:36:00 98.1 F [facility] Respitory Rate 2017-06-28 14:36:00 [facility] Heart Rate 2017-06-28 14:36:00 [facility] Respitory Rate 2017-06-28 09:31:00 [facility] Temperature Oral (F) 2017-06-28 09:31:00 97.9 F [facility] Weight 2017-06-28 09:31:00 [facility] Heart Rate 2017-06-28 09:31:00 [facility] Systolic (mm Hg) 2017-06-28 09:31:00 [facility] Diastolic (mm Hg) 2017-06-28 09:31:00 [facility] Procedures Procedure Date / Time Performed Performing Clinician [facility] e NOTICE OF PRIVACY 2020-12-17 05:49:43 Doctor Unassigned, No [facility] PRACTICES Name Medical Branch CONSENT/REFUSAL FOR 2020-12-17 05:49:22 Doctor Unassigned, No [facility] [place] [facility] TREATMENT CONSENT/REFUSAL FOR 2020-11-07 08:31:45 Doctor Unassigned, No [facility] [place] [facility] TREATMENT NOTICE OF PRIVACY 2020-09-28 05:36:52 Doctor Unassigned, No [facility] [place] [facility] CONSENT/REFUSAL FOR 2020-09-28 05:31:04 Doctor Unassigned, No [facility] [place] [facility] TREATMENT XR ANKLE 3+ VW RIGHT 2020-09-24 05:48:05 Umu Barillas [facility] XR FOOT 3+ VW RIGHT 2018-11-26 08:52:27 Umu Barillas [facility] NOTICE OF PRIVACY 2018-11-26 08:32:51 Doctor Unassigned, No [facility] CONSENT/REFUSAL FOR 2018-11-26 08:31:21 Doctor Unassigned, No [facility] [place] [facility] TREATMENT EKG-12 LEAD 2018-11-04 07:40:11 [facility] o [facility] [place] [facility] POCT GLUCOSE 2018-11-04 07:33:00 [facility] o [facility] (AUTOMATED) Medical Branch CONSENT/REFUSAL FOR 2018-11-04 06:31:07 Doctor Unassigned, No [facility] [place] [facility] TREATMENT Plan of Care Planned Activity Planned Date Details Comments Source Future Scheduled 2019-12-04 INFLUENZA VACCINE (#1) [facility] Test 00:00:00 [code = INFLUENZA Medical Ce nter VACCINE (#1)] Future Scheduled [address] [facility] Test 00:00:00 (procedure) [code = Medical Center 79535050] Future Scheduled [address] [facility] Test 00:00:00 malignant neoplasm of Medica l Center cervix (procedure) [code = 040026555] Future Scheduled [address] [facility] - Test 00:00:00 0-64 YRS (1 of 1 - Medical C enter PPSV23) [code = PNEUMOCOCCAL VACCINE 0-64 YRS (1 of 1 - PPSV23)] Future Scheduled [address] [facility] - Test 00:00:00 malignant neoplasm of [facility] breast (procedure) [code = 920989400] Future Scheduled [address] [facility] - Test 00:00:00 malignant neoplasm of [facility] colon (procedure) [code = 106637859] Future Scheduled [facility] [code = [facility]OSCOPY SCREENING] Future Scheduled SH[facility]LES [facility]IN[facility] (#[facility] [code = SHINGLES VACCINES (#1)] Future Scheduled [facility] [code = INFLU[facility]ZA VACCINE] Future Scheduled COVID-19 [facility]ACCINE (1) [facility] [code = COVID-19 VACCINE (1)] Future Scheduled [facility] Test malignant neoplasm of cervix (procedure) [code = 958315790] Future Scheduled BREAST CANCER [facility] Test SCREENING [code = BREAST CANCER SCREENING] Encounters Start End Encounter Admission Attending Care Care Encounter Source Date/Time Date/Time Type Type Clinicians Facility Department ID 2021-01-12 2021-01-[address] [facility] [id number] Univers 03:24:00 03:55:00 Umu Mead [id number] [facility] [id number] [facility] [id number] [address] 2021-01-12 2021-01-12 [facility] E[facility] [id number] Univers 03:24:00 03:24:00 UMU strickland [facility] 2021-01-11 2021-01-[address] [facility] [id number] Univers 19:24:00 20:00:00 Umu Mead [id number] [facility] [id number] [facility] [id number] [address] 2021-01-11 2021-01-11 [facility] [id number] Univers 19:24:00 19:24:00 UMU strickland [facility] 2020-12-17 2020-12-[address] [facility] [id number] Univers 01:00:00 01:40:00 Donnie Dawson [id number] [facility] [place] 4.2.7.2.686 [facility] [id number] [address] 2020-12-17 2020-12-17 Emergency X [facility] ERT [id number] Univers 00:47:00 00:47:00 ity of [facility] 2020-11-07 2020-11-07 Emergency Critical access hospital [id number] 03:52:00 06:43:00 Rupali S Dawson [id number] [place] 4.2.7.2.686 [place] [id number] [facility] 2020-11-07 2020-11-07 Emergency Critical access hospital [id number] [facility] 03:52:00 06:43:00 Rupali S Dawson [id number] [facility] [place] 4.2.7.2.686 [facility] [id number] [address] 2020-11-07 2020-11-07 Emergency X [facility] ERT [id number] Univers 03:31:00 03:31:00 ity of [facility] 2020-09-27 2020-09-28 Emergency Critical access hospital [id number] 23:09:00 03:14:00 Rupali Baron [place] [id number] [place] [address] [place] [address] [id number] [facility] 2020-09-27 2020-09-28 Emergency Critical access hospital [id number] [facility] 23:09:00 03:14:00 Rupali S Dawson [id number] [facility] [place] [address].2[address]7.[address] [place] [id number] 2020-09-27 2020-09-27 Emergency X [facility] ERT [id number] Univers 23:09:00 23:09:00 WALELOLI ity [facility] 2020-09-24 2020-09-24 Emergency [facility] [id number] 00:36:00 01:37:00 Umu Mead [id number] [place] 4.2.7.2.686 [place] [id number] [facility] 2020-09-24 2020-09-24 [facility] [id number] [facility] 00:36:00 01:37:00 Umu Mead [id number] [facility] [place] 4.2.7.2.686 [facility] [id number] [address] 2020-09-24 2020-09-24 Emergency [facility] [id number] Univers 00:36:00 00:36:00 UMU strickland [facility] 2018-11-27 2018-11-27 Patient Edilia Gonzalez 1.2.840.114 [id number] 00:00:00 00:00:00 Outreach E New 350.1.13.10 [place] 4.2.7.2.686 [id number] [facility] 2018-11-27 2018-11-27 Patient Edilia Gonzalez 1.2.840.114 [id number] [facility] 00:00:00 00:00:00 Outreach E New 350.1.13.10 i [facility] [place] 4.2.7.[address] [place] [address] [id number] [facility] [address] [place] 2018-11-26 2018-11-26 [facility] 1.2.840.114 [id number] 03:43:44 04:30:00 Umu Mead 350.1.13.10 [place] 4.2.7.2.686 [place] [id number] [facility] 2018-11-26 2018-11-26 [facility] 1.2.840.114 [id number] [facility] 03:43:44 04:30:00 Umu Mead [id number] [facility] [place] [address] [place] [id number] 2018-11-04 2018-11-04 Emergency Singer [facility] [id number] 02:27:58 03:11:00 David [place] 350.1.13.10 [place] 4.2.7.2.686 [place] [id number] 2018-11-04 2018-11-04 Emergency Singer [facility] [id number] [facility] 02:27:58 03:11:00 David Alyce 350.1.13.10 [facility] [place] 4.2.7.2.686 [facility] [place] [id number] [facility] 084 Branch 2018-11-04 2018-11-04 Orders Doctor SELVIN 1.2.840.114 [id number] 00:00:00 00:00:00 Only Unassigned, HILTON 350.1.13.10 [place] [facility] 4.2.7.2.686 [id number] 009 2018-11-04 2018-11-04 Orders Doctor SELVIN 1.2.840.114 [id number] Univers 00:00:00 00:00:00 Only Unassigned, HILTON 350.1.13.10 ity of [place] [facility] 4.2.7.2.686 [facility] [id number] [facility] 009 Branch 2018-04-17 2018-04-19 Phone nullFlavo MNA [id number] Memoria 19:55:00 05:59:59 Message r Neurosurger 00 l y [facility] 2018-04-13 2018-04-14 Inpatient nullFlavo [facility] [id number] Memoria 19:48:00 19:15:00 desi Jo 10 [facility] 2018-01-31 2018-01-31 Emergency [facility] [id number] Memoria 19:12:00 23:03:00 desi Jo 01 [facility] 2018-01-31 2018-01-31 Emergency nullFlavo [facility] [id number] Memoria 10:46:00 18:01:00 desi Jo 03 [facility] 2017-07-02 2017-07-02 Emergency [facility] [id number] 08:16:00 08:16:00 [facility] 2017-06-28 2017-06-28 Emergency [facility] [id number] Memoria 09:28:00 14:45:00 desi Jo 00 [facility] Results Test Description Test Test Results Result Source Time Comments Comments XR FOOT 3+ VW 2018-11- No acute osseous Univ ersity of RIGHT 25 injury identified. [facility] 09:14:11 Severe osteoarthritis Bra nch of the first metatarsophalangeal joint RL: 5252 CLINICAL HISTORY: Right foot pain ORDERING PHYSICIAN: UMU BARILLAS TECHNIQUE: 3 views. COMPARISON: None. FINDINGS: No fracture or dislocation.?Surroundin g soft tissues are unremarkable.There is severe joint space narrowing of the first metatarsophalangealjoin t. [facility], [facility]iant Results Inft User - 11/26/2018 4:16 AM CDTCLINICAL HISTORY: Right foot painORDERING PHYSICIAN: UMU BARILLASTECHNIQUE: 3 views.COMPARISON: None.FINDINGS:No fracture or dislocation. Surrounding soft tissues are unremarkable.There is severe joint space narrowing of the first metatarsophalangealjoin t.IMPRESSIONNo acute osseous injury identified. Severe osteoarthritis of the first metatarsophalangeal jointRL: 5252 POCT GLUCOSE (AUTOMATED) 2018-11-04 07:36:00 Test Item Value Reference Range Interpretation Comme [facility] POCT GLU (test code = 0243472687) 111 mg/dL 70-110 H Lab Interpretation (test code = 74005-8) [facility]normal [facility] [id number] 08:06:00 Test Item Value Reference Range Interpretation Comments SCAN RESULT (test code = 2465117) CELIAC DISEASE PROFILE Refer to Celiac AUTOVERIFICATION (QUEST) Disease Panel (test code = 0006328) results. CT, [id number] 19:42:00Only need IV contrast, not POFINAL REPORT [...] Simeonort Verified Date/Time: 09/05/2018 19:42:13 Reading Location: [facility] C013W Consult Reading Room RAD, ABDOMEN/KUB, 1 VIEW AP 2018-09-05 15:30:00Reason for exam:->look for retained video capsuleAddendum BeginsREPORT STATUS:A Addendum:The video capsule is seen projected over the right iliac wing. It could be in the distal ileum versus large bowel. If in exact location isneeded. CT scan will be necessary. End of addendum. Signed: Reza Liraeport Verified Date/Time: 09/05/2018 15:30:35 Reading Location: [facility] Radiology Reading RoomAddendum EndsFINAL REPORT TECHNIQUE: Supine radiograph of the abdomen dated 09/05/2018 HISTORY: Evaluate for retained video capsule. COMPARISON: None IMPRESSION:No air-filled, dilated loops of bowel to suggest obstruction. No free intraperitoneal air. No abnormal soft tissue mass. No radiodense foreign body v isualized. Bones are unremarkable. Signed: Reza Liraeport Verified Date/Time: 09/05/2018 14:53:33 Reading Location: [facility] Radiology Reading Room GI PATHOGEN PROFILE BY [id number] 10:43:00 Test Item Value Reference Range Interpretation [...] Not detected Not detected (test code = 8644037) VIBRIO (PARAHAEMOLYTICUS, Not detected Not detected VULNIFICUS) [...] [facility] Molecular Diagnostics Laboratory using the EasyPaintArray Gastrointestinal Panel. It is FDA cleared and has been verified and approved by the [facility] Molecular Diagnostics Laboratory for clinical use. This laboratory is CLIA-certified and College ofAmerican Pathologists (CAP)-accredited to perform high complexity testing.BASIC METABOLIC [id number] 05:42:00 Test Item Value Reference Range Interpretation [...] 0-0 (BEAKER) (test code = 413) C-REACTIVE [id number] 18:59:00 Test Item Value Reference Range Interpretation Comments C-REACTIVE PROTEIN (BEAKER) (test 0.38 mg/dL 0.00-0.50 code = 676) [id number] 05:48:00 Test Item Value Reference Range Interpretation Comments FERRITIN (BEAKER) (test code = 361) 13 ng/mL 5-275 BASIC METABOLIC [id number] 05:27:00 Test Item Value Reference Range Interpretation [...] 0-0 (BEAKER) (test code = 413) RETICULOCYTE [id number] 05:05:00 Test Item Value Reference Range Interpretation Comments RETICULOCYTE COUNT PCT (BEAKER) (test 1.1 % 0.5-1.7 code = 575) SCREEN, [id number] 15:17:00 Test Item Value Reference Range Interpretation Comments TEST URINE (BEAKER) (test Negative code = 583) BASIC METABOLIC [id number] 04:53:00 Test Item Value Reference Range Interpretation [...] 0-0 (BEAKER) (test code = 413) CHEM [id number] 03:57:003.0[facility] [id number] 03:57:000.3 [facility] [id number] 03:57:00 Test Item Value Reference Range Interpretation Comments A/G Ratio (test code = A/G Ratio) 1.0 1 0.7-1.6 [facility] [id number] 03:57:000.1[facility]ann[facility] PANEL 2018-04-14 03:57:000.4[facility]ann[facility] [id number] 03:57:0049[facility]ann[facility] [id number] 03:57:0024[facility]annCHE[facility] [id number] 03:57:006.0[facility]ann[facility] [id number] 03:57:0019[facility]ann[facility] [id number] 03:57:003.0[facility]ann[facility] [id number] 03:57:003.0 [facility] [id number] 03:57:000.3[facility]ann[facility] PANEL 2018-04-14 03:57:00 Test Item Value Reference Range Interpretation Comments A/G Ratio (test code = A/G Ratio) 1.0 1 0.7-1.6 [facility] [id number] 03:57:000.1[facility]ann[facility] PANEL 2018-04-14 03:57:000.4[facility]ann[facility] [id number] 03:57:0049[facility]ann[facility] [id number] 03:57:0024[facility]annCHE[facility] [id number] 03:57:006.0[facility]ann[facility] [id number] 03:57:0019[facility]annCHE[facility] [id number] 03:57:003.0[facility] [id number] 03:57:003.0 [facility] [id number] 03:57:000.3[facility]ann[facility] PANEL 2018-04-14 03:57:00 Test Item Value Reference Range Interpretation Comments A/G Ratio (test code = A/G Ratio) 1.0 1 0.7-1.6 [facility] [id number] 03:57:000.1[facility]ann[facility] PANEL 2018-04-14 03:57:000.4[facility]ann[facility] [id number] 03:57:0049[facility]annCHE[facility] [id number] 03:57:0024[facility]ann[facility] [id number] 03:57:006.0[facility]ann[facility] [id number] 03:57:0019[facility]ann[facility] [id number] 03:57:003.0[facility] [id number] 03:57:003.0 [facility] [id number] 03:57:000.3[facility]ann[facility] PANEL 2018-04-14 03:57:00 Test Item Value Reference Range Interpretation Comments A/G Ratio (test code = A/G Ratio) 1.0 1 0.7-1.6 [facility] [id number] 03:57:000.1[facility]ann[facility] PANEL 2018-04-14 03:57:000.4[facility]ann[facility] [id number] 03:57:0049[facility]ann[facility] [id number] 03:57:0024[facility]annCHE[facility] [id number] 03:57:006.0[facility]ann[facility] [id number] 03:57:0019[facility]annCHE[facility] [id number] 03:57:003.0Memorial [id number] 21:07:008.4 Memorial [id number] 21:07:0056.3[facility] HermannHEMATOLOGY 2018-04-13 21:07:0029.4Memorial [id number] 21:07:009.6[facility]orial AiyiimbGXAJLYGHBO9185-45-02 21:07:004.0[facility] LhkdlxySXONLWIMIJ0514-87-72 21:07:000.7[facility] RfejsuoPGNSGJTQWX2839-98-87 21:07:003.3[facility] VSVVRYUYQJ7256-57-18 21:07:001.7[facility] IvgcgveHLYZVKKOVS6185-50-83 21:07:000.6 [facility] RtnietzQXKHLYKZJM7033-64-35 21:07:000.2[facility] HermannCHEM PANEL 2018-04-13 21:07:07972Akuwckcq HermannCHEM JNZUR0072-87-96 21:07:83174Fwhbczoz HermannCHEM HTSUN7217-40-31 21:07:0023[facility]annCHEM JPIDD5871-68-18 21:07:000.58[facility]annCHEM SRVNB7621-33-10 21:07:26606Cvwymvsd HermannCHEM ECOER0177-91-02 21:07:004.4[facility] HermannCHEM NDSPT2380-23-67 21:07:008.6 [facility] HermannCHEM KWSMF3602-41-64 21:07:007[facility]annCHEM PANEL 2018-04-13 21:07:24156Pbaichcs HermannCHEM GUDOU5456-88-93 21:07:0013.4[facility] TsjmofkRKWEDNEKGS1868-22-96 21:07:002.1[facility] OamoublEGFPADVZIX5744-53-51 21:07:00 Test Item Value Reference Range Interpretation Comments Angle Rapid (test code = Angle 75 degrees 64-80 Rapid) [facility] AgicbbvVOXTESUVUV8406-47-47 21:07:008.6[facility] HermannHEMATOLOGY 2018-04-13 21:07:00 Test Item Value Reference Range Interpretation Comments Max Amplitude Rapid (test code = Max 63 mm 52-71 Amplitude Rapid) [facility] IffyqldZIEOIPLJFK0586-51-65 21:07:00 Test Item Value Reference Range Interpretation Comments R-time Rapid (test code = R-time 0.7 min 0.4-0.7 Rapid) [facility] WpjqfzvTOHSRVYCIS2670-62-81 21:07:00 Test Item Value Reference Range Interpretation Comments K-time Rapid (test code = K-time 1.2 min 0.6-2.3 Rapid) [facility]EgviwznKELSJRFSPC3630-05-80 21:07:00 Test Item Value Reference Range Interpretation Comments ACT (TEG) Rapid (test code = ACT (TEG) 113 s 86-118 Rapid) [facility]ennialChxbcvnCSMLCCXUWU1052-98-69 21:07:00 Test Item Value Reference Range Interpretation Comments Split Point Rapid (test code = Split 0.6 min Point Rapid) [facility]SkiaqezXRMPHJZFOF2367-22-59 21:07:00 Test Item Value Reference Range Interpretation Comments PTT (test code = PTT) 30.6 s 22.9-35.8 [facility] HospitalHarnlsyVHGUEMHDKP5232-01-01 21:07:00 Test Item Value Reference Range Interpretation Comments INR (test code = INR) 1.03 1 0.85-1.17 [facility] HospitalYewrwmdWKOIPKOKUS7051-01-86 21:07:00 Test Item Value Reference Range Interpretation Comments PT (test code = PT) 13.3 s 12.0-14.7 [facility] PeuynlkSSOUUIHRFO5065-42-53 21:07:0011.1[facility] HermannHEMATOLOGY 2018-04-13 21:07:0033.7[facility] ZvbxndxNWIGIPEYVT2524-83-30 21:07:004.04[facility] GomnftfUMIZUIWSBN2630-01-71 21:07:005.8[facility] IrizudsCUZLFIFZHU3312-56-77 21:07:0017.2[facility] IbxcgjdXPDIVXMPPL8879-48-44 21:07:19492Iqwqbdho [place] NXIKPBAZJP0877-02-47 21:07:0032.9[facility] CsjmtyvXHOKPXQWCH3813-17-17 21:07:00 83.5[facility] ZwmerxuKIENXSUSAJ9511-42-61 21:07:00 Test Item Value Reference Range Interpretation Comments MCH (test code = MCH) 27.5 pg 27.0-31.0 [facility] HospitalJmgrrnvLIGFXYNBPE9894-93-92 21:07:008.4[facility] HermannHEMATOLOGY 2018-04-13 21:07:0056.3[facility] DokerhuKXTXMQECBU9461-86-22 21:07:0029.4[facility] VkreqamFNKICOYIRG0290-15-64 21:07:009.6[facility] OcdnpsgKTEZNHYTOO3204-13-89 21:07:004.0[facility] YhkkzaxFZQIJUOVIV7875-18-14 21:07:000.7[facility] IZORWOZIZM4655-10-99 21:07:003.3[facility] GixpxtkROUGCXYTED3320-43-80 21:07:001.7 [facility] NtsstriWIUAYFPATG8269-68-27 21:07:000.6[facility] HermannHEMATOLOGY 2018-04-13 21:07:000.2[facility] HermannCHEM EOKJX2296-48-53 21:07:20346Lovszmne HermannCHEM ITXKV0048-40-60 21:07:71189Amsceqze HermannCHEM UESCX4801-99-26 21:07:0023[facility] HermannCHEM APPRH0479-20-82 21:07:000.58[facility] HermannCHEM GWETB9811-89-64 21:07:78194Mgczihop HermannCHEM WGMXZ8150-19-54 21:07:004.4 [facility]annCHEM ERAPS1384-85-15 21:07:008.6[facility] HermannCHEM PANEL 2018-04-13 21:07:007[facility] HermannCHEM ZMARB7511-32-47 21:07:76821Ulhxswhx HermannCHEM MIVVG9590-52-86 21:07:0013.4[facility] VblgbchITOEHPDCIB2791-79-70 21:07:002.1[facility] XcrausdJVNEWVQPOY5589-89-49 21:07:00 Test Item Value Reference Range Interpretation Comments Angle Rapid (test code = Angle 75 degrees 64-80 Rapid) [facility] JyubltgWTHLNYXKYF3173-73-04 21:07:008.6[facility] HermannHEMATOLOGY 2018-04-13 21:07:00 Test Item Value Reference Range Interpretation Comments Max Amplitude Rapid (test code = Max 63 mm 52-71 Amplitude Rapid) [facility] OovlsabMCPMVAYNWT5151-45-93 21:07:00 Test Item Value Reference Range Interpretation Comments R-time Rapid (test code = R-time 0.7 min 0.4-0.7 Rapid) [facility] CvqttelSFPHXXLLXD9881-31-28 21:07:00 Test Item Value Reference Range Interpretation Comments K-time Rapid (test code = K-time 1.2 min 0.6-2.3 Rapid) [facility] HospitalEbubuqoUHRVZOTUYE3016-34-37 21:07:00 Test Item Value Reference Range Interpretation Comments ACT (TEG) Rapid (test code = ACT (TEG) 113 s 86-118 Rapid) [facility] HospitalAxbsnreXTLFRTVWCS7520-42-76 21:07:00 Test Item Value Reference Range Interpretation Comments Split Point Rapid (test code = Split 0.6 min Point Rapid) [facility] HospitalZbtfzylZXVKGJCVHQ9245-15-97 21:07:00 Test Item Value Reference Range Interpretation Comments PTT (test code = PTT) 30.6 s 22.9-35.8 [facility] HospitalYbasagrICITNDVSLA2367-75-94 21:07:00 Test Item Value Reference Range Interpretation Comments INR (test code = INR) 1.03 1 0.85-1.17 [facility] HospitalFvzzuqyAAUDASQCYZ4022-58-67 21:07:00 Test Item Value Reference Range Interpretation Comments PT (test code = PT) 13.3 s 12.0-14.7 [facility] WsusmyiUKLBVXIWQN8904-04-58 21:07:0011.1[facility] HermannHEMATOLOGY 2018-04-13 21:07:0033.7[facility] SdpflsfFWRMENXKZK1287-74-45 21:07:004.04[facility] MavhzdjXHOEIVAIHT5945-27-70 21:07:005.8[facility] ZrdvitgRHGYXGUNIU4334-01-53 21:07:0017.2[facility] MrrsbbyYZIQYHSRXZ9989-65-84 21:07:13345Movlavwn [place] IPYYLUGOSR1417-93-66 21:07:0032.9[facility] JysxgzcSHWNUTSQGC3271-33-33 21:07:00 83.5[facility] HquiiveWNAYLSQKAU1322-24-35 21:07:00 Test Item Value Reference Range Interpretation Comments MCH (test code = MCH) 27.5 pg 27.0-31.0 [facility] HermannCHEM APVNV7160-08-15 21:07:86011Nghdoowe HermannCHEM PANEL 2018-04-13 21:07:35142Qzvtkztl HermannCHEM XQLQS5652-41-94 21:07:0023[facility] HermannCHEM TQPNT9932-57-95 21:07:000.58[facility] HermannCHEM NLTPE3008-54-26 21:07:36457Pzjyuqyd HermannCHEM OSANT7648-61-04 21:07:004.4[facility] HermannCHEM OSUIU5099-02-99 21:07:008.6[facility]CHE[facility] NDNZG9580-66-96 21:07:007 [facility]annCHE[facility] DQDKP9297-86-65 21:07:40133Iourjxkp HermannCHEM PANEL 2018-04-13 21:07:0013.4[facility] KmlxzdnKPFPXYIBCL0756-87-95 21:07:002.1[facility] CenterNcarbkiGUWMGNVEJU5785-34-91 21:07:00 Test Item Value Reference Range Interpretation Comments Angle Rapid (test code = Angle 75 degrees 64-80 Rapid) [facility]EtjsychXFJZDVJPAR0236-07-26 21:07[facility]008.6[facility] 21:07:00 Test Item Value Reference Range Interpretation Comments Max Amplitude Rapid (test code = Max 63 mm 52-71 Amplitude Rapid) [facility] TylerXyblimgUPZOKVHEWL6955-09-15 21:07:00 Test Item Value Reference Range Interpretation Comments R-time Rapid (test code = R-time 0.7 min 0.4-0.7 Rapid) [facility] TylerOqibfqiUAXXEYBOZM0477-85-29 21:07:00 Test Item Value Reference Range Interpretation Comments K-time Rapid (test code = K-time 1.2 min 0.6-2.3 Rapid) [facility] TylerJehgfbdQQGMCXJAJZ5397-63-70 21:07:00 Test Item Value Reference Range Interpretation Comments ACT (TEG) Rapid (test code = ACT (TEG) 113 s 86-118 Rapid) [facility] TylerNmpagjlKDUMVVQILS6763-21-30 21:07:00 Test Item Value Reference Range Interpretation Comments Split Point Rapid (test code = Split 0.6 min Point Rapid) [facility] TylerYlmocdfMQULLUFARQ0916-24-65 21:07:00 Test Item Value Reference Range Interpretation Comments PTT (test code = PTT) 30.6 s 22.9-35.8 [facility] TylerZmrchbbROJGMSLWDQ5698-52-00 21:07:00 Test Item Value Reference Range Interpretation Comments INR (test code = INR) 1.03 1 0.85-1.17 [facility] ItmdysaNEEQAVCEHD6040-57-02 21:07:00 Test Item Value Reference Range Interpretation Comments PT (test code = PT) 13.3 s 12.0-14.7 [facility] UnmehwrLOCEIVBRQY1127-63-20 21:07:0011.1[facility] HermannHEMATOLOGY 2018-04-13 21:07:0033.7[facility] BgewvfcKWRTNFGZWP8010-10-11 21:07:004.04[facility] FcwgegoWGNWVRNXYF3564-45-87 21:07:005.8[facility] OhtnyeiZLVTBQNVTW4662-01-09 21:07:0017.2[facility] BzyigniATTXKHARTF2087-81-27 21:07:49570Opqwhlrj [place] QTNTAEVGEW9935-94-43 21:07:0032.9[facility] ToefwacKTPNGEVBYE4186-07-02 21:07:00 83.5[facility] ZjmzztvCKSVNRSMCR0779-53-43 21:07:00 Test Item Value Reference Range Interpretation Comments MCH (test code = MCH) 27.5 pg 27.0-31.0 [facility] AuvkzbnAQEDGEVBVR8740-39-63 21:07:008.4[facility] HermannHEMATOLOGY 2018-04-13 21:07:0056.3[facility] FjdhkfiOVGIGHWGHA2060-72-19 21:07:0029.4[facility] UpvoreePILGCTSONL8712-32-48 21:07:009.emorial FzbvoqzFSQQDQEVRQ0801-25-75 21:07:004.0[facility] FmrinpnEQIXDJCMLG2479-00-50 21:07:000.7[facility] [place] DNVYTYJDZL1728-30-28 21:07:003.3[facility] HfmlhuoOPJDCIKIVX1484-54-71 21:07:001.7 [facility] FwgilfmWXTUUEAXLI6918-11-40 21:07:000.6[facility] HermannHEMATOLOGY 2018-04-13 21:07:000.2[facility] HpfbpmsEEAASEHXNZ0801-58-12 21:07:001.7[facility] MgwwnjaYULUIRUWDO4862-24-03 21:07:000.6[facility] ZqmpiwpTYTCEEJBUL6063-52-15 21:07:000.2[facility] HermannCHEM CIUFV6647-63-70 21:07:60309Mcjkrabr HermannCHEM IWQTX8047-54-38 21:07:31109Mzrmptir HermannCHEM AFTQB3134-62-39 21:07:0023 [facility] HermannCHEM TCZRC8197-31-17 21:07:000.58[facility] HermannCHEM PANEL 2018-04-13 21:07:11208Omnphyxo HermannCHEM WKTKP5646-18-29 21:07:004.4[facility] HermannCHEM RMOSK5846-69-55 21:07:008.6[facility] HermannCHEM WYQKB3784-27-36 21:07:007[facility] HermannCHEM LSDVG2351-41-23 21:07:14719Niboanjk HermannCHEM LUCMO9294-41-69 21:07:0013.4[facility] BcxykknALJIHNUJEQ0984-81-99 21:07:002.1 [facility] TylerXtogkifOEPOKAHYEE1956-64-27 21:07:00 Test Item Value Reference Range Interpretation Comments Angle Rapid (test code = Angle 75 degrees 64-80 Rapid) [facility] TylerThbajmmPVUKPZVXNU2140-25-98 21:07:008.6[facility] 2018-04-13 21:07:00 Test Item Value Reference Range Interpretation Comments Max Amplitude Rapid (test code = Max 63 mm 52-71 Amplitude Rapid) [facility] TylerBfpgattOYVSSYXBPI5595-92-35 21:07:00 Test Item Value Reference Range Interpretation Comments R-time Rapid (test code = R-time 0.7 min 0.4-0.7 Rapid) [facility] TylerMozbeypTAXCPCQLQO7707-10-96 21:07:00 Test Item Value Reference Range Interpretation Comments K-time Rapid (test code = K-time 1.2 min 0.6-2.3 Rapid) [facility] TylerTigpdkzIEKZDBBXQI8626-01-04 21:07:00 Test Item Value Reference Range Interpretation Comments ACT (TEG) Rapid (test code = ACT (TEG) 113 s 86-118 Rapid) [facility] TylerYfohutpSSHJFETVLH9782-18-88 21:07:00 Test Item Value Reference Range Interpretation Comments Split Point Rapid (test code = Split 0.6 min Point Rapid) [facility] EtcyrrpMCVYQCPPYH5949-14-72 21:07:00 Test Item Value Reference Range Interpretation Comments PTT (test code = PTT) 30.6 s 22.9-35.8 [facility] JngygxmDSCASIQTAA4861-31-18 21:07:00 Test Item Value Reference Range Interpretation Comments INR (test code = INR) 1.03 1 0.85-1.17 [facility] TldplnoPKIPQLCJAK2223-98-68 21:07:00 Test Item Value Reference Range Interpretation Comments PT (test code = PT) 13.3 s 12.0-14.7 [facility] OhlsfgkWPHQEFXHIQ2800-95-51 21:07:0011.1[facility] HermannHEMATOLOGY 2018-04-13 21:07:0033.7[facility] CrorswtMRWQTJZJHM2078-69-37 21:07:004.04[facility] DdpcfljFOXYHUJAHG6635-91-37 21:07:005.8[facility] VzwhibjZFOIOGCBHP3958-57-14 21:07:0017.2[facility] DavcdmeXWXEOMFNFD7935-92-96 21:07:13420Czlerrhu [place] MFPXANEDNT8764-49-01 21:07:0032.9[facility] IdregpqUWUYZHNBLA3842-52-35 21:07:00 83.5[facility] XxczjmkPUWXYZPNHG3465-15-37 21:07:00 Test Item Value Reference Range Interpretation Comments MCH (test code = MCH) 27.5 pg 27.0-31.0 [facility] IraynmgEIFBGPGKNA8355-19-76 21:07:008.4[facility] HermannHEMATOLOGY 2018-04-13 21:07:0056.3[facility] QbsxmnqXNELMLRETQ6807-58-57 21:07:0029.4[facility] RlxkapfJJDCOFWWCE7885-09-41 21:07:009.6[facility] PqtvjqfTUOHPAARPQ5805-78-39 21:07:004.0[facility] BhtjpskMGXGEUVYXA4826-48-55 21:07:000.7[facility] [place] TVQMVYVPEQ2577-25-94 21:07:003.3[facility] HermannBLOOD BANK BQAQAVS5549-96-48 11:47:00Negative (01/31/18 6:47 AM)[facility]BL[facility] BANK LBWFNQR6639-77-67 11:47:00Negative (01/31/18 6:47 AM)[facility]annBL[facility]OD BANK IYLTLLO3347-90-69 11:47:00Negative (01/31/18 6:47 AM)[facility]annBL[facility]OD BANK TOAVRUS8812-73-14 11:47:00Negative (01/31/18 6:47 AM)[facility] HermannCHEM UKDYA2601-68-83 11:41:00 105[facility] HermannCHEM NBWJY9491-63-45 11:41:008.3[facility] HermannCHEM PANEL 2018-01-31 11:41:41685Svhpmgpm HermannCHEM DDTPC2392-78-86 11:41:0027[facility] HermannCHEM FXIBJ9965-92-24 11:41:0095[facility] HermannCHEM SGFEJ7704-11-56 11:41:004.2[facility] HermannCHEM PCJPN3114-20-84 11:41:000.65[facility] HermannCHEM OFQQA0874-12-41 11:41:0011[facility] HermannCHEM BUXDP6832-68-46 11:41:60733 [facility] HermannCHEM UTRRV1995-52-01 11:41:008.2[facility] HermannCHEM PANEL 2018-01-31 11:41:000.8[facility] HermannDRUG YQTMTL0358-64-73 11:41:00See Note (01/31/18 6:41 AM)[facility] HermannDRUG UDFLGT9495-87-68 11:41:00Negative *NA*(01/31/18 6:41 AM)[facility] HermannDRUG FANSGE3134-47-32 11:41:00Negative *NA*(01/31/18 6:41 AM)[facility] HermannDRUG OUYPQU8595-96-32 11:41:00Negative *NA*(01/31/18 6:41 AM)[facility] HermannDRUG JKBHXC5896-30-81 11:41:00Negative *NA*(01/31/18 6:41 AM)[facility] HermannDRUG IUTCHJ4903-23-00 11:41:00Negative *NA*(01/31/18 6:41 AM)[facility] HermannDRUG YJSKRG4134-36-37 11:41:00Negative *NA*(01/31/18 6:41 AM)[facility] HermannDRUG JSUPTG8866-57-91 11:41:00Negative *NA*(01/31/18 6:41 AM)[facility] GgzmunwXDKGDOJWYACZF2097-48-96 11:41:00Negative *NA*(01/31/18 6:41 AM)[facility] HidbrvgVQUAGZLBCU2774-30-61 11:41:000.7[facility] VygaxfwYLBQASOLPY8153-60-45 11:41:002.9[facility] GvavrecZTFZMWNNCP6069-45-93 11:41:000.2[facility] PgznbzeYHSWPIVYSK3171-84-14 11:41:0055.3[facility] ESRRXGDYYW4756-56-37 11:41:0033.5[facility] RufgcleFFYQXHKCVI6465-81-94 11:41:00 8.5[facility] CfatzapAKGKYOWZLK5307-01-47 11:41:000.4[facility] HermannHEMATOLOGY 2018-01-31 11:41:002.3[facility] RkpspauLLXHPATXOQ6566-61-47 11:41:004.9[facility] MmpznjyAAIJTYOXOL4717-78-17 11:41:008.8[facility] KrjcqcwIONGBHCEMF3069-22-89 11:41:00 Test Item Value Reference Range Interpretation Comments MCH (test code = MCH) 28.1 pg 27.0-31.0 [facility] FwecfjkJKVONUAVSL1861-07-95 11:41:0032.9[facility] HermannHEMATOLOGY 2018-01-31 11:41:0015.9[facility] OgguhwfJYEICDFRKW3853-60-92 11:41:004.10[facility] SmcqlovDPFVLYRJXN7963-13-81 11:41:0034.9[facility] VksafzzNAVFSUOXYK6586-16-58 11:41:0085.2[facility] GlltrcuKMSHCIABZT5401-25-69 11:41:0011.5[facility] ATRWITOLJD5274-93-08 11:41:49707Erhflzne SnftltvLMWVKESEXX0042-12-43 11:41:007.7 [facility] WmavzolSHCELDLXRW2857-38-05 11:41:00 Test Item Value Reference Range Interpretation Comments ACT (TEG) Rapid (test code = ACT (TEG) 105 s 86-118 Rapid) [facility] CqgucpoVWIPKIQMMW6561-12-38 11:41:00 Test Item Value Reference Range Interpretation Comments Angle Rapid (test code = Angle 75 degrees 64-80 Rapid) [facility] SyccgvrDYLAOKRYOG4542-07-10 11:41:00 Test Item Value Reference Range Interpretation Comments K-time Rapid (test code = K-time 1.2 min 0.6-2.3 Rapid) [facility] AtnwozcRAJOPKJGGI4039-82-45 11:41:00 Test Item Value Reference Range Interpretation Comments R-time Rapid (test code = R-time 0.6 min 0.4-0.7 Rapid) [facility] ZactvyhNYKHZZWNUI3953-76-06 11:41:00 Test Item Value Reference Range Interpretation Comments Split Point Rapid (test code = Split 0.4 min Point Rapid) [facility] GnxhwzfEPBXLXBJFU1496-98-47 11:41:001.3[facility] HermannHEMATOLOGY 2018-01-31 11:41:008.2[facility] DskxzxuIWVWYBNFOT5028-20-53 11:41:00 Test Item Value Reference Range Interpretation Comments Max Amplitude Rapid (test code = Max 62 mm 52-71 Amplitude Rapid) [facility] AphlniwIUTZYHGTMD5387-41-50 11:41:00Negative *NA*(01/31/18 6:41 AM) [facility]annUR[facility] AND SUDDM3909-97-68 11:41:000.2[facility]annURINE AND UCVMH2526-59-69 11:41:00Trace *ABN*(01/31/18 6:41 AM)[facility]annUR[facility] AND MNDOL6380-00-55 11:41:00Negative *NA*(01/31/18 6:41 AM)[facility]annUR[facility] AND KXNFY8286-07-88 11:41:00Negative (01/31/18 6:41 AM)[facility]UR[facility] AND IXGSM0980-60-35 11:41:00 Test Item Value Reference Range Interpretation Comments UA pH (test code = UA pH) 7.0 1 5.0-8.0 [facility]annUR[facility] AND SWCCR7633-16-77 11:41:00Negative *NA*(01/31/18 6:41 AM)[facility]UR[facility] PRAEE7599-33-96 11:41:00Negative (01/31/18 6:41 AM) [facility] SVPJV4302-01-25 11:41:00Trace *ABN*(01/31/18 6:41 AM) [facility] FVBLN7956-60-11 11:41:00Negative (01/31/18 6:41 AM) [facility] HOBBO0441-79-07 11:41:00 Test Item Value Reference Range Interpretation Comments UA Spec Grav (test code = UA Spec 1.010 1 Grav) [facility]UR[facility] AND DEOKV5212-17-18 11:41:00Yellow *NA*(01/31/18 6:41 AM) [facility] XEBNI7837-61-45 11:41:00Clear (01/31/18 6:41 AM) [facility] HermannCHEM UDPAS5213-56-17 11:41:93680Ztppbajf HermannCHEM PANEL 2018-01-31 11:41:008.3[facility] HermannCHEM NSMRC2912-71-90 11:41:48211Cffxegcw HermannCHEM WNMFC0037-92-53 11:41:0027[facility] HermannCHEM QCVVW8303-94-56 11:41:0095[facility] HermannCHEM MBVED0022-42-71 11:41:004.2[facility] HermannCHEM KFEKK3750-18-48 11:41:000.65[facility] HermannCHEM JAPFT6086-96-47 11:41:0011 [facility] HermannCHEM MRJRL1651-08-29 11:41:60122Xdsdnuzy HermannCHEM PANEL 2018-01-31 11:41:008.2[facility] HermannCHEM XUYMJ4157-91-78 11:41:000.8[facility] HermannDRUG YMFTRV1178-91-90 11:41:00See Note (01/31/18 6:41 AM)[facility] UHVXOR5791-01-17 11:41:00Negative *NA*(01/31/18 6:41 AM)[facility] MZDMFJ6463-13-89 11:41:00Negative *NA*(01/31/18 6:41 AM)[facility] DRUG AKXKVJ5271-81-05 11:41:00Negative *NA*(01/31/18 6:41 AM)[facility] DRUG YOKTBM1980-06-79 11:41:00Negative *NA*(01/31/18 6:41 AM)[facility] DRUG SUDTID1160-66-75 11:41:00Negative *NA*(01/31/18 6:41 AM)[facility] DRUG JTQRTG8412-48-06 11:41:00Negative *NA*(01/31/18 6:41 AM)[facility] DRUG CIHIPK3326-82-84 11:41:00Negative *NA*(01/31/18 6:41 AM)[facility] KYCQASSGFKGIN3248-87-33 11:41:00Negative *NA*(01/31/18 6:41 AM)[facility] UVXSINKVWG2628-22-96 11:41:000.7[facility] MswzmdnOZYOEUTNWN2863-65-62 11:41:002.9 [facility] PkmspgiQFZDLMIXNK9324-07-01 11:41:000.2[facility] HermannHEMATOLOGY 2018-01-31 11:41:0055.3[facility] YjyzpjgDVLIPNQTHQ2898-89-99 11:41:0033.5[facility] VrfadawONHWNOXBES4044-26-40 11:41:008.5[facility] HetypkdWUKOREEQSQ8145-05-52 11:41:000.4[facility] MzvbykxFIMSSLXHRG2886-95-16 11:41:002.3[facility] CHZIIOOJXX6186-96-68 11:41:004.9[facility] NokojbqXGKOOLBTYI1846-81-88 11:41:008.8 [facility] WcczzerBVQQFUHZQF8718-81-27 11:41:00 Test Item Value Reference Range Interpretation Comments MCH (test code = MCH) 28.1 pg 27.0-31.0 [facility] DsqmuaxSKDLIIQUZI5088-89-16 11:41:0032.9[facility] HermannHEMATOLOGY 2018-01-31 11:41:0015.9[facility] UffkommNVMZZHGZST6715-41-03 11:41:004.10[facility] FpbddxmSZMIKEKFHD6101-91-60 11:41:0034.9[facility] SgdenalOFIYHNOYYE6376-00-47 11:41:0085.2[facility] TxzcezvJFVKXCXBGO5721-48-94 11:41:0011.5[facility] JNMMSBMSJC3961-68-06 11:41:28603Zbdohxdo SxkemrhHWXXIPNQUS9545-50-05 11:41:007.7 [facility] QrjigppSNSYILRPYM9002-82-76 11:41:00 Test Item Value Reference Range Interpretation Comments ACT (TEG) Rapid (test code = ACT (TEG) 105 s 86-118 Rapid) [facility]23 11:41:00 Test Item Value Reference Range Interpretation Comments Angle Rapid (test code = Angle 75 degrees 64-80 Rapid) [facility] BwrshmjJZQQPDLBCD6403-02-43 11:41:00 Test Item Value Reference Range Interpretation Comments K-time Rapid (test code = K-time 1.2 min 0.6-2.3 Rapid) [facility] VeqpkcxNGXIRWOGLI4644-21-81 11:41:00 Test Item Value Reference Range Interpretation Comments R-time Rapid (test code = R-time 0.6 min 0.4-0.7 Rapid) [facility] PzssbgiVTOZSRANDI3653-31-60 11:41:00 Test Item Value Reference Range Interpretation Comments Split Point Rapid (test code = Split 0.4 min Point Rapid) [facility] GwsxqmmLCJIXYXZZT3628-99-53 11:41:001.3[facility] 2018-[facility] 11:41:008.2[facility] GuhorplJCYQURGWQM7792-50-39 11:41:00 Test Item Value Reference Range Interpretation Comments Max Amplitude Rapid (test code = Max 62 mm 52-71 Amplitude Rapid) [facility] DrfjdwzOKXWOKCJLD6299-88-11 11:41:00Negative *NA*(01/31/18 6:41 AM) [facility] PTXWW0102-99-97 11:41:000.2[facility] KTGSA0729-03-98 11:41:00Trace *ABN*(01/31/18 6:41 AM)[facility] USLYH4751-19-09 11:41:00Negative *NA*(01/31/18 6:41 AM)[facility] FQNYN8923-06-11 11:41:00Negative (01/31/18 6:41 AM)[facility] OTWNF1123-88-29 11:41:00 Test Item Value Reference Range Interpretation Comments UA pH (test code = UA pH) 7.0 1 5.0-8.0 [facility] [id number] 11:41:00Negative *NA*(01/31/18 6:41 AM)[facility] XRRMX9130-88-17 11:41:00Negative (01/31/18 6:41 AM) [facility] XMFOQ3238-39-75 11:41:00Trace *ABN*(01/31/18 6:41 AM) [facility] HFHFU6517-09-25 11:41:00Negative (01/31/18 6:41 AM) [facility] KODZA0346-14-78 11:41:00 Test Item Value Reference Range Interpretation Comments UA Spec Grav (test code = UA Spec 1.010 1 Grav) [facility] WBGNJ9235-72-26 11:41:00Yellow *NA*(01/31/18 6:41 AM) [facility] [id number] 11:41:00Clear (01/31/18 6:41 AM) [facility] WzmvadvGBSUYNUPKZ4454-31-49 11:41:00 Test Item Value Reference Range Interpretation Comments MCH (test code = MCH) 28.1 pg 27.0-31.0 [facility] QcsctjuQQMLCDEHXA4115-61-10 11:41:0032.9[facility] 2018-01-31 11:41:0015.9[facility] GraykatWHFMCFPQXN4281-33-59 11:41:004.10[facility] DrunkntQRHJQCWNKS5479-52-09 11:41:0034.9[facility] NwbzxnnSXHAIUCGIV7817-88-93 11:41:0085.2[facility] TebilkvDCTTSTMFNY9246-18-49 11:41:0011.5[facility] UWVDMQZYZC8625-37-77 11:41:11432Wnrsawwc WpttygjZZHNDPMAAJ7538-50-57 11:41:007.7 [facility] OrqvcjkKKJZIHUQCT4554-93-42 11:41:00 Test Item Value Reference Range Interpretation Comments ACT (TEG) Rapid (test code = ACT (TEG) 105 s 86-118 Rapid) [facility] TmqdvucEFKVCWDQSI3479-64-35 11:41:00 Test Item Value Reference Range Interpretation Comments Angle Rapid (test code = Angle 75 degrees 64-80 Rapid) [facility] EuughzgDABITESNDB5324-48-61 11:41:00 Test Item Value Reference Range Interpretation Comments K-time Rapid (test code = K-time 1.2 min 0.6-2.3 Rapid) [facility] UysppvrVMMZSVGZQQ5761-25-21 11:41:00 Test Item Value Reference Range Interpretation Comments R-time Rapid (test code = R-time 0.6 min 0.4-0.7 Rapid) [facility] SzyowilIHGYMTPYWV7904-62-63 11:41:00 Test Item Value Reference Range Interpretation Comments Split Point Rapid (test code = Split 0.4 min Point Rapid) [facility] KxnbkrnTUYPBHGHSB6898-09-67 11:41:001.3[facility] 2018-01-31 11:41:008.2[facility] BbwamxtRBHBCTZHLA2759-07-23 11:41:00 Test Item Value Reference Range Interpretation Comments Max Amplitude Rapid (test code = Max 62 mm 52-71 Amplitude Rapid) [facility] AjyoqmsXMRRXZILJZ3512-90-17 11:41:00Negative *NA*(01/31/18 6:41 AM) [facility] HQYFT6162-79-26 11:41:000.2[facility] KQOJE3543-46-49 11:41:00Trace *ABN*(01/31/18 6:41 AM)[facility] NPJCN2516-42-49 11:41:00Negative *NA*(01/31/18 6:41 AM)[facility] PLXAG7411-35-89 11:41:00Negative (01/31/18 6:41 AM)[facility] KPWKU6443-81-27 11:41:00 Test Item Value Reference Range Interpretation Comments UA pH (test code = UA pH) 7.0 1 5.0-8.0 [facility] BPEUE5806-57-11 11:41:00Negative *NA*(01/31/18 6:41 AM)[facility] RLFRD0110-13-04 11:41:00Negative (01/31/18 6:41 AM) [facility] UTGKG0277-23-40 11:41:00Trace *ABN*(01/31/18 6:41 AM) [facility] SFNWP5363-97-62 11:41:00Negative (01/31/18 6:41 AM) [facility] UXQKK6962-74-53 11:41:00 Test Item Value Reference Range Interpretation Comments UA Spec Grav (test code = UA Spec 1.010 1 Grav) [facility] JYOFJ9043-65-22 11:41:00Yellow *NA*(01/31/18 6:41 AM) [facility] QEMFW0397-15-95 11:41:00Clear (01/31/18 6:41 AM) [facility] XILAG4935-03-23 11:41:25607Faiwqkfu HermannCHEM PANEL 2018-01-31 11:41:008.3[facility] QBDME9629-63-77 11:41:65373Ehvasisd HermannCHEM BIJMT7622-97-40 11:41:0027[facility] AKOPV9115-59-51 11:41:0095[facility] YBQHW5877-32-32 11:41:004.2[facility] ZQKIZ0419-63-12 11:41:000.65[facility] TBOGH0722-38-99 11:41:0011 [facility] XHKCX6246-07-77 11:41:71562Vicfdurs HermannCHEM PANEL 2018-01-31 11:41:008.2[facility]annCHE[facility] LXQKA7173-27-76 11:41:000.8[facility] RBXXRK1993-92-33 11:41:00See Note (01/31/18 6:41 AM)[facility] WPTJET6680-06-52 11:41:00Negative *NA*(01/31/18 6:41 AM)[facility] DCXYPB0721-76-42 11:41:00Negative *NA*(01/31/18 6:41 AM)[facility] NLAXAL2768-65-34 11:41:00Negative *NA*(01/31/18 6:41 AM)[facility] JXHLHM1213-75-47 11:41:00Negative *NA*(01/31/18 6:41 AM)[facility] TLADVN8682-99-33 11:41:00Negative *NA*(01/31/18 6:41 AM)[facility] CSHTHL0511-04-45 11:41:00Negative *NA*(01/31/18 6:41 AM)[facility] GARCUC8056-53-85 11:41:00Negative *NA*(01/31/18 6:41 AM)[facility] AKOVMQCSQXXYX5825-99-58 11:41:00Negative *NA*(01/31/18 6:41 AM)[facility] ITARDPMHCC8109-83-68 11:41:000.7[facility] AmqjqfvPLQEESZNAG1663-88-61 11:41:002.9 [facility] ElnhgkzHWXKJZHZHR8814-88-51 11:41:000.2[facility]annHEMATOLOGY 2018-01-31 11:41:0055.3[facility] DkovyulCXRLHLMFST0480-94-97 11:41:0033.5[facility] LbplcguIPFHHRZZQU4724-68-69 11:41:008.5[facility] AextqucPDCEWQIAYE8349-31-52 11:41:000.4[facility] ZmbjcepLUAFMUOHCU2893-63-03 11:41:002.3[facility] KFBSNYPHYO1741-93-01 11:41:004.9[facility] YjdtpcfIESNWKSUUJ7964-58-24 11:41:008.8 [facility] RsfoppyBGKQNDHHCK5062-19-46 11:41:00 Test Item Value Reference Range Interpretation Comments MCH (test code = MCH) 28.1 pg 27.0-31.0 [facility]iaftwiUIKFFEFVRZ8410-64-02 11:41:0032.9[facility]annHEMATOLOGY 2018-01-31 11:41:0015.9[facility] YdrwazjZYMDJANVMF7878-66-98 11:41:004.10[facility] IkljolyNOMFFCQIJX1403-87-34 11:41:0034.9[facility] PgkfdafTGMPBXCJTT2345-01-71 11:41:0085.2[facility] IslkpkvJSMVTJYNNY2627-47-36 11:41:0011.5[facility] QPWXXRMGKW6786-49-00 11:41:71686Klhfendl VdtqqiuZCIYPRWYTA7324-86-61 11:41:007.7 [facility]CnfmelnGFNTKUXBLN3161-79-15 11:41:00 Test Item Value Reference Range Interpretation Comments ACT (TEG) Rapid (test code = ACT (TEG) 105 s 86-118 Rapid) [facility] HospitalTexpmboYEQNYQLAAF8316-74-20 11:41:00 Test Item Value Reference Range Interpretation Comments Angle Rapid (test code = Angle 75 degrees 64-80 Rapid) [facility] HospitalIzobxtkHVQBJGMHXF4853-23-76 11:41:00 Test Item Value Reference Range Interpretation Comments K-time Rapid (test code = K-time 1.2 min 0.6-2.3 Rapid) [facility] HospitalWagtzrsBBGRFSUJPJ6081-48-61 11:41:00 Test Item Value Reference Range Interpretation Comments R-time Rapid (test code = R-time 0.6 min 0.4-0.7 Rapid) [facility] HospitalBrqfxzhEHOLUMFHXK8951-86-05 11:41:00 Test Item Value Reference Range Interpretation Comments Split Point Rapid (test code = Split 0.4 min Point Rapid) [facility] UyikjqaKPPFSCSMSP2992-59-65 11:41:001.3[facility]annHEMATOLOGY 2018-01-31 11:41:008.2[facility] SkxzgflGROOLGNVPD1857-18-33 11:41:00 Test Item Value Reference Range Interpretation Comments Max Amplitude Rapid (test code = Max 62 mm 52-71 Amplitude Rapid) [facility] HospitalKuuoybnYXUWNLFKJA5722-16-37 11:41:00Negative *NA*(01/31/18 6:41 AM) [facility] XADJT0600-97-31 11:41:000.2[facility] QRVXM3960-86-52 11:41:00Trace *ABN*(01/31/18 6:41 AM)[facility] FZTXZ6033-97-40 11:41:00Negative *NA*(01/31/18 6:41 AM)[facility] GZPQT8792-48-82 11:41:00Negative (01/31/18 6:41 AM)[facility] LNYJR1843-95-24 11:41:00 Test Item Value Reference Range Interpretation Comments UA pH (test code = UA pH) 7.0 1 5.0-8.0 [facility] ZDEGP7450-78-24 11:41:00Negative *NA*(01/31/18 6:41 AM)[facility] YXWAH3195-32-97 11:41:00Negative (01/31/18 6:41 AM) [facility] CYDVK9528-73-93 11:41:00Trace *ABN*(01/31/18 6:41 AM) [facility] NDFMQ3813-46-49 11:41:00Negative (01/31/18 6:41 AM) [facility] EAEIX9262-44-55 11:41:00 Test Item Value Reference Range Interpretation Comments UA Spec Grav (test code = UA Spec 1.010 1 Grav) [facility] XSCIU2587-76-84 11:41:00Yellow *NA*(01/31/18 6:41 AM) [facility] FNONG6639-58-81 11:41:00Clear (01/31/18 6:41 AM) [facility]CHE[facility] GODXZ7715-12-12 11:41:76156Cbkcomrd HermannCHEM PANEL 2018-01-31 11:41:008.3[facility]annCHE[facility] HNEON6306-87-79 11:41:06540Mgiswbwt HermannCHEM ATPOE9761-44-03 11:41:0027[facility]annCHE[facility] FUMZJ9749-52-95 11:41:0095[facility]annCHE[facility] SKOPU3553-76-32 11:41:004.2[facility]annCHE[facility] BIWUV5501-69-25 11:41:000.65[facility]annCHE[facility] PGXSU8534-88-99 11:41:0011 [facility]CHE[facility] EXJMD4285-34-80 11:41:34986Oseixygh HermannCHEM PANEL 2018-01-31 11:41:008.2[facility]annCHE[facility] VCDSE8924-39-21 11:41:000.8[facility]annDR[facility] IZLQHP8295-55-03 11:41:00See Note (01/31/18 6:41 AM)[facility] IVGHQI7614-86-29 11:41:00Negative *NA*(01/31/18 6:41 AM)[facility] KOIDIV5004-23-49 11:41:00Negative *NA*(01/31/18 6:41 AM)[facility] TILMWL5210-68-75 11:41:00Negative *NA*(01/31/18 6:41 AM)[facility] XLTXMD2667-45-26 11:41:00Negative *NA*(01/31/18 6:41 AM)[facility] AEEMFT1904-32-28 11:41:00Negative *NA*(01/31/18 6:41 AM)[facility] SWKSHP3885-05-82 11:41:00Negative *NA*(01/31/18 6:41 AM)[facility] RNWCJY1467-67-68 11:41:00Negative *NA*(01/31/18 6:41 AM)[facility] ISAEPNWEPFPOM9821-37-57 11:41:00Negative *NA*(01/31/18 6:41 AM)[facility] VFPWYHTAOO3423-36-05 11:41:000.7[facility] PvjczqdZJNNSJFIKX4308-52-64 11:41:002.9 [facility] SceurtnVHZCDLADHT1947-93-45 11:41:000.2[facility]annHEMATOLOGY 2018-01-31 11:41:0055.3[facility] QhmawosTDYCVSKQJL2503-39-93 11:41:0033.5[facility] SskwqvjNLNEZBKQYF6536-31-79 11:41:008.5[facility] IjgjjqpTQHAADTOGF2035-17-99 11:41:000.4[facility] UnmlfydOPONNTSFPR0978-99-62 11:41:002.3[facility] ZYWFQGIFLQ6391-49-70 11:41:004.9[facility] JmrzpabGFYXEANFXO7389-42-72 11:41:008.8 [facility]CHE[facility] XXYZJ2007-77-42 11:15:96663Vkhiaknl HermannCHEM PANEL 2017-06-28 11:15:003.5[facility]annCHEM PSEOV4990-92-48 11:15:00 Test Item Value Reference Range Interpretation Comments A/G Ratio (test code = A/G Ratio) 1.1 1 0.7-1.6 [facility] UXEPN6022-80-41 11:15:00 Test Item Value Reference Range Interpretation Comments B/C Ratio (test code = B/C Ratio) 13 1 - [facility]annCHEM UKIGF7612-57-03 11:15:0013.6[facility]annCHEM PANEL 2017-06-28 11:15:007.2[facility]annCHEM VPKFW2831-31-45 11:15:0056[facility]annCHE[facility] XTFGI8327-24-47 11:15:000.2[facility]annCHEM JYINT0793-37-88 11:15:003.6[facility]annCHEM EOTFE1406-21-93 11:15:59254Ahozqjzf HermannCHEM VVQBS0501-32-71 11:15:008.9[facility]annCHE[facility] SNQSQ3810-59-01 11:15:85074 [facility]CHE[facility] AEMHQ0765-48-49 11:15:49058Stryfjga HermannCHEM PANEL 2017-06-28 11:15:0024[facility]annCHE[facility] SIFQE9704-86-06 11:15:0020[facility]annCHE[facility] NWPGU6056-21-42 11:15:0024[facility]annCHEM WVHSQ5922-65-10 11:15:003.7[facility]annCHEM BULNN7303-40-98 11:15:000.63[facility]annCHE[facility] RWZPI0437-05-88 11:15:008[facility]annCHEM NJDNY9298-07-60 11:15:63593 [facility] YxqbxctZFEDEYMOWLTAO2760-88-49 11:15:00Negative *NA*(06/28/17 6:15 AM) [facility] QlgfivpUPQANFUWRP6221-99-82 11:15:0015.4[facility]annHEMATOLOGY 2017-06-28 11:15:007.7[facility] IujwdchWRGUVESPGA2842-60-74 11:15:39397Fpmsdrge MyxnlykCRZEVLRYYH2126-14-04 11:15:0087.1[facility] NdmlspkKKXFFVUHWI1686-30-38 11:15:0037.9[facility] UgucrqoALKZTTYPPO7153-89-31 11:15:0033.3[facility] MQYWLUOYRY5838-01-71 11:15:00 Test Item Value Reference Range Interpretation Comments MCH (test code = MCH) 29.0 pg 27.0-31.0 [facility] FneymjtDFAOAYWPQK3132-76-90 11:15:0012.6[facility]annHEMATOLOGY 2017-06-28 11:15:004.35[facility] NuvpovlDFDYJXGZGD1739-27-48 11:15:0010.7[facility] QpovykuCNALFWYILD6930-31-81 11:15:000.8[facility] NhaubsmMMUFZZWCAA8089-02-88 11:15:000.2[facility] YdndewyGTGNXNWNNZ4070-10-57 11:15:0072.1[facility] UDGLKMAKXT0365-43-95 11:15:007.7[facility] AnbmvpwXWTJFZZIPA9838-16-82 11:15:002.0 [facility] OdvqqlsYIJIRVKTGC9062-85-06 11:15:000.4[facility]annHEMATOLOGY 2017-06-28 11:15:007.2[facility] JakgaurZIVCUFEIMU3367-90-92 11:15:001.7[facility] GelxotxEQHNRSNXOL0168-60-29 11:15:0018.6[facility] STOOL 2017-06-28 11:15:00Colorless *NA*(06/28/17 6:15 AM)[facility] CAYXM5434-97-57 11:15:00 Test Item Value Reference Range Interpretation Comments UA Spec Grav (test code = UA Spec 1.002 1 Grav) [facility] SYNSD5694-72-39 11:15:00Clear (06/28/17 6:15 AM) [facility] VTWOQ2155-93-54 11:15:00 Test Item Value Reference Range Interpretation Comments UA pH (test code = UA pH) 6.0 1 5.0-8.0 [facility] CAVIJ3039-43-53 11:15:00Moderate *ABN*(06/28/17 6:15 AM)[facility] VXPUK8528-20-60 11:15:00Negative *NA*(06/28/17 6:15 AM)[facility] DBZMC7294-94-43 11:15:00Negative (06/28/17 6:15 AM) [facility] MGOGP3119-65-63 11:15:001[facility] TOCHY8424-34-59 11:15:00Negative (06/28/17 6:15 AM)[facility] VXHHS8040-71-93 11:15:002[facility] WMKJM9893-26-95 11:15:001 [facility]annCHE[facility] MJKZQ8891-56-75 11:15:33607Qlsdxmxd HermannCHEM PANEL 2017-06-28 11:15:003.5[facility]annCHEM IMUVW0105-21-46 11:15:00 Test Item Value Reference Range Interpretation Comments A/G Ratio (test code = A/G Ratio) 1.1 1 0.7-1.6 [facility]CHE[facility] SFIVQ5945-37-95 11:15:00 Test Item Value Reference Range Interpretation Comments B/C Ratio (test code = B/C Ratio) 13 1 6-25 [facility]CHE[facility] HLFRJ9363-64-94 11:15:0013.6[facility]annCHEM PANEL 2017-06-28 11:15:007.2[facility]annCHEM LHGZU9558-19-23 11:15:0056[facility]annCHEM VZBLC3505-55-75 11:15:000.2[facility]annCHEM WKZOY6328-14-13 11:15:003.6[facility]annCHEM YPEYQ1072-87-16 11:15:47585Ygkeipwx HermannCHEM VELOC2821-94-84 11:15:008.9[facility]annCHEM WLECX0692-82-08 11:15:42867 [facility]annCHE[facility] SBZBR0598-46-66 11:15:97083Mgdmlvaz HermannCHEM PANEL 2017-06-28 11:15:0024[facility]annCHEM GGYLG9426-33-23 11:15:0020[facility]annCHEM UOIIS6498-22-57 11:15:0024[facility]annCHEM BIXQE2918-27-11 11:15:003.7[facility]annCHEM XRMMQ4647-61-04 11:15:000.63[facility]annCHEM JLOXK0667-18-28 11:15:008[facility]annCHEM ZBCQT3408-86-71 11:15:98545 [facility] QffvxulBWJNHDMQRUETY5996-16-34 11:15:00Negative *NA*(06/28/17 6:15 AM) [facility] DzzkrqtYAHZXNSWQM8572-70-28 11:15:0015.4[facility]annHEMATOLOGY 2017-06-28 11:15:007.7[facility] IbwepppRWYDSZLXFK5040-13-71 11:15:35357Qiwmnjrr MshjbvbINHXLTMBWY0202-51-22 11:15:0087.1[facility] DtojrnyMGJNPZNPLB1328-19-71 11:15:0037.9[facility] FnrcsljHJSYISKFWR6814-83-42 11:15:0033.3[facility] MTNSVDJSXF9000-82-20 11:15:00 Test Item Value Reference Range Interpretation Comments MCH (test code = MCH) 29.0 pg 27.0-31.0 [facility] NmbcbidJMHCLXGWHU1598-15-75 11:15:0012.6[facility]annHEMATOLOGY 2017-06-28 11:15:004.35[facility] OrggjbaAWYKFXZPXZ0843-15-41 11:15:0010.7[facility] IghfkyvYYQFVTPVLG7290-09-23 11:15:000.8[facility] ZnosuooDWTZDLSRND7010-48-03 11:15:000.2[facility] InmafncZPGCNWBOUK4722-56-44 11:15:0072.1[facility] YGHBWNAQEM5756-75-82 11:15:007.7[facility] OdwsmoqFXAWXEEUUD7065-38-65 11:15:002.0 [facility] JdywdjdFWTSHBQETH7241-72-74 11:15:000.4[facility]annHEMATOLOGY 2017-06-28 11:15:007.2[facility] GafnusxDFIHLYSOKM4085-92-17 11:15:001.7[facility] IivihkaMZAHKICKNY3852-42-33 11:15:0018.6[facility] STOOL 2017-06-28 11:15:00Colorless *NA*(06/28/17 6:15 AM)[facility] IJISG2121-27-28 11:15:00 Test Item Value Reference Range Interpretation Comments UA Spec Grav (test code = UA Spec 1.002 1 Grav) [facility] BYHXA1624-05-45 11:15:00Clear (06/28/17 6:15 AM) [facility] TNVDB4772-61-62 11:15:00 Test Item Value Reference Range Interpretation Comments UA pH (test code = UA pH) 6.0 1 5.0-8.0 [facility] OHHWK2236-09-74 11:15:00Moderate *ABN*(06/28/17 6:15 AM)[facility] OLUYR4638-59-02 11:15:00Negative *NA*(06/28/17 6:15 AM)[facility] HLADS0634-51-31 11:15:00Negative (06/28/17 6:15 AM) [facility] FUIMP2813-48-13 11:15:001[facility] CFHYX1637-53-11 11:15:00Negative (06/28/17 6:15 AM)[facility] SUGZS5710-10-39 11:15:002[facility] UDXBP0878-67-25 11:15:001 [facility]annCHEM LPPSC4820-64-80 11:15:52166Reuersaf HermannCHEM PANEL 2017-06-28 11:15:003.5[facility]annCHEM GFBLX9671-33-45 11:15:00 Test Item Value Reference Range Interpretation Comments A/G Ratio (test code = A/G Ratio) 1.1 1 0.7-1.6 [facility]CHE[facility] PGYSQ0990-99-18 11:15:00 Test Item Value Reference Range Interpretation Comments B/C Ratio (test code = B/C Ratio) 13 1 6-25 [facility]CHE[facility] UIQHA0486-18-73 11:15:0013.6[facility]annCHEM PANEL 2017-06-28 11:15:007.2[facility]annCHEM YBEYS7048-17-25 11:15:0056[facility]annCHEM CXQYD4146-98-11 11:15:000.2[facility]annCHEM DQREJ4662-60-27 11:15:003.6[facility]annCHEM XSAXO3616-05-78 11:15:22537Alflglbv HermannCHEM UDTPT5518-37-05 11:15:008.9[facility]annCHEM LYQQH5776-32-56 11:15:38213 [facility]annCHE[facility] CXWXC0211-51-81 11:15:99340Okowqbgp HermannCHEM PANEL 2017-06-28 11:15:0024[facility]annCHEM YGHTV6413-09-57 11:15:0020[facility]annCHEM FYVXG0249-80-52 11:15:0024[facility]annCHEM SLYGK2654-34-25 11:15:003.7[facility]annCHEM SRYLP3030-54-20 11:15:000.63[facility]annCHEM FLZOP1867-83-40 11:15:008[facility]annCHEM BGDPJ4917-50-80 11:15:48669 [facility] TdhuxgvTLJVEHGRVDMKS7261-16-14 11:15:00Negative *NA*(06/28/17 6:15 AM) [facility] WinjcvwQHAGFNMROA8652-37-02 11:15:0015.4[facility]annHEMATOLOGY 2017-06-28 11:15:007.7[facility] WdmbjmwAMEROTAVTD6317-28-10 11:15:60565Pmaapsuq SkekkwuOWKAAOBOOU6984-16-97 11:15:0087.1[facility] EhtcuyiKPIMLIMSGE4483-49-93 11:15:0037.9[facility] RnzkykuFMJNRYXPPR8063-60-71 11:15:0033.3[facility] GKDRLJVMOJ5736-09-38 11:15:00 Test Item Value Reference Range Interpretation Comments MCH (test code = MCH) 29.0 pg 27.0-31.0 [facility] HhogljdEZUYODANAW8159-11-50 11:15:0012.6[facility]annHEMATOLOGY 2017-06-28 11:15:004.35[facility] ClppzzqFCLUYELNGJ4360-55-31 11:15:0010.7[facility] LzxcnppIBHIRWPJPC9576-10-28 11:15:000.8[facility] JevlymcCWSMIKNETS7235-64-40 11:15:000.2[facility] ZgrazznTDZYMOOZVV5936-44-55 11:15:0072.1[facility] XHNCCREPBT9572-10-63 11:15:007.7[facility] NcvnjnwMMVLXFFLTW0278-43-08 11:15:002.0 [facility] AfsfrhgJGJMRNBJOF0970-86-44 11:15:000.4[facility]annHEMATOLOGY 2017-06-28 11:15:007.2[facility] XsfxbtlRAQLTPPZSY9405-52-03 11:15:001.7[facility] LhsksbbXOYOCYMNVP5047-39-10 11:15:0018.6[facility] STOOL 2017-06-28 11:15:00Colorless *NA*(06/28/17 6:15 AM)[facility] FARVC4666-17-35 11:15:00 Test Item Value Reference Range Interpretation Comments UA Spec Grav (test code = UA Spec 1.002 1 Grav) [facility] RVDHY8659-31-01 11:15:00Clear (06/28/17 6:15 AM) [facility] EAUZV1729-37-68 11:15:00 Test Item Value Reference Range Interpretation Comments UA pH (test code = UA pH) 6.0 1 5.0-8.0 [facility] GRFQS2704-48-35 11:15:00Moderate *ABN*(06/28/17 6:15 AM)[facility] CVSRF3805-90-91 11:15:00Negative *NA*(06/28/17 6:15 AM)[facility] UYHJE8117-69-24 11:15:00Negative (06/28/17 6:15 AM) [facility] LNQNZ6216-88-47 11:15:001[facility] WKSKW6856-68-87 11:15:00Negative (06/28/17 6:15 AM)[facility] RZCFJ5160-64-53 11:15:002[facility] WJSVR8700-31-33 11:15:001 [facility]annCHEM MAPML8023-19-72 11:15:11275Smqdzftc HermannCHEM PANEL 2017-06-28 11:15:003.5[facility] HermannCHEM SOADL5486-48-56 11:15:00 Test Item Value Reference Range Interpretation Comments A/G Ratio (test code = A/G Ratio) 1.1 1 0.7-1.6 [facility]annCHEM WYYOM5075-31-58 11:15:00 Test Item Value Reference Range Interpretation Comments B/C Ratio (test code = B/C Ratio) 13 1 6-25 [facility]annCHEM GJXCE3434-48-12 11:15:0013.6[facility] HermannCHEM PANEL 2017-06-28 11:15:007.2[facility]annCHEM KXKBS1189-78-11 11:15:0056[facility]annCHEM VWHTR3348-15-91 11:15:000.2[facility]annCHEM HVSUT5616-66-47 11:15:003.6[facility]annCHEM JSVXJ1904-52-51 11:15:97671Rpdlcijp HermannCHEM UCTZU6577-48-55 11:15:008.9[facility]annCHEM OJWVN3770-36-25 11:15:21424 [facility]annCHE[facility] JBWXY1000-42-81 11:15:55608Ibzpvplo HermannCHEM PANEL 2017-06-28 11:15:0024[facility]annCHEM AQDVM9159-12-33 11:15:0020[facility]annCHEM KRBPU8929-01-57 11:15:0024[facility]annCHEM MKZTU0650-13-95 11:15:003.7[facility]annCHEM WTDXE7264-54-23 11:15:000.63[facility]annCHEM NJGXV3220-59-18 11:15:008[facility]annCHEM FHWYH4475-99-64 11:15:80722 [facility] WlnmyobSDTWTQJVXLUZA9810-25-28 11:15:00Negative *NA*(06/28/17 6:15 AM) [facility] DylplcjMLZMTWFOQW4619-22-68 11:15:0015.4[facility]annHEMATOLOGY 2017-06-28 11:15:007.7[facility] RjutbqtDXMTXNHBND7892-41-35 11:15:71694Vemjmoyh AgqbhobEWJPTHSNJU4735-62-71 11:15:0087.1[facility] JgiffkeEENYUPEFJU3778-21-07 11:15:0037.9[facility] MiwquasJCSFCBDCDZ5544-70-40 11:15:0033.3[facility] DQZGKPMXMC5749-75-96 11:15:00 Test Item Value Reference Range Interpretation Comments MCH (test code = MCH) 29.0 pg 27.0-31.0 [facility] KkxwhumFDNLARKEIE5485-62-60 11:15:0012.6[facility]annHEMATOLOGY 2017-06-28 11:15:004.35[facility] RyfsplkAFQBKYAUXK4296-59-79 11:15:0010.7[facility] LaemjqnEMYVNGPHBU9664-45-54 11:15:000.8[facility] KexeokyUMFRXVEEQT1018-40-31 11:15:000.2[facility] ZghmycwSXQFCBJNJS1795-65-32 11:15:0072.1[facility] PMSWCSKDOZ1423-26-96 11:15:007.7[facility] XihomqgAQRKLYQTPL6680-19-56 11:15:002.0 [facility] YsosrnhNFFDMKOFMZ2176-53-55 11:15:000.4[facility] 2017-06-28 11:15:007.2[facility] FnozflsJVTRUFRLYH3164-49-61 11:15:001.7[facility] BpjoazmNXLEFLSSRR1668-00-64 11:15:0018.6[facility] STOOL 2017-06-28 11:15:00Colorless *NA*(06/28/17 6:15 AM)[facility] [id number] 11:15:00 Test Item Value Reference Range Interpretation Comments UA Spec Grav (test code = UA Spec 1.002 1 Grav) [facility] [id number] 11:15:00Clear (06/28/17 6:15 AM) [facility] [id number] 11:15:00 Test Item Value Reference Range Interpretation Comments UA pH (test code = UA pH) 6.0 1 5.0-8.0 [facility] [id number] 11:15:00Moderate *ABN*(06/28/17 6:15 AM)[facility] [id number] 11:15:00Negative *NA*(06/28/17 6:15 AM)[facility] [id number] 11:15:00Negative (06/28/17 6:15 AM) [facility] [id number] 11:15:001[facility] PDPTT2209-32-78 11:15:00Negative (06/28/17 6:15 AM)[facility] [id number] 11:15:002[facility] [id number] 11:15:001 [facility] [place]
== END 2021-02-05 06:26 | disposition home or self-care (01) ==
LOC: ER 03:29
DX: R51.9 Headache, unspecified (principal); F31.9 Bipolar disorder, unspecified; F17.210 Nicotine dependence, cigarettes, uncomplicated; Z88.1 Allergy status to other antibiotic agents; Z88.8 Allergy status to other drugs, medicaments and biological substances
CPT/HCPCS: 36415; 80048; 80076; 80307; 80320; 80329; 81003; 81015; 85025; 85610; 85730; 87077; 87086; 87088; 87186; 93005; 99284; J7030

== ENCOUNTER 2021-02-27 23:38 | Emergency (ER) | payer SELFPAY ==
--- OUTSIDE RECORDS SUMMARY | 2021-02-27 23:48 | XMS REPORT | Continuity of Care Document ---
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 mm[Hg] [facility] [place] [facility] Diastolic blood 2020-09-24 05:34:00 73 mm[Hg] [facility] [place] [facility] Heart rate 2020-09-24 05:34:00 75 /min [facility] Body temperature 2020-09-24 05:34:00 36.94 [facility] Respiratory rate 2020-09-24 05:34:00 18 /min [facility] [place] [facility] Body height 2020-09-24 05:34:00 160 cm [facility] Body weight 2020-09-24 05:34:00 48.081 kg [facility] BMI 2020-09-24 05:34:00 18.78 kg/m2 [facility] Oxygen saturation in 2020-09-24 05:34:00 100 /min [facility] Arterial blood by [facility] Pulse oximetry Branch Systolic blood 2020-09-24 05:34:00 121 mm[Hg] [facility] [place] [facility] Diastolic blood 2020-09-24 05:34:00 73 mm[Hg] [facility] [place] [facility] Heart rate 2020-09-24 05:34:00 75 /min [facility] [place] [facility] Body temperature 2020-09-24 05:34:00 36.94 [facility] [place] [facility] Respiratory rate 2020-09-24 05:34:00 18 /min [facility] [place] [facility] Body height 2020-09-24 05:34:00 160 cm [facility] [place] [facility] Body weight 2020-09-24 05:34:00 48.081 kg [facility] [place] [facility] BMI 2020-09-24 05:34:00 18.78 kg/m2 [facility] Oxygen saturation in 2020-09-24 05:34:00 100 /min [facility] Arterial blood by [facility] Pulse oximetry Branch Systolic blood 2018-11-26 08:35:00 136 mm[Hg] [facility] [place] [facility] Diastolic blood 2018-11-26 08:35:00 61 [...] 2018-11-26 08:35:00 18.78 kg/m2 [facility] [place] [facility] Oxygen saturation in 2018-11-26 08:35:00 99 /min [facility] Arterial blood by [facility] richard Pulse oximetry Branch Systolic blood 2018-11-26 08:35:00 136 mm[Hg] [facility] [place] [facility] Diastolic blood 2018-11-26 08:35:00 61 mm[Hg] [facility] [place] [facility] Heart rate 2018-11-26 08:35:00 84 /min [facility] [place] [facility] Body temperature 2018-11-26 08:35:00 36.94 [facility] [place] [facility] Respiratory rate 2018-11-26 08:35:00 18 /min [facility] [place] [facility] Body weight 2018-11-26 08:35:00 48.081 kg [facility] [place] [facility] BMI 2018-11-26 08:35:00 18.78 kg/m2 [facility] Oxygen saturation in 2018-11-26 08:35:00 99 /min [facility] Arterial blood by [facility] richard Pulse oximetry Branch Systolic blood 2018-11-04 06:38:00 119 mm[Hg] [facility] [place] [facility] Diastolic blood 2018-11-04 06:38:00 73 mm[Hg] [facility] [place] [facility] Heart rate 2018-11-04 06:38:00 89 /min [facility] [place] [facility] Body temperature 2018-11-04 06:38:00 36.67 [facility] [place] [facility] Respiratory rate 2018-11-04 06:38:00 20 /min [facility] [place] [facility] Body height 2018-11-04 06:38:00 160 cm [facility] Body weight 2018-11-04 06:38:00 47.628 kg [facility] [place] [facility] BMI 2018-11-04 06:38:00 18.60 kg/m2 [facility] Oxygen saturation in 2018-11-04 06:38:00 100 /min [facility] Arterial blood by [facility] Pulse oximetry Branch Systolic blood 2018-11-04 06:38:00 119 mm[Hg] [facility] [place] [facility] Diastolic blood 2018-11-04 06:38:00 73 mm[Hg] [facility] [place] [facility] Heart rate 2018-11-04 06:38:00 89 /min [facility] [place] [facility] Body temperature 2018-11-04 06:38:00 36.67 [facility] [place] [facility] Respiratory rate 2018-11-04 06:38:00 20 /min [facility] [place] [facility] Body height 2018-11-04 06:38:00 160 cm [facility] Body weight 2018-11-04 06:38:00 47.628 kg [facility] [place] [facility] BMI 2018-11-04 06:38:00 18.60 kg/m2 [facility] Oxygen saturation in 2018-11-04 06:38:00 100 /min [facility] Arterial blood by [facility] Pulse oximetry Branch Temperature Oral (F) 2018-04-14 19:01:00 98.2 F [facility] Systolic (mm Hg) 2018-04-14 16:00:00 [facility] [place] Diastolic (mm Hg) 2018-04-14 16:00:00 [facility] Respitory Rate 2018-04-14 16:00:00 [facility] [place] Systolic (mm Hg) 2018-04-14 15:00:00 [facility] Diastolic (mm Hg) 2018-04-14 15:00:00 [facility] Respitory Rate 2018-04-14 15:00:00 [facility] Systolic (mm Hg) 2018-04-14 14:00:00 [facility] Diastolic (mm Hg) 2018-04-14 14:00:00 [facility] Respitory Rate 2018-04-14 14:00:00 [facility] Temperature Oral (F) 2018-04-14 13:35:00 97.2 F [facility] Temperature Oral (F) 2018-04-14 10:00:00 97.6 F [facility] Heart Rate 2018-04-14 03:11:00 [facility] Heart Rate 2018-04-14 01:02:00 [facility] Weight 2018-04-13 19:53:00 [facility] Height 2018-04-13 19:53:00 160.02 cm [facility] BMI Calculated 2018-04-13 19:53:00 [facility] [place] Heart Rate 2018-04-13 19:53:00 [facility] Systolic (mm Hg) 2018-01-31 19:28:00 [facility] Diastolic (mm Hg) 2018-01-31 19:28:00 [facility] [place] Heart Rate 2018-01-31 19:28:00 [facility] Respitory Rate 2018-01-31 19:28:00 [facility] [place] Weight 2018-01-31 19:28:00 [facility] Temperature Oral (F) 2018-01-31 19:28:00 97.9 F [facility] Systolic (mm Hg) 2018-01-31 16:00:00 [facility] [place] Diastolic (mm Hg) 2018-01-31 16:00:00 [facility] [place] Respitory Rate 2018-01-31 16:00:00 [facility] Respitory Rate 2018-01-31 15:07:00 [facility] Systolic (mm Hg) 2018-01-31 15:07:00 [facility] [place] Diastolic (mm Hg) 2018-01-31 15:07:00 [facility] [place] Respitory Rate 2018-01-31 14:02:00 [facility] [place] Systolic (mm Hg) 2018-01-31 14:02:00 [facility] Diastolic (mm Hg) 2018-01-31 14:02:00 [facility] [place] Temperature Oral (F) 2018-01-31 10:46:00 98.6 F [facility] Heart Rate 2018-01-31 10:46:00 [facility] Systolic (mm Hg) 2017-06-28 14:36:00 [facility] Diastolic (mm Hg) 2017-06-28 14:36:00 [facility] [place] Temperature Oral (F) 2017-06-28 14:36:00 98.1 F [facility] Respitory Rate 2017-06-28 14:36:00 [facility] Heart Rate 2017-06-28 14:36:00 [facility] [place] Respitory Rate 2017-06-28 09:31:00 [facility] [place] Temperature Oral (F) 2017-06-28 09:31:00 97.9 F [facility] Weight 2017-06-28 09:31:00 [facility] Heart Rate 2017-06-28 09:31:00 [facility] Systolic (mm Hg) 2017-06-28 09:31:00 [facility] [place] Diastolic (mm Hg) 2017-06-28 09:31:00 [facility] Procedures Procedure Date / Time Performed Performing Clinician [facility] e CONSENT/REFUSAL FOR 2021-02-20 05:09:04 Doctor Unassigned, No [facility] [place] [facility] TREATMENT NOTICE OF PRIVACY 2020-12-17 05:49:43 Doctor Unassigned, No [facility] [place] [facility] CONSENT/REFUSAL FOR 2020-12-17 05:49:22 Doctor Unassigned, No [facility] [place] [facility] TREATMENT CONSENT/REFUSAL FOR 2020-11-07 08:31:45 Doctor Unassigned, No [facility] [place] [facility] Name [facility] TREATMENT NOTICE OF PRIVACY 2020-09-28 05:36:52 Doctor Unassigned, No [facility] [place] [facility] CONSENT/REFUSAL FOR 2020-09-28 05:31:04 Doctor Unassigned, No [facility] [place] [facility] TREATMENT XR ANKLE 3+ VW RIGHT 2020-09-24 05:48:05 Umu Bar[facility] XR FOOT 3+ VW RIGHT 2018-11-26 08:52:27 Umu Barillas [facility] [place] [facility] NOTICE OF PRIVACY 2018-11-26 08:32:51 Doctor Unassigned, No [facility] [place] [facility] Name [facility] CONSENT/REFUSAL FOR 2018-11-26 08:31:21 Doctor Unassigned, No [facility] [place] [facility] Name [facility] TREATMENT EKG-12 LEAD 2018-11-04 07:40:11 [facility] Medical Branch POCT GLUCOSE 2018-11-04 07:33:00 [facility] (AUTOMATED) Medical Branch CONSENT/REFUSAL FOR 2018-11-04 06:31:07 Doctor Unassigned, No [facility] [place] [facility] Name [facility] TREATMENT Plan of Care Planned Activity Planned Date Details Comments Source Future Scheduled 2019-12-04 INFLUENZA VACCINE (#1) [facility] 00:[facility]:00 [code = INFLUENZA Medical Ce nter VACCINE (#1)] Future Scheduled [address] [facility] Test 00:00:00 (procedure) [code = [facility] 03302930] Future Scheduled [address] [facility] 00:[facility]00 [facility] cervix (procedure) [code = 980249098] Future Scheduled [address] [facility] - Test 00:00:00 0-64 YRS (1 of 1 - Medical C enter PPSV23) [code = PNEUMOCOCCAL VACCINE 0-64 YRS (1 of 1 - PPSV23)] Future Scheduled [address] [facility] - Test 00:00:00 malignant [facility] breast (procedure) [code = 783312659] Future Scheduled [address] [facility] - Test 00:00:00 malignant ne[facility] colon (procedure) [code = 089248078] Future Scheduled [facility] [code = COLONOSCOPY SCREENING] Future Scheduled SHINGLES [facility]INES (#[facility]) [facility] [code = SHINGLES VACCINES (#1)] Future Scheduled [facility] [code = INFLU[facility]ZA VACCINE] Future Scheduled COVID-19 [facility]ACCINE (1) [facility] [code = COVID-19 VACCINE (1)] Future Scheduled Screening for [facility] Test malignant neoplasm of cervix (procedure) [code = 013787948] Future Scheduled BREAST CANCER [facility] Test SCREENING [code = BREAST CANCER SCREENING] Encounters Start End Encounter Admission Attending Care Care Encounter Source Date/Time Date/Time Type Type Clinicians Facility Department ID 2021-02-19 2021-02-20 Located Within [id number] Univers 23:23:00 01:46:00 TAHIR strickland [facility] 2021-02-19 2021-02-20 [facility] [id number] Univers 23:23:00 01:46:00 Tahir Baron RIAN [id number] ity of [place] 4.2.7.2.[address] [facility] [id number] [address] 2021-01-12 2021-01-12 [facility] [id number] Univers 03:24:00 03:55:00 Umu Mead [id number] ity of [place] 4.2.7.2.686 [facility] [id number] [address] 2021-01-12 2021-01-12 [facility] ERT [id number] Univers 03:24:00 03:24:00 UMU strickland [facility] 2021-01-11 2021-01-11 [facility] [id number] Univers 19:24:00 20:00:00 Umu Mead [id number] ity of [place] 4.2.7.2.686 [facility] [id number] [address] 2021-01-11 2021-01-11 Emergency X NARGIS, [facility] ERT [id number] Univers 19:24:00 19:24:00 UMU ity [facility] 2020-12-17 2020-12-17 Emergency Malloy, [facility] [id number] Univers 01:00:00 01:40:00 Donnie Rainier [id number] i ty of [place] [address] [place] [id number] 2020-12-17 2020-12-17 Emergency X [facility] ERT [id number] Univers 00:47:00 00:47:00 ity [facility] 2020-11-07 2020-11-07 Emergency Counts include 234 beds at the [facility] [id number] 03:52:00 06:43:00 Tahir Loraine Rainier [id number] [place] [address] [place] [address] [id number] [facility] 2020-11-07 2020-11-07 Emergency [facility], [facility] [id number] Univers 03:52:00 06:43:00 Tahir Loraine Rainier [id number] ity of [place] [address].7.[address] [place] [id number] 2020-11-07 2020-11-07 Emergency X [facility] ERT [id number] Univers 03:31:00 03:31:00 ity [facility] 2020-09-27 2020-09-28 Emergency [facility], [facility] [id number] 23:09:00 03:14:00 Shahbazelvigianna Baron [place] 350.1.13.[address] [place] [address] [place] [address] [id number] [facility] 2020-09-27 2020-09-28 Emergency [facility], [facility] [id number] Univers 23:09:00 03:14:00 Tahir Loraine Rainier 350.1.13.10 ity of [place] 4.2.7.2.686 [facility] [id number] [address] 2020-09-27 2020-09-27 Emergency X LULI [facility] ERT [id number] Univers 23:09:00 23:09:00 TAHIR strickland [facility] 2020-09-24 2020-09-24 [facility] [id number] 00:36:00 01:37:00 Umu Mead 350.1.13.10 [place] 4.2.7.2.686 [place] [id number] 08 2020-09-24 2020-09-24 [facility] [id number] [facility] 00:36:00 01:37:00 Umu Mead [id number] ity of [place] 4.2.7.2.686 [facility] [id number] [address] 2020-09-24 2020-09-24 [facility] [id number] Univers 00:36:00 00:36:00 UMU strickland [facility] 2018-11-27 2018-11-27 Patient Edilia Gonzalez [id number] 00:00:00 00:00:00 Outreach E New 350.1.13.10 [place] 4.2.7.2.686 [id number] 2018-11-27 2018-11-27 Patient Edilia Gonzalez 1.2.840.[id number] [facility] 00:00:00 00:00:00 Outreach E New 350.1.13.10 i ty of [place] 4.2.7.2.686 [facility] [id number] [facility] 403 Branch 2018-11-26 2018-11-26 [facility] 1.2.840.114 [id number] 03:43:44 04:30:00 Uum Mead 350.1.13.10 [place] 4.2.7.2.686 [place] [id number] [facility] 2018-11-26 2018-11-26 [facility] 1.2.840.[id number] [facility] 03:43:44 04:30:00 Umu Juan Mead 350.1.13.10 ity of [place] 4.2.7.2.686 [facility] [id number] [address] 2018-11-04 2018-11-04 Emergency Gil, [facility] [id number] 02:27:58 03:11:00 David Plascenciaton 350.1.13.10 [place] 4.2.7.2.686 [place] [id number] [facility] 2018-11-04 2018-11-04 Emergency Gil, [facility] [id number] [facility] 02:27:58 03:11:00 David Mead 350.1.13.10 i ty of [place] 4.2.7.2.686 [facility] [id number] [address] 2018-11-04 2018-11-04 Orders Doctor MONTALVO 1.2.840.114 [id number] 00:00:00 00:00:00 Only Unassigned, [place] 350.1.13.10 [place] [facility] 4.2.7.2.686 [id number] [facility] 2018-11-04 2018-11-04 Orders Doctor SELVIN 1.2.840.[id number] [facility] 00:00:00 00:00:00 Only Unassigned, HILTON 350.1.13.10 ity of [place] [facility] 4.2.7.2.686 [facility] [id number] [address] 2018-04-17 2018-04-19 Phone nullFlavo NHA [id number] Memoria 19:55:00 05:59:59 Message r Neurosurger 00 l y [facility] 2018-04-13 2018-04-[address] [facility] [id number] Mem[facility] 19:48:00 19:15:00 desi Jo 10 [facility] 2018-01-31 2018-01-31 Emergency nullFlavo [facility] [id number] Memoria 19:12:00 23:03:00 desi Jo 01 [facility] 2018-01-31 2018-01-31 Emergency nullFlavo [facility] [id number] Memoria 10:46:00 18:01:00 [place] 03 l [facility] 2017-07-02 2017-07-02 Emergency E [facility] [id number] 08:16:00 08:16:00 [facility] 2017-06-28 2017-06-28 Emergency [facility] [id number] [facility] 09:28:00 14:45:00 [place] 00 l [facility] Results Test Description Test Test Results Result Source Time Comments Comments XR FOOT 3+ VW 2018-11- No acute osseous Univ ersity of RIGHT 25 injury identified. [facility] 09:14:11 Severe osteoarthritis Bra nch of the [...] Item Value Reference Range Interpretation Comme nts POCT GLU (test code = 8138445680) 111 mg/dL 70-110 H Lab Interpretation (test code = 79701-7) [facility] [id number] 08:06:00 Test Item Value Reference Range Interpretation Comments SCAN RESULT (test code = 2537517) CELIAC DISEASE PROFILE Refer to Celiac AUTOVERIFICATION (QUEST) Disease Panel (test code = 3772771) results. CT, [id number] 19:42:00Only need IV contrast, not POFINAL REPORT [...] small bowel ob struction. Signed: Doyle Simeon MDRivaniaort Verified Date/Time: 09/05/2018 19:42:13 Reading Location: [address] Consult Reading Room RAD, ABDOMEN/KUB, 1 VIEW AP 2018-09-05 15:30:00Reason for exam:->look for retained video capsuleAddendum BeginsREPORT STATUS:A Addendum:The video capsule is seen projected over the right iliac wing. It could be in the distal ileum versus large bowel. If in exact location isneeded. CT scan will be necessary. End of addendum. Signed: Reza Lira MDReport Verified Date/Time: 09/05/2018 15:30:35 Reading Location: [facility] Radiology Reading RoomAddendum EndsFINAL REPORT TECHNIQUE: Supine radiograph of the abdomen dated 09/05/2018 HISTORY: Evaluate for retained video capsule. COMPARISON: None IMPRESSION:No air-filled, dilated loops of bowel to suggest obstruction. No free intraperitoneal air. No abnormal soft tissue mass. No radiodense foreign body v isualized. Bones are unremarkable. Signed: Reza Lira MDReport Verified Date/Time: 09/05/2018 14:53:33 Reading Location: [facility] Radiology Reading Room GI PATHOGEN PROFILE BY [id number] 10:43:00 Test Item Value Reference Range Interpretation [...] Not detected BY PCR (test code = 8020128) ENTEROPATHOGENIC E. COLI (EPEC) Not detected Not detected BY PCR (test code = 20151106) ENTEROTOXIGENIC E. COLI (ETEC) Not detected Not detected LT/ST BY PCR (test code = 7393143) SHIGA-LIKE TOXIN-PRODUCING E. Not detected Not detected [...] (test Not detected Not detected code = 4554796) ROTAVIRUS A (PCR) (test code = Not detected Not detected 20151209) SAPOVIRUS (I, II, IV, V) BY PCR Not detected Not detected (test code = 5533462) VIBRIO (PARAHAEMOLYTICUS, Not detected Not detected VULNIFICUS) (test code = 1174945) Other viruses, parasites and bacteria not targeted by this PCR panel cannot be excluded; therefore clinical correlation and follow up of serology, culture results, and other molecular studies is required. The results are not intended to be used as the sole means for clinical diagnosis or patient management decisions. This sample was tested at the [facility] Molecular Diagnostics Laboratory using the [employer] Gastrointestinal Panel. It is FDA cleared and has been verified and approved by the [facility] Molecular Diagnostics Laboratory for clinical use. This laboratory is CLIA-certified and College ofAmerican Pathologists (CAP)-accredited to perform high complexity testing.BASIC METABOLIC [id number] 05:42:00 Test Item Value Reference Range Interpretation [...] 0-0 (BEAKER) (test code = 413) C-REACTIVE [id number] 18:59:00 Test Item Value Reference Range Interpretation Comments C-REACTIVE PROTEIN (BEAKER) (test 0.38 mg/dL 0.00-0.50 code = 676) [id number] 05:48:00 Test Item Value Reference Range Interpretation Comments FERRITIN (BEAKER) (test code = 361) 13 ng/mL 5-275 BASIC METABOLIC [id number] 05:27:00 Test Item Value Reference Range Interpretation [...] 0-0 (BEAKER) (test code = 413) RETICULOCYTE [id number] 05:05:00 Test Item Value Reference Range Interpretation Comments RETICULOCYTE COUNT PCT (BEAKER) (test 1.1 % 0.5-1.7 code = 575) SCREEN, [id number] 15:17:00 Test Item Value Reference Range Interpretation Comments TEST URINE (BEAKER) (test Negative code = 583) BASIC METABOLIC [id number] 04:53:00 Test Item Value Reference Range Interpretation [...] 0-0 (BEAKER) (test code = 413) CHEM [id number] 03:57:[facility] [id number] 03:57:000.3 [facility] [id number] 03:57:00 Test Item Value Reference Range Interpretation Comments A/G Ratio (test code = A/G Ratio) 1.0 1 0.7-1.6 [facility] [id number] 03:57:000.1[facility] PANEL 2018-04-14 03:57:000.4[facility] [id number] 03:57:0049[facility] [id number] 03:57:0024[facility] [id number] 03:57:006.0[facility] [id number] 03:57:0019[facility] [id number] 03:57:003.0[facility] [id number] 03:57:003.0 [facility] [id number] 03:57:000.3[facility] PANEL 2018-04-14 03:57:00 Test Item Value Reference Range Interpretation Comments A/G Ratio (test code = A/G Ratio) 1.0 1 0.7-1.6 [facility] [id number] 03:57:000.1[facility] PANEL 2018-04-14 03:57:000.4[facility] [id number] 03:57:0049[facility] [id number] 03:57:0024[facility] [id number] 03:57:006.0[facility] [id number] 03:57:0019[facility] [id number] 03:57:003.0[facility] [id number] 03:57:003.0 [facility] [id number] 03:57:000.3[facility]annCHEM PANEL 2018-04-14 03:57:00 Test Item Value Reference Range Interpretation Comments A/G Ratio (test code = A/G Ratio) 1.0 1 0.7-1.6 [facility] MZIYH5427-10-80 03:57:000.1[facility]annCHEM PANEL 2018-04-14 03:57:000.4[facility]annCHEM UGZIW3179-22-03 03:57:0049[facility]annCHE[facility] JSPPM2151-99-72 03:57:0024[facility]annCHEM NFIXT8509-05-29 03:57:006.0[facility]annCHE[facility] TLMSL4264-40-77 03:57:0019[facility]annCHEM JGYZI1143-95-69 03:57:003.0[facility]annCHEM LNTQU6301-31-74 03:57:003.0 [facility] XAVDM9876-41-14 03:57:000.3[facility]annCHEM PANEL 2018-04-14 03:57:00 Test Item Value Reference Range Interpretation Comments A/G Ratio (test code = A/G Ratio) 1.0 1 0.7-1.6 [facility] QDZMA2853-94-41 03:57:000.1[facility]annCHEM PANEL 2018-04-14 03:57:000.4[facility]annCHEM EKAOM9629-94-95 03:57:0049[facility]annCHEM IMSVK0486-37-68 03:57:0024[facility]annCHEM HEQTF1920-81-76 03:57:006.0[facility]annCHEM JLEIR9652-88-47 03:57:0019[facility]annCHEM QYSXJ8409-18-82 03:57:003.0[facility]annCHEM IOLAG4021-72-50 21:07:53840 [facility] HermannCHEM TOYWS1095-49-36 21:07:82776Zvqffoxn HermannCHEM PANEL 2018-04-13 21:07:0023[facility]annCHEM TRYOJ0159-41-33 21:07:000.58[facility]annCHEM VVGUB3647-30-61 21:07:74069Ifawonns HermannCHEM WUKQK4101-99-41 21:07:004.4[facility]annCHEM MVYGY7545-95-12 21:07:008.6[facility]annCHEM BBIRZ5235-52-95 21:07:007[facility]annCHEM WNICB8114-06-00 21:07:22230 [facility] RGPFU9053-21-00 21:07:0013.4[facility]annHEMATOLOGY 2018-04-13 21:07:002.1[facility] AliceAqnnploGJWJZJEVPF2094-46-66 21:07:00 Test Item Value Reference Range Interpretation Comments Angle Rapid (test code = Angle 75 degrees 64-80 Rapid) [facility]DqaomlcLHRTBUIAMJ0949-31-26 21:07:008.6[facility] 2018-04-13 21:07:00 Test Item Value Reference Range Interpretation Comments Max Amplitude Rapid (test code = Max 63 mm 52-71 Amplitude Rapid) [facility]anoOycdvitLAKCBWBZQR2243-07-42 21:07:00 Test Item Value Reference Range Interpretation Comments R-time Rapid (test code = R-time 0.7 min 0.4-0.7 Rapid) [facility]anoYeuiadxVFXEMKASIM3313-74-19 21:07:00 Test Item Value Reference Range Interpretation Comments K-time Rapid (test code = K-time 1.2 min 0.6-2.3 Rapid) [facility]anoUfgjipjPYSDYEMINY9801-06-06 21:07:00 Test Item Value Reference Range Interpretation Comments ACT (TEG) Rapid (test code = ACT (TEG) 113 s 86-118 Rapid) [facility]anoDaiamnwOSYPDKYEAW5330-06-24 21:07:00 Test Item Value Reference Range Interpretation Comments Split Point Rapid (test code = Split 0.6 min Point Rapid) [facility] UivwgwlSOEUDEJUBO0251-14-54 21:07:00 Test Item Value Reference Range Interpretation Comments PTT (test code = PTT) 30.6 s 22.9-35.8 [facility] AnhclyvFCJCRYRMKK0927-45-54 21:07:00 Test Item Value Reference Range Interpretation Comments INR (test code = INR) 1.03 1 0.85-1.17 [facility] VdcvylfGAYKYVZQQQ5199-23-37 21:07:00 Test Item Value Reference Range Interpretation Comments PT (test code = PT) 13.3 s 12.0-14.7 [facility] SjdcitfIGXNMEETER8040-82-91 21:07:0011.1[facility]annHEMATOLOGY 2018-04-13 21:07:0033.7[facility] PtrzqmyERMKYMRUFI8619-83-98 21:07:004.04[facility] NhbjsobSOHZWPGTWH6064-76-61 21:07:005.8[facility] KxbydqfUGJCZWNDWD3148-17-66 21:07:0017.2[facility] CblfyjqRHQFJOQRJU4900-08-86 21:07:07784Prptxlin [facility] RMYRBFSGAF4213-66-40 21:07:0032.9[facility] ImbjgasXEPRFPMZDL3471-17-28 21:07:00 83.5[facility] IvjcjvbVVZWEYBBLW3640-48-38 21:07:00 Test Item Value Reference Range Interpretation Comments MCH (test code = MCH) 27.5 pg 27.0-31.0 [facility] WcpqwgzGOQXSHBEDS4147-09-99 21:07:008.4[facility]annHEMATOLOGY 2018-04-13 21:07:0056.3[facility] QocpspzWSBNRRIEQS4849-54-53 21:07:0029.4[facility] WkiaxlcIMCHPDIALY4879-29-59 21:07:009.6[facility] ZebgcolFOSPLNEDDF7740-88-04 21:07:004.0[facility] BuzzzuzMPIIRCVQTZ2581-48-19 21:07:000.7[facility] TPQHLMWUSO5131-04-08 21:07:003.3[facility] JvfcucaCSGDTUMPRN1037-27-47 21:07:001.7 [facility] UvdjdhzFPLLZGBPYQ3922-98-01 21:07:000.6[facility] 2018-04-13 21:07:000.2[facility] HermannCHEM YLJWZ8008-94-39 21:07:28700Ichzqytc HermannCHEM DPPQB4170-04-59 21:07:56064Wievvpah HermannCHEM AVXJX0941-15-59 21:07:0023[facility]annCHEM DAMZH7184-01-32 21:07:000.58[facility]annCHEM YTGJI4169-54-05 21:07:00264Xojwgoyy HermannCHEM TAGRN4273-54-33 21:07:004.4 [facility]annCHE[facility] UISAJ7542-22-64 21:07:008.6[facility] HermannCHEM PANEL 2018-04-13 21:07:007[facility]annCHEM RGSSN4593-91-53 21:07:72918Cxamthcw HermannCHEM WTQNG0144-98-77 21:07:0013.4[facility] BikqoyzEEQXRIJORD2566-18-16 21:07:002.1M[facility] CampusOlxrjuyVWPIZVMRCL8365-44-25 21:07:00 Test Item Value Reference Range Interpretation Comments Angle Rapid (test code = Angle 75 degrees 64-80 Rapid) [facility]anoVnlswilAHLLOAUNQX7638-92-97 21:07:008.6[facility] 2018-04-13 21:07:00 Test Item Value Reference Range Interpretation Comments Max Amplitude Rapid (test code = Max 63 mm 52-71 Amplitude Rapid) [facility]anoGbgyrkaRZZKVTCDSB7423-33-66 21:07:00 Test Item Value Reference Range Interpretation Comments R-time Rapid (test code = R-time 0.7 min 0.4-0.7 Rapid) [facility]anoYwnukzsCJCPIJTECZ0800-91-32 21:07:00 Test Item Value Reference Range Interpretation Comments K-time Rapid (test code = K-time 1.2 min 0.6-2.3 Rapid) [facility]anoNjiceucLXAIHNCOIJ1044-28-63 21:07:00 Test Item Value Reference Range Interpretation Comments ACT (TEG) Rapid (test code = ACT (TEG) 113 s 86-118 Rapid) [facility]anoGsnkbbmVAJQHVPWFL1364-81-94 21:07:00 Test Item Value Reference Range Interpretation Comments Split [place] Rapid (test code = Split 0.6 min Point Rapid) [facility] CenterVzsiinfGHJJIUNEKF9491-85-80 21:07:00 Test Item Value Reference Range Interpretation Comments PTT (test code = PTT) 30.6 s 22.9-35.8 [facility] CenterJdtkjppXZZLZXOYVP0126-48-91 21:07:00 Test Item Value Reference Range Interpretation Comments INR (test code = INR) 1.03 1 0.85-1.17 [facility] CenterYecpckePDQGTWPMGT6947-94-53 21:07:00 Test Item Value Reference Range Interpretation Comments PT (test code = PT) 13.3 s 12.0-14.7 [facility] NpqhruqESFWWGOEIJ5629-86-92 21:07:0011.1[facility]annHEMATOLOGY 2018-04-13 21:07:0033.7[facility] JgnlixvGTXZYNXQEP8698-59-96 21:07:004.04[facility] KpncrooFFNKPUSLQU7752-77-12 21:07:005.8[facility] QzngyqmVRGREBXZDD8024-20-80 21:07:0017.2[facility] TecoquoSUSMURLQUE6850-41-98 21:07:47512Zggjyowz [facility] FDTSDDEGSY5759-52-91 21:07:0032.9[facility] EwgvqtrGJTSBXHPPC6434-76-07 21:07:00 83.5[facility] AeahxpmKJFQGHVNWD5904-93-47 21:07:00 Test Item Value Reference Range Interpretation Comments MCH (test code = MCH) 27.5 pg 27.0-31.0 [facility] XomquxfGXKJZTSHAE6858-69-51 21:07:008.4[facility]annHEMATOLOGY 2018-04-13 21:07:0056.3[facility] NqqipsyICHUOISHBO7628-42-91 21:07:0029.4[facility] TvfgpkmBBCOAQYOQW6204-30-59 21:07:009.6[facility] QdnupspQUXAUCHFNR8008-01-58 21:07:004.0[facility] HkekcmqUQLRBOESZG9188-78-43 21:07:000.7[facility] KEFFGFJNYB3458-04-16 21:07:003.3[facility] TojwdblQRYDVVHGOW7146-36-51 21:07:001.7 [facility] CenterTbhudjsXWKVDCZJKM9912-27-58 21:07:000.6[facility] 2018-04-13 21:07:000.2[facility] HermannCHEM EHDEZ4259-14-87 21:07:15249Wqzzonez HermannCHEM BJVMS3185-35-51 21:07:49858Wperkstb HermannCHEM MEXWQ7500-22-81 21:07:0023[facility]annCHEM CNWLK9319-41-61 21:07:000.58[facility] HermannCHEM HPJOM4735-90-59 21:07:94466Adlbsjbc HermannCHEM FULQX1448-27-12 21:07:004.4 [facility] HermannCHEM YKFUR0688-94-93 21:07:008.6[facility]annCHEM PANEL 2018-04-13 21:07:007[facility] HermannCHEM ASAFM7651-90-93 21:07:49265Bvsrdwpu HermannCHEM VCKZV4389-51-44 21:07:0013.4[facility] McndwbtAPEBANNIOM0908-34-17 21:07:002.1[facility]hamXemzsexLANOQSWCBR7612-65-10 21:07:00 Test Item Value Reference Range Interpretation Comments Angle Rapid (test code = Angle 75 degrees 64-80 Rapid) [facility]anoWkuvtxfLHKZDJBBFA2870-94-11 21:07:008.6[facility] AliceHEMBAYSTATE [facility] 2018-04-13 21:07:00 Test Item Value Reference Range Interpretation Comments Max Amplitude Rapid (test code = Max 63 mm 52-71 Amplitude Rapid) [facility]anoLqozjigDVMCDNTIIH1474-38-33 21:07:00 Test Item Value Reference Range Interpretation Comments R-time Rapid (test code = R-time 0.7 min 0.4-0.7 Rapid) [facility]anoYkvwbnvOZMDIOSWWX4078-38-64 21:07:00 Test Item Value Reference Range Interpretation Comments K-time Rapid (test code = K-time 1.2 min 0.6-2.3 Rapid) [facility]anoDpfigwxSCTMKNIEGD6883-55-59 21:07:00 Test Item Value Reference Range Interpretation Comments ACT (TEG) Rapid (test code = ACT (TEG) 113 s 86-118 Rapid) [facility]anoJywtkitZHIGVPOPXM6089-28-32 21:07:00 Test Item Value Reference Range Interpretation Comments Split [place] Rapid (test code = Split 0.6 min Point Rapid) [facility] CenterLxwfargOECGEBCBBC1235-15-14 21:07:00 Test Item Value Reference Range Interpretation Comments PTT (test code = PTT) 30.6 s 22.9-35.8 [facility] CenterAkkmwzkSSKZVMZGGT1931-04-98 21:07:00 Test Item Value Reference Range Interpretation Comments INR (test code = INR) 1.03 1 0.85-1.17 [facility] ZbmhwmiLQLQQSPZKV2622-93-70 21:07:00 Test Item Value Reference Range Interpretation Comments PT (test code = PT) 13.3 s 12.0-14.7 [facility] MagbeajFYZDQAPNBT1991-63-06 21:07:0011.1[facility]annHEMATOLOGY 2018-04-13 21:07:0033.7[facility] LyezpgpNNHZYPLZES1445-53-89 21:07:004.04[facility] YlnabvmVLZLKRDKXR3840-35-58 21:07:005.8[facility] QlwlvqpWHNKQAAJZQ4796-32-98 21:07:0017.2[facility] BownelcYHAWJBUQFX5936-72-36 21:07:02321[facility] [place] TUVWBFISWB1592-26-73 21:07:0032.9[facility] ZgnayucRRROCHAXJG0204-26-37 21:07:00 83.5[facility] PvsnkysYQTQBJWCQU2018-08-08 21:07:00 Test Item Value Reference Range Interpretation Comments MCH (test code = MCH) 27.5 pg 27.0-31.0 [facility] SpzypdjZQRZKCJZLP7214-26-38 21:07:008.4[facility]annHEMATOLOGY 2018-04-13 21:07:0056.3[facility] ResahlgCEIINIMZHD0927-91-35 21:07:0029.4[facility] LndlwbeGDDZJYKZOY0109-50-08 21:07:009.6[facility] IywfxbxPBYFGVXNXH8857-44-54 21:07:004.0[facility] LhcfkucPACYZEWGRE2339-02-71 21:07:000.7[facility] SPLAEIMXKD3640-55-68 21:07:003.3[facility] RdrvaszRSOFBZQMWT1735-33-47 21:07:001.7 [facility] PhncvjkGPBUCDYGLI4932-47-11 21:07:000.6[facility]annHEMATOLOGY 2018-04-13 21:07:000.2[facility] JuyahoqSPVFBDNNAB1559-29-74 21:07:001.7[facility] QjivddyIFVAGBPUOR3431-15-07 21:07:000.emorial ZjmfyabRYTZSTCTLP9211-73-57 21:07:000.2[facility] HermannCHEM BKIDI0670-35-91 21:07:30820Sxbmtvmy HermannCHEM NQVCK2850-69-47 21:07:41689Uymeyvzf HermannCHEM ZHTHN6791-19-09 21:07:0023 [facility]annCHEM HGKCT6999-87-22 21:07:000.58[facility]annCHEM PANEL 2018-04-13 21:07:58105Xmkvueam HermannCHEM UOQWE0140-99-87 21:07:004.4[facility] HermannCHEM GXKSA9761-90-31 21:07:008.6[facility] HermannCHEM CVSIZ8216-85-38 21:07:007[facility] HermannCHEM TNSZT6951-11-96 21:07:98516Slvqnnax HermannCHEM JQIRV3957-41-81 21:07:0013.4[facility] EfqjamyZSXFSPTCPH6099-58-90 21:07:002.1 [facility]JgtsbywMVIBEVSWJH8982-36-29 21:07:00 Test Item Value Reference Range Interpretation Comments Angle Rapid (test code = Angle 75 degrees 64-80 Rapid) [facility] HospitalJcwmqlvXDGAFZSLDP1419-95-48 21:07:008.6[facility]annHEMATOLOGY 2018-04-13 21:07:00 Test Item Value Reference Range Interpretation Comments Max Amplitude Rapid (test code = Max 63 mm 52-71 Amplitude Rapid) [facility]qnkodzNWXKPXMIWQ4030-47-49 21:07:00 Test Item Value Reference Range Interpretation Comments R-time Rapid (test code = R-time 0.7 min 0.4-0.7 Rapid) [facility] HospitalIucetceEMFOPFKAIP3590-62-97 21:07:00 Test Item Value Reference Range Interpretation Comments K-time Rapid (test code = K-time 1.2 min 0.6-2.3 Rapid) [facility] HospitalEivdrvcEEWGSWAHIL8711-13-41 21:07:00 Test Item Value Reference Range Interpretation Comments ACT (TEG) Rapid (test code = ACT (TEG) 113 s 86-118 Rapid) [facility] HospitalHjhmwyrKULVACJDXK5360-26-65 21:07:00 Test Item Value Reference Range Interpretation Comments Split [place] Rapid (test code = Split 0.6 min Point Rapid) [facility] HospitalAqzzuakJHZDIMDEZE8334-28-02 21:07:00 Test Item Value Reference Range Interpretation Comments PTT (test code = PTT) 30.6 s 22.9-35.8 [facility] HospitalOssarsjIWEYTWQKKT1390-50-74 21:07:00 Test Item Value Reference Range Interpretation Comments INR (test code = INR) 1.03 1 0.85-1.17 [facility] HospitalDmxvrscDUXBHJFYYB5033-19-16 21:07:00 Test Item Value Reference Range Interpretation Comments PT (test code = PT) 13.3 s 12.0-14.7 [facility] CenterNtozwqeTJRTNWAOQN4992-99-86 21:07:0011.1[facility]annHEMATOLOGY 2018-04-13 21:07:0033.7[facility] BlktdijJILIJNXMEO2240-37-15 21:07:004.04[facility] MzpslysOBOTWAWUKV6973-91-00 21:07:005.8[facility] PelpruaSRTBDXDIHR5688-25-25 21:07:0017.2[facility] PazwufrNUICRHXOXF6681-20-52 21:07:48899Iqcjfmkr [place] NZAPRBKXEB9742-28-49 21:07:0032.9[facility] ZgjwjwiULDQJFAYQZ7043-98-88 21:07:00 83.5[facility] DzprmebEENVUWYEFJ7450-27-79 21:07:00 Test Item Value Reference Range Interpretation Comments MCH (test code = MCH) 27.5 pg 27.0-31.0 [facility] CenterNbqhllkLTRMXUZFOX5886-10-55 21:07:008.4[facility]annHEMATOLOGY 2018-04-13 21:07:0056.3[facility] FxlsgktBCCJDYENCS9721-26-45 21:07:0029.4[facility] OogoqxeKTQELJZGCC0119-96-81 21:07:009.6[facility] RauwpplZVFNTBDJLP8227-94-64 21:07:004.0[facility] UzxtoegHZUIFVINFP7677-23-08 21:07:000.7[facility] OFIZETJOKH6487-62-08 21:07:003.3[facility]annBLOOD BANK ZGHNPXV0317-00-60 11:47:00Negative (01/31/18 6:47 AM)[facility] CQNFMPX5154-31-48 11:47:00Negative (01/31/18 6:47 AM)[facility]BL[facility] BANK QYQCTMI9744-70-01 11:47:00Negative (01/31/18 6:47 AM)[facility]BL[facility] BKEVLIU0191-36-26 11:47:00Negative (01/31/18 6:47 AM)[facility]annCHEM XDFKQ8731-76-57 11:41:00 105[facility]annCHEM GPMUI0409-78-32 11:41:008.3[facility] HermannCHEM PANEL 2018-01-31 11:41:19869Lefcyupg HermannCHEM GHPXF4492-90-19 11:41:0027[facility]annCHEM VZIUK7907-78-89 11:41:0095[facility]annCHEM MZJWP6053-11-06 11:41:004.2[facility]annCHEM VDLDD0079-77-40 11:41:000.65[facility]annCHEM DIIZP5138-73-07 11:41:0011[facility]annCHEM CULHV4208-83-73 11:41:69209 [facility]annCHEM CSIDE0582-31-61 11:41:008.2[facility]annCHEM PANEL 2018-01-31 11:41:000.8[facility] HermannDRUG ZFHLJI9004-40-65 11:41:00See Note (01/31/18 6:41 AM)[facility]annDRUG UDPZQW5928-17-77 11:41:00Negative *NA*(01/31/18 6:41 AM)[facility]annDR[facility] IZBWNS2625-42-50 11:41:00Negative *NA*(01/31/18 6:41 AM)[facility]annDR[facility] CTCWCN2888-18-18 11:41:00Negative *NA*(01/31/18 6:41 AM)[facility]annDRUG LEHOJJ4007-35-79 11:41:00Negative *NA*(01/31/18 6:41 AM)[facility]annDR[facility] RWGLIS1051-17-89 11:41:00Negative *NA*(01/31/18 6:41 AM)[facility]annDR[facility] KPLTXO4782-57-09 11:41:00Negative *NA*(01/31/18 6:41 AM)[facility]annDR[facility] CHRPVR0518-06-96 11:41:00Negative *NA*(01/31/18 6:41 AM)[facility] GcykrjsARYPEFOTVMFED2984-87-91 11:41:00Negative *NA*(01/31/18 6:41 AM)[facility] NlytipxKGEPOLWKWO9663-08-01 11:41:000.7[facility] LqcpexqEIXWVXHKPB9145-74-42 11:41:002.9[facility] ArknsonESOVMKEDLB8460-00-69 11:41:000.2[facility] HnuurfeMQHWOIAXTQ5945-17-59 11:41:0055.3[facility] DAZAKNKFUZ5525-93-81 11:41:0033.5[facility] WxjlxzfVQWFKLTAJQ8226-31-36 11:41:00 8.5[facility] AdbslheFDSLUIKNFY9562-74-08 11:41:000.4[facility] HermannHEMATOLOGY 2018-01-31 11:41:002.3[facility] MxlqwdzYINHRAHEJK0937-28-59 11:41:004.9[facility] TichrusDOCTNUXALJ1890-50-98 11:41:008.8[facility] JxwrdnjXNVWPTCBJW6591-00-06 11:41:00 Test Item Value Reference Range Interpretation Comments MCH (test code = MCH) 28.1 pg 27.0-31.0 [facility] KmyjloxXMVVWOXOIV9049-46-49 11:41:0032.9[facility]annHEMATOLOGY 2018-01-31 11:41:0015.9[facility] LbmycmgUHYHUQNLEX3645-47-61 11:41:004.10[facility] NdjcxmzTZQGHRIMLD8487-69-47 11:41:0034.9[facility] LayettfNHFTPHKIVP9051-56-49 11:41:0085.2[facility] ScsxliaVLAFDCKCQP1774-27-37 11:41:0011.5[facility] GEIJWDWPOD5900-25-84 11:41:90186Yxpqqidq EoqcgkdZQSOYCIRYA6598-85-62 11:41:007.7 [facility] GyjxyfmFSJDUTFMVL5105-75-11 11:41:00 Test Item Value Reference Range Interpretation Comments ACT (TEG) Rapid (test code = ACT (TEG) 105 s 86-118 Rapid) [facility] VrbrjxhDMRVNRTMUJ5841-50-96 11:41:00 Test Item Value Reference Range Interpretation Comments Angle Rapid (test code = Angle 75 degrees 64-80 Rapid) [facility] AmvveiuUWXRXNYQKI3178-98-04 11:41:00 Test Item Value Reference Range Interpretation Comments K-time Rapid (test code = K-time 1.2 min 0.6-2.3 Rapid) [facility] YycsknlUZKKGDAKZH0350-05-21 11:41:00 Test Item Value Reference Range Interpretation Comments R-time Rapid (test code = R-time 0.6 min 0.4-0.7 Rapid) [facility] QhwmsltXVJWFZVMLY6209-63-78 11:41:00 Test Item Value Reference Range Interpretation Comments Split Point Rapid (test code = Split 0.4 min Point Rapid) [facility] WzwrcwhFJFJWRIRGK1610-45-56 11:41:001.3[facility] HermannHEMATOLOGY 2018-01-31 11:41:008.2[facility] RfybjnjBPUEIEYGZM3839-06-79 11:41:00 Test Item Value Reference Range Interpretation Comments Max Amplitude Rapid (test code = Max 62 mm 52-71 Amplitude Rapid) [facility] VfnmqhaJHTLCHSTLZ6327-72-82 11:41:00Negative *NA*(01/31/18 6:41 AM) [facility] BTWME8422-95-54 11:41:000.2[facility]annUR[facility] AND WRCRG5350-29-13 11:41:00Trace *ABN*(01/31/18 6:41 AM)[facility] ZXHED9081-37-48 11:41:00Negative *NA*(01/31/18 6:41 AM)[facility] NALVG1941-46-24 11:41:00Negative (01/31/18 6:41 AM)[facility] YORBF0869-44-78 11:41:00 Test Item Value Reference Range Interpretation Comments UA pH (test code = UA pH) 7.0 1 5.0-8.0 [facility] UPDKE9210-12-00 11:41:00Negative *NA*(01/31/18 6:41 AM)[facility] ZETPO7877-08-84 11:41:00Negative (01/31/18 6:41 AM) [facility] JHXEE0339-26-56 11:41:00Trace *ABN*(01/31/18 6:41 AM) [facility] YDBCQ4521-71-07 11:41:00Negative (01/31/18 6:41 AM) [facility] JNPWA8838-68-05 11:41:00 Test Item Value Reference Range Interpretation Comments UA Spec Grav (test code = UA Spec 1.010 1 Grav) [facility] QKDSG6854-79-90 11:41:00Yellow *NA*(01/31/18 6:41 AM) [facility] NGQMP0846-04-42 11:41:00Clear (01/31/18 6:41 AM) [facility]annCHEM OGQVE7684-88-40 11:41:44462Zdysjkwm HermannCHEM PANEL 2018-01-31 11:41:008.3[facility] HermannCHEM RLRXG5772-24-18 11:41:02273Cqgslcjm HermannCHEM JJUAV6451-50-56 11:41:0027[facility] HermannCHEM LBRSZ7167-29-14 11:41:0095[facility] HermannCHEM LFORC5486-13-25 11:41:004.2[facility] HermannCHEM AAVJP1842-90-39 11:41:000.65[facility] HermannCHEM PDCBR3609-27-90 11:41:0011 [facility]annCHEM XOYEN7794-62-16 11:41:29405Gmyvysfn HermannCHEM PANEL 2018-01-31 11:41:008.2[facility] HermannCHEM CDQSL8801-29-10 11:41:000.8[facility] HermannDRUG VEAGPW8113-71-34 11:41:00See Note (01/31/18 6:41 AM)[facility] UDLNHL9478-60-02 11:41:00Negative *NA*(01/31/18 6:41 AM)[facility] MRKTEI2691-04-42 11:41:00Negative *NA*(01/31/18 6:41 AM)[facility] DR[facility] VWRSWQ0866-16-62 11:41:00Negative *NA*(01/31/18 6:41 AM)[facility] KTIUBL8124-22-17 11:41:00Negative *NA*(01/31/18 6:41 AM)[facility] DRUG ZEXYLC7987-05-84 11:41:00Negative *NA*(01/31/18 6:41 AM)[facility] DR[facility] ZIWLKR6645-56-43 11:41:00Negative *NA*(01/31/18 6:41 AM)[facility] ERJSMO2561-21-53 11:41:00Negative *NA*(01/31/18 6:41 AM)[facility] WZCNOQXRFTCQM1461-38-01 11:41:00Negative *NA*(01/31/18 6:41 AM)[facility] NPIVISPCCH2603-82-27 11:41:000.7[facility] NaowhhdIBOWSFSWYR8402-52-36 11:41:002.9 [facility] ZtpkmqaFSTSKTRTFM2123-48-96 11:41:000.2[facility] 2018-[facility] 11:41:0055.3[facility] EbzfireAAFNIZICVW2932-40-67 11:41:0033.5[facility] UwvqcqsMVIQHAMJTR5822-03-59 11:41:008.5[facility] IwdjpfuCFYYZXCZNB6451-82-94 11:41:000.4[facility] IfkcurlLYGTNLTQLS1455-16-55 11:41:002.3[facility] ENYNUXFQIN2525-82-07 11:41:004.9[facility] UlzaaahIZCUVGOQTP7007-23-04 11:41:008.8 [facility] GvboytfVFZBUCMMKV9195-02-16 11:41:00 Test Item Value Reference Range Interpretation Comments MCH (test code = MCH) 28.1 pg 27.0-31.0 [facility]um[facility]fojRAODIFGPPZ4058-58-26 11:41:0032.9[facility] 2018-01-31 11:41:0015.9[facility] LueutbzEPWZQIRAPT1871-76-86 11:41:004.10[facility] IxdlwqfXTUJDQALEZ5197-38-73 11:41:0034.9[facility] SgrgqjqZTFKNJDOHV4895-44-03 11:41:0085.2[facility] HbrlgvvCDZQAGOGYH7213-90-37 11:41:0011.5[facility] NLGKIPRHVT3011-57-46 11:41:16699Gvryqzvq QlbmosqODVCHRAAZY6481-44-02 11:41:007.7 [facility] CenterZumjjjpJGLSIPXHIC6470-89-10 11:41:00 Test Item Value Reference Range Interpretation Comments ACT (TEG) Rapid (test code = ACT (TEG) 105 s 86-118 Rapid) [facility]ger[facility]wKKUMXWXVXH6029-22-82 11:41:00 Test Item Value Reference Range Interpretation Comments Angle Rapid (test code = Angle 75 degrees 64-80 Rapid) [facility] CenterRupbyzhHPTYZGPUEH4878-83-72 11:41:00 Test Item Value Reference Range Interpretation Comments K-time Rapid (test code = K-time 1.2 min 0.6-2.3 Rapid) [facility] CenterGkayuooPMVVPMXOSK3864-93-09 11:41:00 Test Item Value Reference Range Interpretation Comments R-time Rapid (test code = R-time 0.6 min 0.4-0.7 Rapid) [facility] CenterFutpqzfLMQZZSJKWZ9445-81-60 11:41:00 Test Item Value Reference Range Interpretation Comments Split Point Rapid (test code = Split 0.4 min Point Rapid) [facility] CenterFruydqxJKKQYSEOPH7969-56-48 11:41:001.3[facility] 2018-01-31 11:41:008.2[facility] VvcearlNSLJRRTQKX3598-29-92 11:41:00 Test Item Value Reference Range Interpretation Comments Max Amplitude Rapid (test code = Max 62 mm 52-71 Amplitude Rapid) [facility] WmnezkvOTTUMRQXDO8423-22-21 11:41:00Negative *NA*(01/31/18 6:41 AM) [facility] HPHYA4384-25-86 11:41:000.2[facility] WALZB0915-87-40 11:41:00Trace *ABN*(01/31/18 6:41 AM)[facility] CCYQD1909-93-50 11:41:00Negative *NA*(01/31/18 6:41 AM)[facility] TKPEF5962-44-70 11:41:00Negative (01/31/18 6:41 AM)[facility] DEYSX1077-95-04 11:41:00 Test Item Value Reference Range Interpretation Comments UA pH (test code = UA pH) 7.0 1 5.0-8.0 [facility] FYUOS0009-90-64 11:41:00Negative *NA*(01/31/18 6:41 AM)[facility] ZYURI7618-70-34 11:41:00Negative (01/31/18 6:41 AM) [facility] WJVJT4356-54-37 11:41:00Trace *ABN*(01/31/18 6:41 AM) [facility] HTDAT1867-96-06 11:41:00Negative (01/31/18 6:41 AM) [facility] HMHXH6206-02-43 11:41:00 Test Item Value Reference Range Interpretation Comments UA Spec Grav (test code = UA Spec 1.010 1 Grav) [facility] LZVIE4124-75-93 11:41:00Yellow *NA*(01/31/18 6:41 AM) [facility] WFVYM6999-40-81 11:41:00Clear (01/31/18 6:41 AM) [facility] IzikxcjPRDOJKROMV1797-35-47 11:41:00 Test Item Value Reference Range Interpretation Comments MCH (test code = MCH) 28.1 pg 27.0-31.0 [facility] LcgqemqFLQQLFOGQT0633-81-36 11:41:0032.9[facility]ann[facility] 2018-01-31 11:41:0015.9[facility] UgivbfjZSDOXQVRAB0816-66-51 11:41:004.10[facility] EnzqtmxTRQCOBHDKT9910-45-43 11:41:0034.9[facility] QgkwaxmETUUSRDTXY9686-56-79 11:41:0085.2[facility] YwsraajUTNVCFVWVK1993-50-15 11:41:0011.5[facility] QXKGNESYSE3363-23-09 11:41:98979Uyjqbpco JumpbpzRMVQIHNMVC4094-14-46 11:41:007.7 [facility] LfmsamdPDWOOQTOTK7539-16-54 11:41:00 Test Item Value Reference Range Interpretation Comments ACT (TEG) Rapid (test code = ACT (TEG) 105 s 86-118 Rapid) [facility] CenterHchipicYCNNRTVWQO7454-58-72 11:41:00 Test Item Value Reference Range Interpretation Comments Angle Rapid (test code = Angle 75 degrees 64-80 Rapid) [facility] CenterEddvtuhJDSINMNKUW8912-53-50 11:41:00 Test Item Value Reference Range Interpretation Comments K-time Rapid (test code = K-time 1.2 min 0.6-2.3 Rapid) [facility] SfadurnXTGPMISNJK4389-28-36 11:41:00 Test Item Value Reference Range Interpretation Comments R-time Rapid (test code = R-time 0.6 min 0.4-0.7 Rapid) [facility] CenterZhtntndVPELNRJUYN6037-49-93 11:41:00 Test Item Value Reference Range Interpretation Comments Split Point Rapid (test code = Split 0.4 min Point Rapid) [facility] CenterXyeuwzaQNBQZZAASK7869-58-20 11:41:001.3[facility]annHEMATOLOGY 2018-01-31 11:41:008.2[facility] KkwkzsjQLDKTXMAGE7190-59-74 11:41:00 Test Item Value Reference Range Interpretation Comments Max Amplitude Rapid (test code = Max 62 mm 52-71 Amplitude Rapid) [facility] WraqnbwEBSSPPPBCM1723-99-69 11:41:00Negative *NA*(01/31/18 6:41 AM) [facility] XPLAG9966-64-38 11:41:000.2[facility] PWWMT2776-89-82 11:41:00Trace *ABN*(01/31/18 6:41 AM)[facility] OVKCQ1808-75-92 11:41:00Negative *NA*(01/31/18 6:41 AM)[facility] VZIHK2570-74-06 11:41:00Negative (01/31/18 6:41 AM)[facility] GQYEY0942-34-06 11:41:00 Test Item Value Reference Range Interpretation Comments UA pH (test code = UA pH) 7.0 1 5.0-8.0 [facility] JNBZE5035-67-05 11:41:00Negative *NA*(01/31/18 6:41 AM)[facility] PVZWL8593-89-64 11:41:00Negative (01/31/18 6:41 AM) [facility] BJJAU8275-06-52 11:41:00Trace *ABN*(01/31/18 6:41 AM) [facility] MEZYI0343-95-53 11:41:00Negative (01/31/18 6:41 AM) [facility] EFNJM2559-32-83 11:41:00 Test Item Value Reference Range Interpretation Comments UA Spec Grav (test code = UA Spec 1.010 1 Grav) [facility] VARMN9864-36-85 11:41:00Yellow *NA*(01/31/18 6:41 AM) [facility] JJYUM6436-02-41 11:41:00Clear (01/31/18 6:41 AM) [facility]annCHEM UXSPD9076-68-17 11:41:65180Lcproqok HermannCHEM PANEL 2018-01-31 11:41:008.3[facility]annCHEM IRQQQ6255-37-30 11:41:03244Hemlvguo HermannCHEM HUDRT4593-17-56 11:41:0027[facility]annCHE[facility] VPTHX0797-96-93 11:41:0095[facility]annCHE[facility] HBNUR1105-63-10 11:41:004.2[facility]annCHE[facility] LZHBM5425-12-48 11:41:000.65[facility]annCHE[facility] RUSJZ5168-28-65 11:41:0011 [facility]annCHE[facility] JWJUD6293-11-45 11:41:17967Idnvjios HermannCHEM PANEL 2018-01-31 11:41:008.2[facility]annCHEM ZFACX8163-48-60 11:41:000.8[facility]annDR[facility] QOMSFN9151-67-18 11:41:00See Note (01/31/18 6:41 AM)[facility] UUPPEF8504-29-06 11:41:00Negative *NA*(01/31/18 6:41 AM)[facility] UVQJTG5074-51-63 11:41:00Negative *NA*(01/31/18 6:41 AM)[facility] ZQEPJA5206-99-01 11:41:00Negative *NA*(01/31/18 6:41 AM)[facility] WDSESN8063-97-35 11:41:00Negative *NA*(01/31/18 6:41 AM)[facility] YSBZGY2247-47-05 11:41:00Negative *NA*(01/31/18 6:41 AM)[facility] YSRKEH7692-46-40 11:41:00Negative *NA*(01/31/18 6:41 AM)[facility] FSHBTE7361-47-66 11:41:00Negative *NA*(01/31/18 6:41 AM)[facility] KIVEKUNCCGLYA7823-20-52 11:41:00Negative *NA*(01/31/18 6:41 AM)[facility] WGEXYTBHXA6202-81-88 11:41:000.7[facility] WrksuzbZWEYLYVHDC6460-83-86 11:41:002.9 [facility] IlroscpYJWCYQNIIS0215-09-99 11:41:000.2[facility]annHEMATOLOGY 2018-01-31 11:41:0055.3[facility] SvlmbvlCFFJOSJPLT6304-27-38 11:41:0033.5[facility] IewubneHIXIZEEGNG3421-41-00 11:41:008.5[facility] ObmldwvLFUPPQWZBJ9783-61-82 11:41:000.4[facility] BemtmrtDPNXKZYRTR2475-59-15 11:41:002.3[facility] HICEWYACIJ4606-28-91 11:41:004.9[facility] JlraflpHCPQKIUNFK6559-88-77 11:41:008.8 [facility] BinlyceRCANHNYYEA2460-71-12 11:41:00 Test Item Value Reference Range Interpretation Comments MCH (test code = MCH) 28.1 pg 27.0-31.0 [facility] CenterHwsqhixNOWBNJNJJD6789-75-36 11:41:0032.9[facility]annHEMATOLOGY 2018-01-31 11:41:0015.9[facility] UhfhrjtCVRBVRJEWF2014-57-71 11:41:004.10[facility] TuzbacnVOTQMQKVSG3415-83-28 11:41:0034.9[facility] EathbjaTSAFHESEUO2555-89-77 11:41:0085.2[facility] PkvafqwJQJSHQVMBO5825-87-23 11:41:0011.5[facility] QCWMQNQFQO7118-45-34 11:41:05012Xdnysydz ZoalfgkYBPCAMMHRW1724-70-41 11:41:007.7 [facility] OfwykzeKRRSFRGNWO4933-72-64 11:41:00 Test Item Value Reference Range Interpretation Comments ACT (TEG) Rapid (test code = ACT (TEG) 105 s 86-118 Rapid) [facility] CenterCbszaleIUMRZYWAIM3693-88-55 11:41:00 Test Item Value Reference Range Interpretation Comments Angle Rapid (test code = Angle 75 degrees 64-80 Rapid) [facility] CenterAjaidzeNDRSXFZSHN6370-54-93 11:41:00 Test Item Value Reference Range Interpretation Comments K-time Rapid (test code = K-time 1.2 min 0.6-2.3 Rapid) [facility] CenterEwbkfikWQRSJLFTSI3791-42-33 11:41:00 Test Item Value Reference Range Interpretation Comments R-time Rapid (test code = R-time 0.6 min 0.4-0.7 Rapid) [facility] CenterLrotsmeJIDACIODJC9982-54-60 11:41:00 Test Item Value Reference Range Interpretation Comments Split Point Rapid (test code = Split 0.4 min Point Rapid) [facility] CenterKdbgrjzCRQAYDDBWE9240-16-60 11:41:001.3[facility]annHEMATOLOGY 2018-01-31 11:41:008.2[facility] YtolxkqDUKGBYZGYR6430-71-01 11:41:00 Test Item Value Reference Range Interpretation Comments Max Amplitude Rapid (test code = Max 62 mm 52-71 Amplitude Rapid) [facility] OstkeflLHNFHZEPIO2860-49-30 11:41:00Negative *NA*(01/31/18 6:41 AM) [facility] PGRYX8064-12-45 11:41:000.2[facility] AKZWR4247-35-53 11:41:00Trace *ABN*(01/31/18 6:41 AM)[facility] CTKEA0895-27-31 11:41:00Negative *NA*(01/31/18 6:41 AM)[facility] SFALK8911-99-62 11:41:00Negative (01/31/18 6:41 AM)[facility] FTBDV2343-87-55 11:41:00 Test Item Value Reference Range Interpretation Comments UA pH (test code = UA pH) 7.0 1 5.0-8.0 [facility] BUMAI9477-47-77 11:41:00Negative *NA*(01/31/18 6:41 AM)[facility] IWHAX3217-40-73 11:41:00Negative (01/31/18 6:41 AM) [facility] WCHOM7278-78-61 11:41:00Trace *ABN*(01/31/18 6:41 AM) [facility] RAAAM4615-78-77 11:41:00Negative (01/31/18 6:41 AM) [facility] YUBSQ1395-66-72 11:41:00 Test Item Value Reference Range Interpretation Comments UA Spec Grav (test code = UA Spec 1.010 1 Grav) [facility] NOUCL5093-46-05 11:41:00Yellow *NA*(01/31/18 6:41 AM) [facility] PZKRP2269-94-23 11:41:00Clear (01/31/18 6:41 AM) [facility]annCHEM BQZQY5180-44-85 11:41:30182Fdfinfls HermannCHEM PANEL 2018-01-31 11:41:008.3[facility] HermannCHEM CLGKA6705-94-98 11:41:48658Gaoymfjf HermannCHEM RRHQW2313-99-79 11:41:0027[facility]annCHEM CEIYZ0927-23-78 11:41:0095[facility]annCHEM LQOED6696-79-62 11:41:004.2[facility]annCHEM ZLPGW9619-58-69 11:41:000.65[facility]annCHEM WERBV3841-42-45 11:41:0011 [facility]annCHE[facility] AAMTZ3767-45-69 11:41:72113Hyrwpynz HermannCHEM PANEL 2018-01-31 11:41:008.2[facility] HermannCHEM EUPOS7320-35-26 11:41:000.8[facility]annDR[facility] RUFBVB6172-74-88 11:41:00See Note (01/31/18 6:41 AM)[facility] VGMGJR5097-31-94 11:41:00Negative *NA*(01/31/18 6:41 AM)[facility] VBSIZW7057-86-54 11:41:00Negative *NA*(01/31/18 6:41 AM)[facility] VRDQSI6695-30-75 11:41:00Negative *NA*(01/31/18 6:41 AM)[facility] AQKNQN7831-46-52 11:41:00Negative *NA*(01/31/18 6:41 AM)[facility] ROCPMK6800-13-54 11:41:00Negative *NA*(01/31/18 6:41 AM)[facility] MYBSZN1981-10-64 11:41:00Negative *NA*(01/31/18 6:41 AM)[facility] EGDDBI8161-53-38 11:41:00Negative *NA*(01/31/18 6:41 AM)[facility] VGJCFLZNSIPRW1945-69-83 11:41:00Negative *NA*(01/31/18 6:41 AM)[facility] KSWJIZXUXL7798-34-30 11:41:000.7[facility] KwckjqiAENVOAGOEP4579-38-07 11:41:002.9 [facility] CzpscyjAYIXQEGMNK2726-26-19 11:41:000.2[facility] HermannHEMATOLOGY 2018-01-31 11:41:0055.3[facility] EoynbpbIXSJLKWCLR5485-23-84 11:41:0033.5[facility] KilalmsPXNLGDKYXQ3724-11-19 11:41:008.5[facility] BjpljcrQTDXQUQATM9325-99-68 11:41:000.4[facility] EubcjsjLRTFAGUAIS2932-93-25 11:41:002.3[facility] IENROGHPLR7311-20-69 11:41:004.9[facility] PpbpzzgPEXIQWWOMZ2966-16-86 11:41:008.8 [facility]annCHEM JHBGW5639-96-38 11:15:56378Icipzzyq HermannCHEM PANEL 2017-06-28 11:15:003.5[facility] HermannCHEM PAFWA0650-72-33 11:15:00 Test Item Value Reference Range Interpretation Comments A/G Ratio (test code = A/G Ratio) 1.1 1 0.7-1.6 [facility]annCHE[facility] VLOSN9447-00-76 11:15:00 Test Item Value Reference Range Interpretation Comments B/C Ratio (test code = B/C Ratio) 13 1 6-25 [facility]annCHEM TDJUO4603-82-80 11:15:0013.6[facility] HermannCHEM PANEL 2017-06-28 11:15:007.2[facility] HermannCHEM FUVHM6630-13-97 11:15:0056[facility] HermannCHEM PEYYO6583-47-37 11:15:000.2[facility]annCHEM KPLTT5202-09-38 11:15:003.6[facility]annCHEM SLEEB2307-95-93 11:15:68193Gstjhzoz HermannCHEM IMFBV5004-12-11 11:15:008.9[facility] HermannCHEM ZCLQF9113-14-14 11:15:51918 [facility]annCHEM OVXUL7071-70-43 11:15:24406Zbobajhf HermannCHEM PANEL 2017-06-28 11:15:0024[facility] HermannCHEM TMYVU3555-48-86 11:15:0020[facility]annCHEM ALMQE3439-89-41 11:15:0024[facility]annCHEM LHXEF5867-69-24 11:15:003.7[facility]annCHEM DJYEW0726-18-90 11:15:000.63[facility]annCHEM WRSGO4705-90-60 11:15:008[facility]annCHEM VPBLP2178-09-29 11:15:80838 [facility] RvshdpvPXNIZYRPKTGLG9839-04-43 11:15:00Negative *NA*(06/28/17 6:15 AM) [facility] UuzmsupNXKIXTZIVR1091-77-13 11:15:0015.4[facility] HermannHEMATOLOGY 2017-06-28 11:15:007.7[facility] QigquafWBZXBCOERK9493-70-24 11:15:10874Oqqlkkkh NvpljapCXNZDSWWBZ3325-26-35 11:15:0087.1[facility] YpmkmnhLCHNBJHSEL7855-82-42 11:15:0037.9[facility] JzbbbtbYUIBLWNJPC1589-96-17 11:15:0033.3[facility] KAAOKKUZVY1838-20-30 11:15:00 Test Item Value Reference Range Interpretation Comments MCH (test code = MCH) 29.0 pg 27.0-31.0 [facility] YhsfypaENENJKAQCU8055-68-20 11:15:0012.6[facility]annHEMATOLOGY 2017-06-28 11:15:004.35[facility] UfxvtkcFGCSYLZFSB4915-67-96 11:15:0010.7[facility] XithykjRMBUDBCLQX6373-50-40 11:15:000.8[facility] YlifpljMIONZFZRYK6605-46-32 11:15:000.2[facility] IbvwhaxALJXWREQLP4564-11-43 11:15:0072.1[facility] YLRGSQQSAJ5877-77-21 11:15:007.7[facility] TxtbbmvFUYZNKSMCI9774-23-24 11:15:002.0 [facility] ZpeobawDFZXAKLADV1252-65-51 11:15:000.4[facility] HermannHEMATOLOGY 2017-06-28 11:15:007.2[facility] ZloacjxPVZAXARYLV7846-69-55 11:15:001.7[facility] QcxiwutQWYEJQFTIF7671-58-37 11:15:0018.6[facility] STOOL 2017-06-28 11:15:00Colorless *NA*(06/28/17 6:15 AM)[facility] YAGET9827-88-64 11:15:00 Test Item Value Reference Range Interpretation Comments UA Spec Grav (test code = UA Spec 1.002 1 Grav) [facility] LCJRI3173-66-47 11:15:00Clear (06/28/17 6:15 AM) [facility] YDSKX6788-49-94 11:15:00 Test Item Value Reference Range Interpretation Comments UA pH (test code = UA pH) 6.0 1 5.0-8.0 [facility] MHDBI9368-30-10 11:15:00Moderate *ABN*(06/28/17 6:15 AM)[facility] KLUCP1873-95-19 11:15:00Negative *NA*(06/28/17 6:15 AM)[facility] FUDKO1170-51-30 11:15:00Negative (06/28/17 6:15 AM) [facility] UWDQR0060-66-71 11:15:001[facility] YBGKV2185-72-71 11:15:00Negative (06/28/17 6:15 AM)[facility] ZGQJZ7613-51-76 11:15:002[facility] MRKYT4322-43-52 11:15:001 [facility]annCHEM XCRRU0984-77-33 11:15:77590Mqmdxfkv HermannCHEM PANEL 2017-06-28 11:15:003.5[facility] HermannCHEM HYBZF0293-38-09 11:15:00 Test Item Value Reference Range Interpretation Comments A/G Ratio (test code = A/G Ratio) 1.1 1 0.7-1.6 [facility]annCHEM LEGAA3011-88-87 11:15:00 Test Item Value Reference Range Interpretation Comments B/C Ratio (test code = B/C Ratio) 13 1 6-25 [facility]annCHEM SQGKX0502-27-31 11:15:0013.6[facility] HermannCHEM PANEL 2017-06-28 11:15:007.2[facility]annCHEM MSVVE7087-89-91 11:15:0056[facility]annCHEM CYICU5082-15-33 11:15:000.2[facility]annCHEM FLDLU7103-73-94 11:15:003.6[facility]annCHEM BMEMK3289-61-55 11:15:08166Murmmclp HermannCHEM FQTIL8096-32-36 11:15:008.9[facility]annCHEM HZMHH1637-90-60 11:15:02166 [facility]annCHEM PTSUX1810-44-09 11:15:51971Iemwjsua HermannCHEM PANEL 2017-06-28 11:15:0024[facility]annCHEM GFKCQ3733-76-78 11:15:0020[facility]annCHEM WCGCL0498-71-01 11:15:0024[facility]annCHEM PSRJQ1239-69-99 11:15:003.7[facility] HermannCHEM KCPCB0892-55-14 11:15:000.63[facility]annCHEM GKLIY0513-17-90 11:15:008[facility]annCHEM VSDSX7185-89-13 11:15:19138 [facility] UzmqjcrWUNKIOWUJQZYX7769-03-49 11:15:00Negative *NA*(06/28/17 6:15 AM) [facility] KovmqgtQZJEMQLRSW5441-92-24 11:15:0015.4[facility] HermannHEMATOLOGY 2017-06-28 11:15:007.7[facility] DhniksxDJJQNFPAYH5909-16-29 11:15:67969Grookpxp HsmrwklEFNYADWKGE9998-56-35 11:15:0087.1[facility] DucsfdwPYGQPKFNHG7417-94-00 11:15:0037.9[facility] WyzpztaHCLRXGWWAN7271-28-76 11:15:0033.3[facility] XDPLAVRMMZ5470-70-50 11:15:00 Test Item Value Reference Range Interpretation Comments MCH (test code = MCH) 29.0 pg 27.0-31.0 [facility] CkpfpxbOTSOANOUED8084-64-64 11:15:0012.6[facility]annHEMATOLOGY 2017-06-28 11:15:004.35[facility] ZazbtpxVZPRCCWJLR5924-82-97 11:15:0010.7[facility] HogcwagZWUKFJJIBF8382-70-89 11:15:000.8[facility] IncuryiPUZOYWGQIB0993-85-90 11:15:000.2[facility] SnnemlmIPESNABKUF7571-88-73 11:15:0072.1[facility] LLXTXQLDPT8788-10-58 11:15:007.7[facility] GqxrycsOYVCHFOSZI4890-75-93 11:15:002.0 [facility] YwljsvoFUUJKTMJFC9896-14-31 11:15:000.4[facility]annHEMATOLOGY 2017-06-28 11:15:007.2[facility] XzibejoJIVTRHNFGJ6354-26-10 11:15:001.7[facility] XwuyllhVVDVPIZEMX8296-10-68 11:15:0018.6[facility] STOOL 2017-06-28 11:15:00Colorless *NA*(06/28/17 6:15 AM)[facility] JDMJO2789-51-56 11:15:00 Test Item Value Reference Range Interpretation Comments UA Spec Grav (test code = UA Spec 1.002 1 Grav) [facility] JNEHZ0199-15-48 11:15:00Clear (06/28/17 6:15 AM) [facility] MSNUK2950-50-62 11:15:00 Test Item Value Reference Range Interpretation Comments UA pH (test code = UA pH) 6.0 1 5.0-8.0 [facility] YUYWO0729-89-73 11:15:00Moderate *ABN*(06/28/17 6:15 AM)[facility] LXXXC5147-26-01 11:15:00Negative *NA*(06/28/17 6:15 AM)[facility] HALDZ3389-32-98 11:15:00Negative (06/28/17 6:15 AM) [facility] HDJWW9372-99-08 11:15:001[facility] FWPYG1396-90-69 11:15:00Negative (06/28/17 6:15 AM)[facility] HMIMF5904-65-86 11:15:002[facility] AKIJQ1130-37-04 11:15:001 [facility]annCHEM CWFVH0908-40-76 11:15:61920Ywljkqzy HermannCHEM PANEL 2017-06-28 11:15:003.5[facility] HermannCHEM JTIOB8718-06-17 11:15:00 Test Item Value Reference Range Interpretation Comments A/G Ratio (test code = A/G Ratio) 1.1 1 0.7-1.6 [facility]annCHE[facility] TJAAX5009-07-30 11:15:00 Test Item Value Reference Range Interpretation Comments B/C Ratio (test code = B/C Ratio) 13 1 -25 [facility]annCHEM XJTHV0891-59-12 11:15:0013.6[facility]annCHEM PANEL 2017-06-28 11:15:007.2[facility]annCHEM ISICX4142-03-74 11:15:0056[facility]annCHEM HYBOF7065-93-33 11:15:000.2[facility]annCHEM EMBAD0399-82-57 11:15:003.6[facility]annCHEM EVGNH7736-00-22 11:15:99957Iivoracc HermannCHEM WASVU3272-88-72 11:15:008.9[facility]annCHEM HGOPV2066-95-68 11:15:95713 [facility]annCHEM LQOWH5238-79-62 11:15:27579Lefykozm HermannCHEM PANEL 2017-06-28 11:15:0024[facility] HermannCHEM YUUYP2824-45-38 11:15:0020[facility]annCHEM SWLFY2403-74-53 11:15:0024[facility] HermannCHEM SFLIG7354-71-38 11:15:003.7[facility] HermannCHEM UKVSJ6843-06-15 11:15:000.63[facility]annCHEM TOVZS9333-55-89 11:15:008[facility]annCHEM AQFPB0931-37-41 11:15:59887 [facility] XajgfivOEBQSSGDBNISS3189-72-51 11:15:00Negative *NA*(06/28/17 6:15 AM) [facility] QbtzcgcQHHWJXIKRT6485-15-76 11:15:0015.4[facility] HermannHEMATOLOGY 2017-06-28 11:15:007.7[facility] VvzrmxlTLDFIHVVRC8931-21-57 11:15:39793Olvktafp TlkfypfTZJDVHVTLQ7143-38-84 11:15:0087.1[facility] ZciawdoPBJHLWYKIG1254-92-24 11:15:0037.9[facility] VmcbbwcWYTTVKWZEE3281-94-03 11:15:0033.3[facility] FOCZINGBUM5580-70-70 11:15:00 Test Item Value Reference Range Interpretation Comments MCH (test code = MCH) 29.0 pg 27.0-31.0 [facility] YnqbnuoYBAUHVGKQK6540-88-35 11:15:0012.6[facility]annHEMATOLOGY 2017-06-28 11:15:004.35[facility] RyritknHIJZMNZLPK8721-69-83 11:15:0010.7[facility] RjrhgzwKJZCBNBGYV7435-78-62 11:15:000.8[facility] SxofegfBXKEVTVKPZ0749-24-10 11:15:000.2[facility] BzkhswvMBWHRNBGWT2613-71-63 11:15:0072.1[facility] DSTZMQMHWU1007-57-59 11:15:007.7[facility] OcifekoPQECORHZZI9084-60-88 11:15:002.0 [facility] YruhoyuEXKCWBTBVE5462-66-87 11:15:000.4[facility] HermannHEMATOLOGY 2017-06-28 11:15:007.2[facility] VxzpywnUVYZOWZTJN6764-35-87 11:15:001.7[facility] UilytmbRHIWEGFWDJ8105-04-89 11:15:0018.6[facility] STOOL 2017-06-28 11:15:00Colorless *NA*(06/28/17 6:15 AM)[facility] IBZHN3490-42-95 11:15:00 Test Item Value Reference Range Interpretation Comments UA Spec Grav (test code = UA Spec 1.002 1 Grav) [facility] HYCNA2312-29-06 11:15:00Clear (06/28/17 6:15 AM) [facility] CPNKV6823-29-53 11:15:00 Test Item Value Reference Range Interpretation Comments UA pH (test code = UA pH) 6.0 1 5.0-8.0 [facility] XLZGT8189-31-47 11:15:00Moderate *ABN*(06/28/17 6:15 AM)[facility] GQSWH9149-43-82 11:15:00Negative *NA*(06/28/17 6:15 AM)[facility] HJLUW7168-99-77 11:15:00Negative (06/28/17 6:15 AM) [facility] UIKNS5433-50-93 11:15:001[facility] SVKGF1225-20-34 11:15:00Negative (06/28/17 6:15 AM)[facility] JBEPO0778-40-64 11:15:002[facility] AENUK7088-31-17 11:15:001 [facility]annCHEM XBQTP8189-47-60 11:15:42813Uatdwtqb HermannCHEM PANEL 2017-06-28 11:15:003.5[facility] HermannCHEM UPSUS3288-42-75 11:15:00 Test Item Value Reference Range Interpretation Comments A/G Ratio (test code = A/G Ratio) 1.1 1 0.7-1.6 [facility]annCHEM KPIWQ8117-07-87 11:15:00 Test Item Value Reference Range Interpretation Comments B/C Ratio (test code = B/C Ratio) 13 1 6-25 [facility]annCHEM ZFEKJ7342-97-80 11:15:0013.6[facility] HermannCHEM PANEL 2017-06-28 11:15:007.2[facility] HermannCHEM IRPFU0277-77-56 11:15:0056[facility]annCHEM AQCYT0046-37-41 11:15:000.2[facility] HermannCHEM ZJLXQ5943-08-83 11:15:003.6[facility] HermannCHEM GUJVW4978-96-16 11:15:68433Mirieclg HermannCHEM DBWKZ3335-73-56 11:15:008.9[facility]annCHEM SWJPR9891-87-89 11:15:69498 [facility]annCHEM COAQO1423-05-17 11:15:04850Mkikdmky HermannCHEM PANEL 2017-06-28 11:15:0024[facility] HermannCHEM HUEJD3577-39-57 11:15:0020[facility]annCHEM CUPZS0613-35-50 11:15:0024[facility]annCHEM ZWLZI2292-88-83 11:15:003.7[facility]annCHEM HNCXL0136-41-20 11:15:000.63[facility]annCHEM NWTKD8633-65-66 11:15:008[facility]annCHEM LFKMR8108-12-56 11:15:98197 [facility] ByavxuzQCJNBDCGGJMXT2916-02-96 11:15:00Negative *NA*(06/28/17 6:15 AM) [facility] CfmugrqPJIXQPDLOW7154-38-72 11:15:0015.4[facility] HermannHEMATOLOGY 2017-06-28 11:15:007.7[facility] FpsviujQIHCWHSPST9949-08-99 11:15:16839Qwrcnvfw KrhvwxqVBWCBCNWQT0233-11-97 11:15:0087.1[facility] HsozlomFGWZIQAIDX7744-81-42 11:15:0037.9[facility] JmeohmcOZGRMWFJZI3271-93-58 11:15:0033.3[facility] ZRCQPAUYSE7234-16-91 11:15:00 Test Item Value Reference Range Interpretation Comments MCH (test code = MCH) 29.0 pg 27.0-31.0 [facility] XtzlmioIVGZTONCAR7240-48-39 11:15:0012.6[facility] HermannHEMATOLOGY 2017-06-28 11:15:004.35[facility] ZrnonfuZHJJLHMACW0049-03-77 11:15:0010.7[facility] DzsblbhLYSCOKZBGB2085-92-78 11:15:000.8[facility] QtzhcgdJIRWRCCHQK7250-43-27 11:15:000.2[facility] RrubtleFCUMWWQKJK0418-56-85 11:15:0072.1[facility] PSDPYBRUZW4221-20-09 11:15:007.7[facility] NmczkwnQULJHVTQYM8197-72-73 11:15:002.0 [facility] FoweerkOQUBEEZUNK4081-51-09 11:15:000.4[facility] HermannHEMATOLOGY 2017-06-28 11:15:007.2[facility] OgzhawzXNARLBPTLT7054-95-76 11:15:001.7[facility] ZfgcebvBLYAXBXMIO6913-15-28 11:15:0018.6[facility]annURINE AND STOOL 2017-06-28 11:15:00Colorless *NA*(06/28/17 6:15 AM)[facility]annUR[facility] AND AVEUN5424-86-24 11:15:00 Test Item Value Reference Range Interpretation Comments UA Spec Grav (test code = UA Spec 1.002 1 Grav) [facility] FHZIS4432-65-27 11:15:00Clear (06/28/17 6:15 AM) [facility] WHPLY4825-30-77 11:15:00 Test Item Value Reference Range Interpretation Comments UA pH (test code = UA pH) 6.0 1 5.0-8.0 [facility] VZVKP4184-09-34 11:15:00Moderate *ABN*(06/28/17 6:15 AM)[facility] CNSFZ7447-29-19 11:15:00Negative *NA*(06/28/17 6:15 AM)[facility] PRJOE3066-86-10 11:15:00Negative (06/28/17 6:15 AM) [facility] JAFPU7225-61-28 11:15:001[facility] AND DFNCC4868-68-94 11:15:00Negative (06/28/17 6:15 AM)[facility] FTDSP1793-67-77 11:15:002[facility] AND IULZC3335-65-98 11:15:001 [facility]
[2021-02-28] MEDS ORDERED: ACETAMINOPHEN 325 MG TABLET ONE (00:02)
--- NOTE | 2021-02-28 03:29 | RAD REPORT ---
EXAM DESCRIPTION: CT - Head Brain Wo Cont - 02/28/2021 12:58 am CLINICAL HISTORY: Headache COMPARISON: October 2020 TECHNIQUE: Computed axial tomography of the head was obtained. IV contrast was not requested. All CT scans are performed using dose optimization technique as appropriate and may include automated exposure control or mA/KV adjustment according to patient size. FINDINGS: Large low-density area within the right frontal lobe compatible with encephalomalacia. Rig ht craniotomy. No acute intracranial bleed noted. Small old left cerebral low-density area compatible with old bleed or old infarction. The ventricles are normal in caliber. No extra-axial fluid collection is noted. . Fluid within the sinuses/ mastoids is not seen. IMPRESSION: No acute intracranial abnormality is seen. If patient's symptoms persist MRI of the bra in would be recommended.
--- NOTE | 2021-02-28 03:42 | EDPHYS ---
Physician Documentation [facility] Name: Dayami Espinosa Age: 51 yrs Sex: Female : 1970 Arrival Date: 02/27/2021 Time: 23:41 Bed 17 Private MD: ED Physician Driss Melchor HPI: 02/28 00:03 This 51 yrs old Female presents to ER via EMS with complaints of headache, knee pain kb s/p fall. 00:03 Details of fall: The patient fell from an upright position, while walking. Onset: The kb symptoms/episode began/occurred just prior to arrival. Associated injuries: The patient sustained injury to the head, pain, right knee and left knee, painful injury. Severity of symptoms: At their worst the symptoms were moderate, in the emergency department the symptoms are unchanged. The patient has not experienced similar symptoms in the past. The patient has not recently seen a physician. Pt states she was walking and stepped in a hole causing her to fall to her knees. c/o bilateral knee pain and headache since the fall. Ambulates with steady gait, bending knees to move around stretcher with no distress or obvious pain. . PRIVACY MANAGER: 02/27 23:45 LMP N/A - bb Historical: - Allergies: 23:45 Amoxicillin; bb 23:45 Pseudoephedrine; bb - Home Meds: 23:45 Depakote 250 mg Oral chew 1 tab 2 times per day for Bipolar Disorder in Remission bb [Active]; - PMHx: 23:45 Anemia; Bipolar disorder; gastritis; Ovarian cyst; bb - PSHx: 23:45 brain surgery; bb - Immunization history:: Adult Immunizations up to date, Client reports having NOT received the Covid vaccine. - Social history:: Smoking status: unknown. ROS: 02/28 00:02 Constitutional: Negative for fever, chills, and weight loss. kb MS/extremity: Positive for pain, of the right knee and left knee. Neuro: Positive for headache. All other systems are negative. Exam: 00:02 Constitutional: This is a well developed, well nourished patient who is awake, alert, kb and in no acute distress. Head/Face: Normocephalic, atraumatic. ENT: Moist Mucous membranes Cardiovascular: Regular rate and rhythm with a normal S1 and S2. No gallops, murmurs, or rubs. No pulse deficits. Respiratory: Respirations even and unlabored. No increased work of breathing, no retractions or nasal flaring. Abdomen/GI: Soft, non-tender. No distention Skin: Warm, dry with normal turgor. Normal color. MS/ Extremity: Pulses equal, no cyanosis. Neurovascular intact. Full, normal range of motion. Neuro: Awake and alert, GCS 15, oriented to person, place, time, and situation. Moves all extremities. Normal gait. Psych: Awake, alert, with orientation to person, place and time. Behavior, mood, and affect are within normal limits. Vital Signs: 02/27 23:43 BP 126 / 72; Pulse 90; Resp 16 S; Temp 98.6; Pulse Ox 98% on R/A; Weight 48.08 kg (R); bb Height 5 ft. 3 in. (160.02 cm) (R); Pain 01/11; 02/28 03:45 BP 100 / 55; Pulse 86; Resp 18 S; Temp 97.9(O); Pulse Ox 97% on R/A; cc4 02/27 23:43 Body Mass Index 18.78 (48.08 kg, 160.02 cm) bb MDM: 02/27 23:45 Patient medically screened. kb 02/28 00:02 Data reviewed: vital signs, nurses notes. Data interpreted: Pulse oximetry: on room air kb is 98 %. Interpretation: normal. 01:42 Counseling: I had a detailed discussion with the patient and/or guardian regarding: the kb historical points, exam findings, and any diagnostic results supporting the discharge/admit diagnosis, radiology results, the need for outpatient follow up, a family practitioner, to return to the emergency department if symptoms worsen or persist or if there are any questions or concerns that arise at home. 01:55 Transition of care: After a detail discussion of the patient's case, care is kb transferred to Driss Melchor MD. 02/27 23:50 Order name: CT Head Brain wo Cont; Complete Time: 03:40 kb Administered Medications: 00:22 Drug: Tylenol 1000 mg Route: PO; mr2 03:45 Follow up: Response: No adverse reaction cc4 Disposition: 06:12 Co-signature as Attending Physician, Driss Melchor MD. [facility] Disposition Summary: 02/28/21 03:42 Discharge Ordered Location: Home [facility] Condition: Stable [facility] Diagnosis - Headache [facility] Followup: kb - With: Emergency Department - When: As needed - Reason: Worsening of condition Followup: kb - With: Private Physician - When: 2 - 3 days - Reason: Recheck today's complaints, Continuance of care, Re-evaluation by your physician Discharge Instructions: - Discharge Summary Sheet kb - Head Injury, Adult, [id number] kb - General Headache Without Cause, [id number] kb Forms: - Medication Reconciliation Form [facility] - Thank You Letter 7 - Antibiotic Education [facility] - Prescription Opioid Use [facility] Signatures: Dispatcher [employer] EDMS Basia Lopez, VITICULTURIST-C VITICULTURIST-Belen Esqueda, RN RN Driss Torres MD MD 7 Gokul Gresham RN RN mr2 Debra Solares RN cc4
--- NOTE | 2021-02-28 03:42 | ER ---
Nurse's Notes [facility] Name: Dayami Espinosa Age: 51 yrs Sex: Female : 1970 Arrival Date: 02/27/2021 Time: 23:41 Bed 17 Private MD: Diagnosis: Headache Presentation: 02/27 23:43 Chief complaint: EMS states: they were toned out for report of pt having fallen to her bb knees denies hitting her head no LOC now has bilateral knee pain pt walked for a while before she called EMS. Coronavirus screen: At this time, the client does not indicate any symptoms associated with coronavirus-19. Ebola Screen: No symptoms or risks identified at this time. Initial Sepsis Screen: Does the patient meet any 2 criteria? No. Patient's initial sepsis screen is negative. Does the patient have a suspected source of infection? No. Patient's initial sepsis screen is negative. Risk Assessment: Do you want to hurt yourself or someone else? Patient reports no desire to harm self or others. Onset of symptoms was February 27, 2021. 23:43 Method Of Arrival: EMS: [facility] 23:43 Acuity: JAZMIN 4 bb Triage Assessment: 02/28 03:45 Pain: Denies pain. cc4 03:45 General: Appears in no apparent distress. comfortable, Behavior is calm, cooperative. cc4 JOB ORDER CLERK: 02/27 23:45 LMP N/A - bb Historical: - Allergies: 23:45 Amoxicillin; bb 23:45 Pseudoephedrine; bb - Home Meds: 23:45 Depakote 250 mg Oral chew 1 tab 2 times per day for Bipolar Disorder in Remission bb [Active]; - PMHx: 23:45 Anemia; Bipolar disorder; gastritis; Ovarian cyst; bb - PSHx: 23:45 brain surgery; bb - Immunization history:: Adult Immunizations up to date, Client reports having NOT received the Covid vaccine. - Social history:: Smoking status: unknown. Screenin/27 03:45 Abuse screen: Denies threats or abuse. Nutritional screening: No deficits noted. cc4 Tuberculosis screening: No symptoms or risk factors identified. Fall Risk None identified. Assessment: 02/27 12:40 General: Appears in no apparent distress. comfortable, Behavior is cooperative, mr2 restless. Vital Signs: 23:43 BP 126 / 72; Pulse 90; Resp 16 S; Temp 98.6; Pulse Ox 98% on R/A; Weight 48.08 kg (R); bb Height 5 ft. 3 in. (160.02 cm) (R); Pain 01/11; 02/28 03:45 BP 100 / 55; Pulse 86; Resp 18 S; Temp 97.9(O); Pulse Ox 97% on R/A; cc4 02/27 23:43 Body Mass Index 18.78 (48.08 kg, 160.02 cm) ED Course: 02/27 23:41 Patient arrived in ED. bp1 23:45 Basia Lopez FNP-C [facility] kb 23:45 Driss Melchor MD is Attending Physician. kb 23:45 Triage completed. bb 23:45 Arm band placed on Patient placed in an exam room, on a stretcher, on pulse oximetry. bb 02/28 00:57 CT Head Brain wo Cont In Process Unspecified. EDMS 00:58 Gokul Gresham, RN is Primary Nurse. mr2 03:45 Bed in low position. Call light in reach. Side rails up X2. cc4 03:45 No provider procedures requiring assistance completed. cc4 03:45 Patient did not have IV access during this emergency room visit. cc4 Administered Medications: 00:22 Drug: Tylenol 1000 mg Route: PO; mr2 03:45 Follow up: Response: No adverse reaction cc4 Outcome: 03:42 Discharge ordered by . [facility] 03:45 Discharged to home ambulatory. cc4 03:45 Condition: improved 03:45 Discharge instructions given to patient, Instructed on discharge instructions, follow up and referral plans. Demonstrated understanding of instructions, follow-up care. 04:04 Patient left the ED. mr2 Signatures: Dispatcher [employer] EDMS Basia Lopez FNP-C FNP-Ckb Ballard, Brenda RN RN bb Noemi Etienne bp1 Driss Melchor MD MD [facility] Debra Solares RN RN cc4 Gokul Gresham, BENI RN mr2
[2021-02-28 04:20] VITALS: BP 100/55; TEMP 97.9; O2SAT 97
== END 2021-02-28 04:04 | disposition home or self-care (01) ==
LOC: ER 23:38
DX: R51.9 Headache, unspecified (principal); M25.562 Pain in left knee; M25.561 Pain in right knee; W19.XXXA Unspecified fall, initial encounter; Y93.01 Activity, walking, marching and hiking; Z88.1 Allergy status to other antibiotic agents; Z88.8 Allergy status to other drugs, medicaments and biological substances
CPT/HCPCS: 70450; 99284

== ENCOUNTER 2021-03-01 00:26 | Emergency (ER) | payer SELFPAY ==
--- OUTSIDE RECORDS SUMMARY | 2021-03-01 00:40 | XMS REPORT | Continuity of Care Document ---
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 19:53:00 [facility] Systolic (mm Hg) 2018-01-31 19:28:00 [facility] [place] Diastolic (mm Hg) 2018-01-31 19:28:00 [facility] [place] Heart Rate 2018-01-31 19:28:00 [facility] [place] Respitory Rate 2018-01-31 19:28:00 [facility] [place] Weight 2018-01-31 19:28:00 [facility] Temperature Oral (F) 2018-01-31 19:28:00 97.9 F [facility] [place] Systolic (mm Hg) 2018-01-31 16:00:00 [facility] [place] Diastolic (mm Hg) 2018-01-31 16:00:00 [facility] [place] Respitory Rate 2018-01-31 16:00:00 [facility] [place] Respitory Rate 2018-01-31 15:07:00 [facility] [place] Systolic (mm Hg) 2018-01-31 15:07:00 [facility] [place] Diastolic (mm Hg) 2018-01-31 15:07:00 [facility] [place] Respitory Rate 2018-01-31 14:02:00 [facility] [place] Systolic (mm Hg) 2018-01-31 14:02:00 [facility] [place] Diastolic (mm Hg) 2018-01-31 14:02:00 [facility] [place] Temperature Oral (F) 2018-01-31 10:46:00 98.6 F [facility] [place] Heart Rate 2018-01-31 10:46:00 [facility] [place] Systolic (mm Hg) 2017-06-28 14:36:00 [facility] [place] Diastolic (mm Hg) 2017-06-28 14:36:00 [facility] [place] Temperature Oral (F) 2017-06-28 14:36:00 98.1 F [facility] [place] Respitory Rate 2017-06-28 14:36:00 [facility] [place] Heart Rate 2017-06-28 14:36:00 [facility] [place] Respitory Rate 2017-06-28 09:31:00 [facility] [place] Temperature Oral (F) 2017-06-28 09:31:00 97.9 F [facility] [place] Weight 2017-06-28 09:31:00 [facility] Heart Rate 2017-06-28 09:31:00 [facility] [place] Systolic (mm Hg) 2017-06-28 09:31:00 [facility] [place] Diastolic (mm Hg) 2017-06-28 09:31:00 [facility] [place] Procedures Procedure Date / Time Performed Performing Clinician [facility] e CONSENT/REFUSAL FOR 2021-02-20 05:09:04 Doctor Unassigned, No [facility] [place] [facility] TREATMENT NOTICE OF PRIVACY 2020-12-17 05:49:43 Doctor Unassigned, No [facility] [place] [facility] Name [facility] CONSENT/REFUSAL FOR 2020-12-17 05:49:22 Doctor Unassigned, No [facility] [place] [facility] TREATMENT CONSENT/REFUSAL FOR 2020-11-07 08:31:45 Doctor Unassigned, No [facility] [place] [facility] AND Name [facility] TREATMENT NOTICE OF PRIVACY 2020-09-28 05:36:52 Doctor Unassigned, No [facility] [place] [facility] Name [facility] CONSENT/REFUSAL FOR 2020-09-28 05:31:04 Doctor Unassigned, No [facility] [place] [facility] TREATMENT XR ANKLE 3+ VW RIGHT 2020-09-24 05:48:05 Umu Barillas [facility] [place] [facility] XR FOOT 3+ VW RIGHT 2018-11-26 08:52:27 Umu Barillas [facility] [place] [facility] NOTICE OF PRIVACY 2018-11-26 08:32:51 Doctor Unassigned, No [facility] [place] [facility] Name [facility] CONSENT/REFUSAL FOR 2018-11-26 08:31:21 Doctor Unassigned, No [facility] [place] [facility] Name [facility] TREATMENT EKG-12 LEAD 2018-11-04 07:40:11 [facility] o [facility] Medical Branch POCT GLUCOSE 2018-11-04 07:33:00 [facility] o [facility] (AUTOMATED) Medical Branch CONSENT/REFUSAL FOR 2018-11-04 06:31:07 Doctor Unassigned, No [facility] [place] [facility] TREATMENT Plan of Care Planned Activity Planned Date Details Comments Source Future Scheduled 2019-12-04 INFLUENZA VACCINE (#1) [facility]:00 [code = INFLUENZA Medical Ce nter VACCINE (#1)] Future Scheduled [address] [facility] Test 00:00:00 (procedure) [code = [facility] 54435164] Future Scheduled [address] [facility] Test 00:00:00 malignant neoplasm of [facility] cervix (procedure) [code = 466932777] Future Scheduled [address] [facility] - Test 00:00:00 0-64 YRS (1 of 1 - Medical C enter PPSV23) [code = PNEUMOCOCCAL VACCINE 0-64 YRS (1 of 1 - PPSV23)] Future Scheduled [address] [facility] - Test 00:00:00 malignant neoplasm of [facility] breast (procedure) [code = 143438435] Future Scheduled [address] [facility] - Test 00:00:00 malignant ne[facility] of [facility] colon (procedure) [code = 337362298] Future Scheduled [facility] [code = COLONOSCOPY SCREENING] Future Scheduled SHINGLES [facility]INES (#[facility] [code = SHINGLES VACCINES (#1)] Future Scheduled [facility] [code = INFLUENZA VACCINE] Future Scheduled COVID-19 [facility]ACCINE (1) [facility] [code = COVID-19 VACCINE (1)] Future Scheduled [facility] Test malignant neoplasm of cervix (procedure) [code = 101135513] Future Scheduled BREAST CANCER [facility] Test SCREENING [code = BREAST CANCER SCREENING] Encounters Start End Encounter Admission Attending Care Care Encounter Source Date/Time Date/Time Type Type Clinicians Facility Department ID 2021-02-19 2021-02-20 [facility] [id number] Univers 23:23:00 01:46:00 TAHIR strickland [facility] 2021-02-19 2021-02-20 [facility] [id number] Univers 23:23:00 01:46:00 Tahir Baron RIAN [id number] ity of [place] 4.2.7.2.686 [facility] [id number] [address] 2021-01-12 2021-01-12 [facility] [id number] Univers 03:24:00 03:55:00 Umu Mead [id number] ity of [place] 4.2.7.2.686 [facility] [id number] [address] 2021-01-12 2021-01-12 [facility] ERT [id number] Univers 03:24:00 03:24:00 UMU strickland [facility] 2021-01-11 2021-01-11 [facility] [id number] Univers 19:24:00 20:00:00 Umu Mead 350.1.13.10 ity of [place] 4.2.7.2.686 [facility] [id number] [address] 2021-01-11 2021-01-11 Emergency X NARGIS, [facility] ERT [id number] Univers 19:24:00 19:24:00 UMU ity [facility] 2020-12-17 2020-12-17 Emergency Malloy, [facility] [id number] Univers 01:00:00 01:40:00 Donnie Bridgeton 350.1.13.10 i ty of [place] 4.2.7.[address] [place] [id number] 2020-12-17 2020-12-[address] [facility] ERT [id number] Univers 00:47:00 00:47:00 ity [facility] 2020-11-07 2020-11-07 Emergency [facility] [id number] 03:52:00 06:43:00 Tahir Loraine Br[place] 350.1.13.10 [place] [address] [place] [address] [id number] [facility] 2020-11-07 2020-11-07 Emergency [facility], [facility] [id number] Univers 03:52:00 06:43:00 Tahir Loraine Bridget[place] 350.1.13.10 ity of [place] 4.2.7.2.[address] [place] [id number] 2020-11-07 2020-11-[address] [facility] ERT [id number] Univers 03:31:00 03:31:00 ity [facility] 2020-09-27 2020-09-28 Emergency [facility], [facility] [id number] 23:09:00 03:14:00 Shahbazelvigianna Baron [place] 350.1.13.10 [place] 4.2.7.[address] [place] [address] [id number] [facility] 2020-09-27 2020-09-28 Emergency [facility], [facility] [id number] Univers 23:09:00 03:14:00 Tahir Loraine [place] 350.1.13.10 ity of [place] 4.2.7.2.686 [facility] [id number] [address] 2020-09-27 2020-09-[address] [facility] ERT [id number] Univers 23:09:00 23:09:00 TAHIR strickland [facility] 2020-09-24 2020-09-24 [facility] [id number] 00:36:00 01:37:00 Umu Mead 350.1.13.10 [place] 4.2.7.2.686 [place] [id number] 2020-09-24 2020-09-24 Emergency [facility] [id number] [facility] 00:36:00 01:37:00 Umu Mead 350.1.13.10 ity of [place] 4.2.7.2.686 [facility] [id number] [address] 2020-09-24 2020-09-24 Emergency [facility]RT [id number] Univers 00:36:00 00:36:00 MUU strickland [facility] 2018-11-27 2018-11-27 Patient Edilia Gonzalez 1.2.840.114 [id number] 00:00:00 00:00:00 Outreach E New 350.1.13.10 [place] 4.2.7.2.686 [id number] 2018-11-27 2018-11-27 Patient Edilia Gonzalez 1.2.840.114 [id number] [facility] 00:00:00 00:00:00 Outreach E New 350.1.13.10 i ty of [place] 4.2.7.2.686 [facility] [phone] [facility] [address] Branch 2018-11-26 2018-11-26 Emergency [facility] 1.2.840.114 [id number] 03:43:44 04:30:00 Umu Mead 350.1.13.10 [place] 4.2.7.2.686 [place] [id number] [facility] 2018-11-26 2018-11-26 Emergency [facility] 1.2.840.114 [id number] [facility] 03:43:44 04:30:00 Umu Juan [place] 350.1.13.10 ity of [place] 4.2.7.2.686 [facility] [id number] [address] 2018-11-04 2018-11-04 Emergency Gil, [facility] [id number] 02:27:58 03:11:00 David Plascenciaton 350.1.13.10 [place] 4.2.7.2.686 [place] [id number] [facility] 2018-11-04 2018-11-04 Emergency Gil, [facility] [id number] [facility] 02:27:58 03:11:00 David Mead 350.1.13.10 i ty of [place] 4.2.7.2.686 [facility] [id number] [address] 2018-11-04 2018-11-04 Orders Doctor MONTALVO 1.2.840.114 [id number] 00:00:00 00:00:00 Only Unassigned, HILTON 350.1.13.10 [place] [facility] 4.2.7.2.[id number] [facility] 2018-11-04 2018-11-04 Orders Doctor SELVIN 1.2.840.114 [id number] [facility] 00:00:00 00:00:00 Only Unassigned, HILTON 350.1.13.10 ity of [place] [facility] 4.2.7.2.686 [facility] [id number] [address] 2018-04-17 2018-04-19 Phone nullFlavo TNA [id number] Memoria 19:55:00 05:59:59 Message r Neurosurger 00 l y [facility] 2018-04-13 2018-04-14 [facility] [id number] Memoria 19:48:00 19:15:00 desi Jo 10 [facility] 2018-01-31 2018-01-31 Emergency nullFlavo [facility] [id number] Memoria 19:12:00 23:03:00 desi Jo 01 [facility] 2018-01-31 2018-01-31 Emergency nullFlavo [facility] [id number] Memoria 10:46:00 18:01:00 r [place] 03 l [facility] 2017-07-02 2017-07-02 Emergency E [facility] [id number] 08:16:00 08:16:00 [facility] 2017-06-28 2017-06-28 Emergency [facility] [id number] [facility] 09:28:00 14:45:00 r [place] 00 l [facility] Results Test Description Test Test Results Result Source Time Comments Comments XR FOOT 3+ VW 2018-11- No acute osseous Univ ersity of RIGHT 25 injury identified. [facility] 09:14:11 Severe osteoarthritis Bra nch [...] Comme nts POCT GLU (test code = 4238267938) 111 mg/dL 70-110 H Lab Interpretation (test code = 72639-1) [facility] [id number] 08:06:00 Test Item Value Reference Range Interpretation Comments SCAN RESULT (test code = 1150336) CELIAC DISEASE PROFILE Refer to Celiac AUTOVERIFICATION (QUEST) Disease Panel (test code = 1698487) results. CT, [id number] 19:42:00Only need IV contrast, not POFINAL REPORT [...] MDRivaniaort Verified Date/Time: 09/05/2018 19:42:13 Reading Location: [address] Consult Reading Room RAD, ABDOMEN/KUB, 1 VIEW AP 2018-09-05 15:30:00Reason for exam:->look for retained video capsuleAddendum BeginsREPORT STATUS:A Addendum:The video capsule is seen projected over the right iliac wing. It could be in the distal ileum versus large bowel. If in exact location isneeded. CT scan will be necessary. End of addendum. Signed: Reza Lira MDReport Verified Date/Time: 09/05/2018 15:30:35 Reading Location: [facility] Radiology Reading RoomAddendum EndsFINAL REPORT TECHNIQUE: Supine radiograph of the abdomen dated 09/05/2018 HISTORY: Evaluate for retained video capsule. COMPARISON: None IMPRESSION:No air-filled, dilated loops of bowel to suggest obstruction. No free intraperitoneal air. No abnormal soft tissue mass. No radiodense foreign body v isualized. Bones are unremarkable. Signed: Reza Lira MDReport Verified Date/Time: 09/05/2018 14:53:33 Reading Location: [facility] Radiology Reading Room GI PATHOGEN PROFILE BY [id number] 10:43:00 Test Item Value Reference Range Interpretation [...] Not detected BY PCR (test code = 7281649) ENTEROPATHOGENIC E. COLI (EPEC) Not detected Not detected BY PCR (test code = 20151106) ENTEROTOXIGENIC E. COLI (ETEC) Not detected Not detected LT/ST BY PCR (test code = 8731769) SHIGA-LIKE TOXIN-PRODUCING E. Not detected Not detected [...] (test Not detected Not detected code = 6015762) ROTAVIRUS A (PCR) (test code = Not detected Not detected 20151209) SAPOVIRUS (I, II, IV, V) BY PCR Not detected Not detected (test code = 5017902) VIBRIO (PARAHAEMOLYTICUS, Not detected Not detected VULNIFICUS) (test code = 4940482) Other viruses, parasites and bacteria not targeted by this PCR panel cannot be excluded; therefore clinical correlation and follow up of serology, culture results, and other molecular studies is required. The results are not intended to be used as the sole means for clinical diagnosis or patient management decisions. This sample was tested at the [facility] Molecular Diagnostics Laboratory using the ANPI Gastrointestinal Panel. It is FDA cleared and has been verified and approved by the [facility] Molecular Diagnostics [facility] for clinical use. This laboratory is CLIA-certified and College ofAmerican Pathologists (CAP)-accredited to perform high complexity testing.BASIC METABOLIC [id number] 05:42:00 Test Item Value Reference Range Interpretation [...] 0-0 (BEAKER) (test code = 413) C-REACTIVE [id number] 18:59:00 Test Item Value Reference Range Interpretation Comments C-REACTIVE PROTEIN (BEAKER) (test 0.38 mg/dL 0.00-0.50 code = 676) [id number] 05:48:00 Test Item Value Reference Range Interpretation Comments FERRITIN (BEAKER) (test code = 361) 13 ng/mL 5-275 BASIC METABOLIC [id number] 05:27:00 Test Item Value Reference Range Interpretation [...] 0-0 (BEAKER) (test code = 413) RETICULOCYTE [id number] 05:05:00 Test Item Value Reference Range Interpretation Comments RETICULOCYTE COUNT PCT (BEAKER) (test 1.1 % 0.5-1.7 code = 575) SCREEN, [id number] 15:17:00 Test Item Value Reference Range Interpretation Comments TEST URINE (BEAKER) (test Negative code = 583) BASIC METABOLIC [id number] 04:53:00 Test Item Value Reference Range Interpretation [...] 0-0 (BEAKER) (test code = 413) CHEM [id number] 03:57:003.0[facility] [id number] 03:57:000.3 [facility]ann[facility] [id number] 03:57:00 Test Item Value Reference Range Interpretation Comments A/G Ratio (test code = A/G Ratio) 1.0 1 0.7-1.6 [facility] [id number] 03:57:000.1[facility]annCHEM PANEL 2018-04-14 03:57:000.4[facility]annCHEM [id number] 03:57:0049[facility]annCHEM [id number] 03:57:0024[facility]annCHEM [id number] 03:57:006.0[facility]annCHEM [id number] 03:57:0019[facility]annCHEM [id number] 03:57:003.0[facility]annCHE[facility] [id number] 03:57:003.0 [facility] [id number] 03:57:000.3[facility]annCHEM PANEL 2018-04-14 03:57:00 Test Item Value Reference Range Interpretation Comments A/G Ratio (test code = A/G Ratio) 1.0 1 0.7-1.6 [facility] [id number] 03:57:000.1[facility]annCHEM PANEL 2018-04-14 03:57:000.4[facility]annCHEM [id number] 03:57:0049[facility]annCHEM [id number] 03:57:0024[facility]annCHEM [id number] 03:57:006.0[facility]annCHE[facility] [id number] 03:57:0019[facility]annCHE[facility] [id number] 03:57:003.0[facility]annCHE[facility] [id number] 03:57:003.0 [facility] [id number] 03:57:000.3[facility]annCHE[facility] PANEL 2018-04-14 03:57:00 Test Item Value Reference Range Interpretation Comments A/G Ratio (test code = A/G Ratio) 1.0 1 0.7-1.6 [facility] [id number] 03:57:000.1[facility]annCHEM PANEL 2018-04-14 03:57:000.4[facility]annCHE[facility] [id number] 03:57:0049[facility]annCHEM [id number] 03:57:0024[facility]annCHE[facility] [id number] 03:57:006.0[facility]ann[facility] [id number] 03:57:0019[facility]annCHE[facility] [id number] 03:57:003.0[facility]annCHE[facility] [id number] 03:57:003.0 [facility] [id number] 03:57:000.3[facility]annCHEM PANEL 2018-04-14 03:57:00 Test Item Value Reference Range Interpretation Comments A/G Ratio (test code = A/G Ratio) 1.0 1 0.7-1.6 [facility] [id number] 03:57:000.1[facility]annCHEM PANEL 2018-04-14 03:57:000.4[facility]annCHEM [id number] 03:57:0049[facility]annCHEM [id number] 03:57:0024[facility]annCHEM [id number] 03:57:006.0[facility]annCHE[facility] [id number] 03:57:0019[facility]annCHE[facility] [id number] 03:57:003.0Memorial CmjghwmAXSIIMHDMX5334-22-98 21:07:000.2 [facility] HermannCHEM [id number] 21:07:38042Hfkqiuvk HermannCHEM PANEL 2018-04-13 21:07:30800Ttlcgthn HermannCHEM [id number] 21:07:0023[facility]annCHEM [id number] 21:07:000.58[facility]annCHEM YDBWV5369-11-57 21:07:31754Bvithert HermannCHEM SXKJM0999-70-22 21:07:004.4[facility]annCHE[facility] [id number] 21:07:008.6[facility]annCHE[facility] ENNKV1284-12-99 21:07:007 [facility] WNBIL9398-06-21 21:07:08044Gvthhxis HermannCHEM PANEL 2018-04-13 21:07:0013.4Memorial VgsmxjqJUJFEPLKFR7032-87-82 21:07:002.1Mem[facility] Hospit[facility] AmericaFguywqvZEXBHWZWVI6081-60-72 21:07:00 Test Item Value Reference Range Interpretation Comments Angle Rapid (test code = Angle 75 degrees 64-80 Rapid) [facility] IrvingDkcgwctFTXWAMEJCH2233-25-50 21:07:008.6[facility] 2018-04-13 21:07:00 Test Item Value Reference Range Interpretation Comments Max Amplitude Rapid (test code = Max 63 mm 52-71 Amplitude Rapid) [facility] IrvingZtqntzaRDQZUWELZR6198-77-52 21:07:00 Test Item Value Reference Range Interpretation Comments R-time Rapid (test code = R-time 0.7 min 0.4-0.7 Rapid) [facility] IrvingIddqripOQVBHRBZQG4741-43-44 21:07:00 Test Item Value Reference Range Interpretation Comments K-time Rapid (test code = K-time 1.2 min 0.6-2.3 Rapid) [facility] IrvingMrgqrhdINLIQIQQNB2389-19-51 21:07:00 Test Item Value Reference Range Interpretation Comments ACT (TEG) Rapid (test code = ACT (TEG) 113 s 86-118 Rapid) [facility] IrvingAljybstJAQFKHYYCI3139-64-18 21:07:00 Test Item Value Reference Range Interpretation Comments Split Point Rapid (test code = Split 0.6 min Point Rapid) [facility] HospitalYzkimajXJBOVFXWKR8439-09-58 21:07:00 Test Item Value Reference Range Interpretation Comments PTT (test code = PTT) 30.6 s 22.9-35.8 [facility] HospitalSthamrsFSLZOEAIPG3082-59-07 21:07:00 Test Item Value Reference Range Interpretation Comments INR (test code = INR) 1.03 1 0.85-1.17 [facility] XuugjpwZQUZRCOMMY4833-88-15 21:07:00 Test Item Value Reference Range Interpretation Comments PT (test code = PT) 13.3 s 12.0-14.7 [facility] NlwzxzhMFBIVFNFSS1964-78-47 21:07:0011.1[facility]annHEMATOLOGY 2018-04-13 21:07:0033.7Memorial NyytfqkCZSUCDCRVM0131-92-59 21:07:004.04Memorial VqtcfaiNDGGYPXKXC1181-41-85 21:07:005.8[facility]orial QexqrkxDPHGEROJCJ2686-76-99 21:07:0017.2[facility]orial KtcjgldZIEUUULUAO3093-39-98 21:07:69231Dniwdgmm [place] EOREPUEUGW3238-01-61 21:07:0032.9Memorial DkiieblKBNNKIMGNB6375-16-89 21:07:00 83.5Memorial TgkwhomNNMKBYZLKT9727-69-24 21:07:00 Test Item Value Reference Range Interpretation Comments MCH (test code = MCH) 27.5 pg 27.0-31.0 [facility] DtxgrwmEVTBIWZHDB5878-54-78 21:07:008.4[facility] HermannHEMATOLOGY 2018-04-13 21:07:0056.3Memorial JweqgcxXZCFHWYTWT0800-24-69 21:07:0029.4[facility]orial KyrjhptPRHRKUYFMQ7304-59-02 21:07:009.6[facility]orial ZcnwixcPWFYUCXCJI3489-64-77 21:07:004.0[facility]orial BfszialAKLCJMVQZH2999-12-89 21:07:000.7[facility] [place] NRNKCVCASG4268-72-94 21:07:003.3[facility] KsmzrikBJLREUXVUW6321-14-61 21:07:001.7 [facility] HospitalUjkfbqwMPAMZJBFMU0130-60-38 21:07:000.6[facility]HE[facility]OLOGY 2018-04-13 21:07:000.2[facility] HermannCHEM GKHUD0906-17-16 21:07:65409Opqnevft HermannCHEM SAQBD4400-13-63 21:07:94406Kvsmdunk HermannCHEM XZNAP6099-33-16 21:07:0023[facility] HermannCHEM MBLVE9654-41-16 21:07:000.58[facility] HermannCHEM AYKCA9207-61-38 21:07:04093Amoavkmu HermannCHEM DFBIO5852-35-38 21:07:004.4 [facility] HermannCHEM [id number] 21:07:008.6[facility] HermannCHEM PANEL 2018-04-13 21:07:007[facility] HermannCHEM [id number] 21:07:01651Lpvyxyqi HermannCHEM [id number] 21:07:0013.4[facility] ZstxndxLRCEKHFCOY0330-82-58 21:07:002.1[facility] CenterQzlrlohAJORVESLGE0558-07-05 21:07:00 Test Item Value Reference Range Interpretation Comments Angle Rapid (test code = Angle 75 degrees 64-80 Rapid) [facility]RcoeuqkDCXSIWRKBV9030-54-74 21:07:008.6[facility] 2018-[facility] 21:07:00 Test Item Value Reference Range Interpretation Comments Max Amplitude Rapid (test code = Max 63 mm 52-71 Amplitude Rapid) [facility] [facility]FvjntvbPNMEHVMRPS1725-56-17 21:07:00 Test Item Value Reference Range Interpretation Comments R-time Rapid (test code = R-time 0.7 min 0.4-0.7 Rapid) [facility] IrvingBcruwtbFLAOERMTMV9746-17-44 21:07:00 Test Item Value Reference Range Interpretation Comments K-time Rapid (test code = K-time 1.2 min 0.6-2.3 Rapid) [facility] IrvingNjscvwvCRWYJOCSKT1359-38-53 21:07:00 Test Item Value Reference Range Interpretation Comments ACT (TEG) Rapid (test code = ACT (TEG) 113 s 86-118 Rapid) [facility]landsLdmbwssTNDYOZRBYD4942-07-36 21:07:00 Test Item Value Reference Range Interpretation Comments Split Point Rapid (test code = Split 0.6 min Point Rapid) [facility] HospitalKjnngzqPFRWXJQCOK0463-70-93 21:07:00 Test Item Value Reference Range Interpretation Comments PTT (test code = PTT) 30.6 s 22.9-35.8 [facility] HospitalZxyivcnRUGROUQTHW8445-43-75 21:07:00 Test Item Value Reference Range Interpretation Comments INR (test code = INR) 1.03 1 0.85-1.17 [facility] HospitalWtbqlnmBJDTQHXHES0914-22-84 21:07:00 Test Item Value Reference Range Interpretation Comments PT (test code = PT) 13.3 s 12.0-14.7 [facility] GwnohavSKOZAQOELE0168-75-05 21:07:0011.1[facility] 2018-[facility]-13 21:07:0033.7[facility] YoevaaaVKOPOVQJIL2447-95-22 21:07:004.04[facility] WpjstzeSLLOGSIZTB4957-48-41 21:07:005.8[facility] WtpgrjcGENNFRAXJL9554-86-31 21:07:0017.2[facility] JykgdspUTLNCQAIQZ7625-57-29 21:07:41785Phaydxuo [place] HUORUAIDUT0974-73-22 21:07:0032.9[facility] VlsqdudETQUNHWSLY9118-34-22 21:07:00 83.5[facility] CxbvpiwKAAYSDLTUY5952-34-20 21:07:00 Test Item Value Reference Range Interpretation Comments MCH (test code = MCH) 27.5 pg 27.0-31.0 [facility] IlmaearRAHGLHGCDA6288-50-32 21:07:008.4[facility]annHEMATOLOGY 2018-04-13 21:07:0056.3[facility] EsbivmuUTUALMGAXJ9779-93-53 21:07:0029.4[facility] QdreleoCULDQVJJNY5249-91-68 21:07:009.6[facility] GptufevKMTUTMWYYT2851-67-55 21:07:004.0[facility] SezlvmeBAMQHMGSVR5489-19-57 21:07:000.7[facility] GGKAVGFSWB6488-38-41 21:07:003.3[facility] EvzqjvvBLNLFNTBTI1575-83-35 21:07:001.7 [facility] DjgwbziKLJYKMGLJR7842-17-89 21:07:000.6[facility] HermannCHEM PANEL 2018-04-13 21:07:39180Xhzxbalh HermannCHEM QKPUV1088-36-19 21:07:86456Vbeqvzfl HermannCHEM OAEXI2025-91-85 21:07:0023[facility]annCHEM SNGXD9357-62-38 21:07:000.58[facility]annCHEM JQMYJ8927-85-76 21:07:36101Fdhqiagn HermannCHEM YHIBO1832-40-16 21:07:004.4[facility] HermannCHEM FIPFF0269-62-77 21:07:008.6 [facility]annCHEM IJGAK3192-24-12 21:07:007[facility]annCHEM PANEL 2018-04-13 21:07:26127Qwgjzymg HermannCHEM IEPXJ6809-17-61 21:07:0013.4[facility] JvkdznjRJZRFNMYGI1716-71-80 21:07:002.1[facility] JxkxmhxLZDGZOBGEK1069-89-31 21:07:00 Test Item Value Reference Range Interpretation Comments Angle Rapid (test code = Angle 75 degrees 64-80 Rapid) [facility] HospitalUmrmtukSSZIGSBTKR9305-31-44 21:07:008.6[facility] 2018-[facility]-13 21:07:00 Test Item Value Reference Range Interpretation Comments Max Amplitude Rapid (test code = Max 63 mm 52-71 Amplitude Rapid) [facility] HospitalOgsikvtVOBBECUPXX6774-24-00 21:07:00 Test Item Value Reference Range Interpretation Comments R-time Rapid (test code = R-time 0.7 min 0.4-0.7 Rapid) [facility] HospitalPyuwlyhRFCJQAHNIN4450-63-40 21:07:00 Test Item Value Reference Range Interpretation Comments K-time Rapid (test code = K-time 1.2 min 0.6-2.3 Rapid) [facility] HospitalEppmakrIEENNIEVQV5746-69-25 21:07:00 Test Item Value Reference Range Interpretation Comments ACT (TEG) Rapid (test code = ACT (TEG) 113 s 86-118 Rapid) [facility] HospitalKcjsgpbCQZCPYMPQD3242-07-65 21:07:00 Test Item Value Reference Range Interpretation Comments Split Point Rapid (test code = Split 0.6 min Point Rapid) [facility] HospitalHwupzrwPBMDQSLFLL7343-05-33 21:07:00 Test Item Value Reference Range Interpretation Comments PTT (test code = PTT) 30.6 s 22.9-35.8 [facility] HospitalNthefmcCSGAPYDUHW2522-61-04 21:07:00 Test Item Value Reference Range Interpretation Comments INR (test code = INR) 1.03 1 0.85-1.17 [facility] HospitalBppautwTCJSHZKZVQ4317-30-72 21:07:00 Test Item Value Reference Range Interpretation Comments PT (test code = PT) 13.3 s 12.0-14.7 [facility] HospitalXyzwhuvCVYILIWSEP6955-89-56 21:07:0011.1[facility]annHEMATOLOGY 2018-04-13 21:07:0033.7[facility] LrzsccaAYSECKKNIW2155-07-82 21:07:004.04[facility] BrhgdbwOFPXDSIPHR7056-20-32 21:07:005.8[facility] LrumbvfMXHPXVIDVU6210-81-77 21:07:0017.2[facility] KzrbcipXUDUWVSCZU6907-70-75 21:07:51132Pdfidwzm [place] NWYXLAFGOY0414-34-46 21:07:0032.9[facility] VpyzlwoQQDXLRKUDX3781-08-19 21:07:00 83.5[facility] AmxtkjbFQYOLABAPC7127-69-86 21:07:00 Test Item Value Reference Range Interpretation Comments MCH (test code = MCH) 27.5 pg 27.0-31.0 [facility] HpwuletQZOQZULXVB8117-23-06 21:07:008.4[facility]annHEMATOLOGY 2018-04-13 21:07:0056.3[facility] FqebticFHWFJWDPWL2154-56-79 21:07:0029.4[facility] CawnsoaCWEZYOGZKP2654-41-82 21:07:009.6[facility] VsbmpxkVIYWLZPCXX6725-39-02 21:07:004.0[facility] HcspiioQHGDJFTZCH1300-29-93 21:07:000.7[facility] [place] XKIALSDBCK3525-03-73 21:07:003.3[facility] VtljnjnQUADNWTXTH4750-93-10 21:07:001.7 [facility] ZshpapoZUEEJLHDRU8613-79-74 21:07:000.6[facility]annHEMATOLOGY 2018-04-13 21:07:000.2[facility] OqlooejMCXXKKGXNV6705-69-01 21:07:001.7[facility] FmvlovpCFXIZZIVBB4834-19-85 21:07:000.emorial DhnjkajFUSNOHPOUG4865-61-44 21:07:000.2[facility] HermannCHEM MIZGZ0279-00-07 21:07:87422Tzvinoom HermannCHEM YWEPO7035-67-65 21:07:32401Jbltpkfq HermannCHEM YOELO5798-18-92 21:07:0023 [facility]annCHEM SRRSL3357-57-29 21:07:000.58[facility] HermannCHEM PANEL 2018-04-13 21:07:07512Rexmpsgg HermannCHEM RIAQA9691-97-59 21:07:004.4[facility] HermannCHEM BGZXZ7847-54-21 21:07:008.6[facility] HermannCHEM GNHUS2940-16-85 21:07:007[facility] HermannCHEM KTAUV9110-47-61 21:07:83830Kmuqbnua HermannCHEM BQJMN7079-59-47 21:07:0013.4[facility] JzpbbbyBUZPUOIGJH1360-00-36 21:07:002.1 [facility]landsNdqautqGRUAUNALKU6684-79-26 21:07:00 Test Item Value Reference Range Interpretation Comments Angle Rapid (test code = Angle 75 degrees 64-80 Rapid) [facility]landsVlivjzgFLIJSMQSUR7587-83-79 21:07:008.6[facility]annHEMATOLOGY 2018-04-13 21:07:00 Test Item Value Reference Range Interpretation Comments Max Amplitude Rapid (test code = Max 63 mm 52-71 Amplitude Rapid) [facility]landsUhfveowXCEERLLVSL9597-51-58 21:07:00 Test Item Value Reference Range Interpretation Comments R-time Rapid (test code = R-time 0.7 min 0.4-0.7 Rapid) [facility]landsOzayoydHIGSULOLAI0369-30-50 21:07:00 Test Item Value Reference Range Interpretation Comments K-time Rapid (test code = K-time 1.2 min 0.6-2.3 Rapid) [facility]landsAausvdlPTVUQWLLNT4467-58-41 21:07:00 Test Item Value Reference Range Interpretation Comments ACT (TEG) Rapid (test code = ACT (TEG) 113 s 86-118 Rapid) [facility]landsNeckbpbIVZHDANWCY6013-06-88 21:07:00 Test Item Value Reference Range Interpretation Comments Split Point Rapid (test code = Split 0.6 min Point Rapid) [facility]landsTbtqrjlQRIBEASALA5148-85-25 21:07:00 Test Item Value Reference Range Interpretation Comments PTT (test code = PTT) 30.6 s 22.9-35.8 [facility] HospitalLbbuzotRJCZJTZSYO8755-57-23 21:07:00 Test Item Value Reference Range Interpretation Comments INR (test code = INR) 1.03 1 0.85-1.17 [facility] HospitalPgiijodPBEITWCFTA5577-34-14 21:07:00 Test Item Value Reference Range Interpretation Comments PT (test code = PT) 13.3 s 12.0-14.7 [facility] HospitalMejcydoHEQHWRCIQK8268-54-41 21:07:0011.1[facility]annHEMATOLOGY 2018-04-13 21:07:0033.7[facility] IgnfxgvATBRNVGQNH7045-65-43 21:07:004.04[facility] MuezqpnPUQWBNUHVZ8717-45-29 21:07:005.8[facility] HwqjcnkYVZAMKRRPO0765-16-80 21:07:0017.2[facility] KctstgkNCLNRUQICM4399-42-51 21:07:70175Chlufijg [place] KHRNPNLECX0993-11-11 21:07:0032.9[facility] AewocmjPJZXCGKVUW6912-26-21 21:07:00 83.5[facility] RkfwwalHZXVOHVOAP9215-02-27 21:07:00 Test Item Value Reference Range Interpretation Comments MCH (test code = MCH) 27.5 pg 27.0-31.0 [facility] HospitalCznsgsfNFDNRLADGZ6274-42-50 21:07:008.4[facility]annHEMATOLOGY 2018-04-13 21:07:0056.3[facility] DcqmdvaMDFXRFSSSO3632-46-03 21:07:0029.4[facility] FlhgkicORJNSEMTBL6471-33-40 21:07:009.6[facility] HvgvxuxGAPQFLAGNK9613-60-51 21:07:004.0[facility] NvuzygfBPJVKUQPVS3827-90-64 21:07:000.7[facility] [place] ZPYRZPKXZN4386-99-92 21:07:003.3[facility]annBLOOD BANK JWJYZEC3808-98-68 11:47:00Negative (01/31/18 6:47 AM)[facility]annBL[facility] BANK FUMCDFE4038-78-73 11:47:00Negative (01/31/18 6:47 AM)[facility]BL[facility] BANK QAZXNRN7183-18-26 11:47:00Negative (01/31/18 6:47 AM)[facility]annBL[facility]OD BANK MIYLQWC6677-94-48 11:47:00Negative (01/31/18 6:47 AM)[facility] HermannCHEM SHCTG2770-89-42 11:41:00 105[facility] HermannCHEM HQVBV6539-13-08 11:41:008.3[facility] HermannCHEM PANEL 2018-01-31 11:41:17020Hedkhgwn HermannCHEM SJDBH3508-05-55 11:41:0027[facility] HermannCHEM TRQOH9503-61-99 11:41:0095[facility] HermannCHEM NJHHS2400-76-69 11:41:004.2[facility] HermannCHEM IYUPN4061-64-59 11:41:000.65[facility] HermannCHEM YEIYW9823-58-35 11:41:0011[facility] HermannCHEM XIILZ5976-97-58 11:41:51673 [facility]annCHEM PYJZM2991-84-05 11:41:008.2[facility] HermannCHEM PANEL 2018-01-31 11:41:000.8[facility] HermannDRUG NBLGSP0998-48-64 11:41:00See Note (01/31/18 6:41 AM)[facility] HermannDRUG DTSIAK2000-28-50 11:41:00Negative *NA*(01/31/18 6:41 AM)[facility] HermannDRUG CYLOQX8613-98-85 11:41:00Negative *NA*(01/31/18 6:41 AM)[facility] HermannDRUG CCAKUS4992-27-57 11:41:00Negative *NA*(01/31/18 6:41 AM)[facility] HermannDRUG RKMLRD5554-48-82 11:41:00Negative *NA*(01/31/18 6:41 AM)[facility]annDRUG KSAFIT5998-95-34 11:41:00Negative *NA*(01/31/18 6:41 AM)[facility] HermannDRUG TCJPUW0975-63-11 11:41:00Negative *NA*(01/31/18 6:41 AM)[facility] HermannDRUG TSIIGE8751-63-08 11:41:00Negative *NA*(01/31/18 6:41 AM)[facility] VxruaupWAJRNAZUMXGNC0876-75-93 11:41:00Negative *NA*(01/31/18 6:41 AM)[facility] EalozdtTBPDUSFLDS7751-71-36 11:41:000.7[facility] McwsjeyOSNOGRFMDK7597-21-79 11:41:002.9[facility] TntwiofGRNNGZASMA5451-88-72 11:41:000.2[facility] UhequzlGRFPHMRKBF6277-69-95 11:41:0055.3[facility] [place] HQZKTJPDNM1638-92-36 11:41:0033.5[facility] CgngudhJRPBBGAWUK2947-43-88 11:41:00 8.5[facility] OvmihnlMXWGGJLBTN3466-09-45 11:41:000.4[facility] HermannHEMATOLOGY 2018-01-31 11:41:002.3[facility] OnoxiuiDHQVNFBZCU7056-16-90 11:41:004.9[facility] EofnwmaZDBPPVIFJX1848-96-39 11:41:008.8[facility] ModemqyFYMVGHHUEQ0117-65-21 11:41:00 Test Item Value Reference Range Interpretation Comments MCH (test code = MCH) 28.1 pg 27.0-31.0 [facility] VyqbswtHPJJZFXSMQ7374-62-95 11:41:0032.9[facility] HermannHEMATOLOGY 2018-01-31 11:41:0015.9[facility] NakhduwVOZGGVQTST5600-38-84 11:41:004.10[facility] CibbutgKTEEGSBEYT5610-85-58 11:41:0034.9[facility] KtggppjUSCFPFXZZS1772-31-94 11:41:0085.2[facility] XxaatamIRSRVLAKMK3156-97-00 11:41:0011.5[facility] RRJJIDMFCW5595-09-16 11:41:85671Suqrowhx TblwjyvVWKNOXSKPZ1348-37-56 11:41:007.7 [facility] LleynekXNDSJAEIYI7030-32-75 11:41:00 Test Item Value Reference Range Interpretation Comments ACT (TEG) Rapid (test code = ACT (TEG) 105 s 86-118 Rapid) [facility] HospitalCyepbqxEUYMIJZTCT3705-03-53 11:41:00 Test Item Value Reference Range Interpretation Comments Angle Rapid (test code = Angle 75 degrees 64-80 Rapid) [facility] HospitalRiuhjbcGVBTYMVYGH4020-57-11 11:41:00 Test Item Value Reference Range Interpretation Comments K-time Rapid (test code = K-time 1.2 min 0.6-2.3 Rapid) [facility] NezpgukGITXUWCVAH4925-04-25 11:41:00 Test Item Value Reference Range Interpretation Comments R-time Rapid (test code = R-time 0.6 min 0.4-0.7 Rapid) [facility] KcundttBRJYOPWWZL4337-37-02 11:41:00 Test Item Value Reference Range Interpretation Comments Split Point Rapid (test code = Split 0.4 min Point Rapid) [facility] HospitalPwomhjxILDFJQWUEX3709-48-37 11:41:001.3[facility] HermannHEMATOLOGY 2018-01-31 11:41:008.2[facility] CrcapydKUAFFXYSME4264-52-38 11:41:00 Test Item Value Reference Range Interpretation Comments Max Amplitude Rapid (test code = Max 62 mm 52-71 Amplitude Rapid) [facility] OedlqnuKECRVWCYVA3281-36-30 11:41:00Negative *NA*(01/31/18 6:41 AM) [facility]UR[facility] MVYOE5501-66-01 11:41:000.2[facility]annURINE AND LPGDZ0764-35-72 11:41:00Trace *ABN*(01/31/18 6:41 AM)[facility] AND CAZSB9796-04-22 11:41:00Negative *NA*(01/31/18 6:41 AM)[facility] BEAXC8527-12-91 11:41:00Negative (01/31/18 6:41 AM)[facility] AND VKMDX2852-44-57 11:41:00 Test Item Value Reference Range Interpretation Comments UA pH (test code = UA pH) 7.0 1 5.0-8.0 [facility] AND TXLGV5185-61-11 11:41:00Negative *NA*(01/31/18 6:41 AM)[facility] NTSBI4861-91-48 11:41:00Negative (01/31/18 6:41 AM) [facility] BIYBV7798-36-07 11:41:00Trace *ABN*(01/31/18 6:41 AM) [facility] ABPCR4436-37-45 11:41:00Negative (01/31/18 6:41 AM) [facility] GFERC4117-57-62 11:41:00 Test Item Value Reference Range Interpretation Comments UA Spec Grav (test code = UA Spec 1.010 1 Grav) [facility] BSZLN5431-19-35 11:41:00Yellow *NA*(01/31/18 6:41 AM) [facility] FNFEM9564-00-13 11:41:00Clear (01/31/18 6:41 AM) [facility]annCHEM YXEYZ7147-12-04 11:41:16685Qggpsuxo HermannCHEM PANEL 2018-01-31 11:41:008.3[facility] HermannCHEM PJUUO2349-09-27 11:41:68706Tftluydp HermannCHEM KQQVV4740-41-48 11:41:0027[facility] HermannCHEM YQPVO2614-64-63 11:41:0095[facility] HermannCHEM AIZEE1590-38-38 11:41:004.2[facility] HermannCHEM IMFOV4512-42-50 11:41:000.65[facility] HermannCHEM CVPOQ9833-18-61 11:41:0011 [facility]annCHEM BBRXK0198-81-35 11:41:80105Xzrwbbfl HermannCHEM PANEL 2018-01-31 11:41:008.2[facility] HermannCHEM ABOZW0032-97-73 11:41:000.8[facility] HermannDRUG HWURGB4947-90-88 11:41:00See Note (01/31/18 6:41 AM)[facility] DRUG PWAHUX8331-20-60 11:41:00Negative *NA*(01/31/18 6:41 AM)[facility] [place] DRUG TKTGIY1963-65-36 11:41:00Negative *NA*(01/31/18 6:41 AM)[facility] [place] DRUG VMYLNQ5843-62-74 11:41:00Negative *NA*(01/31/18 6:41 AM)[facility] DRUG BWHWLY7179-62-66 11:41:00Negative *NA*(01/31/18 6:41 AM)[facility] [place] DRUG RVMYEX1323-63-94 11:41:00Negative *NA*(01/31/18 6:41 AM)[facility] DRUG OQVEPN7549-65-14 11:41:00Negative *NA*(01/31/18 6:41 AM)[facility] DRUG KYLGTZ6931-95-35 11:41:00Negative *NA*(01/31/18 6:41 AM)[facility] SUIMIPRQUOURJ3487-41-68 11:41:00Negative *NA*(01/31/18 6:41 AM)[facility] [place] JGLSXQADOK7948-62-26 11:41:000.7[facility] ObzbxglEBEMTKVJBO6730-77-78 11:41:002.9 [facility] BhgekifQEBCQMVMHS4058-60-97 11:41:000.2[facility]annHEMATOLOGY 2018-01-31 11:41:0055.3[facility] IpnodrtWDFBQVOUUM1822-61-84 11:41:0033.5[facility] FbjcpkxABIVHQNQJI2992-34-64 11:41:008.5[facility] TuscsmyHBCPXOMAHN8918-38-70 11:41:000.4[facility] TfriqxwAICZVXQMSB2895-24-77 11:41:002.3[facility] ZDSOZJYHXX7654-99-93 11:41:004.9[facility] IoyykzpPUYYMUUYMT0268-54-32 11:41:008.8 [facility] QhcpklvLUJFYLUJCO2637-11-34 11:41:00 Test Item Value Reference Range Interpretation Comments MCH (test code = MCH) 28.1 pg 27.0-31.0 [facility] HospitalZwnamalPGLUWFRKAU6063-51-52 11:41:0032.9[facility]annHEMATOLOGY 2018-01-31 11:41:0015.9[facility] IutmywkIIMOTTRINX8271-60-93 11:41:004.10[facility] QpuntmiFOFVAKHOTL4160-02-08 11:41:0034.9[facility] OsdhzvkRXKLSHTYBI3001-89-43 11:41:0085.2[facility] TlxxmzeGPDULOQMRB9827-01-99 11:41:0011.5[facility] [place] YLZRGSFJIB8508-47-80 11:41:85879Ppaosxfu JvvfpscCPQACKVOFF3270-42-77 11:41:007.7 [facility] HospitalXnkiyohDUNANBUDXF0963-21-79 11:41:00 Test Item Value Reference Range Interpretation Comments ACT (TEG) Rapid (test code = ACT (TEG) 105 s 86-118 Rapid) [facility] HospitalAbywpejEVAEJOEZJV0889-25-34 11:41:00 Test Item Value Reference Range Interpretation Comments Angle Rapid (test code = Angle 75 degrees 64-80 Rapid) [facility]landsWmedihwQIDKRHTDBZ8679-70-57 11:41:00 Test Item Value Reference Range Interpretation Comments K-time Rapid (test code = K-time 1.2 min 0.6-2.3 Rapid) [facility] HospitalMrdgazkJEAHOSZJHW2309-56-07 11:41:00 Test Item Value Reference Range Interpretation Comments R-time Rapid (test code = R-time 0.6 min 0.4-0.7 Rapid) [facility] HospitalIsqegzeCTEPTMVGDD6078-63-78 11:41:00 Test Item Value Reference Range Interpretation Comments Split Point Rapid (test code = Split 0.4 min Point Rapid) [facility] HospitalKemihdoZTRTSUYTEA8387-01-14 11:41:001.3[facility]annHEMATOLOGY 2018-01-31 11:41:008.2[facility] AqhvvdbPMPRSOPQLM3705-02-83 11:41:00 Test Item Value Reference Range Interpretation Comments Max Amplitude Rapid (test code = Max 62 mm 52-71 Amplitude Rapid) [facility] NfsfzelOTOBFOJRFP2558-43-86 11:41:00Negative *NA*(01/31/18 6:41 AM) [facility] VXEHB6501-27-78 11:41:000.2[facility]UR[facility] AND RPIVC6420-61-96 11:41:00Trace *ABN*(01/31/18 6:41 AM)[facility] BLIVF5038-37-04 11:41:00Negative *NA*(01/31/18 6:41 AM)[facility] POSKL9648-51-12 11:41:00Negative (01/31/18 6:41 AM)[facility] DYVQQ3719-35-22 11:41:00 Test Item Value Reference Range Interpretation Comments UA pH (test code = UA pH) 7.0 1 5.0-8.0 [facility] RMSDE8143-02-42 11:41:00Negative *NA*(01/31/18 6:41 AM)[facility] CPVRJ1588-93-70 11:41:00Negative (01/31/18 6:41 AM) [facility] YGRWR1580-64-77 11:41:00Trace *ABN*(01/31/18 6:41 AM) [facility] HGVSY4421-57-72 11:41:00Negative (01/31/18 6:41 AM) [facility] YRVUU5743-45-69 11:41:00 Test Item Value Reference Range Interpretation Comments UA Spec Grav (test code = UA Spec 1.010 1 Grav) [facility] MEAVN7101-76-55 11:41:00Yellow *NA*(01/31/18 6:41 AM) [facility] KFSZY8042-51-82 11:41:00Clear (01/31/18 6:41 AM) [facility] QiifenkUTFSGGGIXN7565-82-25 11:41:00 Test Item Value Reference Range Interpretation Comments MCH (test code = MCH) 28.1 pg 27.0-31.0 [facility] MboslzmYMKTFURAGN6891-75-09 11:41:0032.9[facility] HermannHEMATOLOGY 2018-01-31 11:41:0015.9[facility] ZvqcjesLVEHEWETXF3149-46-70 11:41:004.10[facility] MmhtritBHIVNLRGPH7422-82-27 11:41:0034.9[facility] GycctjlBPNLHIIVSS4399-80-59 11:41:0085.2[facility] WkhucwuTYJNSEQDEQ8272-46-42 11:41:0011.5[facility] ABRKJQEGST3404-53-14 11:41:04166Xwjspqae RqilellEWYGTRGJVR1424-70-51 11:41:007.7 [facility] EsisgwaUMGZIVRPZF5695-74-57 11:41:00 Test Item Value Reference Range Interpretation Comments ACT (TEG) Rapid (test code = ACT (TEG) 105 s 86-118 Rapid) [facility] HospitalZcbdkdrUPPDBJKDQI9277-28-47 11:41:00 Test Item Value Reference Range Interpretation Comments Angle Rapid (test code = Angle 75 degrees 64-80 Rapid) [facility] HospitalSplyqyaNAUTMSJKWN9868-66-40 11:41:00 Test Item Value Reference Range Interpretation Comments K-time Rapid (test code = K-time 1.2 min 0.6-2.3 Rapid) [facility] HospitalEucebfgFUOPWETMEH7991-79-68 11:41:00 Test Item Value Reference Range Interpretation Comments R-time Rapid (test code = R-time 0.6 min 0.4-0.7 Rapid) [facility] HospitalNmzevyoCDTUNXNJSQ6851-61-56 11:41:00 Test Item Value Reference Range Interpretation Comments Split Point Rapid (test code = Split 0.4 min Point Rapid) [facility] HospitalJejqawoVBHJFPPPZN5994-95-34 11:41:001.3[facility]annHEMATOLOGY 2018-01-31 11:41:008.2[facility] PmgeekoHWXZLGTOEB0803-69-93 11:41:00 Test Item Value Reference Range Interpretation Comments Max Amplitude Rapid (test code = Max 62 mm 52-71 Amplitude Rapid) [facility] VszgezrUJGKQTACPG7838-07-13 11:41:00Negative *NA*(01/31/18 6:41 AM) [facility] QAXWP3404-42-98 11:41:000.2[facility] MDQSS2896-53-71 11:41:00Trace *ABN*(01/31/18 6:41 AM)[facility] TVVAK1396-72-50 11:41:00Negative *NA*(01/31/18 6:41 AM)[facility] SCYMP7659-59-51 11:41:00Negative (01/31/18 6:41 AM)[facility] [id number] 11:41:00 Test Item Value Reference Range Interpretation Comments UA pH (test code = UA pH) 7.0 1 5.0-8.0 [facility] [id number] 11:41:00Negative *NA*(01/31/18 6:41 AM)[facility] TFTCN4978-31-85 11:41:00Negative (01/31/18 6:41 AM) [facility] NUOTJ0390-44-36 11:41:00Trace *ABN*(01/31/18 6:41 AM) [facility] [id number] 11:41:00Negative (01/31/18 6:41 AM) [facility] KEBUN1114-57-18 11:41:00 Test Item Value Reference Range Interpretation Comments UA Spec Grav (test code = UA Spec 1.010 1 Grav) [facility] [id number] 11:41:00Yellow *NA*(01/31/18 6:41 AM) [facility] [id number] 11:41:00Clear (01/31/18 6:41 AM) [facility]ann[facility] KFXLJ2602-08-56 11:41:91296Smvteoxh HermannCHEM PANEL 2018-01-31 11:41:008.3[facility]annCHEM RBSIX0468-94-16 11:41:73433Bqffmwce HermannCHEM SOKTG4407-05-71 11:41:0027[facility]annCHEM RSVUN7409-63-54 11:41:0095[facility]annCHEM PPBBN4221-84-28 11:41:004.2[facility]annCHEM MMGAU1230-87-71 11:41:000.65[facility]annCHEM ABALQ4211-44-08 11:41:0011 [facility]annCHE[facility] CQYEW8333-27-37 11:41:80325Atnhrxbk HermannCHEM PANEL 2018-01-31 11:41:008.2[facility]annCHEM SCZFS5604-81-16 11:41:000.8[facility]annDRUG JOTVLI5052-08-13 11:41:00See Note (01/31/18 6:41 AM)[facility] ZMDQOR8148-83-12 11:41:00Negative *NA*(01/31/18 6:41 AM)[facility] NKEYKQ1799-46-51 11:41:00Negative *NA*(01/31/18 6:41 AM)[facility] AQRHZX8597-08-38 11:41:00Negative *NA*(01/31/18 6:41 AM)[facility] DQMCHL8196-70-09 11:41:00Negative *NA*(01/31/18 6:41 AM)[facility] [id number] 11:41:00Negative *NA*(01/31/18 6:41 AM)[facility] [id number] 11:41:00Negative *NA*(01/31/18 6:41 AM)[facility] [id number] 11:41:00Negative *NA*(01/31/18 6:41 AM)[facility] ZEGWTVWPAYASN5717-04-93 11:41:00Negative *NA*(01/31/18 6:41 AM)[facility] TJTNADBRIC6533-58-93 11:41:000.7[facility] GcciuxyHILJRPGDDT1020-33-02 11:41:002.9 [facility] QniarihWUABMDTETD0217-45-83 11:41:000.2[facility]annHEMATOLOGY 2018-01-31 11:41:0055.3[facility] WlfzgycEXVKIDUYHA9692-89-35 11:41:0033.5[facility] IriaisdOMFNPIPVYY7218-81-02 11:41:008.5[facility] GeyprxtUSNKGISUDM4346-89-00 11:41:000.4[facility] YfejmlmSQYKDUFOSZ0170-35-17 11:41:002.3[facility] VRBEMJGKNL1847-71-10 11:41:004.9[facility] ZzllhuaKWLJBSVFKR6081-14-16 11:41:008.8 [facility] WwvuxkiPWAPCWGUVU5829-98-06 11:41:00 Test Item Value Reference Range Interpretation Comments MCH (test code = MCH) 28.1 pg 27.0-31.0 [facility] HospitalFeosaydIFZYPYDWHZ4726-33-56 11:41:0032.9[facility]annHEMATOLOGY 2018-01-31 11:41:0015.9[facility] TvotdrwRLBJBAOFRF3695-08-37 11:41:004.10[facility] VqrclvkGBUDQIIMEV3807-72-62 11:41:0034.9[facility] BuwgfefPUFKWWBVYR8936-53-62 11:41:0085.2[facility] UwpmbweTMSFKOLKLL2735-39-56 11:41:0011.5[facility] YRIGUCQSQF3750-89-57 11:41:33220Xxnwdocc PsbrzhwKIUKKCMVXA7443-08-71 11:41:007.7 [facility] HospitalFcvcniaRYFZIMFYWW0629-00-77 11:41:00 Test Item Value Reference Range Interpretation Comments ACT (TEG) Rapid (test code = ACT (TEG) 105 s 86-118 Rapid) [facility]IwldvsmJGELROODHU0720-61-24 11:41:00 Test Item Value Reference Range Interpretation Comments Angle Rapid (test code = Angle 75 degrees 64-80 Rapid) [facility] HospitalLhyzjunNUNNGGVMSY4235-41-49 11:41:00 Test Item Value Reference Range Interpretation Comments K-time Rapid (test code = K-time 1.2 min 0.6-2.3 Rapid) [facility]RxwcvryTWSOORVOJT8949-46-03 11:41:00 Test Item Value Reference Range Interpretation Comments R-time Rapid (test code = R-time 0.6 min 0.4-0.7 Rapid) [facility]SbcbkfkBHXRJLFKVM4468-01-52 11:41:00 Test Item Value Reference Range Interpretation Comments Split Point Rapid (test code = Split 0.4 min Point Rapid) [facility] HospitalJqzeyfzMEXLIKQTRL7339-40-00 11:41:001.3[facility] 2018-01-31 11:41:008.2[facility] NzccmyqVNDJVIMOPA9067-50-48 11:41:00 Test Item Value Reference Range Interpretation Comments Max Amplitude Rapid (test code = Max 62 mm 52-71 Amplitude Rapid) [facility] RnvudllXOPURNNTWB0385-14-23 11:41:00Negative *NA*(01/31/18 6:41 AM) [facility] BZILF3053-72-01 11:41:000.2[facility] MOHSF9052-60-55 11:41:00Trace *ABN*(01/31/18 6:41 AM)[facility] OWRBY3510-66-32 11:41:00Negative *NA*(01/31/18 6:41 AM)[facility] QIXDJ4833-34-66 11:41:00Negative (01/31/18 6:41 AM)[facility] YMPAH1923-50-79 11:41:00 Test Item Value Reference Range Interpretation Comments UA pH (test code = UA pH) 7.0 1 5.0-8.0 [facility] QAKZL5482-75-26 11:41:00Negative *NA*(01/31/18 6:41 AM)[facility] IAYXP0028-33-08 11:41:00Negative (01/31/18 6:41 AM) [facility] HYNUC1334-61-07 11:41:00Trace *ABN*(01/31/18 6:41 AM) [facility] HSGXV1757-55-15 11:41:00Negative (01/31/18 6:41 AM) [facility] ZAEFT2430-25-68 11:41:00 Test Item Value Reference Range Interpretation Comments UA Spec Grav (test code = UA Spec 1.010 1 Grav) [facility] BJHMB7482-79-63 11:41:00Yellow *NA*(01/31/18 6:41 AM) [facility] KPDRB9132-69-07 11:41:00Clear (01/31/18 6:41 AM) [facility]annCHEM PSKMC4399-97-52 11:41:80283Frkzzhaa HermannCHEM PANEL 2018-01-31 11:41:008.3[facility]annCHE[facility] LBSYB2167-17-84 11:41:69301Zwhjlfnd HermannCHEM SURYI9461-08-58 11:41:0027[facility]annCHE[facility] RZXVO4857-37-27 11:41:0095[facility] ZTQLW9461-52-08 11:41:004.2[facility]annCHE[facility] JBVRF8546-87-67 11:41:000.65[facility]annCHE[facility] VABXD6167-68-63 11:41:0011 [facility]annCHE[facility] ALTNE6363-18-15 11:41:93479Hbiptncu HermannCHEM PANEL 2018-01-31 11:41:008.2[facility]annCHE[facility] HIZVC2287-16-81 11:41:000.8[facility]annDRUG JCMTWZ1941-94-94 11:41:00See Note (01/31/18 6:41 AM)[facility] QZNKMK2673-55-05 11:41:00Negative *NA*(01/31/18 6:41 AM)[facility] DRUG DZINSV5726-21-62 11:41:00Negative *NA*(01/31/18 6:41 AM)[facility] DRUG KNJOTY5921-68-13 11:41:00Negative *NA*(01/31/18 6:41 AM)[facility] DRUG VKJAOS2257-19-54 11:41:00Negative *NA*(01/31/18 6:41 AM)[facility] DRUG TRWESG4157-12-01 11:41:00Negative *NA*(01/31/18 6:41 AM)[facility] DRUG XXRMGV9030-60-46 11:41:00Negative *NA*(01/31/18 6:41 AM)[facility] DRUG IODNIR7522-84-63 11:41:00Negative *NA*(01/31/18 6:41 AM)[facility] ATCPQMHBCZYIC4980-01-93 11:41:00Negative *NA*(01/31/18 6:41 AM)[facility] QDVJORBVPM7673-90-23 11:41:000.7[facility] KswbyggLLRWGOLAMS2391-48-47 11:41:002.9 [facility] BnfprpjJECGYFLSXZ3711-33-77 11:41:000.2[facility]annHEMATOLOGY 2018-01-31 11:41:0055.3[facility] ZlphxikLHZDXGHSEG6421-43-45 11:41:0033.5[facility] TrvobjaNTAOQUUNFZ9537-08-12 11:41:008.5[facility] DpdxazaLOPCRCPLYF2963-56-96 11:41:000.4[facility] AzgrecyKXTIYDMDJM7733-02-23 11:41:002.3[facility] CCHOTTOKOB0271-13-70 11:41:004.9[facility] EwmkgbsTLRTDNDOLV0827-40-35 11:41:008.8 [facility]annCHE[facility] HTUIM2437-36-75 11:15:68921Ywlcsjdl HermannCHEM PANEL 2017-06-28 11:15:003.5[facility]annCHEM FFYAL6085-46-60 11:15:00 Test Item Value Reference Range Interpretation Comments A/G Ratio (test code = A/G Ratio) 1.1 1 0.7-1.6 [facility] TSTEA1978-30-46 11:15:00 Test Item Value Reference Range Interpretation Comments B/C Ratio (test code = B/C Ratio) 13 1 6-25 [facility]CHE[facility] DPAUH9631-79-55 11:15:0013.6[facility]annCHEM PANEL 2017-06-28 11:15:007.2[facility]annCHEM PBVWS8470-02-27 11:15:0056[facility]annCHEM OYDXE6067-04-68 11:15:000.2[facility]annCHEM WTTWT8201-37-89 11:15:003.6[facility]annCHEM VNPTT6609-95-30 11:15:48917Hyckgecl HermannCHEM HNQQB8795-93-66 11:15:008.9[facility]annCHEM NWOVL7127-79-96 11:15:14708 [facility]annCHE[facility] MTEQM1965-37-31 11:15:71588Bzdihdvn HermannCHEM PANEL 2017-06-28 11:15:0024[facility]annCHEM KUCXX3336-98-73 11:15:0020[facility]annCHEM UVPHZ8694-01-15 11:15:0024[facility]annCHEM YZDSN7472-29-45 11:15:003.7[facility]annCHEM ACNKT7852-31-09 11:15:000.63[facility]annCHEM OSLVG1071-88-68 11:15:008[facility]annCHEM YSMHE2112-58-05 11:15:96998 [facility] LnxjhrhPKJQSTBLSWCSH1039-73-73 11:15:00Negative *NA*(06/28/17 6:15 AM) [facility] PiijudqPQTZUIAATB0222-98-20 11:15:0015.4[facility]annHEMATOLOGY 2017-06-28 11:15:007.7[facility] CgopxtfALGQQNAPER7219-61-80 11:15:86557Pttmzhhy ErerztnJOZISQNHQH4517-40-79 11:15:0087.1[facility] YhlsukqEMXXLPLQEL2763-88-13 11:15:0037.9[facility] MtkuvxvOBLARAVRBW1220-43-33 11:15:0033.3[facility] DLLUAULWAB5460-86-21 11:15:00 Test Item Value Reference Range Interpretation Comments MCH (test code = MCH) 29.0 pg 27.0-31.0 [facility] WkfocvsAKJYAEJDBU3343-21-91 11:15:0012.6[facility]annHEMATOLOGY 2017-06-28 11:15:004.35[facility] ZnkhajiYGGJIPRDNR9620-89-46 11:15:0010.7[facility] GlecyxrHESJGAYYMY8492-95-58 11:15:000.8[facility] LhmqxzjFICWPHYVFE6085-16-25 11:15:000.2[facility] YexvbntAMLTCCQWBB4626-45-81 11:15:0072.1[facility] ZVIZXEZHFI5916-71-63 11:15:007.7[facility] GnkecafMPQIEQPPNX2383-59-87 11:15:002.0 [facility] VtdjayxIFQYBVQNUR4619-85-62 11:15:000.4[facility]annHEMATOLOGY 2017-06-28 11:15:007.2[facility] CdguajuGKYHIBJIBR8967-92-35 11:15:001.7[facility] DfqfgyrEAOQITSWPV0202-93-57 11:15:0018.6[facility] STOOL 2017-06-28 11:15:00Colorless *NA*(06/28/17 6:15 AM)[facility] TPLIB0506-06-54 11:15:00 Test Item Value Reference Range Interpretation Comments UA Spec Grav (test code = UA Spec 1.002 1 Grav) [facility] KGGOB6808-72-09 11:15:00Clear (06/28/17 6:15 AM) [facility] WDBAJ9521-89-39 11:15:00 Test Item Value Reference Range Interpretation Comments UA pH (test code = UA pH) 6.0 1 5.0-8.0 [facility] LQCFM9831-43-34 11:15:00Moderate *ABN*(06/28/17 6:15 AM)[facility] TJBXN5314-72-83 11:15:00Negative *NA*(06/28/17 6:15 AM)[facility] VMQGU6753-14-68 11:15:00Negative (06/28/17 6:15 AM) [facility] OXVYT7919-42-53 11:15:001[facility] HATOE2751-36-46 11:15:00Negative (06/28/17 6:15 AM)[facility] GXBJM5018-98-71 11:15:002[facility] NJVJM3265-99-32 11:15:001 [facility]annCHEM FTQHG3933-22-07 11:15:63098Kyipnxph HermannCHEM PANEL 2017-06-28 11:15:003.5[facility]annCHEM BJBNZ7400-30-92 11:15:00 Test Item Value Reference Range Interpretation Comments A/G Ratio (test code = A/G Ratio) 1.1 1 0.7-1.6 [facility]annCHE[facility] BVBON3852-19-56 11:15:00 Test Item Value Reference Range Interpretation Comments B/C Ratio (test code = B/C Ratio) 13 1 6-25 [facility]CHE[facility] VJKKH8955-16-76 11:15:0013.6[facility]annCHEM PANEL 2017-06-28 11:15:007.2[facility]annCHE[facility] ZKOZS6074-11-88 11:15:0056[facility]annCHEM WTTCB0509-17-74 11:15:000.2[facility]annCHEM YDHVA1105-38-53 11:15:003.6[facility]annCHEM RGABU3119-43-25 11:15:05957Cmuknemx HermannCHEM TPYXZ0058-78-21 11:15:008.9[facility]annCHEM AIWCJ6930-48-82 11:15:05878 [facility]annCHE[facility] ZQKPQ7728-69-12 11:15:40650Nwbjpczg HermannCHEM PANEL 2017-06-28 11:15:0024[facility]annCHEM EOTMH1598-71-51 11:15:0020[facility]annCHEM VKQED6574-56-76 11:15:0024[facility]annCHEM XZZNI7392-11-14 11:15:003.7[facility]annCHEM TPKJM8098-26-65 11:15:000.63[facility]annCHEM UXMGN1272-84-93 11:15:008[facility]annCHEM QOHAJ8887-26-94 11:15:91045 [facility] XazyuvmQKDBGLIXJVXSH5778-57-03 11:15:00Negative *NA*(06/28/17 6:15 AM) [facility] PbiqodvCGEJGNHKWO4616-13-09 11:15:0015.4[facility] HermannHEMATOLOGY 2017-06-28 11:15:007.7[facility] MpoleavBKCBBDMPBX4260-10-35 11:15:15917Ltpbhazb GsywvtfTYOXRPWBMH8621-61-88 11:15:0087.1[facility] EfstqizPOQABZKEEH2251-23-91 11:15:0037.9[facility] XkoxkeyBPQPVOIVEP6237-66-60 11:15:0033.3[facility] UQDRSVJZTO1154-79-40 11:15:00 Test Item Value Reference Range Interpretation Comments MCH (test code = MCH) 29.0 pg 27.0-31.0 [facility] BwzdlwhJKVUGZGIME6580-08-37 11:15:0012.6[facility]annHEMATOLOGY 2017-06-28 11:15:004.35[facility] RllxrhkRPQOFSPBRL8774-26-84 11:15:0010.7[facility] CjnxpevBKTFGBOLCX2820-90-02 11:15:000.8[facility] MgczktoQKITJVNBCD1954-83-56 11:15:000.2[facility] XtguxhuUEOJVRSZWT8684-96-68 11:15:0072.1[facility] PTRRZOCXIE9374-38-04 11:15:007.7[facility] BbmxztdWDLZLEFZAW7647-84-70 11:15:002.0 [facility] RrqyvvhTYYDNXCZYB2798-83-64 11:15:000.4[facility]annHEMATOLOGY 2017-06-28 11:15:007.2[facility] KlmqvywFSBOTABQVI2795-98-93 11:15:001.7[facility] LmznlhdAKFAYNGTKR3961-01-17 11:15:0018.6[facility] STOOL 2017-06-28 11:15:00Colorless *NA*(06/28/17 6:15 AM)[facility] FVMVM5846-52-83 11:15:00 Test Item Value Reference Range Interpretation Comments UA Spec Grav (test code = UA Spec 1.002 1 Grav) [facility] JTYLS5310-74-90 11:15:00Clear (06/28/17 6:15 AM) [facility] RQPPV6129-57-98 11:15:00 Test Item Value Reference Range Interpretation Comments UA pH (test code = UA pH) 6.0 1 5.0-8.0 [facility] TWANF9248-28-63 11:15:00Moderate *ABN*(06/28/17 6:15 AM)[facility] UTWSD6429-56-87 11:15:00Negative *NA*(06/28/17 6:15 AM)[facility] MFXVC1701-43-66 11:15:00Negative (06/28/17 6:15 AM) [facility] SFTZB8708-98-95 11:15:001[facility] NMFXT8618-86-38 11:15:00Negative (06/28/17 6:15 AM)[facility] NLXEO7504-21-81 11:15:002[facility] KEQZW3621-06-42 11:15:001 [facility]annCHEM VGIJF2656-75-03 11:15:58961Cxnoxzap HermannCHEM PANEL 2017-06-28 11:15:003.5[facility] HermannCHEM KQFDT0104-13-07 11:15:00 Test Item Value Reference Range Interpretation Comments A/G Ratio (test code = A/G Ratio) 1.1 1 0.7-1.6 [facility]CHE[facility] KRBLR1538-23-05 11:15:00 Test Item Value Reference Range Interpretation Comments B/C Ratio (test code = B/C Ratio) 13 1 6-25 [facility]annCHE[facility] RYEEJ8007-35-43 11:15:0013.6[facility]annCHEM PANEL 2017-06-28 11:15:007.2[facility]annCHEM LFSBI4777-57-03 11:15:0056[facility]annCHEM EAXOC2908-51-09 11:15:000.2[facility]annCHEM JDLCF4767-96-73 11:15:003.6[facility]annCHEM OLQXI2128-34-52 11:15:79448Qepwphmc HermannCHEM QAEPY3208-20-38 11:15:008.9[facility]annCHEM TSTGR8940-04-62 11:15:51984 [facility]annCHEM NWVKO9718-87-05 11:15:57899Krbshndp HermannCHEM PANEL 2017-06-28 11:15:0024[facility]annCHEM LNZUV9202-80-82 11:15:0020[facility]annCHEM VFIGL6979-29-41 11:15:0024[facility]annCHEM WPWTD1892-23-15 11:15:003.7[facility]annCHEM RFVBH2460-70-26 11:15:000.63[facility]annCHEM OBOYF0788-32-85 11:15:008[facility]annCHEM UMALH3868-80-28 11:15:77773 [facility] FrtqzzjQXXSGOFEGDCPW8465-58-93 11:15:00Negative *NA*(06/28/17 6:15 AM) [facility] GktpdlvHLEWBQVFZY1123-74-97 11:15:0015.4[facility]annHEMATOLOGY 2017-06-28 11:15:007.7[facility] XxpfvppLESSLQNTFN8885-74-01 11:15:28138Dakhrwtr QnrqarnVTAINBSFDJ0309-14-66 11:15:0087.1[facility] SccrwsuQVBHUYPFHS4725-78-89 11:15:0037.9[facility] JnkxbrxERJOCRBZLN9751-69-33 11:15:0033.3[facility] ODPUUWHYTR4214-47-05 11:15:00 Test Item Value Reference Range Interpretation Comments MCH (test code = MCH) 29.0 pg 27.0-31.0 [facility] PfqhlozXPAINYFVJX3347-88-17 11:15:0012.6[facility]annHEMATOLOGY 2017-06-28 11:15:004.35[facility] OjzxcdcCOLCEDNVHN5417-97-33 11:15:0010.7[facility] BihwtsaRBHQXRGYBS5719-51-72 11:15:000.8[facility] JbtxatxMZNSVRHBXF2930-93-55 11:15:000.2[facility] YmimfreMYMZIPACMI0441-79-37 11:15:0072.1[facility] GLVZPJQOWG1790-65-74 11:15:007.7[facility] KyaxxerWYSQABHKVN6373-97-89 11:15:002.0 [facility] HatfmvxRZZIXZJOBF2895-43-57 11:15:000.4[facility]annHEMATOLOGY 2017-06-28 11:15:007.2[facility] UshdkjySCKWDNWFSS8638-77-19 11:15:001.7[facility] ZhglocrGYSDKIRUQC9216-73-36 11:15:0018.6[facility] STOOL 2017-06-28 11:15:00Colorless *NA*(06/28/17 6:15 AM)[facility] KKFFY9182-44-32 11:15:00 Test Item Value Reference Range Interpretation Comments UA Spec Grav (test code = UA Spec 1.002 1 Grav) [facility] EYBHI0529-78-23 11:15:00Clear (06/28/17 6:15 AM) [facility] RABLE0817-10-47 11:15:00 Test Item Value Reference Range Interpretation Comments UA pH (test code = UA pH) 6.0 1 5.0-8.0 [facility] KMETV3873-73-74 11:15:00Moderate *ABN*(06/28/17 6:15 AM)[facility] YDORU6400-77-70 11:15:00Negative *NA*(06/28/17 6:15 AM)[facility] ZUQEU0051-25-93 11:15:00Negative (06/28/17 6:15 AM) [facility] IFCSO7624-82-60 11:15:001[facility] LHFDB9064-10-17 11:15:00Negative (06/28/17 6:15 AM)[facility] YDGXY2426-48-25 11:15:002[facility] NWLJV6834-02-15 11:15:001 [facility]annCHEM BPHIT2521-42-36 11:15:94715Gwskaipd HermannCHEM PANEL 2017-06-28 11:15:003.5[facility]annCHEM SOJKV5679-51-90 11:15:00 Test Item Value Reference Range Interpretation Comments A/G Ratio (test code = A/G Ratio) 1.1 1 0.7-1.6 [facility]annCHE[facility] OPWTW4753-33-57 11:15:00 Test Item Value Reference Range Interpretation Comments B/C Ratio (test code = B/C Ratio) 13 1 6-25 [facility]annCHE[facility] XZZYI7956-61-81 11:15:0013.6[facility]annCHEM PANEL 2017-06-28 11:15:007.2[facility]annCHEM PZSPN8454-10-47 11:15:0056[facility]annCHEM LAXFH9796-41-00 11:15:000.2[facility]annCHEM EUZVP6153-90-18 11:15:003.6[facility]annCHEM JNPKY3975-55-21 11:15:91800Evzgpctp HermannCHEM AWNZV4789-28-91 11:15:008.9[facility]annCHEM QIODW2864-67-24 11:15:53289 [facility]annCHEM WHQAE1289-19-22 11:15:59942Dulnjcpo HermannCHEM PANEL 2017-06-28 11:15:0024[facility]annCHEM IOMLF7377-91-67 11:15:0020[facility]annCHEM PETBP4535-27-72 11:15:0024[facility]annCHEM XBXXP6167-66-32 11:15:003.7[facility]annCHEM KKBZE9357-42-28 11:15:000.63[facility]annCHEM IGRJP1031-70-64 11:15:008[facility]annCHEM OCVOG3286-66-75 11:15:16682 [facility] RryuwwrJIGWNYKLLTYEP9632-14-61 11:15:00Negative *NA*(06/28/17 6:15 AM) [facility] RnqrxmoWHQONAIDIM9577-19-06 11:15:0015.4[facility]annHEMATOLOGY 2017-06-28 11:15:007.7[facility] AnqwjruPXYAQJSEAQ2774-77-94 11:15:86802Pdwwkfmq IzpormrUDBWEHNJXF7927-11-40 11:15:0087.1[facility] ZvdlgbnOTIMQJJPUM5520-33-20 11:15:0037.9[facility] UxopgcjOJYOJXZXDR4669-58-50 11:15:0033.3[facility] IMBBZGCVZP3385-32-25 11:15:00 Test Item Value Reference Range Interpretation Comments MCH (test code = MCH) 29.0 pg 27.0-31.0 [facility] RhvaxqiIJNUXIMUZS8339-74-70 11:15:0012.6[facility]annHEMATOLOGY 2017-06-28 11:15:004.35[facility] TamkzgrXGDFBTNJPH8095-46-03 11:15:0010.7[facility] KelqfalMOLYLOBLXV6165-05-84 11:15:000.8[facility] XnqhdztIFWZAHOIPW8546-21-45 11:15:000.2[facility] VlznrksOTRLXFWDWT0216-44-81 11:15:0072.1[facility] FFYKFVKFUH8808-89-86 11:15:007.7[facility] DqdnhtxYFMITBSVVT7856-93-47 11:15:002.0 [facility] NrbkzpnKHDPEJXFJC4503-17-77 11:15:000.4[facility]annHEMATOLOGY 2017-06-28 11:15:007.2[facility] EzmylvdVAQRDGONDA1431-32-91 11:15:001.7[facility] NrrxxfoBHRBWJMVCD2940-89-97 11:15:0018.6[facility] ST[facility]OL 2017-06-28 11:15:00Colorless *NA*(06/28/17 6:15 AM)[facility] FGTCD2133-44-09 11:15:00 Test Item Value Reference Range Interpretation Comments UA Spec Grav (test code = UA Spec 1.002 1 Grav) [facility] OFGYK6709-02-13 11:15:00Clear (06/28/17 6:15 AM) [facility] LBWXJ8821-81-16 11:15:00 Test Item Value Reference Range Interpretation Comments UA pH (test code = UA pH) 6.0 1 5.0-8.0 [facility] XIDTO0921-52-37 11:15:00Moderate *ABN*(06/28/17 6:15 AM)[facility] PUMSR9845-41-63 11:15:00Negative *NA*(06/28/17 6:15 AM)[facility] YKSPX5384-55-51 11:15:00Negative (06/28/17 6:15 AM) [facility] BIRQG7465-49-59 11:15:001[facility] TYNME7318-73-19 11:15:00Negative (06/28/17 6:15 AM)[facility] COFNW4639-29-58 11:15:002[facility] EXPIS9668-52-54 11:15:001 [facility]
--- NOTE | 2021-03-01 02:25 | ER ---
Nurse's Notes [facility] Name: Dayami Espinosa Age: 51 yrs Sex: Female : 1970 Arrival Date: 03/01/2021 Time: 00:28 Bed 19 Private MD: Diagnosis: Pain in right hip Presentation: 03/01 00:28 Chief complaint: Patient states: R hip pain. Pt reports pain began when she was walking ss home from [employer], but it had been bothering her a little before that. Coronavirus screen: Client denies travel out of the [place] in the last 14 days. Ebola Screen: Patient denies exposure to infectious person. Patient denies travel to an Ebola-affected area in the 21 days before illness onset. Initial Sepsis Screen: Does the patient meet any 2 criteria? No. Patient's initial sepsis screen is negative. Does the patient have a suspected source of infection? No. Patient's initial sepsis screen is negative. Risk Assessment: Do you want to hurt yourself or someone else? Patient reports no desire to harm self or others. Onset of symptoms was March 01, 2021. 00:28 Method Of Arrival: EMS: [facility] ss 00:28 Acuity: JAZMIN 4 ss Historical: - Allergies: 00:29 Amoxicillin; ss 00:29 Pseudoephedrine; ss - PMHx: 00:29 Anemia; Bipolar disorder; gastritis; Ovarian cyst; ss - PSHx: 00:29 brain surgery; ss - Immunization history:: Client reports having NOT received the Covid vaccine. - Social history:: Smoking status: Patient reports the use of cigarette tobacco products, smokes one pack cigarettes per day. Screenin:00 Abuse screen: Denies threats or abuse. Nutritional screening: No deficits noted. fu Tuberculosis screening: No symptoms or risk factors identified. Fall Risk None identified. Assessment: 03:35 General: Appears uncomfortable, Behavior is calm, cooperative, appropriate for age. fu Pain: Complains of pain in right hip Pain does not radiate. Pain currently is 8 out of 10 on a pain scale. Quality of pain is described as sharp. Neuro: Level of Consciousness is awake, alert, obeys commands, Oriented to person, place, time, situation, [employer] are equal bilaterally Speech is normal, Facial symmetry appears normal. Cardiovascular: Denies chest pain. Respiratory: Respiratory effort is even, Respiratory pattern is regular. Vital Signs: 00:28 BP 114 / 75; Pulse 76; Resp 18; Temp 98.0(TE); Pulse Ox 100% on R/A; Weight 48.08 kg; Height 5 ft. 3 in. (160.02 cm); Pain 10/10; 02:00 BP 101 / 66; Pulse 64; Resp 18; Temp 97.9(O); Pulse Ox 98% on R/A; Pain 8/10; fu 03:00 BP 91 / 49; Pulse 63; Resp 16; Pulse Ox 98% ; fu 04:00 BP 94 / 54; Pulse 60; Resp 16; Pulse Ox 99% ; fu 00:28 Body Mass Index 18.78 (48.08 kg, 160.02 cm) ED Course: 00:28 Patient arrived in ED. 00:29 Triage completed. 00:29 Arm band placed on right wrist. 01:20 XRAY Hip RIGHT 2 view In Process Unspecified. EDMS 02:02 Darrell Bardales PA is PHCP. cp 02:02 Driss Melchor MD is Attending Physician. cp 02:40 Daron Cruz, BENI is Primary Nurse. fu 03:00 Patient has correct armband on for positive identification. Placed in gown. Bed in low fu position. Call light in reach. Pulse ox on. NIBP on. 03:35 No provider procedures requiring assistance completed. fu 03:35 Patient did not have IV access during this emergency room visit. fu Administered Medications: 02:48 Drug: Ketorolac 30 mg Route: IM; Site: right deltoid; fu 04:18 Follow up: Response: Pain is decreased fu Outcome: 02:24 Discharge ordered by . cp 04:38 Discharged to home ambulatory. fu 04:38 Condition: good 04:38 Discharge instructions given to patient, Instructed on discharge instructions, Demonstrated understanding of instructions, follow-up care, Prescriptions given X 1. 04:39 Patient left the ED. fu Signatures: Dispatcher [employer] EDMS Carola Ashton RN RN Darrell Bardales PA PA cp Umadhay, Felix, RN RN fu
--- NOTE | 2021-03-01 02:25 | EDPHYS ---
Physician Documentation [facility] Name: Dayami Espinosa Age: 51 yrs Sex: Female : 1970 Arrival Date: 03/01/2021 Time: 00:28 Bed 19 Private MD: ED Physician Driss Melchor HPI: 03/01 02:15 This 51 yrs old Female presents to ER via EMS with complaints of Hip Pain. cp 02:15 The patient or guardian reports pain. sustained from a fall. The complaints affect the cp right hip. Onset: The symptoms/episode began/occurred yesterday. Associated signs and symptoms: Pertinent negatives: abdominal pain, chest pain, fever, weakness, low back pain. Historical: - Allergies: 00:29 Amoxicillin; ss 00:29 Pseudoephedrine; ss - PMHx: 00:29 Anemia; Bipolar disorder; gastritis; Ovarian cyst; ss - PSHx: 00:29 brain surgery; ss - Immunization history:: Client reports having NOT received the Covid vaccine. - Social history:: Smoking status: Patient reports the use of cigarette tobacco products, smokes one pack cigarettes per day. ROS: 02:20 Eyes: Negative for injury, pain, redness, and discharge. cp 02:20 Constitutional: Negative for body aches, chills, fever, poor PO intake. 02:20 Neck: Negative for stiffness. 02:20 Cardiovascular: Negative for chest pain. 02:20 Respiratory: Negative for cough, shortness of breath, wheezing. 02:20 Abdomen/GI: Negative for abdominal pain, nausea, vomiting, and diarrhea. 02:20 Back: Negative for pain at rest, pain with movement. 02:20 Skin: Negative for rash. 02:20 Neuro: Negative for altered mental status, headache, numbness. 02:20 All other systems are negative. Exam: 02:20 Head/Face: Normocephalic, atraumatic. cp 02:20 Constitutional: The patient appears non-toxic, well developed, well nourished, sleeping in exam room 02:20 Cardiovascular: Rate: normal. 02:20 Respiratory: the patient does not display signs of respiratory distress, Respirations: normal, no use of accessory muscles, no retractions. 02:20 Abdomen/GI: Inspection: abdomen appears normal, Palpation: abdomen is soft and non-tender, in all quadrants. 02:20 Back: pain, is absent, ROM is normal. 02:20 Musculoskeletal/extremity: Extremities: grossly normal except: noted in the right hip: pain, tenderness, There is no evidence of decreased ROM, deformity, ROM: limited active range of motion due to pain, in the right hip. Vital Signs: 00:28 BP 114 / 75; Pulse 76; Resp 18; Temp 98.0(TE); Pulse Ox 100% on R/A; Weight 48.08 kg; ss Height 5 ft. 3 in. (160.02 cm); Pain 10/10; 02:00 BP 101 / 66; Pulse 64; Resp 18; Temp 97.9(O); Pulse Ox 98% on R/A; Pain 8/10; fu 03:00 BP 91 / 49; Pulse 63; Resp 16; Pulse Ox 98% ; fu 04:00 BP 94 / 54; Pulse 60; Resp 16; Pulse Ox 99% ; fu 00:28 Body Mass Index 18.78 (48.08 kg, 160.02 cm) ss MDM: 02:03 Patient medically screened. cp 02:20 Differential diagnosis: hip fracture, intertrochanteric fracture, femoral neck cp fracture, femoral shaft fracture. 02:23 Data reviewed: vital signs, nurses notes, radiologic studies, plain films. Test cp interpretation: by ED physician or midlevel provider: xrays of right hip negative for fracture. Counseling: I had a detailed discussion with the patient and/or guardian regarding: the historical points, exam findings, and any diagnostic results supporting the discharge/admit diagnosis, radiology results, to return to the emergency department if symptoms worsen or persist or if there are any questions or concerns that arise at home. 03/01 00:30 Order name: XRAY Hip RIGHT 2 view ss Administered Medications: 02:48 Drug: Ketorolac 30 mg Route: IM; Site: right deltoid; fu 04:18 Follow up: Response: Pain is decreased fu Disposition: 05:49 Co-signature as Attending Physician, Driss Melchor MD. [email or web address] Disposition Summary: 03/01/21 02:24 Discharge Ordered Location: Home cp Problem: new cp Symptoms: have improved cp Condition: Stable cp Diagnosis - Pain in right hip cp Followup: cp - With: Private Physician - When: 2 - 3 days - Reason: Recheck today's complaints Discharge Instructions: - Discharge Summary Sheet cp - Hip Pain cp Forms: - Medication Reconciliation Form cp - Thank You Letter cp - Antibiotic Education cp - Prescription Opioid Use cp Prescriptions: - Diclofenac Sodium 75 mg Oral Tablet Sustained Release - take 1 tablet by ORAL route 2 times per day; 30 tablet; Refills: 0, Product cp Selection Permitted Signatures: Dispatcher [employer] Carola Devries RN RN ss Page, Corey, PA PA cp Umadhay, Felix, RN RN fu Holmes, Maurice, MD MD [email or web address]
[2021-03-01] MEDS ORDERED: KETOROLAC 30 MG/ML INJ ONE (02:42)
[2021-03-01 04:54] VITALS: TEMP 97.9
[2021-03-01 04:57] VITALS: BP 94/54; O2SAT 99
--- NOTE | 2021-03-01 13:25 | RAD REPORT ---
EXAM DESCRIPTION: RAD - Hip Right 2 View - 03/01/2021 1:20 am CLINICAL HISTORY: PAIN COMPARISON: No comparisons FINDINGS: Mild arthritic changes affect the right hip. No fracture, dislocation or AVN.
== END 2021-03-01 04:39 | disposition home or self-care (01) ==
LOC: ER 00:26
DX: M25.551 Pain in right hip (principal); F17.210 Nicotine dependence, cigarettes, uncomplicated; Z88.1 Allergy status to other antibiotic agents; Z88.8 Allergy status to other drugs, medicaments and biological substances
CPT/HCPCS: 96372; 99284

== ENCOUNTER 2021-03-16 03:19 | Emergency (ER) | payer SELFPAY ==
--- OUTSIDE RECORDS SUMMARY | 2021-03-16 03:28 | XMS REPORT | Continuity of Care Document ---
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 03:54:00 160 cm [facility] [place] [facility] Body weight 2020-09-28 03:54:00 48.081 kg [facility] BMI 2020-09-28 03:54:00 18.78 kg/m2 [facility] Oxygen saturation in 2020-09-28 03:54:00 100 /min [facility] Arterial blood by [facility] Pulse oximetry Branch Systolic blood 2020-09-24 05:34:00 121 mm[Hg] [facility] Diastolic blood 2020-09-24 05:34:00 73 mm[Hg] [facility] Heart rate 2020-09-24 05:34:00 75 /min [facility] Body temperature 2020-09-24 05:34:00 36.94 Nakia [facility] Respiratory rate 2020-09-24 05:34:00 18 /min [facility] Body height 2020-09-24 05:34:00 160 cm [facility] Body weight 2020-09-24 05:34:00 48.081 kg [facility] BMI 2020-09-24 05:34:00 18.78 kg/m2 [facility] Oxygen saturation in 2020-09-24 05:34:00 100 /min [facility] Arterial blood by [facility] Pulse oximetry Branch Systolic blood 2020-09-24 05:34:00 121 mm[Hg] [facility] [place] [facility] Diastolic blood 2020-09-24 05:34:00 73 mm[Hg] [facility] [place] [facility] Heart rate 2020-09-24 05:34:00 75 /min [facility] Body temperature 2020-09-24 05:34:00 36.94 Nakia [facility] Respiratory rate 2020-09-24 05:34:00 18 /min [facility] Body height 2020-09-24 05:34:00 160 cm [facility] Body weight 2020-09-24 05:34:00 48.081 kg [facility] BMI 2020-09-24 05:34:00 18.78 kg/m2 [facility] [place] [facility] Oxygen saturation in 2020-09-24 05:34:00 100 /min [facility] by [place] [facility] Pulse oximetry Branch Systolic blood 2018-11-26 08:35:00 136 mm[Hg] [facility] [place] [facility] Diastolic blood 2018-11-26 08:35:00 61 mm[Hg] [facility] [place] [facility] Heart rate 2018-11-26 08:35:00 84 /min [facility] Body temperature 2018-11-26 08:35:00 36.94 Nakia [facility] Respiratory rate 2018-11-26 08:35:00 18 /min [facility] Body weight 2018-11-26 08:35:00 48.081 kg [facility] BMI 2018-11-26 08:35:00 18.78 kg/m2 [facility] Oxygen saturation in 2018-11-26 08:35:00 99 /min [facility] Arterial blood by [facility] Pulse oximetry Branch Systolic blood 2018-11-26 08:35:00 136 mm[Hg] [facility] [place] [facility] Diastolic blood 2018-11-26 08:35:00 61 mm[Hg] [facility] [place] [facility] Heart rate 2018-11-26 08:35:00 84 /min [facility] Body temperature 2018-11-26 08:35:00 36.94 Nakia [facility] [place] [facility] Respiratory rate 2018-11-26 08:35:00 18 /min [facility] [place] [facility] Body weight 2018-11-26 08:35:00 48.081 kg [facility] [place] [facility] BMI 2018-11-26 08:35:00 18.78 kg/m2 [facility] [place] [facility] Oxygen saturation in 2018-11-26 08:35:00 99 /min [facility] [place] [facility] Pulse oximetry Branch Systolic blood 2018-11-04 06:38:00 119 mm[Hg] [facility] [place] [facility] Diastolic blood 2018-11-04 06:38:00 73 mm[Hg] [facility] [place] [facility] Heart rate 2018-11-04 06:38:00 89 /min [facility] [place] [facility] Body temperature 2018-11-04 06:38:00 36.67 Nakia [facility] [place] [facility] Respiratory rate 2018-11-04 06:38:00 20 /min [facility] [place] [facility] Body height 2018-11-04 06:38:00 160 cm [facility] Body weight 2018-11-04 06:38:00 47.628 kg [facility] BMI 2018-11-04 06:38:00 18.60 kg/m2 [facility] Oxygen saturation in 2018-11-04 06:38:00 100 /min [facility] Arterial blood by [facility] Pulse oximetry Branch Systolic blood 2018-11-04 06:38:00 119 mm[Hg] [facility] [place] [facility] Diastolic blood 2018-11-04 06:38:00 73 mm[Hg] [facility] [place] [facility] Heart rate 2018-11-04 06:38:00 89 /min [facility] [place] [facility] [place] Body temperature 2018-11-04 06:38:00 36.67 Nakia [facility] [place] [facility] Respiratory rate 2018-11-04 06:38:00 20 /min [facility] [place] [facility] Body height 2018-11-04 06:38:00 160 cm [facility] Body weight 2018-11-04 06:38:00 47.628 kg [facility] BMI 2018-11-04 06:38:00 18.60 kg/m2 [facility] Oxygen saturation in 2018-11-04 06:38:00 100 /min [facility] Arterial blood by [facility] Pulse oximetry Branch Temperature Oral (F) 2018-04-14 19:01:00 98.2 F [facility] Systolic (mm Hg) 2018-04-14 16:00:00 Wagner [facility] Diastolic (mm Hg) 2018-04-14 16:00:00 Mem [facility] Respitory Rate 2018-04-14 16:00:00 [facility] Systolic (mm Hg) 2018-04-14 15:00:00 Wagner [facility] Diastolic (mm Hg) 2018-04-14 15:00:00 Mem o[facility] [place] Respitory Rate 2018-04-14 15:00:00 [facility] Systolic (mm Hg) 2018-04-14 14:00:00 Wagner [facility] [place] Diastolic (mm Hg) 2018-04-14 14:00:00 Mem o[facility] [place] Respitory Rate 2018-04-14 14:00:00 [facility] Temperature Oral (F) 2018-04-14 13:35:00 97.2 F [facility] Temperature Oral (F) 2018-04-14 10:00:00 97.6 F [facility] Heart Rate 2018-04-14 03:11:00 [facility] Heart Rate 2018-04-14 01:02:00 [facility] Weight 2018-04-13 19:53:00 [facility] Height 2018-04-13 19:53:00 160.02 cm [facility] BMI Calculated 2018-04-13 19:53:00 [facility] Heart Rate 2018-04-13 19:53:00 [facility] Systolic (mm Hg) 2018-01-31 19:28:00 Wagner rial [facility] Diastolic (mm Hg) 2018-01-31 19:28:00 Mem o[facility] Heart Rate 2018-01-31 19:28:00 [facility] Respitory Rate 2018-01-31 19:28:00 [facility] Weight 2018-01-31 19:28:00 [facility] Temperature Oral (F) 2018-01-31 19:28:00 97.9 F [facility] Systolic (mm Hg) 2018-01-31 16:00:00 Wagner [facility] Diastolic (mm Hg) 2018-01-31 16:00:00 Mem o[facility] Respitory Rate 2018-01-31 16:00:00 Memori [facility] Respitory Rate 2018-01-31 15:07:00 [facility] Systolic (mm Hg) 2018-01-31 15:07:00 Wagner [facility] [place] Diastolic (mm Hg) 2018-01-31 15:07:00 Mem orial [place] Respitory Rate 2018-01-31 14:02:00 Memori al [place] Systolic (mm Hg) 2018-01-31 14:02:00 Wagner rial [place] Diastolic (mm Hg) 2018-01-31 14:02:00 Mem orial [facility] Temperature Oral (F) 2018-01-31 10:46:00 98.6 F [facility] Heart Rate 2018-01-31 10:46:00 [facility] Systolic (mm Hg) 2017-06-28 14:36:00 Wagner rial [place] Diastolic (mm Hg) 2017-06-28 14:36:00 Mem o[facility] Temperature Oral (F) 2017-06-28 14:36:00 98.1 F [facility] Respitory Rate 2017-06-28 14:36:00 Memori al [facility] Heart Rate 2017-06-28 14:36:00 [facility] Respitory Rate 2017-06-28 09:31:00 Memori al [place] Temperature Oral (F) 2017-06-28 09:31:00 97.9 F [facility] Weight 2017-06-28 09:31:00 [facility] Heart Rate 2017-06-28 09:31:00 [facility] Systolic (mm Hg) 2017-06-28 09:31:00 Wagner rial [facility] Diastolic (mm Hg) 2017-06-28 09:31:00 Mem orial [facility] Procedures Procedure Date / Time Performed Performing Clinician [facility] CONSENT/REFUSAL FOR 2021-02-20 05:09:04 Doctor Unassigned, No [facility] [place] [facility] TREATMENT NOTICE OF PRIVACY 2020-12-17 05:49:43 Doctor Unassigned, No [facility] [place] [facility]ACT[facility] Name [facility] CONSENT/REFUSAL FOR 2020-12-17 05:49:22 Doctor Unassigned, No [facility] [place] [facility] TREATMENT CONSENT/REFUSAL FOR 2020-11-07 08:31:45 Doctor Unassigned, No [facility] [place] DI[facility] AND Name Medical Branch TREATMENT NOTICE OF PRIVACY 2020-09-28 05:36:52 Doctor Unassigned, No [facility] [place] [facility] Name [facility] Branch CONSENT/REFUSAL FOR 2020-09-28 05:31:04 Doctor Unassigned, No [facility] [place] [facility] AND Name Medical [facility] TREATMENT XR ANKLE 3+ VW RIGHT 2020-09-24 05:48:05 Umu Barillas [facility] [place] [facility] XR FOOT 3+ VW RIGHT 2018-11-26 08:52:27 Umu Barillas [facility] [place] [facility] NOTICE OF PRIVACY 2018-11-26 08:32:51 Doctor Unassigned, No Univ [facility]ity [facility] PRACTICES Name Medical Branch CONSENT/REFUSAL FOR 2018-11-26 08:31:21 Doctor Unassigned, No [facility] [place] [facility] AND Name Medical Branch TREATMENT EKG-12 LEAD 2018-11-04 07:40:11 Gil, [facility] o [facility] POCT GLUCOSE 2018-11-04 07:33:00 Gil, [facility] (AUTOMATED) Medical Branch CONSENT/REFUSAL FOR 2018-11-04 06:31:07 Doctor Unassigned, No [facility] [place] [facility] TREATMENT Plan of Care Planned Activity Planned Date Details Comments Source Future Scheduled 2019-12-04 INFLUENZA VACCINE (#1) [facility] Test 00:00:00 [code = INFLUENZA Medical Ce nter VACCINE (#1)] Future Scheduled [address] [facility] Test 00:00[facility]00 (procedure) [code = Medical Center 55962497] Future Scheduled [address] [facility] 00[facility]00 [facility] cervix [facility]procedure) [code = 297379921] Future Scheduled [address] [facility] - Test 00:00:00 0-64 YRS (1 of 1 - Medical C enter PPSV23) [code = PNEUMOCOCCAL VACCINE 0-64 YRS (1 of 1 - PPSV23)] Future Scheduled [address] [facility] Test 00[facility]00:00 [facility] breast (procedure) [code = 808258497] Future Scheduled [address] [facility] Test 00:00:00 [facility] colon (procedure) [code = 466849988] Future Scheduled [facility] [code = COLONOSCOPY SCREENING] Future Scheduled SHINGLES [facility]INES (#[facility]) [facility] [code = SHINGLES VACCINES (#1)] Future Scheduled [facility] [code = INFLUENZA VACCINE] Future Scheduled COVID-19 [facility]ACCINE (1) [facility] [code = COVID-19 VACCINE (1)] Future Scheduled [facility] Test malignant neoplasm of cervix (procedure) [code = 483788514] Future Scheduled BREAST CANCER [facility] SCREENING [code = BREAST CANCER SCREENING] Encounters Start End Encounter Admission Attending Care Care Encounter Source Date/Time Date/Time Type Type Clinicians Facility Department ID 2021-03-03 2021-03-03 Emergency [facility] [id number] Univers 02:39:00 03:00:00 Milagros MODI [id number] [facility] [id number] [facility] [id number] [address] 2021-03-03 2021-03-03 [facility] [id number] Univers 02:39:00 03:00:00 MILAGROS strickland [facility] 2021-02-19 2021-02-20 [facility] [id number] Univers 23:23:00 01:46:00 TAHIR strickland [facility] 2021-02-19 2021-02-20 [facility] [id number] Univers 23:23:00 01:46:00 Tahir MODI [id number] ity [facility] [place] [place] [facility] [id number] [facility] [id number] [address] 2021-01-12 2021-01-12 [facility] [id number] Univers 03:24:00 03:55:00 Umu Plascenciaton [id number] ity of [place] 4.2.7.2.686 [facility] [id number] [address] 2021-01-12 2021-01-12 Emergency [facility] [id number] Univers 03:24:00 03:24:00 UMU strickland [facility] 2021-01-11 2021-01-11 [facility] [id number] Univers 19:24:00 20:00:00 Umu Plascenciaton [id number] ity of [place] 4.2.7.2.686 [facility] [id number] [address] 2021-01-11 2021-01-11 Emergency X NARGIS, [facility] ERT [id number] Univers 19:24:00 19:24:00 UMU ity of [facility] 2020-12-17 2020-12-17 Emergency [facility] [id number] Univers 01:00:00 01:40:00 Milagros Plascenciaton [id number] i ty of [place] 4.2.7.2.686 [facility] [id number] [address] 2020-12-17 2020-12-17 Emergency X [facility] ERT [id number] Univers 00:47:00 00:47:00 ity [facility] 2020-11-07 2020-11-07 Emergency [facility] [id number] 03:52:00 06:43:00 Tahir S Mcintosh 350.1.13.10 [place] 4.2.7.2.686 [place] [id number] [facility] 2020-11-07 2020-11-07 Emergency [facility] [id number] Univers 03:52:00 06:43:00 Tahir S Mcintosh [id number] ity of [place] 4.2.7.2.686 [facility] [id number] [address] 2020-11-07 2020-11-07 Emergency X [facility] ERT [id number] Univers 03:31:00 03:31:00 ity [facility] 2020-09-27 2020-09-28 Emergency [facility] [id number] 23:09:00 03:14:00 Tahir S Mcintosh 350.1.13.10 [place] 4.2.7.2.686 [place] [id number] [facility] 2020-09-27 2020-09-28 Emergency [facility] [id number] Univers 23:09:00 03:14:00 Ifeanyili S Mcintosh 350.1.13.10 ity of [place] 4.2.7.2.686 [facility] [id number] [address] 2020-09-27 2020-09-27 Emergency X SHERI [facility] ERT [id number] Univers 23:09:00 23:09:00 TAHIR strickland [facility] 2020-09-24 2020-09-24 Emergency [facility] [id number] 00:36:00 01:37:00 Umu Modi [id number] [place] 4.2.7.2.686 [place] [id number] [facility] 2020-09-24 2020-09-24 Emergency [facility] [id number] [facility] 00:36:00 01:37:00 Umu Modi 350.1.13.10 ity noelle Palacio 4.2.7.2.686 [facility] [id number] [address] 2020-09-24 2020-09-24 Emergency [facility]RT [id number] Univers 00:36:00 00:36:00 UMU strickland [facility] 2018-11-27 2018-11-27 Patient Edilia Gonzalez [id number] 00:00:00 00:00:00 Outreach E New 350.1.13.10 [place] 4.2.7.2.686 [id number] [facility] 2018-11-27 2018-11-27 Patient Edilia Gonzalez [id number] [facility] 00:00:00 00:00:00 Outreach E Shaq 350.1.13.10 i ty of [place] 4.2.7.2.686 [facility] [id number] [facility] [address] [place] 2018-11-26 2018-11-26 Emergency [facility] [id number] 03:43:44 04:30:00 Umu Modi 350.1.13.10 [place] 4.2.7.2.686 [place] [id number] [facility] 2018-11-26 2018-11-26 Emergency [facility] [id number] [facility] 03:43:44 04:30:00 Umu Modi 350.1.13.10 ity of [place] 4.2.7.2.686 [facility] [id number] [place] [address] Branch 2018-11-04 2018-11-04 Emergency Gil, [facility] [id number] 02:27:58 03:11:00 David Modi 350.1.13.10 [place] 4.2.7.2.686 [place] [id number] [facility] 2018-11-04 2018-11-04 Emergency Gil, [facility] [id number] [facility] 02:27:58 03:11:00 David Modi 350.1.13.10 i ty of [place] 4.2.7.2.686 [facility] [id number] [address] 2018-11-04 2018-11-04 Orders Doctor SELVIN [id number] 00:00:00 00:00:00 Only Unassigned, HILTON 350.1.13.10 [place] [facility] 4.2.7.2.686 [id number] [facility] 2018-11-04 2018-11-04 Orders Doctor SELVIN [id number] [facility] 00:00:00 00:00:00 Only Unassigned, HILTON 350.1.13.10 ity of [place] [facility] 4.2.7.2.686 [facility] [id number] [place] [address] Branch 2018-04-17 2018-04-19 Phone nullFlavo [facility] [id number] Memoria 19:55:00 05:59:59 Message r Neurosurger 00 l y [facility] 2018-04-13 2018-04-14 [facility] [id number] Memoria 19:48:00 19:15:00 desi Jo 10 [facility] 2018-01-31 2018-01-31 Emergency [facility] [id number] Memoria 19:12:00 23:03:00 desi Jo 01 [facility] 2018-01-31 2018-01-31 Emergency [facility] [id number] Memoria 10:46:00 18:01:00 desi Jo 03 [facility] 2017-07-02 2017-07-02 Emergency E [facility] MED [id number] 08:16:00 08:16:00 [facility] 2017-06-28 2017-06-28 Emergency [facility] [id number] Memoria 09:28:00 14:45:00 r Tracy 00 l [facility] Results Test Description Test Test Results Result Source Time Comments Comments XR FOOT 3+ VW 2018-11- No acute osseous Univ ersity of RIGHT 25 injury identified. [facility] 09:14:11 Severe osteoarthritis Bra nch of the [...] Comme nts POCT GLU (test code = 0409751464) 111 mg/dL 70-110 H Lab Interpretation (test code = 30949-7) [facility]normal [facility] [id number] 08:06:00 Test Item Value Reference Range Interpretation Comments SCAN RESULT (test code = 3178783) CELIAC DISEASE PROFILE Refer to Celiac AUTOVERIFICATION (QUEST) Disease Panel (test code = 3493425) results. CT, [id number] 19:42:00Only need IV contrast, not POFINAL REPORT [...] Simeonort Verified Date/Time: 09/05/2018 19:42:13 Reading Location: [facility] C013W Consult Reading Room RAD, ABDOMEN/KUB, 1 VIEW AP 2018-09-05 15:30:00Reason for exam:->look for retained video capsuleAddendum BeginsREPORT STATUS:A Addendum:The video capsule is seen projected over the right iliac wing. It could be in the distal ileum versus large bowel. If in exact location isneeded. CT scan will be necessary. End of addendum. Signed: Reza Lira MDReport Verified Date/Time: 09/05/2018 15:30:35 Reading Location: [facility] Radiology Reading RoomAddendum EndsFINAL REPORT TECHNIQUE: Supine radiograph of the abdomen dated 09/05/2018 HISTORY: Evaluate for retained video capsule. COMPARISON: None IMPRESSION:No air-filled, dilated loops of bowel to suggest obstruction. No free intraperitoneal air. No abnormal soft tissue mass. No radiodense foreign body v isualized. Bones are unremarkable. Signed: Reza Lira MDReport Verified Date/Time: 09/05/2018 14:53:33 Reading Location: [facility] Radiology Reading Room GI PATHOGEN PROFILE BY [id number] 10:43:00 Test Item Value Reference Range Interpretation [...] (test Not detected Not detected code = 7490101) ROTAVIRUS A (PCR) (test code = Not detected Not detected 20151209) SAPOVIRUS (I, II, IV, V) BY PCR Not detected Not detected (test code = 3172376) VIBRIO (PARAHAEMOLYTICUS, Not detected Not detected VULNIFICUS) (test code = 7014019) Other viruses, parasites and bacteria not targeted by this PCR panel cannot be excluded; therefore clinical correlation and follow up of serology, culture results, and other molecular studies is required. The results are not intended to be used as the sole means for clinical diagnosis or patient management decisions. This sample was tested at the [facility] Molecular Diagnostics Laboratory using the CurTran Gastrointestinal Panel. It is FDA cleared and has been verified and approved by the [facility] for clinical use. This laboratory is CLIA-certified and College ofAmerican Pathologists (CAP)-accredited to perform high complexity testing.BASIC METABOLIC [id number] 05:42:00 Test Item Value Reference Range Interpretation [...] 0-0 (BEAKER) (test code = 413) C-REACTIVE [id number] 18:59:00 Test Item Value Reference Range Interpretation Comments C-REACTIVE PROTEIN (BEAKER) (test 0.38 mg/dL 0.00-0.50 code = 676) [id number] 05:48:00 Test Item Value Reference Range Interpretation Comments FERRITIN (BEAKER) (test code = 361) 13 ng/mL 5-275 BASIC METABOLIC [id number] 05:27:00 Test Item Value Reference Range Interpretation [...] 0-0 (BEAKER) (test code = 413) RETICULOCYTE [id number] 05:05:00 Test Item Value Reference Range Interpretation Comments RETICULOCYTE COUNT PCT (BEAKER) (test 1.1 % 0.5-1.7 code = 575) SCREEN, [id number] 15:17:00 Test Item Value Reference Range Interpretation Comments TEST URINE (BEAKER) (test Negative code = 583) BASIC METABOLIC [id number] 04:53:00 Test Item Value Reference Range Interpretation [...] 0-0 (BEAKER) (test code = 413) CHEM [id number] 03:57:[facility].0[facility] [id number] 03:57:000.3 [facility] [id number] 03:57:00 Test Item Value Reference Range Interpretation Comments A/G Ratio (test code = A/G Ratio) 1.0 1 0.7-1.6 [facility] [id number] 03:57:000.1[facility] PANEL 2018-04-14 03:57:000.4[facility] [id number] 03:57:0049[facility] [id number] 03:57:0024[facility]ann[facility] [id number] 03:57:006.0[facility]annCHEM OMZAR5638-66-13 03:57:0019[facility]annCHEM RCQAC1604-22-91 03:57:003.0[facility]annCHEM VMMTO2761-76-01 03:57:003.0 [facility] XYOWH1028-09-71 03:57:000.3[facility]annCHEM PANEL 2018-04-14 03:57:00 Test Item Value Reference Range Interpretation Comments A/G Ratio (test code = A/G Ratio) 1.0 1 0.7-1.6 [facility]CHE[facility] VQKEE4649-38-19 03:57:000.1[facility]annCHEM PANEL 2018-04-14 03:57:000.4[facility]annCHEM ALNFV7784-92-88 03:57:0049[facility]annCHEM WRZND9403-96-22 03:57:0024[facility]annCHEM CFHZG7772-94-25 03:57:006.0[facility]annCHEM BUFZU6737-59-23 03:57:0019[facility]annCHEM ELXAT8640-98-19 03:57:003.0[facility]annCHE[facility] FPZTM4466-81-87 03:57:003.0 [facility]CHE[facility] OQHMU6344-95-20 03:57:000.3[facility]annCHEM PANEL 2018-04-14 03:57:00 Test Item Value Reference Range Interpretation Comments A/G Ratio (test code = A/G Ratio) 1.0 1 0.7-1.6 [facility] PBYGZ6789-92-21 03:57:000.1[facility]annCHEM PANEL 2018-04-14 03:57:000.4[facility]annCHEM WDRPK9728-93-98 03:57:0049[facility]annCHE[facility] JFBWF9128-63-50 03:57:0024[facility]annCHE[facility] KWBWY1319-28-94 03:57:006.0[facility]annCHE[facility] NFBIY8315-18-19 03:57:0019[facility]annCHEM OVNSU5215-21-75 03:57:003.0[facility]annCHEM TTEFG8703-46-65 03:57:003.0 [facility] CIJUD4995-48-75 03:57:000.3[facility]annCHEM PANEL 2018-04-14 03:57:00 Test Item Value Reference Range Interpretation Comments A/G Ratio (test code = A/G Ratio) 1.0 1 0.7-1.6 [facility] DRPYK3697-28-08 03:57:000.1[facility]annCHEM PANEL 2018-04-14 03:57:000.4[facility]annCHEM GWDCZ0985-69-17 03:57:0049[facility]annCHE[facility] QAKFS5637-47-37 03:57:0024[facility]annCHEM VENAP8347-82-35 03:57:006.0[facility]annCHE[facility] WMLWC2303-57-74 03:57:0019[facility]annCHE[facility] PEHKU7526-83-41 03:57:003.0[facility]annCHEM ACXEL6268-53-02 21:07:63177 [facility] HermannCHEM BQHMK5363-17-10 21:07:30633Throievi HermannCHEM PANEL 2018-04-13 21:07:0023[facility]annCHEM EDYKW2611-70-99 21:07:000.58[facility]annCHEM HSBOB3120-33-42 21:07:62623Ipcmlwfy HermannCHEM BPZAF9295-76-04 21:07:004.4[facility]annCHEM ROJPH6033-80-09 21:07:008.6[facility]annCHE[facility] CQBXM8134-39-51 21:07:007[facility]annCHE[facility] BGQQG1370-00-41 21:07:39043 [facility] OXPXT4409-49-71 21:07:0013.4[facility]annHEMATOLOGY 2018-04-13 21:07:002.1[facility] HospitalXnenuwgNWSVSUZPCH2828-51-42 21:07:00 Test Item Value Reference Range Interpretation Comments Angle Rapid (test code = Angle 75 degrees 64-80 Rapid) [facility] HospitalQawaccrXBIZPTOBNB0318-84-48 21:07:008.6[facility] 2018-04-13 21:07:00 Test Item Value Reference Range Interpretation Comments Max Amplitude Rapid (test code = Max 63 mm 52-71 Amplitude Rapid) [facility] HospitalFccnigdTIKEYBOPMX5896-52-04 21:07:00 Test Item Value Reference Range Interpretation Comments R-time Rapid (test code = R-time 0.7 min 0.4-0.7 Rapid) [facility] HospitalNmzxgnmKANFFLQRGS4632-19-33 21:07:00 Test Item Value Reference Range Interpretation Comments K-time Rapid (test code = K-time 1.2 min 0.6-2.3 Rapid) [facility] HospitalWuduidhADFRBBNLKV0493-82-23 21:07:00 Test Item Value Reference Range Interpretation Comments ACT (TEG) Rapid (test code = ACT (TEG) 113 s 86-118 Rapid) [facility] HospitalMuuyhfaNUATFXGPRI4448-49-36 21:07:00 Test Item Value Reference Range Interpretation Comments Split Point Rapid (test code = Split 0.6 min Point Rapid) [facility] HospitalEiummzbDFOAJUOMNJ2898-23-04 21:07:00 Test Item Value Reference Range Interpretation Comments PTT (test code = PTT) 30.6 s 22.9-35.8 [facility] SqoqmhuJXMHLGHMJD9985-10-66 21:07:00 Test Item Value Reference Range Interpretation Comments INR (test code = INR) 1.03 1 0.85-1.17 [facility] YwjiifpOPTUKBXMZU6839-85-21 21:07:00 Test Item Value Reference Range Interpretation Comments PT (test code = PT) 13.3 s 12.0-14.7 [facility] QpztdctQNERZGTLOV7761-82-83 21:07:0011.1[facility] HermannHEMATOLOGY 2018-04-13 21:07:0033.7[facility] LsuvsvfINNRFWSWLP8164-86-99 21:07:004.04[facility] BykryliFRSCYTBNKQ9892-47-80 21:07:005.8[facility] RybuweqOHBATPQXSD7962-20-28 21:07:0017.2[facility] JmcuhsrMYWTXFPYZY2847-81-70 21:07:99909Qbrghqne Tracy SJUASXNRHP4890-57-91 21:07:0032.9[facility] MmzyqnbAVBOMJOQXB9004-99-67 21:07:00 83.5[facility] OicigzxETIZUOGBTU8980-45-23 21:07:00 Test Item Value Reference Range Interpretation Comments MCH (test code = MCH) 27.5 pg 27.0-31.0 [facility] RnnremvZKPUWSMBIX4618-01-68 21:07:008.4[facility] HermannHEMATOLOGY 2018-04-13 21:07:0056.3[facility] BhqpdsbCZRFBDDUDN7078-64-51 21:07:0029.4[facility] SyaaovxIOSBIETKKA9884-73-64 21:07:009.6[facility] MsskjitKTTYOXVPVH1238-03-11 21:07:004.0[facility] DckoqurWBORORAGAJ0027-00-24 21:07:000.7[facility] NWGRXHRGFS7338-67-39 21:07:003.3[facility] IjzsjrxACBNDZMIIV5133-76-16 21:07:001.7 [facility] NlkxcqtRKEJPFLFLS5338-28-86 21:07:000.6[facility]annHEMATOLOGY 2018-04-13 21:07:000.2[facility] HermannCHEM UFIYT1669-65-71 21:07:09404Vzvhrjno HermannCHEM IVWRC1505-40-52 21:07:62173Jttckvkb HermannCHEM YAPGE0724-95-56 21:07:0023[facility] HermannCHEM SGCFU8243-52-16 21:07:000.58[facility] HermannCHEM VOUAD6019-65-42 21:07:36243Fhyzjxub HermannCHEM NOWOX1724-15-80 21:07:004.4 [facility]annCHEM CZQMH2173-04-41 21:07:008.6[facility] HermannCHEM PANEL 2018-04-13 21:07:007[facility] HermannCHEM BMYUA2448-77-85 21:07:85312Ybzkyeyd HermannCHEM JYHIH7550-04-60 21:07:0013.4[facility] XrqwhifYWCHMISDOH6302-33-39 21:07:002.1[facility] CenterQlebztgAEOFQGDTPR1844-76-33 21:07:00 Test Item Value Reference Range Interpretation Comments Angle Rapid (test code = Angle 75 degrees 64-80 Rapid) [facility] HospitalPhomisbEQRCVAMTWX0423-74-66 21:07[facility]008.6[facility] 2018-04-13 21:07:00 Test Item Value Reference Range Interpretation Comments Max Amplitude Rapid (test code = Max 63 mm 52-71 Amplitude Rapid) [facility] HospitalPrwraxtITTABTPLTI3502-32-28 21:07:00 Test Item Value Reference Range Interpretation Comments R-time Rapid (test code = R-time 0.7 min 0.4-0.7 Rapid) [facility] HospitalXkhzeteTSISMQFBYZ7018-92-15 21:07:00 Test Item Value Reference Range Interpretation Comments K-time Rapid (test code = K-time 1.2 min 0.6-2.3 Rapid) [facility] HospitalPiagkbcKEXRJXOHDH3617-64-52 21:07:00 Test Item Value Reference Range Interpretation Comments ACT (TEG) Rapid (test code = ACT (TEG) 113 s 86-118 Rapid) [facility] HospitalZzlsnzdJUBYOFYQGY0902-67-40 21:07:00 Test Item Value Reference Range Interpretation Comments Split Point Rapid (test code = Split 0.6 min Point Rapid) [facility] HospitalPfabxjzZUXSWAGZEG0452-73-99 21:07:00 Test Item Value Reference Range Interpretation Comments PTT (test code = PTT) 30.6 s 22.9-35.8 [facility] PqlhhgdZVGGUXLGQL8123-72-90 21:07:00 Test Item Value Reference Range Interpretation Comments INR (test code = INR) 1.03 1 0.85-1.17 [facility] KkfvynmNKYIQNPAVH0946-50-28 21:07:00 Test Item Value Reference Range Interpretation Comments PT (test code = PT) 13.3 s 12.0-14.7 [facility] PaxbfhmIFBCXSYXLG2382-17-56 21:07:0011.1[facility]annHEMATOLOGY 2018-04-13 21:07:0033.7[facility] DxlezmpFQZKUYOKAO7451-59-49 21:07:004.04[facility] LexqekyIANFKIPLMD0104-50-37 21:07:005.8[facility] ZfhxjlsUPFUHPAEFH9346-29-09 21:07:0017.2[facility] EincgnbNKTEDYIUGI2362-62-71 21:07:15507Crqojgsc Sandro WQWWNBMNFG1317-72-32 21:07:0032.9[facility] SnobaxnYLBTIBIWEJ3315-11-18 21:07:00 83.5[facility] HhkgtoyOMBBPALNHT5305-43-81 21:07:00 Test Item Value Reference Range Interpretation Comments MCH (test code = MCH) 27.5 pg 27.0-31.0 [facility] BcoyhvjEPLCZBJCWE2471-22-38 21:07:008.4[facility] HermannHEMATOLOGY 2018-04-13 21:07:0056.3[facility] ZwoowskBRHFPQRLLF0543-56-14 21:07:0029.4[facility] CofyawzACEXXQQKGB8630-89-82 21:07:009.6[facility] GwhfzevTLKXFHFNVD3784-26-51 21:07:004.0[facility] JxdafjkDFHSHNYTXV3917-95-67 21:07:000.7[facility] IVDZAVWOKH4045-25-54 21:07:003.3[facility] KecunepDYISUTYXPQ2110-85-22 21:07:001.7 [facility] DebmfjyWONGUUPDIY3553-05-47 21:07:000.6[facility] HermannHEMATOLOGY 2018-04-13 21:07:000.2[facility] HermannCHEM EPETE2604-08-25 21:07:10765Oxvleacn HermannCHEM BNPTF7110-82-44 21:07:57330Vgqrvdmr HermannCHEM RYVBW0975-09-75 21:07:0023[facility] HermannCHEM MKXQO2867-99-88 21:07:000.58[facility] HermannCHEM QZXBS7983-39-40 21:07:03766Djuizecv HermannCHEM DMAZI5275-46-95 21:07:004.4 [facility] USDWE6316-30-71 21:07:008.6[facility] HermannCHE[facility] PANEL 2018-04-13 21:07:007[facility] HermannCHEM EJNGU2929-42-19 21:07:19106Mcbphqtq HermannCHEM LIYUW1778-11-24 21:07:0013.4[facility] SxqqdopDFYNIETKUJ5358-73-78 21:07:002.1[facility] HospitalZeqifcqUOKAMMBBXK9758-23-34 21:07:00 Test Item Value Reference Range Interpretation Comments Angle Rapid (test code = Angle 75 degrees 64-80 Rapid) [facility] HospitalGklevupOPCRSQGMGO9473-71-29 21:07:008.6[facility] 2018-04-13 21:07:00 Test Item Value Reference Range Interpretation Comments Max Amplitude Rapid (test code = Max 63 mm 52-71 Amplitude Rapid) [facility] HospitalKrrbhlhZSILADAEMT4760-26-46 21:07:00 Test Item Value Reference Range Interpretation Comments R-time Rapid (test code = R-time 0.7 min 0.4-0.7 Rapid) [facility] HospitalMpfqddtAKZEOOVWDO7709-28-96 21:07:00 Test Item Value Reference Range Interpretation Comments K-time Rapid (test code = K-time 1.2 min 0.6-2.3 Rapid) [facility] HospitalFnvhwavZAAEXGYMOP1363-42-29 21:07:00 Test Item Value Reference Range Interpretation Comments ACT (TEG) Rapid (test code = ACT (TEG) 113 s 86-118 Rapid) [facility] HospitalPfszqquZYTBDDUWXL4373-15-48 21:07:00 Test Item Value Reference Range Interpretation Comments Split Point Rapid (test code = Split 0.6 min Point Rapid) [facility] TyquioiHDZNOMEHED8925-40-12 21:07:00 Test Item Value Reference Range Interpretation Comments PTT (test code = PTT) 30.6 s 22.9-35.8 [facility] WooaiowUUKYJLEEZG1822-51-69 21:07:00 Test Item Value Reference Range Interpretation Comments INR (test code = INR) 1.03 1 0.85-1.17 [facility] QdwtpllYTGICSUGZO3934-23-54 21:07:00 Test Item Value Reference Range Interpretation Comments PT (test code = PT) 13.3 s 12.0-14.7 [facility] FmjilglUSEGZEPSDQ5931-16-87 21:07:0011.1[facility] HermannHEMATOLOGY 2018-04-13 21:07:0033.7[facility] SuwrajkLLPOVPKZHZ6548-62-62 21:07:004.04[facility] LivnjjuTGERJYJOOI5031-75-00 21:07:005.8[facility] SasvkglGPYDJQKYPO0118-43-16 21:07:0017.2[facility] CagpqgeALEFGQBFSZ2505-08-04 21:07:65916Cmaarpds Sandro PDHHDEXQNC5027-86-79 21:07:0032.9[facility] TuiebviQRDCHGBNJP1192-19-09 21:07:00 83.5[facility] TkhjqwiFBLZVSJUAJ0422-13-19 21:07:00 Test Item Value Reference Range Interpretation Comments MCH (test code = MCH) 27.5 pg 27.0-31.0 [facility] XgymegaLANLDPRHAE2678-09-18 21:07:008.4[facility] HermannHEMATOLOGY 2018-04-13 21:07:0056.3[facility] QjafrggLYFSLAHRRR9173-29-52 21:07:0029.4[facility] TfkhgvhSULOBBVCOE9290-73-33 21:07:009.6[facility] YpuohnmAPZJFNGLPM8202-34-21 21:07:004.0[facility] ZspwpnoXLBOSBRYSO7862-18-89 21:07:000.7[facility] ANUDFRHZPQ1377-70-83 21:07:003.3[facility] CzgwxsqPSCHXGXOVY4835-79-28 21:07:001.7 [facility] UvadqnsGRFXYBXRUB7598-24-14 21:07:000.6[facility] HermannHEMATOLOGY 2018-04-13 21:07:000.2[facility] VhbihinMOCGLWWSNW8241-10-70 21:07:001.7[facility] HermannCHEM DAWHY1639-40-15 21:07:82923Tdubixhi HermannCHEM TTUSK9456-75-06 21:07:87882Lvqubieo HermannCHEM WDTDC6611-06-72 21:07:0023[facility] HermannCHEM VTRBI5529-16-39 21:07:000.58[facility] HermannCHEM URROM3354-00-63 21:07:46394 [facility]annCHEM QOGQZ3772-00-05 21:07:004.4[facility] HermannCHEM PANEL 2018-04-13 21:07:008.6[facility] HermannCHEM ZLAYQ4740-89-36 21:07:007[facility] HermannCHEM ZYFCF9457-08-86 21:07:33516Uhuquvvz HermannCHEM NGCWL2474-89-33 21:07:0013.4[facility] YvqpketFEAWNMJJWL0307-08-05 21:07:000.6[facility] YAPAJVKBMN7305-85-61 21:07:002.1[facility] IspifmoYBUHHMFRZJ5213-36-18 21:07:00 Test Item Value Reference Range Interpretation Comments Angle Rapid (test code = Angle 75 degrees 64-80 Rapid) [facility] HospitalOasbwpoJOSVMAOUZM1084-68-99 21:07:008.6[facility]annHEMATOLOGY 2018-04-13 21:07:00 Test Item Value Reference Range Interpretation Comments Max Amplitude Rapid (test code = Max 63 mm 52-71 Amplitude Rapid) [facility] HospitalTrwhhilABCQTAYWCN0047-88-59 21:07:00 Test Item Value Reference Range Interpretation Comments R-time Rapid (test code = R-time 0.7 min 0.4-0.7 Rapid) [facility] HospitalVbqhiecFVQWVHGFER0081-71-82 21:07:00 Test Item Value Reference Range Interpretation Comments K-time Rapid (test code = K-time 1.2 min 0.6-2.3 Rapid) [facility]PvncpsoJCUXMLYFNA6356-32-42 21:07:00 Test Item Value Reference Range Interpretation Comments ACT (TEG) Rapid (test code = ACT (TEG) 113 s 86-118 Rapid) [facility] HospitalVhecwbcHFTVOCRJCN7131-38-86 21:07:00 Test Item Value Reference Range Interpretation Comments Split Point Rapid (test code = Split 0.6 min Point Rapid) [facility] HospitalVwwuxdeVBXAAXMLQI4275-97-73 21:07:00 Test Item Value Reference Range Interpretation Comments PTT (test code = PTT) 30.6 s 22.9-35.8 [facility] HospitalPuytylnQJLOWUHAUR8172-97-38 21:07:00 Test Item Value Reference Range Interpretation Comments INR (test code = INR) 1.03 1 0.85-1.17 [facility] HospitalAjtseqkHWMYVKMCEI1645-58-91 21:07:000.2[facility]annHEMATOLOGY 2018-04-13 21:07:00 Test Item Value Reference Range Interpretation Comments PT (test code = PT) 13.3 s 12.0-14.7 [facility] FrckzssPOKVJTQFXA7594-68-31 21:07:0011.1[facility] HermannHEMATOLOGY 2018-04-13 21:07:0033.7[facility] PeawlxpUXMFXKAVRT7853-87-50 21:07:004.04[facility] UmazuphGVLXDNXENR9722-89-46 21:07:005.8[facility] PjtxdsjEGNTSSHQLE1591-27-37 21:07:0017.2[facility] XusgkzjXSGLINSFBU5001-75-74 21:07:16307Txfacyza Sandro OIVSMMPPSO3138-37-39 21:07:0032.9[facility] SgjfcctWWFMKRERRI0729-94-25 21:07:00 83.5[facility] QkipeegOEJMMCJYGD2004-79-26 21:07:00 Test Item Value Reference Range Interpretation Comments MCH (test code = MCH) 27.5 pg 27.0-31.0 [facility] MhqqrgnQGUZICFQLD1360-50-47 21:07:008.4[facility] HermannHEMATOLOGY 2018-04-13 21:07:0056.3[facility] TwfmoowQQAPWCOEAS5604-31-30 21:07:0029.4[facility] ZzoofzgLMPMTLHGSD8446-73-58 21:07:009.6[facility] RynywcbDFFTNTRNFF2947-35-07 21:07:004.0[facility] UwaltfkACGLKCFUNJ9862-80-63 21:07:000.7[facility] HTHXFWUSGH9765-71-01 21:07:003.3[facility]annBLOOD BANK QRCQLIP6796-04-85 11:47:00Negative (01/31/18 6:47 AM)[facility] RKXEGNQ4436-51-90 11:47:00Negative (01/31/18 6:47 AM)[facility]BL[facility] BANK VQFQIDH0722-43-15 11:47:00Negative (01/31/18 6:47 AM)[facility]BL[facility] BANK OEOLGAK4997-88-21 11:47:00Negative (01/31/18 6:47 AM)[facility] HermannCHEM KPMAG8816-57-32 11:41:00 105[facility] HermannCHEM MUKAN7290-10-76 11:41:008.3[facility] HermannCHEM PANEL 2018-01-31 11:41:70739Kbiykxkc HermannCHEM MBSFL2634-64-83 11:41:0027[facility] HermannCHEM WBCOD8633-28-98 11:41:0095[facility] HermannCHEM ADJVV7075-57-55 11:41:004.2[facility] HermannCHEM PEQIP7152-74-20 11:41:000.65[facility] HermannCHEM NMHWL5367-00-90 11:41:0011[facility] HermannCHEM HHBMV3060-53-02 11:41:39444 [facility] HermannCHEM ZXBVT6719-16-92 11:41:008.2[facility] HermannCHEM PANEL 2018-01-31 11:41:000.8[facility] HermannDRUG UDPUCZ4240-30-17 11:41:00See Note (01/31/18 6:41 AM)[facility] HermannDRUG CHMWAF4532-31-64 11:41:00Negative *NA*(01/31/18 6:41 AM)[facility] HermannDRUG IZDHFR9390-65-47 11:41:00Negative *NA*(01/31/18 6:41 AM)[facility] HermannDRUG HMBDYR9277-65-83 11:41:00Negative *NA*(01/31/18 6:41 AM)[facility] HermannDRUG DFTUTD6049-09-11 11:41:00Negative *NA*(01/31/18 6:41 AM)[facility]annDRUG HXXFXK1566-53-24 11:41:00Negative *NA*(01/31/18 6:41 AM)[facility] HermannDRUG WPSTPB6522-08-77 11:41:00Negative *NA*(01/31/18 6:41 AM)[facility] HermannDRUG HGIEII1411-86-21 11:41:00Negative *NA*(01/31/18 6:41 AM)[facility] BbxrkabLHVLPUUALMVUO0805-43-12 11:41:00Negative *NA*(01/31/18 6:41 AM)[facility] EpthkwdBKWZCXEJVY8152-10-41 11:41:000.7[facility] TyhqhajGCYHHIYBYZ6568-86-99 11:41:002.9[facility] AjtqgjrAXHFGTQGKE6776-71-43 11:41:000.2[facility] RghiuvvBFEQHJKWWD4085-85-05 11:41:0055.3[facility] EBRNWKECQA8485-29-25 11:41:0033.5[facility] QzpcbaqTPWXBQAZBU2771-91-56 11:41:00 8.5[facility] KpmotmrNOJPXDYLHU4648-85-15 11:41:000.4[facility] HermannHEMATOLOGY 2018-01-31 11:41:002.3[facility] VnznxlkZDENOSQBIA0927-12-99 11:41:004.9[facility] KjwldboKPMERLYNWD3803-53-09 11:41:008.8[facility] PxuqqqcLGSAXDWKCO4359-30-86 11:41:00 Test Item Value Reference Range Interpretation Comments MCH (test code = MCH) 28.1 pg 27.0-31.0 [facility] HtpfmodVZJKJQMBTF7144-07-74 11:41:0032.9[facility] HermannHEMATOLOGY 2018-01-31 11:41:0015.9[facility] MbzessdYKPEBPXTSG2479-43-02 11:41:004.10[facility] BojrdypEZIBXMTYMR0669-23-79 11:41:0034.9[facility] NjwrzhoSZYDOJJFLV4127-62-73 11:41:0085.2[facility] XjpgoifPFTWZZFREB9744-00-46 11:41:0011.5[facility] OBYURAEUMU6477-99-89 11:41:54210Toquifev UhmfzueODRIOCREVY6448-75-83 11:41:007.7 [facility] VcretkbXAFPTVZGIX8238-43-07 11:41:00 Test Item Value Reference Range Interpretation Comments ACT (TEG) Rapid (test code = ACT (TEG) 105 s 86-118 Rapid) [facility] YvrahtgRLDSEVKVDO8548-42-91 11:41:00 Test Item Value Reference Range Interpretation Comments Angle Rapid (test code = Angle 75 degrees 64-80 Rapid) [facility] ElpcdqiBWUFALUBDS3344-21-14 11:41:00 Test Item Value Reference Range Interpretation Comments K-time Rapid (test code = K-time 1.2 min 0.6-2.3 Rapid) [facility] ExtmxspYKODSBBXMG6975-37-75 11:41:00 Test Item Value Reference Range Interpretation Comments R-time Rapid (test code = R-time 0.6 min 0.4-0.7 Rapid) [facility] UspxdowKABEBVZNGU0798-48-08 11:41:00 Test Item Value Reference Range Interpretation Comments Split Point Rapid (test code = Split 0.4 min Point Rapid) [facility] PwnbifwXMBNVOSVFU5176-49-78 11:41:001.3[facility] HermannHEMATOLOGY 2018-01-31 11:41:008.2[facility] VjevoafJDAWDBTROV4423-32-60 11:41:00 Test Item Value Reference Range Interpretation Comments Max Amplitude Rapid (test code = Max 62 mm 52-71 Amplitude Rapid) [facility] QdphfqfOKFCAQYJFH1441-48-12 11:41:00Negative *NA*(01/31/18 6:41 AM) [facility]UR[facility] OMGQD0044-27-79 11:41:000.2[facility]annUR[facility] AND ALPFT6614-92-26 11:41:00Trace *ABN*(01/31/18 6:41 AM)[facility]UR[facility] AND XOQLC9520-64-88 11:41:00Negative *NA*(01/31/18 6:41 AM)[facility] QAKVN7003-45-35 11:41:00Negative (01/31/18 6:41 AM)[facility]annUR[facility] AND AKRYD2601-52-98 11:41:00 Test Item Value Reference Range Interpretation Comments UA pH (test code = UA pH) 7.0 1 5.0-8.0 [facility] OXGHQ9480-98-03 11:41:00Negative *NA*(01/31/18 6:41 AM)[facility] EYBSM1811-36-24 11:41:00Negative (01/31/18 6:41 AM) [facility] NJJJF1310-20-30 11:41:00Trace *ABN*(01/31/18 6:41 AM) [facility] EYKNR2996-77-34 11:41:00Negative (01/31/18 6:41 AM) [facility] JCEWQ4577-31-18 11:41:00 Test Item Value Reference Range Interpretation Comments UA Spec Grav (test code = UA Spec 1.010 1 Grav) [facility] FZOLZ5077-63-09 11:41:00Yellow *NA*(01/31/18 6:41 AM) [facility] IKIDI4485-80-59 11:41:00Clear (01/31/18 6:41 AM) [facility] HermannCHEM AXCDB8196-99-44 11:41:77464Uojrufbu HermannCHEM PANEL 2018-01-31 11:41:008.3[facility] HermannCHEM XRBYK5276-12-60 11:41:92504Toyijirc HermannCHEM NSYJB8340-91-09 11:41:0027[facility] HermannCHEM REHQT4061-83-03 11:41:0095[facility] HermannCHEM YUPWO6973-41-02 11:41:004.2[facility] HermannCHEM NXKRL3376-22-49 11:41:000.65[facility] HermannCHEM OIVAX7303-60-38 11:41:0011 [facility] HermannCHEM RQSWN6682-13-44 11:41:64557Mcpeqkys HermannCHEM PANEL 2018-01-31 11:41:008.2[facility]annCHEM RYDQW5154-42-51 11:41:000.8[facility] HermannDRUG WWBEWU9127-71-80 11:41:00See Note (01/31/18 6:41 AM)[facility] PRQSGS6900-90-17 11:41:00Negative *NA*(01/31/18 6:41 AM)[facility] TRLMUV5501-13-53 11:41:00Negative *NA*(01/31/18 6:41 AM)[facility] CPEHLZ1700-04-03 11:41:00Negative *NA*(01/31/18 6:41 AM)[facility] WWRLKU8269-64-11 11:41:00Negative *NA*(01/31/18 6:41 AM)[facility] REOXYA9538-14-25 11:41:00Negative *NA*(01/31/18 6:41 AM)[facility] ORKZYE6944-06-59 11:41:00Negative *NA*(01/31/18 6:41 AM)[facility] TWSURK4794-85-46 11:41:00Negative *NA*(01/31/18 6:41 AM)[facility] YKCSAKLWBQRBE3577-85-07 11:41:00Negative *NA*(01/31/18 6:41 AM)[facility] RVGLOQAAAP9143-95-86 11:41:000.7[facility] SsfvdotHINDQVWYAL9230-81-07 11:41:002.9 [facility] UxumzomPNYXPPWPZN5069-20-72 11:41:000.2[facility] HermannHEMATOLOGY 2018-01-31 11:41:0055.3[facility] LhqdakcKKOLJUWZWT8727-40-09 11:41:0033.5[facility] FhlqdbqLKKMKENJSH3924-70-92 11:41:008.5[facility] BpeutggYQZVWZFKKB0334-26-14 11:41:000.4[facility] TjyiqyrXBWHAGFRRF5013-42-87 11:41:002.3[facility] REYPSFGPAE8811-08-04 11:41:004.9[facility] KaprtlpDEYTKDBWDP7729-56-49 11:41:008.8 [facility] FthlyvhTPZBRAPOVQ6511-50-44 11:41:00 Test Item Value Reference Range Interpretation Comments MCH (test code = MCH) 28.1 pg 27.0-31.0 [facility]kfcabsOPJARNOFVI4504-99-94 11:41:0032.9[facility] HermannHEMATOLOGY 2018-01-31 11:41:0015.9[facility] PjqlcleSWWVDAPEKW4177-79-14 11:41:004.10[facility] LycyqoiLJZKDANSNK8466-54-77 11:41:0034.9[facility] IsxftppFWKDNQNNXC5516-14-66 11:41:0085.2[facility] TzuftbvHIIHZMHKGG8655-65-60 11:41:0011.5[facility] VYDCVTZHGO6095-85-67 11:41:00751Juklgebu PxvqhwpSUVSRNIPNW3739-90-47 11:41:007.7 [facility]FbtwosoPXHVATAXRK2977-88-23 11:41:00 Test Item Value Reference Range Interpretation Comments ACT (TEG) Rapid (test code = ACT (TEG) 105 s 86-118 Rapid) [facility] TexasIozgnkqREXPSLLQGN2335-03-07 11:41:00 Test Item Value Reference Range Interpretation Comments Angle Rapid (test code = Angle 75 degrees 64-80 Rapid) [facility] TexasEehnmvyRMBNNLGBVP4730-73-68 11:41:00 Test Item Value Reference Range Interpretation Comments K-time Rapid (test code = K-time 1.2 min 0.6-2.3 Rapid) [facility] TexasSooolhvJCWAEXKOZX0076-82-45 11:41:00 Test Item Value Reference Range Interpretation Comments R-time Rapid (test code = R-time 0.6 min 0.4-0.7 Rapid) [facility] HospitalKdpgdhlQRNJEJCSMF8303-97-39 11:41:00 Test Item Value Reference Range Interpretation Comments Split Point Rapid (test code = Split 0.4 min Point Rapid) [facility] HospitalUvhyozhPHWKOELAYH4182-45-14 11:41:001.3[facility] HermannHEMATOLOGY 2018-01-31 11:41:008.2[facility] QurdmtlWJXEOXQKOZ4618-87-30 11:41:00 Test Item Value Reference Range Interpretation Comments Max Amplitude Rapid (test code = Max 62 mm 52-71 Amplitude Rapid) [facility] HospitalDuhlnrrEQKGAYMAXB2743-77-31 11:41:00Negative *NA*(01/31/18 6:41 AM) [facility] RZMKV6270-83-94 11:41:000.2[facility] AND PSYKB5564-83-32 11:41:00Trace *ABN*(01/31/18 6:41 AM)[facility] UZPOF2579-20-26 11:41:00Negative *NA*(01/31/18 6:41 AM)[facility] RCJIL1365-52-57 11:41:00Negative (01/31/18 6:41 AM)[facility] EYZAF0407-38-63 11:41:00 Test Item Value Reference Range Interpretation Comments UA pH (test code = UA pH) 7.0 1 5.0-8.0 [facility] YHNSF6908-33-44 11:41:00Negative *NA*(01/31/18 6:41 AM)[facility] ALJDX6784-94-59 11:41:00Negative (01/31/18 6:41 AM) [facility] HZOJT0014-78-64 11:41:00Trace *ABN*(01/31/18 6:41 AM) [facility] SWEDA6565-51-03 11:41:00Negative (01/31/18 6:41 AM) [facility] LUYGB1728-83-56 11:41:00 Test Item Value Reference Range Interpretation Comments UA Spec Grav (test code = UA Spec 1.010 1 Grav) [facility] IIACJ0321-86-98 11:41:00Yellow *NA*(01/31/18 6:41 AM) [facility] XTUPB6686[facility]54-28 11:41:00Clear (01/31/18 6:41 AM) [facility] AIYMH6681-92-24 11:41:00Negative (01/31/18 6:41 AM) [facility] MSFXR3969-15-47 11:41:00Trace *ABN*(01/31/18 6:41 AM) [facility] AJDCO5623-75-73 11:41:00Negative (01/31/18 6:41 AM) [facility] NKJJM3007-10-92 11:41:00 Test Item Value Reference Range Interpretation Comments UA Spec Grav (test code = UA Spec 1.010 1 Grav) [facility] CRGBL7757-39-55 11:41:00Yellow *NA*(01/31/18 6:41 AM) [facility] OZEAQ5685-73-17 11:41:00Clear (01/31/18 6:41 AM) [facility] WWXHU9927-22-66 11:41:85223Pevpzhev HermannCHEM PANEL 2018-01-31 11:41:008.3[facility] HTKLD8213-28-70 11:41:28781Ctkzbjey HermannCHEM EFXBJ4870-03-11 11:41:0027[facility] VBVFD3790-58-82 11:41:0095[facility] OCDGX5268-14-60 11:41:004.2[facility] UWRCB6461-82-49 11:41:000.65[facility] JNKWZ8067-37-33 11:41:0011 [facility] GIRLV1387-45-23 11:41:66384Ophicudo HermannCHEM PANEL 2018-01-31 11:41:008.2[facility] HAJSH7256-26-87 11:41:000.8[facility] GNMWUV0513-71-07 11:41:00See Note (01/31/18 6:41 AM)[facility] HKLSNS6613-34-98 11:41:00Negative *NA*(01/31/18 6:41 AM)[facility] RDFJVJ0788-98-24 11:41:00Negative *NA*(01/31/18 6:41 AM)[facility] NQDUFL0207-05-17 11:41:00Negative *NA*(01/31/18 6:41 AM)[facility] URDRTQ6616-67-19 11:41:00Negative *NA*(01/31/18 6:41 AM)[facility] KUIFFN6212-28-06 11:41:00Negative *NA*(01/31/18 6:41 AM)[facility] YHEXMO5456-22-46 11:41:00Negative *NA*(01/31/18 6:41 AM)[facility] DRUG ZDPYLV8966-54-42 11:41:00Negative *NA*(01/31/18 6:41 AM)[facility] GENCECNRZMLJN9891-39-98 11:41:00Negative *NA*(01/31/18 6:41 AM)[facility] DGCNMACFCB6380-85-48 11:41:000.7[facility] DtmsbyjUFXWNSJURQ8543-50-69 11:41:002.9 [facility] QnkkihqPSMOWFBISW7679-83-46 11:41:000.2[facility]annHEMATOLOGY 2018-01-31 11:41:0055.3[facility] PojtbljUVVQUJNUKS7354-16-18 11:41:0033.5[facility] SvkruezCQTABFXPLJ8744-34-86 11:41:008.5[facility] UrgpoppSVQAXPNJXI4958-52-66 11:41:000.4[facility] IlbrqapLOIRRFNZZQ0561-28-80 11:41:002.3[facility] BRUKUILCHQ8275-91-63 11:41:004.9[facility] PlgieziWZGDYOWNSP2802-21-22 11:41:008.8 [facility] UanoggrRMODDUKUXR1058-76-81 11:41:00 Test Item Value Reference Range Interpretation Comments MCH (test code = MCH) 28.1 pg 27.0-31.0 [facility] OeuiypsGBULDMDYIP9076-38-97 11:41:0032.9[facility]annHEMATOLOGY 2018-01-31 11:41:0015.9[facility] VyvwilnCFLKBHWQLY6030-10-69 11:41:004.10[facility] QqfzzsjUCVBFGMHQI0712-56-61 11:41:0034.9[facility] MkzxmagZEIVPFUMPT6503-19-39 11:41:0085.2[facility] HzdmeguUWPCJAZQJN1763-55-61 11:41:0011.5[facility] TITUBYDAWC6840-76-95 11:41:56446Ypocuhlt LsfzzdiHWQKPUGGTM9973-01-17 11:41:007.7 [facility] KmayhuuUNYRKRXHFV3798-13-85 11:41:00 Test Item Value Reference Range Interpretation Comments ACT (TEG) Rapid (test code = ACT (TEG) 105 s 86-118 Rapid) [facility] XpamaseHSFEKHHDZA2303-19-48 11:41:00 Test Item Value Reference Range Interpretation Comments Angle Rapid (test code = Angle 75 degrees 64-80 Rapid) [facility] VyeqpdoRXNXEFDFTQ1323-06-19 11:41:00 Test Item Value Reference Range Interpretation Comments K-time Rapid (test code = K-time 1.2 min 0.6-2.3 Rapid) [facility] LomwvhiJWEULQRHZI3463-57-11 11:41:00 Test Item Value Reference Range Interpretation Comments R-time Rapid (test code = R-time 0.6 min 0.4-0.7 Rapid) [facility] AebofnaSYXHTTMWRM9571-71-18 11:41:00 Test Item Value Reference Range Interpretation Comments Split Point Rapid (test code = Split 0.4 min Point Rapid) [facility] YrbyygxEKKYSCWEGM7616-68-26 11:41:001.3[facility]annHEMATOLOGY 2018-01-31 11:41:008.2[facility] PceuqttOWEEQUZIPV2105-42-22 11:41:00 Test Item Value Reference Range Interpretation Comments Max Amplitude Rapid (test code = Max 62 mm 52-71 Amplitude Rapid) [facility] PhwboxhSYLQQLMMAB3004-27-08 11:41:00Negative *NA*(01/31/18 6:41 AM) [facility] GPDUA7329-47-78 11:41:000.2[facility] QCFOA3774-67-05 11:41:00Trace *ABN*(01/31/18 6:41 AM)[facility] ZJMCW8777-67-61 11:41:00Negative *NA*(01/31/18 6:41 AM)[facility] EOHTQ6518-65-59 11:41:00Negative (01/31/18 6:41 AM)[facility] KDMEL9753-64-19 11:41:00 Test Item Value Reference Range Interpretation Comments UA pH (test code = UA pH) 7.0 1 5.0-8.0 [facility] FAGKN8315-04-82 11:41:00Negative *NA*(01/31/18 6:41 AM)[facility] BHSBZ4853-39-21 11:41:00Negative (01/31/18 6:41 AM) [facility] YOYBE2389-89-47 11:41:00Trace *ABN*(01/31/18 6:41 AM) [facility] GNRMB5875-31-70 11:41:00Negative (01/31/18 6:41 AM) [facility] SQSGU4850-13-21 11:41:00 Test Item Value Reference Range Interpretation Comments UA Spec Grav (test code = UA Spec 1.010 1 Grav) [facility] PYKZE8838-82-74 11:41:00Yellow *NA*(01/31/18 6:41 AM) [facility] YGATO6366-91-33 11:41:00Clear (01/31/18 6:41 AM) [facility] JUWWU5235-25-40 11:41:83346Mjgobqov HermannCHEM PANEL 2018-01-31 11:41:008.3[facility]annCHE[facility] DVYAX3911-36-69 11:41:11696Btwpllmw HermannCHEM KDLDV7685-60-03 11:41:0027[facility]annCHE[facility] LAXIU7115-14-43 11:41:0095[facility]CHE[facility] HZHBS9396-27-76 11:41:004.2[facility]annCHE[facility] XEFXW7894-57-29 11:41:000.65[facility]annCHE[facility] PFFSW0609-22-69 11:41:0011 [facility]CHE[facility] FZMKZ3223-23-23 11:41:36046Dtjwjgvz HermannCHEM PANEL 2018-01-31 11:41:008.2[facility]annCHE[facility] MGUVS3007-55-79 11:41:000.8[facility]DR[facility] TTDMME5689-23-21 11:41:00See Note (01/31/18 6:41 AM)[facility] LXNDEG9225-57-71 11:41:00Negative *NA*(01/31/18 6:41 AM)[facility] PSFNFN8430-03-84 11:41:00Negative *NA*(01/31/18 6:41 AM)[facility] DRUG YPWQKT4494-46-37 11:41:00Negative *NA*(01/31/18 6:41 AM)[facility] DRUG OZEMKI5463-46-90 11:41:00Negative *NA*(01/31/18 6:41 AM)[facility] DRUG MYSZEH5082-42-80 11:41:00Negative *NA*(01/31/18 6:41 AM)[facility] OSKXQE2080-32-32 11:41:00Negative *NA*(01/31/18 6:41 AM)[facility] KBXJLR6062-31-91 11:41:00Negative *NA*(01/31/18 6:41 AM)[facility] VBWJWVGUEHGZO4774-60-77 11:41:00Negative *NA*(01/31/18 6:41 AM)[facility] NWOTSYTYJQ0271-35-39 11:41:000.7[facility] KjydzxvIQUFZONMWH2890-77-12 11:41:002.9 [facility] VwjakeyFWKYWMNDMB6113-60-30 11:41:000.2[facility]annHEMATOLOGY 2018-01-31 11:41:0055.3[facility] JzovdviVJQPTHTTWF3196-16-92 11:41:0033.5[facility] GkskmmjTBAYFNSBUI1144-32-66 11:41:008.5[facility] YguvgviFFWUSNJQXT8449-41-40 11:41:000.4[facility] MgeiwhuFHAFNPVONP7377-72-72 11:41:002.3[facility] FUVKNZNCTO4997-52-34 11:41:004.9[facility] YuzwrfjKPFTABYBVB9632-97-88 11:41:008.8 [facility] MmsxdfsWLRLVPVSXX9321-73-15 11:41:00 Test Item Value Reference Range Interpretation Comments MCH (test code = MCH) 28.1 pg 27.0-31.0 [facility] IkcyhctSLKHUSJQVW8540-61-69 11:41:0032.9[facility]annHEMATOLOGY 2018-01-31 11:41:0015.9[facility] SeweaehCTHOGVPQIF3943-19-96 11:41:004.10[facility] CqqlenlAYPZPIXHOX1335-57-31 11:41:0034.9[facility] IlqcyknELANWWBWAD1604-22-83 11:41:0085.2[facility] MpudploKGHFYPPRRS7365-59-21 11:41:0011.5[facility] JNTJDOHJTV9494-79-97 11:41:35701Kyvtysob FsvowysBLKJJXUDWN5332-18-75 11:41:007.7 [facility] ArzypvgVNMRSZUHDV4803-20-29 11:41:00 Test Item Value Reference Range Interpretation Comments ACT (TEG) Rapid (test code = ACT (TEG) 105 s 86-118 Rapid) [facility] QsuyiywFIJDYSSIJP1418-77-26 11:41:00 Test Item Value Reference Range Interpretation Comments Angle Rapid (test code = Angle 75 degrees 64-80 Rapid) [facility] XfbxubhRTSIACBKHV7374-22-38 11:41:00 Test Item Value Reference Range Interpretation Comments K-time Rapid (test code = K-time 1.2 min 0.6-2.3 Rapid) [facility] TymonjbBTIAXIXAWT0790-36-47 11:41:00 Test Item Value Reference Range Interpretation Comments R-time Rapid (test code = R-time 0.6 min 0.4-0.7 Rapid) [facility] WcvhogzPDUBGGDLEF5777-65-72 11:41:00 Test Item Value Reference Range Interpretation Comments Split Point Rapid (test code = Split 0.4 min Point Rapid) [facility] FfnsdzcZOXGOAJMUZ9571-33-26 11:41:001.3[facility]annHEMATOLOGY 2018-01-31 11:41:008.2[facility] WwuypdtNZFWSJHOMB7605-12-67 11:41:00 Test Item Value Reference Range Interpretation Comments Max Amplitude Rapid (test code = Max 62 mm 52-71 Amplitude Rapid) [facility] PxphugaSNTNJKVJLN1504-58-48 11:41:00Negative *NA*(01/31/18 6:41 AM) [facility] OHFYH3267-30-18 11:41:000.2[facility] SQXNM0433-83-39 11:41:00Trace *ABN*(01/31/18 6:41 AM)[facility] TEAMH5914-61-47 11:41:00Negative *NA*(01/31/18 6:41 AM)[facility] GLXHX8214-61-52 11:41:00Negative (01/31/18 6:41 AM)[facility] JNHIO8828-31-20 11:41:00 Test Item Value Reference Range Interpretation Comments UA pH (test code = UA pH) 7.0 1 5.0-8.0 [facility] MKXLV1803-53-24 11:41:00Negative *NA*(01/31/18 6:41 AM)[facility]annCHEM NTLLY8422-28-01 11:15:008.9[facility]annCHEM PANEL 2017-06-28 11:15:97402Itnfbwqi HermannCHEM XDYMQ0574-83-97 11:15:77623Dgmjowej HermannCHEM WRWOA6060-35-26 11:15:0024[facility]annCHE[facility] REFNX6773-06-11 11:15:0020[facility]annCHE[facility] BQELX7375-68-38 11:15:0024[facility]annCHE[facility] XLMJB7129-22-76 11:15:003.7[facility]annCHEM GPEOR6883-87-01 11:15:000.63 [facility]CHE[facility] LMRSN6547-39-40 11:15:008[facility]annCHEM PANEL 2017-06-28 11:15:21509Ckafzjyd JbgpiytCYMYJUZUPEWEP1327-89-95 11:15:00Negative *NA*(06/28/17 6:15 AM)[facility] GvtjyptCZBQQMANKT0248-99-36 11:15:0015.4[facility] JwwnujnAWGDAJTJCL8251-90-57 11:15:007.7[facility] CcvzulfQPTUVZLKFL4709-13-85 11:15:80846Cisinlcc AvnztzoZALGQLXPSV4523-32-91 11:15:0087.1[facility] XVFVRCEOHX4389-40-28 11:15:0037.9[facility] WilsngoHDPGGGXHAQ8121-99-73 11:15:00 33.3[facility] NrxnxfpRZCDGCLAYQ7036-23-71 11:15:00 Test Item Value Reference Range Interpretation Comments MCH (test code = MCH) 29.0 pg 27.0-31.0 [facility] CokwpgeERVLUXQEFR3601-06-36 11:15:0012.6[facility]annHEMATOLOGY 2017-06-28 11:15:004.35[facility] SylvurdCQYNMAOZPJ5437-55-44 11:15:0010.7[facility] DgtrslaZRCNVQOQBQ9109-27-07 11:15:000.8[facility] EvqvdyhNYNJHMXKGD4036-54-89 11:15:000.2[facility] EznzjolNQGKMGCLZX4545-38-26 11:15:0072.1[facility] CXGXDBUTJX7950-10-58 11:15:007.7[facility] NdrnzscCQHRGOZYHU3858-73-01 11:15:002.0 [facility] VvnzdxtEHSWOUTASQ2447-88-50 11:15:000.4[facility]annHEMATOLOGY 2017-06-28 11:15:007.2[facility] JninwnnONGINZULNT8619-42-37 11:15:001.7[facility] LxqzwpxAZROIIPOUM9691-32-77 11:15:0018.6[facility] STOOL 2017-06-28 11:15:00Colorless *NA*(06/28/17 6:15 AM)[facility] MFEWW4524-91-61 11:15:00 Test Item Value Reference Range Interpretation Comments UA Spec Grav (test code = UA Spec 1.002 1 Grav) [facility] FSFAA2476-73-95 11:15:00Clear (06/28/17 6:15 AM) [facility] UXHYM9526-45-50 11:15:00 Test Item Value Reference Range Interpretation Comments UA pH (test code = UA pH) 6.0 1 5.0-8.0 [facility] VHFQN3377-58-12 11:15:00Moderate *ABN*(06/28/17 6:15 AM)[facility] YEKFQ6734-02-56 11:15:00Negative *NA*(06/28/17 6:15 AM)[facility] WCVQS0322-97-24 11:15:00Negative (06/28/17 6:15 AM) [facility] HNAVT9463-75-25 11:15:001[facility] NYOAK3723-59-75 11:15:00Negative (06/28/17 6:15 AM)[facility] MNWXH2983-80-02 11:15:002[facility] UITVC1138-85-32 11:15:001 [facility]annCHEM ZPCGU1589-82-76 11:15:47552Bwpkgbxx HermannCHEM PANEL 2017-06-28 11:15:003.5[facility]annCHEM DLCBT8187-76-78 11:15:00 Test Item Value Reference Range Interpretation Comments A/G Ratio (test code = A/G Ratio) 1.1 1 0.7-1.6 [facility]CHE[facility] VQDOA5432-11-64 11:15:00 Test Item Value Reference Range Interpretation Comments B/C Ratio (test code = B/C Ratio) 13 1 6-25 [facility]annCHE[facility] EZIES4710-97-53 11:15:0013.6[facility]annCHEM PANEL 2017-06-28 11:15:007.2[facility]annCHEM FCOYH5232-23-05 11:15:0056[facility]annCHEM VMJZK1965-93-00 11:15:000.2[facility]annCHEM TZTUH8821-10-08 11:15:003.6[facility]annCHEM GZMEU2259-97-18 11:15:79648Jilkqzmx HermannCHEM ZCPQO7825-81-76 11:15:008.9[facility]annCHEM DVZIF4110-63-73 11:15:97932 [facility]CHE[facility] HGLRF0701-14-16 11:15:25207Oobwhgxf HermannCHEM PANEL 2017-06-28 11:15:0024[facility]annCHEM QESIB6771-42-03 11:15:0020[facility]annCHEM MZORP9914-99-58 11:15:0024[facility]annCHEM NFGJO5246-79-07 11:15:003.7[facility]annCHEM ECKNC3411-47-17 11:15:000.63[facility]annCHEM ARQSM1441-48-07 11:15:008[facility]annCHEM FJYDD6565-09-74 11:15:98952 [facility] LvgpxoqABMTWEQINXNOP3281-73-26 11:15:00Negative *NA*(06/28/17 6:15 AM) [facility] QomutipQKUBKOJVBL2778-00-97 11:15:0015.4[facility]annHEMATOLOGY 2017-06-28 11:15:007.7[facility] FscsyupGUVYXGHTLT8594-16-71 11:15:76771Zzhclzyy CssbhtbONLNILPFGE6082-31-42 11:15:0087.1[facility] LkzxtpzWGQMLSPJIY4635-49-45 11:15:0037.9[facility] RgpdmzxHEMWSMQTJW2670-70-82 11:15:0033.3[facility] KHGSKRHXQU8932-79-02 11:15:00 Test Item Value Reference Range Interpretation Comments MCH (test code = MCH) 29.0 pg 27.0-31.0 [facility] ToksmtfLKPPMULRUG6804-69-31 11:15:0012.6[facility]annHEMATOLOGY 2017-06-28 11:15:004.35[facility] OvlbqdrUCODTSYHBO6041-75-32 11:15:0010.7[facility] GvqnrjmSRGJPSRAVB9272-14-38 11:15:000.8[facility] BofvnjmRJBVHAKNZZ9518-98-08 11:15:000.2[facility] ShrnvmdEIUTQDIQNZ4151-74-64 11:15:0072.1[facility] EBIJTLJSVQ8399-44-00 11:15:007.7[facility] OyolxvtZLYTNTUGQH7999-19-21 11:15:002.0 [facility] FhhcfcoVYLLZWJVMD4860-90-32 11:15:000.4[facility]annHEMATOLOGY 2017-06-28 11:15:007.2[facility] RpokqumLBPQQBFZNX1937-17-53 11:15:001.7[facility] IvgitxdPDAWCZFPJG9206-62-78 11:15:0018.6[facility] STOOL 2017-06-28 11:15:00Colorless *NA*(06/28/17 6:15 AM)[facility] ZJBDZ1257-59-35 11:15:00 Test Item Value Reference Range Interpretation Comments UA Spec Grav (test code = UA Spec 1.002 1 Grav) [facility] KXUMT1386-03-73 11:15:00Clear (06/28/17 6:15 AM) [facility] OUNJA5058-47-08 11:15:00 Test Item Value Reference Range Interpretation Comments UA pH (test code = UA pH) 6.0 1 5.0-8.0 [facility] TLQYV5887-42-49 11:15:00Moderate *ABN*(06/28/17 6:15 AM)[facility] OTKDR3992-01-93 11:15:00Negative *NA*(06/28/17 6:15 AM)[facility] QVXDW6813-44-48 11:15:00Negative (06/28/17 6:15 AM) [facility] CWOIY1001-84-03 11:15:001[facility] SHHIH5443-20-00 11:15:00Negative (06/28/17 6:15 AM)[facility] OYUGN9097-52-28 11:15:002[facility] JCVIR4565-00-17 11:15:001 [facility]annCHEM NHDCE6859-61-49 11:15:30994Hxwottvn HermannCHEM PANEL 2017-06-28 11:15:003.5[facility]annCHEM QAEHB5020-94-45 11:15:00 Test Item Value Reference Range Interpretation Comments A/G Ratio (test code = A/G Ratio) 1.1 1 0.7-1.6 [facility]CHE[facility] IOCWV7794-61-99 11:15:00 Test Item Value Reference Range Interpretation Comments B/C Ratio (test code = B/C Ratio) 13 1 6-25 [facility]annCHE[facility] ZTZNE1091-72-13 11:15:0013.6[facility]annCHEM PANEL 2017-06-28 11:15:007.2[facility]annCHEM FWEMZ7904-99-69 11:15:0056[facility]annCHEM RLVAX5086-34-43 11:15:000.2[facility]annCHEM PLBOG5347-42-81 11:15:003.6[facility]annCHEM SNVFD6666-55-54 11:15:67040Zedvqrfo HermannCHEM KCMJY3082-46-68 11:15:71734Qodeggqk HermannCHEM KVNWJ3965-45-18 11:15:003.5 [facility]annCHEM TLYOY8912-45-97 11:15:00 Test Item Value Reference Range Interpretation Comments A/G Ratio (test code = A/G Ratio) 1.1 1 0.7-1.6 [facility]annCHEM DWWCG2207-11-59 11:15:00 Test Item Value Reference Range Interpretation Comments B/C Ratio (test code = B/C Ratio) 13 1 6-25 [facility]annCHE[facility] EPMGP4802-77-47 11:15:0013.6[facility]annCHEM PANEL 2017-06-28 11:15:007.2[facility]annCHEM UNIAC6747-64-68 11:15:0056[facility]annCHEM JBKZB4081-27-80 11:15:000.2[facility]annCHEM QQQME4162-56-08 11:15:003.6[facility]annCHEM NKMHG3596-50-62 11:15:41305Iaaudpwp HermannCHEM PFRXC5147-74-16 11:15:008.9[facility]annCHEM KNCTS8207-54-06 11:15:22624 [facility]annCHE[facility] TQFKF0059-05-48 11:15:65703Ovnpsxvp HermannCHEM PANEL 2017-06-28 11:15:0024[facility]annCHEM NXHAI5503-78-07 11:15:0020[facility]annCHEM HZAOY2421-72-47 11:15:0024[facility]annCHEM KIKWW8695-03-99 11:15:003.7[facility]annCHEM PTQZC4801-61-17 11:15:000.63[facility]annCHEM XPPIN5750-89-45 11:15:008[facility]annCHEM UCVXL0976-68-51 11:15:38098 [facility] FwsmxpgFNMUPEZMXLAYV3562-90-79 11:15:00Negative *NA*(06/28/17 6:15 AM) [facility] IbomslpBPAVOKDMSG2229-29-60 11:15:0015.4[facility]annHEMATOLOGY 2017-06-28 11:15:007.7[facility] RabgltvBBAGESRLWE2245-12-03 11:15:18058Bgsitwhj XdqocchPORFAUEPOL5894-54-10 11:15:0087.1[facility] PvghfloRZDVOVVUPY4697-85-24 11:15:0037.9[facility] QplaahyERANUCZTWP9446-11-49 11:15:0033.3[facility] AGTDVJPTJP7765-61-35 11:15:00 Test Item Value Reference Range Interpretation Comments MCH (test code = MCH) 29.0 pg 27.0-31.0 [facility] PfkcwbfEXLRMGBCXZ8531-36-96 11:15:0012.6[facility]annHEMATOLOGY 2017-06-28 11:15:004.35[facility] NaxsrwvRVEUAEDMDA6054-49-49 11:15:0010.7[facility] ZpwsfbiEIDNOETFCX4807-79-56 11:15:000.8[facility] NklbtyvSGZOAOUMLT3903-39-51 11:15:000.2[facility] NkbzqjbOBVMKWHIWG8433-76-88 11:15:0072.1[facility] BVLBXMYQBX4859-81-22 11:15:007.7[facility] XrdjsvbECMPBXZGAF3115-31-03 11:15:002.0 [facility] XvyfomcCGHZCKCYXD8371-96-76 11:15:000.4[facility]annHEMATOLOGY 2017-06-28 11:15:007.2[facility] LknjrauYOQTFTPDGU4807-48-94 11:15:001.7[facility] YeptptbCVYNOBIEBQ8551-94-97 11:15:0018.6[facility] STOOL 2017-06-28 11:15:00Colorless *NA*(06/28/17 6:15 AM)[facility] QKNOX3133-17-45 11:15:00 Test Item Value Reference Range Interpretation Comments UA Spec Grav (test code = UA Spec 1.002 1 Grav) [facility] DXXOW7318-21-74 11:15:00Clear (06/28/17 6:15 AM) [facility] LVZMZ7257-05-73 11:15:00 Test Item Value Reference Range Interpretation Comments UA pH (test code = UA pH) 6.0 1 5.0-8.0 [facility] HQMJN4015-33-09 11:15:00Moderate *ABN*(06/28/17 6:15 AM)[facility] JCLJV1980-19-08 11:15:00Negative *NA*(06/28/17 6:15 AM)[facility] WXGFG2819-02-14 11:15:00Negative (06/28/17 6:15 AM) [facility] JQLVU8366-18-97 11:15:001[facility] IEHTL8498-91-31 11:15:00Negative (06/28/17 6:15 AM)[facility] AGBGM3520-92-31 11:15:002[facility] KHYMH6009-21-23 11:15:001 [facility]annCHEM MFGBO3619-39-73 11:15:46362Qxrvxqre HermannCHEM PANEL 2017-06-28 11:15:003.5[facility] HermannCHEM ZNLYH4264-49-85 11:15:00 Test Item Value Reference Range Interpretation Comments A/G Ratio (test code = A/G Ratio) 1.1 1 0.7-1.6 [facility]annCHEM ZHJQL1110-85-01 11:15:00 Test Item Value Reference Range Interpretation Comments B/C Ratio (test code = B/C Ratio) 13 1 6-25 [facility]CHE[facility] XZREO1703-06-77 11:15:0013.6[facility]annCHEM PANEL 2017-06-28 11:15:007.2[facility]annCHEM DXRXO6055-09-79 11:15:0056[facility]annCHEM XSLSZ9879-42-43 11:15:000.2[facility]annCHEM GICQK0653-17-43 11:15:003.6[facility]annCHEM ZONKO6539-32-12 11:15:06918Jmnpscxs HermannCHEM FLNSC1315-51-12 11:15:008.9[facility]annCHEM RZHGY4029-31-48 11:15:33183 [facility]CHE[facility] ZPGNT6582-96-43 11:15:99968Ddfksldh HermannCHEM PANEL 2017-06-28 11:15:0024[facility]annCHEM PONMP6505-87-75 11:15:0020[facility]annCHEM QWJUP2820-15-66 11:15:0024[facility]annCHEM GEGAN9786-38-15 11:15:003.7[facility]annCHEM KXCDX6562-69-59 11:15:000.63[facility]annCHEM LRVSB2772-63-02 11:15:008[facility]annCHEM QJKMW6979-43-37 11:15:59576 [facility] UcmwhayXXJTYSOVNVPHA6011-09-49 11:15:00Negative *NA*(06/28/17 6:15 AM) [facility] VwsbdcxWTNPYRHYFV5822-73-76 11:15:0015.4[facility] HermannHEMATOLOGY 2017-06-28 11:15:007.7[facility] BnoclrlTFUWUYBRTR0673-59-39 11:15:48850Tyzlqpbs TuswszvAXEYPCMGFY8010-14-66 11:15:0087.1[facility] WrighsbVZJXNHVZAB0017-32-76 11:15:0037.9[facility] KrarrxrILDMDRTAHE8101-46-88 11:15:0033.3[facility] AMMHSCGIII5546-18-14 11:15:00 Test Item Value Reference Range Interpretation Comments MCH (test code = MCH) 29.0 pg 27.0-31.0 [facility] GticzrgKYCTEPNZGA4384-77-26 11:15:0012.6[facility]annHEMATOLOGY 2017-06-28 11:15:004.35[facility] KtgqkdrZNKEDJAXDG7520-29-98 11:15:0010.7[facility] DuqvoghGPUWQFDUOQ2579-73-76 11:15:000.8[facility] HdquzpfZUZSMTFAFR5886-61-10 11:15:000.2[facility] VjbjyjuKVNRAZFDZF4130-16-71 11:15:0072.1[facility] VOWDFNPHBG5017-65-18 11:15:007.7[facility] ZptiovjQVLKQXEXJN1846-43-60 11:15:002.0 [facility] QuwxmhnNBUYWVYQGR8629-96-94 11:15:000.4[facility]annHEMATOLOGY 2017-06-28 11:15:007.2[facility] GblhukpCRVGKBMJBE2999-01-51 11:15:001.7[facility] SiudbixMIFTYOQCFA5311-21-16 11:15:0018.6[facility] STOOL 2017-06-28 11:15:00Colorless *NA*(06/28/17 6:15 AM)[facility] FZVLV1062-55-74 11:15:00 Test Item Value Reference Range Interpretation Comments UA Spec Grav (test code = UA Spec 1.002 1 Grav) [facility] PYLGI0170-49-48 11:15:00Clear (06/28/17 6:15 AM) [facility] MMLWP2556-20-00 11:15:00 Test Item Value Reference Range Interpretation Comments UA pH (test code = UA pH) 6.0 1 5.0-8.0 [facility] OXTUW8587-74-53 11:15:00Moderate *ABN*(06/28/17 6:15 AM)[facility] OXJHM5360-08-32 11:15:00Negative *NA*(06/28/17 6:15 AM)[facility] OESXZ6041-89-33 11:15:00Negative (06/28/17 6:15 AM) [facility] LYBGQ0100-66-24 11:15:001[facility] VPSDG3303-93-60 11:15:00Negative (06/28/17 6:15 AM)[facility] LJPAA1419-02-91 11:15:002[facility] CJASY2307-55-54 11:15:001 [facility]
[2021-03-16] MEDS ORDERED: ASPIRIN 81 MG CHEWABLE TABLET ONE (04:27)
[2021-03-16] MEDS ORDERED: MECLIZINE HCL 12.5 MG TAB ONE (04:27)
[2021-03-16] MEDS ORDERED: ONDANSETRON 4 MG/2 ML VIAL ONE (04:28)
[2021-03-16] MEDS ORDERED: NA CHLORIDE 0.9% 500 ML ONE (04:28)
[2021-03-16 04:37] LABS: Absolute Lymphocytes (CBC) 2.2 K/uL (0.7-4.9); Basophils % 0.8 % (0-1.3); Hematocrit 31.5 % (36.0-45.0); Lymphocytes % 25.9 % (15.3-44.8); MPV 7.8 fL (7.6-11.3); RBC Red Blood Cell Count 3.87 M/uL (3.86-4.86)
[2021-03-16 04:54] LABS: ALT/SGPT 18 U/L (12-78); AST/SGOT 17 U/L (15-37); Albumin 3.1 g/dL (3.4-5.0); Alkaline Phosphatase 48 U/L (45-117); BUN Blood Urea Nitrogen 8 mg/dL (7-18); Bicarbonate 23 mmol/L (21-32); Bilirubin Total 0.3 mg/dL (0.2-1.0); Glucose Level 86 mg/dL (74-106); Potassium 3.9 mmol/L (3.5-5.1); Protein, Total 6.5 g/dL (6.4-8.2); Sodium Level 142 mmol/L (136-145); Troponin (Emerg Dept Use Only) < 0.02 ng/mL (0.0-0.045); Valproic Acid (Depakene) Level 38.8 ug/mL (50-100)
--- NOTE | 2021-03-16 05:21 | EDPHYS ---
Physician Documentation [facility] Name: Dayami Espinosa Age: 51 yrs Sex: Female : 1970 Arrival Date: 03/16/2021 Time: 03:19 Bed 7 Private MD: KHADIJAH Physician Darrell Mc HPI: 03/16 04:08 This 51 yrs old Female presents to ER via EMS with complaints of dizzy and asencio.sybil 04:08 The patient complains of pain to the forehead and left quaker. The patient describes sybil the headache as aching. Onset: The symptoms/episode began/occurred 2 day(s) ago. The patient presents with dizziness. Onset: The symptoms/episode began/occurred 2 day(s) ago. Context: occurred at home. Modifying factors: The symptoms are alleviated by nothing, the symptoms are aggravated by nothing. Associated signs and symptoms: The patient has no apparent associated signs or symptoms. Associated signs and symptoms: The patient has no apparent associated signs or symptoms. Headache History: The patient has had previous headaches and this one is similar to previous episodes. 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 - Social history:: Smoking status: Patient reports the use of cigarette tobacco products, smokes one pack cigarettes per day. - Family history:: not pertinent. ROS: 04:08 Constitutional: Negative for fever, chills, and weight loss, Eyes: Negative for injury, sybil pain, redness, and discharge, ENT: Negative for injury, pain, and discharge, Neck: Negative for injury, pain, and swelling, Cardiovascular: Negative for chest pain, palpitations, and edema, Respiratory: Negative for shortness of breath, cough, wheezing, and pleuritic chest pain, Abdomen/GI: Negative for abdominal pain, nausea, vomiting, diarrhea, and constipation, Back: Negative for injury and pain, : Negative for injury, bleeding, discharge, and swelling, MS/Extremity: Negative for injury and deformity, Skin: Negative for injury, rash, and discoloration, Psych: Negative for depression, anxiety, suicide ideation, homicidal ideation, and hallucinations, Allergy/Immunology: Negative for hives, rash, and allergies, Endocrine: Negative for neck swelling, polydipsia, polyuria, polyphagia, and marked weight changes, Hematologic/Lymphatic: Negative for swollen nodes, abnormal bleeding, and unusual bruising. 04:08 Neuro: Positive for dizziness, headache. Exam: 04:08 Constitutional: This is a well developed, well nourished patient who is awake, alert, sybil and in no acute distress. Head/Face: Normocephalic, atraumatic. Eyes: Pupils equal round and reactive to light, extra-ocular motions intact. Lids and lashes normal. Conjunctiva and sclera are non-icteric and not injected. Cornea within normal limits. Periorbital areas with no swelling, redness, or edema. ENT: Nares patent. No nasal discharge, no septal abnormalities noted. Tympanic membranes are normal and external auditory canals are clear. Oropharynx with no redness, swelling, or masses, exudates, or evidence of obstruction, uvula midline. Mucous membranes moist. Neck: Trachea midline, no thyromegaly or masses palpated, and no cervical lymphadenopathy. Supple, full range of motion without nuchal rigidity, or vertebral point tenderness. No Meningismus. Chest/axilla: Normal chest wall appearance and motion. Nontender with no deformity. No lesions are appreciated. Cardiovascular: Regular rate and rhythm with a normal S1 and S2. No gallops, murmurs, or rubs. Normal PMI, no JVD. No pulse deficits. Respiratory: Lungs have equal breath sounds bilaterally, clear to auscultation and percussion. No rales, rhonchi or wheezes noted. No increased work of breathing, no retractions or nasal flaring. Abdomen/GI: Soft, non-tender, with normal bowel sounds. No distension or tympany. No guarding or rebound. No evidence of tenderness throughout. Back: No spinal tenderness. No costovertebral tenderness. Full range of motion. Skin: Warm, dry with normal turgor. Normal color with no rashes, no lesions, and no evidence of cellulitis. MS/ Extremity: Pulses equal, no cyanosis. Neurovascular intact. Full, normal range of motion. Neuro: Awake and alert, GCS 15, oriented to person, place, time, and situation. Cranial nerves II-XII grossly intact. Motor strength 5/5 in all extremities. Sensory grossly intact. Cerebellar exam normal. Normal gait. Psych: Awake, alert, with orientation to person, place and time. Behavior, mood, and affect are within normal limits. 04:08 Musculoskeletal/extremity: ROM: full active range of motion, full passive range of motion, Circulation is intact in all extremities. Sensation intact. Compartment Syndrome exam of affected extremity: is normal. DVT Exam: No signs of deep vein thrombosis. no pain, no swelling, no tenderness, negative Homans' sign noted on exam, no appreciated bluish discoloration, no erythema, no increased warmth. 04:39 ECG was reviewed by the Attending Physician. [facility] Vital Signs: 03:27 BP 126 / 82; Pulse 79; Resp 16; Temp 98.2(O); Pulse Ox 98% on R/A; Weight 48.08 kg (R); lp1 Height 5 ft. 3 in. (160.02 cm); Pain 0/10; 05:55 BP 110 / 76; Pulse 71; Resp 19; Pulse Ox 98% on R/A; lp1 06:37 BP 97 / 69; Pulse 81; Resp 16; Pulse Ox 98% on R/A; lp1 06:50 BP 104 / 73; Pulse 79; Resp 16; Pulse Ox 98% on R/A; lp1 03:27 Body Mass Index 18.78 (48.08 kg, 160.02 cm) lp1 [place] Coma Score: 04:11 Eye Response: spontaneous(4). Verbal Response: oriented(5). Motor Response: obeys sybil commands(6). Total: 15. MDM: 03:51 Patient medically screened. [facility] 04:11 Differential diagnosis: cluster headache, hypoglycemia, hyponatremia, sinusitis, sybil subdural hematoma, tension headache. Differential diagnosis: cardiac arrhythmia, CVA, generalized weakness, hypovolemia, idiopathic dizziness, near-syncope. Data reviewed: vital signs, nurses notes, lab test result(s), EKG, radiologic studies, CT scan, plain films. Data interpreted: phototypesetting equipment monitor: rate is 79 beats/min, rhythm is regular, Pulse oximetry: on room air is 98 %. Test interpretation: by ED physician or midlevel provider: ECG, plain radiologic studies. Counseling: I had a detailed discussion with the patient and/or guardian regarding: the historical points, exam findings, and any diagnostic results supporting the discharge/admit diagnosis, lab results, radiology results, the need for outpatient follow up, for definitive care, a family practitioner, a neurologist. 03/16 04:07 Order name: CBC with Diff; Complete Time: 05:19 [facility] 03/16 04:07 Order name: Comprehensive Metabolic Panel; Complete Time: 05:19 [facility] 03/16 04:07 Order name: Troponin (emerg Dept Use Only); Complete Time: 05:19 [facility] 03/16 04:08 Order name: Depakote; Complete Time: 05:19 [facility] 03/16 04:08 Order name: UDS [facility] 03/16 05:47 Order name: UA [facility] 03/16 04:07 Order name: Chest Single View XRAY [facility] 03/16 04:07 Order name: CT Head Brain wo Cont [facility] 03/16 05:53 Order name: Urine Microscopic Only [facility] 03/16 06:00 Order name: Test, Urine [facility] 03/16 06:08 Order name: Urine Culture [facility] 03/16 04:07 Order name: EKG; Complete Time: 04:08 [facility] 03/16 04:07 Order name: EKG - Nurse/Tech; Complete Time: 04:35 [facility] 03/16 04:08 Order name: Urine Dipstick-Ancillary (obtain specimen); Complete Time: 05:52 [facility] 03/16 04:08 Order name: Urine Test (obtain specimen); Complete Time: 06:32 [facility] EC:39 Rate is 64 beats/min. Rhythm is regular. QRS [place] is Normal. RI interval is normal. QRS sybil interval is normal. QT interval is normal. No Q waves. T waves are Normal. No ST changes noted. Clinical impression: Normal ECG and No evidence of ischemia. Interpreted by me. Reviewed by me. Administered Medications: 04:35 Drug: NS 0.9% 500 ml Route: IV; Rate: bolus; Site: right forearm; lp1 06:51 Follow up: IV Status: Completed infusion; IV Intake: 400ml lp1 04:35 Drug: Meclizine 25 mg Route: PO; lp1 05:55 Follow up: Response: No adverse reaction lp1 04:35 Drug: Aspirin Chewable Tablet 81 mg Route: PO; lp1 05:55 Follow up: Response: No adverse reaction lp1 04:35 Drug: Zofran (Ondansetron) 4 mg Route: IVP; Site: right forearm; lp1 05:55 Follow up: Response: No adverse reaction lp1 Disposition Summary: 03/16/21 05:20 Discharge Ordered Location: Home sybil Problem: new sybil Symptoms: have improved sybil Condition: Stable sybil Diagnosis - Dizziness and giddiness sybil - Headache sybil - Tobacco abuse counseling sybil - Tobacco use sybil Followup: sybil - With: Private Physician - When: 2 - 3 days - Reason: Recheck today's complaints, Continuance of care, Re-evaluation by your physician Followup: sybil - With: - When: 2 - 3 days - Reason: Recheck today's complaints, Re-evaluation by your physician Discharge Instructions: - Discharge Summary Sheet sybil - Dizziness sybil - Steps to Quit Smoking sybil - Health Risks of Smoking sybil - Aspirin and Your Heart sybil - Dizziness, Mnbb-en-Reau [facility] Forms: - Medication Reconciliation Form sybil - Thank You Letter sybil - Antibiotic Education sybil - Prescription Opioid Use [facility] Prescriptions: - Meclizine 25 mg Oral Tablet - take 1 tablet by ORAL route every 8 hours As needed; 30 tablet; Refills: 0, sybil Product Selection Permitted - Zofran 4 mg Oral Tablet - take 1 tablet by ORAL route every 12 hours As needed; 20 tablet; Refills: 0, [facility] Product Selection Permitted Signatures: Dispatcher [employer] Darrell Dia MD MD cha Pena, Laura, RN RN lp1
--- NOTE | 2021-03-16 05:21 | ER ---
Nurse's Notes [facility] Name: Dayami Espinosa Age: 51 yrs Sex: Female : 1970 Arrival Date: 03/16/2021 Time: 03:19 Bed 7 Private MD: Diagnosis: Dizziness and giddiness;Headache;Tobacco abuse counseling;Tobacco use Presentation: 03/16 03:27 Chief complaint: EMS states: Called for patient reported dizziness x 1 week. lp1 Coronavirus screen: At this time, the client does not indicate any symptoms associated with coronavirus-19. Ebola Screen: No symptoms or risks identified at this time. Initial Sepsis Screen: Does the patient meet any 2 criteria? No. Patient's initial sepsis screen is negative. Does the patient have a suspected source of infection? No. Patient's initial sepsis screen is negative. Risk Assessment: Do you want to hurt yourself or someone else? Patient reports no desire to harm self or others. Onset of symptoms was March 16, 2021. 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 - Social history:: Smoking status: Patient reports the use of cigarette tobacco products, smokes one pack cigarettes per day. - Family history:: not pertinent. Screenin:33 Abuse screen: Denies threats or abuse. Denies injuries from another. Nutritional lp1 screening: No deficits noted. Tuberculosis screening: No symptoms or risk factors identified. Fall Risk None identified. Assessment: 03:34 General: Appears in no apparent distress. Behavior is calm, cooperative, appropriate lp1 for age. Pain: Complains of pain in left lower quadrant Pain currently is 3 out of 10 on a pain scale. Quality of pain is described as crampy. Neuro: Level of Consciousness is awake, alert, obeys commands, Oriented to person, place, time, situation, Gait is steady, Reports dizziness, since 1 week ago. Cardiovascular: Patient's skin is warm and dry. Respiratory: Respiratory effort is even, unlabored. GI: Abdomen is non-distended. : No signs and/or symptoms were reported regarding the genitourinary system. EENT: No signs and/or symptoms were reported regarding the EENT system. Derm: Skin is intact, Skin is dry, Skin is normal. Musculoskeletal: No deficits noted. 05:07 Reassessment: Patient returned from CT. lp1 05:40 Reassessment: Patient with steady gait, ambulating to bathroom. lp1 06:50 Reassessment: Patient given sandwich and juice on discharge. lp1 Vital Signs: 03:27 BP 126 / 82; Pulse 79; Resp 16; Temp 98.2(O); Pulse Ox 98% on R/A; Weight 48.08 kg (R); lp1 Height 5 ft. 3 in. (160.02 cm); Pain 0/10; 05:55 BP 110 / 76; Pulse 71; Resp 19; Pulse Ox 98% on R/A; lp1 06:37 BP 97 / 69; Pulse 81; Resp 16; Pulse Ox 98% on R/A; lp1 06:50 BP 104 / 73; Pulse 79; Resp 16; Pulse Ox 98% on R/A; lp1 03:27 Body Mass Index 18.78 (48.08 kg, 160.02 cm) lp1 [place] Coma Score: 04:11 Eye Response: spontaneous(4). Verbal Response: oriented(5). Motor Response: obeys sybil commands(6). Total: 15. ED Course: 03:19 Patient arrived in ED. mw2 03:27 Patrizia Vincent, RN is Primary Nurse. lp1 03:29 Triage completed. lp1 03:29 Arm band placed on right wrist. lp1 03:33 Patient has correct armband on for positive identification. Placed in gown. Bed in low lp1 position. senior grant writer on. Pulse ox on. NIBP on. 03:51 Darrell Mc MD is Attending Physician. sybil 04:25 Inserted saline lock: 22 gauge in right forearm, using aseptic technique. Blood ds4 collected. 04:41 Chest Single View XRAY In Process Unspecified. EDMS 05:17 CT Head Brain wo Cont In Process Unspecified. EDCA 05:20 Alexander Polk MD is Referral Physician. [facility] [facility] 06:00 Urine collected: clean catch specimen, blood tinged. lp1 06:36 No provider procedures requiring assistance completed. lp1 06:50 IV discontinued, No redness/swelling at site. Pressure dressing applied. lp1 Administered Medications: 04:35 Drug: NS 0.9% 500 ml Route: IV; Rate: bolus; Site: right forearm; lp1 06:51 Follow up: IV Status: Completed infusion; IV Intake: 400ml lp1 04:35 Drug: Meclizine 25 mg Route: PO; lp1 05:55 Follow up: Response: No adverse reaction lp1 04:35 Drug: Aspirin Chewable Tablet 81 mg Route: PO; lp1 05:55 Follow up: Response: No adverse reaction lp1 04:35 Drug: Zofran (Ondansetron) 4 mg Route: IVP; Site: right forearm; lp1 05:55 Follow up: Response: No adverse reaction lp1 Intake: 06:51 IV: 400ml; Total: 400ml. lp1 Outcome: 05:20 Discharge ordered by MD. [facility] 06:50 Discharged to home ambulatory. lp1 06:50 Condition: good 06:50 Discharge instructions given to patient, Instructed on discharge instructions, follow up and referral plans. medication usage, Demonstrated understanding of instructions, follow-up care, medications, Prescriptions given X 2. 06:51 Patient left the ED. lp1 Addendum: 03/19/2021 08:27 Addendum: Culture Results: Positive urine culture. Patient was not prescribed i w antibiotics at discharge. Report given to THADDEUS for further evaluation and then to physically impaired teacher for follow up with patient. Signatures: Dispatcher [employer] Darrell Dia MD MD cha Williams, Irene, RN Patrizia Mccall RN RN lp1 Hunter Bennett ds4 Marcel Jefferson mw2 Corrections: (The following items were deleted from the chart) 03/16 05:53 03:33 LMP N/A - Post-menopause lp1 lp1
[2021-03-16 05:51] LABS: Urine Appearance TURBID (Clear); Urine Blood ND (Negative); Urine Color RED (Yellow); Urine Glucose ND (Negative); Urine Microscopic Reflex ORDER UMIC; Urine Protein ND (Negative); Urine Urobilinogen ND mg/dL (0.2-1.0); Urine pH ND (5.0-7.0)
[2021-03-16 05:52] LABS: Urine Bilirubin ND (Negative); Urine Specific Gravity ND (1.005-1.030)
[2021-03-16 06:07] LABS: Urine Bacteria >50 /HPF (<20); Urine RBC TNTC /HPF (NONE SEEN)
[2021-03-16 06:11] LABS: Barbiturates NEGATIVE (NEGATIVE); Benzodiazepines NEGATIVE (NEGATIVE); Cocaine NEGATIVE (NEGATIVE); METHAMPHETAM NEGATIVE (NEGATIVE); Methadone NEGATIVE (NEGATIVE); Opiates NEGATIVE (NEGATIVE); Phencyclidine NEGATIVE (NEGATIVE); THC Cannibis NEGATIVE (NEGATIVE)
[2021-03-16 06:59] VITALS: TEMP 98.2; O2SAT 98
[2021-03-16 07:03] VITALS: BP 104/73
--- NOTE | 2021-03-16 07:58 | RAD REPORT ---
EXAM DESCRIPTION: [place] Single View03/16/2021 4:41 am CLINICAL HISTORY: Chest pain COMPARISON: October 2020 FINDINGS: The lungs are hyperaerated. The lungs appear clear of acute infiltrate. The heart is juan l size IMPRESSION: No acute abnormalities displayed
--- NOTE | 2021-03-16 14:36 | RAD REPORT ---
EXAM DESCRIPTION: CT - Head Brain Wo Cont - 03/16/2021 6:04 am CLINICAL HISTORY: 51 years Female Dizziness;Headache TECHNIQUE: Multiple axial CT images of the brain were performed followed by sagittal and coronal rec onstructed images. The CT study is performed according to ALARA (as low as reasonably achievable) or ALARA/IMAGE GENTLY, with automatic adjustment of mA and/or kV according to patient size. Performed on: 03/16/2021 at 5:08 AM Comparisons: 02/28/2021 and 12/05/2018. FINDINGS: Brain: There is no evidence of mass, acute mass effect or midline shift. There are no acut e extra-axial fluid collections. There is no evidence of acute intracranial hemorrhage. The cerebra l sulci and ventricles are prominent consistent with mild cerebral volume loss. There are scattered a reas of decreased attenuation within the subcortical and periventricular white matter most likely due to mild chronic microangiopathy. There is chronic cystic encephalomalacia in the right frontal lobe and involving portions of the right temporal lobe and encephalomalacia along portions of the left occ ipital lobe and posterior left temporal lobe consistent with remote infarcts. There is ex vacuo dilat ation of the frontal horn of the right lateral ventricle secondary to adjacent volume loss. Paranasal Sinuses and Mastoids: There is mild mucosal thickening of the paranasal sinuses. The mastoi d air cells are clear. Orbits: The orbital contents are grossly unremarkable. Bones: No acute osseous abnormalities are identified. There are remote postsurgical changes of the ri ght frontal bone with diffuse thinning along the right frontal bone. Soft Tissues: No focal soft tissue abnormalities are identified. IMPRESSION: 1. No evidence of acute intracranial pathology. 2. Mild cerebral volume loss with findings compatible with chronic microangiopathy. 3. Remote infarcts as described above with associated chronic encephalomalacic changes. 4. Remote postsurgical changes of the right frontal bone with diffuse thinning of the right frontal bone. Electronically signed by: La Nena Keith DO 03/16/2021 5:52 AM OUTSOLE PARAFFINER Due to temporary technical issues with the PACS/Fluency reporting system, reports are being signed by the in house radiologists without review as a courtesy to insure prompt reporting. The interpreting radiologist is fully responsible for the content of the report.
== END 2021-03-16 06:51 | disposition home or self-care (01) ==
LOC: ER 03:19
DX: R51.9 Headache, unspecified (principal); Z72.0 Tobacco use; Z71.6 Tobacco abuse counseling; F31.9 Bipolar disorder, unspecified; Z88.1 Allergy status to other antibiotic agents; Z88.8 Allergy status to other drugs, medicaments and biological substances
CPT/HCPCS: 36415; 70450; 71045; 80053; 80164; 80307; 81003; 81015; 81025; 84484; 85025; 87077; 87086; 87088; 87186; 93005; 96361; 96374; 99285; J2405; J7040; J8597

== ENCOUNTER 2021-11-01 00:17 | Emergency (ER) | payer SELFPAY ==
[2021-11-01 01:55] LABS: Absolute Lymphocytes (CBC) 2.1 K/uL (0.7-4.9); Hematocrit 36.4 % (36.0-45.0); Lymphocytes % 32.1 % (15.3-44.8); MCV 83.7 fL (80-100); MPV 8.8 fL (7.6-11.3); RBC Red Blood Cell Count 4.34 M/uL (3.86-4.86)
[2021-11-01 02:11] LABS: Albumin 3.2 g/dL (3.4-5.0); Bilirubin Total 0.3 mg/dL (0.2-1.0); Potassium 3.7 mmol/L (3.5-5.1); Protein, Total 6.4 g/dL (6.4-8.2)
[2021-11-01] MEDS ORDERED: NA CHLORIDE 0.9% 1,000 ML ONE (04:08)
[2021-11-01 05:53] LABS: Urine Blood 3+ (Negative); Urine Glucose Negative (Negative); Urine Protein 2+ (Negative); Urine pH 5.5 (5.0-7.0)
[2021-11-01] MEDS ORDERED: CEFTRIAXONE 1000 MG/VIAL ONE (06:38)
[2021-11-01] MEDS ORDERED: NA CHLORIDE 0.9% 50 ML ONE (06:38)
[2021-11-01 06:44] LABS: Urine Bacteria >50 /HPF (<20)
--- NOTE | 2021-11-01 06:53 | EDPHYS ---
Physician Documentation [facility] Name: Dayami Espinosa Age: 51 yrs Sex: Female : 1970 Arrival Date: 11/01/2021 Time: 00:21 Bed 5 Private MD: ED Physician Jaylen Otto HPI: 11/01 04:33 This 51 yrs old Female presents to ER via Ambulatory with complaints of Abdominal Pain. kdr 04:33 The patient presents with abdominal pain in the left lower quadrant. Onset: The kdr symptoms/episode began/occurred gradually, 1 week(s) ago. The symptoms do not radiate. Associated signs and symptoms: none. The symptoms are described as achy, crampy, intermittent. Modifying factors: The symptoms are alleviated by nothing, the symptoms are aggravated by nothing. Severity of pain: At its worst the pain was mild just prior to arrival, in the emergency department the pain is unchanged. The patient has not experienced similar symptoms in the past. The patient has not recently seen a physician. 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 - Social history:: Smoking status: Patient reports the use of cigarette tobacco products, smokes one pack cigarettes per day. Patient uses alcohol, occasionally. ROS: 04:34 Constitutional: Negative for fever, chills, and weight loss, Eyes: Negative for injury, kdr pain, redness, and discharge, ENT: Negative for injury, pain, and discharge, Neck: Negative for injury, pain, and swelling, Cardiovascular: Negative for chest pain, palpitations, and edema, Respiratory: Negative for shortness of breath, cough, wheezing, and pleuritic chest pain, Back: Negative for injury and pain, : Negative for injury, bleeding, discharge, and swelling, MS/Extremity: Negative for injury and deformity, Skin: Negative for injury, rash, and discoloration, Neuro: Negative for headache, weakness, numbness, tingling, and seizure activity. Psych: Negative for depression, anxiety, suicide ideation, homicidal ideation, and hallucinations, Allergy/Immunology: Negative for hives, rash, and allergies, Endocrine: Negative for neck swelling, polydipsia, polyuria, polyphagia, and marked weight changes, Hematologic/Lymphatic: Negative for swollen nodes, abnormal bleeding, and unusual bruising. 04:34 Abdomen/GI: Positive for abdominal pain, nausea, Negative for black/tarry stool, rectal pain, rectal bleeding, bowel incontinence. Exam: 04:34 Constitutional: This is a well developed, well nourished patient who is awake, alert, kdr and in no acute distress. Head/Face: Normocephalic, atraumatic. Eyes: Pupils equal round and reactive to light, extra-ocular motions intact. Lids and lashes normal. Conjunctiva and sclera are non-icteric and not injected. Cornea within normal limits. Periorbital areas with no swelling, redness, or edema. Neck: Trachea midline, no thyromegaly or masses palpated, and no cervical lymphadenopathy. Supple, full range of motion without nuchal rigidity, or vertebral point tenderness. No Meningismus. Chest/axilla: Normal chest wall appearance and motion. Nontender with no deformity. No lesions are appreciated. Cardiovascular: Regular rate and rhythm with a normal S1 and S2. No gallops, murmurs, or rubs. Normal PMI, no JVD. No pulse deficits. Respiratory: Lungs have equal breath sounds bilaterally, clear to auscultation and percussion. No rales, rhonchi or wheezes noted. No increased work of breathing, no retractions or nasal flaring. Back: No spinal tenderness. No costovertebral tenderness. Full range of motion. Skin: Warm, dry with normal turgor. Normal color with no rashes, no lesions, and no evidence of cellulitis. MS/ Extremity: Pulses equal, no cyanosis. Neurovascular intact. Full, normal range of motion. Neuro: Awake and alert, GCS 15, oriented to person, place, time, and situation. Cranial nerves II-XII grossly intact. Motor strength 5/5 in all extremities. Sensory grossly intact. Cerebellar exam normal. Normal gait. Psych: Awake, alert, with orientation to person, place and time. Behavior, mood, and affect are within normal limits. 04:34 Abdomen/GI: Inspection: abdomen appears normal, Bowel sounds: active, all quadrants, Palpation: soft, mild abdominal tenderness, in the left lower quadrant. Vital Signs: 00:26 BP 133 / 87; Pulse 81; Resp 18; Temp 98.1; Pulse Ox 100% on R/A; Weight 49.9 kg; Height tw5 5 ft. 3 in. (160.02 cm); Pain 10/10; 01:50 BP 127 / 85; Pulse 67; Resp 18; Pulse Ox 96% on R/A; lp1 04:04 BP 118 / 83; Pulse 75; Resp 18; Pulse Ox 97% on R/A; lp1 05:53 BP 113 / 74; Pulse 65; Resp 18; Pulse Ox 95% on R/A; lp1 07:03 BP 100 / 64; Pulse 65; Resp 18; Pulse Ox 96% on R/A; lp1 00:26 Body Mass Index 19.49 (49.90 kg, 160.02 cm) tw5 MDM: 04:34 Data reviewed: vital signs, nurses notes, lab test result(s), radiologic studies. kdr Counseling: I had a detailed discussion with the patient and/or guardian regarding: the historical points, exam findings, and any diagnostic results supporting the discharge/admit diagnosis, lab results, radiology results, the need for outpatient follow up. 06:53 Patient medically screened. kdr 11/01 00:46 Order name: CBC with Diff; Complete Time: 03:03 kdr 11/01 00:46 Order name: CMP; Complete Time: 03:03 kdr 11/01 00:46 Order name: Lipase; Complete Time: 03:03 kdr 11/01 05:53 Order name: Urine Dipstick-Ancillary; Complete Time: 06:19 EDMS 11/01 06:12 Order name: Urine Microscopic Only lp1 11/01 06:12 Order name: Urine Culture lp1 11/01 00:46 Order name: IV Saline Lock; Complete Time: 01:51 kdr 11/01 00:46 Order name: Labs collected and sent; Complete Time: 01:51 kdr 11/01 01:27 Order name: CT Abd/Pelvis - IV Contrast Only kdr 11/01 03:46 Order name: Urine Dipstick-Ancillary (obtain specimen); Complete Time: 05:53 kdr Administered Medications: 04:04 Drug: NS 0.9% 1000 ml Route: IV; Rate: 1000 ml; Site: right forearm; lp1 05:35 Follow up: IV Status: Completed infusion; IV Intake: 1000ml lp1 06:39 Drug: Rocephin - (cefTRIAXone) 1 grams Route: IVPB; Infused Over: 30 mins; Site: right lp1 forearm; 07:05 Follow up: IV Status: Completed infusion; IV Intake: 50ml lp1 Disposition Summary: 11/01/21 06:53 Discharge Ordered Location: Home kdr Problem: new kdr Symptoms: have improved kdr Condition: Stable kdr Diagnosis - Lower abdominal pain, unspecified kdr - UTI/ Urinary tract infection, site not specified kdr Followup: kdr - With: Private Physician - When: 2 - 3 days - Reason: If symptoms return, Further diagnostic work-up, Recheck today's complaints, Continuance of care, Re-evaluation by your physician Discharge Instructions: - Discharge Summary Sheet kdr - Urinary Tract Infection, Adult, [id number] kdr Forms: - Medication Reconciliation Form kdr - Thank You Letter kdr - Antibiotic Education kdr Prescriptions: - Bactrim DS 800-160 mg Oral Tablet - take 1 tablet by ORAL route every 12 hours for 7 days; 14 tablet; Refills: 0, kdr Product Selection Permitted Signatures: Dispatcher [employer] Jaylen Montenegro MD MD kdr Patrizia Vincent RN RN lp1 Lauren Leonardo 5 Sylvie Dillon PA PA sb3
--- NOTE | 2021-11-01 06:53 | ER ---
Nurse's Notes [facility] Name: Dayami Espinosa Age: 51 yrs Sex: Female : 1970 Arrival Date: 11/01/2021 Time: 00:21 Bed 5 Private MD: Diagnosis: Lower abdominal pain, unspecified;UTI/ Urinary tract infection, site not specified Presentation: 11/01 00:26 Chief complaint: Patient states: "I am having lower abdomen pain, it has been going on tw5 for two months. It is over the top pain, but I have just been putting off coming in.". Coronavirus screen: Vaccine status: Patient reports being unvaccinated. Ebola Screen: Patient negative for fever greater than or equal to 101.5 degrees Fahrenheit, and additional compatible Ebola Virus Disease symptoms Patient denies exposure to infectious person. Patient denies travel to an Ebola-affected area in the 21 days before illness onset. Initial Sepsis Screen: Does the patient meet any 2 criteria? No. Patient's initial sepsis screen is negative. Does the patient have a suspected source of infection? No. Patient's initial sepsis screen is negative. Risk Assessment: Do you want to hurt yourself or someone else? Patient reports no desire to harm self or others. Onset of symptoms is unknown. 00:26 Method Of Arrival: Ambulatory tw 00:26 Acuity: JAZMIN 3 tw5 Triage Assessment: 00:28 General: Appears uncomfortable, slender, Behavior is appropriate for age, agitated. tw Pain: Complains of pain in left lower quadrant Pain currently is 10 out of 10 on a pain scale. Quality of pain is described as stabbing. GI: Reports nausea, Patient currently denies diarrhea. 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 - Social history:: Smoking status: Patient reports the use of cigarette tobacco products, smokes one pack cigarettes per day. Patient uses alcohol, occasionally. Screenin:30 Abuse screen: Denies threats or abuse. Denies injuries from another. Nutritional tw5 screening: No deficits noted. Tuberculosis screening: No symptoms or risk factors identified. Fall Risk None identified. Assessment: 01:45 General: Appears in no apparent distress. Behavior is appropriate for age. Pain: lp1 Complains of pain in suprapubic area Pain currently is 6 out of 10 on a pain scale. Quality of pain is described as aching. Neuro: Level of Consciousness is awake, alert, obeys commands, Oriented to person, place, time, situation. Cardiovascular: Patient's skin is warm and dry. Respiratory: Respiratory effort is even, unlabored. GI: Abdomen is flat, Bowel sounds present X 4 quads. Abdomen is tender to palpation in suprapubic area. : No signs and/or symptoms were reported regarding the genitourinary system. EENT: No signs and/or symptoms were reported regarding the EENT system. Derm: Skin is intact, Skin is dry, Skin is normal. Musculoskeletal: No deficits noted. 04:03 Reassessment: Patient informed of need for urine specimen; Patient states unable to lp1 give urine specimen at this time, continues to close eyes and rest; Provider notified. 05:36 Reassessment: Patient woken up, ambulating to bathroom to provide urine sample. lp1 07:03 Reassessment: Patient appears in no apparent distress at this time. Patient woken up lp1 from sleep; given food and drink by request; understands discharge instructions. Vital Signs: 00:26 BP 133 / 87; Pulse 81; Resp 18; Temp 98.1; Pulse Ox 100% on R/A; Weight 49.9 kg; Height tw5 5 ft. 3 in. (160.02 cm); Pain 10/10; 01:50 BP 127 / 85; Pulse 67; Resp 18; Pulse Ox 96% on R/A; lp1 04:04 BP 118 / 83; Pulse 75; Resp 18; Pulse Ox 97% on R/A; lp1 05:53 BP 113 / 74; Pulse 65; Resp 18; Pulse Ox 95% on R/A; lp1 07:03 BP 100 / 64; Pulse 65; Resp 18; Pulse Ox 96% on R/A; lp1 00:26 Body Mass Index 19.49 (49.90 kg, 160.02 cm) tw5 ED Course: 00:21 Patient arrived in ED. ja2 00:28 Triage completed. tw5 00:28 Arm band placed on left wrist. tw5 00:45 Jaylen Otto MD is Attending Physician. kdr 01:50 Patrizia Vincent, RN is Primary Nurse. lp1 01:51 Inserted saline lock: 22 gauge in right forearm, using aseptic technique. lp1 02:05 Patient has correct armband on for positive identification. lp1 02:25 CT Abd/Pelvis - IV Contrast Only In Process Unspecified. EDMS 04:04 No provider procedures requiring assistance completed. lp1 05:53 Urine collected: clean catch specimen, tea colored. lp1 07:04 IV discontinued, No redness/swelling at site. Pressure dressing applied. lp1 Administered Medications: 04:04 Drug: NS 0.9% 1000 ml Route: IV; Rate: 1000 ml; Site: right forearm; lp1 05:35 Follow up: IV Status: Completed infusion; IV Intake: 1000ml lp1 06:39 Drug: Rocephin - (cefTRIAXone) 1 grams Route: IVPB; Infused Over: 30 mins; Site: right lp1 forearm; 07:05 Follow up: IV Status: Completed infusion; IV Intake: 50ml lp1 Medication: 01:50 VIS not applicable for this client. lp1 Intake: 05:35 IV: 1000ml; Total: 1000ml. lp1 07:05 IV: 50ml; Total: 1050ml. lp1 Outcome: 06:53 Discharge ordered by . kdr 07:05 Discharged to home ambulatory. lp1 07:05 Condition: good 07:05 Discharge instructions given to patient, Instructed on discharge instructions, follow up and referral plans. medication usage, Demonstrated understanding of instructions, follow-up care, medications, Prescriptions given X 1. 07:05 Patient left the ED. lp1 Signatures: Dispatcher [employer] EDMS Jaylen Otto MD MD kdr Patrizia Vincent, RN RN lp1 Sweetie Amezquita Lauren Rueda tw5
[2021-11-01 07:29] VITALS: TEMP 98.1
[2021-11-01 07:39] VITALS: BP 100/64; O2SAT 96
--- NOTE | 2021-11-02 14:11 | RAD REPORT ---
EXAM DESCRIPTION: CT - Abdomen Pelvis W Contrast - 11/01/2021 6:45 am CLINICAL HISTORY: The patient is 51 years old and is Female; LLQ abdominal pain TECHNIQUE: Axial computed tomography images of the abdomen and pelvis with intravenous contrast. S agittal and coronal reformatted images were created and reviewed. This CT exam was performed using one or more of the following dose reduction techniques: automated exposure control, adjustment of t he mA and/or kV according to patient size, and/or use of iterative reconstruction technique. COMPARISON: No relevant prior studies available. FINDINGS: Lung bases: Unremarkable. No mass. No consolidation. ABDOMEN: Liver: Unremarkable. No mass. Gallbladder and bile ducts: Unremarkable. No calcified stones. No ductal dilation. Pancreas: Unremarkable. No mass. No ductal dilation. Spleen: Unremarkable. No splenomegaly. Adrenals: Unremarkable. No mass. Kidneys and ureters: Unremarkable. No solid mass. No hydronephrosis. Stomach and bowel: Unremarkable. No obstruction. No mucosal thickening. PELVIS: Appendix: No findings to suggest acute appendicitis. Bladder: Unremarkable. No mass. Reproductive: 1.5 cm left ovarian/adnexal cyst. 1.7 cm right ovarian cyst. ABDOMEN and PELVIS: Intraperitoneal space: Unremarkable. No free air. No significant fluid collection. Bones/joints: No acute fracture. No dislocation. Soft tissues: Unremarkable. Vasculature: Unremarkable. No abdominal aortic aneurysm. Lymph nodes: Unremarkable. No enlarged lymph nodes. IMPRESSION: No acute finding in the abdomen/pelvis. Electronically signed by: Eitan Muñiz MD 11/01/2021 3:03 AM CDT Due to temporary technical issues with the PACS/Fluency reporting system, reports are being signed by the in house radiologists without review as a courtesy to insure prompt reporting. The interpreting radiologist is fully responsible for the content of the report.
== END 2021-11-01 07:05 | disposition home or self-care (01) ==
LOC: ER 00:17
DX: N39.0 Urinary tract infection, site not specified (principal); F31.70 Bipolar disorder, currently in remission, most recent episode unspecified; F17.210 Nicotine dependence, cigarettes, uncomplicated; Z88.8 Allergy status to other drugs, medicaments and biological substances
CPT/HCPCS: 36415; 74177; 80053; 81003; 81015; 83690; 85025; 87077; 87086; 87088; 87186; 96361; 96365; 99284; J7030; Q9967

== ENCOUNTER 2022-01-25 17:22 | Emergency (ER) | payer SELFPAY ==
--- OUTSIDE RECORDS SUMMARY | 2022-01-25 17:28 | XMS REPORT | Continuity of Care Document ---
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 cm [facility] Body weight 2020-09-24 05:34:00 48.081 kg [facility] BMI 2020-09-24 05:34:00 18.78 kg/m2 [facility] Oxygen saturation in 2020-09-24 05:34:00 100 /min [facility] blood by [place] [employer] [facility] Pulse oximetry Branch Systolic blood 2018-11-26 08:35:00 136 mm[Hg] [facility] Diastolic blood 2018-11-26 08:35:00 61 mm[Hg] [facility] Heart rate 2018-11-26 08:35:00 84 /min [facility] Body temperature 2018-11-26 08:35:00 36.94 Nakia [facility] Respiratory rate 2018-11-26 08:35:00 18 /min [facility] Body weight 2018-11-26 08:35:00 48.081 kg [facility] BMI 2018-11-26 08:35:00 18.78 kg/m2 [facility] Oxygen saturation in 2018-11-26 08:35:00 99 /min [facility] Arterial blood by [facility] richard Pulse oximetry Branch Systolic blood 2018-11-26 08:35:00 136 mm[Hg] [facility] Diastolic blood 2018-11-26 08:35:00 61 mm[Hg] [facility] Heart rate 2018-11-26 08:35:00 84 /min [facility] Body temperature 2018-11-26 08:35:00 36.94 Nakia [facility] Respiratory rate 2018-11-26 08:35:00 18 /min [facility] Body weight 2018-11-26 08:35:00 48.081 kg [facility] BMI 2018-11-26 08:35:00 18.78 kg/m2 [facility] Oxygen saturation in 2018-11-26 08:35:00 99 /min [facility] Ar[facility]ial blood by [place] [employer] [facility] Pulse oximetry Branch Systolic blood 2018-11-04 06:38:00 119 mm[Hg] [facility] Diastolic blood 2018-11-04 06:38:00 73 mm[Hg] [facility] Heart rate 2018-11-04 06:38:00 89 /min [facility] Body temperature 2018-11-04 06:38:00 36.67 Nakia [facility] Respiratory rate 2018-11-04 06:38:00 20 /min [facility] Body height 2018-11-04 06:38:00 160 cm [facility] Body weight 2018-11-04 06:38:00 47.628 kg [facility] BMI 2018-11-04 06:38:00 18.60 kg/m2 [facility] Oxygen saturation in 2018-11-04 06:38:00 100 /min [facility] Arterial blood by [facility] Pulse oximetry Branch Systolic blood 2018-11-04 06:38:00 119 mm[Hg] [facility] Diastolic blood 2018-11-04 06:38:00 73 mm[Hg] [facility] Heart rate 2018-11-04 06:38:00 89 /min [facility] Body temperature 2018-11-04 06:38:00 36.67 Nakia [facility] Respiratory rate 2018-11-04 06:38:00 20 /min [facility] Body height 2018-11-04 06:38:00 160 cm [facility] Body weight 2018-11-04 06:38:00 47.628 kg [facility] BMI 2018-11-04 06:38:00 18.60 kg/m2 [facility] Oxygen saturation in 2018-11-04 06:38:00 100 /min [facility] Arterial blood by [facility] Pulse oximetry Branch Temperature Oral (F) 2018-04-14 19:01:00 98.2 F [facility] [place] Systolic (mm Hg) 2018-04-14 16:00:00 [place] [facility] [place] Diastolic (mm Hg) 2018-04-14 16:00:00 [facility] [place] Respitory Rate 2018-04-14 16:00:00 [facility] [place] Systolic (mm Hg) 2018-04-14 15:00:00 [place] [facility] [place] Diastolic (mm Hg) 2018-04-14 15:00:00 [facility] [place] Respitory Rate 2018-04-14 15:00:00 [facility] [place] Systolic (mm Hg) 2018-04-14 14:00:00 Wagner [facility] [place] Diastolic (mm Hg) 2018-04-14 14:00:00 [facility] [place] Respitory Rate 2018-04-14 14:00:00 [facility] [place] Temperature Oral (F) 2018-04-14 13:35:00 97.2 F [facility] [place] Temperature Oral (F) 2018-04-14 10:00:00 97.6 F [facility] [place] Heart Rate 2018-04-14 03:11:00 [facility] [place] Heart Rate 2018-04-14 01:02:00 [facility] [place] Weight 2018-04-13 19:53:00 [facility] [place] Height 2018-04-13 19:53:00 160.02 cm [facility] [place] BMI Calculated 2018-04-13 19:53:00 [facility] [place] Heart Rate 2018-04-13 19:53:00 [facility] [place] Systolic (mm Hg) 2018-01-31 19:28:00 Wagner [facility] [place] Diastolic (mm Hg) 2018-01-31 19:28:00 [facility] [place] Heart Rate 2018-01-31 19:28:00 [facility] [place] Respitory Rate 2018-01-31 19:28:00 [facility] [place] Weight 2018-01-31 19:28:00 [facility] [place] Temperature Oral (F) 2018-01-31 19:28:00 97.9 F [facility] Systolic (mm Hg) 2018-01-31 16:00:00 [facility] [place] Diastolic (mm Hg) 2018-01-31 16:00:00 [facility] [place] Respitory Rate 2018-01-31 16:00:00 [facility] [place] Respitory Rate 2018-01-31 15:07:00 [facility] [place] Systolic (mm Hg) 2018-01-31 15:07:00 [place] [facility] [place] Diastolic (mm Hg) 2018-01-31 15:07:00 [facility] [place] Respitory Rate 2018-01-31 14:02:00 [facility] [place] Systolic (mm Hg) 2018-01-31 14:02:00 [place] [facility] [place] Diastolic (mm Hg) 2018-01-31 14:02:00 [facility] [place] Temperature Oral (F) 2018-01-31 10:46:00 98.6 F [facility] Heart Rate 2018-01-31 10:46:00 [facility] [place] Systolic (mm Hg) 2017-06-28 14:36:00 [facility] [place] Diastolic (mm Hg) 2017-06-28 14:36:00 [facility] [place] Temperature Oral (F) 2017-06-28 14:36:00 98.1 F [facility] [place] Respitory Rate 2017-06-28 14:36:00 [facility] [place] Heart Rate 2017-06-28 14:36:00 [facility] [place] Respitory Rate 2017-06-28 09:31:00 [facility] [place] Temperature Oral (F) 2017-06-28 09:31:00 97.9 F [facility] [place] Weight 2017-06-28 09:31:00 [facility] [place] Heart Rate 2017-06-28 09:31:00 [facility] [place] Systolic (mm Hg) 2017-06-28 09:31:00 [place] [facility] [place] Diastolic (mm Hg) 2017-06-28 09:31:00 [facility] [place] Procedures Procedure Date / Time Performing Clinician Source Performed URINALYSIS 2022-01-20 05:18:00 Ministerio Krause [facility] URINE DRUG (IMMUNOASSAY) 2022-01-20 05:18:00 Ministerio Krause [facility] DRUG Medical [facility] SCREEN W/O REFLEX CONSENT/REFUSAL FOR 2022-01-20 05:05:26 Doctor Unassigned, No [facility] [place] [facility] URINALYSIS 2022-01-18 05:36:00 Tahir Rockwell [facility] CONSENT/REFUSAL FOR 2021-02-20 05:09:04 Doctor Unassigned, No [facility] [place] [facility] Name [facility] NOTICE OF PRIVACY 2020-12-17 05:49:43 Doctor Unassigned, No [facility] [place] [facility] Name [facility] CONSENT/REFUSAL FOR 2020-12-17 05:49:22 Doctor Unassigned, No [facility] [place] [facility] Name [facility] CONSENT/REFUSAL FOR 2020-11-07 08:31:45 Doctor Unassigned, No [facility] [place] [facility] Name [facility] NOTICE OF PRIVACY 2020-09-28 05:36:52 Doctor Unassigned, No [facility] [place] [facility] Name [facility] CONSENT/REFUSAL FOR 2020-09-28 05:31:04 Doctor Unassigned, No [facility] [place] [facility] Name Medical Branch XR ANKLE 3+ VW RIGHT 2020-09-24 05:48:05 Umu Barillas [facility] of [facility] XR FOOT 3+ VW RIGHT 2018-11-26 08:52:27 [facility] 2018-11-26 08:32:51 Doctor Unassigned, No [facility] [place] [facility] Name [facility] Branch CONSENT/REFUSAL FOR 2018-11-26 08:31:21 Doctor Unassigned, No [facility] [place] [facility] Name [facility] EKG-12 LEAD 2018-11-04 07:40:11 David Gil o f [facility] POCT GLUCOSE (AUTOMATED) 2018-11-04 07:33:00 David Gil [facility] versity [facility] [place] CONSENT/REFUSAL FOR 2018-11-04 06:31:07 Doctor Unassigned, No [facility] [place] [facility] Name [facility] Plan of Care Planned Activity Planned Date Details Comments Source Future Scheduled 2021-12-03 HEPATITIS B VACCINES Met [facility] Test 23:04:54 (1 of 3 - 3-dose series) [code = HEPATITIS B VACCINES (1 of 3 - 3-dose series)] Future Scheduled 2021-12-03 COVID-19 VACCINE (#1) [facility] Test 23:04:54 [code = COVID-19 VACCINE (#1)] Future Scheduled 2021-12-03 Screening for [facility] Test 23:04:54 malignant neoplasm of cervix (procedure) [code = 829239218] Future Scheduled 2021-12-03 BREAST CANCER [facility] Test 23:04:54 SCREENING [code = BREAST CANCER SCREENING] Future Scheduled 2021-12-03 COLONOSCOPY SCREENING [facility] Test 23:04:54 [code = COLONOSCOPY SCREENING] Future Scheduled 2021-12-03 SHINGLES VACCINES (1 Met [facility] Test 23:04:54 of 2) [code = SHINGLES VACCINES (1 of 2)] Future Scheduled 2021-12-03 INFLUENZA VACCINE [facility] Test 23:04:54 [code = INFLUENZA VACCINE] Future Scheduled 2021-12-03 COVID-19 VACCINE (#1) [facility] Test 23:04:54 [code = COVID-19 VACCINE (#1)] Future Scheduled 2021-12-03 Screening for [facility] Test 23:04:54 malignant neoplasm of cervix (procedure) [code = 934027413] Future Scheduled 2021-12-03 BREAST CANCER [facility] Test 23:04:54 SCREENING [code = BREAST CANCER SCREENING] Future Scheduled 2021-12-03 COLONOSCOPY SCREENING [facility] Test 23:04:54 [code = COLONOSCOPY SCREENING] Future Scheduled 2021-12-03 SHINGLES VACCINES (1 Met [facility] Test 23:04:54 of 2) [code = SHINGLES VACCINES (1 of 2)] Future Scheduled 2021-12-03 INFLUENZA VACCINE Method [facility] Test 23:04:54 [code = INFLUENZA VACCINE] Future Scheduled 2021-12-03 HEPATITIS B VACCINES Met [facility] Test 23:04:54 (1 of 3 - 3-dose series) [code = HEPATITIS B VACCINES (1 of 3 - 3-dose series)] Future Scheduled 2019-12-04 INFLUENZA VACCINE (#1) [facility] Test 00:00:00 [code = INFLUENZA Medical Ce nter VACCINE (#1)] Future Scheduled [address] [facility] Test 00:00:00 (procedure) [code = Medical Center 41637265] Future Scheduled [address] [facility] Test 00:00:00 [facility] cervix (procedure) [code = 523733365] Future Scheduled [address] [facility] Test 00:00:00 0-64 YRS (1 of 1 - Medical C enter PPSV23) [code = PNEUMOCOCCAL VACCINE 0-64 YRS (1 of 1 - PPSV23)] Future Scheduled [address] [facility] [facility] Test 00:00:00 malignant [facility] breast (procedure) [code = 334914529] Future Scheduled [address] [facility] Test 00:00:00 [facility] colon (procedure) [code = 600485560] Future Scheduled [facility] malignant neoplasm of cervix (procedure) [code = 756043348] Future Scheduled BREAST CANCER [facility] Test SCREENING [code = BREAST CANCER SCREENING] Encounters Start End Encounter Admission Attending Care Care Encounter Source Date/Time Date/Time Type Type Clinicians Facility Department ID 2022-01-20 2022-01-20 Emergency X NELIDA [facility] ERT [id number] Univers 00:07:00 01:39:00 MINISTERIO ity of [facility] 2022-01-20 2022-01-20 Emergency Nelida [facility] [id number] Univers 00:07:00 01:39:00 Ministerio MODI [id number] ity of [place] 4.2.7[address] [place] [id number] 2022-01-18 2022-01-18 Emergency X Bk FU [facility] ERT [id number] Univers 00:31:00 02:27:[address] [facility] [place] 2022-01-18 2022-01-18 Emergency Bk Fu [facility] [id number] Univers 00:31:00 02:27:00 Alva MODI [id number] i ty of [place] [id number] [facility] [id number] [address] 2021-03-03 2021-03-03 [facility] [id number] Univers 02:39:00 03:00:00 Milagros MODI [id number] i ty of [place] 4.2.7.2.686 [facility] [id number] [address] 2021-03-03 2021-03-03 Emergency Elisa MALLOY [facility] ERT [id number] Univers 02:39:00 03:00:[address] [facility] [place] 2021-02-19 2021-02-20 [facility] [id number] Univers 23:23:00 01:46:[address] [facility] [place] 2021-02-19 2021-02-20 Emergency Luli, [facility] [id number] Univers 23:23:00 01:46:00 Tahir MODI [id number] [facility] 4.2.7.2.686 [facility] [id number] [address] 2021-01-12 2021-01-12 Emergency [facility] [id number] Univers 03:24:00 03:55:00 Umu Plascenciaton 350.1.13.10 ity of [place] 4.2.7.2.[address] [facility] [id number] [address] 2021-01-12 2021-01-12 Emergency [facility] [id number] Univers 03:24:00 03:24:[address] [facility] [place] 2021-01-11 2021-01-11 Emergency [facility] [id number] Univers 19:24:00 20:00:00 Umu Modi [id number] ity of [place] 4.2.7.2.686 [facility] [id number] [address] 2021-01-11 2021-01-11 Emergency [facility]RT [id number] Univers 19:24:00 19:24:[address] [facility] [place] 2020-12-17 2020-12-17 Emergency [facility] [id number] Univers 01:00:00 01:40:00 Milagros Modi [id number] i ty of [place] 4.2.7.2.[address] [facility] [id number] [address] 2020-12-17 2020-12-17 Emergency X [facility] ERT [id number] Univers 00:47:00 00:47:[address] [facility] [place] 2020-11-07 2020-11-07 Emergency [facility] [id number] 03:52:00 06:43:00 Tahir Modi [id number] [place] 4.2.7.2.686 [place] [id number] 2020-11-07 2020-11-07 Emergency [facility] [id number] [facility] 03:52:00 06:43:00 Tahir Modi [id number] ity of [place] 4.2.7.2.686 [facility] [id number] [address] 2020-11-07 2020-11-07 Emergency X [facility] ERT [id number] Univers 03:31:00 03:31:[facility] 2020-09-27 2020-09-28 Emergency [facility] [id number] 23:09:00 03:14:00 Tahir Modi [id number] [place] 4.2.7.2.686 [place] [id number] [facility] 2020-09-27 2020-09-28 Emergency [facility] [id number] [facility] 23:09:00 03:14:00 Tahir Modi [id number] ity of [place] 4.2.7.2.686 [facility] [id number] [address] 2020-09-27 2020-09-27 Emergency X [facility] ERT [id number] Univers 23:09:00 23:09:00 [facility]IR [facility] 2020-09-24 2020-09-24 Emergency [facility] 1.2.840.114 [id number] 00:36:00 01:37:00 mUu Modi 350.1.13.10 [place] 4.2.7.2.686 [place] [id number] 2020-09-24 2020-09-24 Emergency [facility] 1.2.840.114 [id number] [facility] 00:36:00 01:37:00 Umu Modi 350.1.13.10 ity of [place] 4.2.7.2.686 [facility] [id number] [address] 2020-09-24 2020-09-24 Emergency [facility] ERT [id number] Univers 00:36:00 00:36:[address] [facility] [place] 2018-11-27 2018-11-27 Patient Edilia Gonzalez 1.2.840.114 [id number] 00:00:00 00:00:00 Outreach E [place] 350.1.13.10 [place] 4.2.7.2.686 [id number] [facility] 2018-11-27 2018-11-27 Patient Edilia Gonzalez 1.2.840.114 [id number] [facility] 00:00:00 00:00:00 Outreach E [place] 350.1.13.10 i ty of [place] 4.2.7.2.686 [facility] [id number] [address] 2018-11-26 2018-11-26 Emergency [facility] 1.2.840.114 [id number] 03:43:44 04:30:00 Umu Modi 350.1.13.10 [place] 4.2.7.2.686 [place] [id number] [facility] 2018-11-26 2018-11-26 Emergency [facility] 1.2.840.114 [id number] [facility] 03:43:44 04:30:00 Umu Modi 350.1.13.10 ity of [place] 4.2.7.2.686 [facility] [id number] [address] 2018-11-04 2018-11-04 Emergency [facility] [id number] 02:27:58 03:11:00 David Modi 350.1.13.10 [place] 4.2.7.2.686 [place] [id number] [facility] 2018-11-04 2018-11-04 Emergency [facility] [id number] Univers 02:27:58 03:11:00 David Modi 350.1.13.10 i ty of [place] 4.2.7.2.686 [facility] [id number] [facility] 084 Branch 2018-11-04 2018-11-04 Orders Doctor SELVIN 1.2.840.114 [id number] 00:00:00 00:00:00 Only Unassigned, [place] 350.1.13.10 [place] [facility] 4.2.7.2.686 [id number] 009 2018-11-04 2018-11-04 Orders Doctor SELVIN 1.2.840.114 [id number] Univers 00:00:00 00:00:00 Only Unassigned, HILTON 350.1.13.10 ity of [place] [facility] 4.2.7.2.686 [facility] [id number] [place] [address] Branch 2018-04-17 2018-04-19 Phone nullFlavo MNA [id number] Memoria 19:55:00 05:59:59 Message r Neurosurger 00 l y [facility] 2018-04-17 2018-04-19 Phone nullFlavo MNA [id number] Memoria 19:55:00 05:59:59 Message r Neurosurger 00 l y [facility] 2018-04-17 2018-04-18 Outpatient MISCHER MISCHER [id number] 13:55:00 23:59:59 00 2018-04-13 2018-04-14 Inpatient nullFlavo [facility] [id number] Memoria 19:48:00 19:15:[address] 2018-04-13 2018-04-14 Inpatient nullFlavo [facility] [id number] Memoria 19:48:00 19:15:[address] 2018-04-13 2018-04-14 Outpatient René [facility] [id number] 13:48:00 13:15:00 Jodie 10 2018-01-31 2018-01-31 Emergency nullFlavo [facility] [id number] Memoria 19:12:00 23:03:00 r [place] [facility] 2018-01-31 2018-01-31 Emergency nullFlavo [facility] [id number] Memoria 19:12:00 23:03:00 r [place] 01 l [facility] 2018-01-31 2018-01-31 Outpatient Diego [facility] [id number] 14:12:00 18:03:00 Hardik [place] 2018-01-31 2018-01-31 Emergency nullFlavo [facility] [id number] Memoria 10:46:00 18:01:00 r [place] 03 [facility] 2018-01-31 2018-01-31 Emergency nullFlavo [facility] [id number] Memoria 10:46:00 18:01:00 r [place] 03 [facility] 2018-01-31 2018-01-31 Outpatient Patricia, [facility] [id number] 05:46:00 13:01:00 Kel Tammi 2017-07-02 2017-07-02 Emergency E [facility] [id number] [facility] 08:16:00 08:16:00 [facility] 2017-06-28 2017-06-28 Emergency nullFlavo [facility] [id number] Memoria 09:28:00 14:45:00 r [place] 00 [facility] 2017-06-28 2017-06-28 [facility] [id number] Memoria 09:28:00 14:45:00 r [place] 00 [facility] 2017-06-28 2017-06-28 Outpatient Glenny, [facility] [id number] 04:28:00 09:45:00 Semaj Maximino 00 Results Test Description Test Test Results Result Source Time Comments Comments XR FOOT 3+ VW 2018-11- No acute osseous Univ ersity of RIGHT 25 injury identified. 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 COMPARISON: None. FINDINGS: No fracture or dislocation.?Surroundin g soft tissues are unremarkable.There is severe joint space narrowing of the first metatarsophalangealjoin t. Vtmb, Radiant Results Inft User - 11/26/2018 4:16 [...] Comme nts POCT GLU (test code = 8579877426) 111 mg/dL 70-110 H Lab Interpretation (test code = 69966-7) [facility] [id number] 08:06:00 Test Item Value Reference Range Interpretation Comments SCAN RESULT (test code = 1270362) CELIAC DISEASE PROFILE Refer to Celiac AUTOVERIFICATION (QUEST) Disease Panel (test code = 2574505) results. CT, [id number] 19:42:00Only need IV contrast, not POFINAL REPORT TECHNIQUE: CT of the abdomen and pelvis WITH intravenous contrast a nd WITHOUT oral contrast. Dose modulation, iterative reconstruction, [...] dilatation. ADRENALS: No adrenal nodules.KIDNEYS/URETERS: No hydronephrosis, stones, ormasses.PELVIC ORGANS/BLADDER: Unremarkable. PERITONEUM/RETROPERITONEUM: Small volume free fluid in the right lower quadrant.LYMPH NODES: No lymphadenopathy.VESSELS: Unremarkable. GI TRACT: The video capsule is [...] likely reactive to the partial small bowel obstru ction. Signed: Doyle Simeon MDReport Verified Date/Time: 09/05/2018 19:42:13 Reading Location: [facility] C013W Consult Reading Room RAD, ABDOMEN/KUB, 1 VIEW [id number] 15:30:00Reason for exam:->look for retained video capsuleAddendum BeginsREPORT STATUS:A Addendum:The video capsule is seen projected over the right iliac wing. It could be in the distal ileum versus large bowel. If in exact location is needed. CT scan will be necessary. End of addendum. Signed: Reza Huitroneport Verified Date/Time: 09/05/2018 15:30:35 Reading Location: [facility] Radiology Reading RoomAddendum EndsFINAL REPORT TECHNIQUE: Supine radiograph of the abdomen dated 09/05/2018 HISTORY: Evaluate for retained video capsule. COMPARISON: None IMPRESSION:No air-filled, dilated loops of bowel to suggest obstruction. No free intraperitoneal air. No abnormal soft tissue mass. No radiodense foreign body visualized. Bones are unremarkable. Signed: Reza Huitroneport Verified Date/Time: 09/05/2018 14:53:33 Reading Location: [facility] Radiology Reading Room GI PATHOGEN PROFILE BY [id number] 10:43:00 Test Item Value Reference Range Interpretation [...] detected LT/ST BY PCR (test code = 9889956) SHIGA-LIKE TOXIN-PRODUCING E. Not detected Not detected COLI (STEC) STX1/STX2 (test code = 4439050) E. COLI O157 (PCR) (test code = Not detected 20151109) SHIGELLA/ENTEROINVASIVE E. COLI Not detected Not detected (EIEC) BY PCR (test code = 6344445) CRYPTOSPORIDIUM (PCR) (test code Not detected Not detected = 20151111) CYCLOSPORA CAYETANENSIS (PCR) Not detected Not detected (test code = 3851058) ENTAMOEBA HISTOLYTICA (PCR) Not detected Not detected [...] detected Not detected VULNIFICUS) (test code = 1065550) Other viruses, parasites and bacteria not targeted by this PCR panel cannot be excluded; therefore clinical correlation and follow up of serology, culture results, and other molecular studies is required. The results are not intended to be used as the sole means for clinical diagnosis or patient management decisions. This sample was tested at the [facility] using the [employer] Gastrointestinal Panel. It is FDA cleared and has been verified and approved by the [facility] for clinical use. This laboratory is CLIA-certified and College ofAmerican Pathologists (CAP)-accredited to perform high complexity testing.BASIC METABOLIC [id number] 05:42:00 Test Item Value Reference Range Interpretation [...] 0-0 (BEAKER) (test code = 413) C-REACTIVE [id number] 18:59:00 Test Item Value Reference Range Interpretation Comments C-REACTIVE PROTEIN (BEAKER) (test 0.38 mg/dL 0.00-0.50 code = 676) [id number] 05:48:00 Test Item Value Reference Range Interpretation Comments FERRITIN (BEAKER) (test code = 361) 13 ng/mL 5-275 BASIC METABOLIC [id number] 05:27:00 Test Item Value Reference Range Interpretation [...] 0-0 (BEAKER) (test code = 413) RETICULOCYTE [id number] 05:05:00 Test Item Value Reference Range Interpretation Comments RETICULOCYTE COUNT PCT (BEAKER) (test 1.1 % 0.5-1.7 code = 575) SCREEN, [id number] 15:17:00 Test Item Value Reference Range Interpretation Comments TEST URINE (BEAKER) (test Negative code = 583) BASIC METABOLIC [id number] 04:53:00 Test Item Value Reference Range Interpretation [...] 0-0 (BEAKER) (test code = 413) CHEM [id number] 03:57:00 Test Item Value Reference Range Interpretation Comments Globulin (test code = Globulin) 3.0 2.7-4.2 Belanit [id number] 03:57:00 Test Item Value Reference Range Interpretation Comments Bili Indirect (test 0.3 See_Comment [Automa ann marie message] The code = Bili Indirect) system which generated this result tra nsmitted reference range : <=1.0. The reference r corazon was not used to int erpret this result as normal/abnormal . Belanit [id number] 03:57:00 Test Item Value Reference Range Interpretation Comments A/G Ratio (test code = A/G Ratio) 1.0 1 0.7-1.6 [facility]2019-01-11 03:57:00 Test Item Value Reference Range Interpretation Comments Bili Direct (test code 0.1 See_Comment [Aut omated message] The = Bili Direct) system which generated this result tra nsmitted reference range : <=0.3. The reference r corazon was not used to int erpret this result as juan l/abnormal. [facility] [id number] 03:57:00 Test Item Value Reference Range Interpretation Comments Bili Total (test code = Bili Total) 0.4 0.2-1.3 [facility]2019-01-11 03:57:00 Test Item Value Reference Range Interpretation Comments Alk Phos (test code = Alk Phos) 49 39-136 [facility]2019-01-11 03:57:00 Test Item Value Reference Range Interpretation Comments AST (test code = AST) 24 See_Comment [Auto mated message] The system which ge nerated this result transmit ann marie reference range : <=37. The reference range was not used to interpr et this result as juan l/abnormal. [facility] [id number] 03:57:00 Test Item Value Reference Range Interpretation Comments Total Protein (test code = Total 6.0 6.4-8.4 Protein) [facility]2019-01-11 03:57:00 Test Item Value Reference Range Interpretation Comments ALT (test code = ALT) 19 See_Comment [Auto mated message] The system which ge nerated this result transmit ann marie reference range : <=65. The reference range was not used to interpr et this result as juan l/abnormal. [facility] [id number] 03:57:00 Test Item Value Reference Range Interpretation Comments Albumin Lvl (test code = Albumin Lvl) 3.0 3.5-5.0 [facility] [id number] 03:57:00 Test Item Value Reference Range Interpretation Comments Globulin (test code = Globulin) 3.0 2.7-4.2 [facility] [id number] 03:57:00 Test Item Value Reference Range Interpretation Comments Bili Indirect (test 0.3 See_Comment [Automa ann marie message] The code = Bili Indirect) system which generated this result tra nsmitted reference range : <=1.0. The reference r corazon was not used to int erpret this result as normal/abnormal . [facility]2019-01-11 03:57:00 Test Item Value Reference Range Interpretation Comments A/G Ratio (test code = A/G Ratio) 1.0 1 0.7-1.6 [facility]2019-01-11 03:57:00 Test Item Value Reference Range Interpretation Comments Bili Direct (test code 0.1 See_Comment [Aut omated message] The = Bili Direct) system which generated this result tra nsmitted reference range : <=0.3. The reference r corazon was not used to int erpret this result as juan l/abnormal. [facility]2019-01-11 03:57:00 Test Item Value Reference Range Interpretation Comments Bili Total (test code = Bili Total) 0.4 0.2-1.3 [facility]2019-01-11 03:57:00 Test Item Value Reference Range Interpretation Comments Alk Phos (test code = Alk Phos) 49 39-136 [facility] [id number] 03:57:00 Test Item Value Reference Range Interpretation Comments AST (test code = AST) 24 See_Comment [Auto mated message] The system which ge nerated this result transmit ann marie reference range : <=37. The reference range was not used to interpr et this result as juan l/abnormal. [facility] [id number] 03:57:00 Test Item Value Reference Range Interpretation Comments Total Protein (test code = Total 6.0 6.4-8.4 Protein) [facility]2019-01-11 03:57:00 Test Item Value Reference Range Interpretation Comments ALT (test code = ALT) 19 See_Comment [Auto mated message] The system which ge nerated this result transmit ann marie reference range : <=65. The reference range was not used to interpr et this result as juan l/abnormal. [facility] [id number] 03:57:00 Test Item Value Reference Range Interpretation Comments Albumin Lvl (test code = Albumin Lvl) 3.0 3.5-5.0 [id number] 21:07:00 Test Item Value Reference Range Interpretation Comments INR (test code = INR) 1.03 1 0.85-1.17 [facility]lakeMsfqpdcYLEJLTCSKB5421-10-07 21:07:00 Test Item Value Reference Range Interpretation Comments Segs (test code = Segs) 56.3 45.0-75.0 [id number] 21:07:00 Test Item Value Reference Range Interpretation Comments Lymphocytes (test code = Lymphocytes) 29.4 20.0-40.0 [id number] 21:07:00 Test Item Value Reference Range Interpretation Comments Monocytes (test code = Monocytes) 9.6 2.0-12.0 [id number] 21:07:00 Test Item Value Reference Range Interpretation Comments Eosinophils (test code = 4.0 See_Comment [A utomated message] The Eosinophils) system which ge nerated this result tra nsmitted reference range : <=4.0. The reference r corazon was not used to int erpret this result as normal/abnormal . [facility]la[id number] 21:07:00 Test Item Value Reference Range Interpretation Comments PT (test code = PT) 13.3 s 12.0-14.7 [id number] 21:07:00 Test Item Value Reference Range Interpretation Comments Hgb (test code = Hgb) 11.1 12.0-16.0 [facility]lakeG[id number] 21:07:00 Test Item Value Reference Range Interpretation Comments Hct (test code = Hct) 33.7 36.0-48.0 [facility]lakeWpxqquqTEEPDHXUVJ0522-07-00 21:07:00 Test Item Value Reference Range Interpretation Comments RBC (test code = RBC) 4.04 4.20-5.40 [id number] 21:07:00 Test Item Value Reference Range Interpretation Comments WBC (test code = WBC) 5.8 3.7-10.4 [id number] 21:07:00 Test Item Value Reference Range Interpretation Comments RDW (test code = RDW) 17.2 11.5-14.5 [facility] Southla[id number] 21:07:00 Test Item Value Reference Range Interpretation Comments Platelet (test code = Platelet) 365 133-450 [facility]lakePxwmynfRXWVCSLQKK3676-07-67 21:07:00 Test Item Value Reference Range Interpretation Comments MCHC (test code = MCHC) 32.9 32.0-36.0 [facility]lakeTpkktxePGVBQQLAOO2615-27-83 21:07:00 Test Item Value Reference Range Interpretation Comments MCV (test code = MCV) 83.5 80.0-98.0 [facility]lakeOdzqkmqIYEESWTGSA8019-76-09 21:07:00 Test Item Value Reference Range Interpretation Comments MCH (test code = MCH) 27.5 pg 27.0-31.0 [facility]lakeCwqlzpfGZTAJZLOMO1567-72-27 21:07:00 Test Item Value Reference Range Interpretation Comments MPV (test code = MPV) 8.4 7.4-10.4 [facility] SouthlakeWlumacoPUFTPBJWHZ3156-78-33 21:07:00 Test Item Value Reference Range Interpretation Comments Segs (test code = Segs) 56.3 45.0-75.0 [facility] SouthlakeOezvvwbYETXFRUTZA2631-51-31 21:07:00 Test Item Value Reference Range Interpretation Comments Lymphocytes (test code = Lymphocytes) 29.4 20.0-40.0 [facility] SouthlakeBaiifrkUWOJYBAZLY5296-39-86 21:07:00 Test Item Value Reference Range Interpretation Comments Monocytes (test code = Monocytes) 9.6 2.0-12.0 [facility] SouthlakeKvitxceHCPNHSGBAH5294-65-94 21:07:00 Test Item Value Reference Range Interpretation Comments Eosinophils (test code = 4.0 See_Comment [A utomated message] The Eosinophils) system which ge nerated this result tra nsmitted reference range : <=4.0. The reference r corazon was not used to int erpret this result as normal/abnormal . [facility]lakeRgixnlxJSVUKPRRIU5702-50-03 21:07:00 Test Item Value Reference Range Interpretation Comments Basophils (test code = 0.7 See_Comment [Aut omated message] The Basophils) system which ge nerated this result tra nsmitted reference range : <=1.0. The reference r corazon was not used to int erpret this result as normal/abnormal . [facility] SouthlakeIxdcfkqUGCDYRWFNG8668-36-57 21:07:00 Test Item Value Reference Range Interpretation Comments Neutrophils # (test code = Neutrophils 3.3 1.5-8.1 #) [facility] SouthlakeZiscgkeOSESHDMFOU5488-76-17 21:07:00 Test Item Value Reference Range Interpretation Comments Lymphocytes # (test code = Lymphocytes 1.7 1.0-5.5 #) [facility] SouthlakeRlpctkpIHMYZEZBIR6127-76-76 21:07:00 Test Item Value Reference Range Interpretation Comments Monocytes # (test code 0.6 See_Comment [Aut omated message] The = Monocytes #) system which generated this result tra nsmitted reference range : <=0.8. The reference r corazon was not used to int erpret this result as normal/abnormal . [facility] SouthlakeRmdrtzyWBODMGFRAA1937-90-00 21:07:00 Test Item Value Reference Range Interpretation Comments Eosinophils # (test code 0.2 See_Comment [A utomated message] The = Eosinophils #) system whic h generated this result tra nsmitted reference range : <=0.5. The reference r corazon was not used to int erpret this result as normal/abnormal . [facility]2019-01-10 21:07:00 Test Item Value Reference Range Interpretation Comments eGFR (test code = eGFR) 109 [facility]2019-01-10 21:07:00 Test Item Value Reference Range Interpretation Comments Chloride Lvl (test code = Chloride Lvl) 112 95-109 [facility]2019-01-10 21:07:00 Test Item Value Reference Range Interpretation Comments CO2 (test code = CO2) 23 24-32 [facility]2019-01-10 21:07:00 Test Item Value Reference Range Interpretation Comments Creatinine Lvl (test code = Creatinine 0.58 0.50-1.40 Lvl) [facility]2019-01-10 21:07:00 Test Item Value Reference Range Interpretation Comments Sodium Lvl (test code = Sodium Lvl) 144 135-145 [facility]2019-01-10 21:07:00 Test Item Value Reference Range Interpretation Comments Potassium Lvl (test code = Potassium 4.4 3.5-5.1 Lvl) [facility]2019-01-10 21:07:00 Test Item Value Reference Range Interpretation Comments Calcium Lvl (test code = Calcium Lvl) 8.6 8.5-10.5 [facility]2019-01-10 21:07:00 Test Item Value Reference Range Interpretation Comments BUN (test code = BUN) 7 7-22 [facility]2019-01-10 21:07:00 Test Item Value Reference Range Interpretation Comments Glucose Lvl (test code = Glucose Lvl) 107 70-99 [facility]2019-01-10 21:07:00 Test Item Value Reference Range Interpretation Comments AGAP (test code = AGAP) 13.4 10.0-20.0 [facility] SouthlakeNplatmpLGPDKOETIE6120-47-66 21:07:00 Test Item Value Reference Range Interpretation Comments Estimated % Lysis Rapid 2.1 See_Comment [Au tomated message] The (test code = Estimated syste m which generated % Lysis Rapid) this result t ransmitted reference range : <=7.5. The reference r corazon was not used to int erpret this result as normal/abnormal . [facility]lakeKkwnuqzNTDCLDCXWV5582-32-38 21:07:00 Test Item Value Reference Range Interpretation Comments Angle Rapid (test code = Angle 75 degrees 64-80 Rapid) [facility] SouthlakeSwkoetwBUFROPLJDQ3596-09-42 21:07:00 Test Item Value Reference Range Interpretation Comments G-value Rapid (test code = G-value 8.6 5.0-11.6 Rapid) [facility] SouthlakeUupohurETXURBJIMQ8425-98-22 21:07:00 Test Item Value Reference Range Interpretation Comments Max Amplitude Rapid (test code = Max 63 mm 52-71 Amplitude Rapid) [facility] SouthlakeVnjjltaLEHRJLEMAD1656-34-77 21:07:00 Test Item Value Reference Range Interpretation Comments R-time Rapid (test code = R-time 0.7 min 0.4-0.7 Rapid) [facility]lakeYmgcyueXIQTNTIHDQ6975-14-98 21:07:00 Test Item Value Reference Range Interpretation Comments K-time Rapid (test code = K-time 1.2 min 0.6-2.3 Rapid) [facility]lakeCxykqdaSCFCOONRGO4848-52-61 21:07:00 Test Item Value Reference Range Interpretation Comments Basophils (test code = 0.7 See_Comment [Aut omated message] The Basophils) system which ge nerated this result tra nsmitted reference range : <=1.0. The reference r corazon was not used to int erpret this result as normal/abnormal . [facility] SouthlakeAufkslnNJHDLHXKXD1891-92-92 21:07:00 Test Item Value Reference Range Interpretation Comments Neutrophils # (test code = Neutrophils 3.3 1.5-8.1 #) [facility] SouthlakeQbbkoddAVNSCHFQAW4526-97-77 21:07:00 Test Item Value Reference Range Interpretation Comments Lymphocytes # (test code = Lymphocytes 1.7 1.0-5.5 #) [facility] SouthlakeYegalqhPTPMTFKFNU2311-75-53 21:07:00 Test Item Value Reference Range Interpretation Comments Monocytes # (test code 0.6 See_Comment [Aut omated message] The = Monocytes #) system which generated this result tra nsmitted reference range : <=0.8. The reference r corazon was not used to int erpret this result as normal/abnormal . [facility] SouthlakeSnjjwtvALWPNBERHR6572-89-77 21:07:00 Test Item Value Reference Range Interpretation Comments Eosinophils # (test code 0.2 See_Comment [A utomated message] The = Eosinophils #) system whic h generated this result tra nsmitted reference range : <=0.5. The reference r corazon was not used to int erpret this result as normal/abnormal . [facility]2019-01-10 21:07:00 Test Item Value Reference Range Interpretation Comments eGFR (test code = eGFR) 109 [facility]lakeAlbeyusDOXDRZYDGK5370-76-69 21:07:00 Test Item Value Reference Range Interpretation Comments ACT (TEG) Rapid (test code = ACT (TEG) 113 s 86-118 Rapid) [facility]2019-01-10 21:07:00 Test Item Value Reference Range Interpretation Comments Chloride Lvl (test code = Chloride Lvl) 112 95-109 [facility]2019-01-10 21:07:00 Test Item Value Reference Range Interpretation Comments CO2 (test code = CO2) 23 24-32 [facility]2019-01-10 21:07:00 Test Item Value Reference Range Interpretation Comments Creatinine Lvl (test code = Creatinine 0.58 0.50-1.40 Lvl) [facility]2019-01-10 21:07:00 Test Item Value Reference Range Interpretation Comments Sodium Lvl (test code = Sodium Lvl) 144 135-145 [facility]2019-01-10 21:07:00 Test Item Value Reference Range Interpretation Comments Potassium Lvl (test code = Potassium 4.4 3.5-5.1 Lvl) [facility]2019-01-10 21:07:00 Test Item Value Reference Range Interpretation Comments Calcium Lvl (test code = Calcium Lvl) 8.6 8.5-10.5 [place] [id number] 21:07:00 Test Item Value Reference Range Interpretation Comments BUN (test code = BUN) 7 7-22 [facility]2019-01-10 21:07:00 Test Item Value Reference Range Interpretation Comments Glucose Lvl (test code = Glucose Lvl) 107 70-99 [facility]2019-01-10 21:07:00 Test Item Value Reference Range Interpretation Comments AGAP (test code = AGAP) 13.4 10.0-20.0 [facility]lakeCedwfmyHAUWDNFQLN3675-28-70 21:07:00 Test Item Value Reference Range Interpretation Comments Estimated % Lysis Rapid 2.1 See_Comment [Au tomated message] The (test code = Estimated syste m which generated % Lysis Rapid) this result t ransmitted reference range : <=7.5. The reference r corazon was not used to int erpret this result as normal/abnormal . [facility]lakeTkuehkwIHNQLUJVUZ4245-15-20 21:07:00 Test Item Value Reference Range Interpretation Comments Split Point Rapid (test code = Split 0.6 min Point Rapid) [facility]lakeWegqpxtVLUHMKXSGJ4039-48-38 21:07:00 Test Item Value Reference Range Interpretation Comments Angle Rapid (test code = Angle 75 degrees 64-80 Rapid) [facility]lakeBpwxgdnNEZYJUAPCJ6862-51-12 21:07:00 Test Item Value Reference Range Interpretation Comments G-value Rapid (test code = G-value 8.6 5.0-11.6 Rapid) [facility]lakeZtptqjwMRVJWBISWD7235-03-46 21:07:00 Test Item Value Reference Range Interpretation Comments Max Amplitude Rapid (test code = Max 63 mm 52-71 Amplitude Rapid) [facility]lakeEkrgxdeKQQMLPODRT0060-41-71 21:07:00 Test Item Value Reference Range Interpretation Comments R-time Rapid (test code = R-time 0.7 min 0.4-0.7 Rapid) [facility]lakeAosculeYWGPGVVZGL1340-12-61 21:07:00 Test Item Value Reference Range Interpretation Comments K-time Rapid (test code = K-time 1.2 min 0.6-2.3 Rapid) [facility]lakeZegedpcYFFTMCRAXN4234-11-30 21:07:00 Test Item Value Reference Range Interpretation Comments ACT (TEG) Rapid (test code = ACT (TEG) 113 s 86-118 Rapid) [facility]lakeDnjczvfMDWMEWJWZQ1164-52-70 21:07:00 Test Item Value Reference Range Interpretation Comments Split Point Rapid (test code = Split 0.6 min Point Rapid) [facility] SouthlakeLzpiwkiFKSOLEZBDG6152-15-90 21:07:00 Test Item Value Reference Range Interpretation Comments PTT (test code = PTT) 30.6 s 22.9-35.8 [facility]lakeEyrrlytWBQXDLSZIL2318-62-34 21:07:00 Test Item Value Reference Range Interpretation Comments INR (test code = INR) 1.03 1 0.85-1.17 [facility]lakePmjdgsnDRKRXMSRRJ6901-55-44 21:07:00 Test Item Value Reference Range Interpretation Comments PT (test code = PT) 13.3 s 12.0-14.7 [facility]lakeXquodzeVEZEQBMKSM2600-75-64 21:07:00 Test Item Value Reference Range Interpretation Comments PTT (test code = PTT) 30.6 s 22.9-35.8 [facility]lakeWljdwfcZTLPBOAXJK6989-03-42 21:07:00 Test Item Value Reference Range Interpretation Comments Hgb (test code = Hgb) 11.1 12.0-16.0 [facility]lakeRmcbtnwVLDNZMYQEB1964-46-95 21:07:00 Test Item Value Reference Range Interpretation Comments Hct (test code = Hct) 33.7 36.0-48.0 [facility]lakeDvlkmvgAHJFSNVQTO1631-79-57 21:07:00 Test Item Value Reference Range Interpretation Comments RBC (test code = RBC) 4.04 4.20-5.40 [facility]lakeMrwemjgXWCLOONEUB8148-94-49 21:07:00 Test Item Value Reference Range Interpretation Comments WBC (test code = WBC) 5.8 3.7-10.4 [facility]lakeRrjomjkMKKYDMMVHE8854-22-79 21:07:00 Test Item Value Reference Range Interpretation Comments RDW (test code = RDW) 17.2 11.5-14.5 [facility]lakeAdhcadeGYLSHDCJJE3425-86-80 21:07:00 Test Item Value Reference Range Interpretation Comments Platelet (test code = Platelet) 365 133-450 [facility] QzzicuxTKEMTDOYOJ9104-05-87 21:07:00 Test Item Value Reference Range Interpretation Comments MCHC (test code = MCHC) 32.9 32.0-36.0 [facility] BynbtssBOFQGIJMGF1172-13-04 21:07:00 Test Item Value Reference Range Interpretation Comments MCV (test code = MCV) 83.5 80.0-98.0 [facility] QdsosmsDANSKVSSPQ6902-60-17 21:07:00 Test Item Value Reference Range Interpretation Comments MCH (test code = MCH) 27.5 pg 27.0-31.0 [facility] PnahcncXIFZELXOPF3532-42-83 21:07:00 Test Item Value Reference Range Interpretation Comments MPV (test code = MPV) 8.4 7.4-10.4 [employer] [id number] 11:47:00 Test Item Value Reference Range Interpretation Comments Antibody Scrn (test Negative (01/31/18 code = Antibody Scrn) 6:47 AM) [employer] [id number] 11:47:00 Test Item Value Reference Range Interpretation Comments ABO/Rh (test code = ABO/Rh) O POS [employer] [id number] 11:47:00 Test Item Value Reference Range Interpretation Comments Antibody Scrn (test Negative (01/31/18 code = Antibody Scrn) 6:47 AM) [employer] [id number] 11:47:00 Test Item Value Reference Range Interpretation Comments ABO/Rh (test code = ABO/Rh) O POS [employer] [id number] 11:41:00 Test Item Value Reference Range Interpretation Comments eGFR (test code = eGFR) 105 [facility] Gr[employer]2018-10-30 11:41:00 Test Item Value Reference Range Interpretation Comments Calcium Lvl (test code = Calcium Lvl) 8.3 8.5-10.5 [employer]2018-10-30 11:41:00 Test Item Value Reference Range Interpretation Comments Chloride Lvl (test code = Chloride Lvl) 108 95-109 [facility] Gratafy2018-10-30 11:41:00 Test Item Value Reference Range Interpretation Comments CO2 (test code = CO2) 27 24-32 [employer]2018-10-30 11:41:00 Test Item Value Reference Range Interpretation Comments Glucose Lvl (test code = Glucose Lvl) 95 70-99 [facility]2018-10-30 11:41:00 Test Item Value Reference Range Interpretation Comments Potassium Lvl (test code = Potassium 4.2 3.5-5.1 Lvl) [facility]2018-10-30 11:41:00 Test Item Value Reference Range Interpretation Comments Creatinine Lvl (test code = Creatinine 0.65 0.50-1.40 Lvl) [facility]2018-10-30 11:41:00 Test Item Value Reference Range Interpretation Comments BUN (test code = BUN) 11 7-22 [facility]2018-10-30 11:41:00 Test Item Value Reference Range Interpretation Comments Sodium Lvl (test code = Sodium Lvl) 139 135-145 [facility]2018-10-30 11:41:00 Test Item Value Reference Range Interpretation Comments AGAP (test code = AGAP) 8.2 10.0-20.0 [facility]2018-10-30 11:41:00 Test Item Value Reference Range Interpretation Comments Lactic Acid Lvl (test code = Lactic 0.8 0.5-2.2 Acid Lvl) [facility] [id number] 11:41:00 Test Item Value Reference Range Interpretation Comments UDS Note (test code = See Note (01/31/18 6:41 UDS Note) AM) [facility]2018-10-30 11:41:00 Test Item Value Reference Range Interpretation Comments U Cocaine Scr (test Negative *NA*(01/31/18 code = U Cocaine Scr) 6:41 AM) [facility]2018-10-30 11:41:00 Test Item Value Reference Range Interpretation Comments U Benzodiaz Scr (test Negative *NA*(01/31/18 code = U Benzodiaz Scr) 6:41 AM) [facility]2018-10-30 11:41:00 Test Item Value Reference Range Interpretation Comments U Phencyclidine Scr (test Negative code = U Phencyclidine *NA*(01/31/18 6:41 Scr) AM) [facility]2018-10-30 11:41:00 Test Item Value Reference Range Interpretation Comments U Opiate Scr (test Negative *NA*(01/31/18 code = U Opiate Scr) 6:41 AM) [facility] [id number] 11:41:00 Test Item Value Reference Range Interpretation Comments U Cannab Scr (test Negative *NA*(01/31/18 code = U Cannab Scr) 6:41 AM) [facility] [id number] 11:41:00 Test Item Value Reference Range Interpretation Comments U Amph Scr (test code Negative *NA*(01/31/18 = U Amph Scr) 6:41 AM) [facility] [id number] 11:41:00 Test Item Value Reference Range Interpretation Comments U Reta Scr (test code Negative *NA*(01/31/18 = U Reta Scr) 6:41 AM) [facility]IMWW2513[facility]-66 11:41:00 Test Item Value Reference Range Interpretation Comments S Preg (test code = S Negative *NA*(01/31/18 Preg) 6:41 AM) [facility]lakeZzihwphSNARFICVQN7914-67-58 11:41:00 Test Item Value Reference Range Interpretation Comments Monocytes # (test code 0.7 See_Comment [Aut omated message] The = Monocytes #) system which generated this result tra nsmitted reference range : <=0.8. The reference r corazon was not used to int erpret this result as normal/abnormal . [facility]lakeQizeubjEZIBYVFYTS7292-92-55 11:41:00 Test Item Value Reference Range Interpretation Comments Lymphocytes # (test code = Lymphocytes 2.9 1.0-5.5 #) [facility]lakeFibbrwrYNKSPTQIDK1599-01-57 11:41:00 Test Item Value Reference Range Interpretation Comments Eosinophils # (test code 0.2 See_Comment [A utomated message] The = Eosinophils #) system ic h generated this result tra nsmitted reference range : <=0.5. The reference r corazon was not used to int erpret this result as normal/abnormal . [facility]lakeDesdczdVWZLKZVKMH4977-73-21 11:41:00 Test Item Value Reference Range Interpretation Comments Segs (test code = Segs) 55.3 45.0-75.0 [facility]lakeDimyvzrFPWIVKRIEA2879-12-31 11:41:00 Test Item Value Reference Range Interpretation Comments Lymphocytes (test code = Lymphocytes) 33.5 20.0-40.0 [facility]lakeUathudmTQSMEKVYRF5483-70-72 11:41:00 Test Item Value Reference Range Interpretation Comments Monocytes (test code = Monocytes) 8.5 2.0-12.0 [facility]lakeEqqtodwMBMZMIBGBG1264-61-97 11:41:00 Test Item Value Reference Range Interpretation Comments Basophils (test code = 0.4 See_Comment [Aut omated message] The Basophils) system which ge nerated this result tra nsmitted reference range : <=1.0. The reference r croazon was not used to int erpret this result as normal/abnormal . [facility]lakeSicqgjkRIKXSCOHMD9857-27-85 11:41:00 Test Item Value Reference Range Interpretation Comments Eosinophils (test code = 2.3 See_Comment [A utomated message] The Eosinophils) system which ge nerated this result tra nsmitted reference range : <=4.0. The reference r corazon was not used to int erpret this result as normal/abnormal . [facility]lakeNmjffutMCZMKJWZOB0404-87-01 11:41:00 Test Item Value Reference Range Interpretation Comments Neutrophils # (test code = Neutrophils 4.9 1.5-8.1 #) [facility]lakeFpdonekEDRIEJHNAS1083-27-35 11:41:00 Test Item Value Reference Range Interpretation Comments WBC (test code = WBC) 8.8 3.7-10.4 [facility]lakeEguvdxdXECVJMUWAD1398-71-65 11:41:00 Test Item Value Reference Range Interpretation Comments MCH (test code = MCH) 28.1 pg 27.0-31.0 [facility]lakeKidiyxjUXEVSUEDMP3351-07-14 11:41:00 Test Item Value Reference Range Interpretation Comments MCHC (test code = MCHC) 32.9 32.0-36.0 [facility]lakeLrhqsymKEQAUAKLPU7312-54-30 11:41:00 Test Item Value Reference Range Interpretation Comments RDW (test code = RDW) 15.9 11.5-14.5 [facility]lakeKvimubbXEMRPSZYNI8018-02-43 11:41:00 Test Item Value Reference Range Interpretation Comments RBC (test code = RBC) 4.10 4.20-5.40 [facility]lakePvtvgbwUJZWCMNJMW2447-66-30 11:41:00 Test Item Value Reference Range Interpretation Comments Hct (test code = Hct) 34.9 36.0-48.0 [facility]lakeMekgwzjEICTJZJOOW6836-43-82 11:41:00 Test Item Value Reference Range Interpretation Comments MCV (test code = MCV) 85.2 80.0-98.0 [facility]lakeIyuwhguTWXRELEUMV0394-14-99 11:41:00 Test Item Value Reference Range Interpretation Comments Hgb (test code = Hgb) 11.5 12.0-16.0 [facility]lakeUmgtkrmUCCWPCXKWA0886-08-07 11:41:00 Test Item Value Reference Range Interpretation Comments Platelet (test code = Platelet) 312 133-450 [facility]lakeQfyzhtkXZKDZHAEDL2318-19-95 11:41:00 Test Item Value Reference Range Interpretation Comments MPV (test code = MPV) 7.7 7.4-10.4 [facility]lakeZrqorcnOSPPQOIVLN2627-00-34 11:41:00 Test Item Value Reference Range Interpretation Comments ACT (TEG) Rapid (test code = ACT (TEG) 105 s 86-118 Rapid) [facility]lakeHoxktdgTJGFFRKBCP1600-16-50 11:41:00 Test Item Value Reference Range Interpretation Comments Angle Rapid (test code = Angle 75 degrees 64-80 Rapid) [facility]lakeCjokrheGWFMZBKXNP2506-95-69 11:41:00 Test Item Value Reference Range Interpretation Comments K-time Rapid (test code = K-time 1.2 min 0.6-2.3 Rapid) [facility]lakeNtbetdgMIHBORYSAJ3482-61-48 11:41:00 Test Item Value Reference Range Interpretation Comments R-time Rapid (test code = R-time 0.6 min 0.4-0.7 Rapid) [facility]lakeOdvwlqsWEBJCOTCEC0733-97-02 11:41:00 Test Item Value Reference Range Interpretation Comments Split Point Rapid (test code = Split 0.4 min Point Rapid) [facility]lakeBdnvvoaOXJPWKRPHX2624-74-54 11:41:00 Test Item Value Reference Range Interpretation Comments Estimated % Lysis Rapid 1.3 See_Comment [Au tomated message] The (test code = Estimated syste m which generated % Lysis Rapid) this result t ransmitted reference range : <=7.5. The reference r corazon was not used to int erpret this result as normal/abnormal . [facility]lakeXlxnxhpNKJHJWOEAW7256-30-49 11:41:00 Test Item Value Reference Range Interpretation Comments G-value Rapid (test code = G-value 8.2 5.0-11.6 Rapid) [facility]OMEJJG3592-51-74 11:41:00 Test Item Value Reference Range Interpretation Comments Max Amplitude Rapid (test code = Max 62 mm 52-71 Amplitude Rapid) [facility] HospitalChkkhafRDBLOPKYUX4686-54-18 11:41:00 Test Item Value Reference Range Interpretation Comments [facility] HIV 4th GEN (test Negative *NA*(01/31/18 code = CDC HIV 4th 6:41 AM) GEN) [facility] HospitalDyduxkgOANYEIOGGN4803-47-46 11:41:00 Test Item Value Reference Range Interpretation Comments Ethanol Lvl (test code = Ethanol <3.0 mg/dL Lvl) [facility] HospitalJxjtyebZVMZZLWJPM9137-81-02 11:41:00 Test Item Value Reference Range Interpretation Comments Etoh (%) (test code = Etoh (%)) <0.003 % [facility] AND [id number] 11:41:00 Test Item Value Reference Range Interpretation Comments UA Sq Epi (test code = UA Sq Epi) Few /LPF [facility] AND [id number] 11:41:00 Test Item Value Reference Range Interpretation Comments UA WBC (test code = UA WBC) 0-2 /HPF [facility] AND [id number] 11:41:00 Test Item Value Reference Range Interpretation Comments UA RBC (test code = 0-2 /HPF See_Comment [Automa ann marie message] The UA RBC) system which ge nerated this result tra nsmitted reference range : <=2. The reference range was not used to interpr et this result as juan l/abnormal. [facility] [id number] 11:41:00 Test Item Value Reference Range Interpretation Comments UA Bacteria (test code = UA Occasional /HPF Bacteria) [facility] AND [id number] 11:41:00 Test Item Value Reference Range Interpretation Comments UA Urobilinogen (test code = UA 0.2 0.1-1.0 Urobilinogen) [facility] [id number] 11:41:00 Test Item Value Reference Range Interpretation Comments UA Blood (test code = Trace *ABN*(01/31/18 UA Blood) 6:41 AM) [facility] AND [id number] 11:41:00 Test Item Value Reference Range Interpretation Comments UA Bili (test code = Negative *NA*(01/31/18 UA Bili) 6:41 AM) [facility] AND [id number] 11:41:00 Test Item Value Reference Range Interpretation Comments UA Glucose (test code Negative (01/31/18 6:41 = UA Glucose) AM) [facility] AND [id number] 11:41:00 Test Item Value Reference Range Interpretation Comments UA pH (test code = UA pH) 7.0 1 5.0-8.0 [facility] AND [id number] 11:41:00 Test Item Value Reference Range Interpretation Comments UA Ketones (test code Negative *NA*(01/31/18 = UA Ketones) 6:41 AM) [facility] AND [id number] 11:41:00 Test Item Value Reference Range Interpretation Comments UA Protein (test code Negative (01/31/18 6:41 = UA Protein) AM) [facility] AND [id number] 11:41:00 Test Item Value Reference Range Interpretation Comments UA Leuk Est (test code Trace *ABN*(01/31/18 = UA Leuk Est) 6:41 AM) [facility] AND [id number] 11:41:00 Test Item Value Reference Range Interpretation Comments UA Nitrite (test code Negative (01/31/18 6:41 = UA Nitrite) AM) [facility] AND [id number] 11:41:00 Test Item Value Reference Range Interpretation Comments UA Spec Grav (test code = UA Spec 1.010 1 Grav) [facility] AND [id number] 11:41:00 Test Item Value Reference Range Interpretation Comments UA Color (test code = Yellow *NA*(01/31/18 UA Color) 6:41 AM) [facility] AND [id number] 11:41:00 Test Item Value Reference Range Interpretation Comments UA Turbidity (test code = Clear (01/31/18 6:41 UA Turbidity) AM) [facility] [id number] 11:41:00 Test Item Value Reference Range Interpretation Comments eGFR (test code = eGFR) 105 [facility]CHE[facility] [id number] 11:41:00 Test Item Value Reference Range Interpretation Comments Calcium Lvl (test code = Calcium Lvl) 8.3 8.5-10.5 [facility]2018-10-30 11:41:00 Test Item Value Reference Range Interpretation Comments Chloride Lvl (test code = Chloride Lvl) 108 95-109 [facility]2018-10-30 11:41:00 Test Item Value Reference Range Interpretation Comments CO2 (test code = CO2) 27 24-32 [facility]2018-10-30 11:41:00 Test Item Value Reference Range Interpretation Comments Glucose Lvl (test code = Glucose Lvl) 95 70-99 [facility]2018-10-30 11:41:00 Test Item Value Reference Range Interpretation Comments Potassium Lvl (test code = Potassium 4.2 3.5-5.1 Lvl) [facility]2018-10-30 11:41:00 Test Item Value Reference Range Interpretation Comments Creatinine Lvl (test code = Creatinine 0.65 0.50-1.40 Lvl) [facility]2018-10-30 11:41:00 Test Item Value Reference Range Interpretation Comments BUN (test code = BUN) 11 7-22 [facility]2018-10-30 11:41:00 Test Item Value Reference Range Interpretation Comments Sodium Lvl (test code = Sodium Lvl) 139 135-145 [facility]2018-10-30 11:41:00 Test Item Value Reference Range Interpretation Comments AGAP (test code = AGAP) 8.2 10.0-20.0 [facility]2018-10-30 11:41:00 Test Item Value Reference Range Interpretation Comments Lactic Acid Lvl (test code = Lactic 0.8 0.5-2.2 Acid Lvl) [facility]2018-10-30 11:41:00 Test Item Value Reference Range Interpretation Comments UDS Note (test code = See Note (01/31/18 6:41 UDS Note) AM) [facility]2018-10-30 11:41:00 Test Item Value Reference Range Interpretation Comments U Cocaine Scr (test Negative *NA*(01/31/18 code = U Cocaine Scr) 6:41 AM) [facility] [id number] 11:41:00 Test Item Value Reference Range Interpretation Comments U Benzodiaz Scr (test Negative *NA*(01/31/18 code = U Benzodiaz Scr) 6:41 AM) [facility] [id number] 11:41:00 Test Item Value Reference Range Interpretation Comments U Phencyclidine Scr (test Negative code = U Phencyclidine *NA*(01/31/18 6:41 Scr) AM) [facility] [id number] 11:41:00 Test Item Value Reference Range Interpretation Comments U Opiate Scr (test Negative *NA*(01/31/18 code = U Opiate Scr) 6:41 AM) [facility] [id number] 11:41:00 Test Item Value Reference Range Interpretation Comments U Cannab Scr (test Negative *NA*(01/31/18 code = U Cannab Scr) 6:41 AM) [facility] [id number] 11:41:00 Test Item Value Reference Range Interpretation Comments U Amph Scr (test code Negative *NA*(01/31/18 = U Amph Scr) 6:41 AM) [facility] [id number] 11:41:00 Test Item Value Reference Range Interpretation Comments U Reta Scr (test code Negative *NA*(01/31/18 = U Reta Scr) 6:41 AM) [facility] ClinicHazexuzLTSNPQUWOQXLN8572-32-76 11:41:00 Test Item Value Reference Range Interpretation Comments S Preg (test code = S Negative *NA*(01/31/18 Preg) 6:41 AM) [facility]KjrvlpeQZLZCAZVNO9479-72-72 11:41:00 Test Item Value Reference Range Interpretation Comments Monocytes # (test code 0.7 See_Comment [Aut omated message] The = Monocytes #) system which generated this result tra nsmitted reference range : <=0.8. The reference r corazon was not used to int erpret this result as normal/abnormal . [facility] HospitalRvbbiazNKUTFWPHRF8518-44-36 11:41:00 Test Item Value Reference Range Interpretation Comments Lymphocytes # (test code = Lymphocytes 2.9 1.0-5.5 #) [facility] HospitalWkeyrkgOSNVKREGPU1176-34-10 11:41:00 Test Item Value Reference Range Interpretation Comments Eosinophils # (test code 0.2 See_Comment [A utomated message] The = Eosinophils #) system whic h generated this result tra nsmitted reference range : <=0.5. The reference r corazon was not used to int erpret this result as normal/abnormal . [facility]lakeZiiuirrWZFKJDEXWN5519-29-40 11:41:00 Test Item Value Reference Range Interpretation Comments Segs (test code = Segs) 55.3 45.0-75.0 [facility]lakeLvqllykDRMQBYUEIP7009-57-44 11:41:00 Test Item Value Reference Range Interpretation Comments Lymphocytes (test code = Lymphocytes) 33.5 20.0-40.0 [facility]lakeLiwketpKSAVCBZCEG3333-31-24 11:41:00 Test Item Value Reference Range Interpretation Comments Monocytes (test code = Monocytes) 8.5 2.0-12.0 [facility]lakeNawggxyHSUONZHTPH2932-51-46 11:41:00 Test Item Value Reference Range Interpretation Comments Basophils (test code = 0.4 See_Comment [Aut omated message] The Basophils) system which ge nerated this result tra nsmitted reference range : <=1.0. The reference r corazon was not used to int erpret this result as normal/abnormal . [facility]lakeXjiqhmrKKWGCTZDBY9774-91-35 11:41:00 Test Item Value Reference Range Interpretation Comments Eosinophils (test code = 2.3 See_Comment [A utomated message] The Eosinophils) system which ge nerated this result tra nsmitted reference range : <=4.0. The reference r corazon was not used to int erpret this result as normal/abnormal . [facility]lakeWwhfacqNJCJQKBEMA4004-38-17 11:41:00 Test Item Value Reference Range Interpretation Comments Neutrophils # (test code = Neutrophils 4.9 1.5-8.1 #) [facility]lakeZjmdpusQDEXJVHJAD4607-67-57 11:41:00 Test Item Value Reference Range Interpretation Comments WBC (test code = WBC) 8.8 3.7-10.4 [facility] SouthlakeRhltmtfAKARNNHHPE7849-51-86 11:41:00 Test Item Value Reference Range Interpretation Comments MCH (test code = MCH) 28.1 pg 27.0-31.0 [facility] SouthlakeGblcrzrGINSMVLAXL3549-53-52 11:41:00 Test Item Value Reference Range Interpretation Comments MCHC (test code = MCHC) 32.9 32.0-36.0 [facility] SouthlakePewyntiMFSYMAERTQ3102-15-21 11:41:00 Test Item Value Reference Range Interpretation Comments RDW (test code = RDW) 15.9 11.5-14.5 [facility] SouthlakeAstsogoCUAJRZZSNP6409-15-60 11:41:00 Test Item Value Reference Range Interpretation Comments RBC (test code = RBC) 4.10 4.20-5.40 [facility] SouthlakeHawjmgtTCQJUUDZWB9481-49-93 11:41:00 Test Item Value Reference Range Interpretation Comments Hct (test code = Hct) 34.9 36.0-48.0 [facility] SouthlakePrbaerrDDUNIENJNJ6217-97-60 11:41:00 Test Item Value Reference Range Interpretation Comments MCV (test code = MCV) 85.2 80.0-98.0 [facility] SouthlakeBkuwljkCYSILBBBFL5856-68-25 11:41:00 Test Item Value Reference Range Interpretation Comments Hgb (test code = Hgb) 11.5 12.0-16.0 [facility] SouthlakeHzgvuinAUJLSYMSES1194-46-89 11:41:00 Test Item Value Reference Range Interpretation Comments Platelet (test code = Platelet) 312 133-450 [facility] SouthlakeLtahgdiXMRJNEIIJJ1742-58-83 11:41:00 Test Item Value Reference Range Interpretation Comments MPV (test code = MPV) 7.7 7.4-10.4 [facility] SouthlakeSlmjphgKKEFCMDSWD8595-21-04 11:41:00 Test Item Value Reference Range Interpretation Comments ACT (TEG) Rapid (test code = ACT (TEG) 105 s 86-118 Rapid) [facility] SouthlakeXvyokwwCZIYNSGYDI2245-95-90 11:41:00 Test Item Value Reference Range Interpretation Comments Angle Rapid (test code = Angle 75 degrees 64-80 Rapid) [facility] SouthlakeDnankxrOEBUXMXYNW8465-50-55 11:41:00 Test Item Value Reference Range Interpretation Comments K-time Rapid (test code = K-time 1.2 min 0.6-2.3 Rapid) [facility] SouthlakeVgevyqdVXCBHJLCBZ1501-36-88 11:41:00 Test Item Value Reference Range Interpretation Comments R-time Rapid (test code = R-time 0.6 min 0.4-0.7 Rapid) [facility]lakeJjwgqboJXSAKJMYJF6845-19-42 11:41:00 Test Item Value Reference Range Interpretation Comments Split Point Rapid (test code = Split 0.4 min Point Rapid) [facility] SouthlakeCzweplqUGRAIHYETG6041-61-79 11:41:00 Test Item Value Reference Range Interpretation Comments Estimated % Lysis Rapid 1.3 See_Comment [Au tomated message] The (test code = Estimated syste m which generated % Lysis Rapid) this result t ransmitted reference range : <=7.5. The reference r corazon was not used to int erpret this result as normal/abnormal . [facility] ClinicRvdwqfeMSPVBURHFD1772-24-90 11:41:00 Test Item Value Reference Range Interpretation Comments G-value Rapid (test code = G-value 8.2 5.0-11.6 Rapid) [facility] ClinicHtowoggBAQSLQRILO8061-86-13 11:41:00 Test Item Value Reference Range Interpretation Comments Max Amplitude Rapid (test code = Max 62 mm 52-71 Amplitude Rapid) [facility] ClinicNojlsxmAZEIRTYRHY1363-35-31 11:41:00 Test Item Value Reference Range Interpretation Comments [facility] [place] HIV 4th GEN (test Negative *NA*(01/31/18 code = CDC HIV 4th 6:41 AM) GEN) [id number] 11:41:00 Test Item Value Reference Range Interpretation Comments Ethanol Lvl (test code = Ethanol <3.0 mg/dL Lvl) [facility]xozqxwVBFQQDAVAG2373-57-05 11:41:00 Test Item Value Reference Range Interpretation Comments Etoh (%) (test code = Etoh (%)) <0.003 % [facility] [id number] 11:41:00 Test Item Value Reference Range Interpretation Comments UA Sq Epi (test code = UA Sq Epi) Few /LPF [facility] AND [id number] 11:41:00 Test Item Value Reference Range Interpretation Comments UA WBC (test code = UA WBC) 0-2 /HPF [facility] AND [id number] 11:41:00 Test Item Value Reference Range Interpretation Comments UA RBC (test code = 0-2 /HPF See_Comment [Automa ann marie message] The UA RBC) system which ge nerated this result tra nsmitted reference range : <=2. The reference range was not used to interpr et this result as juan l/abnormal. [facility] AND [id number] 11:41:00 Test Item Value Reference Range Interpretation Comments UA Bacteria (test code = UA Occasional /HPF Bacteria) [facility] AND [id number] 11:41:00 Test Item Value Reference Range Interpretation Comments UA Urobilinogen (test code = UA 0.2 0.1-1.0 Urobilinogen) [facility] AND [id number] 11:41:00 Test Item Value Reference Range Interpretation Comments UA Blood (test code = Trace *ABN*(01/31/18 UA Blood) 6:41 AM) [facility] AND [id number] 11:41:00 Test Item Value Reference Range Interpretation Comments UA Bili (test code = Negative *NA*(01/31/18 UA Bili) 6:41 AM) [facility] AND [id number] 11:41:00 Test Item Value Reference Range Interpretation Comments UA Glucose (test code Negative (01/31/18 6:41 = UA Glucose) AM) [facility] AND [id number] 11:41:00 Test Item Value Reference Range Interpretation Comments UA pH (test code = UA pH) 7.0 1 5.0-8.0 [facility] [id number] 11:41:00 Test Item Value Reference Range Interpretation Comments UA Ketones (test code Negative *NA*(01/31/18 = UA Ketones) 6:41 AM) [facility] AND [id number] 11:41:00 Test Item Value Reference Range Interpretation Comments UA Protein (test code Negative (01/31/18 6:41 = UA Protein) AM) [facility] AND [id number] 11:41:00 Test Item Value Reference Range Interpretation Comments UA Leuk Est (test code Trace *ABN*(01/31/18 = UA Leuk Est) 6:41 AM) [facility] AND [id number] 11:41:00 Test Item Value Reference Range Interpretation Comments UA Nitrite (test code Negative (01/31/18 6:41 = UA Nitrite) AM) [facility] AND [id number] 11:41:00 Test Item Value Reference Range Interpretation Comments UA Spec Grav (test code = UA Spec 1.010 1 Grav) [facility] AND [id number] 11:41:00 Test Item Value Reference Range Interpretation Comments UA Color (test code = Yellow *NA*(01/31/18 UA Color) 6:41 AM) [facility] AND [id number] 11:41:00 Test Item Value Reference Range Interpretation Comments UA Turbidity (test code = Clear (01/31/18 6:41 UA Turbidity) AM) [facility]2018-03-27 11:15:00 Test Item Value Reference Range Interpretation Comments Lipase Lvl (test code = Lipase Lvl) 172 73-393 [facility]2018-03-27 11:15:00 Test Item Value Reference Range Interpretation Comments Globulin (test code = Globulin) 3.5 2.7-4.2 [facility]2018-03-27 11:15:00 Test Item Value Reference Range Interpretation Comments A/G Ratio (test code = A/G Ratio) 1.1 1 0.7-1.6 [facility]2018-03-27 11:15:00 Test Item Value Reference Range Interpretation Comments B/C Ratio (test code = B/C Ratio) 13 1 6-25 [facility]2018-03-27 11:15:00 Test Item Value Reference Range Interpretation Comments AGAP (test code = AGAP) 13.6 10.0-20.0 [facility]2018-03-27 11:15:00 Test Item Value Reference Range Interpretation Comments Total Protein (test code = Total 7.2 6.4-8.4 Protein) [facility]2018-03-27 11:15:00 Test Item Value Reference Range Interpretation Comments Alk Phos (test code = Alk Phos) 56 39-136 [facility]2018-03-27 11:15:00 Test Item Value Reference Range Interpretation Comments Bili Total (test code = Bili Total) 0.2 0.2-1.3 [facility]2018-03-27 11:15:00 Test Item Value Reference Range Interpretation Comments Potassium Lvl (test code = Potassium 3.6 3.5-5.1 Lvl) [facility]2018-03-27 11:15:00 Test Item Value Reference Range Interpretation Comments Sodium Lvl (test code = Sodium Lvl) 139 135-145 [facility]2018-03-27 11:15:00 Test Item Value Reference Range Interpretation Comments Calcium Lvl (test code = Calcium Lvl) 8.9 8.5-10.5 [place] [id number] 11:15:00 Test Item Value Reference Range Interpretation Comments Chloride Lvl (test code = Chloride Lvl) 105 95-109 [facility]2018-03-27 11:15:00 Test Item Value Reference Range Interpretation Comments eGFR (test code = eGFR) 107 [facility]2018-03-27 11:15:00 Test Item Value Reference Range Interpretation Comments ALT (test code = ALT) 24 See_Comment [Auto mated message] The system which ge nerated this result transmit ann marie reference range : <=65. The reference range was not used to interpr et this result as juan l/abnormal. [facility]2018-03-27 11:15:00 Test Item Value Reference Range Interpretation Comments AST (test code = AST) 20 See_Comment [Auto mated message] The system which ge nerated this result transmit ann marie reference range : <=37. The reference range was not used to interpr et this result as juan l/abnormal. [facility]2018-03-27 11:15:00 Test Item Value Reference Range Interpretation Comments CO2 (test code = CO2) 24 24-32 [facility]2018-03-27 11:15:00 Test Item Value Reference Range Interpretation Comments Albumin Lvl (test code = Albumin Lvl) 3.7 3.5-5.0 [facility]2018-03-27 11:15:00 Test Item Value Reference Range Interpretation Comments Creatinine Lvl (test code = Creatinine 0.63 0.50-1.40 Lvl) [facility]2018-03-27 11:15:00 Test Item Value Reference Range Interpretation Comments BUN (test code = BUN) 8 7-22 [facility]2018-03-27 11:15:00 Test Item Value Reference Range Interpretation Comments Glucose Lvl (test code = Glucose Lvl) 107 70-99 [facility]OVSOCDHKKG2868[facility] 11:15:00 Test Item Value Reference Range Interpretation Comments S Preg (test code = S Negative *NA*(06/28/17 Preg) 6:15 AM) [facility]rhgRBPRBUWIBH0585-19-07 11:15:00 Test Item Value Reference Range Interpretation Comments RDW (test code = RDW) 15.4 11.5-14.5 [facility]la[id number] 11:15:00 Test Item Value Reference Range Interpretation Comments MPV (test code = MPV) 7.7 7.4-10.4 [facility]lakeWormtbfGURCWTAIKI5482-93-36 11:15:00 Test Item Value Reference Range Interpretation Comments Platelet (test code = Platelet) 355 133-450 [facility]lakeMvdupnqOUHPXTXCZW3369-52-13 11:15:00 Test Item Value Reference Range Interpretation Comments MCV (test code = MCV) 87.1 80.0-98.0 [facility]lakeWlgfndeDNVLJXIYSD8768-25-14 11:15:00 Test Item Value Reference Range Interpretation Comments Hct (test code = Hct) 37.9 36.0-48.0 [id number] 11:15:00 Test Item Value Reference Range Interpretation Comments MCHC (test code = MCHC) 33.3 32.0-36.0 [facility]lakeZhaihulYWUGCJQKFC1179-38-35 11:15:00 Test Item Value Reference Range Interpretation Comments MCH (test code = MCH) 29.0 pg 27.0-31.0 [facility]lakeGwyrmdyUEJITQHWHY5660-43-13 11:15:00 Test Item Value Reference Range Interpretation Comments Hgb (test code = Hgb) 12.6 12.0-16.0 [facility]lakeUmwgrluDLOCJKZQHE7282-34-29 11:15:00 Test Item Value Reference Range Interpretation Comments RBC (test code = RBC) 4.35 4.20-5.40 [facility]lakeEkgsaujTDJZCLZSTJ0484-29-43 11:15:00 Test Item Value Reference Range Interpretation Comments WBC (test code = WBC) 10.7 3.7-10.4 [facility]lakeGkfsyoyUVUFDUIHTW4884-20-96 11:15:00 Test Item Value Reference Range Interpretation Comments Monocytes # (test code 0.8 See_Comment [Aut omated message] The = Monocytes #) system which generated this result tra nsmitted reference range : <=0.8. The reference r corazon was not used to int erpret this result as normal/abnormal . [facility]la[id number] 11:15:00 Test Item Value Reference Range Interpretation Comments Eosinophils # (test code 0.2 See_Comment [A utomated message] The = Eosinophils #) system whic h generated this result tra nsmitted reference range : <=0.5. The reference r corazon was not used to int erpret this result as normal/abnormal . [id number] 11:15:00 Test Item Value Reference Range Interpretation Comments Segs (test code = Segs) 72.1 45.0-75.0 [facility]lakeYpbfuytSOSQZITXPK1119-88-84 11:15:00 Test Item Value Reference Range Interpretation Comments Segs-Bands # (test code = Segs-Bands #) 7.7 1.5-8.1 [facility]lakeQqprvccWVUBVRIVEJ5172-03-75 11:15:00 Test Item Value Reference Range Interpretation Comments Lymphocytes # (test code = Lymphocytes 2.0 1.0-5.5 #) [facility]lakeFnjorjxYIVPAOIZGQ7968-90-64 11:15:00 Test Item Value Reference Range Interpretation Comments Basophils (test code = 0.4 See_Comment [Aut omated message] The Basophils) system which ge nerated this result tra nsmitted reference range : <=1.0. The reference r corazon was not used to int erpret this result as normal/abnormal . [facility] SouthlakeSlmrxwgROMNXFCHGN4976-63-01 11:15:00 Test Item Value Reference Range Interpretation Comments Monocytes (test code = Monocytes) 7.2 2.0-12.0 [facility]lakeNtqvhvlJPASNDVTBN2525-65-07 11:15:00 Test Item Value Reference Range Interpretation Comments Eosinophils (test code = 1.7 See_Comment [A utomated message] The Eosinophils) system which ge nerated this result tra nsmitted reference range : <=4.0. The reference r corazon was not used to int erpret this result as normal/abnormal . [facility]lakeSqjydwlCBUYGXLARE4962-82-49 11:15:00 Test Item Value Reference Range Interpretation Comments Lymphocytes (test code = Lymphocytes) 18.6 20.0-40.0 [facility]2018-03-27 11:15:00 Test Item Value Reference Range Interpretation Comments UA Color (test code = Colorless *NA*(06/28/17 UA Color) 6:15 AM) [facility] [id number] 11:15:00 Test Item Value Reference Range Interpretation Comments UA Spec Grav (test code = UA Spec 1.002 1 Grav) [facility] AND [id number] 11:15:00 Test Item Value Reference Range Interpretation Comments UA Turbidity (test code = Clear (06/28/17 6:15 UA Turbidity) AM) [facility] AND [id number] 11:15:00 Test Item Value Reference Range Interpretation Comments UA pH (test code = UA pH) 6.0 1 5.0-8.0 [facility] AND [id number] 11:15:00 Test Item Value Reference Range Interpretation Comments UA Glucose (test code = UA Negative mg/dL Glucose) [facility] AND [id number] 11:15:00 Test Item Value Reference Range Interpretation Comments UA Protein (test code = UA Negative mg/dL Protein) [facility] AND [id number] 11:15:00 Test Item Value Reference Range Interpretation Comments UA Blood (test code = Moderate *ABN*(06/28/17 UA Blood) 6:15 AM) [facility] AND [id number] 11:15:00 Test Item Value Reference Range Interpretation Comments UA Bili (test code = Negative *NA*(06/28/17 UA Bili) 6:15 AM) [facility] AND [id number] 11:15:00 Test Item Value Reference Range Interpretation Comments UA Nitrite (test code Negative (06/28/17 6:15 = UA Nitrite) AM) [facility] AND [id number] 11:15:00 Test Item Value Reference Range Interpretation Comments UA Hyal Cast (test 1 See_Comment [Automat ed message] The code = UA Hyal Cast) system which generated this result transmit ann marie reference range : <=2. The reference range was not used to interpr et this result as juan l/abnormal. [facility] AND [id number] 11:15:00 Test Item Value Reference Range Interpretation Comments UA Mucus (test code = UA Mucus) Few /LPF [facility] AND [id number] 11:15:00 Test Item Value Reference Range Interpretation Comments UA Urobilinogen (test code = UA <=1.0 mg/dL 0.1-1.0 Urobilinogen) [facility] AND [id number] 11:15:00 Test Item Value Reference Range Interpretation Comments UA Ketones (test code = UA Ketones) Negative [facility] AND [id number] 11:15:00 Test Item Value Reference Range Interpretation Comments UA Bacteria (test code = UA Occasional /HPF Bacteria) [facility] [id number] 11:15:00 Test Item Value Reference Range Interpretation Comments UA Sq Epi (test code = UA Sq Occasional /LPF Epi) [facility] AND [id number] 11:15:00 Test Item Value Reference Range Interpretation Comments UA Leuk Est (test Negative (06/28/17 6:15 code = UA Leuk Est) AM) [facility] AND [id number] 11:15:00 Test Item Value Reference Range Interpretation Comments UA RBC (test code = 2 See_Comment [Automa ann marie message] The UA RBC) system which ge nerated this result transmit ann marie reference range : <=2. The reference range was not used to interpr et this result as juan l/abnormal. [facility] AND [id number] 11:15:00 Test Item Value Reference Range Interpretation Comments UA WBC (test code = 1 See_Comment [Automa ann marie message] The UA WBC) system which ge nerated this result transmit ann marie reference range : <=5. The reference range was not used to interpr et this result as juan l/abnormal. [facility] [id number] 11:15:00 Test Item Value Reference Range Interpretation Comments Lipase Lvl (test code = Lipase Lvl) 172 73-393 [facility]2018-03-27 11:15:00 Test Item Value Reference Range Interpretation Comments Globulin (test code = Globulin) 3.5 2.7-4.2 [facility]2018-03-27 11:15:00 Test Item Value Reference Range Interpretation Comments A/G Ratio (test code = A/G Ratio) 1.1 1 0.7-1.6 [facility]2018-03-27 11:15:00 Test Item Value Reference Range Interpretation Comments B/C Ratio (test code = B/C Ratio) 13 1 6-25 [facility]2018-03-27 11:15:00 Test Item Value Reference Range Interpretation Comments AGAP (test code = AGAP) 13.6 10.0-20.0 [facility] [id number] 11:15:00 Test Item Value Reference Range Interpretation Comments Total Protein (test code = Total 7.2 6.4-8.4 Protein) [facility]2018-03-27 11:15:00 Test Item Value Reference Range Interpretation Comments Alk Phos (test code = Alk Phos) 56 39-136 [place] [id number] 11:15:00 Test Item Value Reference Range Interpretation Comments Bili Total (test code = Bili Total) 0.2 0.2-1.3 [facility]2018-03-27 11:15:00 Test Item Value Reference Range Interpretation Comments Potassium Lvl (test code = Potassium 3.6 3.5-5.1 Lvl) [facility]2018-03-27 11:15:00 Test Item Value Reference Range Interpretation Comments Sodium Lvl (test code = Sodium Lvl) 139 135-145 [facility]2018-03-27 11:15:00 Test Item Value Reference Range Interpretation Comments Calcium Lvl (test code = Calcium Lvl) 8.9 8.5-10.5 [facility]2018-03-27 11:15:00 Test Item Value Reference Range Interpretation Comments Chloride Lvl (test code = Chloride Lvl) 105 95-109 [facility]2018-03-27 11:15:00 Test Item Value Reference Range Interpretation Comments eGFR (test code = eGFR) 107 [facility]2018-03-27 11:15:00 Test Item Value Reference Range Interpretation Comments ALT (test code = ALT) 24 See_Comment [Auto mated message] The system which ge nerated this result transmit ann marie reference range : <=65. The reference range was not used to interpr et this result as juan l/abnormal. [facility]2018-03-27 11:15:00 Test Item Value Reference Range Interpretation Comments AST (test code = AST) 20 See_Comment [Auto mated message] The system which ge nerated this result transmit ann marie reference range : <=37. The reference range was not used to interpr et this result as juan l/abnormal. [facility]2018-03-27 11:15:00 Test Item Value Reference Range Interpretation Comments CO2 (test code = CO2) 24 24-32 [place] [id number] 11:15:00 Test Item Value Reference Range Interpretation Comments Albumin Lvl (test code = Albumin Lvl) 3.7 3.5-5.0 [facility]2018-03-27 11:15:00 Test Item Value Reference Range Interpretation Comments Creatinine Lvl (test code = Creatinine 0.63 0.50-1.40 Lvl) [facility]2018-03-27 11:15:00 Test Item Value Reference Range Interpretation Comments BUN (test code = BUN) 8 7-22 [facility]2018-03-27 11:15:00 Test Item Value Reference Range Interpretation Comments Glucose Lvl (test code = Glucose Lvl) 107 70-99 [place] [id number] 11:15:00 Test Item Value Reference Range Interpretation Comments S Preg (test code = S Negative *NA*(06/28/17 Preg) 6:15 AM) [id number] 11:15:00 Test Item Value Reference Range Interpretation Comments RDW (test code = RDW) 15.4 11.5-14.5 [facility] SouthlakeCrcfrseCGCMXDUWEJ1220-10-78 11:15:00 Test Item Value Reference Range Interpretation Comments MPV (test code = MPV) 7.7 7.4-10.4 [facility] SouthlakeOhrlztjLNJVTOGCUO8104-59-65 11:15:00 Test Item Value Reference Range Interpretation Comments Platelet (test code = Platelet) 355 133-450 [facility] SouthlakeIsleyszFGAPCGEPMC1404-42-53 11:15:00 Test Item Value Reference Range Interpretation Comments MCV (test code = MCV) 87.1 80.0-98.0 [facility] SouthlakeFqpcejiXRLDANDXKW6814-91-91 11:15:00 Test Item Value Reference Range Interpretation Comments Hct (test code = Hct) 37.9 36.0-48.0 [facility] SouthlakeLcpdxiqBJRVOYAAIA0288-20-01 11:15:00 Test Item Value Reference Range Interpretation Comments MCHC (test code = MCHC) 33.3 32.0-36.0 [facility] SouthlakeQwwnkmhUZCJRAJCZY2243-79-94 11:15:00 Test Item Value Reference Range Interpretation Comments MCH (test code = MCH) 29.0 pg 27.0-31.0 [facility] SouthlakeBsvcbgrLMXIFNCFCG7039-23-28 11:15:00 Test Item Value Reference Range Interpretation Comments Hgb (test code = Hgb) 12.6 12.0-16.0 [facility] SouthlakeAjpvijvRIUBKKDOKO5142-73-86 11:15:00 Test Item Value Reference Range Interpretation Comments RBC (test code = RBC) 4.35 4.20-5.40 [facility] Sout[id number] 11:15:00 Test Item Value Reference Range Interpretation Comments WBC (test code = WBC) 10.7 3.7-10.4 [facility] Southla[id number] 11:15:00 Test Item Value Reference Range Interpretation Comments Monocytes # (test code 0.8 See_Comment [Aut omated message] The = Monocytes #) system which generated this result tra nsmitted reference range : <=0.8. The reference r corazon was not used to int erpret this result as normal/abnormal . [facility] SouthlakeIjrhrceJXYAXRRTNY1460-04-65 11:15:00 Test Item Value Reference Range Interpretation Comments Eosinophils # (test code 0.2 See_Comment [A utomated message] The = Eosinophils #) system whic h generated this result tra nsmitted reference range : <=0.5. The reference r corazon was not used to int erpret this result as normal/abnormal . [facility] SouthlakeBgdttqkUQQIQKUNIY1412-42-37 11:15:00 Test Item Value Reference Range Interpretation Comments Segs (test code = Segs) 72.1 45.0-75.0 [facility] SouthlakeOvgdgbsVVMFBXVLQL5463-65-85 11:15:00 Test Item Value Reference Range Interpretation Comments Segs-Bands # (test code = Segs-Bands #) 7.7 1.5-8.1 [facility] SouthlakeDjyorjkTQBMMYONUS3759-93-01 11:15:00 Test Item Value Reference Range Interpretation Comments Lymphocytes # (test code = Lymphocytes 2.0 1.0-5.5 #) [facility] SouthlakeFkwunwwITHLCQMRWZ4431-36-60 11:15:00 Test Item Value Reference Range Interpretation Comments Basophils (test code = 0.4 See_Comment [Aut omated message] The Basophils) system which ge nerated this result tra nsmitted reference range : <=1.0. The reference r corazon was not used to int erpret this result as normal/abnormal . [facility] SouthlakeUsoooeyBVWPDRXGLM9591-18-17 11:15:00 Test Item Value Reference Range Interpretation Comments Monocytes (test code = Monocytes) 7.2 2.0-12.0 [facility] SouthlakePchziwzSWWLKYBZGX6811-11-43 11:15:00 Test Item Value Reference Range Interpretation Comments Eosinophils (test code = 1.7 See_Comment [A utomated message] The Eosinophils) system which ge nerated this result tra nsmitted reference range : <=4.0. The reference r corazon was not used to int erpret this result as normal/abnormal . [facility] SouthlakeVwzuawcMJCTCWFXDN3447-51-33 11:15:00 Test Item Value Reference Range Interpretation Comments Lymphocytes (test code = Lymphocytes) 18.6 20.0-40.0 [facility] AND [id number] 11:15:00 Test Item Value Reference Range Interpretation Comments UA Color (test code = Colorless *NA*(06/28/17 UA Color) 6:15 AM) [facility] AND [id number] 11:15:00 Test Item Value Reference Range Interpretation Comments UA Spec Grav (test code = UA Spec 1.002 1 Grav) [facility] AND [id number] 11:15:00 Test Item Value Reference Range Interpretation Comments UA Turbidity (test code = Clear (06/28/17 6:15 UA Turbidity) AM) [facility] AND [id number] 11:15:00 Test Item Value Reference Range Interpretation Comments UA pH (test code = UA pH) 6.0 1 5.0-8.0 [facility] AND [id number] 11:15:00 Test Item Value Reference Range Interpretation Comments UA Glucose (test code = UA Negative mg/dL Glucose) [facility] AND [id number] 11:15:00 Test Item Value Reference Range Interpretation Comments UA Protein (test code = UA Negative mg/dL Protein) [facility] AND [id number] 11:15:00 Test Item Value Reference Range Interpretation Comments UA Blood (test code = Moderate *ABN*(06/28/17 UA Blood) 6:15 AM) [facility] AND [id number] 11:15:00 Test Item Value Reference Range Interpretation Comments UA Bili (test code = Negative *NA*(06/28/17 UA Bili) 6:15 AM) [facility] AND [id number] 11:15:00 Test Item Value Reference Range Interpretation Comments UA Nitrite (test code Negative (06/28/17 6:15 = UA Nitrite) AM) [facility] AND [id number] 11:15:00 Test Item Value Reference Range Interpretation Comments UA Hyal Cast (test 1 See_Comment [Automat ed message] The code = UA Hyal Cast) system which generated this result transmit ann marie reference range : <=2. The reference range was not used to interpr et this result as juan l/abnormal. [facility] AND [id number] 11:15:00 Test Item Value Reference Range Interpretation Comments UA Mucus (test code = UA Mucus) Few /LPF [facility] AND [id number] 11:15:00 Test Item Value Reference Range Interpretation Comments UA Urobilinogen (test code = UA <=1.0 mg/dL 0.1-1.0 Urobilinogen) [facility] AND [id number] 11:15:00 Test Item Value Reference Range Interpretation Comments UA Ketones (test code = UA Ketones) Negative [facility] AND [id number] 11:15:00 Test Item Value Reference Range Interpretation Comments UA Bacteria (test code = UA Occasional /HPF Bacteria) [facility] AND [id number] 11:15:00 Test Item Value Reference Range Interpretation Comments UA Sq Epi (test code = UA Sq Occasional /LPF Epi) [facility] AND [id number] 11:15:00 Test Item Value Reference Range Interpretation Comments UA Leuk Est (test Negative (06/28/17 6:15 code = UA Leuk Est) AM) [facility] AND [id number] 11:15:00 Test Item Value Reference Range Interpretation Comments UA RBC (test code = 2 See_Comment [Automa ann marie message] The UA RBC) system which ge nerated this result transmit ann marie reference range : <=2. The reference range was not used to interpr et this result as juan l/abnormal. [facility] AND [id number] 11:15:00 Test Item Value Reference Range Interpretation Comments UA WBC (test code = 1 See_Comment [Automa ann marie message] The UA WBC) system which ge nerated this result transmit ann marie reference range : <=5. The reference range was not used to interpr et this result as juan l/abnormal. [facility]
--- NOTE | 2022-01-25 17:39 | EDPHYS ---
Physician Documentation [facility] Name: Dayami Espinosa Age: 51 yrs Sex: Female : 1970 Arrival Date: 01/25/2022 Time: 17:24 Bed 11 Private MD: ED Physician Vladimir Coelho HPI: 01/25 17:25 This 51 yrs old Female presents to ER via EMS with complaints of Headache and Abdominal cp Pain. 17:25 The patient complains of pain to the forehead. The patient describes the headache as cp aching. Onset: The symptoms/episode began/occurred today. The patient presents with abdominal pain in the left lower quadrant. Associated signs and symptoms: Pertinent positives: dysuria, Pertinent negatives: fever, neck stiffness, paresthesias, vomiting, weakness. Severity of symptoms: in the emergency department the pain is unchanged, despite EMS interventions. Historical: - Allergies: 17:44 Amoxicillin; kr3 17:44 Pseudoephedrine; kr3 - PMHx: 17:44 Anemia; Bipolar disorder; gastritis; Ovarian cyst; kr3 - PSHx: 17:44 brain surgery; kr3 - Immunization history:: Adult Immunizations unknown. - Social history:: Smoking status: unknown. ROS: 17:27 Constitutional: Negative for body aches, chills, fever, poor PO intake. cp 17:27 Eyes: Negative for injury, pain, redness, and discharge. cp 17:27 ENT: Negative for drainage from ear(s), ear pain, sore throat, difficulty swallowing, difficulty handling secretions. 17:27 Cardiovascular: Negative for chest pain. 17:27 Respiratory: Negative for cough, shortness of breath, wheezing. 17:27 Abdomen/GI: Positive for abdominal pain, Negative for vomiting, diarrhea, constipation. 17:27 : Positive for burning with urination. 17:27 Neuro: Positive for headache, Negative for altered mental status, dizziness, weakness. 17:27 All other systems are negative. Exam: 17:30 Constitutional: The patient appears in no acute distress, alert, awake, non-toxic, well cp developed, well nourished. 17:30 Head/Face: Normocephalic, atraumatic. cp 17:30 Eyes: Periorbital structures: appear normal, Pupils: equal, round, and reactive to light and accomodation, Extraocular movements: intact throughout, Conjunctiva: normal, no exudate, no injection, Sclera: no appreciated abnormality, Lids and lashes: appear normal, bilaterally. 17:30 ENT: External ear(s): are unremarkable, Nose: is normal, Mouth: Lips: moist, Oral mucosa: pink and intact, moist, Posterior pharynx: Airway: no evidence of obstruction, patent. 17:30 Neck: ROM/movement: is normal, is supple, without pain, no range of motions limitations, no meningismus, no nuchal rigidity, Lymph nodes: no appreciated lymphadenopathy. 17:30 Chest/axilla: Inspection: normal. 17:30 Cardiovascular: Rate: normal, Rhythm: regular. 17:30 Respiratory: the patient does not display signs of respiratory distress, Respirations: normal, no use of accessory muscles, no retractions, labored breathing, is not present. 17:30 Abdomen/GI: Inspection: abdomen appears normal, Bowel sounds: active, all quadrants, Palpation: soft, in all quadrants, mild abdominal tenderness, in the left lower quadrant, rebound tenderness, is not appreciated, involuntary guarding, is not appreciated. 17:30 Back: pain, is absent, ROM is normal. 17:30 Neuro: Orientation: to person, place \T\ time. Mentation: is normal, Motor: moves all fours, strength is normal, Sensation: is normal. MDM: 17:30 Patient medically screened. cp 17:30 Differential diagnosis: migraine, non-specific abd pain, Pyelonephritis, cp Ureterolithiasis, urinary tract infection. 17:38 ED course: Patient declines any testing at this time. cp 17:39 Data reviewed: nurses notes, and as a result, I will discharge patient. 01/25 17:29 Order name: IV Saline Lock cp 01/25 17:29 Order name: Labs collected and sent cp 01/25 17:29 Order name: Urine Dipstick-Ancillary (obtain specimen) cp 01/25 17: Order name: Urine Test (obtain specimen) cp Administered Medications: No medications were administered Disposition Summary: 01/25/22 17:39 Discharge Ordered Location: Home cp Problem: new cp Symptoms: are unchanged cp Condition: Stable cp Diagnosis - Headache cp - Lower abdominal pain, unspecified cp Followup: cp - With: Private Physician - When: 1 - 2 days - Reason: Recheck today's complaints Discharge Instructions: - Discharge Summary Sheet cp - Abdominal Pain, Adult cp - General Headache Without Cause cp Forms: - Medication Reconciliation Form cp - Thank You Letter cp - Antibiotic Education cp - Prescription Opioid Use cp Addendum: 01/28/2022 07:02 Co-signature as Attending Physician, Vladimir Coelho MD. r n Signatures: Dispatcher [employer] EDVladimir Matute MD MD rn Darrell Bardales PA PA cp Reid, Kelley RN RN kr3
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
== END 2022-01-25 17:45 | disposition home or self-care (01) ==
LOC: ER 17:22
DX: R51.9 Headache, unspecified (principal); R10.32 Left lower quadrant pain; Z88.1 Allergy status to other antibiotic agents; Z88.8 Allergy status to other drugs, medicaments and biological substances
CPT/HCPCS: 99282

== ENCOUNTER 2022-02-11 22:27 | Emergency (ER) | payer SELFPAY ==
--- OUTSIDE RECORDS SUMMARY | 2022-02-11 22:35 | XMS REPORT | Continuity of Care Document ---
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 [facility] Diastolic blood 2020-11-07 11:40:00 63 mm[Hg] [facility] Heart rate 2020-11-07 11:40:00 73 /min [facility] Respiratory rate 2020-11-07 11:40:00 15 /min [facility] Oxygen saturation in 2020-11-07 11:40:00 99 /min [facility] [place] [facility] Body temperature 2020-11-07 08:50:00 37.33 Nakia [facility] Body height 2020-11-07 08:50:00 160 cm [facility] Body weight 2020-11-07 08:50:00 46.72 kg [facility] BMI 2020-11-07 08:50:00 18.25 kg/m2 [facility] Systolic blood 2020-09-28 03:54:00 145 mm[Hg] [facility] Diastolic blood 2020-09-28 03:54:00 70 mm[Hg] [facility] Heart rate 2020-09-28 03:54:00 87 /min [facility] Body temperature 2020-09-28 03:54:00 36.44 Nakia [facility] Respiratory rate 2020-09-28 03:54:00 16 /min [facility] Body height 2020-09-28 03:54:00 160 cm [facility] Body weight 2020-09-28 03:54:00 48.081 kg [facility] BMI 2020-09-28 03:54:00 18.78 kg/m2 [facility] Oxygen saturation in 2020-09-28 03:54:00 100 /min [facility] [place] [facility] Systolic blood 2020-09-28 03:54:00 145 mm[Hg] [facility] Diastolic blood 2020-09-28 03:54:00 70 mm[Hg] Unive [facility] Heart rate 2020-09-28 03:54:00 87 /min [facility] Body temperature 2020-09-28 03:54:00 36.44 Nakia [facility] Respiratory rate 2020-09-28 03:54:00 16 /min [facility] Body height 2020-09-28 03:54:00 160 cm [facility] Body weight 2020-09-28 03:54:00 48.081 kg [facility] BMI 2020-09-28 03:54:00 18.78 kg/m2 [facility] Oxygen saturation in 2020-09-28 03:54:00 100 /min [facility] Arterial blood by [facility] richard Pulse [facility] Systolic blood 2020-09-24 05:34:00 121 mm[Hg] Univer [facility] Diastolic blood 2020-09-24 05:34:00 73 mm[Hg] Unive rs[facility] Heart rate 2020-09-24 05:34:00 75 /min [facility] Body temperature 2020-09-24 05:34:00 36.94 Nakia [facility] Respiratory rate 2020-09-24 05:34:00 18 /min [facility] Body height 2020-09-24 05:34:00 160 cm [facility] Body weight 2020-09-24 05:34:00 48.081 kg [facility] BMI 2020-09-24 05:34:00 18.78 kg/m2 [facility] Oxygen saturation in 2020-09-24 05:34:00 100 /min [facility] Arterial blood by [facility] richard P[facility] Systolic blood 2020-09-24 05:34:00 121 mm[Hg] [facility]iver [facility] Diastolic blood 2020-09-24 05:34:00 73 mm[Hg] Unive [facility] Heart rate 2020-09-24 05:34:00 75 /min [facility] Body temperature 2020-09-24 05:34:00 36.94 Nakia [facility] Respiratory rate 2020-09-24 05:34:00 18 /min [facility] Body height 2020-09-24 05:34:00 160 cm [facility] Body weight 2020-09-24 05:34:00 48.081 kg [facility] BMI 2020-09-24 05:34:00 18.78 kg/m2 [facility] Oxygen saturation in 2020-09-24 05:34:00 100 /min [facility] [place] [facility] Systolic blood 2018-11-26 08:35:00 136 mm[Hg] [facility] Diastolic blood 2018-11-26 08:35:00 61 mm[Hg] Unive [facility] Heart rate 2018-11-26 08:35:00 84 /min [facility] Body temperature 2018-11-26 08:35:00 36.94 Nakia [facility] Respiratory rate 2018-11-26 08:35:00 18 /min [facility] Body weight 2018-11-26 08:35:00 48.081 kg [facility] BMI 2018-11-26 08:35:00 18.78 kg/m2 [facility] Oxygen saturation in 2018-11-26 08:35:00 99 /min [facility] blood by [place] [employer] richard [facility] Systolic blood 2018-11-26 08:35:00 136 mm[Hg] [facility]iver [facility] Diastolic blood 2018-11-26 08:35:00 61 mm[Hg] Unive [facility] Heart rate 2018-11-26 08:35:00 84 /min [facility] Body temperature 2018-11-26 08:35:00 36.94 Nakia [facility] Respiratory rate 2018-11-26 08:35:00 18 /min [facility] Body weight 2018-11-26 08:35:00 48.081 kg [facility] BMI 2018-11-26 08:35:00 18.78 kg/m2 [facility] Oxygen saturation in 2018-11-26 08:35:00 99 /min [facility] [place] [facility] Systolic blood 2018-11-04 06:38:00 119 mm[Hg] [facility] Diastolic blood 2018-11-04 06:38:00 73 mm[Hg] Unive [facility] Heart rate 2018-11-04 06:38:00 89 /min [facility] Body temperature 2018-11-04 06:38:00 36.67 Nakia [facility] Respiratory rate 2018-11-04 06:38:00 20 /min [facility] Body height 2018-11-04 06:38:00 160 cm [facility] Body weight 2018-11-04 06:38:00 47.628 kg [facility] BMI 2018-11-04 06:38:00 18.60 kg/m2 [facility] Oxygen saturation in 2018-11-04 06:38:00 100 /min [facility] Arterial blood by [facility] Pulse oximetry Branch Systolic blood 2018-11-04 06:38:00 119 mm[Hg] Univer [facility]ity [facility] Diastolic blood 2018-11-04 06:38:00 73 mm[Hg] Unive rsity of [facility] Heart rate 2018-11-04 06:38:00 89 /min [facility] Body temperature 2018-11-04 06:38:00 36.67 Nakia [facility] Respiratory rate 2018-11-04 06:38:00 20 /min [facility] Body height 2018-11-04 06:38:00 160 cm [facility] Body weight 2018-11-04 06:38:00 47.628 kg [facility] BMI 2018-11-04 06:38:00 18.60 kg/m2 [facility] Oxygen saturation in 2018-11-04 06:38:00 100 /min [facility] Arterial blood by [facility] richard Pulse o[facility] Branch Temperature Oral (F) 2018-04-14 19:01:00 98.2 F [facility] Systolic (mm Hg) 2018-04-14 16:00:00 [facility] Diastolic (mm Hg) 2018-04-14 16:00:00 [facility] Respitory Rate 2018-04-14 16:00:00 [facility] Systolic (mm Hg) 2018-04-14 15:00:00 [facility] Diastolic (mm Hg) 2018-04-14 15:00:00 [facility] Respitory Rate 2018-04-14 15:00:00 Memori [facility] Systolic (mm Hg) 2018-04-14 14:00:00 [facility] Diastolic (mm Hg) 2018-04-14 14:00:00 [facility] Respitory Rate 2018-04-14 14:00:00 [facility] Temperature Oral (F) 2018-04-14 13:35:00 97.2 F [facility] Temperature Oral (F) 2018-04-14 10:00:00 97.6 F [facility] Heart Rate 2018-04-14 03:11:00 [facility] Heart Rate 2018-04-14 01:02:00 [facility] Weight 2018-04-13 19:53:00 [facility] Height 2018-04-13 19:53:00 160.02 cm [facility] BMI Calculated 2018-04-13 19:53:00 [facility] Heart Rate 2018-04-13 19:53:00 [facility] Systolic (mm Hg) 2018-01-31 19:28:00 Wagner [facility] Diastolic (mm Hg) 2018-01-31 19:28:00 [facility] Heart Rate 2018-01-31 19:28:00 [facility] Respitory Rate 2018-01-31 19:28:00 [facility] Weight 2018-01-31 19:28:00 [facility] Temperature Oral (F) 2018-01-31 19:28:00 97.9 F [facility] Systolic (mm Hg) 2018-01-31 16:00:00 Wagner [facility] Diastolic (mm Hg) 2018-01-31 16:00:00 [facility] Respitory Rate 2018-01-31 16:00:00 Memori [facility] Respitory Rate 2018-01-31 15:07:00 Memori [facility] Systolic (mm Hg) 2018-01-31 15:07:00 [facility] Diastolic (mm Hg) 2018-01-31 15:07:00 [facility] Respitory Rate 2018-01-31 14:02:00 [facility] Systolic (mm Hg) 2018-01-31 14:02:00 Wagner [facility] Diastolic (mm Hg) 2018-01-31 14:02:00 [facility] Temperature Oral (F) 2018-01-31 10:46:00 98.6 F [facility] Heart Rate 2018-01-31 10:46:00 [facility] Systolic (mm Hg) 2017-06-28 14:36:00 Wagner [facility] Diastolic (mm Hg) 2017-06-28 14:36:00 [facility] Temperature Oral (F) 2017-06-28 14:36:00 98.1 F [facility] Respitory Rate 2017-06-28 14:36:00 [facility] Heart Rate 2017-06-28 14:36:00 [facility] Respitory Rate 2017-06-28 09:31:00 [facility] Temperature Oral (F) 2017-06-28 09:31:00 97.9 F [facility] Weight 2017-06-28 09:31:00 [facility] Heart Rate 2017-06-28 09:31:00 [facility] Systolic (mm Hg) 2017-06-28 09:31:00 Wagner [facility] Diastolic (mm Hg) 2017-06-28 09:31:00 [facility] Procedures Procedure Date / Time Performing Clinician Source Performed EMERGENCY SERVICES 2022-01-27 05:01:00 Doctor Mead [facility] AGREEMENTS AND [facility] AUTHORIZATIONS CONSENT/REFUSAL FOR 2022-01-27 04:26:[address] [facility] DIAGNOSIS AND TREATMENT [place] [facility] URINALYSIS 2022-01-20 05:18:00 Ministerio Milligan [facility] URINE DRUG (IMMUNOASSAY) 2022-01-20 05:18:00 Ministerio Milligan [facility] DRUG [facility] SCREEN W/O REFLEX CONSENT/REFUSAL FOR 2022-01-20 05:05:[address] [facility] DIAGNOSIS AND TREATMENT [facility] URINALYSIS 2022-01-18 05:36:00 Tahir Rockwell [facility] CONSENT/REFUSAL FOR 2021-02-20 05:09:04 [facility] DIAGNOSIS AND TREATMENT [facility] NOTICE OF PRIVACY 2020-12-17 05:49:43 Doctor [facility] CONSENT/REFUSAL FOR 2020-12-17 05:49:22 Doctor [facility] DIAGNOSIS AND TREATMENT [facility] CONSENT/REFUSAL FOR 2020-11-07 08:31:45 Doctor [facility] DIAGNOSIS AND TREATMENT [facility] NOTICE OF PRIVACY 2020-09-28 05:36:52 Doctor [facility] CONSENT/REFUSAL FOR 2020-09-28 05:31:04 Doctor [facility] DIAGNOSIS AND TREATMENT [facility] XR ANKLE 3+ VW RIGHT 2020-09-24 05:48:05 Umu [facility] FOOT 3+ VW RIGHT 2018-11-26 08:52:[address] [facility] NOTICE OF PRIVACY 2018-11-26 08:32:51 Doctor [facility] CONSENT/REFUSAL FOR 2018-11-26 08:31:[address] [facility] DIAGNOSIS AND TREATMENT [facility] EKG-12 LEAD 2018-11-04 07:40:11 David Gil o f [facility] POCT GLUCOSE (AUTOMATED) 2018-11-04 07:33:00 David Gil [facility] CONSENT/REFUSAL FOR 2018-11-04 06:31:07 Doctor [facility] DIAGNOSIS AND TREATMENT [facility] Plan of Care Planned Activity Planned Date Details Comments Source Future Scheduled 2022-02-11 COVID-19 VACCINE (#1) [facility] Test 22:30:00 [code = COVID-19 VACCINE (#1)] Future Scheduled 2022-02-11 Screening for [facility] Test 22:30:00 malignant neoplasm of cervix (procedure) [code = 227629268] Future Scheduled 2022-02-11 BREAST CANCER [facility] Test 22:30:00 SCREENING [code = BREAST CANCER SCREENING] Future Scheduled 2022-02-11 COLONOSCOPY SCREENING [facility] Test 22:30:00 [code = COLONOSCOPY SCREENING] Future Scheduled 2022-02-11 SHINGLES VACCINES (1 Met [facility] Test 22:30:00 of 2) [code = SHINGLES VACCINES (1 of 2)] Future Scheduled 2022-02-11 INFLUENZA VACCINE Method [facility] Test 22:30:00 [code = INFLUENZA VACCINE] Future Scheduled 2022-02-11 HEPATITIS B VACCINES Met [facility] Test 22:30:00 (1 of 3 - 3-dose series) [code = HEPATITIS B VACCINES (1 of 3 - 3-dose series)] Future Scheduled 2021-12-03 HEPATITIS B VACCINES Met [facility] Test 23:04:54 (1 of 3 - 3-dose series) [code = HEPATITIS B VACCINES (1 of 3 - 3-dose series)] Future Scheduled 2021-12-03 COVID-19 VACCINE (#1) [facility] Test 23:04:54 [code = COVID-19 VACCINE (#1)] Future Scheduled 2021-12-03 Screening for [facility] Test 23:04:54 malignant neoplasm of cervix (procedure) [code = 053350908] Future Scheduled 2021-12-03 BREAST CANCER [facility] Test 23:04:54 SCREENING [code = BREAST CANCER SCREENING] Future Scheduled 2021-12-03 COLONOSCOPY SCREENING [facility] Test 23:04:54 [code = COLONOSCOPY SCREENING] Future Scheduled 2021-12-03 SHINGLES VACCINES (1 Met [facility] Test 23:04:54 of 2) [code = SHINGLES VACCINES (1 of 2)] Future Scheduled 2021-12-03 INFLUENZA VACCINE Method [facility]3] Test 23:04:54 [code = INFLUENZA VACCINE] Future Scheduled 2021-12-03 HEPATITIS B VACCINES Met [facility] Test 23:04:54 (1 of 3 - 3-dose series) [code = HEPATITIS B VACCINES (1 of 3 - 3-dose series)] Future Scheduled 2021-12-03 COVID-19 VACCINE (#1) [facility] Test 23:04:54 [code = COVID-19 VACCINE (#1)] Future Scheduled 2021-12-03 Screening for [facility] Test 23:04:54 malignant neoplasm of cervix (procedure) [code = 661065151] Future Scheduled 2021-12-03 BREAST CANCER [facility] Test 23:04:54 SCREENING [code = BREAST CANCER SCREENING] Future Scheduled 2021-12-03 [facility] 23:04:54 [code = COLONOSCOPY SCREENING] Future Scheduled 2021-12-03 SHINGLES [facility]ACCINES ([facility] 23:04:54 of 2) [code = SHINGLES VACCINES (1 of 2)] Future Scheduled 2021-12-03 INFLUENZA VACCINE [facility] Test 23:04:54 [code = INFLUENZA VACCINE] Future Scheduled 2019-12-04 INFLUENZA VACCINE (#1) [facility] Test 00:00:00 [code = INFLUENZA Medical Ce nter VACCINE (#1)] Future Scheduled [address] [facility] Test 00:00:00 (procedure) [code = Medical Center 02656546] Future Scheduled [address] [facility] 00:[facility] cervix (procedure) [code = 858820797] Future Scheduled [address] [facility] Test 00:00:00 0-64 YRS (1 of 1 - Medical C enter PPSV23) [code = PNEUMOCOCCAL VACCINE 0-64 YRS (1 of 1 - PPSV23)] Future Scheduled [address] [facility] [facility] Test 00:00:00 [facility] (procedure) [code = 088834097] Future Scheduled [address] [facility] Test 00:00:00 [facility] colon (procedure) [code = 804193721] Future Scheduled [facility] [code = COLONOSCOPY SCREENING] Future Scheduled SHINGLES VACCINES (#[facility]) [facility] [code = SHINGLES VACCINES (#1)] Future Scheduled INFLUENZA [facility]ACCINE [facility] Test [code = INFLUENZA VACCINE] Future Scheduled COVID-19 VACCINE (1) [facility] [code = COVID-19 VACCINE (1)] Future Scheduled Scre[facility] for [facility] Test malignant neoplasm of cervix (procedure) [code = 275882855] Future Scheduled BREAST CANCER [facility] Test SCREENING [code = BREAST CANCER SCREENING] Encounters Start End Encounter Admission Attending Care Care Encounter Source Date/Time Date/Time Type Type Clinicians Facility Department ID 2022-01-27 2022-01-27 Emergency X Bk FU [facility] ERT [id number] Univers 00:10:00 03:01:00 ity of [facility] 2022-01-27 2022-01-27 Emergency Bk Fu [facility] [id number] Univers 00:10:00 03:01:00 Alva MODI [id number] i ty of [place] [id number] [facility] [id number] [address] 2022-01-27 2022-01-27 Orders Doctor SELVIN [id number] Univers 00:00:00 00:00:00 Only Unassigned, HILTON [id number] ity of [facility] [id number] Everardo as [id number] [address] 2022-01-20 2022-01-20 Emergency X NELIDA [facility] ERT [id number] Univers 00:07:00 01:39:00 FOLUSHO ity of [facility] 2022-01-20 2022-01-20 [facility] [id number] Univers 00:07:00 01:39:00 Ministerio MODI [id number] ity of [place] [id number] [facility] [id number] [address] 2022-01-18 2022-01-18 Emergency X Bk FU [facility] ERT [id number] Univers 00:31:00 02:27:00 ity of [facility] 2022-01-18 2022-01-18 Emergency Bk Fu [facility] [id number] Univers 00:31:00 02:27:00 Alva MODI [id number] i ty [facility] [id number] [facility] [id number] [address] 2021-03-03 2021-03-03 Emergency [facility] [id number] Univers 02:39:00 03:00:00 Milagros MODI [id number] i ty [facility] [id number] [facility] [id number] [address] 2021-03-03 2021-03-03 Emergency Elisa MALLOY, [facility] ERT [id number] Univers 02:39:00 03:00:00 MILAGROS [facility] 2021-02-19 2021-02-20 Emergency X LULI, [facility] ERT [id number] Univers 23:23:00 01:46:00 TAHIR [facility] 2021-02-19 2021-02-20 Emergency [facility] [id number] Univers 23:23:00 01:46:00 Tahir MODI [id number] ity of [place] [id number] [facility] [id number] [address] 2021-01-12 2021-01-12 Emergency [facility] [id number] Univers 03:24:00 03:55:00 Umu Modi [id number] ity of [place] [id number] [facility] [id number] [address] 2021-01-12 2021-01-12 Emergency [facility]RT [id number] Univers 03:24:00 03:24:00 UMU [facility] 2021-01-11 2021-01-11 Emergency [facility] [id number] Univers 19:24:00 20:00:00 Umu Modi [id number] ity of [place] [id number] [facility] [id number] [address] 2021-01-11 2021-01-11 Emergency [facility]RT [id number] Univers 19:24:00 19:24:00 UMU [facility] 2020-12-17 2020-12-17 Emergency [facility] [id number] Univers 01:00:00 01:40:00 Milagros Osborn [id number] i ty of [place] [id number] [facility] [id number] [address] 2020-12-17 2020-12-17 Emergency X [facility] ERT [id number] Univers 00:47:00 00:47:00 ity of [facility] 2020-11-07 2020-11-07 Emergency [facility] [id number] 03:52:00 06:43:00 Tahir S Osborn [id number] [place] [id number] [place] [id number] [facility] 2020-11-07 2020-11-07 Emergency [facility] [id number] Univers 03:52:00 06:43:00 [place] Osborn [id number] ity of [place] [id number] [facility] [id number] [address] 2020-11-07 2020-11-07 Emergency X [facility] ERT [id number] Univers 03:31:00 03:31:00 ity [facility] 2020-09-27 2020-09-28 Emergency [facility] [id number] 23:09:00 03:14:00 Tahir S Osborn [id number] [place] [id number] [place] [id number] [facility] 2020-09-27 2020-09-28 Emergency [facility] [id number] Univers 23:09:00 03:14:00 Tahir S Osborn [id number] ity of [place] [id number] [place] [id number] 2020-09-27 2020-09-27 Emergency X [facility] ERT [id number] Univers 23:09:00 23:09:00 WAKILI ity [facility] 2020-09-24 2020-09-24 Emergency [facility] [id number] 00:36:00 01:37:00 Umu Modi [id number] [place] [id number] [place] [id number] [facility] 2020-09-24 2020-09-24 Emergency [facility] 1.2.840.114 [id number] [facility] 00:36:00 01:37:00 Umu Modi [id number] [place] 4.2.7.2.686 [facility] [id number] [address] 2020-09-24 2020-09-24 Emergency [facility] [id number] 00:36:00 00:36:00 UMU [facility] 2018-11-27 2018-11-27 Patient Edilia Gonzalez [id number] 00:00:00 00:00:00 Outreach E New 350.1.13.10 [place] 4.2.7.2.686 [id number] [facility] 2018-11-27 2018-11-27 Patient Edilia Gonzalez 1.2.840.114 [id number] [facility] 00:00:00 00:00:00 Outreach E New 350.1.13.10 i ty of [place] 4.2.7.2.686 [facility] [id number] [facility] [address] 2018-11-26 2018-11-26 [facility] 1.2.840.114 [id number] 03:43:44 04:30:00 Umu Modi 350.1.13.10 [place] 4.2.7.2.686 [place] [id number] [facility] 2018-11-26 2018-11-26 [facility] 1.2.840.114 [id number] [facility] 03:43:44 04:30:00 Umu Modi 350.1.13.10 [place] 4.2.7.2.686 [facility] [id number] [address] 2018-11-04 2018-11-04 Emergency Singer [facility] [id number] 02:27:58 03:11:00 David Modi 350.1.13.10 [place] 4.2.7.2.686 [place] [id number] [facility] 2018-11-04 2018-11-04 Emergency Gil [facility] [id number] [facility] 02:27:58 03:11:00 David Modi 350.1.13.10 i ty of [place] 4.2.7.2.686 [facility] [place] [id number] [facility] [address] 2018-11-04 2018-11-04 Orders Doctor SELVIN 1.2.840.114 [id number] 00:00:00 00:00:00 Only Unassigned, HIL[place] 350.1.13.10 [place] [facility] 4.2.7.2.686 [id number] [facility] 2018-11-04 2018-11-04 Orders Doctor SELVIN 1.2.840.114 [id number] [facility] 00:00:00 00:00:00 Only Unassigned, HILTON 350.1.13.10 ity of [place] [facility] 4.2.7.2.686 [facility] [phone] [facility] [address] 2018-04-17 2018-04-19 Phone nullFlavo MNA [id number] Memoria 19:55:00 05:59:59 Message r Neurosurger 00 l y [facility] 2018-04-17 2018-04-19 Phone nullFlavo MNA [id number] Memoria 19:55:00 05:59:59 Message r Neurosurger 00 l y [facility] 2018-04-17 2018-04-18 [id number] 13:55:00 23:59:59 00 2018-04-13 2018-04-14 Inpatient nullFlavo [facility] [id number] Memoria 19:48:00 19:15:[address] 2018-04-13 2018-04-14 Inpatient nullFlavo [facility] [id number] Memoria 19:48:00 19:15:[address] 2018-04-13 2018-04-14 Outpatient [facility] [id number] 13:48:00 13:15:00 Ritvij 10 2018-01-31 2018-01-31 Emergency nullFlavo [facility] [id number] Memoria 19:12:00 23:03:00 r Sandro [facility] 2018-01-31 2018-01-31 Emergency nullFlavo [facility] [id number] Memoria 19:12:00 23:03:00 r Sandro 01 [facility] 2018-01-31 2018-01-31 Outpatient Diego [facility] [id number] 14:12:00 18:03:00 Hardik Montemayor 2018-01-31 2018-01-31 Emergency nullFlavo [facility] [id number] Memoria 10:46:00 18:01:00 r Webster 03 [facility] 2018-01-31 2018-01-31 Emergency nullFlavo [facility] [id number] Memoria 10:46:00 18:01:00 r Webster 03 [facility] 2018-01-31 2018-01-31 Outpatient Patricia [facility] [id number] 05:46:00 13:01:00 Kel Cadena 2017-07-02 2017-07-02 Emergency E [facility] [id number] [address] 08:16:00 08:16:00 [facility] 2017-06-28 2017-06-28 Emergency nullFlavo [facility] [id number] Memoria 09:28:00 14:45:00 r Sandro 00 l [facility] 2017-06-28 2017-06-28 Emergency nullFlavo [facility] [id number] Memoria 09:28:00 14:45:00 r Webster 00 l [facility] 2017-06-28 2017-06-28 Outpatient Glenny [facility] [id number] 04:28:00 09:45:00 Semaj Maximino 00 Results Test Description Test Test Results Result Source Time Comments Comments XR FOOT 3+ VW 2018-11- No acute osseous Univ ersity of RIGHT 25 injury identified. [facility] 09:14:11 Severe osteoarthritis Bra nch of the [...] Comme nts POCT GLU (test code = 8702457448) 111 mg/dL 70-110 H Lab Interpretation (test code = 56743-0) Abnormal [facility] [id number] 08:06:00 Test Item Value Reference Range Interpretation Comments SCAN RESULT (test code = 2067988) CELIAC DISEASE PROFILE Refer to Celiac AUTOVERIFICATION (QUEST) Disease Panel (test code = 1263791) results. CT, [id number] 19:42:00Only need IV contrast, not POFINAL REPORT [...] MDReport Verified Date/Time: 09/05/2018 19:42:13 Reading Location: [facility] C013W Consult Reading Room RAD, ABDOMEN/KUB, 1 VIEW [id number] 15:30:00Reason for exam:->look for retained video capsuleAddendum BeginsREPORT STATUS:A Addendum:The video capsule is seen projected over the right iliac wing. It could be in the distal ileum versus large bowel. If in exact location is needed. CT scan will be necessary. End of addendum. Signed: Reza Huitron MDReport Verified Date/Time: 09/05/2018 15:30:35 Reading Location: [facility] Radiology Reading RoomAddendum EndsFINAL REPORT TECHNIQUE: Supine radiograph of the abdomen dated 09/05/2018 HISTORY: Evaluate for retained video capsule. COMPARISON: None IMPRESSION:No air-filled, dilated loops of bowel to suggest obstruction. No free intraperitoneal air. No abnormal soft tissue mass. No radiodense foreign body visualized. Bones are unremarkable. Signed: Reza Huitron MDReport Verified Date/Time: 09/05/2018 14:53:33 Reading Location: [facility] Radiology Reading Room GI PATHOGEN PROFILE BY [id number] 10:43:00 Test Item Value Reference Range Interpretation [...] Not detected BY PCR (test code = 3196656) ENTEROPATHOGENIC E. COLI (EPEC) Not detected Not detected BY PCR (test code = 7933934) ENTEROTOXIGENIC E. COLI (ETEC) Not detected Not detected LT/ST BY PCR (test code = 0264053) SHIGA-LIKE TOXIN-PRODUCING E. Not detected Not detected COLI (STEC) STX1/STX2 (test code = 5713699) E. COLI O157 (PCR) (test code = Not detected 20151109) SHIGELLA/ENTEROINVASIVE E. COLI Not detected Not detected (EIEC) BY PCR (test code = 7309716) CRYPTOSPORIDIUM (PCR) (test code Not detected Not [...] (test Not detected Not detected code = 1330370) ROTAVIRUS A (PCR) (test code = Not detected Not detected 20151209) SAPOVIRUS (I, II, IV, V) BY PCR Not detected Not detected (test code = 2145836) VIBRIO (PARAHAEMOLYTICUS, Not detected Not detected VULNIFICUS) (test code = 9843006) Other viruses, parasites and bacteria not targeted by this PCR panel cannot be excluded; therefore clinical correlation and follow up of serology, culture results, and other molecular studies is required. The results are not intended to be used as the sole means for clinical diagnosis or patient management decisions. This sample was tested at the [facility] using the [employer] Gastrointestinal Panel. It is FDA cleared and has been verified and approved by the [facility] for clinical use. This laboratory is CLIA-certified and College ofAmerican Pathologists (CAP)-accredited to perform high complexity testing.BASIC METABOLIC [id number] 05:42:00 Test Item Value Reference Range Interpretation [...] 0-0 (BEAKER) (test code = 413) C-REACTIVE [id number] 18:59:00 Test Item Value Reference Range Interpretation Comments C-REACTIVE PROTEIN (BEAKER) (test 0.38 mg/dL 0.00-0.50 code = 676) [id number] 05:48:00 Test Item Value Reference Range Interpretation Comments FERRITIN (BEAKER) (test code = 361) 13 ng/mL 5-275 BASIC METABOLIC [id number] 05:27:00 Test Item Value Reference Range Interpretation [...] 0-0 (BEAKER) (test code = 413) RETICULOCYTE [id number] 05:05:00 Test Item Value Reference Range Interpretation Comments RETICULOCYTE COUNT PCT (BEAKER) (test 1.1 % 0.5-1.7 code = 575) SCREEN, [id number] 15:17:00 Test Item Value Reference Range Interpretation Comments TEST URINE (BEAKER) (test Negative code = 583) BASIC METABOLIC [id number] 04:53:00 Test Item Value Reference Range Interpretation [...] 0-0 (BEAKER) (test code = 413) CHEM [id number] 03:57:00 Test Item Value Reference Range Interpretation Comments Globulin (test code = Globulin) 3.0 2.7-4.2 [facility] [id number] 03:57:00 Test Item Value Reference Range Interpretation Comments Bili Indirect (test 0.3 See_Comment [Automa ann marie message] The code = Bili Indirect) system which generated this result tra nsmitted reference range : <=1.0. The reference r corazon was not used to int erpret this result as normal/abnormal . [facility]2019-01-11 03:57:00 Test Item Value Reference Range Interpretation Comments A/G Ratio (test code = A/G Ratio) 1.0 1 0.7-1.6 [facility]2019-01-11 03:57:00 Test Item Value Reference Range Interpretation Comments Bili Direct (test code 0.1 See_Comment [Aut omated message] The = Bili Direct) system which generated this result tra nsmitted reference range : <=0.3. The reference r corazon was not used to int erpret this result as juan l/abnormal. [facility]2019-01-11 03:57:00 Test Item Value Reference Range Interpretation Comments Bili Total (test code = Bili Total) 0.4 0.2-1.3 [facility]2019-01-11 03:57:00 Test Item Value Reference Range Interpretation Comments Alk Phos (test code = Alk Phos) 49 39-136 [facility]ookFR[id number] 03:57:00 Test Item Value Reference Range Interpretation Comments AST (test code = AST) 24 See_Comment [Auto mated message] The system which ge nerated this result transmit ann marie reference range : <=37. The reference range was not used to interpr et this result as juan l/abnormal. [facility] Capture [id number] 03:57:00 Test Item Value Reference Range Interpretation Comments Total Protein (test code = Total 6.0 6.4-8.4 Protein) [facility]2019-01-11 03:57:00 Test Item Value Reference Range Interpretation Comments ALT (test code = ALT) 19 See_Comment [Auto mated message] The system which ge nerated this result transmit ann marie reference range : <=65. The reference range was not used to interpr et this result as juan l/abnormal. [facility] [id number] 03:57:00 Test Item Value Reference Range Interpretation Comments Albumin Lvl (test code = Albumin Lvl) 3.0 3.5-5.0 [place] 192499-01-11 03:57:00 Test Item Value Reference Range Interpretation Comments Globulin (test code = Globulin) 3.0 2.7-4.2 [place] 192499-01-11 03:57:00 Test Item Value Reference Range Interpretation Comments Bili Indirect (test 0.3 See_Comment [Automa ann marie message] The code = Bili Indirect) system which generated this result tra nsmitted reference range : <=1.0. The reference r corazon was not used to int erpret this result as normal/abnormal . [place] 192499-01-11 03:57:00 Test Item Value Reference Range Interpretation Comments A/G Ratio (test code = A/G Ratio) 1.0 1 0.7-1.6 [place] 192499-01-11 03:57:00 Test Item Value Reference Range Interpretation Comments Bili Direct (test code 0.1 See_Comment [Aut omated message] The = Bili Direct) system which generated this result tra nsmitted reference range : <=0.3. The reference r corazon was not used to int erpret this result as juan l/abnormal. [facility]2019-01-11 03:57:00 Test Item Value Reference Range Interpretation Comments Bili Total (test code = Bili Total) 0.4 0.2-1.3 [place] 192499-01-11 03:57:00 Test Item Value Reference Range Interpretation Comments Alk Phos (test code = Alk Phos) 49 39-136 [facility]2019-01-11 03:57:00 Test Item Value Reference Range Interpretation Comments AST (test code = AST) 24 See_Comment [Auto mated message] The system which ge nerated this result transmit ann marie reference range : <=37. The reference range was not used to interpr et this result as juan l/abnormal. [place] 192499-01-11 03:57:00 Test Item Value Reference Range Interpretation Comments Total Protein (test code = Total 6.0 6.4-8.4 Protein) [facility]2019-01-11 03:57:00 Test Item Value Reference Range Interpretation Comments ALT (test code = ALT) 19 See_Comment [Auto mated message] The system which ge nerated this result transmit ann marie reference range : <=65. The reference range was not used to interpr et this result as juan l/abnormal. [facility]2019-01-11 03:57:00 Test Item Value Reference Range Interpretation Comments Albumin Lvl (test code = Albumin Lvl) 3.0 3.5-5.0 [facility] RockPrglxyvVFRXZIFICE8162-34-60 21:07:00 Test Item Value Reference Range Interpretation Comments Estimated % Lysis Rapid 2.1 See_Comment [Au tomated message] The (test code = Estimated syste m which generated % Lysis Rapid) this result t ransmitted reference range : <=7.5. The reference r corazon was not used to int erpret this result as normal/abnormal . [facility]2019-01-10 21:07:00 Test Item Value Reference Range Interpretation Comments Chloride Lvl (test code = Chloride Lvl) 112 95-109 [facility]2019-01-10 21:07:00 Test Item Value Reference Range Interpretation Comments CO2 (test code = CO2) 23 24-32 [facility]2019-01-10 21:07:00 Test Item Value Reference Range Interpretation Comments Creatinine Lvl (test code = Creatinine 0.58 0.50-1.40 Lvl) [facility]2019-01-10 21:07:00 Test Item Value Reference Range Interpretation Comments Sodium Lvl (test code = Sodium Lvl) 144 135-145 [facility]2019-01-10 21:07:00 Test Item Value Reference Range Interpretation Comments Potassium Lvl (test code = Potassium 4.4 3.5-5.1 Lvl) [facility]2019-01-10 21:07:00 Test Item Value Reference Range Interpretation Comments Calcium Lvl (test code = Calcium Lvl) 8.6 8.5-10.5 [facility]2019-01-10 21:07:00 Test Item Value Reference Range Interpretation Comments BUN (test code = BUN) 7 7-22 [facility]2019-01-10 21:07:00 Test Item Value Reference Range Interpretation Comments Glucose Lvl (test code = Glucose Lvl) 107 70-99 [facility]2019-01-10 21:07:00 Test Item Value Reference Range Interpretation Comments AGAP (test code = AGAP) 13.4 10.0-20.0 [facility] RockOubqafjMONGBZDYLO0320-24-23 21:07:00 Test Item Value Reference Range Interpretation Comments Estimated % Lysis Rapid 2.1 See_Comment [Au tomated message] The (test code = Estimated syste m which generated % Lysis Rapid) this result t ransmitted reference range : <=7.5. The reference r corazon was not used to int erpret this result as normal/abnormal . [facility] RockWhvewtrAFJUPVFNYI8503-86-98 21:07:00 Test Item Value Reference Range Interpretation Comments Angle Rapid (test code = Angle 75 degrees 64-80 Rapid) [facility] RockWrhmdxaOZYSTCLADK0079-20-94 21:07:00 Test Item Value Reference Range Interpretation Comments Angle Rapid (test code = Angle 75 degrees 64-80 Rapid) [facility] RockZbuqwqgPWLZMHGRCC6243-86-09 21:07:00 Test Item Value Reference Range Interpretation Comments G-value Rapid (test code = G-value 8.6 5.0-11.6 Rapid) [facility] RockEfceduoTQYFZGEGHG3446-78-40 21:07:00 Test Item Value Reference Range Interpretation Comments Max Amplitude Rapid (test code = Max 63 mm 52-71 Amplitude Rapid) [facility] RockHzlbwsuEMRFRLHRDU5716-10-31 21:07:00 Test Item Value Reference Range Interpretation Comments R-time Rapid (test code = R-time 0.7 min 0.4-0.7 Rapid) [facility] RockQtphtffUFKMROGNTZ7687-48-84 21:07:00 Test Item Value Reference Range Interpretation Comments K-time Rapid (test code = K-time 1.2 min 0.6-2.3 Rapid) [facility] RockOsstureSCVLKEZRSE2351-66-62 21:07:00 Test Item Value Reference Range Interpretation Comments ACT (TEG) Rapid (test code = ACT (TEG) 113 s 86-118 Rapid) [facility] RockPqlaairYSKGTIGRRR5985-37-11 21:07:00 Test Item Value Reference Range Interpretation Comments Split Point Rapid (test code = Split 0.6 min Point Rapid) [facility] RockLtamqxzSMBNVNCAQH5084-86-60 21:07:00 Test Item Value Reference Range Interpretation Comments PTT (test code = PTT) 30.6 s 22.9-35.8 [facility] RockQsmjvlkOXILGPGDNO2441-85-18 21:07:00 Test Item Value Reference Range Interpretation Comments INR (test code = INR) 1.03 1 0.85-1.17 [facility] RockPxejpkdFGSUMRQVNE5259-70-36 21:07:00 Test Item Value Reference Range Interpretation Comments PT (test code = PT) 13.3 s 12.0-14.7 [facility] RockXgxxqmgXYOBTASPQT5368-57-13 21:07:00 Test Item Value Reference Range Interpretation Comments G-value Rapid (test code = G-value 8.6 5.0-11.6 Rapid) [facility] RockYavlrgaJWVLKRJTBT9835-38-92 21:07:00 Test Item Value Reference Range Interpretation Comments Hgb (test code = Hgb) 11.1 12.0-16.0 [facility] RockOyoljnzINXHCKEHUK7503-14-36 21:07:00 Test Item Value Reference Range Interpretation Comments Hct (test code = Hct) 33.7 36.0-48.0 [facility] RockCvqzpsyHSPFDLWEHJ0132-54-55 21:07:00 Test Item Value Reference Range Interpretation Comments RBC (test code = RBC) 4.04 4.20-5.40 [facility] RockDozhriqRAGZZSXJQY2112-32-92 21:07:00 Test Item Value Reference Range Interpretation Comments WBC (test code = WBC) 5.8 3.7-10.4 [facility] RockTlfglffODKRJVFALD0705-67-29 21:07:00 Test Item Value Reference Range Interpretation Comments RDW (test code = RDW) 17.2 11.5-14.5 [facility] RockTybgvaiYBIZTXGHKK8966-93-84 21:07:00 Test Item Value Reference Range Interpretation Comments Platelet (test code = Platelet) 365 133-450 [facility] RockNaqepnkHPFFTOOPVU1909-24-75 21:07:00 Test Item Value Reference Range Interpretation Comments MCHC (test code = MCHC) 32.9 32.0-36.0 [facility] RockImisytnUEYQEULZWH7360-99-80 21:07:00 Test Item Value Reference Range Interpretation Comments MCV (test code = MCV) 83.5 80.0-98.0 [facility] RockGznnsorKJBLEMHZMC7963-36-33 21:07:00 Test Item Value Reference Range Interpretation Comments MCH (test code = MCH) 27.5 pg 27.0-31.0 [facility] RockLjkpbjyEKIERQGPJS0661-70-57 21:07:00 Test Item Value Reference Range Interpretation Comments MPV (test code = MPV) 8.4 7.4-10.4 [facility] RockOiyfphgAHTWRHBAZT8819-35-67 21:07:00 Test Item Value Reference Range Interpretation Comments Max Amplitude Rapid (test code = Max 63 mm 52-71 Amplitude Rapid) [facility] RockOhpctawOBRJKXBDFI9466-62-77 21:07:00 Test Item Value Reference Range Interpretation Comments Segs (test code = Segs) 56.3 45.0-75.0 [facility] RockLkoqotpTUFLZWKNMM8829-35-03 21:07:00 Test Item Value Reference Range Interpretation Comments Lymphocytes (test code = Lymphocytes) 29.4 20.0-40.0 [facility] RockRrxuwxbFNCQHTRSQH8948-21-31 21:07:00 Test Item Value Reference Range Interpretation Comments Monocytes (test code = Monocytes) 9.6 2.0-12.0 [facility] RockVhiluqpUTQCNGJYFZ8503-14-80 21:07:00 Test Item Value Reference Range Interpretation Comments Eosinophils (test code = 4.0 See_Comment [A utomated message] The Eosinophils) system which ge nerated this result tra nsmitted reference range : <=4.0. The reference r corazon was not used to int erpret this result as normal/abnormal . [facility] RockHezjuwzZIBFVPAYRE8555-68-38 21:07:00 Test Item Value Reference Range Interpretation Comments R-time Rapid (test code = R-time 0.7 min 0.4-0.7 Rapid) [facility] RockXdkcpilBIRSDFOZOP1794-77-05 21:07:00 Test Item Value Reference Range Interpretation Comments K-time Rapid (test code = K-time 1.2 min 0.6-2.3 Rapid) [facility] RockGgltvxlWTFPXIGUKG1205-03-87 21:07:00 Test Item Value Reference Range Interpretation Comments ACT (TEG) Rapid (test code = ACT (TEG) 113 s 86-118 Rapid) [facility] RockDczxjldVTRNVCASZE0248-01-47 21:07:00 Test Item Value Reference Range Interpretation Comments Split Point Rapid (test code = Split 0.6 min Point Rapid) [facility] RockIhubeqyTQHKVHDCEI7288-69-42 21:07:00 Test Item Value Reference Range Interpretation Comments PTT (test code = PTT) 30.6 s 22.9-35.8 [facility] RockQrmscpbTDYAHPZUOX7140-43-48 21:07:00 Test Item Value Reference Range Interpretation Comments INR (test code = INR) 1.03 1 0.85-1.17 [facility] RockFayhxuvUPOWNBSKBJ4297-27-58 21:07:00 Test Item Value Reference Range Interpretation Comments PT (test code = PT) 13.3 s 12.0-14.7 [facility] RockXknayquPUKQERKSYN8056-47-87 21:07:00 Test Item Value Reference Range Interpretation Comments Hgb (test code = Hgb) 11.1 12.0-16.0 [facility] RockNpokxykCSLFMTYRKJ2644-38-43 21:07:00 Test Item Value Reference Range Interpretation Comments Hct (test code = Hct) 33.7 36.0-48.0 [facility] RockWblwsmiZOIJCYSMGO7704-15-72 21:07:00 Test Item Value Reference Range Interpretation Comments RBC (test code = RBC) 4.04 4.20-5.40 [facility] RockYvrczuyAGFFWMIUVK3936-16-03 21:07:00 Test Item Value Reference Range Interpretation Comments WBC (test code = WBC) 5.8 3.7-10.4 [facility] RockAwafjviXAIAPBMJFY5856-53-97 21:07:00 Test Item Value Reference Range Interpretation Comments RDW (test code = RDW) 17.2 11.5-14.5 [facility] RockZyqnwvdMLDCPJFFRH8568-04-65 21:07:00 Test Item Value Reference Range Interpretation Comments Platelet (test code = Platelet) 365 133-450 [facility] RockHqcqyqnLRHMOGZHPU3901-61-16 21:07:00 Test Item Value Reference Range Interpretation Comments MCHC (test code = MCHC) 32.9 32.0-36.0 [facility] RockHgpedekLEKHEPWNOT3607-27-34 21:07:00 Test Item Value Reference Range Interpretation Comments MCV (test code = MCV) 83.5 80.0-98.0 [facility] RockOwebiuvLCGAZZSUFC4245-24-30 21:07:00 Test Item Value Reference Range Interpretation Comments MCH (test code = MCH) 27.5 pg 27.0-31.0 [facility] RockZywxaahRIEILYCCJO2138-06-48 21:07:00 Test Item Value Reference Range Interpretation Comments MPV (test code = MPV) 8.4 7.4-10.4 [facility] RockIjaypeiYMQTFMDSCP1364-59-80 21:07:00 Test Item Value Reference Range Interpretation Comments Segs (test code = Segs) 56.3 45.0-75.0 [facility] RockDcegxheZGTVYBURNJ3802-08-74 21:07:00 Test Item Value Reference Range Interpretation Comments Lymphocytes (test code = Lymphocytes) 29.4 20.0-40.0 [facility] RockYrzlycsYHXBEJXRLW9997-86-31 21:07:00 Test Item Value Reference Range Interpretation Comments Monocytes (test code = Monocytes) 9.6 2.0-12.0 [facility] RockUnekdbvPLMNOWODPU9397-81-21 21:07:00 Test Item Value Reference Range Interpretation Comments Eosinophils (test code = 4.0 See_Comment [A utomated message] The Eosinophils) system which ge nerated this result tra nsmitted reference range : <=4.0. The reference r corazon was not used to int erpret this result as normal/abnormal . [facility] RockVhfuixaXGVAKCCEXW0860-72-02 21:07:00 Test Item Value Reference Range Interpretation Comments Basophils (test code = 0.7 See_Comment [Aut omated message] The Basophils) system which ge nerated this result tra nsmitted reference range : <=1.0. The reference r corazon was not used to int erpret this result as normal/abnormal . [facility] RockEnouxarZIMIXJIWFA8540-69-69 21:07:00 Test Item Value Reference Range Interpretation Comments Neutrophils # (test code = Neutrophils 3.3 1.5-8.1 #) [facility] RockRetelsjKATHQWNSBX6456-09-23 21:07:00 Test Item Value Reference Range Interpretation Comments Lymphocytes # (test code = Lymphocytes 1.7 1.0-5.5 #) [facility] RockZihtpxgCSYXTHYECN9018-09-65 21:07:00 Test Item Value Reference Range Interpretation Comments Monocytes # (test code 0.6 See_Comment [Aut omated message] The = Monocytes #) system which generated this result tra nsmitted reference range : <=0.8. The reference r corazon was not used to int erpret this result as normal/abnormal . [facility] RockOcumjuzIFJMIYJVLI5575-67-91 21:07:00 Test Item Value Reference Range Interpretation Comments Eosinophils # (test code 0.2 See_Comment [A utomated message] The = Eosinophils #) system whic h generated this result tra nsmitted reference range : <=0.5. The reference r corazon was not used to int erpret this result as normal/abnormal . [facility]2019-01-10 21:07:00 Test Item Value Reference Range Interpretation Comments eGFR (test code = eGFR) 109 [facility]2019-01-10 21:07:00 Test Item Value Reference Range Interpretation Comments Chloride Lvl (test code = Chloride Lvl) 112 95-109 [facility]2019-01-10 21:07:00 Test Item Value Reference Range Interpretation Comments CO2 (test code = CO2) 23 24-32 [facility]2019-01-10 21:07:00 Test Item Value Reference Range Interpretation Comments Creatinine Lvl (test code = Creatinine 0.58 0.50-1.40 Lvl) [facility]2019-01-10 21:07:00 Test Item Value Reference Range Interpretation Comments Sodium Lvl (test code = Sodium Lvl) 144 135-145 [facility]2019-01-10 21:07:00 Test Item Value Reference Range Interpretation Comments Potassium Lvl (test code = Potassium 4.4 3.5-5.1 Lvl) [facility]2019-01-10 21:07:00 Test Item Value Reference Range Interpretation Comments Calcium Lvl (test code = Calcium Lvl) 8.6 8.5-10.5 [facility]2019-01-10 21:07:00 Test Item Value Reference Range Interpretation Comments BUN (test code = BUN) 7 7-22 [facility]2019-01-10 21:07:00 Test Item Value Reference Range Interpretation Comments Glucose Lvl (test code = Glucose Lvl) 107 70-99 [facility]2019-01-10 21:07:00 Test Item Value Reference Range Interpretation Comments AGAP (test code = AGAP) 13.4 10.0-20.0 [facility] RockKglsialDMYBIPVLMO6211-03-13 21:07:00 Test Item Value Reference Range Interpretation Comments Basophils (test code = 0.7 See_Comment [Aut omated message] The Basophils) system which ge nerated this result tra nsmitted reference range : <=1.0. The reference r corazon was not used to int erpret this result as normal/abnormal . [facility] RockKnxnxglDSAJJCOWFN1602-21-84 21:07:00 Test Item Value Reference Range Interpretation Comments Neutrophils # (test code = Neutrophils 3.3 1.5-8.1 #) [facility] RockSmchugcAOUUPKCVHY5466-88-47 21:07:00 Test Item Value Reference Range Interpretation Comments Lymphocytes # (test code = Lymphocytes 1.7 1.0-5.5 #) [facility] RockClrrlkrRLLPVIHZJK1001-47-58 21:07:00 Test Item Value Reference Range Interpretation Comments Monocytes # (test code 0.6 See_Comment [Aut omated message] The = Monocytes #) system which generated this result tra nsmitted reference range : <=0.8. The reference r corazon was not used to int erpret this result as normal/abnormal . [facility] RockZalusrxSZXQJTKJBQ6917-85-30 21:07:00 Test Item Value Reference Range Interpretation Comments Eosinophils # (test code 0.2 See_Comment [A utomated message] The = Eosinophils #) system whic h generated this result tra nsmitted reference range : <=0.5. The reference r corazon was not used to int erpret this result as normal/abnormal . [facility] [employer] [id number] 21:07:00 Test Item Value Reference Range Interpretation Comments eGFR (test code = eGFR) 109 [facility] [id number] 11:47:00 Test Item Value Reference Range Interpretation Comments Antibody Scrn (test Negative (01/31/18 code = Antibody Scrn) 6:47 AM) [facility] [id number] 11:47:00 Test Item Value Reference Range Interpretation Comments ABO/Rh (test code = ABO/Rh) O POS [facility] [id number] 11:47:00 Test Item Value Reference Range Interpretation Comments Antibody Scrn (test Negative (01/31/18 code = Antibody Scrn) 6:47 AM) [facility] [id number] 11:47:00 Test Item Value Reference Range Interpretation Comments ABO/Rh (test code = ABO/Rh) O POS [employer]2018-10-30 11:41:00 Test Item Value Reference Range Interpretation Comments eGFR (test code = eGFR) 105 [facility] [employer]2018-10-30 11:41:00 Test Item Value Reference Range Interpretation Comments Calcium Lvl (test code = Calcium Lvl) 8.3 8.5-10.5 [facility] [employer]2018-10-30 11:41:00 Test Item Value Reference Range Interpretation Comments Chloride Lvl (test code = Chloride Lvl) 108 95-109 [facility]2018-10-30 11:41:00 Test Item Value Reference Range Interpretation Comments CO2 (test code = CO2) 27 24-32 [facility]2018-10-30 11:41:00 Test Item Value Reference Range Interpretation Comments Glucose Lvl (test code = Glucose Lvl) 95 70-99 [facility]2018-10-30 11:41:00 Test Item Value Reference Range Interpretation Comments Potassium Lvl (test code = Potassium 4.2 3.5-5.1 Lvl) [facility]2018-10-30 11:41:00 Test Item Value Reference Range Interpretation Comments Creatinine Lvl (test code = Creatinine 0.65 0.50-1.40 Lvl) [facility]2018-10-30 11:41:00 Test Item Value Reference Range Interpretation Comments BUN (test code = BUN) 11 7-22 [facility]2018-10-30 11:41:00 Test Item Value Reference Range Interpretation Comments Sodium Lvl (test code = Sodium Lvl) 139 135-145 [facility]2018-10-30 11:41:00 Test Item Value Reference Range Interpretation Comments AGAP (test code = AGAP) 8.2 10.0-20.0 [facility]2018-10-30 11:41:00 Test Item Value Reference Range Interpretation Comments Lactic Acid Lvl (test code = Lactic 0.8 0.5-2.2 Acid Lvl) [facility] [id number] 11:41:00 Test Item Value Reference Range Interpretation Comments UDS Note (test code = See Note (01/31/18 6:41 UDS Note) AM) [facility] [id number] 11:41:00 Test Item Value Reference Range Interpretation Comments U Cocaine Scr (test Negative *NA*(01/31/18 code = U Cocaine Scr) 6:41 AM) [facility] [id number] 11:41:00 Test Item Value Reference Range Interpretation Comments U Benzodiaz Scr (test Negative *NA*(01/31/18 code = U Benzodiaz Scr) 6:41 AM) [facility] [id number] 11:41:00 Test Item Value Reference Range Interpretation Comments U Phencyclidine Scr (test Negative code = U Phencyclidine *NA*(01/31/18 6:41 Scr) AM) [facility] [id number] 11:41:00 Test Item Value Reference Range Interpretation Comments U Opiate Scr (test Negative *NA*(01/31/18 code = U Opiate Scr) 6:41 AM) [facility] [id number] 11:41:00 Test Item Value Reference Range Interpretation Comments U Cannab Scr (test Negative *NA*(01/31/18 code = U Cannab Scr) 6:41 AM) [facility] [id number] 11:41:00 Test Item Value Reference Range Interpretation Comments U Amph Scr (test code Negative *NA*(01/31/18 = U Amph Scr) 6:41 AM) [facility] [id number] 11:41:00 Test Item Value Reference Range Interpretation Comments U Reta Scr (test code Negative *NA*(01/31/18 = U Reta Scr) 6:41 AM) [facility]lakeW[id number] 11:41:00 Test Item Value Reference Range Interpretation Comments S Preg (test code = S Negative *NA*(01/31/18 Preg) 6:41 AM) [facility] RockLuxpdjuZOJNTREFEF8048-49-50 11:41:00 Test Item Value Reference Range Interpretation Comments Monocytes # (test code 0.7 See_Comment [Aut omated message] The = Monocytes #) system which generated this result tra nsmitted reference range : <=0.8. The reference r corazon was not used to int erpret this result as normal/abnormal . [facility]UnpjfrbALEDFSIPKT7631-35-15 11:41:00 Test Item Value Reference Range Interpretation Comments Lymphocytes # (test code = Lymphocytes 2.9 1.0-5.5 #) [facility] CenterOmdetcaOUSDVPEDFI7219-61-99 11:41:00 Test Item Value Reference Range Interpretation Comments Eosinophils # (test code 0.2 See_Comment [A utomated message] The = Eosinophils #) system whic h generated this result tra nsmitted reference range : <=0.5. The reference r corazon was not used to int erpret this result as normal/abnormal . [facility] RockBcdwdttXFGTDIWNRM8733-35-56 11:41:00 Test Item Value Reference Range Interpretation Comments Segs (test code = Segs) 55.3 45.0-75.0 [facility] RockZqkitqdYITLOHJNCP9241-59-53 11:41:00 Test Item Value Reference Range Interpretation Comments Lymphocytes (test code = Lymphocytes) 33.5 20.0-40.0 [facility] RockZpwmbfhCVZDCRFDFU3698-74-83 11:41:00 Test Item Value Reference Range Interpretation Comments Monocytes (test code = Monocytes) 8.5 2.0-12.0 [facility] RockFvaopxgCOJJEXSPJM3843-54-68 11:41:00 Test Item Value Reference Range Interpretation Comments Basophils (test code = 0.4 See_Comment [Aut omated message] The Basophils) system which ge nerated this result tra nsmitted reference range : <=1.0. The reference r corazon was not used to int erpret this result as normal/abnormal . [facility] RockDtfhyciSUTVMLYGAK5634-43-65 11:41:00 Test Item Value Reference Range Interpretation Comments Eosinophils (test code = 2.3 See_Comment [A utomated message] The Eosinophils) system which ge nerated this result tra nsmitted reference range : <=4.0. The reference r corazon was not used to int erpret this result as normal/abnormal . [facility] RockDwexilyAWHISEVFTU4605-66-54 11:41:00 Test Item Value Reference Range Interpretation Comments Neutrophils # (test code = Neutrophils 4.9 1.5-8.1 #) [facility] RockYqskrsmRMJKJFKRMC8443-31-18 11:41:00 Test Item Value Reference Range Interpretation Comments WBC (test code = WBC) 8.8 3.7-10.4 [facility] RockAyoserwMGJWZPKDYE7854-29-10 11:41:00 Test Item Value Reference Range Interpretation Comments MCH (test code = MCH) 28.1 pg 27.0-31.0 [facility] RockYfskizeOLYSHIUVMZ1503-63-52 11:41:00 Test Item Value Reference Range Interpretation Comments MCHC (test code = MCHC) 32.9 32.0-36.0 [facility] RockKhbvdnwRYJEIMRHVW0562-42-52 11:41:00 Test Item Value Reference Range Interpretation Comments RDW (test code = RDW) 15.9 11.5-14.5 [facility] RockPpwdbwuPCQAZMLTXV9530-82-90 11:41:00 Test Item Value Reference Range Interpretation Comments RBC (test code = RBC) 4.10 4.20-5.40 [facility] RockAdsbdstFZSVTPSRQV3393-51-60 11:41:00 Test Item Value Reference Range Interpretation Comments Hct (test code = Hct) 34.9 36.0-48.0 [facility] RockXvmxdydRFYDEFKUSC9604-29-51 11:41:00 Test Item Value Reference Range Interpretation Comments MCV (test code = MCV) 85.2 80.0-98.0 [facility] RockWbtoyzlMOZFHICVOZ9903-97-51 11:41:00 Test Item Value Reference Range Interpretation Comments Hgb (test code = Hgb) 11.5 12.0-16.0 [facility] RockKaxqaqjEPFGMFKLTJ0621-73-51 11:41:00 Test Item Value Reference Range Interpretation Comments Platelet (test code = Platelet) 312 133-450 [facility] RockHwdmygmAQSEXYURIP2873-39-52 11:41:00 Test Item Value Reference Range Interpretation Comments MPV (test code = MPV) 7.7 7.4-10.4 [facility] RockSdgksolTHOGTKNKRC8568-82-95 11:41:00 Test Item Value Reference Range Interpretation Comments ACT (TEG) Rapid (test code = ACT (TEG) 105 s 86-118 Rapid) [facility] RockPeqaoloTZSJLUAMDF0457-71-58 11:41:00 Test Item Value Reference Range Interpretation Comments Angle Rapid (test code = Angle 75 degrees 64-80 Rapid) [facility] RockNlkmoxaRELXHRWGCD4107-99-82 11:41:00 Test Item Value Reference Range Interpretation Comments K-time Rapid (test code = K-time 1.2 min 0.6-2.3 Rapid) [facility] RockQhxtizvPYZTPWWICG1834-91-58 11:41:00 Test Item Value Reference Range Interpretation Comments R-time Rapid (test code = R-time 0.6 min 0.4-0.7 Rapid) [facility] RockZfsaqtcLXLJAHWAAM9850-99-16 11:41:00 Test Item Value Reference Range Interpretation Comments Split Point Rapid (test code = Split 0.4 min Point Rapid) [facility] RockHprqevwKTCUYZCLKQ0447-11-91 11:41:00 Test Item Value Reference Range Interpretation Comments Estimated % Lysis Rapid 1.3 See_Comment [Au tomated message] The (test code = Estimated syste m which generated % Lysis Rapid) this result t ransmitted reference range : <=7.5. The reference r corazon was not used to int erpret this result as normal/abnormal . [facility] CenterIidkjocZKYVBORPKD4040-08-46 11:41:00 Test Item Value Reference Range Interpretation Comments G-value Rapid (test code = G-value 8.2 5.0-11.6 Rapid) [facility] CenterPjqswxeHMCHRUFJRV1769-17-76 11:41:00 Test Item Value Reference Range Interpretation Comments Max Amplitude Rapid (test code = Max 62 mm 52-71 Amplitude Rapid) [facility] CenterVnrmrhaLYLQTMPLDL7164-34-49 11:41:00 Test Item Value Reference Range Interpretation Comments [facility] HIV 4th GEN (test Negative *NA*(01/31/18 code = [facility] HIV 4th 6:41 AM) GEN) [facility] CenterOpngsnhPPFEBYURFG3586-93-37 11:41:00 Test Item Value Reference Range Interpretation Comments Ethanol Lvl (test code = Ethanol <3.0 mg/dL Lvl) [facility] 11:41:00 Test Item Value Reference Range Interpretation Comments Etoh (%) (test code = Etoh (%)) <0.003 % [facility] AND [id number] 11:41:00 Test Item Value Reference Range Interpretation Comments UA Sq Epi (test code = UA Sq Epi) Few /LPF [facility] AND [id number] 11:41:00 Test Item Value Reference Range Interpretation Comments UA WBC (test code = UA WBC) 0-2 /HPF [facility]2018-10-30 11:41:00 Test Item Value Reference Range Interpretation Comments UA RBC (test code = 0-2 /HPF See_Comment [Automa ann marie message] The UA RBC) system which ge nerated this result tra nsmitted reference range : <=2. The reference range was not used to interpr et this result as juan l/abnormal. [facility] AND [id number] 11:41:00 Test Item Value Reference Range Interpretation Comments UA Bacteria (test code = UA Occasional /HPF Bacteria) [facility] AND [id number] 11:41:00 Test Item Value Reference Range Interpretation Comments UA Urobilinogen (test code = UA 0.2 0.1-1.0 Urobilinogen) [facility] AND [id number] 11:41:00 Test Item Value Reference Range Interpretation Comments UA Blood (test code = Trace *ABN*(01/31/18 UA Blood) 6:41 AM) [facility] AND [id number] 11:41:00 Test Item Value Reference Range Interpretation Comments UA Bili (test code = Negative *NA*(01/31/18 UA Bili) 6:41 AM) [facility] AND [id number] 11:41:00 Test Item Value Reference Range Interpretation Comments UA Glucose (test code Negative (01/31/18 6:41 = UA Glucose) AM) [facility] AND [id number] 11:41:00 Test Item Value Reference Range Interpretation Comments UA pH (test code = UA pH) 7.0 1 5.0-8.0 [facility] AND [id number] 11:41:00 Test Item Value Reference Range Interpretation Comments UA Ketones (test code Negative *NA*(01/31/18 = UA Ketones) 6:41 AM) [facility] AND [id number] 11:41:00 Test Item Value Reference Range Interpretation Comments UA Protein (test code Negative (01/31/18 6:41 = UA Protein) AM) [facility] AND [id number] 11:41:00 Test Item Value Reference Range Interpretation Comments UA Leuk Est (test code Trace *ABN*(01/31/18 = UA Leuk Est) 6:41 AM) [facility] AND [id number] 11:41:00 Test Item Value Reference Range Interpretation Comments UA Nitrite (test code Negative (01/31/18 6:41 = UA Nitrite) AM) [facility] AND [id number] 11:41:00 Test Item Value Reference Range Interpretation Comments UA Spec Grav (test code = UA Spec 1.010 1 Grav) [facility] AND [id number] 11:41:00 Test Item Value Reference Range Interpretation Comments UA Color (test code = Yellow *NA*(01/31/18 UA Color) 6:41 AM) [facility] AND [id number] 11:41:00 Test Item Value Reference Range Interpretation Comments UA Turbidity (test code = Clear (01/31/18 6:41 UA Turbidity) AM) [facility] [id number] 11:41:00 Test Item Value Reference Range Interpretation Comments eGFR (test code = eGFR) 105 [facility]2018-10-30 11:41:00 Test Item Value Reference Range Interpretation Comments Calcium Lvl (test code = Calcium Lvl) 8.3 8.5-10.5 [facility]2018-10-30 11:41:00 Test Item Value Reference Range Interpretation Comments Chloride Lvl (test code = Chloride Lvl) 108 95-109 [facility]2018-10-30 11:41:00 Test Item Value Reference Range Interpretation Comments CO2 (test code = CO2) 27 24-32 [facility]2018-10-30 11:41:00 Test Item Value Reference Range Interpretation Comments Glucose Lvl (test code = Glucose Lvl) 95 70-99 [facility]2018-10-30 11:41:00 Test Item Value Reference Range Interpretation Comments Potassium Lvl (test code = Potassium 4.2 3.5-5.1 Lvl) [facility]2018-10-30 11:41:00 Test Item Value Reference Range Interpretation Comments Creatinine Lvl (test code = Creatinine 0.65 0.50-1.40 Lvl) [facility]2018-10-30 11:41:00 Test Item Value Reference Range Interpretation Comments BUN (test code = BUN) 11 7-22 [facility]2018-10-30 11:41:00 Test Item Value Reference Range Interpretation Comments Sodium Lvl (test code = Sodium Lvl) 139 135-145 [facility] [id number] 11:41:00 Test Item Value Reference Range Interpretation Comments AGAP (test code = AGAP) 8.2 10.0-20.0 [facility]Tri[facility] [id number] 11:41:00 Test Item Value Reference Range Interpretation Comments Lactic Acid Lvl (test code = Lactic 0.8 0.5-2.2 Acid Lvl) [facility] [id number] 11:41:00 Test Item Value Reference Range Interpretation Comments UDS Note (test code = See Note (01/31/18 6:41 UDS Note) AM) [facility] [id number] 11:41:00 Test Item Value Reference Range Interpretation Comments U Cocaine Scr (test Negative *NA*(01/31/18 code = U Cocaine Scr) 6:41 AM) [facility] [id number] 11:41:00 Test Item Value Reference Range Interpretation Comments U Benzodiaz Scr (test Negative *NA*(01/31/18 code = U Benzodiaz Scr) 6:41 AM) [facility]DR[facility] [id number] 11:41:00 Test Item Value Reference Range Interpretation Comments U Phencyclidine Scr (test Negative code = U Phencyclidine *NA*(01/31/18 6:41 Scr) AM) [facility] [id number] 11:41:00 Test Item Value Reference Range Interpretation Comments U Opiate Scr (test Negative *NA*(01/31/18 code = U Opiate Scr) 6:41 AM) [facility] [id number] 11:41:00 Test Item Value Reference Range Interpretation Comments U Cannab Scr (test Negative *NA*(01/31/18 code = U Cannab Scr) 6:41 AM) [facility] [id number] 11:41:00 Test Item Value Reference Range Interpretation Comments U Amph Scr (test code Negative *NA*(01/31/18 = U Amph Scr) 6:41 AM) [facility] [id number] 11:41:00 Test Item Value Reference Range Interpretation Comments U Reta Scr (test code Negative *NA*(01/31/18 = U Reta Scr) 6:41 AM) [facility] CenterEvnxosoJQTCYBTDAEFEZ8270-19-41 11:41:00 Test Item Value Reference Range Interpretation Comments S Preg (test code = S Negative *NA*(01/31/18 Preg) 6:41 AM) [facility] CenterQjhuujpVXDXNKPWNA9930-31-16 11:41:00 Test Item Value Reference Range Interpretation Comments Monocytes # (test code 0.7 See_Comment [Aut omated message] The = Monocytes #) system which generated this result tra nsmitted reference range : <=0.8. The reference r corazon was not used to int erpret this result as normal/abnormal . [facility] CenterLokedmmJQAPTIDZGV7636-77-70 11:41:00 Test Item Value Reference Range Interpretation Comments Lymphocytes # (test code = Lymphocytes 2.9 1.0-5.5 #) [facility] RockUoqpdrdQFQUMTUOVL2143-12-49 11:41:00 Test Item Value Reference Range Interpretation Comments Eosinophils # (test code 0.2 See_Comment [A utomated message] The = Eosinophils #) system whic h generated this result tra nsmitted reference range : <=0.5. The reference r corazon was not used to int erpret this result as normal/abnormal . [facility] RockFhiaseuXVTDOVUKVI3648-20-53 11:41:00 Test Item Value Reference Range Interpretation Comments Segs (test code = Segs) 55.3 45.0-75.0 [facility] RockTusejrbUEQPBJQLNC5172-49-54 11:41:00 Test Item Value Reference Range Interpretation Comments Lymphocytes (test code = Lymphocytes) 33.5 20.0-40.0 [facility] RockJzusnrzKVXLPXSOGO9035-44-62 11:41:00 Test Item Value Reference Range Interpretation Comments Monocytes (test code = Monocytes) 8.5 2.0-12.0 [facility] RockCjvjwbrCFCHXAIZTS4167-84-44 11:41:00 Test Item Value Reference Range Interpretation Comments Basophils (test code = 0.4 See_Comment [Aut omated message] The Basophils) system which ge nerated this result tra nsmitted reference range : <=1.0. The reference r corazon was not used to int erpret this result as normal/abnormal . [facility] RockGjeodpdFEWKIFUPVN6981-72-45 11:41:00 Test Item Value Reference Range Interpretation Comments Eosinophils (test code = 2.3 See_Comment [A utomated message] The Eosinophils) system which ge nerated this result tra nsmitted reference range : <=4.0. The reference r corazon was not used to int erpret this result as normal/abnormal . [facility] RockUhsmoxtJPMCIOLLON5469-05-49 11:41:00 Test Item Value Reference Range Interpretation Comments Neutrophils # (test code = Neutrophils 4.9 1.5-8.1 #) [facility] RockDrpzhooDUBGQTJVPI2394-75-90 11:41:00 Test Item Value Reference Range Interpretation Comments WBC (test code = WBC) 8.8 3.7-10.4 [facility] RockYiogofjCCMDILRRIB8444-10-45 11:41:00 Test Item Value Reference Range Interpretation Comments MCH (test code = MCH) 28.1 pg 27.0-31.0 [facility] RockLbldqroKYORLTTCGC0223-82-56 11:41:00 Test Item Value Reference Range Interpretation Comments MCHC (test code = MCHC) 32.9 32.0-36.0 [facility] RockDwmuuiaQKHTTAKHRR7468-68-66 11:41:00 Test Item Value Reference Range Interpretation Comments RDW (test code = RDW) 15.9 11.5-14.5 [facility] RockJjknrfkDXTKPXTFRN0712-36-22 11:41:00 Test Item Value Reference Range Interpretation Comments RBC (test code = RBC) 4.10 4.20-5.40 [facility] RockEwmjzxyIFDDZFOVHP5465-03-10 11:41:00 Test Item Value Reference Range Interpretation Comments Hct (test code = Hct) 34.9 36.0-48.0 [facility] RockJpvbcaxESAAUVZZDO4185-33-89 11:41:00 Test Item Value Reference Range Interpretation Comments MCV (test code = MCV) 85.2 80.0-98.0 [facility] RockIdkpvcyQMRLSXXWHO2096-40-68 11:41:00 Test Item Value Reference Range Interpretation Comments Hgb (test code = Hgb) 11.5 12.0-16.0 [facility] RockBgiwzzcAYIELDKZXM8338-98-52 11:41:00 Test Item Value Reference Range Interpretation Comments Platelet (test code = Platelet) 312 133-450 [facility] RockPfmvesiFISQQRCIRZ8100-77-83 11:41:00 Test Item Value Reference Range Interpretation Comments MPV (test code = MPV) 7.7 7.4-10.4 [facility] RockQzybvmeQSQEOODINR1936-76-82 11:41:00 Test Item Value Reference Range Interpretation Comments ACT (TEG) Rapid (test code = ACT (TEG) 105 s 86-118 Rapid) [facility] RockMvcxgnfABHISCRRRM1602-00-76 11:41:00 Test Item Value Reference Range Interpretation Comments Angle Rapid (test code = Angle 75 degrees 64-80 Rapid) [facility] RockBanphttZOIKYVIXSI2799-53-21 11:41:00 Test Item Value Reference Range Interpretation Comments K-time Rapid (test code = K-time 1.2 min 0.6-2.3 Rapid) [facility] RockPuiklehTIPJWMBVGD1186-59-19 11:41:00 Test Item Value Reference Range Interpretation Comments R-time Rapid (test code = R-time 0.6 min 0.4-0.7 Rapid) [facility]TcvyixoTLIFXGLGMF2511-81-79 11:41:00 Test Item Value Reference Range Interpretation Comments Split Point Rapid (test code = Split 0.4 min Point Rapid) [facility] RockPmoykgjQGUROJAGQE7714-07-20 11:41:00 Test Item Value Reference Range Interpretation Comments Estimated % Lysis Rapid 1.3 See_Comment [Au tomated message] The (test code = Estimated syste m which generated % Lysis Rapid) this result t ransmitted reference range : <=7.5. The reference r corazon was not used to int erpret this result as normal/abnormal . [facility] RockOlvcgrgKGEWQZSZKF0166-68-28 11:41:00 Test Item Value Reference Range Interpretation Comments G-value Rapid (test code = G-value 8.2 5.0-11.6 Rapid) [facility] RockNxdngbjVQFKISHCNT0559-20-31 11:41:00 Test Item Value Reference Range Interpretation Comments Max Amplitude Rapid (test code = Max 62 mm 52-71 Amplitude Rapid) [facility] CenterNwzxhljNAOJUNIJBS7170-80-66 11:41:00 Test Item Value Reference Range Interpretation Comments [facility] HIV 4th GEN (test Negative *NA*(01/31/18 code = [facility] HIV 4th 6:41 AM) GEN) [facility] CenterPaaghijJCKVSABCSZ8281-71-87 11:41:00 Test Item Value Reference Range Interpretation Comments Ethanol Lvl (test code = Ethanol <3.0 mg/dL Lvl) [facility] CenterHxbnihhUZNOXGOKFR8568-16-06 11:41:00 Test Item Value Reference Range Interpretation Comments Etoh (%) (test code = Etoh (%)) <0.003 % [facility] AND [id number] 11:41:00 Test Item Value Reference Range Interpretation Comments UA Sq Epi (test code = UA Sq Epi) Few /LPF [facility] AND [id number] 11:41:00 Test Item Value Reference Range Interpretation Comments UA WBC (test code = UA WBC) 0-2 /HPF [facility] AND [id number] 11:41:00 Test Item Value Reference Range Interpretation Comments UA RBC (test code = 0-2 /HPF See_Comment [Automa ann marie message] The UA RBC) system which ge nerated this result tra nsmitted reference range : <=2. The reference range was not used to interpr et this result as juan l/abnormal. [facility] AND [id number] 11:41:00 Test Item Value Reference Range Interpretation Comments UA Bacteria (test code = UA Occasional /HPF Bacteria) [facility] AND [id number] 11:41:00 Test Item Value Reference Range Interpretation Comments UA Urobilinogen (test code = UA 0.2 0.1-1.0 Urobilinogen) [facility] AND [id number] 11:41:00 Test Item Value Reference Range Interpretation Comments UA Blood (test code = Trace *ABN*(01/31/18 UA Blood) 6:41 AM) [facility] AND [id number] 11:41:00 Test Item Value Reference Range Interpretation Comments UA Bili (test code = Negative *NA*(01/31/18 UA Bili) 6:41 AM) [facility] AND [id number] 11:41:00 Test Item Value Reference Range Interpretation Comments UA Glucose (test code Negative (01/31/18 6:41 = UA Glucose) AM) [facility] AND [id number] 11:41:00 Test Item Value Reference Range Interpretation Comments UA pH (test code = UA pH) 7.0 1 5.0-8.[address] [facility] AND [id number] 11:41:00 Test Item Value Reference Range Interpretation Comments UA Ketones (test code Negative *NA*(01/31/18 = UA Ketones) 6:41 AM) [facility] AND [id number] 11:41:00 Test Item Value Reference Range Interpretation Comments UA Protein (test code Negative (01/31/18 6:41 = UA Protein) AM) [facility] AND [id number] 11:41:00 Test Item Value Reference Range Interpretation Comments UA Leuk Est (test code Trace *ABN*(01/31/18 = UA Leuk Est) 6:41 AM) [facility] AND [id number] 11:41:00 Test Item Value Reference Range Interpretation Comments UA Nitrite (test code Negative (01/31/18 6:41 = UA Nitrite) AM) [facility] AND [id number] 11:41:00 Test Item Value Reference Range Interpretation Comments UA Spec Grav (test code = UA Spec 1.010 1 Grav) [facility] AND [id number] 11:41:00 Test Item Value Reference Range Interpretation Comments UA Color (test code = Yellow *NA*(01/31/18 UA Color) 6:41 AM) [facility] AND [id number] 11:41:00 Test Item Value Reference Range Interpretation Comments UA Turbidity (test code = Clear (01/31/18 6:41 UA Turbidity) AM) [facility] [id number] 11:15:00 Test Item Value Reference Range Interpretation Comments Lipase Lvl (test code = Lipase Lvl) 172 73-393 [facility]2018-03-27 11:15:00 Test Item Value Reference Range Interpretation Comments Globulin (test code = Globulin) 3.5 2.7-4.2 [facility]2018-03-27 11:15:00 Test Item Value Reference Range Interpretation Comments A/G Ratio (test code = A/G Ratio) 1.1 1 0.7-1.6 [facility]2018-03-27 11:15:00 Test Item Value Reference Range Interpretation Comments B/C Ratio (test code = B/C Ratio) 13 1 6-25 [facility]2018-03-27 11:15:00 Test Item Value Reference Range Interpretation Comments AGAP (test code = AGAP) 13.6 10.0-20.0 [facility]2018-03-27 11:15:00 Test Item Value Reference Range Interpretation Comments Total Protein (test code = Total 7.2 6.4-8.4 Protein) [facility]2018-03-27 11:15:00 Test Item Value Reference Range Interpretation Comments Alk Phos (test code = Alk Phos) 56 39-136 [facility]2018-03-27 11:15:00 Test Item Value Reference Range Interpretation Comments Bili Total (test code = Bili Total) 0.2 0.2-1.3 [facility]2018-03-27 11:15:00 Test Item Value Reference Range Interpretation Comments Potassium Lvl (test code = Potassium 3.6 3.5-5.1 Lvl) [facility]2018-03-27 11:15:00 Test Item Value Reference Range Interpretation Comments Sodium Lvl (test code = Sodium Lvl) 139 135-145 [facility]2018-03-27 11:15:00 Test Item Value Reference Range Interpretation Comments Calcium Lvl (test code = Calcium Lvl) 8.9 8.5-10.5 [facility]2018-03-27 11:15:00 Test Item Value Reference Range Interpretation Comments Chloride Lvl (test code = Chloride Lvl) 105 95-109 [facility]2018-03-27 11:15:00 Test Item Value Reference Range Interpretation Comments eGFR (test code = eGFR) 107 [facility]2018-03-27 11:15:00 Test Item Value Reference Range Interpretation Comments ALT (test code = ALT) 24 See_Comment [Auto mated message] The system which ge nerated this result transmit ann marie reference range : <=65. The reference range was not used to interpr et this result as juan l/abnormal. [facility]2018-03-27 11:15:00 Test Item Value Reference Range Interpretation Comments AST (test code = AST) 20 See_Comment [Auto mated message] The system which ge nerated this result transmit ann marie reference range : <=37. The reference range was not used to interpr et this result as juan l/abnormal. [facility]2018-03-27 11:15:00 Test Item Value Reference Range Interpretation Comments CO2 (test code = CO2) 24 24-32 [facility]2018-03-27 11:15:00 Test Item Value Reference Range Interpretation Comments Albumin Lvl (test code = Albumin Lvl) 3.7 3.5-5.0 [facility]2018-03-27 11:15:00 Test Item Value Reference Range Interpretation Comments Creatinine Lvl (test code = Creatinine 0.63 0.50-1.40 Lvl) [facility]2018-03-27 11:15:00 Test Item Value Reference Range Interpretation Comments BUN (test code = BUN) 8 7-22 [facility]2018-03-27 11:15:00 Test Item Value Reference Range Interpretation Comments Glucose Lvl (test code = Glucose Lvl) 107 70-99 [facility]AodpcjjJMOROFOIZXEQU3933-81-57 11:15:00 Test Item Value Reference Range Interpretation Comments S Preg (test code = S Negative *NA*(06/28/17 Preg) 6:15 AM) [facility] RockOumkwprFNCLMVVWGM4510-05-13 11:15:00 Test Item Value Reference Range Interpretation Comments RDW (test code = RDW) 15.4 11.5-14.5 [facility] RockWxanynqEQWWUBIAQH0403-68-78 11:15:00 Test Item Value Reference Range Interpretation Comments MPV (test code = MPV) 7.7 7.4-10.4 [facility] RockMhpohlfODKMBWBOYN6185-90-37 11:15:00 Test Item Value Reference Range Interpretation Comments Platelet (test code = Platelet) 355 133-450 [facility] RockEtpdyzgEDGWVRULZW0030-04-63 11:15:00 Test Item Value Reference Range Interpretation Comments MCV (test code = MCV) 87.1 80.0-98.0 [facility] RockNrjdkctSIGUPAEHSX0641-55-91 11:15:00 Test Item Value Reference Range Interpretation Comments Hct (test code = Hct) 37.9 36.0-48.0 [facility] RockHxxxensACDHVVASMJ4059-60-35 11:15:00 Test Item Value Reference Range Interpretation Comments MCHC (test code = MCHC) 33.3 32.0-36.0 [facility] RockQohgmqiDVBPGPEXFY1455-57-69 11:15:00 Test Item Value Reference Range Interpretation Comments MCH (test code = MCH) 29.0 pg 27.0-31.0 [facility] RockPcvfwnpONBQMORVVP8571-82-68 11:15:00 Test Item Value Reference Range Interpretation Comments Hgb (test code = Hgb) 12.6 12.0-16.0 [facility] RockUeokqnuUKXBZKIJTA0111-39-19 11:15:00 Test Item Value Reference Range Interpretation Comments RBC (test code = RBC) 4.35 4.20-5.40 [facility] RockTchdbplWWXGQQPTHW0229-16-55 11:15:00 Test Item Value Reference Range Interpretation Comments WBC (test code = WBC) 10.7 3.7-10.4 [facility] RockSxhshzvOELCRZCAUO2613-73-89 11:15:00 Test Item Value Reference Range Interpretation Comments Monocytes # (test code 0.8 See_Comment [Aut omated message] The = Monocytes #) system which generated this result tra nsmitted reference range : <=0.8. The reference r corazon was not used to int erpret this result as normal/abnormal . [facility] RockVfzndfcLQSCDIDBZQ0449-18-84 11:15:00 Test Item Value Reference Range Interpretation Comments Eosinophils # (test code 0.2 See_Comment [A utomated message] The = Eosinophils #) system whic h generated this result tra nsmitted reference range : <=0.5. The reference r corazon was not used to int erpret this result as normal/abnormal . [facility] RockIfdgjuwFCMPEHJYUA8639-93-58 11:15:00 Test Item Value Reference Range Interpretation Comments Segs (test code = Segs) 72.1 45.0-75.0 [facility] RockFjobkrzBJDRKGSFOE0853-10-38 11:15:00 Test Item Value Reference Range Interpretation Comments Segs-Bands # (test code = Segs-Bands #) 7.7 1.5-8.1 [facility] RockMpxehpeVIYJWWLGJT7875-69-42 11:15:00 Test Item Value Reference Range Interpretation Comments Lymphocytes # (test code = Lymphocytes 2.0 1.0-5.5 #) [facility] RockHdfeegvXITUIULDJD8651-04-96 11:15:00 Test Item Value Reference Range Interpretation Comments Basophils (test code = 0.4 See_Comment [Aut omated message] The Basophils) system which ge nerated this result tra nsmitted reference range : <=1.0. The reference r ocrazon was not used to int erpret this result as normal/abnormal . [facility] RockOjttesrAZDBKYLERJ8387-51-28 11:15:00 Test Item Value Reference Range Interpretation Comments Monocytes (test code = Monocytes) 7.2 2.0-12.0 [facility] RockUcjfprbODOUZYNJLJ3481-60-02 11:15:00 Test Item Value Reference Range Interpretation Comments Eosinophils (test code = 1.7 See_Comment [A utomated message] The Eosinophils) system which ge nerated this result tra nsmitted reference range : <=4.0. The reference r corazon was not used to int erpret this result as normal/abnormal . [facility] RockNufqbsvYHKEKVILDU4287-43-81 11:15:00 Test Item Value Reference Range Interpretation Comments Lymphocytes (test code = Lymphocytes) 18.6 20.0-40.0 [facility]2018-03-27 11:15:00 Test Item Value Reference Range Interpretation Comments UA Color (test code = Colorless *NA*(06/28/17 UA Color) 6:15 AM) [facility] AND [id number] 11:15:00 Test Item Value Reference Range Interpretation Comments UA Spec Grav (test code = UA Spec 1.002 1 Grav) [facility] AND [id number] 11:15:00 Test Item Value Reference Range Interpretation Comments UA Turbidity (test code = Clear (06/28/17 6:15 UA Turbidity) AM) [facility] AND [id number] 11:15:00 Test Item Value Reference Range Interpretation Comments UA pH (test code = UA pH) 6.0 1 5.0-8.[address] [facility] AND [id number] 11:15:00 Test Item Value Reference Range Interpretation Comments UA Glucose (test code = UA Negative mg/dL Glucose) [facility] AND [id number] 11:15:00 Test Item Value Reference Range Interpretation Comments UA Protein (test code = UA Negative mg/dL Protein) [facility] AND [id number] 11:15:00 Test Item Value Reference Range Interpretation Comments UA Blood (test code = Moderate *ABN*(06/28/17 UA Blood) 6:15 AM) [facility] AND [id number] 11:15:00 Test Item Value Reference Range Interpretation Comments UA Bili (test code = Negative *NA*(06/28/17 UA Bili) 6:15 AM) [facility] AND [id number] 11:15:00 Test Item Value Reference Range Interpretation Comments UA Nitrite (test code Negative (06/28/17 6:15 = UA Nitrite) AM) [facility] AND [id number] 11:15:00 Test Item Value Reference Range Interpretation Comments UA Hyal Cast (test 1 See_Comment [Automat ed message] The code = UA Hyal Cast) system which generated this result transmit ann marie reference range : <=2. The reference range was not used to interpr et this result as juan l/abnormal. [facility] AND [id number] 11:15:00 Test Item Value Reference Range Interpretation Comments UA Mucus (test code = UA Mucus) Few /LPF [facility] AND [id number] 11:15:00 Test Item Value Reference Range Interpretation Comments UA Urobilinogen (test code = UA <=1.0 mg/dL 0.1-1.0 Urobilinogen) [facility] AND [id number] 11:15:00 Test Item Value Reference Range Interpretation Comments UA Ketones (test code = UA Ketones) Negative [facility] AND [id number] 11:15:00 Test Item Value Reference Range Interpretation Comments UA Bacteria (test code = UA Occasional /HPF Bacteria) [facility] AND [id number] 11:15:00 Test Item Value Reference Range Interpretation Comments UA Sq Epi (test code = UA Sq Occasional /LPF Epi) [facility] AND [id number] 11:15:00 Test Item Value Reference Range Interpretation Comments UA Leuk Est (test Negative (06/28/17 6:15 code = UA Leuk Est) AM) [facility] AND [id number] 11:15:00 Test Item Value Reference Range Interpretation Comments UA RBC (test code = 2 See_Comment [Automa ann marie message] The UA RBC) system which ge nerated this result transmit ann marie reference range : <=2. The reference range was not used to interpr et this result as juan l/abnormal. [facility] AND [id number] 11:15:00 Test Item Value Reference Range Interpretation Comments UA WBC (test code = 1 See_Comment [Automa ann marie message] The UA WBC) system which ge nerated this result transmit ann marie reference range : <=5. The reference range was not used to interpr et this result as juan l/abnormal. [facility] [id number] 11:15:00 Test Item Value Reference Range Interpretation Comments Lipase Lvl (test code = Lipase Lvl) 172 73-393 [facility] [id number] 11:15:00 Test Item Value Reference Range Interpretation Comments Globulin (test code = Globulin) 3.5 2.7-4.2 [facility] [id number] 11:15:00 Test Item Value Reference Range Interpretation Comments A/G Ratio (test code = A/G Ratio) 1.1 1 0.7-1.6 [facility] [id number] 11:15:00 Test Item Value Reference Range Interpretation Comments B/C Ratio (test code = B/C Ratio) 13 1 6-25 [facility]2018-03-27 11:15:00 Test Item Value Reference Range Interpretation Comments AGAP (test code = AGAP) 13.6 10.0-20.0 [facility]2018-03-27 11:15:00 Test Item Value Reference Range Interpretation Comments Total Protein (test code = Total 7.2 6.4-8.4 Protein) [facility]2018-03-27 11:15:00 Test Item Value Reference Range Interpretation Comments Alk Phos (test code = Alk Phos) 56 39-136 [facility]2018-03-27 11:15:00 Test Item Value Reference Range Interpretation Comments Bili Total (test code = Bili Total) 0.2 0.2-1.3 [place] 192498-03-27 11:15:00 Test Item Value Reference Range Interpretation Comments Potassium Lvl (test code = Potassium 3.6 3.5-5.1 Lvl) [facility]2018-03-27 11:15:00 Test Item Value Reference Range Interpretation Comments Sodium Lvl (test code = Sodium Lvl) 139 135-145 [facility]2018-03-27 11:15:00 Test Item Value Reference Range Interpretation Comments Calcium Lvl (test code = Calcium Lvl) 8.9 8.5-10.5 [facility]2018-03-27 11:15:00 Test Item Value Reference Range Interpretation Comments Chloride Lvl (test code = Chloride Lvl) 105 95-109 [facility]2018-03-27 11:15:00 Test Item Value Reference Range Interpretation Comments eGFR (test code = eGFR) 107 [facility]2018-03-27 11:15:00 Test Item Value Reference Range Interpretation Comments ALT (test code = ALT) 24 See_Comment [Auto mated message] The system which ge nerated this result transmit ann marie reference range : <=65. The reference range was not used to interpr et this result as juan l/abnormal. [facility]2018-03-27 11:15:00 Test Item Value Reference Range Interpretation Comments AST (test code = AST) 20 See_Comment [Auto mated message] The system which ge nerated this result transmit ann marie reference range : <=37. The reference range was not used to interpr et this result as juan l/abnormal. [facility]2018-03-27 11:15:00 Test Item Value Reference Range Interpretation Comments CO2 (test code = CO2) 24 24-32 [facility]2018-03-27 11:15:00 Test Item Value Reference Range Interpretation Comments Albumin Lvl (test code = Albumin Lvl) 3.7 3.5-5.0 [facility]2018-03-27 11:15:00 Test Item Value Reference Range Interpretation Comments Creatinine Lvl (test code = Creatinine 0.63 0.50-1.40 Lvl) [facility]2018-03-27 11:15:00 Test Item Value Reference Range Interpretation Comments BUN (test code = BUN) 8 7-22 [facility]2018-03-27 11:15:00 Test Item Value Reference Range Interpretation Comments Glucose Lvl (test code = Glucose Lvl) 107 70-99 [place] 39045018-03-27 11:15:00 Test Item Value Reference Range Interpretation Comments S Preg (test code = S Negative *NA*(06/28/17 Preg) 6:15 AM) [facility] RockTwxllwxVCCGQEZBFU5415-91-74 11:15:00 Test Item Value Reference Range Interpretation Comments RDW (test code = RDW) 15.4 11.5-14.5 [facility] RockDnvzqbwQWTYUINPEH5851-09-77 11:15:00 Test Item Value Reference Range Interpretation Comments MPV (test code = MPV) 7.7 7.4-10.4 [facility] [id number] 11:15:00 Test Item Value Reference Range Interpretation Comments Platelet (test code = Platelet) 355 133-450 [facility] [id number] 11:15:00 Test Item Value Reference Range Interpretation Comments MCV (test code = MCV) 87.1 80.0-98.0 [facility] [id number] 11:15:00 Test Item Value Reference Range Interpretation Comments Hct (test code = Hct) 37.9 36.0-48.0 [facility] [id number] 11:15:00 Test Item Value Reference Range Interpretation Comments MCHC (test code = MCHC) 33.3 32.0-36.0 [facility] [id number] 11:15:00 Test Item Value Reference Range Interpretation Comments MCH (test code = MCH) 29.0 pg 27.0-31.0 [facility] [id number] 11:15:00 Test Item Value Reference Range Interpretation Comments Hgb (test code = Hgb) 12.6 12.0-16.0 [facility] [id number] 11:15:00 Test Item Value Reference Range Interpretation Comments RBC (test code = RBC) 4.35 4.20-5.40 [facility] [id number] 11:15:00 Test Item Value Reference Range Interpretation Comments WBC (test code = WBC) 10.7 3.7-10.4 [facility] [id number] 11:15:00 Test Item Value Reference Range Interpretation Comments Monocytes # (test code 0.8 See_Comment [Aut omated message] The = Monocytes #) system which generated this result tra nsmitted reference range : <=0.8. The reference r corazon was not used to int erpret this result as normal/abnormal . [facility] [id number] 11:15:00 Test Item Value Reference Range Interpretation Comments Eosinophils # (test code 0.2 See_Comment [A utomated message] The = Eosinophils #) system whic h generated this result tra nsmitted reference range : <=0.5. The reference r corazon was not used to int erpret this result as normal/abnormal . [facility] [id number] 11:15:00 Test Item Value Reference Range Interpretation Comments Segs (test code = Segs) 72.1 45.0-75.0 [facility] [id number] 11:15:00 Test Item Value Reference Range Interpretation Comments Segs-Bands # (test code = Segs-Bands #) 7.7 1.5-8.1 [facility] [id number] 11:15:00 Test Item Value Reference Range Interpretation Comments Lymphocytes # (test code = Lymphocytes 2.0 1.0-5.5 #) [facility] [id number] 11:15:00 Test Item Value Reference Range Interpretation Comments Basophils (test code = 0.4 See_Comment [Aut omated message] The Basophils) system which ge nerated this result tra nsmitted reference range : <=1.0. The reference r corazon was not used to int erpret this result as normal/abnormal . [facility] [id number] 11:15:00 Test Item Value Reference Range Interpretation Comments Monocytes (test code = Monocytes) 7.2 2.0-12.0 [facility] [id number] 11:15:00 Test Item Value Reference Range Interpretation Comments Eosinophils (test code = 1.7 See_Comment [A utomated message] The Eosinophils) system which ge nerated this result tra nsmitted reference range : <=4.0. The reference r corazon was not used to int erpret this result as normal/abnormal . [facility] [id number] 11:15:00 Test Item Value Reference Range Interpretation Comments Lymphocytes (test code = Lymphocytes) 18.6 20.0-40.[address] [facility] AND [id number] 11:15:00 Test Item Value Reference Range Interpretation Comments UA Color (test code = Colorless *NA*(06/28/17 UA Color) 6:15 AM) [facility] AND [id number] 11:15:00 Test Item Value Reference Range Interpretation Comments UA Spec Grav (test code = UA Spec 1.002 1 Grav) [facility] AND [id number] 11:15:00 Test Item Value Reference Range Interpretation Comments UA Turbidity (test code = Clear (06/28/17 6:15 UA Turbidity) AM) [facility] AND [id number] 11:15:00 Test Item Value Reference Range Interpretation Comments UA pH (test code = UA pH) 6.0 1 5.0-8.[address] [facility] AND [id number] 11:15:00 Test Item Value Reference Range Interpretation Comments UA Glucose (test code = UA Negative mg/dL Glucose) [facility] AND [id number] 11:15:00 Test Item Value Reference Range Interpretation Comments UA Protein (test code = UA Negative mg/dL Protein) [facility] AND [id number] 11:15:00 Test Item Value Reference Range Interpretation Comments UA Blood (test code = Moderate *ABN*(06/28/17 UA Blood) 6:15 AM) [facility] AND [id number] 11:15:00 Test Item Value Reference Range Interpretation Comments UA Bili (test code = Negative *NA*(06/28/17 UA Bili) 6:15 AM) [facility] AND [id number] 11:15:00 Test Item Value Reference Range Interpretation Comments UA Nitrite (test code Negative (06/28/17 6:15 = UA Nitrite) AM) [facility] AND [id number] 11:15:00 Test Item Value Reference Range Interpretation Comments UA Hyal Cast (test 1 See_Comment [Automat ed message] The code = UA Hyal Cast) system which generated this result transmit ann marie reference range : <=2. The reference range was not used to interpr et this result as juan l/abnormal. [facility] AND [id number] 11:15:00 Test Item Value Reference Range Interpretation Comments UA Mucus (test code = UA Mucus) Few /LPF [facility] AND [id number] 11:15:00 Test Item Value Reference Range Interpretation Comments UA Urobilinogen (test code = UA <=1.0 mg/dL 0.1-1.0 Urobilinogen) [facility] AND [id number] 11:15:00 Test Item Value Reference Range Interpretation Comments UA Ketones (test code = UA Ketones) Negative [facility] AND [id number] 11:15:00 Test Item Value Reference Range Interpretation Comments UA Bacteria (test code = UA Occasional /HPF Bacteria) [facility] AND [id number] 11:15:00 Test Item Value Reference Range Interpretation Comments UA Sq Epi (test code = UA Sq Occasional /LPF Epi) [facility] AND [id number] 11:15:00 Test Item Value Reference Range Interpretation Comments UA Leuk Est (test Negative (06/28/17 6:15 code = UA Leuk Est) AM) [facility] AND [id number] 11:15:00 Test Item Value Reference Range Interpretation Comments UA RBC (test code = 2 See_Comment [Automa ann marie message] The UA RBC) system which ge nerated this result transmit ann marie reference range : <=2. The reference range was not used to interpr et this result as juan l/abnormal. Azalea [id number] 11:15:00 Test Item Value Reference Range Interpretation Comments UA WBC (test code = 1 See_Comment [Automa ann marie message] The UA WBC) system which ge nerated this result transmit ann marie reference range : <=5. The reference range was not used to interpr et this result as juan l/abnormal. Azalea Jo
[2022-02-11] MEDS ORDERED: FAMOTIDINE 20 MG/2 ML VIAL IV ONE (22:45)
--- NOTE | 2022-02-12 00:09 | EDPHYS ---
Physician Documentation [facility] Name: Dayami Espinosa Age: 52 yrs Sex: Female : 1970 Arrival Date: 02/11/2022 Time: 22:28 Bed 16 Private MD: ED Physician Darrell Mc HPI: 02/11 22:40 This 52 yrs old Female presents to ER via EMS with complaints of Abdominal Problem. pm1 22:40 The patient presents with abdominal pain in the epigastric area. Onset: The pm1 symptoms/episode began/occurred Chronically. The symptoms do not radiate. Associated signs and symptoms: none. Pertinent negatives: nausea, vomiting, and diarrhea, chest pain, shortness of breath. The symptoms are described as achy. Modifying factors: The symptoms are alleviated by Burping and carbonated soda. Severity of pain: in the emergency department the pain has improved. The patient has experienced similar episodes in the past, chronically. The patient has not recently seen a physician. Historical: - Allergies: 22:31 Amoxicillin; aa9 22:31 Pseudoephedrine; aa9 - Home Meds: 22:31 Depakote 250 mg Oral chew 1 tab 2 times per day for Bipolar Disorder in Remission aa9 [Active]; - PMHx: 22:31 Anemia; Bipolar disorder; gastritis; Ovarian cyst; aa9 - PSHx: 22:31 brain surgery; aa9 - Immunization history:: Client reports having NOT received the Covid vaccine. - Social history:: Smoking status: Patient reports the use of cigarette tobacco products, smokes one pack cigarettes per day. ROS: 22:40 Constitutional: Negative for fever, chills, and weight loss, Cardiovascular: Negative pm1 for chest pain, palpitations, and edema, Respiratory: Negative for shortness of breath, cough, wheezing, and pleuritic chest pain. 22:40 Back: Negative for injury and pain, MS/Extremity: Negative for injury and deformity, Skin: Negative for injury, rash, and discoloration, Neuro: Negative for headache, weakness, numbness, tingling, and seizure. 22:40 Abdomen/GI: Positive for abdominal pain, of the epigastric area, Negative for nausea, vomiting, and diarrhea. 22:40 All other systems are negative. Exam: 22:40 Constitutional: This is a well developed, well nourished patient who is awake, alert, pm1 and in no acute distress. Head/Face: Normocephalic, atraumatic. 22:40 Back: No spinal tenderness. No costovertebral tenderness. Full range of motion. Skin: Warm, dry with normal turgor. Normal color with no rashes, no lesions, and no evidence of cellulitis. MS/ Extremity: Pulses equal, no cyanosis. Neurovascular intact. Full, normal range of motion. 22:40 Cardiovascular: Exam negative for acute changes, Rate: normal, Rhythm: regular, Pulses: no pulse deficits are appreciated. 22:40 Respiratory: Exam negative for acute changes, respiratory distress, shortness of breath, Breath sounds: are clear throughout. 22:40 Abdomen/GI: Inspection: abdomen appears normal, Palpation: abdomen is soft and non-tender, in all quadrants. 22:40 Neuro: Exam negative for acute changes, Orientation: is normal, Mentation: is normal, Motor: is normal, moves all fours. Vital Signs: 22:31 Weight 51.71 kg (R); Height 5 ft. 3 in. (160.02 cm) (R); aa9 23:02 Pulse 77; Pulse Ox 99% on R/A; aa9 22:31 Body Mass Index 20.19 (51.71 kg, 160.02 cm) aa9 MDM: 22:29 Patient medically screened. pm1 23:15 Refusal of service: The patient/guardian displays adequate decision making capability pm1 and despite a detailed discussion of alternatives, benefits, risks, and consequences refuses: all lab tests. 02/12 00:07 Data reviewed: vital signs. Data interpreted: Pulse oximetry: on room air is 99 %. pm1 Interpretation: normal. Counseling: I had a detailed discussion with the patient and/or guardian regarding: Counseling: I had a detailed discussion with the patient and/or guardian regarding: the historical points, exam findings, and any diagnostic results supporting the discharge/admit diagnosis, the need for outpatient follow up, to return to the emergency department if symptoms worsen or persist or if there are any questions or concerns that arise at home. 00:07 ED course: Patient resting in bed. Patient refused IV saline lock placement and labs. pm1 Patient reports her pain is now resolved, will discharge patient home with medications for reflux disease. Administered Medications: 02/11 23:04 Not Given (Patient Refused): Pepcid (famotidine) 20 mg IVP once; dilute with 10 mL 0.9% aa9 NaCl; give over 2 minutes Disposition Summary: 02/12/22 00:08 Discharge Ordered Location: Home pm1 Problem: new pm1 Symptoms: have improved pm1 Condition: Stable pm1 Diagnosis - Abdominal pain, unspecified pm1 Followup: pm1 - With: Emergency Department - When: As needed - Reason: Worsening of condition Followup: pm1 - With: Private Physician - When: 2 - 3 days - Reason: Recheck today's complaints, Continuance of care, Re-evaluation by your physician Discharge Instructions: - Discharge Summary Sheet pm1 - Abdominal Pain, Adult pm1 Forms: - Medication Reconciliation Form pm1 - Thank You Letter pm1 - Antibiotic Education pm1 - Prescription Opioid Use pm1 Prescriptions: - Pepcid 20 mg Oral Tablet - take 1 tablet by ORAL route every 12 hours for 10 days; 20 tablet; Refills: 0, pm1 Product Selection Permitted Addendum: 02/18/2022 09:55 Co-signature as Attending Physician, Darrell Mc MD I agree with the assessment and c asencio plan of care. Signatures: Dispatcher [employer] EDDarrell Simon MD MD cha Marinas, Patrick, JIGSAW OPERATOR JIGSAW OPERATOR pm1 Radha Cordoba, RN RN aa9 Corrections: (The following items were deleted from the chart) 02/11 22:58 22:39 IV Saline Lock ordered. pm1 aa9 22:58 22:39 Labs collected and sent ordered. pm1 aa9 02/12 00:07 00:07 Counseling: I had a detailed discussion with the patient and/or guardian pm1 regarding: pm1
--- NOTE | 2022-02-12 00:09 | ER ---
Nurse's Notes [facility] Name: Dayami Espinosa Age: 52 yrs Sex: Female : 1970 Arrival Date: 02/11/2022 Time: 22:28 Bed 16 Private MD: Diagnosis: Abdominal pain, unspecified Presentation: 02/11 22:30 Chief complaint: EMS states: called out for abd pain. Coronavirus screen: Vaccine aa9 status: Patient reports being unvaccinated. Ebola Screen: No symptoms or risks identified at this time. Initial Sepsis Screen: Does the patient meet any 2 criteria? No. Patient's initial sepsis screen is negative. Does the patient have a suspected source of infection? No. Patient's initial sepsis screen is negative. Risk Assessment: Do you want to hurt yourself or someone else? Patient reports no desire to harm self or others. Onset of symptoms was February 11, 2022. 22:30 Method Of Arrival: EMS: [facility] aa9 22:30 Acuity: JAZMIN 3 aa9 Triage Assessment: 22:32 General: Appears slender, unkempt, Behavior is cooperative, appropriate for age, aa9 restless. Pain: Complains of pain in abdomen. Neuro: Level of Consciousness is awake, alert, obeys commands, Oriented to person, place, time, situation. Cardiovascular: Patient's skin is warm and dry. Respiratory: Airway is patent Respiratory effort is even, unlabored. GI: Reports lower abdominal pain, upper abdominal pain. : No signs and/or symptoms were reported regarding the genitourinary system. Derm: Skin is intact, is healthy with good turgor. Musculoskeletal: No signs and/or symptoms reported regarding the musculoskeletal system. Historical: - Allergies: 22:31 Amoxicillin; aa9 22:31 Pseudoephedrine; aa9 - Home Meds: 22:31 Depakote 250 mg Oral chew 1 tab 2 times per day for Bipolar Disorder in Remission aa9 [Active]; - PMHx: 22:31 Anemia; Bipolar disorder; gastritis; Ovarian cyst; aa9 - PSHx: 22:31 brain surgery; aa9 - Immunization history:: Client reports having NOT received the Covid vaccine. - Social history:: Smoking status: Patient reports the use of cigarette tobacco products, smokes one pack cigarettes per day. Screenin:33 Abuse screen: Denies threats or abuse. Denies injuries from another. Nutritional aa9 screening: No deficits noted. Tuberculosis screening: No symptoms or risk factors identified. Fall Risk None identified. Assessment: 22:45 General: Appears uncomfortable, slender, Behavior is anxious, restless. Pain: Complains aa9 of pain in abdomen. Neuro: Level of Consciousness is awake, alert, Oriented to person, place, time, situation. Cardiovascular: Patient's skin is warm and dry. Respiratory: Airway is patent Respiratory effort is even, unlabored. Derm: Skin is intact, is healthy with good turgor. 22:58 Reassessment: upon IV insertion attempt pt exclaimed,"Son of a bitch! Yank it out ! it aa9 hurts like a mother!". 23:00 Reassessment: pt refused VS check. aa9 Vital Signs: 22:31 Weight 51.71 kg (R); Height 5 ft. 3 in. (160.02 cm) (R); aa9 23:02 Pulse 77; Pulse Ox 99% on R/A; aa9 22:31 Body Mass Index 20.19 (51.71 kg, 160.02 cm) aa9 ED Course: 22:28 Patient arrived in ED. tw5 22:29 Ming Fontenot NP is PHCP. pm1 22:29 Darrell Mc MD is Attending Physician. pm1 22:30 Radha Cordoba, BENI is Primary Nurse. aa9 22:31 Triage completed. aa9 22:33 Arm band placed on. aa9 22:33 Patient has correct armband on for positive identification. Bed in low position. Call aa9 light in reach. Side rails up X2. 23:07 Door closed. Lights dimmed. Warm blanket given. PO fluids given. aa9 02/12 00:02 No provider procedures requiring assistance completed. Patient did not have IV access aa9 during this emergency room visit. Administered Medications: 02/11 23:04 Not Given (Patient Refused): Pepcid (famotidine) 20 mg IVP once; dilute with 10 mL 0.9% aa9 NaCl; give over 2 minutes Medication: 02/12 00:03 VIS not applicable for this client. aa9 Outcome: 00:08 Discharge ordered by . pm1 00:39 Discharged to home via wheelchair. aa9 00:39 Condition: stable 00:39 Discharge instructions given to patient, Instructed on discharge instructions, follow up and referral plans. medication usage, Demonstrated understanding of instructions, follow-up care, medications, Prescriptions given X 1. 00:40 Patient left the ED. aa9 Signatures: Ming Fontenot NP [employer] pm1 Lauren Leonardo tw5 Radha Cordoba RN RN aa9 Corrections: (The following items were deleted from the chart) 02/11 23: 23:01 General: Appears uncomfortable, slender, Behavior is anxious, restless, aa9 aa9 23:01 Pain: Complains of pain in abdomen aa9 aa9 23:01 Neuro: Level of Consciousness is awake, alert, Oriented to person, place, time, aa9 situation, aa9 : 23:01 Cardiovascular: Patient's skin is warm and dry. aa9 aa9 23: Respiratory: Airway is patent Respiratory effort is even, unlabored, aa9 aa9 23: Derm: Skin is intact, is healthy with good turgor, aa9 aa9
[2022-02-12 01:23] VITALS: O2SAT 99
== END 2022-02-12 00:40 | disposition home or self-care (01) ==
LOC: ER 22:27
DX: R10.13 Epigastric pain (principal); F31.9 Bipolar disorder, unspecified; F17.219 Nicotine dependence, cigarettes, with unspecified nicotine-induced disorders; Z88.1 Allergy status to other antibiotic agents; Z88.8 Allergy status to other drugs, medicaments and biological substances
CPT/HCPCS: 99283

== ENCOUNTER 2022-03-31 23:29 | Emergency (ER) | payer SELFPAY ==
--- OUTSIDE RECORDS SUMMARY | 2022-03-31 23:38 | XMS REPORT | Continuity of Care Document ---
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 [facility] BMI 2020-09-28 03:54:00 18.78 kg/m2 [facility] Oxygen saturation in 2020-09-28 03:54:00 100 /min [facility] blood by [place] [facility] Systolic blood 2020-09-28 03:54:00 145 mm[Hg] [facility] Diastolic blood 2020-09-28 03:54:00 70 mm[Hg] [facility] Heart rate 2020-09-28 03:54:00 87 /min [facility] Body temperature 2020-09-28 03:54:00 36.44 Nakia [facility] Respiratory rate 2020-09-28 03:54:00 16 /min [facility] Body height 2020-09-28 03:54:00 160 cm [facility] Body weight 2020-09-28 03:54:00 48.081 kg [facility] BMI 2020-09-28 03:54:00 18.78 kg/m2 [facility] Oxygen saturation in 2020-09-28 03:54:00 100 /min [facility] Arterial blood by [employer] richard [facility] Systolic blood 2020-09-24 05:34:00 121 mm[Hg] [facility] Diastolic blood 2020-09-24 05:34:00 73 mm[Hg] [facility] Heart rate 2020-09-24 05:34:00 75 /min [facility] Body temperature 2020-09-24 05:34:00 36.94 Nakia [facility] Respiratory rate 2020-09-24 05:34:00 18 /min [facility] Body height 2020-09-24 05:34:00 160 cm [facility] Body weight 2020-09-24 05:34:00 48.081 kg [facility] BMI 2020-09-24 05:34:00 18.78 kg/m2 [facility] Oxygen saturation in 2020-09-24 05:34:00 100 /min [facility] [place] [facility] Systolic blood 2020-09-24 05:34:00 121 mm[Hg] [facility] Diastolic blood 2020-09-24 05:34:00 73 mm[Hg] [facility] Heart rate 2020-09-24 05:34:00 75 /min [facility] Body temperature 2020-09-24 05:34:00 36.94 Nakia [facility] Respiratory rate 2020-09-24 05:34:00 18 /min [facility] Body height 2020-09-24 05:34:00 160 [...] 2018-11-26 08:35:00 48.081 kg [facility] BMI 2018-11-26 08:35:00 18.78 kg/m2 [facility] Oxygen saturation in 2018-11-26 08:35:00 99 /min [facility] [place] [facility] Systolic blood 2018-11-26 08:35:00 136 mm[Hg] [facility] Diastolic blood 2018-11-26 08:35:00 61 mm[Hg] [facility] Heart rate 2018-11-26 08:35:00 84 /min [facility] Body temperature 2018-11-26 08:35:00 36.94 Nakia [facility] Respiratory rate 2018-11-26 08:35:00 18 /min [facility] Body weight 2018-11-26 08:35:00 48.081 kg [facility] BMI 2018-11-26 08:35:00 18.78 kg/m2 [facility] Oxygen saturation in 2018-11-26 08:35:00 99 /min [facility] Arterial blood by [facility] richard Pulse oxim[facility] Branch Systolic blood [...] 2018-11-04 06:38:00 20 /min [facility] Body height 2018-11-04 06:38:00 160 cm [facility] Body weight 2018-11-04 06:38:00 47.628 kg [facility] BMI 2018-11-04 06:38:00 18.60 kg/m2 Universi [facility] Oxygen saturation in 2018-11-04 06:38:00 100 /min [facility] of Arterial blood by [facility] Pulse oximetry Branch Systolic blood 2018-11-04 06:38:00 119 mm[Hg] Univer sity of pressure [facility] Diastolic blood 2018-11-04 06:38:00 73 mm[Hg] Unive rsity of pressure [facility] Heart rate 2018-11-04 06:38:00 89 /min Universi [facility] Body temperature 2018-11-04 06:38:[address] [facility] Res[facility] rate 2018-11-04 06:38:00 20 /min [facility] Body height 2018-11-04 06:38:00 160 cm [facility] Body weight 2018-11-04 06:38:00 47.628 kg [facility] BMI 2018-11-04 06:38:00 18.60 kg/m2 [facility] Oxygen saturation in 2018-11-04 06:38:00 100 /min [facility] Arterial blood by [facility] Pulse [facility]xim[facility] Branch Temperature Oral (F) 2018-04-14 19:01:00 98.2 F [facility] Systolic (mm Hg) 2018-04-14 16:00:00 [facility] Diastolic (mm Hg) 2018-04-14 16:00:00 [facility] [place] Respitory Rate 2018-04-14 16:00:00 Memori [facility] [place] Systolic (mm Hg) 2018-04-14 15:00:00 Wagner [facility] [place] Diastolic (mm Hg) 2018-04-14 15:00:00 Mem [facility] [place] Respitory Rate 2018-04-14 15:00:00 Memori [facility] [place] Systolic (mm Hg) 2018-04-14 14:00:00 Wagner [facility] [place] Diastolic (mm Hg) 2018-04-14 14:00:00 Mem [facility] [place] Respitory Rate 2018-04-14 14:00:00 [facility] [place] Temperature Oral (F) 2018-04-14 13:35:00 97.2 F [facility] Temperature Oral (F) 2018-04-14 10:00:00 97.6 F [facility] Heart Rate 2018-04-14 03:11:00 [facility] Heart Rate 2018-04-14 01:02:00 [facility] Weight 2018-04-13 19:53:00 [facility] Height 2018-04-13 19:53:00 160.02 cm [facility] BMI Calculated 2018-04-13 19:53:00 [facility] [place] Heart Rate 2018-04-13 19:53:00 [facility] Systolic (mm Hg) 2018-01-31 19:28:00 Wagner [facility] [place] Diastolic (mm Hg) 2018-01-31 19:28:00 Mem [facility] [place] Heart Rate 2018-01-31 19:28:00 [facility] Respitory Rate 2018-01-31 19:28:00 [facility] [place] Weight 2018-01-31 19:28:00 [facility] Temperature Oral (F) 2018-01-31 19:28:00 97.9 F [facility] Systolic (mm Hg) 2018-01-31 16:00:00 Wagner [facility] [place] Diastolic (mm Hg) 2018-01-31 16:00:00 Mem [facility] [place] Respitory Rate 2018-01-31 16:00:00 Memori [facility] [place] Respitory Rate 2018-01-31 15:07:00 Memori [facility] [place] Systolic (mm Hg) 2018-01-31 15:07:00 Wagner [facility] [place] Diastolic (mm Hg) 2018-01-31 15:07:00 Mem [facility] [place] Respitory Rate 2018-01-31 14:02:00 Memori [facility] [place] Systolic (mm Hg) 2018-01-31 14:02:00 Wagner [facility] [place] Diastolic (mm Hg) 2018-01-31 14:02:00 [facility] [place] Temperature Oral (F) 2018-01-31 10:46:00 98.6 F [facility] Heart Rate 2018-01-31 10:46:00 [facility] Systolic (mm Hg) 2017-06-28 14:36:00 Wagner [facility] [place] Diastolic (mm Hg) 2017-06-28 14:36:00 Mem [facility] [place] Temperature Oral (F) 2017-06-28 14:36:00 98.1 F [facility] Respitory Rate 2017-06-28 14:36:00 Shirley Sharpe Heart Rate 2017-06-28 14:36:00 [facility] Respitory Rate 2017-06-28 09:31:00 Shirley Sharpe Temperature Oral (F) 2017-06-28 09:31:00 97.9 F [facility] Weight 2017-06-28 09:31:00 [facility] Heart Rate 2017-06-28 09:31:00 Azalea [place] Systolic (mm Hg) 2017-06-28 09:31:00 Wagner ale[facility] [place] Diastolic (mm Hg) 2017-06-28 09:31:00 Mem [facility]rial [place] Procedures Procedure Date / Time Performing Clinician Source Performed EMERGENCY SERVICES 2022-01-27 05:01:[address] AGREEMENTS AND [facility] AUTHORIZATIONS CONSENT/REFUSAL FOR 2022-01-27 04:26:13 Doctor Mead [facility] DIAGNOSIS AND TREATMENT [facility] [place] URINALYSIS 2022-01-20 05:18:00 Ministerio Krause [facility] URINE DRUG (IMMUNOASSAY) 2022-01-20 05:18:00 Ministerio Krause [facility] DRUG [facility] SCREEN W/O REFLEX CONSENT/REFUSAL FOR 2022-01-20 05:05:26 Doctor Mead [facility] DIAGNOSIS AND TREATMENT [facility] [place] URINALYSIS 2022-01-18 05:36:00 Tahir [facility] CONSENT/REFUSAL FOR 2021-02-20 05:09:04 Doctor Mead [facility] DIAGNOSIS AND TREATMENT [facility] [place] NOTICE OF PRIVACY 2020-12-17 05:49:43 Doctor Mead [facility] CONSENT/REFUSAL FOR 2020-12-17 05:49:22 Doctor Mead [facility] DIAGNOSIS AND TREATMENT [facility] CONSENT/REFUSAL FOR 2020-11-07 08:31:45 Doctor Mead [facility] DIAGNOSIS AND TREATMENT [facility] NOTICE OF PRIVACY 2020-09-28 05:36:52 Doctor Mead [facility] CONSENT/REFUSAL FOR 2020-09-28 05:31:[address] [facility] DIAGNOSIS AND TREATMENT [facility] XR ANKLE 3+ VW RIGHT 2020-09-24 05:48:[address] [facility] FOOT 3+ VW RIGHT 2018-11-26 08:52:27 Umu Barillas [facility] NOTICE OF PRIVACY 2018-11-26 08:32:51 Doctor Unasslucie, [facility] PRACTICES [facility] CONSENT/REFUSAL FOR 2018-11-26 08:31:[address] [facility] 2018-11-04 07:40:11 David Gil o f [facility] POCT GLUCOSE (AUTOMATED) 2018-11-04 07:33:00 David Gil [facility] CONSENT/REFUSAL FOR 2018-11-04 06:31:07 Doctor [place] [facility]IS [facility] Plan of Care Planned Activity Planned Date Details Comments Source Future Scheduled 2022-03-[address] [facility] Test 22:08:57 malignant neoplasm of cervix (procedure) [code = 184519349] Future Scheduled 2022-03-[address] [facility] Test 22:08:57 SCREENING [code = BREAST CANCER SCREENING] Future Scheduled 2022-03-27 COLONOSCOPY SCREENING [facility] Test 22:08:57 [code = COLONOSCOPY SCREENING] Future Scheduled 2022-03-27 SHINGLES VACCINES (1 [facility] Test 22:08:57 of 2) [code = SHINGLES VACCINES (1 of 2)] Future Scheduled 2022-03-27 INFLUENZA VACCINE [facility] Test 22:08:57 [code = INFLUENZA VACCINE] Future Scheduled 2022-03-27 COVID-19 VACCINE (#1) [facility] Test 22:08:57 [code = COVID-19 VACCINE (#1)] Future Scheduled 2022-02-11 HEPATITIS B VACCINES [facility] Test 22:30:00 (1 of 3 - 3-dose series) [code = HEPATITIS B VACCINES (1 of 3 - 3-dose series)] Future Scheduled 2022-02-11 COVID-19 VACCINE (#1) [facility] Test 22:30:00 [code = COVID-19 VACCINE (#1)] Future Scheduled 2022-02-[address] [facility] Test 22:30:00 malignant neoplasm of cervix (procedure) [code = 232083021] Future Scheduled 2022-02-[address] [facility] Test 22:30:00 SCREENING [code = BREAST CANCER SCREENING] Future Scheduled 2022-02-11 COLONOSCOPY SCREENING [facility] Test 22:30:00 [code = COLONOSCOPY SCREENING] Future Scheduled 2022-02-11 SHINGLES VACCINES (1 [facility] Test 22:30:00 of 2) [code = SHINGLES VACCINES (1 of 2)] Future Scheduled 2022-02-11 INFLUENZA VACCINE Method [facility] Test 22:30:00 [code = INFLUENZA VACCINE] Future Scheduled 2021-12-03 HEPATITIS B VACCINES [facility] Test 23:04:54 (1 of 3 - 3-dose series) [code = HEPATITIS B VACCINES (1 of 3 - 3-dose series)] Future Scheduled 2021-12-03 COVID-19 VACCINE (#1) [facility] Test 23:04:54 [code = COVID-19 VACCINE (#1)] Future Scheduled 2021-12-[address] [facility] Test 23:04:54 malignant neoplasm of cervix (procedure) [code = 550712830] Future Scheduled 2021-12-[address] [facility] Test 23:04:54 SCREENING [code = BREAST CANCER SCREENING] Future Scheduled 2021-12-03 COLONOSCOPY SCREENING [facility] Test 23:04:54 [code = COLONOSCOPY SCREENING] Future Scheduled 2021-12-03 SHINGLES VACCINES (1 [facility] Test 23:04:54 of 2) [code = SHINGLES VACCINES (1 of 2)] Future Scheduled 2021-12-03 INFLUENZA VACCINE Method [facility] Test 23:04:54 [code = INFLUENZA VACCINE] Future Scheduled 2021-12-03 HEPATITIS B VACCINES [facility] Test 23:04:54 (1 of 3 - 3-dose series) [code = HEPATITIS B VACCINES (1 of 3 - 3-dose series)] Future Scheduled 2021-12-03 COVID-19 VACCINE (#1) [facility] Test 23:04:54 [code = COVID-19 VACCINE (#1)] Future Scheduled 2021-12-03 Screening for [facility] Test 23:04:54 malignant neoplasm of cervix (procedure) [code = 472851831] Future Scheduled 2021-12-03 BREAST CANCER [facility] Test 23:04:54 SCREENING [code = BREAST [...] Test 00:00:00 (procedure) [code = Medical Center 32603098] Future Scheduled [address] [facility] Test 00:[facility]procedure) [code = 620229460] Future Scheduled [address] [facility] Test 00:00:00 0-64 YRS (1 of 1 - Medical C enter PPSV23) [code = PNEUMOCOCCAL VACCINE 0-64 YRS (1 of 1 - PPSV23)] Future Scheduled [address] [facility] Test 00[facility]00:00 [facility] breast (procedure) [code = 002917777] Future Scheduled [address] [facility] Test 00:00:00 [facility] colon (procedure) [code = 205572869] Future Scheduled [facility] [code = COLONOSCOPY SCREENING] Future Scheduled SHINGLES [facility]ACCINES (#[facility]) [facility] [code = SHINGLES VACCINES (#1)] Future Scheduled [facility] [code = INFLUENZA VACCINE] Future Scheduled COVID-19 [facility]ACCINE (1[facility] [code = COVID-19 VACCINE (1)] Future Scheduled Scre[facility] Test malignant neoplasm of cervix (procedure) [code = 769627280] Future Scheduled BREAST CANCER [facility] Test SCREENING [code = BREAST CANCER SCREENING] Encounters Start End Encounter Admission Attending Care Care Encounter Source Date/Time Date/Time Type Type Clinicians Facility Department ID 2022-01-27 2022-01-27 Emergency X Bk FU [facility] ERT [id number] Univers 00:10:00 03:01:00 ity of [facility] 2022-01-27 2022-01-27 Emergency Bk Fu [facility] [id number] Univers 00:10:00 03:01:00 Alva MODI [id number] i ty of [place] [id number] [facility] [id number] [address] 2022-01-27 2022-01-27 Orders Doctor SELVIN [id number] Univers 00:00:00 00:00:00 Only Unassigned, HILTON [id number] ity of [facility] [id number] Everardo as [id number] [address] 2022-01-20 2022-01-20 [facility] [id number] Univers 00:07:00 01:39:00 MINISTERIO ity of [facility] 2022-01-20 2022-01-20 [facility] [id number] Univers 00:07:00 01:39:00 Ministerio MODI [id number] ity of [place] [id number] [facility] [id number] 2022-01-18 2022-01-18 Emergency X Bk FU [facility] ERT [id number] Univers 00:31:00 02:27:00 ity of [facility] 2022-01-18 2022-01-18 Emergency Bk Fu [facility] [id number] Univers 00:31:00 02:27:00 Alva MODI [id number] i ty of [place] [id number] [facility] [id number] [address] 2021-03-03 2021-03-03 Emergency [facility] [id number] Univers 02:39:00 03:00:00 Milagros RIAN [id number] i ty of [facility] [id number] [facility] [id number] [address] 2021-03-03 2021-03-03 Emergency [facility] ERT [id number] Univers 02:39:00 03:00:00 MILAGROS itjamari [facility] 2021-02-19 2021-02-20 Emergency X SHERI, [facility] ERT [id number] Univers 23:23:00 01:46:00 TAHIR strickland [facility] 2021-02-19 2021-02-20 Emergency [facility] [id number] Univers 23:23:00 01:46:00 Tahir Baron RIAN [id number] ity of [place] 4.2.7.2.6 [facility] [id number] [address] 2021-01-12 2021-01-12 Emergency [facility] [id number] Univers 03:24:00 03:55:00 Umu Modi [id number] ity of [place] [id number] [facility] [id number] [address] 2021-01-12 2021-01-12 Emergency [facility] ERT [id number] Univers 03:24:00 03:24:00 UMU itjamari [facility] 2021-01-11 2021-01-11 Emergency [facility] 1.2.840.114 [id number] Univers 19:24:00 20:00:00 Umu Modi [id number] ity of [place] [id number] [facility] [id number] [address] 2021-01-11 2021-01-11 Emergency [facility] ERT [id number] Univers 19:24:00 19:24:00 UMU ity of [facility] 2020-12-17 2020-12-17 Emergency [place], [facility] [id number] Univers 01:00:00 01:40:00 Milagros Plascenciaton [id number] i ty of [place] [id number] [facility] [id number] [address] 2020-12-17 2020-12-17 Emergency X [facility] ERT [id number] Univers 00:47:00 00:47:00 ity of [facility] 2020-11-07 2020-11-07 Emergency [facility], [facility] [id number] 03:52:00 06:43:00 Tahir Plascenciaton [id number] [place] [id number] [place] [id number] [facility] 2020-11-07 2020-11-07 Emergency [facility] [id number] Univers 03:52:00 06:43:00 Tahir Plascenciaton [id number] ity of [place] [id number] [facility] [id number] 2020-11-07 2020-11-07 Emergency X [facility] ERT [id number] Univers 03:31:00 03:31:00 ity [facility] 2020-09-27 2020-09-28 Emergency [facility] [id number] 23:09:00 03:14:00 Tahir Plascenciaton [id number] [place] [id number] [place] [id number] [facility] 2020-09-27 2020-09-28 Emergency [facility], [facility] [id number] Univers 23:09:00 03:14:00 Tahir Plascenciaton [id number] ity of [place] [id number] [facility] [id number] 2020-09-27 2020-09-27 Emergency X [place], [facility] ERT [id number] Univers 23:09:00 23:09:00 TAHIR aggarwaljamari [facility] 2020-09-24 2020-09-24 Emergency [facility] 1.2.840.114 [id number] 00:36:00 01:37:00 Umu Modi [id number] [place] [id number] [place] [id number] [facility] 2020-09-24 2020-09-24 Emergency [facility] 1.2.840.114 [id number] [facility] 00:36:00 01:37:00 Umu Modi [id number] ity of [place] [id number] [facility] s [place] [id number] [address] 2020-09-24 2020-09-24 Emergency [facility] ERT [id number] Univers 00:36:00 00:36:00 UMU strickland [facility] 2018-11-27 2018-11-27 Patient Edilia Gonzalez 1.2.840.114 [id number] 00:00:00 00:00:00 Outreach E [place] [id number] [place] [id number] [facility] 2018-11-27 2018-11-27 Patient Edilia Gonzalez 1.2.840.114 [id number] [facility] 00:00:00 00:00:00 Outreach E [place] [id number] i ty of [place] [id number] [facility] [id number] [facility] [address] [place] 2018-11-26 2018-11-26 Emergency [facility] 1.2.840.114 [id number] 03:43:44 04:30:00 Umu Modi [id number] [place] [id number] [place] [id number] [facility] 2018-11-26 2018-11-26 Emergency [facility] 1.2.840.114 [id number] [facility] [facility] 03:43:44 04:30:00 Umu Modi [id number] ity of [place] 4.2.7.2.686 [facility] [phone] [address] 2018-11-04 2018-11-04 Emergency Gil, [facility] [id number] 02:27:58 03:11:00 David Modi [id number] [place] 4.2.7.2.686 [place] [phone] [facility] 2018-11-04 2018-11-04 Emergency Gil, [facility] [id number] [facility] 02:27:58 03:11:00 David Modi [id number] i ty of [place] 4.2.7.2.686 [facility] [id number] [address] 2018-11-04 2018-11-04 Orders Doctor SELVIN [id number] 00:00:00 00:00:00 Only Unassigned, [place] 350.1.13.10 [place] [facility] 4.2.7.2.686 [id number] [facility] 2018-11-04 2018-11-04 Orders Doctor SELVIN [id number] [facility] 00:00:00 00:00:00 Only Unassigned, [place] 350.1.13.10 ity of [place] [facility] 4.2.7.2.686 [facility] [id number] [address] 2018-04-17 2018-04-19 Phone nullFlavo MNA [id number] Memoria 19:55:00 05:59:59 Message r Neurosurger 00 l y [facility] 2018-04-17 2018-04-19 Phone nullFlavo MNA [id number] [place] 19:55:00 05:59:59 Message r Neurosurger 00 l y [facility] 2018-04-17 2018-04-18 Outpatient MHMISCHER MISCHER [id number] 13:55:00 23:59:59 00 2018-04-13 2018-04-14 Inpatient nullFlavo [facility] [id number] Mem[place] 19:48:00 19:15:[address] 2018-04-13 2018-04-14 Inpatient nullFlavo [facility] [id number] Memoria 19:48:00 19:15:00 r [place] 10 l [facility] 2018-04-13 2018-04-14 Outpatient René [facility] [id number] 13:48:00 13:15:00 Ritvij 10 2018-01-31 2018-01-31 Emergency nullFlavo [facility] [id number] Memoria 19:12:00 23:03:00 r [place] [facility] 2018-01-31 2018-01-31 Emergency nullFlavo [facility] [id number] Memoria 19:12:00 23:03:00 r [place] [facility] 2018-01-31 2018-01-31 Outpatient Diego [facility] [id number] 14:12:00 18:03:00 Hardik Montemayor 2018-01-31 2018-01-31 Emergency nullFlavo [facility] [id number] Memoria 10:46:00 18:01:00 r [place] 03 [facility] 2018-01-31 2018-01-31 Emergency nullFlavo [facility] [id number] Mem[place] 10:46:00 18:01:00 r [place] 03 [facility] 2018-01-31 2018-01-31 Outpatient Patricia [facility] [id number] 05:46:00 13:01:00 Kel Cadena 2017-07-02 2017-07-02 Emergency E [facility] [id number] 08:16:00 08:16:00 [facility] 2017-06-28 2017-06-28 Emergency nullFlavo [facility] [id number] Memoria 09:28:00 14:45:00 r [place] 00 l [facility] 2017-06-28 2017-06-28 Emergency nullFlavo [facility] [id number] Memoria 09:28:00 14:45:00 r [place] 00 [facility] 2017-06-28 2017-06-28 Outpatient Glenny [facility] [id number] 04:28:00 09:45:00 Semaj Stanton 00 Results Test Description Test Test Results Result Source Time Comments Comments XR FOOT 3+ VW 2018-11- No acute osseous Univ ersity of RIGHT 25 injury identified. [facility] 09:14:11 Severe osteoarthritis Bra [...] Comme nts POCT GLU (test code = 4679249101) 111 mg/dL 70-110 H Lab Interpretation (test code = 82026-1) [id number] 08:06:00 Test Item Value Reference Range Interpretation Comments SCAN RESULT (test code = 4656357) CELIAC DISEASE PROFILE Refer to Celiac AUTOVERIFICATION (QUEST) Disease Panel (test code = 8558794) results. CT, [id number] 19:42:00Only need IV contrast, not POFINAL REPORT [...] MDReport Verified Date/Time: 09/05/2018 19:42:13 Reading Location: [facility] C013W Consult Reading Room RAD, ABDOMEN/KUB, 1 VIEW [id number] 15:30:00Reason for exam:->look for retained video capsuleAddendum BeginsREPORT STATUS:A Addendum:The video capsule is seen projected over the right iliac wing. It could be in the distal ileum versus large bowel. If in exact location is needed. CT scan will be necessary. End of addendum. Signed: Reza Huitron MDReport Verified Date/Time: 09/05/2018 15:30:35 Reading Location: [facility] Radiology Reading RoomAddendum EndsFINAL REPORT TECHNIQUE: Supine radiograph of the abdomen dated 09/05/2018 HISTORY: Evaluate for retained video capsule. COMPARISON: None IMPRESSION:No air-filled, dilated loops of bowel to suggest obstruction. No free intraperitoneal air. No abnormal soft tissue mass. No radiodense foreign body visualized. Bones are unremarkable. Signed: Reza Huitron MDReport Verified Date/Time: 09/05/2018 14:53:33 Reading Location: [facility] Radiology Reading Room GI PATHOGEN PROFILE BY [id number] 10:43:00 Test Item Value Reference Range Interpretation [...] Not detected BY PCR (test code = 6328777) ENTEROPATHOGENIC E. COLI (EPEC) Not detected Not detected BY PCR (test code = 4204334) ENTEROTOXIGENIC E. COLI (ETEC) Not detected Not [...] Not detected Not detected (test code = 0525162) VIBRIO (PARAHAEMOLYTICUS, Not detected Not detected VULNIFICUS) (test code = 3085742) Other viruses, parasites and bacteria not targeted by this PCR panel cannot be excluded; therefore clinical correlation and follow up of serology, culture results, and other molecular studies is required. The results are not intended to be used as the sole means for clinical diagnosis or patient management decisions. This sample was tested at the [facility] using the FunnelFireArray Gastrointestinal Panel. It is FDA cleared and has been verified and approved by the [facility] for clinical use. This laboratory is CLIA-certified and College ofAmerican Pathologists (CAP)-accredited to perform high complexity testing.BASIC METABOLIC [id number] 05:42:00 Test Item Value Reference Range Interpretation [...] 0-0 (BEAKER) (test code = 413) C-REACTIVE [id number] 18:59:00 Test Item Value Reference Range Interpretation Comments C-REACTIVE PROTEIN (BEAKER) (test 0.38 mg/dL 0.00-0.50 code = 676) [id number] 05:48:00 Test Item Value Reference Range Interpretation Comments FERRITIN (BEAKER) (test code = 361) 13 ng/mL 5-275 BASIC METABOLIC [id number] 05:27:00 Test Item Value Reference Range Interpretation [...] 0-0 (BEAKER) (test code = 413) RETICULOCYTE [id number] 05:05:00 Test Item Value Reference Range Interpretation Comments RETICULOCYTE COUNT PCT (BEAKER) (test 1.1 % 0.5-1.7 code = 575) SCREEN, [id number] 15:17:00 Test Item Value Reference Range Interpretation Comments TEST URINE (BEAKER) (test Negative code = 583) BASIC METABOLIC [id number] 04:53:00 Test Item Value Reference Range Interpretation [...] 0-0 (BEAKER) (test code = 413) CHEM [id number] 03:57:00 Test Item Value Reference Range Interpretation Comments Bili Indirect (test 0.3 See_Comment [Automa ann marie message] The code = Bili Indirect) system which generated this result tra nsmitted reference range : <=1.0. The reference r corazon was not used to int erpret this result as normal/abnormal . [place] [id number] 03:57:00 Test Item Value Reference Range Interpretation Comments A/G Ratio (test code = A/G Ratio) 1.0 1 0.7-1.6 [place] [id number] 03:57:00 Test Item Value Reference Range Interpretation Comments Bili Direct (test code 0.1 See_Comment [Aut omated message] The = Bili Direct) system which generated this result tra nsmitted reference range : <=0.3. The reference r corazon was not used to int erpret this result as juan l/abnormal. [facility]2019-01-11 03:57:00 Test Item Value Reference Range Interpretation Comments Bili Total (test code = Bili Total) 0.4 0.2-1.3 [place] 113689-01-11 03:57:00 Test Item Value Reference Range Interpretation Comments Alk Phos (test code = Alk Phos) 49 39-136 [facility]2019-01-11 03:57:00 Test Item Value Reference Range Interpretation Comments AST (test code = AST) 24 See_Comment [Auto mated message] The system which ge nerated this result transmit ann marie reference range : <=37. The reference range was not used to interpr et this result as juan l/abnormal. [facility]2019-01-11 03:57:00 Test Item Value Reference Range Interpretation Comments Total Protein (test code = Total 6.0 6.4-8.4 Protein) [facility]2019-01-11 03:57:00 Test Item Value Reference Range Interpretation Comments ALT (test code = ALT) 19 See_Comment [Auto mated message] The system which ge nerated this result transmit ann marie reference range : <=65. The reference range was not used to interpr et this result as juan l/abnormal. [facility]2019-01-11 03:57:00 Test Item Value Reference Range Interpretation Comments Albumin Lvl (test code = Albumin Lvl) 3.0 3.5-5.0 [facility]2019-01-11 03:57:00 Test Item Value Reference Range Interpretation Comments Globulin (test code = Globulin) 3.0 2.7-4.2 [facility]2019-01-11 03:57:00 Test Item Value Reference Range Interpretation Comments Bili Indirect (test 0.3 See_Comment [Automa ann marie message] The code = Bili Indirect) system which generated this result tra nsmitted reference range : <=1.0. The reference r corazon was not used to int erpret this result as normal/abnormal . [facility]2019-01-11 03:57:00 Test Item Value Reference Range Interpretation Comments A/G Ratio (test code = A/G Ratio) 1.0 1 0.7-1.6 [place] 113689-01-11 03:57:00 Test Item Value Reference Range Interpretation Comments Bili Direct (test code 0.1 See_Comment [Aut omated message] The = Bili Direct) system which generated this result tra nsmitted reference range : <=0.3. The reference r corazon was not used to int erpret this result as juan l/abnormal. [facility]2019-01-11 03:57:00 Test Item Value Reference Range Interpretation Comments Bili Total (test code = Bili Total) 0.4 0.2-1.3 [facility]2019-01-11 03:57:00 Test Item Value Reference Range Interpretation Comments Alk Phos (test code = Alk Phos) 49 39-136 [facility]2019-01-11 03:57:00 Test Item Value Reference Range Interpretation Comments AST (test code = AST) 24 See_Comment [Auto mated message] The system which ge nerated this result transmit ann marie reference range : <=37. The reference range was not used to interpr et this result as juan l/abnormal. [facility]2019-01-11 03:57:00 Test Item Value Reference Range Interpretation Comments Total Protein (test code = Total 6.0 6.4-8.4 Protein) [facility]2019-01-11 03:57:00 Test Item Value Reference Range Interpretation Comments ALT (test code = ALT) 19 See_Comment [Auto mated message] The system which ge nerated this result transmit ann marie reference range : <=65. The reference range was not used to interpr et this result as juan l/abnormal. [facility]2019-01-11 03:57:00 Test Item Value Reference Range Interpretation Comments Albumin Lvl (test code = Albumin Lvl) 3.0 3.5-5.0 [facility]2019-01-11 03:57:00 Test Item Value Reference Range Interpretation Comments Globulin (test code = Globulin) 3.0 2.7-4.2 [facility]2019-01-11 03:57:00 Test Item Value Reference Range Interpretation Comments Bili Indirect (test 0.3 See_Comment [Automa ann marie message] The code = Bili Indirect) system which generated this result tra nsmitted reference range : <=1.0. The reference r corazon was not used to int erpret this result as normal/abnormal . [facility]2019-01-11 03:57:00 Test Item Value Reference Range Interpretation Comments A/G Ratio (test code = A/G Ratio) 1.0 1 0.7-1.6 [facility]2019-01-11 03:57:00 Test Item Value Reference Range Interpretation Comments Bili Direct (test code 0.1 See_Comment [Aut omated message] The = Bili Direct) system which generated this result tra nsmitted reference range : <=0.3. The reference r corazon was not used to int erpret this result as juan l/abnormal. [facility]2019-01-11 03:57:00 Test Item Value Reference Range Interpretation Comments Bili Total (test code = Bili Total) 0.4 0.2-1.3 [facility]2019-01-11 03:57:00 Test Item Value Reference Range Interpretation Comments Alk Phos (test code = Alk Phos) 49 39-136 [facility]2019-01-11 03:57:00 Test Item Value Reference Range Interpretation Comments AST (test code = AST) 24 See_Comment [Auto mated message] The system which ge nerated this result transmit ann marie reference range : <=37. The reference range was not used to interpr et this result as juan l/abnormal. [facility]2019-01-11 03:57:00 Test Item Value Reference Range Interpretation Comments Total Protein (test code = Total 6.0 6.4-8.4 Protein) [facility]2019-01-11 03:57:00 Test Item Value Reference Range Interpretation Comments ALT (test code = ALT) 19 See_Comment [Auto mated message] The system which ge nerated this result transmit ann marie reference range : <=65. The reference range was not used to interpr et this result as juan l/abnormal. [facility]2019-01-11 03:57:00 Test Item Value Reference Range Interpretation Comments Albumin Lvl (test code = Albumin Lvl) 3.0 3.5-5.0 [facility]2019-01-11 03:57:00 Test Item Value Reference Range Interpretation Comments Globulin (test code = Globulin) 3.0 2.7-4.2 [facility]2019-01-10 21:07:00 Test Item Value Reference Range Interpretation Comments eGFR (test code = eGFR) 109 [facility]2019-01-10 21:07:00 Test Item Value Reference Range Interpretation Comments Chloride Lvl (test code = Chloride Lvl) 112 95-109 [facility]2019-01-10 21:07:00 Test Item Value Reference Range Interpretation Comments CO2 (test code = CO2) 23 24-32 [facility]2019-01-10 21:07:00 Test Item Value Reference Range Interpretation Comments Creatinine Lvl (test code = Creatinine 0.58 0.50-1.40 Lvl) [facility]2019-01-10 21:07:00 Test Item Value Reference Range Interpretation Comments Sodium Lvl (test code = Sodium Lvl) 144 135-145 [facility]2019-01-10 21:07:00 Test Item Value Reference Range Interpretation Comments Potassium Lvl (test code = Potassium 4.4 3.5-5.1 Lvl) [facility]2019-01-10 21:07:00 Test Item Value Reference Range Interpretation Comments Calcium Lvl (test code = Calcium Lvl) 8.6 8.5-10.5 [facility]2019-01-10 21:07:00 Test Item Value Reference Range Interpretation Comments BUN (test code = BUN) 7 7-22 [facility]2019-01-10 21:07:00 Test Item Value Reference Range Interpretation Comments Glucose Lvl (test code = Glucose Lvl) 107 70-99 [facility]2019-01-10 21:07:00 Test Item Value Reference Range Interpretation Comments AGAP (test code = AGAP) 13.4 10.0-20.0 [facility] [id number] 21:07:00 Test Item Value Reference Range Interpretation Comments Estimated % Lysis Rapid 2.1 See_Comment [Au tomated message] The (test code = Estimated syste m which generated % Lysis Rapid) this result t ransmitted reference range : <=7.5. The reference r corazon was not used to int erpret this result as normal/abnormal . [facility] [id number] 21:07:00 Test Item Value Reference Range Interpretation Comments Angle Rapid (test code = Angle 75 degrees 64-80 Rapid) [facility] [place] [facility] Cent[id number] 21:07:00 Test Item Value Reference Range Interpretation Comments G-value Rapid (test code = G-value 8.6 5.0-11.6 Rapid) [facility] [place] [facility] [id number] 21:07:00 Test Item Value Reference Range Interpretation Comments Basophils (test code = 0.7 See_Comment [Aut omated message] The Basophils) system which ge nerated this result tra nsmitted reference range : <=1.0. The reference r corazon was not used to int erpret this result as normal/abnormal . [facility] [place] [facility] [id number] 21:07:00 Test Item Value Reference Range Interpretation Comments Neutrophils # (test code = Neutrophils 3.3 1.5-8.1 #) [facility] [place] [facility] CenterSoyzalsYCBIIMUNTH8040-66-13 21:07:00 Test Item Value Reference Range Interpretation Comments Lymphocytes # (test code = Lymphocytes 1.7 1.0-5.5 #) [facility] [place] [facility] CenterNtpdqpnOVQPUMVELP3986-50-21 21:07:00 Test Item Value Reference Range Interpretation Comments Monocytes # (test code 0.6 See_Comment [Aut omated message] The = Monocytes #) system which generated this result tra nsmitted reference range : <=0.8. The reference r corazon was not used to int erpret this result as normal/abnormal . [facility] [place] [facility] Cen[id number] 21:07:00 Test Item Value Reference Range Interpretation Comments Eosinophils # (test code 0.2 See_Comment [A utomated message] The = Eosinophils #) system whic h generated this result tra nsmitted reference range : <=0.5. The reference r corazon was not used to int erpret this result as normal/abnormal . [facility]2019-01-10 21:07:00 Test Item Value Reference Range Interpretation Comments eGFR (test code = eGFR) 109 [facility]2019-01-10 21:07:00 Test Item Value Reference Range Interpretation Comments Chloride Lvl (test code = Chloride Lvl) 112 95-109 [facility]2019-01-10 21:07:00 Test Item Value Reference Range Interpretation Comments CO2 (test code = CO2) 23 24-32 [facility]2019-01-10 21:07:00 Test Item Value Reference Range Interpretation Comments Creatinine Lvl (test code = Creatinine 0.58 0.50-1.40 Lvl) [facility] [place] [facility] CenterWwxfkqjVADTRRTEQT9466-81-09 21:07:00 Test Item Value Reference Range Interpretation Comments Max Amplitude Rapid (test code = Max 63 mm 52-71 Amplitude Rapid) [facility]2019-01-10 21:07:00 Test Item Value Reference Range Interpretation Comments Sodium Lvl (test code = Sodium Lvl) 144 135-145 [facility]2019-01-10 21:07:00 Test Item Value Reference Range Interpretation Comments Potassium Lvl (test code = Potassium 4.4 3.5-5.1 Lvl) [facility]2019-01-10 21:07:00 Test Item Value Reference Range Interpretation Comments Calcium Lvl (test code = Calcium Lvl) 8.6 8.5-10.5 [facility]2019-01-10 21:07:00 Test Item Value Reference Range Interpretation Comments BUN (test code = BUN) 7 7-22 [facility]2019-01-10 21:07:00 Test Item Value Reference Range Interpretation Comments Glucose Lvl (test code = Glucose Lvl) 107 70-99 [facility]2019-01-10 21:07:00 Test Item Value Reference Range Interpretation Comments AGAP (test code = AGAP) 13.4 10.0-20.0 [facility] [place] [facility] CenterIfcjtesSSLIMVREHA7590-09-31 21:07:00 Test Item Value Reference Range Interpretation Comments Estimated % Lysis Rapid 2.1 See_Comment [Au tomated message] The (test code = Estimated syste m which generated % Lysis Rapid) this result t ransmitted reference range : <=7.5. The reference r corazon was not used to int erpret this result as normal/abnormal . [facility] [place] [facility] Cent[id number] 21:07:00 Test Item Value Reference Range Interpretation Comments Angle Rapid (test code = Angle 75 degrees 64-80 Rapid) [facility] CenterNspumgfLICAGGJUOU2797-30-77 21:07:00 Test Item Value Reference Range Interpretation Comments G-value Rapid (test code = G-value 8.6 5.0-11.6 Rapid) [facility] [place] [facility] CenterFcuymcoZQOFQIJUDG6593-52-48 21:07:00 Test Item Value Reference Range Interpretation Comments Max Amplitude Rapid (test code = Max 63 mm 52-71 Amplitude Rapid) [facility] CenterUbsuddnTIYNOWXISQ0250-58-55 21:07:00 Test Item Value Reference Range Interpretation Comments R-time Rapid (test code = R-time 0.7 min 0.4-0.7 Rapid) [facility] CenterJsxhnvsAREFFXBJCG9752-03-59 21:07:00 Test Item Value Reference Range Interpretation Comments R-time Rapid (test code = R-time 0.7 min 0.4-0.7 Rapid) [facility] CenterLgjwwyyDGEHYMJPJE1835-60-78 21:07:00 Test Item Value Reference Range Interpretation Comments K-time Rapid (test code = K-time 1.2 min 0.6-2.3 Rapid) [facility] [place] [facility] CenterIplrllaMOHIPTSSLN8136-14-26 21:07:00 Test Item Value Reference Range Interpretation Comments ACT (TEG) Rapid (test code = ACT (TEG) 113 s 86-118 Rapid) [facility] CenterOxnuyooJBJWUIIMCC4892-62-36 21:07:00 Test Item Value Reference Range Interpretation Comments Split Point Rapid (test code = Split 0.6 min Point Rapid) [facility] CenterKedgmaiCOKBEMHHQS9005-25-08 21:07:00 Test Item Value Reference Range Interpretation Comments PTT (test code = PTT) 30.6 s 22.9-35.8 [facility] CenterKleimdcXHWZQZKUMC2694-76-18 21:07:00 Test Item Value Reference Range Interpretation Comments INR (test code = INR) 1.03 1 0.85-1.17 [facility] Cent[id number] 21:07:00 Test Item Value Reference Range Interpretation Comments PT (test code = PT) 13.3 s 12.0-14.7 [facility] CenterUzuiwlsIMSHQBPNLD2518-78-40 21:07:00 Test Item Value Reference Range Interpretation Comments Hgb (test code = Hgb) 11.1 12.0-16.0 [facility] CenterOrbkvxmRVXYMGTRCI8569-52-92 21:07:00 Test Item Value Reference Range Interpretation Comments Hct (test code = Hct) 33.7 36.0-48.0 [facility] CenterYbsxrmnVBCGXUFIRW7018-81-61 21:07:00 Test Item Value Reference Range Interpretation Comments RBC (test code = RBC) 4.04 4.20-5.40 [facility] CenterQorooxiHGXQMLZYBW8310-56-24 21:07:00 Test Item Value Reference Range Interpretation Comments K-time Rapid (test code = K-time 1.2 min 0.6-2.3 Rapid) [facility] CenterQyviqzwMWPDGJVPLM8914-65-14 21:07:00 Test Item Value Reference Range Interpretation Comments WBC (test code = WBC) 5.8 3.7-10.4 [facility] CenterEacfgjiGRKTRQRMGX6308-64-77 21:07:00 Test Item Value Reference Range Interpretation Comments RDW (test code = RDW) 17.2 11.5-14.5 [facility] CenterQqxyiftFTVKZPMIPZ5177-88-76 21:07:00 Test Item Value Reference Range Interpretation Comments Platelet (test code = Platelet) 365 133-450 [facility] CenterEcfjvhvPEFJDKDOHM6179-91-05 21:07:00 Test Item Value Reference Range Interpretation Comments MCHC (test code = MCHC) 32.9 32.0-36.0 [facility] CenterTlxfvqhVYJFSKVVFZ3819-45-23 21:07:00 Test Item Value Reference Range Interpretation Comments MCV (test code = MCV) 83.5 80.0-98.0 [facility] CenterLstklvmWHLLJWOVUI6596-74-10 21:07:00 Test Item Value Reference Range Interpretation Comments MCH (test code = MCH) 27.5 pg 27.0-31.0 [facility] CenterXsunyuxRUBBTLOOYD6294-24-11 21:07:00 Test Item Value Reference Range Interpretation Comments MPV (test code = MPV) 8.4 7.4-10.4 [facility] CenterQwngadiVUFGINHHKC4253-29-70 21:07:00 Test Item Value Reference Range Interpretation Comments Segs (test code = Segs) 56.3 45.0-75.0 [facility] CenterWratmcrZMXEFAADSF6437-54-58 21:07:00 Test Item Value Reference Range Interpretation Comments Lymphocytes (test code = Lymphocytes) 29.4 20.0-40.0 [facility] Cent[id number] 21:07:00 Test Item Value Reference Range Interpretation Comments Monocytes (test code = Monocytes) 9.6 2.0-12.0 [facility] CenterVrarkjtSGOYFVZZOU8944-90-52 21:07:00 Test Item Value Reference Range Interpretation Comments ACT (TEG) Rapid (test code = ACT (TEG) 113 s 86-118 Rapid) [facility] CenterUgsuqowAMQQYHFQFF0562-32-96 21:07:00 Test Item Value Reference Range Interpretation Comments Eosinophils (test code = 4.0 See_Comment [A utomated message] The Eosinophils) system which ge nerated this result tra nsmitted reference range : <=4.0. The reference r corazon was not used to int erpret this result as normal/abnormal . [facility] CenterFoibfuzWUWAMJDGSF1861-16-31 21:07:00 Test Item Value Reference Range Interpretation Comments Split Point Rapid (test code = Split 0.6 min Point Rapid) [facility] Cent[id number] 21:07:00 Test Item Value Reference Range Interpretation Comments PTT (test code = PTT) 30.6 s 22.9-35.8 [facility] CenterYydvscuCBSBIWGFNR8673-08-35 21:07:00 Test Item Value Reference Range Interpretation Comments INR (test code = INR) 1.03 1 0.85-1.17 [facility] CenterOablzdhELTHXGDFGJ3754-00-48 21:07:00 Test Item Value Reference Range Interpretation Comments PT (test code = PT) 13.3 s 12.0-14.7 [facility] CenterJnlumohECSXOHZKIW7984-37-62 21:07:00 Test Item Value Reference Range Interpretation Comments Hgb (test code = Hgb) 11.1 12.0-16.0 [facility] CenterPmlljhrSOQWDFHXAI5893-21-04 21:07:00 Test Item Value Reference Range Interpretation Comments Hct (test code = Hct) 33.7 36.0-48.0 [facility] CenterNzwpkryROGJBAHXTQ1755-59-69 21:07:00 Test Item Value Reference Range Interpretation Comments RBC (test code = RBC) 4.04 4.20-5.40 [facility] CenterKluvilmGUIVXIMVHL6457-27-60 21:07:00 Test Item Value Reference Range Interpretation Comments WBC (test code = WBC) 5.8 3.7-10.4 [facility] CenterPzprfbuOZRSIDTFLK2639-07-76 21:07:00 Test Item Value Reference Range Interpretation Comments RDW (test code = RDW) 17.2 11.5-14.5 [facility] CenterBkbidamZRILDLAQST9349-24-51 21:07:00 Test Item Value Reference Range Interpretation Comments Platelet (test code = Platelet) 365 133-450 [facility] CenterIuktgwqCIPZCBXMWE3880-26-28 21:07:00 Test Item Value Reference Range Interpretation Comments MCHC (test code = MCHC) 32.9 32.0-36.0 [facility] CenterFziejfsLXUEGWDTXO0385-87-68 21:07:00 Test Item Value Reference Range Interpretation Comments MCV (test code = MCV) 83.5 80.0-98.0 [facility] CenterVvglafmYRPGUAWVWD9615-66-91 21:07:00 Test Item Value Reference Range Interpretation Comments MCH (test code = MCH) 27.5 pg 27.0-31.0 [facility] CenterImiitggRSUVMGEXOG1059-61-94 21:07:00 Test Item Value Reference Range Interpretation Comments MPV (test code = MPV) 8.4 7.4-10.4 [facility] CenterVcgnsttCNWCBAYBEX5359-79-79 21:07:00 Test Item Value Reference Range Interpretation Comments Segs (test code = Segs) 56.3 45.0-75.0 [facility] CenterCnrremaYGDSAITZKO5441-67-92 21:07:00 Test Item Value Reference Range Interpretation Comments Lymphocytes (test code = Lymphocytes) 29.4 20.0-40.0 [facility] CenterFbanaulFMAQFALHHR9365-49-05 21:07:00 Test Item Value Reference Range Interpretation Comments Monocytes (test code = Monocytes) 9.6 2.0-12.0 [facility] CenterSxmopglYQVVOMQSKE9305-50-97 21:07:00 Test Item Value Reference Range Interpretation Comments Eosinophils (test code = 4.0 See_Comment [A utomated message] The Eosinophils) system which ge nerated this result tra nsmitted reference range : <=4.0. The reference r corazon was not used to int erpret this result as normal/abnormal . [facility] CenterDvcokrrGSFXLSOGPH9465-67-29 21:07:00 Test Item Value Reference Range Interpretation Comments Basophils (test code = 0.7 See_Comment [Aut omated message] The Basophils) system which ge nerated this result tra nsmitted reference range : <=1.0. The reference r corazon was not used to int erpret this result as normal/abnormal . [facility] CenterYbwddovXJURMNGWNQ1757-58-58 21:07:00 Test Item Value Reference Range Interpretation Comments Neutrophils # (test code = Neutrophils 3.3 1.5-8.1 #) [facility] CenterVrdzilnABGUHMGQUR2210-75-59 21:07:00 Test Item Value Reference Range Interpretation Comments Lymphocytes # (test code = Lymphocytes 1.7 1.0-5.5 #) [facility] CenterQrfvidcPIUHJDVLPS4646-94-05 21:07:00 Test Item Value Reference Range Interpretation Comments Monocytes # (test code 0.6 See_Comment [Aut omated message] The = Monocytes #) system which generated this result tra nsmitted reference range : <=0.8. The reference r corazon was not used to int erpret this result as normal/abnormal . [facility] CenterNlmaymdHSRAGZHBRT4105-68-77 21:07:00 Test Item Value Reference Range Interpretation Comments Eosinophils # (test code 0.2 See_Comment [A utomated message] The = Eosinophils #) system whic h generated this result tra nsmitted reference range : <=0.5. The reference r corazon was not used to int erpret this result as normal/abnormal . [facility]2019-01-10 21:07:00 Test Item Value Reference Range Interpretation Comments eGFR (test code = eGFR) 109 [facility]2019-01-10 21:07:00 Test Item Value Reference Range Interpretation Comments Chloride Lvl (test code = Chloride Lvl) 112 95-109 [facility]2019-01-10 21:07:00 Test Item Value Reference Range Interpretation Comments CO2 (test code = CO2) 23 24-32 [facility]2019-01-10 21:07:00 Test Item Value Reference Range Interpretation Comments Creatinine Lvl (test code = Creatinine 0.58 0.50-1.40 Lvl) [facility]2019-01-10 21:07:00 Test Item Value Reference Range Interpretation Comments Sodium Lvl (test code = Sodium Lvl) 144 135-145 [facility]2019-01-10 21:07:00 Test Item Value Reference Range Interpretation Comments Potassium Lvl (test code = Potassium 4.4 3.5-5.1 Lvl) [facility]2019-01-10 21:07:00 Test Item Value Reference Range Interpretation Comments Calcium Lvl (test code = Calcium Lvl) 8.6 8.5-10.5 [facility]2019-01-10 21:07:00 Test Item Value Reference Range Interpretation Comments BUN (test code = BUN) 7 7-22 [facility]2019-01-10 21:07:00 Test Item Value Reference Range Interpretation Comments Glucose Lvl (test code = Glucose Lvl) 107 70-99 [facility]2019-01-10 21:07:00 Test Item Value Reference Range Interpretation Comments AGAP (test code = AGAP) 13.4 10.0-20.0 [facility] CenterMnxewspDJLRYGXDXR6541-37-88 21:07:00 Test Item Value Reference Range Interpretation Comments Estimated % Lysis Rapid 2.1 See_Comment [Au tomated message] The (test code = Estimated syste m which generated % Lysis Rapid) this result t ransmitted reference range : <=7.5. The reference r corazon was not used to int erpret this result as normal/abnormal . [facility] CenterZktjxzxOCRCDGGWAZ2392-94-46 21:07:00 Test Item Value Reference Range Interpretation Comments Angle Rapid (test code = Angle 75 degrees 64-80 Rapid) [facility] CenterQaixlxfTYTECOPHGA9068-09-91 21:07:00 Test Item Value Reference Range Interpretation Comments G-value Rapid (test code = G-value 8.6 5.0-11.6 Rapid) [facility] CenterJrwvdhyYVTVVORYRE3076-19-02 21:07:00 Test Item Value Reference Range Interpretation Comments Max Amplitude Rapid (test code = Max 63 mm 52-71 Amplitude Rapid) [facility] CenterPfsrntxGHHMKCIEFT8554-70-41 21:07:00 Test Item Value Reference Range Interpretation Comments R-time Rapid (test code = R-time 0.7 min 0.4-0.7 Rapid) [facility] CenterBkjgekqJRGRKUHKNM0117-55-96 21:07:00 Test Item Value Reference Range Interpretation Comments K-time Rapid (test code = K-time 1.2 min 0.6-2.3 Rapid) [facility] CenterAlchejqGYYNHZFXZU0154-92-16 21:07:00 Test Item Value Reference Range Interpretation Comments ACT (TEG) Rapid (test code = ACT (TEG) 113 s 86-118 Rapid) [facility] CenterJnsuowaSUBUDUBCNA0482-49-08 21:07:00 Test Item Value Reference Range Interpretation Comments Split Point Rapid (test code = Split 0.6 min Point Rapid) [facility] CenterTpvkvufSHMZAVARYI4932-46-52 21:07:00 Test Item Value Reference Range Interpretation Comments PTT (test code = PTT) 30.6 s 22.9-35.8 [facility] CenterOhspseeCYDMJFWAXH4580-53-71 21:07:00 Test Item Value Reference Range Interpretation Comments INR (test code = INR) 1.03 1 0.85-1.17 [facility] CenterGtvggrfZREOEZKOHV2282-02-01 21:07:00 Test Item Value Reference Range Interpretation Comments PT (test code = PT) 13.3 s 12.0-14.7 [facility] CenterFydnrtmUNWWEBZGYV2709-23-90 21:07:00 Test Item Value Reference Range Interpretation Comments Hgb (test code = Hgb) 11.1 12.0-16.0 [facility] CenterAzynsslKPKWXAEMKS8177-26-09 21:07:00 Test Item Value Reference Range Interpretation Comments Hct (test code = Hct) 33.7 36.0-48.0 [facility] CenterMucmxjlPWBODIPGNX2616-57-20 21:07:00 Test Item Value Reference Range Interpretation Comments RBC (test code = RBC) 4.04 4.20-5.40 [facility] CenterJiqmnpmDGIVVGRISG8576-95-05 21:07:00 Test Item Value Reference Range Interpretation Comments WBC (test code = WBC) 5.8 3.7-10.4 [facility] CenterOpyvjyqDZKPDYRCAS1893-33-85 21:07:00 Test Item Value Reference Range Interpretation Comments RDW (test code = RDW) 17.2 11.5-14.5 [facility] CenterOjqedolLRXQLFYCRF7072-61-48 21:07:00 Test Item Value Reference Range Interpretation Comments Platelet (test code = Platelet) 365 133-450 [facility] CenterXdrcbvlYQBZNAYGAR2903-68-51 21:07:00 Test Item Value Reference Range Interpretation Comments MCHC (test code = MCHC) 32.9 32.0-36.0 [facility] CenterTrgnsdwBPMKZZJVKH2730-07-68 21:07:00 Test Item Value Reference Range Interpretation Comments MCV (test code = MCV) 83.5 80.0-98.0 [facility] CenterFxstnecZBKWKQNWZS1792-20-66 21:07:00 Test Item Value Reference Range Interpretation Comments MCH (test code = MCH) 27.5 pg 27.0-31.0 [facility] CenterRsczyzjVNRQDYMEFA2912-77-76 21:07:00 Test Item Value Reference Range Interpretation Comments MPV (test code = MPV) 8.4 7.4-10.4 [facility] CenterWnjplcoYQHSITCSZJ9700-73-89 21:07:00 Test Item Value Reference Range Interpretation Comments Segs (test code = Segs) 56.3 45.0-75.0 [facility] CenterYbbzgboLVKMKYFXWD0941-15-04 21:07:00 Test Item Value Reference Range Interpretation Comments Lymphocytes (test code = Lymphocytes) 29.4 20.0-40.0 [facility] CenterPoywmimJMIONESJJC6883-58-35 21:07:00 Test Item Value Reference Range Interpretation Comments Monocytes (test code = Monocytes) 9.6 2.0-12.0 [facility] CenterRscqftmQHSPPSYJOM9294-49-48 21:07:00 Test Item Value Reference Range Interpretation Comments Eosinophils (test code = 4.0 See_Comment [A utomated message] The Eosinophils) system which ge nerated this result tra nsmitted reference range : <=4.0. The reference r corazon was not used to int erpret this result as normal/abnormal . [facility] CenterMqqymcoQTAQAXRKYW2659-08-01 21:07:00 Test Item Value Reference Range Interpretation Comments Basophils (test code = 0.7 See_Comment [Aut omated message] The Basophils) system which ge nerated this result tra nsmitted reference range : <=1.0. The reference r corazon was not used to int erpret this result as normal/abnormal . [facility] CenterCvpyfddMLOVFUMMJC5483-72-90 21:07:00 Test Item Value Reference Range Interpretation Comments Neutrophils # (test code = Neutrophils 3.3 1.5-8.1 #) [facility] CenterWykkxdqOZFHBIKQPL0886-44-22 21:07:00 Test Item Value Reference Range Interpretation Comments Lymphocytes # (test code = Lymphocytes 1.7 1.0-5.5 #) [facility]JP95[facility] 21:07:00 Test Item Value Reference Range Interpretation Comments Monocytes # (test code 0.6 See_Comment [Aut omated message] The = Monocytes #) system which generated this result tra nsmitted reference range : <=0.8. The reference r corazon was not used to int erpret this result as normal/abnormal . [facility] CenterJocgajpNUVOZLRTZB2575-98-08 21:07:00 Test Item Value Reference Range Interpretation Comments Eosinophils # (test code 0.2 See_Comment [A utomated message] The = Eosinophils #) system whic h generated this result tra nsmitted reference range : <=0.5. The reference r corazon was not used to int erpret this result as normal/abnormal . [facility] [employer] AKYVNXQ5812-09-47 11:47:00 Test Item Value Reference Range Interpretation Comments Antibody Scrn (test Negative (01/31/18 code = Antibody Scrn) 6:47 AM) [facility] [employer] [id number] 11:47:00 Test Item Value Reference Range Interpretation Comments ABO/Rh (test code = ABO/Rh) O POS [employer] [id number] 11:47:00 Test Item Value Reference Range Interpretation Comments Antibody Scrn (test Negative (01/31/18 code = Antibody Scrn) 6:47 AM) [facility] [employer] [id number] 11:47:00 Test Item Value Reference Range Interpretation Comments ABO/Rh (test code = ABO/Rh) O POS [facility] [employer] [id number] 11:47:00 Test Item Value Reference Range Interpretation Comments Antibody Scrn (test Negative (01/31/18 code = Antibody Scrn) 6:47 AM) [facility] [employer] [id number] 11:47:00 Test Item Value Reference Range Interpretation Comments ABO/Rh (test code = ABO/Rh) O POS [facility] [employer] [id number] 11:41:00 Test Item Value Reference Range Interpretation Comments eGFR (test code = eGFR) 105 [facility] [employer] [id number] 11:41:00 Test Item Value Reference Range Interpretation Comments Calcium Lvl (test code = Calcium Lvl) 8.3 8.5-10.5 [facility]2018-10-30 11:41:00 Test Item Value Reference Range Interpretation Comments Chloride Lvl (test code = Chloride Lvl) 108 95-109 [facility]2018-10-30 11:41:00 Test Item Value Reference Range Interpretation Comments CO2 (test code = CO2) 27 24-32 [facility]2018-10-30 11:41:00 Test Item Value Reference Range Interpretation Comments Glucose Lvl (test code = Glucose Lvl) 95 70-99 [facility]2018-10-30 11:41:00 Test Item Value Reference Range Interpretation Comments Potassium Lvl (test code = Potassium 4.2 3.5-5.1 Lvl) [facility]2018-10-30 11:41:00 Test Item Value Reference Range Interpretation Comments Creatinine Lvl (test code = Creatinine 0.65 0.50-1.40 Lvl) [facility]2018-10-30 11:41:00 Test Item Value Reference Range Interpretation Comments BUN (test code = BUN) 11 7-22 [facility]2018-10-30 11:41:00 Test Item Value Reference Range Interpretation Comments Sodium Lvl (test code = Sodium Lvl) 139 135-145 [facility]2018-10-30 11:41:00 Test Item Value Reference Range Interpretation Comments AGAP (test code = AGAP) 8.2 10.0-20.0 [facility]2018-10-30 11:41:00 Test Item Value Reference Range Interpretation Comments Lactic Acid Lvl (test code = Lactic 0.8 0.5-2.2 Acid Lvl) [facility]2018-10-30 11:41:00 Test Item Value Reference Range Interpretation Comments UDS Note (test code = See Note (01/31/18 6:41 UDS Note) AM) [facility]2018-10-30 11:41:00 Test Item Value Reference Range Interpretation Comments U Cocaine Scr (test Negative *NA*(01/31/18 code = U Cocaine Scr) 6:41 AM) [facility]2018-10-30 11:41:00 Test Item Value Reference Range Interpretation Comments U Benzodiaz Scr (test Negative *NA*(01/31/18 code = U Benzodiaz Scr) 6:41 AM) [facility] [id number] 11:41:00 Test Item Value Reference Range Interpretation Comments U Phencyclidine Scr (test Negative code = U Phencyclidine *NA*(01/31/18 6:41 Scr) AM) [facility]2018-10-30 11:41:00 Test Item Value Reference Range Interpretation Comments U Opiate Scr (test Negative *NA*(01/31/18 code = U Opiate Scr) 6:41 AM) [facility]2018-10-30 11:41:00 Test Item Value Reference Range Interpretation Comments U Cannab Scr (test Negative *NA*(01/31/18 code = U Cannab Scr) 6:41 AM) [facility]2018-10-30 11:41:00 Test Item Value Reference Range Interpretation Comments U Amph Scr (test code Negative *NA*(01/31/18 = U Amph Scr) 6:41 AM) [facility]2018-10-30 11:41:00 Test Item Value Reference Range Interpretation Comments U Reta Scr (test code Negative *NA*(01/31/18 = U Reta Scr) 6:41 AM) [facility][id number] 11:41:00 Test Item Value Reference Range Interpretation Comments S Preg (test code = S Negative *NA*(01/31/18 Preg) 6:41 AM) [facility] CenterOuhkjhkKGCCQAMUWN7164-07-30 11:41:00 Test Item Value Reference Range Interpretation Comments Monocytes # (test code 0.7 See_Comment [Aut omated message] The = Monocytes #) system which generated this result tra nsmitted reference range : <=0.8. The reference r corazon was not used to int erpret this result as normal/abnormal . [facility] CenterFffyxhdWVSHUPUGRS8981-22-43 11:41:00 Test Item Value Reference Range Interpretation Comments Lymphocytes # (test code = Lymphocytes 2.9 1.0-5.5 #) [facility] CenterFzoboenZVOUYCIIWM5283-12-28 11:41:00 Test Item Value Reference Range Interpretation Comments Eosinophils # (test code 0.2 See_Comment [A utomated message] The = Eosinophils #) system whic h generated this result tra nsmitted reference range : <=0.5. The reference r corazon was not used to int erpret this result as normal/abnormal . [facility] CenterExzvlyoHCJXWJETTF3136-73-18 11:41:00 Test Item Value Reference Range Interpretation Comments Segs (test code = Segs) 55.3 45.0-75.0 [facility] CenterJtdqkroFNKYPIGLCP0833-06-94 11:41:00 Test Item Value Reference Range Interpretation Comments Lymphocytes (test code = Lymphocytes) 33.5 20.0-40.0 [facility] CenterMadkyntAHYICOKVFQ1929-87-09 11:41:00 Test Item Value Reference Range Interpretation Comments Monocytes (test code = Monocytes) 8.5 2.0-12.0 [facility] CenterCwhlrizGOGRWEWENH1016-44-40 11:41:00 Test Item Value Reference Range Interpretation Comments Basophils (test code = 0.4 See_Comment [Aut omated message] The Basophils) system which ge nerated this result tra nsmitted reference range : <=1.0. The reference r corazon was not used to int erpret this result as normal/abnormal . [facility] CenterBdrudmqLQCGBOODKH8805-69-77 11:41:00 Test Item Value Reference Range Interpretation Comments Eosinophils (test code = 2.3 See_Comment [A utomated message] The Eosinophils) system which ge nerated this result tra nsmitted reference range : <=4.0. The reference r corazon was not used to int erpret this result as normal/abnormal . [facility] CenterJksamnpVKTWDSYVYF3824-07-87 11:41:00 Test Item Value Reference Range Interpretation Comments Neutrophils # (test code = Neutrophils 4.9 1.5-8.1 #) [facility] CenterVkulqunXMSCGEWNXP3523-13-54 11:41:00 Test Item Value Reference Range Interpretation Comments WBC (test code = WBC) 8.8 3.7-10.4 [facility] CenterPyhzvrxUDYKPKFQQE3273-15-68 11:41:00 Test Item Value Reference Range Interpretation Comments MCH (test code = MCH) 28.1 pg 27.0-31.0 [facility] CenterXjjphcqKEHGXPLVFI2795-35-44 11:41:00 Test Item Value Reference Range Interpretation Comments MCHC (test code = MCHC) 32.9 32.0-36.0 [facility] CenterLshezzwQDIMBCFJHU9756-99-72 11:41:00 Test Item Value Reference Range Interpretation Comments RDW (test code = RDW) 15.9 11.5-14.5 [facility] CenterTexzceuZMAPBSASSG3925-82-44 11:41:00 Test Item Value Reference Range Interpretation Comments RBC (test code = RBC) 4.10 4.20-5.40 [facility] CenterHxogkcjZTBMNHKSJQ7332-85-28 11:41:00 Test Item Value Reference Range Interpretation Comments Hct (test code = Hct) 34.9 36.0-48.0 [facility] CenterQfrmkshWAUGSTCNHI4830-37-88 11:41:00 Test Item Value Reference Range Interpretation Comments MCV (test code = MCV) 85.2 80.0-98.0 [facility] CenterWywqndpNVEPLKIVIG3592-20-00 11:41:00 Test Item Value Reference Range Interpretation Comments Hgb (test code = Hgb) 11.5 12.0-16.0 [facility] CenterJiduhckFQUHJRTUYM5018-13-96 11:41:00 Test Item Value Reference Range Interpretation Comments Platelet (test code = Platelet) 312 133-450 [facility] CenterEfumadwATHYRQZXBK4070-40-58 11:41:00 Test Item Value Reference Range Interpretation Comments MPV (test code = MPV) 7.7 7.4-10.4 [facility] CenterMghfparYVCCQQAEDR4372-59-06 11:41:00 Test Item Value Reference Range Interpretation Comments ACT (TEG) Rapid (test code = ACT (TEG) 105 s 86-118 Rapid) [facility] CenterFklibbiOPKPIJGRZV9637-76-43 11:41:00 Test Item Value Reference Range Interpretation Comments Angle Rapid (test code = Angle 75 degrees 64-80 Rapid) [facility] CenterDgckqszQASKZPMSMR5801-55-75 11:41:00 Test Item Value Reference Range Interpretation Comments K-time Rapid (test code = K-time 1.2 min 0.6-2.3 Rapid) [facility] CenterWqpatxzOMRDGZJSRA5473-18-39 11:41:00 Test Item Value Reference Range Interpretation Comments R-time Rapid (test code = R-time 0.6 min 0.4-0.7 Rapid) [facility] CenterFjphmddGKKIGPCKRD2921-65-03 11:41:00 Test Item Value Reference Range Interpretation Comments Split Point Rapid (test code = Split 0.4 min Point Rapid) [facility] CenterLtburugGKGXEMYSJY2874-83-14 11:41:00 Test Item Value Reference Range Interpretation Comments Estimated % Lysis Rapid 1.3 See_Comment [Au tomated message] The (test code = Estimated syste m which generated % Lysis Rapid) this result t ransmitted reference range : <=7.5. The reference r corazon was not used to int erpret this result as normal/abnormal . [facility]UtlknhcSBNRBZDFUH6533-77-97 11:41:00 Test Item Value Reference Range Interpretation Comments G-value Rapid (test code = G-value 8.2 5.0-11.6 Rapid) [facility]JBWZPJSNZC0522[facility] 11:41:00 Test Item Value Reference Range Interpretation Comments Max Amplitude Rapid (test code = Max 62 mm 52-71 Amplitude Rapid) [id number] 11:41:00 Test Item Value Reference Range Interpretation Comments [facility] HIV 4th GEN (test Negative *NA*(01/31/18 code = [facility] HIV 4th 6:41 AM) GEN) [facility] H[id number] 11:41:00 Test Item Value Reference Range Interpretation Comments Ethanol Lvl (test code = Ethanol <3.0 mg/dL Lvl) [facility] HospitalAjofblvVBKNEMRNHP2512-83-18 11:41:00 Test Item Value Reference Range Interpretation Comments Etoh (%) (test code = Etoh (%)) <0.003 % [facility] AND [id number] 11:41:00 Test Item Value Reference Range Interpretation Comments UA Sq Epi (test code = UA Sq Epi) Few /LPF [facility] AND [id number] 11:41:00 Test Item Value Reference Range Interpretation Comments UA WBC (test code = UA WBC) 0-2 /HPF [facility] AND [id number] 11:41:00 Test Item Value Reference Range Interpretation Comments UA RBC (test code = 0-2 /HPF See_Comment [Automa ann marie message] The UA RBC) system which ge nerated this result tra nsmitted reference range : <=2. The reference range was not used to interpr et this result as juan l/abnormal. [facility] [id number] 11:41:00 Test Item Value Reference Range Interpretation Comments UA Bacteria (test code = UA Occasional /HPF Bacteria) [facility] AND [id number] 11:41:00 Test Item Value Reference Range Interpretation Comments UA Urobilinogen (test code = UA 0.2 0.1-1.0 Urobilinogen) [facility] AND [id number] 11:41:00 Test Item Value Reference Range Interpretation Comments UA Blood (test code = Trace *ABN*(01/31/18 UA Blood) 6:41 AM) [facility] AND [id number] 11:41:00 Test Item Value Reference Range Interpretation Comments UA Bili (test code = Negative *NA*(01/31/18 UA Bili) 6:41 AM) [facility] AND [id number] 11:41:00 Test Item Value Reference Range Interpretation Comments UA Glucose (test code Negative (01/31/18 6:41 = UA Glucose) AM) [facility] AND [id number] 11:41:00 Test Item Value Reference Range Interpretation Comments UA pH (test code = UA pH) 7.0 1 5.0-8.0 [facility] AND [id number] 11:41:00 Test Item Value Reference Range Interpretation Comments UA Ketones (test code Negative *NA*(01/31/18 = UA Ketones) 6:41 AM) [facility] AND [id number] 11:41:00 Test Item Value Reference Range Interpretation Comments UA Protein (test code Negative (01/31/18 6:41 = UA Protein) AM) [facility] AND [id number] 11:41:00 Test Item Value Reference Range Interpretation Comments UA Leuk Est (test code Trace *ABN*(01/31/18 = UA Leuk Est) 6:41 AM) [facility] AND [id number] 11:41:00 Test Item Value Reference Range Interpretation Comments UA Nitrite (test code Negative (01/31/18 6:41 = UA Nitrite) AM) [facility] AND [id number] 11:41:00 Test Item Value Reference Range Interpretation Comments UA Spec Grav (test code = UA Spec 1.010 1 Grav) [facility] AND [id number] 11:41:00 Test Item Value Reference Range Interpretation Comments UA Color (test code = Yellow *NA*(01/31/18 UA Color) 6:41 AM) [facility] AND [id number] 11:41:00 Test Item Value Reference Range Interpretation Comments UA Turbidity (test code = Clear (01/31/18 6:41 UA Turbidity) AM) [facility] [id number] 11:41:00 Test Item Value Reference Range Interpretation Comments eGFR (test code = eGFR) 105 [facility] [id number] 11:41:00 Test Item Value Reference Range Interpretation Comments Calcium Lvl (test code = Calcium Lvl) 8.3 8.5-10.5 [facility]2018-10-30 11:41:00 Test Item Value Reference Range Interpretation Comments Chloride Lvl (test code = Chloride Lvl) 108 95-109 [facility]2018-10-30 11:41:00 Test Item Value Reference Range Interpretation Comments CO2 (test code = CO2) 27 24-32 [facility]2018-10-30 11:41:00 Test Item Value Reference Range Interpretation Comments Glucose Lvl (test code = Glucose Lvl) 95 70-99 [facility]2018-10-30 11:41:00 Test Item Value Reference Range Interpretation Comments Potassium Lvl (test code = Potassium 4.2 3.5-5.1 Lvl) [facility] [id number] 11:41:00 Test Item Value Reference Range Interpretation Comments Creatinine Lvl (test code = Creatinine 0.65 0.50-1.40 Lvl) [facility] [id number] 11:41:00 Test Item Value Reference Range Interpretation Comments BUN (test code = BUN) 11 7-22 [facility]2018-10-30 11:41:00 Test Item Value Reference Range Interpretation Comments Sodium Lvl (test code = Sodium Lvl) 139 135-145 [facility]2018-10-30 11:41:00 Test Item Value Reference Range Interpretation Comments AGAP (test code = AGAP) 8.2 10.0-20.0 [facility]2018-10-30 11:41:00 Test Item Value Reference Range Interpretation Comments Lactic Acid Lvl (test code = Lactic 0.8 0.5-2.2 Acid Lvl) [facility] [id number] 11:41:00 Test Item Value Reference Range Interpretation Comments UDS Note (test code = See Note (01/31/18 6:41 UDS Note) AM) [facility] [id number] 11:41:00 Test Item Value Reference Range Interpretation Comments U Cocaine Scr (test Negative *NA*(01/31/18 code = U Cocaine Scr) 6:41 AM) [facility] [id number] 11:41:00 Test Item Value Reference Range Interpretation Comments U Benzodiaz Scr (test Negative *NA*(01/31/18 code = U Benzodiaz Scr) 6:41 AM) [facility] [id number] 11:41:00 Test Item Value Reference Range Interpretation Comments U Phencyclidine Scr (test Negative code = U Phencyclidine *NA*(01/31/18 6:41 Scr) AM) [facility] [id number] 11:41:00 Test Item Value Reference Range Interpretation Comments U Opiate Scr (test Negative *NA*(01/31/18 code = U Opiate Scr) 6:41 AM) [facility] [id number] 11:41:00 Test Item Value Reference Range Interpretation Comments U Cannab Scr (test Negative *NA*(01/31/18 code = U Cannab Scr) 6:41 AM) [facility] [id number] 11:41:00 Test Item Value Reference Range Interpretation Comments U Amph Scr (test code Negative *NA*(01/31/18 = U Amph Scr) 6:41 AM) [facility] [id number] 11:41:00 Test Item Value Reference Range Interpretation Comments U Reta Scr (test code Negative *NA*(01/31/18 = U Reta Scr) 6:41 AM) [facility]olrMSNFAQRJQXNHL1531-54-05 11:41:00 Test Item Value Reference Range Interpretation Comments S Preg (test code = S Negative *NA*(01/31/18 Preg) 6:41 AM) [facility]GfnwvhoFYIPDNRUYG3053-12-50 11:41:00 Test Item Value Reference Range Interpretation Comments Monocytes # (test code 0.7 See_Comment [Aut omated message] The = Monocytes #) system which generated this result tra nsmitted reference range : <=0.8. The reference r corazon was not used to int erpret this result as normal/abnormal . [facility] Cent[id number] 11:41:00 Test Item Value Reference Range Interpretation Comments Lymphocytes # (test code = Lymphocytes 2.9 1.0-5.5 #) [facility] Cent[id number] 11:41:00 Test Item Value Reference Range Interpretation Comments Eosinophils # (test code 0.2 See_Comment [A utomated message] The = Eosinophils #) system [facility] generated this result tra nsmitted reference range : <=0.5. The reference r corazon was not used to int erpret this result as normal/abnormal . [facility] CenterPykbqhnFDKTOXDCOZ5496-33-27 11:41:00 Test Item Value Reference Range Interpretation Comments Segs (test code = Segs) 55.3 45.0-75.0 [facility] Cent[id number] 11:41:00 Test Item Value Reference Range Interpretation Comments Lymphocytes (test code = Lymphocytes) 33.5 20.0-40.0 [facility] CenterQuzhmcgSTJRLUOFOB2866-63-55 11:41:00 Test Item Value Reference Range Interpretation Comments Monocytes (test code = Monocytes) 8.5 2.0-12.0 [facility] Cent[id number] 11:41:00 Test Item Value Reference Range Interpretation Comments Basophils (test code = 0.4 See_Comment [Aut omated message] The Basophils) system which ge nerated this result tra nsmitted reference range : <=1.0. The reference r corazon was not used to int erpret this result as normal/abnormal . [facility] CenterLreokrdUTYMZYIERE2021-25-46 11:41:00 Test Item Value Reference Range Interpretation Comments Eosinophils (test code = 2.3 See_Comment [A utomated message] The Eosinophils) system which ge nerated this result tra nsmitted reference range : <=4.0. The reference r corazon was not used to int erpret this result as normal/abnormal . [facility] CenterUhgphecVTGNVYDSRG0015-05-27 11:41:00 Test Item Value Reference Range Interpretation Comments Neutrophils # (test code = Neutrophils 4.9 1.5-8.1 #) [facility] CenterNzfufdpVOWGSCJAEV5876-75-26 11:41:00 Test Item Value Reference Range Interpretation Comments WBC (test code = WBC) 8.8 3.7-10.4 [facility] CenterRkmfvxrGTIGRFWMXQ0841-05-64 11:41:00 Test Item Value Reference Range Interpretation Comments MCH (test code = MCH) 28.1 pg 27.0-31.0 [facility] CenterRnjdzxhXYEJIEBNPU9264-04-10 11:41:00 Test Item Value Reference Range Interpretation Comments MCHC (test code = MCHC) 32.9 32.0-36.0 [facility] CenterNdqlgjsKHSUQYOFRD3310-39-25 11:41:00 Test Item Value Reference Range Interpretation Comments RDW (test code = RDW) 15.9 11.5-14.5 [facility] CenterPapmxatVIERXDFCGQ8927-44-51 11:41:00 Test Item Value Reference Range Interpretation Comments RBC (test code = RBC) 4.10 4.20-5.40 [facility] CenterZwgtqoiEDFOTLDFPX6653-29-05 11:41:00 Test Item Value Reference Range Interpretation Comments Hct (test code = Hct) 34.9 36.0-48.0 [facility] CenterAexzoswATKKLKMXDX6605-11-48 11:41:00 Test Item Value Reference Range Interpretation Comments MCV (test code = MCV) 85.2 80.0-98.0 [facility] CenterJkvbvrfTFNCUKJSLK3765-10-75 11:41:00 Test Item Value Reference Range Interpretation Comments Hgb (test code = Hgb) 11.5 12.0-16.0 [facility] CenterUxryguhNDITQTDUGI8983-38-57 11:41:00 Test Item Value Reference Range Interpretation Comments Platelet (test code = Platelet) 312 133-450 [facility] CenterEjreupvCHJXFUPRLC6542-31-26 11:41:00 Test Item Value Reference Range Interpretation Comments MPV (test code = MPV) 7.7 7.4-10.4 [facility] CenterZakdegsUGIXBTTCIZ2286-61-62 11:41:00 Test Item Value Reference Range Interpretation Comments ACT (TEG) Rapid (test code = ACT (TEG) 105 s 86-118 Rapid) [facility] CenterLgignuyZUJVBAVNKJ5080-62-86 11:41:00 Test Item Value Reference Range Interpretation Comments Angle Rapid (test code = Angle 75 degrees 64-80 Rapid) [facility] CenterVpzddxrMALWJHSEAY8604-33-04 11:41:00 Test Item Value Reference Range Interpretation Comments K-time Rapid (test code = K-time 1.2 min 0.6-2.3 Rapid) [facility] CenterOwftuggYTLKNGLJRX9445-25-37 11:41:00 Test Item Value Reference Range Interpretation Comments R-time Rapid (test code = R-time 0.6 min 0.4-0.7 Rapid) [facility] CenterJmfiwszXFBJUBDUKW6047-73-92 11:41:00 Test Item Value Reference Range Interpretation Comments Split Point Rapid (test code = Split 0.4 min Point Rapid) [facility] CenterJtrqsmaPJNGHGVOMC9769-74-59 11:41:00 Test Item Value Reference Range Interpretation Comments Estimated % Lysis Rapid 1.3 See_Comment [Au tomated message] The (test code = Estimated syste m which generated % Lysis Rapid) this result t ransmitted reference range : <=7.5. The reference r corazon was not used to int erpret this result as normal/abnormal . [facility] CenterTfwonzlGMOKUMZFDS8573-63-21 11:41:00 Test Item Value Reference Range Interpretation Comments G-value Rapid (test code = G-value 8.2 5.0-11.6 Rapid) [facility] CenterDotvtlwNAZXQNONLL3064-31-43 11:41:00 Test Item Value Reference Range Interpretation Comments Max Amplitude Rapid (test code = Max 62 mm 52-71 Amplitude Rapid) [facility]WmzpslrAAJRAAQRGT6955-13-00 11:41:00 Test Item Value Reference Range Interpretation Comments [facility] HIV 4th GEN (test Negative *NA*(01/31/18 code = [facility] HIV 4th 6:41 AM) GEN) [facility]LmscklmENJXUBLVUT7754-99-22 11:41:00 Test Item Value Reference Range Interpretation Comments Ethanol Lvl (test code = Ethanol <3.0 mg/dL Lvl) [facility]inteYysdmkpJHOSGMXXZM1648-06-84 11:41:00 Test Item Value Reference Range Interpretation Comments Etoh (%) (test code = Etoh (%)) <0.003 % [facility] AND [id number] 11:41:00 Test Item Value Reference Range Interpretation Comments UA Sq Epi (test code = UA Sq Epi) Few /LPF [facility] AND [id number] 11:41:00 Test Item Value Reference Range Interpretation Comments UA WBC (test code = UA WBC) 0-2 /HPF [facility] AND [id number] 11:41:00 Test Item Value Reference Range Interpretation Comments UA RBC (test code = 0-2 /HPF See_Comment [Automa ann marie message] The UA RBC) system which ge nerated this result tra nsmitted reference range : <=2. The reference range was not used to interpr et this result as juan l/abnormal. [facility] AND [id number] 11:41:00 Test Item Value Reference Range Interpretation Comments UA Bacteria (test code = UA Occasional /HPF Bacteria) [facility] AND [id number] 11:41:00 Test Item Value Reference Range Interpretation Comments UA Urobilinogen (test code = UA 0.2 0.1-1.0 Urobilinogen) [facility] AND [id number] 11:41:00 Test Item Value Reference Range Interpretation Comments UA Blood (test code = Trace *ABN*(01/31/18 UA Blood) 6:41 AM) [facility] AND [id number] 11:41:00 Test Item Value Reference Range Interpretation Comments UA Bili (test code = Negative *NA*(01/31/18 UA Bili) 6:41 AM) [facility] AND [id number] 11:41:00 Test Item Value Reference Range Interpretation Comments UA Glucose (test code Negative (01/31/18 6:41 = UA Glucose) AM) [facility] AND [id number] 11:41:00 Test Item Value Reference Range Interpretation Comments UA pH (test code = UA pH) 7.0 1 5.0-8.0 [facility] AND [id number] 11:41:00 Test Item Value Reference Range Interpretation Comments UA Ketones (test code Negative *NA*(01/31/18 = UA Ketones) 6:41 AM) [facility] AND [id number] 11:41:00 Test Item Value Reference Range Interpretation Comments UA Protein (test code Negative (01/31/18 6:41 = UA Protein) AM) [facility] AND [id number] 11:41:00 Test Item Value Reference Range Interpretation Comments UA Leuk Est (test code Trace *ABN*(01/31/18 = UA Leuk Est) 6:41 AM) [facility] AND [id number] 11:41:00 Test Item Value Reference Range Interpretation Comments UA Nitrite (test code Negative (01/31/18 6:41 = UA Nitrite) AM) [facility] AND [id number] 11:41:00 Test Item Value Reference Range Interpretation Comments UA Spec Grav (test code = UA Spec 1.010 1 Grav) [facility] AND [id number] 11:41:00 Test Item Value Reference Range Interpretation Comments UA Color (test code = Yellow *NA*(01/31/18 UA Color) 6:41 AM) [facility] AND [id number] 11:41:00 Test Item Value Reference Range Interpretation Comments UA Turbidity (test code = Clear (01/31/18 6:41 UA Turbidity) AM) [facility]2018-10-30 11:41:00 Test Item Value Reference Range Interpretation Comments eGFR (test code = eGFR) 105 [facility]2018-10-30 11:41:00 Test Item Value Reference Range Interpretation Comments Calcium Lvl (test code = Calcium Lvl) 8.3 8.5-10.5 [facility]2018-10-30 11:41:00 Test Item Value Reference Range Interpretation Comments Chloride Lvl (test code = Chloride Lvl) 108 95-109 [facility]2018-10-30 11:41:00 Test Item Value Reference Range Interpretation Comments CO2 (test code = CO2) 27 24-32 [facility]2018-10-30 11:41:00 Test Item Value Reference Range Interpretation Comments Glucose Lvl (test code = Glucose Lvl) 95 70-99 [facility]2018-10-30 11:41:00 Test Item Value Reference Range Interpretation Comments Potassium Lvl (test code = Potassium 4.2 3.5-5.1 Lvl) [facility]2018-10-30 11:41:00 Test Item Value Reference Range Interpretation Comments Creatinine Lvl (test code = Creatinine 0.65 0.50-1.40 Lvl) [facility]2018-10-30 11:41:00 Test Item Value Reference Range Interpretation Comments BUN (test code = BUN) 11 7-22 [facility]2018-10-30 11:41:00 Test Item Value Reference Range Interpretation Comments Sodium Lvl (test code = Sodium Lvl) 139 135-145 [facility]2018-10-30 11:41:00 Test Item Value Reference Range Interpretation Comments AGAP (test code = AGAP) 8.2 10.0-20.0 [facility] [id number] 11:41:00 Test Item Value Reference Range Interpretation Comments Lactic Acid Lvl (test code = Lactic 0.8 0.5-2.2 Acid Lvl) [facility] [id number] 11:41:00 Test Item Value Reference Range Interpretation Comments UDS Note (test code = See Note (01/31/18 6:41 UDS Note) AM) [facility] [id number] 11:41:00 Test Item Value Reference Range Interpretation Comments U Cocaine Scr (test Negative *NA*(01/31/18 code = U Cocaine Scr) 6:41 AM) [facility] [id number] 11:41:00 Test Item Value Reference Range Interpretation Comments U Benzodiaz Scr (test Negative *NA*(01/31/18 code = U Benzodiaz Scr) 6:41 AM) [facility] [id number] 11:41:00 Test Item Value Reference Range Interpretation Comments U Phencyclidine Scr (test Negative code = U Phencyclidine *NA*(01/31/18 6:41 Scr) AM) [facility] [id number] 11:41:00 Test Item Value Reference Range Interpretation Comments U Opiate Scr (test Negative *NA*(01/31/18 code = U Opiate Scr) 6:41 AM) [facility] [id number] 11:41:00 Test Item Value Reference Range Interpretation Comments U Cannab Scr (test Negative *NA*(01/31/18 code = U Cannab Scr) 6:41 AM) [facility] [id number] 11:41:00 Test Item Value Reference Range Interpretation Comments U Amph Scr (test code Negative *NA*(01/31/18 = U Amph Scr) 6:41 AM) [facility] [id number] 11:41:00 Test Item Value Reference Range Interpretation Comments U Reta Scr (test code Negative *NA*(01/31/18 = U Reta Scr) 6:41 AM) [facility]uimucTQRLGMQPJMLPB2758-79-83 11:41:00 Test Item Value Reference Range Interpretation Comments S Preg (test code = S Negative *NA*(01/31/18 Preg) 6:41 AM) [facility] CenterDdehhelGVNCLSCMUN9343-95-64 11:41:00 Test Item Value Reference Range Interpretation Comments Monocytes # (test code 0.7 See_Comment [Aut omated message] The = Monocytes #) system which generated this result tra nsmitted reference range : <=0.8. The reference r corazon was not used to int erpret this result as normal/abnormal . [facility] CenterHdnykhpUYEVXJWRUK5195-32-83 11:41:00 Test Item Value Reference Range Interpretation Comments Lymphocytes # (test code = Lymphocytes 2.9 1.0-5.5 #) [facility] CenterLwcbqqdQERMJQNPRY3370-72-42 11:41:00 Test Item Value Reference Range Interpretation Comments Eosinophils # (test code 0.2 See_Comment [A utomated message] The = Eosinophils #) system whic h generated this result tra nsmitted reference range : <=0.5. The reference r corazon was not used to int erpret this result as normal/abnormal . [facility] CenterXfhmljxSSHTLIAXKR6097-12-46 11:41:00 Test Item Value Reference Range Interpretation Comments Segs (test code = Segs) 55.3 45.0-75.0 [facility] CenterCcohnsxLBCITEONAV6736-39-61 11:41:00 Test Item Value Reference Range Interpretation Comments Lymphocytes (test code = Lymphocytes) 33.5 20.0-40.0 [facility] CenterByvtonaLYSEEQHLDV4534-49-91 11:41:00 Test Item Value Reference Range Interpretation Comments Monocytes (test code = Monocytes) 8.5 2.0-12.0 [facility] CenterYwpweupRIBGBQTNHN1069-30-87 11:41:00 Test Item Value Reference Range Interpretation Comments Basophils (test code = 0.4 See_Comment [Aut omated message] The Basophils) system which ge nerated this result tra nsmitted reference range : <=1.0. The reference r corazon was not used to int erpret this result as normal/abnormal . [facility] CenterMreyfwjNQXPWROTYU4376-23-15 11:41:00 Test Item Value Reference Range Interpretation Comments Eosinophils (test code = 2.3 See_Comment [A utomated message] The Eosinophils) system which ge nerated this result tra nsmitted reference range : <=4.0. The reference r corazon was not used to int erpret this result as normal/abnormal . [facility] CenterCiajczuQWCFCJVNYP0126-77-76 11:41:00 Test Item Value Reference Range Interpretation Comments Neutrophils # (test code = Neutrophils 4.9 1.5-8.1 #) [facility] CenterXscgwutDHVLULTKLO4268-54-32 11:41:00 Test Item Value Reference Range Interpretation Comments WBC (test code = WBC) 8.8 3.7-10.4 [facility] CenterCeejrtlRMFYSQQWXN1229-60-88 11:41:00 Test Item Value Reference Range Interpretation Comments MCH (test code = MCH) 28.1 pg 27.0-31.0 [facility] CenterXxnlawgMALQWTCHWF7971-36-21 11:41:00 Test Item Value Reference Range Interpretation Comments MCHC (test code = MCHC) 32.9 32.0-36.0 [facility] CenterRmsngehMBWVSQJIHR1534-13-09 11:41:00 Test Item Value Reference Range Interpretation Comments RDW (test code = RDW) 15.9 11.5-14.5 [facility] CenterSzonxjwGLOILSWQVD4031-39-19 11:41:00 Test Item Value Reference Range Interpretation Comments RBC (test code = RBC) 4.10 4.20-5.40 [facility] CenterVaofkoyJJLLCKDKAJ9297-52-71 11:41:00 Test Item Value Reference Range Interpretation Comments Hct (test code = Hct) 34.9 36.0-48.0 [facility] CenterSaspuvwGKZUBYEBPO4681-14-76 11:41:00 Test Item Value Reference Range Interpretation Comments MCV (test code = MCV) 85.2 80.0-98.0 [facility] CenterYzivsljIMQUCPRSKO8317-87-23 11:41:00 Test Item Value Reference Range Interpretation Comments Hgb (test code = Hgb) 11.5 12.0-16.0 [facility] CenterTdvbsdlGVAPFAWMQY2055-01-18 11:41:00 Test Item Value Reference Range Interpretation Comments Platelet (test code = Platelet) 312 133-450 [facility] [id number] 11:41:00 Test Item Value Reference Range Interpretation Comments MPV (test code = MPV) 7.7 7.4-10.4 [facility] CenterAflinxtDLFVCWUPEP7480-35-40 11:41:00 Test Item Value Reference Range Interpretation Comments ACT (TEG) Rapid (test code = ACT (TEG) 105 s 86-118 Rapid) [id number] 11:41:00 Test Item Value Reference Range Interpretation Comments Angle Rapid (test code = Angle 75 degrees 64-80 Rapid) [facility] Cent[id number] 11:41:00 Test Item Value Reference Range Interpretation Comments K-time Rapid (test code = K-time 1.2 min 0.6-2.3 Rapid) [facility] CenterRuycalvICFAUBHXBZ2170-05-00 11:41:00 Test Item Value Reference Range Interpretation Comments R-time Rapid (test code = R-time 0.6 min 0.4-0.7 Rapid) [facility] Cent[id number] 11:41:00 Test Item Value Reference Range Interpretation Comments Split Point Rapid (test code = Split 0.4 min Point Rapid) [facility] CenterPrhermoLJPHZHJBNM3877-72-75 11:41:00 Test Item Value Reference Range Interpretation Comments Estimated % Lysis Rapid 1.3 See_Comment [Au tomated message] The (test code = Estimated syste m which generated % Lysis Rapid) this result t ransmitted reference range : <=7.5. The reference r corazon was not used to int erpret this result as normal/abnormal . [facility] Cent[id number] 11:41:00 Test Item Value Reference Range Interpretation Comments G-value Rapid (test code = G-value 8.2 5.0-11.6 Rapid) [facility] Cent[id number] 11:41:00 Test Item Value Reference Range Interpretation Comments Max Amplitude Rapid (test code = Max 62 mm 52-71 Amplitude Rapid) [facility]dn[facility]bwASLZHMFFTI6623-11-39 11:41:00 Test Item Value Reference Range Interpretation Comments [facility] HIV 4th GEN (test Negative *NA*(01/31/18 code = CDC HIV 4th 6:41 AM) GEN) [facility] H[id number] 11:41:00 Test Item Value Reference Range Interpretation Comments Ethanol Lvl (test code = Ethanol <3.0 mg/dL Lvl) [facility] HospitalQfwdgppIJYSQOZPFL8966-37-72 11:41:00 Test Item Value Reference Range Interpretation Comments Etoh (%) (test code = Etoh (%)) <0.003 % [facility] AND [id number] 11:41:00 Test Item Value Reference Range Interpretation Comments UA Sq Epi (test code = UA Sq Epi) Few /LPF [facility] AND [id number] 11:41:00 Test Item Value Reference Range Interpretation Comments UA WBC (test code = UA WBC) 0-2 /HPF [facility] AND [id number] 11:41:00 Test Item Value Reference Range Interpretation Comments UA RBC (test code = 0-2 /HPF See_Comment [Automa ann marie message] The UA RBC) system which ge nerated this result tra nsmitted reference range : <=2. The reference range was not used to interpr et this result as juan l/abnormal. [facility] AND [id number] 11:41:00 Test Item Value Reference Range Interpretation Comments UA Bacteria (test code = UA Occasional /HPF Bacteria) [facility] AND [id number] 11:41:00 Test Item Value Reference Range Interpretation Comments UA Urobilinogen (test code = UA 0.2 0.1-1.0 Urobilinogen) [facility] AND [id number] 11:41:00 Test Item Value Reference Range Interpretation Comments UA Blood (test code = Trace *ABN*(01/31/18 UA Blood) 6:41 AM) [facility] AND [id number] 11:41:00 Test Item Value Reference Range Interpretation Comments UA Bili (test code = Negative *NA*(01/31/18 UA Bili) 6:41 AM) [facility] AND [id number] 11:41:00 Test Item Value Reference Range Interpretation Comments UA Glucose (test code Negative (01/31/18 6:41 = UA Glucose) AM) [facility] AND [id number] 11:41:00 Test Item Value Reference Range Interpretation Comments UA pH (test code = UA pH) 7.0 1 5.0-8.0 [facility] AND [id number] 11:41:00 Test Item Value Reference Range Interpretation Comments UA Ketones (test code Negative *NA*(01/31/18 = UA Ketones) 6:41 AM) [facility] AND [id number] 11:41:00 Test Item Value Reference Range Interpretation Comments UA Protein (test code Negative (01/31/18 6:41 = UA Protein) AM) [facility] AND [id number] 11:41:00 Test Item Value Reference Range Interpretation Comments UA Leuk Est (test code Trace *ABN*(01/31/18 = UA Leuk Est) 6:41 AM) [facility] AND [id number] 11:41:00 Test Item Value Reference Range Interpretation Comments UA Nitrite (test code Negative (01/31/18 6:41 = UA Nitrite) AM) [facility] AND [id number] 11:41:00 Test Item Value Reference Range Interpretation Comments UA Spec Grav (test code = UA Spec 1.010 1 Grav) [facility] AND [id number] 11:41:00 Test Item Value Reference Range Interpretation Comments UA Color (test code = Yellow *NA*(01/31/18 UA Color) 6:41 AM) [facility] AND [id number] 11:41:00 Test Item Value Reference Range Interpretation Comments UA Turbidity (test code = Clear (01/31/18 6:41 UA Turbidity) AM) [facility]2018-03-27 11:15:00 Test Item Value Reference Range Interpretation Comments Lipase Lvl (test code = Lipase Lvl) 172 73-393 [facility]2018-03-27 11:15:00 Test Item Value Reference Range Interpretation Comments Globulin (test code = Globulin) 3.5 2.7-4.2 [facility]2018-03-27 11:15:00 Test Item Value Reference Range Interpretation Comments A/G Ratio (test code = A/G Ratio) 1.1 1 0.7-1.6 [facility]2018-03-27 11:15:00 Test Item Value Reference Range Interpretation Comments B/C Ratio (test code = B/C Ratio) 13 1 6-25 [facility]2018-03-27 11:15:00 Test Item Value Reference Range Interpretation Comments AGAP (test code = AGAP) 13.6 10.0-20.0 [facility]2018-03-27 11:15:00 Test Item Value Reference Range Interpretation Comments Total Protein (test code = Total 7.2 6.4-8.4 Protein) [facility]2018-03-27 11:15:00 Test Item Value Reference Range Interpretation Comments Alk Phos (test code = Alk Phos) 56 39-136 [facility]2018-03-27 11:15:00 Test Item Value Reference Range Interpretation Comments Bili Total (test code = Bili Total) 0.2 0.2-1.3 [facility]2018-03-27 11:15:00 Test Item Value Reference Range Interpretation Comments Potassium Lvl (test code = Potassium 3.6 3.5-5.1 Lvl) [facility]2018-03-27 11:15:00 Test Item Value Reference Range Interpretation Comments Sodium Lvl (test code = Sodium Lvl) 139 135-145 [facility]2018-03-27 11:15:00 Test Item Value Reference Range Interpretation Comments Calcium Lvl (test code = Calcium Lvl) 8.9 8.5-10.5 [facility]2018-03-27 11:15:00 Test Item Value Reference Range Interpretation Comments Chloride Lvl (test code = Chloride Lvl) 105 95-109 [facility]2018-03-27 11:15:00 Test Item Value Reference Range Interpretation Comments eGFR (test code = eGFR) 107 [facility]2018-03-27 11:15:00 Test Item Value Reference Range Interpretation Comments ALT (test code = ALT) 24 See_Comment [Auto mated message] The system which ge nerated this result transmit ann marie reference range : <=65. The reference range was not used to interpr et this result as juan l/abnormal. [facility]2018-03-27 11:15:00 Test Item Value Reference Range Interpretation Comments AST (test code = AST) 20 See_Comment [Auto mated message] The system which ge nerated this result transmit ann marie reference range : <=37. The reference range was not used to interpr et this result as juan l/abnormal. [facility]2018-03-27 11:15:00 Test Item Value Reference Range Interpretation Comments CO2 (test code = CO2) 24 24-32 [facility]2018-03-27 11:15:00 Test Item Value Reference Range Interpretation Comments Albumin Lvl (test code = Albumin Lvl) 3.7 3.5-5.0 [facility]2018-03-27 11:15:00 Test Item Value Reference Range Interpretation Comments Creatinine Lvl (test code = Creatinine 0.63 0.50-1.40 Lvl) [facility]2018-03-27 11:15:00 Test Item Value Reference Range Interpretation Comments BUN (test code = BUN) 8 7-22 [facility]2018-03-27 11:15:00 Test Item Value Reference Range Interpretation Comments Glucose Lvl (test code = Glucose Lvl) 107 70-99 [facility]GrtobcyKSNCCGAGUUZUV6047-[facility]-03 11:15:00 Test Item Value Reference Range Interpretation Comments S Preg (test code = S Negative *NA*(06/28/17 Preg) 6:15 AM) [facility] Cent[id number] 11:15:00 Test Item Value Reference Range Interpretation Comments RDW (test code = RDW) 15.4 11.5-14.5 [facility] CenterHhuwnqcQGRZHSXSDB7924-86-37 11:15:00 Test Item Value Reference Range Interpretation Comments MPV (test code = MPV) 7.7 7.4-10.4 [facility] CenterPcwzevnWRVUSDUJZK9458-48-66 11:15:00 Test Item Value Reference Range Interpretation Comments Platelet (test code = Platelet) 355 133-450 [facility] CenterDsbuttvGVYIWVQQCS0768-89-18 11:15:00 Test Item Value Reference Range Interpretation Comments MCV (test code = MCV) 87.1 80.0-98.0 [facility] CenterSlznydqJQEXEGSGWK9769-02-62 11:15:00 Test Item Value Reference Range Interpretation Comments Hct (test code = Hct) 37.9 36.0-48.0 [facility] CenterHczegggWTDHXQYCDM5318-01-08 11:15:00 Test Item Value Reference Range Interpretation Comments MCHC (test code = MCHC) 33.3 32.0-36.0 [facility] Cent[id number] 11:15:00 Test Item Value Reference Range Interpretation Comments MCH (test code = MCH) 29.0 pg 27.0-31.0 [facility] CenterZdvtcpvBNCEBXCACV0821-18-11 11:15:00 Test Item Value Reference Range Interpretation Comments Hgb (test code = Hgb) 12.6 12.0-16.0 [facility] CenterIygorkbVHDDTGLBKH0420-51-86 11:15:00 Test Item Value Reference Range Interpretation Comments RBC (test code = RBC) 4.35 4.20-5.40 [facility] CenterUuuzbuvYQUSKJSNZY7448-04-26 11:15:00 Test Item Value Reference Range Interpretation Comments WBC (test code = WBC) 10.7 3.7-10.4 [facility] [id number] 11:15:00 Test Item Value Reference Range Interpretation Comments Monocytes # (test code 0.8 See_Comment [Aut omated message] The = Monocytes #) system which generated this result tra nsmitted reference range : <=0.8. The reference r corazon was not used to int erpret this result as normal/abnormal . [facility] Cent[id number] 11:15:00 Test Item Value Reference Range Interpretation Comments Eosinophils # (test code 0.2 See_Comment [A utomated message] The = Eosinophils #) system whic h generated this result tra nsmitted reference range : <=0.5. The reference r corazon was not used to int erpret this result as normal/abnormal . [facility] Cent[id number] 11:15:00 Test Item Value Reference Range Interpretation Comments Segs (test code = Segs) 72.1 45.0-75.0 [facility] CenterHhtdaugZIEECXBZAZ1511-60-19 11:15:00 Test Item Value Reference Range Interpretation Comments Segs-Bands # (test code = Segs-Bands #) 7.7 1.5-8.1 [facility] CenterVosgmvfBVECXIXZXQ0180-75-05 11:15:00 Test Item Value Reference Range Interpretation Comments Lymphocytes # (test code = Lymphocytes 2.0 1.0-5.5 #) [facility] Cent[id number] 11:15:00 Test Item Value Reference Range Interpretation Comments Basophils (test code = 0.4 See_Comment [Aut omated message] The Basophils) system which ge nerated this result tra nsmitted reference range : <=1.0. The reference r corazon was not used to int erpret this result as normal/abnormal . [facility] Cent[id number] 11:15:00 Test Item Value Reference Range Interpretation Comments Monocytes (test code = Monocytes) 7.2 2.0-12.0 [facility] Cent[id number] 11:15:00 Test Item Value Reference Range Interpretation Comments Eosinophils (test code = 1.7 See_Comment [A utomated message] The Eosinophils) system which ge nerated this result tra nsmitted reference range : <=4.0. The reference r corazon was not used to int erpret this result as normal/abnormal . [facility]FmkloijYJWHEZZQQX7182-87-12 11:15:00 Test Item Value Reference Range Interpretation Comments Lymphocytes (test code = Lymphocytes) 18.6 20.0-40.0 [facility] AND [id number] 11:15:00 Test Item Value Reference Range Interpretation Comments UA Color (test code = Colorless *NA*(06/28/17 UA Color) 6:15 AM) [facility] AND [id number] 11:15:00 Test Item Value Reference Range Interpretation Comments UA Spec Grav (test code = UA Spec 1.002 1 Grav) [facility] AND [id number] 11:15:00 Test Item Value Reference Range Interpretation Comments UA Turbidity (test code = Clear (06/28/17 6:15 UA Turbidity) AM) [facility] AND [id number] 11:15:00 Test Item Value Reference Range Interpretation Comments UA pH (test code = UA pH) 6.0 1 5.0-8.0 [facility] AND [id number] 11:15:00 Test Item Value Reference Range Interpretation Comments UA Glucose (test code = UA Negative mg/dL Glucose) [facility] AND [id number] 11:15:00 Test Item Value Reference Range Interpretation Comments UA Protein (test code = UA Negative mg/dL Protein) [facility] AND GGJVZ Test Item Value Reference Range Interpretation Comments UA Blood (test code = Moderate *ABN*(06/28/17 UA Blood) 6:15 AM) [facility] AND [id number] 11:15:00 Test Item Value Reference Range Interpretation Comments UA Bili (test code = Negative *NA*(06/28/17 UA Bili) 6:15 AM) [facility] AND [id number] 11:15:00 Test Item Value Reference Range Interpretation Comments UA Nitrite (test code Negative (06/28/17 6:15 = UA Nitrite) AM) [facility] AND [id number] 11:15:00 Test Item Value Reference Range Interpretation Comments UA Hyal Cast (test 1 See_Comment [Automat ed message] The code = UA Hyal Cast) system which generated this result transmit ann marie reference range : <=2. The reference range was not used to interpr et this result as juan l/abnormal. [facility] [id number] 11:15:00 Test Item Value Reference Range Interpretation Comments UA Mucus (test code = UA Mucus) Few /LPF [facility] AND [id number] 11:15:00 Test Item Value Reference Range Interpretation Comments UA Urobilinogen (test code = UA <=1.0 mg/dL 0.1-1.0 Urobilinogen) [facility] AND [id number] 11:15:00 Test Item Value Reference Range Interpretation Comments UA Ketones (test code = UA Ketones) Negative [facility] AND [id number] 11:15:00 Test Item Value Reference Range Interpretation Comments UA Bacteria (test code = UA Occasional /HPF Bacteria) [facility] AND [id number] 11:15:00 Test Item Value Reference Range Interpretation Comments UA Sq Epi (test code = UA Sq Occasional /LPF Epi) [facility] AND [id number] 11:15:00 Test Item Value Reference Range Interpretation Comments UA Leuk Est (test Negative (06/28/17 6:15 code = UA Leuk Est) AM) [facility] AND [id number] 11:15:00 Test Item Value Reference Range Interpretation Comments UA RBC (test code = 2 See_Comment [Automa ann marie message] The UA RBC) system which ge nerated this result transmit ann marie reference range : <=2. The reference range was not used to interpr et this result as juan l/abnormal. [facility] [id number] 11:15:00 Test Item Value Reference Range Interpretation Comments UA WBC (test code = 1 See_Comment [Automa ann marie message] The UA WBC) system which ge nerated this result transmit ann marie reference range : <=5. The reference range was not used to interpr et this result as juan l/abnormal. [facility] [id number] 11:15:00 Test Item Value Reference Range Interpretation Comments Lipase Lvl (test code = Lipase Lvl) 172 73-393 [facility]2018-03-27 11:15:00 Test Item Value Reference Range Interpretation Comments Globulin (test code = Globulin) 3.5 2.7-4.2 [facility]2018-03-27 11:15:00 Test Item Value Reference Range Interpretation Comments A/G Ratio (test code = A/G Ratio) 1.1 1 0.7-1.6 [facility]2018-03-27 11:15:00 Test Item Value Reference Range Interpretation Comments B/C Ratio (test code = B/C Ratio) 13 1 6-25 [facility]2018-03-27 11:15:00 Test Item Value Reference Range Interpretation Comments AGAP (test code = AGAP) 13.6 10.0-20.0 [facility]2018-03-27 11:15:00 Test Item Value Reference Range Interpretation Comments Total Protein (test code = Total 7.2 6.4-8.4 Protein) [facility]2018-03-27 11:15:00 Test Item Value Reference Range Interpretation Comments Alk Phos (test code = Alk Phos) 56 39-136 [facility]2018-03-27 11:15:00 Test Item Value Reference Range Interpretation Comments Bili Total (test code = Bili Total) 0.2 0.2-1.3 [facility]2018-03-27 11:15:00 Test Item Value Reference Range Interpretation Comments Potassium Lvl (test code = Potassium 3.6 3.5-5.1 Lvl) [facility]2018-03-27 11:15:00 Test Item Value Reference Range Interpretation Comments Sodium Lvl (test code = Sodium Lvl) 139 135-145 [facility]2018-03-27 11:15:00 Test Item Value Reference Range Interpretation Comments Calcium Lvl (test code = Calcium Lvl) 8.9 8.5-10.5 [facility]2018-03-27 11:15:00 Test Item Value Reference Range Interpretation Comments Chloride Lvl (test code = Chloride Lvl) 105 95-109 [facility]2018-03-27 11:15:00 Test Item Value Reference Range Interpretation Comments eGFR (test code = eGFR) 107 [facility]2018-03-27 11:15:00 Test Item Value Reference Range Interpretation Comments ALT (test code = ALT) 24 See_Comment [Auto mated message] The system which ge nerated this result transmit ann marie reference range : <=65. The reference range was not used to interpr et this result as juan l/abnormal. [place] [id number] 11:15:00 Test Item Value Reference Range Interpretation Comments AST (test code = AST) 20 See_Comment [Auto mated message] The system which ge nerated this result transmit ann marie reference range : <=37. The reference range was not used to interpr et this result as juan l/abnormal. [facility]2018-03-27 11:15:00 Test Item Value Reference Range Interpretation Comments CO2 (test code = CO2) 24 24-32 [facility]2018-03-27 11:15:00 Test Item Value Reference Range Interpretation Comments Albumin Lvl (test code = Albumin Lvl) 3.7 3.5-5.0 [facility]2018-03-27 11:15:00 Test Item Value Reference Range Interpretation Comments Creatinine Lvl (test code = Creatinine 0.63 0.50-1.40 Lvl) [facility]2018-03-27 11:15:00 Test Item Value Reference Range Interpretation Comments BUN (test code = BUN) 8 7-22 [facility]2018-03-27 11:15:00 Test Item Value Reference Range Interpretation Comments Glucose Lvl (test code = Glucose Lvl) 107 70-99 [place] [id number] 11:15:00 Test Item Value Reference Range Interpretation Comments S Preg (test code = S Negative *NA*(06/28/17 Preg) 6:15 AM) [facility] CenterRarvznaTLNFORMZVC5147-64-10 11:15:00 Test Item Value Reference Range Interpretation Comments RDW (test code = RDW) 15.4 11.5-14.5 [facility] [id number] 11:15:00 Test Item Value Reference Range Interpretation Comments MPV (test code = MPV) 7.7 7.4-10.4 [place] 331408-03-27 11:15:00 Test Item Value Reference Range Interpretation Comments Platelet (test code = Platelet) 355 133-450 [facility] C[id number] 11:15:00 Test Item Value Reference Range Interpretation Comments MCV (test code = MCV) 87.1 80.0-98.0 [facility] Cent[id number] 11:15:00 Test Item Value Reference Range Interpretation Comments Hct (test code = Hct) 37.9 36.0-48.0 [facility] CenterCtoxeukFFLIYSZIKO5111-15-36 11:15:00 Test Item Value Reference Range Interpretation Comments MCHC (test code = MCHC) 33.3 32.0-36.0 [facility] Cent[id number] 11:15:00 Test Item Value Reference Range Interpretation Comments MCH (test code = MCH) 29.0 pg 27.0-31.0 [facility] C[id number] 11:15:00 Test Item Value Reference Range Interpretation Comments Hgb (test code = Hgb) 12.6 12.0-16.0 [facility] Cent[id number] 11:15:00 Test Item Value Reference Range Interpretation Comments RBC (test code = RBC) 4.35 4.20-5.40 [facility] Cent[id number] 11:15:00 Test Item Value Reference Range Interpretation Comments WBC (test code = WBC) 10.7 3.7-10.4 [facility] Cent[id number] 11:15:00 Test Item Value Reference Range Interpretation Comments Monocytes # (test code 0.8 See_Comment [Aut omated message] The = Monocytes #) system which generated this result tra nsmitted reference range : <=0.8. The reference r corazon was not used to int erpret this result as normal/abnormal . [facility] Cent[id number] 11:15:00 Test Item Value Reference Range Interpretation Comments Eosinophils # (test code 0.2 See_Comment [A utomated message] The = Eosinophils #) system whic h generated this result tra nsmitted reference range : <=0.5. The reference r corazon was not used to int erpret this result as normal/abnormal . [facility] CenterFezrlwqKONXQGKTVP0352-09-75 11:15:00 Test Item Value Reference Range Interpretation Comments Segs (test code = Segs) 72.1 45.0-75.0 [facility] CenterEtxgsetGODXPBEPRT2077-00-18 11:15:00 Test Item Value Reference Range Interpretation Comments Segs-Bands # (test code = Segs-Bands #) 7.7 1.5-8.1 [facility] CenterLrcavcbIBSNXUYTUE5301-14-30 11:15:00 Test Item Value Reference Range Interpretation Comments Lymphocytes # (test code = Lymphocytes 2.0 1.0-5.5 #) [facility] CenterVchaaveVZOTTRQVML6376-10-39 11:15:00 Test Item Value Reference Range Interpretation Comments Basophils (test code = 0.4 See_Comment [Aut omated message] The Basophils) system which ge nerated this result tra nsmitted reference range : <=1.0. The reference r corazon was not used to int erpret this result as normal/abnormal . [facility] Cent[id number] 11:15:00 Test Item Value Reference Range Interpretation Comments Monocytes (test code = Monocytes) 7.2 2.0-12.0 [facility] Cent[id number] 11:15:00 Test Item Value Reference Range Interpretation Comments Eosinophils (test code = 1.7 See_Comment [A utomated message] The Eosinophils) system which ge nerated this result tra nsmitted reference range : <=4.0. The reference r corazon was not used to int erpret this result as normal/abnormal . [facility] [id number] 11:15:00 Test Item Value Reference Range Interpretation Comments Lymphocytes (test code = Lymphocytes) 18.6 20.0-40.0 [facility] AND [id number] 11:15:00 Test Item Value Reference Range Interpretation Comments UA Color (test code = Colorless *NA*(06/28/17 UA Color) 6:15 AM) [facility] AND [id number] 11:15:00 Test Item Value Reference Range Interpretation Comments UA Spec Grav (test code = UA Spec 1.002 1 Grav) [facility] AND [id number] 11:15:00 Test Item Value Reference Range Interpretation Comments UA Turbidity (test code = Clear (06/28/17 6:15 UA Turbidity) AM) [facility] AND [id number] 11:15:00 Test Item Value Reference Range Interpretation Comments UA pH (test code = UA pH) 6.0 1 5.0-8.0 [facility] AND [id number] 11:15:00 Test Item Value Reference Range Interpretation Comments UA Glucose (test code = UA Negative mg/dL Glucose) [facility] AND [id number] 11:15:00 Test Item Value Reference Range Interpretation Comments UA Protein (test code = UA Negative mg/dL Protein) [facility] AND [id number] 11:15:00 Test Item Value Reference Range Interpretation Comments UA Blood (test code = Moderate *ABN*(06/28/17 UA Blood) 6:15 AM) [facility] AND [id number] 11:15:00 Test Item Value Reference Range Interpretation Comments UA Bili (test code = Negative *NA*(06/28/17 UA Bili) 6:15 AM) [facility] AND [id number] 11:15:00 Test Item Value Reference Range Interpretation Comments UA Nitrite (test code Negative (06/28/17 6:15 = UA Nitrite) AM) [facility] AND [id number] 11:15:00 Test Item Value Reference Range Interpretation Comments UA Hyal Cast (test 1 See_Comment [Automat ed message] The code = UA Hyal Cast) system which generated this result transmit ann marie reference range : <=2. The reference range was not used to interpr et this result as juan l/abnormal. [facility] AND [id number] 11:15:00 Test Item Value Reference Range Interpretation Comments UA Mucus (test code = UA Mucus) Few /LPF [facility] AND [id number] 11:15:00 Test Item Value Reference Range Interpretation Comments UA Urobilinogen (test code = UA <=1.0 mg/dL 0.1-1.0 Urobilinogen) [facility] AND [id number] 11:15:00 Test Item Value Reference Range Interpretation Comments UA Ketones (test code = UA Ketones) Negative [facility] AND [id number] 11:15:00 Test Item Value Reference Range Interpretation Comments UA Bacteria (test code = UA Occasional /HPF Bacteria) [facility] AND [id number] 11:15:00 Test Item Value Reference Range Interpretation Comments UA Sq Epi (test code = UA Sq Occasional /LPF Epi) [facility] AND [id number] 11:15:00 Test Item Value Reference Range Interpretation Comments UA Leuk Est (test Negative (06/28/17 6:15 code = UA Leuk Est) AM) [facility] AND [id number] 11:15:00 Test Item Value Reference Range Interpretation Comments UA RBC (test code = 2 See_Comment [Automa ann marie message] The UA RBC) system which ge nerated this result transmit ann marie reference range : <=2. The reference range was not used to interpr et this result as juan l/abnormal. [facility] AND [id number] 11:15:00 Test Item Value Reference Range Interpretation Comments UA WBC (test code = 1 See_Comment [Automa ann marie message] The UA WBC) system which ge nerated this result transmit ann marie reference range : <=5. The reference range was not used to interpr et this result as juan l/abnormal. [facility]2018-03-27 11:15:00 Test Item Value Reference Range Interpretation Comments Lipase Lvl (test code = Lipase Lvl) 172 73-393 [facility]2018-03-27 11:15:00 Test Item Value Reference Range Interpretation Comments Globulin (test code = Globulin) 3.5 2.7-4.2 [facility]2018-03-27 11:15:00 Test Item Value Reference Range Interpretation Comments A/G Ratio (test code = A/G Ratio) 1.1 1 0.7-1.6 [facility]2018-03-27 11:15:00 Test Item Value Reference Range Interpretation Comments B/C Ratio (test code = B/C Ratio) 13 1 6-25 [facility]2018-03-27 11:15:00 Test Item Value Reference Range Interpretation Comments AGAP (test code = AGAP) 13.6 10.0-20.0 [facility]2018-03-27 11:15:00 Test Item Value Reference Range Interpretation Comments Total Protein (test code = Total 7.2 6.4-8.4 Protein) [facility]2018-03-27 11:15:00 Test Item Value Reference Range Interpretation Comments Alk Phos (test code = Alk Phos) 56 39-136 [facility]2018-03-27 11:15:00 Test Item Value Reference Range Interpretation Comments Bili Total (test code = Bili Total) 0.2 0.2-1.3 [facility]2018-03-27 11:15:00 Test Item Value Reference Range Interpretation Comments Potassium Lvl (test code = Potassium 3.6 3.5-5.1 Lvl) [facility]2018-03-27 11:15:00 Test Item Value Reference Range Interpretation Comments Sodium Lvl (test code = Sodium Lvl) 139 135-145 [facility]2018-03-27 11:15:00 Test Item Value Reference Range Interpretation Comments Calcium Lvl (test code = Calcium Lvl) 8.9 8.5-10.5 [facility]2018-03-27 11:15:00 Test Item Value Reference Range Interpretation Comments Chloride Lvl (test code = Chloride Lvl) 105 95-109 [facility]2018-03-27 11:15:00 Test Item Value Reference Range Interpretation Comments eGFR (test code = eGFR) 107 [facility]2018-03-27 11:15:00 Test Item Value Reference Range Interpretation Comments ALT (test code = ALT) 24 See_Comment [Auto mated message] The system which ge nerated this result transmit ann marie reference range : <=65. The reference range was not used to interpr et this result as juan l/abnormal. [facility]2018-03-27 11:15:00 Test Item Value Reference Range Interpretation Comments AST (test code = AST) 20 See_Comment [Auto mated message] The system which ge nerated this result transmit ann marie reference range : <=37. The reference range was not used to interpr et this result as juan l/abnormal. [facility]2018-03-27 11:15:00 Test Item Value Reference Range Interpretation Comments CO2 (test code = CO2) 24 24-32 [facility]2018-03-27 11:15:00 Test Item Value Reference Range Interpretation Comments Albumin Lvl (test code = Albumin Lvl) 3.7 3.5-5.0 [facility]2018-03-27 11:15:00 Test Item Value Reference Range Interpretation Comments Creatinine Lvl (test code = Creatinine 0.63 0.50-1.40 Lvl) [facility]2018-03-27 11:15:00 Test Item Value Reference Range Interpretation Comments BUN (test code = BUN) 8 7-22 [facility]2018-03-27 11:15:00 Test Item Value Reference Range Interpretation Comments Glucose Lvl (test code = Glucose Lvl) 107 70-99 [place] [id number] 11:15:00 Test Item Value Reference Range Interpretation Comments S Preg (test code = S Negative *NA*(06/28/17 Preg) 6:15 AM) [facility] [id number] 11:15:00 Test Item Value Reference Range Interpretation Comments RDW (test code = RDW) 15.4 11.5-14.5 [facility] [id number] 11:15:00 Test Item Value Reference Range Interpretation Comments MPV (test code = MPV) 7.7 7.4-10.4 [facility] [id number] 11:15:00 Test Item Value Reference Range Interpretation Comments Platelet (test code = Platelet) 355 133-450 [facility] [id number] 11:15:00 Test Item Value Reference Range Interpretation Comments MCV (test code = MCV) 87.1 80.0-98.0 [facility] [id number] 11:15:00 Test Item Value Reference Range Interpretation Comments Hct (test code = Hct) 37.9 36.0-48.0 [facility] [id number] 11:15:00 Test Item Value Reference Range Interpretation Comments MCHC (test code = MCHC) 33.3 32.0-36.0 [facility] [id number] 11:15:00 Test Item Value Reference Range Interpretation Comments MCH (test code = MCH) 29.0 pg 27.0-31.0 [facility] [id number] 11:15:00 Test Item Value Reference Range Interpretation Comments Hgb (test code = Hgb) 12.6 12.0-16.0 [facility] [id number] 11:15:00 Test Item Value Reference Range Interpretation Comments RBC (test code = RBC) 4.35 4.20-5.40 [facility] [id number] 11:15:00 Test Item Value Reference Range Interpretation Comments WBC (test code = WBC) 10.7 3.7-10.4 [facility] [id number] 11:15:00 Test Item Value Reference Range Interpretation Comments Monocytes # (test code 0.8 See_Comment [Aut omated message] The = Monocytes #) system which generated this result tra nsmitted reference range : <=0.8. The reference r corazon was not used to int erpret this result as normal/abnormal . [facility] [id number] 11:15:00 Test Item Value Reference Range Interpretation Comments Eosinophils # (test code 0.2 See_Comment [A utomated message] The = Eosinophils #) system whic h generated this result tra nsmitted reference range : <=0.5. The reference r corazon was not used to int erpret this result as normal/abnormal . [facility] [id number] 11:15:00 Test Item Value Reference Range Interpretation Comments Segs (test code = Segs) 72.1 45.0-75.0 [facility] [id number] 11:15:00 Test Item Value Reference Range Interpretation Comments Segs-Bands # (test code = Segs-Bands #) 7.7 1.5-8.1 [facility] [id number] 11:15:00 Test Item Value Reference Range Interpretation Comments Lymphocytes # (test code = Lymphocytes 2.0 1.0-5.5 #) [facility] [id number] 11:15:00 Test Item Value Reference Range Interpretation Comments Basophils (test code = 0.4 See_Comment [Aut omated message] The Basophils) system which ge nerated this result tra nsmitted reference range : <=1.0. The reference r corazon was not used to int erpret this result as normal/abnormal . [facility] [id number] 11:15:00 Test Item Value Reference Range Interpretation Comments Monocytes (test code = Monocytes) 7.2 2.0-12.0 [facility] [id number] 11:15:00 Test Item Value Reference Range Interpretation Comments Eosinophils (test code = 1.7 See_Comment [A utomated message] The Eosinophils) system which ge nerated this result tra nsmitted reference range : <=4.0. The reference r corazon was not used to int erpret this result as normal/abnormal . [id number] 11:15:00 Test Item Value Reference Range Interpretation Comments Lymphocytes (test code = Lymphocytes) 18.6 20.0-40.0 [facility] AND [id number] 11:15:00 Test Item Value Reference Range Interpretation Comments UA Color (test code = Colorless *NA*(06/28/17 UA Color) 6:15 AM) [facility] AND [id number] 11:15:00 Test Item Value Reference Range Interpretation Comments UA Spec Grav (test code = UA Spec 1.002 1 Grav) [facility] AND [id number] 11:15:00 Test Item Value Reference Range Interpretation Comments UA Turbidity (test code = Clear (06/28/17 6:15 UA Turbidity) AM) [facility] AND [id number] 11:15:00 Test Item Value Reference Range Interpretation Comments UA pH (test code = UA pH) 6.0 1 5.0-8.0 [facility] AND [id number] 11:15:00 Test Item Value Reference Range Interpretation Comments UA Glucose (test code = UA Negative mg/dL Glucose) [facility] AND [id number] 11:15:00 Test Item Value Reference Range Interpretation Comments UA Protein (test code = UA Negative mg/dL Protein) [facility] AND [id number] 11:15:00 Test Item Value Reference Range Interpretation Comments UA Blood (test code = Moderate *ABN*(06/28/17 UA Blood) 6:15 AM) [facility] AND [id number] 11:15:00 Test Item Value Reference Range Interpretation Comments UA Bili (test code = Negative *NA*(06/28/17 UA Bili) 6:15 AM) [facility] AND [id number] 11:15:00 Test Item Value Reference Range Interpretation Comments UA Nitrite (test code Negative (06/28/17 6:15 = UA Nitrite) AM) [facility] AND [id number] 11:15:00 Test Item Value Reference Range Interpretation Comments UA Hyal Cast (test 1 See_Comment [Automat ed message] The code = UA Hyal Cast) system which generated this result transmit ann marie reference range : <=2. The reference range was not used to interpr et this result as juan l/abnormal. [facility] AND [id number] 11:15:00 Test Item Value Reference Range Interpretation Comments UA Mucus (test code = UA Mucus) Few /LPF [facility] AND [id number] 11:15:00 Test Item Value Reference Range Interpretation Comments UA Urobilinogen (test code = UA <=1.0 mg/dL 0.1-1.0 Urobilinogen) [facility] AND [id number] 11:15:00 Test Item Value Reference Range Interpretation Comments UA Ketones (test code = UA Ketones) Negative [facility] AND [id number] 11:15:00 Test Item Value Reference Range Interpretation Comments UA Bacteria (test code = UA Occasional /HPF Bacteria) [facility] AND [id number] 11:15:00 Test Item Value Reference Range Interpretation Comments UA Sq Epi (test code = UA Sq Occasional /LPF Epi) [facility] AND [id number] 11:15:00 Test Item Value Reference Range Interpretation Comments UA Leuk Est (test Negative (06/28/17 6:15 code = UA Leuk Est) AM) [facility] AND [id number] 11:15:00 Test Item Value Reference Range Interpretation Comments UA RBC (test code = 2 See_Comment [Automa ann marie message] The UA RBC) system which ge nerated this result transmit ann marie reference range : <=2. The reference range was not used to interpr et this result as juan l/abnormal. [facility] AND [id number] 11:15:00 Test Item Value Reference Range Interpretation Comments UA WBC (test code = 1 See_Comment [Automa ann marie message] The UA WBC) system which ge nerated this result transmit ann marie reference range : <=5. The reference range was not used to interpr et this result as juan l/abnormal. [facility]
[2022-04-01] MEDS ORDERED: KETOROLAC 30 MG/ML INJ ONE (01:16)
--- NOTE | 2022-04-01 01:18 | ER ---
Nurse's Notes [facility] Name: Dayami Espinosa Age: 52 yrs Sex: Female : 1970 Arrival Date: 03/31/2022 Time: 23:37 Bed 11 Private MD: Diagnosis: Pain in right leg Presentation: 03/31 23:54 Chief complaint: Patient states: she is having right ankle pain shooting up her knee bb and thigh the pain has been "going on for a while but got worse tonight". Coronavirus screen: At this time, the client does not indicate any symptoms associated with coronavirus-19. Ebola Screen: No symptoms or risks identified at this time. Initial Sepsis Screen: Does the patient meet any 2 criteria? No. Patient's initial sepsis screen is negative. Does the patient have a suspected source of infection? No. Patient's initial sepsis screen is negative. Risk Assessment: Do you want to hurt yourself or someone else? Patient reports no desire to harm self or others. Onset of symptoms is unknown. 23:54 Method Of Arrival: Ambulatory bb 23:54 Acuity: JAZMIN 4 bb Triage Assessment: 23:55 General: Appears in no apparent distress. uncomfortable, Behavior is cooperative. Pain: bb Complains of pain in right ankle Pain currently is 10 out of 10 on a pain scale. Neuro: Level of Consciousness is awake, alert, obeys commands, Oriented to person, place, time, situation. Cardiovascular: Capillary refill < 3 seconds Patient's skin is warm and dry. Respiratory: Respiratory effort is even, unlabored, Respiratory pattern is regular. GI: No signs and/or symptoms were reported involving the gastrointestinal system. Derm: Skin is pink, warm \\T\\ dry. Musculoskeletal: Circulation, motion, and sensation intact. Reports pain in right ankle. 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 - Social history:: Smoking status: Patient reports the use of cigarette tobacco products. Screenin/29 01:22 [facility] ED Fall Risk Assessment (Adult) History of falling in the last 3 months, tw5 including since admission Yes- single mechanical fall (1 pt). Abuse screen: Denies threats or abuse. Denies injuries from another. Nutritional screening: No deficits noted. Tuberculosis screening: No symptoms or risk factors identified. Assessment: 01:22 General: Appears in no apparent distress. Behavior is agitated, Reports "I have been tw5 having pain shooting up to my thigh. The pain.". Neuro: Level of Consciousness is awake, alert, obeys commands, Oriented to person, place, time, situation. Vital Signs: 03/31 23:54 BP 137 / 73; Pulse 83; Resp 16 S; Temp 98.2(O); Pulse Ox 98% on R/A; Weight 51.71 kg bb (R); Height 5 ft. 3 in. (160.02 cm) (R); Pain 10/10; 23:54 Body Mass Index 20.19 (51.71 kg, 160.02 cm) bb ED Course: 23:37 Patient arrived in ED. es 23:55 Triage completed. bb 23:55 Arm band placed on Patient placed in waiting room, Patient notified of wait time. bb 04/01 00:51 Guy Gomez MD is Attending Physician. sp3 01:13 Lauren Leonardo is Primary Nurse. tw5 01:17 Kev Boston MD is Referral Physician. sp3 01:22 Patient has correct armband on for positive identification. Bed in low position. Call tw5 light in reach. 01:22 No provider procedures requiring assistance completed. Patient did not have IV access tw5 during this emergency room visit. Administered Medications: :22 Drug: Ketorolac 30 mg Route: IM; Site: right ventrogluteal; tw5 01:59 Follow up: Response: No adverse reaction tw5 Medication: 01:22 VIS not applicable for this client. tw5 Outcome: 01:17 Discharge ordered by . sp3 01:22 Discharged to home ambulatory. tw5 01:22 Condition: stable 01:22 Discharge instructions given to patient, Instructed on discharge instructions, follow up and referral plans. Demonstrated understanding of instructions, follow-up care. 01:59 Patient left the ED. tw5 Signatures: Jessie Jett Brenda, RN RN bb Guy Gomez MD MD sp3 Lauren Leonardo tw5
--- NOTE | 2022-04-01 01:18 | EDPHYS ---
Physician Documentation [facility] Name: Dayami Espinosa Age: 52 yrs Sex: Female : 1970 Arrival Date: 03/31/2022 Time: 23:37 Bed 11 Private MD: ED Physician Guy Gomez HPI: 04/01 01:13 This 52 yrs old Female presents to ER via Ambulatory with complaints of Leg Pain. sp3 01:13 52-year-old female with a history of bipolar disease, gastritis, chronic arthritis sp3 including right hip pain, right knee pain presents to the ED with chief complaint right knee and ankle pain that is chronic in nature. She states that she has been taking Aleve at home which has not helped. She does not have an orthopedist. She denies any travel history, prolonged immobilization, known sick contacts, fever, other joint pain, headache, chest pain, shortness of breath, abdominal pain, nausea, vomiting, diarrhea, or any other symptoms at this time. She is able to ambulate and walk into the ED earlier today.. [employer]ACTITIONER: 03/31 23:55 LMP N/A - bb Historical: - Allergies: 23:55 Amoxicillin; bb 23:55 Pseudoephedrine; bb - Home Meds: 23:55 "Dizzy Pills" [Active]; Aleve Oral [Active]; Depakote 250 mg Oral chew 1 tab 2 times bb per day for Bipolar Disorder in Remission [Active]; - PMHx: 23:55 Anemia; Bipolar disorder; gastritis; Ovarian cyst; bb - PSHx: 23:55 brain surgery; bb - Immunization history:: Client reports having NOT received the Covid vaccine. - Social history:: Smoking status: Patient reports the use of cigarette tobacco products. ROS: 04/01 01:14 Constitutional: Negative for fever, chills, and weight loss, Eyes: Negative for injury, sp3 pain, redness, and discharge, ENT: Negative for injury, pain, and discharge, Neck: Negative for injury, pain, and swelling, Cardiovascular: Negative for chest pain, palpitations, and edema, Respiratory: Negative for shortness of breath, cough, wheezing, and pleuritic chest pain, Abdomen/GI: Negative for abdominal pain, nausea, vomiting, diarrhea, and constipation, Back: Negative for injury and pain, Skin: Negative for injury, rash, and discoloration, Neuro: Negative for headache, weakness, numbness, tingling, and seizure, Psych: Negative for depression, anxiety, suicide ideation, homicidal ideation, and hallucinations, Allergy/Immunology: Negative for hives, rash, and allergies, Endocrine: Negative for neck swelling, polydipsia, polyuria, polyphagia, and marked weight changes. All other systems are negative. Exam: 01:14 Constitutional: This is a well developed, well nourished patient who is awake, alert, sp3 and in no acute distress. Head/Face: Normocephalic, atraumatic. Eyes: Pupils equal round and reactive to light, extra-ocular motions intact. Lids and lashes normal. Conjunctiva and sclera are non-icteric and not injected. Cornea within normal limits. Periorbital areas with no swelling, redness, or edema. Neck: Trachea midline, no thyromegaly or masses palpated, and no cervical lymphadenopathy. Supple, full range of motion without nuchal rigidity, or vertebral point tenderness. No Meningismus. Chest/axilla: Normal chest wall appearance and motion. Nontender with no deformity. No lesions are appreciated. Cardiovascular: Regular rate and rhythm with a normal S1 and S2. No gallops, murmurs, or rubs. Normal PMI, no JVD. No pulse deficits. Respiratory: Lungs have equal breath sounds bilaterally, clear to auscultation and percussion. No rales, rhonchi or wheezes noted. No increased work of breathing, no retractions or nasal flaring. Abdomen/GI: Soft, non-tender, with normal bowel sounds. No distension or tympany. No guarding or rebound. No evidence of tenderness throughout. Skin: Warm, dry with normal turgor. Normal color with no rashes, no lesions, and no evidence of cellulitis. Neuro: Awake and alert, GCS 15, oriented to person, place, time, and situation. Cranial nerves II-XII grossly intact. Motor strength 5/5 in all extremities. Sensory grossly intact. Cerebellar exam normal. Normal gait. Psych: Awake, alert, with orientation to person, place and time. Behavior, mood, and affect are within normal limits. 01:14 Musculoskeletal/extremity: Normal joint exams of the knee and ankle. No swelling noted. Full range of motion is intact. Patient was sleeping I arrived and barely woke up for the exam. She is in no pain on articulation of the joint. No pain on axial load. Again patient is ambulatory. No rash noted. No peripheral edema or pain in the calf.. Vital Signs: 03/31 23:54 BP 137 / 73; Pulse 83; Resp 16 S; Temp 98.2(O); Pulse Ox 98% on R/A; Weight 51.71 kg bb (R); Height 5 ft. 3 in. (160.02 cm) (R); Pain 10/10; 23:54 Body Mass Index 20.19 (51.71 kg, 160.02 cm) bb MDM: 04/01 01:12 Patient medically screened. sp3 01:15 Data reviewed: vital signs, nurses notes. ED course: 52-year-old female with right leg sp3 pain including the knee and ankle. I believe this is her chronic arthritis and clinically have ruled out DVT, cellulitis, knee effusion, joint effusion, sepsis, shock, or any other critical findings at this time. We will give ketorolac 30 mg IM and discharge patient home to orthopedic follow-up if patient is compliant for that visit.. Administered Medications: : Drug: Ketorolac 30 mg Route: IM; Site: right ventrogluteal; tw5 01:59 Follow up: Response: No adverse reaction tw5 Disposition Summary: 04/01/22 01:17 Discharge Ordered Location: Home sp3 Condition: Stable sp3 Diagnosis - Pain in right leg sp3 Followup: sp3 - With: Kev Boston MD - When: Upon discharge from the Emergency Department - Reason: Recheck today's complaints Discharge Instructions: - Discharge Summary Sheet sp3 - Musculoskeletal Pain sp3 Forms: - Medication Reconciliation Form sp3 - Thank You Letter sp3 - Antibiotic Education sp3 - Prescription Opioid Use sp3 Signatures: Belen Estrada RN RN bb Guy Gomez MD MD sp3 Lauren Leonardo tw5
[2022-04-01 02:10] VITALS: BP 137/73; TEMP 98.2; O2SAT 98
== END 2022-04-01 01:59 | disposition home or self-care (01) ==
LOC: ER 23:29
DX: M79.604 Pain in right leg (principal)
CPT/HCPCS: 96372; 99283

== ENCOUNTER 2022-11-10 01:28 | Emergency (ER) | payer SELFPAY ==
--- OUTSIDE RECORDS SUMMARY | 2022-11-10 01:40 | XMS REPORT | Continuity of Care Document ---
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 Respiratory rate 2021-02-20 05:16:00 18 /min [facility] Body weight 2021-02-20 05:16:00 46.72 kg [facility] BMI 2021-02-20 05:16:00 18.25 kg/m2 [facility] Oxygen saturation in 2021-02-20 05:16:00 97 /min [facility] [place] [facility] Pulse oxim[facility] Systolic blood [...] 2021-01-12 08:29:00 18 /min [facility] Oxygen saturation in 2021-01-12 08:29:00 98 /min [facility] [place] [employer] [facility] Pulse oximetry Branch Body weight 2021-01-12 08:26:00 46.72 kg [facility] BMI 2021-01-12 08:26:00 18.25 kg/m2 [facility] Systolic blood 2021-01-12 00:20:00 132 mm[Hg] [facility] Diastolic blood 2021-01-12 00:20:00 80 mm[Hg] [facility] Heart rate 2021-01-12 00:20:00 99 /min [facility] Respiratory rate 2021-01-12 00:20:00 18 /min [facility] Body weight 2021-01-12 00:20:00 46.72 kg [facility] BMI 2021-01-12 00:20:00 18.25 kg/m2 [facility] Oxygen saturation in 2021-01-12 00:20:00 100 /min [facility] [place] [employer] [facility] Pulse oximetry Branch Systolic blood 2020-12-17 05:54:00 104 mm[Hg] [facility] Diastolic blood 2020-12-17 05:54:00 70 mm[Hg] [facility] Heart rate 2020-12-17 05:54:00 87 /min [facility] Body temperature 2020-12-17 05:54:00 36.5 Nakia [facility] Respiratory rate 2020-12-17 05:54:00 20 /min [facility] Body height 2020-12-17 05:54:00 160 cm [facility] Body weight 2020-12-17 05:54:00 46.72 kg [facility] BMI 2020-12-17 05:54:00 18.25 kg/m2 [facility] Oxygen saturation in 2020-12-17 05:54:00 99 /min [facility] [place] [employer] [facility] Pulse oximetry Branch Systolic blood 2020-11-07 11:40:00 105 mm[Hg] [facility] Diastolic blood 2020-11-07 11:40:00 63 mm[Hg] [facility] Heart rate 2020-11-07 11:40:00 73 /min [facility] Respiratory rate 2020-11-07 11:40:00 15 /min [facility] Oxygen saturation in 2020-11-07 11:40:00 99 /min [facility] Arterial blood by [facility] Pulse oximetry Branch Body temperature 2020-11-07 08:50:00 37.33 Nakia [facility] Body height 2020-11-07 08:50:00 160 cm [facility] Body weight 2020-11-07 08:50:00 46.72 kg [facility] BMI 2020-11-07 08:50:00 18.25 kg/m2 [facility] Systolic blood 2020-11-07 11:40:00 105 mm[Hg] [facility] Diastolic blood 2020-11-07 11:40:00 63 mm[Hg] [facility] Heart rate 2020-11-07 11:40:00 73 /min [facility] Respiratory rate 2020-11-07 11:40:00 15 /min [facility] Oxygen saturation in 2020-11-07 11:40:00 99 /min [facility] Arterial blood by [facility] Pulse oximetry Branch Body temperature 2020-11-07 08:50:00 37.33 Nakia [facility] Body height 2020-11-07 08:50:00 160 cm [facility] Body weight 2020-11-07 08:50:00 46.72 kg [facility] BMI 2020-11-07 08:50:00 18.25 kg/m2 [facility] Systolic blood 2020-09-28 03:54:00 145 mm[Hg] [facility] Diastolic blood 2020-09-28 03:54:00 70 mm[Hg] [facility] Heart rate 2020-09-28 03:54:00 87 /min [facility] Body temperature 2020-09-28 03:54:00 36.44 Nakia [facility] Respiratory rate 2020-09-28 03:54:00 16 /min [facility] Body height 2020-09-28 03:54:00 160 cm [facility] Body weight 2020-09-28 03:54:00 48.081 kg [facility] BMI 2020-09-28 03:54:00 18.78 kg/m2 [facility] Oxygen saturation in 2020-09-28 03:54:00 100 /min [facility] [place] [employer] [facility] Pulse oximetry Branch Systolic blood 2020-09-28 03:54:00 145 mm[Hg] [facility] Diastolic blood 2020-09-28 03:54:00 70 mm[Hg] [facility] Heart rate 2020-09-28 03:54:00 87 /min [facility] Body temperature 2020-09-28 03:54:00 36.44 Nakia [facility] Respiratory rate 2020-09-28 03:54:00 16 /min [facility] Body height 2020-09-28 03:54:00 160 cm [facility] Body weight 2020-09-28 03:54:00 48.081 kg [facility] BMI 2020-09-28 03:54:00 18.78 kg/m2 [facility] Oxygen saturation in 2020-09-28 03:54:00 100 /min [facility] [place] [employer] [facility] Pulse oximetry Branch Systolic blood 2020-09-24 05:34:00 121 mm[Hg] [facility] Diastolic blood 2020-09-24 05:34:00 73 mm[Hg] [facility] Heart rate 2020-09-24 05:34:00 75 /min [facility] Body temperature 2020-09-24 05:34:00 36.94 Nakia [facility] Respiratory rate 2020-09-24 05:34:00 18 /min [facility] Body height 2020-09-24 05:34:00 160 cm [facility] Body weight 2020-09-24 05:34:00 48.081 kg [facility] BMI 2020-09-24 05:34:00 18.78 kg/m2 [facility] Oxygen saturation in 2020-09-24 05:34:00 100 /min [facility] [place] [employer] [facility] Pulse oximetry Branch Systolic blood 2020-09-24 05:34:00 121 mm[Hg] [facility] Diastolic blood 2020-09-24 05:34:00 73 mm[Hg] [facility] Heart rate 2020-09-24 05:34:00 75 /min [facility] Body temperature 2020-09-24 05:34:00 36.94 Nakia [facility] Respiratory rate 2020-09-24 05:34:00 18 /min [facility] Body height 2020-09-24 05:34:00 160 cm [facility] Body weight 2020-09-24 05:34:00 48.081 kg [facility] BMI 2020-09-24 05:34:00 18.78 kg/m2 [facility] Oxygen saturation in 2020-09-24 05:34:00 100 /min [facility] [place] [employer] [facility] Pulse oximetry Branch Systolic blood 2018-11-26 08:35:00 136 mm[Hg] [facility] Diastolic blood 2018-11-26 08:35:00 61 mm[Hg] [facility] Heart rate 2018-11-26 08:35:00 84 /min [facility] Body temperature 2018-11-26 08:35:00 36.94 Nakia [facility] Respiratory rate 2018-11-26 08:35:00 18 /min [facility] Body weight 2018-11-26 08:35:00 48.081 kg [facility] BMI 2018-11-26 08:35:00 18.78 kg/m2 [facility] Oxygen saturation in 2018-11-26 08:35:00 99 /min [facility] [place] [facility] Pulse oximetry Branch Systolic blood 2018-11-26 08:35:00 136 mm[Hg] [facility] Diastolic blood 2018-11-26 08:35:00 61 mm[Hg] [facility] Heart rate 2018-11-26 08:35:00 84 /min [facility] Body temperature 2018-11-26 08:35:00 36.94 Nakia [facility] Respiratory rate 2018-11-26 08:35:00 18 /min [facility] Body weight 2018-11-26 08:35:00 48.081 kg [facility] BMI 2018-11-26 08:35:00 18.78 kg/m2 [facility] Oxygen saturation in 2018-11-26 08:35:00 99 /min [facility] Arterial blood by [facility] Pulse oximetry Branch Systolic blood 2018-11-04 06:38:00 119 mm[Hg] [facility] Diastolic blood 2018-11-04 06:38:00 73 mm[Hg] [facility] Heart rate 2018-11-04 06:38:00 89 /min [facility] Body temperature 2018-11-04 06:38:00 36.67 Nakia [facility] Respiratory rate 2018-11-04 06:38:00 20 /min [facility] Body height 2018-11-04 06:38:00 160 cm [facility] Body weight 2018-11-04 06:38:00 47.628 kg [facility] BMI 2018-11-04 06:38:00 18.60 kg/m2 [facility] Oxygen saturation in 2018-11-04 06:38:00 100 /min [facility] Arterial blood by [facility] richard Pulse oximetry Branch Systolic blood 2018-11-04 06:38:00 119 mm[Hg] [facility] Diastolic blood 2018-11-04 06:38:00 73 mm[Hg] Unive rsity of pressure [facility] Heart rate 2018-11-04 06:38:00 89 /min [facility] Body temperature 2018-11-04 06:38:00 36.67 [facility] Res[facility] rate 2018-11-04 06:38:00 20 /min [facility] Body height 2018-11-04 06:38:00 160 cm [facility] Body weight 2018-11-04 06:38:00 47.628 kg [facility] BMI 2018-11-04 06:38:00 18.60 kg/m2 [facility] Oxygen saturation in 2018-11-04 06:38:00 100 /min [facility] Arterial blood by [facility] Pulse oximetry Branch Temperature Oral (F) 2018-04-14 19:01:00 98.2 F [facility] Systolic (mm Hg) 2018-04-14 16:00:00 Wagner [facility] [place] Diastolic (mm Hg) 2018-04-14 16:00:00 Mem [facility] [place] Respitory Rate 2018-04-14 16:00:00 Memori [facility] [place] Systolic (mm Hg) 2018-04-14 15:00:00 Wagner [facility] [place] Diastolic (mm Hg) 2018-04-14 15:00:00 Mem orial [facility] Respitory Rate 2018-04-14 15:00:00 Mem[facility] [place] Systolic (mm Hg) 2018-04-14 14:00:00 Wagner [facility] Diastolic (mm Hg) 2018-04-14 14:00:00 Mem orial [facility] Respitory Rate 2018-04-14 14:00:00 [facility] Temperature Oral (F) 2018-04-14 13:35:00 97.2 F [facility] Temperature Oral (F) 2018-04-14 10:00:00 97.6 F [facility] Heart Rate 2018-04-14 03:11:00 [facility] Heart Rate 2018-04-14 01:02:00 [facility] Weight 2018-04-13 19:53:00 [facility] Height 2018-04-13 19:53:00 160.02 cm [facility] BMI Calculated 2018-04-13 19:53:00 Memori [facility] [place] Heart Rate 2018-04-13 19:53:00 [facility] Systolic (mm Hg) 2018-01-31 19:28:00 Wagner rial [place] Diastolic (mm Hg) 2018-01-31 19:28:00 Mem orial [...] Systolic (mm Hg) 2018-01-31 15:07:00 Wagner rial [facility] Diastolic (mm Hg) 2018-01-31 15:07:00 Mem [facility]rial [place] Respitory Rate 2018-01-31 14:02:00 Memori al [place] Systolic (mm Hg) 2018-01-31 14:02:00 Wagner rial [facility] Diastolic (mm Hg) 2018-01-31 14:02:00 Mem orial [place] Temperature Oral (F) 2018-01-31 10:46:00 98.6 F [facility] Heart Rate 2018-01-31 10:46:00 [facility] Systolic (mm Hg) 2017-06-28 14:36:00 Wagner rial [place] Diastolic (mm Hg) 2017-06-28 14:36:00 Mem [facility] Temperature Oral (F) 2017-06-28 14:36:00 98.1 F [facility] Respitory Rate 2017-06-28 14:36:00 [facility] Heart Rate 2017-06-28 14:36:00 [facility] Respitory Rate 2017-06-28 09:31:00 [facility] Temperature Oral (F) 2017-06-28 09:31:00 97.9 F [facility] Weight 2017-06-28 09:31:00 [facility] Heart Rate 2017-06-28 09:31:00 [facility] Systolic (mm Hg) 2017-06-28 09:31:00 Wagner Jo Diastolic (mm Hg) 2017-06-28 09:31:00 Shadi Jo Procedures Procedure Date / Time Performing Clinician Source Performed EMERGENCY SERVICES 2022-01-27 05:01:00 Jo C[facility] AGREEMENTS AND [facility] AUTHORIZATIONS CONSENT/REFUSAL FOR 2022-01-27 04:26:13 Doctor Mead [facility] DIAGNOSIS AND TREATMENT [facility] URINALYSIS 2022-01-20 05:18:00 Ministerio [facility] URINE DRUG (IMMUNOASSAY) 2022-01-20 05:18:00 Ministerio Krause [facility] DRUG [facility] SCREEN W/O REFLEX CONSENT/REFUSAL FOR 2022-01-20 05:05:26 [facility] DIAGNOSIS AND TREATMENT [facility] URINALYSIS 2022-01-18 05:36:00 Tahir Rockwell [facility] CONSENT/REFUSAL FOR 2021-02-20 05:09:04 Doctor Mead [facility] DIAGNOSIS AND TREATMENT [facility] NOTICE OF PRIVACY 2020-12-17 05:49:43 Doctor Mead [facility] CONSENT/REFUSAL FOR 2020-12-17 05:49:22 [facility] DIAGNOSIS AND TREATMENT [facility] CONSENT/REFUSAL FOR 2020-11-07 08:31:45 Doctor Mead [facility] DIAGNOSIS AND TREATMENT [facility] NOTICE OF PRIVACY 2020-09-28 05:36:52 Doctor Mead [facility] CONSENT/REFUSAL FOR 2020-09-28 05:31:04 [facility] DIAGNOSIS AND TREATMENT [facility] XR ANKLE 3+ VW RIGHT 2020-09-24 05:48:05 Umu Barillas [facility] [place] XR FOOT 3+ VW RIGHT 2018-11-26 08:52:27 [facility] [place] NOTICE OF PRIVACY 2018-11-26 08:32:51 Doctor Unasslucie, [facility] PRACTICES [facility] CONSENT/REFUSAL FOR 2018-11-26 08:31:21 Doctor Houston Mead [facility] DIAGNOSIS AND TREATMENT [facility] EKG-12 LEAD 2018-11-04 07:40:11 David Gil o f [facility] POCT GLUCOSE (AUTOMATED) 2018-11-04 07:33:00 David [facility] CONSENT/REFUSAL FOR 2018-11-04 06:31:07 Doctor UnassHouston faulkner [facility] DIAGNOSIS AND TREATMENT [facility] Plan of Care Planned Activity Planned Date Details Comments Source Future Scheduled 2022-11-06 Screening for [facility] Test 07:28:10 malignant neoplasm of colon (procedure) [code = 540223746] Future Scheduled 2022-11-06 Screening for [facility] Test 07:28:10 malignant neoplasm of colon (procedure) [code = 200752539] Future Scheduled 2022-11-06 Screening for [facility] Test 07:28:10 malignant neoplasm of colon (procedure) [code = 832532240] Future Scheduled 2022-11-06 COVID[facility]19 [facility]:28:10 [code = COVID-19 VACCINE (#1)] Future Scheduled 2022-11-06 Screening for [facility] Test 07:28:10 malignant neoplasm of cervix (procedure) [code = 023421229] Future Scheduled 2022-11-06 BREAST CANCER [facility] Test 07:28:10 SCREENING [code = BREAST CANCER SCREENING] Future Scheduled 2022-11-06 Screening for [facility] Test 07:28:10 malignant neoplasm of colon (procedure) [code = 405642899] Future Scheduled 2022-11-06 Screening for [facility] Test 07:28:10 malignant neoplasm of colon (procedure) [code = 221228411] Future Scheduled 2022-11-06 SHINGLES VACCINES ([facility] 07:28:10 of 2) [code = SHINGLES VACCINES (1 of 2)] Future Scheduled 2022-11-06 INFLUENZA VACCINE [facility] Test 07:28:10 [code = INFLUENZA VACCINE] Future Scheduled 2022-03-27 COVID-19 [facility]ACCINE (#[facility] 22:08:57 [code = COVID-19 VACCINE (#1)] Future Scheduled 2022-03-27 Screening for [facility] Test 22:08:57 malignant neoplasm of cervix (procedure) [code = 999594906] Future Scheduled 2022-03-27 BREAST CANCER [facility] Test 22:08:57 SCREENING [code = BREAST CANCER SCREENING] Future Scheduled 2022-03-27 COLONOSCOPY SCREENING [facility] Test 22:08:57 [code = COLONOSCOPY SCREENING] Future Scheduled 2022-03-27 SHINGLES VACCINES (1 Met [facility] Test 22:08:57 of 2) [code = SHINGLES VACCINES (1 of 2)] Future Scheduled 2022-03-27 INFLUENZA VACCINE Method [facility] Test 22:08:57 [code = INFLUENZA VACCINE] Future Scheduled 2022-02-11 COVID-19 VACCINE (#1) [facility] Test 22:30:00 [code = COVID-19 VACCINE (#1)] Future Scheduled 2022-02-11 Screening for [facility] Test 22:30:00 malignant neoplasm of cervix (procedure) [code = 076144897] Future Scheduled 2022-02-11 BREAST CANCER [facility] Test 22:30:00 SCREENING [code = BREAST CANCER SCREENING] Future Scheduled 2022-02-11 COLONOSCOPY SCREENING [facility] Test 22:30:00 [code = COLONOSCOPY SCREENING] Future Scheduled 2022-02-11 SHINGLES VACCINES (1 Met [facility] Test 22:30:00 of 2) [code = SHINGLES VACCINES (1 of 2)] Future Scheduled 2022-02-11 INFLUENZA VACCINE Method [facility] Test 22:30:00 [code = INFLUENZA VACCINE] Future Scheduled 2022-02-11 HEPATITIS B VACCINES Met [facility] Test 22:30:00 (1 of 3 - 3-dose series) [code = HEPATITIS B VACCINES (1 of 3 - 3-dose series)] Future Scheduled 2021-12-03 HEPATITIS B VACCINES Met [facility] Test 23:04:54 (1 of 3 - 3-dose series) [code = HEPATITIS B VACCINES (1 of 3 - 3-dose series)] Future Scheduled 2021-12-03 COVID-19 VACCINE (#1) [facility] Test 23:04:54 [code = COVID-19 VACCINE (#1)] Future Scheduled 2021-12-03 Screening for [facility] Test 23:04:54 malignant neoplasm of cervix (procedure) [code = 253354568] Future Scheduled 2021-12-03 BREAST CANCER [facility] Test 23:04:54 SCREENING [code = BREAST CANCER SCREENING] Future Scheduled 2021-12-03 COLONOSCOPY SCREENING [facility] Test 23:04:54 [code = COLONOSCOPY SCREENING] Future Scheduled 2021-12-03 SHINGLES VACCINES (1 Met [facility] Test 23:04:54 of 2) [code = SHINGLES VACCINES (1 of 2)] Future Scheduled 2021-12-03 INFLUENZA VACCINE Method [facility] Test 23:04:54 [code = INFLUENZA VACCINE] Future Scheduled 2021-12-03 HEPATITIS B VACCINES Met [facility] Test 23:04:54 (1 of 3 - 3-dose series) [code = HEPATITIS B VACCINES (1 of 3 - 3-dose series)] Future Scheduled 2021-12-03 COVID-19 VACCINE (#1) [facility] Test 23:04:54 [code = COVID-19 VACCINE (#1)] Future Scheduled 2021-12-03 Screening for [facility] Test 23:04:54 malignant neoplasm of cervix (procedure) [code = 765514394] Future Scheduled 2021-12-03 BREAST CANCER [facility] Test 23:04:54 SCREENING [code = BREAST CANCER SCREENING] Future Scheduled 2021-12-03 COLONOSCOPY SCREENING [facility] Test 23:04:54 [code = COLONOSCOPY SCREENING] Future Scheduled 2021-12-03 SHINGLES VACCINES (1 Met [facility] Test 23:04:54 of 2) [code = SHINGLES VACCINES (1 of 2)] Future Scheduled 2021-12-03 INFLUENZA VACCINE Method [facility] Test 23:04:54 [code = INFLUENZA VACCINE] Future Scheduled 2019-12-04 INFLUENZA VACCINE (#1) [facility] Test 00:00:00 [code = INFLUENZA Medical Ce nter VACCINE (#1)] Future Scheduled [address] [facility] Test 00[facility]00:00 (procedure) [code = Medical Center [id number]] Future Scheduled [address] [facility] Test 00:[facility]:00 malignant neoplasm of [facility] Center cervix (procedure) [code = 964319026] Future Scheduled [address] [facility] Test 00:00:00 0-64 YRS (1 of 1 - Medical C enter PPSV23) [code = PNEUMOCOCCAL VACCINE 0-64 YRS (1 of 1 - PPSV23)] Future Scheduled [address] [facility] Test 00:00:00 malignant neoplasm of [facility] breast (procedure) [code = 245100552] Future Scheduled [address] [facility] Test 00:00:00 malignant neoplasm of [facility] colon (procedure) [code = 761892231] Future Scheduled [facility] [code = COLONOSCOPY SCREENING] Future Scheduled SHINGLES VACCINES (#[facility]) [facility] [code = SHINGLES VACCINES (#1)] Future Scheduled [facility]ZA [facility] [code = INFLUENZA VACCINE] Future Scheduled COVID-19 VACCINE (1) [facility] [code = COVID-19 VACCINE (1)] Future Scheduled Screening for [facility] Test malignant neoplasm of cervix (procedure) [code = 484761868] Future Scheduled BREAST CANCER [facility] Test SCREENING [code = BREAST CANCER SCREENING] Encounters Start End Encounter Admission Attending Care Care Encounter Source Date/Time Date/Time Type Type Clinicians Facility Department ID 2022-01-27 2022-01-27 Emergency X Bk FU [facility] ERT [id number] Univers 00:10:00 03:01:00 ity of [facility] 2022-01-27 2022-01-27 Emergency Bk Fu [facility] [id number] Univers 00:10:00 03:01:00 Alva MODI [id number] i ty of [place] [id number] [facility] [id number] Medi richard 084 Branch 2022-01-27 2022-01-27 Orders Doctor MONTALVO [id number] Univers 00:00:00 00:00:00 Only Unassigned, HIL[place] [id number] [facility] [place] [facility] [id number] [facility] [id number] Medi richard 009 Branch 2022-01-20 2022-01-20 Emergency X IBIKUNLE, [facility] ERT [id number] Univers 00:07:00 01:39:00 MINISTERIO ity [facility] 2022-01-20 2022-01-20 Emergency Nelida, [facility] [place] 1.2.840.114 [id number] Univers 00:07:00 01:39:00 Ministerio CARRO[place] 350.1.13.10 ity of [facility] 4.2.7.2.686 [facility] [phone] [address] 2022-01-18 2022-01-18 Emergency X Bk FU [facility] ERT [id number] Univers 00:31:00 02:27:00 ity of [facility] 2022-01-18 2022-01-18 Emergency Bk Fu [facility] 1.2.840.114 [id number] Univers 00:31:00 02:27:00 Alva MODI 350.1.13.10 i ty of [place] 4.2.7.2.686 [facility] [id number] [address] 2021-03-03 2021-03-03 Emergency [facility] [id number] Univers 02:39:00 03:00:00 Milagros MODI 350.1.13.10 i ty of [place] 4.2.7.2.686 [facility] [phone] [address] 2021-03-03 2021-03-03 Emergency [facility] ERT [id number] Univers 02:39:00 03:00:00 MILAGROS ity [facility] 2021-02-19 2021-02-20 Emergency X SHERI, [facility] ERT [id number] Univers 23:23:00 01:46:00 TAHIR ity [facility] 2021-02-19 2021-02-20 Emergency [facility] [id number] Univers 23:23:00 01:46:00 Tahir MODI 350.1.13.10 ity of [facility] 4.2.7.2.686 [facility] [id number] [address] 2021-01-12 2021-01-12 Emergency [facility] 1.2.840.114 [id number] Univers 03:24:00 03:55:00 Umu Modi 350.1.13.10 ity [facility] 4.2.7.2[address] [place] [id number] 2021-01-12 2021-01-12 Emergency X NARGIS, [facility] ERT [id number] Univers 03:24:00 03:24:00 UMU ity of [facility] 2021-01-11 2021-01-11 Emergency [facility] 1.2.840.114 [id number] Univers 19:24:00 20:00:00 Umu Modi 350.1.13.10 ity [facility] 4.2.7.2.[address] [place] [id number] 2021-01-11 2021-01-11 Emergency X [facility] [id number] Univers 19:24:00 19:24:00 UMU ity [facility] 2020-12-17 2020-12-17 Emergency [facility] [id number] Univers 01:00:00 01:40:00 Milagros Modi 350.1.13.10 i ty of [place] 4.2.7.2.[address] [place] [id number] 2020-12-17 2020-12-17 Emergency X [facility] ERT [id number] Univers 00:47:00 00:47:00 ity of [facility] 2020-11-07 2020-11-07 Emergency [facility] 1.2.377.452 [id number] Univers 03:52:00 06:43:00 Tahir Modi 350.1.13.10 ity [facility] 4.2.7.2[address] [place] [phone] 2020-11-07 2020-11-07 Emergency [facility] 1.2.087.120 [id number] 03:52:00 06:43:00 Tahir Modi 350.1.13.10 [place] 4.2.7.2.686 [place] [id number] 084 2020-11-07 2020-11-07 Emergency X [facility] ERT [id number] Univers 03:31:00 03:31:00 ity [facility] 2020-09-27 2020-09-28 Emergency [facility] 1.2.206.430 [id number] Univers 23:09:00 03:14:00 Tahir Mdoi 350.1.13.10 ity of [place] 4.2.7.2.686 [facility] [id number] [address] 2020-09-27 2020-09-28 Emergency [facility] 1.2.562.592 [id number] 23:09:00 03:14:00 Tahir Modi 350.1.13.10 [place] 4.2.7.2.686 [place] [id number] [facility] 2020-09-27 2020-09-27 Emergency X [facility] ERT [id number] [facility] 23:09:00 23:09:00 KASIALELOROSALINA strickland [facility] 2020-09-24 2020-09-24 Emergency [facility] 1.2.840.114 [id number] [facility] 00:36:00 01:37:00 Umu Juan Alyce 350.1.13.10 ity [facility] 4.2.7.2.686 [facility] [id number] [address] 2020-09-24 2020-09-24 Emergency [facility] 1.2.840.114 [id number] 00:36:00 01:37:00 Umu Martinez Alyce 350.1.13.10 [place] 4.2.7.2.686 [place] [id number] [facility] 2020-09-24 2020-09-24 Emergency X [facility]RT [id number] Univers 00:36:00 00:36:00 UMU jasenjamari [facility] 2018-11-27 2018-11-27 Patient Edilia Gonzalez 1.2.840.114 [id number] Univers 00:00:00 00:00:00 Outreach E [place] 350.1.13.10 [place] [phone] [facility] [address] 2018-11-27 2018-11-27 Patient Edilia Gonzalez 1.2.840.114 [id number] 00:00:00 00:00:00 Outreach E [place] 350.1.13.10 [place] 4.2.7.2.686 [id number] 2018-11-26 2018-11-26 Emergency Nargis, [facility] 1.2.840.114 [id number] [facility] 03:43:44 04:30:00 Umu Modi 350.1.13.10 ity of [place].2.[place] [id number] [place] [address] [place] 2018-11-26 2018-11-26 Emergency Nargis [facility] 1.2.840.114 [id number] 03:43:44 04:30:00 Umu Modi 350.1.13.10 [place] 4.2.7.2.686 [place] [id number] [facility] 2018-11-04 2018-11-04 Emergency Singer [facility] 1.2.788.688 [id number] [facility] 02:27:58 03:11:00 David Modi 350.1.13.10 i ty of [place].2.[place] [id number] [place] [address] [place] 2018-11-04 2018-11-04 Emergency Singer [facility] [id number] 02:27:58 03:11:00 David Modi 350.1.13.10 [place] 4.2.7.2.686 [place] [id number] [facility] 2018-11-04 2018-11-04 Orders Doctor MONTALVO 1.2.840.114 [id number] Univers 00:00:00 00:00:00 Only Unassigned, HILTON 350.1.13.10 ity of [place] [facility] 4.2.7.2.686 Ever[place] as [phone] [facility] [address] 2018-11-04 2018-11-04 Orders Doctor MONTALVO 1.2.840.114 [id number] 00:00:00 00:00:00 Only Unassigned, [place] 350.1.13.10 [place] [facility] 4.2.7.2.686 [id number] 009 2018-04-17 2018-04-19 Phone nullFlavo MNA [id number] Memoria 19:55:00 05:59:59 Message r Neurosurger 00 l y [facility] 2018-04-17 2018-04-19 Phone nullFlavo MNA [id number] Memoria 19:55:00 05:59:59 Message r Neurosurger 00 l y [facility] 2018-04-17 2018-04-18 [id number] 13:55:00 23:59:59 00 2018-04-13 2018-04-14 Inpatient [facility]Fl[facility] [id number] Memoria 19:48:00 19:15:[address] 2018-04-13 2018-04-14 Inpatient [facility]Fl[facility] [id number] Memoria 19:48:00 19:15:[address] 2018-04-13 2018-04-14 Outpatient René [facility] [id number] 13:48:00 13:15:00 Ritvij 2018-01-31 2018-01-31 Emergency [facility]Flavo [facility] [id number] Memoria 19:12:00 23:03:00 r Frederick [facility] 2018-01-31 2018-01-31 Emergency [facility]Flavo [facility] [id number] Memoria 19:12:00 23:03:00 r Frederick [facility] 2018-01-31 2018-01-31 Outpatient Diego [facility] [id number] 14:12:00 18:03:00 Hardik Barragan 2018-01-31 2018-01-31 Emergency [facility]Fl[facility] [id number] Memoria 10:46:00 18:01:[address] 2018-01-31 2018-01-31 Emergency [facility]Flavo [facility] [id number] Memoria 10:46:00 18:01:[address] 2018-01-31 2018-01-31 Outpatient Patricia [facility] [id number] 05:46:00 13:01:00 Kel Cadena 03 2017-07-02 2017-07-02 Emergency E [facility] [id number] 08:16:00 08:16:00 [facility] 2017-06-28 2017-06-28 Emergency [facility] [id number] Memoria 09:28:00 14:45:00 r Sandro 00 l [facility] 2017-06-28 2017-06-28 Emergency [facility] [id number] Memoria 09:28:00 14:45:00 r Frederick 00 l [facility] 2017-06-28 2017-06-28 Outpatient Glenny [facility] [id number] 04:28:00 09:45:00 Semaj Maximino 00 Results [...] AM CDTCLINICAL HISTORY: Right foot painORDERING PHYSICIAN: UUM BARILLASTECHNIQUE: 3 views.COMPARISON: None.FINDINGS:No fracture or dislocation. Surrounding soft tissues are unremarkable.There is severe joint space narrowing of the first metatarsophalangealjoin t.IMPRESSIONNo acute osseous injury identified. Severe osteoarthritis of the first metatarsophalangeal jointRL: 5252 POCT GLUCOSE (AUTOMATED) 2018-11-04 07:36:00 Test Item Value Reference Range Interpretation Comme nts POCT GLU (test code = 9682859458) 111 mg/dL 70-110 H Lab Interpretation (test code = 37547-2) [facility] [id number] 08:06:00 Test Item Value Reference Range Interpretation Comments SCAN RESULT (test code = 9048964) CELIAC DISEASE PROFILE Refer to Celiac AUTOVERIFICATION (QUEST) Disease Panel (test code = 0510296) results. CT, [id number] 19:42:00Only need IV contrast, not POFINAL REPORT [...] the partial small bowel obstru ction. Signed: Gee Simeon MDReport Verified Date/Time: 09/05/2018 19:42:13 Reading Location: [address] Consult Reading Room RAD, ABDOMEN/KUB, 1 VIEW [id number] 15:30:00Reason for exam:->look for retained video capsuleAddendum BeginsREPORT STATUS:A Addendum:The video capsule is seen projected over the right iliac wing. It could be in the distal ileum versus large bowel. If in exact location is needed. CT scan will be necessary. End of addendum. Signed: Reza Huitron Verified Date/Time: 09/05/2018 15:30:35 Reading Location: [facility] Radiology Reading RoomAddendum EndsFINAL REPORT TECHNIQUE: Supine radiograph of the abdomen dated 09/05/2018 HISTORY: Evaluate for retained video capsule. COMPARISON: None IMPRESSION:No air-filled, dilated loops of bowel to suggest obstruction. No free intraperitoneal air. No abnormal soft tissue mass. No radiodense foreign body visualized. Bones are unremarkable. Signed: Reza Huitron Verified Date/Time: 09/05/2018 14:53:33 Reading Location: [facility] Radiology Reading Room GI PATHOGEN PROFILE BY [id number] 10:43:00 Test Item Value Reference Range Interpretation [...] Not detected BY PCR (test code = 8279344) ENTEROPATHOGENIC E. COLI (EPEC) Not detected Not detected BY PCR (test code = 1887293) ENTEROTOXIGENIC E. COLI (ETEC) Not detected Not detected LT/ST BY PCR (test code = 5743430) SHIGA-LIKE TOXIN-PRODUCING E. Not detected Not detected COLI (STEC) STX1/STX2 (test code = 20151108) E. COLI O157 (PCR) (test code = Not detected 20151109) SHIGELLA/ENTEROINVASIVE E. COLI Not detected Not detected (EIEC) BY PCR (test code = 20151110) CRYPTOSPORIDIUM (PCR) (test code Not detected Not detected = 20151111) CYCLOSPORA CAYETANENSIS (PCR) Not detected Not detected (test code = 8622844) ENTAMOEBA HISTOLYTICA (PCR) Not detected Not detected (test code = 20151204) GIARDIA LAMBLIA (PCR) (test code Not detected Not detected = 20151205) ADENOVIRUS F 40/41 (PCR) (test Not detected Not detected code = 4433559) ASTROVIRUS (PCR) (test code = Not detected Not detected 20151207) NOROVIRUS GI/GII (PCR) (test Not detected Not detected code = 1573115) ROTAVIRUS A (PCR) (test code = Not detected Not detected 20151209) SAPOVIRUS (I, II, IV, V) BY PCR Not detected Not detected (test code = 0475651) VIBRIO (PARAHAEMOLYTICUS, Not detected Not detected VULNIFICUS) (test code = 8747545) Other viruses, parasites and bacteria not targeted by this PCR panel cannot be excluded; therefore clinical correlation and follow up of serology, culture results, and other molecular studies is required. The results are not intended to be used as the sole means for clinical diagnosis or patient management decisions. This sample was tested at the [facility] Molecular Diagnostics Laboratory using the [employer] Gastrointestinal Panel. It is FDA cleared and has been verified and approved by the [facility] Molecular Diagnostics Laboratory for clinical use. This laboratory is CLIA-certified and College ofAmerican Pathologists (CAP)-accredited to perform high complexity testing.BASIC METABOLIC [id number] 05:42:00 Test Item Value Reference Range Interpretation [...] 697) EGFR (BEAKER) (test 95 mL/min/1.73 ESTIMA MAURICE GFR IS code = 1092) sq m [...] 0-0 (BEAKER) (test code = 413) C-REACTIVE [id number] 18:59:00 Test Item Value Reference Range Interpretation Comments C-REACTIVE PROTEIN (BEAKER) (test 0.38 mg/dL 0.00-0.50 code = 676) [id number] 05:48:00 Test Item Value Reference Range Interpretation Comments FERRITIN (BEAKER) (test code = 361) 13 ng/mL 5-275 BASIC METABOLIC [id number] 05:27:00 Test Item Value Reference Range Interpretation [...] 0-0 (BEAKER) (test code = 413) RETICULOCYTE [id number] 05:05:00 Test Item Value Reference Range Interpretation Comments RETICULOCYTE COUNT PCT (BEAKER) (test 1.1 % 0.5-1.7 code = 575) SCREEN, [id number] 15:17:00 Test Item Value Reference Range Interpretation Comments TEST URINE (BEAKER) (test Negative code = 583) BASIC METABOLIC [id number] 04:53:00 Test Item Value Reference Range Interpretation [...] 0-0 (BEAKER) (test code = 413) CHEM [id number] 03:57:00 Test Item Value Reference Range Interpretation Comments Bili Direct (test code 0.1 See_Comment [Aut omated message] The = Bili Direct) system which generated this result tra nsmitted reference range : <=0.3. The reference r corazon was not used to int erpret this result as juan l/abnormal. [employer] [id number] 03:57:00 Test Item Value Reference Range Interpretation Comments Bili Total (test code = Bili Total) 0.4 0.2-1.3 [facility] [employer] [id number] 03:57:00 Test Item Value Reference Range Interpretation Comments Alk Phos (test code = Alk Phos) 49 39-136 [facility] [employer] [id number] 03:57:00 Test Item Value Reference Range Interpretation Comments AST (test code = AST) 24 See_Comment [Auto mated message] The system which ge nerated this result transmit maurice reference range : <=37. The reference range was not used to interpr et this result as juan l/abnormal. [employer]2019-01-11 03:57:00 Test Item Value Reference Range Interpretation Comments Total Protein (test code = Total 6.0 6.4-8.4 Protein) [facility]2019-01-11 03:57:00 Test Item Value Reference Range Interpretation Comments ALT (test code = ALT) 19 See_Comment [Auto mated message] The system which ge nerated this result transmit maurice reference range : <=65. The reference range was not used to interpr et this result as juan l/abnormal. [place] [id number] 03:57:00 Test Item Value Reference Range Interpretation Comments Albumin Lvl (test code = Albumin Lvl) 3.0 3.5-5.0 [facility]2019-01-11 03:57:00 Test Item Value Reference Range Interpretation Comments Globulin (test code = Globulin) 3.0 2.7-4.2 [facility]2019-01-11 03:57:00 Test Item Value Reference Range Interpretation Comments Bili Indirect (test 0.3 See_Comment [Automa maurice message] The code = Bili Indirect) system which generated this result tra nsmitted reference range : <=1.0. The reference r corazon was not used to int erpret this result as normal/abnormal . [facility]2019-01-11 03:57:00 Test Item Value Reference Range Interpretation Comments A/G Ratio (test code = A/G Ratio) 1.0 1 0.7-1.6 [place] [id number] 03:57:00 Test Item Value Reference Range Interpretation Comments Bili Direct (test code 0.1 See_Comment [Aut omated message] The = Bili Direct) system which generated this result tra nsmitted reference range : <=0.3. The reference r corazon was not used to int erpret this result as juan l/abnormal. [place] 431189-01-11 03:57:00 Test Item Value Reference Range Interpretation Comments Bili Total (test code = Bili Total) 0.4 0.2-1.3 [place] [id number] 03:57:00 Test Item Value Reference Range Interpretation Comments Alk Phos (test code = Alk Phos) 49 39-136 [facility]2019-01-11 03:57:00 Test Item Value Reference Range Interpretation Comments AST (test code = AST) 24 See_Comment [Auto mated message] The system which ge nerated this result transmit maurice reference range : <=37. The reference range was not used to interpr et this result as juan l/abnormal. [facility]2019-01-11 03:57:00 Test Item Value Reference Range Interpretation Comments Total Protein (test code = Total 6.0 6.4-8.4 Protein) [facility]2019-01-11 03:57:00 Test Item Value Reference Range Interpretation Comments ALT (test code = ALT) 19 See_Comment [Auto mated message] The system which ge nerated this result transmit maurice reference range : <=65. The reference range was not used to interpr et this result as juan l/abnormal. [facility]2019-01-11 03:57:00 Test Item Value Reference Range Interpretation Comments Albumin Lvl (test code = Albumin Lvl) 3.0 3.5-5.0 [facility]2019-01-11 03:57:00 Test Item Value Reference Range Interpretation Comments Globulin (test code = Globulin) 3.0 2.7-4.2 [facility]2019-01-11 03:57:00 Test Item Value Reference Range Interpretation Comments Bili Indirect (test 0.3 See_Comment [Automa maurice message] The code = Bili Indirect) system which generated this result tra nsmitted reference range : <=1.0. The reference r corazon was not used to int erpret this result as normal/abnormal . [facility]2019-01-11 03:57:00 Test Item Value Reference Range Interpretation Comments A/G Ratio (test code = A/G Ratio) 1.0 1 0.7-1.6 [facility]2019-01-11 03:57:00 Test Item Value Reference Range Interpretation Comments Bili Direct (test code 0.1 See_Comment [Aut omated message] The = Bili Direct) system which generated this result tra nsmitted reference range : <=0.3. The reference r corazon was not used to int erpret this result as juan l/abnormal. [facility]2019-01-11 03:57:00 Test Item Value Reference Range Interpretation Comments Bili Total (test code = Bili Total) 0.4 0.2-1.3 [place] 431189-01-11 03:57:00 Test Item Value Reference Range Interpretation Comments Alk Phos (test code = Alk Phos) 49 39-136 [place] 431189-01-11 03:57:00 Test Item Value Reference Range Interpretation Comments AST (test code = AST) 24 See_Comment [Auto mated message] The system which ge nerated this result transmit maurice reference range : <=37. The reference range was not used to interpr et this result as juan l/abnormal. [facility]2019-01-11 03:57:00 Test Item Value Reference Range Interpretation Comments Total Protein (test code = Total 6.0 6.4-8.4 Protein) [place] 431189-01-11 03:57:00 Test Item Value Reference Range Interpretation Comments ALT (test code = ALT) 19 See_Comment [Auto mated message] The system which ge nerated this result transmit maurice reference range : <=65. The reference range was not used to interpr et this result as juan l/abnormal. [facility]2019-01-11 03:57:00 Test Item Value Reference Range Interpretation Comments Albumin Lvl (test code = Albumin Lvl) 3.0 3.5-5.0 [place] 431189-01-11 03:57:00 Test Item Value Reference Range Interpretation Comments Globulin (test code = Globulin) 3.0 2.7-4.2 [place] 431189-01-11 03:57:00 Test Item Value Reference Range Interpretation Comments Bili Indirect (test 0.3 See_Comment [Automa maurice message] The code = Bili Indirect) system which generated this result tra nsmitted reference range : <=1.0. The reference r corazon was not used to int erpret this result as normal/abnormal . [facility]2019-01-11 03:57:00 Test Item Value Reference Range Interpretation Comments A/G Ratio (test code = A/G Ratio) 1.0 1 0.7-1.6 [place] 431189-01-11 03:57:00 Test Item Value Reference Range Interpretation Comments Bili Direct (test code 0.1 See_Comment [Aut omated message] The = Bili Direct) system which generated this result tra nsmitted reference range : <=0.3. The reference r corazon was not used to int erpret this result as juan l/abnormal. [place] 431189-01-11 03:57:00 Test Item Value Reference Range Interpretation Comments Bili Total (test code = Bili Total) 0.4 0.2-1.3 [place] 431189-01-11 03:57:00 Test Item Value Reference Range Interpretation Comments Alk Phos (test code = Alk Phos) 49 39-136 [facility]2019-01-11 03:57:00 Test Item Value Reference Range Interpretation Comments AST (test code = AST) 24 See_Comment [Auto mated message] The system which ge nerated this result transmit maurice reference range : <=37. The reference range was not used to interpr et this result as juan l/abnormal. [place] 431189-01-11 03:57:00 Test Item Value Reference Range Interpretation Comments Total Protein (test code = Total 6.0 6.4-8.4 Protein) [facility]2019-01-11 03:57:00 Test Item Value Reference Range Interpretation Comments ALT (test code = ALT) 19 See_Comment [Auto mated message] The system which ge nerated this result transmit maurice reference range : <=65. The reference range was not used to interpr et this result as juan l/abnormal. [facility]2019-01-11 03:57:00 Test Item Value Reference Range Interpretation Comments Albumin Lvl (test code = Albumin Lvl) 3.0 3.5-5.0 [place] 431189-01-11 03:57:00 Test Item Value Reference Range Interpretation Comments Globulin (test code = Globulin) 3.0 2.7-4.2 [place] 431189-01-11 03:57:00 Test Item Value Reference Range Interpretation Comments Bili Indirect (test 0.3 See_Comment [Automa maurice message] The code = Bili Indirect) system which generated this result tra nsmitted reference range : <=1.0. The reference r corazon was not used to int erpret this result as normal/abnormal . [place] 431189-01-11 03:57:00 Test Item Value Reference Range Interpretation Comments A/G Ratio (test code = A/G Ratio) 1.0 1 0.7-1.6 [facility]2019-01-10 21:07:00 Test Item Value Reference Range Interpretation Comments eGFR (test code = eGFR) 109 [facility]2019-01-10 21:07:00 Test Item Value Reference Range Interpretation Comments Chloride Lvl (test code = Chloride Lvl) 112 95-109 [facility]2019-01-10 21:07:00 Test Item Value Reference Range Interpretation Comments CO2 (test code = CO2) 23 24-32 [facility]2019-01-10 21:07:00 Test Item Value Reference Range Interpretation Comments Creatinine Lvl (test code = Creatinine 0.58 0.50-1.40 Lvl) [facility]2019-01-10 21:07:00 Test Item Value Reference Range Interpretation Comments Sodium Lvl (test code = Sodium Lvl) 144 135-145 [facility]2019-01-10 21:07:00 Test Item Value Reference Range Interpretation Comments Potassium Lvl (test code = Potassium 4.4 3.5-5.1 Lvl) [facility]2019-01-10 21:07:00 Test Item Value Reference Range Interpretation Comments Calcium Lvl (test code = Calcium Lvl) 8.6 8.5-10.5 [facility]2019-01-10 21:07:00 Test Item Value Reference Range Interpretation Comments BUN (test code = BUN) 7 7-22 [facility]2019-01-10 21:07:00 Test Item Value Reference Range Interpretation Comments Glucose Lvl (test code = Glucose Lvl) 107 70-99 [facility]2019-01-10 21:07:00 Test Item Value Reference Range Interpretation Comments AGAP (test code = AGAP) 13.4 10.0-20.0 [id number] 21:07:00 Test Item Value Reference Range Interpretation Comments Estimated % Lysis Rapid 2.1 See_Comment [Au tomated message] The (test code = Estimated syste m which generated % Lysis Rapid) this result t ransmitted reference range : <=7.5. The reference r corazon was not used to int erpret this result as normal/abnormal . [facility] CenterJukyuznXPXQCPQAWF7306-64-79 21:07:00 Test Item Value Reference Range Interpretation Comments Angle Rapid (test code = Angle 75 degrees 64-80 Rapid) [facility] CenterOigcufwQJKMLODQEE3653-26-41 21:07:00 Test Item Value Reference Range Interpretation Comments G-value Rapid (test code = G-value 8.6 5.0-11.6 Rapid) [facility] CenterWatyyjxBKVHLUBESW1250-92-21 21:07:00 Test Item Value Reference Range Interpretation Comments Max Amplitude Rapid (test code = Max 63 mm 52-71 Amplitude Rapid) [facility] CenterEraulcqSMPAIVJXUI1426-96-17 21:07:00 Test Item Value Reference Range Interpretation Comments R-time Rapid (test code = R-time 0.7 min 0.4-0.7 Rapid) [facility] CenterAtqyoolQFLTDMDVQH5803-46-72 21:07:00 Test Item Value Reference Range Interpretation Comments K-time Rapid (test code = K-time 1.2 min 0.6-2.3 Rapid) [facility] CenterUkewhivDPLSQBVAXU3075-35-53 21:07:00 Test Item Value Reference Range Interpretation Comments Basophils (test code = 0.7 See_Comment [Aut omated message] The Basophils) system which ge nerated this result tra nsmitted reference range : <=1.0. The reference r corazon was not used to int erpret this result as normal/abnormal . [facility] CenterOvukrbyMTCDMUNYDJ7563-10-00 21:07:00 Test Item Value Reference Range Interpretation Comments Neutrophils # (test code = Neutrophils 3.3 1.5-8.1 #) [facility] CenterMkluhkfGKGOYAFGYF8976-34-07 21:07:00 Test Item Value Reference Range Interpretation Comments Lymphocytes # (test code = Lymphocytes 1.7 1.0-5.5 #) [facility] CenterMsplzqoGUBWOWZNPE1597-92-23 21:07:00 Test Item Value Reference Range Interpretation Comments Monocytes # (test code 0.6 See_Comment [Aut omated message] The = Monocytes #) system which generated this result tra nsmitted reference range : <=0.8. The reference r corazon was not used to int erpret this result as normal/abnormal . [facility] CenterLopthryIWEQLIDSMS6997-72-89 21:07:00 Test Item Value Reference Range Interpretation Comments Eosinophils # (test code 0.2 See_Comment [A utomated message] The = Eosinophils #) system whic h generated this result tra nsmitted reference range : <=0.5. The reference r corazon was not used to int erpret this result as normal/abnormal . [facility]2019-01-10 21:07:00 Test Item Value Reference Range Interpretation Comments eGFR (test code = eGFR) 109 [facility]2019-01-10 21:07:00 Test Item Value Reference Range Interpretation Comments Chloride Lvl (test code = Chloride Lvl) 112 95-109 [facility] CenterBtqszeaZJXDYNNIAM1740-18-44 21:07:00 Test Item Value Reference Range Interpretation Comments ACT (TEG) Rapid (test code = ACT (TEG) 113 s 86-118 Rapid) [facility]2019-01-10 21:07:00 Test Item Value Reference Range Interpretation Comments CO2 (test code = CO2) 23 24-32 [facility]2019-01-10 21:07:00 Test Item Value Reference Range Interpretation Comments Creatinine Lvl (test code = Creatinine 0.58 0.50-1.40 Lvl) [facility]2019-01-10 21:07:00 Test Item Value Reference Range Interpretation Comments Sodium Lvl (test code = Sodium Lvl) 144 135-145 [facility]2019-01-10 21:07:00 Test Item Value Reference Range Interpretation Comments Potassium Lvl (test code = Potassium 4.4 3.5-5.1 Lvl) [facility]2019-01-10 21:07:00 Test Item Value Reference Range Interpretation Comments Calcium Lvl (test code = Calcium Lvl) 8.6 8.5-10.5 [facility]2019-01-10 21:07:00 Test Item Value Reference Range Interpretation Comments BUN (test code = BUN) 7 7-22 [facility]2019-01-10 21:07:00 Test Item Value Reference Range Interpretation Comments Glucose Lvl (test code = Glucose Lvl) 107 70-99 [facility]2019-01-10 21:07:00 Test Item Value Reference Range Interpretation Comments AGAP (test code = AGAP) 13.4 10.0-20.0 [facility] CenterXukzokrKSGXJEYBUO2203-87-88 21:07:00 Test Item Value Reference Range Interpretation Comments Estimated % Lysis Rapid 2.1 See_Comment [Au tomated message] The (test code = Estimated syste m which generated % Lysis Rapid) this result t ransmitted reference range : <=7.5. The reference r corazon was not used to int erpret this result as normal/abnormal . [facility] CenterBrevemhPFWBZCJYHF7294-52-94 21:07:00 Test Item Value Reference Range Interpretation Comments Angle Rapid (test code = Angle 75 degrees 64-80 Rapid) [facility] CenterJnjznyeTOXXURQHTR2648-29-90 21:07:00 Test Item Value Reference Range Interpretation Comments Split Point Rapid (test code = Split 0.6 min Point Rapid) [facility] CenterHpzujmzFUKRBGXTYX0775-33-80 21:07:00 Test Item Value Reference Range Interpretation Comments G-value Rapid (test code = G-value 8.6 5.0-11.6 Rapid) [facility] CenterYpjxjrcUZMVWXXXZS4006-46-00 21:07:00 Test Item Value Reference Range Interpretation Comments Max Amplitude Rapid (test code = Max 63 mm 52-71 Amplitude Rapid) [facility] CenterWcbyeloXPOXOTBQYG0267-89-47 21:07:00 Test Item Value Reference Range Interpretation Comments R-time Rapid (test code = R-time 0.7 min 0.4-0.7 Rapid) [facility] CenterLqlrebkUDKUTTOIHY6635-86-44 21:07:00 Test Item Value Reference Range Interpretation Comments K-time Rapid (test code = K-time 1.2 min 0.6-2.3 Rapid) [facility] CenterPjolyrsLFZBUPPMAS4098-13-50 21:07:00 Test Item Value Reference Range Interpretation Comments ACT (TEG) Rapid (test code = ACT (TEG) 113 s 86-118 Rapid) [facility] CenterFyxgltzFHPRGBHGTP1916-27-25 21:07:00 Test Item Value Reference Range Interpretation Comments Split Point Rapid (test code = Split 0.6 min Point Rapid) [facility] CenterIpheeieRLFCPIHUCI9364-27-49 21:07:00 Test Item Value Reference Range Interpretation Comments PTT (test code = PTT) 30.6 s 22.9-35.8 [facility] CenterCdllzyjSIEJHUTUJF7235-85-74 21:07:00 Test Item Value Reference Range Interpretation Comments INR (test code = INR) 1.03 1 0.85-1.17 [facility] CenterZrlnqxuDVLVNXEDRC6793-83-94 21:07:00 Test Item Value Reference Range Interpretation Comments PT (test code = PT) 13.3 s 12.0-14.7 [facility] CenterFymahmeYWJDXDWMTQ8024-52-87 21:07:00 Test Item Value Reference Range Interpretation Comments Hgb (test code = Hgb) 11.1 12.0-16.0 [facility] CenterLbpqfvzYXXMIWKQWH0863-80-48 21:07:00 Test Item Value Reference Range Interpretation Comments PTT (test code = PTT) 30.6 s 22.9-35.8 [facility] CenterAhxtodsPLFDOVCRNM5582-42-31 21:07:00 Test Item Value Reference Range Interpretation Comments Hct (test code = Hct) 33.7 36.0-48.0 [facility] CenterDcwmwepZCTHZQGWGQ9115-74-51 21:07:00 Test Item Value Reference Range Interpretation Comments RBC (test code = RBC) 4.04 4.20-5.40 [facility] CenterRwxwpzxCESJTDNRNW4942-74-11 21:07:00 Test Item Value Reference Range Interpretation Comments WBC (test code = WBC) 5.8 3.7-10.4 [facility] CenterOyijagbGBXFWFVAXG2953-40-78 21:07:00 Test Item Value Reference Range Interpretation Comments RDW (test code = RDW) 17.2 11.5-14.5 [facility] CenterDskgqycAIRMPJPMVQ6987-22-16 21:07:00 Test Item Value Reference Range Interpretation Comments Platelet (test code = Platelet) 365 133-450 [facility] CenterQnniqyrQNWWHYJJUJ3856-23-16 21:07:00 Test Item Value Reference Range Interpretation Comments MCHC (test code = MCHC) 32.9 32.0-36.0 [facility] CenterKhqnnppEQUMDKFWFC1515-25-73 21:07:00 Test Item Value Reference Range Interpretation Comments MCV (test code = MCV) 83.5 80.0-98.0 [facility] CenterPpzcwdcYWUZAYLVJS5536-34-85 21:07:00 Test Item Value Reference Range Interpretation Comments MCH (test code = MCH) 27.5 pg 27.0-31.0 [facility] CenterBoljxdfXHUDRHHYXD6156-64-95 21:07:00 Test Item Value Reference Range Interpretation Comments MPV (test code = MPV) 8.4 7.4-10.4 [facility] CenterYpkurrzSAICEVSDUL5292-79-25 21:07:00 Test Item Value Reference Range Interpretation Comments Segs (test code = Segs) 56.3 45.0-75.0 [facility] CenterCxktgvyPDFFVWUJBW3112-21-03 21:07:00 Test Item Value Reference Range Interpretation Comments INR (test code = INR) 1.03 1 0.85-1.17 [facility] CenterEswunjjYGLDZVLFBF8372-68-96 21:07:00 Test Item Value Reference Range Interpretation Comments Lymphocytes (test code = Lymphocytes) 29.4 20.0-40.0 [facility] CenterPackqdrHEROTDZRLV4105-15-48 21:07:00 Test Item Value Reference Range Interpretation Comments Monocytes (test code = Monocytes) 9.6 2.0-12.0 [facility] CenterFxlifphBYMXKHWJPD0430-99-53 21:07:00 Test Item Value Reference Range Interpretation Comments Eosinophils (test code = 4.0 See_Comment [A utomated message] The Eosinophils) system which ge nerated this result tra nsmitted reference range : <=4.0. The reference r corazon was not used to int erpret this result as normal/abnormal . [facility] CenterGleagdvGJAMEDYSHU3282-10-77 21:07:00 Test Item Value Reference Range Interpretation Comments PT (test code = PT) 13.3 s 12.0-14.7 [facility] CenterFjwfzqqWDCJTJKJHV3594-55-98 21:07:00 Test Item Value Reference Range Interpretation Comments Hgb (test code = Hgb) 11.1 12.0-16.0 [facility] CenterKeohaaqOGEBGIOZIH7782-31-86 21:07:00 Test Item Value Reference Range Interpretation Comments Hct (test code = Hct) 33.7 36.0-48.0 [facility] CenterHgxpfylDKTLLSLYNB4816-74-74 21:07:00 Test Item Value Reference Range Interpretation Comments RBC (test code = RBC) 4.04 4.20-5.40 [facility] CenterGoxuxirLYKKQEMOCF6869-41-83 21:07:00 Test Item Value Reference Range Interpretation Comments WBC (test code = WBC) 5.8 3.7-10.4 [facility] CenterRtoubimNUBDCLTXOE6123-77-61 21:07:00 Test Item Value Reference Range Interpretation Comments RDW (test code = RDW) 17.2 11.5-14.5 [facility] CenterGljkmgsQETNGRJKQZ3230-88-09 21:07:00 Test Item Value Reference Range Interpretation Comments Platelet (test code = Platelet) 365 133-450 [facility] CenterXtzpoqdSXQUFWOOSN5715-75-99 21:07:00 Test Item Value Reference Range Interpretation Comments MCHC (test code = MCHC) 32.9 32.0-36.0 [facility] CenterBqpbimyROVHIPURGZ4903-56-63 21:07:00 Test Item Value Reference Range Interpretation Comments MCV (test code = MCV) 83.5 80.0-98.0 [facility] CenterQdihvrcCMBXIKYLHE0025-12-91 21:07:00 Test Item Value Reference Range Interpretation Comments MCH (test code = MCH) 27.5 pg 27.0-31.0 [facility] CenterTbeuxoaNRSQMGXBBM2737-10-06 21:07:00 Test Item Value Reference Range Interpretation Comments MPV (test code = MPV) 8.4 7.4-10.4 [facility] CenterTqakmipCDXXLGGPHF6127-32-37 21:07:00 Test Item Value Reference Range Interpretation Comments Segs (test code = Segs) 56.3 45.0-75.0 [facility] CenterWeraqjvRCLADDSYDP4221-41-38 21:07:00 Test Item Value Reference Range Interpretation Comments Lymphocytes (test code = Lymphocytes) 29.4 20.0-40.0 [facility] CenterFuyguofTNVZDTTNZV0777-47-18 21:07:00 Test Item Value Reference Range Interpretation Comments Monocytes (test code = Monocytes) 9.6 2.0-12.0 [facility] CenterSuiuauwNYJMIMWKWI8968-02-91 21:07:00 Test Item Value Reference Range Interpretation Comments Eosinophils (test code = 4.0 See_Comment [A utomated message] The Eosinophils) system which ge nerated this result tra nsmitted reference range : <=4.0. The reference r corazon was not used to int erpret this result as normal/abnormal . [facility] CenterPmldbbtBTYEHTJZHN5142-59-38 21:07:00 Test Item Value Reference Range Interpretation Comments Basophils (test code = 0.7 See_Comment [Aut omated message] The Basophils) system which ge nerated this result tra nsmitted reference range : <=1.0. The reference r corazon was not used to int erpret this result as normal/abnormal . [facility] CenterFfzrwnzBCHQQVYFQR4838-73-30 21:07:00 Test Item Value Reference Range Interpretation Comments Neutrophils # (test code = Neutrophils 3.3 1.5-8.1 #) [facility] CenterPyysqoeSLHAIEWQJW6307-52-43 21:07:00 Test Item Value Reference Range Interpretation Comments Lymphocytes # (test code = Lymphocytes 1.7 1.0-5.5 #) [facility] CenterJqswjvsBYUJNBZLTW8671-24-08 21:07:00 Test Item Value Reference Range Interpretation Comments Monocytes # (test code 0.6 See_Comment [Aut omated message] The = Monocytes #) system which generated this result tra nsmitted reference range : <=0.8. The reference r corazon was not used to int erpret this result as normal/abnormal . [facility] CenterYghmfzrMBWZDTVGNR3741-41-84 21:07:00 Test Item Value Reference Range Interpretation Comments Eosinophils # (test code 0.2 See_Comment [A utomated message] The = Eosinophils #) system whic h generated this result tra nsmitted reference range : <=0.5. The reference r corazon was not used to int erpret this result as normal/abnormal . [facility]2019-01-10 21:07:00 Test Item Value Reference Range Interpretation Comments eGFR (test code = eGFR) 109 [facility]2019-01-10 21:07:00 Test Item Value Reference Range Interpretation Comments Chloride Lvl (test code = Chloride Lvl) 112 95-109 [facility]2019-01-10 21:07:00 Test Item Value Reference Range Interpretation Comments CO2 (test code = CO2) 23 24-32 [facility]2019-01-10 21:07:00 Test Item Value Reference Range Interpretation Comments Creatinine Lvl (test code = Creatinine 0.58 0.50-1.40 Lvl) [facility]2019-01-10 21:07:00 Test Item Value Reference Range Interpretation Comments Sodium Lvl (test code = Sodium Lvl) 144 135-145 [facility]2019-01-10 21:07:00 Test Item Value Reference Range Interpretation Comments Potassium Lvl (test code = Potassium 4.4 3.5-5.1 Lvl) [facility]2019-01-10 21:07:00 Test Item Value Reference Range Interpretation Comments Calcium Lvl (test code = Calcium Lvl) 8.6 8.5-10.5 [facility]2019-01-10 21:07:00 Test Item Value Reference Range Interpretation Comments BUN (test code = BUN) 7 7-22 [facility]2019-01-10 21:07:00 Test Item Value Reference Range Interpretation Comments Glucose Lvl (test code = Glucose Lvl) 107 70-99 [facility]2019-01-10 21:07:00 Test Item Value Reference Range Interpretation Comments AGAP (test code = AGAP) 13.4 10.0-20.0 [facility] CenterQrnpnfuTJUXDUKUGO8152-26-16 21:07:00 Test Item Value Reference Range Interpretation Comments Estimated % Lysis Rapid 2.1 See_Comment [Au tomated message] The (test code = Estimated syste m which generated % Lysis Rapid) this result t ransmitted reference range : <=7.5. The reference r corazon was not used to int erpret this result as normal/abnormal . [facility] CenterVcsiyblHFIYHJVLZF5235-53-11 21:07:00 Test Item Value Reference Range Interpretation Comments Angle Rapid (test code = Angle 75 degrees 64-80 Rapid) [facility] CenterWggjueePAVVTNRFZG7715-98-07 21:07:00 Test Item Value Reference Range Interpretation Comments G-value Rapid (test code = G-value 8.6 5.0-11.6 Rapid) [facility] CenterWkbckvnIOCCHDPYXL0433-79-09 21:07:00 Test Item Value Reference Range Interpretation Comments Max Amplitude Rapid (test code = Max 63 mm 52-71 Amplitude Rapid) [facility] CenterWkqulbtWOMUQWVNGQ8559-08-87 21:07:00 Test Item Value Reference Range Interpretation Comments R-time Rapid (test code = R-time 0.7 min 0.4-0.7 Rapid) [facility] CenterLccfpmbLCZMIKWKTW3523-15-37 21:07:00 Test Item Value Reference Range Interpretation Comments K-time Rapid (test code = K-time 1.2 min 0.6-2.3 Rapid) [facility] CenterHfqwyhpKYEZDNDROW8258-52-96 21:07:00 Test Item Value Reference Range Interpretation Comments ACT (TEG) Rapid (test code = ACT (TEG) 113 s 86-118 Rapid) [facility] CenterAnecrmuEZTJKEMPMR6877-64-95 21:07:00 Test Item Value Reference Range Interpretation Comments Split Point Rapid (test code = Split 0.6 min Point Rapid) [facility] CenterLnghoevQTZYZHCTHT6762-77-68 21:07:00 Test Item Value Reference Range Interpretation Comments PTT (test code = PTT) 30.6 s 22.9-35.8 [facility] CenterZibwduoQCRWIDYPXH2477-56-61 21:07:00 Test Item Value Reference Range Interpretation Comments INR (test code = INR) 1.03 1 0.85-1.17 [facility] CenterMdnpcicTFXBNNBUXJ6400-47-88 21:07:00 Test Item Value Reference Range Interpretation Comments PT (test code = PT) 13.3 s 12.0-14.7 [facility] CenterBcutoliGCXMMXSABJ4388-86-27 21:07:00 Test Item Value Reference Range Interpretation Comments Hgb (test code = Hgb) 11.1 12.0-16.0 [facility] CenterZgedaphOERYKWKLFL9659-04-51 21:07:00 Test Item Value Reference Range Interpretation Comments Hct (test code = Hct) 33.7 36.0-48.0 [facility] CenterBixcbvqYMDQIFGNAG2234-35-99 21:07:00 Test Item Value Reference Range Interpretation Comments RBC (test code = RBC) 4.04 4.20-5.40 [facility] CenterGkkevotZIODWHRFAK3985-82-64 21:07:00 Test Item Value Reference Range Interpretation Comments WBC (test code = WBC) 5.8 3.7-10.4 [facility] CenterKrrbbwcNQHUFHIIZB3400-83-44 21:07:00 Test Item Value Reference Range Interpretation Comments RDW (test code = RDW) 17.2 11.5-14.5 [facility] CenterOcvcfguXUFNNFEYQE0306-79-02 21:07:00 Test Item Value Reference Range Interpretation Comments Platelet (test code = Platelet) 365 133-450 [facility] CenterBaadepdKRSQWOUFZE7942-76-04 21:07:00 Test Item Value Reference Range Interpretation Comments MCHC (test code = MCHC) 32.9 32.0-36.0 [facility] CenterEienlduBHXXUEDQWA6947-27-33 21:07:00 Test Item Value Reference Range Interpretation Comments MCV (test code = MCV) 83.5 80.0-98.0 [facility] CenterPzxjzsdNUXOXQTFQE5536-95-36 21:07:00 Test Item Value Reference Range Interpretation Comments MCH (test code = MCH) 27.5 pg 27.0-31.0 [facility] CenterRunnahnMKCYSHXWFI1836-05-35 21:07:00 Test Item Value Reference Range Interpretation Comments MPV (test code = MPV) 8.4 7.4-10.4 [facility] CenterRxcdtbxAIPPSFHFTS9591-42-66 21:07:00 Test Item Value Reference Range Interpretation Comments Segs (test code = Segs) 56.3 45.0-75.0 [facility] CenterCrtvlvwKGRZRTFRIU6531-61-45 21:07:00 Test Item Value Reference Range Interpretation Comments Lymphocytes (test code = Lymphocytes) 29.4 20.0-40.0 [facility] CenterFvjdqfcDIUINNNQDE3311-69-03 21:07:00 Test Item Value Reference Range Interpretation Comments Monocytes (test code = Monocytes) 9.6 2.0-12.0 [facility] CenterBvispmgDMSCCXYSKR2040-63-16 21:07:00 Test Item Value Reference Range Interpretation Comments Eosinophils (test code = 4.0 See_Comment [A utomated message] The Eosinophils) system which ge nerated this result tra nsmitted reference range : <=4.0. The reference r corazon was not used to int erpret this result as normal/abnormal . [facility] CenterNvyttqeWLDZZEWOCD7567-53-47 21:07:00 Test Item Value Reference Range Interpretation Comments Basophils (test code = 0.7 See_Comment [Aut omated message] The Basophils) system which ge nerated this result tra nsmitted reference range : <=1.0. The reference r corazon was not used to int erpret this result as normal/abnormal . [facility] CenterSgbzqqxTMALDZUITA3740-72-59 21:07:00 Test Item Value Reference Range Interpretation Comments Neutrophils # (test code = Neutrophils 3.3 1.5-8.1 #) [facility] CenterOofecpuUTSLLXKERM0278-19-79 21:07:00 Test Item Value Reference Range Interpretation Comments Lymphocytes # (test code = Lymphocytes 1.7 1.0-5.5 #) [facility] CenterEljfihmAFHHQMTRIL8167-34-26 21:07:00 Test Item Value Reference Range Interpretation Comments Monocytes # (test code 0.6 See_Comment [Aut omated message] The = Monocytes #) system which generated this result tra nsmitted reference range : <=0.8. The reference r corazon was not used to int erpret this result as normal/abnormal . [facility] CenterBwmmdlnHDATXVFKBC1844-70-34 21:07:00 Test Item Value Reference Range Interpretation Comments Eosinophils # (test code 0.2 See_Comment [A utomated message] The = Eosinophils #) system whic h generated this result tra nsmitted reference range : <=0.5. The reference r corazon was not used to int erpret this result as normal/abnormal . [facility]2019-01-10 21:07:00 Test Item Value Reference Range Interpretation Comments eGFR (test code = eGFR) 109 [facility]2019-01-10 21:07:00 Test Item Value Reference Range Interpretation Comments Chloride Lvl (test code = Chloride Lvl) 112 95-109 [facility]2019-01-10 21:07:00 Test Item Value Reference Range Interpretation Comments CO2 (test code = CO2) 23 24-32 [facility]2019-01-10 21:07:00 Test Item Value Reference Range Interpretation Comments Creatinine Lvl (test code = Creatinine 0.58 0.50-1.40 Lvl) [facility]2019-01-10 21:07:00 Test Item Value Reference Range Interpretation Comments Sodium Lvl (test code = Sodium Lvl) 144 135-145 [facility]2019-01-10 21:07:00 Test Item Value Reference Range Interpretation Comments Potassium Lvl (test code = Potassium 4.4 3.5-5.1 Lvl) [facility]2019-01-10 21:07:00 Test Item Value Reference Range Interpretation Comments Calcium Lvl (test code = Calcium Lvl) 8.6 8.5-10.5 [facility]2019-01-10 21:07:00 Test Item Value Reference Range Interpretation Comments BUN (test code = BUN) 7 7-22 [facility]2019-01-10 21:07:00 Test Item Value Reference Range Interpretation Comments Glucose Lvl (test code = Glucose Lvl) 107 70-99 [facility]2019-01-10 21:07:00 Test Item Value Reference Range Interpretation Comments AGAP (test code = AGAP) 13.4 10.0-20.0 [facility] CenterVrkkdswVPKADBTHSK5970-50-58 21:07:00 Test Item Value Reference Range Interpretation Comments Estimated % Lysis Rapid 2.1 See_Comment [Au tomated message] The (test code = Estimated syste m which generated % Lysis Rapid) this result t ransmitted reference range : <=7.5. The reference r corazon was not used to int erpret this result as normal/abnormal . [facility] CenterRfttsqxFTEZSBWAHE7520-32-40 21:07:00 Test Item Value Reference Range Interpretation Comments Angle Rapid (test code = Angle 75 degrees 64-80 Rapid) [facility] CenterOpltrkoINKOHRODQJ0905-92-28 21:07:00 Test Item Value Reference Range Interpretation Comments G-value Rapid (test code = G-value 8.6 5.0-11.6 Rapid) [facility] CenterLverbpeFXCGLICOFO9013-68-61 21:07:00 Test Item Value Reference Range Interpretation Comments Max Amplitude Rapid (test code = Max 63 mm 52-71 Amplitude Rapid) [facility] CenterKsbttwbZORCNZUKNH9408-35-01 21:07:00 Test Item Value Reference Range Interpretation Comments R-time Rapid (test code = R-time 0.7 min 0.4-0.7 Rapid) [facility] CenterOobvqtvAIDUETVMHE8675-26-80 21:07:00 Test Item Value Reference Range Interpretation Comments K-time Rapid (test code = K-time 1.2 min 0.6-2.3 Rapid) [facility] CenterTntwncyUYCRLEZLMM4292-19-36 21:07:00 Test Item Value Reference Range Interpretation Comments ACT (TEG) Rapid (test code = ACT (TEG) 113 s 86-118 Rapid) [facility] Cent[id number] 21:07:00 Test Item Value Reference Range Interpretation Comments Split Point Rapid (test code = Split 0.6 min Point Rapid) [facility] CenterEbsfbwiTGWNCERMFK6711-10-39 21:07:00 Test Item Value Reference Range Interpretation Comments PTT (test code = PTT) 30.6 s 22.9-35.8 [facility] CenterQvndxpqDGSSQLVJEE0046-53-13 21:07:00 Test Item Value Reference Range Interpretation Comments INR (test code = INR) 1.03 1 0.85-1.17 [facility] CenterAajfvmaPPXYOFTWUD9379-40-38 21:07:00 Test Item Value Reference Range Interpretation Comments PT (test code = PT) 13.3 s 12.0-14.7 [facility] CenterRbkasdtRJQCAWFAYN8526-68-58 21:07:00 Test Item Value Reference Range Interpretation Comments Hgb (test code = Hgb) 11.1 12.0-16.0 [facility] CenterZkuunnbTYEIJSSSZH8166-42-95 21:07:00 Test Item Value Reference Range Interpretation Comments Hct (test code = Hct) 33.7 36.0-48.0 [facility] CenterHyboxjrKNOUQFDWLD3437-30-79 21:07:00 Test Item Value Reference Range Interpretation Comments RBC (test code = RBC) 4.04 4.20-5.40 [facility] CenterVvwtoksBHDKEZUXUM3015-77-50 21:07:00 Test Item Value Reference Range Interpretation Comments WBC (test code = WBC) 5.8 3.7-10.4 [facility] CenterXtobyetJGNBCRSGNJ8627-08-71 21:07:00 Test Item Value Reference Range Interpretation Comments RDW (test code = RDW) 17.2 11.5-14.5 [facility] CenterYljbpndKCALDXWBWC7156-19-17 21:07:00 Test Item Value Reference Range Interpretation Comments Platelet (test code = Platelet) 365 133-450 [facility] CenterGjmgavhLYRUQLOEAA4963-12-44 21:07:00 Test Item Value Reference Range Interpretation Comments MCHC (test code = MCHC) 32.9 32.0-36.0 [facility] CenterRaanjdiIDIBIDDVXS7401-23-39 21:07:00 Test Item Value Reference Range Interpretation Comments MCV (test code = MCV) 83.5 80.0-98.0 [facility] CenterCnekvshWFFNIRWTCD7035-28-60 21:07:00 Test Item Value Reference Range Interpretation Comments MCH (test code = MCH) 27.5 pg 27.0-31.0 [facility] CenterKzgnadhPFYEMQIOXA5335-47-80 21:07:00 Test Item Value Reference Range Interpretation Comments MPV (test code = MPV) 8.4 7.4-10.4 [facility] CenterFpazmzdIQZXFVRDTR7728-11-00 21:07:00 Test Item Value Reference Range Interpretation Comments Segs (test code = Segs) 56.3 45.0-75.0 [facility] CenterXfsorxsHYBBNQGQKF4438-81-70 21:07:00 Test Item Value Reference Range Interpretation Comments Lymphocytes (test code = Lymphocytes) 29.4 20.0-40.0 [facility] CenterDzckckhEINEZCOSKA4442-83-44 21:07:00 Test Item Value Reference Range Interpretation Comments Monocytes (test code = Monocytes) 9.6 2.0-12.0 [facility] CenterSysuzvwLCHDVXEPGR4740-43-47 21:07:00 Test Item Value Reference Range Interpretation Comments Eosinophils (test code = 4.0 See_Comment [A utomated message] The Eosinophils) system which ge nerated this result tra nsmitted reference range : <=4.0. The reference r corazon was not used to int erpret this result as normal/abnormal . [facility] CenterFlxbvadCSYNIVATGY6410-54-86 21:07:00 Test Item Value Reference Range Interpretation Comments Basophils (test code = 0.7 See_Comment [Aut omated message] The Basophils) system which ge nerated this result tra nsmitted reference range : <=1.0. The reference r corazon was not used to int erpret this result as normal/abnormal . [facility] CenterThxfioaUDPDRJNUCV0514-82-33 21:07:00 Test Item Value Reference Range Interpretation Comments Neutrophils # (test code = Neutrophils 3.3 1.5-8.1 #) [facility] CenterKwudkwrVZVSGYVWWZ2076-72-52 21:07:00 Test Item Value Reference Range Interpretation Comments Lymphocytes # (test code = Lymphocytes 1.7 1.0-5.5 #) [facility] CenterDqzokxoMKSODZTLZL5161-28-73 21:07:00 Test Item Value Reference Range Interpretation Comments Monocytes # (test code 0.6 See_Comment [Aut omated message] The = Monocytes #) system which generated this result tra nsmitted reference range : <=0.8. The reference r corazon was not used to int erpret this result as normal/abnormal . [facility] CenterNqhtkroPERFGBYVXS8718-43-66 21:07:00 Test Item Value Reference Range Interpretation Comments Eosinophils # (test code 0.2 See_Comment [A utomated message] The = Eosinophils #) system whic h generated this result tra nsmitted reference range : <=0.5. The reference r corazon was not used to int erpret this result as normal/abnormal . [facility] [address] [id number] 11:47:00 Test Item Value Reference Range Interpretation Comments Antibody Scrn (test Negative (01/31/18 code = Antibody Scrn) 6:47 AM) [facility] [id number] 11:47:00 Test Item Value Reference Range Interpretation Comments ABO/Rh (test code = ABO/Rh) O POS [facility] [address] [id number] 11:47:00 Test Item Value Reference Range Interpretation Comments Antibody Scrn (test Negative (01/31/18 code = Antibody Scrn) 6:47 AM) [facility] [id number] 11:47:00 Test Item Value Reference Range Interpretation Comments ABO/Rh (test code = ABO/Rh) O POS [facility] [address] [id number] 11:47:00 Test Item Value Reference Range Interpretation Comments Antibody Scrn (test Negative (01/31/18 code = Antibody Scrn) 6:47 AM) [facility] [employer] [facility] [id number] 11:47:00 Test Item Value Reference Range Interpretation Comments ABO/Rh (test code = ABO/Rh) O POS [facility] [address] [id number] 11:47:00 Test Item Value Reference Range Interpretation Comments Antibody Scrn (test Negative (01/31/18 code = Antibody Scrn) 6:47 AM) [facility] [address] [id number] 11:47:00 Test Item Value Reference Range Interpretation Comments ABO/Rh (test code = ABO/Rh) O POS [facility] [employer] [id number] 11:41:00 Test Item Value Reference Range Interpretation Comments eGFR (test code = eGFR) 105 [facility] [employer] [id number] 11:41:00 Test Item Value Reference Range Interpretation Comments Calcium Lvl (test code = Calcium Lvl) 8.3 8.5-10.5 [facility] [employer] [id number] 11:41:00 Test Item Value Reference Range Interpretation Comments Chloride Lvl (test code = Chloride Lvl) 108 95-109 [facility] [employer] [id number] 11:41:00 Test Item Value Reference Range Interpretation Comments CO2 (test code = CO2) 27 24-32 [facility] [employer] [id number] 11:41:00 Test Item Value Reference Range Interpretation Comments Glucose Lvl (test code = Glucose Lvl) 95 70-99 [facility] [employer] [id number] 11:41:00 Test Item Value Reference Range Interpretation Comments Potassium Lvl (test code = Potassium 4.2 3.5-5.1 Lvl) [facility] [employer] [id number] 11:41:00 Test Item Value Reference Range Interpretation Comments Creatinine Lvl (test code = Creatinine 0.65 0.50-1.40 Lvl) [facility] [employer] [id number] 11:41:00 Test Item Value Reference Range Interpretation Comments BUN (test code = BUN) 11 7-22 [facility] [employer] [id number] 11:41:00 Test Item Value Reference Range Interpretation Comments Sodium Lvl (test code = Sodium Lvl) 139 135-145 [facility] [employer] [id number] 11:41:00 Test Item Value Reference Range Interpretation Comments AGAP (test code = AGAP) 8.2 10.0-20.0 [facility] [employer] [id number] 11:41:00 Test Item Value Reference Range Interpretation Comments Lactic Acid Lvl (test code = Lactic 0.8 0.5-2.2 Acid Lvl) [facility] [id number] 11:41:00 Test Item Value Reference Range Interpretation Comments UDS Note (test code = See Note (01/31/18 6:41 UDS Note) AM) [facility] [id number] 11:41:00 Test Item Value Reference Range Interpretation Comments U Cocaine Scr (test Negative *NA*(01/31/18 code = U Cocaine Scr) 6:41 AM) [facility]wayTG [facility] [id number] 11:41:00 Test Item Value Reference Range Interpretation Comments U Benzodiaz Scr (test Negative *NA*(01/31/18 code = U Benzodiaz Scr) 6:41 AM) [facility] [id number] 11:41:00 Test Item Value Reference Range Interpretation Comments U Phencyclidine Scr (test Negative code = U Phencyclidine *NA*(01/31/18 6:41 Scr) AM) [facility] [id number] 11:41:00 Test Item Value Reference Range Interpretation Comments U Opiate Scr (test Negative *NA*(01/31/18 code = U Opiate Scr) 6:41 AM) [facility] [id number] 11:41:00 Test Item Value Reference Range Interpretation Comments U Cannab Scr (test Negative *NA*(01/31/18 code = U Cannab Scr) 6:41 AM) [facility] [id number] 11:41:00 Test Item Value Reference Range Interpretation Comments U Amph Scr (test code Negative *NA*(01/31/18 = U Amph Scr) 6:41 AM) [facility] [id number] 11:41:00 Test Item Value Reference Range Interpretation Comments U Reta Scr (test code Negative *NA*(01/31/18 = U Reta Scr) 6:41 AM) [place] [id number] 11:41:00 Test Item Value Reference Range Interpretation Comments S Preg (test code = S Negative *NA*(01/31/18 Preg) 6:41 AM) [facility] CenterJpkqgkfYAKCWEWSML0810-56-48 11:41:00 Test Item Value Reference Range Interpretation Comments Monocytes # (test code 0.7 See_Comment [Aut omated message] The = Monocytes #) system which generated this result tra nsmitted reference range : <=0.8. The reference r corazon was not used to int erpret this result as normal/abnormal . [facility] CenterYsvdgcaRKQTRRUWEC1232-33-27 11:41:00 Test Item Value Reference Range Interpretation Comments Lymphocytes # (test code = Lymphocytes 2.9 1.0-5.5 #) [facility] CenterXzyofvjSTZNAZZWAO9090-71-87 11:41:00 Test Item Value Reference Range Interpretation Comments Eosinophils # (test code 0.2 See_Comment [A utomated message] The = Eosinophils #) system whic h generated this result tra nsmitted reference range : <=0.5. The reference r corazon was not used to int erpret this result as normal/abnormal . [facility] CenterRknsppiMEMDFVVLKP5183-08-19 11:41:00 Test Item Value Reference Range Interpretation Comments Segs (test code = Segs) 55.3 45.0-75.0 [facility] CenterAkgqzdgUBGWGADBYH3434-06-46 11:41:00 Test Item Value Reference Range Interpretation Comments Lymphocytes (test code = Lymphocytes) 33.5 20.0-40.0 [facility] CenterDilshqrUZASECEPOQ1503-31-15 11:41:00 Test Item Value Reference Range Interpretation Comments Monocytes (test code = Monocytes) 8.5 2.0-12.0 [facility] CenterLvjzouhGAJAOZISBN1519-69-96 11:41:00 Test Item Value Reference Range Interpretation Comments Basophils (test code = 0.4 See_Comment [Aut omated message] The Basophils) system which ge nerated this result tra nsmitted reference range : <=1.0. The reference r corazon was not used to int erpret this result as normal/abnormal . [facility] CenterXcwtixiPUKEHEHUVS7884-20-33 11:41:00 Test Item Value Reference Range Interpretation Comments Eosinophils (test code = 2.3 See_Comment [A utomated message] The Eosinophils) system which ge nerated this result tra nsmitted reference range : <=4.0. The reference r corazon was not used to int erpret this result as normal/abnormal . [facility] CenterWkczwjgQFDZVCZPPC8757-40-72 11:41:00 Test Item Value Reference Range Interpretation Comments Neutrophils # (test code = Neutrophils 4.9 1.5-8.1 #) [facility] CenterZgdbknhXMEQFMJENO9196-27-95 11:41:00 Test Item Value Reference Range Interpretation Comments WBC (test code = WBC) 8.8 3.7-10.4 [facility] CenterHwdojkcTWGIRLJUQL0829-06-38 11:41:00 Test Item Value Reference Range Interpretation Comments MCH (test code = MCH) 28.1 pg 27.0-31.0 [facility] CenterWnytlwqYHCNCOHJOT9382-11-04 11:41:00 Test Item Value Reference Range Interpretation Comments MCHC (test code = MCHC) 32.9 32.0-36.0 [facility] CenterSznfclzHEGFMYALEH6152-08-89 11:41:00 Test Item Value Reference Range Interpretation Comments RDW (test code = RDW) 15.9 11.5-14.5 [facility] CenterOqcwtqsYIJQDGFLWD1736-95-89 11:41:00 Test Item Value Reference Range Interpretation Comments RBC (test code = RBC) 4.10 4.20-5.40 [facility] CenterEidakxtFHKWMARLPO6691-37-60 11:41:00 Test Item Value Reference Range Interpretation Comments Hct (test code = Hct) 34.9 36.0-48.0 [facility] CenterMweurvdNLAXHULTQY4635-97-89 11:41:00 Test Item Value Reference Range Interpretation Comments MCV (test code = MCV) 85.2 80.0-98.0 [facility] CenterGsguajsSJBANZLGJU5730-32-13 11:41:00 Test Item Value Reference Range Interpretation Comments Hgb (test code = Hgb) 11.5 12.0-16.0 [facility] CenterDrmgmhnQQWPWPEJZL8922-30-77 11:41:00 Test Item Value Reference Range Interpretation Comments Platelet (test code = Platelet) 312 133-450 [facility] CenterSgprktlJDKWIRCHFM8849-90-21 11:41:00 Test Item Value Reference Range Interpretation Comments MPV (test code = MPV) 7.7 7.4-10.4 [facility] CenterUxbvlrgEGMXBXBZIW7055-62-66 11:41:00 Test Item Value Reference Range Interpretation Comments ACT (TEG) Rapid (test code = ACT (TEG) 105 s 86-118 Rapid) [facility] CenterRskjznqCZPJYGPLCM7563-08-41 11:41:00 Test Item Value Reference Range Interpretation Comments Angle Rapid (test code = Angle 75 degrees 64-80 Rapid) [facility] CenterEwbagkdHAOTGSWQEE1553-44-04 11:41:00 Test Item Value Reference Range Interpretation Comments K-time Rapid (test code = K-time 1.2 min 0.6-2.3 Rapid) [facility] CenterEvepisyFHOHMAQCHG8896-55-83 11:41:00 Test Item Value Reference Range Interpretation Comments R-time Rapid (test code = R-time 0.6 min 0.4-0.7 Rapid) [facility] CenterZrpkmloDJNZJMRUEQ2496-39-43 11:41:00 Test Item Value Reference Range Interpretation Comments Split Point Rapid (test code = Split 0.4 min Point Rapid) [facility] CenterQhetphtAQQBYXMHFF7137-05-03 11:41:00 Test Item Value Reference Range Interpretation Comments Estimated % Lysis Rapid 1.3 See_Comment [Au tomated message] The (test code = Estimated syste m which generated % Lysis Rapid) this result t ransmitted reference range : <=7.5. The reference r corazon was not used to int erpret this result as normal/abnormal . [facility] CenterBzawlktMRNZUAQZOZ5587-76-24 11:41:00 Test Item Value Reference Range Interpretation Comments G-value Rapid (test code = G-value 8.2 5.0-11.6 Rapid) [facility] CenterOqgswzaRCJEWCLFYL9878-30-89 11:41:00 Test Item Value Reference Range Interpretation Comments Max Amplitude Rapid (test code = Max 62 mm 52-71 Amplitude Rapid) [facility]wayFmzflaiWTCQFKJHZX6895-20-62 11:41:00 Test Item Value Reference Range Interpretation Comments [facility] HIV 4th GEN (test Negative *NA*(01/31/18 code = CDC HIV 4th 6:41 AM) GEN) [place] [id number] 11:41:00 Test Item Value Reference Range Interpretation Comments Ethanol Lvl (test code = Ethanol <3.0 mg/dL Lvl) [place] [id number] 11:41:00 Test Item Value Reference Range Interpretation Comments Etoh (%) (test code = Etoh (%)) <0.003 % [facility] AND [id number] 11:41:00 Test Item Value Reference Range Interpretation Comments UA Sq Epi (test code = UA Sq Epi) Few /LPF [facility] AND [id number] 11:41:00 Test Item Value Reference Range Interpretation Comments UA WBC (test code = UA WBC) 0-2 /HPF [facility] AND [id number] 11:41:00 Test Item Value Reference Range Interpretation Comments UA RBC (test code = 0-2 /HPF See_Comment [Automa maurice message] The UA RBC) system which ge nerated this result tra nsmitted reference range : <=2. The reference range was not used to interpr et this result as juan l/abnormal. [facility] AND [id number] 11:41:00 Test Item Value Reference Range Interpretation Comments UA Bacteria (test code = UA Occasional /HPF Bacteria) [facility] AND [id number] 11:41:00 Test Item Value Reference Range Interpretation Comments UA Urobilinogen (test code = UA 0.2 0.1-1.0 Urobilinogen) [facility] AND [id number] 11:41:00 Test Item Value Reference Range Interpretation Comments UA Blood (test code = Trace *ABN*(01/31/18 UA Blood) 6:41 AM) [facility] AND [id number] 11:41:00 Test Item Value Reference Range Interpretation Comments UA Bili (test code = Negative *NA*(01/31/18 UA Bili) 6:41 AM) [facility] AND [id number] 11:41:00 Test Item Value Reference Range Interpretation Comments UA Glucose (test code Negative (01/31/18 6:41 = UA Glucose) AM) [facility] AND [id number] 11:41:00 Test Item Value Reference Range Interpretation Comments UA pH (test code = UA pH) 7.0 1 5.0-8.0 [facility] AND [id number] 11:41:00 Test Item Value Reference Range Interpretation Comments UA Ketones (test code Negative *NA*(10/30/18 = UA Ketones) 6:41 AM) [facility] AND [id number] 11:41:00 Test Item Value Reference Range Interpretation Comments UA Protein (test code Negative (01/31/18 6:41 = UA Protein) AM) [facility] AND [id number] 11:41:00 Test Item Value Reference Range Interpretation Comments UA Leuk Est (test code Trace *ABN*(01/31/18 = UA Leuk Est) 6:41 AM) [facility] AND [id number] 11:41:00 Test Item Value Reference Range Interpretation Comments UA Nitrite (test code Negative (01/31/18 6:41 = UA Nitrite) AM) [facility] AND [id number] 11:41:00 Test Item Value Reference Range Interpretation Comments UA Spec Grav (test code = UA Spec 1.010 1 Grav) [facility] AND [id number] 11:41:00 Test Item Value Reference Range Interpretation Comments UA Color (test code = Yellow *NA*(01/31/18 UA Color) 6:41 AM) [facility] AND [id number] 11:41:00 Test Item Value Reference Range Interpretation Comments UA Turbidity (test code = Clear (01/31/18 6:41 UA Turbidity) AM) [facility]2018-10-30 11:41:00 Test Item Value Reference Range Interpretation Comments eGFR (test code = eGFR) 105 [facility]2018-10-30 11:41:00 Test Item Value Reference Range Interpretation Comments Calcium Lvl (test code = Calcium Lvl) 8.3 8.5-10.5 [facility]2018-10-30 11:41:00 Test Item Value Reference Range Interpretation Comments Chloride Lvl (test code = Chloride Lvl) 108 95-109 [facility]2018-10-30 11:41:00 Test Item Value Reference Range Interpretation Comments CO2 (test code = CO2) 27 24-32 [facility]2018-10-30 11:41:00 Test Item Value Reference Range Interpretation Comments Glucose Lvl (test code = Glucose Lvl) 95 70-99 [facility]2018-10-30 11:41:00 Test Item Value Reference Range Interpretation Comments Potassium Lvl (test code = Potassium 4.2 3.5-5.1 Lvl) [facility]2018-10-30 11:41:00 Test Item Value Reference Range Interpretation Comments Creatinine Lvl (test code = Creatinine 0.65 0.50-1.40 Lvl) [facility]2018-10-30 11:41:00 Test Item Value Reference Range Interpretation Comments BUN (test code = BUN) 11 7-22 [facility]2018-10-30 11:41:00 Test Item Value Reference Range Interpretation Comments Sodium Lvl (test code = Sodium Lvl) 139 135-145 [facility]2018-10-30 11:41:00 Test Item Value Reference Range Interpretation Comments AGAP (test code = AGAP) 8.2 10.0-20.0 [facility] [id number] 11:41:00 Test Item Value Reference Range Interpretation Comments Lactic Acid Lvl (test code = Lactic 0.8 0.5-2.2 Acid Lvl) [facility] [id number] 11:41:00 Test Item Value Reference Range Interpretation Comments UDS Note (test code = See Note (01/31/18 6:41 UDS Note) AM) [facility] [id number] 11:41:00 Test Item Value Reference Range Interpretation Comments U Cocaine Scr (test Negative *NA*(01/31/18 code = U Cocaine Scr) 6:41 AM) [facility] [id number] 11:41:00 Test Item Value Reference Range Interpretation Comments U Benzodiaz Scr (test Negative *NA*(01/31/18 code = U Benzodiaz Scr) 6:41 AM) [facility] [id number] 11:41:00 Test Item Value Reference Range Interpretation Comments U Phencyclidine Scr (test Negative code = U Phencyclidine *NA*(01/31/18 6:41 Scr) AM) [facility] [id number] 11:41:00 Test Item Value Reference Range Interpretation Comments U Opiate Scr (test Negative *NA*(01/31/18 code = U Opiate Scr) 6:41 AM) [facility] [id number] 11:41:00 Test Item Value Reference Range Interpretation Comments U Cannab Scr (test Negative *NA*(01/31/18 code = U Cannab Scr) 6:41 AM) [facility] [id number] 11:41:00 Test Item Value Reference Range Interpretation Comments U Amph Scr (test code Negative *NA*(01/31/18 = U Amph Scr) 6:41 AM) [facility] [id number] 11:41:00 Test Item Value Reference Range Interpretation Comments U Reta Scr (test code Negative *NA*(01/31/18 = U Reta Scr) 6:41 AM) [place] [id number] 11:41:00 Test Item Value Reference Range Interpretation Comments S Preg (test code = S Negative *NA*(01/31/18 Preg) 6:41 AM) [facility] C[id number] 11:41:00 Test Item Value Reference Range Interpretation Comments Monocytes # (test code 0.7 See_Comment [Aut omated message] The = Monocytes #) system which generated this result tra nsmitted reference range : <=0.8. The reference r corazon was not used to int erpret this result as normal/abnormal . [facility] CenterOncjkwpCQYWWJMRDK9443-74-22 11:41:00 Test Item Value Reference Range Interpretation Comments Lymphocytes # (test code = Lymphocytes 2.9 1.0-5.5 #) [facility] CenterNijgpycZXZFNMERRP7579-54-34 11:41:00 Test Item Value Reference Range Interpretation Comments Eosinophils # (test code 0.2 See_Comment [A utomated message] The = Eosinophils #) system ic h generated this result tra nsmitted reference range : <=0.5. The reference r corazon was not used to int erpret this result as normal/abnormal . [facility] C[id number] 11:41:00 Test Item Value Reference Range Interpretation Comments Segs (test code = Segs) 55.3 45.0-75.0 [facility] CenterLuwrcjtIIOBOTXBAC3608-48-04 11:41:00 Test Item Value Reference Range Interpretation Comments Lymphocytes (test code = Lymphocytes) 33.5 20.0-40.0 [facility] CenterLybxtdaYPMNZJTEKY4138-49-57 11:41:00 Test Item Value Reference Range Interpretation Comments Monocytes (test code = Monocytes) 8.5 2.0-12.0 [facility] CenterBtytegtNLXLZFEVYI9821-24-39 11:41:00 Test Item Value Reference Range Interpretation Comments Basophils (test code = 0.4 See_Comment [Aut omated message] The Basophils) system which ge nerated this result tra nsmitted reference range : <=1.0. The reference r corazon was not used to int erpret this result as normal/abnormal . [facility] CenterMyekxvoZKKJFEAMHN3068-68-12 11:41:00 Test Item Value Reference Range Interpretation Comments Eosinophils (test code = 2.3 See_Comment [A utomated message] The Eosinophils) system which ge nerated this result tra nsmitted reference range : <=4.0. The reference r corazon was not used to int erpret this result as normal/abnormal . [facility]VnrbmagVAIWMURPWH5858-01-28 11:41:00 Test Item Value Reference Range Interpretation Comments Neutrophils # (test code = Neutrophils 4.9 1.5-8.1 #) [facility] CenterFlimcktEAOXDWPQWG4426-61-27 11:41:00 Test Item Value Reference Range Interpretation Comments WBC (test code = WBC) 8.8 3.7-10.4 [facility] CenterUgxwqovMXNHZLRHMH7335-66-97 11:41:00 Test Item Value Reference Range Interpretation Comments MCH (test code = MCH) 28.1 pg 27.0-31.0 [facility] CenterWyyjwjtEWWGAKVCYS0448-73-18 11:41:00 Test Item Value Reference Range Interpretation Comments MCHC (test code = MCHC) 32.9 32.0-36.0 [facility] CenterWtmdvfkNPKTXGPCMR0833-93-37 11:41:00 Test Item Value Reference Range Interpretation Comments RDW (test code = RDW) 15.9 11.5-14.5 [facility] CenterLpshdfqGVFTCVYTHS3640-50-82 11:41:00 Test Item Value Reference Range Interpretation Comments RBC (test code = RBC) 4.10 4.20-5.40 [facility] CenterZsjjqpcPJWCGRRLHA8091-91-61 11:41:00 Test Item Value Reference Range Interpretation Comments Hct (test code = Hct) 34.9 36.0-48.0 [facility] CenterYuubsagRTCNOPNMPK5994-81-87 11:41:00 Test Item Value Reference Range Interpretation Comments MCV (test code = MCV) 85.2 80.0-98.0 [facility] CenterRxheybhKMBSQPKYXF8480-28-25 11:41:00 Test Item Value Reference Range Interpretation Comments Hgb (test code = Hgb) 11.5 12.0-16.0 [facility] CenterPrlxotmNFMKXPEXLB9765-42-41 11:41:00 Test Item Value Reference Range Interpretation Comments Platelet (test code = Platelet) 312 133-450 [facility] CenterHrfmubvRNUGKGFGHU8788-59-56 11:41:00 Test Item Value Reference Range Interpretation Comments MPV (test code = MPV) 7.7 7.4-10.4 [facility] CenterBfekfvqPNKJXRZILS2850-11-90 11:41:00 Test Item Value Reference Range Interpretation Comments ACT (TEG) Rapid (test code = ACT (TEG) 105 s 86-118 Rapid) [facility] CenterRaiuhptNQLQQIPZZY1272-22-18 11:41:00 Test Item Value Reference Range Interpretation Comments Angle Rapid (test code = Angle 75 degrees 64-80 Rapid) [facility] CenterHobipwiIDUMRSMVXA2189-23-33 11:41:00 Test Item Value Reference Range Interpretation Comments K-time Rapid (test code = K-time 1.2 min 0.6-2.3 Rapid) [facility] CenterKkphlwgXTQODVYFDG5422-18-89 11:41:00 Test Item Value Reference Range Interpretation Comments R-time Rapid (test code = R-time 0.6 min 0.4-0.7 Rapid) [facility] CenterQpkzxmyDUWYGUXKVT9536-08-84 11:41:00 Test Item Value Reference Range Interpretation Comments Split Point Rapid (test code = Split 0.4 min Point Rapid) [facility] CenterAcuzwanPBSNJCFZBI1330-91-62 11:41:00 Test Item Value Reference Range Interpretation Comments Estimated % Lysis Rapid 1.3 See_Comment [Au tomated message] The (test code = Estimated syste m which generated % Lysis Rapid) this result t ransmitted reference range : <=7.5. The reference r corazon was not used to int erpret this result as normal/abnormal . [facility] CenterNkcoqthTJTYTNVNXT5603-06-56 11:41:00 Test Item Value Reference Range Interpretation Comments G-value Rapid (test code = G-value 8.2 5.0-11.6 Rapid) [facility] CenterItxyekaFCQEOPZWNZ1248-22-47 11:41:00 Test Item Value Reference Range Interpretation Comments Max Amplitude Rapid (test code = Max 62 mm 52-71 Amplitude Rapid) [facility]SndptbnYVVFOTMVFH6563-84-92 11:41:00 Test Item Value Reference Range Interpretation Comments CDC HIV 4th GEN (test Negative *NA*(01/31/18 code = CDC HIV 4th 6:41 AM) GEN) [place] [id number] 11:41:00 Test Item Value Reference Range Interpretation Comments Ethanol Lvl (test code = Ethanol <3.0 mg/dL Lvl) [place] [id number] 11:41:00 Test Item Value Reference Range Interpretation Comments Etoh (%) (test code = Etoh (%)) <0.003 % [facility] AND [id number] 11:41:00 Test Item Value Reference Range Interpretation Comments UA Sq Epi (test code = UA Sq Epi) Few /LPF [facility] AND [id number] 11:41:00 Test Item Value Reference Range Interpretation Comments UA WBC (test code = UA WBC) 0-2 /HPF [facility] AND [id number] 11:41:00 Test Item Value Reference Range Interpretation Comments UA RBC (test code = 0-2 /HPF See_Comment [Automa maurice message] The UA RBC) system which ge nerated this result tra nsmitted reference range : <=2. The reference range was not used to interpr et this result as juan l/abnormal. [facility] AND [id number] 11:41:00 Test Item Value Reference Range Interpretation Comments UA Bacteria (test code = UA Occasional /HPF Bacteria) [facility] AND [id number] 11:41:00 Test Item Value Reference Range Interpretation Comments UA Urobilinogen (test code = UA 0.2 0.1-1.0 Urobilinogen) [facility] AND [id number] 11:41:00 Test Item Value Reference Range Interpretation Comments UA Blood (test code = Trace *ABN*(01/31/18 UA Blood) 6:41 AM) [facility] AND [id number] 11:41:00 Test Item Value Reference Range Interpretation Comments UA Bili (test code = Negative *NA*(01/31/18 UA Bili) 6:41 AM) [facility] AND [id number] 11:41:00 Test Item Value Reference Range Interpretation Comments UA Glucose (test code Negative (01/31/18 6:41 = UA Glucose) AM) [facility] AND [id number] 11:41:00 Test Item Value Reference Range Interpretation Comments UA pH (test code = UA pH) 7.0 1 5.0-8.0 [facility] AND [id number] 11:41:00 Test Item Value Reference Range Interpretation Comments UA Ketones (test code Negative *NA*(01/31/18 = UA Ketones) 6:41 AM) [facility] AND [id number] 11:41:00 Test Item Value Reference Range Interpretation Comments UA Protein (test code Negative (01/31/18 6:41 = UA Protein) AM) [facility] AND [id number] 11:41:00 Test Item Value Reference Range Interpretation Comments UA Leuk Est (test code Trace *ABN*(01/31/18 = UA Leuk Est) 6:41 AM) [facility] AND [id number] 11:41:00 Test Item Value Reference Range Interpretation Comments UA Nitrite (test code Negative (01/31/18 6:41 = UA Nitrite) AM) [facility] AND [id number] 11:41:00 Test Item Value Reference Range Interpretation Comments UA Spec Grav (test code = UA Spec 1.010 1 Grav) [facility] AND [id number] 11:41:00 Test Item Value Reference Range Interpretation Comments UA Color (test code = Yellow *NA*(01/31/18 UA Color) 6:41 AM) [facility] AND [id number] 11:41:00 Test Item Value Reference Range Interpretation Comments UA Turbidity (test code = Clear (01/31/18 6:41 UA Turbidity) AM) [facility] [id number] 11:41:00 Test Item Value Reference Range Interpretation Comments eGFR (test code = eGFR) 105 [facility]2018-10-30 11:41:00 Test Item Value Reference Range Interpretation Comments Calcium Lvl (test code = Calcium Lvl) 8.3 8.5-10.5 [facility]2018-10-30 11:41:00 Test Item Value Reference Range Interpretation Comments Chloride Lvl (test code = Chloride Lvl) 108 95-109 [facility] [id number] 11:41:00 Test Item Value Reference Range Interpretation Comments CO2 (test code = CO2) 27 24-32 [facility]2018-10-30 11:41:00 Test Item Value Reference Range Interpretation Comments Glucose Lvl (test code = Glucose Lvl) 95 70-99 [facility]2018-10-30 11:41:00 Test Item Value Reference Range Interpretation Comments Potassium Lvl (test code = Potassium 4.2 3.5-5.1 Lvl) [facility]2018-10-30 11:41:00 Test Item Value Reference Range Interpretation Comments Creatinine Lvl (test code = Creatinine 0.65 0.50-1.40 Lvl) [facility]2018-10-30 11:41:00 Test Item Value Reference Range Interpretation Comments BUN (test code = BUN) 11 7-22 [facility]2018-10-30 11:41:00 Test Item Value Reference Range Interpretation Comments Sodium Lvl (test code = Sodium Lvl) 139 135-145 [facility]2018-10-30 11:41:00 Test Item Value Reference Range Interpretation Comments AGAP (test code = AGAP) 8.2 10.0-20.0 [facility]2018-10-30 11:41:00 Test Item Value Reference Range Interpretation Comments Lactic Acid Lvl (test code = Lactic 0.8 0.5-2.2 Acid Lvl) [facility]2018-10-30 11:41:00 Test Item Value Reference Range Interpretation Comments UDS Note (test code = See Note (01/31/18 6:41 UDS Note) AM) [facility]2018-10-30 11:41:00 Test Item Value Reference Range Interpretation Comments U Cocaine Scr (test Negative *NA*(01/31/18 code = U Cocaine Scr) 6:41 AM) [facility]2018-10-30 11:41:00 Test Item Value Reference Range Interpretation Comments U Benzodiaz Scr (test Negative *NA*(01/31/18 code = U Benzodiaz Scr) 6:41 AM) [facility]2018-10-30 11:41:00 Test Item Value Reference Range Interpretation Comments U Phencyclidine Scr (test Negative code = U Phencyclidine *NA*(01/31/18 6:41 Scr) AM) [facility] [id number] 11:41:00 Test Item Value Reference Range Interpretation Comments U Opiate Scr (test Negative *NA*(01/31/18 code = U Opiate Scr) 6:41 AM) [facility] [id number] 11:41:00 Test Item Value Reference Range Interpretation Comments U Cannab Scr (test Negative *NA*(01/31/18 code = U Cannab Scr) 6:41 AM) [facility] [id number] 11:41:00 Test Item Value Reference Range Interpretation Comments U Amph Scr (test code Negative *NA*(01/31/18 = U Amph Scr) 6:41 AM) [facility] [id number] 11:41:00 Test Item Value Reference Range Interpretation Comments U Rtea Scr (test code Negative *NA*(01/31/18 = U Reta Scr) 6:41 AM) [facility]ZhhrnwpGWKBZJMHDKYZF3210-15-15 11:41:00 Test Item Value Reference Range Interpretation Comments S Preg (test code = S Negative *NA*(01/31/18 Preg) 6:41 AM) [facility] CenterPjkfcjlNJPNATEUNR2054-07-93 11:41:00 Test Item Value Reference Range Interpretation Comments Monocytes # (test code 0.7 See_Comment [Aut omated message] The = Monocytes #) system which generated this result tra nsmitted reference range : <=0.8. The reference r corazon was not used to int erpret this result as normal/abnormal . [facility] CenterYuuaeduTLGNMYZREM8172-79-10 11:41:00 Test Item Value Reference Range Interpretation Comments Lymphocytes # (test code = Lymphocytes 2.9 1.0-5.5 #) [facility] CenterOpqaissIWKWSXDDYH5620-08-40 11:41:00 Test Item Value Reference Range Interpretation Comments Eosinophils # (test code 0.2 See_Comment [A utomated message] The = Eosinophils #) system whic h generated this result tra nsmitted reference range : <=0.5. The reference r corazon was not used to int erpret this result as normal/abnormal . [facility] CenterTohcurgBYUYPSKYHO8582-77-49 11:41:00 Test Item Value Reference Range Interpretation Comments Segs (test code = Segs) 55.3 45.0-75.0 [facility] CenterYovhnkeWHOGSDBDHO7809-56-34 11:41:00 Test Item Value Reference Range Interpretation Comments Lymphocytes (test code = Lymphocytes) 33.5 20.0-40.0 [facility] CenterOerqijlZTQAVKKLLQ3669-71-19 11:41:00 Test Item Value Reference Range Interpretation Comments Monocytes (test code = Monocytes) 8.5 2.0-12.0 [facility] CenterCffyeotFEZDIKHMBA6713-15-17 11:41:00 Test Item Value Reference Range Interpretation Comments Basophils (test code = 0.4 See_Comment [Aut omated message] The Basophils) system which ge nerated this result tra nsmitted reference range : <=1.0. The reference r corazon was not used to int erpret this result as normal/abnormal . [facility] CenterXltmectUGFORHDTAY2729-60-06 11:41:00 Test Item Value Reference Range Interpretation Comments Eosinophils (test code = 2.3 See_Comment [A utomated message] The Eosinophils) system which ge nerated this result tra nsmitted reference range : <=4.0. The reference r corazon was not used to int erpret this result as normal/abnormal . [facility] CenterCdnbnhtERNCMBTTZJ8367-27-04 11:41:00 Test Item Value Reference Range Interpretation Comments Neutrophils # (test code = Neutrophils 4.9 1.5-8.1 #) [facility] CenterZhqpygqXBNNWUEIXP5292-09-41 11:41:00 Test Item Value Reference Range Interpretation Comments WBC (test code = WBC) 8.8 3.7-10.4 [facility] CenterFkkfakmVFDYABHLJJ1064-67-20 11:41:00 Test Item Value Reference Range Interpretation Comments MCH (test code = MCH) 28.1 pg 27.0-31.0 [facility] CenterMlbtsxoHKVTPQRNSX6355-51-36 11:41:00 Test Item Value Reference Range Interpretation Comments MCHC (test code = MCHC) 32.9 32.0-36.0 [facility] CenterCmuptkjQWIZHNGGFM2565-40-27 11:41:00 Test Item Value Reference Range Interpretation Comments RDW (test code = RDW) 15.9 11.5-14.5 [facility] CenterBqqxwrcZQKXPCAUAU9528-65-74 11:41:00 Test Item Value Reference Range Interpretation Comments RBC (test code = RBC) 4.10 4.20-5.40 [facility] CenterGdtmggtQKVKELFRLU1803-71-86 11:41:00 Test Item Value Reference Range Interpretation Comments Hct (test code = Hct) 34.9 36.0-48.0 [facility] CenterLyzlxxmKFDARIQQGK5387-31-12 11:41:00 Test Item Value Reference Range Interpretation Comments MCV (test code = MCV) 85.2 80.0-98.0 [facility] CenterRwnadmjRGYYZKBWPV4998-18-43 11:41:00 Test Item Value Reference Range Interpretation Comments Hgb (test code = Hgb) 11.5 12.0-16.0 [facility] CenterSipbdntHLYIMTXDNQ2362-75-39 11:41:00 Test Item Value Reference Range Interpretation Comments Platelet (test code = Platelet) 312 133-450 [facility] CenterApeufpuRHBLTGBTZO9218-28-38 11:41:00 Test Item Value Reference Range Interpretation Comments MPV (test code = MPV) 7.7 7.4-10.4 [facility] CenterXwdzexeWUOCJIQVSG1337-80-52 11:41:00 Test Item Value Reference Range Interpretation Comments ACT (TEG) Rapid (test code = ACT (TEG) 105 s 86-118 Rapid) [facility] CenterBamydseIGNBKFESLO0367-62-28 11:41:00 Test Item Value Reference Range Interpretation Comments Angle Rapid (test code = Angle 75 degrees 64-80 Rapid) [facility] CenterMbisqdbBLJPCEXGWA8361-37-11 11:41:00 Test Item Value Reference Range Interpretation Comments K-time Rapid (test code = K-time 1.2 min 0.6-2.3 Rapid) [facility] CenterRrjkzkpCXTBRZLDXC0973-45-73 11:41:00 Test Item Value Reference Range Interpretation Comments R-time Rapid (test code = R-time 0.6 min 0.4-0.7 Rapid) [facility] Cent[id number] 11:41:00 Test Item Value Reference Range Interpretation Comments Split Point Rapid (test code = Split 0.4 min Point Rapid) [facility] CenterXsynspySGCGTQLHLW6299-51-37 11:41:00 Test Item Value Reference Range Interpretation Comments Estimated % Lysis Rapid 1.3 See_Comment [Au tomated message] The (test code = Estimated syste m which generated % Lysis Rapid) this result t ransmitted reference range : <=7.5. The reference r corazon was not used to int erpret this result as normal/abnormal . [facility] CenterYofgalbIMEKUDHQNX1167-40-78 11:41:00 Test Item Value Reference Range Interpretation Comments G-value Rapid (test code = G-value 8.2 5.0-11.6 Rapid) [facility]wayXivhysbJLYLTYRNEZ7855-36-33 11:41:00 Test Item Value Reference Range Interpretation Comments Max Amplitude Rapid (test code = Max 62 mm 52-71 Amplitude Rapid) [facility] LakewayZwtwolqWGMFDMABGO0564-88-56 11:41:00 Test Item Value Reference Range Interpretation Comments [facility] HIV 4th GEN (test Negative *NA*(01/31/18 code = CDC HIV 4th 6:41 AM) GEN) [facility] LakewayMkdrlnkQGZZSPKDGF0563-78-30 11:41:00 Test Item Value Reference Range Interpretation Comments Ethanol Lvl (test code = Ethanol <3.0 mg/dL Lvl) [facility] LakewayNcrswleHMIEJGEOSV9256-55-94 11:41:00 Test Item Value Reference Range Interpretation Comments Etoh (%) (test code = Etoh (%)) <0.003 % [facility] AND [id number] 11:41:00 Test Item Value Reference Range Interpretation Comments UA Sq Epi (test code = UA Sq Epi) Few /LPF [facility] AND [id number] 11:41:00 Test Item Value Reference Range Interpretation Comments UA WBC (test code = UA WBC) 0-2 /HPF [facility] AND [id number] 11:41:00 Test Item Value Reference Range Interpretation Comments UA RBC (test code = 0-2 /HPF See_Comment [Automa maurice message] The UA RBC) system which ge nerated this result tra nsmitted reference range : <=2. The reference range was not used to interpr et this result as juan l/abnormal. [facility] AND [id number] 11:41:00 Test Item Value Reference Range Interpretation Comments UA Bacteria (test code = UA Occasional /HPF Bacteria) [facility] AND [id number] 11:41:00 Test Item Value Reference Range Interpretation Comments UA Urobilinogen (test code = UA 0.2 0.1-1.0 Urobilinogen) [facility] AND [id number] 11:41:00 Test Item Value Reference Range Interpretation Comments UA Blood (test code = Trace *ABN*(01/31/18 UA Blood) 6:41 AM) [facility] [id number] 11:41:00 Test Item Value Reference Range Interpretation Comments UA Bili (test code = Negative *NA*(01/31/18 UA Bili) 6:41 AM) [facility] [id number] 11:41:00 Test Item Value Reference Range Interpretation Comments UA Glucose (test code Negative (01/31/18 6:41 = UA Glucose) AM) [facility] [id number] 11:41:00 Test Item Value Reference Range Interpretation Comments UA pH (test code = UA pH) 7.0 1 5.0-8.0 [facility] [id number] 11:41:00 Test Item Value Reference Range Interpretation Comments UA Ketones (test code Negative *NA*(01/31/18 = UA Ketones) 6:41 AM) [facility] [id number] 11:41:00 Test Item Value Reference Range Interpretation Comments UA Protein (test code Negative (01/31/18 6:41 = UA Protein) AM) [facility] [id number] 11:41:00 Test Item Value Reference Range Interpretation Comments UA Leuk Est (test code Trace *ABN*(01/31/18 = UA Leuk Est) 6:41 AM) [facility] [id number] 11:41:00 Test Item Value Reference Range Interpretation Comments UA Nitrite (test code Negative (01/31/18 6:41 = UA Nitrite) AM) [facility] [id number] 11:41:00 Test Item Value Reference Range Interpretation Comments UA Spec Grav (test code = UA Spec 1.010 1 Grav) [facility] [id number] 11:41:00 Test Item Value Reference Range Interpretation Comments UA Color (test code = Yellow *NA*(01/31/18 UA Color) 6:41 AM) [facility] [id number] 11:41:00 Test Item Value Reference Range Interpretation Comments UA Turbidity (test code = Clear (01/31/18 6:41 UA Turbidity) AM) [facility] [id number] 11:41:00 Test Item Value Reference Range Interpretation Comments eGFR (test code = eGFR) 105 [facility]2018-10-30 11:41:00 Test Item Value Reference Range Interpretation Comments Calcium Lvl (test code = Calcium Lvl) 8.3 8.5-10.5 [facility]2018-10-30 11:41:00 Test Item Value Reference Range Interpretation Comments Chloride Lvl (test code = Chloride Lvl) 108 95-109 [facility]2018-10-30 11:41:00 Test Item Value Reference Range Interpretation Comments CO2 (test code = CO2) 27 24-32 [facility]2018-10-30 11:41:00 Test Item Value Reference Range Interpretation Comments Glucose Lvl (test code = Glucose Lvl) 95 70-99 [facility]2018-10-30 11:41:00 Test Item Value Reference Range Interpretation Comments Potassium Lvl (test code = Potassium 4.2 3.5-5.1 Lvl) [facility]2018-10-30 11:41:00 Test Item Value Reference Range Interpretation Comments Creatinine Lvl (test code = Creatinine 0.65 0.50-1.40 Lvl) [facility]2018-10-30 11:41:00 Test Item Value Reference Range Interpretation Comments BUN (test code = BUN) 11 7-22 [facility]2018-10-30 11:41:00 Test Item Value Reference Range Interpretation Comments Sodium Lvl (test code = Sodium Lvl) 139 135-145 [facility]2018-10-30 11:41:00 Test Item Value Reference Range Interpretation Comments AGAP (test code = AGAP) 8.2 10.0-20.0 [facility] [id number] 11:41:00 Test Item Value Reference Range Interpretation Comments Lactic Acid Lvl (test code = Lactic 0.8 0.5-2.2 Acid Lvl) [facility]wayTG [facility] [id number] 11:41:00 Test Item Value Reference Range Interpretation Comments UDS Note (test code = See Note (01/31/18 6:41 UDS Note) AM) [facility]way[facility] [id number] 11:41:00 Test Item Value Reference Range Interpretation Comments U Cocaine Scr (test Negative *NA*(01/31/18 code = U Cocaine Scr) 6:41 AM) [facility] [id number] 11:41:00 Test Item Value Reference Range Interpretation Comments U Benzodiaz Scr (test Negative *NA*(01/31/18 code = U Benzodiaz Scr) 6:41 AM) [facility] [id number] 11:41:00 Test Item Value Reference Range Interpretation Comments U Phencyclidine Scr (test Negative code = U Phencyclidine *NA*(01/31/18 6:41 Scr) AM) [facility] [id number] 11:41:00 Test Item Value Reference Range Interpretation Comments U Opiate Scr (test Negative *NA*(01/31/18 code = U Opiate Scr) 6:41 AM) [facility] [id number] 11:41:00 Test Item Value Reference Range Interpretation Comments U Cannab Scr (test Negative *NA*(01/31/18 code = U Cannab Scr) 6:41 AM) [facility]2018-10-30 11:41:00 Test Item Value Reference Range Interpretation Comments U Amph Scr (test code Negative *NA*(01/31/18 = U Amph Scr) 6:41 AM) [facility]2018-10-30 11:41:00 Test Item Value Reference Range Interpretation Comments U Reta Scr (test code Negative *NA*(01/31/18 = U Reta Scr) 6:41 AM) [place] [address]2018-10-30 11:41:00 Test Item Value Reference Range Interpretation Comments S Preg (test code = S Negative *NA*(01/31/18 Preg) 6:41 AM) [facility] CenterHffypuoLYDKSSGHBU5218-29-78 11:41:00 Test Item Value Reference Range Interpretation Comments Monocytes # (test code 0.7 See_Comment [Aut omated message] The = Monocytes #) system which generated this result tra nsmitted reference range : <=0.8. The reference r corazon was not used to int erpret this result as normal/abnormal . [facility] CenterFnxocosUHSJCQBFLO4800-52-68 11:41:00 Test Item Value Reference Range Interpretation Comments Lymphocytes # (test code = Lymphocytes 2.9 1.0-5.5 #) [facility] CenterPxyokwxLIBWUUXBHN3465-03-62 11:41:00 Test Item Value Reference Range Interpretation Comments Eosinophils # (test code 0.2 See_Comment [A utomated message] The = Eosinophils #) system whic h generated this result tra nsmitted reference range : <=0.5. The reference r corazon was not used to int erpret this result as normal/abnormal . [facility] CenterGectmwsAKHPFUVCOW6259-90-52 11:41:00 Test Item Value Reference Range Interpretation Comments Segs (test code = Segs) 55.3 45.0-75.0 [facility] CenterZtnvyaqQUPKGTDNCT3624-23-24 11:41:00 Test Item Value Reference Range Interpretation Comments Lymphocytes (test code = Lymphocytes) 33.5 20.0-40.0 [facility] CenterUoqjqkrQMEERZHYMX6090-25-04 11:41:00 Test Item Value Reference Range Interpretation Comments Monocytes (test code = Monocytes) 8.5 2.0-12.0 [facility] CenterAofteswNQCIONPLPO2784-60-93 11:41:00 Test Item Value Reference Range Interpretation Comments Basophils (test code = 0.4 See_Comment [Aut omated message] The Basophils) system which ge nerated this result tra nsmitted reference range : <=1.0. The reference r corazon was not used to int erpret this result as normal/abnormal . [facility] CenterWeeijlcNGTRPZZIEL2337-78-61 11:41:00 Test Item Value Reference Range Interpretation Comments Eosinophils (test code = 2.3 See_Comment [A utomated message] The Eosinophils) system which ge nerated this result tra nsmitted reference range : <=4.0. The reference r corazon was not used to int erpret this result as normal/abnormal . [facility] CenterIkthyqgBJEQSOKYQE5973-52-11 11:41:00 Test Item Value Reference Range Interpretation Comments Neutrophils # (test code = Neutrophils 4.9 1.5-8.1 #) [facility] CenterVzaubjyDBTXRBXKCT0508-46-07 11:41:00 Test Item Value Reference Range Interpretation Comments WBC (test code = WBC) 8.8 3.7-10.4 [facility] CenterXyzznmbCIDZJNFQMD9143-02-77 11:41:00 Test Item Value Reference Range Interpretation Comments MCH (test code = MCH) 28.1 pg 27.0-31.0 [facility] CenterZrbkqshPISWEBZSDL3390-03-21 11:41:00 Test Item Value Reference Range Interpretation Comments MCHC (test code = MCHC) 32.9 32.0-36.0 [facility] CenterWgybzgcZORFKBSZEO6118-02-05 11:41:00 Test Item Value Reference Range Interpretation Comments RDW (test code = RDW) 15.9 11.5-14.5 [facility] CenterUypjvrdDJOWQDSGKV2035-73-06 11:41:00 Test Item Value Reference Range Interpretation Comments RBC (test code = RBC) 4.10 4.20-5.40 [facility] CenterNjhhbstCFMYWHJZPJ0234-95-78 11:41:00 Test Item Value Reference Range Interpretation Comments Hct (test code = Hct) 34.9 36.0-48.0 [facility] CenterPguzcsjJVLDNOVTAJ4722-00-36 11:41:00 Test Item Value Reference Range Interpretation Comments MCV (test code = MCV) 85.2 80.0-98.0 [facility] CenterDbkgbjvVARXRAUVUV2387-10-52 11:41:00 Test Item Value Reference Range Interpretation Comments Hgb (test code = Hgb) 11.5 12.0-16.0 [facility] CenterLfmxanyEINOPTOFOE5075-51-48 11:41:00 Test Item Value Reference Range Interpretation Comments Platelet (test code = Platelet) 312 133-450 [facility] CenterHqezbcpBCJGKTJETS6764-92-97 11:41:00 Test Item Value Reference Range Interpretation Comments MPV (test code = MPV) 7.7 7.4-10.4 [facility] CenterGzdbmghMNHVAGOGBL0737-64-59 11:41:00 Test Item Value Reference Range Interpretation Comments ACT (TEG) Rapid (test code = ACT (TEG) 105 s 86-118 Rapid) [facility] CenterOiaaoyeKCXAVBHHJN0929-19-81 11:41:00 Test Item Value Reference Range Interpretation Comments Angle Rapid (test code = Angle 75 degrees 64-80 Rapid) [facility] CenterOjhhkkpFYBQEVHSTS9979-81-91 11:41:00 Test Item Value Reference Range Interpretation Comments K-time Rapid (test code = K-time 1.2 min 0.6-2.3 Rapid) [facility] CenterMrflgjvLOTZUKVQLQ9827-49-61 11:41:00 Test Item Value Reference Range Interpretation Comments R-time Rapid (test code = R-time 0.6 min 0.4-0.7 Rapid) [facility] CenterBpubdqhRLOOIXMCXL2070-60-38 11:41:00 Test Item Value Reference Range Interpretation Comments Split Point Rapid (test code = Split 0.4 min Point Rapid) [facility]EpjwssbAJLNBYFHKG6681-56-42 11:41:00 Test Item Value Reference Range Interpretation Comments Estimated % Lysis Rapid 1.3 See_Comment [Au tomated message] The (test code = Estimated syste m which generated % Lysis Rapid) this result t ransmitted reference range : <=7.5. The reference r corazon was not used to int erpret this result as normal/abnormal . [facility] LakewayNdpnnqgGCAZTUWVHW8739-66-93 11:41:00 Test Item Value Reference Range Interpretation Comments G-value Rapid (test code = G-value 8.2 5.0-11.6 Rapid) [facility] LakewayAxdwxwsOVLTOBXOIF4623-04-67 11:41:00 Test Item Value Reference Range Interpretation Comments Max Amplitude Rapid (test code = Max 62 mm 52-71 Amplitude Rapid) [facility] LakewayGlmtqjbUNPYFXTTIA2807-83-65 11:41:00 Test Item Value Reference Range Interpretation Comments [facility] HIV 4th GEN (test Negative *NA*(01/31/18 code = [facility] HIV 4th 6:41 AM) GEN) [facility] LakewayAiodnlmBWOZGIXPBL1731-96-47 11:41:00 Test Item Value Reference Range Interpretation Comments Ethanol Lvl (test code = Ethanol <3.0 mg/dL Lvl) [facility] LakewayFpegvwlRLXCCSNJSR5226-73-53 11:41:00 Test Item Value Reference Range Interpretation Comments Etoh (%) (test code = Etoh (%)) <0.003 % [facility] AND [id number] 11:41:00 Test Item Value Reference Range Interpretation Comments UA Sq Epi (test code = UA Sq Epi) Few /LPF [facility] AND [id number] 11:41:00 Test Item Value Reference Range Interpretation Comments UA WBC (test code = UA WBC) 0-2 /HPF [facility] AND [id number] 11:41:00 Test Item Value Reference Range Interpretation Comments UA RBC (test code = 0-2 /HPF See_Comment [Automa maurice message] The UA RBC) system which ge nerated this result tra nsmitted reference range : <=2. The reference range was not used to interpr et this result as juan l/abnormal. [facility] AND [id number] 11:41:00 Test Item Value Reference Range Interpretation Comments UA Bacteria (test code = UA Occasional /HPF Bacteria) [facility] AND [id number] 11:41:00 Test Item Value Reference Range Interpretation Comments UA Urobilinogen (test code = UA 0.2 0.1-1.0 Urobilinogen) [facility] AND [id number] 11:41:00 Test Item Value Reference Range Interpretation Comments UA Blood (test code = Trace *ABN*(01/31/18 UA Blood) 6:41 AM) [facility] AND [id number] 11:41:00 Test Item Value Reference Range Interpretation Comments UA Bili (test code = Negative *NA*(01/31/18 UA Bili) 6:41 AM) [facility] AND [id number] 11:41:00 Test Item Value Reference Range Interpretation Comments UA Glucose (test code Negative (01/31/18 6:41 = UA Glucose) AM) [facility] AND [id number] 11:41:00 Test Item Value Reference Range Interpretation Comments UA pH (test code = UA pH) 7.0 1 5.0-8.0 [facility] AND [id number] 11:41:00 Test Item Value Reference Range Interpretation Comments UA Ketones (test code Negative *NA*(01/31/18 = UA Ketones) 6:41 AM) [facility] AND [id number] 11:41:00 Test Item Value Reference Range Interpretation Comments UA Protein (test code Negative (01/31/18 6:41 = UA Protein) AM) [facility] AND [id number] 11:41:00 Test Item Value Reference Range Interpretation Comments UA Leuk Est (test code Trace *ABN*(01/31/18 = UA Leuk Est) 6:41 AM) [facility] AND [id number] 11:41:00 Test Item Value Reference Range Interpretation Comments UA Nitrite (test code Negative (01/31/18 6:41 = UA Nitrite) AM) [facility] AND [id number] 11:41:00 Test Item Value Reference Range Interpretation Comments UA Spec Grav (test code = UA Spec 1.010 1 Grav) [facility] AND [id number] 11:41:00 Test Item Value Reference Range Interpretation Comments UA Color (test code = Yellow *NA*(01/31/18 UA Color) 6:41 AM) [facility] [id number] 11:41:00 Test Item Value Reference Range Interpretation Comments UA Turbidity (test code = Clear (01/31/18 6:41 UA Turbidity) AM) [facility] [id number] 11:15:00 Test Item Value Reference Range Interpretation Comments Lipase Lvl (test code = Lipase Lvl) 172 73-393 [facility]2018-03-27 11:15:00 Test Item Value Reference Range Interpretation Comments Globulin (test code = Globulin) 3.5 2.7-4.2 [facility]2018-03-27 11:15:00 Test Item Value Reference Range Interpretation Comments A/G Ratio (test code = A/G Ratio) 1.1 1 0.7-1.6 [facility]2018-03-27 11:15:00 Test Item Value Reference Range Interpretation Comments B/C Ratio (test code = B/C Ratio) 13 1 6-25 [facility]2018-03-27 11:15:00 Test Item Value Reference Range Interpretation Comments AGAP (test code = AGAP) 13.6 10.0-20.0 [facility]2018-03-27 11:15:00 Test Item Value Reference Range Interpretation Comments Total Protein (test code = Total 7.2 6.4-8.4 Protein) [facility]2018-03-27 11:15:00 Test Item Value Reference Range Interpretation Comments Alk Phos (test code = Alk Phos) 56 39-136 [facility]2018-03-27 11:15:00 Test Item Value Reference Range Interpretation Comments Bili Total (test code = Bili Total) 0.2 0.2-1.3 [facility]2018-03-27 11:15:00 Test Item Value Reference Range Interpretation Comments Potassium Lvl (test code = Potassium 3.6 3.5-5.1 Lvl) [facility]2018-03-27 11:15:00 Test Item Value Reference Range Interpretation Comments Sodium Lvl (test code = Sodium Lvl) 139 135-145 [facility]2018-03-27 11:15:00 Test Item Value Reference Range Interpretation Comments Calcium Lvl (test code = Calcium Lvl) 8.9 8.5-10.5 [facility]2018-03-27 11:15:00 Test Item Value Reference Range Interpretation Comments Chloride Lvl (test code = Chloride Lvl) 105 95-109 [facility]2018-03-27 11:15:00 Test Item Value Reference Range Interpretation Comments eGFR (test code = eGFR) 107 [facility]2018-03-27 11:15:00 Test Item Value Reference Range Interpretation Comments ALT (test code = ALT) 24 See_Comment [Auto mated message] The system which ge nerated this result transmit maurice reference range : <=65. The reference range was not used to interpr et this result as juan l/abnormal. [facility]2018-03-27 11:15:00 Test Item Value Reference Range Interpretation Comments AST (test code = AST) 20 See_Comment [Auto mated message] The system which ge nerated this result transmit maurice reference range : <=37. The reference range was not used to interpr et this result as juan l/abnormal. [facility]2018-03-27 11:15:00 Test Item Value Reference Range Interpretation Comments CO2 (test code = CO2) 24 24-32 [facility]2018-03-27 11:15:00 Test Item Value Reference Range Interpretation Comments Albumin Lvl (test code = Albumin Lvl) 3.7 3.5-5.0 [facility]2018-03-27 11:15:00 Test Item Value Reference Range Interpretation Comments Creatinine Lvl (test code = Creatinine 0.63 0.50-1.40 Lvl) [facility]2018-03-27 11:15:00 Test Item Value Reference Range Interpretation Comments BUN (test code = BUN) 8 7-22 [facility]2018-03-27 11:15:00 Test Item Value Reference Range Interpretation Comments Glucose Lvl (test code = Glucose Lvl) 107 70-99 [place] [address]2018-03-27 11:15:00 Test Item Value Reference Range Interpretation Comments S Preg (test code = S Negative *NA*(06/28/17 Preg) 6:15 AM) [facility] CenterFnhaiinDMKEDOEPRP7809-34-28 11:15:00 Test Item Value Reference Range Interpretation Comments RDW (test code = RDW) 15.4 11.5-14.5 [facility] CenterNplzhlfOFCYPQGHLI4099-01-41 11:15:00 Test Item Value Reference Range Interpretation Comments MPV (test code = MPV) 7.7 7.4-10.4 [facility] CenterXebdedgOZMIUUYGKO7722-21-95 11:15:00 Test Item Value Reference Range Interpretation Comments Platelet (test code = Platelet) 355 133-450 [facility] CenterCegkwaxBAQCTIYDKT1557-01-06 11:15:00 Test Item Value Reference Range Interpretation Comments MCV (test code = MCV) 87.1 80.0-98.0 [facility] CenterRhsvlbkZGZZJFAWZU6331-69-98 11:15:00 Test Item Value Reference Range Interpretation Comments Hct (test code = Hct) 37.9 36.0-48.0 [facility] CenterKxuoxuwZXRQWVWPYF9719-78-72 11:15:00 Test Item Value Reference Range Interpretation Comments MCHC (test code = MCHC) 33.3 32.0-36.0 [facility] CenterBsccbmlBIYKZKEQPV4665-91-96 11:15:00 Test Item Value Reference Range Interpretation Comments MCH (test code = MCH) 29.0 pg 27.0-31.0 [facility] CenterOgjzazjFLKJJCWWSY6282-70-86 11:15:00 Test Item Value Reference Range Interpretation Comments Hgb (test code = Hgb) 12.6 12.0-16.0 [facility] CenterFuxrmmlDJSENIGYAO8474-23-70 11:15:00 Test Item Value Reference Range Interpretation Comments RBC (test code = RBC) 4.35 4.20-5.40 [facility] CenterWnitraeGDCPSGBFCJ4253-26-85 11:15:00 Test Item Value Reference Range Interpretation Comments WBC (test code = WBC) 10.7 3.7-10.4 [facility] CenterFomtcyiJRSUYWUFAA6917-11-23 11:15:00 Test Item Value Reference Range Interpretation Comments Monocytes # (test code 0.8 See_Comment [Aut omated message] The = Monocytes #) system which generated this result tra nsmitted reference range : <=0.8. The reference r corazon was not used to int erpret this result as normal/abnormal . [facility] CenterTuqkfnhNMSIQWUBAI3384-11-70 11:15:00 Test Item Value Reference Range Interpretation Comments Eosinophils # (test code 0.2 See_Comment [A utomated message] The = Eosinophils #) system whic h generated this result tra nsmitted reference range : <=0.5. The reference r corazon was not used to int erpret this result as normal/abnormal . [facility] CenterRhgfwmpAVCKZBFMLF9262-90-34 11:15:00 Test Item Value Reference Range Interpretation Comments Segs (test code = Segs) 72.1 45.0-75.0 [facility] CenterJoxspeyAQDOXFSIOQ9952-01-71 11:15:00 Test Item Value Reference Range Interpretation Comments Segs-Bands # (test code = Segs-Bands #) 7.7 1.5-8.1 [facility] CenterEputcikGILEMQUEUG6360-20-67 11:15:00 Test Item Value Reference Range Interpretation Comments Lymphocytes # (test code = Lymphocytes 2.0 1.0-5.5 #) [facility] CenterLbzuvsbNAMYDVNLCU6981-70-69 11:15:00 Test Item Value Reference Range Interpretation Comments Basophils (test code = 0.4 See_Comment [Aut omated message] The Basophils) system which ge nerated this result tra nsmitted reference range : <=1.0. The reference r corazon was not used to int erpret this result as normal/abnormal . [facility] CenterPztjarpDLSOZWPFXQ1647-45-20 11:15:00 Test Item Value Reference Range Interpretation Comments Monocytes (test code = Monocytes) 7.2 2.0-12.0 [facility] CenterFghfnspYVACTVNGLM5870-84-13 11:15:00 Test Item Value Reference Range Interpretation Comments Eosinophils (test code = 1.7 See_Comment [A utomated message] The Eosinophils) system which ge nerated this result tra nsmitted reference range : <=4.0. The reference r corazon was not used to int erpret this result as normal/abnormal . [facility] CenterKdglzygRQDUKHJVLK8406-74-92 11:15:00 Test Item Value Reference Range Interpretation Comments Lymphocytes (test code = Lymphocytes) 18.6 20.0-40.0 [facility]2018-03-27 11:15:00 Test Item Value Reference Range Interpretation Comments UA Color (test code = Colorless *NA*(06/28/17 UA Color) 6:15 AM) [facility]2018-03-27 11:15:00 Test Item Value Reference Range Interpretation Comments UA Spec Grav (test code = UA Spec 1.002 1 Grav) [facility] AND [id number] 11:15:00 Test Item Value Reference Range Interpretation Comments UA Turbidity (test code = Clear (06/28/17 6:15 UA Turbidity) AM) [facility] AND [id number] 11:15:00 Test Item Value Reference Range Interpretation Comments UA pH (test code = UA pH) 6.0 1 5.0-8.0 [facility] AND [id number] 11:15:00 Test Item Value Reference Range Interpretation Comments UA Glucose (test code = UA Negative mg/dL Glucose) [facility] AND [id number] 11:15:00 Test Item Value Reference Range Interpretation Comments UA Protein (test code = UA Negative mg/dL Protein) [facility] AND [id number] 11:15:00 Test Item Value Reference Range Interpretation Comments UA Blood (test code = Moderate *ABN*(06/28/17 UA Blood) 6:15 AM) [facility] AND [id number] 11:15:00 Test Item Value Reference Range Interpretation Comments UA Bili (test code = Negative *NA*(06/28/17 UA Bili) 6:15 AM) [facility] AND [id number] 11:15:00 Test Item Value Reference Range Interpretation Comments UA Nitrite (test code Negative (06/28/17 6:15 = UA Nitrite) AM) [facility] AND [id number] 11:15:00 Test Item Value Reference Range Interpretation Comments UA Hyal Cast (test 1 See_Comment [Automat ed message] The code = UA Hyal Cast) system which generated this result transmit maurcie reference range : <=2. The reference range was not used to interpr et this result as juan l/abnormal. [facility] AND [id number] 11:15:00 Test Item Value Reference Range Interpretation Comments UA Mucus (test code = UA Mucus) Few /LPF [facility] AND [id number] 11:15:00 Test Item Value Reference Range Interpretation Comments UA Urobilinogen (test code = UA <=1.0 mg/dL 0.1-1.0 Urobilinogen) [facility] AND [id number] 11:15:00 Test Item Value Reference Range Interpretation Comments UA Ketones (test code = UA Ketones) Negative [facility] [id number] 11:15:00 Test Item Value Reference Range Interpretation Comments UA Bacteria (test code = UA Occasional /HPF Bacteria) [facility] [id number] 11:15:00 Test Item Value Reference Range Interpretation Comments UA Sq Epi (test code = UA Sq Occasional /LPF Epi) [facility] [id number] 11:15:00 Test Item Value Reference Range Interpretation Comments UA Leuk Est (test Negative (06/28/17 6:15 code = UA Leuk Est) AM) [facility] [id number] 11:15:00 Test Item Value Reference Range Interpretation Comments UA RBC (test code = 2 See_Comment [Automa maurice message] The UA RBC) system which ge nerated this result transmit maurice reference range : <=2. The reference range was not used to interpr et this result as juan l/abnormal. [facility] AND [id number] 11:15:00 Test Item Value Reference Range Interpretation Comments UA WBC (test code = 1 See_Comment [Automa maurice message] The UA WBC) system which ge nerated this result transmit maurice reference range : <=5. The reference range was not used to interpr et this result as juan l/abnormal. [facility] [id number] 11:15:00 Test Item Value Reference Range Interpretation Comments Lipase Lvl (test code = Lipase Lvl) 172 73-393 [facility] [id number] 11:15:00 Test Item Value Reference Range Interpretation Comments Globulin (test code = Globulin) 3.5 2.7-4.2 [facility]2018-03-27 11:15:00 Test Item Value Reference Range Interpretation Comments A/G Ratio (test code = A/G Ratio) 1.1 1 0.7-1.6 [facility]2018-03-27 11:15:00 Test Item Value Reference Range Interpretation Comments B/C Ratio (test code = B/C Ratio) 13 1 6-25 [facility] [id number] 11:15:00 Test Item Value Reference Range Interpretation Comments AGAP (test code = AGAP) 13.6 10.0-20.0 [facility]2018-03-27 11:15:00 Test Item Value Reference Range Interpretation Comments Total Protein (test code = Total 7.2 6.4-8.4 Protein) [facility]2018-03-27 11:15:00 Test Item Value Reference Range Interpretation Comments Alk Phos (test code = Alk Phos) 56 39-136 [facility]2018-03-27 11:15:00 Test Item Value Reference Range Interpretation Comments Bili Total (test code = Bili Total) 0.2 0.2-1.3 [place] [id number] 11:15:00 Test Item Value Reference Range Interpretation Comments Potassium Lvl (test code = Potassium 3.6 3.5-5.1 Lvl) [facility]2018-03-27 11:15:00 Test Item Value Reference Range Interpretation Comments Sodium Lvl (test code = Sodium Lvl) 139 135-145 [facility]2018-03-27 11:15:00 Test Item Value Reference Range Interpretation Comments Calcium Lvl (test code = Calcium Lvl) 8.9 8.5-10.5 [facility]2018-03-27 11:15:00 Test Item Value Reference Range Interpretation Comments Chloride Lvl (test code = Chloride Lvl) 105 95-109 [place] 431188-03-27 11:15:00 Test Item Value Reference Range Interpretation Comments eGFR (test code = eGFR) 107 [facility]2018-03-27 11:15:00 Test Item Value Reference Range Interpretation Comments ALT (test code = ALT) 24 See_Comment [Auto mated message] The system which ge nerated this result transmit maurice reference range : <=65. The reference range was not used to interpr et this result as juan l/abnormal. [facility]2018-03-27 11:15:00 Test Item Value Reference Range Interpretation Comments AST (test code = AST) 20 See_Comment [Auto mated message] The system which ge nerated this result transmit maurice reference range : <=37. The reference range was not used to interpr et this result as juan l/abnormal. [facility]2018-03-27 11:15:00 Test Item Value Reference Range Interpretation Comments CO2 (test code = CO2) 24 24-32 [facility]2018-03-27 11:15:00 Test Item Value Reference Range Interpretation Comments Albumin Lvl (test code = Albumin Lvl) 3.7 3.5-5.0 [facility]2018-03-27 11:15:00 Test Item Value Reference Range Interpretation Comments Creatinine Lvl (test code = Creatinine 0.63 0.50-1.40 Lvl) [facility]2018-03-27 11:15:00 Test Item Value Reference Range Interpretation Comments BUN (test code = BUN) 8 7-22 [facility]2018-03-27 11:15:00 Test Item Value Reference Range Interpretation Comments Glucose Lvl (test code = Glucose Lvl) 107 70-99 [place] [address]2018-03-27 11:15:00 Test Item Value Reference Range Interpretation Comments S Preg (test code = S Negative *NA*(06/28/17 Preg) 6:15 AM) [facility]LhqmgsuZBFIXVGVCK9007-27-39 11:15:00 Test Item Value Reference Range Interpretation Comments RDW (test code = RDW) 15.4 11.5-14.5 [facility] CenterQnjetfiIBZAVFFPHX5889-94-67 11:15:00 Test Item Value Reference Range Interpretation Comments MPV (test code = MPV) 7.7 7.4-10.4 [facility] CenterPvsbpylPMSEMPZYXD4439-03-87 11:15:00 Test Item Value Reference Range Interpretation Comments Platelet (test code = Platelet) 355 133-450 [facility] CenterWlrdwlfAIRQIGNPVC4022-24-46 11:15:00 Test Item Value Reference Range Interpretation Comments MCV (test code = MCV) 87.1 80.0-98.0 [facility]XwxagfrAKECNRDIXM1601-24-02 11:15:00 Test Item Value Reference Range Interpretation Comments Hct (test code = Hct) 37.9 36.0-48.0 [facility] CenterQwxlrfoHWJESUOBDM8354-59-50 11:15:00 Test Item Value Reference Range Interpretation Comments MCHC (test code = MCHC) 33.3 32.0-36.0 [facility] CenterAdotaqoMSDPBKZUQR9219-91-83 11:15:00 Test Item Value Reference Range Interpretation Comments MCH (test code = MCH) 29.0 pg 27.0-31.0 [facility] CenterOjbfywpNSTIMDMMCA3304-85-04 11:15:00 Test Item Value Reference Range Interpretation Comments Hgb (test code = Hgb) 12.6 12.0-16.0 [facility] CenterEqwjmisSVJTMNCFUH5609-33-17 11:15:00 Test Item Value Reference Range Interpretation Comments RBC (test code = RBC) 4.35 4.20-5.40 [facility] CenterXbyoivkJWVCDYEQWP3061-28-01 11:15:00 Test Item Value Reference Range Interpretation Comments WBC (test code = WBC) 10.7 3.7-10.4 [facility] CenterNeljlqaTCLDZLVIZW0182-12-43 11:15:00 Test Item Value Reference Range Interpretation Comments Monocytes # (test code 0.8 See_Comment [Aut omated message] The = Monocytes #) system which generated this result tra nsmitted reference range : <=0.8. The reference r corazon was not used to int erpret this result as normal/abnormal . [facility] CenterOvnxmmxHDEDSTXYFT4324-94-54 11:15:00 Test Item Value Reference Range Interpretation Comments Eosinophils # (test code 0.2 See_Comment [A utomated message] The = Eosinophils #) system whic h generated this result tra nsmitted reference range : <=0.5. The reference r corazon was not used to int erpret this result as normal/abnormal . [facility] CenterHfkvdhkMROHXUDYAY5377-63-13 11:15:00 Test Item Value Reference Range Interpretation Comments Segs (test code = Segs) 72.1 45.0-75.0 [facility] CenterTvtmglnJRZVHTWXTO6914-08-84 11:15:00 Test Item Value Reference Range Interpretation Comments Segs-Bands # (test code = Segs-Bands #) 7.7 1.5-8.1 [facility] CenterKnjstuzQLETIHQWIN1098-65-21 11:15:00 Test Item Value Reference Range Interpretation Comments Lymphocytes # (test code = Lymphocytes 2.0 1.0-5.5 #) [facility] CenterEapotsvBUZUDKFLXC8097-98-15 11:15:00 Test Item Value Reference Range Interpretation Comments Basophils (test code = 0.4 See_Comment [Aut omated message] The Basophils) system which ge nerated this result tra nsmitted reference range : <=1.0. The reference r corazon was not used to int erpret this result as normal/abnormal . [facility] CenterVkhhyfjBJATRETERJ2862-69-56 11:15:00 Test Item Value Reference Range Interpretation Comments Monocytes (test code = Monocytes) 7.2 2.0-12.0 [facility] CenterHnqshqnYKRVUOTPHF4406-67-36 11:15:00 Test Item Value Reference Range Interpretation Comments Eosinophils (test code = 1.7 See_Comment [A utomated message] The Eosinophils) system which ge nerated this result tra nsmitted reference range : <=4.0. The reference r corazon was not used to int erpret this result as normal/abnormal . [facility] CenterUvxxdfgUQPHGQWUHK9502-44-27 11:15:00 Test Item Value Reference Range Interpretation Comments Lymphocytes (test code = Lymphocytes) 18.6 20.0-40.0 [facility] AND [id number] 11:15:00 Test Item Value Reference Range Interpretation Comments UA Color (test code = Colorless *NA*(06/28/17 UA Color) 6:15 AM) [facility] AND [id number] 11:15:00 Test Item Value Reference Range Interpretation Comments UA Spec Grav (test code = UA Spec 1.002 1 Grav) [facility] AND [id number] 11:15:00 Test Item Value Reference Range Interpretation Comments UA Turbidity (test code = Clear (06/28/17 6:15 UA Turbidity) AM) [facility] AND [id number] 11:15:00 Test Item Value Reference Range Interpretation Comments UA pH (test code = UA pH) 6.0 1 5.0-8.0 [facility] AND [id number] 11:15:00 Test Item Value Reference Range Interpretation Comments UA Glucose (test code = UA Negative mg/dL Glucose) [facility] AND [id number] 11:15:00 Test Item Value Reference Range Interpretation Comments UA Protein (test code = UA Negative mg/dL Protein) [facility] AND [id number] 11:15:00 Test Item Value Reference Range Interpretation Comments UA Blood (test code = Moderate *ABN*(06/28/17 UA Blood) 6:15 AM) [facility] AND [id number] 11:15:00 Test Item Value Reference Range Interpretation Comments UA Bili (test code = Negative *NA*(06/28/17 UA Bili) 6:15 AM) [facility] AND [id number] 11:15:00 Test Item Value Reference Range Interpretation Comments UA Nitrite (test code Negative (06/28/17 6:15 = UA Nitrite) AM) [facility] AND [id number] 11:15:00 Test Item Value Reference Range Interpretation Comments UA Hyal Cast (test 1 See_Comment [Automat ed message] The code = UA Hyal Cast) system which generated this result transmit maurice reference range : <=2. The reference range was not used to interpr et this result as juan l/abnormal. [facility] AND [id number] 11:15:00 Test Item Value Reference Range Interpretation Comments UA Mucus (test code = UA Mucus) Few /LPF [facility] AND [id number] 11:15:00 Test Item Value Reference Range Interpretation Comments UA Urobilinogen (test code = UA <=1.0 mg/dL 0.1-1.0 Urobilinogen) [facility] AND [id number] 11:15:00 Test Item Value Reference Range Interpretation Comments UA Ketones (test code = UA Ketones) Negative [facility] AND [id number] 11:15:00 Test Item Value Reference Range Interpretation Comments UA Bacteria (test code = UA Occasional /HPF Bacteria) [facility] AND [id number] 11:15:00 Test Item Value Reference Range Interpretation Comments UA Sq Epi (test code = UA Sq Occasional /LPF Epi) [facility] AND [id number] 11:15:00 Test Item Value Reference Range Interpretation Comments UA Leuk Est (test Negative (06/28/17 6:15 code = UA Leuk Est) AM) [facility] AND [id number] 11:15:00 Test Item Value Reference Range Interpretation Comments UA RBC (test code = 2 See_Comment [Automa maurice message] The UA RBC) system which ge nerated this result transmit maurice reference range : <=2. The reference range was not used to interpr et this result as juan l/abnormal. [facility] AND [id number] 11:15:00 Test Item Value Reference Range Interpretation Comments UA WBC (test code = 1 See_Comment [Automa maurice message] The UA WBC) system which ge nerated this result transmit maurice reference range : <=5. The reference range was not used to interpr et this result as juan l/abnormal. [facility]2018-03-27 11:15:00 Test Item Value Reference Range Interpretation Comments Lipase Lvl (test code = Lipase Lvl) 172 73-393 [facility]2018-03-27 11:15:00 Test Item Value Reference Range Interpretation Comments Globulin (test code = Globulin) 3.5 2.7-4.2 [facility]2018-03-27 11:15:00 Test Item Value Reference Range Interpretation Comments A/G Ratio (test code = A/G Ratio) 1.1 1 0.7-1.6 [facility]2018-03-27 11:15:00 Test Item Value Reference Range Interpretation Comments B/C Ratio (test code = B/C Ratio) 13 1 6-25 [facility]2018-03-27 11:15:00 Test Item Value Reference Range Interpretation Comments AGAP (test code = AGAP) 13.6 10.0-20.0 [facility]2018-03-27 11:15:00 Test Item Value Reference Range Interpretation Comments Total Protein (test code = Total 7.2 6.4-8.4 Protein) [facility]2018-03-27 11:15:00 Test Item Value Reference Range Interpretation Comments Alk Phos (test code = Alk Phos) 56 39-136 [facility]2018-03-27 11:15:00 Test Item Value Reference Range Interpretation Comments Bili Total (test code = Bili Total) 0.2 0.2-1.3 [facility]2018-03-27 11:15:00 Test Item Value Reference Range Interpretation Comments Potassium Lvl (test code = Potassium 3.6 3.5-5.1 Lvl) [facility]2018-03-27 11:15:00 Test Item Value Reference Range Interpretation Comments Sodium Lvl (test code = Sodium Lvl) 139 135-145 [facility]2018-03-27 11:15:00 Test Item Value Reference Range Interpretation Comments Calcium Lvl (test code = Calcium Lvl) 8.9 8.5-10.5 [facility]2018-03-27 11:15:00 Test Item Value Reference Range Interpretation Comments Chloride Lvl (test code = Chloride Lvl) 105 95-109 [facility]2018-03-27 11:15:00 Test Item Value Reference Range Interpretation Comments eGFR (test code = eGFR) 107 [facility]2018-03-27 11:15:00 Test Item Value Reference Range Interpretation Comments ALT (test code = ALT) 24 See_Comment [Auto mated message] The system which ge nerated this result transmit maurice reference range : <=65. The reference range was not used to interpr et this result as juan l/abnormal. [facility]2018-03-27 11:15:00 Test Item Value Reference Range Interpretation Comments AST (test code = AST) 20 See_Comment [Auto mated message] The system which ge nerated this result transmit maurice reference range : <=37. The reference range was not used to interpr et this result as juan l/abnormal. [facility]2018-03-27 11:15:00 Test Item Value Reference Range Interpretation Comments CO2 (test code = CO2) 24 24-32 [facility]2018-03-27 11:15:00 Test Item Value Reference Range Interpretation Comments Albumin Lvl (test code = Albumin Lvl) 3.7 3.5-5.0 [facility]2018-03-27 11:15:00 Test Item Value Reference Range Interpretation Comments Creatinine Lvl (test code = Creatinine 0.63 0.50-1.40 Lvl) [facility]2018-03-27 11:15:00 Test Item Value Reference Range Interpretation Comments BUN (test code = BUN) 8 7-22 [facility]2018-03-27 11:15:00 Test Item Value Reference Range Interpretation Comments Glucose Lvl (test code = Glucose Lvl) 107 70-99 [facility]LVCMWLIQNGXNG7160-72-66 11:15:00 Test Item Value Reference Range Interpretation Comments S Preg (test code = S Negative *NA*(06/28/17 Preg) 6:15 AM) [facility] 11:15:00 Test Item Value Reference Range Interpretation Comments RDW (test code = RDW) 15.4 11.5-14.5 [facility] CenterLzbculqKJYXLGWDYA4157-36-29 11:15:00 Test Item Value Reference Range Interpretation Comments MPV (test code = MPV) 7.7 7.4-10.4 [facility] CenterJnwmnyiGWCPIKOONY9136-53-05 11:15:00 Test Item Value Reference Range Interpretation Comments Platelet (test code = Platelet) 355 133-450 [facility] CenterUcftlqtTVCDROGFXK9533-84-93 11:15:00 Test Item Value Reference Range Interpretation Comments MCV (test code = MCV) 87.1 80.0-98.0 [facility] CenterCwrctouXTHXEWFJAI8173-72-20 11:15:00 Test Item Value Reference Range Interpretation Comments Hct (test code = Hct) 37.9 36.0-48.0 [facility] CenterYajcycbFQCNTUPPNE5338-37-09 11:15:00 Test Item Value Reference Range Interpretation Comments MCHC (test code = MCHC) 33.3 32.0-36.0 [facility] CenterRnlqhvbSXTPNZKJSJ5040-18-17 11:15:00 Test Item Value Reference Range Interpretation Comments MCH (test code = MCH) 29.0 pg 27.0-31.0 [facility] CenterTgwegdsYLDAWNHJLR6437-59-19 11:15:00 Test Item Value Reference Range Interpretation Comments Hgb (test code = Hgb) 12.6 12.0-16.0 [facility] CenterTnahdohFZRSTFHFCJ2942-10-80 11:15:00 Test Item Value Reference Range Interpretation Comments RBC (test code = RBC) 4.35 4.20-5.40 [facility] CenterRtityjvONXSSTIMPH1243-72-31 11:15:00 Test Item Value Reference Range Interpretation Comments WBC (test code = WBC) 10.7 3.7-10.4 [facility] CenterKxupusxZXEWCZUOQE5940-87-64 11:15:00 Test Item Value Reference Range Interpretation Comments Monocytes # (test code 0.8 See_Comment [Aut omated message] The = Monocytes #) system which generated this result tra nsmitted reference range : <=0.8. The reference r corazon was not used to int erpret this result as normal/abnormal . [facility] CenterMhqdvsgEABZLVVNBR4174-84-55 11:15:00 Test Item Value Reference Range Interpretation Comments Eosinophils # (test code 0.2 See_Comment [A utomated message] The = Eosinophils #) system whic h generated this result tra nsmitted reference range : <=0.5. The reference r corazon was not used to int erpret this result as normal/abnormal . [facility] CenterVnnywisWHWPUIOTOK4224-21-31 11:15:00 Test Item Value Reference Range Interpretation Comments Segs (test code = Segs) 72.1 45.0-75.0 [facility] CenterTljyphiYZWKZINOJT1386-18-28 11:15:00 Test Item Value Reference Range Interpretation Comments Segs-Bands # (test code = Segs-Bands #) 7.7 1.5-8.1 [facility] CenterCewulzqZJDXCRHXHV5831-40-65 11:15:00 Test Item Value Reference Range Interpretation Comments Lymphocytes # (test code = Lymphocytes 2.0 1.0-5.5 #) [facility] CenterGqljwlfNJKSKMGCMJ6128-59-99 11:15:00 Test Item Value Reference Range Interpretation Comments Basophils (test code = 0.4 See_Comment [Aut omated message] The Basophils) system which ge nerated this result tra nsmitted reference range : <=1.0. The reference r corazon was not used to int erpret this result as normal/abnormal . [facility] CenterCapihspKLTBZTJMTI9754-60-11 11:15:00 Test Item Value Reference Range Interpretation Comments Monocytes (test code = Monocytes) 7.2 2.0-12.0 [facility] CenterFhoocqdHRKSOCFAHV7338-20-14 11:15:00 Test Item Value Reference Range Interpretation Comments Eosinophils (test code = 1.7 See_Comment [A utomated message] The Eosinophils) system which ge nerated this result tra nsmitted reference range : <=4.0. The reference r corazon was not used to int erpret this result as normal/abnormal . [facility] CenterHwfxfkaFMROPGOZHH8827-43-68 11:15:00 Test Item Value Reference Range Interpretation Comments Lymphocytes (test code = Lymphocytes) 18.6 20.0-40.0 [facility]2018-03-27 11:15:00 Test Item Value Reference Range Interpretation Comments UA Color (test code = Colorless *NA*(06/28/17 UA Color) 6:15 AM) [facility]2018-03-27 11:15:00 Test Item Value Reference Range Interpretation Comments UA Spec Grav (test code = UA Spec 1.002 1 Grav) [facility] AND [id number] 11:15:00 Test Item Value Reference Range Interpretation Comments UA Turbidity (test code = Clear (06/28/17 6:15 UA Turbidity) AM) [facility] AND [id number] 11:15:00 Test Item Value Reference Range Interpretation Comments UA pH (test code = UA pH) 6.0 1 5.0-8.0 [facility] AND [id number] 11:15:00 Test Item Value Reference Range Interpretation Comments UA Glucose (test code = UA Negative mg/dL Glucose) [facility] AND [id number] 11:15:00 Test Item Value Reference Range Interpretation Comments UA Protein (test code = UA Negative mg/dL Protein) [facility] AND [id number] 11:15:00 Test Item Value Reference Range Interpretation Comments UA Blood (test code = Moderate *ABN*(06/28/17 UA Blood) 6:15 AM) [facility] AND [id number] 11:15:00 Test Item Value Reference Range Interpretation Comments UA Bili (test code = Negative *NA*(06/28/17 UA Bili) 6:15 AM) [facility] AND [id number] 11:15:00 Test Item Value Reference Range Interpretation Comments UA Nitrite (test code Negative (06/28/17 6:15 = UA Nitrite) AM) [facility] AND [id number] 11:15:00 Test Item Value Reference Range Interpretation Comments UA Hyal Cast (test 1 See_Comment [Automat ed message] The code = UA Hyal Cast) system which generated this result transmit maurice reference range : <=2. The reference range was not used to interpr et this result as juan l/abnormal. [facility] AND [id number] 11:15:00 Test Item Value Reference Range Interpretation Comments UA Mucus (test code = UA Mucus) Few /LPF [facility] AND [id number] 11:15:00 Test Item Value Reference Range Interpretation Comments UA Urobilinogen (test code = UA <=1.0 mg/dL 0.1-1.0 Urobilinogen) [facility] AND [id number] 11:15:00 Test Item Value Reference Range Interpretation Comments UA Ketones (test code = UA Ketones) Negative [facility] AND [id number] 11:15:00 Test Item Value Reference Range Interpretation Comments UA Bacteria (test code = UA Occasional /HPF Bacteria) [facility] AND [id number] 11:15:00 Test Item Value Reference Range Interpretation Comments UA Sq Epi (test code = UA Sq Occasional /LPF Epi) [facility] AND [id number] 11:15:00 Test Item Value Reference Range Interpretation Comments UA Leuk Est (test Negative (06/28/17 6:15 code = UA Leuk Est) AM) [facility] AND [id number] 11:15:00 Test Item Value Reference Range Interpretation Comments UA RBC (test code = 2 See_Comment [Automa maurice message] The UA RBC) system which ge nerated this result transmit maurice reference range : <=2. The reference range was not used to interpr et this result as juan l/abnormal. [facility] AND [id number] 11:15:00 Test Item Value Reference Range Interpretation Comments UA WBC (test code = 1 See_Comment [Automa maurice message] The UA WBC) system which ge nerated this result transmit maurice reference range : <=5. The reference range was not used to interpr et this result as juan l/abnormal. [facility]2018-03-27 11:15:00 Test Item Value Reference Range Interpretation Comments Lipase Lvl (test code = Lipase Lvl) 172 73-393 [facility]2018-03-27 11:15:00 Test Item Value Reference Range Interpretation Comments Globulin (test code = Globulin) 3.5 2.7-4.2 [facility]2018-03-27 11:15:00 Test Item Value Reference Range Interpretation Comments A/G Ratio (test code = A/G Ratio) 1.1 1 0.7-1.6 [facility]2018-03-27 11:15:00 Test Item Value Reference Range Interpretation Comments B/C Ratio (test code = B/C Ratio) 13 1 6-25 [facility]2018-03-27 11:15:00 Test Item Value Reference Range Interpretation Comments AGAP (test code = AGAP) 13.6 10.0-20.0 [facility]2018-03-27 11:15:00 Test Item Value Reference Range Interpretation Comments Total Protein (test code = Total 7.2 6.4-8.4 Protein) [facility]2018-03-27 11:15:00 Test Item Value Reference Range Interpretation Comments Alk Phos (test code = Alk Phos) 56 39-136 [place] 431188-03-27 11:15:00 Test Item Value Reference Range Interpretation Comments Bili Total (test code = Bili Total) 0.2 0.2-1.3 [place] 431188-03-27 11:15:00 Test Item Value Reference Range Interpretation Comments Potassium Lvl (test code = Potassium 3.6 3.5-5.1 Lvl) [facility]2018-03-27 11:15:00 Test Item Value Reference Range Interpretation Comments Sodium Lvl (test code = Sodium Lvl) 139 135-145 [facility]2018-03-27 11:15:00 Test Item Value Reference Range Interpretation Comments Calcium Lvl (test code = Calcium Lvl) 8.9 8.5-10.5 [facility]2018-03-27 11:15:00 Test Item Value Reference Range Interpretation Comments Chloride Lvl (test code = Chloride Lvl) 105 95-109 [facility]2018-03-27 11:15:00 Test Item Value Reference Range Interpretation Comments eGFR (test code = eGFR) 107 [place] 431188-03-27 11:15:00 Test Item Value Reference Range Interpretation Comments ALT (test code = ALT) 24 See_Comment [Auto mated message] The system which ge nerated this result transmit maurice reference range : <=65. The reference range was not used to interpr et this result as juan l/abnormal. [place] 431188-03-27 11:15:00 Test Item Value Reference Range Interpretation Comments AST (test code = AST) 20 See_Comment [Auto mated message] The system which ge nerated this result transmit maurice reference range : <=37. The reference range was not used to interpr et this result as juan l/abnormal. [place] 431188-03-27 11:15:00 Test Item Value Reference Range Interpretation Comments CO2 (test code = CO2) 24 24-32 [facility]2018-03-27 11:15:00 Test Item Value Reference Range Interpretation Comments Albumin Lvl (test code = Albumin Lvl) 3.7 3.5-5.0 [facility]2018-03-27 11:15:00 Test Item Value Reference Range Interpretation Comments Creatinine Lvl (test code = Creatinine 0.63 0.50-1.40 Lvl) [facility]2018-03-27 11:15:00 Test Item Value Reference Range Interpretation Comments BUN (test code = BUN) 8 7-22 [facility]2018-03-27 11:15:00 Test Item Value Reference Range Interpretation Comments Glucose Lvl (test code = Glucose Lvl) 107 70-99 [place] [address]2018-03-27 11:15:00 Test Item Value Reference Range Interpretation Comments S Preg (test code = S Negative *NA*(06/28/17 Preg) 6:15 AM) [facility] CenterTreuzmgELCGPPNFSI7287-94-14 11:15:00 Test Item Value Reference Range Interpretation Comments RDW (test code = RDW) 15.4 11.5-14.5 [facility] CenterVxwzgxtHHKNREAGYK2452-96-07 11:15:00 Test Item Value Reference Range Interpretation Comments MPV (test code = MPV) 7.7 7.4-10.4 [facility] CenterKyorobzVNGEJRBGVL8441-60-50 11:15:00 Test Item Value Reference Range Interpretation Comments Platelet (test code = Platelet) 355 133-450 [facility] CenterHcoodngLWXPPGYRCX1739-34-67 11:15:00 Test Item Value Reference Range Interpretation Comments MCV (test code = MCV) 87.1 80.0-98.0 [facility] CenterOycbyxvWHEVJGCCQO3797-34-39 11:15:00 Test Item Value Reference Range Interpretation Comments Hct (test code = Hct) 37.9 36.0-48.0 [facility] CenterQogntwrZYFQQOCIWC7422-52-95 11:15:00 Test Item Value Reference Range Interpretation Comments MCHC (test code = MCHC) 33.3 32.0-36.0 [facility] CenterNupdmqtHSBYNABQIW4297-17-09 11:15:00 Test Item Value Reference Range Interpretation Comments MCH (test code = MCH) 29.0 pg 27.0-31.0 [facility] CenterYnsqgetOYHLVLZKMO3353-38-96 11:15:00 Test Item Value Reference Range Interpretation Comments Hgb (test code = Hgb) 12.6 12.0-16.0 [facility] CenterIciqvarLNQXJMZRNL2749-38-27 11:15:00 Test Item Value Reference Range Interpretation Comments RBC (test code = RBC) 4.35 4.20-5.40 [facility] CenterVhfbwyuEGQCUKLCJF7764-33-80 11:15:00 Test Item Value Reference Range Interpretation Comments WBC (test code = WBC) 10.7 3.7-10.4 [facility] CenterHhiaomvXNHFUVVOCZ1921-94-98 11:15:00 Test Item Value Reference Range Interpretation Comments Monocytes # (test code 0.8 See_Comment [Aut omated message] The = Monocytes #) system which generated this result tra nsmitted reference range : <=0.8. The reference r corazon was not used to int erpret this result as normal/abnormal . [facility] CenterZmqbqexWILIUOALCY5529-68-47 11:15:00 Test Item Value Reference Range Interpretation Comments Eosinophils # (test code 0.2 See_Comment [A utomated message] The = Eosinophils #) system whic h generated this result tra nsmitted reference range : <=0.5. The reference r corazon was not used to int erpret this result as normal/abnormal . [id number] 11:15:00 Test Item Value Reference Range Interpretation Comments Segs (test code = Segs) 72.1 45.0-75.0 [facility] [id number] 11:15:00 Test Item Value Reference Range Interpretation Comments Segs-Bands # (test code = Segs-Bands #) 7.7 1.5-8.1 [facility] [id number] 11:15:00 Test Item Value Reference Range Interpretation Comments Lymphocytes # (test code = Lymphocytes 2.0 1.0-5.5 #) [facility] [id number] 11:15:00 Test Item Value Reference Range Interpretation Comments Basophils (test code = 0.4 See_Comment [Aut omated message] The Basophils) system which ge nerated this result tra nsmitted reference range : <=1.0. The reference r corazon was not used to int erpret this result as normal/abnormal . [facility] [id number] 11:15:00 Test Item Value Reference Range Interpretation Comments Monocytes (test code = Monocytes) 7.2 2.0-12.0 [facility] [id number] 11:15:00 Test Item Value Reference Range Interpretation Comments Eosinophils (test code = 1.7 See_Comment [A utomated message] The Eosinophils) system which ge nerated this result tra nsmitted reference range : <=4.0. The reference r corazon was not used to int erpret this result as normal/abnormal . [facility] [id number] 11:15:00 Test Item Value Reference Range Interpretation Comments Lymphocytes (test code = Lymphocytes) 18.6 20.0-40.0 [facility]2018-03-27 11:15:00 Test Item Value Reference Range Interpretation Comments UA Color (test code = Colorless *NA*(06/28/17 UA Color) 6:15 AM) [facility] AND [id number] 11:15:00 Test Item Value Reference Range Interpretation Comments UA Spec Grav (test code = UA Spec 1.002 1 Grav) [facility] AND [id number] 11:15:00 Test Item Value Reference Range Interpretation Comments UA Turbidity (test code = Clear (06/28/17 6:15 UA Turbidity) AM) [facility] AND [id number] 11:15:00 Test Item Value Reference Range Interpretation Comments UA pH (test code = UA pH) 6.0 1 5.0-8.0 [facility] AND [id number] 11:15:00 Test Item Value Reference Range Interpretation Comments UA Glucose (test code = UA Negative mg/dL Glucose) [facility] AND [id number] 11:15:00 Test Item Value Reference Range Interpretation Comments UA Protein (test code = UA Negative mg/dL Protein) [facility] AND [id number] 11:15:00 Test Item Value Reference Range Interpretation Comments UA Blood (test code = Moderate *ABN*(06/28/17 UA Blood) 6:15 AM) [facility] AND [id number] 11:15:00 Test Item Value Reference Range Interpretation Comments UA Bili (test code = Negative *NA*(06/28/17 UA Bili) 6:15 AM) [facility] AND [id number] 11:15:00 Test Item Value Reference Range Interpretation Comments UA Nitrite (test code Negative (06/28/17 6:15 = UA Nitrite) AM) [facility] AND [id number] 11:15:00 Test Item Value Reference Range Interpretation Comments UA Hyal Cast (test 1 See_Comment [Automat ed message] The code = UA Hyal Cast) system which generated this result transmit maurice reference range : <=2. The reference range was not used to interpr et this result as juan l/abnormal. [facility] AND [id number] 11:15:00 Test Item Value Reference Range Interpretation Comments UA Mucus (test code = UA Mucus) Few /LPF [facility] AND [id number] 11:15:00 Test Item Value Reference Range Interpretation Comments UA Urobilinogen (test code = UA <=1.0 mg/dL 0.1-1.0 Urobilinogen) [facility] AND [id number] 11:15:00 Test Item Value Reference Range Interpretation Comments UA Ketones (test code = UA Ketones) Negative [facility] AND [id number] 11:15:00 Test Item Value Reference Range Interpretation Comments UA Bacteria (test code = UA Occasional /HPF Bacteria) [facility] AND [id number] 11:15:00 Test Item Value Reference Range Interpretation Comments UA Sq Epi (test code = UA Sq Occasional /LPF Epi) [facility] AND [id number] 11:15:00 Test Item Value Reference Range Interpretation Comments UA Leuk Est (test Negative (06/28/17 6:15 code = UA Leuk Est) AM) [facility] AND [id number] 11:15:00 Test Item Value Reference Range Interpretation Comments UA RBC (test code = 2 See_Comment [Automa maurice message] The UA RBC) system which ge nerated this result transmit maurice reference range : <=2. The reference range was not used to interpr et this result as juan l/abnormal. [facility] AND [id number] 11:15:00 Test Item Value Reference Range Interpretation Comments UA WBC (test code = 1 See_Comment [Automa maurice message] The UA WBC) system which [employer] nerated this result transmit maurice reference range : <=5. The reference range was not used to interpr et this result as juan l/abnormal. [facility] Notes Date/Time Note Provider Source 2018-04-13 EXAM: CT BRAIN WITHOUT CONTRAST [facility] 14:33:00-00:00 DATE: 04/13/2018 Center INDICATION: 'Pain trauma' ADDITIONAL INFORMATION: None COMPARISON: Noncontrast head CT 04/13/2018, 01/04 TECHNIQUE: Noncontrast axial CT images were acquired through the brain. 5 mm axial, sagittal, and coronal images were reviewed. IV contrast: None. FINDINGS: Overall unchanged exam cristhian red to the CT earlier the same date. Unchanged right frontal lobe encephalomalacia and gliosis with right frontal convexity extra-axial hyperattenuation and subdural collecti on. The extra-axial hyperatt enuation along the left frontal convexity has increased since 01/31/2018. Stable right anterior and le ft posterior/superior temporal lobe encephalomalacia and gliosis. Thinning and irregularity of the right frontal b one is unchanged. IMPRESSION: Right frontal subdural hemat cosmo with increase in size of the focal internal hyperattenuation since the 01/31/2018 CT, favored to represent superimposed acute intracranial hemorrhage. Unchanged since the noncontrast CT from earlier the same day. 2018-01-31 EXAM: CT HEAD WITH AND WITHOUT CONTRAST [facility] 07:51:00-00:00 DATE: 01/31/2018 8:[address] INDICATION: Subdural hematoma. TECHNIQUE: Multiple axial im ages were obtained through the head from vertex to the skull base. Axial bone algorithm reconstruction images are provided. IV contrast DLP: 2058 mGy-cm COMPARISON: Brain CT 01/31/2018. FINDINGS: Evolving chronic subdural he matoma in the right anterior convexity that is unchanged in size from prior exam. There is associated encephalomalacia and volume loss adjacent to the subdural hematoma. Ence phalomalacia in the left tem poral lobe medial along the medial convexity. The ventricles appear normal in size, with no midline shift, subfalcine, or uncal herniation. The basal cisterns are well preserved. No abnormal enhancement is detected. Mucosal thickening of the le ft ethmoid sinus. The mastoid air cells are well aerated. IMPRESSION: No acute intracranial hemorrhage. Linear areas of increased de nsity along the inferior margin of the right frontal encephalomalacia are thought to be due to scarring. Stable chronic appearing rig ht anterior convexity subdural hematoma with adjacent unchanged encephalomalacia. 2018-01-31 EXAM: CTA BRAIN [facility] 07:51:00-00:00 EXAM: CTA NECK Center DATE: 01/31/2018 7:51 AM CDT INDICATION: - SDH COMPARISON: CT brain of the same day from [facility] TECHNIQUE: Rapid acquisition spiral CT images of [...] The vertebral arteries have a normal course, richard iber and contour. BRAIN CTA: No proximal occlusion, flow limiting stenosis or aneurysm is identified intracranially. No high flow vascular malformation. Stable size of right frontal convexity subdural fluid collection. IMPRESSION: Unremarkable CTA head and neck. (All qualitative and quantit ative assessments of carotid bifurcation and proximal internal carotid artery stenosis are made referencing the distal internal carotid artery {NASCET criteria}.) 2018-01-31 EXAM: XR CHEST 1 VIEW [facility] 06:18:00-00:00 DATE: 01/31/2018 6:[address] INDICATION: - s/p trauma COMPARISON: None. TECHNIQUE: AP chest. FINDINGS: Lines, tubes and hardware: None. Lungs and pleura: The lungs are clear. No pleura l effusion or pneumothorax. Heart and mediastinum: The h eart size is normal for technique. The mediastinal contours are normal. Pulmonary vascularity is normal. Bones and soft tissues: No acute abnormality. IMPRESSION: 1. No acute abnormality. UT SECTION: ER 2017-06-28 EXAM: US PELVIS TRANSABDOMINAL [facility] 08:35:08-00:00 DATE: 06/28/2017 8:28 AM CDT INDICATION: - hx of lt ov cyst, llq pain ADDITIONAL INFORMATION: A1 LMP: May 09018; : No. COMPARISON: None. TECHNIQUE: Multiplanar nicolasa inocencia and color Doppler ultrasound of the pelvis [...]
--- NOTE | 2022-11-10 04:42 | ER ---
Nurse's Notes [facility] Name: Dayami Espinosa Age: 52 yrs Sex: Female : 1970 Arrival Date: 11/10/2022 Time: 01:28 Bed 7 Private MD: Diagnosis: Normal physical examination, right knee pain, chronic arthritis related pain Presentation: 11/10 01:44 Chief complaint: Patient states: left pelvic pain of 10,onset 3 months ago and also C/O pf1 "spot" to right upper inner thigh,onset 3 months ago. Patient stated she has been walking around [facility] a lot for the past 3 hours. Patient stated drank a beer around 2200. Coronavirus screen: Vaccine status: Patient reports being unvaccinated. Client denies travel out of the [place] in the last 14 days. At this time, the client does not indicate any symptoms associated with coronavirus-19. Ebola Screen: Patient negative for fever greater than or equal to 101.5 degrees Fahrenheit, and additional compatible Ebola Virus Disease symptoms. Initial Sepsis Screen: Does the patient meet any 2 criteria? No. Patient's initial sepsis screen is negative. Does the patient have a suspected source of infection? No. Patient's initial sepsis screen is negative. Risk Assessment: Do you want to hurt yourself or someone else? Patient reports no desire to harm self or others. 01:44 Method Of Arrival: EMS: [facility] pf1 01:44 Acuity: JAZMIN 3 pf1 04:53 Onset of symptoms is unknown. lg3 Historical: - Allergies: 01:47 Amoxicillin; pf1 01:47 Pseudoephedrine; pf1 - PMHx: 01:47 Anemia; Bipolar disorder; gastritis; Ovarian cyst; pf1 - PSHx: 01:47 brain surgery; pf1 - Immunization history:: Adult Immunizations up to date, Client reports having NOT received the Covid vaccine. Last tetanus immunization: < 5 years ago Flu vaccine is not up to date. - Social history:: Smoking status: Patient reports the use of cigarette tobacco products, smokes one pack cigarettes per day. Patient uses alcohol, occasionally. Patient/guardian denies using street drugs. - Family history:: not pertinent. Screenin:21 [facility] ED Fall Risk Assessment (Adult) History of falling in the last 3 months, lg3 including since admission No falls in past 3 months (0 pts). Abuse screen: Denies threats or abuse. Denies injuries from another. Nutritional screening: No deficits noted. Tuberculosis screening: No symptoms or risk factors identified. Assessment: 04:21 General: Appears in no apparent distress. comfortable, Behavior is cooperative, lg3 anxious. Pain: Complains of pain in pelvis. Neuro: No deficits noted. Burrows Agitation-Sedation Scale (RASS): 0 - Alert and Calm Level of Consciousness is awake, alert, obeys commands, Oriented to person, place, time, situation. Cardiovascular: No deficits noted. Denies chest pain, shortness of breath, Capillary refill < 3 seconds Clubbing of nail beds is absent JVD is absent Patient's skin is warm and dry. Respiratory: No deficits noted. Airway is patent Respiratory effort is even, unlabored, Respiratory pattern is regular, symmetrical. GI: No deficits noted. No signs and/or symptoms were reported involving the gastrointestinal system. Abdomen is flat, non-distended. : No deficits noted. No signs and/or symptoms were reported regarding the genitourinary system. EENT: No deficits noted. No signs and/or symptoms were reported regarding the EENT system. Derm: No deficits noted. No signs and/or symptoms reported regarding the dermatologic system. Skin is intact, is healthy with good turgor, Skin is dry, Skin is normal, Skin temperature is warm. Musculoskeletal: No deficits noted. Circulation, motion, and sensation intact. Range of motion: intact in all extremities, Reports generalized weakness. 04:52 Reassessment: Patient appears in no apparent distress at this time. No changes from lg3 previously documented assessment. Patient and/or family updated on plan of care and expected duration. Pain level reassessed. Patient is alert, oriented x 3, equal unlabored respirations, skin warm/dry/pink. Vital Signs: 01:44 BP 112 / 77; Pulse 78; Resp 16; Temp 98.2; Pulse Ox 100% on R/A; Weight 52.16 kg; pf1 Height 5 ft. 3 in. ; Pain 10/10; 04:21 BP 121 / 84; Pulse 83; Resp 16 S; Pulse Ox 100% on R/A; lg3 01:44 Body Mass Index 20.37 (52.16 kg, 160.02 cm) pf1 01:44 Pain Scale: Adult pf1 ED Course: 01:32 Patient arrived in ED. jj6 01:41 Arash Mesa MD is Attending Physician. sp4 01:47 Triage completed. pf1 04:20 Basic Metabolic Panel Sent. lg3 04:20 CBC with Diff Sent. lg3 04:20 ETOH Level Sent. lg3 04:21 Hepatic Function Sent. lg3 04:21 PT-INR Sent. lg3 04:21 Ptt, Activated Sent. lg3 04:21 Patient has correct armband on for positive identification. Placed in gown. Bed in low lg3 position. Call light in reach. Side rails up X 1. Client placed on continuous cardiac and pulse oximetry monitoring. NIBP monitoring applied. Door closed. Noise minimized. Warm blanket given. 04:21 Arm band placed on right wrist. lg3 04:52 No provider procedures requiring assistance completed. Patient did not have IV access lg3 during this emergency room visit. Administered Medications: No medications were administered Medication: 04:53 VIS not applicable for this client. lg3 Outcome: 04:41 Discharge ordered by . sp4 04:52 Discharged to home ambulatory. lg3 04:52 Condition: stable 04:52 Discharge instructions given to patient, Instructed on discharge instructions, follow up and referral plans. Demonstrated understanding of instructions, follow-up care. 04:53 Patient left the ED. lg3 Signatures: Annette Villegas, RN RN lg3 Lacey Degroot jj6 Claire Walker, BENI RN pf1 Arash Mesa MD MD sp4 Corrections: (The following items were deleted from the chart) 01:50 01:44 Chief complaint: Patient states: left pelvic pain of 10,onset 3 months ago and pf1 also C/O "spot" to right upper inner thigh,onset 3 months ago. pf1
--- NOTE | 2022-11-10 04:42 | EDPHYS ---
Physician Documentation [facility] Name: Dayami Espinosa Age: 52 yrs Sex: Female : 1970 Arrival Date: 11/10/2022 Time: 01:28 Bed 7 Private MD: ED Physician Arash Mesa HPI: 11/10 01:41 This 52 yrs old Female presents to ER via Unassigned with complaints of sp4 General Weakness, Pelvic Pain. 03:54 52-year-old female presents with EMS with a complaint of a right knee pain in the right sp4 knee given. Patient states this has been a problem for the several months . . 03:55 On initial arrival patient complained of a pelvic pain generalized weakness also sp4 alcohol ingestion. On my exam patient complains of right knee pain. Patient history reveals 99 prior visits to the emergency department for variety of complaints. . Historical: - Allergies: 01:47 Amoxicillin; pf1 01:47 Pseudoephedrine; pf1 - PMHx: 01:47 Anemia; Bipolar disorder; gastritis; Ovarian cyst; pf1 - PSHx: 01:47 brain surgery; pf1 - Immunization history:: Adult Immunizations up to date, Client reports having NOT received the Covid vaccine. Last tetanus immunization: < 5 years ago Flu vaccine is not up to date. - Social history:: Smoking status: Patient reports the use of cigarette tobacco products, smokes one pack cigarettes per day. Patient uses alcohol, occasionally. Patient/guardian denies using street drugs. - Family history:: not pertinent. ROS: 03:55 Constitutional: Negative for fever, chills, and weight loss, MS/Extremity: Negative for sp4 injury and deformity, positive for right knee pain - patient reports right knee pain that is relatively chronic 03:55 All other systems are negative. Exam: 03:55 Constitutional: This is a well developed, well nourished patient who is awake, alert, sp4 and in no acute distress. Head/Face: Normocephalic, atraumatic. Eyes: Pupils equal round and reactive to light, extra-ocular motions intact. Lids and lashes normal. Conjunctiva and sclera are not injected. Cornea within normal limits. Periorbital areas with no swelling, redness, or edema. ENT: Nares patent. No nasal discharge, no septal abnormalities noted. Tympanic membranes are normal and external auditory canals are clear. Oropharynx with no redness, swelling, or masses, exudates, or evidence of obstruction, uvula midline. Mucous membranes moist. Neck: Trachea midline, no thyromegaly or masses palpated, and no cervical lymphadenopathy. Supple, full range of motion without nuchal rigidity, or vertebral point tenderness. Chest/axilla: Normal chest wall appearance and motion. Nontender with no deformity. No lesions are appreciated. Cardiovascular: Regular rate and rhythm with a normal S1 and S2. No gallops, murmurs, or rubs. Normal PMI, no JVD. No pulse deficits. Respiratory: Lungs have equal breath sounds bilaterally, clear to auscultation and percussion. No rales, rhonchi or wheezes noted. No increased work of breathing, no retractions or nasal flaring. Abdomen/GI: Soft, non-tender, with normal bowel sounds. No distension or tympany. No guarding or rebound. No evidence of tenderness throughout. Back: No spinal tenderness. No costovertebral tenderness. Skin: Warm, dry with normal turgor. Normal color with no rashes, no lesions, and no evidence of cellulitis. MS/ Extremity: Pulses equal, no cyanosis. Neurovascular intact. Full, normal range of motion. Neuro: Awake and alert, GCS 15, oriented to person, place, time, and situation. Cranial nerves II-XII grossly intact. Motor strength 5/5 in all extremities. Sensory grossly intact. Psych: Awake, alert, with orientation to person, place and time. Behavior, mood, and affect are within normal limits Vital Signs: 01:44 BP 112 / 77; Pulse 78; Resp 16; Temp 98.2; Pulse Ox 100% on R/A; Weight 52.16 kg; pf1 Height 5 ft. 3 in. ; Pain 10/10; 04:21 BP 121 / 84; Pulse 83; Resp 16 S; Pulse Ox 100% on R/A; lg3 01:44 Body Mass Index 20.37 (52.16 kg, 160.02 cm) pf1 01:44 Pain Scale: Adult pf1 MDM: 01:43 Patient medically screened. sp4 04:39 Differential Diagnosis Osteoarthritis, tendinitis, acute right knee sprain,. Data sp4 reviewed: vital signs, nurses notes, old medical records. ED course: Right knee exam today is completely normal. Patient was informed that we do not see any sign of emergent medical problem at this time. Patient stable for discharge from the emergency department. . 11/10 01:42 Order name: Labs collected and sent; Complete Time: 04:20 sp4 11/10 01:42 Order name: Suicide Screening ([place]); Complete Time: 04:20 sp4 Administered Medications: No medications were administered Disposition Summary: 11/10/22 04:41 Discharge Ordered Location: Home sp4 Problem: new sp4 Symptoms: are unchanged sp4 Condition: Stable sp4 Diagnosis - Normal physical examination, right knee pain, chronic arthritis related pain sp4 Followup: sp4 - With: Private Physician - When: As needed - Reason: Discharge Instructions: - Discharge Summary Sheet sp4 - Medical Screening Exam sp4 Forms: - Patient Portal Instructions sp4 Signatures: Dispatcher [employer] Claire Joseph RN RN pf1 Arash Mesa MD MD sp4 Corrections: (The following items were deleted from the chart) 04:29 01:42 EKG - Nurse/Tech ordered. sp4 lg3
[2022-11-10 05:10] VITALS: TEMP 98.2; O2SAT 100
[2022-11-10 05:12] VITALS: BP 121/84
== END 2022-11-10 04:53 | disposition home or self-care (01) ==
LOC: ER 01:28
DX: M25.561 Pain in right knee (principal); M13.80 Other specified arthritis, unspecified site; R10.2 Pelvic and perineal pain; R53.1 Weakness; F17.210 Nicotine dependence, cigarettes, uncomplicated; Z88.1 Allergy status to other antibiotic agents; Z88.8 Allergy status to other drugs, medicaments and biological substances

== ENCOUNTER 2023-03-13 00:30 | Emergency (ER) | payer SELFPAY ==
[2023-03-13 01:11] LABS: Absolute Lymphocytes (CBC) 3.1 K/uL (0.7-4.9); Hematocrit 39.4 % (36.0-45.0); Lymphocytes % 33.5 % (15.3-44.8); MCV 84.8 fL (80-100); Platelets 288 thou/uL (152-406); RBC Red Blood Cell Count 4.64 M/uL (3.86-4.86)
[2023-03-13 01:20] LABS: Albumin 3.6 g/dL (3.4-5.0); Bilirubin Total 0.3 mg/dL (0.2-1.0); Potassium 3.4 mEq/L (3.5-5.1); Protein, Total 7.9 g/dL (6.4-8.2)
[2023-03-13 02:18] LABS: Specific Gravity 1.007 (1.005-1.030); Urine Bacteria 20-50 /HPF (<20); Urine Bilirubin NEGATIVE (Negative); Urine Blood Negative (Negative); Urine Clarity Extremely Turbid (Clear); Urine Color Colorless (Yellow); Urine Glucose NEGATIVE (Negative); Urine Mucus Slight /HPF (None Seen); Urine Protein NEGATIVE (Negative); Urine RBC <5 /HPF (None Seen); Urine Urobilinogen Normal (Normal); Urine WBC Clump Rare /HPF (None Seen)
--- NOTE | 2023-03-13 02:23 | ER ---
Nurse's Notes [facility] Name: Dayami Espinosa Age: 53 yrs Sex: Female : 1970 Arrival Date: 03/13/2023 Time: 00:30 Bed 7 Private MD: Diagnosis: UTI/ Urinary tract infection, site not specified Presentation: 03/13 00:34 Chief complaint: EMS states: LLQ pain for 3 months that got worse tonight; denies km8 n/v/d. Coronavirus screen: Client denies travel out of the [place] in the last 14 days. Ebola Screen: No symptoms or risks identified at this time. Initial Sepsis Screen: Does the patient meet any 2 criteria? No. Patient's initial sepsis screen is negative. Does the patient have a suspected source of infection? No. Patient's initial sepsis screen is negative. Risk Assessment: Do you want to hurt yourself or someone else? Patient reports no desire to harm self or others. Onset of symptoms was December 03, 2022. 00:34 Method Of Arrival: EMS: [facility] km8 00:34 Acuity: JAZMIN 3 km8 Triage Assessment: 00:36 General: Appears in no apparent distress. comfortable, Behavior is calm, cooperative, km8 appropriate for age. Pain: Complains of pain in left lower quadrant Pain currently is 10 out of 10 on a pain scale. EENT: No signs and/or symptoms were reported regarding the EENT system. Neuro: [place]rows Agitation-Sedation Scale (RASS): 0 - Alert and Calm Level of Consciousness is awake, alert, obeys commands, Oriented to person, place, time, situation. Cardiovascular: Denies chest pain, shortness of breath. Respiratory: Airway is patent Respiratory effort is even, unlabored, Respiratory pattern is regular, symmetrical. GI: Reports lower abdominal pain, Patient currently denies diarrhea, nausea, vomiting. : No signs and/or symptoms were reported regarding the genitourinary system. Denies burning with urination. Derm: No signs and/or symptoms reported regarding the dermatologic system. Skin is intact, is healthy with good turgor, Skin is dry, Skin is pink, warm \T\ dry. normal, Skin temperature is warm. Musculoskeletal: No signs and/or symptoms reported regarding the musculoskeletal system. Circulation, motion, and sensation intact. Range of motion: intact in all extremities. 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 Flu vaccine status is unknown. - Social history:: Smoking status: Patient reports the use of cigarette tobacco products, smokes one-half pack cigarettes per day, Patient uses alcohol, occasionally. Patient/guardian denies using street drugs. - Family history:: not pertinent. Screenin:38 [facility] ED Fall Risk Assessment (Adult) History of falling in the last 3 months, km8 including since admission No falls in past 3 months (0 pts) Confusion or Disorientation No (0 pts) Intoxicated or Sedated No (0 pts) Impaired Gait No (0 pts) Mobility Assist Device Used No (0 pt) Altered Elimination No (0 pt) Score/Fall Risk Level 0 - 2 = Low Risk Oriented to surroundings, Maintained a safe environment, Educated pt \T\ family on fall prevention, incl call for assistance when getting out of bed, Assessed \T\ reinforced patient's understanding of fall precautions. Abuse screen: Denies threats or abuse. Denies injuries from another. Nutritional screening: No deficits noted. Tuberculosis screening: No symptoms or risk factors identified. Assessment: 00:38 General: see triage assessment/notes. 8 01:44 Reassessment: Patient appears in no apparent distress at this time. No changes from 8 previously documented assessment. Patient and/or family updated on plan of care and expected duration. Pain level reassessed. Patient is alert, oriented x 3, equal unlabored respirations, skin warm/dry/pink. 02:44 Reassessment: Patient and/or family updated on plan of care and expected duration. Pain ha1 level reassessed. Patient is alert, oriented x 3, equal unlabored respirations, skin warm/dry/pink. Patient denies pain at this time. Patient states symptoms have improved. Vital Signs: 00:34 BP 124 / 85; Pulse 87; Resp 16; Temp 97.5(O); Pulse Ox 97% on R/A; Weight 52.62 kg (R); km8 Height 5 ft. 3 in. ; Pain 10/10; 01:00 BP 113 / 73; Pulse 91; Resp 16; Pulse Ox 95% on R/A; km8 01:30 BP 108 / 69; Pulse 80; Pulse Ox 95% on R/A; km8 02:30 BP 109 / 85; Pulse 80; Resp 17 S; Pulse Ox 95% on R/A; ha1 00:34 Body Mass Index 20.55 (52.62 kg, 160.02 cm) km8 00:34 Pain Scale: Adult km8 [place] Coma Score: 00:38 Eye Response: spontaneous(4). Motor Response: obeys commands(6). Verbal Response: km8 oriented(5). Total: 15. ED Course: 00:34 Patient arrived in ED. km8 00:36 Triage completed. km8 00:36 Kel Garvin MD is Attending Physician. rt 00:36 Arm band placed on right wrist. km8 00:38 Patient has correct armband on for positive identification. Bed in low position. Call km8 light in reach. Side rails up X 1. Pulse ox on. NIBP on. Door closed. Noise minimized. Lights dimmed. 00:38 Patient maintains SpO2 saturation greater than 95% on room air. km8 00:41 Ashanti Mantilla, BENI is Primary Nurse. km8 00:45 Inserted saline lock: 20 gauge in right antecubital area, using aseptic technique. km8 Blood collected. 00:51 Lipase Sent. 8 00:51 CMP Sent. 8 00:51 CBC with Diff Sent. km8 00:57 No provider procedures requiring assistance completed. km8 02:01 UAM Sent. km8 02:46 Provided Education on: medication administration . ha1 02:46 IV discontinued, intact, bleeding controlled, No redness/swelling at site. Pressure ha1 dressing applied. Administered Medications: No medications were administered Medication: 00:38 VIS not applicable for this client. km8 Outcome: 02:22 Discharge ordered by . rt 02:46 Discharged to home via wheelchair, ha1 02:46 Condition: stable 02:46 Discharge instructions given to patient, Instructed on discharge instructions, follow up and referral plans. medication usage, Demonstrated understanding of instructions, follow-up care, medications, Prescriptions given X 1, 02:47 Patient left the ED. ha1 Addendum: 03/17/2023 10:13 Addendum: Culture Results: Positive urine culture. MD José requested to add RX a a5 for Cipro, pt's phone is disconnected or no longer in service, no other phone numbers on file. Signatures: Mildred Beltrán, RN RN aa5 Violeta Beatty RN RN ha1 Kel Garvin MD MD rt Ashanti Mantilla RN RN km8 Corrections: (The following items were deleted from the chart) 03/13 00:41 00:36 GI: No signs and/or symptoms were reported involving the gastrointestinal system. km8 km8 00:41 00:36 : No signs and/or symptoms were reported regarding the genitourinary system. km8km8
--- NOTE | 2023-03-13 02:23 | EDPHYS ---
Physician Documentation [facility] Name: Dayami Espinosa Age: 53 yrs Sex: Female : 1970 Arrival Date: 03/13/2023 Time: 00:30 Bed 7 Private MD: ED Physician Kel Garvin HPI: 03/13 01:51 This 53 yrs old Female presents to ER via EMS with complaints of Abdominal pain. rt 01:51 Patient presents to the ED with 3 months of left lower quadrant abdominal pain. Denies rt nausea, vomiting, urinary symptoms. She has not had her symptoms evaluated. Did not adequately for Motrin. Denies other acute complaints, symptoms are moderate severity, no other aggravating or elevating factors.. 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 Flu vaccine status is unknown. - Social history:: Smoking status: Patient reports the use of cigarette tobacco products, smokes one-half pack cigarettes per day, Patient uses alcohol, occasionally. Patient/guardian denies using street drugs. - Family history:: not pertinent. ROS: 01:51 Constitutional: Negative for fever, chills, and weight loss, Cardiovascular: Negative rt for chest pain, palpitations, and edema, Respiratory: Negative for shortness of breath, cough, wheezing, and pleuritic chest pain, MS/Extremity: Negative for injury and deformity, Skin: Negative for injury, rash, and discoloration, Neuro: Negative for headache, weakness, numbness, tingling, and seizure, Psych: Negative for depression, anxiety, suicide ideation, homicidal ideation, and hallucinations, 01:51 Abdomen/GI: Positive for abdominal pain, Negative for nausea and vomiting, Exam: 01:51 Constitutional: This is a well developed, well nourished patient who is awake, alert, rt and in no acute distress. Head/Face: Normocephalic, atraumatic. Chest/axilla: Normal chest wall appearance and motion. Nontender with no deformity. No lesions are appreciated. Cardiovascular: Regular rate and rhythm with a normal S1 and S2. No gallops, murmurs, or rubs. Normal PMI, no JVD. No pulse deficits. Respiratory: Lungs have equal breath sounds bilaterally, clear to auscultation and percussion. No rales, rhonchi or wheezes noted. No increased work of breathing, no retractions or nasal flaring. Skin: Warm, dry with normal turgor. Normal color with no rashes, no lesions, and no evidence of cellulitis. MS/ Extremity: Pulses equal, no cyanosis. Neurovascular intact. Full, normal range of motion. Neuro: Awake and alert, GCS 15, oriented to person, place, time, and situation. Cranial nerves II-XII grossly intact. Motor strength 5/5 in all extremities. Sensory grossly intact. Cerebellar exam normal. Normal gait. Psych: Awake, alert, with orientation to person, place and time. Behavior, mood, and affect are within normal limits. 01:51 Abdomen/GI: Minimal tenderness to the left lower quadrant without guarding, rebound, distention, Vital Signs: 00:34 BP 124 / 85; Pulse 87; Resp 16; Temp 97.5(O); Pulse Ox 97% on R/A; Weight 52.62 kg (R); km8 Height 5 ft. 3 in. ; Pain 10/10; 01:00 BP 113 / 73; Pulse 91; Resp 16; Pulse Ox 95% on R/A; km8 01:30 BP 108 / 69; Pulse 80; Pulse Ox 95% on R/A; km8 02:30 BP 109 / 85; Pulse 80; Resp 17 S; Pulse Ox 95% on R/A; ha1 00:34 Body Mass Index 20.55 (52.62 kg, 160.02 cm) [facility] 00:34 Pain Scale: Adult km8 [place] Coma Score: 00:38 Eye Response: spontaneous(4). Motor Response: obeys commands(6). Verbal Response: km8 oriented(5). Total: 15. MDM: 00:39 Patient medically screened. rt 02:25 Differential Diagnosis UTI, chronic abdominal pain, pancreatitis. Data reviewed: vital rt signs, nurses notes, lab test result(s). Test considered but Not performed: CT: Patient was significant left thumb radiation exposure, with chronic abdominal pain, believe that the risk of further radiation exposure is greater than the risk of missed surgical pathology such as appendicitis, cholecystitis.. Counseling: I had a detailed discussion with the patient and/or guardian regarding the historical points, exam findings, and any diagnostic results supporting the discharge/admit diagnosis, lab results, the need for outpatient follow up, to return to the emergency department if symptoms worsen or persist or if there are any questions or concerns that arise at home. Response to treatment: the patient's symptoms have markedly improved after treatment. 03/13 00:44 Order name: CBC with Diff; Complete Time: : rt 03/13 00:44 Order name: CMP; Complete Time: : rt 03/13 00:44 Order name: Lipase; Complete Time: : rt 03/13 00:44 Order name: UAM; Complete Time: : rt 03/13 02:21 Order name: Urine Culture EDMS Administered Medications: No medications were administered Disposition Summary: 03/13/23 02:22 Discharge Ordered Notes: Location: Home rt Problem: new rt Symptoms: have improved rt Condition: Stable rt Diagnosis - UTI/ Urinary tract infection, site not specified rt Followup: rt - With: Private Physician - When: 2 - 3 days - Reason: Discharge Instructions: - Discharge Summary Sheet rt - Urinary Tract Infection, Adult rt Forms: - Medication Reconciliation Form rt - Thank You Letter rt - Antibiotic Education rt - Prescription Opioid Use rt - Patient Portal Instructions rt - Leadership Thank You Letter rt Prescriptions: - cefpodoxime 200 mg Oral tablet - take 1 tablet ORAL route every 12 hours with food; 14 tablet; Refills: 0, rt Product Selection Permitted Signatures: Dispatcher [employer] EDKel Magaña MD MD rt Ashanti Mantilla RN RN km8
[2023-03-13 03:15] VITALS: TEMP 97.5
[2023-03-13 03:19] VITALS: O2SAT 95
[2023-03-13 03:22] VITALS: BP 109/85
== END 2023-03-13 02:47 | disposition home or self-care (01) ==
LOC: ER 00:30
DX: N39.0 Urinary tract infection, site not specified (principal); F17.210 Nicotine dependence, cigarettes, uncomplicated; Z88.1 Allergy status to other antibiotic agents; Z88.8 Allergy status to other drugs, medicaments and biological substances
CPT/HCPCS: 36415; 80053; 81001; 83690; 85025; 87077; 87086; 87088; 87186; 99284

== ENCOUNTER 2023-11-27 00:39 | Emergency (ER) | payer SELFPAY ==
--- NOTE | 2023-11-27 00:45 | EDPHYS ---
Physician Documentation [facility] Name: Dayami Espinosa Age: 53 yrs Sex: Female : 1970 Arrival Date: 11/27/2023 Time: 00:39 Bed 7 Private MD: ED Physician Arash Mesa HPI: 11/26 00:42 This 53 yrs old Female presents to ER via Unassigned with complaints of LEG PAIN. kb 00:42 Pt is a 53 year old female who presents for right leg pain from knee to ankle that kb started one month ago. Denies injury or trauma. Pain has been intermittent, but everyday. Denies swelling, fever, rednes.. 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 - Infectious Disease History:: Denies. - Social history:: Smoking status: Patient reports the use of cigarette tobacco products, Patient uses alcohol, on a daily basis. ROS: 00:42 Constitutional: As per HPI kb Exam: 00:42 Constitutional: This is a well developed, well nourished patient who is awake, alert, kb and in no acute distress. Head/Face: Normocephalic, atraumatic. ENT: Moist Mucous membranes Cardiovascular: Regular rate Respiratory: Respirations even and unlabored. No increased work of breathing. Talking in full sentences Abdomen/GI: Soft, non-tender. No distention Skin: Warm, dry with normal turgor. Normal color. MS/ Extremity: Pulses equal, no cyanosis. Neurovascular intact. Full, normal range of motion. Neuro: Awake and alert, GCS 15, oriented to person, place, time, and situation. Moves all extremities. Normal gait. Vital Signs: 00:43 BP 106 / 68; Pulse 76; Resp 16; Temp 98.2; Pulse Ox 96% ; Weight 51.71 kg; Height 5 ft. bm8 3 in. ; Pain 6/10; 01:01 BP 102 / 74; Pulse 73; Resp 18; Temp 98.2; Pulse Ox 97% ; Pain 4/10; bm8 00:43 Body Mass Index 20.19 (51.71 kg, 160.02 cm) bm8 00:43 Pain Scale: Adult bm8 01:01 Pain Scale: Adult bm8 [place] Coma Score: 00:49 Eye Response: spontaneous(4). Motor Response: obeys commands(6). Verbal Response: bm8 oriented(5). Total: 15. MDM: 00:43 Differential diagnosis: fracture, arthritis, dvt. Data reviewed: vital signs, nurses kb notes. Test considered but Not performed: X-ray: x-ray considered but pt has full ROM, no reported injury, no swelling. . Ultrasound US considered but pt has no discoloration, swelling, calf tenderness. Historians other than the Patient: EMS: [facility]. Counseling: I had a detailed discussion with the patient and/or guardian regarding the historical points, exam findings, and any diagnostic results supporting the discharge/admit diagnosis, the need for outpatient follow up, a orthopedic surgeon, to return to the emergency department if symptoms worsen or persist or if there are any questions or concerns that arise at home. 00:44 Patient medically screened. kb Administered Medications: 01:00 Drug: Ketorolac IM 30 mg IM once Route: IM; Site: right deltoid; bm8 01:00 Follow up: Response: No adverse reaction; Medication Administered at Departure bm8 Disposition: 04:31 Co-signature as Attending Physician, Arash Mesa MD I agree with the assessment sp4 and plan of care. I reviewed the patient's care provided by Advanced Practice Provider \T\ agree w/ the diagnosis \T\ care plan. I personally saw the pt \T\ performed a substantive portion of the visit, incldng all aspects of the (History/Exam/Medical Decision Making). Disposition Summary: 11/27/23 00:44 Discharge Ordered Notes: Location: Home Condition: Stable kb Diagnosis - Pain in right lower leg kb Followup: kb - With: Emergency Department - When: As needed - Reason: Worsening of condition Followup: kb - With: Private Physician - When: 2 - 3 days - Reason: Recheck today's complaints, Continuance of care, Re-evaluation by your physician Discharge Instructions: - Discharge Summary Sheet kb - Musculoskeletal Pain kb Forms: - Medication Reconciliation Form kb - Antibiotic Education kb - Prescription Opioid Use kb - Patient Portal Instructions kb - Leadership Thank You Letter kb Prescriptions: - Diclofenac Sodium 75 mg Oral tablet, delayed release (enteric coated) - take 1 tablet ORAL route 2 times per day As needed; 30 tablet; Refills: 0, kb Product Selection Permitted Signatures: Basia Lopez, JOSE-C Arash Bocanegra MD MD sp4 Armani Paul RN RN bm8
--- NOTE | 2023-11-27 00:45 | ER ---
Nurse's Notes [facility] Name: Dayami Espinosa Age: 53 yrs Sex: Female : 1970 Arrival Date: 11/27/2023 Time: 00:39 Bed 7 Private MD: Diagnosis: Pain in right lower leg Presentation: 11/26 00:43 Chief complaint: Patient states: i have right leg pain that starts in my knee and goes bm8 down to my ankle, its been there for some time. Coronavirus screen: At this time, the client does not indicate any symptoms associated with coronavirus-19. Ebola Screen: Patient negative for fever greater than or equal to 101.5 degrees Fahrenheit, and additional compatible Ebola Virus Disease symptoms Patient denies exposure to infectious person. Patient denies travel to an Ebola-affected area in the 21 days before illness onset. No symptoms or risks identified at this time. Initial Sepsis Screen: Does the patient meet any 2 criteria? No. Patient's initial sepsis screen is negative. Does the patient have a suspected source of infection? No. Patient's initial sepsis screen is negative. Risk Assessment: Do you want to hurt yourself or someone else? Patient reports no desire to harm self or others. Onset of symptoms is unknown. 00:43 Method Of Arrival: EMS: [facility] bm8 00:43 Acuity: JAZMIN 4 bm8 Triage Assessment: 00:44 General: Appears in no apparent distress. comfortable, Behavior is calm, cooperative, bm8 appropriate for age. Pain: Complains of pain in right leg Pain does not radiate. Pain currently is 6 out of 10 on a pain scale. EENT: No signs and/or symptoms were reported regarding the EENT system. Neuro: No deficits noted. Level of Consciousness is awake, alert, obeys commands, Oriented to person, place, time, situation, Appropriate for age. Cardiovascular: Denies chest pain, Capillary refill < 3 seconds Patient's skin is warm and dry. Respiratory: Airway is patent Trachea midline Respiratory effort is even, unlabored, Respiratory pattern is regular, symmetrical, Breath sounds are clear bilaterally. GI: No signs and/or symptoms were reported involving the gastrointestinal system. : No signs and/or symptoms were reported regarding the genitourinary system. Derm: No signs and/or symptoms reported regarding the dermatologic system. Musculoskeletal: Circulation, motion, and sensation intact. Capillary refill < 3 seconds, in bilateral fingers. toes. Range of motion: intact in all extremities, Reports pain in right leg since "for some time". 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 - Infectious Disease History:: Denies. - Social history:: Smoking status: Patient reports the use of cigarette tobacco products, Patient uses alcohol, on a daily basis. Screenin:49 [facility] ED Fall Risk Assessment (Adult) History of falling in the last 3 months, bm8 including since admission No falls in past 3 months (0 pts) Confusion or Disorientation No (0 pts) Intoxicated or Sedated No (0 pts) Impaired Gait No (0 pts) Mobility Assist Device Used No (0 pt) Altered Elimination No (0 pt) Score/Fall Risk Level 0 - 2 = Low Risk Oriented to surroundings, Maintained a safe environment, Educated pt \\T\\ family on fall prevention, incl call for assistance when getting out of bed, Provided non-skid footwear, Hourly rounding (assess needs \\T\\ fall precautionary measures) done, Used ambulatory aids as needed (educated on \\T\\ assisted with), Used gait belt as appropriate. Abuse screen: Denies threats or abuse. Nutritional screening: No deficits noted. Tuberculosis screening: No symptoms or risk factors identified. Assessment: 00:49 Reassessment: see triage note. bm8 Vital Signs: 00:43 BP 106 / 68; Pulse 76; Resp 16; Temp 98.2; Pulse Ox 96% ; Weight 51.71 kg; Height 5 ft. bm8 3 in. ; Pain 6/10; 01:01 BP 102 / 74; Pulse 73; Resp 18; Temp 98.2; Pulse Ox 97% ; Pain 4/10; bm8 00:43 Body Mass Index 20.19 (51.71 kg, 160.02 cm) bm8 00:43 Pain Scale: Adult bm8 01:01 Pain Scale: Adult bm8 [place] Coma Score: 00:49 Eye Response: spontaneous(4). Motor Response: obeys commands(6). Verbal Response: bm8 oriented(5). Total: 15. ED Course: 00:41 Patient arrived in ED. kb 00:41 Bas[facility]-C [facility]. kb 00:41 Arash Mesa MD is Attending Physician. kb 00:42 Armani Paul, RN is Primary Nurse. bm8 00:44 Triage completed. bm8 00:44 Arm band placed on right wrist. bm8 00:49 Patient has correct armband on for positive identification. Bed in low position. Call bm8 light in reach. Side rails up X 1. Client placed on continuous cardiac and pulse oximetry monitoring. NIBP monitoring applied. Pulse ox on. NIBP on. Door closed. Noise minimized. Pillow given. Verbal reassurance given. Head of bed elevated. 00:49 No provider procedures requiring assistance completed. Patient did not have IV access bm8 during this emergency room visit. 01:01 Provided Education on: post er care. bm8 Administered Medications: 01:00 Drug: Ketorolac IM 30 mg IM once Route: IM; Site: right deltoid; bm8 01:00 Follow up: Response: No adverse reaction; Medication Administered at Departure bm8 Medication: 00:49 VIS not applicable for this client. bm8 Outcome: 00:44 Discharge ordered by . kb 00:49 Discharged to home ambulatory, bm8 00:49 Condition: stable 00:49 Discharge instructions given to patient, Instructed on discharge instructions, follow up and referral plans. no drinking with medication, no driving heavy equipment, medication usage, Demonstrated understanding of instructions, follow-up care, medications, Prescriptions given X 1, 01:02 Patient left the ED. bm8 Signatures: Basia Lopez FNP-C FNP-Armani Gonzalez, RN RN bm8
[2023-11-27] MEDS ORDERED: KETOROLAC 30 MG/ML INJ ONE (00:52)
[2023-11-27 01:17] VITALS: TEMP 98.2
[2023-11-27 01:18] VITALS: BP 102/74; O2SAT 97
== END 2023-11-27 01:02 | disposition home or self-care (01) ==
LOC: ER 00:39
DX: M79.661 Pain in right lower leg (principal)
CPT/HCPCS: 96372; 99284

== ENCOUNTER 2024-05-15 01:23 | Emergency (ER) | payer SELFPAY ==
[2024-05-15] MEDS ORDERED: NA CHLORIDE 0.9% 1,000 ML ONE (02:25)
[2024-05-15] MEDS ORDERED: KETOROLAC 30 MG/ML INJ ONE (02:25)
[2024-05-15] MEDS ORDERED: ONDANSETRON 4 MG/2 ML VIAL ONE (02:25)
[2024-05-15 02:33] LABS: Absolute Basophils 0.1 K/uL (0-0.5); Absolute Eosinophils 0.2 K/uL (0-0.5); Absolute Monocytes 0.5 K/uL (0.1-1.3); Absolute Neutrophil 3.3 K/uL (1.8-8.0); Basophils % 1.1 % (0-1.3); Eosinophils % 3.4 % (0-4.4); Hematocrit 39.7 % (36.0-45.0); Hemoglobin 13.3 g/dL (12.0-15.0); Lymphocytes % 41.9 % (15.3-44.8); MCH 30.5 pg (27.0-35.0); MCHC 33.6 g/dL (32.0-36.0); MCV 90.8 fL (80-100); MPV 8.4 fL (7.6-11.3); Neutrophils % 46.6 % (41.7-73.7); Nucleated Red Blood Cells % 0.1 % (0-0); Platelets 244 thou/uL (152-406); RBC Red Blood Cell Count 4.37 M/uL (3.86-4.86); Red Cell Distribution Width 14.4 % (12.1-15.2)
[2024-05-15 02:43] LABS: Specific Gravity 1.006 (1.005-1.030); Sqamous Epithelial <5 /HPF (None Seen); Urine Bacteria None Seen /HPF (<20); Urine Bilirubin NEGATIVE (Negative); Urine Blood Negative (Negative); Urine Clarity Turbid (Clear); Urine Color Colorless (Yellow); Urine Culture Reflex Order NOT NEEDED; Urine Glucose NEGATIVE (Negative); Urine Ketones NEGATIVE (Negative); Urine Microscopic Reflex YN ORDER UMIC; Urine Nitrite NEGATIVE (Negative); Urine Protein NEGATIVE (Negative); Urine RBC None Seen /HPF (None Seen); Urine Urobilinogen Normal (Normal); Urine WBC <5 /HPF (<5); Urine pH 6.5 (5.0-7.0)
[2024-05-15 02:44] LABS: Specific Gravity 1.006 (1.005-1.030)
[2024-05-15 02:47] LABS: Albumin 3.5 g/dL (3.4-5.0); Albumin/Globulin Ratio 1.1 (1.1-1.8); Anion Gap 5.9 mEq/L (5.0-15.0); Bilirubin Total 0.6 mg/dL (0.2-1.0); Globulin 3.2 g/dL (2.3-3.5); Potassium 3.9 mEq/L (3.5-5.1); Protein, Total 6.7 g/dL (6.4-8.2)
--- NOTE | 2024-05-15 05:03 | ER ---
Nurse's Notes [facility] Name: Dayami Espinosa Age: 54 yrs Sex: Female : 1970 Arrival Date: 05/15/2024 Time: 01:23 Bed 17 Private MD: Diagnosis: Lower abdominal pain, unspecified Presentation: 05/15 01:32 Chief complaint: Patient states: PT C/O LLQ PAIN FOR THE LAST 2 MONTHS AND br2 CONSTIPATION. Coronavirus screen: Client denies travel out of the [place] in the last 14 days. Ebola Screen: Patient denies exposure to infectious person. Patient denies travel to an Ebola-affected area in the 21 days before illness onset. Initial Sepsis Screen: Does the patient meet any 2 criteria? No. Patient's initial sepsis screen is negative. Does the patient have a suspected source of infection? No. Patient's initial sepsis screen is negative. Risk Assessment: Do you want to hurt yourself or someone else? Patient reports no desire to harm self or others. Onset of symptoms was March 2025. 01:32 Method Of Arrival: EMS: [facility] br2 01:32 Acuity: JAZMIN 3 br2 Triage Assessment: 01:36 General: Appears in no apparent distress. comfortable, Behavior is calm, cooperative, br2 Smells of alcohol. Pain: Complains of pain in left lower quadrant Pain currently is 10 out of 10 on a pain scale. GI: Reports constipation. 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 - Infectious Disease History:: Denies. - Social history:: Smoking status: Patient reports the use of cigarette tobacco products, smokes one pack cigarettes per day. Patient uses alcohol, occasionally. Screenin:35 [facility] ED Fall Risk Assessment (Adult) History of falling in the last 3 months, dd2 including since admission No falls in past 3 months (0 pts) Confusion or Disorientation No (0 pts) Intoxicated or Sedated No (0 pts) Impaired Gait No (0 pts) Mobility Assist Device Used No (0 pt) Altered Elimination No (0 pt) Score/Fall Risk Level 0 - 2 = Low Risk Oriented to surroundings, Maintained a safe environment, Educated pt \T\ family on fall prevention, incl call for assistance when getting out of bed, Assessed \T\ reinforced patient's understanding of fall precautions, Hourly rounding (assess needs \T\ fall precautionary measures) done. Abuse screen: Denies threats or abuse. Nutritional screening: No deficits noted. Tuberculosis screening: No symptoms or risk factors identified. Assessment: 01:48 General: Appears in no apparent distress. Behavior is calm, cooperative, appropriate dd2 for age. Pain: Complains of pain in left lower quadrant Pain does not radiate. Neuro: Level of Consciousness is awake, alert, obeys commands, Oriented to person, place, time, situation, Appropriate for age. Cardiovascular: Patient's skin is warm and dry. Respiratory: Airway is patent Respiratory effort is even, unlabored, Respiratory pattern is regular, symmetrical. GI: Abdomen is flat, non-distended, Bowel sounds present X 4 quads. Abd is soft X 4 quads Abdomen is tender to palpation in left lower quadrant Reports lower abdominal pain, nausea. : No deficits noted. No signs and/or symptoms were reported regarding the genitourinary system. EENT: No deficits noted. No signs and/or symptoms were reported regarding the EENT system. Derm: No deficits noted. No signs and/or symptoms reported regarding the dermatologic system. Musculoskeletal: No deficits noted. No signs and/or symptoms reported regarding the musculoskeletal system. Vital Signs: 01:32 BP 113 / 79; Pulse 71; Resp 18 S; Temp 97.2; Pulse Ox 100% on R/A; Weight 50.8 kg; br2 Height 5 ft. 3 in. ; Pain 10/10; 02:35 BP 117 / 65; Pulse 59; Resp 15; Pulse Ox 96% on R/A; dd2 02:49 BP 110 / 61; Pulse 67; Resp 15; Pulse Ox 99% ; dd2 03:45 BP 112 / 62; Pulse 63; Resp 15; Pulse Ox 99% on R/A; dd2 05:00 BP 114 / 67; Pulse 64; Resp 16; Pulse Ox 99% on R/A; dd2 01:32 Body Mass Index 19.84 (50.80 kg, 160.02 cm) br2 01:32 Pain Scale: Adult br2 Phuc Coma Score: 02:35 Eye Response: spontaneous(4). Motor Response: obeys commands(6). Verbal Response: dd2 oriented(5). Total: 15. ED Course: 01:24 Patient arrived in ED. dd2 01:25 KELLEE HANKS RN is Primary Nurse. dd2 01:26 Darrell Bardales PA is PHCP. cp 01:26 Lobo Correia MD is Attending Physician. cp 01:36 Triage completed. br2 01:36 Arm band placed on right wrist. br2 02:35 Patient has correct armband on for positive identification. Bed in low position. Call dd2 light in reach. Side rails up X2. Client placed on continuous cardiac and pulse oximetry monitoring. NIBP monitoring applied. Door closed. Noise minimized. Warm blanket given. Pillow given. Verbal reassurance given. 02:35 CBC with Diff Sent. dd2 02:35 CMP Sent. dd2 02:35 Lipase Sent. dd2 02:35 Test, Urine Sent. dd2 02:35 Urinalysis w/ reflexes Sent. dd2 02:35 No provider procedures requiring assistance completed. Initial lab(s) drawn, by me, dd2 sent to lab. Urine collected: clean catch specimen, cloudy. Inserted saline lock: 20 gauge in right antecubital area, using aseptic technique. Blood collected. Flushed with 10 mL NS. Patient maintains SpO2 saturation greater than 95% on room air. 03:19 CT Abd/Pelvis - IV Contrast Only In Process Unspecified. EDMS 05:47 IV discontinued, intact, bleeding controlled, No redness/swelling at site. Pressure dd2 dressing applied. 05:48 Provided Education on: D/C EDUCATION. dd2 Administered Medications: 02:34 Drug: Ondansetron IVP 4 mg IVP once; over 2 minutes Route: IVP; Site: right antecubital;dd2 02:49 Follow up: Response: No adverse reaction dd2 02:34 Drug: NS 0.9% IV 1000 ml IV at 1 bolus Per protocol; to be given as a bolus over 60 dd2 minutes Route: IV; Rate: 1 bolus; Site: right antecubital; 02:49 Follow up: BP 110 / 61; Pulse 67 bpm; Resp 15 bpm; Pulse Ox 99% dd2 03:34 Follow up: IV Status: Completed infusion; IV Intake: 1000ml dd2 02:35 Drug: TORadol - Ketorolac IVP 15 mg IVP once Route: IVP; Site: right antecubital; dd2 02:49 Follow up: Response: No adverse reaction dd2 Medication: 02:35 VIS not applicable for this client. dd2 Intake: 03:34 IV: 1000ml; Total: 1000ml. dd2 Outcome: 05:03 Discharge ordered by . ec2 05:47 Discharged to home ambulatory, dd2 05:47 Condition: stable 05:47 Discharge instructions given to patient, Instructed on discharge instructions, follow up and referral plans. Demonstrated understanding of instructions, follow-up care, 05:49 Patient left the ED. dd2 Signatures: Dispatcher [employer] Darrell Landry PA PA cp Corral, Edwin, MD MD ec2 Ramona Francois RN RN br2 KELLEE HANKS RN RN dd2
--- NOTE | 2024-05-15 05:03 | EDPHYS ---
Physician Documentation [facility] Name: Dayami Espinosa Age: 54 yrs Sex: Female : 1970 Arrival Date: 05/15/2024 Time: 01:23 Bed 17 Private MD: ED Physician Lobo Correia HPI: 05/15 01:28 This 54 yrs old Female presents to ER via EMS with complaints of Abdominal Pain. cp 01:28 The patient presents with abdominal pain in the left lower quadrant. Onset: The cp symptoms/episode began/occurred 1-2 months ago, constant. The symptoms do not radiate. Associated signs and symptoms: Pertinent positives: intermittent vaginal spotting, Pertinent negatives: constipation, diarrhea, dysuria, fever, vomiting. Severity of pain: in the emergency department the pain is unchanged despite EMS interventions. 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 - Infectious Disease History:: Denies. - Social history:: Smoking status: Patient reports the use of cigarette tobacco products, smokes one pack cigarettes per day. Patient uses alcohol, occasionally. ROS: 01:30 Constitutional: Negative for body aches, chills, fever, poor PO intake, cp 01:30 Eyes: Negative for injury, pain, redness, and discharge, cp 01:30 ENT: Negative for drainage from ear(s), ear pain, sore throat, difficulty swallowing, difficulty handling secretions, 01:30 Cardiovascular: Negative for chest pain, edema, palpitations, 01:30 Respiratory: Negative for cough, shortness of breath, wheezing, 01:30 Abdomen/GI: Positive for abdominal pain, of the left lower quadrant, Negative for vomiting, diarrhea, constipation, 01:30 Back: Negative for radiated pain, 01:30 : Positive for intermittent vaginal spotting, Negative for urinary symptoms, flank pain, 01:30 Neuro: Negative for altered mental status, headache, weakness, 01:30 All other systems are negative, Exam: 01:33 Constitutional: The patient appears in no acute distress, alert, awake, non-toxic, well cp developed, well nourished, 01:33 Head/Face: Normocephalic, atraumatic. cp 01:33 Eyes: Periorbital structures: appear normal, Conjunctiva: normal, no exudate, no injection, Sclera: no appreciated abnormality, Lids and lashes: appear normal, bilaterally, 01:33 ENT: External ear(s): are unremarkable, Nose: is normal, Mouth: Lips: moist, Oral mucosa: moist, Posterior pharynx: Airway: no evidence of obstruction, patent, 01:33 Chest/axilla: Inspection: normal, :33 Cardiovascular: Rate: normal, Rhythm: regular, Edema: is not appreciated, JVD: is not appreciated, :33 Respiratory: the patient does not display signs of respiratory distress, Respirations: normal, no use of accessory muscles, no retractions, labored breathing, is not present, Breath sounds: are clear throughout, no decreased breath sounds, no stridor, no wheezing, :33 Abdomen/GI: Inspection: abdomen appears normal, Bowel sounds: active, all quadrants, Palpation: soft, in all quadrants, mild abdominal tenderness, in the left lower quadrant, rebound tenderness, is not appreciated, involuntary guarding, is not appreciated, :33 Back: pain, is absent, ROM is normal, Vital Signs: 01:32 BP 113 / 79; Pulse 71; Resp 18 S; Temp 97.2; Pulse Ox 100% on R/A; Weight 50.8 kg; br2 Height 5 ft. 3 in. ; Pain 10/10; 02:35 BP 117 / 65; Pulse 59; Resp 15; Pulse Ox 96% on R/A; dd2 02:49 BP 110 / 61; Pulse 67; Resp 15; Pulse Ox 99% ; dd2 03:45 BP 112 / 62; Pulse 63; Resp 15; Pulse Ox 99% on R/A; dd2 05:00 BP 114 / 67; Pulse 64; Resp 16; Pulse Ox 99% on R/A; dd2 01:32 Body Mass Index 19.84 (50.80 kg, 160.02 cm) br2 01:32 Pain Scale: Adult br2 Baker Coma Score: 02:35 Eye Response: spontaneous(4). Motor Response: obeys commands(6). Verbal Response: dd2 oriented(5). Total: 15. MDM: 01:29 Medical Screening Exam initiated cp 03:14 Data reviewed: vital signs, nurses notes. ED course: Patient signed out with pending CT ec2 imaging and reassessment.. 05:03 ED course: CT abdomen pelvis with no acute abnormality. Will discharge home. Return ec2 precautions given.. 05/15 01:26 Order name: CBC with Diff; Complete Time: 03:05 05/15 03:06 Interpretation: Reviewed. 05/15 01:26 Order name: CMP; Complete Time: 03:05 05/15 03:05 Interpretation: Normal except: CL 112; BUN 6. 05/15 01:26 Order name: Lipase; Complete Time: 03:05 05/15 03:05 Interpretation: Abnormal: LIP 151. 05/15 01:26 Order name: Test, Urine; Complete Time: 03:05 05/15 01:26 Order name: Urinalysis w/ reflexes; Complete Time: 03:05 05/15 03:06 Interpretation: Normal except: [facility] Turbid; UESTR 25. 05/15 01:30 Order name: CT Abd/Pelvis - IV Contrast Only 05/15 01:26 Order name: IV Saline Lock; Complete Time: 02:35 05/15 01:26 Order name: Labs collected and sent; Complete Time: 02:35 cp Administered Medications: 02:34 Drug: Ondansetron IVP 4 mg IVP once; over 2 minutes Route: IVP; Site: right antecubital;dd2 02:49 Follow up: Response: No adverse reaction dd2 02:34 Drug: NS 0.9% IV 1000 ml IV at 1 bolus Per protocol; to be given as a bolus over 60 dd2 minutes Route: IV; Rate: 1 bolus; Site: right antecubital; 02:49 Follow up: BP 110 / 61; Pulse 67 bpm; Resp 15 bpm; Pulse Ox 99% dd2 03:34 Follow up: IV Status: Completed infusion; IV Intake: 1000ml dd2 02:35 Drug: TORadol - Ketorolac IVP 15 mg IVP once Route: IVP; Site: right antecubital; dd2 02:49 Follow up: Response: No adverse reaction dd2 Disposition: 05:03 I agree with the assessment and plan of care. ec2 Disposition Summary: 05/15/24 05:03 Discharge Ordered Notes: Location: Home ec2 Condition: Stable ec2 Diagnosis - Lower abdominal pain, unspecified ec2 Followup: ec2 - With: Private Physician - When: - Reason: Recheck today's complaints Discharge Instructions: - Discharge Summary Sheet ec2 - Abdominal Pain, Adult ec2 Forms: - Medication Reconciliation Form ec2 - Antibiotic Education ec2 - Prescription Opioid Use ec2 - Patient Portal Instructions ec2 - Leadership Thank You Letter ec2 Signatures: Dispatcher [employer] EDDarrell Phillips PA PA cp Corral, Edwin, MD MD ec2 Ramona Francois RN RN br2 KELLEE HANKS RN RN dd2
--- NOTE | 2024-05-15 05:19 | RAD REPORT ---
CLINICAL HISTORY: LLQ abdomen pain. COMPARISON: None. TECHNIQUE: CTABDOMEN PELVIS WITH IV CONTRAST on 05/15/2024 1:30 AM LOCAL CITY DRIVER This exam was performed according to our departmental dose-optimization program, which includes autom ated exposure control, adjustment of the mA and/or kV according to patient size and/or use of iterative reconstruction techn ique. FINDINGS: Lower lungs are clear. Abdomen: The liver is normal in appearance. There is no biliary dilatation. Gallbladder is normal in appearance. The pancreas and spleen are normal in appearance. The adrenal glands and kidneys are unremarkable. Abdominal aorta is normal in course and caliber without aneurysm. There is no free air. There is no r etroperitoneal adenopathy. Pelvis: There is no bowel obstruction. Urinary bladder is unremarkable. There is no free fluid. Uteru s is normal in size. Appendix is normal. Skeleton: There are no acute osseous findings. No suspicious bony lesions. IMPRESSION: No acute process. Electronically signed by: Bradley Ames MD 05/15/2024 05:00 AM LOCAL CITY DRIVER RP Due to temporary technical issues with the [employer] reporting system, reports are being jennifer d by the in-house radiologist without review as a courtesy to ensure prompt reporting the interpreting radiologist is fully responsible for the content of the report. Transcribed Date/Time: 05/15/2024 5:18 AM
[2024-05-15 08:27] VITALS: TEMP 97.2
[2024-05-15 08:29] VITALS: O2SAT 99
[2024-05-15 08:31] VITALS: BP 114/67
== END 2024-05-15 05:49 | disposition home or self-care (01) ==
LOC: ER 01:23
DX: R10.32 Left lower quadrant pain (principal); F17.210 Nicotine dependence, cigarettes, uncomplicated
CPT/HCPCS: 36415; 74177; 80053; 81001; 81025; 83690; 85025; J2405; J7030; Q9967

== ENCOUNTER 2024-06-08 03:06 | Emergency (ER) | payer SELFPAY ==
--- NOTE | 2024-06-08 03:26 | EDPHYS ---
Physician Documentation [facility] Name: Dayami Espinosa Age: 54 yrs Sex: Female : 1970 Arrival Date: 06/08/2024 Time: 03:06 Bed 7 Private MD: ED Physician Arash Mesa HPI: 06/08 03:17 This 54 yrs old Female presents to ER via EMS with complaints of Flank Pain. sp4 21:36 54-year-old female presents with EMS for chronic left flank pain reported to be there sp4 for the past 6 weeks. 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 - Infectious Disease History:: Denies. - Social history:: Smoking status: Patient reports the use of cigarette tobacco products, smokes one pack cigarettes per day. - Family history:: not pertinent. ROS: 21:36 Constitutional: Negative for fever, chills, and weight loss, positive for left flank sp4 pain 21:36 All other systems are negative, Exam: 21:36 Constitutional: This is a well developed, well nourished patient who is awake, alert, sp4 and in no acute distress. Head/Face: Normocephalic, atraumatic. Eyes: Pupils equal round and reactive to light, extra-ocular motions intact. Lids and lashes normal. Conjunctiva and sclera are not injected. Cornea within normal limits. Periorbital areas with no swelling, redness, or edema. ENT: Nares patent. No nasal discharge, no septal abnormalities noted. Tympanic membranes are normal and external auditory canals are clear. Oropharynx with no redness, swelling, or masses, exudates, or evidence of obstruction, uvula midline. Mucous membranes moist. Neck: Trachea midline, no thyromegaly or masses palpated, and no cervical lymphadenopathy. Supple, full range of motion without nuchal rigidity, or vertebral point tenderness. Chest/axilla: Normal chest wall appearance and motion. Nontender with no deformity. No lesions are appreciated. Cardiovascular: Regular rate and rhythm with a normal S1 and S2. No gallops, murmurs, or rubs. Normal PMI, no JVD. No pulse deficits. Respiratory: Lungs have equal breath sounds bilaterally, clear to auscultation and percussion. No rales, rhonchi or wheezes noted. No increased work of breathing, no retractions or nasal flaring. Abdomen/GI: Soft, with normal bowel sounds. No distension or tympany. No guarding or rebound. No evidence of tenderness throughout. Back: No spinal tenderness. No costovertebral tenderness. Skin: Warm, dry with normal turgor. Normal color with no rashes, no lesions, and no evidence of cellulitis. MS/ Extremity: Pulses equal, no cyanosis. Neurovascular intact. Full, normal range of motion. Neuro: Awake and alert, GCS 15, oriented to person, place, time, and situation. Cranial nerves II-XII grossly intact. Motor strength 5/5 in all extremities. Sensory grossly intact. Psych: Awake, alert, with orientation to person, place and time. Behavior, mood, and affect are within normal limits Vital Signs: 03:13 BP 121 / 74; Pulse 87; Resp 16; Temp 97.7; Pulse Ox 100% on R/A; Weight 50.8 kg; Height al5 5 ft. 3 in. ; 03:50 BP 104 / 71; Pulse 76; Resp 16; Pulse Ox 98% on R/A; al5 03:13 Body Mass Index 19.84 (50.80 kg, 160.02 cm) al5 Phuc Coma Score: 21:36 Eye Response: spontaneous(4). Motor Response: obeys commands(6). Verbal Response: sp4 oriented(5). Total: 15. MDM: 03:17 Medical Screening Exam initiated sp4 21:36 Differential diagnosis: Flank pain, musculoskeletal pain, exacerbation of chronic pain. sp4 Data reviewed: vital signs, nurses notes, EMS record, old medical records. Consideration of Admission/Observation Escalation of care including admission/observation considered. ED course: Patient had full abdominal workup including CAT scan in May 2024. Because of the chronicity of pain it is not necessary to repeat workup. Patient stable for discharge from the emergency room.. Administered Medications: 03:50 Drug: Acetaminophen PO 650 mg PO once Route: PO; al5 03:50 Follow up: Response: No adverse reaction; Medication administered at discharge. al5 Disposition Summary: 06/08/24 03:25 Discharge Ordered Notes: Location: Home sp4 Problem: new sp4 Symptoms: have improved sp4 Condition: Stable sp4 Diagnosis - Acute exacerbation of chronic left flank pain , unspecified sp4 Followup: sp4 - With: Private Physician - When: 7 - 10 days - Reason: Recheck today's complaints Discharge Instructions: - Discharge Summary Sheet sp4 - Medical Screening Exam sp4 Signatures: Arash Mesa MD MD sp4 Em Stockton RN RN al5
--- NOTE | 2024-06-08 03:26 | ER ---
Nurse's Notes [facility] Name: Dayami Espinosa Age: 54 yrs Sex: Female : 1970 Arrival Date: 06/08/2024 Time: 03:06 Bed 7 Private MD: Diagnosis: Acute exacerbation of chronic left flank pain , unspecified Presentation: 06/08 03:13 Chief complaint: Patient states: c/o L side flank/rib pain x6 weeks. got worse earlier al5 today. Coronavirus screen: At this time, the client does not indicate any symptoms associated with coronavirus-19. Ebola Screen: No symptoms or risks identified at this time. Initial Sepsis Screen: Does the patient meet any 2 criteria? No. Patient's initial sepsis screen is negative. Does the patient have a suspected source of infection? No. Patient's initial sepsis screen is negative. Risk Assessment: Do you want to hurt yourself or someone else? Patient reports no desire to harm self or others. Onset of symptoms was June 07, 2024. 03:13 Method Of Arrival: EMS: [facility] al5 03:13 Acuity: JAZMIN 3 al5 Triage Assessment: 03:15 General: Appears in no apparent distress. comfortable, slender, well groomed, Behavior al5 is calm, cooperative. Pain: Complains of pain in posterior aspect of right lateral abdomen and anterior aspect of right lateral abdomen Pain currently is 10 out of 10 on a pain scale. EENT: No signs and/or symptoms were reported regarding the EENT system. Neuro: Level of Consciousness is awake, alert, obeys commands, Oriented to person, place, time, situation. Cardiovascular: Capillary refill < 3 seconds Patient's skin is warm and dry. Respiratory: Airway is patent Respiratory effort is even, unlabored, Respiratory pattern is regular, symmetrical. GI: No signs and/or symptoms were reported involving the gastrointestinal system. : Reports pain in right flank(s). Derm: Skin is intact, is healthy with good turgor, Skin is pink, warm \T\ dry. normal. Musculoskeletal: No signs and/or symptoms reported regarding the musculoskeletal system. 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 - Infectious Disease History:: Denies. - Social history:: Smoking status: Patient reports the use of cigarette tobacco products, smokes one pack cigarettes per day. - Family history:: not pertinent. Screenin:17 [facility] ED Fall Risk Assessment (Adult) History of falling in the last 3 months, al5 including since admission No falls in past 3 months (0 pts) Confusion or Disorientation No (0 pts) Intoxicated or Sedated No (0 pts) Impaired Gait No (0 pts) Mobility Assist Device Used No (0 pt) Altered Elimination No (0 pt) Score/Fall Risk Level 0 - 2 = Low Risk Oriented to surroundings, Maintained a safe environment, Hourly rounding (assess needs \T\ fall precautionary measures) done. Abuse screen: Denies threats or abuse. Denies injuries from another. Nutritional screening: No deficits noted. Tuberculosis screening: No symptoms or risk factors identified. Assessment: 03:16 Reassessment: see triage assessment. al5 Vital Signs: 03:13 BP 121 / 74; Pulse 87; Resp 16; Temp 97.7; Pulse Ox 100% on R/A; Weight 50.8 kg; Height al5 5 ft. 3 in. ; 03:50 BP 104 / 71; Pulse 76; Resp 16; Pulse Ox 98% on R/A; al5 03:13 Body Mass Index 19.84 (50.80 kg, 160.02 cm) al5 Phuc Coma Score: 21:36 Eye Response: spontaneous(4). Motor Response: obeys commands(6). Verbal Response: sp4 oriented(5). Total: 15. ED Course: 03:09 Patient arrived in ED. vk 03:13 Em Stockton, BENI is Primary Nurse. al5 03:13 Arash Mesa MD is Attending Physician. al5 03:14 Triage completed. al5 03:16 Arm band placed on right wrist. Patient placed in the treatment room, in view of staff al5 members, on pulse oximetry. 03:17 Patient has correct armband on for positive identification. Bed in low position. Call al5 light in reach. Side rails up X2. Provided Education on: plan of care. 03:17 No provider procedures requiring assistance completed. al5 03:51 Patient did not have IV access during this emergency room visit. al5 Administered Medications: 03:50 Drug: Acetaminophen PO 650 mg PO once Route: PO; al5 03:50 Follow up: Response: No adverse reaction; Medication administered at discharge. al5 Medication: 03:16 VIS not applicable for this client. al5 Outcome: 03:25 Discharge ordered by . sp4 03:51 Discharged to home ambulatory, al5 03:51 Condition: good 03:51 Discharge instructions given to patient, Instructed on discharge instructions, follow up and referral plans. Demonstrated understanding of instructions, follow-up care, 03:51 Patient left the ED. al5 Signatures: Arash Mesa MD MD sp4 Ludmila Sparks Amanda RN RN al5
[2024-06-08] MEDS ORDERED: ACETAMINOPHEN 325 MG TABLET ONE (03:45)
[2024-06-08 03:55] VITALS: TEMP 97.7
[2024-06-08 03:56] VITALS: BP 104/71; O2SAT 98
== END 2024-06-08 03:51 | disposition home or self-care (01) ==
LOC: ER 03:06
DX: R10.32 Left lower quadrant pain (principal)
CPT/HCPCS: 99284

== ENCOUNTER 2024-07-16 01:20 | Emergency (ER) | payer SELFPAY ==
[2024-07-16] MEDS ORDERED: ACETAMINOPHEN 500 MG TAB ONE (01:34)
[2024-07-16] MEDS ORDERED: IBUPROFEN 400 MG TAB ONE (01:34)
--- NOTE | 2024-07-16 02:38 | ER ---
Nurse's Notes [facility] Name: Dayami Espinosa Age: 54 yrs Sex: Female : 1970 Arrival Date: 07/16/2024 Time: 01:20 Bed 18 Private MD: Diagnosis: Episodic tension-type headache Presentation: 07/16 01:24 Chief complaint: Patient states: my head hurts on my left side really bad around rg5 2100hrs \T\ takes 3 tabs of alleve but it didn't help. Coronavirus screen: Client denies travel out of the [place] in the last 14 days. Ebola Screen: Patient negative for fever greater than or equal to 101.5 degrees Fahrenheit, and additional compatible Ebola Virus Disease symptoms Patient denies exposure to infectious person. Patient denies travel to an Ebola-affected area in the 21 days before illness onset. Initial Sepsis Screen: Does the patient meet any 2 criteria? No. Patient's initial sepsis screen is negative. Does the patient have a suspected source of infection? No. Patient's initial sepsis screen is negative. Risk Assessment: Do you want to hurt yourself or someone else? Patient reports no desire to harm self or others. Onset of symptoms was July 16, 2024. 01:24 Method Of Arrival: EMS: [facility] 01:24 Acuity: JAZMIN 3 5 01:24 Acuity: JAZMIN 4 rg5 Triage Assessment: 01:28 Headache History: The patient has had previous headaches and this one is similar to rg5 previous episodes. General: Appears in no apparent distress. comfortable, Behavior is calm, cooperative, appropriate for age. Pain: Complains of pain in head Pain currently is 10 out of 10 on a pain scale. Quality of pain is described as aching, Pain began 3 hours ago. Pain: Also complains of no other associated symptoms. EENT: No deficits noted. Neuro: Level of Consciousness is awake, alert, obeys commands. 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 - Infectious Disease History:: Denies. - Social history:: Smoking status: Patient reports the use of cigarette tobacco products, smokes one pack cigarettes per day. - Family history:: not pertinent. Screenin:25 [facility] ED Fall Risk Assessment (Adult) History of falling in the last 3 months, rg5 including since admission No falls in past 3 months (0 pts) Confusion or Disorientation No (0 pts) Intoxicated or Sedated No (0 pts) Impaired Gait No (0 pts) Mobility Assist Device Used No (0 pt) Altered Elimination No (0 pt) Score/Fall Risk Level 0 - 2 = Low Risk Oriented to surroundings, Maintained a safe environment, Hourly rounding (assess needs \T\ fall precautionary measures) done. 01:25 Abuse screen: Denies threats or abuse. Nutritional screening: No deficits noted. rg5 Tuberculosis screening: No symptoms or risk factors identified. Assessment: 01:31 Reassessment: see triage assessment. rg5 02:15 Reassessment: Patient and/or family updated on plan of care and expected duration. Pain rg5 level reassessed. Patient is alert, oriented x 3, equal unlabored respirations, skin warm/dry/pink. Patient states symptoms have improved. 03:07 Reassessment: Patient and/or family updated on plan of care and expected duration. Pain rg5 level reassessed. Patient is alert, oriented x 3, equal unlabored respirations, skin warm/dry/pink. Vital Signs: 01:28 BP 104 / 78; Pulse 75; Resp 17; Temp 98; Pulse Ox 100% on R/A; Weight 48.08 kg; Height rg5 5 ft. 3 in. ; Pain 10/10; 02:40 BP 110 / 77; Pulse 76; Resp 17; Pulse Ox 100% on R/A; Pain 0/10; rg5 01:28 Body Mass Index 18.78 (48.08 kg, 160.02 cm) rg5 01:28 Pain Scale: Adult rg5 02:40 Pain Scale: Adult rg5 Phuc Coma Score: 15 02:25 Eye Response: spontaneous(4). Motor Response: obeys commands(6). Verbal Response: sp4 oriented(5). Total: 15. 02:25 Eye Response: spontaneous(4). Motor Response: obeys commands(6). Verbal Response: sp4 oriented(5). Total: 15. ED Course: 07/16 01:23 Patient arrived in ED. rg5 01:23 Christophe Das, RN is Primary Nurse. rg5 01:25 Patient has correct armband on for positive identification. Bed in low position. Door rg5 closed. Noise minimized. Warm blanket given. 01:25 No provider procedures requiring assistance completed. Patient did not have IV access rg5 during this emergency room visit. 01:28 Triage completed. rg5 01:28 Arm band placed on. rg5 01:30 Arash Mesa MD is Attending Physician. sp4 03:09 Provided Education on: post er care done. rg5 Administered Medications: 01:35 Drug: Acetaminophen PO 1000 mg PO once Route: PO; rg5 03:06 Follow up: Response: No adverse reaction; Pain is decreased rg5 01:35 Drug: Ibuprofen PO 800 mg PO once Route: PO; rg5 03:06 Follow up: Response: No adverse reaction; Pain is decreased rg5 Medication: 01:25 VIS not applicable for this client. rg5 Outcome: 02:37 Discharge ordered by . sp4 03:09 Discharged to home ambulatory, rg5 03:09 Condition: stable rg5 03:09 Discharge instructions given to patient, Instructed on discharge instructions, Demonstrated understanding of instructions, 03:10 Patient left the ED. rg5 Signatures: Arash Mesa MD MD sp4 Christophe Das, RN RN rg5
--- NOTE | 2024-07-16 02:38 | EDPHYS ---
Physician Documentation [facility] Name: Dayami Espinosa Age: 54 yrs Sex: Female : 1970 Arrival Date: 07/16/2024 Time: 01:20 Bed 18 Private MD: ED Physician Arash Mesa HPI: 07/16 01:30 This 54 yrs old Female presents to ER via EMS with complaints of Headache, sp4 Worst Ever. 07/17 02:25 54-year-old female presents with tremendous headache, patient is visibly intoxicated. 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 - Infectious Disease History:: Denies. - Social history:: Smoking status: Patient reports the use of cigarette tobacco products, smokes one pack cigarettes per day. - Family history:: not pertinent. ROS: 07/17 02:25 Constitutional: Negative for fever, chills, and weight loss, positive for headache, sp4 positive for alcohol intoxication All other systems are negative, Exam: 02:25 Constitutional: This is a well developed, well nourished patient who is awake, alert, sp4 and in no acute distress. Head/Face: Normocephalic, atraumatic. Eyes: Pupils equal round and reactive to light, extra-ocular motions intact. Lids and lashes normal. Conjunctiva and sclera are not injected. Cornea within normal limits. Periorbital areas with no swelling, redness, or edema. ENT: Nares patent. No nasal discharge, no septal abnormalities noted. Tympanic membranes are normal and external auditory canals are clear. Oropharynx with no redness, swelling, or masses, exudates, or evidence of obstruction, uvula midline. Mucous membranes moist. Neck: Trachea midline, no thyromegaly or masses palpated, and no cervical lymphadenopathy. Supple, full range of motion without nuchal rigidity, or vertebral point tenderness. Chest/axilla: Normal chest wall appearance and motion. Nontender with no deformity. No lesions are appreciated. Cardiovascular: Regular rate and rhythm with a normal S1 and S2. No gallops, murmurs, or rubs. Normal PMI, no JVD. No pulse deficits. Respiratory: Lungs have equal breath sounds bilaterally, clear to auscultation and percussion. No rales, rhonchi or wheezes noted. No increased work of breathing, no retractions or nasal flaring. Abdomen/GI: Soft, with normal bowel sounds. No distension or tympany. No guarding or rebound. No evidence of tenderness throughout. Back: No spinal tenderness. No costovertebral tenderness. Skin: Warm, dry with normal turgor. Normal color with no rashes, no lesions, and no evidence of cellulitis. MS/ Extremity: Pulses equal, no cyanosis. Neurovascular intact. Full, normal range of motion. Neuro: Awake and alert, GCS 15, oriented to person, place, time, and situation. Cranial nerves II-XII grossly intact. Motor strength 5/5 in all extremities. Sensory grossly intact. Psych: Awake, alert, with orientation to person, place and time. Behavior, mood, and affect are within normal limits Vital Signs: 07/16 01:28 BP 104 / 78; Pulse 75; Resp 17; Temp 98; Pulse Ox 100% on R/A; Weight 48.08 kg; Height rg5 5 ft. 3 in. ; Pain 10/10; 02:40 BP 110 / 77; Pulse 76; Resp 17; Pulse Ox 100% on R/A; Pain 0/10; rg5 01:28 Body Mass Index 18.78 (48.08 kg, 160.02 cm) rg5 01:28 Pain Scale: Adult rg5 02:40 Pain Scale: Adult rg5 Phuc Coma Score: 07/17 02:25 Eye Response: spontaneous(4). Motor Response: obeys commands(6). Verbal Response: sp4 oriented(5). Total: 15. 02:25 Eye Response: spontaneous(4). Motor Response: obeys commands(6). Verbal Response: sp4 oriented(5). Total: 15. MDM: 07/16 01:31 Medical Screening Exam initiated sp4 07/17 02:25 Differential diagnosis: cluster headache, herpes zoster, migraine, tension headache, sp4 vasomotor headache. Data reviewed: vital signs, nurses notes. ED course: Headache improved. Patient stable for discharge. Administered Medications: 07/16 01:35 Drug: Acetaminophen PO 1000 mg PO once Route: PO; rg5 03:06 Follow up: Response: No adverse reaction; Pain is decreased rg5 01:35 Drug: Ibuprofen PO 800 mg PO once Route: PO; rg5 03:06 Follow up: Response: No adverse reaction; Pain is decreased rg5 Disposition Summary: 07/16/24 02:37 Discharge Ordered Notes: Location: Home sp4 Problem: new sp4 Symptoms: have improved sp4 Condition: Stable sp4 Diagnosis - Episodic tension-type headache sp4 Followup: sp4 - With: Private Physician - When: 7 - 10 days - Reason: Recheck today's complaints Discharge Instructions: - Discharge Summary Sheet sp4 - General Headache Without Cause sp4 Forms: - Patient Portal Instructions sp4 Signatures: Arash Mesa MD MD sp4 Christophe Das RN RN rg5
[2024-07-16 03:26] VITALS: TEMP 98; O2SAT 100
[2024-07-16 03:27] VITALS: BP 110/77
== END 2024-07-16 03:10 | disposition home or self-care (01) ==
LOC: ER 01:20
DX: G44.219 Episodic tension-type headache, not intractable (principal)
CPT/HCPCS: 99283